=== PATIENT | female | born 1960 | race Caucasian/White ===

== ENCOUNTER → 2017-04-08 12:49 | Outpatient (CLI) | payer MEDICARE, MEDICAID, SELFPAY | PROVIDERS: Family Provider Family Medicine Geriatric Medicine; PCP Family Medicine Geriatric Medicine; Visit Provider Family Medicine Geriatric Medicine | DX: R50.9 Fever, unspecified (principal) | CPT/HCPCS: 87633 ==

== ENCOUNTER → 2017-05-05 13:38 | Outpatient (CLI) | payer MEDICARE, MEDICAID, SELFPAY ==
[2017-05-05 14:57] LABS: Absolute Lymphocyte Count 2.56 X10^3/ul (0.83-4.51); Absolute Neutrophil Count 7.3 X10^3/uL (2.0-7.7); Basophil# 0.05 X10^3/uL; Basophil% 0.4 % (0-1); Eosinophil# 0.42 X10^3/uL; Eosinophils% 3.8 % (0-5); Hematocrit 33.8 % (37-47); Hemoglobin 9.9 g/dl (12.0-15.0); Lymphocyte # 2.56 X10^3/ul (4.0); Mean Corp Hgb Conc 29.3 g/gl (32-36); Mean Corpuscular Hgb 23.1 pg (27.0-32.0); Mean Platelet Vol. 10.3 fl (6.2-12.0); Monocyte% 7.2 % (0-10); Neutrophil # 7.31 X10^3/uL (2.7-7.7); Neutrophil % 65.5 % (47-70); POSITIVE COUNT NO; POSITIVE DIFFERENTIAL NO; POSITIVE MORPHOLOGY NO; Platelet Count 463 K/mm3 (150-450); RBC Distribution Width CV 19.7 % (11.6-14.6); RBC Distribution Width SD 57.1 fl (35.1-43.9); Red Blood Count 4.28 M/mm3 (4.2-5.4); White Blood Count 11.2 K/mm3 (4.4-11.0)
[2017-05-05 15:18] LABS: Vitamin D,25 Hydroxy 23.8 ng/mL (29.95-100.01)
[2017-05-05 15:26] LABS: ALB/GLOB Ratio 0.6 RATIO (0.9-2.4); AST(SGOT) 22 U/L (15-37); Alanine Aminotransfer ALT/SGPT 22 U/L (13-56); Albumin, Serum 3.2 g/dL (3.2-5.0); Alkaline Phosphatase 143 U/L (45-117); Anion Gap 8 (5-15); BUN 13 mg/dL (7-18); BUN/Creat Ratio 23.8 RATIO (10-20); Calcium,Total 8.6 mg/dL (8.5-10.1); Chloride 105 mmol/L (98-107); Creatinine, Serum 0.55 mg/dL (0.55-1.02); EST Glomerular Filtration Rate 123 mL/min (>60); Est Glom Filt Rate - Afr Amer 148 mL/min (>60); Globulin 5.2 g/dL (2.2-4.2); Glucose 78 mg/dL (74-106); Protein, Total 8.4 g/dL (6.4-8.2); Sodium Level 139 mmol/L (136-145); Thyroid Stim Hormone (TSH) 2.62 uIU/mL (0.358-3.74)
== END ==
PROVIDERS: Family Provider Family Medicine Geriatric Medicine; PCP Family Medicine Geriatric Medicine; Visit Provider Family Medicine Geriatric Medicine
DX: R53.83 Other fatigue (principal); E55.9 Vitamin D deficiency, unspecified
CPT/HCPCS: 36415; 80053; 82306; 84443; 85025

== ENCOUNTER → 2017-05-13 17:36 | Outpatient (CLI) | payer MEDICARE, MEDICAID, SELFPAY ==
[2017-05-13 17:52] LABS: Color, Urine Yellow (Yellow); Glucose, Dipstick Normal (Normal); Ketone-Dipstick Negative (Negative); Leukocyte Esterase-Dipstick Negative /ul (Negative); Nitrite-Dipstick Negative (Negative); Occult Blood-Urine Negative /ul (Negative); Protein-Dipstick Negative (Negative); Specific Gravity, Urine 1.015 (1.002-1.030); Urine Bilirubin Dipstick Negative (Negative); Urine Clarity Clear (Clear); Urine Urobilinogen Normal (Normal)
== END ==
PROVIDERS: Family Provider Family Medicine Geriatric Medicine; PCP Family Medicine Geriatric Medicine; Visit Provider Family Medicine Geriatric Medicine
DX: N39.0 Urinary tract infection, site not specified (principal)
CPT/HCPCS: 81002

== ENCOUNTER 2017-05-19 16:18 | Inpatient (IN) | payer MEDICARE, MEDICAID, SELFPAY ==
[2017-05-19] VITALS (12 sets, daily range): BP systolic 122–170; BP diastolic 86–100; PULSE 106–128; RESP 20–30; TEMP 36.6–36.9; O2SAT 93–97; BMI 28.9
--- NOTE | 2017-05-19 17:08 | EKG12_ITS ---
Test Reason : Blood Pressure : / mmHG Vent. Rate : 108 BPM Atrial Rate : 108 BPM P-R Int : 114 ms QRS Dur : 072 ms QT Int : 340 ms P-R-T Axes : -10 049 021 degrees QTc Int : 455 ms Sinus tachycardia Otherwise normal ECG Confirmed by ALISHA LEVY, VANGIE ([id number]), editor & co founder CHRISTOPHER BOONE ([id number] on 05/21/2017 3:59:09 PM Referred By: Rocky Barlow Confirmed By:VANGIE BRITO MD
--- NOTE | 2017-05-19 17:09 | ED.VISSUMM ---
- ER Visit Summary Date of Service: 05/19/17 Chief Complaint: Shortness of breath, cough History of Present Illness: The patient is a 56 F presenting from a [place] [facility] for shortness of breath, cough. Staff noted wheezing and cough yesterday. She has not had a fever. She has had rhinorrhea. No known sick contacts. She has a history of cerebral palsy and is nonambulatory at baseline. History is limited at baseline. No vomiting. No other complaints. Physical Examination: Vitals are stable. Patient is afebrile. Alert no acute distress. HEENT exam is unremarkable. Pharynx is normal. Neck is supple. Lungs are wheezing diffusely Heart is regular and tachycardic Abdomen is soft nontender nondistended. Extremities are unremarkable. Skin is warm and dry. Remainder of exam is unremarkable. Emergency Department Course and Treatment: Patient is given albuterol, Atrovent. CBC shows a white count of 13.7, hemoglobin 10.1, platelets 463. Chemistries normal. Troponin is less than 0.02. EKG is sinus tachycardia rate of 108. Chest x-ray shows no acute process. On repeat evaluation and her caregiver states that she has been complaining about chest pain. CTA chest was obtained which shows no evidence of PE. Influenza was negative. She remains persistently tachycardic in the 120s-130s. Discussed with the hospitalist for observation. Disposition: Observation Impression: Chest pain, tachycardia This note was generated with [employer] dictation software. It may contain incorrect words, spelling, and punctuation that were not noted in review of the chart prior to signing ED Disposition - Plan for ED Patient: Disposition: [facility] Chief Complaint: Shortness of Breath
--- NOTE | 2017-05-19 17:30 | RAD_ITS ---
STUDY: X-RAY CHEST REASON FOR EXAM: Female, 56 years old. Shortness of breath, cough, and wheezing TECHNIQUE: Single AP portable view of the chest. COMPARISON: Previous study of 02/11/2017 FINDINGS: A medical and health services manager partially obscures the right lung base. There is a limited inspiration. There is no demonstrated pleural abnormality. Normal size heart. There is gaseous distention of the esophagus. Normal visualized pulmonary arteries. Normal visualized aortic arch and descending thoracic aorta. Normal visualized thoracic spine. Normal visualized ribs, clavicles, and shoulders. There is no demonstrated abnormality of the visualized soft tissue structures of the upper abdomen. RAD/Chest 1 View (Portable) IMPRESSION: Limited inspiration. Gaseous distention of the esophagus. No acute cardiopulmonary disease process is seen. Electronically Signed: Franko Cuellar MD at 17:55 EDT , Service support ,
[2017-05-19] MEDS: Albuterol 2.5 MG/3 ML VIAL.NEB. INHALATION ×3 (17:40)
[2017-05-19] MEDS: Ipratropium/Albuterol Sulfate 3 ML AMPUL.NEB INHALATION ×2 (17:40→22:32)
[2017-05-19 17:51] LABS: Absolute Lymphocyte Count 2.61 X10^3/ul (0.83-4.51); Absolute Neutrophil Count 10.1 X10^3/uL (2.0-7.7); Basophil# 0.05 X10^3/uL; Basophil% 0.4 % (0-1); Eosinophil# 0.21 X10^3/uL; Eosinophils% 1.5 % (0-5); Hemoglobin 10.1 g/dl (12.0-15.0); Lymphocyte # 2.61 X10^3/ul (4.0); Mean Corp Hgb Conc 29.7 g/gl (32-36); Mean Corpuscular Hgb 23.1 pg (27.0-32.0); Mean Corpuscular Volume 77.8 fL (81-99); Monocyte# 0.78 X10^3/uL; Monocyte% 5.7 % (0-10); Neutrophil # 10.06 X10^3/uL (2.7-7.7); Neutrophil % 73.3 % (47-70); Platelet Count 463 K/mm3 (150-450); RBC Distribution Width CV 18.6 % (11.6-14.6); RBC Distribution Width SD 53.2 fl (35.1-43.9); Red Blood Count 4.37 M/mm3 (4.2-5.4); White Blood Count 13.7 K/mm3 (4.4-11.0)
[2017-05-19 17:52] LABS: POSITIVE COUNT NO; POSITIVE DIFFERENTIAL NO; POSITIVE MORPHOLOGY NO
[2017-05-19 18:10] LABS: Anion Gap 7 (5-15); BUN 9 mg/dL (7-18); BUN/Creat Ratio 14.7 RATIO (10-20); Calcium,Total 8.7 mg/dL (8.5-10.1); Chloride 104 mmol/L (98-107); Creatinine, Serum 0.61 mg/dL (0.55-1.02); EST Glomerular Filtration Rate 108 mL/min (>60); Est Glom Filt Rate - Afr Amer 130 mL/min (>60); Estimated Creatinine Clearance 89.54 ml/min; Glucose 90 mg/dL (74-106); Potassium 3.9 mmol/L (3.5-5.1); Sodium Level 140 mmol/L (136-145)
--- NOTE | 2017-05-19 19:04 | CT_ITS ---
STUDY: CTA CHEST REASON FOR EXAM: Female, 56 years old. Shortness of breath cough wheezing elevated blood pressure RADIATION DOSAGE (If Supplied By Facility): CTDIvol = ( 12.29 ) mGy, DLP = ( 453.35 ) mGycm TECHNIQUE: The examination was performed with the intravenous administration of 75ML ml of Isovue 370 contrast material. Post-processing of the angiographic images was performed, with multiplanar reformation and 3D reconstruction. Individualized dose optimization techniques were used for this CT. COMPARISON: None. FINDINGS: A pacemaker is seen in the right chest subcutaneous fat. Normal enhancement of the main pulmonary artery and right and left pulmonary arteries. Normal enhancement of the bilateral peripheral pulmonary arteries. There is no demonstrated pulmonary embolism. Normal thoracic aorta and visualized great vessels. There is no demonstrated aortic dissection. There is mild cardiomegaly. Coronary arterial calcifications are present. There is no pericardial effusion. Normal mediastinum. Normal hilar regions. There is a large hiatal hernia located to the right of midline. There is dilatation of the esophagus. Normal visualized trachea and bronchi. The lungs are well expanded. Normal pulmonary parenchyma. Normal pleura. Normal chest wall structures. Normal osseous structures. There is a large amount of stool in the colon. CT/CTA Chest W/WO Contrast IMPRESSION: Normal CTA chest examination, without a demonstrated pulmonary embolism or arterial dissection. Right-sided pacemaker noted. Coronary arterial calcifications are present. Large hiatal hernia located to the right of midline. Dilatation of the esophagus. Electronically Signed: Franko Cuellar MD at 20:09 EDT , Service support ,
--- NOTE | 2017-05-19 20:48 | HP.PCM_ITS ---
Problem List (1) Cerebral palsy Status: Chronic (2) Shortness of breath Status: Acute (3) Tachycardia Status: Acute History of Present Illness Date of Admission: 05/19/17 Chief Complaint: shortness of breath The patient is a 56 year old F [] Past Medical History Past Medical History (Chronic Problems): Chronic Problems Cerebral palsy (Chronic) Allergies amoxicillin trihydrate [From Augmentin] Adverse Reaction (Verified 09/13/15 21: 52) Unknown potassium clavulanate [From Augmentin] Adverse Reaction (Verified 09/13/15 21:52 ) Unknown Home Medications: Ambulatory Orders Medication Instructions Recorded Lactulose 30 ml PO BID 09/10/14 Levothyroxine [Synthroid] 50 mcg PO DAILY 09/10/14 Loratadine [Claritin] 10 mg PO DAILY 09/10/14 Melatonin/Pyridoxine [Melatonin 3 4.5 tab PO QHS 09/10/14 mg Tablet] Omeprazole [Prilosec] 20 mg PO DAILY 09/10/14 Senna [Senokot] 1 tablet PO BID 04/20/15 Citalopram Hydrobromide [Celexa] 20 mg PO DAILY 05/19/17 Citalopram [Celexa] 10 mg PO DAILY 05/19/17 Surgical History: no surgical history Smoking Status: Never smoker - *Family History Maternal History Items: No pertinent history Review of Systems Constitutional: Denies: Chills, Fever, Weight Change HEENT: Denies: Head Aches, Sinus Congestion, Sinus Drainage Cardiovascular: Denies: Chest Pain, Palpitations Respiratory: Denies: Cough, Shortness of breath at rest, Sputum production Gastrointestinal: Denies: Abdominal Pain, Nausea, Vomiting Genitourinary: Denies: Dysuria Musculoskeletal: Denies: Joint Pain, Joint Tenderness Skin: Denies: Rash, Wounds Neurological: Denies: Numbness, Tingling, Focal weakness Psychiatric: Denies: Anxiety, Depression, Homicidal Ideations, Suicidal Ideations Hematologic/ Lymphatic: Denies: Easy Bruising, Easy Bleeding Unable to obtain accurate/complete ROS d/t: patient is unable to communicate due to CP VTE Information - Inpt Only VTE Present on Admission: No VTE Mechan Device Prophylaxis: None VTE Pharm Prophylaxis ordered?: Yes Patient Problems: Active and Suspected Problems Shortness of breath (Acute) Tachycardia (Acute) - Physical Exam General: Alert, Cooperative HEENT: Atraumatic, Normocephalic Neck: Supple Lungs: Normal air movement, No wheeze, No rales, Diminished, Tachypneic, Wheezes Cardiovascular: Regular rate, Normal S1, Normal S2, No murmurs, Tachycardic Abdomen: Bowel Sounds Present, Soft, Non Tender Extremities: No edema, Capillary Refill Less than 3 Seconds Skin: No rashes, No breakdown Musculoskeletal: No Tenderness to Palpation of Joints or Extremities Neurological: - - patient has CP Psych/Mental Status: Anxious Vital Signs Temp Pulse Resp BP Pulse Ox 97.9 F 120 H 28 H 170/92 H 93 05/19/17 16:19 05/19/17 20:27 05/19/17 20:27 05/19/17 18:57 05/19/17 20:27 Oxygen Delivery Method Room Air Weight: 120 lb Body Mass Index (BMI) 30.0 Microbiology Past 72 Hours 05/19/17 17:25 Influenza Types A,B Direct FA (DENY) - Final Mucosa - Nasopharyngeal Laboratory Tests Past 24 Hrs 05/19/17 05/19/17 17:20 17:20 WBC 13.7 H RBC 4.37 Hgb 10.1 L Hct 34.0 L MCV 77.8 L MCH 23.1 L MCHC 29.7 L RDW 18.6 H RDW Differential 53.2 H Plt Count 463 H MPV 10.0 Immature Gran % (Auto) 0.100 Neut % (Auto) 73.3 H Lymph % (Auto) 19.0 [place] % (Auto) 5.7 Eos % (Auto) 1.5 Baso % (Auto) 0.4 Absolute Neuts (auto) 10.1 H Absolute Lymphs (auto) 2.61 Total Counted Not Reportable Sodium 140 Potassium 3.9 Chloride 104 Carbon Dioxide 29.0 Anion Gap 7 BUN 9 Creatinine 0.61 Estim Creat Clear Calc 89.54 Est GFR (MDRD) Af Amer 130 Est GFR (MDRD) Non-Af 108 BUN/Creatinine Ratio 14.7 Glucose 90 Calcium 8.7 Troponin I < 0.02 Assessment/Plan Active and Suspected Problems Shortness of breath (Acute) Tachycardia (Acute) Chronic conditions -Cerebral Palsy - History of Pacemaker Plan - admit to progressive care unit - cycle cardiac markers - treat upper respiratory bronchitis with levaquin - aspirin po q day - interrogate Pacemaker battery - if remains tachycardic then consult cardiology in am - LMWH for DVT prophylaxis - oxygen per protocol - Duoneb inh q 4 hrs prn
[2017-05-19] MEDS: Lactulose 20 GM/30 ML UDC PO (23:01)
[2017-05-19] MEDS: 0.9% NaCl Peripheral Flush Adult/Peds IV (23:01)
[2017-05-19] MEDS: Mirtazapine 15 MG Tablet 7.5 MG PO (23:01)
[2017-05-19] MEDS: Senna Tablet 1 TABLET PO (23:01)
[2017-05-19] MEDS: MELATONIN 3 MG TABLET 4.5 MG PO (23:02)
[2017-05-20] VITALS (13 sets, daily range): BP systolic 99–141; BP diastolic 60–77; PULSE 77–110; RESP 16–20; TEMP 36.4–36.7; O2SAT 94–97
[2017-05-20 04:29] LABS: Absolute Lymphocyte Count 2.11 X10^3/ul (0.83-4.51); Absolute Neutrophil Count 5.9 X10^3/uL (2.0-7.7); Basophil# 0.04 X10^3/uL; Basophil% 0.4 % (0-1); Eosinophil# 0.24 X10^3/uL; Eosinophils% 2.6 % (0-5); Hematocrit 29.1 % (37-47); Hemoglobin 8.8 g/dl (12.0-15.0); Lymphocyte # 2.11 X10^3/ul (4.0); Lymphocyte % 23.3 % (19-41); Mean Corp Hgb Conc 30.2 g/gl (32-36); Mean Corpuscular Hgb 23.6 pg (27.0-32.0); Mean Platelet Vol. 10.3 fl (6.2-12.0); Monocyte# 0.77 X10^3/uL; Monocyte% 8.5 % (0-10); Neutrophil # 5.89 X10^3/uL (2.7-7.7); Platelet Count 399 K/mm3 (150-450); RBC Distribution Width CV 18.7 % (11.6-14.6); RBC Distribution Width SD 50.9 fl (35.1-43.9); Red Blood Count 3.73 M/mm3 (4.2-5.4); White Blood Count 9.1 K/mm3 (4.4-11.0)
[2017-05-20 04:39] LABS: POSITIVE COUNT NO; POSITIVE DIFFERENTIAL NO; POSITIVE MORPHOLOGY NO
[2017-05-20 04:56] LABS: ALB/GLOB Ratio 0.6 RATIO (0.9-2.4); AST(SGOT) 12 U/L (15-37); Alanine Aminotransfer ALT/SGPT 14 U/L (13-56); Albumin, Serum 2.9 g/dL (3.2-5.0); Alkaline Phosphatase 121 U/L (45-117); Anion Gap 10 (5-15); BUN 8 mg/dL (7-18); BUN/Creat Ratio 14.2 RATIO (10-20); Calcium,Total 8.4 mg/dL (8.5-10.1); Chloride 107 mmol/L (98-107); Cholesterol 204 mg/dL (200); Creatinine, Serum 0.56 mg/dL (0.55-1.02); EST Glomerular Filtration Rate 118 mL/min (>60); Est Glom Filt Rate - Afr Amer 143 mL/min (>60); Estimated Creatinine Clearance 93.72 ml/min; Globulin 4.5 g/dL (2.2-4.2); Glucose 92 mg/dL (74-106); High Density Lipoprotein 65 mg/dL; Magnesium 2.3 mg/dL (1.6-2.6); Potassium 3.9 mmol/L (3.5-5.1); Protein, Total 7.4 g/dL (6.4-8.2); Sodium Level 142 mmol/L (136-145); Thyroid Stim Hormone (TSH) 2.22 uIU/mL (0.358-3.74); Triglycerides 39 mg/dL; Very Low Density Lipoprotein 8 mg/dL (5-40)
[2017-05-20] MEDS: Levothyroxine 50 MCG Tablet PO (05:05)
[2017-05-20] MEDS: Ipratropium/Albuterol Sulfate 3 ML AMPUL.NEB INHALATION ×4 (06:44→19:36)
--- NOTE | 2017-05-20 08:40 | CASEMGMT ---
SW reviewed chart and noted patient is from a [facility]. SW will make contact with the [facility] regarding return when ready. Carleen BOWENS MSW
--- NOTE | 2017-05-20 10:12 | CASEMGMT ---
MARIANNE called [facility] and spoke with Raven. She said it is fine for patient to return when she is ready. She said they will transport, [facility] just need to call [phone]. She also said they will need a discharge summary when they pick her up. Plan: d/c back to [facility] when ready. Carleen BOWENS MSW
[2017-05-20] MEDS: Pantoprazole Sodium 20 MG Tablet PO (10:17)
[2017-05-20] MEDS: Senna Tablet 1 TABLET PO (10:17)
[2017-05-20] MEDS: 0.9% NaCl Peripheral Flush Adult/Peds IV (10:17)
[2017-05-20] MEDS: Loratadine 10 MG Tablet PO (10:17)
[2017-05-20] MEDS: FLUoxetine 10 MG Capsule PO (10:17)
[2017-05-20] MEDS: Lactulose 20 GM/30 ML UDC PO (10:17)
[2017-05-20] MEDS: Enoxaparin 40 MG/0.4 ML Syringe SC (10:17)
[2017-05-20] MEDS: Aspirin E.C. 81 MG Tablet PO (10:17)
--- NOTE | 2017-05-20 13:44 | PCM.PROGNOTE ---
Patient Problems: Active and Suspected Problems Shortness of breath (Acute) Tachycardia (Acute) Subjective: Patient is a 56-year-old female who [facility]. Her past medical history is significant for cerebral palsy, hypothyroidism, GERD, depression and allergic rhinitis. He was brought to the emergency room on 05/19/2017 complaining of cough and shortness of breath. She later complained of chest pain as well. No signs of presentation to the emergency room were temperature 97.9, pulse rate 106, blood pressure 159/100, respiratory rate 24 and she was 97% saturated on room air. Lab revealed an elevated white blood cell count at 13.7 with a hemoglobin of 10.1. MCV was low at 77.8 and the RDW is increased at 18.6. Platelets were elevated at 463,000. BMP was unremarkable and troponin was less than 0.02. Chest x-ray showed no infiltrates but did show gaseous distention of the esophagus. A CTA of the chest was done which showed no pulmonary emboli but does show a dilated esophagus with a large hiatal hernia. A large amount of stool in the colon with gaseous distention of the colon. Influenza swab was negative. She was admitted to a monitored bed on PCU with a dx of SOB and CP. Her family and her director of casework tell me that she coughs when she eats and drinks. She has had lip smacking for as long as they can remember. she had an appt at the [facility] main campus yesterday with a Dr. Fuller.....peds division? She has been scheduled to meet with a Movie Machine Operator but, not until July. She has never had an EGD. Her speech is very difficult to understand but she can nod appropriately and understands well. Able to follow commands. Her mother is the POA and she lives in a NH. She has been losing weight recently. No vomiting. They tell me that she is allergic to PCN but, no one knows the reaction. - Physical Exam General: Alert, Cooperative, - - lip smacking HEENT: PERRLA Oral: Moist Mucosa Neck: Negative Carotid Bruits, No Nodes, Trachea Midline Lungs: Clear to auscultation - anterior and lateral Cardiovascular: Regular Rhythm, Normal S1, Normal S2, No Gallop, Tachycardic Abdomen: Soft, Non-Distended, Hypoactive Bowel Sounds, - - no guarding with palpation Extremities: No clubbing, No cyanosis, No edema Skin: No rashes Neurological: - - lip smacking, abnormal head and arm movements, sppech is unintelligible at times, some drooling Vital Signs Temp Pulse Resp BP Pulse Ox 97.6 F L 99 16 119/71 97 05/20/17 09:53 05/20/17 10:56 05/20/17 10:38 05/20/17 09:53 05/20/17 09:53 Oxygen Delivery Method Room Air Weight: 115 lb 4.828 oz Intake and Output for Last 24 Hours 05/18/17 05/19/17 05/20/17 23:59 23:59 23:59 Intake Total 129 / 129 Balance 129 / 129 Laboratory Tests Past 24 Hrs 05/19/17 05/20/17 05/20/17 22:47 03:44 03:44 WBC 9.1 RBC 3.73 L Hgb 8.8 L Hct 29.1 L MCV 78.0 L MCH 23.6 L MCHC 30.2 L RDW 18.7 H RDW Differential 50.9 H Plt Count 399 MPV 10.3 Immature Gran % (Auto) 0.200 Neut % (Auto) 65.0 Lymph % (Auto) 23.3 [place] % (Auto) 8.5 Eos % (Auto) 2.6 Baso % (Auto) 0.4 Absolute Neuts (auto) 5.9 Absolute Lymphs (auto) 2.11 Total Counted Not Reportable Sodium 142 Potassium 3.9 Chloride 107 Carbon Dioxide 25.0 Anion Gap 10 BUN 8 Creatinine 0.56 Estim Creat Clear Calc 93.72 Est GFR (MDRD) Af Amer 143 Est GFR (MDRD) Non-Af 118 BUN/Creatinine Ratio 14.2 Glucose 92 Calcium 8.4 L Magnesium 2.3 Total Bilirubin 0.40 AST 12 L ALT 14 Alkaline Phosphatase 121 H Troponin I < 0.02 Total Protein 7.4 Albumin 2.9 L Globulin 4.5 H Albumin/Globulin Ratio 0.6 L Triglycerides 39 Cholesterol 204 H LDL Cholesterol 131 H VLDL Cholesterol 8 HDL Cholesterol 65 TSH 2.22 05/20/17 05/20/17 05/20/17 03:44 06:10 12:05 WBC RBC Hgb Hct MCV MCH MCHC RDW RDW Differential Plt Count MPV Immature Gran % (Auto) Neut % (Auto) Lymph % (Auto) [place] % (Auto) Eos % (Auto) Baso % (Auto) Absolute Neuts (auto) Absolute Lymphs (auto) Total Counted Sodium Potassium Chloride Carbon Dioxide Anion Gap BUN Creatinine Estim Creat Clear Calc Est GFR (MDRD) Af Amer Est GFR (MDRD) Non-Af BUN/Creatinine Ratio Glucose Calcium Magnesium Total Bilirubin AST ALT Alkaline Phosphatase Troponin I < 0.02 < 0.02 < 0.02 Total Protein Albumin Globulin Albumin/Globulin Ratio Triglycerides Cholesterol LDL Cholesterol VLDL Cholesterol HDL Cholesterol TSH Assessment/Plan Active and Suspected Problems Shortness of breath (Acute) Tachycardia (Acute) Impressions 1. SOB and CP - in a pt with CP and severe esophageal dilatation with debris in the distal esophagus - suspect aspiration. Etiology of esophageal dilatation unknown at this time......differential would include achalasia, esophageal obstruction - food, tumor? Dr. Ferris has been consulted for an EGD. Will add clindamycin to the Levaquin to cover for aspiration. ST evaluation.....if she has no dysphagia and she can start on a diet consider a barium esophagram. 2. CP - lives [facility] a jail 3. Very poor oral care.....has decayed and broken off teeth 4. microcytic anemia - iron studies reveal a ferritin of only 7. Source of chronic blood loss not clear at this time. Since she is NPO will give Iron Sucrose IV. Check a hemoccult stool. May need a colonoscopy also. Start a PPI IV BID. 5. Constipation 6. Hypothyroidism 7. Large hiatal hernia with gastroesophageal reflux disease 8. Depression 9. Allergic rhinitis NPO consult Dr. Barrington Martinez now since the Dulcolax suppository did not work Recheck Lab and a CXR in the AM Add Clindamycin for suspected Aspiration ST eval for swallowing Will need to see a dentist in the future to have the rotted broken teeth removed....also a source of chronic aspiration and infection Code Visit Inpatient E&M: 49525 Subs Hosp L3
--- NOTE | 2017-05-20 13:53 | PN_ITS ---
Patient Problems: Active and Suspected Problems Shortness of breath (Acute) Tachycardia (Acute) Subjective: Patient is a 56-year-old female who is a resident of a [place] [facility]. Her past medical history is significant for cerebral palsy, hypothyroidism, GERD, depression and allergic rhinitis. He was brought to the emergency room on 2017 complaining of cough and shortness of breath. She later complained of chest pain as well. No signs of presentation to the emergency room were temperature 97.9, pulse rate 106, blood pressure 159/100, respiratory rate 24 and she was 97% saturated on room air. Lab revealed an elevated white blood cell count at 13.7 with a hemoglobin of 10.1. MCV was low at 77.8 and the RDW is increased at 18.6. Platelets were elevated at 463,000. BMP was unremarkable and troponin was less than 0.02. Chest x-ray showed no infiltrates but did show gaseous distention of the esophagus. A CTA of the chest was done which showed no pulmonary emboli but does show a dilated esophagus with a large hiatal hernia. A large amount of stool in the colon with gaseous distention of the colon. Influenza swab was negative. She was admitted to a monitored bed on PCU with a dx of SOB and CP. Her family and her block and case maker tell me that she coughs when she eats and drinks. She has had lip smacking for as long as they can remember. she had an appt at the [facility] main campus yesterday with a Dr. Fuller.....peds division? She has been scheduled to meet with a Music Therapy Teacher but, not until July. She has never had an EGD. Her speech is very difficult to understand but she can nod appropriately and understands well. Able to follow commands. Her mother is the POA and she lives in a NH. She has been losing weight recently. No vomiting. They tell me that she is allergic to PCN but, no one knows the reaction. - Physical Exam General: Alert, Cooperative, - - lip smacking HEENT: PERRLA Oral: Moist Mucosa Neck: Negative Carotid Bruits, No Nodes, Trachea Midline Lungs: Clear to auscultation - anterior and lateral Cardiovascular: Regular Rhythm, Normal S1, Normal S2, No Gallop, Tachycardic Abdomen: Soft, Non-Distended, Hypoactive Bowel Sounds, - - no guarding with palpation Extremities: No clubbing, No cyanosis, No edema Skin: No rashes Neurological: - - lip smacking, abnormal head and arm movements, sppech is unintelligible at times, some drooling Vital Signs Temp Pulse Resp BP Pulse Ox 97.6 F L 99 16 119/71 97 05/20/17 09:53 05/20/17 10:56 05/20/17 10:38 05/20/17 09:53 05/20/17 09:53 Oxygen Delivery Method Room Air Weight: 115 lb 4.828 oz Intake and Output for Last 24 Hours 05/18/17 05/19/17 05/20/17 23:59 23:59 23:59 Intake Total 129 / 129 Balance 129 / 129 Laboratory Tests Past 24 Hrs 05/19/17 05/20/17 05/20/17 22:47 03:44 03:44 WBC 9.1 RBC 3.73 L Hgb 8.8 L Hct 29.1 L MCV 78.0 L MCH 23.6 L MCHC 30.2 L RDW 18.7 H RDW Differential 50.9 H Plt Count 399 MPV 10.3 Immature Gran % (Auto) 0.200 Neut % (Auto) 65.0 Lymph % (Auto) 23.3 [place] % (Auto) 8.5 Eos % (Auto) 2.6 Baso % (Auto) 0.4 Absolute Neuts (auto) 5.9 Absolute Lymphs (auto) 2.11 Total Counted Not Reportable Sodium 142 Potassium 3.9 Chloride 107 Carbon Dioxide 25.0 Anion Gap 10 BUN 8 Creatinine 0.56 Estim Creat Clear Calc 93.72 Est GFR (MDRD) Af Amer 143 Est GFR (MDRD) Non-Af 118 BUN/Creatinine Ratio 14.2 Glucose 92 Calcium 8.4 L Magnesium 2.3 Total Bilirubin 0.40 AST 12 L ALT 14 Alkaline Phosphatase 121 H Troponin I < 0.02 Total Protein 7.4 Albumin 2.9 L Globulin 4.5 H Albumin/Globulin Ratio 0.6 L Triglycerides 39 Cholesterol 204 H LDL Cholesterol 131 H VLDL Cholesterol 8 HDL Cholesterol 65 TSH 2.22 05/20/17 05/20/17 05/20/17 03:44 06:10 12:05 WBC RBC Hgb Hct MCV MCH MCHC RDW RDW Differential Plt Count MPV Immature Gran % (Auto) Neut % (Auto) Lymph % (Auto) [place] % (Auto) Eos % (Auto) Baso % (Auto) Absolute Neuts (auto) Absolute Lymphs (auto) Total Counted Sodium Potassium Chloride Carbon Dioxide Anion Gap BUN Creatinine Estim Creat Clear Calc Est GFR (MDRD) Af Amer Est GFR (MDRD) Non-Af BUN/Creatinine Ratio Glucose Calcium Magnesium Total Bilirubin AST ALT Alkaline Phosphatase Troponin I < 0.02 < 0.02 < 0.02 Total Protein Albumin Globulin Albumin/Globulin Ratio Triglycerides Cholesterol LDL Cholesterol VLDL Cholesterol HDL Cholesterol TSH Assessment/Plan Active and Suspected Problems Shortness of breath (Acute) Tachycardia (Acute) Impressions 1. SOB and CP - in a pt with CP and severe esophageal dilatation with debris in the distal esophagus - suspect aspiration. Etiology of esophageal dilatation unknown at this time......differential would include achalasia, esophageal obstruction - food, tumor? Dr. Ferris has been consulted for an EGD. Will add clindamycin to the Levaquin to cover for aspiration. ST evaluation.....if she has no dysphagia and she can start on a diet consider a barium esophagram. 2. CP - lives [place] [facility] [place] 3. Very poor oral care.....has decayed and broken off teeth 4. microcytic anemia - iron studies reveal a ferritin of only 7. Source of chronic blood loss not clear at this time. Since she is NPO will give Iron Sucrose IV. Check a hemoccult stool. May need a colonoscopy also. Start a PPI IV BID. 5. Constipation 6. Hypothyroidism 7. Large hiatal hernia with gastroesophageal reflux disease 8. Depression 9. Allergic rhinitis NPO consult Dr. Barrington Martinez now since the Dulcolax suppository did not work Recheck Lab and a CXR in the AM Add Clindamycin for suspected Aspiration ST eval for swallowing Will need to see a dentist in the future to have the rotted broken teeth removed....also a source of chronic aspiration and infection Code Visit Inpatient E&M: 64442 Subs Hosp L3
[2017-05-20 14:28] LABS: Ferritin 7 ng/mL (8-252); Iron 55 ug/dL (50-170); Iron Binding Capacity,Total 483 ug/dL (250-450); PERCENT IRON SATURATION 11.4 % (15.0-55.0)
[2017-05-20] MEDS: Bisacodyl 10 MG Suppository RECTAL (14:29)
[2017-05-20 14:42] LABS: Immature Platelet Fraction 1.9 % (1.0-7.9); RET-HE 22.8 pg (30-35); Reticulocyte Count 0.95 % (0.5-1.5)
[2017-05-20 18:12] LABS: M R Staph aureus DNA By PCR Negative (Negative); Probe Check PASS; Specimen Processing Control PASS
[2017-05-20] MEDS: Fleet Enema 1 ML RECTAL (23:05)
[2017-05-21] VITALS (18 sets, daily range): BP systolic 109–132; BP diastolic 44–80; PULSE 77–104; RESP 16–22; TEMP 36.3–37.1; O2SAT 94–96
--- NOTE | 2017-05-21 05:55 | RAD_ITS ---
STUDY: X-RAY CHEST REASON FOR EXAM: Female, 56 years old. Cough, shortness of breath, history of cerebral palsy. TECHNIQUE: Single AP portable view of the chest. COMPARISON: 05/19/2017 chest x-ray and CT chest FINDINGS: Stable electronic type device over right base and hemithorax. There are superimposed monitor leads. Resolution of esophageal distention. No change of shallow inspiratory level. There is no focal parenchymal abnormality. There is no demonstrated pleural abnormality. Normal size heart. Normal mediastinum and shanell. Normal visualized pulmonary arteries. Normal visualized aortic arch and descending thoracic aorta. Normal visualized thoracic spine. Normal visualized ribs, clavicles, and shoulders. There is no demonstrated abnormality of the visualized soft tissue structures of the upper abdomen. RAD/Chest 1 View (Portable) IMPRESSION: No pulmonary edema, congestive heart failure or confluent pneumonia. Resolution of previous esophageal distention. Electronically Signed: Yessica Hernandez MD at 6:42 EDT , Service support ,
[2017-05-21 05:57] LABS: Absolute Neutrophil Count 4.3 X10^3/uL (2.0-7.7); Basophil# 0.06 X10^3/uL; Basophil% 0.7 % (0-1); Eosinophil# 0.33 X10^3/uL; Eosinophils% 4.1 % (0-5); Hematocrit 31.9 % (37-47); Hemoglobin 9.7 g/dl (12.0-15.0); Lymphocyte % 29.7 % (19-41); Mean Corp Hgb Conc 30.4 g/gl (32-36); Mean Corpuscular Hgb 23.9 pg (27.0-32.0); Mean Corpuscular Volume 78.6 fL (81-99); Mean Platelet Vol. 10.3 fl (6.2-12.0); Monocyte% 12.4 % (0-10); Neutrophil # 4.27 X10^3/uL (2.7-7.7); Platelet Count 409 K/mm3 (150-450); RBC Distribution Width CV 19.1 % (11.6-14.6); RBC Distribution Width SD 52.4 fl (35.1-43.9); Red Blood Count 4.06 M/mm3 (4.2-5.4); White Blood Count 8.1 K/mm3 (4.4-11.0)
[2017-05-21 06:03] LABS: Anion Gap 8 (5-15); BUN 11 mg/dL (7-18); BUN/Creat Ratio 17.8 RATIO (10-20); Chloride 107 mmol/L (98-107); Creatinine, Serum 0.62 mg/dL (0.55-1.02); EST Glomerular Filtration Rate 106 mL/min (>60); Est Glom Filt Rate - Afr Amer 128 mL/min (>60); Estimated Creatinine Clearance 84.65 ml/min; Glucose 92 mg/dL (74-106); Magnesium 2.4 mg/dL (1.6-2.6); Phosphorus 3.8 mg/dL (2.5-4.9); Potassium 4.3 mmol/L (3.5-5.1); Sodium Level 142 mmol/L (136-145)
[2017-05-21 06:11] LABS: POSITIVE COUNT NO; POSITIVE DIFFERENTIAL NO; POSITIVE MORPHOLOGY NO
[2017-05-21] MEDS: Ipratropium/Albuterol Sulfate 3 ML AMPUL.NEB INHALATION ×3 (06:57→19:55)
--- NOTE | 2017-05-21 09:17 | PCM.CONS.GEN ---
Problem List (1) Cerebral palsy Status: Chronic Reason for Consult Date of Consultation: 05/20/17 History of Present Illness: The patient is a 56 year old F with a history of cerebral palsy, some communicative difficulties, but understands and can answer. Patient seen with caregivers present and spoke with the son via the phone. The patient has a long standing history of chest pain and likely reflux symptoms. More recently, [facility], but the family is uncertain if this is correct. She was seen by Dr. Fuller at [facility] in the bariatric/foregut surgery department on May 19, 2017. SHe has a diagnosis of hiatal hernia and esophageal dysphagia. There is an obvious concern for aspiration. It was felt that she would be at high risk for hiatal hernia surgery and given the degree of esophageal dilation, concern for aspiration and esophageal motility disorder was considered. It was recommended not to have surgical intervention and to refer to GI swallowing center for further work up. She then presented with chest pain. CTA Chest demonstrated no PE but a large hiatal hernia and a dilated esophagus. She underwent a swallowing evaluation today without significant aspiration Past Medical History Past Medical History (Chronic Problems): Chronic Problems Cerebral palsy (Chronic) Allergies amoxicillin trihydrate [From Augmentin] Adverse Reaction (Verified 09/13/15 21:52) Unknown potassium clavulanate [From Augmentin] Adverse Reaction (Verified 09/13/15 21:52) Unknown Home Medications: Ambulatory Orders Medication Instructions Recorded Lactulose 30 ml PO BID 09/10/14 Levothyroxine [Synthroid] 50 mcg PO DAILY 09/10/14 Loratadine [Claritin] 10 mg PO DAILY 09/10/14 Melatonin/Pyridoxine [Melatonin 3 4.5 mg PO QHS 09/10/14 mg Tablet] Omeprazole [Prilosec] 20 mg PO DAILY 09/10/14 Senna [Senokot] 1 tablet PO BID 04/20/15 Fluoxetine [Prozac] 10 mg PO DAILY 05/19/17 Mirtazapine 7.5 mg PO QHS 05/19/17 Surgical History: no surgical history Smoking Status: Never smoker - *Family History Maternal History Items: No pertinent history Patient Problems: Active and Suspected Problems Shortness of breath (Acute) Tachycardia (Acute) - Physical Exam General: Alert, Oriented x3, Cooperative, - - but difficult to communicate due to CP - answers yes and no questions Lungs: Clear to auscultation, Normal air movement Cardiovascular: Regular rate, Regular Rhythm Abdomen: Bowel Sounds Present, Soft, Non Tender Vital Signs Temp Pulse Resp BP Pulse Ox 97.3 F L 77 18 109/80 94 05/21/17 05:21 05/21/17 07:11 05/21/17 09:11 05/21/17 05:21 05/21/17 07:30 Oxygen Delivery Method Room Air Intake and Output for Last 24 Hours 05/19/17 05/20/17 05/21/17 23:59 23:59 23:59 Intake Total 366 / 366 Balance 366 / 366 Laboratory Tests Past 24 Hrs 05/20/17 05/21/17 05/21/17 14:47 05:05 05:05 WBC 8.1 RBC 4.06 L Hgb 9.7 L Hct 31.9 L MCV 78.6 L MCH 23.9 L MCHC 30.4 L RDW 19.1 H RDW Differential 52.4 H Plt Count 409 MPV 10.3 Immature Gran % (Auto) 0.100 Neut % (Auto) 53.0 Lymph % (Auto) 29.7 [place] % (Auto) 12.4 H Eos % (Auto) 4.1 Baso % (Auto) 0.7 Absolute Neuts (auto) 4.3 Absolute Lymphs (auto) 2.40 Total Counted Not Reportable Sodium 142 Potassium 4.3 Chloride 107 Carbon Dioxide 27.0 Anion Gap 8 BUN 11 Creatinine 0.62 Estim Creat Clear Calc 84.65 Est GFR (MDRD) Af Amer 128 Est GFR (MDRD) Non-Af 106 BUN/Creatinine Ratio 17.8 Glucose 92 Calcium 9.0 Phosphorus 3.8 Magnesium 2.4 MRSA (PCR) Negative Assessment/Plan Active and Suspected Problems Shortness of breath (Acute) Tachycardia (Acute) dysphagia, weight loss, abnormal GI tract imaging, no aspiration I plan to perform upper endoscopy. THe family understands the risks, benefits possible complications and alternatives. I will not plan for PEG tube at this time. patient may need manometry.
--- NOTE | 2017-05-21 09:22 | CON.PCM_ITS ---
Problem List (1) Cerebral palsy Status: Chronic Reason for Consult Date of Consultation: 05/20/17 History of Present Illness: The patient is a 56 year old F with a history of cerebral palsy, some communicative difficulties, but understands and can answer. Patient seen with caregivers present and spoke with the son via the phone. The patient has a long standing history of chest pain and likely reflux symptoms. More recently, she has seemed to have [facility] loss [facility] the [facility], but the family is uncertain if this is correct. She was seen by Dr. Fuller at [facility] in the bariatric/foregut surgery department on May 19, 2017. SHe has a diagnosis of hiatal hernia and esophageal dysphagia. There is an obvious concern for aspiration. It was felt that she would be at high risk for hiatal hernia surgery and given the degree of esophageal dilation, concern for aspiration and esophageal motility disorder was considered. It was recommended not to have surgical intervention and to refer to GI swallowing center for further work up. She then presented with chest pain. CTA Chest demonstrated no PE but a large hiatal hernia and a dilated esophagus. She underwent a swallowing evaluation today without significant aspiration Past Medical History Past Medical History (Chronic Problems): Chronic Problems Cerebral palsy (Chronic) Allergies amoxicillin trihydrate [From Augmentin] Adverse Reaction (Verified 09/13/15 21: 52) Unknown potassium clavulanate [From Augmentin] Adverse Reaction (Verified 09/13/15 21:52 ) Unknown Home Medications: Ambulatory Orders Medication Instructions Recorded Lactulose 30 ml PO BID 09/10/14 Levothyroxine [Synthroid] 50 mcg PO DAILY 09/10/14 Loratadine [Claritin] 10 mg PO DAILY 09/10/14 Melatonin/Pyridoxine [Melatonin 3 4.5 mg PO QHS 09/10/14 mg Tablet] Omeprazole [Prilosec] 20 mg PO DAILY 09/10/14 Senna [Senokot] 1 tablet PO BID 04/20/15 Fluoxetine [Prozac] 10 mg PO DAILY 05/19/17 Mirtazapine 7.5 mg PO QHS 05/19/17 Surgical History: no surgical history Smoking Status: Never smoker - *Family History Maternal History Items: No pertinent history Patient Problems: Active and Suspected Problems Shortness of breath (Acute) Tachycardia (Acute) - Physical Exam General: Alert, Oriented x3, Cooperative, - - but difficult to communicate due to CP - answers yes and no questions Lungs: Clear to auscultation, Normal air movement Cardiovascular: Regular rate, Regular Rhythm Abdomen: Bowel Sounds Present, Soft, Non Tender Vital Signs Temp Pulse Resp BP Pulse Ox 97.3 F L 77 18 109/80 94 05/21/17 05:21 05/21/17 07:11 05/21/17 09:11 05/21/17 05:21 05/21/17 07:30 Oxygen Delivery Method Room Air Intake and Output for Last 24 Hours 05/19/17 05/20/17 05/21/17 23:59 23:59 23:59 Intake Total 366 / 366 Balance 366 / 366 Laboratory Tests Past 24 Hrs 05/20/17 05/21/17 05/21/17 14:47 05:05 05:05 WBC 8.1 RBC 4.06 L Hgb 9.7 L Hct 31.9 L MCV 78.6 L MCH 23.9 L MCHC 30.4 L RDW 19.1 H RDW Differential 52.4 H Plt Count 409 MPV 10.3 Immature Gran % (Auto) 0.100 Neut % (Auto) 53.0 Lymph % (Auto) 29.7 [place] % (Auto) 12.4 H Eos % (Auto) 4.1 Baso % (Auto) 0.7 Absolute Neuts (auto) 4.3 Absolute Lymphs (auto) 2.40 Total Counted Not Reportable Sodium 142 Potassium 4.3 Chloride 107 Carbon Dioxide 27.0 Anion Gap 8 BUN 11 Creatinine 0.62 Estim Creat Clear Calc 84.65 Est GFR (MDRD) Af Amer 128 Est GFR (MDRD) Non-Af 106 BUN/Creatinine Ratio 17.8 Glucose 92 Calcium 9.0 Phosphorus 3.8 Magnesium 2.4 MRSA (PCR) Negative Assessment/Plan Active and Suspected Problems Shortness of breath (Acute) Tachycardia (Acute) dysphagia, weight loss, abnormal GI tract imaging, no aspiration I plan to perform upper endoscopy. THe family understands the risks, benefits possible complications and alternatives. I will not plan for PEG tube at this time. patient may need manometry.
[2017-05-21] MEDS: 0.9% NaCl Peripheral Flush Adult/Peds IV ×2 (10:16→18:09)
[2017-05-21] MEDS: Enoxaparin 40 MG/0.4 ML Syringe SC (11:01)
--- NOTE | 2017-05-21 14:00 | SP.MBSS_ITS ---
PRIMARY / SECONDARY DIAGNOSIS: dysphagia (R13.12, R13.14) REFERRING PHYSICIAN: Dr. Soumya Murphy MD CURRENT DIET: NPO pending results, regular thin prior to admission. DENTITION: natural; suboptimal repair MENTAL STATUS: impaired RESPIRATORY STATUS: O2 via room air PREVIOUS MODIFIED BARIUM SWALLOW STUDY: none REASON FOR REFERRAL: Patient is a 56 year old female referred for a modified barium swallow (MBS) study to objectively assess the Patients oropharyngeal swallow function under fluoroscopy secondary to suspected moderate to severe oropharyngeal dysphagia and suspected esophageal dysphagia attributed to the diagnosis of cerebral palsy , with Patient considered a higher risk for silent aspiration. Patient admitted to [facility] on 05/19/2017 due to persistent coughing and shortness of breath with suspected aspiration. Physician documentation reveals concerns with aspiration well prior to admission, progressive weight loss, considerations for alternative means of nutrition. Spoke with Patients family member, reports workup previously underway in regards to esophageal motility concerns via internet webmaster at [facility], to include MBS completion, though [facility] apparently neglected to follow up with planned assessments (MBS scheduled at [facility] in October of 2016, no call / no show documented in EMR) and [facility], with little knowledge of planned and / or completed recommended interventions reported by family. Patient reported to cough during intake of all textures, requires total feed with specialty cup / silverware, and consistently takes upwards of 1 hour to finish meals. Patient accompanied by her family / caregiver to optimize PO intake trials due to complexity of needs. 05/19/2017 CXR revealed limited inspiration; gaseous distention of the esophagus ; no acute cardiopulmonary disease process is seen. 05/19/2017 CTA revealed normal CTA chest examination, without a demonstrated pulmonary embolism or arterial dissection; right-sided pacemaker noted; coronary arterial calcifications are present; large hiatal hernia located to the right of midline with dilatation of the esophagus. 05/21/2017 CXR revealed no pulmonary edema, congestive heart failure or confluent pneumonia; resolution of previous esophageal distention MEDICAL HISTORY: Cerebral palsy, hypothyroidism, gastroesophageal reflux disease, depression, and allergic rhinitis STUDY FINDINGS: Patient participated in a Modified Barium Swallow (MBS) study on 05/21/2017. Dr. Justcie was the radiologist present for this evaluation. This study was recorded in the lateral view and images were sent to PACs for storage. The following consistencies were presented to this patient for analysis of oropharyngeal swallow function: thin liquids, pudding, and a crumbled mechanical soft textured, Chani Doone cookie. Results of the MBS are as follows: PENETRATION / ASPIRATION SCALE (BRANDT): 1 = does not enter airway 2 = enters airway/above vocal folds/ejected 3 = enters airway/above vocal folds/not ejected 4 = enters airway/contacts vocal folds/ejected 5 = enters airway/contacts vocal folds/not ejected 6 = enters airway/below vocal folds/ejected 7 = enters airway/below vocal folds/not ejected despite effort 8 = enters airway/below vocal folds/no effort PENETRATION / ASPIRATION SCALE (SCORE): Thin liquids via cup (sequential swallows): 1 Thin liquids via cup (sequential swallows): 2 Thin liquids via cup (sequential swallows): 2 Thin liquids via cup (single sip): 1 Thin liquids via cup (single sip): 1 Thin liquids via cup (single sip): 1 Pudding via spoon: 1 Mechanical soft textured cookie: 1 Thin liquids via cup (single sip): 1 * Frequent movement complicating all images captured IMPRESSION: DIAGNOSIS: moderate oropharyngeal dysphagia (R13.12) ORAL PHASE CHARACTERIZED BY: LABIAL SEAL: escape beyond mid chin TONGUE CONTROL DURING BOLUS MANIPULATION: intermittent posterior escape of greater than half of bolus BOLUS PREPARATION / MASTICATION: minimal chewing/mashing with majority of bolus unchewed BOLUS TRANSPORT / LINGUAL MOTION: repetitive/disorganized tongue motion with strong tongue thrust ORAL RESIDUE: trace residue lining oral structures PHARYNGEAL PHASE CHARACTERIZED BY: INITIATION OF PHARYNGEAL SWALLOW: bolus head in pyriforms at first hyoid excursion SOFT PALATE ELEVATION: no bolus between soft palate and pharyngeal wall LARYNGEAL ELEVATION: complete superior movement of thyroid cartilage with complete approximation of arytenoids cartilage to epiglottic petiole ANTERIOR HYOID EXCURSION: partial anterior movement EPIGLOTTIC MOVEMENT: complete epiglottic inversion LARYNGEAL VESTIBULE CLOSURE AT HEIGHT OF SWALLOW: complete laryngeal vestibule closure with no air/contrast in laryngeal vestibule PHARYNGEAL STRIPPING WAVE: pharyngeal stripping wave present / complete PHARYNGOESOPHAGEAL SEGMENT OPENING: partial distension and partial duration; partial obstruction of flow TONGUE BASE RETRACTION: trace column of contrast between tongue base and posterior pharyngeal wall PHARYNGEAL RESIDUE: trace residue within or on pharyngeal structures ESOPHAGEAL PHASE CHARACTERIZED BY: ESOPHAGEAL BOLUS CLEARANCE IN THE UPRIGHT POSITION: no apparent dysmotility EFFECTS OF TREATMENT STRATEGIES ATTEMPTED: Reduced bolus size = effective Reduced rate of intake = effective DIET TEXTURE RECOMMENDATIONS: Will recommend a pureed textured, thin liquid diet. COMPENSATORY STRATEGIES RECOMMENDED: TOTAL FEED, very small sips by specialty cup provided by caregivers, small bites by spoon provided by caregivers, alternate between bites and sips, seated upright at 90 degrees during PO intake, remain upright for at min 60 min post intake, crush medication in applesauce, oral care provided following all intake INTERPRETATION OF RESULTS: Patient presents with mild oropharyngeal dysphagia (R13.12) moderate oropharyngeal dysphagia (R13.12) attributed to the diagnosis of cerebral palsy. Oral preparatory phase marked by complete inability to independently feed, with frequent involuntary movements and inability to maintain positioning complicating intake. Oral phase primarily marked by suboptimal lingual control / lingual discoordination with noted strong lingual protrusions (tongue thrust) significantly complicating oral phase manipulation and transport, resulting in intermittent premature posterior bolus loss and intermittent anterior bolus loss in addition to aerophagia; and mastication inefficiency with overall significant discoordination and ineffective mastication. Pharyngeal phase primarily marked by impaired pharyngeal swallow onset timing resulting in suboptimal bolus location upon swallow onset contributing to prandial penetration of thin liquids during sequential trials; consistent laryngeal vestibule pressure generated to expel penetrated material with somewhat protective laryngeal posturing with the larynx approximately 75% elevated prior to consumption. Tolerance of thin liquids improved with bolus volume adjustments. Frequent audible gulping and somewhat gasping sounds and intermittent coughing appreciated throughout trials, with no accompanying penetration or aspiration events, complicating assessment at bedside. Cough response likely insufficient to expel penetrated material / laryngotracheal aspiration. Prominent non-obstructive cricopharyngeal bar located at the C-6 level. No aspiration appreciated throughout trials, unable to definitively rule out silent aspiration. Patient at higher risk of pulmonary complications associated with aspiration due to the Patients non-ambulatory status and suboptimal dentition. RECOMMENDATIONS: Patient requires intensive skilled speech-language intervention targeting continued diet texture management; training and implementation of recommended compensatory strategies; Patient and caregiver education regarding dysphagia associated with cerebral palsy, strategies to promote optimal safety during PO intake ADDITIONAL COMMENTS/RECOMMENDATIONS: Results and recommendations were discussed with the Patient immediately following MBS completion, with the Patient verbalizing understanding and agreement with all recommendations and education provided. IMAGE COUNT: [id number]
--- NOTE | 2017-05-21 14:10 | RAD_ITS ---
STUDY: SWALLOWING STUDY REASON FOR EXAM: Female, 56 years old. Dysphagia. TECHNIQUE: The examination was performed with Speech Pathology in attendance. Under fluoroscopic observation, the patient ingested thin barium, thick barium, barium pudding, and barium coated cracker. FLUOROSCOPY TIME: 1:35 minutes/seconds. 2276 spot images were obtained. RADIOLOGIST INVOLVEMENT: Radiologist was present and providing direct supervision. COMPARISON: None. FINDINGS: The following was observed during swallowing of the various mixtures of barium: Thin Barium: Minimal penetration with ingestion of thin liquids with ejection. Barium Pudding: There was no evidence of aspiration or laryngeal penetration. Barium Coated Cracker: There was no evidence of aspiration or laryngeal penetration. RAD/Swallowing Function w/Video IMPRESSION: Minimal penetration with ejection upon ingestion of thin liquids. The swallow study findings were discussed with the patient by the speech pathologist at the conclusion of the examination. Please see speech pathology report for more information and recommendations. Electronically Signed: Colten Justice MD at 14:56 EDT Tel [phone], Service support ,
[2017-05-22] VITALS (11 sets, daily range): BP systolic 101–140; BP diastolic 60–125; PULSE 80–124; RESP 16–21; TEMP 36.1–36.8; O2SAT 93–97
--- NOTE | 2017-05-22 | IMM_PTH ---
PATIENT: SUNNI GUIDRY LOC: [facility] U#:[id number] AGE/SX: 56/F ROOM: [facility] RE05/20/[address]: Dr. Allyn Murphy DO : 1960 BED: 1 DIS: 05/22/2017 SPEC #: [id number] RECD: 05/23/17 14:48 STATUS: SOUT REQ #: [id number] DANIEL: 05/22/17 00:[address]: Jalen Ferris DEPT: IMMUNOHISTOCHEMISTRY RECD BY: Roxana Patel ENTERED: 05/23/17 14:48 SP TYPE: IMMUNO OTHR DR: DO Dr. Miguel A Gambino MD Dr. Tai Chi Kwok, MD Tissues: A - Stomach, NOS Procedures: H Pylori (initial) Comments: @ Ordering doctor for H.PYLORI edited from to DR.RGUTTM aSntoro by SPENSER at 05/23/17 1459 @ Submitting doctor edited from to DR.RGUTTM Santoro by SPENSER at 05/23/17 1459 PHYSICIAN & INSTITUTION [place] [id number] SPECIMEN INFORMATION: Tissue Source: A ? Antral biopsy Clinical Info: Dysphagia, weight loss Specimen Number: [id number] CPT code: 83878 METHODOLOGY: Deparaffinized sections of prefer/formalin-fixed tissue or PAP/DQ stained slides are incubated with monoclonal/polyclonal antibodies/oligonucleotide probes. Localization is made via biotin free immunoperoxidase method. Appropriate controls are performed and reacted as expected. Results on target cell population are indicated in the following table: RESULTS: ANTIBODY / CLONE RESULT Block A H Pylori (polyclonal) negative These tests were developed and their performance characteristics determined by [facility]. They may not have been cleared or approved by the U.S. Food and Drug Administration. The FDA has determined that such clearance or approval is not necessary. INTERPRETATION: A. Antral biopsy: Negative for Helicobacter pylori organisms. AM:andres 05/26/17
--- NOTE | 2017-05-22 07:15 | EGD_PTH ---
PATIENT: SUNNI GUIDRY LOC: [facility] U#:[id number] AGE/SX: 56/F ROOM: [facility] RE05/20/[address]: Dr. Allyn Murphy DO : 1960 BED: 1 DIS: 05/22/2017 SPEC #: [id number] RECD: 05/22/17 09:35 STATUS: LOIDA KENYATTA #: [id number] DANIEL: 05/22/17 07:[address]: Jalen Ferris DEPT: SURGICAL PATHOLOGY RECD BY: Alina Welsh ENTERED: 05/22/17 11:04 SP TYPE: EGD BIOPSY OTHR DR: DO Dr. Miguel A Gambino MD Dr. Tai Chi Kwok, MD Tissues: A - Gastric mucous membrane B - Esophageal mucous membrane Procedures: Special Stain Group II Surgery Specimen Level IV Alcian Blue/PAS (control) Comments: @ Ordering doctor for SUIV edited from to @ by SPENSER at 05/23/17 0749 @ Submitting doctor edited from to @ by FARHANOD at 05/23/17 0749 HEADER OPERATION: EGD with biopsy PRE-OP DIAGNOSIS: Dysphagia, weight loss TISSUE SUBMITTED: A. Antral biopsy, B. Esophageal biopsy MICROSCOPIC DIAGNOSIS A. Gastric antrum, biopsy: Mild to moderate chronic gastritis. B. 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 No evidence of dysplasia. AM:andres 05/23/17 COMMENT A. The results of immunohistochemistry for Helicobacter pylori will be reported separately ([id number]). B. Squamous epithelium is not represented in the biopsy. Clinical correlation is suggested. Alcian blue/PAS stain with matched control supports the above diagnosis. MICROSCOPIC DESCRIPTION Slides are reviewed. GROSS DESCRIPTION A - Received in fixative is one container labeled with the patient's name and designated antral biopsy. The specimen consists of one irregular fragment of light south soft tissue that measures 0.4 x 0.3 x 0.1 cm. The specimen is totally submitted in one cassette. B - Received in fixative is one container labeled with the patient's name and designated esophageal biopsy. The specimen consists of one irregular fragment of light south soft tissue that measures 0.3 x 0.2 x 0.1 cm. The specimen is totally submitted in one cassette. / SJ:rg 05/22/17 TC:3 CPT: 58273 x2, 19981
--- NOTE | 2017-05-22 08:18 | PCM.OPRPT ---
Problem List (1) Cerebral palsy Status: Chronic Report of Operation Date of Procedure: 05/22/17 Pre-Operative Diagnosis: cerebral palsy, chest pain, reflux, imaging demonstrating large hiatal hernia and esophageal dilatation Post-Operative Diagnosis: cerebral palsy, chest pain, reflux, imaging demonstrating large hiatal hernia and esophageal dilatation, - type I hiatal hernia with approximately two thirds of the stomach above the diaphragmatic hiatus, shortened esophagus with GE junction, estimated to be at approximately 25-30 cm, likely aspirating saliva intermittently but no signs of bilious aspiration Surgery/Procedure Performed:: EGD with biopsy Type of Anesthesia:: MAC Anesthesiologist: Maximiliano Mccoy - ASA3 Specimen's removed: gastric, distal esophagus Description of Procedure: The patient was brought to the endoscopy suite. Sign in was performed verifying patient, site, planned procedure, critical nursing information, the patient was monitored with cardiac, pulse oximetric, and blood pressure monitoring devices. Monitored anesthetic care was provided for sedation. Following IV sedation and after the oropharynx was sprayed with Cetacaine spray, a video gastroscope was inserted in the oropharynx and advanced down the esophagus without difficulty. The scope was advanced through the stomach, through the pylorus through the duodenum to the proximal jejunum. the scope was advanced through a dilated esophagus to the stomach, through the pylorus to the fourth portion of duodenum. The entire duodenum appeared unremarkable. As the scope was withdrawn, the antral region appeared unremarkable to possibly minimal gastritis. A biopsy was taken for H. pylori and pathology. attempts to dilate the stomach and passed below the costal margin to assess if the feeding tube could be placed in the future, did not demonstrate a nice access point, both to the patient's rapid breathing and spasticity secondary to her cerebral palsy and likely confirmed the fact that on CT scan, two thirds of her stomach are above the diaphragmatic hiatus and the distal stomach seems to be underneath the costal margin. The scope was retroflexed, the anticipated large type I hiatal hernia was noted. There were no signs of marginal ulceration or gastritis at the diaphragmatic hiatus. The GE junction was widely dilated. The esophagus seemed obviously shortened. The retroflexed scope was actually able to be brought up into the esophagus through the GE junction, illustrating the degree of esophageal dilatation. Clearly there was no narrowing at the GE junction consistent with achalasia. As the scope was straightened and withdrawn, the Z line appeared to be at approximately 25-30 cm again, this was challenging to truly assess due to the patient's spasticity and breathing causing significant motion. further, the degree of dilatation of the distal esophagus made a challenging to truly assess what the GE junction site was. A biopsy was performed just beyond the Z line and sent to pathology. There seemed to be esophageal peristalsis as the esophagus was examined, but again the esophagus was widely dilated. The patient tolerated the procedure well and was brought to recovery in stable condition. I would recommend starting the patient on a proton pump inhibitor and recommend referral to the GI motility section at [facility] given the challenges of trying to further elicit the origin of her esophageal pathology and to assess underlying motility issues.
[2017-05-22] MEDS: Ipratropium/Albuterol Sulfate 3 ML AMPUL.NEB INHALATION (10:35)
[2017-05-22] MEDS: 0.9% NaCl Peripheral Flush Adult/Peds IV (10:39)
[2017-05-22] MEDS: Enoxaparin 40 MG/0.4 ML Syringe SC (10:40)
--- NOTE | 2017-05-22 14:51 | CASEMGMT ---
Social Work Clinical update faxed to [facility] at [facility]. Pt will be accepted back when medically ready. YAKOV Jarrett
--- NOTE | 2017-05-22 16:34 | PCM.DC ---
- Discharge Diagnoses Current Active Problems: Current Active and Chronic Problems Cerebral palsy (Chronic) Shortness of breath (Acute) Tachycardia (Acute) You will use the following diet at home:: Other - Small meals Total feed Small sips from specialty cup Small bites via a 1/2 tsp Must be upright at 90? during p.o. intake and remain upright at 90? for 60 minutes after eating All medications should be crushed and mixed in a pur?e All foods should be pureed. she can have thin liquids. Your food should be the consistency of: Puree Your liquids should be the consistency of: Regular/Thin Discharge Activity: Return to Normal Activity Call your doctor if you observe: Fever of 101 or Higher, Shortness of breath Additional Instructions: Dr. Ferris is trying to make arrangements for her to see a propeller engineer the [facility] about the dilated esophagus. Please follow up with Dr. Ferris in his office in 1-2 weeks. Allergies/Adverse Reactions: Allergies amoxicillin trihydrate [From Augmentin] Adverse Reaction (Verified 09/13/15 21:52) Unknown potassium clavulanate [From Augmentin] Adverse Reaction (Verified 09/13/15 21:52) Unknown Medications to take at Discharge Lactulose 30 ml PO BID 09/10/14 Levothyroxine [Synthroid] 50 mcg PO DAILY 09/10/14 Loratadine [Claritin] 10 mg PO DAILY 09/10/14 Melatonin/Pyridoxine [Melatonin 3 mg Tablet] 4.5 mg PO QHS 09/10/14 Senna [Senokot] 1 tablet PO BID 04/20/15 Fluoxetine [Prozac] 10 mg PO DAILY 05/19/17 Mirtazapine 7.5 mg PO QHS 05/19/17 Omeprazole [Prilosec] 20 mg PO DAILY #60 cap 05/22/17 The following prescriptions were given: Omeprazole [Prilosec] 20 mg PO DAILY #60 cap Primary Care Physician: Rocky Barlow Chi, MD [Primary Care Provider] - Please follow up with your Primary Care Physician in: 5-7 days Please Follow Up With: Jalen Ferris MD When: 2 weeks Proposed Discharge Date: 05/22/17
--- NOTE | 2017-05-22 16:44 | DCINST_ITS ---
- Discharge Diagnoses Current Active Problems: Current Active and Chronic Problems Cerebral palsy (Chronic) Shortness of breath (Acute) Tachycardia (Acute) You will use the following diet at home:: Other - Small meals Total feed Small sips from specialty cup Small bites via a 1/2 tsp Must be upright at 90? during p.o. intake and remain upright at 90? for 60 minutes after eating All medications should be crushed and mixed in a pur?e All foods should be pureed. she can have thin liquids. Your food should be the consistency of: Puree Your liquids should be the consistency of: Regular/Thin Discharge Activity: Return to Normal Activity Call your doctor if you observe: Fever of 101 or Higher, Shortness of breath Additional Instructions: Dr. Ferris is trying to make arrangements for her to see a tear down matcher the [facility] about the dilated esophagus. Please follow up with Dr. Ferris in his office in 1-2 weeks. Allergies/Adverse Reactions: Allergies amoxicillin trihydrate [From Augmentin] Adverse Reaction (Verified 09/13/15 21: 52) Unknown potassium clavulanate [From Augmentin] Adverse Reaction (Verified 09/13/15 21:52 ) Unknown Medications to take at Discharge Lactulose 30 ml PO BID 09/10/14 Levothyroxine [Synthroid] 50 mcg PO DAILY 09/10/14 Loratadine [Claritin] 10 mg PO DAILY 09/10/14 Melatonin/Pyridoxine [Melatonin 3 mg Tablet] 4.5 mg PO QHS 09/10/14 Senna [Senokot] 1 tablet PO BID 04/20/15 Fluoxetine [Prozac] 10 mg PO DAILY 05/19/17 Mirtazapine 7.5 mg PO QHS 05/19/17 Omeprazole [Prilosec] 20 mg PO DAILY #60 cap 05/22/17 The following prescriptions were given: Omeprazole [Prilosec] 20 mg PO DAILY #60 cap Primary Care Physician: Rocky Barlow Chi, MD [Primary Care Provider] - Please follow up with your Primary Care Physician in: 5-7 days Please Follow Up With: Jalen Ferris MD When: 2 weeks Proposed Discharge Date: 05/22/17
--- NOTE | 2017-05-22 16:44 | DS.PCM_ITS ---
Discharge Date and Diagnosis - Problem List Patient Problems: Active and Suspected Problems Aspiration pneumonitis (Acute) Esophageal dilatation (Acute) Date of Admission: 05/19/17 Date of Discharge: 05/22/17 - Primary Discharge Diagnosis Active and Suspected Problems Aspiration pneumonitis (Acute) Esophageal dilatation (Acute) Shortness of breath (Acute) Tachycardia (Acute) - Secondary Discharge Diagnosis Chronic Problems Depression (Chronic) Hypothyroidism (Chronic) Iron deficiency anemia (Chronic) Poor oral hygiene (Chronic) Hiatal hernia (Chronic) Chronic pulmonary aspiration (Chronic) Cerebral palsy (Chronic) Hospital Course and Treatment Imaging Results: Clinical Impression(s) from Imaging Studies Chest X-Ray 05/19/17 17:30 IMPRESSION: Limited inspiration. Gaseous distention of the esophagus. No acute cardiopulmonary disease process is seen. Electronically Signed: Franko Cuellar MD at 17:55 EDT , Service support , Chest CTA 05/19/17 19:04 IMPRESSION: Normal CTA chest examination, without a demonstrated pulmonary embolism or arterial dissection. Right-sided pacemaker noted. Coronary arterial calcifications are present. Large hiatal hernia located to the right of midline. Dilatation of the esophagus. Electronically Signed: Franko Cuellar MD at 20:09 EDT , Service support , Chest X-Ray 05/21/17 05:55 IMPRESSION: No pulmonary edema, congestive heart failure or confluent pneumonia. Resolution of previous esophageal distention. Electronically Signed: Yessica Hernandez MD at 6:42 EDT , Service support , Videofluoroscopic Swallow 05/21/17 14:10 IMPRESSION: Minimal penetration with ejection upon ingestion of thin liquids. The swallow study findings were discussed with the patient by the speech pathologist at the conclusion of the examination. Please see speech pathology report for more information and recommendations. Electronically Signed: Colten Justice MD at 14:56 EDT Tel [phone], Service support , Dr. Jalen Ferris-[facility] general surgery Operations: None Procedures: EGD Summary of Care Provided: Patient is a 56-year-old female who is a resident of a residential. Her past medical history is significant for cerebral palsy, hypothyroidism, GERD, depression and allergic rhinitis. She was brought to the emergency room on 05/19 complaining of cough and shortness of breath. She later complained of chest pain as well. Vital signs at presentation to the emergency room were temperature 97.9, pulse rate 106, blood pressure 159/100, respiratory rate 24 and she was 97% saturated on room air. Lab revealed an elevated white blood cell count at 13.7 with a hemoglobin of 10.1. MCV was low at 77.8 and the RDW is increased at 18.6. Platelets were elevated at 463,000. BMP was unremarkable and troponin was less than 0.02. Chest x-ray showed no infiltrates but did show severe gaseous distention of the esophagus. A CTA of the chest was done which showed no pulmonary emboli but did show a dilated esophagus with a large hiatal hernia. There was a large amount of stool in the colon with gaseous distention of the colon. Influenza swab was negative. She was admitted to a monitored bed on PCU with a dx of SOB and CP. On PE she had coarse rhonchi. She was started on Levaquin and clindamycin for suspected aspiration. A modified barium swallow was ordered. There was minimal penetration with ejection upon ingestion of thin liquids. The speech therapist recommended pur?ed foods with thin liquids. Dr. Ferris was consulted for EGD and this was done on 05/22/2017. EGD showed a type I hiatal hernia with approximately two thirds of the stomach above the diaphragmatic hiatus. There was a shortened esophagus with GE junction estimated to be at approximately 25- 30 cm. No evidence of gastritis, esophagitis or peptic ulcer disease. No findings of Arias's esophagus. Biopsies were taken. She was afebrile throughout her hospital stay. CBC ?3 revealed a normal white blood cell count and normal differential. On 05/22/2017 her lungs were clear to auscultation. She was afebrile and the vital signs were stable. She was discharged back to the residential and instructed to consume a pur?ed diet with thin liquids. She is to sit at 90? while eating and for 1 hour after finishing eating. No more than 1/2 teaspoon at a time. She will use a specialized cup for drinking. Dr. Ferris was investigating referral to [facility] for follow- up with gastroenterology regarding the dilated esophagus. She will follow-up in the office with Dr. Ferris in 1-2 weeks. She will follow-up with Dr. Barlow within the next 2 weeks. This note was generated with [employer] dictation software. It may contain incorrect words, spelling, and punctuation that were not noted in checking the note before signing. Discharge Activity: Return to Normal Activity Call your doctor if you observe: Fever of 101 or Higher, Shortness of breath Home Medications: Medications to take at Discharge Lactulose 30 ml PO BID 09/10/14 Levothyroxine [Synthroid] 50 mcg PO DAILY 09/10/14 Loratadine [Claritin] 10 mg PO DAILY 09/10/14 Melatonin/Pyridoxine [Melatonin 3 mg Tablet] 4.5 mg PO QHS 09/10/14 Senna [Senokot] 1 tablet PO BID 04/20/15 Fluoxetine [Prozac] 10 mg PO DAILY 05/19/17 Mirtazapine 7.5 mg PO QHS 05/19/17 Ferrous Sulfate Syrup 300 mg GT BID #300 mls 05/22/17 Omeprazole [Prilosec] 20 mg PO DAILY #60 cap 05/22/17 Following Prescrptions Were Given to Patient: Omeprazole [Prilosec] 20 mg PO DAILY #60 cap Ferrous Sulfate Syrup 300 mg GT BID #300 mls Primary Care Physician: Rocky Barlow Chi, MD [Primary Care Provider] - Please follow up with your Primary Care Physician in: 5-7 days Please Follow Up With: Jalen Ferris MD When: 2 weeks Disposition: Asstd Living/Non-Skill NH Minutes spent on discharge:: 30 Meaningful Use Info Meaningful Use Diagnoses (Choose all that apply): None applicable Code Visit Inpatient E&M: 49656 Disch Hosp
== END 2017-05-22 17:35 | disposition home or self-care (01) | DRG 179 ==
LOC: ED 18:02 → PCU 21:08
PROVIDERS: Surgery; Admitting Provider Family Medicine; Emergency Provider Emergency Medicine; Family Provider Family Medicine Geriatric Medicine; PCP Family Medicine Geriatric Medicine; Visit Provider Internal Medicine
PROC: 0DJ08ZZ Inspection of Upper Intestinal Tract, Via Natural or Artificial Opening Endoscopic (ICD-10-PCS; CPT 43235; principal; 2017-05-22 06:50)
DX: J69.0 Pneumonitis due to inhalation of food and vomit (principal); G80.9 Cerebral palsy, unspecified; K21.9 Gastro-esophageal reflux disease without esophagitis; K44.9 Diaphragmatic hernia without obstruction or gangrene; D50.9 Iron deficiency anemia, unspecified; E03.9 Hypothyroidism, unspecified; K02.9 Dental caries, unspecified; K22.8 Other specified diseases of esophagus; F32.9 Major depressive disorder, single episode, unspecified; Z79.899 Other long term (current) drug therapy
CPT/HCPCS: 36415; 71045; 71275; 74230; 80048; 80053; 80061; 82274; 82728; 83540; 83550; 83735; 84100; 84443; 84484; 85025; 85045; 87633; 87641; 87804; 88305; 88313; 88342; 92526; 92611; 93005; 94640; 94760; 97802; 99285; J1756; Q9967; A4216

== ENCOUNTER 2017-09-08 09:44 | Day surgery (SDC) | payer MEDICARE, MEDICAID, SELFPAY ==
[2017-09-08 10:13] VITALS: BP 129/87; PULSE 71; RESP 18; TEMP 36.7; O2SAT 98
--- NOTE | 2017-09-08 11:10 | RAD_ITS ---
STUDY: X-RAY - PELVIS AND RIGHT HIP REASON FOR EXAM: Female, 57 years old. Right hip injection. TECHNIQUE: Radiological exam, hip, unilateral, with pelvis when performed; 1 view COMPARISON: None. FINDINGS: Intraoperative imaging for right hip injection. Contrast is seen within the hip joint. RAD/Fluoro Guided Needle Placement IMPRESSION: Intraoperative imaging provided for right hip injection. Contrast is seen within the hip joint. Electronically Signed: Colten Justice MD at 12:26 EDT Tel [phone], Service support ,
[2017-09-08] MEDS: MethylPREDNISolone Acetate 80 MG/ML Vial (11:22)
[2017-09-08] MEDS: Bupivacaine 0.25% 30 ML Vial (11:23)
[2017-09-08 11:29] VITALS: BP 107/86; BP 129/87; PULSE 57; RESP 18; TEMP 36.2; O2SAT 94
[2017-09-08 11:35] VITALS: BP 127/82; BP 129/87; PULSE 67; RESP 18; O2SAT 97
[2017-09-08 11:40] VITALS: BP 129/87; BP 136/90; PULSE 67; RESP 18; O2SAT 95
[2017-09-08 11:45] VITALS: BP 129/87; BP 144/84; PULSE 69; RESP 18; TEMP 36.1; O2SAT 99
[2017-09-08 12:05] VITALS: BP 129/87; BP 144/84
--- NOTE | 2017-09-08 12:39 | OP.PCM_ITS ---
Problem List (1) Unilateral primary osteoarthritis, right hip Status: Chronic Report of Operation Date of Procedure: 09/08/17 Pre-Operative Diagnosis: Osteoarthritis of the right hip Post-Operative Diagnosis: Osteoarthritis of the right hip Surgery/Procedure Performed:: Right hip intra-articular steroid injection under fluoroscopic guidance Description of Surgical Findings:: PROCEDURE: Right hip intra-articular steroid injection under fluoroscopic guidance PREOPERATIVE DIAGNOSIS: Osteoarthritis of the right hip POSTOPERATIVE DIAGNOSIS: Osteoarthritis of the right hip ANESTHESIA: MAC COMPLICATIONS: None BLOOD LOSS: Minimal PROCEDURE IN DETAIL: History and physical today was reviewed. Risks and benefits of the procedure were explained. The patient understood, agreed to our procedure, and informed consent was obtained. IV inserted per routine protocol. The patient was taken to the operating room, placed in a supine position the right hip was prepped and draped in a sterile fashion using iodine ?3 under fluoroscopy guidance AP view of the right hip joint was visualized the skin and subcutaneous tissue and size approximately 3 cc of 1% lidocaine using a 25-gauge regular needle approximately 3 cm cephalad to the right greater trochanter under direct visualization fluoroscopy on AP view using a lateral approach using a 22-gauge 5 inch spinal needle the needle was advanced via the skin the tip of the needle's maneuver and directed towards the superiormost aspect of the hip joint once tip of the needle is at the vicinity of the joint after negative aspiration for blood a total of 1 cc of contrast were injected to confirm correct placement of the needle as well as halo spread around the hip joint after repeated confirmation on AP as well as oblique view and repeated negative aspiration a total of 10 cc of preservative- free 0.25% Marcaine with 80 mg of the portal was injected easily the needle was then removed intact patient experienced no sinus symptoms intrathecal or intravascular injection patient experienced no paresthesia. The procedure was completed without any apparent difficult, any complication. The patient appeared to tolerate well. ASSESSMENT AND PLAN: This is a 57-year-old female with osteoarthritis of the right hip status post right hip intra-articular steroid injection under fluoroscopic guidance. The patient will continue her current medications. The patient will follow in approximately 2 weeks for possible repeat of the procedure if indicated.
== END 2017-09-08 12:14 | disposition home or self-care (01) ==
LOC: SDC 09:45 → AC 09:47
PROVIDERS: Family Provider Family Medicine Geriatric Medicine; PCP Family Medicine Geriatric Medicine; Visit Provider Anesthesiology Pain Medicine
PROC: 3E0U3GC Introduction of Other Therapeutic Substance into Joints, Percutaneous Approach (ICD-10-PCS; CPT 20610; principal; 2017-09-08 11:05)
DX: M16.11 Unilateral primary osteoarthritis, right hip (principal); G80.9 Cerebral palsy, unspecified; G80.8 Other cerebral palsy; M25.551 Pain in right hip; M79.651 Pain in right thigh; E78.5 Hyperlipidemia, unspecified; E03.9 Hypothyroidism, unspecified; M79.7 Fibromyalgia; E55.9 Vitamin D deficiency, unspecified; K21.9 Gastro-esophageal reflux disease without esophagitis; F32.9 Major depressive disorder, single episode, unspecified; Z79.899 Other long term (current) drug therapy; Z78.0 Asymptomatic menopausal state
CPT/HCPCS: 01200; 20610; 76000; 77002; J7120

== ENCOUNTER → 2017-11-06 12:17 | Outpatient (CLI) | payer MEDICARE, MEDICAID, SELFPAY ==
[2017-11-06 13:43] LABS: Absolute Lymphocyte Count 2.67 X10^3/ul (0.83-4.51); Absolute Neutrophil Count 3.3 X10^3/uL (2.0-7.7); Basophil# 0.07 X10^3/uL; Eosinophil# 0.27 X10^3/uL; Eosinophils% 3.9 % (0-5); Hematocrit 39.1 % (37-47); Hemoglobin 12.5 g/dl (12.0-15.0); Lymphocyte # 2.67 X10^3/ul (4.0); Lymphocyte % 38.9 % (19-41); Mean Corpuscular Hgb 29.3 pg (27.0-32.0); Mean Corpuscular Volume 91.6 fL (81-99); Mean Platelet Vol. 10.8 fl (6.2-12.0); Monocyte# 0.53 X10^3/uL; Monocyte% 7.7 % (0-10); Neutrophil # 3.32 X10^3/uL (2.7-7.7); Neutrophil % 48.5 % (47-70); Platelet Count 258 K/mm3 (150-450); RBC Distribution Width CV 15.8 % (11.6-14.6); Red Blood Count 4.27 M/mm3 (4.2-5.4); White Blood Count 6.9 K/mm3 (4.4-11.0)
[2017-11-06 13:44] LABS: POSITIVE COUNT NO; POSITIVE DIFFERENTIAL NO; POSITIVE MORPHOLOGY NO
[2017-11-06 14:13] LABS: ALB/GLOB Ratio 0.8 RATIO (0.9-2.4); AST(SGOT) 16 U/L (15-37); Alanine Aminotransfer ALT/SGPT 18 U/L (13-56); Albumin, Serum 3.5 g/dL (3.2-5.0); Alkaline Phosphatase 101 U/L (45-117); Anion Gap 7 (5-15); BUN 13 mg/dL (7-18); BUN/Creat Ratio 24.1 RATIO (10-20); Calcium,Total 8.8 mg/dL (8.5-10.1); Chloride 106 mmol/L (98-107); Creatinine, Serum 0.54 mg/dL (0.55-1.02); EST Glomerular Filtration Rate 124 mL/min (>60); Est Glom Filt Rate - Afr Amer 150 mL/min (>60); Globulin 4.4 g/dL (2.2-4.2); Glucose 96 mg/dL (74-106); Potassium 4.7 mmol/L (3.5-5.1); Protein, Total 7.9 g/dL (6.4-8.2); Sodium Level 143 mmol/L (136-145); Thyroid Stim Hormone (TSH) 1.14 uIU/mL (0.358-3.74)
[2017-11-10 13:15] LABS: Hep C Antibodies 0.3 s/co ratio (0.0-0.9)
== END ==
PROVIDERS: Family Provider Family Medicine Geriatric Medicine; PCP Family Medicine Geriatric Medicine; Visit Provider Family Medicine Geriatric Medicine
DX: E55.9 Vitamin D deficiency, unspecified (principal); R53.83 Other fatigue; Z13.9 Encounter for screening, unspecified
CPT/HCPCS: 36415; 74018; 80053; 82306; 84443; 85025; 86803

== ENCOUNTER → 2017-12-17 11:28 | Outpatient (CLI) | payer MEDICARE, MEDICAID, SELFPAY ==
--- NOTE | 2017-12-17 11:31 | RAD_ITS ---
STUDY: X-RAY - PELVIS AND RIGHT HIP REASON FOR EXAM: Female, 57 years old. Right hip pain TECHNIQUE: Radiological exam, hip, unilateral, with pelvis when performed; 2 or 3 views. COMPARISON: None. FINDINGS: A dynamic compression screw and a sideplate have been used to transfix a healed fracture involving the proximal right femur. The sacroiliac and hip joints are normal. There is a valgus deformity of the left hip. No acute fractures are seen RAD/HIP, UNI W/ Pelvis 2-3 Views IMPRESSION: A dynamic compression screw and sideplate have been used to transfix a healed fracture involving the proximal right femur. No acute fractures Electronically Signed: Walker Angeles MD at 3:38 EDT Tel , Service support ,
--- NOTE | 2017-12-17 11:31 | RAD_ITS ---
STUDY: X-RAY - LUMBAR SPINE REASON FOR EXAM: Female, 57 years old. Back pain TECHNIQUE: 5 view(s) of the lumbar spine were obtained. COMPARISON: None FINDINGS: There degenerative changes at L1-L2. No acute fractures or dislocations are seen. The pedicles are intact and the paravertebral soft tissues are normal. RAD/L/S Spine Min 4 Views IMPRESSION: No fracture. Disc disease at L1-L2 Electronically Signed: Walker Angeles MD at 5:00 EDT Tel , Service support ,
== END ==
PROVIDERS: Family Provider Family Medicine Geriatric Medicine; PCP Family Medicine Geriatric Medicine; Referring Provider Nurse Practitioner Family; Visit Provider Nurse Practitioner Family
DX: M54.9 Dorsalgia, unspecified (principal); M25.551 Pain in right hip
CPT/HCPCS: 72110; 73502

== ENCOUNTER → 2018-01-16 12:14 | Outpatient (CLI) | payer MEDICARE, MEDICAID, SELFPAY ==
--- NOTE | 2018-01-16 12:25 | RAD_ITS ---
STUDY: X-RAY CHEST REASON FOR EXAM: Female, 57 years old. Persistent cough. Bronchitis. TECHNIQUE: AP and lateral views of the chest. COMPARISON: Comparison is made with prior study dated May 21, 2017. FINDINGS: Limited inspiratory effort. Minimal increased linear markings at the lung bases suggestive of underlying atelectasis. There is no demonstrated pleural abnormality. Normal size heart. Normal mediastinum and shanell. Normal visualized pulmonary arteries. Normal visualized aortic arch and descending thoracic aorta. There are diffuse degenerative changes of the visualized thoracic spine. Normal visualized ribs, clavicles, and shoulders. Large internal hernia. RAD/Chest PA and Lateral IMPRESSION: Mild increased markings at the lung bases suggestive of bibasilar linear atelectasis and/or scarring. Electronically Signed: Colten Justice MD at 13:00 EST Tel [phone], Service support ,
== END ==
PROVIDERS: Family Provider Family Medicine Geriatric Medicine; PCP Family Medicine Geriatric Medicine; Referring Provider Family Medicine Geriatric Medicine; Visit Provider Family Medicine Geriatric Medicine
DX: R05 Cough (principal); R50.9 Fever, unspecified
CPT/HCPCS: 71046; 87633

== ENCOUNTER → 2018-04-13 11:56 | Outpatient (CLI) | payer MEDICARE, MEDICAID, SELFPAY ==
--- NOTE | 2018-04-13 11:33 | RAD_ITS ---
STUDY: X-RAY CHEST REASON FOR EXAM: Female, 57 years old. Wheezing and shortness of breath TECHNIQUE: PA and lateral views of the chest. COMPARISON: 01/16/2018 FINDINGS: Lungs are expanded with diffuse interstitial edema, no organized infiltrate. Follow-up recommended to assure resolution There is no demonstrated pleural abnormality. Normal size heart. Normal mediastinum and shanell. Normal visualized pulmonary arteries. Normal visualized aortic arch and descending thoracic aorta. There are diffuse degenerative changes of the visualized thoracic spine. There is degenerative osteoarthritis of the bilateral shoulders. There is no demonstrated abnormality of the visualized soft tissue structures of the upper abdomen. RAD/Chest PA and Lateral IMPRESSION: Diffuse interstitial edema, follow-up recommended to assure resolution Electronically Signed: Gonzalez Perez MD at 11:56 EST , Service support ,
[2018-04-13] MEDS: 0.9% Normal Saline 1,000 ML 999 ML IV ×2 (12:20→13:30)
[2018-04-13 12:23] VITALS: BP 111/83; PULSE 90; RESP 18; TEMP 36.3; O2SAT 95; BMI 26.9
== END ==
PROVIDERS: Family Provider Family Medicine Geriatric Medicine; PCP Family Medicine Geriatric Medicine; Referring Provider Family Medicine Geriatric Medicine; Visit Provider Family Medicine Geriatric Medicine
DX: E86.0 Dehydration (principal); R06.2 Wheezing; R68.83 Chills (without fever)
CPT/HCPCS: 96360; 96361; 71046; 87633; J7030; A4216

== ENCOUNTER → 2018-04-15 13:38 | Outpatient (CLI) | payer MEDICARE, MEDICAID, SELFPAY ==
[2018-04-13 12:23] VITALS: BMI 26.9
[2018-04-15 17:15] LABS: BNP,B-Type NATRIURETIC PEPTIDE 56.8 pg/mL (0-100)
== END ==
PROVIDERS: Family Provider Family Medicine Geriatric Medicine; PCP Family Medicine Geriatric Medicine; Referring Provider Family Medicine Geriatric Medicine; Visit Provider Family Medicine Geriatric Medicine
DX: R06.02 Shortness of breath (principal)
CPT/HCPCS: 36415; 83880

== ENCOUNTER → 2018-04-20 10:00 | Outpatient (CLI) | payer MEDICARE, MEDICAID, SELFPAY ==
[2018-04-13 12:23] VITALS: BMI 26.9
--- NOTE | 2018-04-20 10:04 | RAD_ITS ---
STUDY: X-RAY CHEST REASON FOR EXAM: Female, 57 years old. Shortness of breath. Abnormal chest x-ray follow-up. TECHNIQUE: AP and lateral sitting upright views of the chest. COMPARISON: AP and lateral upright chest x-ray April 13, 2018 FINDINGS: Electronic device is again seen in the soft tissues of the right anterior chest wall. The lungs are poorly expanded and the patient is seen in an antilordotic position on the frontal view, which limits evaluation. There is hypoventilation in the lung bases, but no acute consolidation There is no demonstrated pleural abnormality. Grossly normal size heart. Normal mediastinum and shanell. Normal visualized pulmonary arteries. Normal visualized aortic arch and descending thoracic aorta. Normal thoracic spine. There is an increased kyphosis of the upper lumbar spine. Normal visualized ribs, clavicles, and shoulders. Rounded retrocardiac structure with some gas lucencies suggesting a small moderate size hiatal hernia is suggested. RAD/Chest PA and Lateral IMPRESSION: 1. X-ray examination of the chest limited by poor inspiratory effort with basilar crowding. No consolidating infiltrate or CHF. 2. Small to moderate size hiatal hernia suggested. Electronically Signed: Gonzalez Walton MD at 16:56 EST , Service support ,
== END ==
PROVIDERS: Family Provider Family Medicine Geriatric Medicine; PCP Family Medicine Geriatric Medicine; Referring Provider Family Medicine Geriatric Medicine; Visit Provider Family Medicine Geriatric Medicine
DX: R06.02 Shortness of breath (principal)
CPT/HCPCS: 71046

== ENCOUNTER → 2018-05-01 11:50 | Outpatient (CLI) | payer MEDICARE, MEDICAID, SELFPAY ==
[2018-04-13 12:23] VITALS: BMI 26.9
--- NOTE | 2018-05-01 13:15 | RAD_ITS ---
STUDY: X-RAY CHEST REASON FOR EXAM: Female, 57 years old. Fever. TECHNIQUE: AP and lateral views of the chest. COMPARISON: Comparison is made with prior study dated April 20, 2018. FINDINGS: Limited inspiratory effort. Mild linear atelectasis at the lung bases. There is no demonstrated pleural abnormality. Normal size heart. Normal mediastinum and shanell. Normal visualized pulmonary arteries. Normal visualized aortic arch and descending thoracic aorta. Normal visualized thoracic spine. Normal visualized ribs, clavicles, and shoulders. Large hiatal hernia. RAD/Chest PA and Lateral IMPRESSION: Mild linear atelectasis at the lung bases. Large hiatal hernia. Electronically Signed: Colten Justice MD at 14:07 EST , Service support ,
[2018-05-01 13:21] LABS: Anion Gap 11 (5-15); BUN 11 mg/dL (7-18); BUN/Creat Ratio 16.4 RATIO (10-20); Chloride 104 mmol/L (98-107); Creatinine, Serum 0.67 mg/dL (0.55-1.02); EST Glomerular Filtration Rate 97 mL/min (>60); Est Glom Filt Rate - Afr Amer 117 mL/min (>60); Glucose 98 mg/dL (74-106); Potassium 4.5 mmol/L (3.5-5.1); Sodium Level 143 mmol/L (136-145)
[2018-05-01 14:50] LABS: Red Blood Cells-Urine 0 SEEN /hpf (0-5)
[2018-05-01 15:30] LABS: Color, Urine Amber (Yellow); Glucose, Dipstick Normal (Normal); Ketone-Dipstick 50 mg/dl (Negative); Leukocyte Esterase-Dipstick 500 /ul (Negative); Nitrite-Dipstick Negative (Negative); Occult Blood-Urine 250 /ul (Negative); Protein-Dipstick 30 mg/dl (Negative); Urine Bilirubin Dipstick 3 mg/dL (Negative); Urine Clarity Sl. Cloudy (Clear); Urine Urobilinogen 4 mg/dl (Normal)
[2018-05-01 15:49] LABS: Mucous, Urine 2+ /hpf (<or=2+)
[2018-05-01 15:50] LABS: Bacteria 1+ /hpf (None Seen); Squamous Epithelial Cells - UA 0-5 SEEN /hpf (5-10); White Blood Cells 0-5 SEEN /hpf (0-5)
== END ==
PROVIDERS: Family Provider Family Medicine Geriatric Medicine; PCP Family Medicine Geriatric Medicine; Referring Provider Family Medicine Geriatric Medicine; Visit Provider Family Medicine Geriatric Medicine
DX: N39.0 Urinary tract infection, site not specified (principal); R10.9 Unspecified abdominal pain; R50.9 Fever, unspecified
CPT/HCPCS: 36415; 71046; 80048; 81001; 87077; 87086; 87088; 87186; 87633

== ENCOUNTER → 2018-05-18 11:04 | Outpatient (CLI) | payer MEDICARE, MEDICAID, SELFPAY ==
[2018-04-13 12:23] VITALS: BMI 26.9
[2018-05-18 12:53] LABS: Absolute Lymphocyte Count 1.83 X10^3/ul (0.83-4.51); Absolute Neutrophil Count 9.5 X10^3/uL (2.0-7.7); Basophil# 0.01 X10^3/uL; Basophil% 0.1 % (0-1); Eosinophil# 0.08 X10^3/uL; Eosinophils% 0.7 % (0-5); Hematocrit 33.6 % (37-47); Hemoglobin 10.2 g/dl (12.0-15.0); Lymphocyte # 1.83 X10^3/ul (4.0); Mean Corp Hgb Conc 30.4 g/gl (32-36); Mean Corpuscular Hgb 26.7 pg (27.0-32.0); Mean Platelet Vol. 10.3 fl (6.2-12.0); Monocyte# 0.81 X10^3/uL; Monocyte% 6.6 % (0-10); Neutrophil # 9.48 X10^3/uL (2.7-7.7); Neutrophil % 77.4 % (47-70); Platelet Count 323 K/mm3 (150-450); RBC Distribution Width CV 17.1 % (11.6-14.6); RBC Distribution Width SD 54.6 fl (35.1-43.9); Red Blood Count 3.82 M/mm3 (4.2-5.4); White Blood Count 12.2 K/mm3 (4.4-11.0)
[2018-05-18 12:54] LABS: POSITIVE COUNT NO; POSITIVE DIFFERENTIAL NO; POSITIVE MORPHOLOGY NO
== END ==
PROVIDERS: Family Provider Family Medicine Geriatric Medicine; PCP Family Medicine Geriatric Medicine; Visit Provider Family Medicine Geriatric Medicine
DX: D64.9 Anemia, unspecified (principal)
CPT/HCPCS: 36415; 85025

== ENCOUNTER 2018-05-25 08:43 | Day surgery (SDC) | payer MEDICARE, MEDICAID, SELFPAY ==
[2018-04-13 12:23] VITALS: BMI 26.9
[2018-05-25 09:34] VITALS: BP 132/67; PULSE 72; RESP 16; TEMP 36.6; O2SAT 97; BMI 25.4
--- NOTE | 2018-05-25 10:08 | RAD_ITS ---
STUDY: X-RAY - RIGHT HIP REASON FOR EXAM: Female, 57 years old. Right hip injection TECHNIQUE: 2 views of the hip. COMPARISON: None. FINDINGS: Single image was submitted, as radiology support for c-arm imaging in the operating room. This is not a diagnostic examination. Images for documentation purposes only. Fluoroscopy time if reported: 4.7 seconds RAD/Fluoro Guided Needle Placement IMPRESSION: Intraoperative fluoroscopic image guidance. Electronically Signed: Yessica Hernandez MD at 2:45 EDT , Service support ,
[2018-05-25] MEDS: MethylPREDNISolone Acetate 80 MG/ML Vial (10:10)
[2018-05-25] MEDS: Bupivacaine 0.25% 30 ML Vial (10:10)
[2018-05-25 10:17] VITALS: BP 132/67; BP 95/61; PULSE 75; RESP 16; TEMP 36.7; O2SAT 94
[2018-05-25 10:20] VITALS: BP 119/64; BP 132/67; PULSE 70; RESP 16; O2SAT 97
[2018-05-25 10:25] VITALS: BP 132/67; BP 92/71; PULSE 75; RESP 16; O2SAT 97
[2018-05-25 10:30] VITALS: BP 132/67; BP 99/74; PULSE 75; RESP 16; TEMP 36.8; O2SAT 99
--- NOTE | 2018-05-25 10:45 | OP.PCM_ITS ---
Problem List (1) Unilateral primary osteoarthritis, right hip Status: Chronic Report of Operation Date of Procedure: 05/25/18 Pre-Operative Diagnosis: Osteoarthritis of the right hip Post-Operative Diagnosis: Osteoarthritis of the right hip Surgery/Procedure Performed:: Right hip intra-articular steroid injection under fluoroscopic guidance Description of Surgical Findings:: PROCEDURE: Right hip intra-articular steroid injection under fluoroscopic guidance PREOPERATIVE DIAGNOSIS: Osteoarthritis of the right hip POSTOPERATIVE DIAGNOSIS: Osteoarthritis of the right hip ANESTHESIA: MAC COMPLICATIONS: None BLOOD LOSS: Minimal PROCEDURE IN DETAIL: History and physical today was reviewed. Risks and benefits of the procedure were explained. The patient understood, agreed to our procedure, and informed consent was obtained. IV inserted per routine protocol. The patient was taken to the operating room, placed in a supine position the right hip was prepped and draped in a sterile fashion using iodine ?3 under fluoroscopy guidance AP view of the right hip joint was visualized the skin and subcutaneous tissue and size approximately 3 cc of 1% lidocaine using a 25-gauge regular needle approximately 3 cm cephalad to the right greater trochanter under direct visualization fluoroscopy on AP view using a lateral approach using a 22-gauge 5 inch spinal needle the needle was advanced via the skin the tip of the needle's maneuver and directed towards the superiormost aspect of the hip joint once tip of the needle is at the vicinity of the joint after negative aspiration for blood a total of 1 cc of contrast were injected to confirm correct placement of the needle as well as halo spread around the hip joint after repeated confirmation on AP as well as oblique view and repeated negative aspiration a total of 10 cc of preservative- free 0.25% Marcaine with 80 mg of the portal was injected easily the needle was then removed intact patient experienced no sinus symptoms intrathecal or intravascular injection patient experienced no paresthesia. The procedure was completed without any apparent difficult, any complication. The patient appeared to tolerate well. ASSESSMENT AND PLAN: This is a 57-year-old female with osteoarthritis of the right hip status post right hip intra-articular steroid injection under fluoroscopic guidance. The patient will continue her current medications. The patient will follow in approximately 2 weeks for reevaluation.
[2018-05-25 10:53] VITALS: BP 132/67
== END 2018-05-25 11:05 | disposition home or self-care (01) ==
LOC: SDC 08:45 → AC 09:09
PROVIDERS: Family Provider Family Medicine Geriatric Medicine; PCP Family Medicine Geriatric Medicine; Referring Provider Anesthesiology Pain Medicine; Visit Provider Anesthesiology Pain Medicine
PROC: 3E0U3GC Introduction of Other Therapeutic Substance into Joints, Percutaneous Approach (ICD-10-PCS; CPT 20610; principal; 2018-05-25 09:35)
DX: M16.11 Unilateral primary osteoarthritis, right hip (principal); G80.9 Cerebral palsy, unspecified; E78.5 Hyperlipidemia, unspecified; E03.9 Hypothyroidism, unspecified; E55.9 Vitamin D deficiency, unspecified; K21.9 Gastro-esophageal reflux disease without esophagitis; F32.9 Major depressive disorder, single episode, unspecified; Z78.0 Asymptomatic menopausal state; Z95.810 Presence of automatic (implantable) cardiac defibrillator
CPT/HCPCS: 20610; 76000; 77002; J7120

== ENCOUNTER 2018-05-28 10:29 | Day surgery (SDC) | payer MEDICARE, MEDICAID, SELFPAY ==
--- NOTE | 2018-05-28 09:09 | PCM.HP.BLA ---
History and Physical Date of Admission: 05/28/18 HISTORY AND PHYSICAL ? Tonya Fletcher 1960 ? REFERRING PHYSICIAN: ??Rocky Barlow Chi, MD ? CHIEF COMPLAINT: ??discuss egd ? HPI: The patient is a 57 year old female referred for endoscopy. ?Tonya's caregivers?notes no current colon complaints ? The patient ?has the following upper GI history. ?I evaluated her as an inpatient at [facility] on May 2017 and performed upper endoscopy on May 21, 2017. ?The patient was found to have a large hiatal hernia with approximately half her stomach above the diaphragm of shortened esophagus and distal esophagitis. ?The patient was placed on proton pump inhibitors and referred for consideration of hiatal hernia repair. ?The patient was evaluated this year for hiatal hernia repair and given the inability to test for manometry given her developmental issues, communication issues and issues related to infantile cerebral palsy was felt not to be a good candidate for antireflux surgery. ? The patient presents now with caregivers noting that she vomited coffee-ground emesis in the last few days. ? ? The patient is being seen by me today at the request of Dr.?Rocky Barlow MD?for my opinion and advice regarding coffee-ground emesis. ? ? PAST?MEDICAL?HISTORY PAST MEDICAL HISTORY Diagnosis Date ? Allergic rhinitis due to other allergen ? ? Depressive disorder, not elsewhere classified ? ? Sees Dr. Anna Tomlin from [facility] ? Esophageal reflux ? ? suspected cause of emesis episodes ? Other chronic allergic conjunctivitis ? ? daily symptoms; responds to Patanol ? Other specified infantile cerebral palsy ? ? 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 ? Subclinical hyperthyroidism 11/11/2006 ? ?labs this date c/w hyperthyroidism; labs ordered to verify since TSH suppressed ? Unspecified constipation 05/14/2005 ? ? PAST?SURGICAL?HISTORY PAST SURGICAL HISTORY Procedure Laterality Date ? EGD W/O OR W/BRUSH/WASH ? 05/22/2017 ? EGD w/biopsy [facility] ? PAST SURGICAL HISTORY OF ? 08/08/1989 ? gavi in right thigh ? PAST SURGICAL HISTORY OF ? ? ? cerebral implant ? PAST SURGICAL HISTORY OF ? ? ? Pacemaker ? ? CURRENT?MEDICATIONS ? Current Outpatient Medications: azithromycin (ZITHROMAX) 200 mg/5 mL suspension Give 11 mL day one then 5.5 mL once a day on days 2-5 guaiFENesin (CHILD MUCINEX CHEST CONGESTION) 100 mg/5 mL syrup Take 10 mL by mouth three times daily as needed. albuterol HFA (PROAIR HFA) 90 mcg/actuation inhaler Inhale 2 Puffs as instructed every 6 hours as needed. albuterol HFA (PROVENTIL HFA, VENTOLIN HFA) 90 mcg/actuation inhaler Inhale 2 Puffs as instructed every 4 hours as needed for Wheezing/Shortness of Breath. meloxicam (MOBIC) 7.5 mg tablet Take 7.5 mg by mouth once daily. senna (SENNA) 8.6 mg tab Take 8.6 mg by mouth twice daily. guaiFENesin (CHILD MUCINEX CHEST CONGESTION) 100 mg/5 mL syrup Take 20 mL by mouth three times daily as needed. Mirtazapine (REMERON) 7.5 mg tablet Take 7.5 mg by mouth daily at bedtime. ergocalciferol, vitamin D2, (VITAMIN D) 50,000 unit capsule Take 50,000 Units by mouth once each week. FLUOXETINE HCL (PROZAC ORAL) Take 7.5 mL by mouth once daily. pseudoephedrine-guaiFENesin (,MUCINEX-D,) 60-600 mg per tablet Take 1-2 tablets by mouth every 12 hours. ibuprofen (MOTRIN) 800 mg tablet Take 1 tablet by mouth every 6 hours as needed for Pain. Take with food. melatonin 3 mg tab take 1.5 tablets( 4.5mg) daily at bedtime lactulose (GENERLAC) 20 gram/30 mL solution Take 30 mL by mouth twice daily. omeprazole (PRILOSEC) 20 mg capsule Take 1 capsule by mouth once daily. take in AM 1/2 hour before eating Loratadine (ALLERGY RELIEF, LORATADINE,) 10 mg dissolvable tablet Take 1 tablet by mouth once daily. levothyroxine (SYNTHROID) 75 mcg tablet Take 1 tablet by mouth once daily. (Patient taking differently: Take 50 mcg by mouth once daily. ) Azelastine HCl (OPTIVAR) 0.05 % ophthalmic solution Use 1 Drop in both eyes twice daily as needed. phenol (CHLORASEPTIC THROAT SPRAY) 1.4 % SprA Use 1 [place] as instructed as needed. DESITIN 40 % OINTMENT Apply to buttocks twice daily COMPOUNDED PRESCRIPTION Light talker Prentke Romich Pathfinder Device with Table Mount, Wheelchair ?Mount and carrying case ???Diagnosis: Cerebral Palsy 343.8 Note: patient has no functional speech abilities WHEELCHAIR CUSHION MISC Use daily for prevention of decubitus MILK OF MAGNESIA 400 MG/5 ML ORAL SUSP as needed ? No current facility-administered medications for this visit.? ? ALLERGIES:?Augmentin [Amoxicillin-Pot Clavulanate]; Other [Other]; Potassium ? PERSONAL HISTORY:? 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 FAMILY HISTORY:? FAMILY?HISTORY FAMILY HISTORY Problem Relation Age of Onset ? other (UNKNOWN [Other]) Unknown ? ? REVIEW OF SYMPTOMS: ??The review of systems data was entered by the nurse and reviewed by me ? Nursing Notes: Jory Stiles LPN ?05/22/2018 ?3:53 PM ?Signed REVIEW OF SYSTEMS: ?General:???The patient denies fatigue, denies weight loss, denies weight gain, denies feeling hot, and denies feelings of cold. ?Eyes: ?The patient denies glaucoma, denies eye injury/surgery, does not wear glasses or contacts. ?Ear/Nose/Throat: ?The patient NOTES allergies, denies hayfever, denies ear infections, and denies bloody noses. ?Cardiovascular: ?The patient denies chest pain, denies heart disease, denies high blood pressure,denies cardiac stent, denies prior heart attack, denies irregular heart beat, denies high cholesterol, ?denies poor circulation, denies heart failure, other cardiac issues, denies claudication, denies cold feet, denies peripheral arterial stent. ?Respiratory: ?The patient denies tuberculosis, denies pneumonia, denies frequent cough, denies pulmonary embolism, denies shortness of breath, and denies coughing up blood. ?Gastrointestinal: ?The patient denies difficulty swallowing, denies acid reflux, denies ulcers, denies vomiting, denies jaundice/hepatitis, denies gallbladder problems, denies black or tarry stools, denies hemorrhoids, denies bleeding from rectum, denies diverticulitis, NOTES constipation, denies diarrhea, NOTES loss of stool control, and denies hernias. ?Kidney/Bladder: ?The patient denies kidney stones, denies urine infections, and denies bloody urine. ?Skin: ?The patient denies a history of skin cancer, denies bleeding/changing moles, and denies a history of skin rash. ?Neurologic: ?The patient denies a history of epilepsy/convulsions, denies headaches, denies head/spinal injuries, and denies stroke/TIA. ?Psychiatric: ?The patient denies psychiatric medications, denies depression, and denies voices, denies substance abuse. ?Endocrine: ?The patient NOTES thyroid disorders, denies diabetes, and denies hormonal problems. ?Hematologic: ?The patient denies a history of bruising, denies bleeding, and denies anemia, denies blood clots. ?Infections: ?The patient denies a history of measles and mumps, denies rheumatic fever, and denies sexually transmitted diseases. ?Musculoskeletal: ?The patient denies back pain/injury, denies back problems, denies sciatica, denies knee/foot trouble, denies arthritis, or denies gout. ? ? When was patient's last Mammogram screening? 2014 ? ?Last Colonoscopy: ?None ? Jory Linsey ARIASN ? PHYSICAL EXAMINATION: ? General: ?The patient is 57 year old female, well nourished, well hydrated in no acute distress. ?The patient notes challenging from a communication standpoint but when you talk to her she does respond offering affirmative and negative responses to questions. ? VITALS:?Blood pressure 118/66, pulse 70, weight 61.1 kg (134 lb 9.6 oz).?Body mass index is 26.29 kg/m?.? ? HEENT: ?Normal cephalic, ataumatic, pupils are equally round, sclera are anicteric, mucous membranes are moist, oropharynx is clear. ?Neck has no masses, asymmetry or lymphadenopathy. ?Thyroid is unremarkable. ? Respiratory: ?Clear to auscultation and percussion. ?Normal respiratory excursion and pattern. ? Cardiac: ?Examination is regular rate and rhythm. ? Abdominal exam: ?Soft, nontender, ?with no palpable masses. ?No hepatosplenomegaly. ?No palpable hernias. ? Rectal exam:?exam deferred ? Extremities: Patient in chronic wheelchair due to medical comorbidities ? Other: ? LABORATORY VALUES: As Noted ? RADIOLOGIC STUDIES: ?As Noted ? Assessment ? IMPRESSION: Coffee-ground emesis ? PLAN: ?I plan to perform upper?endoscopy. ??We discussed the risks and benefits of the planned endoscopy. ?I have informed the patient that complications can occur including failure to complete the endoscopy and perforation. ?The patient had the opportunity to ask questions concerning the planned endoscopy. ?My staff has also explained the procedure to the patient in understandable terms and has given the patient printed material concerning the procedure. ?The patient freely consents to surgery. ? ? ? I plan for monitored anesthetic care. ? Diagnoses:?(K92.0) Coffee ground emesis ?(primary encounter diagnosis) ? A letter was sent to Dr.?Rocky Barlow MD?indicating the above finding for this patient. ?? Return to Clinic: The patient is instructed to follow-up with me?1 week post operatively. ? Jalen Ferris MD
[2018-05-28 10:58] VITALS: BP 131/72; PULSE 87; RESP 16; TEMP 36.8; O2SAT 99; BMI 25.4
--- NOTE | 2018-05-28 11:30 | IMM_PTH ---
PATIENT: SUNNI GUIDRY LOC: EN U#:[id number] AGE/SX: 57/F ROOM: RE05/28/[address]: Dr. Jalen Ferris MD : 1960 BED: DIS: 05/28/2018 SPEC #: [id number] RECD: 05/28/18 11:56 STATUS: LOIDA REQ #: [id number] DANIEL: 05/28/18 11:[address]: Jalen Ferris DEPT: IMMUNOHISTOCHEMISTRY RECD BY: Roxana Patel ENTERED: 05/28/18 15:50 SP TYPE: IMMUNO OTHR DR: Dr. Rocky Barlow MD Tissues: A - Stomach, NOS Procedures: H Pylori (initial) PHYSICIAN & INSTITUTION [place] [id number] SPECIMEN INFORMATION: Tissue Source: A - Antrum biopsy Clinical Info: Coffee-ground emesis Specimen Number: [id number] CPT code: 99395 METHODOLOGY: Deparaffinized sections of prefer/formalin-fixed tissue or PAP/DQ stained slides are incubated with monoclonal/polyclonal antibodies/oligonucleotide probes. Localization is made via biotin free immunoperoxidase method. Appropriate controls are performed and reacted as expected. Results on target cell population are indicated in the following table: RESULTS: ANTIBODY / CLONE RESULT Block A H Pylori (polyclonal) negative These tests were developed and their performance characteristics determined by [facility]. They may not have been cleared or approved by the U.S. Food and Drug Administration. The FDA has determined that such clearance or approval is not necessary. INTERPRETATION: A. Antrum biopsy: Negative for Helicobacter pylori organisms. AM:andres 06/01/18
--- NOTE | 2018-05-28 11:30 | EGD_PTH ---
PATIENT: SUNNI GUIDRY LOC: EN U#:[id number] AGE/SX: 57/F ROOM: RE05/28/[address]: Dr. Jalen Ferris MD : 1960 BED: DIS: 05/28/2018 SPEC #: [id number] RECD: 05/28/18 11:56 STATUS: LOIDA RETorres #: [id number] DANIEL: 05/28/18 11:[address]: Jalen Ferris DEPT: SURGICAL PATHOLOGY RECD BY: Onel Gamino ENTERED: 05/28/18 13:21 SP TYPE: EGD BIOPSY OTHR DR: Dr. Rocky Barlow MD Tissues: A - Gastric mucous membrane B - Esophageal mucous membrane Procedures: Special Stain Group II Surgery Specimen Level IV Alcian Blue/PAS (control) HEADER OPERATION: [place] PRE-OP DIAGNOSIS: Coffee-ground emesis TISSUE SUBMITTED: A - Antrum for H. pylori and path biopsy, B - Distal esophagus biopsy ?CMV MICROSCOPIC DIAGNOSIS A. Gastric antrum, biopsy: Mild chronic gastritis. See comment. B. Distal esophagus, biopsy: Gastric mucosa with focal intestinal metaplasia. No evidence of dysplasia. Mild chronic and focal acute inflammation. See comment. AM:andres 05/29/18 COMMENT A. The results of immunohistochemistry for Helicobacter pylori will be reported separately ([id number]). B. Squamous mucosa is not represented in the biopsy. There is no evidence of CMV infection. Clinical correlation is suggested. Alcian blue/PAS stain with matched control supports the above diagnosis. MICROSCOPIC DESCRIPTION Slides are reviewed. GROSS DESCRIPTION A - Received in fixative is one container labeled with the patient's name and designated antrum biopsy. The specimen consists of one irregular fragment of light south soft tissue that measures 0.5 x 0.3 x 0.1 cm. The specimen is totally submitted in one cassette. B - Received in fixative is one container labeled with the patient's name and designated distal esophagus biopsy. The specimen consists of one irregular fragment of light south soft tissue that measures 0.5 x 0.3 x 0.1 cm. The specimen is totally submitted in one cassette. / ROSA MARIA:andres 05/28/18 TC:5 CPT: 90365 x2, 43934
[2018-05-28 11:47] VITALS: BP 112/94; BP 131/72; PULSE 105; RESP 16; TEMP 36.5; O2SAT 94
--- NOTE | 2018-05-28 11:50 | OP.ENDO_ITS ---
05/28/2018 Rocky Barlow MD [address] [place] [address] Re : Upper GI endoscopy procedure for Tonya Fletcher Dear Dr. Barlow This procedure was performed on May. My impressions and recommendations are as follows: Impressions : - Normal examined jejunum. - Normal examined duodenum. - Gastritis. Biopsied. - Large hiatal hernia. - Non-bleeding esophageal ulcers. Biopsied. Recommendations : - Return to my office in 1 week. - Continue present medications. My findings are described in the full procedure note, which is enclosed. If I can be of further assistance, please feel free to contact me at Doctor phone number(s): , Work: . Sincerely, Jalen Ferris MD 05/28/2018 11:50:00 AM This report has been signed electronically.
[2018-05-28 11:52] VITALS: BP 107/63; BP 131/72; PULSE 90; RESP 16; O2SAT 95
[2018-05-28 11:57] VITALS: BP 131/72; BP 99/84; PULSE 88; RESP 16; O2SAT 94
[2018-05-28 12:02] VITALS: BP 131/72; BP 90/76; PULSE 84; RESP 16; TEMP 36.6; O2SAT 97
[2018-05-28 12:35] VITALS: BP 131/72
== END 2018-05-28 12:45 | disposition home or self-care (01) ==
LOC: EN 10:29 → AC 10:30
PROVIDERS: Family Provider Family Medicine Geriatric Medicine; PCP Family Medicine Geriatric Medicine; Referring Provider Surgery; Visit Provider Surgery
PROC: 0DJ08ZZ Inspection of Upper Intestinal Tract, Via Natural or Artificial Opening Endoscopic (ICD-10-PCS; CPT 43235; principal; 2018-05-28 11:25)
DX: K22.10 Ulcer of esophagus without bleeding (principal); K29.70 Gastritis, unspecified, without bleeding; K44.9 Diaphragmatic hernia without obstruction or gangrene; G80.9 Cerebral palsy, unspecified; J30.89 Other allergic rhinitis; K59.00 Constipation, unspecified; K21.9 Gastro-esophageal reflux disease without esophagitis; I69.928 Other speech and language deficits following unspecified cerebrovascular disease; E05.90 Thyrotoxicosis, unspecified without thyrotoxic crisis or storm; F32.9 Major depressive disorder, single episode, unspecified; Z79.899 Other long term (current) drug therapy
CPT/HCPCS: 43239; 88305; 88313; 88342; J7120

== ENCOUNTER 2018-06-24 11:52 | Day surgery (SDC) | payer MEDICARE, MEDICAID, SELFPAY ==
--- NOTE | 2018-06-23 14:58 | PCM.HP.BLA ---
History and Physical Date of Admission: 06/23/18 HISTORY AND PHYSICAL ? Tonya Fletcher 1960 ? REFERRING PHYSICIAN: ??Rocky Barlow Chi, MD ? CHIEF COMPLAINT: ??discuss egd ? HPI: The patient is a 57 year old female referred for endoscopy. ?Tonya's caregivers notes no current colon complaints ? The patient ?has the following upper GI history. ?I evaluated her as an inpatient at [facility] on May 2017 and performed upper endoscopy on May 21, 2017. ?The patient was found to have a large hiatal hernia with approximately half her stomach above the diaphragm of shortened esophagus and distal esophagitis. ?The patient was placed on proton pump inhibitors and referred for consideration of hiatal hernia repair. ?The patient was evaluated this year for hiatal hernia repair and given the inability to test for manometry given her developmental issues, communication issues and issues related to infantile cerebral palsy was felt not to be a good candidate for antireflux surgery. ? The patient presents now with caregivers noting that she vomited coffee-ground emesis in the last few days. ? I performed upper endoscopy on May 28, 2018. ?The patient was found to have gastritis and distal esophagitis with ulcerations present. ? Pathology returned as mild chronic gastritis. ?Distal esophagus returned as gastric mucosa with focal intestinal metaplasia. ?There was no evidence of dysplasia. ?There was felt to be no evidence of CMV infection. ? I was comfortable that I was over the level of the GE junction at biopsy. ? PAST?MEDICAL?HISTORY PAST MEDICAL HISTORY Diagnosis Date ? Allergic rhinitis due to other allergen ? ? Depressive disorder, not elsewhere classified ? ? Sees Dr. Anna Tomlin from [facility] ? Esophageal reflux ? ? suspected cause of emesis episodes ? Other chronic allergic conjunctivitis ? ? daily symptoms; responds to Patanol ? Other specified infantile cerebral palsy ? ? 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 ? Subclinical hyperthyroidism 11/11/2006 ? ?labs this date c/w hyperthyroidism; labs ordered to verify since TSH suppressed ? Unspecified constipation 05/14/2005 ? ? PAST?SURGICAL?HISTORY PAST SURGICAL HISTORY Procedure Laterality Date ? EGD W/O OR W/BRUSH/WASH ? 05/22/2017 ? EGD w/biopsy [facility] ? EGD W/O OR W/BRUSH/WASH ? 05/28/2018 ? EGD ? PAST SURGICAL HISTORY OF ? 08/08/1989 ? gavi in right thigh ? PAST SURGICAL HISTORY OF ? ? ? cerebral implant ? PAST SURGICAL HISTORY OF ? ? ? Pacemaker ? ? CURRENT?MEDICATIONS ? Current Outpatient Medications: omeprazole (PRILOSEC) 20 mg capsule Take 2 capsules by mouth once daily. take in AM 1/2 hour before eating ondansetron orally disintegrating (ZOFRAN ODT) 4 mg disintegrating tablet Take 1 tablet by mouth every 8 hours as needed. azithromycin (ZITHROMAX) 200 mg/5 mL suspension Give 11 mL day one then 5.5 mL once a day on days 2-5 guaiFENesin (CHILD MUCINEX CHEST CONGESTION) 100 mg/5 mL syrup Take 10 mL by mouth three times daily as needed. albuterol HFA (PROAIR HFA) 90 mcg/actuation inhaler Inhale 2 Puffs as instructed every 6 hours as needed. albuterol HFA (PROVENTIL HFA, VENTOLIN HFA) 90 mcg/actuation inhaler Inhale 2 Puffs as instructed every 4 hours as needed for Wheezing/Shortness of Breath. meloxicam (MOBIC) 7.5 mg tablet Take 7.5 mg by mouth once daily. senna (SENNA) 8.6 mg tab Take 8.6 mg by mouth twice daily. guaiFENesin (CHILD MUCINEX CHEST CONGESTION) 100 mg/5 mL syrup Take 20 mL by mouth three times daily as needed. Mirtazapine (REMERON) 7.5 mg tablet Take 7.5 mg by mouth daily at bedtime. ergocalciferol, vitamin D2, (VITAMIN D) 50,000 unit capsule Take 50,000 Units by mouth once each week. FLUOXETINE HCL (PROZAC ORAL) Take 7.5 mL by mouth once daily. pseudoephedrine-guaiFENesin (,MUCINEX-D,) 60-600 mg per tablet Take 1-2 tablets by mouth every 12 hours. ibuprofen (MOTRIN) 800 mg tablet Take 1 tablet by mouth every 6 hours as needed for Pain. Take with food. melatonin 3 mg tab take 1.5 tablets( 4.5mg) daily at bedtime lactulose (GENERLAC) 20 gram/30 mL solution Take 30 mL by mouth twice daily. Loratadine (ALLERGY RELIEF, LORATADINE,) 10 mg dissolvable tablet Take 1 tablet by mouth once daily. levothyroxine (SYNTHROID) 75 mcg tablet Take 1 tablet by mouth once daily. (Patient taking differently: Take 50 mcg by mouth once daily. ) Azelastine HCl (OPTIVAR) 0.05 % ophthalmic solution Use 1 Drop in both eyes twice daily as needed. phenol (CHLORASEPTIC THROAT SPRAY) 1.4 % SprA Use 1 [place] as instructed as needed. DESITIN 40 % OINTMENT Apply to buttocks twice daily COMPOUNDED PRESCRIPTION Light talker Maryann[employer]ure Fortress Pathfinder Device with Table Mount, Wheelchair ?Mount and carrying case ???Diagnosis: Cerebral Palsy 343.8 Note: patient has no functional speech abilities WHEELCHAIR CUSHION MISC Use daily for prevention of decubitus MILK OF MAGNESIA 400 MG/5 ML ORAL SUSP as needed sucralfate (CARAFATE) 100 mg/mL suspension Take 10 mL by mouth four times daily. ? No current facility-administered medications for this visit.? ? ALLERGIES:?Augmentin [Amoxicillin-Pot Clavulanate]; Other [Other]; Potassium ? PERSONAL HISTORY:? 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 FAMILY HISTORY:? FAMILY?HISTORY FAMILY HISTORY Problem Relation Age of Onset ? other (UNKNOWN [Other]) Unknown ? ? REVIEW OF SYMPTOMS: ??The review of systems data was entered by the nurse and reviewed by me ? There are no exam notes on file for this visit. ? PHYSICAL EXAMINATION: ? General: ?The patient is 57 year old female, well nourished, well hydrated in no acute distress. ?The patient notes challenging from a communication standpoint but when you talk to her she does respond offering affirmative and negative responses to questions. ? VITALS:?Blood pressure 118/72, pulse 91, temperature (!) 35.8 ?C (96.5 ?F), temperature source Temporal, resp. rate 18, SpO2 96 %.?There is no height or weight on file to calculate BMI.? ? HEENT: ?Normal cephalic, ataumatic, pupils are equally round, sclera are anicteric, mucous membranes are moist, oropharynx is clear. ?Neck has no masses, asymmetry or lymphadenopathy. ?Thyroid is unremarkable. ? Respiratory: ?Clear to auscultation and percussion. ?Normal respiratory excursion and pattern. ? Cardiac: ?Examination is regular rate and rhythm. ? Abdominal exam: ?Soft, nontender, ?with no palpable masses. ?No hepatosplenomegaly. ?No palpable hernias. ? Rectal exam: exam deferred ? Extremities: Patient in chronic wheelchair due to medical comorbidities ? Other: ? LABORATORY VALUES: As Noted ? RADIOLOGIC STUDIES: ?As Noted ? Assessment ? IMPRESSION: Coffee-ground emesis, gastritis, distal esophagitis with ulcerations ? PLAN: ? We will add Carafate 4 times a day to her current regime. ?Given the ulcerations in the esophagus and her MRDD issues, I plan to repeat her perform upper endoscopy in approximately one month to assure she is healing. ??We discussed the risks and benefits of the planned endoscopy. ?I have informed the patient that complications can occur including failure to complete the endoscopy and perforation. ?The patient had the opportunity to ask questions concerning the planned endoscopy. ?My staff has also explained the procedure to the patient in understandable terms and has given the patient printed material concerning the procedure. ?The patient freely consents to surgery. ? ? ? I plan for monitored anesthetic care. ? Diagnoses:?(K92.0) Coffee ground emesis ?(primary encounter diagnosis) (K44.9) Hiatal hernia (K20.9) Acute esophagitis ? A letter was sent to Dr. Rocky Barlow MD indicating the above finding for this patient. ?? Return to Clinic: The patient is instructed to follow-up with me 1 week post operatively. ? Jalen Ferris MD
[2018-06-24] VITALS (7 sets, daily range): BP systolic 83–111; BP diastolic 47–77; PULSE 69–81; RESP 18; TEMP 36.7–37.1; O2SAT 96–100; BMI 26.4
--- NOTE | 2018-06-24 | GASB_PTH ---
PATIENT: SUNNI GUIDRY LOC: EN U#:[id number] AGE/SX: 57/F ROOM: RE06/24/[address]: Dr. Jalen Ferris MD : 1960 BED: DIS: 06/24/2018 SPEC #: [id number] RECD: 06/24/18 14:28 STATUS: LOIDA REQ #: [id number] DANIEL: 06/24/18 00:[address]: Jalen Ferris DEPT: SURGICAL PATHOLOGY RECD BY: Anirudh Wen ENTERED: 06/24/18 14:28 SP TYPE: Gastric Bx OTHR DR: Dr. 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 Focal chronic inflammation. Negative for dysplasia. ROSA MARIA:andres 06/25/18 COMMENT Alcian blue/PAS stain with matched control is used in the evaluation of the specimen. Please make reference to previous specimen ([id number]) gastric antrum, biopsy with diagnosis of mild to moderate chronic gastritis and esophagus, biopsy with diagnosis of focal goblet cell metaplasia, consistent with Arias's esophagus and no evidence of dysplasia and ([id number]) gastric antrum, biopsy with diagnosis of mild chronic gastritis and distal esophagus, biopsy with diagnosis of gastric mucosa with focal intestinal metaplasia and mild chronic and focal acute inflammation. MICROSCOPIC DESCRIPTION Slides are reviewed. GROSS DESCRIPTION Received in fixative is one container labeled with the patient's name and designated GE junction biopsy. The specimen consists of one irregular fragment of light south soft tissue that measures 0.4 x 0.2 x 0.1 cm. The specimen is totally submitted in one cassette. / ROSA MARIA:andres 06/24/18 TC:3 CPT: 00719, 80113
--- NOTE | 2018-06-24 13:34 | OP.ENDO_ITS ---
06/24/2018 Rocky Barlow MD [address] [place] [address] Re : Upper GI endoscopy procedure for Tonya Fletcher Dear Dr. Barlow This procedure was performed on Sunday, June 24, 2018. My impressions and recommendations are as follows: Impressions : - Normal examined jejunum. - Normal. - Normal antrum. - Medium-sized hiatal hernia. - Non-bleeding esophageal ulcers. Biopsied. Recommendations : - Return to my office in 1 week. - Continue present medications. My findings are described in the full procedure note, which is enclosed. If I can be of further assistance, please feel free to contact me at Doctor phone number(s): , Work: . Sincerely, Jalen Ferris MD 06/24/2018 1:34:14 PM This report has been signed electronically.
== END 2018-06-24 14:26 | disposition home or self-care (01) ==
LOC: EN 11:53 → AC 11:54
PROVIDERS: Family Provider Family Medicine Geriatric Medicine; PCP Family Medicine Geriatric Medicine; Referring Provider Family Medicine Geriatric Medicine; Visit Provider Surgery
PROC: 0DJ08ZZ Inspection of Upper Intestinal Tract, Via Natural or Artificial Opening Endoscopic (ICD-10-PCS; CPT 43235; principal; 2018-06-24 12:55)
DX: K44.9 Diaphragmatic hernia without obstruction or gangrene (principal); K29.50 Unspecified chronic gastritis without bleeding; G80.8 Other cerebral palsy; F32.9 Major depressive disorder, single episode, unspecified; Z79.899 Other long term (current) drug therapy; I69.328 Other speech and language deficits following cerebral infarction; E05.90 Thyrotoxicosis, unspecified without thyrotoxic crisis or storm; Z95.0 Presence of cardiac pacemaker; F79 Unspecified intellectual disabilities; K22.10 Ulcer of esophagus without bleeding
CPT/HCPCS: 43239; 88305; 88313; J7120; J2405

== ENCOUNTER → 2018-07-14 15:08 | Outpatient (CLI) | payer MEDICARE, MEDICAID, SELFPAY ==
[2018-06-24 12:00] VITALS: BMI 26.4
[2018-07-14 17:33] LABS: Absolute Lymphocyte Count 2.57 X10^3/ul (0.83-4.51); Absolute Neutrophil Count 3.6 X10^3/uL (2.0-7.7); Basophil# 0.04 X10^3/uL; Basophil% 0.6 % (0-1); Eosinophils% 1.4 % (0-5); Hematocrit 28.6 % (37-47); Hemoglobin 8.2 g/dl (12.0-15.0); Lymphocyte # 2.57 X10^3/ul (4.0); Lymphocyte % 37.1 % (19-41); Mean Corp Hgb Conc 28.7 g/gl (32-36); Mean Corpuscular Hgb 21.5 pg (27.0-32.0); Mean Corpuscular Volume 75.1 fL (81-99); Mean Platelet Vol. 11.1 fl (6.2-12.0); Monocyte# 0.66 X10^3/uL; Monocyte% 9.5 % (0-10); Neutrophil # 3.55 X10^3/uL (2.7-7.7); Neutrophil % 51.3 % (47-70); Platelet Count 481 K/mm3 (150-450); RBC Distribution Width CV 18.9 % (11.6-14.6); RBC Distribution Width SD 49.8 fl (35.1-43.9); Red Blood Count 3.81 M/mm3 (4.2-5.4); White Blood Count 6.9 K/mm3 (4.4-11.0)
[2018-07-14 17:34] LABS: POSITIVE COUNT NO; POSITIVE DIFFERENTIAL NO; POSITIVE MORPHOLOGY NO
[2018-07-14 17:38] LABS: D-Dimer Quantitative (DVT/PE) 3.25 FEU/ug/m (0.27-0.49)
[2018-07-14 18:10] LABS: Anion Gap 7 (5-15); BUN 6 mg/dL (7-18); BUN/Creat Ratio 12.3 RATIO (10-20); Calcium,Total 8.5 mg/dL (8.5-10.1); Chloride 107 mmol/L (98-107); Creatinine, Serum 0.49 mg/dL (0.55-1.02); EST Glomerular Filtration Rate 140 mL/min (>60); Est Glom Filt Rate - Afr Amer 169 mL/min (>60); Glucose 88 mg/dL (74-106); Potassium 3.3 mmol/L (3.5-5.1); Sodium Level 143 mmol/L (136-145)
[2018-07-14 18:20] LABS: BNP,B-Type NATRIURETIC PEPTIDE 24.4 pg/mL (0-100)
== END ==
PROVIDERS: Family Provider Family Medicine Geriatric Medicine; PCP Family Medicine Geriatric Medicine; Visit Provider Family Medicine Geriatric Medicine
DX: R06.02 Shortness of breath (principal); R60.9 Edema, unspecified
CPT/HCPCS: 36415; 80048; 83880; 85025; 85379

== ENCOUNTER → 2018-07-15 10:39 | Outpatient (CLI) | payer MEDICARE, MEDICAID, SELFPAY ==
[2018-06-24 12:00] VITALS: BMI 26.4
--- NOTE | 2018-07-15 10:44 | VDLE_ITS ---
Reason For Study: EDEMA RIGHT Very technically limited study due to pt wheelchair bound with contracted/ atrophied legs. RT and Left CFV are not well visualized. Rt and left SFJ are compressible and fill with color. Rt/Left SFV are compressible and fill with color with normal doppler signal. Rt/Left Popv and T/P Trunk are difficult to visualize. Rt PTV and Goran V are visualized distally and are compressible. Left PTV and PeroV are visualized distally and are compressible. Procedure Exam performed in department. Limited views were obtained. The study was technically difficult. A preliminary report was called and/or faxed to Dr Barlow. Interpretation Summary 1. righ leg with no DVT seen but technical difficult study. Ordering Physician: Rocky Barlow Referring Physician: Rocky Barlow Chi Performed By: Pearl Hopkins, ESTELA, RVT
--- NOTE | 2018-07-15 11:31 | CT_ITS ---
STUDY: CTA CHEST REASON FOR EXAM: Female, 58 years old. Lower leg swelling, rule out pulmonary embolism RADIATION DOSAGE (If Supplied By Facility): CTDIvol = ( 7.81 ) mGy, DLP = ( 437.13 ) mGycm TECHNIQUE: The examination was performed with the intravenous administration of 100 IV Isovue 370. Post-processing of the angiographic images was performed, with multiplanar reformation and 3D reconstruction. Individualized dose optimization techniques were used for this CT. COMPARISON: CTA chest dated May 19, 2017 FINDINGS: There is complete occlusion of the second order branch vessels extending to the right lower lobe compatible with acute pulmonary embolism. There is airspace disease in the right lower lobe with a small Burch's hump sign suggesting early pulmonary infarction. However, in the first and second order branch vessels extending in the left lower lobe, there is a more linear appearance of intraluminal filling defects suggesting more chronic appearing pulmonary emboli. No evidence of acute occlusion on the left. Remaining pulmonary arteries are within normal limits Normal thoracic aorta and visualized great vessels. There is no demonstrated aortic dissection. Borderline cardiomegaly. No evidence of right heart strain. Right chest wall pacer device Normal mediastinum. Normal hilar regions. Normal visualized trachea and bronchi. Remainder the lungs are clear. Normal chest wall structures. There are degenerative changes of thoracic spine. Again noted is either esophageal diverticulum versus large hiatal hernia in the distal esophagus. Remainder of the upper abdomen is within normal limits CT/CTA Chest W/WO Contrast IMPRESSION: 1. Acute pulmonary embolism causing occlusion of the second order branch vessel extending to the right lower lobe with associated right lower lobe airspace disease and Burch's hump sign suggesting pulmonary infarction 2. More chronic appearing pulmonary embolism within the left first and second order branch vessels into the left lower lobe; no evidence of occlusion 3. No evidence of right heart strain. N.B. : Rocky Barlow MD, confirmed on 07/15/2018 12:35:52 (ET) that the referring physician received the results and does not require a verbal communication. Electronically Signed: Sreekanth Cooney DO at 12:36 EDT Tel , Service support ,
== END ==
PROVIDERS: Family Provider Family Medicine Geriatric Medicine; PCP Family Medicine Geriatric Medicine; Referring Provider Family Medicine Geriatric Medicine; Visit Provider Family Medicine Geriatric Medicine
DX: R60.0 Localized edema (principal); R06.02 Shortness of breath
CPT/HCPCS: 71275; 93970; Q9967

== ENCOUNTER → 2018-07-17 10:26 | Outpatient (CLI) | payer MEDICARE, MEDICAID, SELFPAY ==
[2018-06-24 12:00] VITALS: BMI 26.4
[2018-07-17 12:52] LABS: Hematocrit 27.6 % (37-47); Hemoglobin 7.9 g/dl (12.0-15.0)
== END ==
PROVIDERS: Family Provider Family Medicine Geriatric Medicine; PCP Family Medicine Geriatric Medicine; Visit Provider Family Medicine Geriatric Medicine
DX: D64.9 Anemia, unspecified (principal)
CPT/HCPCS: 36415; 85014; 85018

== ENCOUNTER → 2018-07-20 11:10 | Outpatient (CLI) | payer MEDICARE, MEDICAID, SELFPAY ==
[2018-06-24 12:00] VITALS: BMI 26.4
[2018-07-20 12:37] LABS: Hematocrit 29.6 % (37-47); Hemoglobin 8.5 g/dl (12.0-15.0)
== END ==
PROVIDERS: Family Provider Family Medicine Geriatric Medicine; PCP Family Medicine Geriatric Medicine; Visit Provider Family Medicine Geriatric Medicine
DX: D64.9 Anemia, unspecified (principal)
CPT/HCPCS: 36415; 85014; 85018

== ENCOUNTER → 2018-07-24 11:13 | Outpatient (CLI) | payer MEDICARE, MEDICAID, SELFPAY ==
[2018-06-24 12:00] VITALS: BMI 26.4
--- NOTE | 2018-07-24 11:26 | RAD_ITS ---
STUDY: X-RAY - RIGHT FOOT CLINICAL: Female, 58 years old. Pain along the bottom of the right foot TECHNIQUE: 3 view(s) of the foot. COMPARISON: None. FINDINGS: There is diffuse osteopenia. Significant pes planus deformity. Normal visualized subtalar, talonavicular, calcaneocuboid, tarsal and tarsometatarsal articulations. Normal metatarsi. Normal metatarsophalangeal joint of the great toe. Normal tibial and fibular sesamoid bones. Normal interphalangeal joint of the great toe. Normal phalanges of the great toe. Normal second through fifth metatarsophalangeal joints. Normal interphalangeal joints and phalanges of the lesser toes. The soft tissue structures are unremarkable. RAD/Foot min 3 Views IMPRESSION: 1. No fracture or malalignment. Significant osteopenia limits exam. 2. Pes planus Electronically Signed: Roosevelt Cordero MD at 11:29 EDT , Service support ,
[2018-07-24 13:24] LABS: Hematocrit 28.5 % (37-47)
[2018-07-24 13:30] LABS: Anion Gap 9 (5-15); BUN 6 mg/dL (7-18); BUN/Creat Ratio 10.4 RATIO (10-20); Calcium,Total 8.9 mg/dL (8.5-10.1); Chloride 104 mmol/L (98-107); Creatinine, Serum 0.58 mg/dL (0.55-1.02); EST Glomerular Filtration Rate 115 mL/min (>60); Est Glom Filt Rate - Afr Amer 139 mL/min (>60); Glucose 83 mg/dL (74-106); Sodium Level 141 mmol/L (136-145)
== END ==
PROVIDERS: Family Provider Family Medicine Geriatric Medicine; PCP Family Medicine Geriatric Medicine; Referring Provider Family Medicine Geriatric Medicine; Visit Provider Family Medicine Geriatric Medicine
DX: M79.671 Pain in right foot (principal); D64.9 Anemia, unspecified
CPT/HCPCS: 36415; 73630; 80048; 85014; 85018

== ENCOUNTER → 2018-07-28 13:09 | Outpatient (CLI) | payer MEDICARE, MEDICAID, SELFPAY ==
[2018-06-24 12:00] VITALS: BMI 26.4
[2018-07-28 14:07] LABS: Hematocrit 29.2 % (37-47); Hemoglobin 8.3 g/dl (12.0-15.0)
== END ==
PROVIDERS: Family Provider Family Medicine Geriatric Medicine; PCP Family Medicine Geriatric Medicine; Visit Provider Family Medicine Geriatric Medicine
DX: D64.9 Anemia, unspecified (principal)
CPT/HCPCS: 36415; 85014; 85018

== ENCOUNTER → 2018-08-04 10:33 | Outpatient (CLI) | payer MEDICARE, MEDICAID, SELFPAY ==
[2018-06-24 12:00] VITALS: BMI 26.4
[2018-08-04 12:54] LABS: Hematocrit 26.9 % (37-47); Hemoglobin 7.7 g/dl (12.0-15.0)
== END ==
PROVIDERS: Family Provider Family Medicine Geriatric Medicine; PCP Family Medicine Geriatric Medicine; Visit Provider Family Medicine Geriatric Medicine
DX: D64.9 Anemia, unspecified (principal)
CPT/HCPCS: 36415; 85014; 85018

== ENCOUNTER → 2018-08-07 10:13 | Outpatient (CLI) | payer MEDICARE, MEDICAID, SELFPAY ==
[2018-06-24 12:00] VITALS: BMI 26.4
== END ==
PROVIDERS: Family Provider Family Medicine Geriatric Medicine; PCP Family Medicine Geriatric Medicine; Visit Provider Family Medicine Geriatric Medicine
DX: D64.9 Anemia, unspecified (principal)
CPT/HCPCS: 36415; 85014; 85018; 86850; 86900; 86920

== ENCOUNTER 2018-08-08 08:59 | Outpatient (CLI) | payer MEDICARE, MEDICAID, SELFPAY ==
[2018-06-24 12:00] VITALS: BMI 26.4
[2018-08-07 13:16] LABS: Hematocrit 25.9 % (37-47); Hemoglobin 7.3 g/dl (12.0-15.0)
[2018-08-08] VITALS (11 sets, daily range): BP systolic 104–151; BP diastolic 61–99; PULSE 94–111; RESP 16–20; TEMP 36.2–37.4; O2SAT 95–100
[2018-08-08] MEDS: 0.9% NaCl Peripheral Flush Adult/Peds IV (15:30)
[2018-08-08] MEDS: Furosemide 40 MG/4 ML Vial IV (15:30)
== END 2018-08-08 19:50 | disposition home or self-care (01) ==
LOC: MS3OUT 09:03 → MS3 09:04
PROVIDERS: Family Provider Family Medicine Geriatric Medicine; PCP Family Medicine Geriatric Medicine; Referring Provider Family Medicine Geriatric Medicine; Visit Provider Family Medicine Geriatric Medicine
DX: D64.9 Anemia, unspecified (principal)
CPT/HCPCS: 36415; 36430; 85014; 85018; 86850; 86900; 86920; P9016; A4216; J1940

== ENCOUNTER → 2018-08-10 10:00 | Outpatient (CLI) | payer MEDICARE, MEDICAID, SELFPAY ==
[2018-06-24 12:00] VITALS: BMI 26.4
[2018-08-10 12:36] LABS: Hematocrit 34.6 % (37-47); Hemoglobin 10.4 g/dl (12.0-15.0)
== END ==
PROVIDERS: Family Provider Family Medicine Geriatric Medicine; PCP Family Medicine Geriatric Medicine; Visit Provider Family Medicine Geriatric Medicine
DX: D64.9 Anemia, unspecified (principal)
CPT/HCPCS: 36415; 85014; 85018

== ENCOUNTER → 2018-08-19 15:11 | Outpatient (CLI) | payer MEDICARE, MEDICAID, SELFPAY ==
[2018-06-24 12:00] VITALS: BMI 26.4
[2018-08-19 17:06] LABS: Absolute Lymphocyte Count 3.13 X10^3/ul (0.83-4.51); Absolute Neutrophil Count 3.8 X10^3/uL (2.0-7.7); Basophil# 0.06 X10^3/uL; Basophil% 0.7 % (0-1); Eosinophil# 0.48 X10^3/uL; Hematocrit 37.1 % (37-47); Lymphocyte # 3.13 X10^3/ul (4.0); Lymphocyte % 38.8 % (19-41); Mean Corp Hgb Conc 29.6 g/gl (32-36); Mean Corpuscular Hgb 22.4 pg (27.0-32.0); Mean Corpuscular Volume 75.4 fL (81-99); Mean Platelet Vol. 11.3 fl (6.2-12.0); Monocyte# 0.59 X10^3/uL; Monocyte% 7.3 % (0-10); Neutrophil # 3.78 X10^3/uL (2.7-7.7); Platelet Count 443 K/mm3 (150-450); RBC Distribution Width CV 21.5 % (11.6-14.6); RBC Distribution Width SD 56.8 fl (35.1-43.9); Red Blood Count 4.92 M/mm3 (4.2-5.4); White Blood Count 8.1 K/mm3 (4.4-11.0)
[2018-08-19 17:07] LABS: Differential Indicated SCAN CRITERIA MET; POSITIVE COUNT NO; POSITIVE DIFFERENTIAL NO; POSITIVE MORPHOLOGY YES
[2018-08-19 17:33] LABS: Anisocytosis 2+; Differential Comment SCANNED; Ovalocyte 1+
== END ==
PROVIDERS: Family Provider Family Medicine Geriatric Medicine; PCP Family Medicine Geriatric Medicine; Visit Provider Family Medicine Geriatric Medicine
DX: D64.9 Anemia, unspecified (principal)
CPT/HCPCS: 36415; 85025

== ENCOUNTER → 2018-09-01 17:01 | Outpatient (CLI) | payer MEDICARE, MEDICAID, SELFPAY ==
[2018-06-24 12:00] VITALS: BMI 26.4
[2018-09-01 17:25] LABS: Absolute Lymphocyte Count 2.75 X10^3/ul (0.83-4.51); Basophil# 0.08 X10^3/uL; Basophil% 0.9 % (0-1); Eosinophil# 0.34 X10^3/uL; Eosinophils% 3.7 % (0-5); Hematocrit 35.6 % (37-47); Hemoglobin 10.8 g/dl (12.0-15.0); Lymphocyte # 2.75 X10^3/ul (4.0); Lymphocyte % 30.3 % (19-41); Mean Corp Hgb Conc 30.3 g/gl (32-36); Mean Corpuscular Volume 75.9 fL (81-99); Mean Platelet Vol. 10.2 fl (6.2-12.0); Monocyte# 0.89 X10^3/uL; Monocyte% 9.8 % (0-10); Neutrophil % 55.2 % (47-70); Platelet Count 472 K/mm3 (150-450); RBC Distribution Width CV 22.2 % (11.6-14.6); RBC Distribution Width SD 61.5 fl (35.1-43.9); Red Blood Count 4.69 M/mm3 (4.2-5.4); White Blood Count 9.1 K/mm3 (4.4-11.0)
[2018-09-01 17:32] LABS: Differential Indicated SCAN CRITERIA MET; POSITIVE COUNT NO; POSITIVE DIFFERENTIAL NO; POSITIVE MORPHOLOGY YES
[2018-09-01 18:03] LABS: Platelet Estimate SLT INC (ADEQ)
[2018-09-01 18:04] LABS: Anisocytosis 3+; Differential Comment SCANNED; Microcytosis 1+; Ovalocyte RARE
[2018-09-01 18:05] LABS: Target Cells RARE
[2018-09-01 18:06] LABS: Hypochromasia 1+
[2018-09-01 18:07] LABS: Poikilocytosis RARE
== END ==
PROVIDERS: Family Provider Family Medicine Geriatric Medicine; PCP Family Medicine Geriatric Medicine; Visit Provider Family Medicine Geriatric Medicine
DX: D64.9 Anemia, unspecified (principal)
CPT/HCPCS: 36415; 85025

== ENCOUNTER → 2018-09-14 11:19 | Outpatient (CLI) | payer MEDICARE, MEDICAID, SELFPAY ==
[2018-06-24 12:00] VITALS: BMI 26.4
[2018-09-14 12:26] LABS: Absolute Lymphocyte Count 2.71 X10^3/ul (0.83-4.51); Basophil# 0.08 X10^3/uL; Basophil% 0.9 % (0-1); Eosinophil# 0.56 X10^3/uL; Eosinophils% 6.2 % (0-5); Hematocrit 30.9 % (37-47); Hemoglobin 9.4 g/dl (12.0-15.0); Lymphocyte # 2.71 X10^3/ul (4.0); Lymphocyte % 29.9 % (19-41); Mean Corp Hgb Conc 30.4 g/gl (32-36); Mean Corpuscular Hgb 23.6 pg (27.0-32.0); Mean Corpuscular Volume 77.4 fL (81-99); Mean Platelet Vol. 10.7 fl (6.2-12.0); Monocyte# 0.67 X10^3/uL; Monocyte% 7.4 % (0-10); Neutrophil # 5.03 X10^3/uL (2.7-7.7); Neutrophil % 55.5 % (47-70); Platelet Count 400 K/mm3 (150-450); RBC Distribution Width CV 24.1 % (11.6-14.6); RBC Distribution Width SD 66.7 fl (35.1-43.9); Red Blood Count 3.99 M/mm3 (4.2-5.4); White Blood Count 9.1 K/mm3 (4.4-11.0)
[2018-09-14 12:34] LABS: Differential Indicated SCAN CRITERIA MET; POSITIVE COUNT NO; POSITIVE DIFFERENTIAL NO; POSITIVE MORPHOLOGY YES
[2018-09-14 13:13] LABS: Anisocytosis 1+; Hypochromasia 1+
== END ==
PROVIDERS: Family Provider Family Medicine Geriatric Medicine; PCP Family Medicine Geriatric Medicine; Visit Provider Family Medicine Geriatric Medicine
DX: D64.9 Anemia, unspecified (principal)
CPT/HCPCS: 36415; 85025

== ENCOUNTER → 2018-09-21 12:22 | Outpatient (CLI) | payer MEDICARE, MEDICAID, SELFPAY ==
[2018-06-24 12:00] VITALS: BMI 26.4
[2018-09-21 13:02] LABS: Anion Gap 4 (5-15); BUN 6 mg/dL (7-18); Calcium,Total 8.6 mg/dL (8.5-10.1); Chloride 104 mmol/L (98-107); EST Glomerular Filtration Rate 110 mL/min (>60); Est Glom Filt Rate - Afr Amer 133 mL/min (>60); Glucose 94 mg/dL (74-106); Potassium 3.6 mmol/L (3.5-5.1); Sodium Level 140 mmol/L (136-145)
[2018-09-21 13:28] LABS: Absolute Lymphocyte Count 3.37 X10^3/ul (0.83-4.51); Absolute Neutrophil Count 3.7 X10^3/uL (2.0-7.7); Basophil# 0.08 X10^3/uL; Basophil% 0.9 % (0-1); Eosinophil# 0.49 X10^3/uL; Eosinophils% 5.8 % (0-5); Hematocrit 31.4 % (37-47); Hemoglobin 9.3 g/dl (12.0-15.0); Lymphocyte # 3.37 X10^3/ul (4.0); Lymphocyte % 39.7 % (19-41); Mean Corp Hgb Conc 29.6 g/gl (32-36); Mean Corpuscular Hgb 23.1 pg (27.0-32.0); Mean Corpuscular Volume 77.9 fL (81-99); Mean Platelet Vol. 10.4 fl (6.2-12.0); Monocyte# 0.79 X10^3/uL; Monocyte% 9.3 % (0-10); Neutrophil # 3.73 X10^3/uL (2.7-7.7); Neutrophil % 44.1 % (47-70); POSITIVE COUNT NO; POSITIVE DIFFERENTIAL NO; POSITIVE MORPHOLOGY YES; Platelet Count 560 K/mm3 (150-450); RBC Distribution Width CV 24.4 % (11.6-14.6); RBC Distribution Width SD 67.1 fl (35.1-43.9); Red Blood Count 4.03 M/mm3 (4.2-5.4); White Blood Count 8.5 K/mm3 (4.4-11.0)
[2018-09-21 13:29] LABS: Differential Indicated SCAN CRITERIA MET
== END ==
PROVIDERS: Family Provider Family Medicine Geriatric Medicine; PCP Family Medicine Geriatric Medicine; Visit Provider Family Medicine Geriatric Medicine
DX: D64.9 Anemia, unspecified (principal); R10.9 Unspecified abdominal pain
CPT/HCPCS: 36415; 80048; 85025

== ENCOUNTER → 2018-09-21 12:32 | Outpatient (CLI) | payer MEDICARE, MEDICAID, SELFPAY ==
[2018-06-24 12:00] VITALS: BMI 26.4
--- NOTE | 2018-09-21 12:37 | CT_ITS ---
STUDY: CTA CHEST REASON FOR EXAM: Female, 58 years old. Shortness of breath. Prior pulmonary embolism. RADIATION DOSAGE (If Supplied By Facility): CTDIvol = ( 10.62 ) mGy, DLP = ( 295.18 ) mGycm TECHNIQUE: The examination was performed with the intravenous administration of 100CC IV Isovue 370. Post-processing of the angiographic images was performed, with multiplanar reformation and 3D reconstruction. Individualized dose optimization techniques were used for this CT. COMPARISON: Comparison is made with prior study dated July 15, 2018. FINDINGS: A right-sided pacemaker is seen. Normal enhancement of the main pulmonary artery and right and left pulmonary arteries. Normal enhancement of the bilateral peripheral pulmonary arteries. There is no demonstrated pulmonary embolism. Normal thoracic aorta and visualized great vessels. There is no demonstrated aortic dissection. Normal heart and pericardium. Normal mediastinum. Normal hilar regions. Normal visualized trachea and bronchi. The lungs are well expanded. Stable 1.2 cm x 1.1 cm nodule in the peripheral lateral aspect of the right lower lobe as seen on axial image #45. Stable increased markings at the lung bases suggestive of scarring and/or atelectasis. 7.1 mm nodules also seen in the posterior right lower lobe on axial image #90. Normal pleura. Normal chest wall structures. Normal osseous structures. There is a moderate-sized hiatal hernia. CT/CTA Chest W/WO Contrast IMPRESSION: No evidence of pulmonary emphysema at this time. Stable right lower lobe nodules. Moderate-sized hiatal hernia. Electronically Signed: Colten Justice, at 14:52 EDT , Service support ,
== END ==
PROVIDERS: Family Provider Family Medicine Geriatric Medicine; PCP Family Medicine Geriatric Medicine; Referring Provider Family Medicine Geriatric Medicine; Visit Provider Family Medicine Geriatric Medicine
DX: I26.99 Other pulmonary embolism without acute cor pulmonale (principal); R06.02 Shortness of breath; D64.9 Anemia, unspecified; R10.9 Unspecified abdominal pain
CPT/HCPCS: 36415; 71275; 80048; 85025; Q9967

== ENCOUNTER → 2018-11-11 09:42 | Outpatient (CLI) | payer MEDICARE, MEDICAID, SELFPAY ==
[2018-06-24 12:00] VITALS: BMI 26.4
[2018-11-11 12:37] LABS: Absolute Lymphocyte Count 2.86 X10^3/uL (0.83-4.51); Absolute Neutrophil Count 3.8 X10^3/uL (2.0-7.7); Basophil# 0.09 X10^3/uL; Basophil% 1.1 % (0-1); Eosinophil# 0.41 X10^3/uL; Eosinophils% 5.2 % (0-5); Hematocrit 28.2 % (37-47); Hemoglobin 8.1 g/dL (12.0-15.0); Lymphocyte # 2.86 X10^3/ul (4.0); Lymphocyte % 36.5 % (19-41); Mean Corp Hgb Conc 28.7 g/dL (32-36); Mean Corpuscular Hgb 22.1 pg (27.0-32.0); Mean Platelet Vol. 10.4 fl (6.2-12.0); Monocyte# 0.66 X10^3/uL; Monocyte% 8.4 % (0-10); NRBC Flagged by Analyzer 0 % (0-5); Neutrophil # 3.81 X10^3/uL (2.7-7.7); Neutrophil % 48.7 % (47-70); Platelet Count 400 K/mm3 (150-450); RBC Distribution Width CV 18.8 % (11.6-14.6); RBC Distribution Width SD 52.2 fl (35.1-43.9); Red Blood Count 3.66 M/mm3 (4.2-5.4); White Blood Count 7.8 K/mm3 (4.4-11.0)
[2018-11-11 13:07] LABS: ALB/GLOB Ratio 0.7 RATIO (0.9-2.4); AST(SGOT) 15 U/L (15-37); Alanine Aminotransfer ALT/SGPT 15 U/L (13-56); Albumin, Serum 3.2 g/dL (3.2-5.0); Alkaline Phosphatase 113 U/L (45-117); Anion Gap 8 (5-15); BUN 8 mg/dL (7-18); BUN/Creat Ratio 15.3 RATIO (10-20); Calcium,Total 8.5 mg/dL (8.5-10.1); Chloride 107 mmol/L (98-107); Creatinine, Serum 0.52 mg/dL (0.55-1.02); EST Glomerular Filtration Rate 128 mL/min (>60); Est Glom Filt Rate - Afr Amer 155 mL/min (>60); Globulin 4.3 g/dL (2.2-4.2); Glucose 81 mg/dL (74-106); Potassium 4.1 mmol/L (3.5-5.1); Protein, Total 7.5 g/dL (6.4-8.2); Sodium Level 142 mmol/L (136-145); Thyroid Stim Hormone (TSH) 2.51 uIU/mL (0.358-3.74)
== END ==
PROVIDERS: Family Provider Family Medicine Geriatric Medicine; PCP Family Medicine Geriatric Medicine; Visit Provider Family Medicine Geriatric Medicine
DX: E55.9 Vitamin D deficiency, unspecified (principal); R53.83 Other fatigue
CPT/HCPCS: 36415; 80053; 82306; 84443; 85025

== ENCOUNTER 2019-01-11 07:29 | Day surgery (SDC) | payer MEDICARE, MEDICAID, SELFPAY ==
[2018-12-09 10:37] VITALS: BMI 26.4
[2019-01-11 08:00] VITALS: BP 130/58; PULSE 86; RESP 16; TEMP 36.7; O2SAT 95
[2019-01-11] MEDS: Lactated Ringers 1,000 ML 100 ML IV (08:45)
--- NOTE | 2019-01-11 08:50 | RAD_ITS ---
STUDY: INTRAOPERATIVE HIP INJECTION RIGHT REASON FOR EXAM: Female, 58 years old. Right hip pain. FLUOROSCOPY TIME (if supplied): ( 7.2 seconds ) minutes/seconds TECHNIQUE: Intraoperative fluoroscopic services provided for right hip injection. COMPARISON: None. FINDINGS: Contrast is seen within the right hip. RAD/Fluoro Guided Needle Placement IMPRESSION: Intraoperative imaging provided for right hip injection. Electronically Signed: Colten Justice, at 9:49 EST , Service support ,
[2019-01-11] MEDS: MethylPREDNISolone Acetate 80 MG/ML Vial (09:16)
[2019-01-11] MEDS: Bupivacaine 0.25% 30 ML Vial (09:16)
[2019-01-11 09:25] VITALS: BP 130/58; BP 97/68; PULSE 79; RESP 18; TEMP 36.9; O2SAT 91
[2019-01-11 09:30] VITALS: BP 103/69; BP 130/58; PULSE 82; RESP 18; O2SAT 96
[2019-01-11 09:36] VITALS: BP 124/107; BP 130/58; PULSE 80; RESP 18; O2SAT 98
[2019-01-11 09:40] VITALS: BP 130/58; BP 89/75; RESP 18; TEMP 36.4; O2SAT 98
--- NOTE | 2019-01-11 10:13 | PCM.OPRPT ---
Report of Operation Date of Procedure: 01/11/19 Description of Surgical Findings:: PREOPERATIVE DIAGNOSIS: Osteoarthritis of the right hip POSTOPERATIVE DIAGNOSIS: Osteoarthritis of the right hip PROCEDURE PERFORMED: Right hip intraarticular steroid injection under fluoroscopy guidance. ANESTHESIA: MAC. BLOOD LOSS: Minimal. COMPLICATIONS: None. DESCRIPTION OF PROCEDURE: History and physical of today was reviewed. Risks and benefits of the procedure were explained. The patient understood and agreed to proceed. Informed consent was obtained. IV inserted per routine protocol. The patient was taken to the operating room and placed in the supine position. The right hip area was prepped and draped in a sterile fashion using iodine x3. Under fluoroscopy guidance on AP view, the right hip joint was visualized. The skin and subcutaneous tissue was anesthetized with approximately 3 mL of 1% lidocaine using a 25-gauge regular needle approximately 3 cm cephalad to the right greater trochanter. Under direct visualization with fluoroscopy on an AP view, using a 22-gauge 5-inch spinal needle, the needle was advanced via the skin using the lateral approach. The tip of the needle was maneuvered and directed towards the superiormost aspect of the hip joint. Once the tip of the needle was at the vicinity of the joint, after negative aspiration for blood and positive aspiration of synovial fluid, a total of 1 mL of contrast was injected to confirm correct placement of the needle as well as halo spread around the hip joint. After repeated negative aspiration for blood and confirmation on AP as well as oblique view, a total of 10 mL of preservative-free 0.25% Marcaine with 80 mg of Depo-Medrol was injected easily. The needle was then removed intact. The patient experienced no sign or symptoms of intrathecal or intravascular injection. The patient experienced no paresthesia. The procedure was completed without any apparent difficulty or any complications. The patient appeared to tolerate it well. ASSESSMENT AND PLAN: This is a 58-year-old female with osteoarthritis of the right hip status post right hip intra-articular steroid injection under fluoroscopic guidance patient will continue her current medications patient phone approximately 2 weeks for reevaluation.
[2019-01-11 10:20] VITALS: BP 130/58
== END 2019-01-11 10:20 | disposition home or self-care (01) ==
LOC: SDC 07:31 → AC 07:33
PROVIDERS: Family Provider Family Medicine Geriatric Medicine; PCP Family Medicine Geriatric Medicine; Referring Provider Anesthesiology Pain Medicine; Visit Provider Anesthesiology Pain Medicine
PROC: 3E0U3GC Introduction of Other Therapeutic Substance into Joints, Percutaneous Approach (ICD-10-PCS; CPT 20610; principal; 2019-01-11 08:45)
DX: M16.11 Unilateral primary osteoarthritis, right hip (principal); M17.9 Osteoarthritis of knee, unspecified; J40 Bronchitis, not specified as acute or chronic; G80.8 Other cerebral palsy; E78.5 Hyperlipidemia, unspecified; E03.9 Hypothyroidism, unspecified; E55.9 Vitamin D deficiency, unspecified; M79.18 Myalgia, other site; K21.9 Gastro-esophageal reflux disease without esophagitis; F79 Unspecified intellectual disabilities; F32.9 Major depressive disorder, single episode, unspecified; Z78.0 Asymptomatic menopausal state; Z79.01 Long term (current) use of anticoagulants; Z79.899 Other long term (current) drug therapy
CPT/HCPCS: 20610; 76000; 77002; 87633; J7120

== ENCOUNTER → 2019-01-11 11:49 | Outpatient (CLI) | payer MEDICARE, MEDICAID, SELFPAY ==
[2018-12-09 10:37] VITALS: BMI 26.4
== END ==
PROVIDERS: Family Provider Family Medicine Geriatric Medicine; PCP Family Medicine Geriatric Medicine; Referring Provider Family Medicine Geriatric Medicine; Visit Provider Family Medicine Geriatric Medicine
DX: J40 Bronchitis, not specified as acute or chronic (principal)
CPT/HCPCS: 87633

== ENCOUNTER → 2019-01-28 14:09 | Outpatient (CLI) | payer MEDICARE, MEDICAID, SELFPAY ==
[2018-12-09 10:37] VITALS: BMI 26.4
--- NOTE | 2019-01-28 14:25 | RAD_ITS ---
STUDY: X-RAY CHEST REASON FOR EXAM: Female, 58 years old. TECHNIQUE: PA and lateral views of the chest. COMPARISON: 05/01/18. FINDINGS: The lungs are underexpanded with vascular crowding and bilateral basilar atelectasis. There is no demonstrated pleural abnormality. There is actually device projecting over the right lung base. Normal size heart. Normal mediastinum and shanell. Normal visualized pulmonary arteries. There is atherosclerotic calcification of the aortic arch with tortuosity. There is demineralization of the osseous structures. There is degenerative osteoarthritis of the bilateral shoulders and spine. There is no demonstrated abnormality of the visualized soft tissue structures of the upper abdomen. RAD/Chest PA and Lateral IMPRESSION: Mild atelectasis as described above, otherwise no acute process identified. Electronically Signed: Bruna Barragan MD at 2:07 EST , Service support ,
== END ==
PROVIDERS: Family Provider Family Medicine Geriatric Medicine; PCP Family Medicine Geriatric Medicine; Referring Provider Family Medicine Geriatric Medicine; Visit Provider Family Medicine Geriatric Medicine
DX: R05 Cough (principal); R68.83 Chills (without fever)
CPT/HCPCS: 71046; 87633

== ENCOUNTER → 2019-05-12 12:05 | Outpatient (CLI) | payer MEDICARE, MEDICAID, SELFPAY ==
[2018-12-09 10:37] VITALS: BMI 26.4
[2019-05-12 12:44] LABS: Absolute Lymphocyte Count 2.66 X10^3/uL (0.83-4.51); Absolute Neutrophil Count 3.1 X10^3/uL (2.0-7.7); Basophil# 0.08 X10^3/uL; Basophil% 1.2 % (0-1); Eosinophil# 0.35 X10^3/uL; Eosinophils% 5.2 % (0-5); Hematocrit 45.8 % (37-47); Hemoglobin 14.8 g/dL (12.0-15.0); Lymphocyte # 2.66 X10^3/ul (4.0); Lymphocyte % 39.8 % (19-41); Mean Corp Hgb Conc 32.3 g/dL (32-36); Mean Corpuscular Hgb 31.8 pg (27.0-32.0); Mean Corpuscular Volume 98.3 fL (81-99); Mean Platelet Vol. 11.9 fl (6.2-12.0); Monocyte# 0.52 X10^3/uL; Monocyte% 7.8 % (0-10); NRBC Flagged by Analyzer 0 % (0-5); Neutrophil # 3.07 X10^3/uL (2.7-7.7); Neutrophil % 45.9 % (47-70); Platelet Count 266 K/mm3 (150-450); RBC Distribution Width SD 50.9 fl (35.1-43.9); Red Blood Count 4.66 M/mm3 (4.2-5.4); White Blood Count 6.7 K/mm3 (4.4-11.0)
[2019-05-12 13:17] LABS: AST(SGOT) 14 U/L (15-37); Alanine Aminotransfer ALT/SGPT 21 U/L (13-56); Albumin, Serum 3.7 g/dL (3.2-5.0); Alkaline Phosphatase 108 U/L (45-117); Anion Gap 6 (5-15); BUN 7 mg/dL (7-18); BUN/Creat Ratio 12.3 RATIO (10-20); Calcium,Total 9.3 mg/dL (8.5-10.1); Chloride 106 mmol/L (98-107); Creatinine, Serum 0.57 mg/dL (0.55-1.02); EST Glomerular Filtration Rate 116 mL/min (>60); Est Glom Filt Rate - Afr Amer 141 mL/min (>60); Globulin 3.8 g/dL (2.2-4.2); Glucose 72 mg/dL (74-106); Potassium 4.7 mmol/L (3.5-5.1); Protein, Total 7.5 g/dL (6.4-8.2); Sodium Level 143 mmol/L (136-145); Thyroid Stim Hormone (TSH) 2.81 uIU/mL (0.358-3.74)
[2019-05-12 13:20] LABS: Vitamin D,25 Hydroxy 25.9 ng/mL
== END ==
PROVIDERS: PCP Family Medicine Geriatric Medicine; Visit Provider Family Medicine Geriatric Medicine
DX: E55.9 Vitamin D deficiency, unspecified (principal); R53.83 Other fatigue
CPT/HCPCS: 36415; 80053; 82306; 84443; 85025

== ENCOUNTER → 2019-05-18 | Outpatient (CLI) | payer MEDICARE, MEDICAID, SELFPAY ==
[2018-12-09 10:37] VITALS: BMI 26.4
== END | disposition home or self-care (01) ==
LOC: LABSPEC 16:20
PROVIDERS: PCP Family Medicine Geriatric Medicine; Visit Provider Family Medicine Geriatric Medicine
DX: N39.0 Urinary tract infection, site not specified (principal)
CPT/HCPCS: 87086; 87088; 87186

== ENCOUNTER → 2019-09-14 | Outpatient (CLI) | payer MEDICARE, MEDICAID, SELFPAY ==
[2019-08-25 13:29] VITALS: BMI 27.3
--- NOTE | 2019-09-14 09:48 | LES_PTH ---
PATIENT: SUNNI GUIDRY LOC: [facility]ICIO U#:[id number] AGE/SX: 59/F ROOM: RE09/14/[address]: Dr. Rocky Barlow MD : 1960 BED: DIS: 09/14/2019 SPEC #: [id number] RECD: 09/14/19 12:24 STATUS: LOIDA KENYATTA #: [id number] DANIEL: 09/14/19 09:[address]: Rocky Barlow Chi DEPT: SURGICAL PATHOLOGY RECD BY: Onel Gamino Tissues: Skin of face, NOS Procedures: Surgery Specimen Level IV HEADER OPERATION: Right cheek biopsy PRE-OP DIAGNOSIS: Right cheek lesion TISSUE SUBMITTED: Right cheek MICROSCOPIC DIAGNOSIS Right cheek lesion, biopsy: Seborrheic keratosis. ROSA MARIA:andres 09/16/19 MICROSCOPIC DESCRIPTION Slides are reviewed. GROSS DESCRIPTION Received in fixative is one container labeled with the patient's name and designated right cheek. The specimen consists of a piece of south-white skin measuring 1 x 1 cm and up to 0.3 cm in thickness. The skin surface is verrucous. The specimen is inked, serially sectioned and submitted entirely in one cassette. / SJ:andres 09/15/19 TC:1 CPT: 59472
== END | disposition home or self-care (01) ==
LOC: POLAB3 11:49 → LABSPEC 11:50
PROVIDERS: PCP Family Medicine Geriatric Medicine; Visit Provider Family Medicine Geriatric Medicine
DX: L81.9 Disorder of pigmentation, unspecified (principal)
CPT/HCPCS: 88305

== ENCOUNTER → 2019-09-28 12:39 | Outpatient (CLI) | payer MEDICARE, MEDICAID, SELFPAY ==
[2019-08-25 13:29] VITALS: BMI 27.3
== END ==
PROVIDERS: PCP Family Medicine Geriatric Medicine; Referring Provider Family Medicine Geriatric Medicine; Visit Provider Family Medicine Geriatric Medicine
DX: E86.0 Dehydration (principal); D64.9 Anemia, unspecified

== ENCOUNTER → 2019-09-29 11:30 | Outpatient (CLI) | payer MEDICARE, MEDICAID, SELFPAY ==
[2019-08-25 13:29] VITALS: BMI 27.3
--- NOTE | 2019-09-29 11:41 | RAD_ITS ---
STUDY: X-RAY - ABDOMEN/PELVIS REASON FOR EXAM: Female, 59 years old. Fecal impaction TECHNIQUE: AP supine and decubitus views of the abdomen and pelvis. COMPARISON: 11/06/2017 FINDINGS: Normal visualized lung bases. There is an abundance of fecal material throughout the colon. There is no demonstrated free abdominal air. The visualized liver, spleen and kidneys are grossly normal in size and morphology. Normal soft tissue structures. There are diffuse degenerative changes of the visualized lumbar spine. RAD/[employer]d Inc Decub and/or Erect IMPRESSION: No acute findings, retained stool noted throughout the colon Electronically Signed: Gonzalez Perez MD at 12:07 EDT , Service support ,
[2019-09-29 13:30] LABS: Absolute Lymphocyte Count 2.22 X10^3/uL (0.83-4.51); Absolute Neutrophil Count 4.3 X10^3/uL (2.0-7.7); Basophil# 0.06 X10^3/uL; Basophil% 0.8 % (0-1); Eosinophil# 0.21 X10^3/uL; Eosinophils% 2.8 % (0-5); Hematocrit 45.2 % (37-47); Hemoglobin 14.8 g/dL (12.0-15.0); Lymphocyte # 2.22 X10^3/ul (4.0); Mean Corp Hgb Conc 32.7 g/dL (32-36); Mean Corpuscular Hgb 31.6 pg (27.0-32.0); Mean Corpuscular Volume 96.4 fL (81-99); Mean Platelet Vol. 11.5 fl (6.2-12.0); Monocyte# 0.55 X10^3/uL; Monocyte% 7.4 % (0-10); NRBC Flagged by Analyzer 0 % (0-5); Neutrophil # 4.32 X10^3/uL (2.7-7.7); Neutrophil % 58.6 % (47-70); Platelet Count 297 K/mm3 (150-450); RBC Distribution Width CV 13.7 % (11.6-14.6); RBC Distribution Width SD 48.7 fl (35.1-43.9); Red Blood Count 4.69 M/mm3 (4.2-5.4); White Blood Count 7.4 K/mm3 (4.4-11.0)
[2019-09-29 14:03] LABS: Anion Gap 5 (5-15); BUN 3 mg/dL (7-18); Chloride 104 mmol/L (98-107); EST Glomerular Filtration Rate 135 mL/min (>60); Est Glom Filt Rate - Afr Amer 163 mL/min (>60); Glucose 88 mg/dL (74-106); Sodium Level 140 mmol/L (136-145)
== END ==
PROVIDERS: PCP Family Medicine Geriatric Medicine; Referring Provider Family Medicine Geriatric Medicine; Visit Provider Family Medicine Geriatric Medicine
DX: E86.0 Dehydration (principal); D64.9 Anemia, unspecified; K56.41 Fecal impaction
CPT/HCPCS: 36415; 74019; 80048; 85025

== ENCOUNTER 2019-10-11 08:31 | Day surgery (SDC) | payer MEDICARE, MEDICAID, SELFPAY ==
[2019-08-25 13:29] VITALS: BMI 27.3
[2019-10-11 09:09] VITALS: BP 96/44; PULSE 68; RESP 16; TEMP 36.7; O2SAT 95; BMI 27.3
[2019-10-11] MEDS: Lactated Ringers 1,000 ML 100 ML IV (09:29)
--- NOTE | 2019-10-11 09:58 | RAD_ITS ---
STUDY: HIP INJECTION RIGHT REASON FOR EXAM: Female, 59 years old. RIGHT HIP STEROID INJECTION FLUOROSCOPY TIME (if supplied): ( 9.9 seconds ) minutes/seconds. Single image was obtained. TECHNIQUE: Intraoperative imaging provided for right hip injection. Contrast is seen within the hip joints. COMPARISON: None. FINDINGS: Intraoperative imaging provided for right hip injection. RAD/Fluoro Guided Needle Placement IMPRESSION: Intraoperative imaging provided for right hip injection. Electronically Signed: Colten Justice, at 11:03 EDT , Service support ,
[2019-10-11] MEDS: Bupivacaine 0.25% 30 ML Vial (10:05)
[2019-10-11] MEDS: MethylPREDNISolone Acetate 80 MG/ML Vial (10:05)
[2019-10-11 10:15] VITALS: BP 95/64; BP 96/44; PULSE 67; RESP 16; TEMP 36.2; O2SAT 94
[2019-10-11 10:20] VITALS: BP 96/44; BP 96/57; PULSE 64; RESP 16; O2SAT 99
[2019-10-11 10:25] VITALS: BP 96/44; BP 98/77; PULSE 73; RESP 16; O2SAT 100
[2019-10-11 10:30] VITALS: BP 117/64; BP 96/44; PULSE 72; RESP 16; TEMP 36.1; O2SAT 98
[2019-10-11 11:00] VITALS: BP 96/44
--- NOTE | 2019-10-12 10:29 | PCM.OPRPT ---
Report of Operation Date of Procedure: 10/11/19 Description of Surgical Findings:: PREOPERATIVE DIAGNOSIS: OSTEOARTHRITIS OF THE RIGHT HIP POSTOPERATIVE DIAGNOSIS: OSTEOARTHRITIS OF THE RIGHT HIP PROCEDURE PERFORMED: RIGHT hip intraarticular steroid injection under fluoroscopy guidance. ANESTHESIA: MAC. BLOOD LOSS: Minimal. COMPLICATIONS: None. DESCRIPTION OF PROCEDURE: History and physical of today was reviewed. Risks and benefits of the procedure were explained. The patient understood and agreed to proceed. Informed consent was obtained. IV inserted per routine protocol. The patient was taken to the operating room and placed in the supine position. The right hip area was prepped and draped in a sterile fashion using iodine x3. Under fluoroscopy guidance on AP view, the right hip joint was visualized. The skin and subcutaneous tissue was anesthetized with approximately 3 mL of 1% lidocaine using a 25-gauge regular needle approximately 3 cm cephalad to the right greater trochanter. Under direct visualization with fluoroscopy on an AP view, using a 22-gauge 5-inch spinal needle, the needle was advanced via the skin using the lateral approach. The tip of the needle was maneuvered and directed towards the superiormost aspect of the hip joint. Once the tip of the needle was at the vicinity of the joint, after negative aspiration for blood and positive aspiration of synovial fluid, a total of 1 mL of contrast was injected to confirm correct placement of the needle as well as halo spread around the hip joint. After repeated negative aspiration for blood and confirmation on AP as well as oblique view, a total of 10 mL of preservative-free 0.25% Marcaine with 80 mg of Depo-Medrol was injected easily. The needle was then removed intact. The patient experienced no sign or symptoms of intrathecal or intravascular injection. The patient experienced no paresthesia. The procedure was completed without any apparent difficulty or any complications. The patient appeared to tolerate it well. ASSESSMENT AND PLAN: This is a 59 Y/O female with osteoarthritis of the right hip status post right hip intraarticular steroid injection under fluoroscopy guidance. The pt will continue with her current medications, she will follow up in 2 weeks for reevaluation.
== END 2019-10-11 11:00 | disposition home or self-care (01) ==
LOC: SDC 08:31 → AC 08:32
PROVIDERS: PCP Family Medicine Geriatric Medicine; Referring Provider Anesthesiology Pain Medicine; Visit Provider Anesthesiology Pain Medicine
PROC: 3E0U3GC Introduction of Other Therapeutic Substance into Joints, Percutaneous Approach (ICD-10-PCS; CPT 20610; principal; 2019-10-11 09:55)
DX: M16.11 Unilateral primary osteoarthritis, right hip (principal); M51.37 Other intervertebral disc degeneration, lumbosacral region; M47.817 Spondylosis without myelopathy or radiculopathy, lumbosacral region; M17.9 Osteoarthritis of knee, unspecified; G80.8 Other cerebral palsy; M79.7 Fibromyalgia; E78.5 Hyperlipidemia, unspecified; E03.9 Hypothyroidism, unspecified; E55.9 Vitamin D deficiency, unspecified; F32.9 Major depressive disorder, single episode, unspecified; K21.9 Gastro-esophageal reflux disease without esophagitis; Z79.899 Other long term (current) drug therapy; Z78.0 Asymptomatic menopausal state; Z79.01 Long term (current) use of anticoagulants
CPT/HCPCS: 20610; 76000; 77002; J7120

== ENCOUNTER → 2019-10-21 14:49 | Outpatient (CLI) | payer MEDICARE, MEDICAID, SELFPAY ==
[2019-10-11 09:09] VITALS: BMI 27.3
--- NOTE | 2019-10-21 14:52 | RAD_ITS ---
STUDY: X-RAY - ABDOMEN/PELVIS REASON FOR EXAM: Female, 59 years old. DIARRHEA -- PT UNABLE TO GIVE HISTORY TECHNIQUE: AP supine and upright views of the abdomen and pelvis. COMPARISON: None. FINDINGS: Normal visualized lung bases. Marked distention of transverse colon and the splenic flexure. Moderate fecal retention and likely fecal impaction in the rectosigmoid. There is no demonstrated free abdominal air. The visualized liver, spleen and kidneys are grossly normal in size and morphology. Normal soft tissue structures. Normal visualized osseous structures. RAD/Abd Inc Decub and/or Erect IMPRESSION: Probable colonic ileus related to fecal retention and likely fecal impaction in the rectosigmoid. Electronically Signed: Roberto Wagoner MD at 22:47 EDT , Service support ,
== END ==
PROVIDERS: PCP Family Medicine Geriatric Medicine; Referring Provider Family Medicine Geriatric Medicine; Visit Provider Family Medicine Geriatric Medicine
DX: R19.7 Diarrhea, unspecified (principal)
CPT/HCPCS: 74019

== ENCOUNTER → 2019-11-13 | Outpatient (CLI) | payer MEDICARE, MEDICAID, SELFPAY ==
[2019-11-13 10:47] LABS: Mucous, Urine 0 SEEN /hpf (<or=2+)
[2019-11-13 11:28] LABS: Color, Urine Yellow (Yellow); Glucose, Dipstick Normal (Normal); Ketone-Dipstick 5 mg/dl (Negative); Leukocyte Esterase-Dipstick 500 /ul (Negative); Nitrite-Dipstick Negative (Negative); Occult Blood-Urine 150 /ul (Negative); Protein-Dipstick 100 mg/dl (Negative); Specific Gravity, Urine 1.015 (1.002-1.030); Urine Bilirubin Dipstick Negative (Negative); Urine Clarity Cloudy (Clear); Urine Urobilinogen Normal (Normal)
[2019-11-13 11:40] LABS: Bacteria 2+ /hpf (None Seen); Red Blood Cells-Urine 5-10 SEEN /hpf (0-5); Squamous Epithelial Cells - UA 0-5 SEEN /hpf (5-10); White Blood Cells 50-100 SEEN /hpf (0-5)
== END | disposition home or self-care (01) ==
LOC: LABSPEC 10:34
PROVIDERS: PCP Family Medicine Geriatric Medicine; Referring Provider Family Medicine Geriatric Medicine; Visit Provider Family Medicine Geriatric Medicine
DX: N39.0 Urinary tract infection, site not specified (principal)
CPT/HCPCS: 81001; 87077; 87086; 87088; 87186

== ENCOUNTER → 2019-11-16 11:26 | Outpatient (CLI) | payer MEDICARE, MEDICAID, SELFPAY ==
--- NOTE | 2019-11-16 11:40 | RAD_ITS ---
STUDY: X-RAY - ABDOMEN/PELVIS REASON FOR EXAM: Female, 59 years old. Constipation. TECHNIQUE: AP supine and upright views of the abdomen and pelvis. COMPARISON: None. FINDINGS: Normal visualized lung bases. There is a large retrocardiac hiatal hernia. There is air in nondilated small bowel loops in the left upper quadrant. Air is also seen in transverse colon. There is a paucity of air in the lower colon. There is no demonstrated free abdominal air. The visualized liver, spleen and kidneys are grossly normal in size and morphology. Normal soft tissue structures. There are diffuse degenerative changes of the visualized lumbar spine. There is evidence of internal fixation of a remote right hip fracture. RAD/Abd Inc Decub and/or Erect IMPRESSION: 1. Nonspecific bowel gas pattern without obvious obstruction. 2. Hiatal hernia. Electronically Signed: Ascencion Mora DO at 17:19 EDT Tel [phone], Service support ,
[2019-11-16 12:40] LABS: Absolute Lymphocyte Count 2.55 X10^3/uL (0.83-4.51); Absolute Neutrophil Count 5.3 X10^3/uL (2.0-7.7); Basophil# 0.06 X10^3/uL; Basophil% 0.7 % (0-1); Eosinophil# 0.25 X10^3/uL; Eosinophils% 2.8 % (0-5); Hematocrit 48.8 % (37-47); Hemoglobin 15.8 g/dL (12.0-15.0); Lymphocyte # 2.55 X10^3/ul (4.0); Lymphocyte % 28.8 % (19-41); Mean Corp Hgb Conc 32.4 g/dL (32-36); Mean Corpuscular Hgb 31.3 pg (27.0-32.0); Mean Corpuscular Volume 96.6 fL (81-99); Mean Platelet Vol. 12.2 fl (6.2-12.0); Monocyte# 0.66 X10^3/uL; Monocyte% 7.5 % (0-10); NRBC Flagged by Analyzer 0.3 % (0-5); Neutrophil # 5.31 X10^3/uL (2.7-7.7); Platelet Count 301 K/mm3 (150-450); RBC Distribution Width SD 49.3 fl (35.1-43.9); Red Blood Count 5.05 M/mm3 (4.2-5.4); White Blood Count 8.9 K/mm3 (4.4-11.0)
[2019-11-16 13:29] LABS: Vitamin D,25 Hydroxy 39.2 ng/mL
[2019-11-16 13:33] LABS: ALB/GLOB Ratio 0.9 RATIO (0.9-2.4); AST(SGOT) 19 U/L (15-37); Alanine Aminotransfer ALT/SGPT 18 U/L (13-56); Albumin, Serum 3.7 g/dL (3.2-5.0); Alkaline Phosphatase 109 U/L (45-117); Anion Gap 10 (5-15); BUN 6 mg/dL (7-18); BUN/Creat Ratio 9.1 RATIO (10-20); Calcium,Total 9.4 mg/dL (8.5-10.1); Chloride 106 mmol/L (98-107); Creatinine, Serum 0.66 mg/dL (0.55-1.02); EST Glomerular Filtration Rate 98 mL/min (>60); Est Glom Filt Rate - Afr Amer 119 mL/min (>60); Glucose 76 mg/dL (74-106); Potassium 3.9 mmol/L (3.5-5.1); Protein, Total 7.7 g/dL (6.4-8.2); Sodium Level 142 mmol/L (136-145); Thyroid Stim Hormone (TSH) 2.22 uIU/mL (0.358-3.74)
== END ==
LOC: POLAB3 11:28 → RAD 11:34
PROVIDERS: PCP Family Medicine Geriatric Medicine; Referring Provider Family Medicine Geriatric Medicine; Visit Provider Family Medicine Geriatric Medicine
DX: E55.9 Vitamin D deficiency, unspecified (principal); R53.83 Other fatigue; R10.9 Unspecified abdominal pain
CPT/HCPCS: 36415; 74019; 80053; 82306; 84443; 85025

== ENCOUNTER → 2019-12-08 13:03 | Outpatient (CLI) | payer MEDICARE, MEDICAID, SELFPAY ==
--- NOTE | 2019-12-08 13:25 | RAD_ITS ---
STUDY: X-RAY - ABDOMEN/PELVIS REASON FOR EXAM: Female, 59 years old. Diarrhea TECHNIQUE: Single AP view of the abdomen / pelvis. COMPARISON: Comparison is made with prior examination of 11/16/2019. FINDINGS: There is an unremarkable bowel gas pattern. The visualized liver, spleen and kidneys are grossly normal in size and morphology. There are calcified phleboliths in the pelvis. The patient is status post side plate and compression screw fixation of an old right intertrochanteric fracture with further healing. There is cephalic migration of the femoral head with a new pseudoacetabulum. This is unchanged. RAD/Abdomen Single View IMPRESSION: Nonspecific bowel gas pattern. Electronically Signed: Colten Justice, at 14:09 EDT , Service support ,
== END ==
PROVIDERS: PCP Family Medicine Geriatric Medicine; Referring Provider Family Medicine Geriatric Medicine; Visit Provider Family Medicine Geriatric Medicine
DX: R19.7 Diarrhea, unspecified (principal)
CPT/HCPCS: 74018

== ENCOUNTER → 2019-12-16 14:44 | Outpatient (CLI) | payer MEDICARE, MEDICAID, SELFPAY ==
--- NOTE | 2019-12-16 14:50 | RAD_ITS ---
STUDY: X-RAY - ABDOMEN/PELVIS REASON FOR EXAM: Female, 59 years old. diarrhea TECHNIQUE: Single AP view of the abdomen / pelvis. COMPARISON: None. FINDINGS: Normal visualized lung bases. There is an unremarkable bowel gas pattern. There is no demonstrated free abdominal air. The visualized liver, spleen and kidneys are grossly normal in size and morphology. Normal soft tissue structures. Normal visualized osseous structures. RAD/Abd Inc Decub and/or Erect IMPRESSION: Normal x-ray examination of the abdomen and pelvis. Electronically Signed: Nickie Ramirez, at 15:17 EDT Tel , Service support ,
== END ==
PROVIDERS: PCP Family Medicine Geriatric Medicine; Referring Provider Family Medicine Geriatric Medicine; Visit Provider Family Medicine Geriatric Medicine
DX: R19.7 Diarrhea, unspecified (principal)
CPT/HCPCS: 74019

== ENCOUNTER 2020-01-11 12:39 | Outpatient (RCR) | payer MEDICARE, MEDICAID, SELFPAY ==
[2019-12-30 14:29] VITALS: BMI 24.7
--- NOTE | 2020-01-14 09:03 | HP.OTEVAL_ITS ---
Patient's Visit Information SUNNI GUIDRY is a 59 year old F, referred to Occupational Therapy by Dr. Nadia Celis, , with a diagnosis of right wrist contracture, CP. Date of Evaluation: 01/11/20 Occupational Therapist: Alpa Herbert, SB/Tita, CHT - Subjective This 59 year old female was seen for OT eval with dx of right hand contracture, CP. Pt arrives in power w/c with care staff- pt non-verbal- care staff states right wrist is painful at times and would like to know what she can to do help. pt does not currently have a wrist brace. 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 pt still shreads paper in home. - ADLs Comments: pt dependent for all ADLs - Pain right wrist 3 Pain Intensity Range: 1, 4 - Quick DASH-Disab of Arm,Shoulder& Hand Quick DASH Score: 61.6650 - Goals Goal:: staff will demo understanding of donning/doffing orthosis 100% by end of 1st session. staff will demo understanding of watching for skin breakdown and return for therapist to adj orthosis. - Rehabilitation General Assessment: pt demo with resting right wrist in flexion and ulnar deviation. pt demo limited active ability to ext wrist- but therapist can manipulate right wrist in neutral but with 30* UD. PT would benefit from a dorsal wrist brace as cmc is adducted and limited with ability to open her hand. Today therapist олег. cuatom dorsal orthosis for day use. therapist ed. to attempt to valdo. wearing about 2 hours to start per day and increase as pt valdo. or skin tolerates. Therapist advised staff in two differnt braces that are padded to increase comfort. one for night use to decrease AM pain and possible padded dorsal wrist brace if pts skin does not tolerate custom orthosis. staff demo understanding. pt smiled and shook head throughout session. Rehabilitation Potential: Questionable - Anticipated Interventions A/AAROM/PROM, Orthoses, Caregiver Training, Home Program - Visit Plan Frequency: 1x/Week Duration: 3 Weeks TEXT: Thank you for the opportunity to evaluate your patient. For Medicare and Medicare HMO plans, please review the plan of care and approve it. It will need to be FAXED BACK to us at [phone] for Medicare purposes. Please let me know if there are questions or concerns regarding this plan of care. Physician Signature: Date:
== END 2020-01-11 19:00 | disposition home or self-care (01) ==
LOC: OT 12:39
PROVIDERS: PCP Family Medicine Geriatric Medicine; Referring Provider Orthopaedic Surgery; Visit Provider Orthopaedic Surgery
DX: M24.541 Contracture, right hand (principal)
CPT/HCPCS: 97166; 97760

== ENCOUNTER → 2020-05-16 10:42 | Outpatient (CLI) | payer MEDICARE, MEDICAID, SELFPAY ==
[2019-12-30 14:29] VITALS: BMI 24.7
[2020-05-16 12:26] LABS: Absolute Lymphocyte Count 2.73 X10^3/uL (0.83-4.51); Basophil# 0.08 X10^3/uL; Basophil% 1.2 % (0-1); Eosinophil# 0.36 X10^3/uL; Eosinophils% 5.4 % (0-5); Hematocrit 44.4 % (37-47); Hemoglobin 14.1 g/dL (12.0-15.0); Lymphocyte # 2.73 X10^3/ul (4.0); Lymphocyte % 40.9 % (19-41); Mean Corp Hgb Conc 31.8 g/dL (32-36); Mean Corpuscular Hgb 31.1 pg (27.0-32.0); Mean Corpuscular Volume 97.8 fL (81-99); Mean Platelet Vol. 11.7 fl (6.2-12.0); Monocyte# 0.47 X10^3/uL; NRBC Flagged by Analyzer 0 % (0-5); Neutrophil # 3.01 X10^3/uL (2.7-7.7); Neutrophil % 45.2 % (47-70); Platelet Count 283 K/mm3 (150-450); RBC Distribution Width CV 13.4 % (11.6-14.6); RBC Distribution Width SD 49.1 fl (35.1-43.9); Red Blood Count 4.54 M/mm3 (4.2-5.4); White Blood Count 6.7 K/mm3 (4.4-11.0)
[2020-05-16 13:00] LABS: AST(SGOT) 16 U/L (15-37); Alanine Aminotransfer ALT/SGPT 20 U/L (13-56); Albumin, Serum 3.7 g/dL (3.2-5.0); Alkaline Phosphatase 116 U/L (45-117); Anion Gap 9 (5-15); BUN 8 mg/dL (7-18); BUN/Creat Ratio 13.1 RATIO (10-20); Calcium,Total 9.2 mg/dL (8.5-10.1); Chloride 105 mmol/L (98-107); Creatinine, Serum 0.61 mg/dL (0.55-1.02); EST Glomerular Filtration Rate 106 mL/min (>60); Est Glom Filt Rate - Afr Amer 128 mL/min (>60); Globulin 3.7 g/dL (2.2-4.2); Glucose 65 mg/dL (74-106); Potassium 4.6 mmol/L (3.5-5.1); Protein, Total 7.4 g/dL (6.4-8.2); Sodium Level 143 mmol/L (136-145); Thyroid Stim Hormone (TSH) 1.59 uIU/mL (0.358-3.74)
[2020-05-16 13:05] LABS: Vitamin D,25 Hydroxy 29.3 ng/mL
== END ==
PROVIDERS: PCP Family Medicine Geriatric Medicine; Visit Provider Family Medicine Geriatric Medicine
DX: E55.9 Vitamin D deficiency, unspecified (principal); R53.83 Other fatigue
CPT/HCPCS: 36415; 80053; 82306; 84443; 85025

== ENCOUNTER → 2020-09-15 12:07 | Outpatient (CLI) | payer MEDICARE, MEDICAID, SELFPAY ==
[2019-12-30 14:29] VITALS: BMI 24.7
== END ==
PROVIDERS: PCP Family Medicine Geriatric Medicine; Referring Provider Family Medicine Geriatric Medicine; Visit Provider Family Medicine Geriatric Medicine
DX: R68.83 Chills (without fever) (principal)
CPT/HCPCS: 87635; C9803; U0005; U0003

== ENCOUNTER → 2020-10-04 09:40 | Outpatient (CLI) | payer MEDICARE, MEDICAID, SELFPAY ==
[2019-12-30 14:29] VITALS: BMI 24.7
[2020-10-04 11:37] LABS: Hematocrit 44.6 % (37-47); Hemoglobin 14.4 g/dL (12.0-15.0); Mean Corp Hgb Conc 32.3 g/dL (32-36); Mean Corpuscular Hgb 31.5 pg (27.0-32.0); Mean Corpuscular Volume 97.6 fL (81-99); Mean Platelet Vol. 12.8 fl (6.2-12.0); Platelet Count 185 K/mm3 (150-450); RBC Distribution Width CV 14.1 % (11.6-14.6); Red Blood Count 4.57 M/mm3 (4.2-5.4); White Blood Count 7.2 K/mm3 (4.4-11.0)
[2020-10-04 12:05] LABS: ALB/GLOB Ratio 0.9 RATIO (0.9-2.4); AST(SGOT) 11 U/L (15-37); Alanine Aminotransfer ALT/SGPT 22 U/L (13-56); Albumin, Serum 3.6 g/dL (3.2-5.0); Alkaline Phosphatase 100 U/L (45-117); Anion Gap 5 (5-15); BUN 6 mg/dL (7-18); BUN/Creat Ratio 12.8 RATIO (10-20); Calcium,Total 8.9 mg/dL (8.5-10.1); Chloride 105 mmol/L (98-107); Creatinine, Serum 0.47 mg/dL (0.55-1.02); EST Glomerular Filtration Rate 144 mL/min (>60); Est Glom Filt Rate - Afr Amer 175 mL/min (>60); Glucose 69 mg/dL (74-106); Protein, Total 7.6 g/dL (6.4-8.2); Sodium Level 141 mmol/L (136-145); Thyroid Stim Hormone (TSH) 1.78 uIU/mL (0.358-3.74)
== END ==
PROVIDERS: PCP Family Medicine Geriatric Medicine; Referring Provider Psychiatry & Neurology Child & Adolescent Psychiatry; Visit Provider Psychiatry & Neurology Child & Adolescent Psychiatry
DX: Z79.899 Other long term (current) drug therapy (principal)
CPT/HCPCS: 36415; 80053; 84443; 85027

== ENCOUNTER 2021-02-03 14:47 | Emergency (ER) | payer MEDICARE, MEDICAID, SELFPAY ==
[2021-02-03 14:48] VITALS: BP 136/120; PULSE 84; RESP 18; TEMP 36.7; O2SAT 98
[2021-02-03 15:25] VITALS: O2SAT 96
--- NOTE | 2021-02-03 15:30 | RAD_ITS ---
INDICATION: cough EXAMINATION/TECHNIQUE: X-RAY - XR Chest 1 View COMPARISON: 03/30/2018 FINDINGS: LIFE-SUPPORT AND LINES: 1. There is a device projecting over the RIGHT chest wall with 2 leads extending superiorly in the RIGHT neck without change. 2. No congestive failure. HEART AND VESSELS: The cardiac silhouette, pulmonary vasculature have normal appearance. No evidence of congestive failure. LUNGS AND PLEURAL SPACES: Lungs are clear. No focal infiltrate, consolidation or effusions. No evidence of pneumothorax. No pulmonary mass is noted. MEDIASTINUM AND HILAR REGIONS: No masses adenopathy noted. No areas of calcification. Visualized upper airway is normal in position. BONY ELEMENTS: No acute bony changes noted. RAD/Chest 1 View (Portable) IMPRESSION: 1. No evidence of acute cardiopulmonary process Electronically Signed: Jalen Rebollar MD at 15:51 EST Tel , Service support ,
--- NOTE | 2021-02-03 16:16 | EDS_ITS ---
HPI History of Present Illness Chief Complaint: Cough Informant: patient Narrative Narrative: 60-year-old female from shelter where she currently resides due to cerebral palsy is wheelchair-bound reports couple day history of cough. Care staff notes that she seems that she is wheezing. No reported fevers. There are no COVID-19 cases at the facility. They do note a history of chronic pulmonary aspiration. Nursing notes no hypoxemia. She is anticoagulated on apixaban. [facility] Medical History Allergic rhinitis Barretts esophagus Fecal impaction GERD (gastroesophageal reflux disease) Hyperlipidemia Hyperlipidemia Insomnia metal gavi rt leg neurostimulater Pacemaker Pulmonary embolism Vitamin D deficiency Home Medications levothyroxine 50 mcg PO DAILY 09/10/14 [History Last Taken Unknown] loratadine 10 mg PO DAILY 09/10/14 [History Last Taken Unknown] melatonin-pyridoxine (vit B6) 3 mg PO QHS 09/10/14 [History Last Taken Unknown] sennosides 1 tab PO BID 04/20/15 [History Last Taken Unknown] fluoxetine 40 mg PO DAILY 05/19/17 [History Last Taken Unknown] mirtazapine 7.5 mg PO QHS 05/19/17 [History Last Taken Unknown] azelastine 0.05 drp EACH EYE BID PRN 08/08/18 [History Last Taken Unknown] lactulose 10 gm BC BID 08/08/18 [History Last Taken Unknown] polyethylene glycol 3350 17 g BC DAILY 08/08/18 [History Last Taken Unknown] sucralfate 1 gm PO 4X/DAY 08/08/18 [History Last Taken Unknown] ergocalciferol (vitamin D2) 50,000 unit PO QMONTH 11/13/18 [History Last Taken Unknown] apixaban 5 mg PO BID 11/23/18 [History Last Taken Unknown] ipratropium-albuterol 3 ml IH PRN PRN 11/23/18 [History Last Taken Unknown] omeprazole 40 mg PO DAILY 01/08/19 [History Last Taken Unknown] ferrous fumarate-vitamin C 1 ea PO DAILY #90 tablet.er 02/23/19 [Rx Last Taken Unknown] zinc oxide 13 % topical cream 1 applic TOPICAL BID-QID PRN 12/30/19 [History Last Taken Unknown] ascorbic acid (vitamin C) 500 mg PO DAILY@0800 90 Days #90 tab 01/31/20 [Rx Last Taken Unknown] ferrous gluconate 324 mg PO DAILY 90 Days #90 tab 01/31/20 [Rx Last Taken Unknown] albuterol sulfate [Ventolin HFA] 2 puff INHALATION Q4H PRN PRN #1 inhaler 02/03/21 [Rx Last Taken Unknown] doxycycline monohydrate 100 mg PO BID #20 capsule 02/03/21 [Rx Last Taken Unknown] prednisone 60 mg PO DAILY #15 tablet 02/03/21 [Rx Last Taken Unknown] Allergy/AdvReac Type Severity Reaction Status Date / Time amoxicillin trihydrate AdvReac Unknown Verified 02/03/21 14:48 [From Augmentin] potassium clavulanate AdvReac Unknown Verified 02/03/21 14:48 [From Augmentin] Surgical History Hx of cataract removal with insertion of prosthetic lens Social History (Updated 02/03/21 @ 16:[address] Samir Lee DO) Smoking Status: Never smoker substance use type: does not use ROS ROS ED Constitutional Constitutional ED: Denies chills or weight loss Eyes Eyes: Denies change in vision or diplopia ENT ENT ED: Denies ear pain, rhinorrhea or sore throat Cardiovascular Cardiovascular: Denies chest pain, orthopnea, palpitations or racing heartbeat Respiratory/Chest Respiratory/Chest: Reports cough and dyspnea; Denies orthopnea Gastrointestinal Gastrointestinal: Denies abdominal pain, diarrhea, nausea or vomiting Genitourinary Genitourinary ED: Denies dysuria, hematuria or urinary frequency Musculoskeletal Musculoskeletal: Denies arthralgias or myalgias Integumentary Denies abscess or rash Neurologic Neurologic: Denies headache(s) or weakness Psychiatric Psychiatric: Denies anxiety, depression, suicidal ideation or suicidal thoughts Endocrine Endocrinology: Denies polydipsia, polyphagia or polyuria Allergic/Immunologic Allergic/Immunologic ED: Denies mouth swelling, tongue swelling or urticaria EXAM Physical Exam Narrative Exam Narrative: Chronic contractures of upper extremities wheelchair-bound Const Vital Signs: 02/03/21 14:48 02/03/21 15:25 Temperature 98.1 F Temperature Source Temporal Pulse Rate 84 Respiratory Rate 18 Respiratory Effort Normal Respiratory Depth Normal Respiratory Pattern Normal Blood Pressure 136/120 H Blood Pressure Mean 125 Pulse Ox 98 Oxygen Delivery Method Room Air Room Air Positive well nourished and well developed General Appearance ED: well developed HEENT Reports normocephalic, head/scalp atraumatic, TM's clear and moist mucous membranes Tympanic Membrane ED: Yes TM's clear Eyes PERRL and EOMs intact bilaterally Neck no lymphadenopathy, supple and no JVD Resp Resp Narrative: There is a rhonchorous cough with slight expiratory wheeze Cardio regular rate, regular rhythm and no murmurs GI normal to inspection, nondistended, normoactive bowel sounds and non-tender Auscultation: normoactive bowel sounds Palpation: soft Back/Spine no CVA tenderness and normal ROM Extremity normal to inspection General Extremety ED: Negative for edema General Extremity: Negative for edema Neuro CN's II-XII intact bilaterally Sensorium / Orientation: alert Psych mental status grossly normal Mood & Affect: Negative for depressed or tearful Skin no rashes or lesions noted and no wounds MDM MDM MDM Narrative Medical decision making narrative: My termination of the chest x-ray is no acute process. Covid influenza test were negative. Patient will be discharged home with prescriptions for albuterol MDI, doxycycline and prednisone. Follow with primary care in 1 week if not improving return if worsening or concerns Radiography Diagnostic Testing: Clinical Impression(s) from Imaging Studies Chest X-Ray 02/03/21 15:30 IMPRESSION: 1. No evidence of acute cardiopulmonary process Electronically Signed: Jalen Rebollar MD at 15:51 EST Tel , Service support , Discharge Plan Triage Chief Complaint: Cough ED Provider: Samir Lee Dx/Rx/DC Orders Clinical Impression: Acute bronchitis with bronchospasm Instructions: ED Bronchitis with Wheezing (Adult) Prescriptions: New prednisone 20 MG tablet 60 mg PO DAILY Qty: 15 RF: 0 doxycycline monohydrate 100 MG capsule 100 mg PO BID Qty: 20 RF: 0 albuterol sulfate [Ventolin HFA] 1 INHALER inhaler 2 puff inhalation Q4H PRN PRN (Reason: Wheezing) Qty: 1 RF: 0 No Action Desitin Rapid Relief 13 % cream 1 applic TOPICAL BID-QID PRNRF: 0 levothyroxine 75 MCG tablet 50 mcg PO DAILY RF: 0 melatonin-pyridoxine (vit B6) 1 EACH tablet 3 mg PO QHS RF: 0 loratadine 10 MG tablet 10 mg PO DAILY RF: 0 sennosides 1 TABLET tablet 1 tab PO BID RF: 0 fluoxetine 10 MG capsule 40 mg PO DAILY RF: 0 mirtazapine 7.5 MG tablet 7.5 mg PO QHS RF: 0 azelastine 6 ML drops 0.05 drp EACH EYE BID PRN (Reason: Dry Eyes) RF: 0 sucralfate 1 GM/10 ML suspension 1 gm PO 4X/DAY RF: 0 polyethylene glycol 3350 238 GM powder 17 g BC DAILY RF: 0 lactulose 10 GM/15 ML solution 10 gm BC BID RF: 0 ergocalciferol (vitamin D2) 50,000 UNIT capsule 50,000 unit PO QMONTH RF: 0 ipratropium-albuterol 3 ML solution for nebulization 3 ml IH PRN PRN (Reason: SOB/WHEEZING) RF: 0 apixaban 5 MG tablet 5 mg PO BID RF: 0 ferrous fumarate-vitamin C 1 EACH tablet extended release 1 ea PO DAILY Qty: 90 RF: 3 ascorbic acid (vitamin C) 500 MG tablet 500 mg PO DAILY@0800 90 Days Qty: 90 RF: 1 ferrous gluconate 324 MG tablet 324 mg PO DAILY 90 Days Qty: 90 RF: 1 omeprazole 20 MG capsule 40 mg PO DAILY RF: 0 Primary Care Provider: Rocky Barlow Chi Referrals: Rocky Barlow Chi, MD [Primary Care Provider] - 1 Week if not improving Disposition Disposition: Home, Self Care
== END 2021-02-03 16:51 | disposition home or self-care (01) ==
PROVIDERS: Emergency Provider Emergency Medicine; PCP Family Medicine Geriatric Medicine
DX: J20.9 Acute bronchitis, unspecified (principal); Z20.822 Contact with and (suspected) exposure to COVID-19; G80.9 Cerebral palsy, unspecified; E78.5 Hyperlipidemia, unspecified; G47.00 Insomnia, unspecified; K21.9 Gastro-esophageal reflux disease without esophagitis; E55.9 Vitamin D deficiency, unspecified; Z99.3 Dependence on wheelchair; Z79.01 Long term (current) use of anticoagulants; Z79.890 Hormone replacement therapy; Z79.899 Other long term (current) drug therapy; Z95.0 Presence of cardiac pacemaker; Z86.711 Personal history of pulmonary embolism
CPT/HCPCS: 71045; 87426; 87804; 99282

== ENCOUNTER 2021-02-05 21:59 | Emergency (ER) | payer MEDICARE, MEDICAID, SELFPAY ==
[2021-02-05 22:00] VITALS: BP 117/57; PULSE 94; RESP 22; TEMP 36.3; O2SAT 93
[2021-02-05 22:33] VITALS: O2SAT 96
--- NOTE | 2021-02-05 22:45 | EDS_ITS ---
HPI History of Present Illness Chief Complaint: Cough Narrative Narrative: Patient is a 60-year-old female with MRDD. She was seen in the ER recently secondary to congestion and cough and diagnosed with bronchitis. She is currently on prednisone and doxycycline and has had minimal symptom improvement. residential states her still been persistent wheezing and secondary to this brings her in for evaluation. The patient cannot offer any further history based on her MRDD status [facility] Medical History Allergic rhinitis Barretts esophagus Fecal impaction GERD (gastroesophageal reflux disease) Hyperlipidemia Hyperlipidemia Insomnia metal gavi rt leg neurostimulater Pacemaker Pulmonary embolism Vitamin D deficiency Home Medications levothyroxine 50 mcg PO DAILY 09/10/14 [History Last Taken Unknown] loratadine 10 mg PO DAILY 09/10/14 [History Last Taken Unknown] melatonin-pyridoxine (vit B6) 3 mg PO QHS 09/10/14 [History Last Taken Unknown] sennosides 1 tab PO BID 04/20/15 [History Last Taken Unknown] fluoxetine 40 mg PO DAILY 05/19/17 [History Last Taken Unknown] mirtazapine 7.5 mg PO QHS 05/19/17 [History Last Taken Unknown] azelastine 0.05 drp EACH EYE BID PRN 08/08/18 [History Last Taken Unknown] lactulose 10 gm BC BID 08/08/18 [History Last Taken Unknown] polyethylene glycol 3350 17 g BC DAILY 08/08/18 [History Last Taken Unknown] sucralfate 1 gm PO 4X/DAY 08/08/18 [History Last Taken Unknown] ergocalciferol (vitamin D2) 50,000 unit PO QMONTH 11/13/18 [History Last Taken Unknown] apixaban 5 mg PO BID 11/23/18 [History Last Taken Unknown] ipratropium-albuterol 3 ml IH PRN PRN 11/23/18 [History Last Taken Unknown] omeprazole 40 mg PO DAILY 01/08/19 [History Last Taken Unknown] ferrous fumarate-vitamin C 1 ea PO DAILY #90 tablet.er 02/23/19 [Rx Last Taken Unknown] zinc oxide 13 % topical cream 1 applic TOPICAL BID-QID PRN 12/30/19 [History Last Taken Unknown] ascorbic acid (vitamin C) 500 mg PO DAILY@0800 90 Days #90 tab 01/31/20 [Rx Last Taken Unknown] ferrous gluconate 324 mg PO DAILY 90 Days #90 tab 01/31/20 [Rx Last Taken Unknown] albuterol sulfate [Ventolin HFA] 2 puff INHALATION Q4H PRN PRN #1 inhaler 02/03/21 [Rx Last Taken Unknown] doxycycline monohydrate 100 mg PO BID #20 capsule 02/03/21 [Rx Last Taken Unknown] prednisone 60 mg PO DAILY #15 tablet 02/03/21 [Rx Last Taken Unknown] albuterol sulfate 2.5 mg INHALATION Q6H PRN #90 ml 02/06/21 [Rx Last Taken Unknown] benzonatate 200 mg PO TID PRN #60 cap 02/06/21 [Rx Last Taken Unknown] ipratropium-albuterol 3 ml INHALATION Q6H PRN #90 ml 02/06/21 [Rx Last Taken Unknown] Allergy/AdvReac Type Severity Reaction Status Date / Time amoxicillin trihydrate AdvReac Unknown Verified 02/03/21 14:48 [From Augmentin] potassium clavulanate AdvReac Unknown Verified 02/03/21 14:48 [From Augmentin] Surgical History Hx of cataract removal with insertion of prosthetic lens Social History (Updated 02/03/21 @ 16:[address] Samir Lee DO) Smoking Status: Never smoker substance use type: does not use ROS ROS ED ROS Narrative Please note review of systems obtained from the jail staff secondary to patient's MRDD status Constitutional Constitutional ED: Denies fever(s) ENT ENT ED: Reports rhinorrhea; Denies sore throat Cardiovascular Cardiovascular: Denies chest pain Respiratory/Chest Respiratory/Chest: Reports cough and dyspnea Gastrointestinal Gastrointestinal: Denies abdominal pain, nausea or vomiting Integumentary Denies rash Neurologic Neurologic: Denies headache(s) Hematologic/Lymphatic Hematologic/Lymphatic: Reports easy bleeding and easy bruising EXAM Physical Exam Const Vital Signs: 02/05/21 22:00 02/05/21 22:33 02/05/21 22:51 Temperature 97.3 F L Temperature Source Temporal Pulse Rate 94 82 Respiratory Rate 22 H 20 H Respiratory Effort Non-Labored Short of Breath Respiratory Depth Normal Respiratory Pattern Normal Normal Blood Pressure 117/57 L Blood Pressure Mean 77 Pulse Ox 93 94 Oxygen Delivery Method Room Air Room Air Positive well nourished and well developed General Appearance ED: well developed HEENT Reports moist mucous membranes HEENT Narrative: Nasal mucosa is hyperemic and boggy and there is cobblestoning the posterior pharynx consistent with sinus drainage. No airway edema or compromise noted Eyes PERRL and EOMs intact bilaterally Neck supple Neck Narrative: Positive anterior cervical lymphadenopathy Resp normal respiratory effort Resp Narrative: Breath sounds are diminished throughout with diffuse inspiratory and expiratory wheezes but no nasal flaring retractions tachypnea or accessory muscle use Cardio regular rate and regular rhythm Extremity normal to inspection Extremity Narrative: No asymmetric edema no pitting edema negative Homans' sign bilaterally Neuro CN's II-XII intact bilaterally Neuro Narrative: Patient is at her baseline mental status without focal neurologic deficit Sensorium / Orientation: alert Psych mental status grossly normal Skin no rashes or lesions noted MDM MDM MDM Narrative Medical decision making narrative: Patient presented to the ER in no acute respiratory distress satting in the low to mid 90s on room air. She had a recent Covid and influenza swab which were negative. I elected to repeat a chest x-ray which revealed no obvious infiltrate pneumothorax or pleural effusion. After IM steroids and breathing treatments her breath sounds were improved and she remained in no acute distress. Therefore this time patient most likely has a viral bronchitis and can continue the medications prescribed from her previous visit and I will add Tessalon Perles and nebulizer treatments. However as she is in no signs of respiratory distress is safe to return home Radiography Diagnostic Testing: Clinical Impression(s) from Imaging Studies Chest X-Ray 02/05/21 23:15 IMPRESSION: No acute findings in the chest. at 2346 Reported and signed by: Nick Man MD Electronically Signed: Nick Man MD at 23:45 EST Tel , Service support , Discharge Plan Triage Chief Complaint: Cough ED Provider: Haresh Curtis Dx/Rx/DC Orders Clinical Impression: Acute bronchitis Instructions: Acute Bronchitis Prescriptions: New ipratropium-albuterol 0.5 mg-3 mg(2.5 mg base)/3 mL solution for nebulization 3 ml inhalation Q6H PRN (Reason: shortness of breath or wheezing) Qty: 90 RF: 0 albuterol sulfate 2.5 mg /3 mL (0.083 %) solution for nebulization 2.5 mg inhalation Q6H PRN (Reason: shortness of breath or wheezing) Qty: 90 RF: 0 benzonatate 100 mg capsule 200 mg PO TID PRN (Reason: cough) Qty: 60 RF: 0 No Action Desitin Rapid Relief 13 % cream 1 applic TOPICAL BID-QID PRNRF: 0 levothyroxine 75 MCG tablet 50 mcg PO DAILY RF: 0 melatonin-pyridoxine (vit B6) 1 EACH tablet 3 mg PO QHS RF: 0 loratadine 10 MG tablet 10 mg PO DAILY RF: 0 sennosides 1 TABLET tablet 1 tab PO BID RF: 0 fluoxetine 10 MG capsule 40 mg PO DAILY RF: 0 mirtazapine 7.5 MG tablet 7.5 mg PO QHS RF: 0 azelastine 6 ML drops 0.05 drp EACH EYE BID PRN (Reason: Dry Eyes) RF: 0 sucralfate 1 GM/10 ML suspension 1 gm PO 4X/DAY RF: 0 polyethylene glycol 3350 238 GM powder 17 g BC DAILY RF: 0 lactulose 10 GM/15 ML solution 10 gm BC BID RF: 0 ergocalciferol (vitamin D2) 50,000 UNIT capsule 50,000 unit PO QMONTH RF: 0 ipratropium-albuterol 3 ML solution for nebulization 3 ml IH PRN PRN (Reason: SOB/WHEEZING) RF: 0 apixaban 5 MG tablet 5 mg PO BID RF: 0 ferrous fumarate-vitamin C 1 EACH tablet extended release 1 ea PO DAILY Qty: 90 RF: 3 ascorbic acid (vitamin C) 500 MG tablet 500 mg PO DAILY@0800 90 Days Qty: 90 RF: 1 ferrous gluconate 324 MG tablet 324 mg PO DAILY 90 Days Qty: 90 RF: 1 omeprazole 20 MG capsule 40 mg PO DAILY RF: 0 prednisone 20 MG tablet 60 mg PO DAILY Qty: 15 RF: 0 doxycycline monohydrate 100 MG capsule 100 mg PO BID Qty: 20 RF: 0 albuterol sulfate [Ventolin HFA] 1 INHALER inhaler 2 puff inhalation Q4H PRN PRN (Reason: Wheezing) Qty: 1 RF: 0 Primary Care Provider: Rocky Barlow Chi Referrals: Rocky Barlow Chi, MD [Primary Care Provider] - Disposition Disposition: Home, Self Care
[2021-02-05 22:51] VITALS: PULSE 82; RESP 20; O2SAT 94
[2021-02-05] MEDS: Albuterol 2.5 MG/3 ML VIAL.NEB. INHALATION (22:51)
[2021-02-05] MEDS: Ipratropium/Albuterol Sulfate 3 ML AMPUL.NEB INHALATION (22:51)
--- NOTE | 2021-02-05 23:15 | RAD_ITS ---
EXAM: XR CHEST, 1 VIEW : 1960 CLINICAL INDICATION: cough TECHNIQUE: Frontal view of the chest. This report was created using [employer] report generation technology. COMPARISON: 02/03/21 FINDINGS: LUNGS AND PLEURAL SPACES: Unremarkable. No consolidation or edema. No pneumothorax. No effusion. HEART: Mild enlargement of the cardiac silhouette. MEDIASTINUM: Central airways and mediastinal contour are unremarkable. BONES/JOINTS: Unremarkable. SOFT TISSUES: Unremarkable. RAD/Chest 1 View (Portable) IMPRESSION: No acute findings in the chest. at 2346 Reported and signed by: Nick Man MD Electronically Signed: Nick Man MD at 23:45 EST Tel , Service support ,
[2021-02-05] MEDS: MethylPREDNISolone 125 MG/2 ML Vial IM (23:31)
[2021-02-06 00:40] VITALS: BP 133/57; PULSE 62; RESP 17; O2SAT 97
== END 2021-02-06 00:41 | disposition home or self-care (01) ==
PROVIDERS: Emergency Provider Emergency Medicine; PCP Family Medicine Geriatric Medicine
DX: J20.9 Acute bronchitis, unspecified (principal); Z95.0 Presence of cardiac pacemaker
CPT/HCPCS: 71045; 94640; 96372; 99251; 99282; G0463

== ENCOUNTER 2021-04-25 15:11 | Outpatient (CLI) | payer MEDICARE, MEDICAID, SELFPAY ==
--- NOTE | 2021-04-25 15:40 | RAD_ITS ---
EXAM: XR LEFT RIBS AND AP CHEST, 3 OR MORE VIEWS CLINICAL INDICATION: RIB PAIN TECHNIQUE: Frontal and oblique views of the left ribs and frontal view of the chest. This report was created using [employer] report generation technology. COMPARISON: 02.05.21 FINDINGS: LUNGS AND PLEURAL SPACES: Unremarkable. No consolidation or edema. No pneumothorax. No effusion. HEART: Unremarkable. Cardiac silhouette not enlarged. MEDIASTINUM: There is a hiatal hernia. BONES/JOINTS: Unremarkable. No evidence of displaced rib fractures. TUBES, LINES AND DEVICES: Electronic device over the right chest wall. RAD/Ribs Uni Min 3V w/PA Chest IMPRESSION: No acute findings in the chest or left ribs. Electronically Signed: Nick Choudhury MD at 16:58 EST Reading Location ID and State: [facility] / [place] , Service support ,
== END 2021-04-25 23:59 | disposition home or self-care (01) ==
LOC: RAD 15:12
PROVIDERS: PCP Family Medicine Geriatric Medicine; Referring Provider Family Medicine Geriatric Medicine; Visit Provider Family Medicine Geriatric Medicine
DX: R07.81 Pleurodynia (principal)
CPT/HCPCS: 71101

== ENCOUNTER 2021-05-30 16:15 | Outpatient (CLI) | payer MEDICARE, MEDICAID, SELFPAY ==
--- NOTE | 2021-05-30 16:25 | RAD_ITS ---
EXAM: XR RIGHT FOOT COMPLETE, 3 OR MORE VIEWS CLINICAL INDICATION: FOOT PAIN TECHNIQUE: Frontal, lateral and oblique views of the right foot. This report was created using [employer] report generation technology. COMPARISON: None. FINDINGS: BONES/JOINTS: Acute fracture involving the lateral aspect of the base of the first metatarsal. Diffuse osteopenia. No acute or healing fracture or malalignment. No unusual lytic or sclerotic lesions of bone. Preservation of the joint space. SOFT TISSUES: No focal soft tissue abnormalities. Soft tissue swelling centered about the forefoot. No soft tissue swelling or gas. No radiopaque foreign body. RAD/Foot min 3 Views IMPRESSION: Acute fracture involving the lateral aspect of the base of the first metatarsal. No acute or healing fracture or malalignment. Electronically Signed: aHresh Boone MD at 4:20 EDT ,
== END 2021-05-30 23:59 | disposition home or self-care (01) ==
LOC: RAD 16:20
PROVIDERS: PCP Family Medicine Geriatric Medicine; Referring Provider Family Medicine Geriatric Medicine; Visit Provider Family Medicine Geriatric Medicine
DX: M79.671 Pain in right foot (principal)
CPT/HCPCS: 73630

== ENCOUNTER 2021-06-06 10:15 | Outpatient (CLI) | payer MEDICARE, MEDICAID, SELFPAY ==
[2021-06-06 11:05] LABS: Absolute Lymphocyte Count 0.76 X10^3/uL (0.83-4.51); Absolute Neutrophil Count 5.3 X10^3/uL (2.0-7.7); Basophil# 0.01 X10^3/uL; Basophil% 0.2 % (0-1); Hematocrit 42.2 % (37-47); Lymphocyte # 0.76 X10^3/ul (0.83-4.51); Lymphocyte % 12.2 % (19-41); Mean Corp Hgb Conc 33.2 g/dL (32-36); Mean Corpuscular Volume 93.6 fL (81-99); Mean Platelet Vol. 11.5 fl (6.2-12.0); Monocyte# 0.15 X10^3/uL; Monocyte% 2.4 % (0-10); NRBC Flagged by Analyzer 0 % (0-5); Neutrophil # 5.31 X10^3/uL (2.7-7.7); Platelet Count 326 K/mm3 (150-450); RBC Distribution Width CV 14.3 % (11.6-14.6); Red Blood Count 4.51 M/mm3 (4.2-5.4); White Blood Count 6.2 K/mm3 (4.4-11.0)
[2021-06-06 11:38] LABS: Vitamin D,25 Hydroxy 47.8 ng/mL
[2021-06-06 11:48] LABS: ALB/GLOB Ratio 0.9 RATIO (0.9-2.4); AST(SGOT) 19 U/L (15-37); Alanine Aminotransfer ALT/SGPT 21 U/L (13-56); Albumin, Serum 3.7 g/dL (3.2-5.0); Alkaline Phosphatase 123 U/L (45-117); Anion Gap 5 (5-15); BUN 9 mg/dL (7-18); BUN/Creat Ratio 18.4 RATIO (10-20); Calcium,Total 9.1 mg/dL (8.5-10.1); Chloride 106 mmol/L (98-107); Creatinine, Serum 0.49 mg/dL (0.55-1.02); EST Glomerular Filtration Rate 137 mL/min (>60); Est Glom Filt Rate - Afr Amer 166 mL/min (>60); Globulin 3.9 g/dL (2.2-4.2); Glucose 107 mg/dL (74-106); Potassium 4.2 mmol/L (3.5-5.1); Protein, Total 7.6 g/dL (6.4-8.2); Sodium Level 140 mmol/L (136-145); Thyroid Stim Hormone (TSH) 0.68 uIU/mL (0.358-3.74)
== END 2021-06-06 23:59 | disposition home or self-care (01) ==
LOC: LAB 10:16
PROVIDERS: PCP Family Medicine Geriatric Medicine; Visit Provider Family Medicine Geriatric Medicine
DX: E55.9 Vitamin D deficiency, unspecified (principal); R53.83 Other fatigue
CPT/HCPCS: 36415; 80053; 82306; 84443; 85025

== ENCOUNTER → 2021-07-09 | Outpatient (CLI) | payer MEDICARE, MEDICAID, SELFPAY ==
--- NOTE | 2021-07-09 09:23 | RAD_ITS ---
STUDY: X-RAY - RIGHT FOOT CLINICAL: Female, 61 years old. OTHER FRACTURE OF RIGHT FOOT TECHNIQUE: view(s) of the foot. COMPARISON: None. FINDINGS: Normal talus, calcaneus, and tarsal bones. Normal visualized subtalar, talonavicular, calcaneocuboid, tarsal and tarsometatarsal articulations. Normal metatarsi. Normal metatarsophalangeal joint of the great toe. Normal tibial and fibular sesamoid bones. There is a healing fracture of the first metatarsal. There is periosteal reaction along the entire shaft and there is callus forming proximally. There is soft tissue swelling at the dorsum of the metatarsals. Normal second through fifth metatarsophalangeal joints. Normal interphalangeal joints and phalanges of the lesser toes. The soft tissue structures are unremarkable. RAD/Foot min 3 Views IMPRESSION: Healing fracture of the first metatarsal. Electronically Signed: Everett Morales MD at 1:39 EDT ,
== END | disposition home or self-care (01) ==
PROVIDERS: PCP Family Medicine Geriatric Medicine; Referring Provider Podiatrist; Visit Provider Podiatrist
DX: S92.811A Other fracture of right foot, initial encounter for closed fracture (principal)
CPT/HCPCS: 73630

== ENCOUNTER → 2021-07-26 | Outpatient (CLI) | payer MEDICARE, MEDICAID, SELFPAY ==
[2021-07-26 16:25] LABS: Absolute Lymphocyte Count 2.58 X10^3/uL (0.83-4.51); Absolute Neutrophil Count 4.6 X10^3/uL (2.0-7.7); Basophil# 0.06 X10^3/uL; Basophil% 0.7 % (0-1); Eosinophil# 0.18 X10^3/uL; Eosinophils% 2.2 % (0-5); Hematocrit 47.3 % (37-47); Hemoglobin 16.1 g/dL (12.0-15.0); Lymphocyte # 2.58 X10^3/ul (0.83-4.51); Lymphocyte % 32.1 % (19-41); Mean Platelet Vol. 12.3 fl (6.2-12.0); Monocyte# 0.62 X10^3/uL; Monocyte% 7.7 % (0-10); NRBC Flagged by Analyzer 0 % (0-5); Neutrophil # 4.57 X10^3/uL (2.7-7.7); Neutrophil % 57.1 % (47-70); Platelet Count 235 K/mm3 (150-450); RBC Distribution Width SD 48.4 fl (35.1-43.9); Red Blood Count 5.03 M/mm3 (4.2-5.4)
== END | disposition home or self-care (01) ==
LOC: POLAB3 14:47
PROVIDERS: PCP Family Medicine Geriatric Medicine; Visit Provider Family Medicine Geriatric Medicine
DX: G93.40 Encephalopathy, unspecified (principal)
CPT/HCPCS: 36415; 80053; 85025

== ENCOUNTER → 2021-07-27 | Outpatient (CLI) | payer MEDICARE, MEDICAID, SELFPAY | END | disposition home or self-care (01) | LOC: LABSPEC 11:40 | PROVIDERS: PCP Family Medicine Geriatric Medicine; Visit Provider Family Medicine Geriatric Medicine | DX: N39.0 Urinary tract infection, site not specified (principal) | CPT/HCPCS: 87086; 87088 ==

== ENCOUNTER → 2021-11-28 | Outpatient (CLI) | payer MEDICARE, MEDICAID, SELFPAY ==
[2021-11-28 16:54] LABS: Absolute Lymphocyte Count 2.65 X10^3/uL (0.83-4.51); Absolute Neutrophil Count 6.8 X10^3/uL (2.0-7.7); Basophil# 0.06 X10^3/uL; Basophil% 0.6 % (0-1); Eosinophil# 0.36 X10^3/uL; Eosinophils% 3.5 % (0-5); Hematocrit 42.7 % (37-47); Lymphocyte # 2.65 X10^3/ul (0.83-4.51); Lymphocyte % 25.4 % (19-41); Mean Corp Hgb Conc 32.8 g/dL (32-36); Mean Corpuscular Hgb 31.8 pg (27.0-32.0); Mean Platelet Vol. 11.6 fl (6.2-12.0); Monocyte# 0.54 X10^3/uL; Monocyte% 5.2 % (0-10); NRBC Flagged by Analyzer 0 % (0-5); Neutrophil # 6.77 X10^3/uL (2.7-7.7); Neutrophil % 64.9 % (47-70); Platelet Count 304 K/mm3 (150-450); RBC Distribution Width CV 13.8 % (11.6-14.6); RBC Distribution Width SD 49.1 fl (35.1-43.9); White Blood Count 10.4 K/mm3 (4.4-11.0)
[2021-11-28 17:21] LABS: Vitamin D,25 Hydroxy 31.6 ng/mL
[2021-11-28 17:25] LABS: ALB/GLOB Ratio 0.9 RATIO (0.9-2.4); AST(SGOT) 21 U/L (15-37); Alanine Aminotransfer ALT/SGPT 24 U/L (13-56); Albumin, Serum 3.7 g/dL (3.2-5.0); Alkaline Phosphatase 109 U/L (45-117); Anion Gap 9 (5-15); BUN 13 mg/dL (7-18); BUN/Creat Ratio 24.8 RATIO (10-20); Chloride 103 mmol/L (98-107); Creatinine, Serum 0.52 mg/dL (0.55-1.02); EST Glomerular Filtration Rate 126 mL/min (>60); Est Glom Filt Rate - Afr Amer 153 mL/min (>60); Globulin 4.1 g/dL (2.2-4.2); Glucose 98 mg/dL (74-106); Potassium 3.8 mmol/L (3.5-5.1); Protein, Total 7.8 g/dL (6.4-8.2); Sodium Level 138 mmol/L (136-145); Thyroid Stim Hormone (TSH) 1.16 uIU/mL (0.358-3.74)
== END | disposition home or self-care (01) ==
LOC: POLAB3 13:13
PROVIDERS: PCP Family Medicine Geriatric Medicine; Visit Provider Family Medicine Geriatric Medicine
DX: R53.83 Other fatigue (principal); E55.9 Vitamin D deficiency, unspecified
CPT/HCPCS: 36415; 80053; 82306; 84443; 85025

== ENCOUNTER → 2021-11-30 | Outpatient (CLI) | payer MEDICARE, MEDICAID, SELFPAY | END | disposition home or self-care (01) | LOC: PSN 14:03 | PROVIDERS: PCP Family Medicine Geriatric Medicine; Referring Provider Family Medicine Geriatric Medicine; Visit Provider Family Medicine Geriatric Medicine | DX: R68.83 Chills (without fever) (principal) | CPT/HCPCS: 87635; 87804; 87807; C9803; U0003; U0005 ==

== ENCOUNTER → 2021-12-31 | Outpatient (CLI) | payer MEDICARE, MEDICAID, SELFPAY ==
--- NOTE | 2021-12-31 15:55 | RAD_ITS ---
STUDY: X-RAY CHEST REASON FOR EXAM: Female, 61 years old. COUGH TECHNIQUE: XR Chest 2 Views COMPARISON: 2 FINDINGS: There is atherosclerotic calcification of the aortic arch with tortuosity. There are diffuse degenerative changes of the visualized thoracic spine. There is degenerative osteoarthritis of the bilateral shoulders. There is no demonstrated pleural abnormality. Normal size heart. Normal mediastinum and shanell. Normal visualized pulmonary arteries. There is no demonstrated abnormality of the visualized soft tissue structures of the upper abdomen. RAD/Chest PA and Lateral IMPRESSION: There are no acute findings. Electronically Signed: Nick Choudhury MD at 16:11 EDT ,
== END | disposition home or self-care (01) ==
PROVIDERS: PCP Family Medicine Geriatric Medicine; Referring Provider Family Medicine Geriatric Medicine; Visit Provider Family Medicine Geriatric Medicine
DX: R05.9 Cough, unspecified (principal); R68.83 Chills (without fever)
CPT/HCPCS: 71046; 87635; 87804; 87807; U0003; U0005

== ENCOUNTER 2022-01-02 15:56 | Observation (INO) | payer MEDICARE, MEDICAID, SELFPAY ==
[2022-01-02] VITALS (10 sets, daily range): BP systolic 106–182; BP diastolic 59–120; PULSE 92–108; RESP 24–32; TEMP 36.3–37; O2SAT 88–98; BMI 27.1; BMI 23.2
--- NOTE | 2022-01-02 16:56 | EKG12_ITS ---
Test Reason : SOB Blood Pressure : / mmHG Vent. Rate : 104 BPM Atrial Rate : 104 BPM P-R Int : 128 ms QRS Dur : 070 ms QT Int : 332 ms P-R-T Axes : 047 013 -16 degrees QTc Int : 436 ms Sinus tachycardia Nonspecific T wave abnormality Abnormal ECG Confirmed by LIBERTAD LEVY, ROBINSON ([id number]), editorial clerk GERRI ARMIJO ([id number]) on 01/04/2022 2:15:14 P M Referred By: JAMA/CALISTA Confirmed By:HUONG MAURER MD
[2022-01-02 17:42] LABS: Anion Gap 4 (5-15); BUN 13 mg/dL (7-18); BUN/Creat Ratio 24.1 RATIO (10-20); Calcium,Total 9.5 mg/dL (8.5-10.1); Chloride 107 mmol/L (98-107); Creatinine, Serum 0.54 mg/dL (0.55-1.02); EST Glomerular Filtration Rate 123 mL/min (>60); Est Glom Filt Rate - Afr Amer 148 mL/min (>60); Estimated Creatinine Clearance 103.13 ml/min; Glucose 115 mg/dL (74-106); Potassium 3.7 mmol/L (3.5-5.1); Sodium Level 141 mmol/L (136-145)
[2022-01-02 17:52] LABS: Absolute Lymphocyte Count 1.91 X10^3/uL (0.83-4.51); Absolute Neutrophil Count 9.9 X10^3/uL (2.0-7.7); Basophil# 0.05 X10^3/uL; Basophil% 0.4 % (0-1); Eosinophil# 0.01 X10^3/uL; Eosinophils% 0.1 % (0-5); Hematocrit 40.2 % (37-47); Hemoglobin 13.4 g/dL (12.0-15.0); Lymphocyte # 1.91 X10^3/ul (0.83-4.51); Lymphocyte % 14.3 % (19-41); Mean Corp Hgb Conc 33.3 g/dL (32-36); Mean Corpuscular Hgb 31.7 pg (27.0-32.0); Mean Platelet Vol. 11.1 fl (6.2-12.0); Monocyte% 10.5 % (0-10); NRBC Flagged by Analyzer 0 % (0-5); Neutrophil % 73.9 % (47-70); Platelet Count 289 K/mm3 (150-450); RBC Distribution Width CV 14.8 % (11.6-14.6); RBC Distribution Width SD 52.1 fl (35.1-43.9); Red Blood Count 4.23 M/mm3 (4.2-5.4); White Blood Count 13.4 K/mm3 (4.4-11.0)
[2022-01-02] MEDS: Ipratropium/Albuterol Sulfate 3 ML AMPUL.NEB INHALATION (18:12)
--- NOTE | 2022-01-02 18:20 | RAD_ITS ---
STUDY: X-RAY CHEST REASON FOR EXAM: Female, 61 years old. CHEST PAIN cough, hypoixa TECHNIQUE: XR Chest 1 View COMPARISON: Two days ago. FINDINGS: There is no demonstrated pleural abnormality. Normal size heart. Normal mediastinum and shanell. Normal visualized pulmonary arteries. Normal visualized aortic arch and descending thoracic aorta. Normal visualized thoracic spine. Normal visualized ribs, clavicles, and shoulders. There is no demonstrated abnormality of the visualized soft tissue structures of the upper abdomen. RAD/Chest 1 View (Portable) IMPRESSION: There are no acute findings. Electronically Signed: Nick Choudhury MD at 18:34 EDT ,
[2022-01-02] MEDS: MethylPREDNISolone 125 MG/2 ML Vial IV (18:25)
--- NOTE | 2022-01-02 18:25 | EDS_ITS ---
HPI HPI - URI History of Present Illness Chief Complaint: Shortness of Breath Informant: patient Narrative Narrative: Patient is a 61-year-old female with history of cerebral palsy, GERD, pacemaker placement and aspiration pneumonitis presenting from [facility] for concerns of difficulty breathing. Patient started having symptoms on Friday, 3 days ago, and was swabbed for RSV 2 days ago. It came back positive today. Patient continues have cough, upper respiratory symptoms and difficulty breathing. She was given 2 duo nebs by EMS in route and placed on supplemental oxygen. Per EMS report patient improvement of wheezing with these treatments. Patient is complain of a headache. Patient is minimally verbal at baseline. No other complaints reported at this time. Paperwork shows that patient is on Eliquis for history of pulmonary emboli. ROS ROS ED Review of Systems ROS Unobtainable: other Details: Review of systems Limited secondary to patient's minimally verbal baseline Constitutional Constitutional ED: Reports chills and fever(s) Respiratory/Chest Respiratory/Chest: Reports cough and dyspnea Gastrointestinal Gastrointestinal: Denies vomiting Neurologic Neurologic: Reports headache(s) Hematologic/Lymphatic Hematologic/Lymphatic: Reports easy bleeding and easy bruising PFSH PFS Medical History Allergic rhinitis Barretts esophagus Fecal impaction GERD (gastroesophageal reflux disease) Hyperlipidemia Hyperlipidemia Insomnia metal gavi rt leg neurostimulater Pacemaker Pulmonary embolism Vitamin D deficiency Home Medications loratadine 10 mg tablet 10 mg PO DAILY@0800 ALLERGIES 09/10/14 [History Last Taken 01/02/22] mirtazapine 7.5 mg tablet 7.5 mg PO QHS@1999 DEPRESSION 05/19/17 [History Last Taken 01/01/22] azelastine 0.05 % eye drops 0.05 drp EACH EYE BID@0800,1999 DRY EYES 08/08/18 [History Last Taken 01/02/22] apixaban 5 mg tablet 5 mg PO BID BLOOD THINNER 11/23/18 [History Last Taken 01/02/22] doxycycline monohydrate 100 mg capsule 100 mg PO BID #20 CAPSULES 02/03/21 [Rx Last Taken Unknown] ipratropium 0.5 mg-albuterol 3 mg (2.5 mg base)/3 mL nebulization soln 3 ml inhalation Q6H PRN shortness of breath or wheezing #90 mL 02/06/21 [Rx Last Taken Unknown] ascorbic acid (vitamin C) 500 mg tablet 500 mg PO DAILY@0800 SUPPLEMENT 01/02/22 [History Last Taken 01/02/22] carboxymethylcellulose sodium 0.5 % eye drops (Refresh Tears) 1 drp EACH EYE TID 01/02/22 [History Last Taken 01/02/22] cholecalciferol (vitamin D3) 25 mcg (1,000 unit) chewable tablet (Vitamin D3) 25 mcg PO DAILY@0800 SUPPLEMENT 01/02/22 [History Last Taken 01/02/22] codeine 10 mg-guaifenesin 100 mg/5 mL oral liquid See Rx Instructions .Route .COMPLEX 01/02/22 [History Last Taken Unknown] docusate sodium 100 mg capsule 100 mg PO Q2D@1600 STOOL 01/02/22 [History Last Taken 01/01/22] ferrous gluconate 324 mg (38 mg iron) tablet 324 mg PO DAILY@0800 SUPPLEMENT 01/02/22 [History Last Taken 01/02/22] fluoxetine 40 mg capsule 40 mg PO DAILY@0800 DEPRESSION 01/02/22 [History Last Taken 01/02/22] levothyroxine 50 mcg tablet 50 mcg PO DAILY@0600 THYROID 01/02/22 [History Last Taken 01/02/22] melatonin 3 mg tablet 4.5 mg PO QHS SLEEP 01/02/22 [History Last Taken 01/01/22] omeprazole 40 mg capsule,delayed release 40 mg PO DAILY@0700 GERD 01/02/22 [History Last Taken 01/02/22] prednisone 10 mg tablet See Rx Instructions .Route .COMPLEX 01/02/22 [History Last Taken Unknown] Allergy/AdvReac Type Severity Reaction Status Date / Time amoxicillin trihydrate AdvReac Unknown Verified 01/02/22 15:57 [From Augmentin] potassium clavulanate AdvReac Unknown Verified 01/02/22 15:57 [From Augmentin] Surgical History Hx of cataract removal with insertion of prosthetic lens Social History Smoking Status: Never smoker substance use type: does not use EXAM Physical Exam Const Vital Signs: 01/02/22 15:58 01/02/22 16:58 01/02/22 16:58 Temperature 97.4 F L 98.6 F 98.6 F Temperature Source Temporal Temporal Oral Pulse Rate 105 H 104 H 104 H Respiratory Rate 28 H 28 H 28 H Respiratory Effort Respiratory Depth Respiratory Pattern Blood Pressure 182/120 H 106/59 L 106/59 L Blood Pressure Mean 140 74 74 Pulse Ox 91 88 96 Oxygen Delivery Method Room Air Room Air Nasal Cannula Oxygen Flow Rate (L/min) 2 01/02/22 16:58 01/02/22 16:58 01/02/22 16:58 Temperature Temperature Source Pulse Rate Respiratory Rate 28 H Respiratory Effort Short of Breath Respiratory Depth Normal Respiratory Pattern Tachypnea Blood Pressure Blood Pressure Mean Pulse Ox 96 96 Oxygen Delivery Method Nasal Cannula Nasal Cannula Nasal Cannula Oxygen Flow Rate (L/min) 2 2 2 01/02/22 18:14 01/02/22 18:14 01/02/22 18:27 Temperature 98.5 F Temperature Source Temporal Pulse Rate 108 H 106 H Respiratory Rate 26 H 32 H Respiratory Effort Respiratory Depth Respiratory Pattern Tachypnea Blood Pressure 113/99 H Blood Pressure Mean 103 Pulse Ox 95 94 Oxygen Delivery Method Nasal Cannula Nasal Cannula Oxygen Flow Rate (L/min) 2 2 01/02/22 19:00 01/02/22 20:00 01/02/22 20:29 Temperature 98.6 F 98.5 F 98.3 F Temperature Source Oral Temporal Temporal Pulse Rate 104 H 92 101 H Respiratory Rate 30 H 24 H 26 H Respiratory Effort Respiratory Depth Respiratory Pattern Blood Pressure 128/79 H 140/119 H 122/97 H Blood Pressure Mean 95 126 105 Pulse Ox 96 95 98 Oxygen Delivery Method Nasal Cannula Nasal Cannula Nasal Cannula Oxygen Flow Rate (L/min) 2 2 2 Positive well nourished and well developed General Appearance ED: well developed and NAD HEENT Reports moist mucous membranes HEENT Narrative: Normal TMs bilaterally normocephalic and atraumatic Throat: posterior oropharynx normal Eyes PERRL and EOMs intact bilaterally Neck supple and no JVD Resp Resp Narrative: Tachypnea. Wet cough. Coarse breath sounds. No significant wheezing appreciated. Cardio Rate: tachycardic Rhythm: regular rhythm GI non-tender and non-distended Back/Spine no CVA tenderness Extremity normal to inspection Extremity Narrative: Contractures of the extremities likely from CP Neuro Neuro Narrative: Slurred/incomprehensible speech. Apparently that is the patient's baseline. No focal neurologic deficits appreciated. Sensorium / Orientation: alert and oriented to person Psych mental status grossly normal Skin Rashes: no rashes MDM MDM MDM Narrative Medical decision making narrative: Patient is evaluated for increased work of breathing. Patient and hypoxic initially hypertensive, tachypneic and tachycardic. She is requiring supplemental oxygen. She does not normally wear oxygen is in a care home. She is in a mild leukocytosis of 13.4 but has known RSV infection. Chest x-ray does not show any acute infiltrate I suspect her symptoms are viral in nature. Patient received 2 DuoNeb's in route and is given a third DuoNeb in the ER. She does have some improvement of her work of breathing with this. She is also given IV Solu-Medrol. Lactate is normal. Given patient's increased oxygen demands, tachypnea and work of breathing I do think she would benefit from admission for further respiratory treatments. Patient's mother is agreeable this plan of care. Patient remains hemodynamically stable in the emergency room. Lab Data Attestation: I reviewed the patient's lab results. Labs: Laboratory Results - last 24 hr 01/02/22 01/02/22 01/02/22 17:15 17:15 18:18 WBC 13.4 H RBC 4.23 Hgb 13.4 Hct 40.2 MCV 95.0 MCH 31.7 MCHC 33.3 RDW Std Deviation 52.1 H RDW Coeff of Handy 14.8 H Plt Count 289 MPV 11.1 Immature Gran % (Auto) 0.800 Neut % (Auto) 73.9 H Lymph % (Auto) 14.3 L Gilmer % (Auto) 10.5 H Eos % (Auto) 0.1 Baso % (Auto) 0.4 Absolute Neuts (auto) 9.9 H Absolute Lymphs (auto) 1.91 Nucleated RBC % 0 Sodium 141 Potassium 3.7 Chloride 107 Carbon Dioxide 30.0 Anion Gap 4 L BUN 13 Creatinine 0.54 L Estim Creat Clear Calc 103.13 Est GFR (MDRD) Af Amer 148 Est GFR (MDRD) Non-Af 123 BUN/Creatinine Ratio 24.1 H Glucose 115 H Lactic Acid 1.8 Calcium 9.5 Radiography Diagnostic Testing: Clinical Impression(s) from Imaging Studies Chest X-Ray 01/02/22 18:20 IMPRESSION: There are no acute findings. Electronically Signed: Nick Choudhury MD at 18:34 EDT , Rhythm Strip Rhythm Strip: Sinus Tach Rate: 104 EKG Initial EKG: Attestation: I personally reviewed and interpreted this EKG as follows: Interpretation: Sinus Tachycardia Comments: Sinus tachycardia rate of 104 Normal axis Normal intervals Nonspecific T wave abnormalities Inversions in inferior leads which are unchanged however there are new T wave versions in V1 through V3, no reciprocal changes appreciated Prior: Changed Discharge Plan Triage Chief Complaint: Shortness of Breath ED Provider: Shazia Fortune Dx/Rx/DC Orders Clinical Impression: RSV bronchitis, Tachycardia, Acute respiratory failure with hypoxia Primary Care Provider: Rocky Barlow Chi Disposition Disposition: Acute Care Hospital
[2022-01-02 18:51] LABS: Lactic Acid 1.8 mmol/L (0.4-1.9)
[2022-01-02] MEDS: Acetaminophen 325 MG Tablet 650 MG PO (19:00)
--- NOTE | 2022-01-02 20:48 | HP.PCM.HOS_ITS ---
HPI - General General Date of Admission: 01/02/22 Date of Service: 01/02/22 Chief Complaint: Shortness of breath HPI Narrative SUNNI GUIDRY, is a 61 F who presents with shortness of breath from her care home. Patient has some underlying lung issue where she does take bronchodilators but the patient's mother denies patient having asthma presents with shortness of breath that began today. Patient resides in a care home and no known sick contacts there. Patient presented here to the emergency room underwent a work-up. Patient was hypoxic at 88% on room air placed on 2 L nasal cannula and her oxygenation improved to 95%. Patient received bronchodilators as well as methylprednisolone 125 mg. Respiratory panel came back positive for RSV [facility] Medical History Allergic rhinitis Barretts esophagus Fecal impaction GERD (gastroesophageal reflux disease) Hyperlipidemia Hyperlipidemia Insomnia metal gavi rt leg neurostimulater Pacemaker Pulmonary embolism Vitamin D deficiency Home Medications loratadine 10 mg tablet 10 mg PO DAILY@0800 ALLERGIES 09/10/14 [History Last Ta rosy 01/02/22] mirtazapine 7.5 mg tablet 7.5 mg PO QHS@1999 DEPRESSION 05/19/17 [History Last Taken 01/01/22] azelastine 0.05 % eye drops 0.05 drp EACH EYE BID@0800,1999 DRY EYES 08/08/18 [History Last Taken 01/02/22] apixaban 5 mg tablet 5 mg PO BID BLOOD THINNER 11/23/18 [History Last Taken 01/02/22] doxycycline monohydrate 100 mg capsule 100 mg PO BID #20 CAPSULES 02/03/21 [Rx Last Taken Unknown] ipratropium 0.5 mg-albuterol 3 mg (2.5 mg base)/3 mL nebulization soln 3 ml inhalation Q6H PRN shortness of breath or wheezing #90 mL 02/06/21 [Rx Last Taken Unknown] ascorbic acid (vitamin C) 500 mg tablet 500 mg PO DAILY@0800 SUPPLEMENT 01/02/22 [History Last Taken 01/02/22] carboxymethylcellulose sodium 0.5 % eye drops (Refresh Tears) 1 drp EACH EYE TID 01/02/22 [History Last Taken 01/02/22] cholecalciferol (vitamin D3) 25 mcg (1,000 unit) chewable tablet (Vitamin D3) 25 mcg PO DAILY@0800 SUPPLEMENT 01/02/22 [History Last Taken 01/02/22] codeine 10 mg-guaifenesin 100 mg/5 mL oral liquid See Rx Instructions .Route .COMPLEX 01/02/22 [History Last Taken Unknown] docusate sodium 100 mg capsule 100 mg PO Q2D@1600 STOOL 01/02/22 [History Last Taken 01/01/22] ferrous gluconate 324 mg (38 mg iron) tablet 324 mg PO DAILY@0800 SUPPLEMENT 01/02/22 [History Last Taken 01/02/22] fluoxetine 40 mg capsule 40 mg PO DAILY@0800 DEPRESSION 01/02/22 [History Last Taken 01/02/22] levothyroxine 50 mcg tablet 50 mcg PO DAILY@0600 THYROID 01/02/22 [History Last Taken 01/02/22] melatonin 3 mg tablet 4.5 mg PO QHS SLEEP 01/02/22 [History Last Taken 01/01/22] omeprazole 40 mg capsule,delayed release 40 mg PO DAILY@0700 GERD 01/02/22 [History Last Taken 01/02/22] prednisone 10 mg tablet See Rx Instructions .Route .COMPLEX 01/02/22 [History Last Taken Unknown] Allergy/AdvReac Type Severity Reaction Status Date / Time amoxicillin trihydrate AdvReac Unknown Verified 01/02/22 15:57 [From Augmentin] potassium clavulanate AdvReac Unknown Verified 01/02/22 15:57 [From Augmentin] Family History unable to obtain unable to obtain Surgical History Hx of cataract removal with insertion of prosthetic lens Social History Smoking Status: Never smoker substance use type: does not use ROS ROS Narrative Unable to obtain from the patient as patient is minimally verbal at baseline Review of Systems ROS Unobtainable: due to mental condition Vital Signs Vital Signs Vital Signs: 01/02/22 15:58 01/02/22 16:58 01/02/22 16:58 Temperature 36.3 C L 37.0 C 37.0 C Temperature Source Temporal Temporal Oral Pulse Rate 105 H 104 H 104 H Respiratory Rate 28 H 28 H 28 H Respiratory Effort Respiratory Depth Respiratory Pattern Blood Pressure 182/120 H 106/59 L 106/59 L Blood Pressure Mean 140 74 74 Pulse Ox 91 88 96 Oxygen Delivery Method Room Air Room Air Nasal Cannula Oxygen Flow Rate (L/min) 2 01/02/22 16:58 01/02/22 16:58 01/02/22 16:58 Temperature Temperature Source Pulse Rate Respiratory Rate 28 H Respiratory Effort Short of Breath Respiratory Depth Normal Respiratory Pattern Tachypnea Blood Pressure Blood Pressure Mean Pulse Ox 96 96 Oxygen Delivery Method Nasal Cannula Nasal Cannula Nasal Cannula Oxygen Flow Rate (L/min) 2 2 2 01/02/22 18:14 01/02/22 18:14 01/02/22 18:27 Temperature 36.9 C Temperature Source Temporal Pulse Rate 108 H 106 H Respiratory Rate 26 H 32 H Respiratory Effort Respiratory Depth Respiratory Pattern Tachypnea Blood Pressure 113/99 H Blood Pressure Mean 103 Pulse Ox 95 94 Oxygen Delivery Method Nasal Cannula Nasal Cannula Oxygen Flow Rate (L/min) 2 2 01/02/22 19:00 01/02/22 20:00 Temperature 37.0 C 36.9 C Temperature Source Oral Temporal Pulse Rate 104 H 92 Respiratory Rate 30 H 24 H Respiratory Effort Respiratory Depth Respiratory Pattern Blood Pressure 128/79 H 140/119 H Blood Pressure Mean 95 126 Pulse Ox 96 95 Oxygen Delivery Method Nasal Cannula Nasal Cannula Oxygen Flow Rate (L/min) 2 2 Weight Weight: 58.967 kg Body Mass Index (BMI) 27.1 Physical Exam Const alert Constitutional Narrative: In bed, awake. No respiratory distress. No conversational dyspnea. Mumbles some words at the mother seems understand but are very simple answers. Speech is very difficult to discern. HEENT normocephalic and head/scalp atraumatic Resp Resp Narrative: Coarse breath sounds bilaterally Cardio regular rate, regular rhythm, S1 normal heart sound and S2 normal heart sound GI normal to inspection, nondistended, normoactive bowel sounds, soft to palpation, non-tender and non-distended Extremity normal to inspection Neuro moves all extremities Sensorium / Orientation: awake and alert Results Lab / Micro Data Attestation: I reviewed the patient's lab results. Result Diagrams: 01/02/22 17:15 01/02/22 17:15 Labs: Laboratory Results - last 24 hr 01/02/22 17:15: WBC 13.4 H, RBC 4.23, Hgb 13.4, Hct 40.2, MCV 95.0, MCH 31.7, MCHC 33.3, RDW Std Deviation 52.1 H, RDW Coeff of Handy 14.8 H, Plt Count 289, MPV 11.1, Immature Gran % (Auto) 0.800, Neut % (Auto) 73.9 H, Lymph % (Auto) 14.3 L, Nuckolls % (Auto) 10.5 H, Eos % (Auto) 0.1, Baso % (Auto) 0.4, Absolute Neuts (auto) 9.9 H, Absolute Lymphs (auto) 1.91, Nucleated RBC % 0 01/02/22 17:15: Sodium 141, Potassium 3.7, Chloride 107, Carbon Dioxide 30.0, Anion Gap 4 L, BUN 13, Creatinine 0.54 L, Estim Creat Clear Calc 103.13, Est GFR (MDRD) Af Amer 148, Est GFR (MDRD) Non-Af 123, BUN/Creatinine Ratio 24.1 H, Glucose 115 H, Calcium 9.5 01/02/22 18:18: Lactic Acid 1.8 Rhythm Strip Rhythm Strip: Sinus Tach Rate: 104 EKG Initial EKG: Attestation: I personally reviewed and interpreted this EKG as follows: Prior EKG tracings: available for review EKG Rhythm Intrepretation: Sinus Tachycardia (Low voltage) Radiology Impression Chest X-Ray 01/02/22 18:20 IMPRESSION: There are no acute findings. Electronically Signed: Nick Choudhury MD at 18:34 EDT Reading Location ID and State: [facility] / NH , Service support , Assessment & Plan Assessment/Plan (1) Acute respiratory failure with hypoxia: PLAN: Secondary to RSV Wean oxygen as able. Check home oxygen evaluation before discharge. (2) RSV bronchitis: PLAN: Supportive management with bronchodilators as well as prednisone. Patient did receive methylprednisolone Patient may have some underlying lung disease which may benefit from seeing a financial specialist as outpatient. Patient does have bronchodilators to be used as needed at her care home. 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 I feel that is reasonable as long as it is okay with nursing. * Iron deficiency anemia: Continue with ferrous sulfate * History of VTE: Continue with apixaban * Hypothyroidism: Continue with levothyroxine * Hiatal hernia/GERD: Continue PPI VTE prophylaxis: Low risk as patient is already anticoagulated. CODE STATUS: Discussed with patient mother. Patient is to be DNR Comfort Care arrest no intubation. Charges/Coding Visit Charges OBSV E&M: 49842 Initial observation care L2
[2022-01-02] MEDS: MELATONIN 3 MG TABLET 4.5 MG PO (22:33)
[2022-01-02] MEDS: Glycerin/Hypromellose/PEG400 15 ml Bottle 1 DRP EACH EYE (22:33)
[2022-01-02] MEDS: APIXABAN 5 MG TABLET PO (22:33)
[2022-01-03] VITALS (14 sets, daily range): BP systolic 101–136; BP diastolic 57–92; PULSE 86–96; RESP 18–22; TEMP 36.2–36.8; O2SAT 93–98
[2022-01-03] MEDS: Ipratropium/Albuterol Sulfate 3 ML AMPUL.NEB INHALATION ×3 (00:44→13:41)
--- NOTE | 2022-01-03 01:45 | NURSING ---
had to place patient back on 2L nasal cannula after repositioning to right side. Had previously been able to wean to room air while patient on back.
[2022-01-03] MEDS: Glycerin/Hypromellose/PEG400 15 ml Bottle 1 DRP EACH EYE ×2 (05:31→14:11)
[2022-01-03] MEDS: Pantoprazole Sodium 40 MG Tablet PO (05:31)
[2022-01-03] MEDS: Menthol/Lanolin/Calamine/Znox 113 GM Tube 1 APPLIC TOPICAL (05:31)
[2022-01-03] MEDS: Levothyroxine 50 MCG Tablet PO (05:31)
[2022-01-03 09:03] LABS: Absolute Lymphocyte Count 1.37 X10^3/uL (0.83-4.51); Absolute Neutrophil Count 7.9 X10^3/uL (2.0-7.7); Basophil# 0.02 X10^3/uL; Basophil% 0.2 % (0-1); Hematocrit 43.1 % (37-47); Hemoglobin 14.5 g/dL (12.0-15.0); Lymphocyte # 1.37 X10^3/ul (0.83-4.51); Lymphocyte % 13.8 % (19-41); Mean Corp Hgb Conc 33.6 g/dL (32-36); Mean Corpuscular Hgb 32.3 pg (27.0-32.0); Mean Platelet Vol. 10.9 fl (6.2-12.0); Monocyte# 0.55 X10^3/uL; Monocyte% 5.5 % (0-10); NRBC Flagged by Analyzer 0 % (0-5); Neutrophil # 7.92 X10^3/uL (2.7-7.7); Neutrophil % 79.9 % (47-70); Platelet Count 277 K/mm3 (150-450); RBC Distribution Width CV 14.5 % (11.6-14.6); RBC Distribution Width SD 51.5 fl (35.1-43.9); Red Blood Count 4.49 M/mm3 (4.2-5.4); White Blood Count 9.9 K/mm3 (4.4-11.0)
[2022-01-03] MEDS: Fluoxetine HCl 40 MG CAPSULE PO (09:05)
[2022-01-03] MEDS: Ascorbic Acid 500 MG Tablet PO (09:06)
[2022-01-03] MEDS: predniSONE 20 MG Tablet 40 MG PO (09:06)
[2022-01-03] MEDS: Loratadine 10 MG Tablet PO (09:06)
[2022-01-03] MEDS: Cholecalciferol (VIT D3) 25 MCG TABLET (1,000 UNITS) PO (09:06)
[2022-01-03] MEDS: APIXABAN 5 MG TABLET PO (09:06)
[2022-01-03] MEDS: Ferrous Gluconate 324 MG Tablet PO (09:06)
[2022-01-03 09:20] LABS: Anion Gap 7 (5-15); BUN 15 mg/dL (7-18); BUN/Creat Ratio 27.4 RATIO (10-20); Calcium,Total 9.6 mg/dL (8.5-10.1); Chloride 108 mmol/L (98-107); Creatinine, Serum 0.55 mg/dL (0.55-1.02); EST Glomerular Filtration Rate 120 mL/min (>60); Est Glom Filt Rate - Afr Amer 146 mL/min (>60); Estimated Creatinine Clearance 78.13 ml/min; Glucose 124 mg/dL (74-106); Potassium 3.8 mmol/L (3.5-5.1); Sodium Level 143 mmol/L (136-145)
--- NOTE | 2022-01-03 10:29 | CASEMGMT ---
Social Work Pt's mother Jess Polanco is pt's Guardian. Guardianship papers are in pt EMR. YAKOV Jarrett
--- NOTE | 2022-01-03 10:37 | CASEMGMT ---
Addendum entered by Ofe Braxton 01/03/22 16:05: Dulce Maria at [place] updated on discharge time and orders faxed. YAKOV Jarrett Addendum entered by Ofe Braxton 01/03/22 16:01: Social Work Per physician, pt is ready for discharge today. Phone call to [facility] [place] and they are able to accept back but are unable to provide transportation today. Transportation arranged with [facility] for 5:45 excelsior picker via cot. Phone call to pt mother/guardian Jess and updated on discharge plan and time. Jess agreeable. Nursing updated. YAKOV Jarrett Addendum entered by Ofe Braxton 01/03/22 11:37: Social Work Return call from [facility]. Dulce Maria states pt can return to the [facility] with home oxygen if warranted. Dulce Maria will need to check with supervisor print line if they are available to transport pt back to [facility]. MARIANNE will update on discharge plan and fax d/c orders when ready. Physician Updated. YAKOV Jarrett Original Note: Social Work Pt is currently living at [facility]. VM left with Dulce Maria ([phone]) [employer] at pt's [facility] to inquire about return and possible need for home O2. SW will await return call. YAKOV Jarrett
--- NOTE | 2022-01-03 11:11 | NURSING ---
Spo2 censor came off pts finger spo2 alarm alerted. Replaced censor and po now 93%. Patient has contractures in fingers. Knocks censor loose with spastic movements.
--- NOTE | 2022-01-03 13:50 | DS.PCM_ITS ---
Providers Date of Admission: 01/02/22 Date of Discharge: 01/03/22 Primary Care Physician: Dr. Rocky Barlow MD Reason For Visit: RESPIRATORY FAILURE Diagnosis Discharge Diagnosis (1) Acute respiratory failure with hypoxia: Status: Acute Code(s): J96.01 - Acute respiratory failure with hypoxia (2) RSV bronchitis: Status: Acute Code(s): J20.5 - Acute bronchitis due to respiratory syncytial virus Medications at Discharge Home Medications loratadine 10 mg tablet 10 mg PO DAILY@0800 ALLERGIES 09/10/14 mirtazapine 7.5 mg tablet 7.5 mg PO QHS@1999 DEPRESSION 05/19/17 azelastine 0.05 % eye drops 0.05 drp EACH EYE BID@08,1999 DRY EYES 08/08/18 apixaban 5 mg tablet 5 mg PO BID BLOOD THINNER 11/23/18 doxycycline monohydrate 100 mg capsule 100 mg PO BID #20 CAPSULES 02/03/21 ipratropium 0.5 mg-albuterol 3 mg (2.5 mg base)/3 mL nebulization soln 3 ml inhalation Q6H PRN shortness of breath or wheezing #90 mL 02/06/21 ascorbic acid (vitamin C) 500 mg tablet 500 mg PO DAILY@0800 SUPPLEMENT 01/02/22 carboxymethylcellulose sodium 0.5 % eye drops (Refresh Tears) 1 drp EACH EYE TID 01/02/22 cholecalciferol (vitamin D3) 25 mcg (1,000 unit) chewable tablet (Vitamin D3) 25 mcg PO DAILY@0800 SUPPLEMENT 01/02/22 codeine 10 mg-guaifenesin 100 mg/5 mL oral liquid See Rx Instructions .Route .COMPLEX 01/02/22 docusate sodium 100 mg capsule 100 mg PO Q2D@1600 STOOL 01/02/22 ferrous gluconate 324 mg (38 mg iron) tablet 324 mg PO DAILY@0800 SUPPLEMENT 01/02/22 fluoxetine 40 mg capsule 40 mg PO DAILY@0800 DEPRESSION 01/02/22 levothyroxine 50 mcg tablet 50 mcg PO DAILY@0600 THYROID 01/02/22 melatonin 3 mg tablet 4.5 mg PO QHS SLEEP 01/02/22 omeprazole 40 mg capsule,delayed release 40 mg PO DAILY@0700 GERD 01/02/22 prednisone 10 mg tablet See Rx Instructions .Route .COMPLEX 01/02/22 Hospital Course Operations None Procedures None Summary of Care Provided Minutes Spent on Discharge: 22 Hospital Course: Ms. Fletcher is a 61-year-old white female who presented from her custodial with shortness of breath. Patient does have some underlying lung disease where she takes daily bronchodilators but her mother denies her having any known asthma. She began having shortness of breath on the day of presentation. Patient resides in a custodial at baseline and has no known sick contacts and presented to the emergency department underwent work-up. The patient was hypoxic at 88% on room air and was at that point placed on 2 L nasal cannula. This improved her oxygen to 895%. She received bronchodilators and methylprednisolone 125 mg x 1 dose the emergency department and a respiratory panel resulted positive for RSV. She was noted to be mildly tachycardic on presentation as well. She had been on doxycycline and a steroid taper at home prior to presentation. Her labs were overall unremarkable. Her lactic acid was normal. EKG showed sinus tachycardia with low voltage. Her chest x-ray was unremarkable. Upon admission she was given supportive care with ongoing bronchodilators and steroids. She improved rather quickly with reduction in oxygen requirement to room air on 01/03/2022. We monitor for an extended period of time on room air and did significant amount of care in bed as she previously was having desaturations with mobility in bed. This had since resolved and we were able to discharge her back to her custodial on 01/03/2022 with no supplemental oxygen. She is to continue her prednisone as well as her bronchodilators. Oxygen saturations at the time of discharge were 93 to 96% on room air at rest and with bed mobility. Discharge diagnoses: Hypoxia-resolved Acute RSV viral infection Tachycardia-resolved Arias's esophagus History of fecal impaction GERD Hyperlipidemia History of pulmonary embolism MRDD Iron deficiency anemia Hypothyroidism History of vitamin D deficiency Physical Exam Const alert and well nourished Constitutional Narrative: Older white female sitting up in bed with mother at bedside helping her drink, patient with MRDD at baseline but does follow commands, nontoxic-appearing, very pleasant, nursing at bedside General Appearance: cooperative and comfortable Orientation / Consciousness: awake Exam Limitations: other limitations HEENT normocephalic and head/scalp atraumatic HEENT Narrative: His membranes are moist, dentition is poor, no thrush, Mallampati 1 Resp normal respiratory effort, no retractions and no use of accessory muscles Resp Narrative: Scattered end expiratory wheezes, no tachypnea Auscultation: wheezes; Negative for crackles or rhonchi Cardio regular rate, regular rhythm, S1 normal heart sound, S2 normal heart sound, no murmurs, no rub, no gallops and no clicks GI normal to inspection, nondistended, normoactive bowel sounds, soft to palpation and non-tender Extremity no clubbing, cyanosis or edema Extremity Narrative: 2+ pedal pulses Neuro moves all extremities Neuro Narrative: Chronic contractures noted upper and lower extremities, patient is fairly nonverbal at baseline Psych Psych Narrative: Seems pleasant and comfortable Weight / BMI Weight Weight: 54 kg Body Mass Index (BMI) 23.2 ABG / Lab / Microbiology Data Result Diagrams: 01/03/22 08:36 01/03/22 08:36 Laboratory: Laboratory Results - last 24 hr 01/02/22 17:15: WBC 13.4 H, RBC 4.23, Hgb 13.4, Hct 40.2, MCV 95.0, MCH 31.7, MCHC 33.3, RDW Std Deviation 52.1 H, RDW Coeff of Handy 14.8 H, Plt Count 289, MPV 11.1, Immature Gran % (Auto) 0.800, Neut % (Auto) 73.9 H, Lymph % (Auto) 14.3 L, Bond % (Auto) 10.5 H, Eos % (Auto) 0.1, Baso % (Auto) 0.4, Absolute Neuts (auto) 9.9 H, Absolute Lymphs (auto) 1.91, Nucleated RBC % 0 01/02/22 17:15: Sodium 141, Potassium 3.7, Chloride 107, Carbon Dioxide 30.0, Anion Gap 4 L, BUN 13, Creatinine 0.54 L, Estim Creat Clear Calc 103.13, Est GFR (MDRD) Af Amer 148, Est GFR (MDRD) Non-Af 123, BUN/Creatinine Ratio 24.1 H, Glucose 115 H, Calcium 9.5 01/02/22 18:18: Lactic Acid 1.8 01/03/22 08:36: WBC 9.9, RBC 4.49, Hgb 14.5, Hct 43.1, MCV 96.0, MCH 32.3 H, MCHC 33.6, RDW Std Deviation 51.5 H, RDW Coeff of Handy 14.5, Plt Count 277, MPV 10.9, Immature Gran % (Auto) 0.600, Neut % (Auto) 79.9 H, Lymph % (Auto) 13.8 L, Bond % (Auto) 5.5, Eos % (Auto) 0.0, Baso % (Auto) 0.2, Absolute Neuts (auto) 7.9 H, Absolute Lymphs (auto) 1.37, Nucleated RBC % 0 01/03/22 08:36: Sodium 143, Potassium 3.8, Chloride 108 H, Carbon Dioxide 28.0, Anion Gap 7, BUN 15, Creatinine 0.55, Estim Creat Clear Calc 78.13, Est GFR ( RD) Af Amer 146, Est GFR (MDRD) Non-Af 120, BUN/Creatinine Ratio 27.4 H, Glucose 124 H, Calcium 9.6 Radiography Diagnostic Testing: Radiology Impression Chest X-Ray 01/02/22 18:20 IMPRESSION: There are no acute findings. Electronically Signed: Nick Choudhury MD at 18:34 EDT Reading Location ID and State: [address] [place] [address] , Service support , D/C Instructions Discharge Diet: No restrictions Discharge Activity: Return to Normal Activity Meaningful Use Info Meaningful Use Diagnoses (Choose all that apply): None applicable Discharge Plan Admission Admit Date/Time: 01/02/22 20:38 Primary Reason for Your Visit: Hypoxia secondary to RSV infection Attending Provider: Jeni Ann Primary Care Provider: Rocky Barlow Chi Consulting Providers: Maximiliano Ortiz Discharge Orders/Prescriptions Prescriptions: Continued loratadine 10 MG tablet 10 mg PO DAILY@0800 mirtazapine 7.5 MG tablet 7.5 mg PO QHS@1999 azelastine 6 ML drops 0.05 drp EACH EYE BID@799,1999 Label Comments: PLACE (1) DROP INTO EACH EYE TWICE DAILY NEEDEDFOR DRY EYE apixaban 5 MG tablet 5 mg PO BID doxycycline monohydrate 100 MG capsule 100 mg PO BID Qty: 20 0RF ipratropium-albuterol 0.5 mg-3 mg(2.5 mg base)/3 mL solution for nebulization 3 ml inhalation Q6H PRN (Reason: shortness of breath or wheezing) Qty: 90 0RF fluoxetine 40 mg capsule 40 mg PO DAILY@0800 melatonin 3 mg Tablet 4.5 mg PO QHS omeprazole 40 mg Capsule,Delayed Release(Dr/Ec) 40 mg PO DAILY@0700 levothyroxine 50 mcg tablet 50 mcg PO DAILY@0600 docusate sodium 100 mg Capsule 100 mg PO Q2D@1600 cholecalciferol (vitamin D3) [Vitamin D3] 25 mcg (1,000 unit) Tablet,Chewable 25 mcg PO DAILY@0800 ascorbic acid (vitamin C) 500 MG tablet 500 mg PO DAILY@0800 ferrous gluconate 324 MG tablet 324 mg PO DAILY@0800 prednisone 10 mg tablet See Rx Instructions .ROUTE .COMPLEX Rx Instructions: TAKE 3 TABLETS BY MOUTH ONCE DAILY FOR 2 DAYS THEN TAKE 2 TABLETS BY MOUTH ONCE DAILY FOR 2 DAYS THEN TAKE 1 TABLET BY MOUTH ONCE DAILY FOR 2 DAYS carboxymethylcellulose sodium [Refresh Tears] 0.5 % Drops 1 drp EACH EYE TID codeine-guaifenesin 10-100 mg/5 mL liquid See Rx Instructions .ROUTE .COMPLEX Rx Instructions: TAKE 5 MLS BY MOUTH 6 TIMES A DAY NEEDED FOR COUGH Referrals / Follow Up: Rocky Barlow Chi, MD [Primary Care Provider] - Within 1 Week Disposition Disposition (needs filled in before D/C Order can be placed): Home, Self Care Charges/Coding Visit Charges OBSV E&M: 63255 Observation care discharge
--- NOTE | 2022-01-03 14:21 | CASEMGMT ---
Pt does not qualify for home oxygen.
[2022-01-03] MEDS: Docusate Sodium 100 MG Capsule PO (16:16)
[2022-01-03] MEDS: Albuterol 2.5 MG/3 ML VIAL.NEB. INHALATION (16:37)
--- NOTE | 2022-01-03 19:35 | CM.ED ---
MARIANNE received call from Dulce Maria at [place]. She said that patient came home and has no nebulizer. Dulce Maria said that patient needs nebulizer or she will be back in the ED. Patient's PCP is [facility] and he has no s iron worker and if the prescription was refilled it would go to [place] [facility] that closed at 6pm. Dulce Maria's phone number is [phone]. MARIANNE spoke to JANA Winters on [facility]. She indicated that they are trying to get in touch with MD Ann or MD Tania huynh and send the script to pharmacy [facility]. MARIANNE called Dulce Maria and advised that [facility] RN is working on script for patient and the plan is for when they get MD to sign off on script they will send it to [facility]. Justine CALLE
== END 2022-01-03 17:55 | disposition home or self-care (01) ==
LOC: ED 20:31 → MS3 20:52
PROVIDERS: Emergency Provider Emergency Medicine; PCP Family Medicine Geriatric Medicine; Visit Provider Internal Medicine
DX: J20.5 Acute bronchitis due to respiratory syncytial virus (principal); J96.01 Acute respiratory failure with hypoxia; E78.5 Hyperlipidemia, unspecified; D50.9 Iron deficiency anemia, unspecified; K21.9 Gastro-esophageal reflux disease without esophagitis; Z79.52 Long term (current) use of systemic steroids; Z79.01 Long term (current) use of anticoagulants; I10 Essential (primary) hypertension; E55.9 Vitamin D deficiency, unspecified; Z86.711 Personal history of pulmonary embolism; Z79.899 Other long term (current) drug therapy; Z95.0 Presence of cardiac pacemaker; F79 Unspecified intellectual disabilities; E03.9 Hypothyroidism, unspecified; Z79.890 Hormone replacement therapy; K44.9 Diaphragmatic hernia without obstruction or gangrene
CPT/HCPCS: 36415; 71045; 80048; 83605; 85025; 93005; 94640; 94760; 96374; 99218; 99251; 99285; A4216; G0378; G0463

== ENCOUNTER 2022-03-21 17:39 | Emergency (ER) | payer MEDICARE, MEDICAID, SELFPAY ==
[2022-03-21 17:42] VITALS: BP 125/114; PULSE 97; RESP 18; TEMP 36.8; O2SAT 98; BMI 24.5
[2022-03-21 17:46] VITALS: BP 125/114; PULSE 97; RESP 18; TEMP 36.8; O2SAT 98
--- NOTE | 2022-03-21 18:45 | RAD_ITS ---
STUDY: X-RAY CHEST REASON FOR EXAM: Female, 61 years old. Cough. Shortness of breath beginning last night with a red throat and wheezing. TECHNIQUE: Single AP portable view of the chest. COMPARISON: January 02, 2022. FINDINGS: The lungs are clear and expanded. There is no demonstrated pleural abnormality. Normal size heart. Normal mediastinum and shanell. Normal visualized pulmonary arteries. There is atherosclerotic calcification of the aortic arch with tortuosity. No visualized osseous changes. There is no demonstrated abnormality of the visualized soft tissue structures of the upper abdomen. RAD/Chest 1 View (Portable) IMPRESSION: No acute cardiopulmonary disease or major interval change. Electronically Signed: Ascencion Mora DO at 19:27 EST ,
[2022-03-21 18:53] LABS: Absolute Lymphocyte Count 2.24 X10^3/uL (0.83-4.51); Absolute Neutrophil Count 8.8 X10^3/uL (2.0-7.7); Basophil# 0.06 X10^3/uL; Basophil% 0.5 % (0-1); Eosinophil# 0.31 X10^3/uL; Eosinophils% 2.5 % (0-5); Hematocrit 43.7 % (37-47); Hemoglobin 14.1 g/dL (12.0-15.0); Lymphocyte # 2.24 X10^3/ul (0.83-4.51); Lymphocyte % 17.9 % (19-41); Mean Corp Hgb Conc 32.3 g/dL (32-36); Mean Corpuscular Hgb 31.2 pg (27.0-32.0); Mean Corpuscular Volume 96.7 fL (81-99); Mean Platelet Vol. 10.6 fl (6.2-12.0); Monocyte# 1.04 X10^3/uL; Monocyte% 8.3 % (0-10); NRBC Flagged by Analyzer 0 % (0-5); Neutrophil # 8.82 X10^3/uL (2.7-7.7); Neutrophil % 70.5 % (47-70); Platelet Count 278 K/mm3 (150-450); RBC Distribution Width CV 13.7 % (11.6-14.6); RBC Distribution Width SD 49.3 fl (35.1-43.9); Red Blood Count 4.52 M/mm3 (4.2-5.4); White Blood Count 12.5 K/mm3 (4.4-11.0)
--- NOTE | 2022-03-21 18:53 | EX.ED.DYSGE1 ---
HPI History of Present Illness Chief Complaint: Shortness of Breath Narrative Narrative: Patient has cerebral palsy, she is nonverbal and I cannot get information from her. I am talking to her caregiver at her halfway. Apparently today she was visited by the nurse, she saw some pharyngeal erythema and thought the patient was wheezing and then she received a a nebulized treatment. She is in the halfway and they want to make sure there is no infectious etiologies that are serious. Patient is asymptomatic when I talked to the actual caregiver who knows her. [facility] Medical History Allergic rhinitis Barretts esophagus Fecal impaction Gastroenteritis GERD (gastroesophageal reflux disease) Hyperlipidemia Hyperlipidemia Insomnia metal gavi rt leg neurostimulater Pacemaker Pulmonary embolism URI (upper respiratory infection) Vitamin D deficiency Home Medications loratadine 10 mg tablet 10 mg PO DAILY@0800 ALLERGIES 09/10/14 [History Last Taken 01/02/22] mirtazapine 7.5 mg tablet 7.5 mg PO QHS@1999 DEPRESSION 05/19/17 [History Last Taken 01/01/22] azelastine 0.05 % eye drops 0.05 drp EACH EYE BID@0800,1999 DRY EYES 08/08/18 [History Last Taken 01/02/22] apixaban 5 mg tablet 5 mg PO BID BLOOD THINNER 11/23/18 [History Last Taken 01/02/22] doxycycline monohydrate 100 mg capsule 100 mg PO BID #20 CAPSULES 02/03/21 [Rx Last Taken Unknown] ascorbic acid (vitamin C) 500 mg tablet 500 mg PO DAILY@0800 SUPPLEMENT 01/02/22 [History Last Taken 01/02/22] carboxymethylcellulose sodium 0.5 % eye drops (Refresh Tears) 1 drp EACH EYE TID 01/02/22 [History Last Taken 01/02/22] cholecalciferol (vitamin D3) 25 mcg (1,000 unit) chewable tablet (Vitamin D3) 25 mcg PO DAILY@0800 SUPPLEMENT 01/02/22 [History Last Taken 01/02/22] codeine 10 mg-guaifenesin 100 mg/5 mL oral liquid See Rx Instructions .Route .COMPLEX 01/02/22 [History Last Taken Unknown] docusate sodium 100 mg capsule 100 mg PO Q2D@1600 STOOL 01/02/22 [History Last Taken 01/01/22] ferrous gluconate 324 mg (38 mg iron) tablet 324 mg PO DAILY@0800 SUPPLEMENT 01/02/22 [History Last Taken 01/02/22] fluoxetine 40 mg capsule 40 mg PO DAILY@0800 DEPRESSION 01/02/22 [History Last Taken 01/02/22] levothyroxine 50 mcg tablet 50 mcg PO DAILY@0600 THYROID 01/02/22 [History Last Taken 01/02/22] melatonin 3 mg tablet 4.5 mg PO QHS SLEEP 01/02/22 [History Last Taken 01/01/22] omeprazole 40 mg capsule,delayed release 40 mg PO DAILY@0700 GERD 01/02/22 [History Last Taken 01/02/22] prednisone 10 mg tablet See Rx Instructions .Route .COMPLEX 01/02/22 [History Last Taken Unknown] ipratropium 0.5 mg-albuterol 3 mg (2.5 mg base)/3 mL nebulization soln 3 ml inhalation Q6H PRN shortness of breath or wheezing #90 mL 01/03/22 [Rx Last Taken Unknown] Allergy/AdvReac Type Severity Reaction Status Date / Time amoxicillin trihydrate AdvReac Unknown Verified 01/02/22 15:57 [From Augmentin] potassium clavulanate AdvReac Unknown Verified 01/02/22 15:57 [From Augmentin] Surgical History Hx of cataract removal with insertion of prosthetic lens Social History Smoking Status: Never smoker substance use type: does not use ROS ROS ED Review of Systems ROS Unobtainable: due to mental condition and due to mental status EXAM Physical Exam Narrative Exam Narrative: Physical exam General: She does not appear in any distress. She has CP features. She is nonverbal. Head: Normocephalic, Atraumatic Eyes: Conjunctiva not pale ENT: Moist mucous membranes, poor dentition. Posterior oropharynx has some postnasal drip but has no pharyngeal erythema or exudates. Neck: Supple, Nontender, No lymphadenopathy Cardiovascular: Regular rate, Regular rhythm Respiratory: No distress, CTA bilaterally Abdomen: Soft, Nontender, Nondistended Back: Nontender, Normal Inspection. Negative for: CVA tenderness Extremities: Nontender, No edema Skin: Normal color, No rash Neurological: Alert, no focal deficit, some chronic contractures. Const Vital Signs: 03/21/22 17:42 03/21/22 17:46 03/21/22 18:59 Temperature 98.3 F 98.3 F Temperature Source Oral Temporal Pulse Rate 97 97 97 Respiratory Rate 18 18 18 Blood Pressure 125/114 H 125/114 H 130/70 H Blood Pressure Mean 117 117 90 Pulse Ox 98 98 98 Oxygen Delivery Method Room Air Room Air Room Air MDM MDM MDM Narrative Medical decision making narrative: Patient was seen by me in the emergency department. She appears well. She has a normal work-up and I believe she can be safely discharged home. A. Problems addressed ( does not have to be diagnoses) Patient has cough congestion, I did have to do more work-up on her since she is nonverbal and I cannot get a history of present illness. Initially her blood pressure was elevated but however the pulse pressure was quite narrow therefore a manual blood pressure was normal. B. Amount and/or complexity of the data (2 out of 3) 1. Any 3 I reviewed her paperwork with her prior medical problems and medications as well as care plan from the halfway Blood work including CBC and CMP as well as COVID and influenza were unremarkable I discussed the patient with her caregiver who was in the room 2. Independent interpretation of test Patient was placed on a monitor with heart rate in the 90s without any ectopy C. Risk of complications and/or morbidity Differential diagnosis: I was worried about a pneumonia especially that she has have a history of aspiration however the chest x-ray does not show it. She has no further wheezing or any other symptoms. With her symptoms I was also worried about COVID or influenza however these tests were negative. I did think about antibiotics however the patient does not have an obvious pneumonia and she likely has a viral upper respiratory infection. If anything changes I talked to the caregiver for her to return. Patient has the following social determinants of health and it impacts their health care: She lives in a halfway, she has reasonable care however she can be exposed to multiple infections from the other residents. Lab Data Labs: Laboratory Results - last 24 hr 03/21/22 03/21/22 18:46 18:46 WBC 12.5 H RBC 4.52 Hgb 14.1 Hct 43.7 MCV 96.7 MCH 31.2 MCHC 32.3 RDW Std Deviation 49.3 H RDW Coeff of Handy 13.7 Plt Count 278 MPV 10.6 Immature Gran % (Auto) 0.300 Neut % (Auto) 70.5 H Lymph % (Auto) 17.9 L Webb % (Auto) 8.3 Eos % (Auto) 2.5 Baso % (Auto) 0.5 Absolute Neuts (auto) 8.8 H Absolute Lymphs (auto) 2.24 Nucleated RBC % 0 Sodium 142 Potassium 3.7 Chloride 107 Carbon Dioxide 31.0 Anion Gap 4 L BUN 8 Creatinine 0.55 Estim Creat Clear Calc 82.08 Est GFR (MDRD) Af Amer 143 Est GFR (MDRD) Non-Af 119 BUN/Creatinine Ratio 14.4 Glucose 118 H Calcium 9.4 Total Bilirubin 0.30 AST 10 L ALT 15 Alkaline Phosphatase 109 Total Protein 7.9 Albumin 3.7 Globulin 4.2 Albumin/Globulin Ratio 0.9 Radiography Diagnostic Testing: Clinical Impression(s) from Imaging Studies Chest X-Ray 03/21/22 18:45 IMPRESSION: No acute cardiopulmonary disease or major interval change. Electronically Signed: Ascencion Mora DO at 19:27 EST Reading Location ID and State: [address] [place] [address] Tel [phone], Service support , Chest x-ray read by me and radiologist is unremarkable Discharge Plan Triage Chief Complaint: Shortness of Breath ED Provider: Miguel A Palomino Dx/Rx/DC Orders Clinical Impression: Cerebral palsy, Diffuse wheezing, Acute upper respiratory infection Instructions: ED URI, Viral W/ Wheezing (Adult) Prescriptions: No Action loratadine 10 MG tablet 10 mg PO DAILY@0800 mirtazapine 7.5 MG tablet 7.5 mg PO QHS@1999 azelastine 6 ML drops 0.05 drp EACH EYE BID@08,1999 Label Comments: PLACE (1) DROP INTO EACH EYE TWICE DAILY NEEDEDFOR DRY EYE apixaban 5 MG tablet 5 mg PO BID doxycycline monohydrate 100 MG capsule 100 mg PO BID Qty: 20 0RF fluoxetine 40 mg capsule 40 mg PO DAILY@0800 melatonin 3 mg Tablet 4.5 mg PO QHS omeprazole 40 mg Capsule,Delayed Release(Dr/Ec) 40 mg PO DAILY@0700 levothyroxine 50 mcg tablet 50 mcg PO DAILY@0600 docusate sodium 100 mg Capsule 100 mg PO Q2D@1600 cholecalciferol (vitamin D3) [Vitamin D3] 25 mcg (1,000 unit) Tablet,Chewable 25 mcg PO DAILY@0800 ascorbic acid (vitamin C) 500 MG tablet 500 mg PO DAILY@0800 ferrous gluconate 324 MG tablet 324 mg PO DAILY@0800 prednisone 10 mg tablet See Rx Instructions .ROUTE .COMPLEX Rx Instructions: TAKE 3 TABLETS BY MOUTH ONCE DAILY FOR 2 DAYS THEN TAKE 2 TABLETS BY MOUTH ONCE DAILY FOR 2 DAYS THEN TAKE 1 TABLET BY MOUTH ONCE DAILY FOR 2 DAYS carboxymethylcellulose sodium [Refresh Tears] 0.5 % Drops 1 drp EACH EYE TID codeine-guaifenesin 10-100 mg/5 mL liquid See Rx Instructions .ROUTE .COMPLEX Rx Instructions: TAKE 5 MLS BY MOUTH 6 TIMES A DAY NEEDED FOR COUGH ipratropium-albuterol 0.5 mg-3 mg(2.5 mg base)/3 mL solution for nebulization 3 ml inhalation Q6H PRN (Reason: shortness of breath or wheezing) Qty: 90 0RF Primary Care Provider: Rocky Barlow Chi Referrals: Rocky Barlow Chi, MD [Primary Care Provider] - 3-5 Days Disposition Disposition: Home, Self Care
[2022-03-21 18:59] VITALS: BP 130/70; PULSE 97; RESP 18; O2SAT 98
[2022-03-21 19:13] LABS: ALB/GLOB Ratio 0.9 RATIO (0.9-2.4); AST(SGOT) 10 U/L (15-37); Alanine Aminotransfer ALT/SGPT 15 U/L (13-56); Albumin, Serum 3.7 g/dL (3.2-5.0); Alkaline Phosphatase 109 U/L (45-117); Anion Gap 4 (5-15); BUN 8 mg/dL (7-18); BUN/Creat Ratio 14.4 RATIO (10-20); Calcium,Total 9.4 mg/dL (8.5-10.1); Chloride 107 mmol/L (98-107); Creatinine, Serum 0.55 mg/dL (0.55-1.02); EST Glomerular Filtration Rate 119 mL/min (>60); Est Glom Filt Rate - Afr Amer 143 mL/min (>60); Estimated Creatinine Clearance 82.08 ml/min; Globulin 4.2 g/dL (2.2-4.2); Glucose 118 mg/dL (74-106); Potassium 3.7 mmol/L (3.5-5.1); Protein, Total 7.9 g/dL (6.4-8.2); Sodium Level 142 mmol/L (136-145)
== END 2022-03-21 20:53 | disposition home or self-care (01) ==
PROVIDERS: Emergency Provider Emergency Medicine; PCP Family Medicine Geriatric Medicine; Visit Provider Emergency Medicine
DX: J06.9 Acute upper respiratory infection, unspecified (principal); G80.9 Cerebral palsy, unspecified; E78.5 Hyperlipidemia, unspecified; R06.2 Wheezing; R06.02 Shortness of breath
CPT/HCPCS: 71045; 80053; 85025; 87428; 99283; A4216

== ENCOUNTER → 2022-03-29 | Outpatient (CLI) | payer MEDICARE, MEDICAID, SELFPAY | END | disposition home or self-care (01) | PROVIDERS: PCP Family Medicine Geriatric Medicine; Visit Provider Family Medicine Geriatric Medicine | DX: R68.83 Chills (without fever) (principal); Z20.822 Contact with and (suspected) exposure to COVID-19 | CPT/HCPCS: 87635; 87804; 87807; U0003; U0005 ==

== ENCOUNTER → 2022-05-30 | Outpatient (CLI) | payer MEDICARE, MEDICAID, SELFPAY ==
[2022-05-30 16:58] LABS: Absolute Neutrophil Count 3.6 X10^3/uL (2.0-7.7); Basophil# 0.06 X10^3/uL; Basophil% 0.8 % (0-1); Eosinophil# 0.48 X10^3/uL; Eosinophils% 6.3 % (0-5); Hematocrit 43.4 % (37-47); Hemoglobin 14.1 g/dL (12.0-15.0); Lymphocyte % 39.3 % (19-41); Mean Corp Hgb Conc 32.5 g/dL (32-36); Mean Corpuscular Hgb 31.2 pg (27.0-32.0); Monocyte# 0.47 X10^3/uL; Monocyte% 6.2 % (0-10); NRBC Flagged by Analyzer 0 % (0-5); Neutrophil # 3.61 X10^3/uL (2.7-7.7); Neutrophil % 47.3 % (47-70); Platelet Count 311 K/mm3 (150-450); RBC Distribution Width CV 13.8 % (11.6-14.6); RBC Distribution Width SD 49.1 fl (35.1-43.9); Red Blood Count 4.52 M/mm3 (4.2-5.4); White Blood Count 7.6 K/mm3 (4.4-11.0)
[2022-05-30 18:48] LABS: Vitamin D,25 Hydroxy 48.5 ng/mL
[2022-05-30 19:08] LABS: AST(SGOT) 20 U/L (15-37); Alanine Aminotransfer ALT/SGPT 20 U/L (13-56); Albumin, Serum 3.7 g/dL (3.2-5.0); Alkaline Phosphatase 100 U/L (45-117); Anion Gap 9 (5-15); BUN 7 mg/dL (7-18); BUN/Creat Ratio 12.8 RATIO (10-20); Calcium,Total 9.2 mg/dL (8.5-10.1); Chloride 105 mmol/L (98-107); Cholesterol 219 mg/dL (200); Creatinine, Serum 0.55 mg/dL (0.55-1.02); EST Glomerular Filtration Rate 120 mL/min (>60); Est Glom Filt Rate - Afr Amer 145 mL/min (>60); Globulin 3.8 g/dL (2.2-4.2); Glucose 87 mg/dL (74-106); High Density Lipoprotein 73 mg/dL; Potassium 3.8 mmol/L (3.5-5.1); Protein, Total 7.5 g/dL (6.4-8.2); Sodium Level 140 mmol/L (136-145); Thyroid Stim Hormone (TSH) 1.39 uIU/mL (0.358-3.74); Triglycerides 66 mg/dL; Very Low Density Lipoprotein 13 mg/dL (5-40)
== END | disposition home or self-care (01) ==
LOC: POLAB3 15:42
PROVIDERS: PCP Family Medicine Geriatric Medicine; Visit Provider Family Medicine Geriatric Medicine
DX: R53.83 Other fatigue (principal); E78.5 Hyperlipidemia, unspecified; E55.9 Vitamin D deficiency, unspecified
CPT/HCPCS: 36415; 80053; 80061; 82306; 84443; 85025

== ENCOUNTER 2022-07-26 17:49 | Emergency (ER) | payer MEDICARE, MEDICAID, SELFPAY ==
[2022-07-26 17:49] VITALS: BP 140/99; PULSE 74; RESP 16; TEMP 36.8; O2SAT 96
--- NOTE | 2022-07-26 18:16 | CT_ITS ---
INDICATION: Wheelchair fell over yesterday hitting the patient''s left ribs. History of cerebral palsy. EXAMINATION: CT CHEST WITHOUT CONTRAST - CT Chest W/O Contrast Injection TECHNIQUE: Helically acquired images were obtained of the chest. A radiation dose optimization technique was used for this scan. IV Contrast dosage and agent: None. COMPARISON: CTA of the chest, September 21, 2018 FINDINGS: LUNGS, PLEURA AND LARGE AIRWAYS: No masses, consolidation, or edema. No pleural effusion or thickening. No pneumothorax. THYROID: No thyroid lesions. HEART AND PERICARDIUM: Heart size is normal. No pericardial effusion. CORONARY ARTERIES: Coronary artery calcification VESSELS: Thoracic aorta is not dilated. MEDIASTINUM AND CANDIS: No mediastinal or hilar adenopathy. Mildly dilated esophagus retrocardiac hiatal hernia. UPPER ABDOMEN: The upper abdomen is otherwise unremarkable. BONES: No suspicious lytic or blastic abnormality. There is a generator in the soft tissues left chest with electrodes extending up more towards the neck. CT/Chest without Contrast IMPRESSION: 1. Hiatal hernia. 2. No acute cardiopulmonary disease or major interval change. Electronically Signed: Ascencion Mora DO at 19:20 EDT ,
--- NOTE | 2022-07-26 18:24 | EX.ED.GENINJ ---
HPI History of Present Illness Chief Complaint: Fall Detail of Chief Complaint: Left rib injury Informant: parent Narrative Narrative: Patient brought in by her mother today after a fall yesterday. She apparently lives in a fci. When the staff members was taking her to her apartment when her wheelchair ran off the edge of the sidewalk and fell onto the side. A tray that was across the wheelchair hit her in the left ribs. She was still complaining of pain in the left ribs today so her mother brought her in for evaluation. It is noted the patient is on Eliquis and it appears that it was last filled [address] [facility] Medical History Allergic rhinitis Barretts esophagus Cerebral palsy Depression Fecal impaction Gastroenteritis GERD (gastroesophageal reflux disease) Hyperlipidemia Hypothyroidism Insomnia metal gavi rt leg neurostimulater Pacemaker Pulmonary embolism URI (upper respiratory infection) Vitamin D deficiency Home Medications loratadine 10 mg tablet 10 mg PO DAILY@0800 ALLERGIES 09/10/14 [History Last Taken 01/02/22] mirtazapine 7.5 mg tablet 7.5 mg PO QHS@1999 DEPRESSION 05/19/17 [History Last Taken 01/01/22] azelastine 0.05 % eye drops 0.05 drp EACH EYE BID@08,1999 DRY EYES 08/08/18 [History Last Taken 01/02/22] apixaban 5 mg tablet 5 mg PO BID BLOOD THINNER 11/23/18 [History Last Taken 01/02/22] doxycycline monohydrate 100 mg capsule 100 mg PO BID #20 CAPSULES 02/03/21 [Rx Last Taken Unknown] ascorbic acid (vitamin C) 500 mg tablet 500 mg PO DAILY@0800 SUPPLEMENT 01/02/22 [History Last Taken 01/02/22] carboxymethylcellulose sodium 0.5 % eye drops (Refresh Tears) 1 drp EACH EYE TID 01/02/22 [History Last Taken 01/02/22] cholecalciferol (vitamin D3) 25 mcg (1,000 unit) chewable tablet (Vitamin D3) 25 mcg PO DAILY@0800 SUPPLEMENT 01/02/22 [History Last Taken 01/02/22] codeine 10 mg-guaifenesin 100 mg/5 mL oral liquid See Rx Instructions .Route .COMPLEX 01/02/22 [History Last Taken Unknown] docusate sodium 100 mg capsule 100 mg PO Q2D@1600 STOOL 01/02/22 [History Last Taken 01/01/22] ferrous gluconate 324 mg (38 mg iron) tablet 324 mg PO DAILY@0800 SUPPLEMENT 01/02/22 [History Last Taken 01/02/22] fluoxetine 40 mg capsule 40 mg PO DAILY@0800 DEPRESSION 01/02/22 [History Last Taken 01/02/22] levothyroxine 50 mcg tablet 50 mcg PO DAILY@0600 THYROID 01/02/22 [History Last Taken 01/02/22] melatonin 3 mg tablet 4.5 mg PO QHS SLEEP 01/02/22 [History Last Taken 01/01/22] omeprazole 40 mg capsule,delayed release 40 mg PO DAILY@0700 GERD 01/02/22 [History Last Taken 01/02/22] prednisone 10 mg tablet See Rx Instructions .Route .COMPLEX 01/02/22 [History Last Taken Unknown] ipratropium 0.5 mg-albuterol 3 mg (2.5 mg base)/3 mL nebulization soln 3 ml inhalation Q6H PRN shortness of breath or wheezing #90 mL 01/03/22 [Rx Last Taken Unknown] Allergy/AdvReac Type Severity Reaction Status Date / Time amoxicillin trihydrate AdvReac Unknown Verified 07/26/22 17:51 [From Augmentin] potassium clavulanate AdvReac Unknown Verified 07/26/22 17:51 [From Augmentin] Surgical History Hx of cataract removal with insertion of prosthetic lens Social History Smoking Status: Never smoker substance use type: does not use ROS ROS ED Review of Systems ROS Unobtainable: other Details: Unobtainable secondary to history of cerebral palsy. EXAM Physical Exam Const Vital Signs: 07/26/22 17:49 07/26/22 18:47 Temperature 98.2 F Temperature Source Temporal Pulse Rate 74 Respiratory Rate 16 Respiratory Effort Normal Non-Labored Respiratory Depth Normal Respiratory Pattern Normal Blood Pressure 140/99 H Blood Pressure Mean 112 Pulse Ox 96 Oxygen Delivery Method Room Air Positive well nourished HEENT atraumatic Neck full ROM Chest Wall Chest Narrative: Tenderness outpatient along the left lateral ribs. Focal area of swelling. No erythema or ecchymosis. Resp normal respiratory effort and clear to auscultation bilaterally Cardio regular rhythm Rate: regular rate GI Palpation: soft Neuro moves all extremities MDM MDM MDM Narrative Medical decision making narrative: Patient is currently on Eliquis and prescription was just filled last week. In light of this CT scan imaging is obtained for better evaluation of chest wall as well as potential hematoma. Radiography Diagnostic Testing: Clinical Impression(s) from Imaging Studies Chest CT 07/26/22 18:16 IMPRESSION: 1. Hiatal hernia. 2. No acute cardiopulmonary disease or major interval change. Electronically Signed: Ascencion Mora DO at 19:20 EDT Reading Location ID and State: [address] [place] [address] Tel [phone], Service support , Treatment and Re-Evaluation Narrative: CT chest reveals no evidence of acute injury. Hiatal hernia is noted. Test results discussed with family and they are reassured. Discharge Plan Triage Chief Complaint: Fall ED Provider: Casi Ivory Dx/Rx/DC Orders Clinical Impression: Chest wall contusion, Fall Instructions: ED Chest Wall Contusion Prescriptions: No Action loratadine 10 MG tablet 10 mg PO DAILY@0800 mirtazapine 7.5 MG tablet 7.5 mg PO QHS@2000 azelastine 6 ML drops 0.05 drp EACH EYE BID@0800,1999 Label Comments: PLACE (1) DROP INTO EACH EYE TWICE DAILY NEEDEDFOR DRY EYE apixaban 5 MG tablet 5 mg PO BID doxycycline monohydrate 100 MG capsule 100 mg PO BID Qty: 20 0RF fluoxetine 40 mg capsule 40 mg PO DAILY@0800 melatonin 3 mg Tablet 4.5 mg PO QHS omeprazole 40 mg Capsule,Delayed Release(Dr/Ec) 40 mg PO DAILY@0700 levothyroxine 50 mcg tablet 50 mcg PO DAILY@0600 docusate sodium 100 mg Capsule 100 mg PO Q2D@1600 cholecalciferol (vitamin D3) [Vitamin D3] 25 mcg (1,000 unit) Tablet,Chewable 25 mcg PO DAILY@0800 ascorbic acid (vitamin C) 500 MG tablet 500 mg PO DAILY@0800 ferrous gluconate 324 MG tablet 324 mg PO DAILY@0800 prednisone 10 mg tablet See Rx Instructions .ROUTE .COMPLEX Rx Instructions: TAKE 3 TABLETS BY MOUTH ONCE DAILY FOR 2 DAYS THEN TAKE 2 TABLETS BY MOUTH ONCE DAILY FOR 2 DAYS THEN TAKE 1 TABLET BY MOUTH ONCE DAILY FOR 2 DAYS carboxymethylcellulose sodium [Refresh Tears] 0.5 % Drops 1 drp EACH EYE TID codeine-guaifenesin 10-100 mg/5 mL liquid See Rx Instructions .ROUTE .COMPLEX Rx Instructions: TAKE 5 MLS BY MOUTH 6 TIMES A DAY NEEDED FOR COUGH ipratropium-albuterol 0.5 mg-3 mg(2.5 mg base)/3 mL solution for nebulization 3 ml inhalation Q6H PRN (Reason: shortness of breath or wheezing) Qty: 90 0RF Primary Care Provider: Rocky Barlow Chi Referrals: Rocky Barlow Chi, MD [Primary Care Provider] - 1-2 Weeks Disposition Disposition: Home, Self Care
[2022-07-26 20:04] VITALS: BP 144/99; PULSE 74; RESP 16; O2SAT 96
== END 2022-07-26 20:05 | disposition home or self-care (01) ==
PROVIDERS: Emergency Provider Emergency Medicine; PCP Family Medicine Geriatric Medicine; Visit Provider Emergency Medicine
DX: S20.20XA Contusion of thorax, unspecified, initial encounter (principal); E78.5 Hyperlipidemia, unspecified; Z79.01 Long term (current) use of anticoagulants; Z99.3 Dependence on wheelchair; W05.0XXA Fall from non-moving wheelchair, initial encounter
CPT/HCPCS: 71250; 99282

== ENCOUNTER 2022-08-15 16:20 | Emergency (ER) | payer MEDICARE, MEDICAID, SELFPAY ==
[2022-08-15 16:21] VITALS: BP 163/140; PULSE 80; RESP 22; TEMP 36.2; O2SAT 97
--- NOTE | 2022-08-15 16:31 | EKG12_ITS ---
Test Reason : SOB Blood Pressure : / mmHG Vent. Rate : 094 BPM Atrial Rate : 094 BPM P-R Int : 126 ms QRS Dur : 068 ms QT Int : 370 ms P-R-T Axes : -13 035 -09 degrees QTc Int : 462 ms Normal sinus rhythm Nonspecific ST and T wave abnormality Abnormal ECG Confirmed by ALISHA LEVY, VANGIE ([id number]), assistant editor GERRI ARMIJO ([id number]) on 08/19/2022 1:31:03 PM Referred By: Confirmed By:VANGIE BRITO MD
--- NOTE | 2022-08-15 16:33 | EDS_ITS ---
HPI History of Present Illness Chief Complaint: Shortness of Breath Detail of Chief Complaint: Shortness of breath Informant: patient and parent Narrative Narrative: Patient presents to the emergency department with complaint of shortness of breath x3 to 4 days. Patient's been coughing and wheezing and presents for evaluation. They have a family friend who was recently diagnosed with pneumonia and bronchitis. Patient is nonverbal and has history of cerebral palsy. Patient nonambulatory. She has had no fever. No vomiting or diarrhea. [facility] Medical History Allergic rhinitis Barretts esophagus Cerebral palsy Depression Fecal impaction Gastroenteritis GERD (gastroesophageal reflux disease) Hyperlipidemia Hypothyroidism Insomnia metal gavi rt leg neurostimulater Pacemaker Pulmonary embolism URI (upper respiratory infection) Vitamin D deficiency Home Medications loratadine 10 mg tablet 10 mg PO DAILY@0800 ALLERGIES 09/10/14 [History Last Taken 01/02/22] mirtazapine 7.5 mg tablet 7.5 mg PO QHS@1999 DEPRESSION 05/19/17 [History Last Taken 01/01/22] azelastine 0.05 % eye drops 0.05 drp EACH EYE BID@0800,1999 DRY EYES 08/08/18 [History Last Taken 01/02/22] apixaban 5 mg tablet 5 mg PO BID BLOOD THINNER 11/23/18 [History Last Taken 01/02/22] doxycycline monohydrate 100 mg capsule 100 mg PO BID #20 CAPSULES 02/03/21 [Rx Last Taken Unknown] ascorbic acid (vitamin C) 500 mg tablet 500 mg PO DAILY@0800 SUPPLEMENT 01/02/22 [History Last Taken 01/02/22] carboxymethylcellulose sodium 0.5 % eye drops (Refresh Tears) 1 drp EACH EYE TID 01/02/22 [History Last Taken 01/02/22] cholecalciferol (vitamin D3) 25 mcg (1,000 unit) chewable tablet (Vitamin D3) 25 mcg PO DAILY@0800 SUPPLEMENT 01/02/22 [History Last Taken 01/02/22] codeine 10 mg-guaifenesin 100 mg/5 mL oral liquid See Rx Instructions .Route .COMPLEX 01/02/22 [History Last Taken Unknown] docusate sodium 100 mg capsule 100 mg PO Q2D@1600 STOOL 01/02/22 [History Last Taken 01/01/22] ferrous gluconate 324 mg (38 mg iron) tablet 324 mg PO DAILY@0800 SUPPLEMENT 01/02/22 [History Last Taken 01/02/22] fluoxetine 40 mg capsule 40 mg PO DAILY@0800 DEPRESSION 01/02/22 [History Last Taken 01/02/22] levothyroxine 50 mcg tablet 50 mcg PO DAILY@0600 THYROID 01/02/22 [History Last Taken 01/02/22] melatonin 3 mg tablet 4.5 mg PO QHS SLEEP 01/02/22 [History Last Taken 01/01/22] omeprazole 40 mg capsule,delayed release 40 mg PO DAILY@0700 GERD 01/02/22 [History Last Taken 01/02/22] prednisone 10 mg tablet See Rx Instructions .Route .COMPLEX 01/02/22 [History Last Taken Unknown] ipratropium 0.5 mg-albuterol 3 mg (2.5 mg base)/3 mL nebulization soln 3 ml inhalation Q6H PRN shortness of breath or wheezing #90 mL 01/03/22 [Rx Last Taken Unknown] prednisone 20 mg tablet 20 mg PO BID #10 tabs 08/15/22 [Rx Last Taken Unknown] Allergy/AdvReac Type Severity Reaction Status Date / Time amoxicillin trihydrate AdvReac Unknown Verified 08/15/22 16:21 [From Augmentin] potassium clavulanate AdvReac Unknown Verified 08/15/22 16:21 [From Augmentin] Surgical History Hx of cataract removal with insertion of prosthetic lens Social History Smoking Status: Never smoker substance use type: does not use ROS ROS ED Review of Systems ROS Unobtainable: other Constitutional Constitutional ED: Reports lethargy; Denies chills, fever(s), sweats or weight loss Eyes Eyes: Denies blurry vision, change in vision or diplopia ENT ENT ED: Denies rhinorrhea or sore throat Cardiovascular Cardiovascular: Denies chest pain, orthopnea or racing heartbeat Respiratory/Chest Respiratory/Chest: Reports cough, dyspnea and dyspnea on exertion; Denies orth opnea or sputum Gastrointestinal Gastrointestinal: Denies abdominal pain, diarrhea, nausea or vomiting Genitourinary Genitourinary ED: Denies dysuria, hematuria or urinary frequency Musculoskeletal Musculoskeletal: Denies arthralgias, back pain, myalgias or neck pain Integumentary Denies abscess, Abrasions or rash Neurologic Neurologic: Denies headache(s) or weakness Psychiatric Psychiatric: Denies anxiety, depression or suicidal thoughts Endocrine Endocrinology: Denies polydipsia, polyphagia or polyuria Hematologic/Lymphatic Hematologic/Lymphatic: Denies easy bleeding, easy bruising or lymphadenopathy Allergic/Immunologic Allergic/Immunologic ED: Denies mouth swelling, tongue swelling or urticaria EXAM Physical Exam Const Vital Signs: 08/15/22 16:21 08/15/22 16:53 08/15/22 17:22 Temperature 97.2 F L Temperature Source Temporal Pulse Rate 80 96 Respiratory Rate 22 H 20 H Respiratory Effort Normal Non-Labored Respiratory Depth Normal Respiratory Pattern Normal Blood Pressure 163/140 H Blood Pressure Mean 147 Pulse Ox 97 Oxygen Delivery Method Room Air Room Air 08/15/22 18:20 Temperature Temperature Source Pulse Rate 102 H Respiratory Rate 20 H Respiratory Effort Respiratory Depth Respiratory Pattern Blood Pressure 121/74 H Blood Pressure Mean 89 Pulse Ox 95 Oxygen Delivery Method Room Air Positive well nourished and well developed General Appearance ED: well developed and NAD HEENT Reports TM's clear and moist mucous membranes normocephalic and atraumatic; Negative for trauma or tenderness Tympanic Membrane ED: Yes TM's clear Eyes PERRL and EOMs intact bilaterally General Eye ED: Negative for pale conjunctiva or scleral icterus Neck no lymphadenopathy, supple and no JVD General: Negative for tenderness Chest Wall inspection of chest normal and palpation of chest normal Chest: Negative for tenderness Resp normal respiratory effort and clear to auscultation bilaterally Resp Narrative: Mild tachypnea. Patient with wheezes throughout. No accessory muscle use or retractions. Effort and Inspection: Negative for respiratory distress or pain with movement Auscultation: wheezes; Negative for rhonchi or diminished lung sounds Cardio regular rate, regular rhythm, S1 normal heart sound, S2 normal heart sound and no murmurs Peripheral Pulses: pulses 2+ throughout GI normal to inspection, nondistended, normoactive bowel sounds, soft to palpation, non-tender, non-distended and no masses Back/Spine no CVA tenderness and no thoracic nor lumbar tenderness Extremity normal to inspection General Extremety ED: Negative for edema General Extremity: Negative for edema Neuro oriented x3, CN's II-XII intact bilaterally, no sensory deficits noted and gait normal Sensorium / Orientation: awake, alert, oriented to person, oriented to place and oriented to time Motor Exam: strength 5/5 throughout and strength abnormal Psych mental status grossly normal Skin no rashes or lesions noted and no wounds MDM MDM MDM Narrative Medical decision making narrative: Presents to the emergency department with complaint of shortness of breath and wheezing that is been going on for about 3 to 4 days. In the differential would be asthmatic bronchitis or pneumonia. IV line established on arrival. Patient had a EKG obtained on arrival showed a sinus rhythm with a rate of [address] changes. CBC with differential showed a white count of 9.6 with hemoglobin of 14 and hematocrit of 44 and platelet count 284. Chemistries unremarkable. Lactate was elevated at 4.6 and etiology of this is unclear as I do not feel patient is septic. Chest x-ray obtained showed no evidence of pneumonia or acute infiltrate. Urinalysis was normal. No signs of infection. Patient had a COVID and flu test that were negative. Patient did receive a DuoNeb aerosol and given Solu-Medrol 125 mg IV. On repeat exam I do not appreciate any wheezing and she is in no respiratory distress. I feel patient can be discharged to home. I suspect likely an asthmatic bronchitis. Patient will be given a prescription for prednisone. They have albuterol nebulizer at home. I advised to use nebulizer every 4 hours as needed for wheezing. Advised to follow-up with primary care physician within next 3 to 5 days. Advised to return if increasing shortness of breath or condition should worsen anyway. Lab Data Attestation: I reviewed the patient's lab results. Labs: Laboratory Results - last 24 hr 08/15/22 08/15/22 08/15/22 17:00 17:00 17:00 WBC 9.6 RBC 4.49 Hgb 14.3 Hct 43.8 MCV 97.6 MCH 31.8 MCHC 32.6 RDW Std Deviation 49.0 H RDW Coeff of Handy 13.5 Plt Count 284 MPV 11.1 Immature Gran % (Auto) 0.200 Neut % (Auto) 59.8 Lymph % (Auto) 27.6 Overton % (Auto) 8.7 Eos % (Auto) 3.2 Baso % (Auto) 0.5 Absolute Neuts (auto) 5.7 Absolute Lymphs (auto) 2.64 Nucleated RBC % 0 Sodium 142 Potassium 3.2 L Chloride 109 H Carbon Dioxide 28.0 Anion Gap 5 BUN 8 Creatinine 0.59 Estim Creat Clear Calc 71.92 Est GFR (MDRD) Af Amer 132 Est GFR (MDRD) Non-Af 109 BUN/Creatinine Ratio 13.5 Glucose 118 H Lactic Acid 4.6 H* Calcium 9.0 Urine Color Urine Clarity Urine pH Ur Specific [place] Urine Protein Urine Glucose (UA) Urine Ketones Urine Occult Blood Urine Nitrite Urine Bilirubin Urine Urobilinogen Ur Leukocyte Esterase Urine RBC Urine WBC Ur Squamous Epith Cells Urine Bacteria Urine Mucus 08/15/22 18:20 WBC RBC Hgb Hct MCV MCH MCHC RDW Std Deviation RDW Coeff of Handy Plt Count MPV Immature Gran % (Auto) Neut % (Auto) Lymph % (Auto) Overton % (Auto) Eos % (Auto) Baso % (Auto) Absolute Neuts (auto) Absolute Lymphs (auto) Nucleated RBC % Sodium Potassium Chloride Carbon Dioxide Anion Gap BUN Creatinine Estim Creat Clear Calc Est GFR (MDRD) Af Amer Est GFR (MDRD) Non-Af BUN/Creatinine Ratio Glucose Lactic Acid Calcium Urine Color Yellow Urine Clarity Clear Urine pH 5.0 Ur Specific Alpine 1.015 Urine Protein Negative Urine Glucose (UA) Normal Urine Ketones 5 H Urine Occult Blood Negative Urine Nitrite Negative Urine Bilirubin Negative Urine Urobilinogen Normal Ur Leukocyte Esterase Negative Urine RBC 0 SEEN Urine WBC 0 SEEN Ur Squamous Epith Cells 0 SEEN Urine Bacteria 0 SEEN Urine Mucus 0 SEEN Radiography Diagnostic Testing: Clinical Impression(s) from Imaging Studies Chest X-Ray 08/15/22 17:35 IMPRESSION: No radiographic evidence of acute cardiopulmonary disease. Electronically Signed: Salomón Glez DO at 17:59 EDT Reading Location ID and State: [facility] / [place] Tel [phone], Service support , 1 view chest x-ray obtained interpreted by myself as no evidence of infiltrate or pneumothorax or acute disease process. Radiology in agreement. EKG Initial EKG: Attestation: I personally reviewed and interpreted this EKG as follows: Comments: Sinus rhythm with a ventricular rate of [address] changes Discharge Plan Triage Chief Complaint: Shortness of Breath ED Provider: Raul Viveros Dx/Rx/DC Orders Clinical Impression: Asthmatic bronchitis Instructions: ED Bronchitis with Wheezing (Adult) Prescriptions: New prednisone 20 mg tablet 20 mg PO BID Qty: 10 0RF No Action loratadine 10 MG tablet 10 mg PO DAILY@0800 mirtazapine 7.5 MG tablet 7.5 mg PO QHS@2000 azelastine 6 ML drops 0.05 drp EACH EYE BID@0800,2000 Label Comments: PLACE (1) DROP INTO EACH EYE TWICE DAILY NEEDEDFOR DRY EYE apixaban 5 MG tablet 5 mg PO BID doxycycline monohydrate 100 MG capsule 100 mg PO BID Qty: 20 0RF fluoxetine 40 mg capsule 40 mg PO DAILY@0800 melatonin 3 mg Tablet 4.5 mg PO QHS omeprazole 40 mg Capsule,Delayed Release(Dr/Ec) 40 mg PO DAILY@0700 levothyroxine 50 mcg tablet 50 mcg PO DAILY@0600 docusate sodium 100 mg Capsule 100 mg PO Q2D@1600 cholecalciferol (vitamin D3) [Vitamin D3] 25 mcg (1,000 unit) Tablet,Chewable 25 mcg PO DAILY@0800 ascorbic acid (vitamin C) 500 MG tablet 500 mg PO DAILY@0800 ferrous gluconate 324 MG tablet 324 mg PO DAILY@0800 prednisone 10 mg tablet See Rx Instructions .ROUTE .COMPLEX Rx Instructions: TAKE 3 TABLETS BY MOUTH ONCE DAILY FOR 2 DAYS THEN TAKE 2 TABLETS BY MOUTH ONCE DAILY FOR 2 DAYS THEN TAKE 1 TABLET BY MOUTH ONCE DAILY FOR 2 DAYS carboxymethylcellulose sodium [Refresh Tears] 0.5 % Drops 1 drp EACH EYE TID codeine-guaifenesin 10-100 mg/5 mL liquid See Rx Instructions .ROUTE .COMPLEX Rx Instructions: TAKE 5 MLS BY MOUTH 6 TIMES A DAY NEEDED FOR COUGH ipratropium-albuterol 0.5 mg-3 mg(2.5 mg base)/3 mL solution for nebulization 3 ml inhalation Q6H PRN (Reason: shortness of breath or wheezing) Qty: 90 0RF Primary Care Provider: Rocky Barlow Chi Referrals: Rocky Barlow Chi, MD [Primary Care Provider] - 3-5 Days Disposition Disposition: Home, Self Care
[2022-08-15 16:38] VITALS: BMI 24.7
[2022-08-15] MEDS: Ipratropium/Albuterol Sulfate 3 ML AMPUL.NEB INHALATION (16:39)
[2022-08-15 16:53] VITALS: PULSE 96; RESP 20
[2022-08-15] MEDS: 0.9% Normal Saline 1,000 ML 150 ML IV (17:18)
[2022-08-15 17:19] LABS: Absolute Lymphocyte Count 2.64 X10^3/uL (0.83-4.51); Absolute Neutrophil Count 5.7 X10^3/uL (2.0-7.7); Basophil# 0.05 X10^3/uL; Basophil% 0.5 % (0-1); Eosinophil# 0.31 X10^3/uL; Eosinophils% 3.2 % (0-5); Hematocrit 43.8 % (37-47); Hemoglobin 14.3 g/dL (12.0-15.0); Lymphocyte # 2.64 X10^3/ul (0.83-4.51); Lymphocyte % 27.6 % (19-41); Mean Corp Hgb Conc 32.6 g/dL (32-36); Mean Corpuscular Hgb 31.8 pg (27.0-32.0); Mean Corpuscular Volume 97.6 fL (81-99); Mean Platelet Vol. 11.1 fl (6.2-12.0); Monocyte# 0.83 X10^3/uL; Monocyte% 8.7 % (0-10); NRBC Flagged by Analyzer 0 % (0-5); Neutrophil # 5.73 X10^3/uL (2.7-7.7); Neutrophil % 59.8 % (47-70); Platelet Count 284 K/mm3 (150-450); RBC Distribution Width CV 13.5 % (11.6-14.6); Red Blood Count 4.49 M/mm3 (4.2-5.4); White Blood Count 9.6 K/mm3 (4.4-11.0)
[2022-08-15] MEDS: MethylPREDNISolone 125 MG/2 ML Vial IV (17:29)
--- NOTE | 2022-08-15 17:35 | RAD_ITS ---
INDICATION: dyspnea EXAMINATION/TECHNIQUE: X-RAY - XR Chest 1 View COMPARISON: March 21, 2022 FINDINGS: LINES/DEVICES: None. LUNGS: No consolidation, edema or effusion. No pneumothorax. MEDIASTINUM AND CARDIOVASCULAR STRUCTURES: Cardiac silhouette not enlarged. Central airways and mediastinal contour are unremarkable. BONES AND SOFT TISSUES: Unremarkable. RAD/Chest 1 View (Portable) IMPRESSION: No radiographic evidence of acute cardiopulmonary disease. Electronically Signed: Salomón Glez DO at 17:59 EDT ,
[2022-08-15 17:38] LABS: Lactic Acid 4.6 mmol/L (0.4-1.9)
[2022-08-15 17:44] LABS: Anion Gap 5 (5-15); BUN 8 mg/dL (7-18); BUN/Creat Ratio 13.5 RATIO (10-20); Chloride 109 mmol/L (98-107); Creatinine, Serum 0.59 mg/dL (0.55-1.02); EST Glomerular Filtration Rate 109 mL/min (>60); Est Glom Filt Rate - Afr Amer 132 mL/min (>60); Estimated Creatinine Clearance 71.92 ml/min; Glucose 118 mg/dL (74-106); Potassium 3.2 mmol/L (3.5-5.1); Sodium Level 142 mmol/L (136-145)
[2022-08-15 18:20] VITALS: BP 121/74; PULSE 102; RESP 20; O2SAT 95
[2022-08-15 18:32] LABS: Bacteria 0 SEEN /hpf (None Seen); Mucous, Urine 0 SEEN /hpf (<or=2+); Red Blood Cells-Urine 0 SEEN /hpf (0-5); Squamous Epithelial Cells - UA 0 SEEN /hpf (5-10); White Blood Cells 0 SEEN /hpf (0-5)
[2022-08-15 18:39] LABS: Color, Urine Yellow (Yellow); Glucose, Dipstick Normal (Normal); Ketone-Dipstick 5 mg/dl (Negative); Leukocyte Esterase-Dipstick Negative /ul (Negative); Nitrite-Dipstick Negative (Negative); Occult Blood-Urine Negative /ul (Negative); Protein-Dipstick Negative (Negative); Specific Gravity, Urine 1.015 (1.002-1.030); Urine Bilirubin Dipstick Negative (Negative); Urine Clarity Clear (Clear); Urine Urobilinogen Normal (Normal)
[2022-08-15 21:15] LABS: Reflex Lactate? Y
== END 2022-08-15 20:00 | disposition home or self-care (01) ==
PROVIDERS: Emergency Provider Emergency Medicine; PCP Family Medicine Geriatric Medicine; Visit Provider Emergency Medicine
DX: J45.909 Unspecified asthma, uncomplicated (principal); E78.5 Hyperlipidemia, unspecified
CPT/HCPCS: 71045; 80048; 81001; 83605; 85025; 87040; 87428; 93005; 94640; 96361; 96374; 99285; J7030; P9612; A4216

== ENCOUNTER → 2022-12-03 | Outpatient (CLI) | payer MEDICARE, MEDICAID, SELFPAY ==
[2022-12-03 12:13] LABS: Absolute Lymphocyte Count 2.53 X10^3/uL (0.83-4.51); Absolute Neutrophil Count 2.8 X10^3/uL (2.0-7.7); Basophil# 0.09 X10^3/uL; Basophil% 1.4 % (0-1); Eosinophil# 0.38 X10^3/uL; Hematocrit 44.5 % (37-47); Hemoglobin 14.1 g/dL (12.0-15.0); Lymphocyte # 2.53 X10^3/ul (0.83-4.51); Lymphocyte % 40.1 % (19-41); Mean Corp Hgb Conc 31.7 g/dL (32-36); Mean Corpuscular Hgb 30.7 pg (27.0-32.0); Mean Corpuscular Volume 96.9 fL (81-99); Mean Platelet Vol. 11.8 fl (6.2-12.0); Monocyte% 7.9 % (0-10); NRBC Flagged by Analyzer 0 % (0-5); Neutrophil % 44.4 % (47-70); Platelet Count 238 K/mm3 (150-450); RBC Distribution Width CV 13.2 % (11.6-14.6); RBC Distribution Width SD 47.1 fl (35.1-43.9); Red Blood Count 4.59 M/mm3 (4.2-5.4); White Blood Count 6.3 K/mm3 (4.4-11.0)
[2022-12-03 12:57] LABS: ALB/GLOB Ratio 0.9 RATIO (0.9-2.4); AST(SGOT) 11 U/L (15-37); Alanine Aminotransfer ALT/SGPT 18 U/L (13-56); Albumin, Serum 3.4 g/dL (3.2-5.0); Alkaline Phosphatase 115 U/L (45-117); Anion Gap 5 (5-15); BUN 6 mg/dL (7-18); BUN/Creat Ratio 10.5 RATIO (10-20); Calcium,Total 8.7 mg/dL (8.5-10.1); Chloride 108 mmol/L (98-107); Cholesterol 209 mg/dL (200); Creatinine, Serum 0.57 mg/dL (0.55-1.02); EST Glomerular Filtration Rate 114 mL/min (>60); Est Glom Filt Rate - Afr Amer 138 mL/min (>60); Globulin 3.9 g/dL (2.2-4.2); Glucose 99 mg/dL (74-106); High Density Lipoprotein 56 mg/dL; Potassium 3.7 mmol/L (3.5-5.1); Protein, Total 7.3 g/dL (6.4-8.2); Sodium Level 142 mmol/L (136-145); Thyroid Stim Hormone (TSH) 1.37 uIU/mL (0.358-3.74); Triglycerides 146 mg/dL; Very Low Density Lipoprotein 29 mg/dL (5-40)
== END | disposition home or self-care (01) ==
LOC: POLAB3 10:21
PROVIDERS: PCP Family Medicine Geriatric Medicine; Visit Provider Family Medicine Geriatric Medicine
DX: R53.83 Other fatigue (principal); E78.5 Hyperlipidemia, unspecified
CPT/HCPCS: 36415; 80053; 80061; 84443; 85025

== ENCOUNTER → 2022-12-11 | Outpatient (CLI) | payer MEDICARE, MEDICAID, SELFPAY ==
--- NOTE | 2022-12-11 16:10 | RAD_ITS ---
INDICATION: WHEEZING EXAMINATION/TECHNIQUE: X-RAY - XR Chest 2 Views COMPARISON: 08/15/2022 FINDINGS: LINES/DEVICES: Electronic device projects over the right upper quadrant. LUNGS: Low lung volumes with hazy bibasilar airspace opacities, no consolidation or pleural effusion. MEDIASTINUM AND CARDIOVASCULAR STRUCTURES: Cardiac silhouette stable within normal limits. BONES AND SOFT TISSUES: No acute changes. RAD/Chest PA and Lateral IMPRESSION: Low lung volumes with bibasilar subsegmental atelectasis versus infiltrates. Recommend short-term follow-up to resolution. Electronically Signed: Noel Sanchez MD at 16:46 EDT ,
[2022-12-11 17:06] LABS: Absolute Lymphocyte Count 2.85 X10^3/uL (0.83-4.51); Absolute Neutrophil Count 5.6 X10^3/uL (2.0-7.7); Basophil# 0.06 X10^3/uL; Basophil% 0.6 % (0-1); Eosinophil# 0.38 X10^3/uL; Hematocrit 42.1 % (37-47); Hemoglobin 13.8 g/dL (12.0-15.0); Lymphocyte # 2.85 X10^3/ul (0.83-4.51); Lymphocyte % 29.9 % (19-41); Mean Corp Hgb Conc 32.8 g/dL (32-36); Mean Corpuscular Hgb 31.4 pg (27.0-32.0); Mean Corpuscular Volume 95.7 fL (81-99); Mean Platelet Vol. 11.7 fl (6.2-12.0); Monocyte# 0.67 X10^3/uL; NRBC Flagged by Analyzer 0 % (0-5); Neutrophil # 5.56 X10^3/uL (2.7-7.7); Neutrophil % 58.3 % (47-70); Platelet Count 213 K/mm3 (150-450); RBC Distribution Width CV 13.5 % (11.6-14.6); RBC Distribution Width SD 47.8 fl (35.1-43.9); White Blood Count 9.5 K/mm3 (4.4-11.0)
[2022-12-11 18:07] LABS: Anion Gap 5 (5-15); BUN 6 mg/dL (7-18); BUN/Creat Ratio 12.7 RATIO (10-20); Calcium,Total 9.2 mg/dL (8.5-10.1); Chloride 107 mmol/L (98-107); Creatinine, Serum 0.47 mg/dL (0.55-1.02); EST Glomerular Filtration Rate 143 mL/min (>60); Est Glom Filt Rate - Afr Amer 173 mL/min (>60); Glucose 106 mg/dL (74-106); Sodium Level 141 mmol/L (136-145)
== END | disposition home or self-care (01) ==
PROVIDERS: PCP Family Medicine Geriatric Medicine; Referring Provider Family Medicine Geriatric Medicine; Visit Provider Family Medicine Geriatric Medicine
DX: R53.83 Other fatigue (principal); R06.2 Wheezing
CPT/HCPCS: 36415; 71046; 80048; 85025

== ENCOUNTER → 2022-12-12 | Outpatient (CLI) | payer MEDICARE, MEDICAID, SELFPAY | END | disposition home or self-care (01) | LOC: PSN 10:12 | PROVIDERS: PCP Family Medicine Geriatric Medicine; Referring Provider Family Medicine Geriatric Medicine; Visit Provider Family Medicine Geriatric Medicine | DX: R68.83 Chills (without fever) (principal) | CPT/HCPCS: 87635; 87804; 87807 ==

== ENCOUNTER → 2023-01-01 | Outpatient (CLI) | payer MEDICARE, MEDICAID, SELFPAY ==
--- NOTE | 2023-01-01 13:54 | ST.MBS ---
Modified Barium Swallow Patient Information Study Date: 01/01/23 Study Time: 13:00 Direct Billable Minutes: 111 Total Minutes procedure & reportin Diagnosis: Dysphagia R13.10, Cerebral Palsy G80.9 Referring Physician: Rocky Barlow Chi Reason for Referral: Objectively assess swallow function, assess risk for aspiration, and determine recommendations for least restrictive diet textures and compensatory strategies to improve safety of swallow. Medical History: The patient is a 62-year-old female with PMH below. She has been referred for MBSS due to coughing with liquids and solids. She is on a Minced and Moist textures / Thin liquid diet at home per [employer]YCLING PROGRAM MANAGER from [place]. She lives by herself but is checked on and assisted at home multiple times a day by an agency, [employer]. Agency undertaker assistant present for study, as was the patient's mother and legal guardian, Jess. Patient had MBSS 10 years ago, as well as MBSS in 2018. MBSS 05/21/2017 was available in the patient's chart. It revealed moderate oropharyngeal dysphagia and recommended puree textures / thin liquids with TOTAL FEED and aspiration precautions. Per agency undertaker assistant, the patient has PNA ~2 weeks ago and the concern was that the PNA was related to aspiration. PMH: Allergic rhinitis, Barretts esophagus, Cerebral palsy, Depression, Fecal impaction, Gastroenteritis, GERD, Hyperlipidemia, Hypothyroidism, Insomnia, Pacemaker, PE, URI, Vitamin D deficiency, hiatal hernia. Current Diet Ordered: Minced and Moist textures / Thin liquids Dentition: Natural Teeth Respiratory Status: Oxygenating on Room Air Penetration-Aspiration Scale Penetration-Aspiration Scale: OBJECTIVE ASSESSMENT OF SWALLOW FUNCTION (QUANTITATIVE ? PER TRIAL): PENETRATION / ASPIRATION SCALE (BRANDT): 1 = does not enter airway 2 = enters airway/above vocal folds/ejected 3 = enters airway/above vocal folds/not ejected 4 = enters airway/contacts vocal folds/ejected 5 = enters airway/contacts vocal folds/not ejected 6 = enters airway/below vocal folds/ejected 7 = enters airway/below vocal folds/not ejected despite effort 8 = enters airway/below vocal folds/no effort VIDEOFLOROSCOPIC SCALE SCORE (BRANDT): Grade I = aspiration of material that has penetrated into the laryngeal vestibule, intact cough reflex Grade II = aspiration < 10 % of the bolus, intact cough reflex Grade III = aspiration of < 10 % of the bolus, reduced cough reflex or aspiration of > 10 % of the bolus, intact cough reflex Grade IV = aspiration of > 10 % of the bolus, reduced cough reflex Penetration-Aspiration Scale Score Thin Liquid via teaspoon: Result: 1= does not enter airway Thin Liquid via teaspoon Trial 2: Result: 1= does not enter airway Thin Liquid via small single sip: cup: Result: 1= does not enter airway Thin Liquid via sequential sips: cup: Result: 1= does not enter airway [place] Thick Liquid via teaspoon: Result: 1= does not enter airway (Patient refused NTL by cup) Pudding via teaspoon: Result: 1= does not enter airway Comment: Esophageal screen - complete clearance Thin Liquid via sequential sips: cup Trial 2: Result: 1= does not enter airway 1/4 Cookie soaked in thin barium, then crushed and coated in pudding: Result: 1= does not enter airway Oral Phase Labial Seal: Escape beyond mid-chin Tongue Control During Bolus Hold: Posterior escape of less than half of bolus Bolus Preparation/Mastication: Disorganized chewing/mashing with solid pieces of bolus unchewed Bolus Transport/Lingual Motion: Repetitive/disorganized tongue motion Oral Residue: Trace residue lining oral structures Pharyngeal Phase Initiation of Pharyngeal Swallow: Bolus head in pyriforms Soft Palate Elevation: No bolus between soft palate and pharyngeal wall Laryngeal Elevation: Comp. Superior move thyroid cart w/comp. apprx arytenoid cart-epig pet Anterior Hyoid Excursion: Partial anterior movement (little to no anterior movement) Epiglottic Movement: Complete inversion Laryngeal Vestibule Closure at Height of Swallow: Complete; no air/contrast in laryngeal vestibule Pharyngeal Stripping Wave: Present - complete Pharyngoesophageal Segment Opening: Complete distension and complete duration; no obstruction of flow Tongue Base Retraction: Trace column of contrast between tongue base & post. pharyngeal wall Pharyngeal Residue: Trace residue within or on pharyngeal structures Esophageal Phase Esophageal Clearance: Complete clearance Diagnosis/Impression Diagnosis: Moderate oropharyngeal phase dysphagia (R13.12) Impression: The oral phase is marked by... -Moderate-severe mastication deficit with disorganized mashing of soaked/crushed cookie. -Moderate-severe deficits in bolus control mostly observed with anterior loss of sips due to extraneous movement of head throughout the evaluation. Patient also had posterior loss of certain trials to the pyriforms prior to swallow onset. -Disorganized tongue motion for A-P transport. The pharyngeal phase is marked by... -Mildly delayed swallow onset. -Cannot fully rule out aspiration due to patient's body habitus. -No laryngeal penetration or aspiration was observed during the study; however, RECYCLING PROGRAM MANAGER is concerned the patient is at high risk for aspiration and choking due to poor bolus control, impaired mastication, and impaired swallow coordination. Additionally, the patient was reported to cough at home when eating and drinking with recent PNA suspected to be aspiration related. Recommendations Diet: Puree Textures and Thin Liquids Compensatory Strategies: Small Bites, Small Sips, Slow Rate (SIPS ONE AT A TIME), Sitting upright and Remain sitting upright for 30 minutes after PO intake Supervision: Total Feed Recommend Repeat Modified Barium Swallow: TBD Need for Skilled Speech Therapy Services: Yes Comment: If able to participate, will recommend an RECYCLING PROGRAM MANAGER implements oral motor exercises to promote improved bolus control - lingual resistance, lingual coordination exercises, labial strength/coordination exercises. Will additionally recommend education for patient, family, and staff regarding recommended diet textures and precautions to decrease risk for aspiration and choking. Education Completed: 1. Described result of evaluation. and 4. Family/caregivers understand evaluation & agree w/ goals & tx plan. Status Active ST Patient: Active Contact Information [facility] Speech Therapy:: Britney Downing M.A. [facility]-RECYCLING PROGRAM MANAGER Speech-Language Pathologist [facility] [address] [place] [address] [email or web address] [phone]
== END | disposition home or self-care (01) ==
LOC: RAD 12:47
PROVIDERS: PCP Family Medicine Geriatric Medicine; Referring Provider Family Medicine Geriatric Medicine; Visit Provider Family Medicine Geriatric Medicine
DX: R13.10 Dysphagia, unspecified (principal); G80.9 Cerebral palsy, unspecified
CPT/HCPCS: 74230; 92611

== ENCOUNTER → 2023-02-05 | Outpatient (CLI) | payer MEDICARE, MEDICAID, SELFPAY | END | disposition home or self-care (01) | LOC: PSN 12:12 | PROVIDERS: PCP Family Medicine Geriatric Medicine; Referring Provider Family Medicine Geriatric Medicine; Visit Provider Family Medicine Geriatric Medicine | DX: R68.83 Chills (without fever) (principal) | CPT/HCPCS: 87635; 87804; 87807; C9803 ==

== ENCOUNTER 2023-06-13 05:51 | Emergency (ER) | payer MEDICARE, MEDICAID, SELFPAY ==
[2023-06-13 05:51] VITALS: BP 125/9; PULSE 95; RESP 19; TEMP 36.6; O2SAT 98; BMI 28.8
[2023-06-13 05:57] VITALS: BP 111/56; PULSE 92; RESP 18; TEMP 36.7; O2SAT 96
--- NOTE | 2023-06-13 06:08 | RAD_ITS ---
INDICATION: abd pain EXAMINATION/TECHNIQUE: X-RAY - the XR Abdomen Series W/ Chest 1 View COMPARISON: No relevant prior comparison study available FINDINGS: --Chest: LINES/DEVICES: None. LUNGS: No consolidation, edema or effusion. No pneumothorax. MEDIASTINUM AND CARDIOVASCULAR STRUCTURES: Cardiac silhouette not enlarged. Central airways and mediastinal contour are unremarkable. BONES AND SOFT TISSUES: No acute findings. --Abdomen: BOWEL GAS PATTERN: Non-obstructive. No bowel or stomach distention. FREE AIR: None visualized. ORGANOMEGALY: Not seen. CALCIFICATIONS: No abnormal calcifications observed. BONES AND SOFT TISSUES: Moderate degenerative arthrosis in the SI joints and hip joints and pubic symphysis. Osseous demineralization suggesting osteopenia. RAD/Acute Abdomen Inc Chest IMPRESSION: Negative chest and abdominal series. Electronically Signed: Nickie Ramirez MD at 8:17 EDT ,
[2023-06-13 06:19] LABS: Absolute Lymphocyte Count 1.11 X10^3/uL (0.83-4.51); Absolute Neutrophil Count 7.2 X10^3/uL (2.0-7.7); Basophil# 0.03 X10^3/uL; Basophil% 0.3 % (0-1); Eosinophil# 0.22 X10^3/uL; Eosinophils% 2.5 % (0-5); Hematocrit 43.6 % (37-47); Hemoglobin 14.3 g/dL (12.0-15.0); Lymphocyte # 1.11 X10^3/ul (0.83-4.51); Lymphocyte % 12.4 % (19-41); Mean Corp Hgb Conc 32.8 g/dL (32-36); Mean Corpuscular Volume 94.4 fL (81-99); Mean Platelet Vol. 10.5 fl (6.2-12.0); Monocyte# 0.41 X10^3/uL; Monocyte% 4.6 % (0-10); NRBC Flagged by Analyzer 0 % (0-5); Neutrophil # 7.16 X10^3/uL (2.7-7.7); Platelet Count 321 K/mm3 (150-450); RBC Distribution Width CV 13.5 % (11.6-14.6); RBC Distribution Width SD 47.4 fl (35.1-43.9); Red Blood Count 4.62 M/mm3 (4.2-5.4)
[2023-06-13] MEDS: 0.9% Normal Saline (1000mL) 1,000 ML 999 ML IV (06:22)
[2023-06-13] MEDS: Ondansetron 4 MG/2 ML Vial IV (06:22)
--- NOTE | 2023-06-13 06:29 | EDS_ITS ---
HPI History of Present Illness Chief Complaint: General Illness Informant: patient and legal guardian Narrative Narrative: Patient is a 62-year-old female with past medical history of cerebral palsy as well as previous pulmonary embolism currently on Xarelto hypothyroidism and hyperlipidemia. Forensic Audit Expert reports that she awoke around 2:30/2:45 in the morning to sounds of retching and the patient had 3 bouts of vomiting. Forensic Audit Expert states that the vomit was whenever was in her stomach and then turned to bile and was not dark or bloody. Reportedly the patient has a remote history of bowel obstruction and the investigations consultant denies any recent diarrhea and therefore was concerned for this and called EMS to bring her in for evaluation. The patient cannot offer any further history based on her cerebral palsy Please note investigations consultant states that she and her other investigations consultant were both sick with similar symptoms just last week. [facility] Medical History Allergic rhinitis Barretts esophagus Cerebral palsy Depression Fecal impaction Gastroenteritis GERD (gastroesophageal reflux disease) Hyperlipidemia Hypothyroidism Insomnia metal gavi rt leg neurostimulater Pacemaker Pulmonary embolism URI (upper respiratory infection) Vitamin D deficiency Home Medications loratadine 10 mg tablet 10 mg PO DAILY@0800 ALLERGIES 09/10/14 [History Last Taken 01/02/22] mirtazapine 7.5 mg tablet 7.5 mg PO QHS@1999 DEPRESSION 05/19/17 [History Last Taken 01/01/22] azelastine 0.05 % eye drops 0.05 drp EACH EYE BID@08,1999 DRY EYES 08/08/18 [History Last Taken 01/02/22] apixaban 5 mg tablet 5 mg PO BID BLOOD THINNER 11/23/18 [History Last Taken 01/02/22] doxycycline monohydrate 100 mg capsule 100 mg PO BID #20 CAPSULES 02/03/21 [Rx Last Taken Unknown] ascorbic acid (vitamin C) 500 mg tablet 500 mg PO DAILY@0800 SUPPLEMENT 01/02/22 [History Last Taken 01/02/22] carboxymethylcellulose sodium 0.5 % eye drops (Refresh Tears) 1 drp EACH EYE TID 01/02/22 [History Last Taken 01/02/22] cholecalciferol (vitamin D3) 25 mcg (1,000 unit) chewable tablet (Vitamin D3) 25 mcg PO DAILY@0800 SUPPLEMENT 01/02/22 [History Last Taken 01/02/22] codeine 10 mg-guaifenesin 100 mg/5 mL oral liquid See Rx Instructions .Route .COMPLEX 01/02/22 [History Last Taken Unknown] docusate sodium 100 mg capsule 100 mg PO Q2D@1600 STOOL 01/02/22 [History Last Taken 01/01/22] ferrous gluconate 324 mg (38 mg iron) tablet 324 mg PO DAILY@0800 SUPPLEMENT 01/02/22 [History Last Taken 01/02/22] fluoxetine 40 mg capsule 40 mg PO DAILY@0800 DEPRESSION 01/02/22 [History Last Taken 01/02/22] levothyroxine 50 mcg tablet 50 mcg PO DAILY@0600 THYROID 01/02/22 [History Last Taken 01/02/22] melatonin 3 mg tablet 4.5 mg PO QHS SLEEP 01/02/22 [History Last Taken 01/01/22] omeprazole 40 mg capsule,delayed release 40 mg PO DAILY@0700 GERD 01/02/22 [History Last Taken 01/02/22] prednisone 10 mg tablet See Rx Instructions .Route .COMPLEX 01/02/22 [History Last Taken Unknown] ipratropium 0.5 mg-albuterol 3 mg (2.5 mg base)/3 mL nebulization soln 3 ml inhalation Q6H PRN shortness of breath or wheezing #90 mL 01/03/22 [Rx Last Taken Unknown] prednisone 20 mg tablet 20 mg PO BID #10 tabs 08/15/22 [Rx Last Taken Unknown] ondansetron 4 mg disintegrating tablet 4 mg PO TID PRN nausea and vomiting #21 tabs 06/13/23 [Rx Last Taken Unknown] Allergy/AdvReac Type Severity Reaction Status Date / Time amoxicillin trihydrate AdvReac Unknown Verified 06/13/23 05:54 [From Augmentin] potassium clavulanate AdvReac Unknown Verified 06/13/23 05:54 [From Augmentin] Surgical History Hx of cataract removal with insertion of prosthetic lens Social History Smoking Status: Never smoker substance use type: does not use ROS ROS ED ROS Narrative Please note review of systems was obtained from investigations consultant Constitutional Constitutional ED: Denies fever(s) ENT ENT ED: Denies rhinorrhea Respiratory/Chest Respiratory/Chest: Denies cough Gastrointestinal Gastrointestinal: Reports nausea and vomiting; Denies abdominal pain or diarrhea Integumentary Denies rash Hematologic/Lymphatic Hematologic/Lymphatic: Reports easy bleeding and easy bruising EXAM Physical Exam Const Vital Signs: 06/13/23 05:51 06/13/23 05:57 06/13/23 07:51 Temperature 97.8 F 98.0 F Temperature Source Temporal Temporal Pulse Rate 95 92 78 Respiratory Rate 19 H 18 16 Blood Pressure 125/9 H 111/56 L 120/81 H Blood Pressure Mean 47 74 94 Pulse Ox 98 96 94 Oxygen Delivery Method Room Air Room Air Room Air 06/13/23 08:00 Temperature 97.8 F Temperature Source Temporal Pulse Rate 88 Respiratory Rate 18 Blood Pressure 120/81 H Blood Pressure Mean 94 Pulse Ox 94 Oxygen Delivery Method Room Air Positive well nourished and well developed General Appearance ED: well developed; Negative for pallor HEENT HEENT Narrative: Mucous membranes are slightly dry and tacky No secondary changes to suggest infection in the posterior pharynx No airway edema or compromise Eyes PERRL and EOMs intact bilaterally General Eye ED: Negative for scleral icterus Neck supple Neck Narrative: No nuchal rigidity or meningeal signs Chest Wall palpation of chest normal Resp normal respiratory effort and clear to auscultation bilaterally Resp Narrative: Breath sounds are diminished throughout but overall clear to auscultation without signs of respiratory distress Cardio regular rate and regular rhythm GI non-tender, non-distended and no masses GI Narrative: Abdomen is soft nontender and nondistended with hyperactive bowel sounds. No increased tympany noted No pulsatile mass Auscultation: hyperactive bowel sounds Palpation: soft Extremity Extremity Narrative: Patient has chronic contractures secondary to history of cerebral palsy but no signs of trauma or infection Neuro Neuro Narrative: Patient is at her baseline mental status with history of cerebral palsy without new or acute finding Psych mental status grossly normal Skin no rashes or lesions noted General Skin Exam: Negative for jaundice or pallor MDM MDM MDM Narrative Medical decision making narrative: Patient arrived to the ER with stable vitals and a soft nonsurgical abdomen. Caretakers reported 3 bouts of vomiting and then stated they also had similar symptoms roughly 5 days ago. Differential diagnosis is for viral infection such as [place] virus versus rotavirus versus electrolyte abnormality versus acute kidney injury versus small bowel obstruction. Basic labs were obtained which revealed no clinically significant findings. The patient's exam does not suggest SBO but as she does have a history of this and also vomited multiple times there is concern for aspiration so acute abdominal series with 1 view chest was obtained. This revealed no obvious signs of obstruction or aspiration which correlates with her vital signs and physical exam. Patient was hydrated 1 L of normal saline and given Zofran and had no further bouts of vomiting. On reevaluation her abdomen remains soft and nonsurgical. Therefore at this time I feel symptoms are most likely viral in nature and as she is hemodynamically stable without obvious signs of obstruction or aspiration there is no need for further workup and she is otherwise safe for discharge History & Record Review Discussion w/independent historian: Other (Forensic Audit Expert) Lab Data Attestation: I reviewed the patient's lab results. Labs: Laboratory Results - last 24 hr 06/13/23 06:12 WBC 9.0 RBC 4.62 Hgb 14.3 Hct 43.6 MCV 94.4 MCH 31.0 MCHC 32.8 RDW Std Deviation 47.4 H RDW Coeff of Handy 13.5 Plt Count 321 MPV 10.5 Immature Gran % (Auto) 0.200 Neut % (Auto) 80.0 H Lymph % (Auto) 12.4 L [place] % (Auto) 4.6 Eos % (Auto) 2.5 Baso % (Auto) 0.3 Absolute Neuts (auto) 7.2 Absolute Lymphs (auto) 1.11 Nucleated RBC % 0 Sodium 142 Potassium 3.9 Chloride 105 Carbon Dioxide 32.0 Anion Gap 5 BUN 12 Creatinine 0.59 Estim Creat Clear Calc 85.58 Est GFR (MDRD) Af Amer 134 Est GFR (MDRD) Non-Af 111 BUN/Creatinine Ratio 20.5 H Glucose 109 H Calcium 9.3 Total Bilirubin 0.60 Direct Bilirubin 0.13 AST 11 L ALT 14 Alkaline Phosphatase 104 Total Protein 8.0 Albumin 3.9 Globulin 4.1 Lipase 27 Radiography Diagnostic Testing: Clinical Impression(s) from Imaging Studies Acute Abdomen Series 06/13/23 06:08 IMPRESSION: Negative chest and abdominal series. Electronically Signed: Nickie Ramirez MD at 8:17 EDT , Acute abdominal series with 1 view chest as interpreted by the emergency medicine physician reveals a nonspecific nonobstructive bowel gas pattern and chest x-ray component reveals no obvious infiltrate Discharge Plan Triage Chief Complaint: General Illness ED Provider: Haresh Curtis Dx/Rx/DC Orders Clinical Impression: Nausea and vomiting, Current use of fdc anticoagulation, Cerebral palsy Instructions: ED Gastroenteritis, Viral (Adult), ED Vomiting (Adult) Prescriptions: New ondansetron 4 mg tablet,disintegrating 4 mg PO TID PRN (Reason: nausea and vomiting) Qty: 21 0RF No Action loratadine 10 MG tablet 10 mg PO DAILY@0800 mirtazapine 7.5 MG tablet 7.5 mg PO QHS@2000 azelastine 6 ML drops 0.05 drp EACH EYE BID@0800,2000 Patient Comments: PLACE (1) DROP INTO EACH EYE TWICE DAILY NEEDEDFOR DRY EYE apixaban 5 MG tablet 5 mg PO BID doxycycline monohydrate 100 MG capsule 100 mg PO BID Qty: 20 0RF fluoxetine 40 mg capsule 40 mg PO DAILY@0800 melatonin 3 mg Tablet 4.5 mg PO QHS omeprazole 40 mg Capsule,Delayed Release(Dr/Ec) 40 mg PO DAILY@0700 levothyroxine 50 mcg tablet 50 mcg PO DAILY@0600 docusate sodium 100 mg Capsule 100 mg PO Q2D@1600 cholecalciferol (vitamin D3) [Vitamin D3] 25 mcg (1,000 unit) Tablet,Chewable 25 mcg PO DAILY@0800 ascorbic acid (vitamin C) 500 MG tablet 500 mg PO DAILY@0800 ferrous gluconate 324 MG tablet 324 mg PO DAILY@0800 prednisone 10 mg tablet See Rx Instructions .ROUTE .COMPLEX Rx Instructions: TAKE 3 TABLETS BY MOUTH ONCE DAILY FOR 2 DAYS THEN TAKE 2 TABLETS BY MOUTH ONCE DAILY FOR 2 DAYS THEN TAKE 1 TABLET BY MOUTH ONCE DAILY FOR 2 DAYS carboxymethylcellulose sodium [Refresh Tears] 0.5 % Drops 1 drp EACH EYE TID codeine-guaifenesin 10-100 mg/5 mL liquid See Rx Instructions .ROUTE .COMPLEX Rx Instructions: TAKE 5 MLS BY MOUTH 6 TIMES A DAY NEEDED FOR COUGH ipratropium-albuterol 0.5 mg-3 mg(2.5 mg base)/3 mL solution for nebulization 3 ml inhalation Q6H PRN (Reason: shortness of breath or wheezing) Qty: 90 0RF prednisone 20 mg tablet 20 mg PO BID Qty: 10 0RF Primary Care Provider: Rocky Barlow Chi Referrals: Rocky Barlow Chi, MD [Primary Care Provider] - Activity Restrictions/Additional Instructions: Your workup today does not show any signs of aspiration or small bowel obstruction. Symptoms are most likely related to a viral stomach infection based on your negative workup and exposure. Use the Zofran as directed to help control any further bouts of nausea and vomiting and return to the ER should you have any further concerns
[2023-06-13 06:36] LABS: AST(SGOT) 11 U/L (15-37); Alanine Aminotransfer ALT/SGPT 14 U/L (13-56); Albumin, Serum 3.9 g/dL (3.2-5.0); Alkaline Phosphatase 104 U/L (45-117); Anion Gap 5 (5-15); BUN 12 mg/dL (7-18); BUN/Creat Ratio 20.5 RATIO (10-20); Bilirubin, Direct 0.13 mg/dL (0.00-0.30); Calcium,Total 9.3 mg/dL (8.5-10.1); Chloride 105 mmol/L (98-107); Creatinine, Serum 0.59 mg/dL (0.55-1.02); EST Glomerular Filtration Rate 111 mL/min (>60); Est Glom Filt Rate - Afr Amer 134 mL/min (>60); Estimated Creatinine Clearance 85.58 ml/min; Globulin 4.1 g/dL (2.2-4.2); Glucose 109 mg/dL (74-106); Lipase 27 U/L (13-75); Potassium 3.9 mmol/L (3.5-5.1); Sodium Level 142 mmol/L (136-145)
[2023-06-13 07:51] VITALS: BP 120/81; PULSE 78; RESP 16; O2SAT 94
[2023-06-13 08:00] VITALS: BP 120/81; PULSE 88; RESP 18; TEMP 36.6; O2SAT 94
[2023-06-13] MEDS: Morphine 4 MG/ML Syringe IV (08:10)
[2023-06-13 08:36] VITALS: BP 129/82; PULSE 97; RESP 16; TEMP 36.6; O2SAT 98
== END 2023-06-13 08:54 | disposition home or self-care (01) ==
PROVIDERS: Emergency Provider Emergency Medicine; PCP Family Medicine Geriatric Medicine; Visit Provider Emergency Medicine
DX: R11.2 Nausea with vomiting, unspecified (principal); G80.9 Cerebral palsy, unspecified; E78.5 Hyperlipidemia, unspecified; E03.9 Hypothyroidism, unspecified; Z79.01 Long term (current) use of anticoagulants; Z79.890 Hormone replacement therapy; Z79.899 Other long term (current) drug therapy; Z86.711 Personal history of pulmonary embolism
CPT/HCPCS: 74022; 80048; 80076; 83690; 85025; 96361; 96374; 96375; 99282; J7030; A4216; J2405

== ENCOUNTER → 2023-06-19 | Outpatient (CLI) | payer MEDICARE, MEDICAID, SELFPAY ==
[2023-06-19 15:36] LABS: Absolute Lymphocyte Count 2.86 X10^3/uL (0.83-4.51); Absolute Neutrophil Count 3.3 X10^3/uL (2.0-7.7); Basophil# 0.07 X10^3/uL; Eosinophil# 0.27 X10^3/uL; Eosinophils% 3.9 % (0-5); Lymphocyte # 2.86 X10^3/ul (0.83-4.51); Lymphocyte % 41.1 % (19-41); Mean Corp Hgb Conc 31.7 g/dL (32-36); Mean Corpuscular Volume 97.6 fL (81-99); Mean Platelet Vol. 11.2 fl (6.2-12.0); Monocyte# 0.49 X10^3/uL; NRBC Flagged by Analyzer 0 % (0-5); Neutrophil # 3.25 X10^3/uL (2.7-7.7); Neutrophil % 46.7 % (47-70); POSITIVE COUNT YES; RBC Distribution Width CV 13.7 % (11.6-14.6); RBC Distribution Width SD 48.8 fl (35.1-43.9)
[2023-06-19 16:03] LABS: Differential Indicated SCAN CRITERIA MET
[2023-06-19 16:22] LABS: Anisocytosis RARE; Macrocytosis RARE; Platelet Estimate ADEQUATE (ADEQ); Red Cell Morphology N CHROM NORMAL (NORM C&C)
[2023-06-19 17:39] LABS: Vitamin D,25 Hydroxy 50.8 ng/mL
[2023-06-19 17:47] LABS: ALB/GLOB Ratio 0.9 RATIO (0.9-2.4); AST(SGOT) 17 U/L (15-37); Alanine Aminotransfer ALT/SGPT 15 U/L (13-56); Albumin, Serum 3.7 g/dL (3.2-5.0); Alkaline Phosphatase 82 U/L (45-117); Anion Gap 4 (5-15); BUN 8 mg/dL (7-18); BUN/Creat Ratio 13.7 RATIO (10-20); Calcium,Total 9.1 mg/dL (8.5-10.1); Chloride 107 mmol/L (98-107); Cholesterol 178 mg/dL (200); Creatinine, Serum 0.58 mg/dL (0.55-1.02); EST Glomerular Filtration Rate 111 mL/min (>60); Est Glom Filt Rate - Afr Amer 134 mL/min (>60); Globulin 3.9 g/dL (2.2-4.2); Glucose 92 mg/dL (74-106); High Density Lipoprotein 47 mg/dL; Potassium 4.2 mmol/L (3.5-5.1); Protein, Total 7.6 g/dL (6.4-8.2); Sodium Level 139 mmol/L (136-145); Thyroid Stim Hormone (TSH) 2.27 uIU/mL (0.358-3.74); Triglycerides 110 mg/dL; Very Low Density Lipoprotein 22 mg/dL (5-40)
== END | disposition home or self-care (01) ==
LOC: POLAB3 15:14
PROVIDERS: PCP Family Medicine Geriatric Medicine; Visit Provider Family Medicine Geriatric Medicine
DX: R53.83 Other fatigue (principal); E03.9 Hypothyroidism, unspecified; E78.5 Hyperlipidemia, unspecified; E55.9 Vitamin D deficiency, unspecified
CPT/HCPCS: 36415; 80053; 80061; 82306; 84443; 85025

== ENCOUNTER 2023-07-21 08:17 | Emergency (ER) | payer MEDICARE, MEDICAID, SELFPAY ==
[2023-07-21 08:18] VITALS: BP 127/94; PULSE 118; RESP 20; TEMP 36.6; O2SAT 93
[2023-07-21 08:21] VITALS: BP 127/94; PULSE 118; RESP 20; TEMP 36.6; O2SAT 93
--- NOTE | 2023-07-21 08:31 | RAD_ITS ---
INDICATION: cough EXAMINATION/TECHNIQUE: X-RAY - XR Chest 2 Views COMPARISON: Prior study dated: 06/13/2023 FINDINGS: LINES/DEVICES: Monitoring devices overlying the right lower chest. LUNGS: No consolidation, edema or effusion. No pneumothorax. MEDIASTINUM AND CARDIOVASCULAR STRUCTURES: Borderline cardiac silhouette. BONES AND SOFT TISSUES: Increased kyphosis of the thoracic spine. No demonstrated acute osseous changes. RAD/Chest PA and Lateral IMPRESSION: No radiographic evidence of acute cardiopulmonary disease. Electronically Signed: Kvng Cotton MD at 8:59 EDT ,
--- NOTE | 2023-07-21 08:38 | EDS_ITS ---
HPI HPI - URI History of Present Illness Chief Complaint: Cough Informant: patient and other (Caregiver) Onset/Context/Timing Onset: Today Current Severity: Mild Maximum Severity: Mild Associated Symptoms Associated Symptoms: Positive for Nonproductive cough Narrative Narrative: 63-year-old female history of cerebral palsy which she is wheelchair-bound. Last night she was drinking a beverage and had nausea and vomiting. The caregiver brought her in and is concerned she may have aspirated because she now has a cough. Cough is nonproductive. She has had no fever. Patient is very limited in her ability to communicate. Prior similar symptoms: Yes Recent Illness/Hospitalization: No ROS ROS ED ROS Narrative Nonproductive cough. Very limited due to the patient's overall medical condition. Review of Systems ROS Unobtainable: Denies due to encephalopathy Constitutional Constitutional ED: Denies chills or fever(s) Eyes Eyes: Denies blurry vision ENT ENT ED: Denies ear pain Cardiovascular Cardiovascular: Denies chest pain Respiratory/Chest Respiratory/Chest: Denies cough or dyspnea Gastrointestinal Gastrointestinal: Reports nausea, vomiting and other Details: Nausea and vomiti ng x 1 last night. ; Denies abdominal pain Genitourinary Genitourinary ED: Denies dysuria or hematuria Musculoskeletal Musculoskeletal: Denies arthralgias Integumentary Denies abscess Neurologic Neurologic: Reports headache(s) Allergic/Immunologic Allergic/Immunologic ED: Denies mouth swelling or tongue swelling PFSH PFSH Medical History Allergic rhinitis Barretts esophagus Cerebral palsy Depression Fecal impaction Gastroenteritis GERD (gastroesophageal reflux disease) Hyperlipidemia Hypothyroidism Insomnia metal gavi rt leg neurostimulater Pacemaker Pulmonary embolism URI (upper respiratory infection) Vitamin D deficiency Home Medications loratadine 10 mg tablet 10 mg PO DAILY@0800 ALLERGIES 09/10/14 [History Last Taken 01/02/22] mirtazapine 7.5 mg tablet 7.5 mg PO QHS@1999 DEPRESSION 05/19/17 [History Last Taken 01/01/22] azelastine 0.05 % eye drops 0.05 drp EACH EYE BID@0800,1999 DRY EYES 08/08/18 [History Last Taken 01/02/22] apixaban 5 mg tablet 5 mg PO BID BLOOD THINNER 11/23/18 [History Last Taken 01/02/22] doxycycline monohydrate 100 mg capsule 100 mg PO BID #20 CAPSULES 02/03/21 [Rx Last Taken Unknown] ascorbic acid (vitamin C) 500 mg tablet 500 mg PO DAILY@0800 SUPPLEMENT 01/02/22 [History Last Taken 01/02/22] carboxymethylcellulose sodium 0.5 % eye drops (Refresh Tears) 1 drp EACH EYE TID 01/02/22 [History Last Taken 01/02/22] cholecalciferol (vitamin D3) 25 mcg (1,000 unit) chewable tablet (Vitamin D3) 25 mcg PO DAILY@0800 SUPPLEMENT 01/02/22 [History Last Taken 01/02/22] codeine 10 mg-guaifenesin 100 mg/5 mL oral liquid See Rx Instructions .Route .COMPLEX 01/02/22 [History Last Taken Unknown] docusate sodium 100 mg capsule 100 mg PO Q2D@1600 STOOL 01/02/22 [History Last Taken 01/01/22] ferrous gluconate 324 mg (38 mg iron) tablet 324 mg PO DAILY@0800 SUPPLEMENT 01/02/22 [History Last Taken 01/02/22] fluoxetine 40 mg capsule 40 mg PO DAILY@0800 DEPRESSION 01/02/22 [History Last Taken 01/02/22] levothyroxine 50 mcg tablet 50 mcg PO DAILY@0600 THYROID 01/02/22 [History Last Taken 01/02/22] melatonin 3 mg tablet 4.5 mg PO QHS SLEEP 01/02/22 [History Last Taken 01/01/22] omeprazole 40 mg capsule,delayed release 40 mg PO DAILY@0700 GERD 01/02/22 [History Last Taken 01/02/22] prednisone 10 mg tablet See Rx Instructions .Route .COMPLEX 01/02/22 [History Last Taken Unknown] ipratropium 0.5 mg-albuterol 3 mg (2.5 mg base)/3 mL nebulization soln 3 ml inhalation Q6H PRN shortness of breath or wheezing #90 mL 01/03/22 [Rx Last Taken Unknown] prednisone 20 mg tablet 20 mg PO BID #10 tabs 08/15/22 [Rx Last Taken Unknown] ondansetron 4 mg disintegrating tablet 4 mg PO TID PRN nausea and vomiting #21 tabs 06/13/23 [Rx Last Taken Unknown] Allergy/AdvReac Type Severity Reaction Status Date / Time amoxicillin trihydrate AdvReac Unknown Verified 06/13/23 05:54 [From Augmentin] potassium clavulanate AdvReac Unknown Verified 06/13/23 05:54 [From Augmentin] Surgical History Hx of cataract removal with insertion of prosthetic lens Social History Smoking Status: Never smoker substance use type: does not use EXAM Physical Exam Narrative Exam Narrative: 63-year-old female vital signs are stable. She is afebrile. She does not look septic or toxic. She is sitting upright in her motorized wheelchair. Caregiver is with her. Pulse ox 93% on room air no signs hypoxia. H EENT exam moist mucous membranes. Neck nontender. Lungs she is a dry cough. However there is no rales rhonchi's or wheezing. Breath sounds are equal and symmetrical. Heart tachycardic 110 no murmur. Chest wall and ribs nontender. Abdomen soft nontender. She has limited strength and range of motion with both upper extremities due to her cerebral palsy. There is no edema. Neurologically her eyes are open and she is awake. She can answer yes or no to limited questions or shake her head. This is her baseline according to her caregiver. Const Vital Signs: 07/21/23 08:18 07/21/23 08:44 07/21/23 08:21 Temperature 97.8 F 97.8 F Temperature Source Temporal Temporal Pulse Rate 118 H 118 H Respiratory Rate 20 H 20 H Respiratory Effort Normal Non-Labored Respiratory Depth Normal Respiratory Pattern Normal Blood Pressure 127/94 H 127/94 H Blood Pressure Mean 105 105 Pulse Ox 93 93 Oxygen Delivery Method Room Air Room Air Room Air Positive well nourished and well developed; Negative for cachectic or contractures General Appearance ED: well developed and NAD; Negative for cachectic, contr actures, cyanotic, diaphoretic or pallor Nutritional Appearance: Negative for cachectic HEENT Reports moist mucous membranes; Denies dry mucous membranes normocephalic and atraumatic; Negative for scalp tenderness Face and Sinus: Negative for sinus tenderness Mouth ED: No dry mucous membranes Mouth: No dry mucous membranes Teeth and Gingiva: Negative for caries Throat: posterior oropharynx normal Eyes PERRL and EOMs intact bilaterally General Eye ED: Negative for pale conjunctiva or scleral icterus Neck no lymphadenopathy, supple, no meningeal signs and no JVD General: Negative for anterior neck swelling, lymphadenopathy or other Resp normal respiratory effort and clear to auscultation bilaterally Resp Narrative: Dry cough. Effort and Inspection: Negative for retractions Auscultation: Negative for rales, rhonchi, wheezes or diminished lung sounds Cardio S1 normal heart sound, S2 normal heart sound and no murmurs Rate: tachycardic Rhythm: regular rhythm; Negative for abnormal rhythm GI non-tender, non-distended and no masses Inspection: Negative for abdominal distention Palpation: soft; Negative for tender or guarding Back/Spine no CVA tenderness and normal ROM Extremity Negative for normal to inspection or full ROM Extremity Narrative: Limited range of motion. Generalized weakness. History of cerebral palsy. Neuro No oriented x3 Neuro Narrative: Patient does not really speak. She can answer limited yes and no. Sensorium / Orientation: alert and oriented to person Motor Exam: general weakness Psych mental status grossly normal Appearance: Negative for other Attitude: No agitated Mood & Affect: Negative for depressed, anxious or tearful Skin General Skin Exam: Negative for jaundice or pallor Rashes: no rashes MDM MDM MDM Narrative Medical decision making narrative: 63-year-old female with severe CP question is that she aspirated last night after she threw up. X-ray being obtained. I have already spoken to the caregiver and let her know that you may not see any significant changes with an aspiration for up to 72 hours. Repeat exam at 9:30 AM unchanged. I discussed x-ray results with her caregiver. She will be discharged home. Follow-up with primary care physician if not improving or return if worse. At this time she does not require antibiotics. History & Record Review Discussion w/independent historian: Patient and Other (Caregiver with the patient.) Additional record(s) reviewed:: Prior inpatient record, Prior outpatient record, Prior ED visit and Prior labs Radiography Diagnostic Testing: Clinical Impression(s) from Imaging Studies Chest X-Ray 07/21/23 08:31 IMPRESSION: No radiographic evidence of acute cardiopulmonary disease. Electronically Signed: Kvng Cotton MD at 8:59 EDT , Discharge Plan Triage Chief Complaint: Cough ED Provider: Dominguez Bolton Dx/Rx/DC Orders Clinical Impression: History of cerebral palsy, Cough Prescriptions: No Action loratadine 10 MG tablet 10 mg PO DAILY@0800 mirtazapine 7.5 MG tablet 7.5 mg PO QHS@2000 azelastine 6 ML drops 0.05 drp EACH EYE BID@0800,2000 Patient Comments: PLACE (1) DROP INTO EACH EYE TWICE DAILY NEEDEDFOR DRY EYE apixaban 5 MG tablet 5 mg PO BID doxycycline monohydrate 100 MG capsule 100 mg PO BID Qty: 20 0RF fluoxetine 40 mg capsule 40 mg PO DAILY@0800 melatonin 3 mg Tablet 4.5 mg PO QHS omeprazole 40 mg Capsule,Delayed Release(Dr/Ec) 40 mg PO DAILY@0700 levothyroxine 50 mcg tablet 50 mcg PO DAILY@0600 docusate sodium 100 mg Capsule 100 mg PO Q2D@1600 cholecalciferol (vitamin D3) [Vitamin D3] 25 mcg (1,000 unit) Tablet,Chewable 25 mcg PO DAILY@0800 ascorbic acid (vitamin C) 500 MG tablet 500 mg PO DAILY@0800 ferrous gluconate 324 MG tablet 324 mg PO DAILY@0800 prednisone 10 mg tablet See Rx Instructions .ROUTE .COMPLEX Rx Instructions: TAKE 3 TABLETS BY MOUTH ONCE DAILY FOR 2 DAYS THEN TAKE 2 TABLETS BY MOUTH ONCE DAILY FOR 2 DAYS THEN TAKE 1 TABLET BY MOUTH ONCE DAILY FOR 2 DAYS carboxymethylcellulose sodium [Refresh Tears] 0.5 % Drops 1 drp EACH EYE TID codeine-guaifenesin 10-100 mg/5 mL liquid See Rx Instructions .ROUTE .COMPLEX Rx Instructions: TAKE 5 MLS BY MOUTH 6 TIMES A DAY NEEDED FOR COUGH ipratropium-albuterol 0.5 mg-3 mg(2.5 mg base)/3 mL solution for nebulization 3 ml inhalation Q6H PRN (Reason: shortness of breath or wheezing) Qty: 90 0RF prednisone 20 mg tablet 20 mg PO BID Qty: 10 0RF ondansetron 4 mg tablet,disintegrating 4 mg PO TID PRN (Reason: nausea and vomiting) Qty: 21 0RF Primary Care Provider: Rocky Barlow Chi Referrals: Rocky Barlow Chi, MD [Primary Care Provider] - 1 Week if not improving Activity Restrictions/Additional Instructions: Chest x-ray currently shows no signs of pneumonia. She may or may not have aspirated often signs do not show up for several days on the x-ray. At this time she does not need antibiotics. Follow-up with her doctor if she is not getting better. Return to the emergency department if she develops a fever or is worse. Disposition Disposition: Home, Self Care
[2023-07-21 08:44] VITALS: O2SAT 96
[2023-07-21 09:34] VITALS: BP 132/79; PULSE 86; RESP 17; TEMP 36.7; O2SAT 95
== END 2023-07-21 09:34 | disposition home or self-care (01) ==
PROVIDERS: Emergency Provider Emergency Medicine; PCP Family Medicine Geriatric Medicine; Visit Provider Emergency Medicine
DX: R05.9 Cough, unspecified (principal); G80.9 Cerebral palsy, unspecified; R11.2 Nausea with vomiting, unspecified; Z99.3 Dependence on wheelchair; R51.9 Headache, unspecified; K21.9 Gastro-esophageal reflux disease without esophagitis; E78.5 Hyperlipidemia, unspecified
CPT/HCPCS: 71046; 99282

== ENCOUNTER → 2023-07-23 | Outpatient (CLI) | payer MEDICARE, MEDICAID, SELFPAY ==
--- NOTE | 2023-07-23 15:30 | RAD_ITS ---
HISTORY: WHEEZING. TECHNIQUE: XR Chest 2 Views. COMPARISON: 07/21/2023. FINDINGS: CARDIOMEDIASTINAL BORDERS: Cardiac silhouette within normal limits in size. Decreased gaseous distention of the esophagus with hiatal hernia again noted. LUNGS: Chronic low lung volumes with scarring in the lung bases. PLEURA: No pleural effusion or pneumothorax seen. OSSEOUS STRUCTURES: Mild degenerative change. RAD/Chest PA and Lateral IMPRESSION: No acute cardiopulmonary process identified. Electronically Signed: Soumya Pham MD at 15:59 EDT ,
== END | disposition home or self-care (01) ==
LOC: RAD 15:08
PROVIDERS: PCP Family Medicine Geriatric Medicine; Referring Provider Family Medicine Geriatric Medicine; Visit Provider Family Medicine Geriatric Medicine
DX: R06.2 Wheezing (principal)
CPT/HCPCS: 71046

== ENCOUNTER 2023-09-23 13:10 | Emergency (ER) | payer MEDICARE, MEDICAID, SELFPAY ==
[2023-09-23 13:10] VITALS: BP 163/119; PULSE 97; RESP 22; TEMP 36.1; O2SAT 92
--- NOTE | 2023-09-23 14:06 | ED.VIS.LOWEX ---
HPI History of Present Illness Chief Complaint: Lower Extremity Injury Narrative Narrative: History and physical limited secondary to cerebral palsy. Patient presents with injury to her left foot that she sustained reportedly yesterday evening. She presents with 2 workers from the skilled nursing where she resides. They state that they were just told about an hour ago that the patient injured her left foot yesterday when she was using her wheelchair and ran into a kitchen chair. She complains of left foot pain on palpation. Is worse with movement as well. No other reported injury. [facility] Medical History Hypothyroidism Cerebral palsy History of airway aspiration Health care maintenance Anxiety and depression History of pulmonary embolism Gastroenteritis URI (upper respiratory infection) neurostimulater Pacemaker metal gavi rt leg Hyperlipidemia Insomnia Fecal impaction Barretts esophagus Pulmonary embolism Vitamin D deficiency Allergic rhinitis GERD (gastroesophageal reflux disease) Depression Home Medications ?Medication ?Instructions ?Recorded ?Last Taken ?Type loratadine 10 mg tablet 10 mg PO DAILY@0800 ALLERGIES 09/10/14 01/02/22 History mirtazapine 7.5 mg tablet 7.5 mg PO QHS@1999 DEPRESSION 05/19/17 01/01/22 History azelastine 0.05 % eye drops 0.05 drp EACH EYE BID@0808/08/18 01/02/22 History DRY EYES apixaban 5 mg tablet 5 mg PO BID BLOOD THINNER 11/23/18 01/02/22 History ascorbic acid (vitamin C) 500 mg 500 mg PO DAILY@0800 SUPPLEMENT 01/02/22 01/02/22 History tablet carboxymethylcellulose sodium 0.5 1 drp EACH EYE TID 01/02/22 01/02/22 History % eye drops (Refresh Tears) cholecalciferol (vitamin D3) 25 25 mcg PO DAILY@0800 SUPPLEMENT 01/02/22 01/02/22 History mcg (1,000 unit) chewable tablet (Vitamin D3) ferrous gluconate 324 mg (38 mg 324 mg PO DAILY@0800 SUPPLEMENT 01/02/22 01/02/22 History iron) tablet levothyroxine 50 mcg tablet 50 mcg PO DAILY@0600 THYROID 01/02/22 01/02/22 History omeprazole 40 mg capsule,delayed 40 mg PO DAILY@0700 GERD 01/02/22 01/02/22 History release ondansetron 4 mg disintegrating 4 mg PO TID PRN nausea and 06/13/23 Unknown Rx tablet vomiting #21 tabs GENERAL PROTECTION LOTION topical 07/31/23 Unknown History acetaminophen 160 mg/5 mL oral 500 mg PO Q6H PRN 07/31/23 Unknown History elixir bisacodyl 10 mg/30 mL enema (Fleet 5 mg NC DAILY PRN 07/31/23 Unknown History Bisacodyl) bismuth subsalicylate 525 mg/15 mL 1,050 mg PO .4X DAILY PRN 07/31/23 Unknown History oral suspension (Pepto-Bismol Max St) carbamide peroxide 6.5 % ear drops 10 drp otic (ear) DAILY 07/31/23 Unknown History carboxymethylcellulose sodium 0.5 1 drp ophthalmic (eye) 4-6XD PRN 07/31/23 Unknown History % eye drops (Refresh Tears) citalopram 10 mg tablet 10 mg PO DAILY 07/31/23 Unknown History citalopram 20 mg tablet 20 mg PO DAILY 07/31/23 Unknown History docusate sodium 100 mg capsule 100 mg PO Q2D@1600 STOOL 07/31/23 Unknown History guaifenesin 100 mg/5 mL oral liquid 200 mg PO Q4H PRN 07/31/23 Unknown History ipratropium 0.5 mg-albuterol 3 mg 3 ml inhalation Q4H PRN shortness 07/31/23 Unknown History (2.5 mg base)/3 mL nebulization of breath or wheezing soln melatonin 3 mg tablet 4.5 mg PO QHS PRN SLEEP 07/31/23 Unknown History neomycin-bacitracn Zn-polymyx 3.5 1 applic topical .4X DAILY PRN 07/31/23 Unknown History mg-400 unit-5,000 unit/gram top oint (Triple Antibiotic) terbinafine HCl 1 % topical cream 1 applic topical BID 07/31/23 Unknown History Allergy/AdvReac Type Severity Reaction Status Date / Time amoxicillin trihydrate (From AdvReac Unknown Verified 09/23/23 13:10 Augmentin) potassium clavulanate (From AdvReac Unknown Verified 09/23/23 13:10 Augmentin) Family History Father Pulmonary embolism Alcoholism Mother CVA (cerebral vascular accident) Surgical History Hx of cataract removal with insertion of prosthetic lens Social History Smoking Status: Never smoker alcohol intake: current alcohol intake frequency: 0-2 drinks per day substance use type: does not use and other details: THC LAST USED ON 07/20/23 seatbelt use: always ROS ROS ED ROS Narrative Limited secondary to cerebral palsy. Obtained through skilled nursing workers. Focused review of systems shows that the patient is having left foot pain. Tender to palpation. Worker states that she is keeping her left ankle/foot dorsiflexed. EXAM Physical Exam Narrative Exam Narrative: Afebrile. Vital signs noted. Sitting in wheelchair comfortably. Regular rate and rhythm. Lungs clear to auscultation bilaterally. Abdomen soft nontender. Diffuse tenderness to palpation left foot. Palpable dorsalis pedis pulse. No obvious deformity. Const Vital Signs: 09/23/23 13:10 Temperature 96.9 F L Temperature Source Temporal Pulse Rate 97 Respiratory Rate 22 H Blood Pressure 163/119 H Blood Pressure Mean 133 Pulse Ox 92 Oxygen Delivery Method Room Air MDM MDM MDM Narrative Medical decision making narrative: The differential diagnosis is ankle sprain versus foot contusion versus fracture foot. Patient was administered oral liquid Tylenol. She had already been given ice packs. X-rays obtained of the left foot and 3 views to rule out fracture. They were interpreted by myself independently. On my independent interpretation, I see no evidence of an acute fracture. I reviewed the radiology report which confirms my independent interpretation. Patient was placed in an Rai wrap and they will continue [id number] medications such as Tylenol, ice, and elevation of her left foot. She was referred to podiatry as needed. Mother is at the bedside, and requested a postoperative shoe which I think is reasonable because although she is nonweightbearing, she does have to bear weight to transfer from her bed to her wheelchair. She will also be placed in a postoperative shoe. I do not feel she requires observation or admission. Return instructions to the emergency department were reviewed. Disposition is discharged home in stable condition. History & Record Review Discussion w/independent historian: Family and Other (assisted caregiver) Radiography X-Ray: Read by ED Physician Diagnostic Testing: Clinical Impression(s) from Imaging Studies Foot X-Ray 09/23/23 14:18 IMPRESSION: Diffuse soft tissue swelling. Osteopenia of the visualized bony structures. Electronically Signed: Colten Justice MD at 14:31 EDT Reading Location ID and State: [facility] / [place] , Service support , Discharge Plan Triage Chief Complaint: Lower Extremity Injury ED Provider: Gregory Coleman Dx/Rx/DC Orders Clinical Impression: Contusion of foot, left, Sprain of foot, left, Cerebral palsy Instructions: ED Foot Contusion, ED Foot Sprain Prescriptions: No Action citalopram 20 mg tablet 20 mg PO DAILY Rx Instructions: TAKE WITH 10 MG TAB TO = 30 MG DAILY citalopram 10 mg tablet 10 mg PO DAILY Rx Instructions: TAKE WITH 20 MG TAB TO =30 MG DAILY ipratropium-albuterol 0.5 mg-3 mg(2.5 mg base)/3 mL solution for nebulization 3 ml inhalation Q4H PRN (Reason: shortness of breath or wheezing) Pepto-Bismol Max St 525 mg/15 mL suspension 1,050 mg PO .4X DAILY PRN Rx Instructions: FOR UPSET STOMACH; do not exceed 8 doses in a 24 hour period Triple Antibiotic 3.5mg-400 unit- 5,000 unit/gram ointment 1 applic topical .4X DAILY PRN Rx Instructions: FOR MINOR CUTS, SCRAPES, LOPEZ acetaminophen 160 mg/5 mL elixir 500 mg PO Q6H PRN Rx Instructions: PAIN OR FEVER>100.1 GENERAL PROTECTION LOTION topical Rx Instructions: APPLY BEFORE SUN EXPOSURE AND REAPPLY NECESSARY Fleet Bisacodyl 10 mg/30 mL enema 5 mg NC DAILY PRN Rx Instructions: ON DAY FIVE WITHOUT A BOWEL MOVEMENT terbinafine HCl 1 % cream 1 applic topical BID Rx Instructions: APPLY UNDER BREAST OR IN SKIN FOLDS FOR REDNESS guaifenesin 100 mg/5 mL liquid 200 mg PO Q4H PRN Rx Instructions: COUGH OR THICK PHLEGM/SECRETIONS carboxymethylcellulose sodium [Refresh Tears] 0.5 % drops 1 drp ophthalmic (eye) 4-6XD PRN Rx Instructions: COMPLAINT OF DRY EYES carbamide peroxide 6.5 % drops 10 drp otic (ear) DAILY Rx Instructions: PLACE DROPS IN EACH EAR FOR 20 MINUTES BY KEEPING THE HEAD TILTED. TAKE TWICE DAILY FOR 4 DAYS EVERY MONTH. loratadine 10 MG tablet 10 mg PO DAILY@0800 mirtazapine 7.5 MG tablet 7.5 mg PO QHS@2000 azelastine 6 ML drops 0.05 drp EACH EYE BID@0800,2000 Patient Comments: PLACE (1) DROP INTO EACH EYE TWICE DAILY NEEDEDFOR DRY EYE apixaban 5 MG tablet 5 mg PO BID omeprazole 40 mg Capsule,Delayed Release(Dr/Ec) 40 mg PO DAILY@0700 levothyroxine 50 mcg tablet 50 mcg PO DAILY@0600 cholecalciferol (vitamin D3) [Vitamin D3] 25 mcg (1,000 unit) Tablet,Chewable 25 mcg PO DAILY@0800 ascorbic acid (vitamin C) 500 MG tablet 500 mg PO DAILY@0800 ferrous gluconate 324 MG tablet 324 mg PO DAILY@0800 carboxymethylcellulose sodium [Refresh Tears] 0.5 % Drops 1 drp EACH EYE TID docusate sodium 100 mg capsule 100 mg PO Q2D@1600 Rx Instructions: MAY HOLD AFTER ONE LOOSE STOOL melatonin 3 mg tablet 4.5 mg PO QHS PRN (Reason: SLEEP) Rx Instructions: IF PATIENT IS NOT SLEEPING BY 9 PM ondansetron 4 mg tablet,disintegrating 4 mg PO TID PRN (Reason: nausea and vomiting) Qty: 21 0RF Primary Care Provider: Michelle Marroquin Referrals: Michelle Marroquin MD [Primary Care Provider] - 1 Week if not improving Bartolo Bañuelos DPM [Med Staff - Active Staff] - As Needed Activity Restrictions/Additional Instructions: Wear postop shoe to help with transfer to wheelchair and weightbearing. Continue [id number] Tylenol as needed for pain, ice and elevation as needed. Print Language: Kuwaiti Disposition Disposition: Home, Self Care
--- NOTE | 2023-09-23 14:18 | RAD_ITS ---
STUDY: X-RAY - LEFT FOOT CLINICAL: Female, 63 years old. Injury of the great toe. TECHNIQUE: 3 view(s) of the foot. COMPARISON: None. FINDINGS: There is demineralization of the rear and midfoot bones. Normal visualized subtalar, talonavicular, calcaneocuboid, tarsal and tarsometatarsal articulations. There is demineralization of the metatarsi. Normal metatarsophalangeal joint of the great toe. Normal tibial and fibular sesamoid bones. Normal interphalangeal joint of the great toe. Normal phalanges of the great toe. Normal second through fifth metatarsophalangeal joints. Normal interphalangeal joints and phalanges of the lesser toes. Diffuse soft tissue swelling. RAD/Foot min 3 Views IMPRESSION: Diffuse soft tissue swelling. Osteopenia of the visualized bony structures. Electronically Signed: Colten Justice MD at 14:31 EDT ,
[2023-09-23] MEDS: Acetaminophen 650 MG/20 ML UDC PO (14:20)
[2023-09-23 15:16] VITALS: BP 140/89; PULSE 81; RESP 20; TEMP 36.1; O2SAT 92
== END 2023-09-23 15:19 | disposition home or self-care (01) ==
PROVIDERS: Emergency Provider Emergency Medicine; PCP Internal Medicine; Visit Provider Emergency Medicine
DX: S93.602A Unspecified sprain of left foot, initial encounter (principal); G80.9 Cerebral palsy, unspecified; W22.8XXA Striking against or struck by other objects, initial encounter; E78.5 Hyperlipidemia, unspecified; E03.9 Hypothyroidism, unspecified; K21.9 Gastro-esophageal reflux disease without esophagitis; Z79.01 Long term (current) use of anticoagulants; Z79.890 Hormone replacement therapy; Z79.899 Other long term (current) drug therapy
CPT/HCPCS: 73630; 99283

== ENCOUNTER 2023-12-21 13:33 | Emergency (ER) | payer MEDICARE, MEDICAID, SELFPAY ==
[2023-12-21 13:38] VITALS: BP 153/93; PULSE 81; RESP 18; TEMP 36.8; O2SAT 96; BMI 26.9
--- NOTE | 2023-12-21 14:14 | ED.VIS.LOWEX ---
HPI History of Present Illness HPI Narrative: Patient presents with right hip injury that occurred yesterday. Patient is nonambulatory. Patient was being helped to a bedside commode by home health staff. Patient slid down to the floor. Patient was helped up and checked by EMS yesterday. Patient did not require transportation yesterday. Home health staff today noted that the patient was still complaining of pain with movement of her right hip. Home health caregiver called EMS for further evaluation. Patient was then transferred to the emergency department. Chief Complaint: Lower Extremity Injury Informant: other (Home health caregiver) Limited: other (Patient is nonverbal) Occured/Mechanism Mechanism/Context: Yes fall Onset/Context/Timing Onset: Yesterday Context: Sudden Onset Timing: Continuous Worsened by: Movement Relieved by: Nothing Associated Symptoms Associated Symptoms: Negative for Parasthesia, Weakness or Loss of Funtion PFSH [facility] Medical History Hypothyroidism Cerebral palsy History of airway aspiration Health care maintenance Anxiety and depression History of pulmonary embolism Gastroenteritis URI (upper respiratory infection) neurostimulater Pacemaker metal gavi rt leg Hyperlipidemia Insomnia Fecal impaction Barretts esophagus Pulmonary embolism Vitamin D deficiency Allergic rhinitis GERD (gastroesophageal reflux disease) Depression Home Medications ?Medication ?Instructions ?Recorded ?Last Taken ?Type loratadine 10 mg tablet 10 mg PO DAILY@0800 ALLERGIES 09/10/14 01/02/22 History mirtazapine 7.5 mg tablet 7.5 mg PO QHS@1999 DEPRESSION 05/19/17 01/01/22 History azelastine 0.05 % eye drops 0.05 drp EACH EYE BID@0800,199908/08/18 01/02/22 History DRY EYES apixaban 5 mg tablet 5 mg PO BID BLOOD THINNER 11/23/18 01/02/22 History ascorbic acid (vitamin C) 500 mg 500 mg PO DAILY@0800 SUPPLEMENT 01/02/22 01/02/22 History tablet carboxymethylcellulose sodium 0.5 1 drp EACH EYE TID 01/02/22 01/02/22 History % eye drops (Refresh Tears) cholecalciferol (vitamin D3) 25 25 mcg PO DAILY@0800 SUPPLEMENT 01/02/22 01/02/22 History mcg (1,000 unit) chewable tablet (Vitamin D3) ferrous gluconate 324 mg (38 mg 324 mg PO DAILY@0800 SUPPLEMENT 01/02/22 01/02/22 History iron) tablet levothyroxine 50 mcg tablet 50 mcg PO DAILY@0600 THYROID 01/02/22 01/02/22 History omeprazole 40 mg capsule,delayed 40 mg PO DAILY@0700 GERD 01/02/22 01/02/22 History release ondansetron 4 mg disintegrating 4 mg PO TID PRN nausea and 06/13/23 Unknown Rx tablet vomiting #21 tabs GENERAL PROTECTION LOTION topical 07/31/23 Unknown History acetaminophen 160 mg/5 mL oral 500 mg PO Q6H PRN 07/31/23 Unknown History elixir bisacodyl 10 mg/30 mL enema (Fleet 5 mg ME DAILY PRN 07/31/23 Unknown History Bisacodyl) bismuth subsalicylate 525 mg/15 mL 1,050 mg PO .4X DAILY PRN 07/31/23 Unknown History oral suspension (Pepto-Bismol Max St) carbamide peroxide 6.5 % ear drops 10 drp otic (ear) DAILY 07/31/23 Unknown History carboxymethylcellulose sodium 0.5 1 drp ophthalmic (eye) 4-6XD PRN 07/31/23 Unknown History % eye drops (Refresh Tears) citalopram 10 mg tablet 10 mg PO DAILY 07/31/23 Unknown History citalopram 20 mg tablet 20 mg PO DAILY 07/31/23 Unknown History docusate sodium 100 mg capsule 100 mg PO Q2D@1600 STOOL 07/31/23 Unknown History guaifenesin 100 mg/5 mL oral liquid 200 mg PO Q4H PRN 07/31/23 Unknown History ipratropium 0.5 mg-albuterol 3 mg 3 ml inhalation Q4H PRN shortness 07/31/23 Unknown History (2.5 mg base)/3 mL nebulization of breath or wheezing soln terbinafine HCl 1 % topical cream 1 applic topical BID PRN 10/08/23 Unknown History hydrocodone-acetaminophen 5-325mg 1 tab PO Q6H PRN PRN pain, severe 12/21/23 Unknown Rx 5mg-325mg 3 days #10 TABLETS Allergy/AdvReac Type Severity Reaction Status Date / Time amoxicillin trihydrate (From AdvReac Unknown Verified 12/21/23 13:41 Augmentin) potassium clavulanate (From AdvReac Unknown Verified 12/21/23 13:41 Augmentin) Family History Father Pulmonary embolism Alcoholism Mother CVA (cerebral vascular accident) Surgical History Hx of cataract removal with insertion of prosthetic lens Social History Smoking Status: Never smoker alcohol intake: current alcohol intake frequency: 0-2 drinks per day substance use type: does not use and other details: THC LAST USED ON 07/20/23 seatbelt use: always ROS ROS ED Review of Systems ROS Unobtainable: due to mental condition EXAM Physical Exam Const Vital Signs: 12/21/23 13:38 Temperature 98.3 F Temperature Source Oral Pulse Rate 81 Respiratory Rate 18 Blood Pressure 153/93 H Blood Pressure Mean 113 Pulse Ox 96 Oxygen Delivery Method Room Air Positive well nourished and well developed General Appearance ED: well developed HEENT Reports moist mucous membranes Neck full ROM and supple Resp normal respiratory effort and clear to auscultation bilaterally Cardio regular rate and regular rhythm GI non-distended Palpation: soft Extremity Extremity Narrative: There is tenderness and guarding with examination of the right hip. There is no obvious deformity noted. There is a well-healed incision over the lateral aspect of the proximal femur. There is no erythema or warmth noted. Range of motion was limited in all motions of the right hip secondary to pain. There are no apparent sensory deficits noted. Neuro moves all extremities and no sensory deficits noted Sensorium / Orientation: alert Psych Speech: other Patient is nonverbal MDM MDM MDM Narrative Medical decision making narrative: Differential diagnosis includes hip fracture, contusion, and pelvic fracture. X-rays of the right hip and pelvis will be obtained to assess for fracture. Radiography Diagnostic Testing: Clinical Impression(s) from Imaging Studies Hip/Pelvis X-Ray 12/21/23 14:40 IMPRESSION: Degenerative findings in the right hip. Electronically Signed: Nick Choudhury MD at 15:26 EDT , X-rays of the right hip and pelvis were obtained. There are 3 views. On my independent interpretation, there is no acute fracture or dislocation noted. There are degenerative changes noted. Radiologist also interpreted the x-rays and agrees. Treatment and Re-Evaluation Narrative: Patient was given a dose of Ulysses here. Patient was given a prescription for a short course of Ulysses. Patient was instructed to use ice to the area. Patient was instructed to follow-up with her primary care physician in 5 to 7 days. Caregiver understood and was agreeable with the plan. All questions were answered. Discharge Plan Triage Chief Complaint: Lower Extremity Injury ED Provider: Maximiliano Fatima Dx/Rx/DC Orders Clinical Impression: Contusion of right hip, initial encounter, Cerebral palsy, Fall Instructions: ED Hip Contusion Prescriptions: New hydrocodone-acetaminophen 5-325 mg tablet 1 tab PO Q6H PRN PRN (Reason: pain, severe) 3 Days Qty: 10 0RF No Action citalopram 20 mg tablet 20 mg PO DAILY Rx Instructions: TAKE WITH 10 MG TAB TO = 30 MG DAILY citalopram 10 mg tablet 10 mg PO DAILY Rx Instructions: TAKE WITH 20 MG TAB TO =30 MG DAILY ipratropium-albuterol 0.5 mg-3 mg(2.5 mg base)/3 mL solution for nebulization 3 ml inhalation Q4H PRN (Reason: shortness of breath or wheezing) Pepto-Bismol Max St 525 mg/15 mL suspension 1,050 mg PO .4X DAILY PRN Rx Instructions: FOR UPSET STOMACH; do not exceed 8 doses in a 24 hour period acetaminophen 160 mg/5 mL elixir 500 mg PO Q6H PRN Rx Instructions: PAIN OR FEVER>100.1 GENERAL PROTECTION LOTION topical Rx Instructions: APPLY BEFORE SUN EXPOSURE AND REAPPLY NECESSARY Fleet Bisacodyl 10 mg/30 mL enema 5 mg ME DAILY PRN Rx Instructions: ON DAY FIVE WITHOUT A BOWEL MOVEMENT guaifenesin 100 mg/5 mL liquid 200 mg PO Q4H PRN Rx Instructions: COUGH OR THICK PHLEGM/SECRETIONS carboxymethylcellulose sodium [Refresh Tears] 0.5 % drops 1 drp ophthalmic (eye) 4-6XD PRN Rx Instructions: COMPLAINT OF DRY EYES carbamide peroxide 6.5 % drops 10 drp otic (ear) DAILY Rx Instructions: PLACE DROPS IN EACH EAR FOR 20 MINUTES BY KEEPING THE HEAD TILTED. TAKE TWICE DAILY FOR 4 DAYS EVERY MONTH. terbinafine HCl 1 % cream 1 applic topical BID PRN Rx Instructions: APPLY UNDER BREAST OR IN SKIN FOLDS FOR REDNESS loratadine 10 MG tablet 10 mg PO DAILY@0800 mirtazapine 7.5 MG tablet 7.5 mg PO QHS@2000 azelastine 6 ML drops 0.05 drp EACH EYE BID@0800,1999 Patient Comments: PLACE (1) DROP INTO EACH EYE TWICE DAILY NEEDEDFOR DRY EYE apixaban 5 MG tablet 5 mg PO BID omeprazole 40 mg Capsule,Delayed Release(Dr/Ec) 40 mg PO DAILY@0700 levothyroxine 50 mcg tablet 50 mcg PO DAILY@0600 cholecalciferol (vitamin D3) [Vitamin D3] 25 mcg (1,000 unit) Tablet,Chewable 25 mcg PO DAILY@0800 ascorbic acid (vitamin C) 500 MG tablet 500 mg PO DAILY@0800 ferrous gluconate 324 MG tablet 324 mg PO DAILY@0800 carboxymethylcellulose sodium [Refresh Tears] 0.5 % Drops 1 drp EACH EYE TID docusate sodium 100 mg capsule 100 mg PO Q2D@1600 Rx Instructions: MAY HOLD AFTER ONE LOOSE STOOL ondansetron 4 mg tablet,disintegrating 4 mg PO TID PRN (Reason: nausea and vomiting) Qty: 21 0RF Primary Care Provider: Michelle Marroquin Referrals: Michelle Marroquin MD [Primary Care Provider] - 3-5 Days Print Language: Kinyarwanda Disposition Disposition: Home, Self Care
--- NOTE | 2023-12-21 14:40 | RAD_ITS ---
EXAM: XR RIGHT HIP WITH PELVIS WHEN PERFORMED, 2 OR 3 VIEWS CLINICAL INDICATION: History: Injury/Pain . TECHNIQUE: Two or three views of the right hip with pelvis when performed. COMPARISON: 12.25.17 BONES/JOINTS: Metal hardware in the right femur. Degenerative findings in the right hip. No displaced fracture. No destructive or sclerotic lesions. Note that overlapping bowel shadows may however obscure fine detail. Sacroiliac joint is unremarkable. No widening of the pubic symphysis. SOFT TISSUES: Unremarkable. No soft tissue swelling or gas. RAD/HIP, UNI W/ Pelvis 2-3 Views IMPRESSION: Degenerative findings in the right hip. Electronically Signed: Nick Choudhury MD at 15:26 EDT ,
[2023-12-21] MEDS: HYDROcodone Bitartrate/Apap 5/325 Tablet PO (14:51)
[2023-12-21 15:56] VITALS: BP 142/78; PULSE 78; RESP 16; TEMP 36.6; O2SAT 97
== END 2023-12-21 15:59 | disposition home or self-care (01) ==
PROVIDERS: Emergency Provider Emergency Medicine; PCP Internal Medicine; Visit Provider Emergency Medicine
DX: S70.01XA Contusion of right hip, initial encounter (principal); G80.9 Cerebral palsy, unspecified; W18.11XA Fall from or off toilet without subsequent striking against object, initial encounter; E78.5 Hyperlipidemia, unspecified; E03.9 Hypothyroidism, unspecified; Z95.0 Presence of cardiac pacemaker; Z79.01 Long term (current) use of anticoagulants; Z79.890 Hormone replacement therapy; Z79.899 Other long term (current) drug therapy
CPT/HCPCS: 73502; 99282

== ENCOUNTER 2024-04-09 20:31 | Emergency (ER) | payer MEDICARE, MEDICAID, SELFPAY ==
[2024-04-09 20:32] VITALS: PULSE 89; RESP 16; TEMP 36.4; O2SAT 95
--- NOTE | 2024-04-09 20:54 | EX.ED.VIS.UR ---
HPI HPI - URI History of Present Illness Chief Complaint: Sore Throat Narrative Narrative: History is limited secondary to cerebral palsy, wheelchair-bound. 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 No recent fevers, no nausea or vomiting. They state that she has had decreased p.o. intake because her throat hurts her. It hurts more when she swallows. ROS ROS ED ROS Narrative Review of systems obtained from caregiver. No fever. Positive sore throat, worse with swallowing. Decreased p.o. intake. No drooling. Review of Systems ROS Unobtainable: due to mental condition [facility] Medical History Hypothyroidism Cerebral palsy History of airway aspiration Health care maintenance Anxiety and depression History of pulmonary embolism Gastroenteritis URI (upper respiratory infection) neurostimulater Pacemaker metal gavi rt leg Hyperlipidemia Insomnia Fecal impaction Barretts esophagus Pulmonary embolism Vitamin D deficiency Allergic rhinitis GERD (gastroesophageal reflux disease) Depression Home Medications ?Medication ?Instructions ?Recorded ?Last Taken ?Type loratadine 10 mg tablet 10 mg PO DAILY@0800 ALLERGIES 09/10/14 01/02/22 History mirtazapine 7.5 mg tablet 7.5 mg PO QHS@1999 DEPRESSION 05/19/17 01/01/22 History azelastine 0.05 % eye drops 0.05 drp EACH EYE BID@080008/08/18 01/02/22 History DRY EYES apixaban 5 mg tablet 5 mg PO BID BLOOD THINNER 11/23/18 01/02/22 History ascorbic acid (vitamin C) 500 mg 500 mg PO DAILY@0800 SUPPLEMENT 01/02/22 01/02/22 History tablet carboxymethylcellulose sodium 0.5 1 drp EACH EYE TID 01/02/22 01/02/22 History % eye drops (Refresh Tears) cholecalciferol (vitamin D3) 25 25 mcg PO DAILY@0800 SUPPLEMENT 01/02/22 01/02/22 History mcg (1,000 unit) chewable tablet (Vitamin D3) ferrous gluconate 324 mg (38 mg 324 mg PO DAILY@0800 SUPPLEMENT 01/02/22 01/02/22 History iron) tablet levothyroxine 50 mcg tablet 50 mcg PO DAILY@0600 THYROID 01/02/22 01/02/22 History omeprazole 40 mg capsule,delayed 40 mg PO DAILY@0700 GERD 01/02/22 01/02/22 History release ondansetron 4 mg disintegrating 4 mg PO TID PRN nausea and 06/13/23 Unknown Rx tablet vomiting #21 tabs GENERAL PROTECTION LOTION topical 07/31/23 Unknown History acetaminophen 160 mg/5 mL oral 500 mg PO Q6H PRN 07/31/23 Unknown History elixir bisacodyl 10 mg/30 mL enema (Fleet 5 mg [place] DAILY PRN 07/31/23 Unknown History Bisacodyl) bismuth subsalicylate 525 mg/15 mL 1,050 mg PO .4X DAILY PRN 07/31/23 Unknown History oral suspension (Pepto-Bismol Max St) carbamide peroxide 6.5 % ear drops 10 drp otic (ear) DAILY 07/31/23 Unknown History carboxymethylcellulose sodium 0.5 1 drp ophthalmic (eye) 4-6XD PRN 07/31/23 Unknown History % eye drops (Refresh Tears) citalopram 10 mg tablet 10 mg PO DAILY 07/31/23 Unknown History citalopram 20 mg tablet 20 mg PO DAILY 07/31/23 Unknown History docusate sodium 100 mg capsule 100 mg PO Q2D@1600 STOOL 07/31/23 Unknown History guaifenesin 100 mg/5 mL oral liquid 200 mg PO Q4H PRN 07/31/23 Unknown History ipratropium 0.5 mg-albuterol 3 mg 3 ml inhalation Q4H PRN shortness 07/31/23 Unknown History (2.5 mg base)/3 mL nebulization of breath or wheezing soln terbinafine HCl 1 % topical cream 1 applic topical BID PRN 10/08/23 Unknown History hydrocodone-acetaminophen 5-325mg 1 tab PO Q6H PRN PRN pain, severe 12/21/23 Unknown Rx 5mg-325mg 3 days #10 TABLETS Allergy/AdvReac Type Severity Reaction Status Date / Time amoxicillin trihydrate (From AdvReac Unknown Verified 12/21/23 13:41 Augmentin) potassium clavulanate (From AdvReac Unknown Verified 12/21/23 13:41 Augmentin) Family History Father Pulmonary embolism Alcoholism Mother CVA (cerebral vascular accident) Surgical History Hx of cataract removal with insertion of prosthetic lens Social History Smoking Status: Never smoker alcohol intake: current alcohol intake frequency: 0-2 drinks per day substance use type: does not use and other details: THC LAST USED ON 07/20/23 seatbelt use: always EXAM Physical Exam Narrative Exam Narrative: Afebrile. Vital signs noted. Nontoxic-appearing. Neurological examination consistent with cerebral palsy. Patient able to open her mouth. No noted drooling or trismus. There is mild pharyngeal erythema. Airway patent. Neck soft and supple without meningismus. Cardiovascular examination regular rate and rhythm. Lungs clear to auscultation bilaterally. Seated in wheelchair. Const Vital Signs: 04/09/24 20:32 Temperature 97.6 F L Temperature Source Temporal Pulse Rate 89 Respiratory Rate 16 Pulse Ox 95 Oxygen Delivery Method Room Air MDM MDM MDM Narrative Medical decision making narrative: Differential diagnosis includes but not limited to strep pharyngitis versus viral pharyngitis versus COVID, influenza, or RSV. She will be swabbed for strep pharyngitis as well as upper respiratory viral swab for COVID, influenza and RSV. She is afebrile here. I do not feel she requires any imaging of her neck as I have very low suspicion for abscess as there is no drooling or trismus and clinically no peritonsillar abscess. Patient was administered liquid Tylenol for analgesia. I reviewed her respiratory swabs and her strep swabs and they are all negative so she does not have COVID, influenza, RSV, or strep throat. I do not feel antibiotics are indicated. She is currently lying supine in a wheelchair and handling her secretions well. I feel she can be discharged to follow-up. Return instructions reviewed. Disposition is discharged in stable condition. History & Record Review Discussion w/independent historian: Other (Caregiver) Discharge Plan Triage Chief Complaint: Sore Throat ED Provider: Gregory Coleman Dx/Rx/DC Orders Clinical Impression: Pharyngitis, Cerebral palsy Instructions: ED Pharyngitis, Viral Prescriptions: No Action citalopram 20 mg tablet 20 mg PO DAILY Rx Instructions: TAKE WITH 10 MG TAB TO = 30 MG DAILY citalopram 10 mg tablet 10 mg PO DAILY Rx Instructions: TAKE WITH 20 MG TAB TO =30 MG DAILY ipratropium-albuterol 0.5 mg-3 mg(2.5 mg base)/3 mL solution for nebulization 3 ml inhalation Q4H PRN (Reason: shortness of breath or wheezing) Pepto-Bismol Max St 525 mg/15 mL suspension 1,050 mg PO .4X DAILY PRN Rx Instructions: FOR UPSET STOMACH; do not exceed 8 doses in a 24 hour period acetaminophen 160 mg/5 mL elixir 500 mg PO Q6H PRN Rx Instructions: PAIN OR FEVER>100.1 GENERAL PROTECTION LOTION topical Rx Instructions: APPLY BEFORE SUN EXPOSURE AND REAPPLY NECESSARY Fleet Bisacodyl 10 mg/30 mL enema 5 mg CO DAILY PRN Rx Instructions: ON DAY FIVE WITHOUT A BOWEL MOVEMENT guaifenesin 100 mg/5 mL liquid 200 mg PO Q4H PRN Rx Instructions: COUGH OR THICK PHLEGM/SECRETIONS carboxymethylcellulose sodium [Refresh Tears] 0.5 % drops 1 drp ophthalmic (eye) 4-6XD PRN Rx Instructions: COMPLAINT OF DRY EYES carbamide peroxide 6.5 % drops 10 drp otic (ear) DAILY Rx Instructions: PLACE DROPS IN EACH EAR FOR 20 MINUTES BY KEEPING THE HEAD TILTED. TAKE TWICE DAILY FOR 4 DAYS EVERY MONTH. terbinafine HCl 1 % cream 1 applic topical BID PRN Rx Instructions: APPLY UNDER BREAST OR IN SKIN FOLDS FOR REDNESS loratadine 10 MG tablet 10 mg PO DAILY@0800 mirtazapine 7.5 MG tablet 7.5 mg PO QHS@1999 azelastine 6 ML drops 0.05 drp EACH EYE BID@799,1999 Patient Comments: PLACE (1) DROP INTO EACH EYE TWICE DAILY NEEDEDFOR DRY EYE apixaban 5 MG tablet 5 mg PO BID omeprazole 40 mg Capsule,Delayed Release(Dr/Ec) 40 mg PO DAILY@0700 levothyroxine 50 mcg tablet 50 mcg PO DAILY@0600 cholecalciferol (vitamin D3) [Vitamin D3] 25 mcg (1,000 unit) Tablet,Chewable 25 mcg PO DAILY@0800 ascorbic acid (vitamin C) 500 MG tablet 500 mg PO DAILY@0800 ferrous gluconate 324 MG tablet 324 mg PO DAILY@0800 carboxymethylcellulose sodium [Refresh Tears] 0.5 % Drops 1 drp EACH EYE TID docusate sodium 100 mg capsule 100 mg PO Q2D@1600 Rx Instructions: MAY HOLD AFTER ONE LOOSE STOOL ondansetron 4 mg tablet,disintegrating 4 mg PO TID PRN (Reason: nausea and vomiting) Qty: 21 0RF hydrocodone-acetaminophen 5-325 mg tablet 1 tab PO Q6H PRN PRN (Reason: pain, severe) 3 Days Qty: 10 0RF Primary Care Provider: Michelle Marroquin Referrals: Michelle Marroquin MD [Primary Care Provider] - 3-5 Days if not improving Activity Restrictions/Additional Instructions: Continue Tylenol or ibuprofen as needed for pain. Drink plenty of oral fluids. Return with fever, new or worsening symptoms. Print Language: Albanian Disposition Disposition: Home, Self Care
[2024-04-09] MEDS: Acetaminophen 650 MG/20 ML UDC PO (21:27)
== END 2024-04-09 22:00 | disposition home or self-care (01) ==
PROVIDERS: Emergency Provider Emergency Medicine; PCP Internal Medicine; Visit Provider Emergency Medicine
DX: J02.9 Acute pharyngitis, unspecified (principal); G80.9 Cerebral palsy, unspecified; E78.5 Hyperlipidemia, unspecified; E03.9 Hypothyroidism, unspecified; K21.9 Gastro-esophageal reflux disease without esophagitis; F32.A Depression, unspecified; F41.9 Anxiety disorder, unspecified; Z99.3 Dependence on wheelchair; Z79.01 Long term (current) use of anticoagulants; Z79.890 Hormone replacement therapy; Z79.899 Other long term (current) drug therapy; Z11.52 Encounter for screening for COVID-19
CPT/HCPCS: 87631; 87651; 99282

== ENCOUNTER → 2024-04-21 | Outpatient (CLI) | payer MEDICARE, MEDICAID, SELFPAY ==
[2024-04-21 16:52] LABS: Absolute Lymphocyte Count 2.12 X10^3/uL (0.83-4.51); Absolute Neutrophil Count 2.9 X10^3/uL (2.0-7.7); Basophil# 0.06 X10^3/uL; Eosinophil# 0.47 X10^3/uL; Eosinophils% 7.5 % (0-5); Hematocrit 42.2 % (37-47); Hemoglobin 13.6 g/dL (12.0-15.0); Lymphocyte # 2.12 X10^3/ul (0.83-4.51); Lymphocyte % 33.8 % (19-41); Mean Corp Hgb Conc 32.2 g/dL (32-36); Mean Corpuscular Hgb 31.6 pg (27.0-32.0); Mean Corpuscular Volume 98.1 fL (81-99); Mean Platelet Vol. 11.8 fl (6.2-12.0); Monocyte# 0.73 X10^3/uL; Monocyte% 11.6 % (0-10); NRBC Flagged by Analyzer 0 % (0-5); Neutrophil # 2.88 X10^3/uL (2.7-7.7); Neutrophil % 45.8 % (47-70); Platelet Count 280 K/mm3 (150-450); RBC Distribution Width CV 14.7 % (11.6-14.6); RBC Distribution Width SD 53.1 fl (35.1-43.9); White Blood Count 6.3 K/mm3 (4.4-11.0)
[2024-04-21 17:18] LABS: ALB/GLOB Ratio 0.8 RATIO (0.9-2.4); AST(SGOT) 15 U/L (15-37); Alanine Aminotransfer ALT/SGPT 15 U/L (13-56); Albumin, Serum 3.5 g/dL (3.2-5.0); Alkaline Phosphatase 101 U/L (45-117); Anion Gap 6 (5-15); BUN 5 mg/dL (7-18); BUN/Creat Ratio 9.6 RATIO (10-20); Calcium,Total 9.3 mg/dL (8.5-10.1); Chloride 103 mmol/L (98-107); Creatinine, Serum 0.52 mg/dL (0.55-1.02); EST Glomerular Filtration Rate 126 mL/min (>60); Est Glom Filt Rate - Afr Amer 153 mL/min (>60); Globulin 4.2 g/dL (2.2-4.2); Glucose 95 mg/dL (74-106); Potassium 4.4 mmol/L (3.5-5.1); Protein, Total 7.7 g/dL (6.4-8.2); Sodium Level 139 mmol/L (136-145)
[2024-04-21 17:30] LABS: Thyroid Stim Hormone (TSH) 0.986 uIU/mL (0.358-3.740)
== END | disposition home or self-care (01) ==
LOC: BIMLAB 14:34
PROVIDERS: Physician Assistant; PCP Internal Medicine; Referring Provider Internal Medicine; Visit Provider Internal Medicine
DX: J69.0 Pneumonitis due to inhalation of food and vomit (principal); G80.9 Cerebral palsy, unspecified; J06.9 Acute upper respiratory infection, unspecified; D50.9 Iron deficiency anemia, unspecified; E03.9 Hypothyroidism, unspecified
CPT/HCPCS: 36415; 80053; 84443; 85025; 87631

== ENCOUNTER → 2024-06-11 | Outpatient (CLI) | payer MEDICARE, MEDICAID, SELFPAY ==
[2024-06-11 16:35] LABS: Cholesterol 204 mg/dL (<=200); High Density Lipoprotein 66 mg/dL; Low Density Lipoprotein Calc. 123 mg/dL; Triglycerides 75 mg/dL; Very Low Density Lipoprotein 15 mg/dL (5-40); cholesterol:hdl ratio screen 3.11
== END | disposition home or self-care (01) ==
LOC: BIMLAB 13:32
PROVIDERS: PCP Internal Medicine; Referring Provider Internal Medicine; Visit Provider Internal Medicine
DX: E03.9 Hypothyroidism, unspecified (principal); E55.9 Vitamin D deficiency, unspecified; F41.9 Anxiety disorder, unspecified; F32.A Depression, unspecified
CPT/HCPCS: 36415; 80061; 82306

== ENCOUNTER 2024-09-05 07:28 | Observation (INO) | payer MEDICARE, MEDICAID, SELFPAY ==
[2024-09-05] VITALS (8 sets, daily range): BP systolic 101–129; BP diastolic 57–78; PULSE 72–88; RESP 16–22; TEMP 35.6–36.8; O2SAT 95–100; BMI 24.4
--- NOTE | 2024-09-05 07:57 | ED.VIS.GI ---
HPI HPI - GI History of Present Illness Chief Complaint: GI Bleed Informant: patient and other (Accompanied by a caregiver who gives the history. Patient has limited speech abilities.) Abdominal Pain/Flank Pain Onset: Today Current Severity: Mild Maximum Severity: Mild Nausea/Vomiting/Emesis GI Symptom: Positive for Nausea and Vomiting (X 1 today. Coffee-ground material.) Severity: Mild Diarrhea/Melena/Hematochezia GI Symptom: Negative for Diarrhea, Melena or Hematochezia Associated Symptoms Associated Symptoms: Negative for Dysuria or Frequency Narrative Narrative: 64-year-old female history of MRDD lives in an apartment has caregivers. 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 She has a pacemaker. Reportedly 1 week ago they thought she might add some dark emesis. Saw her primary care physician. Did not have the labs done at that time. Today had another episode of emesis that looked black. No known history of GI bleed. No recent melena that is known. She denies any abdominal pain. Prior similar symptoms: No Recent Illness/Hospitalization: No PFSH PFSH Medical History Diarrhea Nausea Intellectual developmental disorder, severe Urinary incontinence History of aspiration pneumonia Sore throat Hypothyroidism Cerebral palsy History of airway aspiration Health care maintenance Anxiety and depression History of pulmonary embolism Gastroenteritis URI (upper respiratory infection) neurostimulater Pacemaker metal gavi rt leg Hyperlipidemia Insomnia Fecal impaction Barretts esophagus Pulmonary embolism Vitamin D deficiency Allergic rhinitis GERD (gastroesophageal reflux disease) Depression Home Medications ?Medication ?Instructions ?Recorded ?Last Taken ?Type loratadine 10 mg tablet 10 mg PO DAILY@0800 ALLERGIES 09/10/14 01/02/22 History mirtazapine 7.5 mg tablet 7.5 mg PO QHS@1999 DEPRESSION 05/19/17 01/01/22 History azelastine 0.05 % eye drops 0.05 drp EACH EYE BID@0800,199908/08/18 01/02/22 History DRY EYES apixaban 5 mg tablet 5 mg PO BID BLOOD THINNER 11/23/18 01/02/22 History ascorbic acid (vitamin C) 500 mg 500 mg PO DAILY@0800 SUPPLEMENT 01/02/22 01/02/22 History tablet carboxymethylcellulose sodium 0.5 1 drp EACH EYE TID 01/02/22 01/02/22 History % eye drops (Refresh Tears) cholecalciferol (vitamin D3) 25 25 mcg PO DAILY@0800 SUPPLEMENT 01/02/22 01/02/22 History mcg (1,000 unit) chewable tablet (Vitamin D3) ferrous gluconate 324 mg (38 mg 324 mg PO DAILY@0800 SUPPLEMENT 01/02/22 01/02/22 History iron) tablet levothyroxine 50 mcg tablet 50 mcg PO DAILY@0600 THYROID 01/02/22 01/02/22 History omeprazole 40 mg capsule,delayed 40 mg PO DAILY@0700 GERD 01/02/22 01/02/22 History release ondansetron 4 mg disintegrating 4 mg PO TID PRN nausea and 06/13/23 Unknown Rx tablet vomiting #21 tabs GENERAL PROTECTION LOTION 1 dose topical 4X/DAY PRN skin 07/31/23 Unknown History protection acetaminophen 160 mg/5 mL oral 500 mg PO Q6H PRN fever or pain 07/31/23 Unknown History elixir bisacodyl 10 mg/30 mL enema (Fleet 5 mg [place] DAILY PRN constipation 07/31/23 Unknown History Bisacodyl) bismuth subsalicylate 525 mg/15 mL 1,050 mg PO .4X DAILY PRN diarrhea 07/31/23 Unknown History oral suspension (Pepto-Bismol Max St) carboxymethylcellulose sodium 0.5 1 drp ophthalmic (eye) 4-6XD PRN 07/31/23 Unknown History % eye drops (Refresh Tears) dry eye(s) citalopram 10 mg tablet 10 mg PO DAILY 07/31/23 Unknown History citalopram 20 mg tablet 20 mg PO DAILY 07/31/23 Unknown History ipratropium 0.5 mg-albuterol 3 mg 3 ml inhalation Q4H PRN shortness 07/31/23 Unknown History (2.5 mg base)/3 mL nebulization of breath or wheezing soln terbinafine HCl 1 % topical cream 1 applic topical BID PRN redness 10/08/23 Unknown History irrit docusate sodium 100 mg capsule 100 mg PO Q OTHER DAY #15 caps 07/03/24 Unknown Rx Allergy/AdvReac Type Severity Reaction Status Date / Time amoxicillin trihydrate (From AdvReac Unknown Verified 08/10/24 14:57 Augmentin) potassium clavulanate (From AdvReac Unknown Verified 08/10/24 14:57 Augmentin) Family History Father Pulmonary embolism Alcoholism Mother CVA (cerebral vascular accident) Surgical History Hx of cataract removal with insertion of prosthetic lens Social History Smoking Status: Never smoker alcohol intake: current alcohol intake frequency: 0-2 drinks per day substance use type: does not use and other details: THC LAST USED ON 07/20/23 seatbelt use: always ROS ROS ED ROS Narrative Nausea and vomiting x 1 today. No recent illness. No fever. Review of Systems ROS Unobtainable: other Details: Limited due to the patient's limited speech capability. Constitutional Constitutional ED: Denies chills or fever(s) ENT ENT ED: Denies ear pain Cardiovascular Cardiovascular: Denies chest pain Respiratory/Chest Respiratory/Chest: Denies cough or dyspnea Gastrointestinal Gastrointestinal: Reports nausea and vomiting; Denies abdominal pain, constipation, diarrhea or melena Genitourinary Genitourinary ED: Denies dysuria or hematuria Musculoskeletal Musculoskeletal: Denies arthralgias Integumentary Denies abscess Neurologic Neurologic: Denies headache(s) Psychiatric Psychiatric: Denies anxiety Endocrine Endocrinology: Denies polydipsia Hematologic/Lymphatic Hematologic/Lymphatic: Denies easy bleeding Allergic/Immunologic Allergic/Immunologic ED: Denies mouth swelling EXAM Physical Exam Narrative Exam Narrative: 64-year-old female sitting upright in bed. Nurses in the room. Caregiver in the room. Vital signs are stable awaiting a blood pressure. H EENT exam pupils round reactive light. Moist mucous membranes. Poor dentition. Neck nontender no JVD. Lungs clear to auscultation bilaterally. Heart regular rhythm rate about 84 no murmur. Chest wall ribs nontender. Abdomen soft nontender. Nondistended. Normal bowel sounds. No peritoneal signs. Moving all 4 extremities. Nontender deformity. Back nontender. Neurologically. Patient is awake. Her eyes are open. She is alert. She can answer limited questions. Follow limited commands. Const Vital Signs: 09/05/24 07:29 09/05/24 09:28 09/05/24 11:00 Temperature 96.0 F L Temperature Source Temporal Pulse Rate 84 81 72 Respiratory Rate 16 22 H 17 Blood Pressure 119/71 101/57 L Blood Pressure Mean 87 71 Pulse Ox 98 97 95 Oxygen Delivery Method Room Air Room Air 09/05/24 13:00 Temperature Temperature Source Pulse Rate 78 Respiratory Rate 20 H Blood Pressure 114/64 Blood Pressure Mean 78 Pulse Ox 99 Oxygen Delivery Method Room Air Positive well nourished and well developed; Negative for cachectic, contractures or unkempt General Appearance ED: well developed and NAD; Negative for unkempt, cachectic, contractures or pallor Nutritional Appearance: Negative for cachectic HEENT Reports moist mucous membranes normocephalic and atraumatic Eyes PERRL and EOMs intact bilaterally Neck no lymphadenopathy, supple and no JVD Resp normal respiratory effort and clear to auscultation bilaterally Cardio regular rate, regular rhythm, S1 normal heart sound, S2 normal heart sound and no murmurs Rate: Negative for bradycardia or tachycardic Rhythm: Negative for abnormal rhythm GI non-tender, non-distended and no masses Inspection: Negative for abdominal distention Auscultation: normoactive bowel sounds Palpation: soft; Negative for tender, guarding or rebound tenderness present Back/Spine no CVA tenderness General Back: Negative for CVA tenderness Cervical Spine: Negative for cervical spine tenderness Thoracic Spine / Upper Back: Negative for thoracic spinal tenderness Lumbar Spine / Lower Back: Negative for lumbar spinal tenderness Extremity full ROM Neuro moves all extremities Sensorium / Orientation: alert and oriented to person Motor Exam: strength 5/5 throughout Psych mental status grossly normal and thought process normal Appearance: Negative for unkempt Skin no wounds General Skin Exam: Negative for jaundice or pallor Lesions: no lesions Rashes: no rashes MDM MDM MDM Narrative Medical decision making narrative: 64-year-old female black emesis that may be an upper GI bleed could also be from her being on iron and/or Pepto-Bismol. She is on the blood thinner Eliquis. Screening labs to be obtained. She does not need any imaging. She will be typed and screened. She will be treated with Protonix in case this is an upper GI bleed. I did do a rectal exam on the patient around 8:50 AM. Both her caregiver and my nurse was present in the room. There was really no loose stool so there was not any melena and there was nothing to put on a Hemoccult stick. Repeat exam patient is doing well at 1 PM. However her repeat H&H did drop her initial hemoglobin was 13.9 now is 12.6 hematocrit 1 from 41-36. Hospitalist I feel she needs to be admitted. She will be [facility] to [facility]. She has already been started on Protonix from earlier in this evaluation. Admission for possible upper GI bleed. History & Record Review Discussion w/independent historian: Patient and Other (Caregiver that is with her.) Additional record(s) reviewed:: Prior inpatient record, Prior outpatient record, Prior ED visit and Prior labs Lab Data Attestation: I reviewed the patient's lab results. Lab results narrative: CBC shows a white count of 12.1. H&H of 13.9 and 41.2 which is her baseline. Platelets 263. Labs: Laboratory Results - last 24 hr 09/05/24 09/05/24 09/05/24 08:16 09:15 12:25 WBC 12.1 H RBC 4.34 Hgb 13.9 12.6 Hct 41.2 36.8 L MCV 94.9 MCH 32.0 MCHC 33.7 RDW Std Deviation 47.7 H RDW Coeff of Handy 13.5 Plt Count 263 MPV 11.2 Immature Gran % (Auto) 0.200 Neut % (Auto) 62.1 Lymph % (Auto) 28.4 [place] % (Auto) 6.0 Eos % (Auto) 2.5 Baso % (Auto) 0.8 Absolute Neuts (auto) 7.5 Absolute Lymphs (auto) 3.45 Nucleated RBC % 0 Sodium 140 Potassium 4.2 Chloride 104 Carbon Dioxide 24.1 Anion Gap 12 BUN 10 Creatinine 0.47 L Est GFR (MDRD) Non-Af 107 BUN/Creatinine Ratio 22.1 H Glucose 105 H Calcium 9.0 Total Bilirubin 0.39 AST 15 ALT 5 Alkaline Phosphatase 86 Total Protein 6.9 Albumin 3.8 Globulin 3.1 Albumin/Globulin Ratio 1.2 Blood Type Cancelled A POSITIVE Antibody Screen Cancelled NEGATIVE Discharge Plan Triage Chief Complaint: GI Bleed ED Provider: Dominguez Bolton Dx/Rx/DC Orders Clinical Impression: Acute upper gastrointestinal bleeding, Chronic anticoagulation, History of Arias esophagus Prescriptions: No Action citalopram 20 mg tablet 20 mg PO DAILY Rx Instructions: TAKE WITH 10 MG TAB TO = 30 MG DAILY citalopram 10 mg tablet 10 mg PO DAILY Rx Instructions: TAKE WITH 20 MG TAB TO =30 MG DAILY ipratropium-albuterol 0.5 mg-3 mg(2.5 mg base)/3 mL solution for nebulization 3 ml inhalation Q4H PRN (Reason: shortness of breath or wheezing) Pepto-Bismol Max St 525 mg/15 mL suspension 1,050 mg PO .4X DAILY PRN Rx Instructions: FOR UPSET STOMACH; do not exceed 8 doses in a 24 hour period acetaminophen 160 mg/5 mL elixir 500 mg PO Q6H PRN Rx Instructions: PAIN OR FEVER>100.1 GENERAL PROTECTION LOTION topical Rx Instructions: APPLY BEFORE SUN EXPOSURE AND REAPPLY NECESSARY Fleet Bisacodyl 10 mg/30 mL enema 5 mg [place] DAILY PRN Rx Instructions: ON DAY FIVE WITHOUT A BOWEL MOVEMENT carboxymethylcellulose sodium [Refresh Tears] 0.5 % drops 1 drp ophthalmic (eye) 4-6XD PRN Rx Instructions: COMPLAINT OF DRY EYES terbinafine HCl 1 % cream 1 applic topical BID PRN Rx Instructions: APPLY UNDER BREAST OR IN SKIN FOLDS FOR REDNESS clindamycin HCl 300 mg capsule 300 mg PO TID Qty: 21 0RF loratadine 10 MG tablet 10 mg PO DAILY@0800 mirtazapine 7.5 MG tablet 7.5 mg PO QHS@2000 azelastine 6 ML drops 0.05 drp EACH EYE BID@0800,2000 Patient Comments: PLACE (1) DROP INTO EACH EYE TWICE DAILY NEEDEDFOR DRY EYE apixaban 5 MG tablet 5 mg PO BID omeprazole 40 mg Capsule,Delayed Release(Dr/Ec) 40 mg PO DAILY@0700 levothyroxine 50 mcg tablet 50 mcg PO DAILY@0600 cholecalciferol (vitamin D3) [Vitamin D3] 25 mcg (1,000 unit) Tablet,Chewable 25 mcg PO DAILY@0800 ascorbic acid (vitamin C) 500 MG tablet 500 mg PO DAILY@0800 ferrous gluconate 324 MG tablet 324 mg PO DAILY@0800 carboxymethylcellulose sodium [Refresh Tears] 0.5 % Drops 1 drp EACH EYE TID ondansetron 4 mg tablet,disintegrating 4 mg PO TID PRN (Reason: nausea and vomiting) Qty: 21 0RF hydrocodone-acetaminophen 5-325 mg tablet 1 tab PO Q6H PRN PRN (Reason: pain, severe) 3 Days Qty: 10 0RF guaifenesin 100 mg/5 mL liquid 200 mg PO Q4H PRN (Reason: congestion) Qty: 1000 0RF Rx Instructions: COUGH OR THICK PHLEGM/SECRETIONS docusate sodium 100 mg capsule 100 mg PO Q OTHER DAY Qty: 15 5RF Primary Care Provider: Michelle Marroquin Referrals: Michelle Marroquin MD [Primary Care Provider] - Print Language: Scottish Disposition Disposition: Acute Care Hospital [facility]
--- OUTSIDE RECORDS SUMMARY | 2024-09-05 08:05 | XMS RPT_ITS | CCD ---
Author Organization [facility] Care Team Providers Care Clinical Systems Educator Name Role Phone Yang Abrams Unavailable Unavailable Cain, Rocky-Chi Unavailable Unavailable Yang Abrams Unavailable Unavailable Cain, Rocky-Chi Unavailable Unavailable AMINIAN, ALI Unavailable Unavailable AMINIAN, ALI Unavailable Unavailable AMINIAN, ALI Unavailable Unavailable Cain, Rocky Chi Primary Care Provider Bartolo Philippe Unavailable Dr. Rocky Barlow Chi Primary Care Provider 1([facility])[phone] Dr. Shazia Fortune Emergency Provider 1([facility])[phone] Maximiliano Ortiz Admit Provider Dr. Maximiliano Ortiz Attending Provider 1([facility])[phone] Maximiliano Ortiz Other Provider Dr. Jeni Ann Attending Provider 1([facility])[phone] Jeni Ann Other Provider Dr. Rocky Barlow Chi Primary Care Provider 1([facility])[phone] Dr. Shazia Fortune Emergency Provider 1([facility])[phone] Maximiliano Ortiz Admit Provider Dr. Maximiliano Ortiz Attending Provider 1([facility])[phone] Maximiliano Ortiz Other Provider Dr. Jeni Ann Attending Provider Dr. Jeni Ann Other Provider Dr. Rocky Barlow Chi Referring Provider 1([facility])[phone] XUAN Pope Attending Provider 1([facility])[phone] Lopez LEVY, Dr. Martinez Primary Care Provider Gregory Coleman MD Attending Provider Gregory Coleman MD Emergency Provider [phone] Lopez LEVY, Dr. Martinez Attending Provider [phone] Dr. Michelle Marroquin MD Referring Provider [phone] Christ Saldivar Attending Provider [phone] Christ Saldivar Attending Unavailable Oleghe, Efewongbe Referring Unavailable Oleghe, Efewongbe Primary Care Unavailable Oleghe, Efewongbe Primary Care Unavailable Oleghe, Efewongbe Attending Unavailable Oleghe, Efewongbe Referring Unavailable Oleghe, Efewongbe Attending Unavailable Oleghe, Efewongbe Referring Unavailable Oleghe, Efewongbe Primary Care Unavailable Oleghe, Efewongbe Primary Care Unavailable Gregory Coleman Attending Unavailable Oleghe, Efewongbe Primary Care Unavailable Maximiliano Fatima Attending Unavailable Oleghe, Efewongbe Primary Care Unavailable Gregory Coleman Attending Unavailable Oleghe, Efewongbe Attending Unavailable Oleghe, Efewongbe Referring Unavailable Oleghe, Efewongbe Primary Care Unavailable Christ Saldivar Attending Unavailable Oleghe, Efewongbe Referring Unavailable Oleghe, Efewongbe Primary Care Unavailable John Keyes Attending Unavailable Oleghe, Efewongbe Primary Care Unavailable Oleghe, Efewongbe Referring Unavailable Panfilo Reese Attending Unavailable Oleghe, Efewongbe Primary Care Unavailable John Keyes Attending Unavailable Oleghe, Efewongbe Primary Care Unavailable Oleghe, Efewongbe Referring Unavailable Oleghe, Efewongbe Primary Care Unavailable Oleghe, Efewongbe Attending Unavailable Oleghe, Efewongbe Referring Unavailable Oleghe , Dr. Martinez Primary Care Provider [facility] Primary Care Provider Bartolo Philippe MD Unavailable CAIN, [facility] Primary Care Unavailable HAJA COLEY Attending Unavailable Allergies Allergy Classification Reported Allergen(s) Allergy Type Date of Onset Reaction(s) Facility (7 sources) AMOXICILLIN-POT CLAVULANATE; Translations: [AMOXICILLIN-POT CLAVULANATE] Propensity to adverse reactions to drug (disorder) 1 Diarrhea [facility] Repository (2 sources) OTHER; Translations: [OTHER] Propensity to adverse reactions (disorder) 5 [facility] Repository (20 sources) Amoxicillin; Translations: [amoxicillin trihydrate] Drug Allergy 1 Unknown [facility] (20 sources) potassium clavulanate; Translations: [potassium clavulanate] Propensity to adverse reactions 1 Unknown [facility] (6 sources) Potassium; Translations: [POTASSIUM] Drug Allergy 9 Intolerance [facility] Work Phone: (5 sources) OTHER [Other] Propensity to adverse reactions 5 [facility] Work Phone: Medications Current Medications Medication Drug Class(es) Dates Sig (Normalized) Sig (Original) acetaminophen 325 mg / HYDROcodone bitartrate 5 mg oral tablet (3 sources) Opioid Agonist Start: 12-21-2023 take 1 tablet by mouth every six hours as needed for pain Hydrocodone-Acetami nophen 5-325 mg tablet Active 1 {tbl} PO EVERY 6 HOURS NEEDED as needed for pain, severe 10 December 21, 2023 Acetaminophen 160 mg/5 mL elixir (3 sources) Start: 07-31-2023 take 500 mg by mouth every six hours as needed Acetaminophen 160 mg/5 mL elixir Active 500 mg PO EVERY 6 HOURS as needed July 31, 2023 12:00am PAIN OR FEVER>100.1 albuterol 0.83 mg/ml inhalation solution (14 sources) beta2-Adrenergic Agonist Start: 02-06-2021 take 2.5 mg by inhalation every six hours Albuterol Sulfate Active 2.5 MG INHALATION EVERY 6 HOURS February 06, 2021 1:04am Start: 02-03-2021 take 1 puff(s) by in halation every four hours as needed Albuterol Sulfate (Ventolin Hfa) 1 INHALER inhaler Active 2 PUFF INHALATION EVERY 4 HOURS NEEDED February 03, 2021 5:14pm dispense with spacer Start: 02-03-2021 take 1 puff(s) by in halation every four hours as needed Albuterol Sulfate (Ventolin Hfa) 1 INHALER inhaler Active 2 PUFF INHALATION EVERY 4 HOURS NEEDED February 03, 2021 1:00am dispense with spacer albuterol 0.833 mg/ml / ipratropium bromide 0.167 mg/ml inhalation solution (20 sources) Anticholinergic, beta2-Adrenergic Agonist Start: 07-31-2023 take 1 mL by inhalation every four hours as needed for wheezing Ipratropium-Albuterol 0.5 mg-3 mg(2.5 mg base)/3 mL solution for nebulization Active 3 mL INHALATION Q4H as needed for shortness of breath or wheezing July 31, 2023 3:23pm Start: 02-06-2021 End: 07-31-2023 take 1 mL by inhalation every six hours as needed for wheezing Ipratropium-Albuterol 0.5 mg-3 mg(2.5 mg base)/3 mL solution for nebulization Discontinued 3 mL INHALATION EVERY 6 HOURS as needed for shortness of breath or wheezing January 03, 2022 7:29pm July 31, 2023 3:33pm Start: 02-06-2021 End: 01-03-2022 take 1 mL by inhalation every six hours Ipratropium-Albuterol Active 3 ML INHALATION EVERY 6 HOURS January 03, 2022 7:29pm Start: 11-23-2018 Ipratropium-Al buterol Active 3 ML IH NEEDED November 23, 2018 12:00am Comment on above: Inhale 3 mL as instr ucted every 6 hours as needed. apixaban 5 mg oral tablet (20 sources) Factor Xa Inhibitor Start: 11-23-2018 take 1 tablet by mouth twice daily Apixaban 5 MG tablet Active 5 mg PO TWICE A DAY November 23, 2018 12:00am Comment on above: Take by mouth twice daily. ascorbic acid 500 mg oral tablet (20 sources) Vitamin C Start: 08-06-2024 ascorbic acid, vitamin C, (VITAMIN C) 500 mg tablet 08/06/2024 Active Start: 06-24-2019 End: 01-02-2022 take 1 tablet by mouth once daily Ascorbic Acid (Vitamin C) 500 MG tablet Discontinued 500 mg PO DAILY@0800 90 90 January 31, 2020 11:28am January 02, 2022 6:03pm Take with iron azelastine hydrochloride 0.5 mg/ml ophthalmic solution (20 sources) Histamine-1 Receptor Antagonist Start: 08-10-2024 Azelastine HCl (OPTIVAR) 0.05 % ophthalmic solution 08/10/2024 Active Start: 08-08-2018 Azelastine 6 M L drops Active 0.05 NMA EACH EYE BID@08August 08, 2018 12:00am Start: 08-08-2018 Azelastine Act chris 0.05 DRP EACH EYE BID@08August 08, 2018 12:00am End: 08-26-2024 azelastine HCl (AZELASTINE O PHTHALMIC) Use in eyes. 08/26/2024 Discontinued benzonatate 100 mg oral capsule (7 sources) Non-narcotic Antitussive Start: 02-06-2021 take 200 mg by mouth three times daily Benzonatate Active 200 MG PO THREE TIMES A DAY 60 February 06, 2021 1:00am bisacodyl 0.333 mg/ml enema (3 sources) Stimulant Laxative Start: 07-31-2023 Bisacodyl (Fleet Bisacodyl) 10 mg/30 mL enema Active 5 mg RC DAILY as needed July 31, 2023 12:00am ON DAY FIVE WITHOUT A BOWEL MOVEMENT bismuth subsalicylate 35 mg/ml oral suspension (3 sources) Bismuth Start: 07-31-2023 Bismuth Subsalicylate (Pepto-Bismol Max St) 525 mg/15 mL suspension Active 1050 mg PO .4X DAILY as needed July 31, 2023 12:00am FOR UPSET STOMACH; do not exceed 8 doses in a 24 hour period carboxymethylcellulose sodium 5 mg/ml ophthalmic solution (17 sources) Start: 07-31-2023 Carboxymethylcellulose Sodium (Refresh Tears) 0.5 % drops Active 1 NMA OPHTHALMIC 4 to 6 times per day as needed July 31, 2023 12:00am COMPLAINT OF DRY EYES Start: 01-02-2022 Carboxymethylc ellulose Sodium (Refresh Tears) 0.5 % Drops Active 1 NMA EACH EYE THREE TIMES A DAY January 02, 2022 12:00am carboxymethylcel lulose sodium (REFRESH OPHTHALMIC) Use in eyes. Active cholecalciferol 0.025 mg ora l tablet (14 sources) Vitamin D Start: 08-06-2024 VITAMIN D 25 m cg (1,000 unit) tab tablet 08/06/2024 Active Start: 01-02-2022 take 1 tablet by courtney th once daily Cholecalciferol (Vitamin D3) (Vitamin D3) 25 mcg (1,000 unit) Tablet,Chewable Active 25 ug PO DAILY@0800 January 02, 2022 12:00am citalopram 10 mg oral tablet (8 sources) Serotonin Reuptake Inhibitor Start: 08-06-2024 citalopram (CELEXA) 20 mg tablet 08/06/2024 Active Start: 08-06-2024 citalopram hyd robromide (CELEXA) 10 mg tablet 08/06/2024 Active Start: 07-31-2023 Citalopram 20 mg tablet Active 20 mg PO DAILY July 31, 2023 12:00am TAKE WITH 10 MG TAB TO = 30 MG DAILY Start: 07-31-2023 take 2 tablets by mo coh once daily, then take 3 tablets by mouth once daily Citalopram 10 mg tablet Active 10 mg PO DAILY July 31, 2023 12:00am TAKE WITH 20 MG TAB TO =30 MG DAILY clindamycin 300 mg oral capsule (3 sources) Lincosamide Antibacterial Start: 05-18-2024 take 1 capsule by mouth three times daily Clindamycin Hcl 300 mg capsule Active 300 mg PO THREE TIMES A DAY May 18, 2024 12:00am COMPOUNDED PRESCRIPTION (5 sources) Start: 05-12-2006 COMPOUNDED PRESCRIPTION Indications: Other specified infantile cerebral palsy Light talker Prentke Romich Pathfinder Device with Table Mount, Wheelchair Mount and carrying case Diagnosis: Cerebral Palsy 343.8 Note: patient has no functional speech abilities 1 0 05/12/2006 Active Comment on above: Light talker Prentke Romich Pathfinder Device with Table Mount, Wheelchair Mount and carrying case Diagnosis: Cerebral Palsy 343.8 Note: patient has no functional speech abilities docusate sodium 100 mg oral capsule (19 sources) Start: 08-06-2024 docusate sodium (COLACE) 100 mg capsule 08/06/2024 Active Start: 07-03-2024 take 1 capsule by mo uth every other day Docusate Sodium 100 mg capsule Active 100 mg PO every other day July 03, 2024 12:37am Start: 01-02-2022 End: 07-03-2024 take 1 capsule by mouth every other day Docusate Sodium 100 mg capsule Discontinued 100 mg PO Q2D@1600 July 31, 2023 3:19pm July 03, 2024 12:38am MAY HOLD AFTER ONE LOOSE STOOL ergocalciferol 1.25 mg oral capsule (12 sources) Provitamin D2 Compound Start: 11-13-2018 take 80187 [IU] by mouth every month Ergocalciferol (Vitamin D2) Active 12924 UNIT PO EVERY MONTH November 13, 2018 12:00am Comment on above: Take 50,000 Units by mouth once every month. Ferrous Fumarate-Vitamin C (7 sources) Start: 02-23-2019 Ferrous Fumarate-Vitamin C Active 1 EACH PO DAILY February 23, 2019 12:32pm Start: 02-23-2019 Ferrous Fumara te-Vitamin C Active 1 EACH PO DAILY February 23, 2019 1:00am ferrous gluconate 324 mg ora l tablet (20 sources) Start: 08-06-2024 Ferrous Glucon ate (FERGON) 324 mg (38 mg iron) tablet 08/06/2024 Active Start: 06-24-2019 End: 01-02-2022 take 1 tablet by mouth once daily Ferrous Gluconate 324 MG tablet Discontinued 324 mg PO DAILY January 31, 2020 11:28am January 02, 2022 6:03pm GENERAL PROTECTION LOTION (3 sources) Start: 07-31-2023 GENERAL PROTEC TION LOTION Active TOPICAL July 31, 2023 12:00am APPLY BEFORE SUN EXPOSURE AND REAPPLY NECESSARY guaiFENesin 20 mg/ml oral solution (6 sources) Start: 07-31-2023 End: 04-21-2024 take 200 mg by mouth every four hours as needed for congestion Guaifenesin 100 mg/5 mL liquid Active 200 mg PO Q4H as needed for congestion 999April 21, 2024 7:53pm COUGH OR THICK PHLEGM/SECRETIONS lactulose 667 mg/ml oral solution (12 sources) Osmotic Laxative Start: 08-08-2018 Lactulose Active 10 GM BC TWICE A DAY August 08, 2018 12:00am Start: 03-19-2013 End: 08-26-2024 take 30 mL by mouth twice daily lactulose (GENERLAC) 20 gram/30 mL solution Take 30 mL by mouth twice daily. 946 mL 2 03/19/2013 08/26/2024 Discontinued Start: 03-19-2013 take 30 mL by mouth twice daily lactulose (GENERLAC) 20 gram/30 mL solution Take 30 mL by mouth twice daily. 946 mL 2 03/19/2013 Active Comment on above: Take 30 mL by mouth twice daily. levothyroxine sodium 0.05 mg oral tablet (20 sources) l-Thyroxine Start: take 1 tablet by mouth once daily Levothyroxine 50 mcg tablet Active 50 ug PO DAILY@0600 January 02, 2022 12:00am Start: 09-10-2014 take 50 ug by mouth once daily Levothyroxine Active 50 MCG PO DAILY September 10, 2014 12:00am Start: 03-19-2013 End: 08-26-2024 take 1 tablet by mouth once daily levothyroxine (SYNTHROID) 75 mcg tablet Take 1 tablet by mouth once daily. 30 tablet 2 03/19/2013 08/26/2024 Discontinued Comment on above: Take 1 tablet by courtney once daily. Take 50 mcg by mouth once daily. loratadine 10 mg oral tablet (20 sources) Start: 09-10-2014 take 1 tablet by mouth once daily Loratadine 10 MG tablet Active 10 mg PO DAILY@0800 September 10, 2014 12:00am Start: 03-19-2013 take 1 tablet by courtney th once daily Loratadine (ALLERGY RELIEF, LORATADINE,) 10 mg dissolvable tablet Take 1 tablet by mouth once daily. 30 tablet 2 03/19/2013 Active Comment on above: Take 1 tablet by courtney once daily. Melatonin / pyridoxine (7 sources) Start: 09-10-2014 take 3 mg by mouth at bedtime Melatonin-Pyridoxi ne (Vit B6) Active 3 MG PO AT BEDTIME September 10, 2014 2:19pm Start: 09-10-2014 take 3 mg by mouth a t bedtime Melatonin-Pyridoxine (Vit B6) Active 3 MG PO AT BEDTIME September 10, 2014 12:00am mirtazapine 7.5 mg oral tablet (20 sources) Start: 05-19-2017 take 1 tablet by mouth once daily at bedtime Mirtazapine 7.5 MG tablet Active 7.5 mg PO QHS@2000 May 19, 2017 12:00am Comment on above: Take 7.5 mg by mouth daily at bedtime. omeprazole 40 mg delayed release oral capsule (20 sources) Proton Pump Inhibitor Start: 01-02-2022 take 1 capsule by mouth once daily Omeprazole 40 mg Capsule,Delayed Release(Dr/Ec) Active 40 mg PO DAILY@0700 January 02, 2022 12:00am Start: 01-08-2019 take 40 mg by mouth once daily Omeprazole Active 40 MG PO DAILY January 08, 2019 9:25am Start: 06-04-2018 End: 08-26-2024 take 2 capsules by mouth once daily in the morning omeprazole (PRILOSEC) 20 mg capsule Take 2 capsules by mouth once daily. take in AM 1/2 hour before eating 60 capsule 2 06/04/2018 08/26/2024 Discontinued Start: 09-10-2014 End: 01-08-2019 take 1 capsule by mouth once daily Omeprazole 20 MG capsule Discontinued 20 mg PO DAILY 60 May 22, 2017 4:33pm January 08, 2019 9:26am Comment on above: Take 2 capsules by m out once daily. take in AM 1/2 hour before eating ondansetron 4 mg disintegrating oral tablet (6 sources) Serotonin-3 Receptor Antagonist Start: 06-13-19 24 take 1 tablet by mouth three times daily as needed for nausea and vomiting Ondansetron 4 mg tablet,disintegratin g Active 4 mg PO THREE TIMES A DAY as needed for nausea and vomiting June 13, 2023 6:59am polyethylene glycol 3350 78109 mg powder for oral solution (12 sources) Osmotic Laxative Start: 08-09-19 19 Polyethylene Glycol 3350 Active 17 GM BC DAILY August 08, 2018 12:00am Comment on above: Take 17 g by mouth o nce daily. sennosides, jail 8.6 mg oral tablet (12 sources) Start: 04-20-19 End: 08-27-19 25 take 1 tablet by mouth twice daily Sennosides Active 1 TABLET PO TWICE A DAY April 20, 2015 1:00am Comment on above: Take 17.2 mg by mout h twice daily. sucralfate 100 mg/ml oral suspension (7 sources) Aluminum Complex Start: 08-09-19 take 1 g by mouth four times daily Sucralfate Active 1 GM PO 4 TIMES DAILY August 08, 2018 12:00am terbinafine hydrochloride 10 mg/ml topical cream (6 sources) Allylamine Antifungal Start: 07-31-19 End: 10-08-19 Terbinafine Hcl 1 % cream Active 1 NMA TOPICAL TWICE A DAY as needed October 08, 2023 1:36pm APPLY UNDER BREAST OR IN SKIN FOLDS FOR REDNESS WHEELCHAIR CUSHION MISC (5 sources) Start: 05-13-19 WHEELCHAIR CUSHION MISC Indications: Other specified infantile cerebral palsy Use daily for prevention of decubitus 1 0 05/12/2006 Active Comment on above: Use daily for preven tion of decubitus zinc oxide 130 mg/ml topical cream (12 sources) Start: 12-30-19 Zinc Oxide (Desitin Rapid Relief) 13 % cream Active 1 APPLIC TOPICAL 2 to 4 times per day December 30, 2019 12:00am Start: 05-12-2006 DESITIN 40 % O INTMENT Indications: Pressure ulcer, buttock(707.05) Apply to buttocks twice daily 1 container 11 05/12/2006 Active Comment on above: Apply to buttocks tw ice daily Completed/Discontinued Medications Medication Drug Class(es) Dates Sig (Normalized) Sig (Original) bacitracin 0.4 unt/mg / neomycin 0.0035 mg/mg / polymyxin b 5 unt/mg topical ointment (3 sources) Aminoglycoside Antibacterial, Polymyxin-class Antibacterial Start: 07-31-2023 End: 10-08-2023 Neomycin-Bacitracn zn-Polymyxnb (Triple Antibiotic) 3.5mg-400 unit- 5,000 unit/gram ointment Discontinued 1 NMA TOPICAL .4X DAILY as needed July 31, 2023 12:00am October 08, 2023 1:35pm FOR MINOR CUTS, SCRAPES, LOPEZ carbamide peroxide 65 mg/ml otic solution (3 sources) Start: 07-31-2023 End: 04-21-2024 Carbamide Peroxide 6.5 % drops Discontinued 10 NMA OTIC DAILY July 31, 2023 12:00am April 21, 2024 2:54pm PLACE DROPS IN EACH EAR FOR 20 MINUTES BY KEEPING THE HEAD TILTED. TAKE TWICE DAILY FOR 4 DAYS EVERY MONTH. codeine phosphate 2 mg/ml / guaiFENesin 20 mg/ml oral solution (13 sources) Opioid Agonist Start: 01-02-2022 End: 07-31-2023 Codeine-Guaifenesi n 10-100 mg/5 mL liquid Discontinued 0 .ROUTE .COMPLEX January 02, 2022 12:00am July 31, 2023 3:24pm TAKE 5 MLS BY MOUTH 6 TIMES A DAY NEEDED FOR COUGH doxycycline monohydrate 100 mg oral capsule (20 sources) Tetracycline-class Drug Start: 02-03-2021 End: 07-31-2023 take 1 capsule by mouth twice daily Doxycycline Monohydrate 100 MG capsule Discontinued 100 mg PO TWICE A DAY February 03, 2021 1:00am July 31, 2023 3:24pm ferrous sulfate 60 mg/ml oral solution (20 sources) Start: 05-22-2017 End: 05-27-2018 Ferrous Sulfate 300 MG/5 ML liquid Discontinued 300 mg GT TWICE A DAY 300 May 22, 2017 12:00am May 27, 2018 9:39am 1 tsp twice daily with food FERROUS SULFATE ORAL Take by mouth. Active FERROUS SULFATE ORAL Take by mouth. 0 Active Comment on above: Take by mouth. fluconazole 150 mg oral tablet (1 source) Azole Antifungal Start: 2 End: 2 take 1 tablet by mouth once fluconazole (DIFLUCAN) 150 mg tablet Take 1 tablet by mouth one time only for 1 dose. 1 tablet 0 10/26/2021 10/26/2021 Comment on above: Take 1 tablet by [facility] one time only for 1 dose. FLUoxetine 40 mg oral capsule (20 sources) Serotonin Reuptake Inhibitor Start: 2 End: 4 take 1 capsule by mouth once daily Fluoxetine 40 mg capsule Discontinued 40 mg PO DAILY@0800 January 02, 2022 12:00am July 31, 2023 3:24pm Start: 05-19-2017 take 10 mL by mouth once daily Fluoxetine Active 40 MG PO DAILY May 19, 2017 12:00am LIQUID 20MG/5ML 10ML TOTAL take 10 mL by mouth once daily F LUOXETINE HCL (PROZAC ORAL) Take 10 mL by mouth once daily. Active take 10 mL by mouth once daily F LUOXETINE HCL (PROZAC ORAL) Take 10 mL by mouth once daily. 0 Active Comment on above: Take 10 mL by mouth once daily. magnesium hydroxide 80 mg/ml oral suspension (5 sources) Start: 05-05-2006 End: 08-26-2024 MILK OF MAGNESIA 400 MG/5 ML ORAL SUSP as needed 0 05/05/2006 08/26/2024 Discontinued Comment on above: as needed melatonin 3 mg oral tablet (20 sources) Start: 01-02-2022 End: 10-08-2023 take 4.5 mg by mouth at bedtime as needed for sleep Melatonin 3 mg tablet Discontinued 4.5 mg PO AT BEDTIME as needed for SLEEP July 31, 2023 3:22pm October 08, 2023 1:35pm IF PATIENT IS NOT SLEEPING BY 9 PM Start: 01-02-2022 take 4.5 mg by mouth at bedtim e Melatonin Active 4.5 MG PO AT BEDTIME January 02, 2022 12:00am Start: 04-23-2013 End: 08-26-2024 melatonin 3 mg tab take 1.5 tablets( 4.5mg) daily at bedtime 42 tablet 5 04/23/2013 08/26/2024 Discontinued Comment on above: take 1.5 tablets( 4. 5mg) daily at bedtime ofloxacin 3 mg/ml ophthalmic solution (15 sources) Quinolone Antimicrobial Start: 03-23-19 End: 08-27-19 ofloxacin (OCUFLOX) 0.3 % ophthalmic solution One drop 4 times a day for one week in surgical eye(s). 1 Bottle 1 11/23/2019 08/26/2024 Discontinued Comment on above: One drop 4 times a d ay for one week in surgical eye(s). oseltamivir 75 mg oral capsule (3 sources) Neuraminidase Inhibitor Start: 04-21-19 End: 04-26-19 25 take 1 capsule by mouth twice daily Oseltamivir (Tamiflu) 75 mg capsule Discontinued 75 mg PO TWICE A DAY 10 5 April 21, 2024 1:00am April 25, 2024 1:00am April 26, 2024 1:15am prednisoLONE acetate 10 mg/ml ophthalmic suspension (15 sources) Corticosteroid Start: 03-23-19 End: 08-27-19 prednisoLONE acetate (PRED FORTE, ECONOPRED PLUS) 1 % ophthalmic suspension One drop 4X a day for 1 week, then 3X a day for 1 week, then 2X a day for 1 week, then once daily for 1 week. 10 mL 11/23/2019 08/26/2024 Discontinued Comment on above: One drop 4X a day fo r 1 week, then 3X a day for 1 week, then 2X a day for 1 week, then once daily for 1 week. predniSONE 20 mg oral tablet (20 sources) Start: 08-16-19 End: 07-31-19 take 1 tablet by mouth twice daily Prednisone 20 mg tablet Discontinued 20 mg PO TWICE A DAY August 15, 2022 12:00am July 31, 2023 3:23pm Start: 01-02-2022 End: 07-31-2023 take 3 tablets by mouth once daily, then take 2 tablets by mouth once daily, then take 1 tablet by mouth once daily Prednisone 10 mg tablet Discontinued 0 .ROUTE .COMPLEX January 02, 2022 12:00am July 31, 2023 3:23pm TAKE 3 TABLETS BY MOUTH ONCE DAILY FOR 2 DAYS THEN TAKE 2 TABLETS BY MOUTH ONCE DAILY FOR 2 DAYS THEN TAKE 1 TABLET BY MOUTH ONCE DAILY FOR 2 DAYS Start: 02-03-2021 take 60 mg by mouth once daily Prednisone Active 60 MG PO DAILY February 03, 2021 1:00am Problems Active Problems Problem Classification Problem Date Documented Date Episodic/Chronic Acute bronchitis (20 sources) Acute bronchitis with bronchospasm; Translations: [Acute bronchitis, unspecified] Episodic Anxiety disorders (7 sources) Mixed anxiety and depressive disorder; Translations: [Anxiety disorder, unspecified] Onset: 06-11-2024 07-31-2023 Chronic Asthma (9 sources) Asthmatic bronchitis; Translations: [Unspecified asthma, uncomplicated] 08-23-2022 Chronic Cardiac dysrhythmias (20 sources) Tachycardia; Translations: [Tachycardia, unspecified] Episodic Cataract (10 sources) Age-related cataract of left eye; Translations: [Unspecified age-related cataract] Onset: 03-17-2019 03-17-2019 Chronic Deficiency and other anemia (20 sources) Microcytic anemia; Translations: [Iron deficiency anemia, unspecified] 01-11-2019 Episodic Deficiency and other anemia (20 sources) Iron deficiency anemia; Translations: [Iron deficiency anemia, unspecified] 06-23-2018 Episodic Developmental disorders (6 sources) Severe intellectual disability; Translations: [Severe intellectual disabilities] 06-11-2024 Chronic E Codes: Fall (12 sources) Fall; Translations: [Unspecified fall, initial encounter] 08-03-2022 Episodic Esophageal disorders (10 sources) Gastroesophageal reflux disease; Translations: [Gastro-esophageal reflux disease without esophagitis] Onset: 03-17-2019 06-23-2008 Chronic Esophageal disorders (20 sources) Dilatation of esophagus; Translations: [Dilatation of esophagus] 06-23-2018 Episodic Genitourinary symptoms and ill-defined conditions (6 sources) Urinary incontinence; Translations: [Unspecified urinary incontinence] 06-11-2024 Chronic Genitourinary symptoms and ill-defined conditions (1 source) Scalding pain on urination ; Translations: [Dysuria] Episodic Inflammation; infection of eye (except that caused by tuberculosis or sexually transmitteddisease) (5 sources) Chronic allergic conjunctivitis; Translations: [Other chronic allergic conjunctivitis] 05-14-2005 Chronic Mood disorders (20 sources) Depressive disorder; Translations: [Depression] 03-17-2019 Chronic Mood disorders (1 source) Mood disorders; Translations: [Depression, unspecified] Onset: 06-11-2024 Nausea and vomiting (8 sources) Nausea and vomiting; Translations: [Nausea with vomiting, unspecified] Onset: 08-26-2024 06-13-2023 Episodic Noninfectious gastroenteritis (12 sources) Gastroenteritis; Translations: [Noninfective gastroenteritis and colitis, unspecified] 01-21-2022 Episodic Nutritional deficiencies (6 sources) Undernutrition; Translations: [Mild protein-calorie malnutrition] Onset: 08-19-2006 08-19-2006 Chronic Nutritional deficiencies (20 sources) Iron deficiency; Translations: [Iron deficiency] 10-12-2019 Episodic Osteoarthritis (20 sources) Osteoarthritis of right hip joint; Translations: [Unilateral primary osteoarthritis, right hip] 06-23-2018 Chronic Other aftercare (6 sources) Long-term current use of anticoagulant; Translations: [longterm (current) use of anticoagulants] 06-13-2023 Episodic Other connective tissue disease (3 sources) Foot pain; Translations: [Pain in left foot] 10-08-2023 Episodic Other ear and sense organ disorders (3 sources) Excessive cerumen in ear canal ; Translations: [Impacted cerumen, bilateral] 12-12-2023 Episodic Other female genital disorders (1 source) Pruritus of vagina; Translations: [Other specified noninflammatory disorders of vagina] Episodic Other female genital disorders (1 source) Burning sensation of vagina; Translations: [Unspecified condition associated with female genital organs and menstrual cycle] Episodic Other female genital disorders (1 source) Vaginal odor; Translations: [Other specified noninflammatory disorders of vagina] Episodic Other female genital disorders (1 source) Vaginal discharge; Translations: [Other specified noninflammatory disorders of vagina] Episodic Other injuries and conditions due to external causes (20 sources) Pulmonary aspiration ; Translations: [Unspecified foreign body in respiratory tract, part unspecified causing other injury, initial encounter] 06-23-2018 Episodic Other lower respiratory disease (20 sources) Dyspnea; Translations: [Shortness of breath] 06-23-2018 Episodic Other lower respiratory disease (12 sources) Wheezing; Translations: [Wheezing] Episodic Other lower respiratory disease (1 source) Chronic cough; Translations: [Chronic cough] Episodic Other lower respiratory disease (4 sources) Cough; Translations: [Cough] 07-21-2023 Episodic Other lower respiratory disease (6 sources) History of aspiration pneumonia; Translations: [Personal history of pneumonia (recurrent)] 04-21-2024 Episodic Other nervous system disorders (4 sources) H/O: brain disorder; Translations: [Personal history of other diseases of the nervous system and sense organs] 07-21-2023 Episodic Other upper respiratory disease (5 sources) Allergic rhinitis; Translations: [Other allergic rhinitis] 05-14-2005 Chronic Paralysis (20 sources) Cerebral palsy; Translations: [Cerebral palsy, unspecified] Onset: 12-12-2023 11-19-2019 Chronic Residual codes; unclassified (20 sources) Poor oral hygiene; Translations: [Other specified personal risk factors, not elsewhere classified] 06-23-2018 Episodic Residual codes; unclassified (6 sources) Insomnia; Translations: [Insomnia, unspecified] 07-31-2023 Episodic Residual codes; unclassified (3 sources) H/O: Disorder; Translations: [Personal history of other specified conditions] 07-31-2023 Episodic Respiratory failure; insufficiency; arrest (adult) (16 sources) Acute respiratory failure; Translations: [Acute respiratory failure with hypoxia] Episodic Sprains and strains (3 sources) Sprain of left foot; Translations: [Unspecified sprain of left foot, initial encounter] 10-01-2023 Episodic Thyroid disorders (20 sources) Hypothyroidism; Translations: [Hypothyroidism, unspecified] Onset: 11-11-2006 08-13-2007 Chronic Unclassified (1 source) Unknown / UNK(Unknown) Onset: 10-29-2016 Unclassified (1 source) Cough, unspecified; Translations: [Cough, unspecified] Onset: 04-21-2024 Past or Other Problems Problem Classification Problem Date Documented Da te Episodic/Chronic Abdominal hernia (20 sources) Hiatal hernia; Translations: [Diaphragmatic hernia without obstruction or gangrene] Onset: 05-19-2017 05-19-2017 Episodic Aspiration pneumonitis; food/vomitus (20 sources) Aspiration pneumonitis; Translations: [Pneumonitis due to inhalation of food and vomit] Onset: 05-05-2024 06-23-2018 Episodic Deficiency and other anemia (1 source) Iron deficiency anemia, unspecified; Translations: [Iron deficiency anemia, unspecified] Onset: 12-12-2023 Episodic Disorders of teeth and jaw (1 source) Dental caries Onset: 10-29-2016 Episodic Immunizations and screening for infectious disease (6 sources) Raised Helicobacter pylori antibody; Translations: [Other specified abnormal immunological findings in serum] Onset: 05-01-2009 05-01-2009 Episodic Other connective tissue disease (5 sources) Pain in limb; Translations: [Pain in unspecified limb] Onset: 09-26-2009 09-26-2009 Episodic Other connective tissue disease (1 source) Pain in left foot; Translations: [Pain in left foot] Onset: 10-08-2023 Episodic Other gastrointestinal disorders (1 source) Dysphagia, unspecified; Translations: [Dysphagia, unspecified] Onset: 05-19-2017 Episodic Other gastrointestinal disorders (5 sources) Constipation; Translations: [Constipation, unspecified] Onset: 05-14-2005 05-14-2005 Episodic Other gastrointestinal disorders (5 sources) Esophageal dysphagia; Translations: [Other dysphagia] Onset: 05-19-2017 05-19-2017 Episodic Other injuries and conditions due to external causes (1 source) Unspecified injury of unspecified lower leg, initial encounter; Translations: [Unspecified injury of unspecified lower leg, initial encounter] Onset: 12-12-2023 Episodic Other lower respiratory disease (1 source) Personal history of pneumonia (recurrent); Translations: [Personal history of pneumonia (recurrent)] Onset: 04-21-2024 Episodic Other non-traumatic joint disorders (1 source) Pain in right hip; Translations: [Pain in right hip] Onset: 01-14-2024 Episodic Other upper respiratory infections (20 sources) Acute upper respiratory infection; Translations: [Acute upper respiratory infection, unspecified] Onset: 04-21-2024 03-29-2022 Episodic Pulmonary heart disease (11 sources) H/O: pulmonary embolus; Translations: [Personal history of pulmonary embolism] Onset: 03-17-2019 03-17-2019 Episodic Superficial injury; contusion (20 sources) Contusion of foot; Translations: [Contusion of unspecified foot, initial encounter] Onset: 09-26-2009 09-26-2009 Episodic Unclassified (15 sources) metal gavi rt leg 09-27-2021 Unclassified (15 sources) neurostimulater 09-27-2021 Results Test Name Value Interpretation Reference Range Facility [facility] 08-26-2024 [facility] Office Visit (UCTR ) TONYA FLETCHER ([id number]) 1960 F Date Time Provider Department 08/26/24 6:15 PM HAJA COLEY [facility] During your visit today, we recorded the following information about you: Temperature Pulse Respiration Blood pressure 96.8 degrees 82/minute 21/minute 130/78 Haja Coley MD 08/26/2024 6:45 PM Signed [facility] Subjective Tonyaquincy Fletcher is a 64 year old female. Patient presents with: Nausea AND Vomiting: Fever started today Patient presents with caregiver for vomiting today. She also had a headache. She currently denies any symptoms including nausea. Earlier today she pointed to her chest indicating shortness of breath which improved with nebulizer treatment. She had a couple weeks of diarrhea which resolved 1-1/2 weeks ago. It has not returned today. She had nasal congestion and rhinorrhea earlier in the week. Denies cough, sore throat, current nausea, diarrhea, urinary frequency, urgency, or hematuria. Review of Systems Objective BP 130/78 Pulse 82 Temp 36 ?C (96.8 ?F) Resp 21 LMP (LMP Unknown) SpO2 94% Physical Exam Constitutional: General: She is not in acute distress. Comments: Mostly nonverbal, answers yes or no questions appropriately. Sitting in motorized wheelchair. HENT: Right Ear: There is impacted cerumen. Left Ear: There is impacted cerumen. Nose: No congestion or rhinorrhea. Mouth/Throat: Mouth: Mucous membranes are moist. Eyes: Extraocular Movements: Extraocular movements intact. Pupils: Pupils are equal, round, and reactive to light. Cardiovascular: Rate and Rhythm: Normal rate and regular rhythm. Heart sounds: No murmur heard. Pulmonary: Effort: No respiratory distress. Breath sounds: No wheezing, rhonchi or rales. Abdominal: Palpations: There is no mass. Tenderness: There is no abdominal tenderness. Musculoskeletal: Cervical back: Neck supple. Neurological: Mental Status: She is alert. Comments: Strapped in mechanical wheelchair. Spastic movement of upper extremities {ASSESSMENT/PLAN: 1. Nausea and vomiting, unspecified vomiting type - ICD9: 787.01, ICD10: R11.2 Currently asymptomatic. Exam is benign. Continue to monitor symptoms. Haja Coley MD Differential Diagnoses - Early gastroenteritis or viral illness - Reflux - Acute abdomen is less likely for the following reason(s): Benign exam and vitals Procedures Allergies As of Date: 08/26/2024 Noted Allergy Reaction AUGMENTIN (AMOXICILLIN-POT CLAVUL*10/16/2010 6 - Diarrhea Comments: Been on several times, but seems that diarrhea side effect was getting worse each time took OTHER [Other] 11/13/2004 Comments: X-RAY/RADIATION MICROWAVE/REMOTES PT HAS PACEMAKER-TYPE BOX IN CHEST TO HELP CONTROL SPASMS. POTASSIUM 04/13/2018 5 - Intolerance Date Reviewed: 08/26/2024 Reviewed by: Treasure Abdi MA - Fully Assessed Reason for Visit: Nausea AND Vomiting [237] Cmt: Fever started today Primary Visit Diagnosis:Nausea and vomiting, unspecified vomiting type [R11.2] Prescriptions as of 08/26/2024 - carboxymethylcellulose sodium (REFRESH OPHTHALMIC) Use in eyes. - citalopram hydrobromide (CELEXA) 10 mg tablet - citalopram (CELEXA) 20 mg tablet - VITAMIN D 25 mcg (1,000 unit) tab tablet - ascorbic acid, vitamin C, (VITAMIN C) 500 mg tablet - docusate sodium (COLACE) 100 mg capsule - Ferrous Gluconate (FERGON) 324 mg (38 mg iron) tablet - Azelastine HCl (OPTIVAR) 0.05 % ophthalmic solution - levothyroxine (SYNTHROID) 50 mcg tablet Take 50 mcg by mouth once daily. - polyethylene glycol 3350 (MIRALAX, GLYCOLAX) 17 gram/dose powder Take 17 g by mouth once daily. - ipratropium-albuterol (DUONEB) 0.5 mg-3 mg(2.5 mg base)/3 mL nebu Inhale 3 mL as instructed every 6 hours as needed. - FERROUS SULFATE ORAL Take by mouth. - apixaban (ELIQUIS) 5 mg tab(s) Take by mouth twice daily. - Mirtazapine (REMERON) 7.5 mg tablet Take 7.5 mg by mouth daily at bedtime. - ergocalciferol 50,000 unit capsule (VITAMIN D2, DRISDOL) Take 50,000 Units by mouth once every month. - FLUOXETINE HCL (PROZAC ORAL) Take 10 mL by mouth once daily. - Loratadine (ALLERGY RELIEF, LORATADINE,) 10 mg dissolvable tablet Take 1 tablet by mouth once daily. - DESITIN 40 % OINTMENT Apply to buttocks twice daily - COMPOUNDED PRESCRIPTION Light talker Prentke Romich Pathfinder Device with Table Mount, Wheelchair Mount and carrying case Diagnosis: Cerebral Palsy 343.8 Note: patient has no functional speech abilities - WHEELCHAIR CUSHION MISC Use daily for prevention of decubitus Meds Comments as of 02/09/2019: 02/09/19 The medications are managed by this patient by: CAREGIVER Belkis Keller Percentil Problem List As Of Date 08/26/2024 Noted Resolved Cerebral palsy (HCC) [G80.9] Depression [F32.A] CONSTIPATION NOS [K59.00] 0 (more content not included)... Normal [facility] Urgent Care Visit Reporton 0 08-10-2024 Urgent Care Visit Report [facility] [address], [address] [place] [address] OFFICE VISIT Date of Service: 08/10/24 MR#: [id number] Acct: [id number] Name: TONYA FLETCHER Rep #: [id number] 1 : 1960 Provider: XUAN Casey Age/Sex: 64/F Location: [facility] Status: Signed Intake Vital Signs 04/21/24 13:58 08/10/24 14:47 08/10/24 14:49 Height 5 ft 5 ft BP 120/80 Position Sitting Pulse 74 Pulse Oximetry (%) 93 Oxygen Delivery Method room air Intake Visit Reasons: NUSEA/DIARRHEA Accompanied by: Caregiver Allergies amoxicillin trihydrate (From Augmentin) Adverse Reaction (Verified 08/10/24 14:57) Unknown potassium clavulanate (From Augmentin) Adverse Reaction (Verified 08/10/24 14:57) Unknown Medications ???Medication ???Instructions ???Recorded ???Confirmed ???Type loratadine 10 mg tablet 10 mg PO DAILY@0800 ALLERGIES 07/0 4/15 08/10/24 History mirtazapine 7.5 mg tablet 7.5 mg PO QHS@1999 DEPRESSION 05/0808/10/24 History azelastine 0.05 % eye drops 0.05 drp EACH EYE BID@0800,199908/10/24 History DRY EYES apixaban 5 mg tablet 5 mg PO BID BLOOD THINNER 11/23/18 08/10/24 History ascorbic acid (vitamin C) 500 mg 500 mg PO DAILY@0800 SUPPLEMENT 08/10/24 History tablet carboxymethylcellulose sodium 0.5 1 drp EACH EYE TID 01/02/2208/10 History % eye drops (Refresh Tears) cholecalciferol (vitamin D3) 25 25 mcg PO DAILY@0800 SUPPLEMENT 08/10/24 History mcg (1,000 unit) chewable tablet (Vitamin D3) ferrous gluconate 324 mg (38 mg 324 mg PO DAILY@0800 SUPPLEMENT 08/10/24 History iron) tablet levothyroxine 50 mcg tablet 50 mcg PO DAILY@0600 THYROID 01/0208/10/24 History omeprazole 40 mg capsule,delayed 40 mg PO DAILY@0700 GERD 01/02/22 08/10/24 History release ondansetron 4 mg disintegrating 4 mg PO TID PRN nausea and 4 08/10/24 Rx tablet vomiting #21 tabs GENERAL PROTECTION LOTION topical 07/31/23 08/10/24 History acetaminophen 160 mg/5 mL oral 500 mg PO Q6H PRN 07/31/23 5 History elixir bisacodyl 10 mg/30 mL enema (Fleet 5 mg [place] DAILY PRN 07/31/2308/10 History Bisacodyl) bismuth subsalicylate 525 mg/15 mL 1,050 mg PO .4X DAILY PRN 08/10/24 History oral suspension (Pepto-Bismol Max St) carboxymethylcellulose sodium 0.5 1 drp ophthalmic (eye) 4-6XD PRN 07/31/23 08/10/24 History % eye drops (Refresh Tears) citalopram 10 mg tablet 10 mg PO DAILY 07/31/23 08/10/24 H istory citalopram 20 mg tablet 20 mg PO DAILY 07/31/23 08/10/24 H istory ipratropium 0.5 mg-albuterol 3 mg 3 ml inhalation Q4H PRN shortness 07/31/23 08/10/24 History (2.5 mg base)/3 mL nebulization of breath or wheezing soln terbinafine HCl 1 % topical cream 1 applic topical BID PRN 10/08/23 08/10/24 History hydrocodone-acetaminoph en 5-325mg 1 tab PO Q6H PRN PRN pain, severe 12/21/23 08/10/24 Rx 5mg-325mg 3 days #10 TABLETS guaifenesin 100 mg/5 mL oral liquid 200 mg (10 mL) PO Q4H PRN 04/2108/10/24 Rx congestion #1,000 mL clindamycin HCl 300 mg capsule 300 mg PO TID #21 caps 05/18/24 Rx docusate sodium 100 mg capsule 100 mg PO Q OTHER DAY #15 caps 08/10/24 Rx Nurse's Note: Patient has nausea and diarrhea for 2 days now. Patient caregiver thinks its from her giving her Juice cause the Patient is always constipated. Caregiver said she has given her apple juice and Prune juice. patient has a accident yesterday at day care and then she said she had one today but the caregiver thinks it was just a normal BM today. [facility] Medical History (Updated 08/10/24 @ 15:41 by Christ GOVEA, PA) Diarrhea Nausea Intellectual developmental disorder, severe Urinary incontinence History of aspiration pneumonia Sore throat Hypothyroidism Cerebral palsy History of airway aspiration Health care maintenance Anxiety and depression History of pulmonary embolism Gastroenteritis URI (upper respiratory infection) neurostimulater Pacemaker metal gavi rt leg Hyperlipidemia Insomnia Fecal impaction Barretts esophagus Pulmonary embolism Vitamin D deficiency Allergic rhinitis GERD (gastroesophageal reflux disease) Depression Surgical History Hx of cataract removal with insertion of prosthetic lens Family History Father Pulmonary embolism Alcoholism Mother CVA (cerebral vascular accident) Social History Smoking Status: Never smoker alcohol intake: current alcohol intake frequency: 0-2 drinks per day substance use type: does not use and other details: THC LAST (more content not included)... Normal [facility] Calculated very low density lipoprotein (VLDL) cholesterol measurementOrdered By: Michelle Marroquin on 06-11-2024 Calculated very low density lipoprotein (VLDL) cholesterol measurement 15 mg/dL - [facility] VLDL Cholesterol 15 mg/dL -40 [facility] Internal Medicine Office Vis brittnee 06-11-2024 Internal Medicine Office Visit [facility] [address] [place] [address] [place], [place] [address] OFFICE VISIT Date of Service: 06/11/24 MR#: [id number] Acct: [id number] Name: TONYA FLETCHER Rep #: [id number] : 1960 Provider: Dr. Michelle brambila MD Age/Sex: 63/F Location: [facility] Status: Signed Intake Vital Signs 10/08/23 15:03 04/21/24 13:58 06/11/24 13:09 Height 5 ft 5 ft BP 108/56 L Blood Pressure Location Lt brachial Position Sitting Respiration 18 Pulse 82 Pulse Source Monitor Temp 98.2 F Temp Source Temporal Pulse Oximetry (%) 96 Oxygen Delivery Method room air Intake Visit Reasons: 6 M FU Chief Complaint: 6 M FU Is patient in pain?: No Allergies amoxicillin trihydrate (From Augmentin) Adverse Reaction (Verified 06/11/24 13:11) Unknown potassium clavulanate (From Augmentin) Adverse Reaction (Verified 06/11/24 13:11) Unknown Medications ???Medication ???Instructions ???Recorded ???Confirmed ???Type loratadine 10 mg tablet 10 mg PO DAILY@0800 ALLERGIES 07/0 06/2206/11/24 History mirtazapine 7.5 mg tablet 7.5 mg PO QHS@1999 DEPRESSION 05/0806/11/24 History azelastine 0.05 % eye drops 0.05 drp EACH EYE BID@0800,199906/11/24 History DRY EYES apixaban 5 mg tablet 5 mg PO BID BLOOD THINNER 11/23/18 06/11/24 History ascorbic acid (vitamin C) 500 mg 500 mg PO DAILY@0800 SUPPLEMENT 06/11/24 History tablet carboxymethylcellulose sodium 0.5 1 drp EACH EYE TID 01/02/2206/11 History % eye drops (Refresh Tears) cholecalciferol (vitamin D3) 25 25 mcg PO DAILY@0800 SUPPLEMENT 06/11/24 History mcg (1,000 unit) chewable tablet (Vitamin D3) ferrous gluconate 324 mg (38 mg 324 mg PO DAILY@0800 SUPPLEMENT 06/11/24 History iron) tablet levothyroxine 50 mcg tablet 50 mcg PO DAILY@0600 THYROID 01/0206/11/24 History omeprazole 40 mg capsule,delayed 40 mg PO DAILY@0700 GERD 01/02/22 06/11/24 History release ondansetron 4 mg disintegrating 4 mg PO TID PRN nausea and 4 06/11/24 Rx tablet vomiting #21 tabs GENERAL PROTECTION LOTION topical 07/31/23 06/11/24 History acetaminophen 160 mg/5 mL oral 500 mg PO Q6H PRN 07/31/23 5 History elixir bisacodyl 10 mg/30 mL enema (Fleet 5 mg [place] DAILY PRN 07/31/2306/11 History Bisacodyl) bismuth subsalicylate 525 mg/15 mL 1,050 mg PO .4X DAILY PRN 06/11/24 History oral suspension (Pepto-Bismol Max St) carboxymethylcellulose sodium 0.5 1 drp ophthalmic (eye) 4-6XD PRN 07/31/23 06/11/24 History % eye drops (Refresh Tears) citalopram 10 mg tablet 10 mg PO DAILY 07/31/23 06/11/24 H istory citalopram 20 mg tablet 20 mg PO DAILY 07/31/23 06/11/24 H istory docusate sodium 100 mg capsule 100 mg PO Q2D@1600 STOOL 07/31/23 06/11/24 History ipratropium 0.5 mg-albuterol 3 mg 3 ml inhalation Q4H PRN shortness 07/31/23 06/11/24 History (2.5 mg base)/3 mL nebulization of breath or wheezing soln terbinafine HCl 1 % topical cream 1 applic topical BID PRN 10/08/23 06/11/24 History hydrocodone-acetaminoph en 5-325mg 1 tab PO Q6H PRN PRN pain, severe 12/21/23 06/11/24 Rx 5mg-325mg 3 days #10 TABLETS guaifenesin 100 mg/5 mL oral liquid 200 mg (10 mL) PO Q4H PRN 04/2106/11/24 Rx congestion #1,000 mL clindamycin HCl 300 mg capsule 300 mg PO TID #21 caps 05/18/24 Rx Nurse's Note: pt's YARROW GATHERER accompanied her to appt today. she reports no changes to medications, medical/surgical history or allergies. [facility] Medical History (Updated 06/11/24 @ 17:[address] Michelle Marroquin MD) Intellectual developmental disorder, severe Urinary incontinence History of aspiration pneumonia Sore throat Hypothyroidism Cerebral palsy History of airway aspiration Health care maintenance Anxiety and depression History of pulmonary embolism Gastroenteritis URI (upper respiratory infection) neurostimulater Pacemaker metal gavi rt leg Hyperlipidemia Insomnia Fecal impaction Barretts esophagus Pulmonary embolism Vitamin D deficiency Allergic rhinitis GERD (gastroesophageal reflux disease) Depression Surgical History Hx of cataract removal with insertion of prosthetic lens Family History Father Pulmonary embolism Alcoholism Mother CVA (cerebral vascular accident) Social History Smoking Status: Never smoker alcohol intake: current alcohol intake frequency: 0-2 drinks per day substance use type: does not use and other details: THC LAST USED ON 07/20/23 seatbelt use: always HPI HPI Chief Complaint: 6 M FU Details: TONYA FLETCHER, is a 63 F who (more content not included)... Normal [facility] LDL calc ser/plasOrdered By: Michelle Marroquin on 06-11-2024 Cholesterol in LDL [Mass/Vol] 123 mg/dL [facility] Comment on above: Ifwabscnir=208-764 m g/dL & Higher Ygkb=791 mg/dL or greater LDL Cholesterol, Calculated 123 mg/dL [facility] Comment on above: Migfckitxs=222-090 m g/dL & Higher Zfan=200 mg/dL or greater Lipid Profileon 06-11-2024 CHOL:HDL 3.11 Normal [facility] Comment on above: Performed By: #### L 506.1001, L500.4100 #### [facility] [address] [place], [place], [id number] Cholesterol [Mass/Vol] 204 mg/dL High <=200 [facility] Comment on above: Result Comment: Chol esterol level, Desirable <200 mg/dL Borderline high cholesterol 200-239 mg/dL High cholesterol >=240 mg/dL Recommendations of the NCEP Adult Treatment Panel for the following risk-cutoff thresholds for the [place] population. Performed By: #### L 506.1001, L500.4100 #### [facility] [address] [place], [address] Cholesterol in HDL [Mass/Vol] 66 mg/dL Normal [facility] Comment on above: Result Comment: Ludmila onal Cholesterol Education Program (NCEP) guidelines: <40 mg/dL: Low HDL-cholesterol (major risk factor for CHD) >= 60 mg/dL: High HDL-cholesterol (negative risk factor for CHD) HDL-cholesterol is affected by a number of factors, e.g. smoking, exercise, hormones, sex and age. Performed By: #### L 506.1001, L500.4100 #### [facility] [address] [place], [address] Cholesterol in LDL [Mass/Vol] 123 mg/dL Normal [facility] Comment on above: Result Comment: Bord zcadxa=934-179 mg/dL Higher Kjiq=843 mg/dL or greater Performed By: #### L 506.1001, L500.4100 #### [facility] [address] [place], [address] Cholesterol in VLDL [Mass/Vol] 15 mg/dL Normal 5-40 [facility] Comment on above: Performed By: #### L 506.1001, L500.4100 #### [facility] [address] [place], [address] Triglyceride [Mass/Vol] 75 mg/dL Normal [facility] Comment on above: Result Comment: The drugs N-Acetylcysteine and Metamizole may falsely depress this assay. Normal range: <150 mg/dL Borderline High: 150-199 mg/dL High: 200-499 mg/dL Very High: >500 mg/dL Performed By: #### L 506.1001, L500.4100 #### [facility] [address] [place], [address] Screening total cholesterol/ high density lipoprotein (HDL) cholesterol ratioOrdered By: Michelle Marroquin on 06-11-2024 Cholesterol.total/Tanvi sterol in HDL [Mass ratio] 3.11 {ratio} [facility] Serum or plasma cholesterol in HDL measurement (mass/volume)Ordered By: Michelle Marroquin on 06-11-2024 Cholesterol in HDL [Mass/Vol] 66 mg/dL >40 [facility] Comment on above: National Cholesterol Education Program (NCEP) guidelines:<40 mg/dL: Low HDL-cholesterol (major risk factor for CHD)>= 60 mg/dL: High HDL-cholesterol (negative risk factor for CHD)HDL-cholesterol is affected by a number of factors, e.g. smoking, exercise, hormones, sex and age. Serum or plasma cholesterol measurement (mass/volume)Ordered By: Michelle Marroquin on 06-11-2024 Cholesterol [Mass/Vol] 204 mg/dL High <201 [facility] Comment on above: Cholesterol level, D esirable <200 mg/dLBorderline high cholesterol 200-239 mg/dLHigh cholesterol >=240 mg/dLRecommendations of the NCEP Adult Treatment Panel for the following risk-cutoff thresholds for the [place] population. Triglycerides measurementOrd ered By: Michelle Marroquin on 06-11-2024 Triglyceride [Mass/Vol] 75 mg/dL <199 [facility] Comment on above: The drugs N-Acetylcy steine and Metamizole may falsely depress this assay. Normal range: <150 mg/dLBorderline High: 150-199 mg/dLHigh: 200-499 mg/dLVery High: >500 mg/dL Vitamin D, 25-hydroxyOrdered By: Michelle Marroquin on 06-11-2024 Vitamin D 25-Hydroxy 35.0 ng/mL 30-100 [facility] Comment on above: Vitamin D StatusDefi ciency: <20 ng/mL (50nmol/L)Insufficiency: 20-30 ng/mL (50-75 nmol/L)Sufficiency: 30-100 ng/mL (75-250 nmol/L)Toxicity: >100 ng/mL (>250 nmol/L) Vitamin D,25 Hydroxyon 06-11 Vitamin D 25-OH 35.0 ng/mL Normal 30-100 [facility] Comment on above: Result Comment: Ct min D Status Deficiency: <20 ng/mL (50nmol/L) Insufficiency: 20-30 ng/mL (50-75 nmol/L) Sufficiency: 30-100 ng/mL (75-250 nmol/L) Toxicity: >100 ng/mL (>250 nmol/L) Performed By: #### L 506.1001, L500.4100 #### [facility] [address] [place], [address] Urgent Care Visit Reporton 0 05-18-2024 Urgent Care Visit Report [facility] [address], [address] [place], [place] [address] OFFICE VISIT Date of Service: 05/18/24 MR#: [id number] Acct: [id number] Name: TONYA FLETCHER Rep #: [id number] : 1960 Provider: XUAN Casey Age/Sex: 63/F Location: [facility] Status: Signed Intake Vital Signs 04/21/24 13:58 05/18/24 17:06 Height 5 ft BP 110/64 110/70 Blood Pressure Location Lt brachial Lt brachial Position Sitting Sitting Respiration 18 14 Pulse 92 76 Pulse Source Monitor Auscultation Temp 98.4 F 98.2 F Temp Source Temporal Oral Pulse Oximetry (%) 95 Oxygen Delivery Method room air Intake Visit Reasons: TOOTH PAIN/CONCERN FOR INFECTION Chief Complaint: COUGH/SORE THROAT/FLU COVID NEGATIVE Allergies amoxicillin trihydrate (From Augmentin) Adverse Reaction (Verified 04/21/24 13:52) Unknown potassium clavulanate (From Augmentin) Adverse Reaction (Verified 04/21/24 13:52) Unknown [facility] Medical History (Updated 04/21/24 @ 14:[address] Michelle Marroquin MD) History of aspiration pneumonia Sore throat Hypothyroidism Cerebral palsy History of airway aspiration Health care maintenance Anxiety and depression History of pulmonary embolism Gastroenteritis URI (upper respiratory infection) neurostimulater Pacemaker metal gavi rt leg Hyperlipidemia Insomnia Fecal impaction Barretts esophagus Pulmonary embolism Vitamin D deficiency Allergic rhinitis GERD (gastroesophageal reflux disease) Depression Surgical History Hx of cataract removal with insertion of prosthetic lens Family History Father Pulmonary embolism Alcoholism Mother CVA (cerebral vascular accident) Social History Smoking Status: Never smoker alcohol intake: current alcohol intake frequency: 0-2 drinks per day substance use type: does not use and other details: THC LAST USED ON 07/20/23 seatbelt use: always HPI HPI Chief Complaint: COUGH/SORE THROAT/FLU COVID NEGATIVE Details: TONYA FLETCHER, is a 63 F who presents to the office today for complaints of several day history of left lower tooth pain. Caregiver notes Tonya is in significant pain and has been searching for dental offices to take her, saying the nearest appointment should get his approximately 1 month from now. Caregiver states she notes no complaints of fever, chills, sweats - though does express localized tenderness to palpation. No [id number] medications taken to assist. No other associated symptoms and no other alleviating/aggravating factors. ROS Const Constitutional: No other (As above) Exam Const General: cooperative, healthy appearing and no acute distress Orientation: alert and awake HENMT Head: normal to inspection Ears: hearing grossly normal bilaterally and external ears normal Nose: external nose normal Face and sinus: normal facial exam, sinuses nontender and face symmetric Mouth: oral mucosae normal, lip normal, tongue normal, oropharynx normal and moist mucous membranes Teeth and gingiva: abnormal tooth or associated gingiva (L lower molar dental carry w/ circumferential gingival erythema/swelling) Neck Neck: normal visual inspection, no lymphadenopathy, no meningeal signs and supple Chest Chest palpation inspection: normal inspection of the chest Resp Effort Inspection: normal respiratory effort and able to speak in complete sentences Cardio Rate: regular rate Pulses: radial pulses present Skin General: no rashes or lesions noted Neuro General: patient alert, patient awake Psych Appearance: grossly normal Diagnoses Infected dental caries K02.9; K04.7 Assessment and Plan Assessment and Plan (1) Infected dental caries: Status: Acute Plan: Clindamycin as prescribed today. Supportive measures as instructed today. Follow-up with dentist as previously scheduled, ED sooner should symptoms worsen or any other concerns develop. Caregiver states acknowledging understanding all the above. Coding Level of Care Code Off vis,est,level 3 Assessment and Plan Assessment and Plan Medications: New clindamycin HCl 300 mg PO TID 21 caps 0RF 05/18/24 1711 Date Christ Valentino Signature: Date (if applicable) CC: Normal [facility] Absolute lymphocyte countOrd ered By: Michelle Marroquin on 04-21-2024 Lymphocytes Auto (Unsp spec) [#/Vol] 2.12 10*3/uL 0.83-4.51 [facility] Absolute neutrophil countOrd ered By: [facility] Neriarmaan on 04-21-2024 Neutrophils (Bld) [#/Vol] 2.9 10*3/uL 2.0-7.7 [facility] Albumin to globulin ratioOrd ered By: [facility] Daronarmaan on 04-21-2024 Albumin/Globulin [Mass ratio] 0.8 {ratio} Low 0.9-2.4 [facility] Automated lymphocyte count a s percentage of total leukocytesOrdered By: [facility] Neriarmaan on 04-21-2024 Lymphocytes/100 WBC Auto (Unsp spec) 33.8 % 19-41 [facility] Basophil percentageOrdered B y: Michelle Marroquin on 04-21-2024 Basophils/100 WBC (Bld) 1.0 % 0-1 [facility] Bilirubin, totalOrdered By: jorge Marroquin on 04-21-2024 Bilirubin [Mass/Vol] 0.30 mg/dL 0.20-1.00 [facility] Comment on above: For patients on eltr ombopag therapy, use of Dimension [place] TBIL is not recommended. Blood urea nitrogen (BUN)/cr eatinine ratioOrdered By: Michelle Marroquin on 04-21-2024 Urea nitrogen/Creatinine [Mass ratio] 9.6 mg/mg Low 10-20 [facility] CBC W/Diff, Automatedon 04-10 Absolute Lymph 2.12 X10 3/uL Normal 0.83-4.51 [facility] Comment on above: Performed By: #### L 500.4050, L100.0100 #### [facility] [address] [place], [address] Absolute Neut 2.9 X10 3/uL Normal 2.0-7.7 [facility] Comment on above: Performed By: #### L 500.4050, L100.0100 #### [facility] [address] [place], [address] Basophils/100 WBC (Bld) 1.0 % Normal 0-1 [facility] Comment on above: Performed By: #### L 500.4050, L100.0100 #### [facility] [address] [place], [address] Eosinophils/100 WBC (Bld) 7.5 % High 0-5 [facility] Comment on above: Performed By: #### L 500.4050, L100.0100 #### [facility] [address] [place], [address] Erythrocyte distribution width (RBC) [Ratio] 14.7 % High 11.6-14.6 [facility] Comment on above: Performed By: #### L 500.4050, L100.0100 #### [facility] [address] [place], [address] Hematocrit (Bld) [Volume fraction] 42.2 % Normal 37-47 [facility] Comment on above: Performed By: #### L 500.4050, L100.0100 #### [facility] [address] [place], [address] Hemoglobin (Bld) [Mass/Vol] 13.6 g/dL Normal 12.0-15.0 [facility] Comment on above: Performed By: #### L 500.4050, L100.0100 #### [facility] [address] [place], [address] IG% 0.300 Normal 0.0-0.9 [facility] Comment on above: Result Comment: IG% - Immature Granulocytes (promyelocytes, myelocytes and metamyelocytes) > 1% indicates that a LEFT SHIFT is Present. Performed By: #### L 500.4050, L100.0100 #### [facility] [address] [place], [address] Lymphocytes/100 WBC (Bld) 33.8 % Normal 19-41 [facility] Comment on above: Performed By: #### L 500.4050, L100.0100 #### [facility] [address] [place], [address] MCH (RBC) [Entitic mass] 31.6 pg Normal 27.0-32.0 [facility] Comment on above: Performed By: #### L 500.4050, L100.0100 #### [facility] [address] [place], [address] MCHC (RBC) [Mass/Vol] 32.2 g/dL Normal 32-36 [facility] Comment on above: Performed By: #### L 500.4050, L100.0100 #### [facility] [address] [place], [address] MCV (RBC) [Entitic vol] 98.1 fL Normal 81-99 [facility] Comment on above: Performed By: #### L 500.4050, L100.0100 #### [facility] [address] [place], [address] Monocytes/100 WBC (Bld) 11.6 % High 0-10 [facility] Comment on above: Performed By: #### L 500.4050, L100.0100 #### [facility] [address] [place], [address] Neutrophils/100 WBC (Bld) 45.8 % Low 47-70 [facility] Comment on above: Performed By: #### L 500.4050, L100.0100 #### [facility] [address] [place], [address] Nucleated RBC (Bld) [#/Vol] 0 10*3/uL Normal 0-5 [facility] Comment on above: Performed By: #### L 500.4050, L100.0100 #### [facility] [address] [place], [address] Platelet mean volume (Bld) [Entitic vol] 11.8 fL Normal 6.2-12.0 [facility] Comment on above: Performed By: #### L 500.4050, L100.0100 #### [facility] [address] [place], [address] Platelets (Bld) [#/Vol] 280 10*3/uL Normal 150-450 [facility] Comment on above: Performed By: #### L 500.4050, L100.0100 #### [facility] [address] [place], [address] RBC (Bld) [#/Vol] 4.30 10*6/uL Normal 4.2-5.4 [facility] Comment on above: Performed By: #### L 500.4050, L100.0100 #### [facility] [address] [place], [address] RDW SD 53.1 fl High 35.1-43.9 [facility] Comment on above: Performed By: #### L 500.4050, L100.0100 #### [facility] [address] [place], [address] WBC (Bld) [#/Vol] 6.3 10*3/uL Normal 4.4-11.0 [facility] Comment on above: Performed By: #### L 500.4050, L100.0100 #### [facility] [address] [place], [address] Absolute Neut Normal 2.0-7.7 [facility] Comment on above: Result Comment: DUPL ICATE' Performed By: #### L 100.0100, L501.9520 #### [facility] [address] [place], [address] HCT Normal 37-47 [facility] Comment on above: Result Comment: DUPL ICATE' Performed By: #### L 100.0100, L501.9520 #### [facility] [address] [place], [address] HGB Normal 12.0-15.0 [facility] Comment on above: Result Comment: DUPL ICATE' Performed By: #### L 100.0100, L501.9520 #### [facility] [address] [place], [address] MCH Normal 27.0-32.0 [facility] Comment on above: Result Comment: DUPL ICATE' Performed By: #### L 100.0100, L501.9520 #### [facility] [address] [place], [address] MCHC Normal 32-36 [facility] Comment on above: Result Comment: DUPL ICATE' Performed By: #### L 100.0100, L501.9520 #### [facility] [address] [place], [address] MCV Normal 81-99 [facility] Comment on above: Result Comment: DUPL ICATE' Performed By: #### L 100.0100, L501.20 #### [facility] [address] [place], [address] NEUT% Normal 47-70 [facility] Comment on above: Result Comment: DUPL ICATE' Performed By: #### L 100.0100, L501.20 #### [facility] [address] [place], [address] PLT Normal 150-450 [facility] Comment on above: Result Comment: DUPL ICATE' Performed By: #### L 100.0100, L501.20 #### [facility] [address] [place], [address] RBC Normal 4.2-5.4 [facility] Comment on above: Result Comment: DUPL ICATE' Performed By: #### L 100.0100, L501.20 #### [facility] [address] [place], [address] RDW CV Normal 11.6-14.6 [facility] Comment on above: Result Comment: DUPL ICATE' Performed By: #### L 100.0100, L501.20 #### [facility] [address] [place], [address] RDW SD Normal 35.1-43.9 [facility] Comment on above: Result Comment: DUPL ICATE' Performed By: #### L 100.0100, L501.20 #### [facility] [address] [place], [address] WBC Normal 4.4-11.0 [facility] Comment on above: Result Comment: DUPL ICATE' Performed By: #### L 100.0100, L501.20 #### [facility] [address] [place], [address] Carbon dioxide measurementOr dered By: Michelle Marroquin on 04-21-2024 CO2 [Moles/Vol] 30.0 mmol/L 21.0-32.0 [facility] Chloride measurementOrdered By: Michelle Marroquin on 04-21-2024 Chloride [Moles/Vol] 103 mmol/L 98-107 [facility] Comprehensive Metabolic Prof ilon 04-21-2024 Albumin [Mass/Vol] 3.5 g/dL Normal 3.2-5.0 [facility] Comment on above: Performed By: #### L 500.4050, L100.0100 #### [facility] [address] [place], [address] Albumin/Globulin [Mass ratio] 0.8 {ratio} Low 0.9-2.4 [facility] Comment on above: Performed By: #### L 500.4050, L100.0100 #### [facility] [address] [place], [address] ALK P 101 U/L Normal 45-117 [facility] Comment on above: Performed By: #### L 500.4050, L100.0100 #### [facility] [address] [place], [address] ALT [Catalytic activity/Vol] 15 U/L Normal 13-56 [facility] Comment on above: Performed By: #### L 500.4050, L100.0100 #### [facility] [address] [place], [address] AST [Catalytic activity/Vol] 15 U/L Normal 15-37 [facility] Comment on above: Performed By: #### L 500.4050, L100.0100 #### [facility] [address] [place], [address] Bilirubin [Mass/Vol] 0.30 mg/dL Normal 0.20-1.00 [facility] Comment on above: Result Comment: For patients on eltrombopag therapy, use of Dimension [place] TBIL is not recommended. Performed By: #### L 500.4050, L100.0100 #### [facility] [address] [place], [address] BUN/CRE 9.6 RATIO Low 10-20 [facility] Comment on above: Performed By: #### L 500.4050, L100.0100 #### [facility] [address] [place], [address] CA,Total 9.3 mg/dL Normal 8.5-10.1 [facility] Comment on above: Performed By: #### L 500.4050, L100.0100 #### [facility] [address] [place], [address] Chloride [Moles/Vol] 103 mmol/L Normal 98-107 [facility] Comment on above: Performed By: #### L 500.4050, L100.0100 #### [facility] [address] [place], [address] CO2 [Moles/Vol] 30.0 mmol/L Normal 21.0-32.0 [facility] Comment on above: Performed By: #### L 500.4050, L100.0100 #### [facility] [address] [place], [address] Creatinine [Mass/Vol] 0.52 mg/dL Low 0.55-1.02 [facility] Comment on above: Result Comment: The validity of the calculated GFR GFRAA in patients over 70 years has not been determined. Clinical correlation is essential. Performed By: #### L 500.4050, L100.0100 #### [facility] [address] [place], [address] EST GFR - AA 153 mL/min Normal >60 [facility] Comment on above: Result Comment: Afri can [place] GFR Calc Performed By: #### L 500.4050, L100.0100 #### [facility] [address] [place], [address] GAP 6 Normal 5-15 [facility] Comment on above: Performed By: #### L 500.4050, L100.0100 #### [facility] [address] [place], [address] GFR/1.73 sq M.predicted among non-blacks MDRD (S/P/Bld) [Vol rate/Area] 126 mL/min/{1.73_m2} Normal >60 [facility] Comment on above: Result Comment: Non- GFR Calc Performed By: #### L 500.4050, L100.0100 #### [facility] [address] [place], [address] Globulin (S) [Mass/Vol] 4.2 g/dL Normal 2.2-4.2 [facility] Comment on above: Performed By: #### L 500.4050, L100.0100 #### [facility] [address] [place], [address] Glucose [Mass/Vol] 95 mg/dL Normal 74-106 [facility] Comment on above: Performed By: #### L 500.4050, L100.0100 #### [facility] [address] [place], [address] Potassium [Moles/Vol] 4.4 mmol/L Normal 3.5-5.1 [facility] Comment on above: Performed By: #### L 500.4050, L100.0100 #### [facility] [address] [place], [address] Sodium [Moles/Vol] 139 mmol/L Normal 136-145 [facility] Comment on above: Performed By: #### L 500.4050, L100.0100 #### [facility] [address] [place], [address] T PROT 7.7 g/dL Normal 6.4-8.2 [facility] Comment on above: Performed By: #### L 500.4050, L100.0100 #### [facility] [address] [place], [address] Urea nitrogen [Mass/Vol] 5 mg/dL Low 7-18 [facility] Comment on above: Performed By: #### L 500.4050, L100.0100 #### [facility] [address] [place], [address] Eosinophil percentageOrdered By: Michelle Marroquin on 04-21-2024 Eosinophils/100 WBC (Bld) 7.5 % High 0-5 [facility] Erythrocyte distribution wid th (RBC) [Ratio]Ordered By: [facility] Marroquin on 04-21-2024 Erythrocyte distribution width (RBC) [Entitic vol] 53.1 fL High 35.1-43.9 [facility] Erythrocyte distribution wid th ratioOrdered By: [facility] Marroquin on 04-21-2024 Erythrocyte distribution width (RBC) [Ratio] 14.7 % High 11.6-14.6 [facility] Erythrocyte distribution wid th standard deviationOrdered By: [facility] Marroquin on 04-21-2024 Erythrocyte distribution width (RBC) [Ratio] 53.1 fl High 35.1-43.9 [facility] Estimated glomerular filtrat ion rate (GFR) AmericanOrdered By: Michelle Marroquin on 04-21-2024 Estimated GFR (MDRD) Amer 153 mL/min >60 [facility] Comment on above: GFR Calc Glomerular filtration rate ( GFR) estimationOrdered By: Michelle Marroquin on 04-21-2024 Estimated GFR (MDRD) Non-Af Amer 126 mL/min >60 [facility] Comment on above: Non- GFR Calc GFR/1.73 sq M.predicted among non-blacks MDRD (S/P/Bld) [Vol rate/Area] 126 mL/min/{1.73_m2} >60 [facility] Comment on above: Non- GFR Calc Glucose measurementOrdered B y: Michelle Marroquin on 04-21-2024 Glucose [Mass/Vol] 95 mg/dL 74-106 [facility] Hematocrit Auto (Bld) [Volum e fraction]Ordered By: Michelle Marroquin on 04-21-2024 Hematocrit (Bld) [Volume fraction] 42.2 % 37-47 [facility] Hemoglobin measurementOrdere d By: Michelle Marroquin on 04-21-2024 Hemoglobin (Bld) [Mass/Vol] 13.6 g/dL 12.0-15.0 [facility] Immature granulocytes/100 WB C Auto (Bld)Ordered By: Michelle Marroquin on 04-21-2024 Immature granulocytes/100 WBC (Bld) 0.300 % 0.0-0.9 [facility] Comment on above: IG% - Immature Granu locytes (promyelocytes, myelocytes and metamyelocytes) > 1% indicates that a LEFT SHIFT is Present. Influenza virus A and B and SARS-CoV-2 (COVID-19) and Respiratory syncytial virus RNAOrdered By: Michelle Marroquin on 04-21-2024 SARS-CoV-2 (COVID-19) RNA WILLIAM+probe Ql (Unsp spec) Influenzae A Abnormal [facility] Internal Medicine Office Vis iton 04-21-2024 Internal Medicine Office Visit [facility] [address] [place], [place] [address] OFFICE VISIT Date of Service: 04/21/24 MR#: [id number] Acct: [id number] Name: TONYA FLETCHER Rep #: [id number] : 1960 Provider: Dr. Michelle brambila MD Age/Sex: 63/F Location[place] [facility] Status: Signed Intake Vital Signs 04/09/24 20:32 04/21/24 13:58 Height 5 ft 5 ft BP 110/64 Blood Pressure Location Lt brachial Position Sitting Respiration 18 Pulse 92 Pulse Source Monitor Temp 98.4 F Temp Source Temporal Pulse Oximetry (%) 95 Oxygen Delivery Method room air Intake Visit Reasons: COUGH / SORE THROAT/ FLU COVID NEGATIVE Chief Complaint: COUGH/SORE THROAT/FLU COVID NEGATIVE Is patient in pain?: Yes (SORE THROAT) Pain scale (1-10): 10 Allergies amoxicillin trihydrate (From Augmentin) Adverse Reaction (Verified 04/21/24 13:52) Unknown potassium clavulanate (From Augmentin) Adverse Reaction (Verified 04/21/24 13:52) Unknown Medications ???Medication ???Instructions ???Recorded ???Confirmed ???Type loratadine 10 mg tablet 10 mg PO DAILY@0800 ALLERGIES /06/2204/21/24 History mirtazapine 7.5 mg tablet 7.5 mg PO QHS@1999 DEPRESSION 05/0804/21/24 History azelastine 0.05 % eye drops 0.05 drp EACH EYE BID@08,199904/21/24 History DRY EYES apixaban 5 mg tablet 5 mg PO BID BLOOD THINNER 11/23/18 04/21/24 History ascorbic acid (vitamin C) 500 mg 500 mg PO DAILY@0800 SUPPLEMENT 04/21/24 History tablet carboxymethylcellulose sodium 0.5 1 drp EACH EYE TID 01/02/2204/21 History % eye drops (Refresh Tears) cholecalciferol (vitamin D3) 25 25 mcg PO DAILY@0800 SUPPLEMENT 04/21/24 History mcg (1,000 unit) chewable tablet (Vitamin D3) ferrous gluconate 324 mg (38 mg 324 mg PO DAILY@0800 SUPPLEMENT 04/21/24 History iron) tablet levothyroxine 50 mcg tablet 50 mcg PO DAILY@0600 THYROID 01/0204/21/24 History omeprazole 40 mg capsule,delayed 40 mg PO DAILY@0700 GERD 01/02/22 04/21/24 History release ondansetron 4 mg disintegrating 4 mg PO TID PRN nausea and 4 04/21/24 Rx tablet vomiting #21 tabs GENERAL PROTECTION LOTION topical 07/31/23 04/21/24 History acetaminophen 160 mg/5 mL oral 500 mg PO Q6H PRN 07/31/23 5 History elixir bisacodyl 10 mg/30 mL enema (Fleet 5 mg [place] DAILY PRN 07/31/2304/21 History Bisacodyl) bismuth subsalicylate 525 mg/15 mL 1,050 mg PO .4X DAILY PRN 04/21/24 History oral suspension (Pepto-Bismol Max St) carboxymethylcellulose sodium 0.5 1 drp ophthalmic (eye) 4-6XD PRN 07/31/23 04/21/24 History % eye drops (Refresh Tears) citalopram 10 mg tablet 10 mg PO DAILY 07/31/23 04/21/24 H istory citalopram 20 mg tablet 20 mg PO DAILY 07/31/23 04/21/24 H istory docusate sodium 100 mg capsule 100 mg PO Q2D@1600 STOOL 07/31/23 04/21/24 History ipratropium 0.5 mg-albuterol 3 mg 3 ml inhalation Q4H PRN shortness 07/31/23 04/21/24 History (2.5 mg base)/3 mL nebulization of breath or wheezing soln terbinafine HCl 1 % topical cream 1 applic topical BID PRN 10/08/23 04/21/24 History hydrocodone-acetaminoph en 5-325mg 1 tab PO Q6H PRN PRN pain, severe 12/21/23 04/21/24 Rx 5mg-325mg 3 days #10 TABLETS guaifenesin 100 mg/5 mL oral liquid 200 mg (10 mL) PO Q4H PRN 04/21 Rx congestion #1,000 mL oseltamivir 75 mg capsule (Tamiflu) 75 mg PO BID 5 days #10 caps Rx Have you fallen in the past year?: Yes (FELL IN DECEMBER; NO INJURY) [facility] Medical History (Updated 04/21/24 @ 14:[address] Michelle Marroquin MD) History of aspiration pneumonia Sore throat Hypothyroidism Cerebral palsy History of airway aspiration Health care maintenance Anxiety and depression History of pulmonary embolism Gastroenteritis URI (upper respiratory infection) neurostimulater Pacemaker metal gavi rt leg Hyperlipidemia Insomnia Fecal impaction Barretts esophagus Pulmonary embolism Vitamin D deficiency Allergic rhinitis GERD (gastroesophageal reflux disease) Depression Surgical History Hx of cataract removal with insertion of prosthetic lens Family History Father Pulmonary embolism Alcoholism Mother CVA (cerebral vascular accident) Social History Smoking Status: Never smoker alcohol intake: current alcohol intake frequency: 0-2 drinks per day substance use type: does not use and other details: THC LAST USED ON 07/20/23 seatbelt use: always HPI HPI Chief Complaint: COUGH/SORE THROAT/FLU COVID NEGATIVE Details: TONYA FLETCHER, is a 63 F who presents to the office today for an acute visit. H (more content not included)... Normal [facility] Laboratory - Chemistry and C hemistry - challengeOrdered By: Michelle Marroquin on 04-21-2024 AST [Catalytic activity/Vol] 15 U/L 15-37 [facility] Lymphocytes Auto (Unsp spec) [#/Vol]Ordered By: Michelle Marroquin on 04-21-2024 Lymphocytes (Bld) [#/Vol] 2.12 10*3/uL 0.83-4.51 [facility] Lymphocytes/100 WBC Auto (Un sp spec)Ordered By: Michelle Marroquin on 04-21-2024 Lymphocytes/100 WBC (Bld) 33.8 % 19-41 [facility] M100.678on 04-21-2024 SARS-CoV-2 (COVID-19) Ab IA Ql Normal Reference Range = Negative FLUABV+SARS-CoV-2+RSV Pnl Resp WILLIAM+probe GeneXpert Instrument, PCR method SARS-CoV-2 (COVID 19) Negative INFLUENZA A A Positive A INFLUENZA B Negative RSV PCR Negative INFLUENZAE A Normal [facility] Comment on above: Performed By: #### M 100.678 ####[facility] [id number] [place], [address] MCV (mean corpuscular volume ) determinationOrdered By: Michelle Marroquin on 04-21-2024 MCV (RBC) [Entitic vol] 98.1 fL 81-99 [facility] Mean corpuscular hemoglobin (MCH) determinationOrdered By: Michelle Marroquin on 04-21-2024 MCH (RBC) [Entitic mass] 31.6 pg 27.0-32.0 [facility] Mean corpuscular hemoglobin concentration (MCHC) determinationOrdered By: Michelle Marroquin on 04-21-2024 MCHC (RBC) [Mass/Vol] 32.2 g/dL 32-36 [facility] Mean platelet volume determi nationOrdered By: Michelle Marroquin on 04-21-2024 Platelet mean volume (Bld) [Entitic vol] 11.8 fL 6.2-12.0 [facility] Monocyte percentageOrdered B y: Michelle Marroquin on 04-21-2024 Monocytes/100 WBC (Bld) 11.6 % High 0-10 [facility] Neutrophil percentageOrdered By: Michelle Marroquin on 04-21-2024 Neutrophils/100 WBC (Bld) 45.8 % Low 47-70 [facility] Nucleated red blood cell per centageOrdered By: Michelle Marroquin on 04-21-2024 Nucleated RBC/100 WBC (Bld) [Ratio] 0 % 0-5 [facility] Platelet countOrdered By: Leigha Marroquin on 04-21-2024 Platelets (Bld) [#/Vol] 280 10*3/uL 150-450 [facility] Potassium measurementOrdered By: Michelle Marroquin on 04-21-2024 Potassium [Moles/Vol] 4.4 mmol/L 3.5-5.1 [facility] RBC Auto (Bld) [#/Vol]Ordere d By: Michelle Marroquin on 04-21-2024 RBC (Bld) [#/Vol] 4.30 10*6/uL 4.2-5.4 [facility] Rapid group A Streptococcus antigen assay at point of careOrdered By: Michelle Marroquin on 04-21-2024 S. pyogenes Ag IA.rapid Ql (Throat) Negative [facility] S. pyogenes Ag IA.rapid Ql ( Throat)Ordered By: Michelle Marroquin on 04-21-2024 S. pyogenes Ag IA Ql (Unsp spec) Negative [facility] Serum anion gap measurementO rdered By: Michelle Marroquin on 04-21-2024 Anion gap [Moles/Vol] 6 mmol/L 5-15 [facility] Serum globulin measurementOr dered By: Michelle Marroquin on 04-21-2024 Globulin (S) [Mass/Vol] 4.2 g/dL 2.2-4.2 [facility] Serum or plasma alanine barrios otransferase (ALT) measurementOrdered By: Michelle Marroquin on 04-21-2024 ALT [Catalytic activity/Vol] 15 U/L 13-56 [facility] Serum or plasma albumin kamilah urement (mass/volume)Ordered By: Michelle Marroquin on 04-21-2024 Albumin [Mass/Vol] 3.5 g/dL 3.2-5.0 [facility] Serum or plasma alkaline sandrita sphatase measurementOrdered By: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 DAILY@0800 ALLERGIES 09/10/14 01/02/22 History mirtazapine 7.5 mg tablet 7.5 mg PO QHS@1999 DEPRESSION 05/19/17 01/01/22 History azelastine 0.05 % eye drops 0.05 drp EACH EYE BID@0800,199908/08/18 01/02/22 History DRY EYES apixaban 5 mg tablet 5 mg PO BID BLOOD THINNER 11/23/18 01/02/22 History ascorbic acid (vitamin C) 500 mg 500 mg PO DAILY@0800 SUPPLEMENT 01/02/22 01/02/22 History tablet carboxymethylcellulose sodium 0.5 1 drp EACH EYE TID 01/02/22 01/02/22 History % eye drops (Refresh Tears) cholecalciferol (vitamin D3) 25 25 mcg PO DAILY@0800 SUPPLEMENT 01/02/22 01/02/22 History mcg (1,000 unit) chewable tablet (Vitamin D3) ferrous gluconate 324 mg (38 mg 324 mg PO DAILY@0800 SUPPLEMENT 01/02/22 01/02/22 History iron) tablet levothyroxine 50 mcg tablet 50 mcg PO DAILY@0600 THYROID 01/02/22 01/02/22 History omeprazole 40 mg capsule,delayed 40 mg PO DAILY@0700 GERD 01/02/22 01/02/22 History release ondansetron 4 mg disintegrating 4 mg PO TID PRN nausea and 06/13/23 Unknown Rx tablet vomiting #21 tabs GENERAL PROTECTION LOTION topical 07/31/23 Unknown History acetaminophen 160 mg/5 mL oral 500 mg PO Q6H PRN 07/31/23 Unknown History elixir bisacodyl 10 mg/30 mL enema (Fleet 5 mg [place] DAILY PRN 07/31/23 Unknown History Bisacodyl) bismuth subsalicylate 525 mg/15 mL 1,050 mg PO .4X DAILY PRN 07/31/23 Unknown History oral suspension (Pepto-Bismol Max St) carbamide peroxide 6.5 % ear drops 10 drp otic (ear) DAILY 07/31/23 Unknown History carboxymethylcellulose sodium 0.5 1 drp ophthalmic (eye) 4-6XD PRN 07/31/23 Unknown History % eye drops (Refresh Tears) citalopram 10 mg tablet 10 mg PO DAILY 07/31/23 Unknown History citalopram 20 mg tablet 20 mg PO DAILY 07/31/23 Unknown History docusate sodium 100 mg capsule 100 mg PO Q2D@1600 STOOL 07/31/23 Unknown History guaifenesin 100 mg/5 mL oral liquid 200 mg PO Q4H PRN 07/31/23 Unknown History ipratropium 0.5 mg-albuterol 3 mg 3 ml inhalation Q4H PRN shortness 07/31/23 Unknown History (2.5 mg base)/3 mL nebulization of breath or wheezing soln melatonin 3 mg tablet 4.5 mg PO QHS PRN SLEEP 07/31/23 Unknown History neomycin-bacitracn Zn-polymyx 3.5 1 applic topical .4X DAILY PRN 07/31/23 Unknown History mg-400 unit-5,000 unit/gram top oint (Triple Antibiotic) terbinafine HCl 1 % topical cream 1 applic topical BID 07/31/23 Unknown History Allergy/AdvReac Type Severity Reaction Status Date / Time amoxicillin trihydrate (From AdvReac Unknown Verified 09/23/23 13:10 Augmentin) potassium clavulanate (From AdvReac Unknown Verified 09/23/23 13:10 Augmentin) Family History Father Pulmonary embolism Alcoholism Mother CVA (cerebral vascular accident) Surgical History Hx of cataract removal with insertion of prosthetic lens Social History Smoking Status: Never smoker alcohol intake: current alcohol intake frequency: 0-2 drinks per day substance use type: does not use and other details: THC LAST USED ON 07/20/23 seatbelt use: always ROS ROS ED ROS Narrative Limited secondary to cerebral palsy. Obtained through jail worke (more content not included)... Normal [facility] Foot min 3 Viewson 4 Foot min 3 Views [facility] Imaging Services [address] [place] [address] Foot min 3 Views MR#: [id number] Acct: [id number] Name: TONYA FLETCHER Rep #: [id number] : 1960 F 63 From: Colten caldwell MD PCP: Dr. Michelle Marroquin MD Status: REG ER Study: Foot min 3 Views Date of Exam: 09/23/23 Exam# [id number] Ordering Dr: [place] [id number] STUDY: X-RAY - LEFT FOOT CLINICAL: Female, 63 years old. Injury of the great toe. TECHNIQUE: 3 view(s) of the foot. COMPARISON: None. FINDINGS: There is demineralization of the rear and midfoot bones. Normal visualized subtalar, talonavicular, calcaneocuboid, tarsal and tarsometatarsal articulations. There is demineralization of the metatarsi. Normal metatarsophalangeal joint of the great toe. Normal tibial and fibular sesamoid bones. Normal interphalangeal joint of the great toe. Normal phalanges of the great toe. Normal second through fifth metatarsophalangeal joints. Normal interphalangeal joints and phalanges of the lesser toes. Diffuse soft tissue swelling. RAD/Foot min 3 Views IMPRESSION: Diffuse soft tissue swelling. Osteopenia of the visualized bony structures. Electronically Signed: Colten Justice MD at 14:31 EDT , CC: Dr. Gregory Coleman MD; Dr. 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: Signed Normal [facility] Absolute lymphocyte countOrd ered By: Rocky Barlow on 06-19-2023 Lymphocytes Auto (Unsp spec) [#/Vol] 2.86 10*3/uL 0.83-4.51 [facility] Automated lymphocyte count a s percentage of total leukocytesOrdered By: Rocky Barlow on 06-19-2023 Lymphocytes/100 WBC Auto (Unsp spec) 41.1 % 19-41 [facility] Basophil percentageOrdered B y: Rocky Barlow on 06-19-2023 Basophils/100 WBC (Bld) 1.0 % 0-1 [facility] Bilirubin [Mass/Vol] 0.30 mg/dL 0.20-1.00 [facility] Comment on above: For patients on eltr ombopag therapy, use of Dimension [place] TBIL is not recommended. Chloride [Moles/Vol] 107 mmol/L 98-107 [facility] Cholesterol [Mass/Vol] 178 mg/dL <200 [facility] Comment on above: <200 mg/dL Desirable 200-240 mg/dL Borderline >240 mg/dL High Risk Eosinophils/100 WBC (Bld) 3.9 % 0-5 [facility] Glucose [Mass/Vol] 92 mg/dL 74-106 [facility] Hemoglobin (Bld) [Mass/Vol] 13.0 g/dL 12.0-15.0 [facility] Monocytes/100 WBC (Bld) 7.0 % 0-10 [facility] Neutrophils (Bld) [#/Vol] 3.3 10*3/uL 2.0-7.7 [facility] Neutrophils/100 WBC (Bld) 46.7 % 47-70 [facility] Potassium [Moles/Vol] 4.2 mmol/L 3.5-5.1 [facility] Comment on above: Slight Hemolysis, Re sult may be falsely increased. Protein [Mass/Vol] 7.6 g/dL 6.4-8.2 [facility] Sodium [Moles/Vol] 139 mmol/L 136-145 [facility] Triglyceride [Mass/Vol] 110 mg/dL <199 [facility] Comment on above: The drugs N-Acetylcy steine and Metamizole may falsely depress this assay.Serum Triglycerides Reference Interval Normal <150 mg/dL Borderline high 150 - 199 mg/dL High 200 - 499 mg/dL Very High > or = 500 mg/dL WBC (Bld) [#/Vol] 7.0 10*3/uL 4.4-11.0 [facility] Blood platelet adequacy dete ction by light microscopyOrdered By: Rocky Barlow on 06-19-2023 Platelets LM Ql (Bld) ADEQUATE ADEQ [facility] Determination of erythrocyte mean corpuscular volume (MCV)Ordered By: Rocky Barlow on 06-19-2023 MCV (RBC) [Entitic vol] 97.6 fL 81-99 [facility] Erythrocyte distribution wid th ratioOrdered By: [facility] on 06-19-2023 Erythrocyte distribution width (RBC) [Ratio] 13.7 % 11.6-14.6 [facility] Erythrocyte distribution wid th standard deviationOrdered By: [facility] on 06-19-2023 Erythrocyte distribution width (RBC) [Entitic vol] 48.8 fL 35.1-43.9 [facility] Hematocrit Auto (Bld) [Volum e fraction]Ordered By: [facility] on 06-19-2023 Hematocrit (Bld) [Volume fraction] 41.0 % 37-47 [facility] Immature granulocytes/100 WB C Auto (Bld)Ordered By: [facility] 06-19-2023 Immature granulocytes/100 WBC (Bld) 0.300 % 0.0-0.9 [facility] Comment on above: IG% - Immature Granu locytes (promyelocytes, myelocytes and metamyelocytes) > 1% indicates that a LEFT SHIFT is Present. Laboratory - Chemistry and C hemistry - challengeOrdered By: [facility] 06-19-2023 Albumin/Globulin [Mass ratio] 0.9 {ratio} 0.9-2.4 [facility] ALP [Catalytic activity/Vol] 82 U/L 45-117 [facility] ALT [Catalytic activity/Vol] 15 U/L 13-56 [facility] Cholesterol in HDL [Mass/Vol] 47 mg/dL >40 [facility] Comment on above: The drugs N-Acetylcy steine and Metamizole may falsely depress this assay. Reference Range HDL <40 mg/dL Low HDL Cholesterol HDL >or= 60 mg/dL High HDL Cholesterol Cholesterol in LDL [Mass/Vol] 109 mg/dL 0-130 [facility] CO2 [Moles/Vol] 28.0 mmol/L 21.0-32.0 [facility] Globulin (S) [Mass/Vol] 3.9 g/dL 2.2-4.2 [facility] Urea nitrogen/Creatinine [Mass ratio] 13.7 mg/mg 10-20 [facility] Laboratory - Hematology and Cell countsOrdered By: [facility] 06-19-2023 Anisocytosis Ql (Bld) RARE [facility] MCH (RBC) [Entitic mass] 31.0 pg 27.0-32.0 [facility] MCHC (RBC) [Mass/Vol] 31.7 g/dL 32-36 [facility] Nucleated RBC/100 WBC (Bld) [Ratio] 0 % 0-5 [facility] Platelet mean volume (Bld) [Entitic vol] 11.2 fL 6.2-12.0 [facility] Macrocytes detectionOrdered By: Rocky Barlow on 06-19-2023 Macrocytes Ql (Bld) RARE [facility] No Panel InformationOrdered By: Rocky Barlow on 06-19-2023 Estimated GFR (MDRD) Amer 134 mL/min >60 [facility] Comment on above: GFR Calc Estimated GFR (MDRD) Non-Af Amer 111 mL/min >60 [facility] Comment on above: Non- GFR Calc Platelet Count TNP [facility] Comment on above: Test not performedPl ease note: For this sample, a platelet estimate is provided rather than a platelet count due to platelet clumping. Other parameters associated with this sample are not affected by platelet clumping. If a more accurate platelet count is required, a redraw of the patient will be necessary.Previous reported result: 84 [id number] by: SINGH on 06/19/23:1621 Vitamin D 25-Hydroxy 50.8 ng/mL [facility] Comment on above: Vitamin D 25(OH) Sta tus Range Deficiency <20 ng/mL (50nmol/L) Insufficiency 20 - 30 ng/mL (50 - 75 nmol/L) Sufficiency 30 - 100 ng/mL (75 - 250 nmol/L) Toxicity >100 ng/mL (>250 nmol/L) VLDL Cholesterol 22 mg/dL 5-40 [facility] RBC Auto (Bld) [#/Vol]Ordere d By: Rocky Barlow on 06-19-2023 RBC (Bld) [#/Vol] 4.20 10*6/uL 4.2-5.4 [facility] RBC morphologyOrdered By: Jong Barlow on 06-19-2023 RBC morphology finding Nom (Bld) N CHROM NORMAL NORM C&C [facility] Serum or plasma calcium kamilah urement (mass/volume)Ordered By: Rocky Barlow on 06-19-2023 Calcium [Mass/Vol] 9.1 mg/dL 8.5-10.1 [facility] Serum or plasma creatinine m easurement (mass/volume)Ordered By: Rocky Barlow on 06-19-2023 Creatinine [Mass/Vol] 0.58 mg/dL 0.55-1.02 [facility] Comment on above: The validity of the calculated GFR & GFRAA in patients over 70 years has not been determined. Clinical correlation is essential. Serum or plasma thyroid stim ulating hormone (TSH) measurement (units/volume)Ordered By: Rocky Barlow on 06-19-2023 TSH Qn 2.27 uIU/mL 0.358-3.74 [facility] Serum or plasma urea nitroge n measurement (mass/volume)Ordered By: Rocky Barlow on 06-19-2023 Urea nitrogen [Mass/Vol] 8 mg/dL 7-18 [facility] Thin prep Papanicolaou smear with manual screeningOrdered By: Rocky Barlow on 06-19-2023 Thin prep Papanicolaou smear with manual screening 3.7 g/dL 3.2-5.0 [facility] Thin prep Papanicolaou smear with manual screening 17 U/L 15-37 [facility] Comment on above: Slight Hemolysis, Re sult may be falsely increased. Thin prep Papanicolaou smear with manual screening 4 5-15 [facility] Absolute lymphocyte countOrd ered By: Haresh Curtis on 06-13-2023 Lymphocytes Auto (Unsp spec) [#/Vol] 1.11 10*3/uL 0.83-4.51 [facility] Automated lymphocyte count a s percentage of total leukocytesOrdered By: Haresh Curtis on 06-13-2023 Lymphocytes/100 WBC Auto (Unsp spec) 12.4 % 19-41 [facility] Basophil percentageOrdered B y: Haresh Curtis on 06-13-2023 Basophils/100 WBC (Bld) 0.3 % 0-1 [facility] Bilirubin [Mass/Vol] 0.60 mg/dL 0.20-1.00 [facility] Comment on above: For patients on eltr ombopag therapy, use of Dimension [place] TBIL is not recommended. Chloride [Moles/Vol] 105 mmol/L 98-107 [facility] Eosinophils/100 WBC (Bld) 2.5 % 0-5 [facility] Glucose [Mass/Vol] 109 mg/dL 74-106 [facility] Comment on above: Fasting Glucose resu lt from 100 to 125 mg/dL suggests IMPAIRED HOMEOSTASIS per A.D.A. criteria. Hemoglobin (Bld) [Mass/Vol] 14.3 g/dL 12.0-15.0 [facility] Monocytes/100 WBC (Bld) 4.6 % 0-10 [facility] Neutrophils (Bld) [#/Vol] 7.2 10*3/uL 2.0-7.7 [facility] Neutrophils/100 WBC (Bld) 80.0 % 47-70 [facility] Potassium [Moles/Vol] 3.9 mmol/L 3.5-5.1 [facility] Protein [Mass/Vol] 8.0 g/dL 6.4-8.2 [facility] Sodium [Moles/Vol] 142 mmol/L 136-145 [facility] WBC (Bld) [#/Vol] 9.0 10*3/uL 4.4-11.0 [facility] Determination of erythrocyte mean corpuscular volume (MCV)Ordered By: Haresh Curtis on 06-13-2023 MCV (RBC) [Entitic vol] 94.4 fL 81-99 [facility] Direct bilirubinOrdered By: Haresh Curtis on 06-13-2023 Bilirubin.direct [Mass/Vol] 0.13 mg/dL 0.00-0.30 [facility] Erythrocyte distribution wid th ratioOrdered By: Haresh Curtis on 06-13-2023 Erythrocyte distribution width (RBC) [Ratio] 13.5 % 11.6-14.6 [facility] Erythrocyte distribution wid th standard deviationOrdered By: Haresh Curtis on 06-13-2023 Erythrocyte distribution width (RBC) [Entitic vol] 47.4 fL 35.1-43.9 [facility] Hematocrit Auto (Bld) [Volum e fraction]Ordered By: Haresh Curtis on 06-13-2023 Hematocrit (Bld) [Volume fraction] 43.6 % 37-47 [facility] Immature granulocytes/100 WB C Auto (Bld)Ordered By: Haresh Curtis on 06-13-2023 Immature granulocytes/100 WBC (Bld) 0.200 % 0.0-0.9 [facility] Comment on above: IG% - Immature Granu locytes (promyelocytes, myelocytes and metamyelocytes) > 1% indicates that a LEFT SHIFT is Present. Laboratory - Chemistry and C hemistry - challengeOrdered By: Haresh Curtis on 06-13-2023 ALP [Catalytic activity/Vol] 104 U/L 45-117 [facility] ALT [Catalytic activity/Vol] 14 U/L 13-56 [facility] CO2 [Moles/Vol] 32.0 mmol/L 21.0-32.0 [facility] Globulin (S) [Mass/Vol] 4.1 g/dL 2.2-4.2 [facility] Lipase [Catalytic activity/Vol] 27 U/L 13-75 [facility] Comment on above: Please note:LIPASE r evised reference range effective 22. New Lipase methodology. Expected to produce lower values than the previous assay method. NEW Reference Range: 13 - 75 U/L Urea nitrogen/Creatinine [Mass ratio] 20.5 mg/mg 10-20 [facility] Laboratory - Hematology and Cell countsOrdered By: Haresh Curtis on 06-13-2023 MCH (RBC) [Entitic mass] 31.0 pg 27.0-32.0 [facility] MCHC (RBC) [Mass/Vol] 32.8 g/dL 32-36 [facility] Nucleated RBC/100 WBC (Bld) [Ratio] 0 % 0-5 [facility] Platelet mean volume (Bld) [Entitic vol] 10.5 fL 6.2-12.0 [facility] Platelets (Bld) [#/Vol] 321 10*3/uL 150-450 [facility] No Panel InformationOrdered By: Haresh Curtis on 06-13-2023 Estimated Creatinine Clearance Calc 85.58 ml/min [facility] Estimated GFR (MDRD) Amer 134 mL/min >60 [facility] Comment on above: GFR Calc Estimated GFR (MDRD) Non-Af Amer 111 mL/min >60 [facility] Comment on above: Non- GFR Calc RBC Auto (Bld) [#/Vol]Ordere d By: Haresh Curtis on 06-13-2023 RBC (Bld) [#/Vol] 4.62 10*6/uL 4.2-5.4 [facility] Serum or plasma calcium kamilah urement (mass/volume)Ordered By: Haresh Curtis on 06-13-2023 Calcium [Mass/Vol] 9.3 mg/dL 8.5-10.1 [facility] Serum or plasma creatinine m easurement (mass/volume)Ordered By: Haersh Curtis on 06-13-2023 Creatinine [Mass/Vol] 0.59 mg/dL 0.55-1.02 [facility] Comment on above: The validity of the calculated GFR & GFRAA in patients over 70 years has not been determined. Clinical correlation is essential. Serum or plasma urea nitroge n measurement (mass/volume)Ordered By: Haresh Curtis on 06-13-2023 Urea nitrogen [Mass/Vol] 12 mg/dL 7-18 [facility] Thin prep Papanicolaou smear with manual screeningOrdered By: Haresh Curtis on 06-13-2023 Thin prep Papanicolaou smear with manual screening 3.9 g/dL 3.2-5.0 [facility] Thin prep Papanicolaou smear with manual screening 11 U/L 15-37 [facility] Thin prep Papanicolaou smear with manual screening 5 5-15 [facility] Laboratory - Microbiology an d Antimicrobial susceptibilityOrdered By: Rocky Barlow on 02-05-2023 SARS-CoV-2 (COVID-19) RNA WILLIAM+probe Ql (Unsp spec) [facility] No Panel InformationOrdered By: Rocky Barlow on 02-05-2023 Influenza Types A,B Direct FA (DENY) [facility] RSV Ag EIAOrdered By: Rocky sloan on 02-05-2023 RSV Ag Immune stain Ql (Tiss) [facility] [facility]biology an d Antimicrobial susceptibilityOrdered By: Rocky Barlow on 12-12-2022 SARS-CoV-2 (COVID-19) RNA WILLIAM+probe Ql (Unsp spec) [facility] SARS-CoV-2 (COVID-19) RNA WILLIAM+probe Ql (Unsp spec) [facility] No Panel InformationOrdered By: Rocky Barlow on 12-12-2022 Influenza Types A,B Direct FA (DENY) [facility] Influenza Types A,B Direct FA (DENY) [facility] RSV Ag EIAOrdered By: Rocky sloan on 12-12-2022 RSV Ag Immune stain Ql (Tiss) [facility] RSV Ag Immune stain Ql (Tiss) [facility] Absolute lymphocyte countOrd ered By: Rocky Barlow on 12-11-2022 Lymphocytes Auto (Unsp spec) [#/Vol] 2.85 10*3/uL 0.83-4.51 [facility] Basophil percentageOrdered B y: Rocky Barlow on 12-11-2022 Basophils/100 WBC (Bld) 0.6 % 0-1 [facility] Chloride [Moles/Vol] 107 mmol/L 98-107 [facility] Eosinophils/100 WBC (Bld) 4.0 % 0-5 [facility] Glucose [Mass/Vol] 106 mg/dL 74-106 [facility] Comment on above: Fasting Glucose resu lt from 100 to 125 mg/dL suggests IMPAIRED HOMEOSTASIS per A.D.A. criteria. Neutrophils (Bld) [#/Vol] 5.6 10*3/uL 2.0-7.7 [facility] Neutrophils/100 WBC (Bld) 58.3 % 47-70 [facility] Potassium [Moles/Vol] 4.0 mmol/L 3.5-5.1 [facility] Sodium [Moles/Vol] 141 mmol/L 136-145 [facility] WBC (Bld) [#/Vol] 9.5 10*3/uL 4.4-11.0 [facility] Blood erythrocytes count (nu mber/volume)Ordered By: Rocky Barlow on 12-11-2022 RBC (Bld) [#/Vol] 4.40 10*6/uL 4.2-5.4 [facility] Blood hemoglobin measurement (mass/volume)Ordered By: Rocky Barlow on 12-11-2022 Hemoglobin (Bld) [Mass/Vol] 13.8 g/dL 12.0-15.0 [facility] Blood lymphocytes/100 leukoc ytesOrdered By: Rocky Barlow on 12-11-2022 Lymphocytes/100 WBC (Bld) 29.9 % 19-41 [facility] Blood monocytes/100 leukocyt esOrdered By: Rocky Barlow on 12-11-2022 Monocytes/100 WBC (Bld) 7.0 % 0-10 [facility] Blood platelet mean volumeOr dered By: Rocky Barlow on 12-11-2022 Platelet mean volume (Bld) [Entitic vol] 11.7 fL 6.2-12.0 [facility] Determination of erythrocyte mean corpuscular volume (MCV)Ordered By: Rocky Barlow on 12-11-2022 MCV (RBC) [Entitic vol] 95.7 fL 81-99 [facility] Hematocrit Auto (Bld) [Volum e fraction]Ordered By: Rocky Barlow on 12-11-2022 Hematocrit (Bld) [Volume fraction] 42.1 % 37-47 [facility] Laboratory - Chemistry and C hemistry - challengeOrdered By: Rocky Barlow 12-11-2022 CO2 [Moles/Vol] 29.0 mmol/L 21.0-32.0 [facility] Urea nitrogen/Creatinine [Mass ratio] 12.7 mg/mg 10-20 [facility] Laboratory - Hematology and Cell countsOrdered By: Rocky Barlow 12-11-2022 Erythrocyte distribution width (RBC) [Entitic vol] 47.8 fL 35.1-43.9 [facility] Erythrocyte distribution width (RBC) [Ratio] 13.5 % 11.6-14.6 [facility] Immature granulocytes/100 WBC (Bld) 0.200 % 0.0-0.9 [facility] Comment on above: IG% - Immature Granu locytes (promyelocytes, myelocytes and metamyelocytes) > 1% indicates that a LEFT SHIFT is Present. MCH (RBC) [Entitic mass] 31.4 pg 27.0-32.0 [facility] Nucleated RBC/100 WBC (Bld) [Ratio] 0 % 0-5 [facility] MCHC Auto (RBC) [Mass/Vol]Or dered By: Rocky Barlow on 12-11-2022 MCHC (RBC) [Mass/Vol] 32.8 g/dL 32-36 [facility] No Panel InformationOrdered By: Rocky Barlow on 12-11-2022 Estimated GFR (MDRD) Amer 173 mL/min >60 [facility] Comment on above: GFR Calc Estimated GFR (MDRD) Non-Af Amer 143 mL/min >60 [facility] Comment on above: Non- GFR Calc Platelets bldOrdered By: Rocky Barlow on 12-11-2022 Platelets (Bld) [#/Vol] 213 10*3/uL 150-450 [facility] Serum or plasma calcium kamilah urement (mass/volume)Ordered By: Rocky Barlow on 12-11-2022 Calcium [Mass/Vol] 9.2 mg/dL 8.5-10.1 [facility] Serum or plasma creatinine m easurement (mass/volume)Ordered By: Rocky Barlow on 12-11-2022 Creatinine [Mass/Vol] 0.47 mg/dL 0.55-1.02 [facility] Comment on above: The validity of the calculated GFR & GFRAA in patients over 70 years has not been determined. Clinical correlation is essential. Serum or plasma urea nitroge n measurement (mass/volume)Ordered By: Rocky Barlow on 12-11-2022 Urea nitrogen [Mass/Vol] 6 mg/dL 7-18 [facility] Thin prep Papanicolaou smear with manual screeningOrdered By: Rocky Barlow on 12-11-2022 Thin prep Papanicolaou smear with manual screening 5 5-15 [facility] Absolute lymphocyte countOrd ered By: Rocky Barlow on 12-03-2022 Lymphocytes Auto (Unsp spec) [#/Vol] 2.53 10*3/uL 0.83-4.51 [facility] Basophil percentageOrdered B y: Rocky Barlow on 12-03-2022 Basophils/100 WBC (Bld) 1.4 % 0-1 [facility] Bilirubin [Mass/Vol] 0.30 mg/dL 0.20-1.00 [facility] Comment on above: For patients on eltr ombopag therapy, use of Dimension [place] TBIL is not recommended. Chloride [Moles/Vol] 108 mmol/L 98-107 [facility] Cholesterol [Mass/Vol] 209 mg/dL <200 [facility] Comment on above: <200 mg/dL Desirable 200-240 mg/dL Borderline >240 mg/dL High Risk Eosinophils/100 WBC (Bld) 6.0 % 0-5 [facility] Glucose [Mass/Vol] 99 mg/dL 74-106 [facility] Neutrophils (Bld) [#/Vol] 2.8 10*3/uL 2.0-7.7 [facility] Neutrophils/100 WBC (Bld) 44.4 % 47-70 [facility] Potassium [Moles/Vol] 3.7 mmol/L 3.5-5.1 [facility] Protein [Mass/Vol] 7.3 g/dL 6.4-8.2 [facility] Sodium [Moles/Vol] 142 mmol/L 136-145 [facility] Triglyceride [Mass/Vol] 146 mg/dL <199 [facility] Comment on above: The drugs N-Acetylcy steine and Metamizole may falsely depress this assay.Serum Triglycerides Reference Interval Normal <150 mg/dL Borderline high 150 - 199 mg/dL High 200 - 499 mg/dL Very High > or = 500 mg/dL WBC (Bld) [#/Vol] 6.3 10*3/uL 4.4-11.0 [facility] Blood erythrocytes count (nu mber/volume)Ordered By: Rocky Barlow on 12-03-2022 RBC (Bld) [#/Vol] 4.59 10*6/uL 4.2-5.4 [facility] Blood hemoglobin measurement (mass/volume)Ordered By: Rocky Barlow on 12-03-2022 Hemoglobin (Bld) [Mass/Vol] 14.1 g/dL 12.0-15.0 [facility] Blood lymphocytes/100 leukoc ytesOrdered By: Rocky Barlow on 12-03-2022 Lymphocytes/100 WBC (Bld) 40.1 % 19-41 [facility] Blood monocytes/100 leukocyt esOrdered By: Rocky Barlow on 12-03-2022 Monocytes/100 WBC (Bld) 7.9 % 0-10 [facility] Blood platelet mean volumeOr dered By: Rocky Barlow on 12-03-2022 Platelet mean volume (Bld) [Entitic vol] 11.8 fL 6.2-12.0 [facility] Determination of erythrocyte mean corpuscular volume (MCV)Ordered By: Rocky Barlow on 12-03-2022 MCV (RBC) [Entitic vol] 96.9 fL 81-99 [facility] Hematocrit Auto (Bld) [Volum e fraction][facility] Hematocrit (Bld) [Volume fraction] 44.5 % 37-47 [facility] Laboratory - Chemistry and C hemistry - challengeOrdered By: [facility] on 12-[facility]22 ALP [Catalytic activity/Vol] 115 U/L 45-117 [facility] ALT [Catalytic activity/Vol] 18 U/L 13-56 [facility] CO2 [Moles/Vol] 29.0 mmol/L 21.0-32.0 [facility] Globulin (S) [Mass/Vol] 3.9 g/dL 2.2-4.2 [facility] Urea nitrogen/Creatinine [Mass ratio] 10.5 mg/mg 10-20 [facility] Laboratory - Hematology and Cell countsOrdered By: [facility] on 12-03-2022 Erythrocyte distribution width (RBC) [Entitic vol] 47.1 fL 35.1-43.9 [facility] Erythrocyte distribution width (RBC) [Ratio] 13.2 % 11.6-14.6 [facility] Immature granulocytes/100 WBC (Bld) 0.200 % 0.0-0.9 [facility] Comment on above: IG% - Immature Granu locytes (promyelocytes, myelocytes and metamyelocytes) > 1% indicates that a LEFT SHIFT is Present. MCH (RBC) [Entitic mass] 30.7 pg 27.0-32.0 [facility] Nucleated RBC/100 WBC (Bld) [Ratio] 0 % 0-5 [facility] MCHC Auto (RBC) [Mass/Vol]Or dered By: Rocky Barlow on 12-03-2022 MCHC (RBC) [Mass/Vol] 31.7 g/dL 32-36 [facility] No Panel InformationOrdered By: Rocky Cain on 12-03-2022 Estimated GFR (MDRD) Amer 138 mL/min >60 [facility] Comment on above: GFR Calc Estimated GFR (MDRD) Non-Af Amer 114 mL/min >60 [facility] Comment on above: Non- GFR Calc Thyroid Stimulating Hormone (TSH) 1.37 uIU/mL 0.358-3.74 [facility] Platelets bldOrdered By: Rocky Barlow on 12-03-2022 Platelets (Bld) [#/Vol] 238 10*3/uL 150-450 [facility] Serum or plasma albumin kamilah urement (mass/volume)Ordered By: Rocky Barlow on 12-03-2022 Albumin [Mass/Vol] 3.4 g/dL 3.2-5.0 [facility] Serum or plasma albumin/glob ulin mass ratioOrdered By: Rocky Barlow 12-03-2022 Albumin/Globulin [Mass ratio] 0.9 {ratio} 0.9-2.4 [facility] Serum or plasma calcium kamilah urement (mass/volume)Ordered By: Rocky Barlow 12-03-2022 Calcium [Mass/Vol] 8.7 mg/dL 8.5-10.1 [facility] Serum or plasma cholesterol in HDL measurement (mass/volume)Ordered By: Rocky Barlow 12-03-2022 Cholesterol in HDL [Mass/Vol] 56 mg/dL >40 [facility] Comment on above: The drugs N-Acetylcy steine and Metamizole may falsely depress this assay. Reference Range HDL <40 mg/dL Low HDL Cholesterol HDL >or= 60 mg/dL High HDL Cholesterol Serum or plasma cholesterol in VLDL measurement (mass/volume)Ordered By: Rocky Barlow 12-03-2022 Cholesterol in VLDL [Mass/Vol] 29 mg/dL 5-40 [facility] Serum or plasma creatinine m easurement (mass/volume)Ordered By: Rocky Barlow 12-03-2022 Creatinine [Mass/Vol] 0.57 mg/dL 0.55-1.02 [facility] Comment on above: The validity of the calculated GFR & GFRAA in patients over 70 years has not been determined. Clinical correlation is essential. Serum or plasma low density lipoprotein (LDL) cholesterol measurement (mass/volume)Ordered By: Rocky Barlow 12-03-2022 Cholesterol in LDL [Mass/Vol] 124 mg/dL 0-130 [facility] Serum or plasma urea nitroge n measurement (mass/volume)Ordered By: Rocky Barlow on 12-03-2022 Urea nitrogen [Mass/Vol] 6 mg/dL 7-18 [facility] Thin prep Papanicolaou smear with manual screeningOrdered By: Rocky Barlow on 12-03-2022 Thin prep Papanicolaou smear with manual screening 11 U/L 15-37 [facility] Thin prep Papanicolaou smear with manual screening 5 5-15 [facility] Absolute lymphocyte countOrd ered By: aRul Viveros on 08-15-2022 Lymphocytes Auto (Unsp spec) [#/Vol] 2.64 10*3/uL 0.83-4.51 [facility] Basophil percentageOrdered B y: Raul Viveros on 08-15-2022 Basophil percentage 0 SEEN /hpf 0-5 [facility] Basophils/100 WBC (Bld) 0.5 % 0-1 [facility] Chloride [Moles/Vol] 109 mmol/L 98-107 [facility] Eosinophils/100 WBC (Bld) 3.2 % 0-5 [facility] Glucose [Mass/Vol] 118 mg/dL 74-106 [facility] Comment on above: Fasting Glucose resu lt from 100 to 125 mg/dL suggests IMPAIRED HOMEOSTASIS per A.D.A. criteria. Lactate [Moles/Vol] 4.6 mmol/L 0.4-2.0 [facility] Comment on above: Critical Result(s) C alled at: 17:45:37 08/15/2022 by: Halie Holder to Francisca. Results read back by same. Neutrophils (Bld) [#/Vol] 5.7 10*3/uL 2.0-7.7 [facility] Neutrophils/100 WBC (Bld) 59.8 % 47-70 [facility] Potassium [Moles/Vol] 3.2 mmol/L 3.5-5.1 [facility] Sodium [Moles/Vol] 142 mmol/L 136-145 [facility] WBC (Bld) [#/Vol] 9.6 10*3/uL 4.4-11.0 [facility] Bilirubin Test strip Ql (U)O rdered By: Raul Viveros on 08-15-2022 Bilirubin Ql (U) Negative Negative [facility] Blood erythrocytes count (nu mber/volume)Ordered By: Raul Viveros on 08-15-2022 RBC (Bld) [#/Vol] 4.49 10*6/uL 4.2-5.4 [facility] Blood hemoglobin measurement (mass/volume)Ordered By: Raul Viveros on 08-15-2022 Hemoglobin (Bld) [Mass/Vol] 14.3 g/dL 12.0-15.0 [facility] Blood lymphocytes/100 leukoc ytesOrdered By: [place] [facility] on 08-15-2022 Lymphocytes/100 WBC (Bld) 27.6 % 19-41 [facility] Blood monocytes/100 leukocyt esOrdered By: [facility] on 08-15-2022 Monocytes/100 WBC (Bld) 8.7 % 0-10 [facility] Blood platelet mean volumeOr dered By: Raul Viveros on 08-15-2022 Platelet mean volume (Bld) [Entitic vol] 11.1 fL 6.2-12.0 [facility] Determination of erythrocyte mean corpuscular volume (MCV)Ordered By: Raul Viveros on 08-15-2022 MCV (RBC) [Entitic vol] 97.6 fL 81-99 [facility] Hematocrit Auto (Bld) [Volum e fraction]Ordered By: Raul Viveros on 08-15-2022 Hematocrit (Bld) [Volume fraction] 43.8 % 37-47 [facility] Influenza virus A and B and SARS-CoV-2 (COVID-19) Ag panel - Upper respiratory specimOrdered By: Raul Viveros on 08-15-2022 SARS-CoV-2 (COVID-19) RNA WILLIAM+probe Ql (Resp) [facility] Ketones Test strip Ql (U)Ord ered By: Raul Viveros on 08-15-2022 Ketones Ql (U) 5 mg/dl Negative [facility] Laboratory - Chemistry and C hemistry - challengeOrdered By: Raul Viveros on 08-15-2022 CO2 [Moles/Vol] 28.0 mmol/L 21.0-32.0 [facility] Urea nitrogen/Creatinine [Mass ratio] 13.5 mg/mg 10-20 [facility] Laboratory - Hematology and Cell countsOrdered By: Raul Viveros on 08-15-2022 Erythrocyte distribution width (RBC) [Entitic vol] 49.0 fL 35.1-43.9 [facility] Erythrocyte distribution width (RBC) [Ratio] 13.5 % 11.6-14.6 [facility] Immature granulocytes/100 WBC (Bld) 0.200 % 0.0-0.9 [facility] Comment on above: IG% - Immature Granu locytes (promyelocytes, myelocytes and metamyelocytes) > 1% indicates that a LEFT SHIFT is Present. MCH (RBC) [Entitic mass] 31.8 pg 27.0-32.0 [facility] Nucleated RBC/100 WBC (Bld) [Ratio] 0 % 0-5 [facility] Laboratory - Microbiology an d Antimicrobial susceptibilityOrdered By: Raul Viveros on 08-15-2022 Bacteria identified Cx Nom (Bld) No growth in 5 days. [facility] MCHC Auto (RBC) [Mass/Vol]Or dered By: Raul Viveros on 08-15-2022 MCHC (RBC) [Mass/Vol] 32.6 g/dL 32-36 [facility] Mucus LM Ql (Urine sed)Order ed By: Raul Viveros on 08-15-2022 Mucus Ql (Urine sed) 0 SEEN /hpf [facility] Nitrite Test strip Ql (U)Ord ered By: Raul Viveros on 08-15-2022 Nitrite Ql (U) Negative Negative [facility] No Panel InformationOrdered By: Raul Viveros on 08-15-2022 Estimated Creatinine Clearance Calc 71.92 ml/min [facility] Estimated GFR (MDRD) Amer 132 mL/min >60 [facility] Comment on above: GFR Calc Estimated GFR (MDRD) Non-Af Amer 109 mL/min >60 [facility] Comment on above: Non- GFR Calc Platelets bldOrdered By: Danette Viveros on 08-15-2022 Platelets (Bld) [#/Vol] 284 10*3/uL 150-450 [facility] Protein Test strip Ql (U)Ord ered By: Raul Viveros on 08-15-2022 Protein Ql (U) Negative Negative [facility] Serum or plasma calcium kamilah urement (mass/volume)Ordered By: Raul Viveros on 08-15-2022 Calcium [Mass/Vol] 9.0 mg/dL 8.5-10.1 [facility] Serum or plasma creatinine m easurement (mass/volume)Ordered By: Raul Viveros on 08-15-2022 Creatinine [Mass/Vol] 0.59 mg/dL 0.55-1.02 [facility] Comment on above: The validity of the calculated GFR & GFRAA in patients over 70 years has not been determined. Clinical correlation is essential. Serum or plasma urea nitroge n measurement (mass/volume)Ordered By: Raul Viveros on 08-15-2022 Urea nitrogen [Mass/Vol] 8 mg/dL 7-18 [facility] Squamous epithelial cells de tection in urine sediment by light microscopyOrdered By: Raul Viveros on 08-15-2022 Epithelial cells.squamous LM Ql (Urine sed) 0 SEEN /hpf 5-10 [facility] Thin prep Papanicolaou smear with manual screeningOrdered By: Raul Viveros on 08-15-2022 Thin prep Papanicolaou smear with manual screening 5 5-15 [facility] Urine blood detectionOrdered By: Raul Viveros on 08-15-2022 RBC Ql (U) Negative Negative [facility] RBC Ql (U) 0 SEEN /hpf 0-5 [facility] Urine clarityOrdered By: Danette Viveros on 08-15-2022 Clarity (U) Clear Clear [facility] Urine color determinationOrd ered By: Raul Viveros on 08-15-2022 Color (U) Yellow Yellow [facility] Urine glucose detectionOrder ed By: Raul Viveros on 08-15-2022 Glucose Ql (U) Normal mg/dl Normal [facility] Urine leukocyte esterase det ection by dipstickOrdered By: Raul Viveros on 08-15-2022 Leukocyte esterase Test strip Ql (U) Negative Negative [facility] Urine pHOrdered By: Raul Samuel gur on 08-15-2022 pH (U) 5.0 [pH] 5.0 - 8.0 [facility] Urine sediment bacteria coun t by microscopy (number/high power field)Ordered By: Raul Viveros on 08-15-2022 Bacteria LM.HPF (Urine sed) [#/Area] 0 /[HPF] None Seen [facility] Urine specific gravity measu rementOrdered By: Raul Viveros on 08-15-2022 Specific gravity (U) [Rel density] 1.015 1.002-1.030 [facility] Urobilinogen Auto test strip Ql (U)Ordered By: Raul Viveros on 08-15-2022 Urobilinogen Ql (U) Normal mg/dl Normal [facility] Absolute lymphocyte countOrd ered By: Dr. Barlow on 05-30-2022 Lymphocytes Auto (Unsp spec) [#/Vol] 3.00 10*3/uL 0.83-4.51 [facility] Basophil percentageOrdered B y: Dr. Barlow on 05-30-2022 Basophils/100 WBC (Bld) 0.8 % 0-1 [facility] Bilirubin [Mass/Vol] 0.40 mg/dL 0.20-1.00 [facility] Comment on above: For patients on eltr ombopag therapy, use of Dimension [place] TBIL is not recommended. Chloride [Moles/Vol] 105 mmol/L 98-107 [facility] Cholesterol [Mass/Vol] 219 mg/dL <200 [facility] Comment on above: <200 mg/dL Desirable 200-240 mg/dL Borderline >240 mg/dL High Risk Eosinophils/100 WBC (Bld) 6.3 % 0-5 [facility] Glucose [Mass/Vol] 87 mg/dL 74-106 [facility] Neutrophils (Bld) [#/Vol] 3.6 10*3/uL 2.0-7.7 [facility] Neutrophils/100 WBC (Bld) 47.3 % 47-70 [facility] Potassium [Moles/Vol] 3.8 mmol/L 3.5-5.1 [facility] Comment on above: Moderate Hemolysis, Result may be falsely increased. Protein [Mass/Vol] 7.5 g/dL 6.4-8.2 [facility] Sodium [Moles/Vol] 140 mmol/L 136-145 [facility] Triglyceride [Mass/Vol] 66 mg/dL <199 [facility] Comment on above: The drugs N-Acetylcy steine and Metamizole may falsely depress this assay.Serum Triglycerides Reference Interval Normal <150 mg/dL Borderline high 150 - 199 mg/dL High 200 - 499 mg/dL Very High > or = 500 mg/dL WBC (Bld) [#/Vol] 7.6 10*3/uL 4.4-11.0 [facility] Blood erythrocytes count (nu mber/volume)Ordered By: Dr. Barlow on 05-30-2022 RBC (Bld) [#/Vol] 4.52 10*6/uL 4.2-5.4 [facility] Blood hemoglobin measurement (mass/volume)Ordered By: Dr. Barlow on 05-30-2022 Hemoglobin (Bld) [Mass/Vol] 14.1 g/dL 12.0-15.0 [facility] Blood lymphocytes/100 leukoc ytesOrdered By: Dr. Barlow on 05-30-2022 Lymphocytes/100 WBC (Bld) 39.3 % 19-41 [facility] Blood monocytes/100 leukocyt esOrdered By: Dr. Barlow on 05-30-2022 Monocytes/100 WBC (Bld) 6.2 % 0-10 [facility] Blood platelet mean volumeOr dered By: Dr. Barlow on 05-30-2022 Platelet mean volume (Bld) [Entitic vol] 11.0 fL 6.2-12.0 [facility] Determination of erythrocyte mean corpuscular volume (MCV)Ordered By: Dr. Barlow on 05-30-2022 MCV (RBC) [Entitic vol] 96.0 fL 81-99 [facility] Hematocrit Auto (Bld) [Volum e fraction]Ordered By: Dr. Barlow on 05-30-2022 Hematocrit (Bld) [Volume fraction] 43.4 % 37-47 [facility] Laboratory - Chemistry and C hemistry - challengeOrdered By: Dr. Barlow on 05-30-2022 ALP [Catalytic activity/Vol] 100 U/L 45-117 [facility] ALT [Catalytic activity/Vol] 20 U/L 13-56 [facility] CO2 [Moles/Vol] 26.0 mmol/L 21.0-32.0 [facility] Globulin (S) [Mass/Vol] 3.8 g/dL 2.2-4.2 [facility] Urea nitrogen/Creatinine [Mass ratio] 12.8 mg/mg 10-20 [facility] Laboratory - Hematology and Cell countsOrdered By: Dr. Barlow on 05-30-2022 Erythrocyte distribution width (RBC) [Entitic vol] 49.1 fL 35.1-43.9 [facility] Erythrocyte distribution width (RBC) [Ratio] 13.8 % 11.6-14.6 [facility] Immature granulocytes/100 WBC (Bld) 0.100 % 0.0-0.9 [facility] Comment on above: IG% - Immature Granu locytes (promyelocytes, myelocytes and metamyelocytes) > 1% indicates that a LEFT SHIFT is Present. MCH (RBC) [Entitic mass] 31.2 pg 27.0-32.0 [facility] Nucleated RBC/100 WBC (Bld) [Ratio] 0 % 0-5 [facility] MCHC Auto (RBC) [Mass/Vol]Or dered By: Dr. Barlow on 05-30-2022 MCHC (RBC) [Mass/Vol] 32.5 g/dL 32-36 [facility] No Panel InformationOrdered By: Dr. Barlow on 05-30-2022 Estimated GFR (MDRD) Amer 145 mL/min >60 [facility] Comment on above: GFR Calc Estimated GFR (MDRD) Non-Af Amer 120 mL/min >60 [facility] Comment on above: Non- GFR Calc Thyroid Stimulating Hormone (TSH) 1.39 uIU/mL 0.358-3.74 [facility] Vitamin D 25-Hydroxy 48.5 ng/mL [facility] Comment on above: Vitamin D 25(OH) Sta tus Range Deficiency <20 ng/mL (50nmol/L) Insufficiency 20 - 30 ng/mL (50 - 75 nmol/L) Sufficiency 30 - 100 ng/mL (75 - 250 nmol/L) Toxicity >100 ng/mL (>250 nmol/L) Platelets bldOrdered By: Dr. Barlow on 05-30-2022 Platelets (Bld) [#/Vol] 311 10*3/uL 150-450 [facility] Serum or plasma albumin kamilah urement (mass/volume)Ordered By: Dr. Barlow on 05-30-2022 Albumin [Mass/Vol] 3.7 g/dL 3.2-5.0 [facility] Serum or plasma albumin/glob ulin mass ratioOrdered By: Dr. Barlow on 05-30-2022 Albumin/Globulin [Mass ratio] 1.0 {ratio} 0.9-2.4 [facility] Serum or plasma calcium kamilah urement (mass/volume)Ordered By: Dr. Barlow on 05-30-2022 Calcium [Mass/Vol] 9.2 mg/dL 8.5-10.1 [facility] Serum or plasma cholesterol in HDL measurement (mass/volume)Ordered By: Dr. Barlow on 05-30-2022 Cholesterol in HDL [Mass/Vol] 73 mg/dL >40 [facility] Comment on above: The drugs N-Acetylcy steine and Metamizole may falsely depress this assay. Reference Range HDL <40 mg/dL Low HDL Cholesterol HDL >or= 60 mg/dL High HDL Cholesterol Serum or plasma cholesterol in VLDL measurement (mass/volume)Ordered By: Dr. Barlow on 05-30-2022 Cholesterol in VLDL [Mass/Vol] 13 mg/dL 5-40 [facility] Serum or plasma creatinine m easurement (mass/volume)Ordered By: Dr. Barlow on 05-30-2022 Creatinine [Mass/Vol] 0.55 mg/dL 0.55-1.02 [facility] Comment on above: The validity of the calculated GFR & GFRAA in patients over 70 years has not been determined. Clinical correlation is essential. Serum or plasma low density lipoprotein (LDL) cholesterol measurement (mass/volume)Ordered By: Dr. Barlow on 05-30-2022 Cholesterol in LDL [Mass/Vol] 133 mg/dL 0-130 [facility] Serum or plasma urea nitroge n measurement (mass/volume)Ordered By: Dr. Barlow on 05-30-2022 Urea nitrogen [Mass/Vol] 7 mg/dL 7-18 [facility] Thin prep Papanicolaou smear with manual screeningOrdered By: Dr. Barlow on 05-30-2022 Thin prep Papanicolaou smear with manual screening 20 U/L 15-37 [facility] Comment on above: Moderate Hemolysis, Result may be falsely increased. Thin prep Papanicolaou smear with manual screening 9 5-15 [facility] Laboratory - Microbiology an d Antimicrobial susceptibilityOrdered By: Dr. Barlow on 03-29-2022 SARS-CoV-2 (COVID-19) RNA WILLIAM+probe Ql (Unsp spec) Not detected Not Detect [facility] Comment on above: Normal Reference Ran ge: Not DetectedMethod:(RT-PCR) real-time reverse transcriptase PCRLuminex MERCY Instrument*The Food and Drug Administration (FDA) has issued an Emergency Use Authorization (EAU) for the [employer] SARS-CoV-2 Assay for the rapid detection of the virus that causes COVID-19. This test has been validated, but the FDAs independent review of this validation is pending.*Negative results do not preclude infection and should not be used as the sole basis for treatment or patient management. Optimum specimen types and timing for peak viral levels during infections caused by SARS-CoV-2 have not been determined. Collection of multiple specimens from the same patient may be necessary to detect the virus. The possibility of a false negative result should be considered if the patient has clinical presentation or has had recent exposure. No Panel InformationOrdered By: Dr. Barlow on 03-29-2022 Influenza Types A,B Direct FA (DENY) [facility] RSV Ag EIAOrdered By: Dr. Deisi sloan on 03-29-2022 RSV Ag Immune stain Ql (Tiss) [facility] Absolute lymphocyte countOrd ered By: Dr. Palomino on 03-21-2022 Lymphocytes Auto (Unsp spec) [#/Vol] 2.24 10*3/uL 0.83-4.51 [facility] Basophil percentageOrdered B y: Dr. Palomino on 03-21-2022 Basophils/100 WBC (Bld) 0.5 % 0-1 [facility] Bilirubin [Mass/Vol] 0.30 mg/dL 0.20-1.00 [facility] Comment on above: For patients on eltr ombopag therapy, use of Dimension [place] TBIL is not recommended. Chloride [Moles/Vol] 107 mmol/L 98-107 [facility] Eosinophils/100 WBC (Bld) 2.5 % 0-5 [facility] Glucose [Mass/Vol] 118 mg/dL 74-106 [facility] Comment on above: Fasting Glucose resu lt from 100 to 125 mg/dL suggests IMPAIRED HOMEOSTASIS per A.D.A. criteria. Neutrophils (Bld) [#/Vol] 8.8 10*3/uL 2.0-7.7 [facility] Neutrophils/100 WBC (Bld) 70.5 % 47-70 [facility] Potassium [Moles/Vol] 3.7 mmol/L 3.5-5.1 [facility] Protein [Mass/Vol] 7.9 g/dL 6.4-8.2 [facility] Sodium [Moles/Vol] 142 mmol/L 136-145 [facility] WBC (Bld) [#/Vol] 12.5 10*3/uL 4.4-11.0 [facility] Blood erythrocytes count (nu mber/volume)Ordered By: Dr. Palomino on 03-21-2022 RBC (Bld) [#/Vol] 4.52 10*6/uL 4.2-5.4 [facility] Blood hemoglobin measurement (mass/volume)Ordered By: Dr. Palomino on 03-21-2022 Hemoglobin (Bld) [Mass/Vol] 14.1 g/dL 12.0-15.0 [facility] Blood lymphocytes/100 leukoc ytesOrdered By: Dr. Palomino on 03-21-2022 Lymphocytes/100 WBC (Bld) 17.9 % 19-41 [facility] Blood monocytes/100 leukocyt esOrdered By: Dr. Palomino on 03-21-2022 Monocytes/100 WBC (Bld) 8.3 % 0-10 [facility] Blood platelet mean volumeOr dered By: Dr. Palomino on 03-21-2022 Platelet mean volume (Bld) [Entitic vol] 10.6 fL 6.2-12.0 [facility] Determination of erythrocyte mean corpuscular volume (MCV)Ordered By: Dr. Palomino on 03-21-2022 MCV (RBC) [Entitic vol] 96.7 fL 81-99 [facility] Hematocrit Auto (Bld) [Volum e fraction]Ordered By: Dr. Palomino on 03-21-2022 Hematocrit (Bld) [Volume fraction] 43.7 % 37-47 [facility] Influenza virus A and B and SARS-CoV-2 (COVID-19) Ag panel - Upper respiratory specimOrdered By: Dr. Palomino on 03-21-2022 SARS-CoV-2 (COVID-19) RNA WILLIAM+probe Ql (Resp) [facility] Laboratory - Chemistry and C hemistry - challengeOrdered By: Dr. Palomino on 03-21-2022 ALP [Catalytic activity/Vol] 109 U/L 45-117 [facility] ALT [Catalytic activity/Vol] 15 U/L 13-56 [facility] CO2 [Moles/Vol] 31.0 mmol/L 21.0-32.0 [facility] Globulin (S) [Mass/Vol] 4.2 g/dL 2.2-4.2 [facility] Urea nitrogen/Creatinine [Mass ratio] 14.4 mg/mg 10-20 [facility] Laboratory - Hematology and Cell countsOrdered By: Dr. Palomino on 03-21-2022 Erythrocyte distribution width (RBC) [Entitic vol] 49.3 fL 35.1-43.9 [facility] Erythrocyte distribution width (RBC) [Ratio] 13.7 % 11.6-14.6 [facility] Immature granulocytes/100 WBC (Bld) 0.300 % 0.0-0.9 [facility] Comment on above: IG% - Immature Granu locytes (promyelocytes, myelocytes and metamyelocytes) > 1% indicates that a LEFT SHIFT is Present. MCH (RBC) [Entitic mass] 31.2 pg 27.0-32.0 [facility] Nucleated RBC/100 WBC (Bld) [Ratio] 0 % 0-5 [facility] MCHC Auto (RBC) [Mass/Vol]Or dered By: Dr. Palomino on 03-21-2022 MCHC (RBC) [Mass/Vol] 32.3 g/dL 32-36 [facility] No Panel InformationOrdered By: Dr. Palomino on 03-21-2022 Estimated Creatinine Clearance Calc 82.08 ml/min [facility] Estimated GFR (MDRD) Amer 143 mL/min >60 [facility] Comment on above: GFR Calc Estimated GFR (MDRD) Non-Af Amer 119 mL/min >60 [facility] Comment on above: Non- GFR Calc Platelets bldOrdered By: Dr. Palomino on 03-21-2022 Platelets (Bld) [#/Vol] 278 10*3/uL 150-450 [facility] Serum or plasma albumin kamilah urement (mass/volume)Ordered By: Dr. Palomino on 03-21-2022 Albumin [Mass/Vol] 3.7 g/dL 3.2-5.0 [facility] Serum or plasma albumin/glob ulin mass ratioOrdered By: Dr. Palomino on 03-21-2022 Albumin/Globulin [Mass ratio] 0.9 {ratio} 0.9-2.4 [facility] Serum or plasma calcium kamilah urement (mass/volume)Ordered By: Dr. Palomino on 03-21-2022 Calcium [Mass/Vol] 9.4 mg/dL 8.5-10.1 [facility] Serum or plasma creatinine m easurement (mass/volume)Ordered By: Dr. Palomino on 03-21-2022 Creatinine [Mass/Vol] 0.55 mg/dL 0.55-1.02 [facility] Comment on above: The validity of the calculated GFR & GFRAA in patients over 70 years has not been determined. Clinical correlation is essential. Serum or plasma urea nitroge n measurement (mass/volume)Ordered By: Dr. Palomino on 03-21-2022 Urea nitrogen [Mass/Vol] 8 mg/dL 7-18 [facility] Thin prep Papanicolaou smear with manual screeningOrdered By: Dr. Palomino on 03-21-2022 Thin prep Papanicolaou smear with manual screening 10 U/L 15-37 [facility] Thin prep Papanicolaou smear with manual screening 4 5-15 [facility] Laboratory - Microbiology an d Antimicrobial susceptibilityon 01-21-2022 SARS-CoV-2 (COVID-19) RNA WILLIAM+probe Ql (Unsp spec) Not detected [facility] No Panel Informationon 01-21 Influenza Types A,B Rapid (Clinic) Not detected [facility] Absolute lymphocyte countOrd ered By: Dr. Ann on 01-03-2022 Lymphocytes Auto (Unsp spec) [#/Vol] 1.37 10*3/uL 0.83-4.51 [facility] Basophil percentageOrdered B y: Dr. Ann on 01-03-2022 Basophils/100 WBC (Bld) 0.2 % 0-1 [facility] Chloride [Moles/Vol] 108 mmol/L 98-107 [facility] Eosinophils/100 WBC (Bld) 0.0 % 0-5 [facility] Glucose [Mass/Vol] 124 mg/dL 74-106 [facility] Comment on above: Fasting Glucose resu lt from 100 to 125 mg/dL suggests IMPAIRED HOMEOSTASIS per A.D.A. criteria. Neutrophils (Bld) [#/Vol] 7.9 10*3/uL 2.0-7.7 [facility] Neutrophils/100 WBC (Bld) 79.9 % 47-70 [facility] Potassium [Moles/Vol] 3.8 mmol/L 3.5-5.1 [facility] Sodium [Moles/Vol] 143 mmol/L 136-145 [facility] WBC (Bld) [#/Vol] 9.9 10*3/uL 4.4-11.0 [facility] Blood erythrocytes count (nu mber/volume)Ordered By: Dr. Ann on 01-03-2022 RBC (Bld) [#/Vol] 4.49 10*6/uL 4.2-5.4 [facility] Blood hemoglobin measurement (mass/volume)Ordered By: Dr. Ann on 01-03-2022 Hemoglobin (Bld) [Mass/Vol] 14.5 g/dL 12.0-15.0 [facility] Blood lymphocytes/100 leukoc ytesOrdered By: Dr. Ann on 01-03-2022 Lymphocytes/100 WBC (Bld) 13.8 % 19-41 [facility] Blood monocytes/100 leukocyt esOrdered By: Dr. Ann on 01-03-2022 Monocytes/100 WBC (Bld) 5.5 % 0-10 [facility] Blood platelet mean volumeOr dered By: Dr. Ann on 01-03-2022 Platelet mean volume (Bld) [Entitic vol] 10.9 fL 6.2-12.0 [facility] Determination of erythrocyte mean corpuscular volume (MCV)Ordered By: Dr. Ann on 01-03-2022 MCV (RBC) [Entitic vol] 96.0 fL 81-99 [facility] Hematocrit Auto (Bld) [Volum e fraction]Ordered By: Dr. Ann on 01-03-2022 Hematocrit (Bld) [Volume fraction] 43.1 % 37-47 [facility] Laboratory - Chemistry and C hemistry - challengeOrdered By: Dr. Ann on 01-03-2022 CO2 [Moles/Vol] 28.0 mmol/L 21.0-32.0 [facility] Urea nitrogen/Creatinine [Mass ratio] 27.4 mg/mg 10-20 [facility] Laboratory - Hematology and Cell countsOrdered By: Dr. Ann on 01-03-2022 Erythrocyte distribution width (RBC) [Entitic vol] 51.5 fL 35.1-43.9 [facility] Erythrocyte distribution width (RBC) [Ratio] 14.5 % 11.6-14.6 [facility] Immature granulocytes/100 WBC (Bld) 0.600 % 0.0-0.9 [facility] Comment on above: IG% - Immature Granu locytes (promyelocytes, myelocytes and metamyelocytes) > 1% indicates that a LEFT SHIFT is Present. MCH (RBC) [Entitic mass] 32.3 pg 27.0-32.0 [facility] Nucleated RBC/100 WBC (Bld) [Ratio] 0 % 0-5 [facility] MCHC Auto (RBC) [Mass/Vol]Or dered By: Dr. Ann on 01-03-2022 MCHC (RBC) [Mass/Vol] 33.6 g/dL 32-36 [facility] No Panel InformationOrdered By: Dr. Ann on 01-03-2022 Estimated Creatinine Clearance Calc 78.13 ml/min [facility] Estimated GFR (MDRD) Amer 146 mL/min >60 [facility] Comment on above: GFR Calc Estimated GFR (MDRD) Non-Af Amer 120 mL/min >60 [facility] Comment on above: Non- GFR Calc Platelets bldOrdered By: Dr. Ann on 01-03-2022 Platelets (Bld) [#/Vol] 277 10*3/uL 150-450 [facility] Serum or plasma calcium kamilah urement (mass/volume)Ordered By: Dr. Ann on 01-03-2022 Calcium [Mass/Vol] 9.6 mg/dL 8.5-10.1 [facility] Serum or plasma creatinine m easurement (mass/volume)Ordered By: Dr. Ann on 01-03-2022 Creatinine [Mass/Vol] 0.55 mg/dL 0.55-1.02 [facility] Comment on above: The validity of the calculated GFR & GFRAA in patients over 70 years has not been determined. Clinical correlation is essential. Serum or plasma urea nitroge n measurement (mass/volume)Ordered By: Dr. Ann on 01-03-2022 Urea nitrogen [Mass/Vol] 15 mg/dL 7-18 [facility] Thin prep Papanicolaou smear with manual screeningOrdered By: Dr. Ann on 01-03-2022 Thin prep Papanicolaou smear with manual screening 7 5-15 [facility] Basophil percentageOrdered B y: Dr. Fortune on 01-02-2022 Lactate [Moles/Vol] 1.8 mmol/L 0.4-2.0 [facility] Laboratory - Microbiology an d Antimicrobial susceptibilityOrdered By: Dr. Barlow on 12-31-2021 SARS-CoV-2 (COVID-19) RNA WILLIAM+probe Ql (Unsp spec) Not detected Not Detect [facility] Comment on above: Normal Reference Ran ge: Not DetectedMethod:(RT-PCR) real-time reverse transcriptase PCRLuminex MERCY Instrument*The Food and Drug Administration (FDA) has issued an Emergency Use Authorization (EAU) for the [employer] SARS-CoV-2 Assay for the rapid detection of the virus that causes COVID-19. This test has been validated, but the FDAs independent review of this validation is pending.*Negative results do not preclude infection and should not be used as the sole basis for treatment or patient management. Optimum specimen types and timing for peak viral levels during infections caused by SARS-CoV-2 have not been determined. Collection of multiple specimens from the same patient may be necessary to detect the virus. The possibility of a false negative result should be considered if the patient has clinical presentation or has had recent exposure. No Panel InformationOrdered By: Dr. Barlow on 12-31-2021 Influenza Types A,B Direct FA (DENY) [facility] RSV Ag Immune stain Ql (Tiss )Ordered By: Dr. Barlow on 12-31-2021 Rapid RSV (DFA) RSV Antigen [facility] Laboratory - Microbiology an d Antimicrobial susceptibilityon 11-30-2021 SARS-CoV-2 (COVID-19) RNA WILLIAM+probe Ql (Unsp spec) Not detected Not Detect [facility] Work Phone: Comment on above: Normal Reference Ran ge: Not DetectedMethod:(RT-PCR) real-time reverse transcriptase PCRLuminex MERCY Instrument*The Food and Drug Administration (FDA) has issued an Emergency Use Authorization (EAU) for the [employer] SARS-CoV-2 Assay for the rapid detection of the virus that causes COVID-19. This test has been validated, but the FDAs independent review of this validation is pending.*Negative results do not preclude infection and should not be used as the sole basis for treatment or patient management. Optimum specimen types and timing for peak viral levels during infections caused by SARS-CoV-2 have not been determined. Collection of multiple specimens from the same patient may be necessary to detect the virus. The possibility of a false negative result should be considered if the patient has clinical presentation or has had recent exposure. Absolute lymphocyte counton 11-28-2021 Lymphocytes Auto (Unsp spec) [#/Vol] 2.65 10*3/uL 0.83-4.51 [facility] Work Phone: Basophil percentageon 2021 Basophils/100 WBC (Bld) 0.6 % 0-1 [facility] Work Phone: Bilirubin [Mass/Vol] 0.20 mg/dL 0.20-1.00 [facility] Work Phone: Comment on above: For patients on eltr ombopag therapy, use of Dimension [place] TBIL is not recommended. Chloride [Moles/Vol] 103 mmol/L 98-107 [facility] Work Phone: Eosinophils/100 WBC (Bld) 3.5 % 0-5 [facility] Work Phone: Glucose [Mass/Vol] 98 mg/dL 74-106 [facility] Work Phone: Neutrophils (Bld) [#/Vol] 6.8 10*3/uL 2.0-7.7 [facility] Work Phone: Neutrophils/100 WBC (Bld) 64.9 % 47-70 [facility] Work Phone: Potassium [Moles/Vol] 3.8 mmol/L 3.5-5.1 [facility] Work Phone: Comment on above: Slight Hemolysis, Re sult may be falsely increased. Protein [Mass/Vol] 7.8 g/dL 6.4-8.2 [facility] Work Phone: Sodium [Moles/Vol] 138 mmol/L 136-145 [facility] Work Phone: WBC (Bld) [#/Vol] 10.4 10*3/uL 4.4-11.0 [facility] Work Phone: Blood erythrocytes count (nu mber/volume)on 11-28-2021 RBC (Bld) [#/Vol] 4.40 10*6/uL 4.2-5.4 [facility] Work Phone: Blood hemoglobin measurement (mass/volume)on 11-28-2021 Hemoglobin (Bld) [Mass/Vol] 14.0 g/dL 12.0-15.0 [facility] Work Phone: Blood lymphocytes/100 leukoc yteson 11-28-2021 Lymphocytes/100 WBC (Bld) 25.4 % 19-41 [facility] Work Phone: Blood monocytes/100 leukocyt eson 11-28-2021 Monocytes/100 WBC (Bld) 5.2 % 0-10 [facility] Work Phone: Blood platelet mean volumeon 11-28-2021 Platelet mean volume (Bld) [Entitic vol] 11.6 fL 6.2-12.0 [facility] Work Phone: Determination of erythrocyte mean corpuscular volume (MCV)on 11-28-2021 MCV (RBC) [Entitic vol] 97.0 fL 81-99 [facility] Work Phone: Hematocrit Auto (Bld) [Volum e fraction]on 11-28-2021 Hematocrit (Bld) [Volume fraction] 42.7 % 37-47 [facility] Work Phone: Laboratory - Chemistry and C hemistry - challengeon 11-28-2021 ALP [Catalytic activity/Vol] 109 U/L 45-117 [facility] Work Phone: ALT [Catalytic activity/Vol] 24 U/L 13-56 [facility] Work Phone: [phone] CO2 [Moles/Vol] 26.0 mmol/L 21.0-32.0 [facility] Work Phone: [phone] Globulin (S) [Mass/Vol] 4.1 g/dL 2.2-4.2 [facility] Work Phone: [phone] Urea nitrogen/Creatinine [Mass ratio] 24.8 mg/mg 10-20 [facility] Work Phone: [phone] Laboratory - Hematology and Cell countson 11-28-2021 Erythrocyte distribution width (RBC) [Entitic vol] 49.1 fL 35.1-43.9 [facility] Work Phone: [phone] Erythrocyte distribution width (RBC) [Ratio] 13.8 % 11.6-14.6 [facility] Work Phone: [phone] Immature granulocytes/100 WBC (Bld) 0.400 % 0.0-0.9 [facility] Work Phone: [phone] Comment on above: IG% - Immature Granu locytes (promyelocytes, myelocytes and metamyelocytes) > 1% indicates that a LEFT SHIFT is Present. MCH (RBC) [Entitic mass] 31.8 pg 27.0-32.0 [facility] Work Phone: [phone] Nucleated RBC/100 WBC (Bld) [Ratio] 0 % 0-5 [facility] Work Phone: MCHC Auto (RBC) [Mass/Vol]on 11-28-2021 MCHC (RBC) [Mass/Vol] 32.8 g/dL 32-36 [facility] Work Phone: No Panel Informationon 11-28 Estimated GFR (MDRD) Amer 153 mL/min >60 [facility] Work Phone: Comment on above: GFR Calc Estimated GFR (MDRD) Non-Af Amer 126 mL/min >60 [facility] Work Phone: Comment on above: Non- GFR Calc Thyroid Stimulating Hormone (TSH) 1.16 uIU/mL 0.358-3.74 [facility] Work Phone: Vitamin D 25-Hydroxy 31.6 ng/mL [facility] Work Phone: Comment on above: Vitamin D 25(OH) Sta tus Range Deficiency <20 ng/mL (50nmol/L) Insufficiency 20 - 30 ng/mL (50 - 75 nmol/L) Sufficiency 30 - 100 ng/mL (75 - 250 nmol/L) Toxicity >100 ng/mL (>250 nmol/L) Platelets bldon 11-28-2021 Platelets (Bld) [#/Vol] 304 10*3/uL 150-450 [facility] Work Phone: Serum or plasma albumin kamilah urement (mass/volume)on 11-28-2021 Albumin [Mass/Vol] 3.7 g/dL 3.2-5.0 [facility] Work Phone: Serum or plasma albumin/glob ulin mass ratioon 11-28-2021 Albumin/Globulin [Mass ratio] 0.9 {ratio} 0.9-2.4 [facility] Work Phone: Serum or plasma calcium kamilah urement (mass/volume)on 11-28-2021 Calcium [Mass/Vol] 9.0 mg/dL 8.5-10.1 [facility] Work Phone: Serum or plasma creatinine m easurement (mass/volume)on 11-28-2021 Creatinine [Mass/Vol] 0.52 mg/dL 0.55-1.02 [facility] Work Phone: Comment on above: The validity of the calculated GFR & GFRAA in patients over 70 years has not been determined. Clinical correlation is essential. Serum or plasma urea nitroge n measurement (mass/volume)on 11-28-2021 Urea nitrogen [Mass/Vol] 13 mg/dL 7-18 [facility] Work Phone: Thin prep Papanicolaou smear with manual screeningon 11-28-2021 Thin prep Papanicolaou smear with manual screening 21 U/L 15-37 [facility] Work Phone: Comment on above: Slight Hemolysis, Re sult may be falsely increased. Thin prep Papanicolaou smear with manual screening 9 5-15 [facility] Work Phone: BACTERIAL VAGINOSIS AMPLIFIC ATIONon 10-27-2021 Lactobacillus crispatus+gasseri+jense heather + Gardnerella vaginalis + Atopobium vaginae rRNA WILLIAM+probe Ql (Vag fld) Negative Negative for bacterial vaginosis [facility] ONESIMO / TRICHOMONAS AMPLIF ICATIONon 10-27-2021 C. glabrata RNA WILLIAM+probe Ql (Vag fld) Negative Negative for Onesimo glabrata [facility] Onesimo albicans, C. dubliniensis, C. parapsilosis, and C. tropicalis RNA WILLIAM+probe Ql (Vag fld) Negative Negative for Onesimo species [facility] T. vaginalis DNA WILLIAM+probe Ql (Unsp spec) Negative Negative for Trichomonas vaginalis by amplification [facility] UA DIP, URINE (POC)on 2021 BILIRUBIN UA (POCT) Negative Negative [facility] CLARITY UA (POCT) Clear [facility] COLOR UA (POCT) Dark yellow [facility] GLUCOSE UA (POCT) Negative Negative mg/dL [facility] HEMOGLOBIN/BLOOD UA (POCT) Negative Negative [facility] KETONE UA (POCT) Negative Negative [facility]/dL [facility] LEUKOCYTES UA (POCT) Negative Negative [facility] NITRITE UA (POCT) Negative Negative [facility] PH UA (POCT) 6.0 4.5 - 8.0 [facility] Protein Ql (U) Negative Negative mg/dL [facility] SPECIFIC GRAVITY UA (POCT) >=1.030 1.005 - 1.030 [facility] UROBILINOGEN UA (POCT) 0.2 E.U./dL Normal E.U./ dL [facility] Culture, urineon 07-27-2021 Bacteria identified Cx Nom (U) Mixed Gram Pos & Gram Neg Org [facility] Work Phone: Absolute lymphocyte counton 07-26-2021 Lymphocytes Auto (Unsp spec) [#/Vol] 2.58 10*3/uL 0.83-4.51 [facility] Work Phone: Basophil percentageon 2021 Basophils/100 WBC (Bld) 0.7 % 0-1 [facility] Work Phone: Eosinophils/100 WBC (Bld) 2.2 % 0-5 [facility] Work Phone: Neutrophils (Bld) [#/Vol] 4.6 10*3/uL 2.0-7.7 [facility] Work Phone: Neutrophils/100 WBC (Bld) 57.1 % 47-70 [facility] Work Phone: WBC (Bld) [#/Vol] 8.0 10*3/uL 4.4-11.0 [facility] Work Phone: Blood erythrocytes count (nu mber/volume)on 07-26-2021 RBC (Bld) [#/Vol] 5.03 10*6/uL 4.2-5.4 [facility] Work Phone: Blood hemoglobin measurement (mass/volume)on 07-26-2021 Hemoglobin (Bld) [Mass/Vol] 16.1 g/dL 12.0-15.0 [facility] Work Phone: Blood lymphocytes/100 leukoc yteson 07-26-2021 Lymphocytes/100 WBC (Bld) 32.1 % 19-41 [facility] Work Phone: Blood monocytes/100 leukocyt eson 07-26-2021 Monocytes/100 WBC (Bld) 7.7 % 0-10 [facility] Work Phone: Blood platelet mean volumeon 07-26-2021 Platelet mean volume (Bld) [Entitic vol] 12.3 fL 6.2-12.0 [facility] Work Phone: [phone] Determination of erythrocyte mean corpuscular volume (MCV)on 07-26-2021 MCV (RBC) [Entitic vol] 94.0 fL 81-99 [facility] Work Phone: Hematocrit Auto (Bld) [Volum e fraction]on 07-26-2021 Hematocrit (Bld) [Volume fraction] 47.3 % 37-47 [facility] Work Phone: [phone] Laboratory - Hematology and Cell countson 07-26-2021 Erythrocyte distribution width (RBC) [Entitic vol] 48.4 fL 35.1-43.9 [facility] Work Phone: [phone] Erythrocyte distribution width (RBC) [Ratio] 14.0 % 11.6-14.6 [facility] Work Phone: Immature granulocytes/100 WBC (Bld) 0.200 % 0.0-0.9 [facility] Work Phone: [phone] Comment on above: IG% - Immature Granu locytes (promyelocytes, myelocytes and metamyelocytes) > 1% indicates that a LEFT SHIFT is Present. MCH (RBC) [Entitic mass] 32.0 pg 27.0-32.0 [facility] Work Phone: Nucleated RBC/100 WBC (Bld) [Ratio] 0 % 0-5 [facility] Work Phone: MCHC Auto (RBC) [Mass/Vol]on 07-26-2021 MCHC (RBC) [Mass/Vol] 34.0 g/dL 32-36 [facility] Work Phone: Platelets bldon 07-26-2021 Platelets (Bld) [#/Vol] 235 10*3/uL 150-450 [facility] Work Phone: Absolute lymphocyte counton 06-06-2021 Lymphocytes Auto (Unsp spec) [#/Vol] 0.76 10*3/uL 0.83-4.51 [facility] Work Phone: Basophil percentageon 2021 Basophils/100 WBC (Bld) 0.2 % 0-1 [facility] Work Phone: Bilirubin [Mass/Vol] 0.40 mg/dL 0.20-1.00 [facility] Work Phone: Comment on above: For patients on eltr ombopag therapy, use of Dimension [place] TBIL is not recommended. Chloride [Moles/Vol] 106 mmol/L 98-107 [facility] Work Phone: Eosinophils/100 WBC (Bld) 0.0 % 0-5 [facility] Work Phone: [phone] Glucose [Mass/Vol] 107 mg/dL 74-106 [facility] Work Phone: Comment on above: Fasting Glucose resu lt from 100 to 125 mg/dL suggests IMPAIRED HOMEOSTASIS per A.D.A. criteria. Neutrophils (Bld) [#/Vol] 5.3 10*3/uL 2.0-7.7 [facility] Work Phone: Neutrophils/100 WBC (Bld) 85.0 % 47-70 [facility] Work Phone: Potassium [Moles/Vol] 4.2 mmol/L 3.5-5.1 [facility] Work Phone: Protein [Mass/Vol] 7.6 g/dL 6.4-8.2 [facility] Work Phone: Sodium [Moles/Vol] 140 mmol/L 136-145 [facility] Work Phone: WBC (Bld) [#/Vol] 6.2 10*3/uL 4.4-11.0 [facility] Work Phone: Blood erythrocytes count (nu mber/volume)on 06-06-2021 RBC (Bld) [#/Vol] 4.51 10*6/uL 4.2-5.4 [facility] Work Phone: Blood hemoglobin measurement (mass/volume)on 06-06-2021 Hemoglobin (Bld) [Mass/Vol] 14.0 g/dL 12.0-15.0 [facility] Work Phone: Blood lymphocytes/100 leukoc yteson 06-06-2021 Lymphocytes/100 WBC (Bld) 12.2 % 19-41 [facility] Work Phone: Blood monocytes/100 leukocyt eson 06-06-2021 Monocytes/100 WBC (Bld) 2.4 % 0-10 [facility] Work Phone: Blood platelet mean volumeon 06-06-2021 Platelet mean volume (Bld) [Entitic vol] 11.5 fL 6.2-12.0 [facility] Work Phone: [phone] Determination of erythrocyte mean corpuscular volume (MCV)on 06-06-2021 MCV (RBC) [Entitic vol] 93.6 fL 81-99 [facility] Work Phone: Hematocrit Auto (Bld) [Volum e fraction]on 06-06-2021 Hematocrit (Bld) [Volume fraction] 42.2 % 37-47 [facility] Work Phone: [phone] Laboratory - Chemistry and C hemistry - challengeon 06-06-2021 ALP [Catalytic activity/Vol] 123 U/L 45-117 [facility] Work Phone: ALT [Catalytic activity/Vol] 21 U/L 13-56 [facility] Work Phone: CO2 [Moles/Vol] 29.0 mmol/L 21.0-32.0 [facility] Work Phone: Globulin (S) [Mass/Vol] 3.9 g/dL 2.2-4.2 [facility] Work Phone: Urea nitrogen/Creatinine [Mass ratio] 18.4 mg/mg 10-20 [facility] Work Phone: Laboratory - Hematology and Cell countson 06-06-2021 Erythrocyte distribution width (RBC) [Entitic vol] 49.0 fL 35.1-43.9 [facility] Work Phone: Erythrocyte distribution width (RBC) [Ratio] 14.3 % 11.6-14.6 [facility] Work Phone: Immature granulocytes/100 WBC (Bld) 0.200 % 0.0-0.9 [facility] Work Phone: Comment on above: IG% - Immature Granu locytes (promyelocytes, myelocytes and metamyelocytes) > 1% indicates that a LEFT SHIFT is Present. MCH (RBC) [Entitic mass] 31.0 pg 27.0-32.0 [facility] Work Phone: Nucleated RBC/100 WBC (Bld) [Ratio] 0 % 0-5 [facility] Work Phone: MCHC Auto (RBC) [Mass/Vol]on 06-06-2021 MCHC (RBC) [Mass/Vol] 33.2 g/dL 32-36 [facility] Work Phone: No Panel Informationon 06-06 Estimated GFR (MDRD) Amer 166 mL/min >60 [facility] Work Phone: Comment on above: GFR Calc Estimated GFR (MDRD) Non-Af Amer 137 mL/min >60 [facility] Work Phone: Comment on above: Non- GFR Calc Thyroid Stimulating Hormone (TSH) 0.68 uIU/mL 0.358-3.74 [facility] Work Phone: Vitamin D 25-Hydroxy 47.8 ng/mL [facility] Work Phone: Comment on above: Vitamin D 25(OH) Sta tus Range Deficiency <20 ng/mL (50nmol/L) Insufficiency 20 - 30 ng/mL (50 - 75 nmol/L) Sufficiency 30 - 100 ng/mL (75 - 250 nmol/L) Toxicity >100 ng/mL (>250 nmol/L) Platelets bldon 06-06-2021 Platelets (Bld) [#/Vol] 326 10*3/uL 150-450 [facility] Work Phone: Serum or plasma albumin kamilah urement (mass/volume)on 06-06-2021 Albumin [Mass/Vol] 3.7 g/dL 3.2-5.0 [facility] Work Phone: Serum or plasma albumin/glob ulin mass ratioon 06-06-2021 Albumin/Globulin [Mass ratio] 0.9 {ratio} 0.9-2.4 [facility] Work Phone: Serum or plasma calcium kamilah urement (mass/volume)on 06-06-2021 Calcium [Mass/Vol] 9.1 mg/dL 8.5-10.1 [facility] Work Phone: Serum or plasma creatinine m easurement (mass/volume)on 06-06-2021 Creatinine [Mass/Vol] 0.49 mg/dL 0.55-1.02 [facility] Work Phone: Comment on above: The validity of the calculated GFR & GFRAA in patients over 70 years has not been determined. Clinical correlation is essential. Serum or plasma urea nitroge n measurement (mass/volume)on 06-06-2021 Urea nitrogen [Mass/Vol] 9 mg/dL 7-18 [facility] Work Phone: Thin prep Papanicolaou smear with manual screeningon 06-06-2021 Thin prep Papanicolaou smear with manual screening 19 U/L 15-37 [facility] Work Phone: Thin prep Papanicolaou smear with manual screening 5 5-15 [facility] Work Phone: CNTHERAPYon 01-12-2018 CNTHERAPY OT/PT/Speech Visit (SPEMDR) IRMA QUINTEROSTONYA ([id number]) 1960 Tanya Romero Time Provider Yrdeujosyk03/5/18 10:30 AM SPEECH [facility] SPEMDREncounter Number: [id number] Time Provider Department Ykdabr5501/12/2018 10:30 AM [id number] [facility] H*SPEMDR [facility]: Speech Instrumental Swallow Eval [3660] Speech Discharge [3488]Primary Visit Diagnosis:Oral phase dysphagia [R13.11]Allergies As of Date: 01/12/2018 Noted Allergy ReactionAUGMENTIN (AMOXICILLIN-POT CLAVUL*10/16/2010 6 - Diarrhea Comments: Been on several times, but seems that diarrhea side effect was getting worse each time tookOTHER [Other] 11/13/2004 Comments: X-RAY/RADIATION MICROWAVE/REMOTES PT HAS PACEMAKER-TYPE BOX IN CHEST TO HELP CONTROL SPASMS.Date Reviewed: 12/20/2017Reviewed by: Libby Mariano Ma - Fully AssessedPrescriptions as of 01/12/2018 Sig: AZITHROMYCIN 200 MG/5 ML ORAL* Give 11 mL day one then 5.5 m* GUAIFENESIN 100 MG/5 ML ORAL * Take 10 mL by mouth three flaquito* ALBUTEROL SULFATE HFA 90 MCG/* Inhale 2 Puffs as instructed * ALBUTEROL SULFATE HFA 90 MCG/* Inhale 2 Puffs as instructed * MELOXICAM 7.5 MG TABLET Take 7.5 mg by mouth once clyde* SENNOSIDES 8.6 MG TABLET Take 8.6 mg by mouth twice da* GUAIFENESIN 100 MG/5 ML ORAL * Take 20 mL by mouth three flaquito* MIRTAZAPINE 7.5 MG TABLET Take 7.5 mg by mouth daily at* ERGOCALCIFEROL (VITAMIN D2) 5* Take 50,000 Units by mouth on* PROZAC ORAL Take 10 mL by mouth once jayesh* PSEUDOEPHEDRINE-GUAIFEN ESIN E* Take 1-2 tablets by mouth marlyn* Patient not taking: Reported on 12/20/2017 IBUPROFEN 800 MG TABLET Take 1 tablet by mouth every * MELATONIN 3 MG TABLET take 1.5 tablets( 4.5mg) jayesh* LACTULOSE 20 GRAM/30 ML ORAL * Take 30 mL by mouth twice clyde* OMEPRAZOLE 20 MG CAPSULE,CALIXTO* Take 1 capsule by mouth once * LORATADINE 10 MG DISINTEGRATI* Take 1 tablet by mouth once d* LEVOTHYROXINE 75 MCG TABLET Take 1 tablet by mouth once d* Patient taking differently: Take 50 mcg by mouth once clyde* AZELASTINE 0.05 % EYE DROPS Use 1 Drop in both eyes twice* PHENOL 1.4 % MUCOSAL AEROSOL * Use 1 [place] as instructed as * Patient not taking: Reported on 12/20/2017 * DESITIN 40 % TOPICAL OINTMENT Apply to buttocks twice daily * COMPOUNDED PRESCRIPTION Light talker Bruce Xiong* * WHEELCHAIR CUSHION MISC Use daily for prevention of d* * MILK OF MAGNESIA 400 MG/5 ML * as neededProgress Notes:Elizabeth Iniguez CCC-CLINICAL LEADER 01/12/2018 4:34 PM SignedEpisode Visit Count: Visit count could not be calculated. Make sure you areusing a visit which is associated with an episode.Start of Care Date: 01/12/18Onset Date: 12/08/17Patient Identified by Name and Date of : [facility] REHABILITATION AND SPORTS THERAPYMODIFIED BARIUM SWALLOWPLAN OF CARE:Impression / Recommendation: Based on MBS assessment performed on 01/12/2018,patient presents with oral phase dysphagia and possible esophageal ascharacterized by findings below.- repetitive, disorganized tongue movements with anterior protrusion notedduring evaluation- decreased bolus control/manipulation- oral residue collection on oral structures; cleared following swallowcompletions- minimal chewing/mastication with majority of bolus unchewed; anteriorexpulsion from oral cavity noted- premature spillage of bolus to level of valleculae- no aspiration/penetration noted during this evaluation---esophageal retention with retrograde flow below pharyngo-esophageal segmentnotedRECOMMENDAT ION:Diet Recommendations: Dysphagia Level 2 (Dysphagia Mechanically Altered);ThinliquidsSwa llowing Precautions Recommendations:-1:1 Supervision-Alert (patient should be fully alert for P.O. Intake);-Alternate bites and sips;-Check oral cavity for remaining food;-Extended time between presentations;-Feed / Eat at a slow rate;-Limit Distractions;-Maintain an upright position 20-30 minutes following all oral intake;-Medications crushed;-Pulmonary monitoring;-Self-monito ring;-Sit upright 90 degrees for all PO;-Small Bite/Sip;-Supervision/A ssistance for meals.CLINICAL LEADER Recommendations:-Diet-S wallowing Precautions- continue Speech Therapy recommendations within jail Goals for Modified Barium Swallow: created for 01/12/2018 only.The patient and caregiver will be able to demonstrate adequate return ofknowledge of today's fluoroscopic assessment and recommendations to maximizeoverall safety with oral intake. (baseline = no knowledge). GOAL METG Code Functional Limitations: SwallowingSwallow Current Status (G8996): CK - At least 40 percent but less than 60percent impaired, limited or restrictedSwallow Goal Status (G8997): CJ - At least 20 percent but less than 40 percentimpaired, limited or restrictedSwallow Discharge Status (G8998): CK - At least 40 percent but less than 60percent impaired, limited or restrictedAssessment per FRANKY Functional Communication Measure and treatmentrecommendation s:Swallowing Level: LEVEL 4: Swallowing is safe, but usually requires moderatecues to use compensatory strategies, and/or the individual has moderate dietrestrictions and/or still requires tube feeding and/or oral supplements.SUBJECTIVE: Tonya Fletcher is a 57 year old female seen today for a ModifiedBarium Swallow (MBS) Study.- assess risk for aspiration; texture tolerance levels . Patient resides ingroup home with Caregivers assisting with all ADL tasks. Caregiver reports noprevious PNA or recent change in medical status. Caregiver note Pt coughssometimes, but that is nothing newPatient Goals: eat/drink without restrictionsPrior Functional Level: Required Assistance (aregivers assist/ [facility] )Assistance Required With: Swallowing Precautions;Other: See Comment (- all ADLtasks)Assistance Available: 24 Hour (- lives in jail )OBJECTIVE: MEASURES WITH LEVEL OF FUNCTION:Instrumental Swallow Assessment Type: Modified Barium Swallow StudyModified Barium Swallow Views: Lateral positionMBS Consistencies Tested: Thin Barium Liquids;Pudding Thick BariumLiquids;[place] Thick Barium Liquids;Soft Solid With Barium Paste;Puree WithBarium Paste;Solid With Barium PasteOral Phase:Lip Closure: Profuse escape through open lips (- anterior protrusion of tonguebeyond lips )Profuse Escape Through Open Lips With: Thin Liquids;[place] ThickenedLiquids;Puree; Soft Solid;SolidTongue Control During Bolus Hold: Escape to lateral buccal cavity and/or floorof mouthBolus Preparation/Mastication : Minimal mastication noted with majority of bolusleft unchewedMajority Of Bolus Left Unchewed With: SolidBolus Transport/Lingual Motion: Repetitive/disorganized tongue motion (tonguepumping)Oral Residue: Residue collection on oral structureInitiation Of Pharyngeal Swallow: Bolus head at posterior laryngeal surface ofepiglottisPharyngeal Phase: Within Functional Limits ExceptEsophageal Clearance In An Upright Position: Esophageal retention withretrograde flow below the pharyngoesophageal segmentPenetration/Aspi ration Scale: 1-Material does not enter airwayEducation:Educati onLearning Preferences: Demonstration;Explanati on;Printed Materials;PerformanceBa rriers: Cognitive Limitations;Communicati on DeficitLearning/Educati onal Needs: Compensatory Strategies;DietModifica tion(s);Precautions;Rosita abilitation Techniques and Procedures;Safety(Careg iver education )Education Provided: Yes, see treatment interventions for education providedEducation Provided To: Caregiver;PatientEducat ion Mode/Type: Demonstration;Explanati on/Discussion;Literatur e/PrintedMaterials;Perf ormance;Teach Back;VideoResponse to Education/Teach Back: States/Identifies;Retur n DemonstrationTREATMENT: Performed Modified Barium Swallowing Study (50542).Evaluation: Modified Barium Swallow Evaluation (09315)Swallow / Dysphagia (74266): Skilled Intervention: -Provided video review;writtenAND verbal education related to a typical swallowing mechanism in a compareand contrast manner compared to this patient's current skill set- Educated and advised patient / caregiver on texture and liquid consistencyrecommendati ons- Instructed patient / caregiver on recommended compensatory strategies tomaximize safety with oral intake while maintaining nutrition, hydration andmedication stability. -Demonstrated, instructed, modeled and provided written educational handout(s)for Dysphagia Level 2 - Mechanically Altered/ thin liquids materials; safeswallow recommendations .Education regarding findings from today's Modified Barium Swallowing study(fluoroscopic study) and suggested plans for treatment were provided to thePatient/Caregiver through verbal / written instruction, images and/ordemonstration. Patient/Caregiver was able to demonstrate understanding ofeducation provided this date.Billing:Modified Barium Swallow (50948) and Dysphagia Treatment (66537)Total time: 30 minutesElizabeth Iniguez CCC-CLINICAL LEADER [facility]ania Hendricks [facility] PROGRESSon 01-12-2018 Protein mass conc HNO ID: [id number]: Elizabeth (Reservations Specialist) RosaliotService: (none)Author Type: Speech Language PathologistType: Progress NotesFiled: 01/12/2018 4:34 PMNote Text:Episode Visit Count: Visit count could not be calculated. Make sure youare using a visit which is associated with an episode.Start of Care Date: 01/12/18Onset Date: 12/08/17Patient Identified by Name and Date of : [facility] REHABILITATION AND SPORTS THERAPYMODIFIED BARIUM SWALLOWPLAN OF CARE:Impression / Recommendation: Based on MBS assessment performed on01/12/2018, patient presents with oral phase dysphagia and possibleesophageal as characterized by findings below.- repetitive, disorganized tongue movements with anterior protrusion notedduring evaluation- decreased bolus control/manipulation- oral residue collection on oral structures; cleared following swallowcompletions- minimal chewing/mastication with majority of bolus unchewed; anteriorexpulsion from oral cavity noted- premature spillage of bolus to level of valleculae- no aspiration/penetration noted during this evaluation---esophageal retention with retrograde flow below pharyngo-esophagealsegm ent notedRECOMMENDATION: t Recommendations: Dysphagia Level 2 (Dysphagia MechanicallyAltered);Th in liquidsSwallowing Precautions Recommendations:-1:1 Supervision-Alert (patient should be fully alert for P.O. Intake);-Alternate bites and sips;-Check oral cavity for remaining food;-Extended time between presentations;-Feed / Eat at a slow rate;-Limit Distractions;-Maintain an upright position 20-30 minutes following all oral intake;-Medications crushed;-Pulmonary monitoring;-Self-monito ring;-Sit upright 90 degrees for all PO;-Small Bite/Sip;-Supervision/A ssistance for meals.CLINICAL LEADER Recommendations:-Diet-S wallowing Precautions- continue Speech Therapy recommendations within jail Goals for Modified Barium Swallow: created for 01/12/2018 only.The patient and caregiver will be able to demonstrate adequate return ofknowledge of today's fluoroscopic assessment and recommendations tomaximize overall safety with oral intake. (baseline = no knowledge). GOALMETG Code Functional Limitations: SwallowingSwallow Current Status (G8996): CK - At least 40 percent but less than 60percent impaired, limited or restrictedSwallow Goal Status (G8997): CJ - At least 20 percent but less than 40percent impaired, limited or restrictedSwallow Discharge Status (G8998): CK - At least 40 percent but less than60 percent impaired, limited or restrictedAssessment per FRANKY Functional Communication Measure and treatmentrecommendation s:Swallowing Level: LEVEL 4: Swallowing is safe, but usually requiresmoderate cues to use compensatory strategies, and/or the individual hasmoderate diet restrictions and/or still requires tube feeding and/or oralsupplements.SUBJECT CHRIS: Tonya Fletcher is a 57 year old female seen today for aModified Barium Swallow (MBS) Study.- assess risk for aspiration; texture tolerance levels . [facility]in jail with Caregivers assisting with all ADL tasks. Caregiverreports no previous PNA or recent change in medical status. Caregivernote Pt coughs sometimes, but that is nothing newPatient Goals: eat/drink without restrictionsPrior Functional Level: Required Assistance (aregivers assist/ lives ingroup home )Assistance Required With: Swallowing Precautions;Other: See Comment (- allADL tasks)Assistance Available: 24 Hour (- lives in jail )OBJECTIVE: MEASURES WITH LEVEL OF FUNCTION:Instrumental Swallow Assessment Type: Modified Barium Swallow StudyModified Barium Swallow Views: Lateral positionMBS Consistencies Tested: Thin Barium Liquids;Pudding Thick BariumLiquids;[place] Thick Barium Liquids;Soft Solid With Barium Paste;PureeWith Barium Paste;Solid With Barium PasteOral Phase:Lip Closure: Profuse escape through open lips (- anterior protrusion oftongue beyond lips )Profuse Escape Through Open Lips With: Thin Liquids;[place] ThickenedLiquids;Puree; Soft Solid;SolidTongue Control During Bolus Hold: Escape to lateral buccal cavity and/orfloor of mouthBolus Preparation/Mastication : Minimal mastication noted with majority ofbolus left unchewedMajority Of Bolus Left Unchewed With: SolidBolus Transport/Lingual Motion: Repetitive/disorganized tongue motion(tongue pumping)Oral Residue: Residue collection on oral structureInitiation Of Pharyngeal Swallow: Bolus head at posterior laryngealsurface of epiglottisPharyngeal Phase: Within Functional Limits ExceptEsophageal Clearance In An Upright Position: Esophageal retention withretrograde flow below the pharyngoesophageal segmentPenetration/Aspi ration Scale: 1-Material does not enter airwayEducation:Educati onLearning Preferences: Demonstration;Explanati on;PrintedMaterials;Per formanceBarriers: Cognitive Limitations;Communicati on DeficitLearning/Educati onal Needs: Compensatory Strategies;DietModifica tion(s);Precautions;Rosita abilitation Techniques andProcedures;Safety (Caregiver education )Education Provided: Yes, see treatment interventions for educationprovidedEducat ion Provided To: Caregiver;PatientEducat ion Mode/Type:Demonstration ;Explanation/Discussion ;Literature/PrintedMate rials;Performance;Teach Back;VideoResponse to Education/Teach Back: States/Identifies;Retur n DemonstrationTREATMENT: Performed Modified Barium Swallowing Study (26889).Evaluation: Modified Barium Swallow Evaluation (71561)Swallow / Dysphagia (69772): Skilled Intervention: -Provided videoreview; writtenAND verbal education related to a typical swallowingmechanism in a compare and contrast manner compared to this patient'scurrent skill set- Educated and advised patient / caregiver on texture and liquidconsistency recommendations- Instructed patient / caregiver on recommended compensatory strategies tomaximize safety with oral intake while maintaining nutrition, hydrationand medication stability. -Demonstrated, instructed, modeled and provided written educationalhandout(s) for Dysphagia Level 2 - Mechanically Altered/ thin liquidsmaterials; safe swallow recommendations .Education regarding findings from today's Modified Barium Swallowing study(fluoroscopic study) and suggested plans for treatment were provided tothe Patient/Caregiver through verbal / written instruction, images and/ordemonstration. Patient/Caregiver was able to demonstrate understanding ofeducation provided this date.Billing:Modified Barium Swallow (34631) and Dysphagia Treatment (68917)Total time: 30 minutesElizabeth Iniguez CCC-CLINICAL LEADER [facility] XR MOD BARIUM SWALLOW W CHAPIS Durand 01-12-2018 Protein mass conc * * *Final Report* * *DATE OF EXAM: Jan 12 2018 11:23AM MDX 5377 - XR MOD BARIUM SWALLOW W SPEECH / REASON: R13.10-Esophageal dysphagia * * * * Physician Interpretation * * * * MODIFIED ESOPHAGRAM WITH VIDEO BY SPEECH PATHOLOGYFluoroscopy was provided for an oropharyngeal phase swallowing examination performed by Speech Pathology. The exam is recorded for review. Please refer to the Speech Pathologist's report, available in EPIC.Fluoroscopic Radiation Summary:Plane A, Air Kerma: 18.0 mGyDose Area Product (DAP): 3450.0 mGy*gpN2Lmpils time: 3:23 min:secRESULT: See speech pathology notes.IMPRESSION: See speech pathology notes.Clock And Watch Assembler: ALEXIS Transcribe Date/Time: Jan 12 2018 11:31ADictated by : LISY ALONSO MDThis examination was interpreted and the report reviewed and electronically signed by: LISY ALONSO MD on Jan 12 2018 1:06PM [id number] [facility] BMPon 11-07-2016 Anion gap 8 mmol/L Normal 5-16 [facility] Comment on above: Order Comment: Campu s: M Performed By: #### L 500.73610, L500.22362 ####[facility] [id number] [place], [place] [address]Si# [phone] BUN/Creatinine Ratio 14 mg/mg Low 15-24 [facility] Comment on above: Order Comment: Campu s: M Performed By: #### L 500.30634, L500.56692 ####[facility] [address] [place], [place] [address]Fr# [phone] Calcium 8.9 mg/dL Normal 8.5-10.1 [facility] Comment on above: Order Comment: Campu s: M Performed By: #### L 500.09790, L500.44584 ####[facility] [id number] [place], [place] [address]Js# [phone] Chloride 103 mmol/L Normal 98-107 [facility] Comment on above: Order Comment: Campu s: M Performed By: #### L 500.48680, L500.98014 ####[facility] [id number] [place], [place] [address]Gk# [phone] CO2 30 mmol/L Normal 21-32 [facility] Comment on above: Order Comment: Campu s: M Performed By: #### L 500.51059, L5.30429 ####[facility] [id number] [place], [place] [address]Jd# [phone] Creatinine 0.487 mg/dL Low 0.510-0.950 [facility] Comment on above: Order Comment: Campu s: M Result Comment: Ariana ents receiving either N-Acetylcysteine (NAC) orMetamizole prior to venipuncture, may have falsely depressedresults. Performed By: #### L 500.50479, L500.25142 ####[facility] [id number] [place], [place] [address]Tq# [phone] Glucose mass conc 84 mg/dL [facility] 70-100 [facility] Comment on above: Order Comment: Campu s: M Result Comment: 70-1 00-Normal Fasting; 161-700-Mfzztbfy Fasting; greaterthan 126 on more than one result-Diabetes. ADA guidelines Performed By: #### L 500.08016, L500.69660 ####[facility] [id number] [place], [place] [address]Yc# [phone] Potassium molar conc 4.4 mmol/L Normal 3.5-5.1 [facility] Comment on above: Order Comment: Campu s: M Performed By: #### L 500.02444, L500.03611 ####[facility] [id number] [place], [place] [address]Oi# [phone] Sodium 140 mmol/L Normal 136-145 [facility] Comment on above: Order Comment: Campu s: M Performed By: #### L 500.11311, L500.33897 ####[facility] [id number] [place], [place] [address]Mk# [phone] Urea nitrogen 7 mg/dL Normal 7-26 [facility] Comment on above: Order Comment: Campu s: M Performed By: #### L 500.97050, L500.06993 ####[facility] [id number] [place], [place] [address]Bp# [phone] GFR ESTon 11-07-2016 IF AMER Greater than 60 Normal [facility] Comment on above: Order Comment: Campu s: M Performed By: #### L 500.25854, L500.15370 ####[facility] [id number] [place], [place] [address]Ne# [phone] IF non-AFR AMER Greater than 60 Normal [facility] Comment on above: Order Comment: Campu s: M Performed By: #### L 500.71879, L500.74093 ####[facility] [id number] [place], [place] [address]If# [phone] ORon 11-07-2016 OPERATIVE REPORT This is a preliminar y report only, as the practitioner review and authentication has not occurred. Normal [facility] OR DATE OF SERVICE: 11/07/2016PREOPERATIVE DIAGNOSES:1. Periodontitis.2. Failing amalgam restorations.POSTOPERAT CHRIS DIAGNOSES:1. Periodontitis.2. Failing amalgam restorations.OPERATION: 1. Thorough cleansing of oral cavity with chlorhexidine rinse.2. Full mouth dental and periodontal charting.3. Four-bite wing dental radiographs.4. Prophy.5. Amalgam restorations on 2, 3, 14, and 29.SURGEON: Yang Abrams DMD.TECHNICAL SERVICES ASSISTANT: [facility] staff.ANESTHESIA: General anesthesia via nasotracheal intubation.PREOPERATIVE MEDICATIONS: None.ESTIMATED BLOOD LOSS: Minimal.FLUIDS: 500 mL of lactated Ringer's.COMPLICATIONS: None.POSTOPERATIVE CONDITION: The patient was returned extubated to the postanesthesiacare unit in stable condition.DESCRIPTION OF PROCEDURE: The patient was taken to the operating room in supineposition, prepped and draped in the usual manner. EKG lines were placed.Endotracheal intubation was successful. Patient identity and surgical procedure wasverified and witnessed. The patient's oral cavity was brushed with chlorhexidinemouth rinse. Four-bite wing dental radiographs were taken. Perio probing revealedgeneralized periodontitis with 2 to 5 mm pocket. Scaling and root planing withcoronal prophy was performed. Amalgam restorations were replaced on 2OB, 3O, 14OB,and 29DO. All anterior mandibular teeth were smoothed to prevent lip biting. Oralcavity was irrigated and inspected and no major bleeding was visible. Throat packwas removed and the patient's oral cavity and face was cleaned with gauze and saline.The patient tolerated the procedure well. The patient was extubated and returned tothe postanesthesia care unit in satisfactory condition. [facility] PATIENT NAME: TONYA FLETCHER L132Josselin Jazzy Guzmán [facility] REC #: [id number] [address] DATE:DISCHARGE DATE:OPERATIVE REPORT ATTENDING PHY: Yang Abrams DMDNOTE: The patient has excellent oral hygiene with no abnormalities noted. There isno active infection. Caregivers are doing an excellent job of hygiene care.Unfortunately, the patient is not a candidate for removable prosthetics. I havediscussed at length with the guardian that [place]. I am willing to send the patient [facility] for implant placement, but itwould be an out of pocket expense. I feel that the patient is not suffering fromloss of chewing ability and is functioning and adapting very well from loss ofanterior teeth. There is also no need for use of Orajel constantly as there is noinfection in the mouth. I feel this to be a learned behavior by the patient and itis not a necessity. Yang Abrams DMDJS/[id number]: 11/07/2016 09:18DT: 11/07/2016 09:39SSI File#: [id number] #: [id number] [facility] PATIENT NAME: TONYA FLETCHER L132Josselin [facility] Dr[address] Guzmán MEDICAL REC #: [id number], [place] [address] DATE:DISCHARGE DATE:OPERATIVE REPORT ATTENDING PHY: Yang Abrams DMD Normal [facility] No Panel Information Influenza Types A,B Direct FA (DENY) [facility] Work Phone: RSV Ag Immune stain Ql (Tiss ) Rapid RSV (DFA) RSV Antigen [facility] Work Phone: Vital Signs Date Time Vital Sign Value Performing Clinician Faci lity 08-26-2024 18:25-0400 Body temperature 96.8 [degF] Haja Coley MD Work Phone: [facility] 08-26-2024 18:25-0400 Diastolic blood pressure 78 mm[Hg] Haja Coley MD Work Phone: [facility] 08-26-2024 18:25-0400 Heart rate 82 /min Haja Coley MD Work Phone: [facility] 08-26-2024 18:25-0400 Respiratory rate 21 /min Haja Coley MD Work Phone: [facility] 08-26-2024 18:25-0400 SaO2% (BldA) [Mass fraction] 94 % Haja Coley MD Work Phone: [facility] 08-26-2024 18:25-0400 Systolic blood pressure 130 mm[Hg] Haja Coley MD Work Phone: [facility] 08-10-2024 14:49-0400 Diastolic blood pressure 80 mm[Hg] Dr. Michelle Marroquin MD Work Phone: [facility] 08-10-2024 14:49-0400 Heart rate 74 /min Dr. Michelle Marroquin MD Work Phone: [facility] 08-10-2024 14:49-0400 SaO2% (BldA) [Mass fraction] 93 % Dr. Michelle Marroquin MD Work Phone: [facility] 08-10-2024 14:49-0400 Systolic blood pressure 120 mm[Hg] Dr. Michelle Marroquin MD Work Phone: [facility] 08-10-2024 14:47-0400 Body height 152.[address] Micehlle Marroquin MD Work Phone: [facility] 06-11-2024 13:09-0400 Body temperature 98.2 [degF] Dr. Michelle Marroquin MD Work Phone: [facility] 06-11-2024 13:09-0400 Diastolic blood pressure 56 mm[Hg] Dr. Michelle Marroquin MD Work Phone: [facility] 06-11-2024 13:09-0400 Heart rate 82 /min Dr. Michelle Marroquin MD Work Phone: [facility] 06-11-2024 13:09-0400 Respiratory rate 18 /min Dr. Michelle Marroquin MD Work Phone: [facility] 06-11-2024 13:09-0400 SaO2% (BldA) [Mass fraction] 96 % Dr. Michelle Marroquin MD Work Phone: [facility] 06-11-2024 13:09-0400 Systolic blood pressure 108 mm[Hg] Dr. Michelle Marroquin MD Work Phone: [facility] 05-18-2024 17:06-0400 Body temperature 98.2 [degF] Dr. Michelle Marroquin MD Work Phone: [facility] 05-18-2024 17:06-0400 Diastolic blood pressure 70 mm[Hg] Dr. Michelle Marroquin MD Work Phone: [facility] 05-18-2024 17:06-0400 Heart rate 76 /min Dr. Michelle Marroquin MD Work Phone: [facility] 05-18-2024 17:06-0400 Respiratory rate 14 /min Dr. Michelle Marroquin MD Work Phone: [facility] 05-18-2024 17:06-0400 Systolic blood pressure 110 mm[Hg] Dr. Michelle Marroquin MD Work Phone: [facility] 04-21-2024 13:58-0500 Body height 152.[address] Michelle Marroquin MD Work Phone: [facility] 04-21-2024 13:58-0500 Body temperature 98.4 [degF] Dr. Michelle Marroquin MD Work Phone: [facility] 04-21-2024 13:58-0500 Diastolic blood pressure 64 mm[Hg] Dr. Michelle Marroquin MD Work Phone: [facility] 04-21-2024 13:58-0500 Heart rate 92 /min Dr. Michelle Marroquin MD Work Phone: [facility] 04-21-2024 13:58-0500 Respiratory rate 18 /min Dr. Michelle Marroquin MD Work Phone: [facility] 04-21-2024 13:58-0500 SaO2% (BldA) [Mass fraction] 95 % Dr. Michelle Marroquin MD Work Phone: [facility] 04-21-2024 13:58-0500 Systolic blood pressure 110 mm[Hg] Dr. Michelle Marroquin MD Work Phone: [facility] 04-09-2024 20:32-0500 Body temperature 97.6 [degF] Dr. Michelle Marroquin MD Work Phone: [facility] 04-09-2024 20:32-0500 Heart rate 89 /min Dr. Michelle Marroquin MD Work Phone: [facility] 04-09-2024 20:32-0500 Respiratory rate 16 /min Dr. Michelle Marroquin MD Work Phone: [facility] 04-09-2024 20:32-0500 SaO2% (BldA) [Mass fraction] 95 % Dr. Michelle Marroquin MD Work Phone: [facility] 07-21-2023 09:34-0400 Body temperature 98.1 [degF] [facility] 07-21-2023 09:34-0400 Diastolic blood pressure 79 mm[Hg] [facility] 07-21-2023 09:34-0400 Heart rate 86 /min [facility] 07-21-2023 09:34-0400 Respiratory rate 17 /min [facility] 07-21-2023 09:34-0400 SaO2% (BldA) [Mass fraction] 95 % [facility] 07-21-2023 09:34-0400 Systolic blood pressure 132 mm[Hg] [facility] 07-21-2023 08:18-0400 Body height 152.4 cm [facility] 06-13-2023 08:36-0400 Body temperature 97.9 [degF] [facility] 06-13-2023 08:36-0400 Diastolic blood pressure 82 mm[Hg] [facility] 06-13-2023 08:36-0400 Heart rate 97 /min [facility] 06-13-2023 08:36-0400 Respiratory rate 16 /min [facility] 06-13-2023 08:36-0400 SaO2% (BldA) [Mass fraction] 98 % [facility] 06-13-2023 08:36-0400 Systolic blood pressure 129 mm[Hg] [facility] 06-13-2023 05:51-0400 Body height 152.4 cm [facility] 06-13-2023 05:51-0400 Body mass index (BMI) [Ratio] 28.8 kg/m2 [facility] 06-13-2023 05:51-0400 Body weight 67.1 kg [facility] 08-15-2022 18:20-0400 Diastolic blood pressure 74 mm[Hg] [facility] 08-15-2022 18:20-0400 Heart rate 102 /min [facility] 08-15-2022 18:20-0400 Respiratory rate 20 /min [facility] 08-15-2022 18:20-0400 SaO2% (BldA) [Mass fraction] 95 % [facility] 08-15-2022 18:20-0400 Systolic blood pressure 121 mm[Hg] [facility] 08-15-2022 16:38-0400 Body mass index (BMI) [Ratio] 24.7 kg/m2 [facility] 08-15-2022 16:38-0400 Body weight 57.3 kg [facility] 08-15-2022 16:21-0400 Body height 152.4 cm [facility] 08-15-2022 16:21-0400 Body temperature 97.2 [degF] [facility] 03-21-2022 18:59-0500 Diastolic blood pressure 70 mm[Hg] Dr. Rocky Barlow Work Phone: [facility] 03-21-2022 18:59-0500 Heart rate 97 /min Dr. Rocky Barlow Work Phone: [facility] 03-21-2022 18:59-0500 Respiratory rate 18 /min Dr. Rocky Barlow Work Phone: [facility] 03-21-2022 18:59-0500 SaO2% (BldA) [Mass fraction] 98 % Dr. Rocky Barlow Work Phone: [facility] 03-21-2022 18:59-0500 Systolic blood pressure 130 mm[Hg] Dr. Rocky Barlow Work Phone: [facility] 03-21-2022 17:46-0500 Body temperature 98.3 [degF] Dr. Rocky Bralow Work Phone: [phone] [place] [address] 03-21-2022 17:42-0500 Body height 154.[address] Rocky Barlow Work Phone: [facility] 03-21-2022 17:42-0500 Body mass index (BMI) [Ratio] 24.5 kg/m2 Dr. Rocky Barlow Work Phone: [facility] 03-21-2022 17:42-0500 Body weight [address] Rocky Barlow Work Phone: [phone] [place] [address] 01-21-2022 14:13-0500 Body temperature 98.8 [degF] Dr. Rocky Barlow Work Phone: [facility] 01-21-2022 14:13-0500 Diastolic blood pressure 76 mm[Hg] Dr. Rocky Barlow Work Phone: [facility] 01-21-2022 14:13-0500 Heart rate 86 /min Dr. Rocky Barlow Work Phone: [facility] 01-21-2022 14:13-0500 Respiratory rate 14 /min Dr. Rocky Barlow Work Phone: [facility] 01-21-2022 14:13-0500 SaO2% (BldA) [Mass fraction] 98 % Dr. Rocky Barlow Work Phone: [facility] 01-21-2022 14:13-0500 Systolic blood pressure 128 mm[Hg] Dr. Rocyk Barlow Work Phone: [facility] 01-03-2022 17:18-0400 Body temperature 98.2 [degF] Dr. Rocky Barlow Work Phone: [facility] 01-03-2022 17:18-0400 Diastolic blood pressure 92 mm[Hg] Dr. Rocky Barlow Work Phone: [facility] 01-03-2022 17:18-0400 Heart rate 94 /min Dr. Rocky Barlow Work Phone: [facility] 01-03-2022 17:18-0400 Respiratory rate 20 /min Dr. Rocky Barlow Work Phone: [facility] 01-03-2022 17:18-0400 SaO2% (BldA) [Mass fraction] 95 % Dr. Rocky Barlow Work Phone: [facility] 01-03-2022 17:18-0400 Systolic blood pressure 118 mm[Hg] Dr. Rocky Barlow Work Phone: [facility] 01-03-2022 14:19-0400 Inhaled oxygen flow rate 2 L/min Dr. Rocky Barlow Work Phone: [facility] 01-02-2022 21:40-0400 Body height 152.[address] Rocky Barlow Work Phone: [facility] Work Phone: 01-02-2022 21:40-0400 Body mass index (BMI) [Ratio] 23.2 kg/m2 Dr. Rocky Barlow Work Phone: [facility] 01-02-2022 21:40-0400 Body weight [address] Rocky Barlow Work Phone: [facility] 10-26-2021 07:33-0400 Body temperature 97.2 [degF] Lennox Chamberlain APRN.LINING STRAP CLOSER Work Phone: [facility] 10-26-2021 07:33-0400 Diastolic blood pressure 80 mm[Hg] Lennox Bulmaro SURGERY ATTENDANT.LINING STRAP CLOSER Work Phone: [facility] 10-26-2021 07:33-0400 Heart rate 72 /min Lennox Chamberlain SURGERY ATTENDANT.LINING STRAP CLOSER Work Phone: [facility] 10-26-2021 07:33-0400 Respiratory rate 16 /min Lennox Chamberlain SURGERY ATTENDANT.LINING STRAP CLOSER Work Phone: [facility] 10-26-2021 07:33-0400 SaO2% (BldA) [Mass fraction] 98 % Lennox Chamberlain SURGERY ATTENDANT.LINING STRAP CLOSER Work Phone: [facility] 10-26-2021 07:33-0400 Systolic blood pressure 126 mm[Hg] Lennox Chamberlain SURGERY ATTENDANT.LINING STRAP CLOSER Work Phone: [facility] Encounters Encounter Date Encounter Type Care Provider Facility Start: 08-26-2024 End: 08-26-2024 Office outpatient visit 15 minutes Haja Coley MD Work Phone: [facility] Comment on above: Nausea and vomiting, unspecified vomiting type (Primary Dx) Start: 08-26-2024 End: 08-26-2024 ambulatory ROCKY CHI CAIN Facility:[facility] Start: 08-10-2024 End: 08-10-2024 Patient encounter procedure Christ GOVEA [facility] Work Phone: Start: 08-10-2024 End: 08-10-2024 ambulatory Christ GOVEA [facility] Start: 06-11-2024 End: 06-11-[address] Michelle Marroquin MD -[facility] Work Phone: Start: 06-11-2024 End: 06-11-[address] Michelle Marroquin MD [facility] Start: 06-11-2024 End: 06-11-[address] Michelle Marroquin MD Work Phone: [facility] Work Phone: Start: 06-11-2024 End: 06-11-2024 ambulatory Michelle Marroquin Facility:[facility] Start: 05-18-2024 End: 05-18-2024 Patient encounter procedure Christ GOVE[facility] Work Phone: Start: 05-18-2024 End: 05-18-2024 ambulatory Christ GOVEA Facility:[facility] Start: 04-21-2024 End: 04-21-[address] Michelle Marroquin MD -[facility] Work Phone: Start: 04-21-2024 End: 04-21-2024 ambulatory [facility] Facility:[facility] Start: 04-21-2024 End: 04-21-2024 ambulatory [facility] Facility:[facility] Start: 04-09-2024 End: 04-09-2024 Emergency department patient visit Dr. Gregory Coleman MD -Emergency Department Work Phone: Start: 12-21-2023 End: 12-21-2023 Emergency department patient visit [facility] Facility:[facility] Start: 12-12-2023 End: 12-12-2023 ambulatory John GOVEA Facility:[facility] Start: 10-08-2023 End: 10-08-2023 ambulatory Panfilo Mary Ann Facility:[facility] Start: 10-08-2023 End: 10-08-2023 ambulatory John GOVEA Facility:[facility] Start: 09-23-2023 End: 09-23-2023 Emergency department patient visit [facility] Facility:[facility] Start: 07-31-[address] Armaan Marroquin MD Work Phone: [facility] Start: 07-21-2023 End: 07-21-2023 Emergency department patient visit [facility]-Emergency Department Work Phone: Start: 06-19-2023 End: 06-19-2023 ambulatory [facility] Work Phone: Start: 06-19-2023 End: 06-19-2023 Patient encounter procedure [facility]-Laboratory, Phy Office 3rd Flr Start: 06-13-2023 End: 06-13-2023 Emergency department patient visit [facility]-Emergency Department Work Phone: Start: 02-05-2023 End: 02-05-2023 ambulatory [facility] Work Phone: Start: 02-05-2023 End: 02-05-2023 Patient encounter procedure [facility]-Pulmonary Services/Neurology Work Phone: Start: 01-01-2023 End: 01-01-2023 ambulatory [facility] Work Phone: Start: 01-01-2023 End: 01-01-2023 Patient encounter procedure [facility]-Radiology, [facility] Work Phone: Start: 12-12-2022 End: 12-12-2022 [facility] Start: 12-11-2022 End: 12-11-2022 Patient encounter procedure [facility]-Laboratory, Phy Office 3rd Flr Start: 12-03-2022 End: 12-03-2022 ambulatory [facility] Work Phone: Start: 12-03-2022 End: 12-03-2022 [facility] Start: 08-15-2022 End: 08-15-2022 Emergency department patient visit [facility]-Emergency Department Work Phone: Start: 05-30-2022 End: 05-30-2022 ambulatory [facility] Work Phone: Start: 05-30-2022 End: 05-30-2022 [facility] Start: 03-29-2022 End: 03-29-[address] Rocky Barlow Work Phone: [facility] Work Phone: Start: 03-29-2022 End: 03-29-[address] Rocky Barlow Work Phone: [facility]-Pulmonary Services/Neurology Start: 03-21-2022 End: 03-21-2022 Emergency department patient visit Dr. Rocky Barlow Work Phone: [facility]-Emergency Department Start: 01-21-2022 End: 01-21-[address] Rocky Barlow Work Phone: [facility] Start: 01-03-2022 Non-patient / Non-visit Dr. Jong Barlow Work Phone: [facility] Start: 01-02-2022 Non-patient / Non-visit Dr. Jong Barlow Work Phone: [facility] Start: 01-02-2022 End: 01-03-2022 Evaluation and management of inpatient Dr. Rocky Barlow Work Phone: [facility]-Medical Surgical 3 Start: 01-02-2022 End: 01-03-[address] Rocky Barlow Work Phone: [facility] Work Phone: Start: 12-31-2021 End: 12-31-[address] Rocky Barlow Work Phone: [facility] Work Phone: Start: 12-31-2021 End: 12-31-[address] Rocky Barlow Work Phone: [facility]-Radiology, [facility] Start: 11-30-2021 End: 11-30-2021 ambulatory [facility] Work Phone: Start: 11-30-2021 End: 11-30-2021 Patient encounter procedure [facility]-Pulmonary Services/Neurology Start: 11-28-2021 End: 11-28-2021 ambulatory [facility] Work Phone: Start: 11-28-2021 End: 11-28-2021 Patient encounter procedure [facility]-Laboratory, Phy Office 3rd Flr Start: 10-27-2021 Telephone encounter Melba Campoverde APRN.LINING STRAP CLOSER Work Phone: [facility] Comment on above: Results, Lab; Result s Results Start: 10-26-2021 End: 10-26-2021 Patient encounter procedure Kathya Eric APRN.CNM Work Phone: OB/Gynecology Comment on above: Vaginal itching (Simona ahsan Dx); Vaginal burning; Vaginal odor; Vaginal discharge Start: 10-26-2021 End: 10-26-2021 Patient encounter procedure Lennox Chamberlain MARTHA.LINING STRAP CLOSER Work Phone: [facility] Comment on above: Burning with urinati on (Primary Dx); Wheeze; Chronic cough Start: 07-27-2021 End: 07-27-2021 Patient encounter procedure [facility]-Laboratory, Specimen Start: 07-26-2021 End: 07-26-2021 Patient encounter procedure [facility]-Laboratory, Phy Office 3rd Flr Start: 07-09-2021 End: 07-09-2021 Patient encounter procedure [facility]-Radiology, [facility] Start: 06-06-2021 End: 06-06-2021 Patient encounter procedure [facility]-Laboratory Start: 05-30-2021 End: 05-30-2021 Patient encounter procedure [facility], [facility] Start: 04-25-2021 End: 04-25-2021 Patient encounter procedure [facility], [facility] Start: 01-12-2018 End: 01-12-2018 Patient encounter procedure [facility] Start: 12-09-2017 Patient encounter procedure [facility] Start: 11-07-2016 Evaluation and management of inpatient Yang Abrams Facility:[facility] Start: 10-29-2016 Ambulatory Yang Abrams Facility: [facility] Procedures Date Procedure Procedure Detail Performing Clinician Start: 06-11-2024 Vitamin D, 25-hydrox y measurement Dr. Michelle Marroquin MD Work Phone: Comment on above: Vitamin D StatusDefi ciency: <20 ng/mL (50nmol/L)Insufficiency: 20-30 ng/mL (50-75 nmol/L)Sufficiency: 30-100 ng/mL (75-250 nmol/L)Toxicity: >100 ng/mL (>250 nmol/L) Start: 04-21-2024 Measurement of renal function Dr. Michelle Marroquin MD Work Phone: Comment on above: GFR Calc Start: 04-21-2024 SARS-CoV-2, Influenz a & RSV (PCR) Dr. Mcihelle Marroquin MD Work Phone: Start: 04-09-2024 SARS-CoV-2, Influenz a & RSV (PCR) Dr. Michelle Marroquin MD Work Phone: Start: 04-09-2024 Streptococcus pyogen es rRNA assay Dr. Michelle Marroquin MD Work Phone: Start: 07-21-2023 Plain chest X-ray Start: 06-13-2023 Diagnostic radiograp hy of abdomen Start: 02-05-2023 Coronavirus COVID-19 PCR Start: 02-05-2023 Influenza Types A,B Direct FA (DENY) Start: 02-05-2023 Respiratory syncytia l virus antigen assay Start: 01-01-2023 [employer] Start: 12-12-2022 Coronavirus COVID-19 PCR Start: 12-12-2022 Influenza Types A,B Direct FA (DENY) Start: 12-12-2022 Respiratory syncytia l virus antigen assay Start: 12-11-2022 Plain chest X-ray Start: 08-15-2022 Plain chest X-ray Start: 08-15-2022 Bacteria identified in Blood by Culture Start: 08-15-2022 SARS-CoV-2 & FLU Ant igen (Rapid) Start: 03-21-2022 Plain chest X-ray Dr. Charlene Barlow Work Phone: Start: 01-02-2022 Plain chest X-ray Dr. Charlene Barlow Work Phone: Start: 12-31-2021 Plain chest X-ray Dr. Charlene Barlow Work Phone: Start: 10-26-2021 BACTERIAL VAGINOSIS AMPLIFICATION Kathya Eric SURGERY ATTENDANT.CNM Work Phone: Start: 10-26-2021 Iadna trichomonas vaginalis amplified probe tech Kathya Eric MARTHA.CNM Work Phone: Start: 10-26-2021 Urnls dip stick/tabl et rgnt auto w/o microscopy Lennox Chamberlain APRN.LINING STRAP CLOSER Work Phone: Start: 07-27-2021 Urine culture Start: 07-09-2021 X-ray of both feet Start: 05-30-2021 X-ray of both feet Start: 04-25-2021 X-ray of chest posteroanterior view Start: 03-17-2019 H/O: surgery S/P deep brain stimulator placement Lennox Chamberlain APRN.LINING STRAP CLOSER Work Phone: Start: 10-28-2012 Lipid 1996 panel - S radha or Plasma Haja Coley MD Work Phone: Start: 09-03-2012 Mammography Lennox bhatt APRN.LINING STRAP CLOSER Work Phone: Influenza Types A,B Direct FA (DENY) Influenza Types A,B Direct FA (DENY) Dr. Rocky Barlow Work Phone: Influenza Types A,B Direct FA (DENY) Dr. Rocky Barlow Work Phone: Respiratory syncytia l virus antigen assay Respiratory syncytia l virus antigen assay Dr. Rocky Barlow Work Phone: Respiratory syncytia l virus antigen assay Dr. Rocky Barlow Work Phone: SARS-CoV-2 & FLU Ant igen (Rapid) Dr. Rocky Barlow Work Phone: Plan of Treatment Date Care Activity Detail Author Start: 04-08-2025 Screening for malign ant neoplasm of colon [facility] Start: 04-09-2024 [facility] Start: 03-10-2024 Medicare Advantage A nnual Wellness Visit Medicare Advantage Annual Wellness Visit [facility] Start: 11-09-2023 Covid-19 Vaccine ( season) Covid-19 Vaccine () [facility] Start: 07-21-2023 [facility] Start: 06-13-2023 [facility] Start: 01-03-2022 Patient discharge [facility] Start: 01-02-2022 Following clinical pathway protocol [facility] Start: 01-02-2022 Assessment of risk o f venous thromboembolism [facility] Start: 01-02-2022 Inhalation therapy procedure [facility] Start: 01-02-2022 Insertion of cathete r into peripheral vein [facility] Start: 01-02-2022 Oxygen therapy [facility] Start: 01-02-2022 Providing care accor ding to standard [facility] Start: 01-02-2022 Provision of activit y privileges [facility] Start: 01-02-2022 Referral to occupati onal therapist [facility] Start: 01-02-2022 Referral to service [facility] Start: 01-02-2022 Respiratory secretio n precautions [facility] Start: 01-02-2022 [facility] Start: 01-02-2022 Admission procedure [facility] Start: 11-08-2021 Influenza vaccination INFLUENZA (#1) [facility] Start: 03-12-2021 COVID-19 VACCINE (2 - Moderna series) COVID-19 VACCINE (2 - Moderna series) [facility] Start: 09-13-2019 PAP TESTING PAP TESTING [facility] Start: 10-28-2017 Lipid panel Lipid Screening [facility] Start: 10-28-2017 LIPID SCREEN LIPID SCREEN [facility] Start: 09-12-2017 Screening for malign ant neoplasm of cervix Cervical Cancer Screening [facility] Start: 09-03-2013 Mammography MAMMOGRAM [facility] Start: 09-03-2013 Screening for malign ant neoplasm of breast Mammogram Screening [facility] Start: 01-23-2013 DIABETES SCREEN DIABETES SCREEN [facility] Start: 01-23-2013 Diabetes Screening Diabetes Screenin g [facility] Start: 07-05-2011 Pneumococcal Vaccine : 50+ (1 of 1 - PCV) Pneumococcal Vaccine: 50+ (1 of 1 - PCV) [facility] Start: 07-05-2011 SHINGRIX VACCINE (1 of 2) GRAY GRIX VACCINE (1 of 2) [facility] Start: 2006 COLOGUARD (FIT-DNA) COLOGUARD (FIT-D NA) [facility] Start: 2006 Colonoscopy COLONOSCOPY [facility] Start: 2006 COLORECTAL CANCER SCREENING COLORECTAL CANCER SCREENING [facility] Start: [address] COLONOGRAPHY [facility] Start: 2006 FECAL OCCULT BLOOD FECAL OCCULT BLOO D [facility] Start: 2006 Screening for malign ant neoplasm of colon [facility] Start: 2006 SIGMOIDOSCOPY SIGMOIDOSCOPY [facility] Start: 12-10-1995 Urine microalbumin profile [facility] Start: 07-05-1991 HPV TESTING HPV TESTING [facility] Start: 07-05-1979 ANNUAL PCP TEAM COMPRESSOR STATION ENGINEER TRESSA DISEASE VISIT ANNUAL PCP TEAM CHRONIC DISEASE VISIT [facility] Start: 07-05-1979 Anxiety Screening Anxiety Screening [facility] Start: 07-05-1979 HEPATITIS C SCREENING HEPATITIS C [facility] Start: 07-05-1979 Hepatitis C screening Hepatitis C [facility] Start: 07-05-1979 HIV SCREENING HIV SCREENING [facility] Start: 07-05-1979 HIV screening HIV Screening [facility] Bacteria identified in Urine by Culture URINE CULTURE Microbiology Routine Burning with urination Ordered: 10/26/2021 [facility] Work Phone: Comment on above: Ordered: 10/26/2021 Influenza virus A an d B RNA and SARS-CoV-2 (COVID-19) N gene panel - Respiratory specimen by WILLIAM with probe detection COVID WITH FLUA+B, ROUTINE Microbiology Routine Wheeze Chronic cough Ordered: 10/26/2021 [facility] Work Phone: Comment on above: Ordered: 10/26/2021 Patient Education [facility] Work Phone: Patient referral [facility] Work Phone: XR Chest PA and Lateral [facility] Immunizations Immunization Date Immunization Notes Care Provider Areli strange 12-12-2023 influenza, injectabl e, madin suraj canine kidney, preservative free Dr. Michelle Marroquin MD Work Phone: [facility] 11-27-2021 Influenza, high dose seasonal Dr. Michelle Marroquin MD Work Phone: [facility] 11-27-2021 influenza, high dose seasonal, preservative-free Dr. Rocyk Barlow Work Phone: [facility] 03-10-2021 Covid (Moderna) Dr. Rocky Barlow Work Phone: [facility] 02-12-2021 Covid (Moderna) Dr. Rocky Barlow Work Phone: [facility] 12-27-2016 Influenza virus vaccine [facility] 10-16-2010 tuberculin skin test ; purified protein derivative solution, intradermal Haja Coley MD Work Phone: [facility] 01-16-2010 influenza virus vaccine, unspecified formulation Lennox Bulmaro SURGERY ATTENDANT.LINING STRAP CLOSER Work Phone: [facility] Work Phone: 03-29-2009 novel [id number], all formulations Lennox Bulmaro SURGERY ATTENDANT.LINING STRAP CLOSER Work Phone: [facility] Work Phone: 12-29-2008 influenza virus vaccine, unspecified formulation Lennox Bulmaro SURGERY ATTENDANT.LINING STRAP CLOSER Work Phone: [facility] Work Phone: 01-14-2008 influenza virus vaccine, unspecified formulation Lennox Bulmaro SURGERY ATTENDANT.LINING STRAP CLOSER Work Phone: [facility] Work Phone: 01-13-2007 influenza virus vaccine, unspecified formulation Lennox Bulmaro SURGERY ATTENDANT.LINING STRAP CLOSER Work Phone: [facility] Work Phone: 01-08-2003 influenza virus vaccine, whole virus Lennox Chamberlain APRN.LINING STRAP CLOSER Work Phone: [facility] Work Phone: 12-09-1995 tetanus and diphther ia toxoids, adsorbed, preservative free, for adult use (2 Lf of tetanus toxoid and 2 Lf of diphtheria toxoid) Lennox Chamberlain APRN.LINING STRAP CLOSER Work Phone: [facility] Work Phone: Payers Date Payer Category Payer Medicare (Managed Care) CABRERA ARANA [facility] HMO [id number] 2023 Self-pay [id number] 2023 Unknown [id number] 2017 Medicaid [id number] 2017 Medicaid [id number] 1981 Medicare [id number] 1981 Medicare [id number] 1981 Medicare MEDICARE MEDICAR E A AND B [id number] 1981-Present [phone] [place] [place] [address] Medicare [id number] Unknown [id number] Unknown [id number] 462 Unknown [id number] 462 Unknown [id number] 462 Unknown [id number] 462 Unknown [id number] 462 Unknown [id number] 462 Unknown [id number] 462 Unknown [id number] 462 Unknown [id number] 462 Unknown [id number] 462 Unknown [id number] 462 Social History Date Type Detail Facility Start: 02-05-2021 End: 07-21-2023 Tobacco smoking status [facility] Unknown if ever smoked [facility] Start: 01-08-2019 Non-smoker [facility] Start: 1960 Sex Assigned At Female [facility] Start: 08-30-2010 End: 08-10-2024 Tobacco smoking status IDIS Never smoked tobacco [facility] Work Phone: Start: 08-30-2010 Tobacco use and exposure Smokeless tobacco non-user [facility] Work Phone: Start: 05-22-2020 Alcohol intake Current non-dr dobby looms pegger of alcohol (finding) [facility] Start: 1960 Sex Assigned At Not on file [facility] Start: 10-16-2021 End: 10-26-2021 Exposure to SARS-CoV-2 (event) Not sure [facility] Work Phone: Start: 06-15-2024 Sex Female (finding) [facility] Start: 05-22-2020 End: 04-05-2022 History of Social function [facility] Start: 05-22-2020 End: 04-05-2022 Tobacco use panel [facility] Work Phone: National Score (1-100), lower number is lower risk 68 [facility] Medical Equipment Procedure Code Equipment Code Equipment Origin al Text Equipment Identifier Dates Lens Iol 0d +24 Manuel Uv Abs - [id number] Start: 03-22-2019 Lens Acrysof Ultrasert +24.5 Diopter Acrylic Iol 1 Piece Foldable Uv Blue - [id number] Start: 11-22-2019 Comment on above: Description: -1.05 Goals Date Patient Goal Desired Activity /State Functional Status Date Assessment Result Facility 01-03-2022 Functional status Bedrest [facility] Work Phone: 09-30-2014 Are you deaf, or do you have serious difficulty hearing No 09/30/2014 9:29 AM Lakshmi Moreno RN No [facility] Work Phone: 09-30-2014 Are you blind, or do you have serious difficulty seeing, even when wearing glasses No 09/30/2014 9:29 AM Lakshmi Moreno RN No [facility] 09-30-2014 Do you have serious difficulty walking or climbing stairs Yes 09/30/2014 9:29 AM Lakshmi Moreno RN Yes [facility] 09-30-2014 Do you have difficul ty dressing or bathing Yes 09/30/2014 9:29 AM Lakshmi Moreno RN Yes [facility] 09-30-2014 Because of a physica l, mental, or emotional condition, do you have difficulty doing errands alone such as visiting a physician's office or shopping Yes 09/30/2014 9:29 AM Lakshmi Moreno RN Yes [facility] Mental Status Date Assessment Result Facility 06-13-2023 Cognitive function Level Of Cons ciousness Awake [facility] Work Phone: 01-03-2022 Cognitive function Appropriate [facility] Work Phone: 09-12-2014 Because of a physica l, mental, or emotional condition, do you have serious difficulty concentrating, remembering, or making decisions No 09/12/2014 8:23 AM EDT April Raza MA No [facility] Clinical Notes 10-26-2021 to 08-26-2024 Haja Coley MD - 08/26/2024 6:40 PM EDT Note Date & Type Note Facility 08-26-2024 Note HNO ID: [id number] Author: HAJA COLEY MD Service: ? Author Type: Physician Type: Progress Notes Filed: 08/26/2024 18:45 Note Text: MAHOGANY ESPINO Subjective Tonya Fletcher is a 64 year old female. Patient presents with: Nausea AND Vomiting: Fever started today Patient presents with caregiver for vomiting today. She also had a headache. She currently denies any symptoms including nausea. Earlier today she pointed to her chest indicating shortness of breath which improved with nebulizer treatment. She had a couple weeks of diarrhea which resolved 1-1/2 weeks ago. It has not returned today. She had nasal congestion and rhinorrhea earlier in the week. Denies cough, sore throat, current nausea, diarrhea, urinary frequency, urgency, or hematuria. Review of Systems Objective BP 130/78 Pulse 82 Temp 36 ?C (96.8 ?F) Resp 21 LMP (LMP Unknown) SpO2 94% Physical Exam Constitutional: General: She is not in acute distress. Comments: Mostly nonverbal, answers yes or no questions appropriately. Sitting in motorized wheelchair. HENT: Right Ear: There is impacted cerumen. Left Ear: There is impacted cerumen. Nose: No congestion or rhinorrhea. Mouth/Throat: Mouth: Mucous membranes are moist. Eyes: Extraocular Movements: Extraocular movements intact. Pupils: Pupils are equal, round, and reactive to light. Cardiovascular: Rate and Rhythm: Normal rate and regular rhythm. Heart sounds: No murmur heard. Pulmonary: Effort: No respiratory distress. Breath sounds: No wheezing, rhonchi or rales. Abdominal: Palpations: There is no mass. Tenderness: There is no abdominal tenderness. Musculoskeletal: Cervical back: Neck supple. Neurological: Mental Status: She is alert. Comments: Strapped in mechanical wheelchair. Spastic movement of upper extremities {ASSESSMENT/PLAN: 1. Nausea and vomiting, unspecified vomiting type - ICD9: 787.01, ICD10: R11.2 Currently asymptomatic. Exam is benign. Continue to monitor symptoms. Haja Coley MD Differential Diagnoses - Early gastroenteritis or viral illness - Reflux - Acute abdomen is less likely for the following reason(s): Benign exam and vitals Procedures [facility] 08-26-2024 History of Present illness Narrative [facility] Subjective Tonya Fletcher is a 64 year old female. Patient presents with: Nausea & Vomiting: Fever started today Patient presents with caregiver for vomiting today. She also had a headache. She currently denies any symptoms including nausea. Earlier today she pointed to her chest indicating shortness of breath which improved with nebulizer treatment. She had a couple weeks of diarrhea which resolved 1-1/2 weeks ago. It has not returned today. She had nasal congestion and rhinorrhea earlier in the week. Denies cough, sore throat, current nausea, diarrhea, urinary frequency, urgency, or hematuria. Review of Systems Objective BP 130/78 Pulse 82 Temp 36 C (96.8 F) Resp 21 LMP (LMP Unknown) SpO2 94% Physical Exam Constitutional: General: She is not in acute distress. Comments: Mostly nonverbal, answers yes or no questions appropriately. Sitting in motorized wheelchair. HENT: Right Ear: There is impacted cerumen. Left Ear: There is impacted cerumen. Nose: No congestion or rhinorrhea. Mouth/Throat: Mouth: Mucous membranes are moist. Eyes: Extraocular Movements: Extraocular movements intact. Pupils: Pupils are equal, round, and reactive to light. Cardiovascular: Rate and Rhythm: Normal rate and regular rhythm. Heart sounds: No murmur heard. Pulmonary: Effort: No respiratory distress. Breath sounds: No wheezing, rhonchi or rales. Abdominal: Palpations: There is no mass. Tenderness: There is no abdominal tenderness. Musculoskeletal: Cervical back: Neck supple. Neurological: Mental Status: She is alert. Comments: Strapped in mechanical wheelchair. Spastic movement of upper extremities {ASSESSMENT/PLAN: 1. Nausea and vomiting, unspecified vomiting type - ICD9: 787.01, ICD10: R11.2 Currently asymptomatic. Exam is benign. Continue to monitor symptoms. Haja Coley MD Differential Diagnoses - Early gastroenteritis or viral illness - Reflux - Acute abdomen is less likely for the following reason(s): Benign exam and vitals Procedures documented in this encounter [facility] 04-21-2024 Evaluation note Diagnosis Onset Date Resolution History of aspiration pneumonia acute April 21 1:47pm Sore throat acute April 1:47pm URI (upper respiratory infection) acute April 21 1:47pm Health care maintenance acute A pril 2024 12:50pm Anxiety and depression chronic Ap ril 2024 12:50pm Cerebral palsy chronic June 11, 2024 12:50pm History of pulmonary embolism chronic June 11, 2024 12:50pm Hypothyroidism chronic June 11, 2024 12:50pm Insomnia chronic June 11 12:50pm Intellectual developmental disorder, severe chronic June 11, 2024 12:50pm Urinary incontinence chronic Apri l 2024 12:50pm [facility] Work Phone: 1(923) 312-990704-05-2024 Discharge summary Author Haresh Curtis [facility] June 13, 2023 8:23am Note Date/Time June 13, 2023 6:33 am [facility] Medical Records Department [address] [place] [address] Emergency Department Summary 06/13/23 MR#: [id number] Acct: [id number] Name: TONYA FLETCHER Rep #:[id number] 18 : 1960 62 From: Haresh Curtis DO PCP: Dr. Rocky Barlow MD Status:REG E R Location: ED HPI History of Present Illness Chief Complaint: General Illness Informant: patient and legal guardian Narrative Narrative: Patient is a 62-year-old female with past medical history of cerebral palsy as well as previous pulmonary embolism currently on Xarelto hypothyroidism and hyperlipidemia. Plant Wrapper reports that she awoke around 2:30/2:45 in the morning to sounds of retching and the patient had 3 bouts of vomiting. Plant Wrapper states that the vomit was whenever was in her stomach and then turned to bile and was not dark or bloody. Reportedly the patient has a remote historyof bowel obstruction and the piano builder denies any recent diarrhea and therefore was concerned for this and called EMS to bring her in for evaluation. The patient cannot offer any further history based on her cerebral palsy Please note piano builder states that she and her other piano builder were both sick with similar symptoms just last week. PFSH [facility] Medical History Allergic rhinitis Barretts esophagus Cerebral palsy Depression Fecal impaction Gastroenteritis GERD (gastroesophageal reflux disease) Hyperlipidemia Hypothyroidism Insomnia metal gavi rt leg neurostimulater Pacemaker Pulmonary embolism URI (upper respiratory infection) Vitamin D deficiency Home Medications loratadine 10 mg tablet 10 mg PO DAILY@0800 ALLERGIES 09/10/14 [History Last Taken 01/02/22] mirtazapine 7.5 mg tablet 7.5 mg PO QHS@1999 DEPRESSION 05/19/17 [History Last Taken 01/01/22] azelastine 0.05 % eye drops 0.05 drp EACH EYE BID@0800,1999 DRY EYES 08/08/18 [History Last Taken 01/02/22] apixaban 5 mg tablet 5 mg PO BID BLOOD THINNER 11/23/18 [History Last Taken 01/02/22] doxycycline monohydrate 100 mg capsule 100 mg PO BID #20 CAPSULES 02/03/21 [Rx Last Taken Unknown] ascorbic acid (vitamin C) 500 mg tablet 500 mg PO DAILY@0800 SUPPLEMENT 01/02/22[History Last Taken 01/02/22] carboxymethylcellulose sodium 0.5 % eye drops (Refresh Tears) 1 drp EACH EYE TID1 [History Last Taken 01/02/22] cholecalciferol (vitamin D3) 25 mcg (1,000 unit) chewable tablet (Vitamin D3) 25mcg PO DAILY@0800 SUPPLEMENT 01/02/22 [History Last Taken 01/02/22] codeine 10 mg-guaifenesin 100 mg/5 mL oral liquid See Rx Instructions .Route .COMPLEX 01/02/22 [History Last Taken Unknown] docusate sodium 100 mg capsule 100 mg PO Q2D@1600 STOOL 01/02/22 [History Last Taken 01/01/22] ferrous gluconate 324 mg (38 mg iron) tablet 324 mg PO DAILY@0800 SUPPLEMENT 01/02/22 [History Last Taken 01/02/22] fluoxetine 40 mg capsule 40 mg PO DAILY@0800 DEPRESSION 01/02/22 [History Last Taken 01/02/22] levothyroxine 50 mcg tablet 50 mcg PO DAILY@0600 THYROID 01/02/22 [History Last Taken 01/02/22] melatonin 3 mg tablet 4.5 mg PO QHS SLEEP 01/02/22 [History Last Taken 01/01/22] omeprazole 40 mg capsule,delayed release 40 mg PO DAILY@0700 GERD 01/02/22 [History Last Taken 01/02/22] prednisone 10 mg tablet See Rx Instructions .Route .COMPLEX 01/02/22 [History Last Taken Unknown] ipratropium 0.5 mg-albuterol 3 mg (2.5 mg base)/3 mL nebulization soln 3 ml inhalation Q6H PRN shortness of breath or wheezing #90 mL 01/03/22 [Rx Last Taken Unknown] prednisone 20 mg tablet 20 mg PO BID #10 tabs 08/15/22 [Rx Last Taken Unknown] ondansetron 4 mg disintegrating tablet 4 mg PO TID PRN nausea and vomiting #21 tabs 06/13/23 [Rx Last Taken Unknown] Allergy/AdvReac Type Severity Reaction Status Date / Time amoxicillin trihydrate AdvReac Unknown Verified 06/13/23 05:54 [From Augmentin] potassium clavulanate AdvReac Unknown Verified 06/13/23 05:54 [From Augmentin] Surgical History Hx of cataract removal with insertion of prosthetic lens Social History Smoking Status: Never smoker substance use type: does not use ROS ROS ED ROS Narrative Please note review of systems was obtained from piano builder Constitutional Constitutional ED: Denies fever(s) ENT ENT ED: Denies rhinorrhea Respiratory/Chest Respiratory/Chest: Denies cough Gastrointestinal Gastrointestinal: Reports nausea and vomiting; Denies abdominal pain or diarrhea Integumentary Denies rash Hematologic/Lymphatic Hematologic/Lymphatic: Reports easy bleeding and easy bruising EXAM Physical Exam Const Vital Signs: 06/13/23 05:51 06/13/23 05:57 06/13/23 07:51 Temperature 97.8 F 98.0 F Temperature Source Temporal Temporal Pulse Rate 95 92 78 Respiratory Rate 19 H 18 16 Blood Pressure 125/9 H 111/56 L 120/81 H Blood Pressure Mean 47 74 94 Pulse Ox 98 96 94 Oxygen Delivery Method Room Air Room Air Room Air 06/13/23 08:00 Temperature 97.8 F Temperature Source Temporal Pulse Rate 88 Respiratory Rate 18 Blood Pressure 120/81 H Blood Pressure Mean 94 Pulse Ox 94 Oxygen Delivery Method Room Air Positive well nourished and well developed General Appearance ED: well developed; Negative for pallor HEENT HEENT Narrative: Mucous membranes are slightly dry and tacky No secondary changes to suggest infection in the posterior pharynx No airway edema or compromise Eyes PERRL and EOMs intact bilaterally General Eye ED: Negative for scleral icterus Neck supple Neck Narrative: No nuchal rigidity or meningeal signs Chest Wall palpation of chest normal Resp normal respiratory effort and clear to auscultation bilaterally Resp Narrative: Breath sounds are diminished throughout but overall clear to auscultation without signs of respiratory distress Cardio regular rate and regular rhythm GI non-tender, non-distended and no masses GI Narrative: Abdomen is soft nontender and nondistended with hyperactive bowel sounds. No increased tympany noted No pulsatile mass Auscultation: hyperactive bowel sounds Palpation: soft Extremity Extremity Narrative: Patient has chronic contractures secondary to history of cerebral palsy but no signs of trauma or infection Neuro Neuro Narrative: Patient is at her baseline mental status with history of cerebral palsy without new or acute finding Psych mental status grossly normal Skin no rashes or lesions noted General Skin Exam: Negative for jaundice or pallor MDM MDM MDM Narrative Medical decision making narrative: Patient arrived to the ER with stable vitals and a soft nonsurgical abdomen. Caretakers reported 3 bouts of vomiting and then stated they also had similar symptoms roughly 5 days ago. Differential diagnosis is for viral infection suchas [place] virus versus rotavirus versus electrolyte abnormality versus acute kidney injury versus small bowel obstruction. Basic labs were obtained which revealed no clinically significant findings. The patient's exam does not suggest SBO but as she does have a history of this and also vomited multiple times there is concern for aspiration so acute abdominal series with 1 view chest was obtained. This revealed no obvious signs of obstruction or aspirationwhich correlates with her vital signs and physical exam. Patient was hydrated 1L of normal saline and given Zofran and had no further bouts of vomiting. On reevaluation her abdomen remains soft and nonsurgical. 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 Labs: Laboratory Results - last 24 hr 06/13/23 06:12 WBC 9.0 RBC 4.62 Hgb 14.3 Hct 43.6 MCV 94.4 MCH 31.0 MCHC 32.8 RDW Std Deviation 47.4 H RDW Coeff of Handy 13.5 Plt Count 321 MPV 10.5 Immature Gran % (Auto) 0.200 Neut % (Auto) 80.0 H Lymph % (Auto) 12.4 L [place] % (Auto) 4.6 Eos % (Auto) 2.5 Baso % (Auto) 0.3 Absolute Neuts (auto) 7.2 Absolute Lymphs (auto) 1.11 Nucleated RBC % 0 Sodium 142 Potassium 3.9 Chloride 105 Carbon Dioxide 32.0 Anion Gap 5 BUN 12 Creatinine 0.59 Estim Creat Clear Calc 85.58 Est GFR (MDRD) Af Amer 134 Est GFR (MDRD) Non-Af 111 BUN/Creatinine Ratio 20.5 H Glucose 109 H Calcium 9.3 Total Bilirubin 0.60 Direct Bilirubin 0.13 AST 11 L ALT 14 Alkaline Phosphatase 104 Total Protein 8.0 Albumin 3.9 Globulin 4.1 Lipase 27 Radiography Diagnostic Testing: Clinical Impression(s) from Imaging Studies Acute Abdomen Series 06/13/23 06:08 IMPRESSION: Negative chest and abdominal series. 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, Cerebral palsy Instructions: ED Gastroenteritis, Viral (Adult), ED Vomiting (Adult) Prescriptions: New ondansetron 4 mg tablet,disintegrating 4 mg PO TID PRN (Reason: nausea and vomiting) Qty: 21 0RF No Action loratadine 10 MG tablet 10 mg PO DAILY@0800 mirtazapine 7.5 MG tablet 7.5 mg PO QHS@2000 azelastine 6 ML drops 0.05 drp EACH EYE BID@0800,2000 Patient Comments: PLACE (1) DROP INTO EACH EYE TWICE DAILY NEEDEDFOR DRY EYE apixaban 5 MG tablet 5 mg PO BID doxycycline monohydrate 100 MG capsule 100 mg PO BID Qty: 20 0RF fluoxetine 40 mg capsule 40 mg PO DAILY@0800 melatonin 3 mg Tablet 4.5 mg PO QHS omeprazole 40 mg Capsule,Delayed Release(Dr/Ec) 40 mg PO DAILY@0700 levothyroxine 50 mcg tablet 50 mcg PO DAILY@0600 docusate sodium 100 mg Capsule 100 mg PO Q2D@1600 cholecalciferol (vitamin D3) [Vitamin D3] 25 mcg (1,000 unit) Tablet,Chewable 25 mcg PO DAILY@0800 ascorbic acid (vitamin C) 500 MG tablet 500 mg PO DAILY@0800 ferrous gluconate 324 MG tablet 324 mg PO DAILY@0800 prednisone 10 mg tablet See Rx Instructions .ROUTE .COMPLEX Rx Instructions: TAKE 3 TABLETS BY MOUTH ONCE DAILY FOR 2 DAYS THEN TAKE 2 TABLETS BY MOUTH ONCE DAILY FOR 2 DAYS THEN TAKE 1 TABLET BY MOUTH ONCE DAILY FOR 2 DAYS carboxymethylcellulose sodium [Refresh Tears] 0.5 % Drops 1 drp EACH EYE TID codeine-guaifenesin 10-100 mg/5 mL liquid See Rx Instructions .ROUTE .COMPLEX Rx Instructions: TAKE 5 MLS BY MOUTH 6 TIMES A DAY NEEDED FOR COUGH ipratropium-albuterol 0.5 mg-3 mg(2.5 mg base)/3 mL solution for nebulization 3 ml inhalation Q6H PRN (Reason: shortness of breath or wheezing) Qty: 90 0RF prednisone 20 mg tablet 20 mg PO BID Qty: 10 0RF Primary Care Provider: Rocky Barlow Chi Referrals: Rocky Barlow Chi, MD [Primary Care Provider] - Activity Restrictions/Additional Instructions: Your workup today does not show any signs of aspiration or small bowel obstruction. Symptoms are most likely related to a viral stomach infection based on your negative workup and exposure. Use the Zofran as directed to help control any further bouts of nausea and vomiting and return to the ER should youhave any further concerns What to do if you have Problems For any increased pain, shortness of breath, bleeding, nausea or vomiting, chestpain, or any unexpected problems, contact your Primary Care Provider. Call [facility] ([phone]) or report to the closest Emergency Room. Call 911 if necessary. 06/13/23822 <Electronically signed by Haresh Curtis DO> Cosigner Signature (if applicable): CC: Dr. Rocky Barlow MD ~ Signed [facility] Work Phone: [phone] 248-245110-25-[address] [facility] 10-29-2021 Miscellaneous Notes* Telephone Encounter - Mary Alice Sumner RN - 10/29/2021 10:43 AM EDT Erica Askew with [facility] notified. Patient did already take diflucan and symptoms have improved. Mary Alice Sumner RN * Telephone Encounter - Mary Alice Sumner RN - 10/29/2021 9:49 AM EDT Left voicemail on [facility] to call office. Mary Alice Sumner RN * Telephone Encounter - Kathya Eric APRN.CNM - 10/27/2021 12:04 PM EDT Please notify patient that results are negative. She did receive 1 dose of Diflucan. If any furtherissues or concerns to please let us know and can decide on another treatment plan for symptoms.Kathya Eric APRN.CNM documented in this encounterW[facility]-20-2022 Miscellaneous Notes* Telephone Encounter - Libby Mariano - 10/27/2021 2:30 PM EDT Patient given results and verbalized understanding of instructions given. Libby Mariano * Telephone Encounter - Libby Mariano - 10/27/2021 2:05 PM EDT ----- Message from Melba Suarez APRN.CNP sent at 10/27/2021 1:54 PM EDT ----- Urine culture did not show clear evidence of infection, however it appears sample may have been contaminated with skin bacteria during collection. If not improving, recommend follow up with PCP. Melba Suarez CNP documented in this encounterW[facility]08-19-2022 Instructions* Patient Instructions* Kathya Eric APRN.CN - 10/26/2021 3:03 PM EDT Prescription sent for Diflucan 150mg by mouth for one dose. Culture sent for vaginal yeast and bacterial vaginosis. If something else comes back, will call for further treatment. . VAGINAL YEAST INFECTION What causes a yeast infection? A yeast infection is caused by several different fungi that normally grow in the body. (Yeast is a kind of fungus). A change in the chemical balance in the vagina allows the fungus to grow too rapidly and cause symptoms. Yeast infections most often occur in a woman's vagina. Yeast infections can occur in other parts ofthe body and in men. Though uncomfortable, yeast infections are not serious and can be cured. What are the symptoms of a yeast infection? Common symptoms: Intense vaginal itching Thick, odorless discharge (might resemble cottage cheese) Less common symptoms: Sore vagina Lower abdominal pain Vaginal rash Burning during urination Painful sex Why do yeast infections occur? All of the reasons why yeast infections occur are not yet understood. What is known is that conditions that usually control fungus can change, allowing the fungus to grow rapidly. Some factors that might cause yeast infections include: control pills Poor nutrition Antibiotic treatment Lack of sleep Diabetes Stress HIV\AIDS Can yeast infections recur? Yes. Yeast infections often recur. Some women find that they get yeast infections frequently. Do I need to see a doctor if I think I have a yeast infection? Vaginal discharges have several different causes. If you are fairly certain that you have a yeast infection, you can treat yourself. See your health care provider promptly if the symptoms do not improve. Creams and suppositories can be purchased from a drugstore and used to treat the infection. It's important to follow all of the directions on the product label. Sometimes yeast infections are treated with medicines taken by the mouth. These must be ordered by your health care provider. How can I help prevent yeast infections? Wear loose clothing made from natural fibers (cotton, linen, silk). Avoid wearing pantyhose, tights, or leggings. Avoid wearing tight pants. Don't douche. (Douching can kill bacteria that control fungus.) Limit use of feminine deodorant. Limit use of deodorant tampons or pads. Change out of wet clothing, especially bathing suits, as soon as you can. Avoid frequent hot tub baths. Wash underwear in hot water. Eat a well-balanced diet. Eat yogurt. Use acidophilus tablets. If you have diabetes, keep your blood sugar level as close to normal as possible. What if I have frequent yeast infections? See your health care provider and: Get a blood sugar test for diabetes Get tested for HIV/AIDS Copyright 7193-4180 The [facility]. All rights reserved. This information is provided by the [facility] and is not intended to replace the medical advice of your doctor or health care provider. Please consult your health care provider for advice about a specific medical condition. For additional written health information, please contact the [facility] at the [facility] or toll-free extension [phone]. This document was last reviewed on: 2004 index#[id number] documented in this encounterWvumed[facility]08-19-2022 History of Present illness Narrative* Kathya Eric APRN.CNM - 10/26/2021 2:56 PM EDT Andres Fletcher is a 61 year old female who presents for problem visit for vaginal itching and burning. HPI: Presents today with complaint of vaginal itching and burning. Was seen in urgent care and tested for urinary tract infection but no vaginal samples completed. Patient really uncomfortable. Patient denies any sexual activity or concerns for STDs. Patient here today with caregiver and questions answered per caregiver. 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 Anna Tomlin from 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 EGD W/O OR W/BRUSH/WASH 05/28/2018 PAST SURGICAL HISTORY OF 08/08/1989 gavi in right thigh PAST SURGICAL HISTORY OF cerebral implant PAST SURGICAL HISTORY OF around 2000 Deep Brain Stimulator, non-functioning per mother FAMILY HISTORY Problem Relation Age of Onset other (UNKNOWN) Other Social History Tobacco Use Smoking status: Never Smokeless tobacco: Never Substance Use Topics Alcohol use: No Drug use: No Current Outpatient Medications Medication Sig FERROUS SULFATE ORAL Take by mouth. apixaban (ELIQUIS) 5 mg tab(s) Take by mouth twice daily. ergocalciferol 50,000 unit capsule (VITAMIN D2, DRISDOL) Take 50,000 Units by mouth once every month. DESITIN 40 % OINTMENT Apply to buttocks twice daily prednisoLONE acetate (PRED FORTE, ECONOPRED PLUS) 1 % ophthalmic suspension One drop 4X a day for 1week, then 3X a day for 1 week, then 2X a day for 1 week, then once daily for 1 week. ofloxacin (OCUFLOX) 0.3 % ophthalmic solution One drop 4 times a day for one week in surgical eye(s). levothyroxine (SYNTHROID) 50 mcg tablet Take 50 mcg by mouth once daily. prednisoLONE acetate (PRED FORTE, ECONOPRED PLUS) 1 % ophthalmic suspension One drop 4X a day for 1week, then 3X a day for 1 week, then 2X a day for 1 week, then once daily for 1 week. ofloxacin (OCUFLOX) 0.3 % ophthalmic solution One drop 4 times a day for one week in surgical eye(s). prednisoLONE acetate (PRED FORTE, ECONOPRED PLUS) 1 % ophthalmic suspension One drop 4X a day for 1week, then 3X a day for 1 week, then 2X a day for 1 week, then once daily for 1 week. ofloxacin (OCUFLOX) 0.3 % ophthalmic solution One drop 4 times a day for one week in surgical eye(s). polyethylene glycol 3350 (MIRALAX, GLYCOLAX) 17 gram/dose powder Take 17 g by mouth once daily. ipratropium-albuterol (DUONEB) 0.5 mg-3 mg(2.5 mg base)/3 mL nebu Inhale 3 mL as instructed every 6hours as needed. omeprazole (PRILOSEC) 20 mg capsule Take 2 capsules by mouth once daily. take in AM 1/2 hour beforeeating senna (SENOKOT) 8.6 mg tab Take 17.2 mg by mouth twice daily. Mirtazapine (REMERON) 7.5 mg tablet Take 7.5 mg by mouth daily at bedtime. FLUOXETINE HCL (PROZAC ORAL) Take 10 mL by mouth once daily. melatonin 3 mg tab take 1.5 tablets( 4.5mg) daily at bedtime lactulose (GENERLAC) 20 gram/30 mL solution Take 30 mL by mouth twice daily. Loratadine (ALLERGY RELIEF, LORATADINE,) 10 mg dissolvable tablet Take 1 tablet by mouth once daily. levothyroxine (SYNTHROID) 75 mcg tablet Take 1 tablet by mouth once daily. COMPOUNDED PRESCRIPTION Light talker [employer] Pathfinder Device with Table Mount, Wheelchair Mount and carrying case Diagnosis: Cerebral Palsy 343.8 Note: patient has no functional speech abilities WHEELCHAIR CUSHION MISC Use daily for prevention of decubitus MILK OF MAGNESIA 400 MG/5 ML ORAL SUSP as needed No current facility-administered medications for this visit. Allergies As of Date: 10/26/2021 Allergen Noted Reaction AUGMENTIN [AMOXICILLIN-POT CLAVUL*10/16/2010 Diarrhea OTHER [OTHER] 11/13/2004 POTASSIUM 04/13/2018 Intolerance Fully Assessed 10/26/2021 REVIEW OF SYSTEMS Abdomen: No bloating, early satiety, indigestion, or increased flatulence. No abdominal pain, nausea, vomiting, diarrhea, or constipation. Bladder: No dysuria, gross hematuria, Breast: No breast lumps, nipple d/c, overlying skin changes, redness or skin retraction. Expanded ROS: N/A Allergies and current medication updated:Yes EXAM: GENERAL: pleasant, female in no apparent distress HEENT: Normocephalic NECK: Supple DERMATOLOGY: Normal, without lesions, non-icteric, and non-hirsute PELVIC: unable to insert speculum due to limited access in wheelchair. Able to insert swab into vaginal opening for testing. No redness or irritation. ASSESSMENT AND PLAN: 1. Vaginal itching - ICD9: 698.1, ICD10: N89.8 (primary diagnosis) - ONESIMO / TRICHOMONAS AMPLIFICATION - BACTERIAL VAGINOSIS AMPLIFICATION 2. Vaginal burning - ICD9: 625.8, ICD10: N94.9 - ONESIMO / TRICHOMONAS AMPLIFICATION - BACTERIAL VAGINOSIS AMPLIFICATION 3. Vaginal odor - ICD9: 625.8, ICD10: N89.8 - ONESIMO / TRICHOMONAS AMPLIFICATION - BACTERIAL VAGINOSIS AMPLIFICATION 4. Vaginal discharge - ICD9: 623.5, ICD10: N89.8 - ONESIMO / TRICHOMONAS AMPLIFICATION - BACTERIAL VAGINOSIS AMPLIFICATION Requesting treatment due to current symptoms. Diflucan 150mg PO once. Will notify if any further recommendations. Kathya Eric APRN.CNM documented in this encounterW[facility]08-19-2022 History of Present illness Narrative* Lennox Chamberlain APRN.CNP - 10/26/2021 8:17 AM EDT Subjective HPI HPI Tonya Fletcher is a 61 year old female who presents today for CC of burning with urination. This started 1 week ago. Has tried nothing for relief. Symptoms are worsened by nothing. manager staffing reports no visible abnormality in area. Patient physically disabled/strapped to motorized chair. Initial hpi to nurse was congestion, cough, wheezing. Per caregiver patient has chronic cough/nothing new. Wheezed X1 last night when laid down for night. No nasal congestion. Denies fever, cp/sob, vomiting/diarrhea. Patient nearly nonvirbal, shaking head yes/no .Patient presents with: Urinary Problem: burning with urination, cough, congestion and wheezing x 1 day PAST MEDICAL HISTORY Diagnosis Date Allergic rhinitis due to other allergen Depressive disorder, not elsewhere classified Sees Dr. Anna Tomlin from 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 EGD W/O OR W/BRUSH/WASH 05/28/2018 PAST SURGICAL HISTORY OF 08/08/1989 gavi in right thigh PAST SURGICAL HISTORY OF cerebral implant PAST SURGICAL HISTORY OF around 2000 Deep Brain Stimulator, non-functioning per mother ALLERGIES Augmentin [Amoxicillin-Pot Clavulanate], Other [Other], and Potassium MEDICATIONS prednisoLONE acetate (PRED FORTE, ECONOPRED PLUS) 1 % ophthalmic suspension One drop 4X a day for 1week, then 3X a day for 1 week, then 2X a day for 1 week, then once daily for 1 week. ofloxacin (OCUFLOX) 0.3 % ophthalmic solution One drop 4 times a day for one week in surgical eye(s). levothyroxine (SYNTHROID) 50 mcg tablet Take 50 mcg by mouth once daily. prednisoLONE acetate (PRED FORTE, ECONOPRED PLUS) 1 % ophthalmic suspension One drop 4X a day for 1week, then 3X a day for 1 week, then 2X a day for 1 week, then once daily for 1 week. ofloxacin (OCUFLOX) 0.3 % ophthalmic solution One drop 4 times a day for one week in surgical eye(s). prednisoLONE acetate (PRED FORTE, ECONOPRED PLUS) 1 % ophthalmic suspension One drop 4X a day for 1week, then 3X a day for 1 week, then 2X a day for 1 week, then once daily for 1 week. ofloxacin (OCUFLOX) 0.3 % ophthalmic solution One drop 4 times a day for one week in surgical eye(s). polyethylene glycol 3350 (MIRALAX, GLYCOLAX) 17 gram/dose powder Take 17 g by mouth once daily. ipratropium-albuterol (DUONEB) 0.5 mg-3 mg(2.5 mg base)/3 mL nebu Inhale 3 mL as instructed every 6hours as needed. FERROUS SULFATE ORAL Take by mouth. apixaban (ELIQUIS) 5 mg tab(s) Take by mouth twice daily. omeprazole (PRILOSEC) 20 mg capsule Take 2 capsules by mouth once daily. take in AM 1/2 hour beforeeating senna (SENOKOT) 8.6 mg tab Take 17.2 mg by mouth twice daily. Mirtazapine (REMERON) 7.5 mg tablet Take 7.5 mg by mouth daily at bedtime. ergocalciferol 50,000 unit capsule (VITAMIN D2, DRISDOL) Take 50,000 Units by mouth once every month. FLUOXETINE HCL (PROZAC ORAL) Take 10 mL by mouth once daily. melatonin 3 mg tab take 1.5 tablets( 4.5mg) daily at bedtime lactulose (GENERLAC) 20 gram/30 mL solution Take 30 mL by mouth twice daily. Loratadine (ALLERGY RELIEF, LORATADINE,) 10 mg dissolvable tablet Take 1 tablet by mouth once daily. levothyroxine (SYNTHROID) 75 mcg tablet Take 1 tablet by mouth once daily. DESITIN 40 % OINTMENT Apply to buttocks twice daily COMPOUNDED PRESCRIPTION Light talker [facility] Pathfinder Device with Table Mount, Wheelchair Mount and carrying case Diagnosis: Cerebral Palsy 343.8 Note: patient has no functional speech abilities WHEELCHAIR CUSHION MISC Use daily for prevention of decubitus MILK OF MAGNESIA 400 MG/5 ML ORAL SUSP as needed FAMILY HISTORY Problem Relation Age of Onset other (UNKNOWN) Other Social History Tobacco Use Smoking status: Never Smokeless tobacco: Never Substance Use Topics Alcohol use: No Drug use: No ROS Objective Blood pressure 126/80, pulse 72, temperature 36.2 C (97.2 F), resp. rate 16, SpO2 98 %. Physical Exam Constitutional: General: She is not in acute distress. Appearance: She is not toxic-appearing or diaphoretic. HENT: Head: Normocephalic and atraumatic. Cardiovascular: Rate and Rhythm: Normal rate and regular rhythm. Heart sounds: Normal heart sounds, S1 normal and S2 normal. Pulmonary: Effort: Pulmonary effort is normal. Breath sounds: Normal breath sounds. Abdominal: Comments: Exam hindered by strap from motorized wheel chair. Lymphadenopathy: Cervical: No cervical adenopathy. Right cervical: No superficial cervical adenopathy. Left cervical: No superficial cervical adenopathy. Neurological: Mental Status: She is alert and oriented to person, place, and time. Gait: Gait is intact. ASSESSMENT/PLAN: 1. Burning with urination - ICD9: 788.1, ICD10: R30.0 (primary diagnosis) Acute -urinalysis negative - Send urine for culture - will try to get earlier electrolysis operator appointment Worsening symptoms go to ER. - UA DIP, URINE (POC) - URINE CULTURE 2. Wheeze - ICD9: 786.07, ICD10: R06.2 Occurred 1 time while lying down Use inhaler as needed Will send covid test 3. Chronic cough - ICD9: 786.2, ICD10: R05.3 Will send covid test Use inhaler as needed -If you experience chest pain/shortness of breath go to ER Agrees to plan Lennox Chamberlain APRN.CNP documented in this encounterW[facility]08-19-2022 Instructions* Patient Instructions* Lennox Chamberlain APRN.CNP - 10/26/2021 8:09 AM EDT ASSESSMENT/PLAN: 1. Burning with urination - ICD9: 788.1, ICD10: R30.0 (primary diagnosis) Acute -urinalysis negative - Send urine for culture - will try to get earlier electrolysis operator appointment Worsening symptoms go to ER. - UA DIP, URINE (POC) - URINE CULTURE 2. Wheeze - ICD9: 786.07, ICD10: R06.2 Occurred 1 time while lying down Use inhaler as needed Will send covid test 3. Chronic cough - ICD9: 786.2, ICD10: R05.3 Will send covid test Use inhaler as needed -If you experience chest pain/shortness of breath go to ER documented in this encounterGerman Hospital noteNo assessment information availableWUniversity [facility]als [facility] Work Phone: Evaluation note* Diagnosis Burning with urination- Primary Dysuria Wheeze Wheezing Chronic cough Cough documented [facility] encounter [facility]* Diagnosis Vaginal itching- Primary Pruritus of genital organs Vaginal burning Other specified symptom associated with female genital organs Vaginal odor Unspecified symptom associated with female genital organs Vaginal discharge Leukorrhea, not specified as infective documented in this encounter [facility]* Diagnosis Onset Date Resolution Status Acute respiratory failure with hypoxia acute RSV bronchitis acute Tachycardia [facility] Work Phone: Evaluation note* Diagnosis Onset Date Resolution Status RSV bronchitis acute Acute respiratory failure with hypoxia resolved Tachycardia resolved Gastroenteritis acute URI (upper respiratory infection) acute [facility] Work Phone: Evaluation note* Diagnosis Pre-operative examination- Primary Preoperative examination, unspecified Senile cataract of left eye, unspecified age-related cataract type Infantile cerebral palsy (HCC) Infantile cerebral palsy, unspecified History of pulmonary embolism Personal history of pulmonary embolism Gastroesophageal reflux disease, esophagitis presence not specified Esophageal dysphagia Dysphagia, pharyngoesophageal phase Arias's esophagus with dysplasia Arias's esophagus Hypothyroidism, unspecified type Depression, unspecified depression type S/P deep brain stimulator placement Other postprocedural status Nausea and vomiting, unspecified vomiting type- Primary [facility] Additional Instructions Your workup today does not show any signs of aspiration or small bowel obstruction. Symptoms are most likely related to a viral stomach infection based on your negative workup and exposure. Use the Zofran as directed to help control any further bouts of nausea and vomiting and return to the ER should you have any further concernsWUniversity [facility] Work Phone: Hospital Discharge instructions Additional Instructions Chest x-ray currently shows no signs of pneumonia. She may or may not have aspirated often signs do not show up for several days on the x-ray. At this time she does not need antibiotics. Follow-up with her doctor if she is not getting better. Return to the emergency department if she develops a fever or is worse.[facility] Work Phone: Reason for referral (narrative)No reason for referral information availableWUniversity Hospitals [facility] Work Phone: Summary Purpose Family History No Family History Records Found Relationship Condition Age at Onset Recorded Date/T myron Unknown Family History?No pe rtinent history Unknown May 21, 2017 5:36pm Family History?No pe rtinent history Unknown January 08, 2019 9:27am Relationship Condition Age at Onset Recorded Date/T myron Unknown Family History?No pe rtinent history Unknown January 08, 2019 8:27am Family History?No pe rtinent history Unknown January 21, 2022 1:53pm Relationship Condition Age at Onset Recorded Date/T myron Unknown Family History?No pe rtinent history Unknown January 08, 2019 9:27am Family History?No pe rtinent history Unknown January 21, 2022 2:53pm Relationship Condition Age at Onset Recorded Date/T myron father Pulmonary embolism Unknown Alcoholism Unknown mother Cerebrovascular accident (CVA) Unknown Advance Directives No Advanced Directives Records Found Advance Directive Response Recorded Date/ Time Advance Directives No May 25 9:26am Living Will No February 05 11:33pm Power of Roll Forger No February 05, 2021 11:33pm Advance Directive Response Recorded Date/ Time Name of Medical Power of Roll Forger Jess anders January 02, 2022 9:53pm Advance Directives No May 25 9:26am Living Will No January 02 9:53pm Power of Roll Forger Yes January 02, 2022 9:53pm Advance Directive Response Recorded Date/ Time Name of Medical Power of Roll Forger Jess SaldivarRosendo Jonah anders January 02, 2022 8:53pm Advance Directives No January 1:53pm Living Will No March 21 5:49pm Power of Roll Forger No March 21, 2022 5:49pm Advance Directive Response Recorded Date/ Time Advance Directives No January 2:53pm Living Will No March 21 6:49pm Power of Roll Forger No March 21, 2022 6:49pm Advance Directive Response Recorded Date/ Time Advance Directives No January 2:53pm Living Will No August 15, 2022 5 :22pm Power of Roll Forger No August 15, 2022 5:22pm Advance Directive Response Recorded Date/ Time Advance Directives No January 1:53pm Living Will No August 15, 2022 4 :22pm Power of Roll Forger No August 15, 2022 4:22pm Advance Directive Response Recorded Date/ Time Advance Directives No January 2:53pm Living Will No July 21, 2023 8 :44am Power of Roll Forger No July 21, 2023 8:44am Advance Directive Response Recorded Date/ Time Living Will No October 08, 2023 3:03pm Do you have a Healthcare Power of Roll Forger? No October 08, 2023 3:03pm Living Will No April 09 9:36pm Do you have a Healthcare Power of Roll Forger? No April 09, 2024 9:36pm Advance Directives No October 07 3:03pm Advance Directive Response Recorded Date/ Time Living Will No October 08, 2023 3:03pm Do you have a Healthcare Power of Roll Forger? No October 08, 2023 3:03pm Advance Directives No October 07 3:03pm Advance Directive Response Recorded Date/ Time Living Will No October 08, 2023 3:03pm Do you have a Healthcare Power of Roll Forger? No October 08, 2023 3:03pm Advance Directives No August 10 2:47pm Chief Complaint and Reason for Visit Chief Complaint RIB PAIN Chief Complaint CHILLS Chief Complaint CHILLS COUGH RESPIRATORY FAILURE RESPIRATORY FAILURE RESPIRATORY FAILURE Reason for Visit Acute respiratory fa ilure with hypoxia RSV bronchitis Tachycardia Chief Complaint Cough RESPIRATORY FAILURE RESPIRATORY FAILURE RESPIRATORY FAILURE COVID TEST sob SCREENING Reason for Visit RSV bronchitis Acute respiratory failure with hypoxia Tachycardia Gastroenteritis URI (upper respiratory infection) Chief Complaint sob SCREENING Chief Complaint sob Chief Complaint VIRAL SYMPTOMS DYSPHAGIA Chief Complaint VIRAL SYMPTOMS DYSPHAGIA Chills (without fever) Chief Complaint GENERAL ILLNESS Chief Complaint GENERAL ILLNESS COUGH Chief Complaint Admit Date SORE THROAT April 09, 2024 8 :31pm COUGH / SORE THROAT/ FLU & COVID NEGATIV E April 21, 2024 1:47pm TOOTH PAIN/CONCERN FOR INFECTION May 082024 4:58pm 6 M FU June 11, 2024 12:5 0pm Reason for Visit Admit Date History of aspiration pneumonia April 21, 2024 1:47pm Sore throat April 21, 2024 1:47pm URI (upper respiratory infection) Februa 2024 1:47pm Health care maintenance June 11, 2024 12:50pm Anxiety and depression June 11, 2024 1 2:50pm Cerebral palsy June 11, 2024 12:5 0pm History of pulmonary embolism June 11, 2024 12:50pm Hypothyroidism June 11, 2024 12:5 0pm Insomnia June 11, 2024 12:5 0pm Intellectual developmental disorder, sev ere June 11, 2024 12:50pm Urinary incontinence June 11, 2024 12: 50pm Chief Complaint Admit Date COUGH / SORE THROAT/ FLU & COVID NEGATIV E April 21, 2024 1:47pm TOOTH PAIN/CONCERN FOR INFECTION May 082024 4:58pm 6 M FU June 11, 2024 12:5 0pm NUSEA/DIARRHEA August 10, 2024 2:55p m Additional Source Comments INFORMATION SOURCE (unrecogn ized section and content) DATE CREATED AUTHOR 09/03/2017 [facility] myrna [place] DATE CREATED AUTHOR AUTHOR'S ORGANIZ ATION 02/15/2018 [facility] DATE CREATED AUTHOR AUTHOR'S ORGANIZ ATION 08/11/2024 [facility] DATE CREATED AUTHOR AUTHOR'S ORGANIZ ATION 08/29/2024 [facility] Goals (unrecognized section and content) Goals may be documented in a n alternate sectionGoals may be documented in an alternate sectionGoals may be documented in an alternate sectionGoals may be documented in an alternate sectionGoals may be documented in an alternate sectionGoals may be documented in an alternate sectionGoals may be documented in an alternate sectionGoals may be documented in an alternate sectionGoals may be documented in an alternate sectionGoals may be documented in an alternate sectionGoals may be documented in an alternate sectionGoals may be documented in an alternate sectionGoals may be documented in an alternate sectionGoals may be documented in an alternate sectionGoals may be documented in an alternate sectionGoals may be documented in an alternate sectionGoals may be documented in an alternate section Source Comments (unrecognize d section and content) In the event this informatio n is protected by the Federal Confidentiality of Alcohol and Drug Abuse Patient Records regulations: The Federal rules restrict any use of the information to criminally investigate or prosecute any alcohol or drug abuse patient.[facility] Hospital[facility] the event this information is protected by the Federal Confidentiality of Alcohol and Drug Abuse Patient Records regulations: The Federal rules restrict any use of the information to criminally investigate or prosecute any alcohol or drug abuse patient.[facility] HospitalIn the event this information is protected by the Federal Confidentiality of Alcohol and Drug Abuse Patient Records regulations: The Federal rules restrict any use of the information to criminally investigate or prosecute any alcohol or drug abuse patient.[facility] HospitalIn the event this information is protected by the Federal Confidentiality of Alcohol and Drug Abuse Patient Records regulations: The Federal rules restrict any use of the information to criminally investigate or prosecute any alcohol or drug abuse patient.[facility] HospitalIn the event this information is protected by the Federal Confidentiality of Alcohol and Drug Abuse Patient Records regulations: The Federal rules restrict any use of the information to criminally investigate or prosecute any alcohol or drug abuse patient.[facility] Reason for Visit (unrecogniz ed section and content) Reason Comments Urinary Problem burning with urinati on, cough, congestion and wheezing x 1 day Reason Comments Results, Lab Results Reason Comments Results Reason Comments Nausea & Vomiting Fever started today Care Teams (unrecognized sec tion and content) Clinical Systems Educator Relationship Specialty Start Date End Date Cain Rocky Montes [address] [facility] [address] [place] [address] PCP - General Family Practice 09/24/12 Bartolo Philippe [address] [place], [place] [id number] Referring Ophthalmology 12/30/18 Clinical Systems Educator Relationship Specialty Start Date End Date Rocky Barlow Chi [address] [place], [place] [id number] PCP - General Family Practice 09/24/12 Bartolo Philippe [address] [place] [address] Referring Ophthalmology 12/30/18 Clinical Systems Educator Relationship Specialty Start Date End Date Cain Rocky Montes [address] [place] [address] PCP - General Family Practice 09/24/12 Bartolo Philippe [address] [place] [address] Referring Ophthalmology 12/30/18 Team Status: Active Member Role Status Dates Dr. Rocky Barlow MD Family Provider Active Dr. Rocky Barlow MD Primary Care Provider Active Team Status: Active Member Role Status Dates Dr. Rocky Barlow MD Primary Care Provider Active Dr. Shazia Fortune DO Emergency Provider Active Dr. Maximiliano Ortiz DO Admit Provider, At tending Provider, Other Provider Active Team Status: Active Member Role Status Dates Dr. Rocky Barlow MD Primary Care Provider Active Dr. Shazia Fortune DO Emergency Provider Active Dr. Maximiliano Ortiz DO Admit Provider, Other Provider A ctive Dr. Jeni Ann , DO Attending Provider, Other Provide r Active Team Status: Inactive Member Role Status Dates Dr. Rocky Barlow MD Primary Care Provider, Referring Provider Active Madhu GOVEA, PA Attending Provider Active Team Status: Inactive Member Role Status Dates Dr. Rocky Barlow MD Primary Care Provi therese, Attending Provider, Referring Provider Active Team Status: Inactive Member Role Status Dates Dr. Rocky Barlow MD Primary Care Provider Active Dr. Shazia Fortune , Emergency Provider Active Dr. Maximiliano Ortiz DO Admit Provider, Other Provider A ctive Dr. Jeni Ann , DO Attending Provider Active Team Status: Inactive Member Role Status Dates Dr. Rocky Barlow MD Primary Care Provider Active Dr. Miguel A Palomino MD Attending Provider, Emergency Pr ovider Active Team Status: Inactive Member Role Status Dates Dr. Rocky Barlow MD Primary Care Provider, Attending Provider Active Team Status: Inactive Member Role Status Dates Dr. Rocky Barlow MD Primary Care Provider Active Dr. Raul Viveros , Attending Provider, Emergency Pro vider Active Team Status: Inactive Member Role Status Dates Dr. Rocky Barlow MD Primary Care Provider Active Dr. Haresh Curtis DO Emergency Provider Active Team Status: Inactive Member Role Status Dates Dr. Rocky Barlow MD Primary Care Provider Active Dr. Haresh Curtis DO Attending Provider, Emergency Pr ovider Active Team Status: Inactive Member Role Status Dates Dr. Rocky Barlow MD Primary Care Provider Active Dr. Dominguez Bolton MD Emergency Provider Active Team Status: Active Member Role Status Dates Dr. Michelle Marroquin MD Primary Care Provider Active Team Status: Inactive Member Role Status Dates Dr. Michelle Marroquin MD Primary Care Provider Active Start: April 09, 2024 End: April 09, 2024 Gregory Coleman MD Attending Provider Active Star t: April 09, 2024 End: April 09, 2024 Gregory Coleman MD Emergency Provider Active Star t: April 09, 2024 End: April 09, 2024 Team Status: Inactive Member Role Status Dates Dr. Michelle Marroquin MD Primary Care Provider Active Start: April 21, 2024 End: April 21, 2024 Dr. Michelle Marroquin MD Attending Provider Active Start: April 21, 2024 End: April 21, 2024 Dr. Michelle Marroquin MD Referring Provider Active Start: April 21, 2024 End: April 21, 2024 Team Status: Inactive Member Role Status Dates Dr. Michelle Marroquin MD Primary Care Provider Active Start: May 18, 2024 End: May 18, 2024 Dr. Michelle Marroquin MD Referring Provider Active Start: May 18, 2024 End: May 18, 2024 Christ GOVEA, PA Attending Provider Active Start: May 18, 2024 End: May 18, 2024 Team Status: Inactive Member Role Status Dates Dr. Michelle Marroquin MD Primary Care Provider Active Start: June 11, 2024 End: June 11, 2024 Dr. Michelle Marroquin MD Attending Provider Active Start: June 11, 2024 End: June 11, 2024 Dr. Michelle Marroquin MD Referring Provider Active Start: June 11, 2024 End: June 11, 2024 Team Status: Inactive Member Role Status Dates Dr. Michelle Marroquin MD Primary Care Provider Active Start: August 10, 2024 End: August 10, 2024 Dr. Michelle Marroquin MD Referring Provider Active Start: August 10, 2024 End: August 10, 2024 Christ GOVEA, PA Attending Provider Active Start: August 10, 2024 End: August 10, 2024 Clinical Systems Educator Relationship Specialty Start Date End Date Rocky Barlow Chi [address] [facility] [address] [place] [address] PCP - General Family Medicine 09/24/12 Bartolo Philippe MD [address] [place] [address] Referring Ophthalmology 12/30/18 FOR RECORDS PERTAINING TO PATIENTS WHO ARE OR HAVE BEEN ENROLLED IN A CHEMICAL DEPENDENCY/SUBSTANCEABUSE PROGRAM, SOME INFORMATION MAY BE OMITTED. This clinical summary was aggregated from multiple sources. Caution should be exercised in using it in the provision of clinical care. This summary normalizes information from multiple sources, and as a consequence, information in this document may materially change the coding, format and clinical context of patient data. In addition, data may be omitted in some cases. CLINICAL DECISIONS SHOULD BE BASED ON THE PRIMARY CLINICAL RECORDS. [employer] provides no warranty or guarantee of the accuracy or completeness of information in this document.
[2024-09-05 08:29] LABS: Hematocrit 41.2 % (37-47); Hemoglobin 13.9 g/dL (12.0-15.0); Immature Granulocytes Count 0.030 X10^3/uL (0.0-0.0); Mean Corp Hgb Conc 33.7 g/dL (32-36); Mean Corpuscular Volume 94.9 fL (81-99); Mean Platelet Vol. 11.2 fl (6.2-12.0); NRBC Flagged by Analyzer 0 % (0-5); Platelet Count 263 K/mm3 (150-450); RBC Distribution Width CV 13.5 % (11.6-14.6); RBC Distribution Width SD 47.7 fl (35.1-43.9); Red Blood Count 4.34 M/mm3 (4.2-5.4); White Blood Count 12.1 K/mm3 (4.4-11.0)
[2024-09-05] MEDS: Pantoprazole Sodium 40 MG in 0.9% Normal Saline (100mL MB+) 100 ML 300 MG IV ×2 (08:33→21:52)
[2024-09-05 09:21] LABS: AST(SGOT) 15 U/L (<=31); Alanine Aminotransfer ALT/SGPT 5 U/L (<=34); Albumin, Serum 3.8 g/dL (3.4-4.8); Alkaline Phosphatase 86 U/L (35-104); Anion Gap 12 (5-15); BUN 10 mg/dL (4-19); BUN/Creat Ratio 22.1 RATIO (10-20); Calcium,Total 9.0 mg/dL (7.6-11.0); Carbon Dioxide 24.1 mmol/L (21.0-32.0); Chloride 104 mmol/L (98-108); Globulin 3.1 g/dL (2.2-4.2); Glucose 105 mg/dL (70-99); Potassium 4.2 mmol/L (3.3-5.1)
[2024-09-05 12:39] LABS: Hematocrit 36.8 % (37-47); Hemoglobin 12.6 g/dL (12.0-15.0)
--- NOTE | 2024-09-05 13:03 | HP.PCM.HOS_ITS ---
HPI - General General Date of Admission: 09/05/24 Date of Service: 09/05/24 Chief Complaint: Hematemesis HPI Narrative SUNNI GUIDRY, is a 64 F who has a history of MRDD and is nonverbal at baseline and presented to the emergency department at [facility] on 09/05/2024 with caregivers. Evidently, about a week ago they thought she might of had a dark emesis. They saw her primary care physician but she did not have labs done at that time. Today she had another episode that looked black so they brought her to the emergency department. She is anticoagulated baseline for home with Eliquis for history of pulmonary embolus. History is limited as patient cannot participate in giving any review of systems. Vital signs on presentation showed temperature of 96.0, heart rate 84, respiratory 16, blood pressure was 119/71 and pulse ox 90% room air. CBC showed a leukocytosis white count of 12.1 and a hemoglobin of 13.9 with a normal platelet count. Coags were normal. Chemistry panel was unremarkable other than mild hyperglycemia with a glucose of 105 that is nonfasting. Liver functions are normal. The initial plan was to recheck her hemoglobin at noon which we did. If there was a drop we are going to admit her if she was stable regarding discharge sure. Unfortunately her hemoglobin dropped about a gram and a half without being given any IV fluids so there was no concern for hemodilution with IV fluids. Given his drop in her chronic ongoing use of Eliquis for PE we elected to admit her. She was given 1 dose of Protonix in the emergency department. [facility], [facility] Medical History Diarrhea Nausea Intellectual developmental disorder, severe Urinary incontinence History of aspiration pneumonia Sore throat Hypothyroidism Cerebral palsy History of airway aspiration Health care maintenance Anxiety and depression History of pulmonary embolism Gastroenteritis URI (upper respiratory infection) neurostimulater Pacemaker metal gavi rt leg Hyperlipidemia Insomnia Fecal impaction Barretts esophagus Pulmonary embolism Vitamin D deficiency Allergic rhinitis GERD (gastroesophageal reflux disease) Depression Home Medications ?Medication ?Instructions ?Recorded ?Last Taken ?Type loratadine 10 mg tablet 10 mg PO DAILY@0800 ALLERGIE S 09/10/14 01/02/22 History mirtazapine 7.5 mg tablet 7.5 mg PO QHS@1999 DEPRESSIO N 05/19/17 01/01/22 History azelastine 0.05 % eye drops 0.05 drp EACH EYE BID@0800 ,199908/08/18 01/02/22 History DRY EYES apixaban 5 mg tablet 5 mg PO BID BLOOD THINNER 01/02/22 History ascorbic acid (vitamin C) 500 mg 500 mg PO DAILY@0800 SUPPLEMENT 01/02/22 01/02/22 History tablet carboxymethylcellulose sodium 0.5 1 drp EACH EYE TID 1 01/02/22 History % eye drops (Refresh Tears) cholecalciferol (vitamin D3) 25 25 mcg PO DAILY@0800 S UPPLEMENT 01/02/22 01/02/22 History mcg (1,000 unit) chewable tablet (Vitamin D3) ferrous gluconate 324 mg (38 mg 324 mg PO DAILY@0800 S UPPLEMENT 01/02/22 01/02/22 History iron) tablet levothyroxine 50 mcg tablet 50 mcg PO DAILY@0600 THYRO ID 01/02/22 01/02/22 History omeprazole 40 mg capsule,delayed 40 mg PO DAILY@0700 G ERD 01/02/22 01/02/22 History release ondansetron 4 mg disintegrating 4 mg PO TID PRN nausea and 06/13/23 Unknown Rx tablet vomiting #21 tabs GENERAL PROTECTION LOTION 1 dose topical 4X/DAY PRN sk in 07/31/23 Unknown History protection acetaminophen 160 mg/5 mL oral 500 mg PO Q6H PRN fever or pain 07/31/23 Unknown History elixir bisacodyl 10 mg/30 mL enema (Fleet 5 mg DE DAILY PRN c onstipation 07/31/23 Unknown History Bisacodyl) bismuth subsalicylate 525 mg/15 mL 1,050 mg PO .4X KRISTIN LY PRN diarrhea 07/31/23 Unknown History oral suspension (Pepto-Bismol Max St) carboxymethylcellulose sodium 0.5 1 drp ophthalmic (ey e) 4-6XD PRN 07/31/23 Unknown History % eye drops (Refresh Tears) dry eye(s) citalopram 10 mg tablet 10 mg PO DAILY 07/31/23 Unkn own History citalopram 20 mg tablet 20 mg PO DAILY 07/31/23 Unkn own History ipratropium 0.5 mg-albuterol 3 mg 3 ml inhalation Q4H PRN shortness 07/31/23 Unknown History (2.5 mg base)/3 mL nebulization of breath or wheezing soln terbinafine HCl 1 % topical cream 1 applic topical BID PRN redness 10/08/23 Unknown History irrit docusate sodium 100 mg capsule 100 mg PO Q OTHER DAY # 15 caps 07/03/24 Unknown Rx Allergy/AdvReac Type Severity Reaction Status Date / Time amoxicillin trihydrate (From AdvReac Unknown Verified 08/10/24 14:57 Augmentin) potassium clavulanate (From AdvReac Unknown Verified 08/10/24 14:57 Augmentin) Family History Father Pulmonary embolism Alcoholism Mother CVA (cerebral vascular accident) Surgical History Hx of cataract removal with insertion of prosthetic lens Social History Smoking Status: Never smoker alcohol intake: current alcohol intake frequency: 0-2 drinks per day substance use type: does not use and other details: THC LAST USED ON 07/20/23 seatbelt use: always ROS Review of Systems ROS Unobtainable: due to mental condition Vital Signs Vital Signs Vital Signs: 09/05/24 07:29 09/05/24 09:28 09/05/24 11:00 Temperature 96.0 F L Temperature Source Temporal Pulse Rate 84 81 72 Respiratory Rate 16 22 H 17 Blood Pressure 119/71 101/57 L Blood Pressure Mean 87 71 Pulse Ox 98 97 95 Oxygen Delivery Method Room Air Room Air Physical Exam Const alert, no apparent distress, average body habitus and well nourished Constitutional Narrative: Older, white female, lying in bed, does not appear to be in distress or toxic, caregiver at bedside General Appearance: cooperative HEENT normocephalic and head/scalp atraumatic HEENT Narrative: Mallampati is 3, edentulous, no thrush Eyes conjunctivae normal Eyes Narrative: No scleral icterus Resp normal respiratory effort, no retractions, no use of accessory muscles and clear to auscultation bilaterally Auscultation: Negative for rales, rhonchi or wheezes Cardio regular rate, regular rhythm, S1 normal heart sound, S2 normal heart sound, no murmurs, no rub, no gallops and no clicks GI normal to inspection, nondistended, normoactive bowel sounds, soft to palpation and non-tender Extremity no clubbing, cyanosis or edema Extremity Narrative: Extremities upper and lower extremities are contracted Neuro Neuro Narrative: Is able to move all 4 extremities but limited due to contractures, patient is wheelchair-bound at baseline Speech: Negative for speech normal Psych Psych Narrative: Calm Results Lab / Micro Data 09/05/24 14:55 09/05/24 08:16 Labs: Laboratory Results - last 24 hr 09/05/24 08:16: WBC 12.1 H, RBC 4.34, Hgb 13.9, Hct 41.2, MCV 94.9, MCH 32.0, MCHC 33.7, RDW Std Deviation 47.7 H, RDW Coeff of Handy 13.5, Plt Count 263, MPV 11.2, Immature Gran % (Auto) 0.200, Neut % (Auto) 62.1, Lymph % (Auto) 28.4, Lander % (Auto) 6.0, Eos % (Auto) 2.5, Baso % (Auto) 0.8, Absolute Neuts (auto) 7.5, Absolute Lymphs (auto) 3.45, Nucleated RBC % 0, Sodium 140, Potassium 4.2, Chloride 104, Carbon Dioxide 24.1, Anion Gap 12, BUN 10, Creatinine 0.47 L, Est GFR (MDRD) Non-Af 107, BUN/Creatinine Ratio 22.1 H, Glucose 105 H, Calcium 9.0, Total Bilirubin 0.39, AST 15, ALT 5, Alkaline Phosphatase 86, Total Protein 6.9, Albumin 3.8, Globulin 3.1, Albumin/Globulin Ratio 1.2, Blood Type Cancelled, Antibody Screen Cancelled 09/05/24 09:15: Blood Type A POSITIVE, Antibody Screen NEGATIVE 09/05/24 12:25: Hgb 12.6, Hct 36.8 L Assessment & Plan Assessment/Plan (1) Hematemesis: PLAN: Plan Hematemesis - Patient with 2 episodes of melena witnessed of hematemesis - Initial hemoglobin was 13.9 however repeat was down to 12.6 and the patient was not given any fluids that would cause hemodilution - With the drop we felt admission was more prudent since she is on anticoagulation for PE at baseline and she is not reliable historian - Clear liquids for now and n.p.o. after midnight - Protonix IV twice daily - Consult GI--> patient has Arias's esophagus at baseline Leukocytosis - Mild - Suspect reactive - Differential is normal - Will repeat in a.m. 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
--- OUTSIDE RECORDS SUMMARY | 2024-09-05 13:33 | XMS RPT_ITS | CCD ---
Author Organization [facility] Care Team Providers Care Mental Tester Name Role Phone Yang Abrams Unavailable Unavailable Cain, Rocky-Chi Unavailable Unavailable Yang Abrams Unavailable Unavailable Cani, Rocky-Chi Unavailable Unavailable AMINIAN, ALI Unavailable Unavailable AMINIAN, ALI Unavailable Unavailable AMINIAN, ALI Unavailable Unavailable Cain, Rocky Chi Primary Care Provider 1([facility])[phone] Bartolo Philippe Unavailable 1([facility])[phone] Dr. Rocky Barlow Chi Primary Care Provider 1([facility])[phone] Dr. Shazia Fortune Emergency Provider 1([facility])[phone] Maximiliano Ortiz Admit Provider Dr. Maximiliano Ortiz Attending Provider 1([facility])[phone] Maximiliano Ortiz Other Provider Dr. Jeni Ann Attending Provider 1([facility])[phone] Jeni Ann Other Provider Dr. Rocky Barlow Chi Primary Care Provider 1([facility])[phone] Dr. Shazia Fortune Emergency Provider 1([facility])[phone] Maximiliano Otriz Admit Provider Dr. Maximiliano Ortiz Attending Provider 1([facility])[phone] Maximiliano Ortiz Other Provider Dr. Jeni nAn Attending Provider 1([facility])[phone] Jeni Ann Other Provider Dr. Rocky Barlow Chi Referring Provider 1([facility])[phone] XUAN Pope Attending Provider Lopez LEVY, Dr. Martinez Primary Care Provider Gregory Coleman MD Attending Provider Virginia LEVY, Gregory Emergency Provider Lopez LEVY, Dr. Martinez Attending Provider Lopez LEVY, Dr. Martinez Referring Provider Christ Saldivar Attending Provider [phone] Lopez LEVY, Dr. Martinez Primary Care Provider Cain, [facility] Primary Care Provider Denae LEVY, Bartolo Ervin Unavailable CAIN, [facility] Primary Care Unavailable HAJA COLEY Attending Unavailable Oleghe, Efewongbe Attending Unavailable Oleghe, Efewongbe Referring Unavailable Oleghe, Efewongbe Primary Care Unavailable Oleghe, Efewongbe Primary Care Unavailable Gregory Coleman Attending Unavailable Oleghe, Efewongbe Primary Care Unavailable Maximiliano Fatima Attending Unavailable Oleghe, Efewongbe Primary Care Unavailable Gregory Coleman Attending Unavailable Dominguez Bolton Attending Unavailable Oleghe, Efewongbe Primary Care Unavailable Oleghe, Efewongbe Referring Unavailable Christ Saldivar Attending Unavailable Oleghe, Efewongbe Primary Care Unavailable John Keyes Attending Unavailable Oleghe, Efewongbe Primary Care Unavailable Oleghe, Efewongbe Referring Unavailable Panfilo Reese Attending Unavailable Oleghe, Efewongbe Primary Care Unavailable John Keyes Attending Unavailable Oleghe, Efewongbe Primary Care Unavailable Oleghe, Efewongbe Referring Unavailable Oleghe, Efewongbe Primary Care Unavailable Oleghe, Efewongbe Attending Unavailable Oleghe, Efewongbe Referring Unavailable Christ Saldivar Attending Unavailable Oleghe, Efewongbe Referring Unavailable Oleghe, Efewongbe Primary Care Unavailable Oleghe, Efewongbe Attending Unavailable Oleghe, Efewongbe Referring Unavailable Oleghe, Efewongbe Primary Care Unavailable Oleghe, Efewongbe Attending Unavailable Oleghe, Efewongbe Referring Unavailable Michelle Marroquin Primary Care Unavailable Allergies Allergy Classification Reported Allergen(s) Allergy Type Date of Onset Reaction(s) Facility (7 sources) AMOXICILLIN-POT CLAVULANATE; Translations: [AMOXICILLIN-POT CLAVULANATE] Propensity to adverse reactions to drug (disorder) 1 Diarrhea [facility] Repository (2 sources) OTHER; Translations: [OTHER] Propensity to adverse reactions (disorder) 5 [facility] Repository (20 sources) Amoxicillin; Translations: [amoxicillin trihydrate] Drug Allergy 1 Unknown [facility] (20 sources) potassium clavulanate; Translations: [potassium clavulanate] Propensity to adverse reactions 1 Unknown [facility] (6 sources) Potassium; Translations: [POTASSIUM] Drug Allergy 9 Intolerance [facility] Work Phone: (5 sources) OTHER [Other] Propensity to adverse reactions 5 [facility] Work Phone: Medications Current Medications Medication Drug [...] Start: 01-02-2022 take 1 tablet by courtney once daily Cholecalciferol (Vitamin D3) (Vitamin D3) [...] Start: 07-31-2023 take 2 tablets by mo [facility] once [facility], then take 3 tablets by [...] sources) Provitamin D2 Compound Start: 11-13-2018 take 10684 [IU] by mouth every month Ergocalciferol (Vitamin D2) Active 10680 UNIT PO EVERY MONTH November 13, 2018 [...] mg PO Q4H as needed for congestion 1000 April 215 7:53pm COUGH OR THICK PHLEGM/SECRETIONS lactulose 667 [...] 50 mcg tablet Active 50 ug PO DAILY@599January 02, 2022 12:00am Start: 09-10-2014 take 50 ug by mouth once daily Levothyroxine Active 50 MCG PO DAILY September 10, 2014 12:00am Start: 03-19-2013 End: 08-26-2024 take 1 tablet by mouth once daily levothyroxine (SYNTHROID) 75 mcg tablet Take 1 tablet by mouth once daily. 30 tablet 2 03/19/2013 08/26/2024 Discontinued Comment on above: Take 1 tablet by courtney th once daily. Take 50 mcg by mouth [...] on above: Take 1 tablet by courtney th once daily. Melatonin / pyridoxine (7 sources) [...] mg Capsule,Delayed Release(Dr/Ec) Active 40 mg PO DAILY@699January 02, 2022 12:00am Start: 01-08-2019 take 40 [...] June 13, 2023 6:59am polyethylene glycol 3350 44650 mg powder for oral solution (12 sources) Osmotic Laxative Start: 08-09-19 19 Polyethylene Glycol 3350 Active 17 GM BC DAILY August 08, 2018 12:00am Comment on above: Take 17 g by mouth o nce daily. sennosides, senior living 8.6 mg oral tablet (12 sources) Start: 04-20-19 16 End: 08-27-19 25 take 1 tablet by [...] Discontinued 300 mg GT TWICE A DAY May 22, 2017 12:00am May 27, 2018 [...] on above: Take 1 tablet by courtney one time only for 1 dose. 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, [address] Absolute Neut 7.5 X10 3/uL Normal 2.0-7.7 [facility] Comment on above: Performed By: #### L 100.0100, L500.4050, BTS ####[facility] [address] [place], [address] Basophils/100 WBC (Bld) 0.8 % Normal 0-1 [facility] Comment on above: Performed By: #### L 100.0100, L500.4050, BTS ####[facility] [address] [place], [address] Eosinophils/100 WBC (Bld) 2.5 % Normal 0-5 [facility] Comment on above: Performed By: #### L 100.0100, L500.4050, BTS ####[facility] [address] [place], [address] Erythrocyte distribution width (RBC) [Ratio] 13.5 % Normal 11.6-14.6 [facility] Comment on above: Performed By: #### L 100.0100, L500.4050, BTS ####[facility] [address] [place], [address] Hematocrit (Bld) [Volume fraction] 41.2 % Normal 37-47 [facility] Comment on above: Performed By: #### L 100.0100, L500.4050, BTS ####[facility] [address] [place], [address] Hemoglobin (Bld) [Mass/Vol] 13.9 g/dL Normal 12.0-15.0 [facility] Comment on above: Performed By: #### L 100.0100, L500.4050, BTS ####[facility] [address] [place], [address] IG% 0.200 Normal 0.0-0.9 [facility] Comment on above: Result Comment: IG% - Immature Granulocytes (promyelocytes, myelocytes and metamyelocytes) > 1% indicates that a LEFT SHIFT is Present. Performed By: #### L 100.0100, L500.4050, BTS ####[facility] [address] [place], [address] Lymphocytes/100 WBC (Bld) 28.4 % Normal 19-41 [facility] Comment on above: Performed By: #### L 100.0100, L500.4050, BTS ####[facility] [address] [place], [address] MCH (RBC) [Entitic mass] 32.0 pg Normal 27.0-32.0 [facility] Comment on above: Performed By: #### L 100.0100, L500.4050, BTS ####[facility] [address] [place], [address] MCHC (RBC) [Mass/Vol] 33.7 g/dL Normal 32-36 [facility] Comment on above: Performed By: #### L 100.0100, L500.4050, BTS ####[facility] [address] [place], [address] MCV (RBC) [Entitic vol] 94.9 fL Normal 81-99 [facility] Comment on above: Performed By: #### L 100.0100, L500.4050, BTS ####[facility] [address] [place], [address] Monocytes/100 WBC (Bld) 6.0 % Normal 0-10 [facility] Comment on above: Performed By: #### L 100.0100, L500.4050, BTS ####[facility] [address] [place], [address] Neutrophils/100 WBC (Bld) 62.1 % Normal 47-70 [facility] Comment on above: Performed By: #### L 100.0100, L500.4050, BTS ####[facility] [address] [place], [address] Nucleated RBC (Bld) [#/Vol] 0 10*3/uL Normal 0-5 [facility] Comment on above: Performed By: #### L 100.0100, L500.4050, BTS ####[facility] [address] [place], [address] Platelet mean volume (Bld) [Entitic vol] 11.2 fL Normal 6.2-12.0 [facility] Comment on above: Performed By: #### L 100.0100, L500.4050, BTS ####[facility] [address] [place], [address] Platelets (Bld) [#/Vol] 263 10*3/uL Normal 150-450 [facility] Comment on above: Performed By: #### L 100.0100, L500.4050, BTS ####[facility] [address] [place], [address] RBC (Bld) [#/Vol] 4.34 10*6/uL Normal 4.2-5.4 [facility] Comment on above: Performed By: #### L 100.0100, L500.4050, BTS ####[facility] [address] [place], [address] RDW SD 47.7 fl High 35.1-43.9 [facility] Comment on above: Performed By: #### L 100.0100, L500.4050, BTS ####[facility] [address] [place], [address] WBC (Bld) [#/Vol] 12.1 10*3/uL High 4.4-11.0 [facility] Comment on above: Performed By: #### L 100.0100, L500.4050, BTS ####[facility] [address] [place], [address] Comprehensive Metabolic Prof ilon 09-05-2024 Albumin [Mass/Vol] 3.8 g/dL Normal 3.4-4.8 [facility] Comment on above: Performed By: #### L 100.0100, L500.4050, BTS ####[place] [facility] [address] [place], [address] Albumin/Globulin [Mass ratio] 1.2 {ratio} Normal 0.9-2.4 [facility] Comment on above: Performed By: #### L 100.0100, L500.4050, BTS ####[facility] [address] [place], [address] ALK PHOS 86 U/L Normal 35-104 [facility] Comment on above: Performed By: #### L 100.0100, L500.4050, BTS ####[facility] [address] [place], [address] ALT [Catalytic activity/Vol] 5 U/L Normal <=34 [facility] Comment on above: Performed By: #### L 100.0100, L500.4050, BTS ####[facility] [address] [place], [address] AST [Catalytic activity/Vol] 15 U/L Normal <=31 [facility] Comment on above: Result Comment: Hemo lysis present, Results??could be affected. ?? Performed By: #### L 100.0100, L500.4050, BTS ####[facility] [address] [place], [address] Bilirubin [Mass/Vol] 0.39 mg/dL Normal 0.00-1.30 [facility] Comment on above: Performed By: #### L 100.0100, L500.4050, BTS ####[facility] [address] [place], [address] BUN/CRE 22.1 RATIO High 10-20 [facility] Comment on above: Performed By: #### L 100.0100, L500.4050, BTS ####[facility] [address] [place], [address] Calcium [Mass/Vol] 9.0 mg/dL Normal 7.6-11.0 [facility] Comment on above: Performed By: #### L 100.0100, L500.4050, BTS ####[facility] [address] [place], [address] Chloride [Moles/Vol] 104 mmol/L Normal 98-108 [facility] Comment on above: Performed By: #### L 100.0100, L500.4050, BTS ####[facility] [address] [place], [address] CO2 [Moles/Vol] 24.1 mmol/L Normal 21.0-32.0 [facility] Comment on above: Performed By: #### L 100.0100, L500.4050, BTS ####[facility] [address] [place], [address] Creatinine [Mass/Vol] 0.47 mg/dL Low 0.70-1.20 [facility] Comment on above: Performed By: #### L 100.0100, L500.4050, BTS ####[facility] [address] [place], [address] GAP 12 Normal 5-15 [facility] Comment on above: Performed By: #### L 100.0100, L500.4050, BTS ####[facility] [address] [place], [address] GFR/1.73 sq M.predicted among non-blacks MDRD (S/P/Bld) [Vol rate/Area] 107 mL/min/{1.73_m2} Normal >60 [facility] Comment on above: Result Comment: mL/m in/1.73m2 CKD-EPI Creatinine Equation (2020) Performed By: #### L 100.0100, L500.4050, BTS ####[facility] [address] [place], [address] Globulin (S) [Mass/Vol] 3.1 g/dL Normal 2.2-4.2 [facility] Comment on above: Performed By: #### L 100.0100, L500.4050, BTS ####[facility] [address] [place], [address] Glucose [Mass/Vol] 105 mg/dL High 70-99 [facility] Comment on above: Performed By: #### L 100.0100, L500.4050, BTS ####[facility] [address] [place], [address] Potassium [Moles/Vol] 4.2 mmol/L Normal 3.3-5.1 [facility] Comment on above: Result Comment: Hemo lysis present, Results??could be affected. ?? Performed By: #### L 100.0100, L500.4050, BTS ####[facility] [address] [place], [address] Sodium [Moles/Vol] 140 mmol/L Normal 133-145 [facility] Comment on above: Performed By: #### L 100.0100, L500.4050, BTS ####[facility] [address] [place], [address] T PROT 6.9 g/dL Normal 5.9-8.4 [facility] Comment on above: Performed By: #### L 100.0100, L500.4050, BTS ####[facility] [address] [place], [address] Urea nitrogen [Mass/Vol] 10 mg/dL Normal 4-19 [facility] Comment on above: Performed By: #### L 100.0100, L500.4050, BTS ####[facility] [address] [place], [address] HH, Hemoglobin AND Hematocri ton 09-05-2024 Hematocrit (Bld) [Volume fraction] 36.8 % Low 37-47 [facility] Comment on above: Performed By: #### L 100.0600 ####[facility] [address] [place], [address] Hemoglobin (Bld) [Mass/Vol] 12.6 g/dL Normal 12.0-15.0 [facility] Comment on above: Performed By: #### L 100.0600 ####[facility] [address] [place], [address] Type AND Screenon 09-05-2024 Ab SCREEN GEL PENDING Normal [facility] Comment on above: Order Comment: LANDON W. PREVIOUS SPECIMEN REJECTED DUE TOQNS. 09/05/2438 Felipa Sick.HGI Performed By: #### B TS ####[facility] [address] [place], [address] A1 CELL Not performed Normal [facility] Comment on above: Order Comment: HGI Result Comment: This specimen has been REJECTED due to Laboratory criteria: Quanity Not Sufficient. ED has been notified of need of recollection. 09/05/2437 Felipa Sick Performed By: #### L 100.0100, L500.4050, BTS ####[facility] [address] [place], [address] Ab SCREEN GEL Not performed Normal [facility] Comment on above: Order Comment: HGI Result Comment: This specimen has been REJECTED due to Laboratory criteria: Quanity Not Sufficient. ED has been notified of need of recollection. 09/05/2437 Felipa Sick Performed By: #### L 100.0100, L500.4050, BTS ####[facility] [address] [place], [address] ABO and Rh group Nom (Bld) Test Not Performed Normal [facility] Comment on above: Order Comment: HGI Result Comment: This specimen has been REJECTED due to Laboratory criteria: Quanity Not Sufficient. ED has been notified of need of recollection. 09/05/24836 Felipa Sick Performed By: #### L 100.0100, L500.4050, BTS ####[facility] [address] [place], [address] ANTI A Not performed Normal [facility] Comment on above: Order Comment: HGI Result Comment: This specimen has been REJECTED due to Laboratory criteria: Quanity Not Sufficient. ED has been notified of need of recollection. 09/05/24 Felipa Sick Performed By: #### L 100.0100, L500.4050, BTS ####[facility] [address] [place], [address] ANTI B Not performed Normal [facility] Comment on above: Order Comment: HGI Result Comment: This specimen has been REJECTED due to Laboratory criteria: Quanity Not Sufficient. ED has been notified of need of recollection. 09/05/24 Felipa Sick Performed By: #### L 100.0100, L500.4050, BTS ####[facility] [address] [place], [address] ANTI D Not performed Normal [facility] Comment on above: Order Comment: HGI Result Comment: This specimen has been REJECTED due to Laboratory criteria: Quanity Not Sufficient. ED has been notified of need of recollection. 09/05/24 Felipa Sick Performed By: #### L 100.0100, L500.4050, BTS ####[facility] [address] [place], [address] B CELLS Not performed Normal [facility] Comment on above: Order Comment: HGI Result Comment: This specimen has been REJECTED due to Laboratory criteria: Quanity Not Sufficient. ED has been notified of need of recollection. 09/05/2437 Felipa Sick Performed By: #### L 100.0100, L500.4050, BTS ####[facility] [address] [place], [address] [facility] 08-26-2024 CN Office Visit ([facility]WSTR ) TONYA FLETCHER ([id number]) 1960 F Date Time Provider Department 08/26/24 6:15 PM HAJA COLEY [facility] During your visit today, we recorded the following information about you: Temperature Pulse Respiration Blood pressure 96.8 degrees 82/minute 21/minute 130/78 Haja Coley MD 08/26/2024 6:45 PM Signed [facility] Subjective Tonya Fletcher is a [...] twice daily - COMPOUNDED PRESCRIPTION Light talker [employer] Pathfinder Device with Table Mount, Wheelchair Mount and carrying case Diagnosis: Cerebral Palsy 343.8 Note: patient has no functional speech abilities - WHEELCHAIR CUSHION MISC Use daily for prevention of decubitus Meds Comments as of 02/09/2019: 02/09/19 The medications are managed by this patient by: CAREGIVER Marina Lobo Problem List As Of Date 08/26/2024 Noted Resolved Cerebral palsy (HCC) [G80.9] Depression [F32.A] CONSTIPATION NOS [K59.00] 0 (more content not included)... Normal [facility] Visit Reporton 0 08-10-2024 Urgent Care Visit Report [facility] [address], [address] [place] [address] OFFICE VISIT Date of Service: 08/10/24 MR#: [id number] Acct: [id number] Name: TONYA FLETCHER Rep #: [id number] 1 : 1960 Provider: XUAN Casey Age/Sex: 64/F Location[facility] Status: Signed Intake Vital Signs 04/21/24 13:58 [...] tablet 10 mg PO DAILY@0800 ALLERGIES 07/0 06/2208/10/24 History mirtazapine 7.5 mg tablet 7.5 mg [...] 10 mg/30 mL enema (Fleet 5 mg WA DAILY PRN 07/31/2308/10 History Bisacodyl) bismuth subsalicylate [...] it was just a normal BM today. [facility] Medical History (Updated 08/10/24 @ 15:41 by [...] THC LAST (more content not included)... Normal [facility] Calculated very low density lipoprotein (VLDL) cholesterol measurementOrdered By: Michelle Marroquin on 06-11-2024 Calculated very low density lipoprotein (VLDL) cholesterol measurement 15 mg/dL 5-40 [facility] VLDL Cholesterol 15 mg/dL -40 [facility] Internal Medicine Office Vis [facility] 06-11-2024 Internal Medicine Office Visit [facility] [address] [place] [address] [address] [place] [address] OFFICE VISIT Date of Service: 06/11/24 MR#: [id number] Acct: [id number] Name: TONYA FLETCHER Rep #: [id number] : 1960 Provider: Dr. Michelle brambila MD Age/Sex: 63/F Location[facility] Status: Signed Intake Vital Signs 10/08/23 15:03 [...] 10 mg/30 mL enema (Fleet 5 mg WA DAILY PRN 07/31/2306/11 History Bisacodyl) bismuth subsalicylate [...] #21 caps 05/18/24 Rx Nurse's Note: pt's LENS SILVERER accompanied her to appt today. she reports no changes to medications, medical/surgical history or allergies. [facility] Medical History (Updated 06/11/24 @ 17:41 by [...] F who (more content not included)... Normal [facility] LDL calc ser/plasOrdered By: Michelle Marroquin on 06-11-2024 Cholesterol in LDL [Mass/Vol] 123 mg/dL [facility] Comment on above: Igyidrqtiq=326-042 m g/dL & Higher Kntg=951 mg/dL or greater LDL Cholesterol, Calculated 123 mg/dL [facility] Comment on above: Kffwtkxwdn=598-424 m g/dL & Higher Cqzl=924 mg/dL or greater Lipid Profileon 06-11-2024 CHOL:HDL 3.11 Normal [facility] Comment on above: Performed By: #### L 506.1001, L500.4100 #### [facility] [address] [place], [place], [phone] ([phone]) Cholesterol [Mass/Vol] 204 mg/dL High <=200 [facility] Comment on above: Result Comment: Chol esterol level, Desirable <200 mg/dL Borderline high cholesterol 200-239 mg/dL High cholesterol >=240 mg/dL Recommendations of the NCEP Adult Treatment Panel for the following risk-cutoff thresholds for the [place] population. Performed By: #### L 506.1001, L500.4100 #### [facility] [address] [place], [place], [id number] Cholesterol in HDL [Mass/Vol] 66 mg/dL Normal [facility] Comment on above: Result Comment: Ludmila onal Cholesterol Education Program (NCEP) guidelines: <40 mg/dL: Low HDL-cholesterol (major risk factor for CHD) >= 60 mg/dL: High HDL-cholesterol (negative risk factor for CHD) HDL-cholesterol is affected by a number of factors, e.g. smoking, exercise, hormones, sex and age. Performed By: #### L 506.1001, L500.4100 #### [facility] [address] [place], [place], [phone] ([phone]) Cholesterol in LDL [Mass/Vol] 123 mg/dL Normal [facility] Comment on above: Result Comment: Bord rrcntt=069-670 mg/dL Higher Wxlz=008 mg/dL or greater Performed By: #### L 506.1001, L500.4100 #### [facility] [address] [place], [address] Cholesterol in VLDL [Mass/Vol] 15 mg/dL Normal 5-40 [facility] Comment on above: Performed By: #### L 506.1001, L500.4100 #### [facility] [address] [place], [address] Triglyceride [Mass/Vol] 75 mg/dL Normal [facility] Comment on above: Result Comment: The drugs N-Acetylcysteine and Metamizole may falsely depress this assay. Normal range: <150 mg/dL Borderline High: 150-199 mg/dL High: 200-499 mg/dL Very High: >500 mg/dL Performed By: #### L 506.1001, L500.4100 #### [facility] [address] [place], [place], [id number] Screening total cholesterol/ high density lipoprotein (HDL) cholesterol ratioOrdered By: Michelle Marroquin on 06-11-2024 Cholesterol.total/Tanvi sterol in HDL [Mass ratio] 3.11 {ratio} [facility] Serum or plasma cholesterol in HDL measurement (mass/volume)Ordered By: Michelle Marroquin on 06-11-2024 Cholesterol in HDL [Mass/Vol] 66 mg/dL >40 [facility] Comment on above: National Cholesterol Education Program (NCEP) guidelines:<40 mg/dL: Low HDL-cholesterol (major risk factor for CHD)>= 60 mg/dL: High HDL-cholesterol (negative risk factor for CHD)HDL-cholesterol is affected by a number of factors, e.g. smoking, exercise, hormones, sex and age. Serum or plasma cholesterol measurement (mass/volume)Ordered By: Michelle Marroquin on 06-11-2024 Cholesterol [Mass/Vol] 204 mg/dL High <201 [facility] Comment on above: Cholesterol level, D esirable <200 mg/dLBorderline high cholesterol 200-239 mg/dLHigh cholesterol >=240 mg/dLRecommendations of the NCEP Adult Treatment Panel for the following risk-cutoff thresholds for the [place] population. Triglycerides measurementOrd ered By: Michelle Marroquin on 06-11-2024 Triglyceride [Mass/Vol] 75 mg/dL <199 [facility] Comment on above: The drugs N-Acetylcy steine and Metamizole may falsely depress this assay. Normal range: <150 mg/dLBorderline High: 150-199 mg/dLHigh: 200-499 mg/dLVery High: >500 mg/dL Vitamin D, 25-hydroxyOrdered By: Michelle Marroquin on 06-11-2024 Vitamin D 25-Hydroxy 35.0 ng/mL 30-100 [facility] Comment on above: Vitamin D StatusDefi ciency: <20 ng/mL (50nmol/L)Insufficiency: 20-30 ng/mL (50-75 nmol/L)Sufficiency: 30-100 ng/mL (75-250 nmol/L)Toxicity: >100 ng/mL (>250 nmol/L) Vitamin D,25 Hydroxyon 06-11 Vitamin D 25-OH 35.0 ng/mL Normal 30-100 [facility] Comment on above: Result Comment: Ct min D Status Deficiency: <20 ng/mL (50nmol/L) Insufficiency: 20-30 ng/mL (50-75 nmol/L) Sufficiency: 30-100 ng/mL (75-250 nmol/L) Toxicity: >100 ng/mL (>250 nmol/L) Performed By: #### L 506.1001, L500.4100 #### [facility] [address] [place], [place], [id number] Urgent Care Visit Reporton 0 05-18-2024 Urgent Care Visit Report [facility] [address], [address] [place], [place] [id number] OFFICE VISIT Date of Service: 05/18/24 MR#: [id number] Acct: [id number] Name: TONYA FLETCHER Rep #: [id number] : 1960 Provider: XUAN Casey Age/Sex: 63/F Location[place] [facility] Status: Signed Intake Vital Signs 04/21/24 13:58 [...] Augmentin) Adverse Reaction (Verified 04/21/24 13:52) Unknown PFSH Medical History (Updated 04/21/24 @ 14:30 by [...] does express localized tenderness to palpation. No ikna-tag-eoxsywt medications taken to assist. No other associated symptoms and no other alleviating/aggravating factors. ROS Const Constitutional: No other (As above) Exam Const General: cooperative, healthy appearing and no acute distress Orientation: alert and awake [facility] Head: normal to inspection Ears: hearing grossly [...] Valentino Signature: Date (if applicable) CC: Normal [facility] Absolute lymphocyte countOrd ered By: Michelle Marroquin on 04-21-2024 Lymphocytes Auto (Unsp spec) [#/Vol] 2.12 10*3/uL 0.83-4.51 [facility] Absolute neutrophil countOrd ered By: Michelle Marroquin on 04-21-2024 Neutrophils (Bld) [#/Vol] 2.9 10*3/uL 2.0-7.7 [facility] Albumin to globulin ratioOrd ered By: jorge Marrouqin on 04-21-2024 Albumin/Globulin [Mass ratio] 0.8 {ratio} Low 0.9-2.4 [facility]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 injury. [facility] Medical History Hypothyroidism Cerebral palsy History of [...] % eye drops 0.05 drp EACH EYE BID@08,199908/08/18 01/02/22 History DRY EYES apixaban 5 mg [...] 10 mg/30 mL enema (Fleet 5 mg WA DAILY PRN 07/31/23 Unknown History Bisacodyl) bismuth [...] Limited secondary to cerebral palsy. Obtained through prison worke (more content not included)... Normal [facility] Foot min 3 Viewson 4 Foot min 3 Views [facility] Imaging Services [address] [place] [address] Foot min 3 Views MR#: [id number] Acct: [id number] Name: TONYA FLETCHER Rep #: [id number] : 1960 F 63 From: Colten caldwell MD PCP: Dr. Michelle Marroquin MD Status: REG ER Study: Foot min 3 Views Date of Exam: 09/23/23 Exam# [id number] Ordering Dr: [place] [id number] STUDY: X-RAY - LEFT FOOT CLINICAL: Female, [...] Gregory Coleman MD; Dr. Michelle Marroquin MD Telecommunicator: Signed Normal [facility] Absolute lymphocyte countOrd ered By: Rocky Barlow on 06-19-2023 Lymphocytes Auto (Unsp spec) [#/Vol] 2.86 10*3/uL 0.83-4.51 [facility] Automated lymphocyte count a s percentage of total leukocytesOrdered By: Rocky Barlow on 06-19-2023 Lymphocytes/100 WBC Auto (Unsp spec) 41.1 % 19-41 [facility] Basophil percentageOrdered B y: Rocky Barlow on 06-19-2023 Basophils/100 WBC (Bld) 1.0 % 0-1 [facility] Bilirubin [Mass/Vol] 0.30 mg/dL 0.20-1.00 [facility] Comment on above: For patients on eltr ombopag therapy, use of Dimension [place] TBIL is not recommended. Chloride [Moles/Vol] 107 mmol/L 98-107 [facility] Cholesterol [Mass/Vol] 178 mg/dL <200 [facility] Comment on above: <200 mg/dL Desirable 200-240 mg/dL Borderline >240 mg/dL High Risk Eosinophils/100 WBC (Bld) 3.9 % 0-5 [facility] Glucose [Mass/Vol] 92 mg/dL 74-106 [facility] Hemoglobin (Bld) [Mass/Vol] 13.0 g/dL 12.0-15.0 [facility] Monocytes/100 WBC (Bld) 7.0 % 0-10 [facility] Neutrophils (Bld) [#/Vol] 3.3 10*3/uL 2.0-7.7 [facility] Neutrophils/100 WBC (Bld) 46.7 % 47-70 [facility] Potassium [Moles/Vol] 4.2 mmol/L 3.5-5.1 [facility] Comment on above: Slight Hemolysis, Re sult may be falsely increased. Protein [Mass/Vol] 7.6 g/dL 6.4-8.2 [facility] Sodium [Moles/Vol] 139 mmol/L 136-145 [facility] Triglyceride [Mass/Vol] 110 mg/dL <199 [facility] Comment on above: The drugs N-Acetylcy steine and Metamizole may falsely depress this assay.Serum Triglycerides Reference Interval Normal <150 mg/dL Borderline high 150 - 199 mg/dL High 200 - 499 mg/dL Very High > or = 500 mg/dL WBC (Bld) [#/Vol] 7.0 10*3/uL 4.4-11.0 [facility] Blood platelet adequacy dete ction by light microscopyOrdered By: Rocky Barlow on 06-19-2023 Platelets LM Ql (Bld) ADEQUATE ADEQ [facility] Determination of erythrocyte mean corpuscular volume (MCV)Ordered By: Rocky Barlow on 06-19-2023 MCV (RBC) [Entitic vol] 97.6 fL 81-99 [facility] Erythrocyte distribution wid th ratioOrdered By: Rocky Barlow on 06-19-2023 Erythrocyte distribution width (RBC) [Ratio] 13.7 % 11.6-14.6 [facility] Erythrocyte distribution wid th standard deviationOrdered By: Rocky Barlow on 06-19-2023 Erythrocyte distribution width (RBC) [Entitic vol] 48.8 fL 35.1-43.9 [facility] Hematocrit Auto (Bld) [Volum e fraction]Ordered By: Rocky Barlow 06-19-2023 Hematocrit (Bld) [Volume fraction] 41.0 % 37-47 [facility] Immature granulocytes/100 WB C Auto (Bld)Ordered By: Rocky Barlow 06-19-2023 Immature granulocytes/100 WBC (Bld) 0.300 % 0.0-0.9 [facility] Comment on above: IG% - Immature Granu locytes (promyelocytes, myelocytes and metamyelocytes) > 1% indicates that a LEFT SHIFT is Present. Laboratory - Chemistry and C hemistry - challengeOrdered By: Rocky Barlow on 06-19-2023 Albumin/Globulin [Mass ratio] 0.9 {ratio} 0.9-2.4 [facility] ALP [Catalytic activity/Vol] 82 U/L 45-117 [facility] ALT [Catalytic activity/Vol] 15 U/L 13-56 [facility] Cholesterol in HDL [Mass/Vol] 47 mg/dL >40 [facility] Comment on above: The drugs N-Acetylcy steine and Metamizole may falsely depress this assay. Reference Range HDL <40 mg/dL Low HDL Cholesterol HDL >or= 60 mg/dL High HDL Cholesterol Cholesterol in LDL [Mass/Vol] 109 mg/dL 0-130 [facility] CO2 [Moles/Vol] 28.0 mmol/L 21.0-32.0 [facility] Globulin (S) [Mass/Vol] 3.9 g/dL 2.2-4.2 [facility] Urea nitrogen/Creatinine [Mass ratio] 13.7 mg/mg 10-20 [facility] Laboratory - Hematology and Cell countsOrdered By: Rocky Barlow on 06-19-2023 Anisocytosis Ql (Bld) RARE [facility] MCH (RBC) [Entitic mass] 31.0 pg 27.0-32.0 [facility] MCHC (RBC) [Mass/Vol] 31.7 g/dL 32-36 [facility] Nucleated RBC/100 WBC (Bld) [Ratio] 0 % 0-5 [facility] Platelet mean volume (Bld) [Entitic vol] 11.2 fL 6.2-12.0 [facility] Macrocytes detectionOrdered By: Rocky Barlow on 06-19-2023 Macrocytes Ql (Bld) [facility] No Panel InformationOrdered By: Rocky Barlow on 06-19-2023 Estimated GFR (MDRD) Amer 134 mL/min >60 [facility] Comment on above: GFR Calc Estimated GFR (MDRD) Non-Af Amer 111 mL/min >60 [facility] Comment on above: Non- GFR Calc Platelet Count TNP [facility] Comment on above: Test not performedPl ease note: For this sample, a platelet estimate is provided rather than a platelet count due to platelet clumping. Other parameters associated with this sample are not affected by platelet clumping. If a more accurate platelet count is required, a redraw of the patient will be necessary.Previous reported result: 84 [id number] by: SINGH on 06/19/23:1621 Vitamin D 25-Hydroxy 50.8 ng/mL [facility] Comment on above: Vitamin D 25(OH) Sta tus Range Deficiency <20 ng/mL (50nmol/L) Insufficiency 20 - 30 ng/mL (50 - 75 nmol/L) Sufficiency 30 - 100 ng/mL (75 - 250 nmol/L) Toxicity >100 ng/mL (>250 nmol/L) VLDL Cholesterol 22 mg/dL 5-40 [facility] RBC Auto (Bld) [#/Vol]Ordere d By: Rocky Barlow on 06-19-2023 RBC (Bld) [#/Vol] 4.20 10*6/uL 4.2-5.4 [facility] RBC morphologyOrdered By: Jong Barlow on 06-19-2023 RBC morphology finding Nom (Bld) N CHROM NORMAL NORM C&C [facility] Serum or plasma calcium kamilah urement (mass/volume)Ordered By: Rocky Barlow on 06-19-2023 Calcium [Mass/Vol] 9.1 mg/dL 8.5-10.1 [facility] Serum or plasma creatinine m easurement (mass/volume)Ordered By: Rocky Barlow on 06-19-2023 Creatinine [Mass/Vol] 0.58 mg/dL 0.55-1.02 [facility] Comment on above: The validity of the calculated GFR & GFRAA in patients over 70 years has not been determined. Clinical correlation is essential. Serum or plasma thyroid stim ulating hormone (TSH) measurement (units/volume)Ordered By: Rocky Barlow on 06-19-2023 TSH Qn 2.27 uIU/mL 0.358-3.74 [facility] Serum or plasma urea nitroge n measurement (mass/volume)Ordered By: Rocky Barlow 06-19-2023 Urea nitrogen [Mass/Vol] 8 mg/dL 7-18 [facility] Thin prep Papanicolaou smear with manual screeningOrdered By: Rocky Barlow 06-19-2023 Thin prep Papanicolaou smear with manual screening 3.7 g/dL 3.2-5.0 [facility] Thin prep Papanicolaou smear with manual screening 17 U/L 15-37 [facility] Comment on above: Slight Hemolysis, Re sult may be falsely increased. Thin prep Papanicolaou smear with manual screening 4 5-15 [facility] Absolute lymphocyte countOrd ered By: Haresh Curtis on 06-13-2023 Lymphocytes Auto (Unsp spec) [#/Vol] 1.11 10*3/uL 0.83-4.51 [facility] Automated lymphocyte count a s percentage of total leukocytesOrdered By: Haresh Curtis on 06-13-2023 Lymphocytes/100 WBC Auto (Unsp spec) 12.4 % 19-41 [facility] Basophil percentageOrdered B y: Haresh Curtis on 06-13-2023 Basophils/100 WBC (Bld) 0.3 % 0-1 [facility] Bilirubin [Mass/Vol] 0.60 mg/dL 0.20-1.00 [facility] Comment on above: For patients on eltr ombopag therapy, use of Dimension [place] TBIL is not recommended. Chloride [Moles/Vol] 105 mmol/L 98-107 [facility] Eosinophils/100 WBC (Bld) 2.5 % 0-5 [facility] Glucose [Mass/Vol] 109 mg/dL 74-106 [facility] Comment on above: Fasting Glucose resu lt from 100 to 125 mg/dL suggests IMPAIRED HOMEOSTASIS per A.D.A. criteria. Hemoglobin (Bld) [Mass/Vol] 14.3 g/dL 12.0-15.0 [facility] Monocytes/100 WBC (Bld) 4.6 % 0-10 [facility] Neutrophils (Bld) [#/Vol] 7.2 10*3/uL 2.0-7.7 [facility] Neutrophils/100 WBC (Bld) 80.0 % 47-70 [facility] Potassium [Moles/Vol] 3.9 mmol/L 3.5-5.1 [facility] Protein [Mass/Vol] 8.0 g/dL 6.4-8.2 [facility] Sodium [Moles/Vol] 142 mmol/L 136-145 [facility] WBC (Bld) [#/Vol] 9.0 10*3/uL 4.4-11.0 [facility] Determination of erythrocyte mean corpuscular volume (MCV)Ordered By: Haresh Curtis on 06-13-2023 MCV (RBC) [Entitic vol] 94.4 fL 81-99 [facility] Direct bilirubinOrdered By: Haresh Curtis on 06-13-2023 Bilirubin.direct [Mass/Vol] 0.13 mg/dL 0.00-0.30 [facility] Erythrocyte distribution wid th ratioOrdered By: Haresh Curtis on 06-13-2023 Erythrocyte distribution width (RBC) [Ratio] 13.5 % 11.6-14.6 [facility] Erythrocyte distribution wid th standard deviationOrdered By: Haresh Curtis on 06-13-2023 Erythrocyte distribution width (RBC) [Entitic vol] 47.4 fL 35.1-43.9 [facility] Hematocrit Auto (Bld) [Volum e fraction]Ordered By: Haresh Curtis on 06-13-2023 Hematocrit (Bld) [Volume fraction] 43.6 % 37-47 [facility] Immature granulocytes/100 WB C Auto (Bld)Ordered By: Haresh Curtis on 06-13-2023 Immature granulocytes/100 WBC (Bld) 0.200 % 0.0-0.9 [facility] Comment on above: IG% - Immature Granu locytes (promyelocytes, myelocytes and metamyelocytes) > 1% indicates that a LEFT SHIFT is Present. Laboratory - Chemistry and C hemistry - challengeOrdered By: Haresh Curtis on 06-13-2023 ALP [Catalytic activity/Vol] 104 U/L 45-117 [facility] ALT [Catalytic activity/Vol] 14 U/L 13-56 [facility] CO2 [Moles/Vol] 32.0 mmol/L 21.0-32.0 [facility] Globulin (S) [Mass/Vol] 4.1 g/dL 2.2-4.2 [facility] Lipase [Catalytic activity/Vol] 27 U/L 13-75 [facility] Comment on above: Please note:LIPASE r evised reference range effective 22. New Lipase methodology. Expected to produce lower values than the previous assay method. NEW Reference Range: 13 - 75 U/L Urea nitrogen/Creatinine [Mass ratio] 20.5 mg/mg 10-20 [facility] Laboratory - Hematology and Cell countsOrdered By: Haresh Curtis on 06-13-2023 MCH (RBC) [Entitic mass] 31.0 pg 27.0-32.0 [facility] MCHC (RBC) [Mass/Vol] 32.8 g/dL 32-36 [facility] Nucleated RBC/100 WBC (Bld) [Ratio] 0 % 0-5 [facility] Platelet mean volume (Bld) [Entitic vol] 10.5 fL 6.2-12.0 [facility] Platelets (Bld) [#/Vol] 321 10*3/uL 150-450 [facility] No Panel InformationOrdered By: Haresh Curtis on 06-13-2023 Estimated Creatinine Clearance Calc 85.58 ml/min [facility] Estimated GFR (MDRD) Amer 134 mL/min >60 [facility] Comment on above: GFR Calc Estimated GFR (MDRD) Non-Af Amer 111 mL/min >60 [facility] Comment on above: Non- GFR Calc RBC Auto (Bld) [#/Vol]Ordere d By: Haresh Curtis on 06-13-2023 RBC (Bld) [#/Vol] 4.62 10*6/uL 4.2-5.4 [facility] Serum or plasma calcium kamilah urement (mass/volume)Ordered By: Haresh Curtis on 06-13-2023 Calcium [Mass/Vol] 9.3 mg/dL 8.5-10.1 [facility] Serum or plasma creatinine m easurement (mass/volume)Ordered By: Haresh Curtis on 06-13-2023 Creatinine [Mass/Vol] 0.59 mg/dL 0.55-1.02 [facility] Comment on above: The validity of the calculated GFR & GFRAA in patients over 70 years has not been determined. Clinical correlation is essential. Serum or plasma urea nitroge n measurement (mass/volume)Ordered By: Haresh Curtis on 06-13-2023 Urea nitrogen [Mass/Vol] 12 mg/dL 7-18 [facility] Thin prep Papanicolaou smear with manual screeningOrdered By: Haresh Curtis on 06-13-2023 Thin prep Papanicolaou smear with manual screening 3.9 g/dL 3.2-5.0 [facility] Thin prep Papanicolaou smear with manual screening 11 U/L 15-37 [facility] Thin prep Papanicolaou smear with manual screening 5 5-15 [facility] Laboratory - Microbiology an d Antimicrobial susceptibilityOrdered By: Rocky Barlow on 02-05-2023 SARS-CoV-2 (COVID-19) RNA WILLIAM+probe Ql (Unsp spec) [facility] No Panel InformationOrdered By: Rocky Barlow on 02-05-2023 Influenza Types A,B Direct FA (DENY) [facility] RSV Ag EIAOrdered By: Rocky sloan on 02-05-2023 RSV Ag Immune stain Ql (Tiss) [facility] Laboratory - Microbiology an d Antimicrobial susceptibilityOrdered By: Rocky Barlow on 12-12-2022 SARS-CoV-2 (COVID-19) RNA WILLIAM+probe Ql (Unsp spec) [facility] SARS-CoV-2 (COVID-19) RNA WILLIAM+probe Ql (Unsp spec) [facility] No Panel InformationOrdered By: Rocky Barlow on 12-12-2022 Influenza Types A,B Direct FA (DENY) [facility] Influenza Types A,B Direct FA (DENY) [facility] RSV Ag EIAOrdered By: Rocky sloan on 12-12-2022 RSV Ag Immune stain Ql (Tiss) [facility] RSV Ag Immune stain Ql (Tiss) [facility] Absolute lymphocyte countOrd ered By: Rocky Barlow on 12-11-2022 Lymphocytes Auto (Unsp spec) [#/Vol] 2.85 10*3/uL 0.83-4.51 [facility] Basophil percentageOrdered B y: Rocky Barlow on 12-11-2022 Basophils/100 WBC (Bld) 0.6 % 0-1 [facility] Chloride [Moles/Vol] 107 mmol/L 98-107 [facility] Eosinophils/100 WBC (Bld) 4.0 % 0-5 [facility] Glucose [Mass/Vol] 106 mg/dL 74-106 [facility] Comment on above: Fasting Glucose resu lt from 100 to 125 mg/dL suggests IMPAIRED HOMEOSTASIS per A.D.A. criteria. Neutrophils (Bld) [#/Vol] 5.6 10*3/uL 2.0-7.7 [facility] Neutrophils/100 WBC (Bld) 58.3 % 47-70 [facility] Potassium [Moles/Vol] 4.0 mmol/L 3.5-5.1 [facility] Sodium [Moles/Vol] 141 mmol/L 136-145 [facility] WBC (Bld) [#/Vol] 9.5 10*3/uL 4.4-11.0 [facility] Blood erythrocytes count (nu mber/volume)Ordered By: Rocky Barlow on 12-11-2022 RBC (Bld) [#/Vol] 4.40 10*6/uL 4.2-5.4 [facility] Blood hemoglobin measurement (mass/volume)Ordered By: Rocky Barlow on 12-11-2022 Hemoglobin (Bld) [Mass/Vol] 13.8 g/dL 12.0-15.0 [facility] Blood lymphocytes/100 leukoc ytesOrdered By: Rocky Barlow on 12-11-2022 Lymphocytes/100 WBC (Bld) 29.9 % 19-41 [facility] Blood monocytes/100 leukocyt esOrdered By: Rocky Barlow on 12-11-2022 Monocytes/100 WBC (Bld) 7.0 % 0-10 [facility] Blood platelet mean volumeOr dered By: Rocky Barlow on 12-11-2022 Platelet mean volume (Bld) [Entitic vol] 11.7 fL 6.2-12.0 [facility] Determination of erythrocyte mean corpuscular volume (MCV)Ordered By: Rocky Barlow on 12-11-2022 MCV (RBC) [Entitic vol] 95.7 fL 81-99 [facility] Hematocrit Auto (Bld) [Volum e fraction]Ordered By: Rocky Barlow on 12-11-2022 Hematocrit (Bld) [Volume fraction] 42.1 % 37-47 [facility] Laboratory - Chemistry and C hemistry - challengeOrdered By: Rocky Barlow on 12-11-2022 CO2 [Moles/Vol] 29.0 mmol/L 21.0-32.0 [facility] Urea nitrogen/Creatinine [Mass ratio] 12.7 mg/mg 10-20 [facility] Laboratory - Hematology and Cell countsOrdered By: Rocky Balrow on 12-11-2022 Erythrocyte distribution width (RBC) [Entitic vol] 47.8 fL 35.1-43.9 [facility] Erythrocyte distribution width (RBC) [Ratio] 13.5 % 11.6-14.6 [facility] Immature granulocytes/100 WBC (Bld) 0.200 % 0.0-0.9 [facility] Comment on above: IG% - Immature Granu locytes (promyelocytes, myelocytes and metamyelocytes) > 1% indicates that a LEFT SHIFT is Present. MCH (RBC) [Entitic mass] 31.4 pg 27.0-32.0 [facility] Nucleated RBC/100 WBC (Bld) [Ratio] 0 % 0-5 [facility] MCHC Auto (RBC) [Mass/Vol]Or dered By: Rocky Barlow on 12-11-2022 MCHC (RBC) [Mass/Vol] 32.8 g/dL 32-36 [facility] No Panel InformationOrdered By: Rocky Barlow on 12-11-2022 Estimated GFR (MDRD) Amer 173 mL/min >60 [facility] Comment on above: GFR Calc Estimated GFR (MDRD) Non-Af Amer 143 mL/min >60 [facility] Comment on above: Non- GFR Calc Platelets bldOrdered By: Rocky Barlow on 12-11-2022 Platelets (Bld) [#/Vol] 213 10*3/uL 150-450 [facility] Serum or plasma calcium kamilah urement (mass/volume)Ordered By: Rocky Barlow on 12-11-2022 Calcium [Mass/Vol] 9.2 mg/dL 8.5-10.1 [facility] Serum or plasma creatinine m easurement (mass/volume)Ordered By: Rocky Barlow on 12-11-2022 Creatinine [Mass/Vol] 0.47 mg/dL 0.55-1.02 [facility] Comment on above: The validity of the calculated GFR & GFRAA in patients over 70 years has not been determined. Clinical correlation is essential. Serum or plasma urea nitroge n measurement (mass/volume)Ordered By: Rocky Barlow on 12-11-2022 Urea nitrogen [Mass/Vol] 6 mg/dL 7-18 [facility] Thin prep Papanicolaou smear with manual screeningOrdered By: Rocky Barlow on 12-11-2022 Thin prep Papanicolaou smear with manual screening 5 5-15 [facility] Absolute lymphocyte countOrd ered By: Rocky Barlow on 12-03-2022 Lymphocytes Auto (Unsp spec) [#/Vol] 2.53 10*3/uL 0.83-4.51 [facility] Basophil percentageOrdered B y: Rocky Barlow on 12-03-2022 Basophils/100 WBC (Bld) 1.4 % 0-1 [facility] Bilirubin [Mass/Vol] 0.30 mg/dL 0.20-1.00 [facility] Comment on above: For patients on eltr ombopag therapy, use of Dimension [place] TBIL is not recommended. Chloride [Moles/Vol] 108 mmol/L 98-107 [facility] Cholesterol [Mass/Vol] 209 mg/dL <200 [facility] Comment on above: <200 mg/dL Desirable 200-240 mg/dL Borderline >240 mg/dL High Risk Eosinophils/100 WBC (Bld) 6.0 % 0-5 [facility] Glucose [Mass/Vol] 99 mg/dL 74-106 [facility] Neutrophils (Bld) [#/Vol] 2.8 10*3/uL 2.0-7.7 [facility] Neutrophils/100 WBC (Bld) 44.4 % 47-70 [facility] Potassium [Moles/Vol] 3.7 mmol/L 3.5-5.1 [facility] Protein [Mass/Vol] 7.3 g/dL 6.4-8.2 [facility] Sodium [Moles/Vol] 142 mmol/L 136-145 [facility] Triglyceride [Mass/Vol] 146 mg/dL <199 [facility] Comment on above: The drugs N-Acetylcy steine and Metamizole may falsely depress this assay.Serum Triglycerides Reference Interval Normal <150 mg/dL Borderline high 150 - 199 mg/dL High 200 - 499 mg/dL Very High > or = 500 mg/dL WBC (Bld) [#/Vol] 6.3 10*3/uL 4.4-11.0 [facility] Blood erythrocytes count (nu mber/volume)Ordered By: Rocky Barlow on 12-03-2022 RBC (Bld) [#/Vol] 4.59 10*6/uL 4.2-5.4 [facility] Blood hemoglobin measurement (mass/volume)Ordered By: Rocky Barlow on 12-03-2022 Hemoglobin (Bld) [Mass/Vol] 14.1 g/dL 12.0-15.0 [facility] Blood lymphocytes/100 leukoc ytesOrdered By: [facility] Lymphocytes/100 WBC (Bld) 40.1 % 19-41 [facility] Blood monocytes/100 leukocyt esOrdered By: [facility] on 12-03-2022 Monocytes/100 WBC (Bld) 7.9 % 0-10 [facility] Blood platelet mean volumeOr dered By: Rocky Cain on 12-03-2022 Platelet mean volume (Bld) [Entitic vol] 11.8 fL 6.2-12.0 [facility] Determination of erythrocyte mean corpuscular volume (MCV)Ordered By: Rocky Barlow on 12-03-2022 MCV (RBC) [Entitic vol] 96.9 fL 81-99 [facility] Hematocrit Auto (Bld) [Volum e fraction][facility]: [facility] on 12-[facility]22 Hematocrit (Bld) [Volume fraction] 44.5 % 37-47 [facility] Laboratory - Chemistry and C hemistry - challengeOrdered By: Rocky Barlow on 12-03-2022 ALP [Catalytic activity/Vol] 115 U/L 45-117 [facility] ALT [Catalytic activity/Vol] 18 U/L 13-56 [facility] CO2 [Moles/Vol] 29.0 mmol/L 21.0-32.0 [facility] Globulin (S) [Mass/Vol] 3.9 g/dL 2.2-4.2 [facility] Urea nitrogen/Creatinine [Mass ratio] 10.5 mg/mg 10-20 [facility] Laboratory - Hematology and Cell countsOrdered By: Rocky Cain on 12-03-2022 Erythrocyte distribution width (RBC) [Entitic vol] 47.1 fL 35.1-43.9 [facility] Erythrocyte distribution width (RBC) [Ratio] 13.2 % 11.6-14.6 [facility] Immature granulocytes/100 WBC (Bld) 0.200 % 0.0-0.9 [facility] Comment on above: IG% - Immature Granu locytes (promyelocytes, myelocytes and metamyelocytes) > 1% indicates that a LEFT SHIFT is Present. MCH (RBC) [Entitic mass] 30.7 pg 27.0-32.0 [facility] Nucleated RBC/100 WBC (Bld) [Ratio] 0 % 0-5 [facility] MCHC Auto (RBC) [Mass/Vol]Or dered By: Rocky Barlow on 12-03-2022 MCHC (RBC) [Mass/Vol] 31.7 g/dL 32-36 [facility] No Panel InformationOrdered By: Rocky Barlow on 12-03-2022 Estimated GFR (MDRD) Amer 138 mL/min >60 [facility] Comment on above: GFR Calc Estimated GFR (MDRD) Non-Af Amer 114 mL/min >60 [facility] Comment on above: Non- GFR Calc Thyroid Stimulating Hormone (TSH) 1.37 uIU/mL 0.358-3.74 [facility] Platelets bldOrdered By: Rocky Barlow on 12-03-2022 Platelets (Bld) [#/Vol] 238 10*3/uL 150-450 [facility] Serum or plasma albumin kamilah urement (mass/volume)Ordered By: Rocky Barlow on 12-03-2022 Albumin [Mass/Vol] 3.4 g/dL 3.2-5.0 [facility] Serum or plasma albumin/glob ulin mass ratioOrdered By: Rocky Barlow on 12-03-2022 Albumin/Globulin [Mass ratio] 0.9 {ratio} 0.9-2.4 [facility] Serum or plasma calcium kamilah urement (mass/volume)Ordered By: Rocky Barlow on 12-03-2022 Calcium [Mass/Vol] 8.7 mg/dL 8.5-10.1 [facility] Serum or plasma cholesterol in HDL measurement (mass/volume)Ordered By: Rocky Barlow on 12-03-2022 Cholesterol in HDL [Mass/Vol] 56 mg/dL >40 [facility] Comment on above: The drugs N-Acetylcy steine and Metamizole may falsely depress this assay. Reference Range HDL <40 mg/dL Low HDL Cholesterol HDL >or= 60 mg/dL High HDL Cholesterol Serum or plasma cholesterol in VLDL measurement (mass/volume)Ordered By: Rocky Barlow on 12-03-2022 Cholesterol in VLDL [Mass/Vol] 29 mg/dL 5-40 [facility] Serum or plasma creatinine m easurement (mass/volume)Ordered By: Rocky Barlow on 12-03-2022 Creatinine [Mass/Vol] 0.57 mg/dL 0.55-1.02 [facility] Comment on above: The validity of the calculated GFR & GFRAA in patients over 70 years has not been determined. Clinical correlation is essential. Serum or plasma low density lipoprotein (LDL) cholesterol measurement (mass/volume)Ordered By: Rocky Barlow on 12-03-2022 Cholesterol in LDL [Mass/Vol] 124 mg/dL 0-130 [facility] Serum or plasma urea nitroge n measurement (mass/volume)Ordered By: Rocky Barlow on 12-03-2022 Urea nitrogen [Mass/Vol] 6 mg/dL 7-18 [facility] Thin prep Papanicolaou smear with manual screeningOrdered By: Rocky Barlow on 12-03-2022 Thin prep Papanicolaou smear with manual screening 11 U/L 15-37 [facility] Thin prep Papanicolaou smear with manual screening 5 5-15 [facility] Absolute lymphocyte countOrd ered By: Raul Viveros on 08-15-2022 Lymphocytes Auto (Unsp spec) [#/Vol] 2.64 10*3/uL 0.83-4.51 [facility] Basophil percentageOrdered B y: Raul Viveros on 08-15-2022 Basophil percentage 0 SEEN /hpf 0-5 [facility] Basophils/100 WBC (Bld) 0.5 % 0-1 [facility] Chloride [Moles/Vol] 109 mmol/L 98-107 [facility] Eosinophils/100 WBC (Bld) 3.2 % 0-5 [facility] Glucose [Mass/Vol] 118 mg/dL 74-106 [facility] Comment on above: Fasting Glucose resu lt from 100 to 125 mg/dL suggests IMPAIRED HOMEOSTASIS per A.D.A. criteria. Lactate [Moles/Vol] 4.6 mmol/L 0.4-2.0 [facility] Comment on above: Critical Result(s) C alled at: 17:45:37 08/15/2022 by: Halie Espinosa. Results read back by same. Neutrophils (Bld) [#/Vol] 5.7 10*3/uL 2.0-7.7 [facility] Neutrophils/100 WBC (Bld) 59.8 % 47-70 [facility] Potassium [Moles/Vol] 3.2 mmol/L 3.5-5.1 [facility] Sodium [Moles/Vol] 142 mmol/L 136-145 [facility] WBC (Bld) [#/Vol] 9.6 10*3/uL 4.4-11.0 [facility] Bilirubin Test strip Ql (U)O rdered By: Raul Viveros on 08-15-2022 Bilirubin Ql (U) Negative Negative [facility] Blood erythrocytes count (nu mber/volume)Ordered By: Raul Viveros on 08-15-2022 RBC (Bld) [#/Vol] 4.49 10*6/uL 4.2-5.4 [facility] Blood hemoglobin measurement (mass/volume)Ordered By: Raul Viveros on 08-15-2022 Hemoglobin (Bld) [Mass/Vol] 14.3 g/dL 12.0-15.0 [facility] Blood lymphocytes/100 leukoc ytesOrdered By: Raul Viveros on 08-15-2022 Lymphocytes/100 WBC (Bld) 27.6 % 19-41 [facility] Blood monocytes/100 leukocyt esOrdered By: Raul Viveros on 08-15-2022 Monocytes/100 WBC (Bld) 8.7 % 0-10 [facility] Blood platelet mean volumeOr dered By: Raul Viveros on 08-15-2022 Platelet mean volume (Bld) [Entitic vol] 11.1 fL 6.2-12.0 [facility] Determination of erythrocyte mean corpuscular volume (MCV)Ordered By: Raul Viveros on 08-15-2022 MCV (RBC) [Entitic vol] 97.6 fL 81-99 [facility] Hematocrit Auto (Bld) [Volum e fraction]Ordered By: Raul Viveros on 08-15-2022 Hematocrit (Bld) [Volume fraction] 43.8 % 37-47 [facility] Influenza virus A and B and SARS-CoV-2 (COVID-19) Ag panel - Upper respiratory specimOrdered By: Raul Viveros on 08-15-2022 SARS-CoV-2 (COVID-19) RNA WILLIAM+probe Ql (Resp) [facility] Ketones Test strip Ql (U)Ord ered By: Raul Viveros on 08-15-2022 Ketones Ql (U) 5 mg/dl Negative [facility] Laboratory - Chemistry and C hemistry - challengeOrdered By: [facility] on 08-15-2022 CO2 [Moles/Vol] 28.0 mmol/L 21.0-32.0 [facility] Urea nitrogen/Creatinine [Mass ratio] 13.5 mg/mg 10-20 [facility] Laboratory - Hematology and Cell countsOrdered By: Raul Viveros on 08-15-2022 Erythrocyte distribution width (RBC) [Entitic vol] 49.0 fL 35.1-43.9 [facility] Erythrocyte distribution width (RBC) [Ratio] 13.5 % 11.6-14.6 [facility] Immature granulocytes/100 WBC (Bld) 0.200 % 0.0-0.9 [facility] Comment on above: IG% - Immature Granu locytes (promyelocytes, myelocytes and metamyelocytes) > 1% indicates that a LEFT SHIFT is Present. MCH (RBC) [Entitic mass] 31.8 pg 27.0-32.0 [facility] Nucleated RBC/100 WBC (Bld) [Ratio] 0 % 0-5 [facility] Laboratory - Microbiology an d Antimicrobial susceptibilityOrdered By: Raul Viveros on 08-15-2022 Bacteria identified Cx Nom (Bld) No growth in 5 days. [facility] MCHC Auto (RBC) [Mass/Vol]Or dered By: Raul Viveros on 08-15-2022 MCHC (RBC) [Mass/Vol] 32.6 g/dL 32-36 [facility] Mucus LM Ql (Urine sed)Order ed By: Raul Gradyaidan on 08-15-2022 Mucus Ql (Urine sed) 0 SEEN /hpf [facility] Nitrite Test strip Ql (U)Ord ered By: Rem Ungaidan on 08-15-2022 Nitrite Ql (U) Negative Negative [facility] No Panel InformationOrdered By: Remus Gradyaidan on 08-15-2022 Estimated Creatinine Clearance Calc 71.92 ml/min [facility] Estimated GFR (MDRD) Amer 132 mL/min >60 [facility] Comment on above: GFR Calc Estimated GFR (MDRD) Non-Af Amer 109 mL/min >60 [facility] Comment on above: Non- GFR Calc Platelets bldOrdered By: Danette ruano Jackeline on 08-15-2022 Platelets (Bld) [#/Vol] 284 10*3/uL 150-450 [facility] Protein Test strip Ql (U)Ord ered By: Rem Ungaidan on 08-15-2022 Protein Ql (U) Negative Negative [facility] Serum or plasma calcium kamilah urement (mass/volume)Ordered By: Remus Gradyaidan on 08-15-2022 Calcium [Mass/Vol] 9.0 mg/dL 8.5-10.1 [facility] Serum or plasma creatinine m easurement (mass/volume)Ordered By: Raul Gradyaidan on 08-15-2022 Creatinine [Mass/Vol] 0.59 mg/dL 0.55-1.02 [facility] Comment on above: The validity of the calculated GFR & GFRAA in patients over 70 years has not been determined. Clinical correlation is essential. Serum or plasma urea nitroge n measurement (mass/volume)Ordered By: Raul Gradyaidan on 08-15-2022 Urea nitrogen [Mass/Vol] 8 mg/dL 7-18 [facility] Squamous epithelial cells de tection in urine sediment by light microscopyOrdered By: Danette Ysabelaidan on 08-15-2022 Epithelial cells.squamous LM Ql (Urine sed) 0 SEEN /hpf 5-10 [facility] Thin prep Papanicolaou smear with manual screeningOrdered By: Remus Viveros on 08-15-2022 Thin prep Papanicolaou smear with manual screening 5 5-15 [facility] Urine blood detectionOrdered By: Raul Viveros on 08-15-2022 RBC Ql (U) Negative Negative [facility] RBC Ql (U) 0 SEEN /hpf 0-5 [facility] Urine clarityOrdered By: Danette us Jackeline on 08-15-2022 Clarity (U) Clear Clear [facility] Urine color determinationOrd ered By: Raul Viveros on 08-15-2022 Color (U) Yellow Yellow [facility] Urine glucose detectionOrder ed By: Raul Viveros on 08-15-2022 Glucose Ql (U) Normal mg/dl Normal [facility] Urine leukocyte esterase det ection by dipstickOrdered By: Raul Viveros on 08-15-2022 Leukocyte esterase Test strip Ql (U) Negative Negative [facility] Urine pHOrdered By: Raul Samuel gur on 08-15-2022 pH (U) 5.0 [pH] 5.0 - 8.0 [facility] Urine sediment bacteria coun t by microscopy (number/high power field)Ordered By: Raul Viveros on 08-15-2022 Bacteria LM.HPF (Urine sed) [#/Area] 0 /[HPF] None Seen [facility] Urine specific gravity measu rementOrdered By: Raul Viveros on 08-15-2022 Specific gravity (U) [Rel density] 1.015 1.002-1.030 [facility] Urobilinogen Auto test strip Ql (U)Ordered By: Raul Viveros on 08-15-2022 Urobilinogen Ql (U) Normal mg/dl Normal [facility] Absolute lymphocyte countOrd ered By: Dr. Barlow on 05-30-2022 Lymphocytes Auto (Unsp spec) [#/Vol] 3.00 10*3/uL 0.83-4.51 [facility] Basophil percentageOrdered B y: Dr. Barlow on 05-30-2022 Basophils/100 WBC (Bld) 0.8 % 0-1 [facility] Bilirubin [Mass/Vol] 0.40 mg/dL 0.20-1.00 [facility] Comment on above: For patients on eltr ombopag therapy, use of Dimension [place] TBIL is not recommended. Chloride [Moles/Vol] 105 mmol/L 98-107 [facility] Cholesterol [Mass/Vol] 219 mg/dL <200 [facility] Comment on above: <200 mg/dL Desirable 200-240 mg/dL Borderline >240 mg/dL High Risk Eosinophils/100 WBC (Bld) 6.3 % 0-5 [facility] Glucose [Mass/Vol] 87 mg/dL 74-106 [facility] Neutrophils (Bld) [#/Vol] 3.6 10*3/uL 2.0-7.7 [facility] Neutrophils/100 WBC (Bld) 47.3 % 47-70 [facility] Potassium [Moles/Vol] 3.8 mmol/L 3.5-5.1 [facility] Comment on above: Moderate Hemolysis, Result may be falsely increased. Protein [Mass/Vol] 7.5 g/dL 6.4-8.2 [facility] Sodium [Moles/Vol] 140 mmol/L 136-145 [facility] Triglyceride [Mass/Vol] 66 mg/dL <199 [facility] Comment on above: The drugs N-Acetylcy steine and Metamizole may falsely depress this assay.Serum Triglycerides Reference Interval Normal <150 mg/dL Borderline high 150 - 199 mg/dL High 200 - 499 mg/dL Very High > or = 500 mg/dL WBC (Bld) [#/Vol] 7.6 10*3/uL 4.4-11.0 [facility] Blood erythrocytes count (nu mber/volume)Ordered By: Dr. Barlow on 05-30-2022 RBC (Bld) [#/Vol] 4.52 10*6/uL 4.2-5.4 [facility] Blood hemoglobin measurement (mass/volume)Ordered By: Dr. Barlow on 05-30-2022 Hemoglobin (Bld) [Mass/Vol] 14.1 g/dL 12.0-15.0 [facility] Blood lymphocytes/100 leukoc ytesOrdered By: Dr. Barlow on 05-30-2022 Lymphocytes/100 WBC (Bld) 39.3 % 19-41 [facility] Blood monocytes/100 leukocyt esOrdered By: Dr. Barlow on 05-30-2022 Monocytes/100 WBC (Bld) 6.2 % 0-10 [facility] Blood platelet mean volumeOr dered By: Dr. Barlow on 05-30-2022 Platelet mean volume (Bld) [Entitic vol] 11.0 fL 6.2-12.0 [facility] Determination of erythrocyte mean corpuscular volume (MCV)Ordered By: Dr. Barlow on 05-30-2022 MCV (RBC) [Entitic vol] 96.0 fL 81-99 [facility] Hematocrit Auto (Bld) [Volum e fraction]Ordered By: Dr. Barlow on 05-30-2022 Hematocrit (Bld) [Volume fraction] 43.4 % 37-47 [facility] Laboratory - Chemistry and C hemistry - challengeOrdered By: Dr. Barlow on 05-30-2022 ALP [Catalytic activity/Vol] 100 U/L 45-117 [facility] ALT [Catalytic activity/Vol] 20 U/L 13-56 [facility] CO2 [Moles/Vol] 26.0 mmol/L 21.0-32.0 [facility] Globulin (S) [Mass/Vol] 3.8 g/dL 2.2-4.2 [facility] Urea nitrogen/Creatinine [Mass ratio] 12.8 mg/mg 10-20 [facility] Laboratory - Hematology and Cell countsOrdered By: Dr. Barlow on 05-30-2022 Erythrocyte distribution width (RBC) [Entitic vol] 49.1 fL 35.1-43.9 [facility] Erythrocyte distribution width (RBC) [Ratio] 13.8 % 11.6-14.6 [facility] Immature granulocytes/100 WBC (Bld) 0.100 % 0.0-0.9 [facility] Comment on above: IG% - Immature Granu locytes (promyelocytes, myelocytes and metamyelocytes) > 1% indicates that a LEFT SHIFT is Present. MCH (RBC) [Entitic mass] 31.2 pg 27.0-32.0 [facility] Nucleated RBC/100 WBC (Bld) [Ratio] 0 % 0-5 [facility] MCHC Auto (RBC) [Mass/Vol]Or dered By: Dr. Barlow on 05-30-2022 MCHC (RBC) [Mass/Vol] 32.5 g/dL 32-36 [facility] No Panel InformationOrdered By: Dr. Barlow on 05-30-2022 Estimated GFR (MDRD) Amer 145 mL/min >60 [facility] Comment on above: GFR Calc Estimated GFR (MDRD) Non-Af Amer 120 mL/min >60 [facility] Comment on above: Non- GFR Calc Thyroid Stimulating Hormone (TSH) 1.39 uIU/mL 0.358-3.74 [facility] Vitamin D 25-Hydroxy 48.5 ng/mL [facility] Comment on above: Vitamin D 25(OH) Sta tus Range Deficiency <20 ng/mL (50nmol/L) Insufficiency 20 - 30 ng/mL (50 - 75 nmol/L) Sufficiency 30 - 100 ng/mL (75 - 250 nmol/L) Toxicity >100 ng/mL (>250 nmol/L) Platelets bldOrdered By: Dr. Barlow on 05-30-2022 Platelets (Bld) [#/Vol] 311 10*3/uL 150-450 [facility] Serum or plasma albumin kamilah urement (mass/volume)Ordered By: Dr. Barlow on 05-30-2022 Albumin [Mass/Vol] 3.7 g/dL 3.2-5.0 [facility] Serum or plasma albumin/glob ulin mass ratioOrdered By: Dr. Barlow on 05-30-2022 Albumin/Globulin [Mass ratio] 1.0 {ratio} 0.9-2.4 [facility] Serum or plasma calcium kamilah urement (mass/volume)Ordered By: Dr. Barlow on 05-30-2022 Calcium [Mass/Vol] 9.2 mg/dL 8.5-10.1 [facility] Serum or plasma cholesterol in HDL measurement (mass/volume)Ordered By: Dr. Barlow on 05-30-2022 Cholesterol in HDL [Mass/Vol] 73 mg/dL >40 [facility] Comment on above: The drugs N-Acetylcy steine and Metamizole may falsely depress this assay. Reference Range HDL <40 mg/dL Low HDL Cholesterol HDL >or= 60 mg/dL High HDL Cholesterol Serum or plasma cholesterol in VLDL measurement (mass/volume)Ordered By: Dr. Barlow on 05-30-2022 Cholesterol in VLDL [Mass/Vol] 13 mg/dL 5-40 [facility] Serum or plasma creatinine m easurement (mass/volume)Ordered By: Dr. Barlow on 05-30-2022 Creatinine [Mass/Vol] 0.55 mg/dL 0.55-1.02 [facility] Comment on above: The validity of the calculated GFR & GFRAA in patients over 70 years has not been determined. Clinical correlation is essential. Serum or plasma low density lipoprotein (LDL) cholesterol measurement (mass/volume)Ordered By: Dr. Barlow on 05-30-2022 Cholesterol in LDL [Mass/Vol] 133 mg/dL 0-130 [facility] Serum or plasma urea nitroge n measurement (mass/volume)Ordered By: Dr. Barlow on 05-30-2022 Urea nitrogen [Mass/Vol] 7 mg/dL 7-18 [facility] Thin prep Papanicolaou smear with manual screeningOrdered By: Dr. Barlow on 05-30-2022 Thin prep Papanicolaou smear with manual screening 20 U/L 15-37 [facility] Comment on above: Moderate Hemolysis, Result may be falsely increased. Thin prep Papanicolaou smear with manual screening 9 5-15 [facility] Laboratory - Microbiology an d Antimicrobial susceptibilityOrdered By: Dr. Barlow on 03-29-2022 SARS-CoV-2 (COVID-19) RNA WILLIAM+probe Ql (Unsp spec) Not detected Not Detect [facility] Comment on above: Normal Reference Ran ge: [...] 03-29-2022 Influenza Types A,B Direct FA (DENY) [facility] RSV Ag EIAOrdered By: Dr. Deisi sloan on 03-29-2022 RSV Ag Immune stain Ql (Tiss) [facility] Absolute lymphocyte countOrd ered By: Dr. Palomino on 03-21-2022 Lymphocytes Auto (Unsp spec) [#/Vol] 2.24 10*3/uL 0.83-4.51 [facility] [facility] Basophil percentageOrdered B y: Dr. Palomino on 03-21-2022 Basophils/100 WBC (Bld) 0.5 % 0-1 [facility] Bilirubin [Mass/Vol] 0.30 mg/dL 0.20-1.00 [facility] Comment on above: For patients on eltr ombopag therapy, use of Dimension [place] TBIL is not recommended. Chloride [Moles/Vol] 107 mmol/L 98-107 [facility] Eosinophils/100 WBC (Bld) 2.5 % 0-5 [facility] Glucose [Mass/Vol] 118 mg/dL 74-106 [facility] Comment on above: Fasting Glucose resu lt from 100 to 125 mg/dL suggests IMPAIRED HOMEOSTASIS per A.D.A. criteria. Neutrophils (Bld) [#/Vol] 8.8 10*3/uL 2.0-7.7 [facility] Neutrophils/100 WBC (Bld) 70.5 % 47-70 [facility] Potassium [Moles/Vol] 3.7 mmol/L 3.5-5.1 [facility] Protein [Mass/Vol] 7.9 g/dL 6.4-8.2 [facility] Sodium [Moles/Vol] 142 mmol/L 136-145 [facility] WBC (Bld) [#/Vol] 12.5 10*3/uL 4.4-11.0 [facility] Blood erythrocytes count (nu mber/volume)Ordered By: Dr. Palomino on 03-21-2022 RBC (Bld) [#/Vol] 4.52 10*6/uL 4.2-5.4 [facility] Blood hemoglobin measurement (mass/volume)Ordered By: Dr. Palomino on 03-21-2022 Hemoglobin (Bld) [Mass/Vol] 14.1 g/dL 12.0-15.0 [facility] Blood lymphocytes/100 leukoc ytesOrdered By: Dr. Palomino on 03-21-2022 Lymphocytes/100 WBC (Bld) 17.9 % 19-41 [facility] Blood monocytes/100 leukocyt esOrdered By: Dr. Palomino on 03-21-2022 Monocytes/100 WBC (Bld) 8.3 % 0-10 [facility] Blood platelet mean volumeOr dered By: Dr. Palomino on 03-21-2022 Platelet mean volume (Bld) [Entitic vol] 10.6 fL 6.2-12.0 [facility] Determination of erythrocyte mean corpuscular volume (MCV)Ordered By: Dr. Palomino on 03-21-2022 MCV (RBC) [Entitic vol] 96.7 fL 81-99 [facility] Hematocrit Auto (Bld) [Volum e fraction]Ordered By: Dr. Palomino on 03-21-2022 Hematocrit (Bld) [Volume fraction] 43.7 % 37-47 [facility] Influenza virus A and B and SARS-CoV-2 (COVID-19) Ag panel - Upper respiratory specimOrdered By: Dr. Palomino on 03-21-2022 SARS-CoV-2 (COVID-19) RNA WILLIAM+probe Ql (Resp) [facility] Laboratory - Chemistry and C hemistry - challengeOrdered By: Dr. Palomino on 03-21-2022 ALP [Catalytic activity/Vol] 109 U/L 45-117 [facility] ALT [Catalytic activity/Vol] 15 U/L 13-56 [facility] CO2 [Moles/Vol] 31.0 mmol/L 21.0-32.0 [facility] Globulin (S) [Mass/Vol] 4.2 g/dL 2.2-4.2 [facility] Urea nitrogen/Creatinine [Mass ratio] 14.4 mg/mg 10-20 [facility] Laboratory - Hematology and Cell countsOrdered By: Dr. Palomino on 03-21-2022 Erythrocyte distribution width (RBC) [Entitic vol] 49.3 fL 35.1-43.9 [facility] Erythrocyte distribution width (RBC) [Ratio] 13.7 % 11.6-14.6 [facility] Immature granulocytes/100 WBC (Bld) 0.300 % 0.0-0.9 [facility] Comment on above: IG% - Immature Granu locytes (promyelocytes, myelocytes and metamyelocytes) > 1% indicates that a LEFT SHIFT is Present. MCH (RBC) [Entitic mass] 31.2 pg 27.0-32.0 [facility] Nucleated RBC/100 WBC (Bld) [Ratio] 0 % 0-5 [facility] MCHC Auto (RBC) [Mass/Vol]Or dered By: Dr. Palomino on 03-21-2022 MCHC (RBC) [Mass/Vol] 32.3 g/dL 32-36 [facility] No Panel InformationOrdered By: Dr. Palomino on 03-21-2022 Estimated Creatinine Clearance Calc 82.08 ml/min [facility] Estimated GFR (MDRD) Amer 143 mL/min >60 [facility] Comment on above: GFR Calc Estimated GFR (MDRD) Non-Af Amer 119 mL/min >60 [facility] Comment on above: Non- GFR Calc Platelets bldOrdered By: Dr. Palomino on 03-21-2022 Platelets (Bld) [#/Vol] 278 10*3/uL 150-450 [facility] Serum or plasma albumin kamilah urement (mass/volume)Ordered By: Dr. Palomino on 03-21-2022 Albumin [Mass/Vol] 3.7 g/dL 3.2-5.0 [facility] Serum or plasma albumin/glob ulin mass ratioOrdered By: Dr. Palomino on 03-21-2022 Albumin/Globulin [Mass ratio] 0.9 {ratio} 0.9-2.4 [facility] Serum or plasma calcium kamilah urement (mass/volume)Ordered By: Dr. Palomino on 03-21-2022 Calcium [Mass/Vol] 9.4 mg/dL 8.5-10.1 [facility] Serum or plasma creatinine m easurement (mass/volume)Ordered By: Dr. Palomino on 03-21-2022 Creatinine [Mass/Vol] 0.55 mg/dL 0.55-1.02 [facility] Comment on above: The validity of the calculated GFR & GFRAA in patients over 70 years has not been determined. Clinical correlation is essential. Serum or plasma urea nitroge n measurement (mass/volume)Ordered By: Dr. Palomino on 03-21-2022 Urea nitrogen [Mass/Vol] 8 mg/dL 7-18 [facility] Thin prep Papanicolaou smear with manual screeningOrdered By: Dr. Palomino on 03-21-2022 Thin prep Papanicolaou smear with manual screening 10 U/L 15-37 [facility] Thin prep Papanicolaou smear with manual screening 4 5-15 [facility] Laboratory - Microbiology an d Antimicrobial susceptibilityon 01-21-2022 SARS-CoV-2 (COVID-19) RNA WILLIAM+probe Ql (Unsp spec) Not detected [facility] No Panel Informationon 01-21 Influenza Types A,B Rapid (Clinic) Not detected [facility] Absolute lymphocyte countOrd ered By: Dr. Ann on 01-03-2022 Lymphocytes Auto (Unsp spec) [#/Vol] 1.37 10*3/uL 0.83-4.51 [facility] Basophil percentageOrdered B y: Dr. Ann on 01-03-2022 Basophils/100 WBC (Bld) 0.2 % 0-1 [facility] Chloride [Moles/Vol] 108 mmol/L 98-107 [facility] Eosinophils/100 WBC (Bld) 0.0 % 0-5 [facility] Glucose [Mass/Vol] 124 mg/dL 74-106 [facility] Comment on above: Fasting Glucose resu lt from 100 to 125 mg/dL suggests IMPAIRED HOMEOSTASIS per A.D.A. criteria. Neutrophils (Bld) [#/Vol] 7.9 10*3/uL 2.0-7.7 [facility] Neutrophils/100 WBC (Bld) 79.9 % 47-70 [facility] Potassium [Moles/Vol] 3.8 mmol/L 3.5-5.1 [facility] Sodium [Moles/Vol] 143 mmol/L 136-145 [facility] WBC (Bld) [#/Vol] 9.9 10*3/uL 4.4-11.0 [facility] Blood erythrocytes count (nu mber/volume)Ordered By: Dr. Ann on 01-03-2022 RBC (Bld) [#/Vol] 4.49 10*6/uL 4.2-5.4 [facility] Blood hemoglobin measurement (mass/volume)Ordered By: Dr. Ann on 01-03-2022 Hemoglobin (Bld) [Mass/Vol] 14.5 g/dL 12.0-15.0 [facility] Blood lymphocytes/100 leukoc ytesOrdered By: Dr. Ann on 01-03-2022 Lymphocytes/100 WBC (Bld) 13.8 % 19-41 [facility] Blood monocytes/100 leukocyt esOrdered By: Dr. Ann on 01-03-2022 Monocytes/100 WBC (Bld) 5.5 % 0-10 [facility] Blood platelet mean volumeOr dered By: Dr. Ann on 01-03-2022 Platelet mean volume (Bld) [Entitic vol] 10.9 fL 6.2-12.0 [facility] Determination of erythrocyte mean corpuscular volume (MCV)Ordered By: Dr. Ann on 01-03-2022 MCV (RBC) [Entitic vol] 96.0 fL 81-99 [facility] Hematocrit Auto (Bld) [Volum e fraction]Ordered By: Dr. Ann on 01-03-2022 Hematocrit (Bld) [Volume fraction] 43.1 % 37-47 [facility] Laboratory - Chemistry and C hemistry - challengeOrdered By: Dr. Ann on 01-03-2022 CO2 [Moles/Vol] 28.0 mmol/L 21.0-32.0 [facility] Urea nitrogen/Creatinine [Mass ratio] 27.4 mg/mg 10-20 [facility] Laboratory - Hematology and Cell countsOrdered By: Dr. Ann on 01-03-2022 Erythrocyte distribution width (RBC) [Entitic vol] 51.5 fL 35.1-43.9 [facility] Erythrocyte distribution width (RBC) [Ratio] 14.5 % 11.6-14.6 [facility] Immature granulocytes/100 WBC (Bld) 0.600 % 0.0-0.9 [facility] Comment on above: IG% - Immature Granu locytes (promyelocytes, myelocytes and metamyelocytes) > 1% indicates that a LEFT SHIFT is Present. MCH (RBC) [Entitic mass] 32.3 pg 27.0-32.0 [facility] Nucleated RBC/100 WBC (Bld) [Ratio] 0 % 0-5 [facility] MCHC Auto (RBC) [Mass/Vol]Or dered By: Dr. Ann on 01-03-2022 MCHC (RBC) [Mass/Vol] 33.6 g/dL 32-36 [facility] No Panel InformationOrdered By: Dr. Ann on 01-03-2022 Estimated Creatinine Clearance Calc 78.13 ml/min [facility] Estimated GFR (MDRD) Amer 146 mL/min >60 [facility] Comment on above: GFR Calc Estimated GFR (MDRD) Non-Af Amer 120 mL/min >60 [facility] Comment on above: Non- GFR Calc Platelets bldOrdered By: Dr. Ann on 01-03-2022 Platelets (Bld) [#/Vol] 277 10*3/uL 150-450 [facility] Serum or plasma calcium kamilah urement (mass/volume)Ordered By: Dr. Ann on 01-03-2022 Calcium [Mass/Vol] 9.6 mg/dL 8.5-10.1 [facility] Serum or plasma creatinine m easurement (mass/volume)Ordered By: Dr. Ann on 01-03-2022 Creatinine [Mass/Vol] 0.55 mg/dL 0.55-1.02 [facility] Comment on above: The validity of the calculated GFR & GFRAA in patients over 70 years has not been determined. Clinical correlation is essential. Serum or plasma urea nitroge n measurement (mass/volume)Ordered By: Dr. Ann on 01-03-2022 Urea nitrogen [Mass/Vol] 15 mg/dL 7-18 [facility] Thin prep Papanicolaou smear with manual screeningOrdered By: Dr. Ann on 01-03-2022 Thin prep Papanicolaou smear with manual screening 7 5-15 [facility] Basophil percentageOrdered B y: Dr. Fortune on 01-02-2022 Lactate [Moles/Vol] 1.8 mmol/L 0.4-2.0 [facility] Laboratory - Microbiology an d Antimicrobial susceptibilityOrdered By: Dr. Barlow on 12-31-2021 SARS-CoV-2 (COVID-19) RNA WILLIAM+probe Ql (Unsp spec) Not detected Not Detect [facility] Comment on above: Normal Reference Ran ge: [...] 12-31-2021 Influenza Types A,B Direct FA (DENY) [facility] RSV Ag Immune stain Ql (Tiss )Ordered By: Dr. Barlow on 12-31-2021 Rapid RSV (DFA) RSV Antigen [facility] Laboratory - Microbiology an d Antimicrobial susceptibilityon 11-30-2021 SARS-CoV-2 (COVID-19) RNA WILLIAM+probe Ql (Unsp spec) Not detected Not Detect [facility] Work Phone: Comment on above: Normal Reference [...] Auto (Unsp spec) [#/Vol] 2.65 10*3/uL 0.83-4.51 [facility] Work Phone: Basophil percentageon 2021 Basophils/100 WBC (Bld) 0.6 % 0-1 [facility] Work Phone: Bilirubin [Mass/Vol] 0.20 mg/dL 0.20-1.00 [facility] Work Phone: Comment on above: For patients on eltr ombopag therapy, use of Dimension [place] TBIL is not recommended. Chloride [Moles/Vol] 103 mmol/L 98-107 [facility] Work Phone: Eosinophils/100 WBC (Bld) 3.5 % 0-5 [facility] Work Phone: Glucose [Mass/Vol] 98 mg/dL 74-106 [facility] Work Phone: Neutrophils (Bld) [#/Vol] 6.8 10*3/uL 2.0-7.7 [facility] Work Phone: Neutrophils/100 WBC (Bld) 64.9 % 47-70 [facility] Work Phone: Potassium [Moles/Vol] 3.8 mmol/L 3.5-5.1 [facility] Work Phone: Comment on above: Slight Hemolysis, Re sult may be falsely increased. Protein [Mass/Vol] 7.8 g/dL 6.4-8.2 [facility] Work Phone: Sodium [Moles/Vol] 138 mmol/L 136-145 [facility] Work Phone: WBC (Bld) [#/Vol] 10.4 10*3/uL 4.4-11.0 [facility] Work Phone: Blood erythrocytes count (nu mber/volume)on 11-28-2021 RBC (Bld) [#/Vol] 4.40 10*6/uL 4.2-5.4 [facility] Work Phone: Blood hemoglobin measurement (mass/volume)on 11-28-2021 Hemoglobin (Bld) [Mass/Vol] 14.0 g/dL 12.0-15.0 [facility] Work Phone: Blood lymphocytes/100 leukoc yteson 11-28-2021 Lymphocytes/100 WBC (Bld) 25.4 % 19-41 [facility] Work Phone: Blood monocytes/100 leukocyt eson 11-28-2021 Monocytes/100 WBC (Bld) 5.2 % 0-10 [facility] Work Phone: Blood platelet mean volumeon 11-28-2021 Platelet mean volume (Bld) [Entitic vol] 11.6 fL 6.2-12.0 [facility] Work Phone: Determination of erythrocyte mean corpuscular volume (MCV)on 11-28-2021 MCV (RBC) [Entitic vol] 97.0 fL 81-99 [facility] Work Phone: [phone] Hematocrit Auto (Bld) [Volum e fraction]on 11-28-2021 Hematocrit (Bld) [Volume fraction] 42.7 % 37-47 [facility] Work Phone: [phone] Laboratory - Chemistry and C hemistry - challengeon 11-28-2021 ALP [Catalytic activity/Vol] 109 U/L 45-117 [facility] Work Phone: ALT [Catalytic activity/Vol] 24 U/L 13-56 [facility] Work Phone: CO2 [Moles/Vol] 26.0 mmol/L 21.0-32.0 [facility] Work Phone: Globulin (S) [Mass/Vol] 4.1 g/dL 2.2-4.2 [facility] Work Phone: Urea nitrogen/Creatinine [Mass ratio] 24.8 mg/mg 10-20 [facility] Work Phone: Laboratory - Hematology and Cell countson 11-28-2021 Erythrocyte distribution width (RBC) [Entitic vol] 49.1 fL 35.1-43.9 [facility] Work Phone: Erythrocyte distribution width (RBC) [Ratio] 13.8 % 11.6-14.6 [facility] Work Phone: Immature granulocytes/100 WBC (Bld) 0.400 % 0.0-0.9 [facility] Work Phone: Comment on above: IG% - Immature Granu locytes (promyelocytes, myelocytes and metamyelocytes) > 1% indicates that a LEFT SHIFT is Present. MCH (RBC) [Entitic mass] 31.8 pg 27.0-32.0 [facility] Work Phone: Nucleated RBC/100 WBC (Bld) [Ratio] 0 % 0-5 [facility] Work Phone: MCHC Auto (RBC) [Mass/Vol]on 11-28-2021 MCHC (RBC) [Mass/Vol] 32.8 g/dL 32-36 [facility] Work Phone: No Panel Informationon 11-28 Estimated GFR (MDRD) Amer 153 mL/min >60 [facility] Work Phone: Comment on above: GFR Calc Estimated GFR (MDRD) Non-Af Amer 126 mL/min >60 [facility] Work Phone: Comment on above: Non- GFR Calc Thyroid Stimulating Hormone (TSH) 1.16 uIU/mL 0.358-3.74 [facility] Work Phone: Vitamin D 25-Hydroxy 31.6 ng/mL [facility] Work Phone: Comment on above: Vitamin D 25(OH) Sta tus Range Deficiency <20 ng/mL (50nmol/L) Insufficiency 20 - 30 ng/mL (50 - 75 nmol/L) Sufficiency 30 - 100 ng/mL (75 - 250 nmol/L) Toxicity >100 ng/mL (>250 nmol/L) Platelets bldon 11-28-2021 Platelets (Bld) [#/Vol] 304 10*3/uL 150-450 [facility] Work Phone: Serum or plasma albumin kamilah urement (mass/volume)on 11-28-2021 Albumin [Mass/Vol] 3.7 g/dL 3.2-5.0 [facility] Work Phone: Serum or plasma albumin/glob ulin mass ratioon 11-28-2021 Albumin/Globulin [Mass ratio] 0.9 {ratio} 0.9-2.4 [facility] Work Phone: Serum or plasma calcium kamilah urement (mass/volume)on 11-28-2021 Calcium [Mass/Vol] 9.0 mg/dL 8.5-10.1 [facility] Work Phone: Serum or plasma creatinine m easurement (mass/volume)on 11-28-2021 Creatinine [Mass/Vol] 0.52 mg/dL 0.55-1.02 [facility] Work Phone: Comment on above: The validity of the calculated GFR & GFRAA in patients over 70 years has not been determined. Clinical correlation is essential. Serum or plasma urea nitroge n measurement (mass/volume)on 11-28-2021 Urea nitrogen [Mass/Vol] 13 mg/dL 7-18 [facility] Work Phone: Thin prep Papanicolaou smear with manual screeningon 11-28-2021 Thin prep Papanicolaou smear with manual screening 21 U/L 15-37 [facility] Work Phone: Comment on above: Slight Hemolysis, Re sult may be falsely increased. Thin prep Papanicolaou smear with manual screening 9 5-15 [facility] Work Phone: BACTERIAL VAGINOSIS AMPLIFIC ATIONon 10-27-2021 Lactobacillus crispatus+gasseri+jense heather + Gardnerella vaginalis + Atopobium vaginae rRNA WILLIAM+probe Ql (Vag fld) Negative Negative for bacterial vaginosis [facility] ONESIMO / TRICHOMONAS AMPLIF ICATIONon 10-27-2021 C. glabrata RNA WILLIAM+probe Ql (Vag fld) Negative Negative for Onesimo glabrata [facility] Onesimo albicans, C. dubliniensis, C. parapsilosis, and C. tropicalis RNA WILLIAM+probe Ql (Vag fld) Negative Negative for Onesimo species [facility] T. vaginalis DNA WILLIAM+probe Ql (Unsp spec) Negative Negative for Trichomonas vaginalis by amplification [facility] UA DIP, URINE (POC)on 2021 BILIRUBIN UA (POCT) Negative Negative [facility] CLARITY UA (POCT) Clear [facility] COLOR UA (POCT) Dark yellow [facility] GLUCOSE UA (POCT) Negative Negative mg/dL [facility] HEMOGLOBIN/BLOOD UA (POCT) Negative Negative [facility] KETONE UA (POCT) Negative Negative mg/dL [facility] LEUKOCYTES UA (POCT) Negative Negative [facility] NITRITE UA (POCT) Negative Negative [facility] PH UA (POCT) 6.0 4.5 - 8.0 [facility] Protein Ql (U) Negative Negative mg/dL [facility] SPECIFIC GRAVITY UA (POCT) >=1.030 1.005 - 1.030 [facility] UROBILINOGEN UA (POCT) 0.2 E.U./dL Normal E.U./ dL [facility] Culture, urineon 07-27-2021 Bacteria identified Cx Nom (U) Mixed Gram Pos & Gram Neg Org [facility] Work Phone: [phone] Absolute lymphocyte counton 07-26-2021 Lymphocytes Auto (Unsp spec) [#/Vol] 2.58 10*3/uL 0.83-4.51 [facility] Work Phone: Basophil percentageon 2021 Basophils/100 WBC (Bld) 0.7 % 0-1 [facility] Work Phone: Eosinophils/100 WBC (Bld) 2.2 % 0-5 [facility] Work Phone: [phone] Neutrophils (Bld) [#/Vol] 4.6 10*3/uL 2.0-7.7 [facility] Work Phone: Neutrophils/100 WBC (Bld) 57.1 % 47-70 [facility] Work Phone: WBC (Bld) [#/Vol] 8.0 10*3/uL 4.4-11.0 [facility] Work Phone: Blood erythrocytes count (nu mber/volume)on 07-26-2021 RBC (Bld) [#/Vol] 5.03 10*6/uL 4.2-5.4 [facility] Work Phone: Blood hemoglobin measurement (mass/volume)on 07-26-2021 Hemoglobin (Bld) [Mass/Vol] 16.1 g/dL 12.0-15.0 [facility] Work Phone: Blood lymphocytes/100 leukoc yteson 07-26-2021 Lymphocytes/100 WBC (Bld) 32.1 % 19-41 [facility] Work Phone: Blood monocytes/100 leukocyt eson 07-26-2021 Monocytes/100 WBC (Bld) 7.7 % 0-10 [facility] Work Phone: Blood platelet mean volumeon 07-26-2021 Platelet mean volume (Bld) [Entitic vol] 12.3 fL 6.2-12.0 [facility] Work Phone: Determination of erythrocyte mean corpuscular volume (MCV)on 07-26-2021 MCV (RBC) [Entitic vol] 94.0 fL 81-99 [facility] Work Phone: Hematocrit Auto (Bld) [Volum e fraction]on 07-26-2021 Hematocrit (Bld) [Volume fraction] 47.3 % 37-47 [facility] Work Phone: Laboratory - Hematology and Cell countson 07-26-2021 Erythrocyte distribution width (RBC) [Entitic vol] 48.4 fL 35.1-43.9 [facility] Work Phone: Erythrocyte distribution width (RBC) [Ratio] 14.0 % 11.6-14.6 [facility] Work Phone: Immature granulocytes/100 WBC (Bld) 0.200 % 0.0-0.9 [facility] Work Phone: [phone] Comment on above: IG% - Immature Granu locytes (promyelocytes, myelocytes and metamyelocytes) > 1% indicates that a LEFT SHIFT is Present. MCH (RBC) [Entitic mass] 32.0 pg 27.0-32.0 [facility] Work Phone: Nucleated RBC/100 WBC (Bld) [Ratio] 0 % 0-5 [facility] Work Phone: MCHC Auto (RBC) [Mass/Vol]on 07-26-2021 MCHC (RBC) [Mass/Vol] 34.0 g/dL 32-36 [facility] Work Phone: Platelets bldon 07-26-2021 Platelets (Bld) [#/Vol] 235 10*3/uL 150-450 [facility] Work Phone: Absolute lymphocyte counton 06-06-2021 Lymphocytes Auto (Unsp spec) [#/Vol] 0.76 10*3/uL 0.83-4.51 [facility] Work Phone: [phone] Basophil percentageon 2021 Basophils/100 WBC (Bld) 0.2 % 0-1 [facility] Work Phone: Bilirubin [Mass/Vol] 0.40 mg/dL 0.20-1.00 [facility] Work Phone: Comment on above: For patients on eltr ombopag therapy, use of Dimension [place] TBIL is not recommended. Chloride [Moles/Vol] 106 mmol/L 98-107 [facility] Work Phone: Eosinophils/100 WBC (Bld) 0.0 % 0-5 [facility] Work Phone: Glucose [Mass/Vol] 107 mg/dL 74-106 [facility] Work Phone: Comment on above: Fasting Glucose resu lt from 100 to 125 mg/dL suggests IMPAIRED HOMEOSTASIS per A.D.A. criteria. Neutrophils (Bld) [#/Vol] 5.3 10*3/uL 2.0-7.7 [facility] Work Phone: Neutrophils/100 WBC (Bld) 85.0 % 47-70 [facility] Work Phone: Potassium [Moles/Vol] 4.2 mmol/L 3.5-5.1 [facility] Work Phone: Protein [Mass/Vol] 7.6 g/dL 6.4-8.2 [facility] Work Phone: Sodium [Moles/Vol] 140 mmol/L 136-145 [facility] Work Phone: WBC (Bld) [#/Vol] 6.2 10*3/uL 4.4-11.0 [facility] Work Phone: Blood erythrocytes count (nu mber/volume)on 06-06-2021 RBC (Bld) [#/Vol] 4.51 10*6/uL 4.2-5.4 [facility] Work Phone: Blood hemoglobin measurement (mass/volume)on 06-06-2021 Hemoglobin (Bld) [Mass/Vol] 14.0 g/dL 12.0-15.0 [facility] Work Phone: Blood lymphocytes/100 leukoc yteson 06-06-2021 Lymphocytes/100 WBC (Bld) 12.2 % 19-41 [facility] Work Phone: Blood monocytes/100 leukocyt eson 06-06-2021 Monocytes/100 WBC (Bld) 2.4 % 0-10 [facility] Work Phone: Blood platelet mean volumeon 06-06-2021 Platelet mean volume (Bld) [Entitic vol] 11.5 fL 6.2-12.0 [facility] Work Phone: [phone] Determination of erythrocyte mean corpuscular volume (MCV)on 06-06-2021 MCV (RBC) [Entitic vol] 93.6 fL 81-99 [facility] Work Phone: Hematocrit Auto (Bld) [Volum e fraction]on 06-06-2021 Hematocrit (Bld) [Volume fraction] 42.2 % 37-47 [facility] Work Phone: [phone] Laboratory - Chemistry and C hemistry - challengeon 06-06-2021 ALP [Catalytic activity/Vol] 123 U/L 45-117 [facility] Work Phone: ALT [Catalytic activity/Vol] 21 U/L 13-56 [facility] Work Phone: CO2 [Moles/Vol] 29.0 mmol/L 21.0-32.0 [facility] Work Phone: [phone] Globulin (S) [Mass/Vol] 3.9 g/dL 2.2-4.2 [facility] Work Phone: [phone] Urea nitrogen/Creatinine [Mass ratio] 18.4 mg/mg 10-20 [facility] Work Phone: Laboratory - Hematology and Cell countson 06-06-2021 Erythrocyte distribution width (RBC) [Entitic vol] 49.0 fL 35.1-43.9 [facility] Work Phone: Erythrocyte distribution width (RBC) [Ratio] 14.3 % 11.6-14.6 [facility] Work Phone: [phone] Immature granulocytes/100 WBC (Bld) 0.200 % 0.0-0.9 [facility] Work Phone: [phone] Comment on above: IG% - Immature Granu locytes (promyelocytes, myelocytes and metamyelocytes) > 1% indicates that a LEFT SHIFT is Present. MCH (RBC) [Entitic mass] 31.0 pg 27.0-32.0 [facility] Work Phone: Nucleated RBC/100 WBC (Bld) [Ratio] 0 % 0-5 [facility] Work Phone: [phone] MCHC Auto (RBC) [Mass/Vol]on 06-06-2021 MCHC (RBC) [Mass/Vol] 33.2 g/dL 32-36 [facility] Work Phone: No Panel Informationon 06-06 Estimated GFR (MDRD) Amer 166 mL/min >60 [facility] Work Phone: Comment on above: GFR Calc Estimated GFR (MDRD) Non-Af Amer 137 mL/min >60 [facility] Work Phone: Comment on above: Non- GFR Calc Thyroid Stimulating Hormone (TSH) 0.68 uIU/mL 0.358-3.74 [facility] Work Phone: Vitamin D 25-Hydroxy 47.8 ng/mL [facility] Work Phone: Comment on above: Vitamin D 25(OH) Sta tus Range Deficiency <20 ng/mL (50nmol/L) Insufficiency 20 - 30 ng/mL (50 - 75 nmol/L) Sufficiency 30 - 100 ng/mL (75 - 250 nmol/L) Toxicity >100 ng/mL (>250 nmol/L) Platelets bldon 06-06-2021 Platelets (Bld) [#/Vol] 326 10*3/uL 150-450 [facility] Work Phone: Serum or plasma albumin kamilah urement (mass/volume)on 06-06-2021 Albumin [Mass/Vol] 3.7 g/dL 3.2-5.0 [facility] Work Phone: Serum or plasma albumin/glob ulin mass ratioon 06-06-2021 Albumin/Globulin [Mass ratio] 0.9 {ratio} 0.9-2.4 [facility] Work Phone: Serum or plasma calcium kamilah urement (mass/volume)on 06-06-2021 Calcium [Mass/Vol] 9.1 mg/dL 8.5-10.1 [facility] Work Phone: Serum or plasma creatinine m easurement (mass/volume)on 06-06-2021 Creatinine [Mass/Vol] 0.49 mg/dL 0.55-1.02 [facility] Work Phone: Comment on above: The validity of the calculated GFR & GFRAA in patients over 70 years has not been determined. Clinical correlation is essential. Serum or plasma urea nitroge n measurement (mass/volume)on 06-06-2021 Urea nitrogen [Mass/Vol] 9 mg/dL 7-18 [facility] Work Phone: Thin prep Papanicolaou smear with manual screeningon 06-06-2021 Thin prep Papanicolaou smear with manual screening 19 U/L 15-37 [facility] Work Phone: Thin prep Papanicolaou smear with manual screening 5 5-15 [facility] Work Phone: CNTHERAPYon 01-12-2018 CNTHERAPY OT/PT/Speech Visit (SPEMDR) TONYA CUELLO ([id number]) 1960 Tanya Romero Time Provider Pupdxhhtqp74/5/18 10:30 AM SPEECH [facility] SPEMDREncounter Number: [id number] Time Provider Department Spsiqy6401/12/2018 10:30 AM [id number] [facility] H[facility]EMDR [facility]: Speech Instrumental Swallow Eval [3660] [...] 1.4 % MUCOSAL AEROSOL * Use 1 [place] as instructed as * Patient not taking: Reported on 12/20/2017 * DESITIN 40 % TOPICAL OINTMENT Apply to buttocks twice daily * COMPOUNDED PRESCRIPTION Light talker Bruce Cervantes P* * WHEELCHAIR CUSHION MISC Use daily for prevention of d* * MILK OF MAGNESIA 400 MG/5 ML * as neededProgress Notes:Elizabeth Iniguez CCC-BOX STACKER 01/12/2018 4:34 PM SignedEpisode Visit Count: Visit count could not be calculated. Make sure you areusing a visit which is associated with an episode.Start of Care Date: 01/12/18Onset Date: 12/08/17Patient Identified by Name and Date of : [facility] REHABILITATION AND SPORTS THERAPYMODIFIED BARIUM SWALLOWPLAN OF [...] degrees for all PO;-Small Bite/Sip;-Supervision/A ssistance for meals.BOX STACKER Recommendations:-Diet-S wallowing Precautions- continue Speech Therapy recommendations within prison Goals for Modified Barium Swallow: created for [...] Level: Required Assistance (aregivers assist/ lives in groupava )Assistance Required With: Swallowing Precautions;Other: See Comment (- all ADLtasks)Assistance Available: 24 Hour (- lives in prison )OBJECTIVE: MEASURES WITH LEVEL OF FUNCTION:Instrumental Swallow Assessment Type: Modified Barium Swallow StudyModified Barium Swallow Views: Lateral positionMBS Consistencies Tested: Thin Barium Liquids;Pudding Thick BariumLiquids;Fritch Thick Barium Liquids;Soft Solid With Barium Paste;Puree WithBarium Paste;Solid With Barium PasteOral Phase:Lip Closure: Profuse escape through open lips (- anterior protrusion of tonguebeyond lips )Profuse Escape Through Open Lips With: Thin Liquids;Fritch ThickenedLiquids;Puree; Soft Solid;SolidTongue Control During Bolus Hold: [...] n DemonstrationTREATMENT: Performed Modified Barium Swallowing Study (35540).Evaluation: Modified Barium Swallow Evaluation (03038)Swallow / Dysphagia (73293): Skilled Intervention: -Provided video review;writtenAND verbal education [...] understanding ofeducation provided this date.Billing:Modified Barium Swallow (61430) and Dysphagia Treatment (57355)Total time: 30 minutesElizabeth Iniguez CCC-BOX STACKER Idania Hendricks [facility] PROGRESSon 01-12-2018 Protein mass conc HNO ID: [id number]: Elizabeth (Necktie Stitcher) FuerstService: (none)Author Type: Speech Language PathologistType: Progress NotesFiled: 01/12/2018 4:34 PMNote Text:Episode Visit Count: Visit count could not be calculated. Make sure youare using a visit which is associated with an episode.Start of Care Date: 01/12/18Onset Date: 12/08/17[facility] Identified [facility]ER[facility]MODIFIED BARIUM SWALLOWPLAN OF [...] degrees for all PO;-Small Bite/Sip;-Supervision/A ssistance for meals.BOX STACKER Recommendations:-Diet-S wallowing Precautions- continue Speech Therapy recommendations within prison Goals for Modified Barium Swallow: created for [...] aspiration; texture tolerance levels . Patient residesin prison with Caregivers assisting with all ADL tasks. Caregiverreports no previous PNA or recent change in medical status. Caregivernote Pt coughs sometimes, but that is nothing newPatient Goals: eat/drink without restrictionsPrior Functional Level: Required Assistance (aregivers assist/ lives ingroup home )Assistance Required With: Swallowing Precautions;Other: See Comment (- allADL tasks)Assistance Available: 24 Hour (- lives in prison )OBJECTIVE: MEASURES WITH LEVEL OF FUNCTION:Instrumental Swallow Assessment Type: Modified Barium Swallow StudyModified Barium Swallow Views: Lateral positionMBS Consistencies Tested: Thin Barium Liquids;Pudding Thick BariumLiquids;Fritch Thick Barium Liquids;Soft Solid With Barium Paste;PureeWith Barium Paste;Solid With Barium PasteOral Phase:Lip Closure: Profuse escape through open lips (- anterior protrusion oftongue beyond lips )Profuse Escape Through Open Lips With: Thin Liquids;Fritch ThickenedLiquids;Puree; Soft Solid;SolidTongue Control During Bolus Hold: [...] n DemonstrationTREATMENT: Performed Modified Barium Swallowing Study (43848).Evaluation: Modified Barium Swallow Evaluation (14194)Swallow / Dysphagia (15686): Skilled Intervention: -Provided videoreview; writtenAND verbal education [...] understanding ofeducation provided this date.Billing:Modified Barium Swallow (29957) and Dysphagia Treatment (15452)Total time: 30 minutesElizabeth Iniguez CCC-BOX STACKER [facility] XR MOD BARIUM SWALLOW W CHAPIS Kizzy 01-12-2018 Protein mass conc * * *Final [...] Kerma: 18.0 mGyDose Area Product (DAP): 3450.0 mGy*nbH9Efugiv time: 3:23 min:secRESULT: See speech pathology notes.IMPRESSION: See speech pathology notes.Telecommunicator: ALEXIS Transcribe Date/Time: Jan 12 2018 11:31ADictated by : LISY ALONSO MDThis examination was interpreted and the report reviewed and electronically signed by: LISY ALONSO MD on Jan 12 2018 1:06PM [id number] [facility] Anion gap 8 mmol/L Normal 5-16 [facility] Comment on above: Order Comment: Campu s: M Performed By: #### L 500.89545, L500.98505 ####[facility] [id number] [place], [place] [address]Ec# [phone] BUN/Creatinine Ratio 14 mg/mg Low 15-24 [facility] Comment on above: Order Comment: Campu s: M Performed By: #### L 500.95038, L500.16907 ####[facility] [id number] [place], [place] [address]Pn# [phone] Calcium 8.9 mg/dL Normal 8.5-10.1 [facility] Comment on above: Order Comment: Campu s: M Performed By: #### L 500.16851, L500.49020 ####[facility] [id number] [place], [place] [address]Rj# [phone] Chloride 103 mmol/L Normal 98-107 [facility] Comment on above: Order Comment: Campu s: M Performed By: #### L 500.16019, L500.42051 ####[facility] [id number] [place], [place] [address]Ex# [phone] CO2 30 mmol/L Normal 21-32 [facility] Comment on above: Order Comment: Campu s: M Performed By: #### L 500.78991, L500.26570 ####[facility] [id number] [place], [place] [address]Zi# [phone] Creatinine 0.487 mg/dL Low 0.510-0.950 [facility] Comment on above: Order Comment: Campu s: M Result Comment: Ariana ents receiving either N-Acetylcysteine (NAC) orMetamizole prior to venipuncture, may have falsely depressedresults. Performed By: #### L 500.91609, L500.95692 ####[facility] [id number] [place], [place] [address]Lu# [phone] Glucose mass conc 84 mg/dL Normal 70-100 [facility] Comment on above: Order Comment: Campu s: M Result Comment: 70-1 00-Normal Fasting; 324-229-Nprsdivv Fasting; greaterthan 126 on more than one result-Diabetes. ADA guidelines Performed By: #### L 500.52286, L500.79684 ####[facility] [id number] [place], [place] [address]Ze# [phone] Potassium molar conc 4.4 mmol/L Normal 3.5-5.1 [facility] Comment on above: Order Comment: Campu s: M Performed By: #### L 500.80040, L500.20091 ####[facility] [id number] [place] [address]Cd# [phone] Sodium 140 mmol/L Normal 136-145 [facility] Comment on above: Order Comment: Campu s: M Performed By: #### L 500.78365, L500.79445 ####[facility] [id number] [place] [address]Cl# [phone] Urea nitrogen 7 mg/dL Normal 7-26 [facility] Comment on above: Order Comment: Campu s: M Performed By: #### L 500.31345, L500.71587 ####[facility] [id number] [place] [address]Qi# [phone] GFR ESTon 11-07-2016 IF AMER Greater than 60 Normal [facility] Comment on above: Order Comment: Campu s: M Performed By: #### L 500.49642, L500.07058 ####[facility] [id number] [place], [place] [address]Yt# [phone] IF non-AFR AMER Greater than 60 Normal [facility] Comment on above: Order Comment: Campu s: M Performed By: #### L 500.21725, L500.31370 ####[facility] [id number] [place], [place] [address]Ut# [phone] ORon 11-07-2016 OPERATIVE REPORT This is a preliminar y report only, as the practitioner review and authentication has not occurred. Normal [facility] DATE OF SERVICE: 11/07/2016PREOPERATIVE DIAGNOSES:1. Periodontitis.2. Failing amalgam restorations.POSTOPERAT CHRIS DIAGNOSES:1. Periodontitis.2. Failing amalgam restorations.OPERATION: 1. Thorough cleansing of oral cavity with chlorhexidine rinse.2. Full mouth dental and periodontal charting.3. Four-bite wing dental radiographs.4. Prophy.5. Amalgam restorations on 2, 3, 14, and 29.SURGEON: Yang Abrams DMD.POTATO CHIP FRYER: [facility] OR staff.ANESTHESIA: General anesthesia via nasotracheal [...] tothe postanesthesia care unit in satisfactory condition. [facility] PATIENT NAME: TONYA FLETCHERbrian Guzmán MEDICAL REC #: [id number], [place] [address] DATE:DISCHARGE DATE:OPERATIVE REPORT ATTENDING PHY: Yang Abrams [...] am willing to send the patient to [facility] for implant placement, but itwould be an [...] the patient and itis not a necessity. JM Feldman/[id number]: 11/07/2016 09:18DT: 11/07/2016 09:39SSI File#: [id number] #: [id number] [facility] PATIENT NAME: TONYA FLETCHER Jazzy Guzmán MEDICAL REC #: [id number], [place] [address] DATE:DISCHARGE DATE:OPERATIVE REPORT ATTENDING PHY: Yang Abrams DMD [facility] No Panel Information Influenza Types A,B Direct FA (DENY) [facility] Work Phone: RSV Ag Immune stain Ql (Tiss ) Rapid RSV (DFA) RSV Antigen [facility] Work Phone: Vital Signs Date Time Vital Sign Value Performing Clinician Faci alecy 08-26-2024 18:25-0400 Body temperature 96.8 [degF] Haja Coley MD Work Phone: [facility] 08-26-2024 18:25-0400 Diastolic blood pressure 78 mm[Hg] Haja Coley MD Work Phone: [facility] 08-26-2024 18:25-0400 Heart rate 82 /min Haja Coley MD Work Phone: [facility] 08-26-2024 18:25-0400 Respiratory rate 21 /min Haja Coley MD Work Phone: [facility] 08-26-2024 18:25-0400 SaO2% (BldA) [Mass fraction] 94 % Haja Coley MD Work Phone: [facility] 08-26-2024 18:25-0400 Systolic blood pressure 130 mm[Hg] Haja Coley MD Work Phone: [facility] 08-10-2024 14:49-0400 Diastolic blood pressure 80 mm[Hg] Dr. Michelle Marroquin MD Work Phone: [facility] 08-10-2024 14:49-0400 Heart rate 74 /min Dr. Michelle Marroquin MD Work Phone: [facility] 08-10-2024 14:49-0400 SaO2% (BldA) [Mass fraction] 93 % Dr. Michelle Marroquin MD Work Phone: [facility] 08-10-2024 14:49-0400 Systolic blood pressure 120 mm[Hg] Dr. Michelle Marroquin MD Work Phone: [facility] 08-10-2024 14:47-0400 Body height 152.[address] Michelle Marroquin MD Work Phone: [facility] 06-11-2024 13:09-0400 Body temperature 98.2 [degF] Dr. Michelle Marroquin MD Work Phone: [facility] 06-11-2024 13:09-0400 Diastolic blood pressure 56 mm[Hg] Dr. Michelle Marroquin MD Work Phone: [facility] 06-11-2024 13:09-0400 Heart rate 82 /min Dr. Michelle Marroquin MD Work Phone: [facility] 06-11-2024 13:09-0400 Respiratory rate 18 /min Dr. Michelle Marroquin MD Work Phone: [facility] 06-11-2024 13:09-0400 SaO2% (BldA) [Mass fraction] 96 % Dr. Michelle Marroquin MD Work Phone: [facility] 06-11-2024 13:09-0400 Systolic blood pressure 108 mm[Hg] Dr. Michelle Marroquin MD Work Phone: [facility] 05-18-2024 17:06-0400 Body temperature 98.2 [degF] Dr. Michelle Marroquin MD Work Phone: [facility] 05-18-2024 17:06-0400 Diastolic blood pressure 70 mm[Hg] Dr. Michelle Marroquin MD Work Phone: [facility] 05-18-2024 17:06-0400 Heart rate 76 /min Dr. Michelle Marroquin MD Work Phone: [facility] 05-18-2024 17:06-0400 Respiratory rate 14 /min Dr. Michelle Marroquin MD Work Phone: [facility] 05-18-2024 17:06-0400 Systolic blood pressure 110 mm[Hg] Dr. Michelle Marroquin MD Work Phone: [facility] 04-21-2024 13:58-0500 Body height 152.[address] Michelle Marroquin MD Work Phone: [facility] 04-21-2024 13:58-0500 Body temperature 98.4 [degF] Dr. Michelle Marroquin MD Work Phone: [facility] 04-21-2024 13:58-0500 Diastolic blood pressure 64 mm[Hg] Dr. Michelle Marroquin MD Work Phone: [facility] 04-21-2024 13:58-0500 Heart rate 92 /min Dr. Michelle Marroquin MD Work Phone: [facility] 04-21-2024 13:58-0500 Respiratory rate 18 /min Dr. Michelle Marroquin MD Work Phone: [facility] 04-21-2024 13:58-0500 SaO2% (BldA) [Mass fraction] 95 % Dr. Michelle Marroquin MD Work Phone: [facility] 04-21-2024 13:58-0500 Systolic blood pressure 110 mm[Hg] Dr. Michelle Marroquin MD Work Phone: [facility] 04-09-2024 20:32-0500 Body temperature 97.6 [degF] Dr. Michelle Marroquin MD Work Phone: [facility] 04-09-2024 20:32-0500 Heart rate 89 /min Dr. Michelle Marroquin MD Work Phone: [facility] 04-09-2024 20:32-0500 Respiratory rate 16 /min Dr. Michelle Marroquin MD Work Phone: [facility] 04-09-2024 20:32-0500 SaO2% (BldA) [Mass fraction] 95 % Dr. Michelle Marroquin MD Work Phone: [facility] 07-21-2023 09:34-0400 Body temperature 98.1 [degF] [facility] 07-21-2023 09:34-0400 Diastolic blood pressure 79 mm[Hg] [facility] 07-21-2023 09:34-0400 Heart rate 86 /min [facility] 07-21-2023 09:34-0400 Respiratory rate 17 /min [facility] 07-21-2023 09:34-0400 SaO2% (BldA) [Mass fraction] 95 % [facility] 07-21-2023 09:34-0400 Systolic blood pressure 132 mm[Hg] [facility] 07-21-2023 08:18-0400 Body height 152.4 cm [facility] 06-13-2023 08:36-0400 Body temperature 97.9 [degF] [facility] 06-13-2023 08:36-0400 Diastolic blood pressure 82 mm[Hg] [facility] 06-13-2023 08:36-0400 Heart rate 97 /min [facility] 06-13-2023 08:36-0400 Respiratory rate 16 /min [facility] 06-13-2023 08:36-0400 SaO2% (BldA) [Mass fraction] 98 % [facility] 06-13-2023 08:36-0400 Systolic blood pressure 129 mm[Hg] [facility] 06-13-2023 05:51-0400 Body height 152.4 cm [facility] 06-13-2023 05:51-0400 Body mass index (BMI) [Ratio] 28.8 kg/m2 [facility] 06-13-2023 05:51-0400 Body weight 67.1 kg [facility] 08-15-2022 18:20-0400 Diastolic blood pressure 74 mm[Hg] [facility] 08-15-2022 18:20-0400 Heart rate 102 /min [facility] 08-15-2022 18:20-0400 Respiratory rate 20 /min [facility] 08-15-2022 18:20-0400 SaO2% (BldA) [Mass fraction] 95 % [facility] 08-15-2022 18:20-0400 Systolic blood pressure 121 mm[Hg] [facility] 08-15-2022 16:38-0400 Body mass index (BMI) [Ratio] 24.7 kg/m2 [facility] 08-15-2022 16:38-0400 Body weight 57.3 kg [facility] 08-15-2022 16:21-0400 Body height 152.4 cm [facility] 08-15-2022 16:21-0400 Body temperature 97.2 [degF] [facility] 03-21-2022 18:59-0500 Diastolic blood pressure 70 mm[Hg] Dr. Rocky Barlow Work Phone: [facility] 03-21-2022 18:59-0500 Heart rate 97 /min Dr. Rocky Barlow Work Phone: [facility] 03-21-2022 18:59-0500 Respiratory rate 18 /min Dr. Rocky Barlow Work Phone: [facility] 03-21-2022 18:59-0500 SaO2% (BldA) [Mass fraction] 98 % Dr. Rocky Barlow Work Phone: [facility] 03-21-2022 18:59-0500 Systolic blood pressure 130 mm[Hg] Dr. Rocky Barlow Work Phone: [facility] 03-21-2022 17:46-0500 Body temperature 98.3 [degF] Dr. Rocky Barlow Work Phone: [facility] 03-21-2022 17:42-0500 Body height 154.[address] Rocky Barlow Work Phone: [facility] 03-21-2022 17:42-0500 Body mass index (BMI) [Ratio] 24.5 kg/m2 Dr. Rocky Barlow Work Phone: [facility] 03-21-2022 17:42-0500 Body weight [address] Rocky Barlow Work Phone: [facility] 01-21-2022 14:13-0500 Body temperature 98.8 [degF] Dr. Rocky Barlow Work Phone: [facility] 01-21-2022 14:13-0500 Diastolic blood pressure 76 mm[Hg] Dr. Rocky Barlow Work Phone: 1(081)929-832746 [place] [address] 01-21-2022 14:13-0500 Heart rate 86 /min Dr. Rocky Barlow Work Phone: 4(739)279-837946 [place] [address] 01-21-2022 14:13-0500 Respiratory rate 14 /min Dr. Rocky Barlow Work Phone: 1(960)310-457746 [place] [address] 01-21-2022 14:13-0500 SaO2% (BldA) [Mass fraction] 98 % Dr. Rocky Barlow Work Phone: 5(852)416-209646 [place] [address] 01-21-2022 14:13-0500 Systolic blood pressure 128 mm[Hg] Dr. Rocky Barlow Work Phone: 7(335)637-693046 [place] [address] 01-03-2022 17:18-0400 Body temperature 98.2 [degF] Dr. Rocky Barlow Work Phone: 5(812)547-257246 [place] [address] 01-03-2022 17:18-0400 Diastolic blood pressure 92 mm[Hg] Dr. Rocky Barlow Work Phone: 5(761)334-334646 [place] [address] 01-03-2022 17:18-0400 Heart rate 94 /min Dr. Rocky Barlow Work Phone: [facility] 01-03-2022 17:18-0400 Respiratory rate 20 /min Dr. Rocky Barlow Work Phone: 0(447)766-585646 [place] [address] 01-03-2022 17:18-0400 SaO2% (BldA) [Mass fraction] 95 % Dr. Rocky Barlow Work Phone: [facility] 01-03-2022 17:18-0400 Systolic blood pressure 118 mm[Hg] Dr. Rocky Barlow Work Phone: 2(167)276-871046 [place] [address] 01-03-2022 14:19-0400 Inhaled oxygen flow rate 2 L/min Dr. Rocky Barlow Work Phone: [facility] 01-02-2022 21:40-0400 Body height 152.[address] Rocky Barlow Work Phone: [facility] Work Phone: 01-02-2022 21:40-0400 Body mass index (BMI) [Ratio] 23.2 kg/m2 Dr. Rocky Barlow Work Phone: [facility] 01-02-2022 21:40-0400 Body weight [address] Rocky Barlow Work Phone: [facility] 10-26-2021 07:33-0400 Body temperature 97.2 [degF] Lennox Chamberlain FOOD BEVERAGE MANAGER.[employer] OPERATIONS SPECIALIST Work Phone: [facility] 10-26-2021 07:33-0400 Diastolic blood pressure 80 mm[Hg] Lennox Chamberlain FOOD BEVERAGE MANAGER.[employer] OPERATIONS SPECIALIST Work Phone: [facility] 10-26-2021 07:33-0400 Heart rate 72 /min Lennox Bulmaro FOOD BEVERAGE MANAGER.[employer] OPERATIONS SPECIALIST Work Phone: [facility] 10-26-2021 07:33-0400 Respiratory rate 16 /min Lennox Chamberlain FOOD BEVERAGE MANAGER.[employer] OPERATIONS SPECIALIST Work Phone: [facility] 10-26-2021 07:33-0400 SaO2% (BldA) [Mass fraction] 98 % Lennox Chamberlain FOOD BEVERAGE MANAGER.[employer] OPERATIONS SPECIALIST Work Phone: [facility] 10-26-2021 07:33-0400 Systolic blood pressure 126 mm[Hg] Lennox Chamberlain FOOD BEVERAGE MANAGER.[employer] OPERATIONS SPECIALIST Work Phone: [facility] Encounters Encounter Date Encounter Type Care Provider Facility Start: 09-05-2024 Emergency department patient visit [facility] Facility:[facility] Start: 08-26-2024 End: 08-26-2024 Office outpatient visit 15 minutes Haja Coley MD Work Phone: [facility] Comment on above: Nausea and vomiting, unspecified vomiting type (Primary Dx) Start: 08-26-2024 End: 08-[facility] Start: 08-10-2024 End: 08-10-2024 Patient encounter procedure Christ GOVEA [facility] Work Phone: Start: 08-10-2024 End: 08-10-[address] Michelle Marroquin MD Work Phone: [facility] Work Phone: Start: 06-11-2024 End: 06-11-[address] Michelle Marroquin MD -[facility] Work Phone: Start: 06-11-2024 End: 06-11-[address] Michelle Marroquin MD [facility] Start: 06-11-2024 End: 06-11-[address] Michelle Marroquin MD Work Phone: [facility] Work Phone: Start: 06-11-2024 End: 06-11-2024 ambulatory [facility] Facility:[facility] Start: 05-18-2024 End: 05-18-2024 Patient encounter procedure Christ Aguirre [facility] Work Phone: Start: 05-18-2024 End: 05-18-2024 ambulatory Christ GOVEA [place] Start: 04-21-2024 End: 04-21-[address] Michelle Marroquin MD -[facility] Work Phone: Start: 04-21-2024 End: 04-21-[facility] Start: 04-21-2024 End: 04-21-2024 ambulatory [facility] Facility:[facility] Start: 04-09-2024 End: 04-09-2024 Emergency department patient visit Dr. Gregory Coleman MD -Emergency Department Work Phone: Start: 12-21-2023 End: 12-21-2023 [facility] Start: 12-12-2023 End: 12-12-2023 ambulatory John GOVEA Facility:[facility] Start: 10-08-2023 End: 10-08-2023 ambulatory Panfilo Lizamaori Facility:[facility] Start: 10-08-2023 End: 10-08-2023 ambulatory John GOVEA Facility:[facility] Start: 09-23-2023 End: 09-23-2023 Emergency department patient visit [facility] Facility:[facility] Start: 07-31-[address] Michelle Marroquin MD Work Phone: [facility] Start: 07-21-2023 End: 07-21-2023 Emergency department patient visit [facility]-Emergency Department Work Phone: Start: 06-19-2023 End: 06-19-2023 ambulatory [facility] Work Phone: Start: 06-19-2023 End: 06-19-2023 Patient encounter procedure [facility]-Laboratory, Phy Office 3rd Flr Start: 06-13-2023 End: 06-13-2023 Emergency department patient visit [facility]-Emergency Department Work Phone: Start: 02-05-2023 End: 02-05-2023 ambulatory [facility] Work Phone: Start: 02-05-2023 End: 02-05-2023 Patient encounter procedure [facility]-Pulmonary Services/Neurology Work Phone: Start: 01-01-2023 End: 01-01-2023 ambulatory [facility] Work Phone: Start: 01-01-2023 End: 01-01-2023 Patient encounter procedure [facility]-Radiology, [facility] Work Phone: Start: 12-12-2022 End: 12-12-2022 Patient encounter procedure [facility]-Pulmonary Services/Neurology Work Phone: Start: 12-11-2022 End: 12-11-2022 [facility] Start: 12-03-2022 End: 12-03-2022 ambulatory [facility] Work Phone: Start: 12-03-2022 End: 12-03-2022 Patient encounter procedure [facility]-Laboratory, Phy Office 3rd Flr Start: 08-15-2022 End: 08-15-2022 [facility] Start: 05-30-2022 End: 05-30-2022 ambulatory [facility] Work Phone: Start: 05-30-2022 End: 05-30-2022 [facility] Start: 03-29-2022 End: 03-29-[address] Rocky Barlow Work Phone: [facility] Work Phone: Start: 03-29-2022 End: 03-29-[address] Rocky Barlow Work Phone: [facility]-Pulmonary Services/Neurology Start: 03-21-2022 End: 03-21-2022 Emergency department patient visit Dr. Rocky Barlow Work Phone: [facility]-Emergency Department Start: 01-21-2022 End: 01-21-[address] Rocky Barlow Work Phone: [facility] Start: 01-03-2022 Non-patient / Non-visit Dr. Jong Barlow Work Phone: [facility] Start: 01-02-2022 Non-patient / Non-visit Dr. Jong Barlow Work Phone: [facility] Start: 01-02-2022 End: 01-03-2022 Evaluation and management of inpatient Dr. Rocky Barlow Work Phone: [facility]-Medical Surgical 3 Start: 01-02-2022 End: 01-03-[address] Rocky Barlow Work Phone: [facility] Work Phone: Start: 12-31-2021 End: 12-31-[address] Rocky Barlow Work Phone: [facility] Work Phone: Start: 12-31-2021 End: 12-31-[address] Rocky Barlow Work Phone: [facility]-Radiology, [facility] Start: 11-30-2021 End: 11-30-2021 ambulatory [facility] Work Phone: Start: 11-30-2021 End: 11-30-2021 Patient encounter procedure [facility]-Pulmonary Services/Neurology Start: 11-28-2021 End: 11-28-2021 ambulatory [facility] Work Phone: Start: 11-28-2021 End: 11-28-2021 Patient encounter procedure [facility]-Laboratory, Phy Office 3rd Flr Start: 10-27-2021 Telephone encounter Melba Campoverde APRN.AEGIS OPERATIONS SPECIALIST Work Phone: [facility] Comment on above: Results, Lab; Result s Results Start: 10-26-2021 End: 10-26-2021 Patient encounter procedure Kathya Eric APRN.CNM Work Phone: OB/Gynecology Comment on above: Vaginal itching (Simona ahsan Dx); Vaginal burning; Vaginal odor; Vaginal discharge Start: 10-26-2021 End: 10-26-2021 Patient encounter procedure Lennox Chamberlain APRN.AEGIS OPERATIONS SPECIALIST Work Phone: [facility] Comment on above: Burning with urinati on (Primary Dx); Wheeze; Chronic cough Start: 07-27-2021 End: 07-27-2021 Patient encounter procedure [facility]-Laboratory, Specimen Start: 07-26-2021 End: 07-26-2021 Patient encounter procedure [facility]-Laboratory, Phy Office 3rd Flr Start: 07-09-2021 End: 07-09-2021 Patient encounter procedure [facility]-Radiology, [facility] Start: 06-06-2021 End: 06-06-2021 Patient encounter procedure [facility]-Laboratory Start: 05-30-2021 End: 05-30-2021 Patient encounter procedure [facility]-Radiology, [facility] Start: 04-25-2021 End: 04-25-2021 Patient encounter procedure [facility], [facility] Start: 01-12-2018 End: 01-12-2018 Patient encounter procedure [facility] Start: 12-09-2017 Patient encounter procedure [facility] Start: 11-07-2016 Evaluation and management of inpatient Yang Abrams Facility:[facility] Start: 10-29-2016 Ambulatory Yang Abrams Facility: [facility] Procedures Date Procedure Procedure Detail Performing [...] Michelle Marroquin MD Work Phone: Start: 04-09-2024 SARS-CoV-2, [...] Start: 10-26-2021 BACTERIAL VAGINOSIS AMPLIFICATION Kathya Eric APRN.CNM Work Phone: Start: 10-26-2021 Iadna trichomonas vaginalis amplified probe tech Kathya Erci APRN.CNHuma Work Phone: Start: 10-26-2021 Urnls dip stick/tabl et rgnt auto w/o microscopy Lennox Chamberlain APRN.AEGIS OPERATIONS SPECIALIST Work Phone: Start: 07-27-2021 Urine culture Start: 07-09-2021 X-ray of both feet Start: 05-30-2021 X-ray of both feet Start: 04-25-2021 X-ray of chest posteroanterior view Start: 03-17-2019 H/O: surgery S/P deep brain stimulator placement Lennox Chamberlain APRN.AEGIS OPERATIONS SPECIALIST Work Phone: Start: 10-28-2012 Lipid 1996 panel - S radha or Plasma Haja Coley MD Work Phone: Start: 09-03-2012 Mammography Lennox K ing FOOD BEVERAGE MANAGER.AEGIS OPERATIONS SPECIALIST Work Phone: Influenza Types A,B Direct FA [...] Screening for malign ant neoplasm of colon [facility] Start: 04-09-2024 [facility] Start: 03-10-2024 Medicare Advantage A nnual Wellness Visit Medicare Advantage Annual Wellness Visit [facility] Start: 11-09-2023 Covid-19 Vaccine ( season) Covid-19 Vaccine ( season) [facility] Start: 07-21-2023 [facility] Start: 06-13-2023 [facility] Start: 01-03-2022 Patient discharge [facility] Start: 01-02-2022 Following clinical pathway protocol [facility] Start: 01-02-2022 Assessment of risk o f venous thromboembolism [facility] Start: 01-02-2022 Inhalation therapy procedure [facility] Start: 01-02-2022 Insertion of cathete r into peripheral vein [facility] Start: 01-02-2022 Oxygen therapy [facility] Start: 01-02-2022 Providing care accor ding to standard [facility] Start: 01-02-2022 Provision of activit y privileges [facility] Start: 01-02-2022 Referral to occupati onal therapist [facility] Start: 01-02-2022 Referral to service [facility] Start: 01-02-2022 Respiratory secretio n precautions [facility] Start: 01-02-2022 [facility] Start: 01-02-2022 Admission procedure [facility] Start: 11-08-2021 Influenza vaccination INFLUENZA (#1) [facility] Start: 03-12-2021 COVID-19 VACCINE (2 - Moderna series) COVID-19 VACCINE (2 - Moderna series) [facility] Start: 09-13-2019 PAP TESTING PAP TESTING [facility] Start: 10-28-2017 Lipid panel Lipid Screening [facility] Start: 10-28-2017 LIPID SCREEN LIPID SCREEN [facility] Start: 09-12-2017 Screening for malign ant neoplasm of cervix Cervical Cancer Screening [facility] Start: 09-03-2013 Mammography MAMMOGRAM [facility] Start: 09-03-2013 Screening for malign ant neoplasm of breast Mammogram Screening [facility] Start: 01-23-2013 DIABETES SCREEN DIABETES SCREEN [facility] Start: 01-23-2013 Diabetes Screening Diabetes Screenin g [facility] Start: 07-05-2011 Pneumococcal Vaccine : 50+ (1 of 1 - PCV) Pneumococcal Vaccine: 50+ (1 of 1 - PCV) [facility] Start: 07-05-2011 SHINGRIX VACCINE (1 of 2) GRAY GRIX VACCINE (1 of 2) [facility] Start: 2006 COLOGUARD (FIT-DNA) COLOGUARD (FIT-D NA) [facility] Start: 2006 Colonoscopy COLONOSCOPY [facility] Start: 2006 COLORECTAL CANCER SCREENING COLORECTAL CANCER SCREENING [facility] Start: [address] COLONOGRAPHY [facility] Start: 2006 FECAL OCCULT BLOOD FECAL OCCULT BLOO D [facility] Start: 2006 Screening for malign ant neoplasm of colon [facility] Start: 2006 SIGMOIDOSCOPY SIGMOIDOSCOPY [facility] Start: 12-10-1995 Urine microalbumin profile [facility] Start: 07-05-1991 HPV TESTING HPV TESTING [facility] Start: 07-05-1979 ANNUAL PCP TEAM AIR SAMPLING AND MONITORING TRESSA DISEASE VISIT ANNUAL PCP TEAM CHRONIC DISEASE VISIT [facility] Start: 07-05-1979 Anxiety Screening Anxiety Screening [facility] Start: 07-05-1979 HEPATITIS C SCREENING HEPATITIS C [facility] Start: 07-05-1979 Hepatitis C screening Hepatitis C [facility] Start: 07-05-1979 HIV SCREENING HIV SCREENING [facility] Start: 07-05-1979 HIV screening HIV Screening [facility] Bacteria identified in Urine by Culture URINE CULTURE Microbiology Routine Burning with urination Ordered: 10/26/2021 [facility] Work Phone: Comment on above: Ordered: 10/26/2021 Influenza virus A an d B RNA and SARS-CoV-2 (COVID-19) N gene panel - Respiratory specimen by WILLIAM with probe detection COVID WITH FLUA+B, ROUTINE Microbiology Routine Wheeze Chronic cough Ordered: 10/26/2021 [facility] Work Phone: Comment on above: Ordered: 10/26/2021 Patient Education [facility] Work Phone: Patient referral [facility] Work Phone: XR Chest PA and Lateral [facility] Immunizations Immunization Date Immunization Notes Care Provider [facility] 12-12-2023 influenza, injectabl e, madin suraj canine kidney, preservative free Dr. Michelle Marroquin MD Work Phone: [facility] 11-27-2021 Influenza, high dose seasonal Dr. Michelle Marroquin MD Work Phone: [facility] 11-27-2021 influenza, high dose seasonal, preservative-free Dr. Rocky Barlow Work Phone: [facility] 03-10-2021 Covid (Moderna) Dr. Rocky Barlow Work Phone: [facility] 02-12-2021 Covid (Moderna) Dr. Rocky Barlow Work Phone: [facility] 12-27-2016 Influenza virus vaccine [facility] 10-16-2010 tuberculin skin test ; purified protein derivative solution, intradermal Haja Coley MD Work Phone: [facility] 01-16-2010 influenza virus vaccine, unspecified formulation Lennox Chamberlain APRN.CNP Work Phone: [facility] Work Phone: 03-29-2009 novel [id number]-[id number], all formulations Lennox Chamberlain FOOD BEVERAGE MANAGER.AEGIS OPERATIONS SPECIALIST Work Phone: [facility] Work Phone: 12-29-2008 influenza virus vaccine, unspecified formulation Lennox Chamberlain FOOD BEVERAGE MANAGER.AEGIS OPERATIONS SPECIALIST Work Phone: [facility] Work Phone: 01-14-2008 influenza virus vaccine, unspecified formulation Lennox Chamberlain FOOD BEVERAGE MANAGER.AEGIS OPERATIONS SPECIALIST Work Phone: [facility] Work Phone: 01-13-2007 influenza virus vaccine, unspecified formulation Lennox Chamberlain FOOD BEVERAGE MANAGER.AEGIS OPERATIONS SPECIALIST Work Phone: [facility] Work Phone: 01-08-2003 influenza virus vaccine, whole virus Lennox Chamberlain FOOD BEVERAGE MANAGER.AEGIS OPERATIONS SPECIALIST Work Phone: [facility] Work Phone: 12-09-1995 tetanus and diphther ia toxoids, adsorbed, preservative free, for adult use (2 Lf of tetanus toxoid and 2 Lf of diphtheria toxoid) Lennox Chamberlain MARTHA.AEGIS OPERATIONS SPECIALIST Work Phone: [facility] Work Phone: Payers Date Payer Category Payer Medicare (Managed Care) CABRERA Finn [facility] [id number] 2023 Self-pay [id number] 2023 Unknown [id number] 2017 Medicaid [id number] 2017 Medicaid [id number] 1981 Medicare [id number] 1981 Medicare [id number] 1981 Medicare MEDICARE MEDICAR E A AND B [id number] 1981-Present [phone] [place] [address] Medicare [id number] Unknown [id number] 462 Unknown [id number] 462 Unknown [id number]. 462 Unknown [id number]. 462 Unknown [id number]. 462 Unknown [id number]. 462 Unknown [id number]. 462 Unknown [id number]. 462 Unknown [id number]. 462 Unknown [id number]. 462 Unknown [id number]. 462 Unknown [id number]. 462 Unknown [id number]. 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 alcohol (finding) [facility] Start: 1960 Sex Assigned At Not on file [facility] Start: 10-16-2021 End: 10-26-2021 Exposure to SARS-CoV-2 (event) Not sure [facility] Work Phone: Start: 06-15-2024 Sex Female (finding) [facility] Start: 05-22-2020 End: 04-05-2022 History of Social function [facility] Start: 05-22-2020 End: 04-05-2022 Tobacco use panel [facility] Work Phone: National Score (1-100), lower number is lower risk 68 [facility] Medical Equipment Procedure Code Equipment Code Equipment Origin al Text Equipment Identifier Dates Lens Iol 0d +24 Manuel Uv Abs - [id number] Start: 03-22-2019 Lens Acrysof Ultrasert +24.5 Diopter Acrylic Iol 1 Piece Foldable Uv Blue - [id number] Start: 11-22-2019 Comment on above: Description: -1.05 Goals Date Patient Goal Desired Activity /State Functional Status Date Assessment Result Facility 01-03-2022 Functional status Bedrest [facility] Work Phone: 09-30-2014 Are you deaf, or do you have serious difficulty hearing No 09/30/2014 9:29 AM EDT Lakshmi Nguyen RN No [facility] Work Phone: 09-30-2014 Are you blind, or do you have serious difficulty seeing, even when wearing glasses No 09/30/2014 9:29 AM EDT Lakshmi Nguyen RN No [facility] 09-30-2014 Do you have serious difficulty walking or climbing stairs Yes 09/30/2014 9:29 AM EDT Lakshmi Nguyen RN Yes [facility] 09-30-2014 Do you have difficul ty dressing or bathing Yes 09/30/2014 9:29 AM EDT Lakshmi Nguyen RN Yes [facility] 09-30-2014 Because of a physica l, mental, or emotional condition, do you have difficulty doing errands alone such as visiting a physician's office or shopping Yes 09/30/2014 9:29 AM DOMINICKT Lakshmi Nguyen RN Yes [facility] Mental Status Date Assessment Result Facility 06-13-2023 Cognitive function Level Of Cons ciousness Awake [facility] Work Phone: 01-03-2022 Cognitive function Appropriate [facility] Work Phone: 09-12-2014 Because of a physica l, mental, or emotional condition, do you have serious difficulty concentrating, remembering, or making decisions No 09/12/2014 8:23 AM EDT April Raza MA No [facility] Clinical Notes 10-26-2021 to 08-26-2024 Haja Coley MD - 08/26/2024 6:40 PM EDT Note Date & Type Note Facility 08-26-2024 Note HNO ID: [id number] Author: HAJA COLEY MD Service: ? Author Type: Physician Type: Progress Notes Filed: 08/26/2024 18:45 Note Text: [facility] Subjective Tonyatahmina Fletcher is a 64 year old female. [...] following reason(s): Benign exam and vitals Procedures [facility] 08-26-2024 History of Present illness Narrative MAHOGANY [...] and vitals Procedures documented in this encounter [facility] 04-21-2024 Evaluation note Diagnosis Onset Date Resolution History of aspiration pneumonia acute April 21 1:47pm Sore throat acute April 1:47pm URI (upper respiratory infection) acute April 21, 025 1:47pm Health care maintenance acute A pril 2024 12:50pm Anxiety and depression chronic Ap ril 2024 12:50pm Cerebral palsy chronic June 11, 2024 12:50pm History of pulmonary embolism chronic June 11, 2024 12:50pm Hypothyroidism chronic June 11, 2024 12:50pm Insomnia chronic June 11 12:50pm Intellectual developmental disorder, severe chronic June 11, 2024 12:50pm Urinary incontinence chronic Apri l 2024 12:50pm [facility] Work Phone: 1(939) 603-961504-05-2024 Discharge summary Author Haresh Curtis [facility] June 13, 2023 8:23am Note Date/Time June 13, 2023 6:33 am [facility] Medical Records Department [address] [place] [address] Emergency Department Summary 06/13/23 MR#: [id number] Acct: [id number] Name: TONYA FLETCHER Rep #:[id number] : 1960 62 From: Haresh Curtis DO PCP: Dr. Rocky Barlow MD Status:REG E R Location: ED HPI History of Present Illness Chief Complaint: General Illness Informant: patient and legal guardian Narrative Narrative: Patient is a 62-year-old female with past medical history of cerebral palsy as well as previous pulmonary embolism currently on Xarelto hypothyroidism and hyperlipidemia. Shaker Out reports that she awoke around 2:30/2:45 in the morning to sounds of retching and the patient had 3 bouts of vomiting. Shaker Out states that the vomit was whenever was in her stomach and then turned to bile and was not dark or bloody. Reportedly the patient has a remote historyof bowel obstruction and the seals engraver denies any recent diarrhea and therefore was concerned for this and called EMS to bring her in for evaluation. The patient cannot offer any further history based on her cerebral palsy Please note seals engraver states that she and her other seals engraver were both sick with similar symptoms just last week. [facility] Medical History Allergic rhinitis Barretts esophagus Cerebral [...] note review of systems was obtained from seals engraver Constitutional Constitutional ED: Denies fever(s) ENT ENT [...] Differential diagnosis is for viral infection suchas [place] virus versus rotavirus versus electrolyte abnormality versus [...] & Record Review Discussion w/independent historian: Other (Shaker Out) Lab Data Attestation: I reviewed the patient's lab results. Labs: Laboratory Results - last 24 hr 06/13/23 06:12 WBC 9.0 RBC 4.62 Hgb 14.3 Hct 43.6 MCV 94.4 MCH 31.0 MCHC 32.8 RDW Std Deviation 47.4 H RDW Coeff of Handy 13.5 Plt Count 321 MPV 10.5 Immature Gran % (Auto) 0.200 Neut % (Auto) 80.0 H Lymph % (Auto) 12.4 L Sequoyah % (Auto) 4.6 Eos % (Auto) 2.5 [...] Impression: Nausea and vomiting, Current use of nursing home anticoagulation, Cerebral palsy Instructions: ED Gastroenteritis, Viral (Adult), ED Vomiting (Adult) Prescriptions: New ondansetron 4 mg tablet,disintegrating 4 mg PO TID PRN (Reason: nausea and vomiting) Qty: 21 0RF No Action loratadine 10 MG tablet 10 mg PO DAILY@0800 mirtazapine 7.5 MG tablet 7.5 mg PO QHS@1999 azelastine 6 ML drops 0.05 drp EACH EYE BID@0800,1999 Patient Comments: PLACE (1) DROP INTO EACH [...] your Primary Care Provider. Call [facility] ([phone]) or report to the closest Emergency Room. Call 911 if necessary. 06/13/23822 <Electronically signed by Haresh Curtis DO> Cosigner Signature (if applicable): CC: Dr. Rocky Barlow MD ~ Signed [facility] Work Phone: 1(222) 479-136810-25-2023 Procedure [facility] 10-29-2021 Miscellaneous Notes* Telephone Encounter - Mary Alice Sumner RN - 10/29/2021 10:43 AM EDT Erica Askew with [facility] notified. Patient did already take diflucan and symptoms have improved. Mary Alice Sumner RN * Telephone Encounter - Mary Alice Sumner RN - 10/29/2021 9:49 AM EDT Left voicemail on [facility] to call office. Mary Alice Sumner RN * Telephone Encounter - Kathya Eric APRN.CNM - 10/27/2021 12:04 PM EDT Please notify patient that results are negative. She did receive 1 dose of Diflucan. If any furtherissues or concerns to please let us know and can decide on another treatment plan for symptoms.Kathya Eric APRN.CNM documented in this encounterUniversity Hospitals Health System08-20-2022 Miscellaneous Notes* Telephone Encounter - Libby Mariano - 10/27/2021 2:30 PM EDT Patient given results and verbalized understanding of instructions given. Libby Mariano * Telephone Encounter - Libby Mariano - 10/27/2021 2:05 PM EDT ----- Message from Melba Suarez APRN.AEGIS OPERATIONS SPECIALIST sent at 10/27/2021 1:54 PM EDT ----- Urine culture did not show clear evidence of infection, however it appears sample may have been contaminated with skin bacteria during collection. If not improving, recommend follow up with PCP. Melba Suarez CNP documented in this encounterUniversity Hospitals Health System08-19-2022 Instructions* Patient Instructions* Kathya Eric APRN.JOSHM - 10/26/2021 3:03 PM EDT Prescription sent [...] for diabetes Get tested for HIV/AIDS Copyright 1256-3092 [facility]. All rights reserved. This information is provided by the [facility] and is not intended to replace the medical advice of your doctor or health care provider. Please consult your health care provider for advice about a specific medical condition. For additional written health information, please contact the [facility] at the [facility] or toll-free extension [phone]. 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 Anna Tomlin from [facility] Esophageal reflux suspected cause of emesis [...] EGD W/O OR W/BRUSH/WASH 05/22/2017 EGD w/biopsy [facility] EGD W/O OR W/BRUSH/WASH 05/28/2018 PAST SURGICAL [...] once daily. COMPOUNDED PRESCRIPTION Light talker [employer] Pathfinder Device with Table Mount, Wheelchair Mount [...] recommendations. Kathya Eric APRN.CNM documented in this encounterUniversity Hospitals Health System08-19-2022 History of Present illness Narrative* Lennox Chamberlain APRN.[employer] OPERATIONS SPECIALIST - 10/26/2021 8:17 AM EDT Subjective HPI HPI Tonya Fletcher is a 61 year old female who presents today for CC of burning with urination. This started 1 week ago. Has tried nothing for relief. Symptoms are worsened by nothing. staff scientist reports no visible abnormality in area. Patient [...] elsewhere classified Sees Dr. Anna Tomlin from [facility] Esophageal reflux suspected cause of emesis [...] EGD W/O OR W/BRUSH/WASH 05/22/2017 EGD w/biopsy [facility] EGD W/O OR W/BRUSH/WASH 05/28/2018 PAST SURGICAL [...] buttocks twice daily COMPOUNDED PRESCRIPTION Light talker [employer] Pathfinder Device with Table Mount, Wheelchair Mount [...] culture - will try to get earlier figure model appointment Worsening symptoms go to ER. - [...] plan Lennox Chamberlain APRN.CNP documented in this encounterUniversity Hospitals Health System08-19-2022 Instructions* Patient Instructions* Lennox Chamberlain APRN.CNP - 10/26/2021 8:09 AM EDT ASSESSMENT/PLAN: 1. Burning with urination - ICD9: 788.1, ICD10: R30.0 (primary diagnosis) Acute -urinalysis negative - Send urine for culture - will try to get earlier figure model appointment Worsening symptoms go to ER. - [...] breath go to ER documented in this encounterUniversity Hospitals Health SystemEvaluation noteNo assessment information availableWBrown Memorial Hospital Work Phone: Evaluation note* Diagnosis Burning with urination- Primary Dysuria Wheeze Wheezing Chronic cough Cough documented in this encounter [facility] SystemEvalubeebe [facility] note* Diagnosis Vaginal itching- Primary Pruritus of genital organs Vaginal burning Other specified symptom associated with female genital organs Vaginal odor Unspecified symptom associated with female genital organs Vaginal discharge Leukorrhea, not specified as infective documented in this encounter [facility] SystemEvalubee[facility] note* Diagnosis Onset Date Resolution Status Acute respiratory failure with hypoxia acute RSV bronchitis acute Tachycardia acute [facility] Work Phone: Evaluation note* Diagnosis Onset Date Resolution Status RSV bronchitis acute Acute respiratory failure with hypoxia resolved Tachycardia resolved Gastroenteritis acute URI (upper respiratory infection) acute [facility] Work Phone: Evaluation note* Diagnosis Pre-operative examination- [...] vomiting type- Primary [facility] Additional Instructions Your workup today does not show any signs of aspiration or small bowel obstruction. Symptoms are most likely related to a viral stomach infection based on your negative workup and exposure. Use the Zofran as directed to help control any further bouts of nausea and vomiting and return to the ER should you have any further concernsWBrown Memorial Hospital Work Phone: Hospital Discharge instructions Additional Instructions [...] if she develops a fever or is worse.[facility] Work Phone: Reason for referral (narrative)No reason for referral information availableWBrown Memorial Hospital Work Phone: Summary Purpose Family History No [...] Will No February 05 11:33pm Power of Zipper Trimmer Hand No February 05, 2021 11:33pm Advance Directive Response Recorded Date/ Time Name of Medical Power of Zipper Trimmer Hand Jess anders January 02, 2022 9:53pm Advance Directives No May 25 9:26am Living Will No January 02 9:53pm Power of Zipper Trimmer Hand Yes January 02, 2022 9:53pm Advance Directive Response Recorded Date/ Time Name of Medical Power of Zipper Trimmer Hand Jess anders January 02, 2022 8:53pm Advance Directives No January 1:53pm Living Will No March 21 5:49pm Power of Zipper Trimmer Hand No March 21, 2022 5:49pm Advance Directive Response Recorded Date/ Time Advance Directives No January 2:53pm Living Will No March 21 6:49pm Power of Zipper Trimmer Hand No March 21, 2022 6:49pm Advance Directive Response Recorded Date/ Time Advance Directives No January 2:53pm Living Will No August 15, 2022 5 :22pm Power of Zipper Trimmer Hand No August 15, 2022 5:22pm Advance Directive Response Recorded Date/ Time Advance Directives No January 1:53pm Living Will No August 15, 2022 4 :22pm Power of Zipper Trimmer Hand No August 15, 2022 4:22pm Advance Directive Response Recorded Date/ Time Advance Directives No January 2:53pm Living Will No July 21, 2023 8 :44am Power of Zipper Trimmer Hand No July 21, 2023 8:44am Advance Directive Response Recorded Date/ Time Living Will No October 08, 2023 3:03pm Do you have a Healthcare Power of Zipper Trimmer Hand? No October 08, 2023 3:03pm Living Will No April 09 9:36pm Do you have a Healthcare Power of Zipper Trimmer Hand? No April 09, 2024 9:36pm Advance Directives No October 07 3:03pm Advance Directive Response Recorded Date/ Time Living Will No October 08, 2023 3:03pm Do you have a Healthcare Power of Zipper Trimmer Hand? No October 08, 2023 3:03pm Advance Directives No October 07 3:03pm Advance Directive Response Recorded Date/ Time Living Will No October 08, 2023 3:03pm Do you have a Healthcare Power of Zipper Trimmer Hand? No October 08, 2023 3:03pm Advance Directives [...] 21, 2024 1:47pm URI (upper respiratory infection) 2024 1:47pm Health care maintenance June 11, [...] section and content) DATE CREATED AUTHOR 09/03/2017 [facility] DATE CREATED AUTHOR AUTHOR'S ORGANIZ ATION 02/15/2018 [facility] DATE CREATED AUTHOR AUTHOR'S ORGANIZ ATION 08/29/2024 [facility] DATE CREATED AUTHOR AUTHOR'S ORGANIZ ATION 09/05/2024 [facility] Goals (unrecognized section and content) Goals [...] or prosecute any alcohol or drug abuse patient.[facility] Hospitals Health SystemIn the event this information is protected by the Federal Confidentiality of Alcohol and Drug Abuse Patient Records regulations: The Federal rules restrict any use of the information to criminally investigate or prosecute any alcohol or drug abuse patient.[facility] Hospitals Health SystemIn the event this information is protected by the Federal Confidentiality of Alcohol and Drug Abuse Patient Records regulations: The Federal rules restrict any use of the information to criminally investigate or prosecute any alcohol or drug abuse patient.[facility] Hospit[facility] Health SystemIn the event this information is protected by the Federal Confidentiality of Alcohol and Drug Abuse Patient Records regulations: The Federal rules restrict any use of the information to criminally investigate or prosecute any alcohol or drug abuse patient.[facility] Hospit[facility] Health SystemIn the event this information is protected by the Federal Confidentiality of Alcohol and Drug Abuse Patient Records regulations: The Federal rules restrict any use of the information to criminally investigate or prosecute any alcohol or drug abuse patient.[facility] Reason for Visit (unrecogniz ed section and content) Reason Comments Urinary Problem burning with urinati on, cough, congestion and wheezing x 1 day Reason Comments Results, Lab Results Reason Comments Results Reason Comments Nausea & Vomiting Fever started today Care Teams (unrecognized sec tion and content) Mental Tester Relationship Specialty Start Date End Date Rocky Barlow Chi [address] [place], [place] [id number] PCP - General Family Practice 09/24/12 Bartolo Philippe [facility] [place], [place] [id number] Referring Ophthalmology 12/30/18 Mental Tester Relationship Specialty Start Date End Date Rocky Barlow Chi [address] [place], [place] [address] PCP - General Family Practice 09/24/12 Bartolo Philippe [address] [place] [address] Referring Ophthalmology 12/30/18 Mental Tester Relationship Specialty Start Date End Date Rocky Barlow Chi [address] [place] [address] PCP - General Family Practice 09/24/12 Bartolo Philippe [facility] [place] [address] Referring Ophthalmology 12/30/18 Team Status: Active Member [...] Other Provider A ctive Dr. Jeni Ann DO Attending Provider, Other Provide r Active [...] Other Provider A ctive Dr. Jeni Ann DO Attending Provider Active Team Status: Inactive [...] Primary Care Provider Active Dr. Raul Viveros DO Attending Provider, Emergency Pro vider Active Team [...] 18, 2024 End: May 18, 2024 Christ GOVEA PA Attending Provider Active Start: May 18, [...] 10, 2024 End: August 10, 2024 Christ GOVEA PA Attending Provider Active Start: August 10, 2024 End: August 10, 2024 Mental Tester Relationship Specialty Start Date End Date Rocky Barlow Chi [address] [id number] PCP - General Family Medicine 09/24/12 Bartolo Philippe MD [address] [place], [place] [id number] (work) Referring Ophthalmology 12/30/18 FOR RECORDS PERTAINING TO [...] BE BASED ON THE PRIMARY CLINICAL RECORDS. APR [facility]. provides no warranty or guarantee of the accuracy or completeness of information in this document.
--- OUTSIDE RECORDS SUMMARY | 2024-09-05 13:47 | XMS RPT_ITS | CCD ---
Author Organization [facility] Care Team Providers Care Director [employer] Name Role Phone Yang Abrams Unavailable Unavailable Cain, Rocky-Chi Unavailable Unavailable Yang Abrams Unavailable Unavailable Cain, Rocky-Chi Unavailable Unavailable AMINIAN, ALI Unavailable Unavailable AMINIAN, ALI Unavailable Unavailable AMINIAN, ALI Unavailable Unavailable Cain, Rocky Chi Primary Care Provider 1([facility])[phone] Bartolo Philippe Unavailable 1([facility])[phone] Dr. Rocky Barlow Chi Primary Care Provider 1([facility])[phone] Dr. Shazia Fortune Emergency Provider 1([facility])[phone] Maximiliano Ortiz Admit Provider Dr. Maximiliano Ortiz Attending Provider 1([facility])[phone] Maximiliano Ortiz Other Provider Dr. Jeni Ann Attending Provider 1([facility])[phone] Jeni Ann Other Provider Dr. Rocky Barlow Chi Primary Care Provider 1([facility])[phone] Dr. Shazia Fortune Emergency Provider 1([facility])[phone] Maximiliano Ortiz Admit Provider Dr. Maximiliano Ortiz Attending Provider 1([facility])[phone] Maximiliano Ortiz Other Provider Dr. Jeni Ann Attending Provider 1([facility])[phone] Jeni Ann Other Provider Dr. Rocky Barlow Chi Referring Provider 1([facility])[phone] XUAN Pope Attending Provider Lopez LEVY, Dr. Martinez Primary Care Provider Gregory Coleman MD Attending Provider Virginia LEVY, Gregory Emergency Provider Lopez LEVY, Dr. Martinez Attending Provider Lopez LEVY, Dr. Martinez Referring Provider Christ Saldivar Attending Provider Lopez LEVY, Dr. Martinez Primary Care Provider Cain, [facility] Primary Care Provider Denae LEVY, Bartolo Ervin Unavailable CAIN, [facility] Primary Care Unavailable HAJA COLEY Attending [...] adverse reactions to drug (disorder) 1 Diarrhea [facility] Repository (2 sources) OTHER; Translations: [OTHER] Propensity to adverse reactions (disorder) 5 [facility] Repository (20 sources) Amoxicillin; Translations: [amoxicillin trihydrate] Drug Allergy 1 Unknown [facility] (20 sources) potassium clavulanate; Translations: [potassium clavulanate] Propensity to adverse reactions 1 Unknown [facility] (6 sources) Potassium; Translations: [POTASSIUM] Drug Allergy 9 Intolerance [facility] Work Phone: (5 sources) OTHER [Other] Propensity to adverse reactions 5 [facility] Work Phone: Medications Current Medications Medication [...] Start: 07-31-2023 take 2 tablets by mo [facility] once daily, then take 3 tablets by [...] sources) Provitamin D2 Compound Start: 11-13-2018 take 57598 [IU] by mouth every month Ergocalciferol (Vitamin D2) Active 87821 UNIT PO EVERY MONTH November 13, 2018 [...] June 13, 2023 6:59am polyethylene glycol 3350 46055 mg powder for oral solution (12 sources) Osmotic Laxative Start: 08-09-19 19 Polyethylene Glycol 3350 Active 17 GM BC DAILY August 08, 2018 12:00am Comment on above: Take 17 g by mouth o nce daily. sennosides, long-term 8.6 mg oral tablet (12 sources) Start: [...] sources) Long-term current use of anticoagulant; Translations: [clay carman (current) use of anticoagulants] 06-13-2023 Episodic Other [...] Absolute Lymph 3.45 X10 3/uL Normal 0.83-4.51 [facility] Comment on above: Performed By: #### L 100.0100, L500.4050, BTS ####[facility] [address] [place], [address] Absolute Neut 7.5 X10 3/uL Normal 2.0-7.7 [facility] Comment on above: Performed By: #### L 100.0100, L500.4050, BTS ####[facility] [address] [place], [address] Basophils/100 WBC (Bld) 0.8 % Normal 0-1 [facility] Comment on above: Performed By: #### L 100.0100, L500.4050, BTS ####[facility] [address] [place], [address] Eosinophils/100 WBC (Bld) 2.5 % Normal 0-5 [facility] Comment on above: Performed By: #### L 100.0100, L500.4050, BTS ####[facility] [address] [place], [address] Erythrocyte distribution width (RBC) [Ratio] 13.5 % Normal 11.6-14.6 [facility] Comment on above: Performed By: #### L 100.0100, L500.4050, BTS ####[facility] [address] [place], [address] Hematocrit (Bld) [Volume fraction] 41.2 % Normal 37-47 [facility] Comment on above: Performed By: #### L 100.0100, L500.4050, BTS ####[facility] [address] [place], [address] Hemoglobin (Bld) [Mass/Vol] 13.9 g/dL Normal 12.0-15.0 [facility] Comment on above: Performed By: #### L 100.0100, L500.4050, BTS ####[facility] [address] [place], [address] IG% 0.200 Normal 0.0-0.9 [facility] Comment on above: Result Comment: IG% - Immature Granulocytes (promyelocytes, myelocytes and metamyelocytes) > 1% indicates that a LEFT SHIFT is Present. Performed By: #### L 100.0100, L500.4050, BTS ####[facility] [address] [place] [place], [address] Lymphocytes/100 WBC (Bld) 28.4 % Normal 19-41 [facility] Comment on above: Performed By: #### L 100.0100, L500.4050, BTS ####[facility] [address] [place], [address] MCH (RBC) [Entitic mass] 32.0 pg Normal 27.0-32.0 [facility] Comment on above: Performed By: #### L 100.0100, L500.4050, BTS ####[facility] [address] [place], [address] MCHC (RBC) [Mass/Vol] 33.7 g/dL Normal 32-36 [facility] Comment on above: Performed By: #### L 100.0100, L500.4050, BTS ####[facility] [address] [place], [address] MCV (RBC) [Entitic vol] 94.9 fL Normal 81-99 [facility] Comment on above: Performed By: #### L 100.0100, L500.4050, BTS ####[facility] [address] [place], [address] Monocytes/100 WBC (Bld) 6.0 % Normal 0-10 [facility] Comment on above: Performed By: #### L 100.0100, L500.4050, BTS ####[facility] [address] [place], [address] Neutrophils/100 WBC (Bld) 62.1 % Normal 47-70 [facility] Comment on above: Performed By: #### L 100.0100, L500.4050, BTS ####[facility] [address] [place], [address] Nucleated RBC (Bld) [#/Vol] 0 10*3/uL Normal 0-5 [facility] Comment on above: Performed By: #### L 100.0100, L500.4050, BTS ####[facility] [address] [place], [address] Platelet mean volume (Bld) [Entitic vol] 11.2 fL Normal 6.2-12.0 [facility] Comment on above: Performed By: #### L 100.0100, L500.4050, BTS ####[facility] [address] [place], [address] Platelets (Bld) [#/Vol] 263 10*3/uL Normal 150-450 [facility] Comment on above: Performed By: #### L 100.0100, L500.4050, BTS ####[facility] [address] [place], [address] RBC (Bld) [#/Vol] 4.34 10*6/uL Normal 4.2-5.4 [facility] Comment on above: Performed By: #### L 100.0100, L500.4050, BTS ####[facility] [address] [place], [address] RDW SD 47.7 fl High 35.1-43.9 [facility] Comment on above: Performed By: #### L 100.0100, L500.4050, BTS ####[facility] [address] [place], [address] WBC (Bld) [#/Vol] 12.1 10*3/uL High 4.4-11.0 [facility] Comment on above: Performed By: #### L 100.0100, L500.4050, BTS ####[facility] [address] [place], [address] Comprehensive Metabolic Prof ilon 09-05-2024 Albumin [Mass/Vol] 3.8 g/dL Normal 3.4-4.8 [facility] Comment on above: Performed By: #### L 100.0100, L500.4050, BTS ####[place] [facility] [address] [place], [address] Albumin/Globulin [Mass ratio] 1.2 {ratio} Normal 0.9-2.4 [facility] Comment on above: Performed By: #### L 100.0100, L500.4050, BTS ####[facility] [address] [place], [address] ALK PHOS 86 U/L Normal 35-104 [facility] Comment on above: Performed By: #### L 100.0100, L500.4050, BTS ####[facility] [address] [place], [address] ALT [Catalytic activity/Vol] 5 U/L Normal <=34 [facility] Comment on above: Performed By: #### L 100.0100, L500.4050, BTS ####[facility] [address] [place], [address] AST [Catalytic activity/Vol] 15 U/L Normal <=31 [facility] Comment on above: Result Comment: Hemo lysis present, Results??could be affected. ?? Performed By: #### L 100.0100, L500.4050, BTS ####[facility] [address] [place], [address] Bilirubin [Mass/Vol] 0.39 mg/dL Normal 0.00-1.30 [facility] Comment on above: Performed By: #### L 100.0100, L500.4050, BTS ####[facility] [address] [place], [address] BUN/CRE 22.1 RATIO High 10-20 [facility] Comment on above: Performed By: #### L 100.0100, L500.4050, BTS ####[facility] [address] [place], [address] Calcium [Mass/Vol] 9.0 mg/dL Normal 7.6-11.0 [facility] Comment on above: Performed By: #### L 100.0100, L500.4050, BTS ####[facility] [address] [place], [address] Chloride [Moles/Vol] 104 mmol/L Normal 98-108 [facility] Comment on above: Performed By: #### L 100.0100, L500.4050, BTS ####[facility] [address] [place], [address] CO2 [Moles/Vol] 24.1 mmol/L Normal 21.0-32.0 [facility] Comment on above: Performed By: #### L 100.0100, L500.4050, BTS ####[facility] [address] [place], [address] Creatinine [Mass/Vol] 0.47 mg/dL Low 0.70-1.20 [facility] Comment on above: Performed By: #### L 100.0100, L500.4050, BTS ####[facility] [address] [place], [address] GAP 12 Normal 5-15 [facility] Comment on above: Performed By: #### L 100.0100, L500.4050, BTS ####[facility] [address] [place], [address] GFR/1.73 sq M.predicted among non-blacks MDRD (S/P/Bld) [Vol rate/Area] 107 mL/min/{1.73_m2} Normal >60 [facility] Comment on above: Result Comment: mL/m in/1.73m2 CKD-EPI Creatinine Equation (2020) Performed By: #### L 100.0100, L500.4050, BTS ####[facility] [address] [place], [address] Globulin (S) [Mass/Vol] 3.1 g/dL Normal 2.2-4.2 [facility] Comment on above: Performed By: #### L 100.0100, L500.4050, BTS ####[facility] [address] [place], [address] Glucose [Mass/Vol] 105 mg/dL High 70-99 [facility] Comment on above: Performed By: #### L 100.0100, L500.4050, BTS ####[facility] [address] [place], [address] Potassium [Moles/Vol] 4.2 mmol/L Normal 3.3-5.1 [facility] Comment on above: Result Comment: Hemo lysis present, Results??could be affected. ?? Performed By: #### L 100.0100, L500.4050, BTS ####[facility] [address] [place], [address] Sodium [Moles/Vol] 140 mmol/L Normal 133-145 [facility] Comment on above: Performed By: #### L 100.0100, L500.4050, BTS ####[facility] [address] [place], [address] T PROT 6.9 g/dL Normal 5.9-8.4 [facility] Comment on above: Performed By: #### L 100.0100, L500.4050, BTS ####[facility] [address] [place], [address] Urea nitrogen [Mass/Vol] 10 mg/dL Normal 4-19 [facility] Comment on above: Performed By: #### L 100.0100, L500.4050, BTS ####[facility] [address] [place], [address] HH, Hemoglobin AND Hematocri ton 09-05-2024 Hematocrit (Bld) [Volume fraction] 36.8 % Low 37-47 [facility] Comment on above: Performed By: #### L 100.0600 ####[facility] [address] [place], [address] Hemoglobin (Bld) [Mass/Vol] 12.6 g/dL Normal 12.0-15.0 [facility] Comment on above: Performed By: #### L 100.0600 ####[facility] [address] [place], [address] Type AND Screenon 09-05-2024 Ab SCREEN GEL PENDING Normal [facility] Comment on above: Order Comment: LANDON W. PREVIOUS SPECIMEN REJECTED DUE TOQNS. 09/05/2438 Felipa Sick.HGI Performed By: #### B TS ####[facility] [address] [place], [address] A1 CELL Not performed Normal [facility] Comment on above: Order Comment: HGI Result Comment: This specimen has been REJECTED due to Laboratory criteria: Quanity Not Sufficient. ED has been notified of need of recollection. 09/05/2437 Felipa Sick Performed By: #### L 100.0100, L500.4050, BTS ####[facility] [address] [place], [address] Ab SCREEN GEL Not performed Normal [facility] Comment on above: Order Comment: HGI Result Comment: This specimen has been REJECTED due to Laboratory criteria: Quanity Not Sufficient. ED has been notified of need of recollection. 09/05/2437 Felipa Sick Performed By: #### L 100.0100, L500.4050, BTS ####[facility] [address] [place], [address] ABO and Rh group Nom (Bld) Test Not Performed Normal [facility] Comment on above: Order Comment: HGI Result Comment: This specimen has been REJECTED due to Laboratory criteria: Quanity Not Sufficient. ED has been notified of need of recollection. 09/05/24836 Felipa Sick Performed By: #### L 100.0100, L500.4050, BTS ####[facility] [address] [place], [address] ANTI A Not performed Normal [facility] Comment on above: Order Comment: HGI Result Comment: This specimen has been REJECTED due to Laboratory criteria: Quanity Not Sufficient. ED has been notified of need of recollection. 09/05/24 Felipa Sick Performed By: #### L 100.0100, L500.4050, BTS ####[facility] [address] [place], [address] ANTI B Not performed Normal [facility] Comment on above: Order Comment: HGI Result Comment: This specimen has been REJECTED due to Laboratory criteria: Quanity Not Sufficient. ED has been notified of need of recollection. 09/05/24 Felipa Sick Performed By: #### L 100.0100, L500.4050, BTS ####[facility] [address] [place], [address] ANTI D Not performed Normal [facility] Comment on above: Order Comment: HGI Result Comment: This specimen has been REJECTED due to Laboratory criteria: Quanity Not Sufficient. ED has been notified of need of recollection. 09/05/24 Felipa Sick Performed By: #### L 100.0100, L500.4050, BTS ####[facility] [address] [place], [address] B CELLS Not performed Normal [facility] Comment on above: Order Comment: HGI Result Comment: This specimen has been REJECTED due to Laboratory criteria: Quanity Not Sufficient. ED has been notified of need of recollection. 09/05/2437 Felipa Sick Performed By: #### L 100.0100, L500.4050, BTS ####[facility] [address] [place], [address] [facility] 08-26-2024 CN Office Visit (UCWSTR ) TONYA FLETCHER ([id number]) 1960 F Date Time Provider Department 08/26/24 6:15 PM HAJA COLEY [facility] During your visit today, we recorded the following information about you: Temperature Pulse Respiration Blood pressure 96.8 degrees 82/minute 21/minute 130/78 Haja Coley MD 08/26/2024 6:45 PM Signed [facility] Subjective Tonya Fletcher is a [...] twice daily - COMPOUNDED PRESCRIPTION Light talker inEarthtSiteMinder Pathfinder Device with Table Mount, Wheelchair Mount [...] [K59.00] 0 (more content not included)... Normal [facility] Urgent Care Visit Reporton 0 08-10-2024 Urgent Care Visit Report [facility] [address], [address] [place] [address] OFFICE VISIT Date of Service: 08/10/24 MR#: [id number] Acct: [id number] Name: TONYA FLETCHER Rep #: [id number] 1 : 1960 Provider: XUAN Casey Age/Sex: 64/F Location: [facility] Status: Signed Intake Vital Signs 04/21/24 13:58 [...] 10 mg/30 mL enema (Fleet 5 mg UT DAILY PRN 07/31/2308/10 History Bisacodyl) bismuth subsalicylate [...] it was just a normal BM today. [facility] Medical History (Updated 08/10/24 @ 15:41 by [...] THC LAST (more content not included)... Normal [facility] Calculated very low density lipoprotein (VLDL) cholesterol measurementOrdered By: Michelle Marroquin on 06-11-2024 Calculated very low density lipoprotein (VLDL) cholesterol measurement 15 mg/dL 5-40 [facility] VLDL Cholesterol 15 mg/dL -40 [facility] Internal Medicine Office Vis itomike 06-11-2024 Internal Medicine Office Visit [facility] [address] [place] [address] [place] [address] OFFICE VISIT Date of Service: 06/11/24 MR#: [id number] Acct: [id number] Name: TONYA FLETCHER Rep #: [id number] 9 : 1960 Provider: Dr. Michelle brambila MD Age/Sex: 63/F Location: [facility] Status: Signed Intake Vital Signs 10/08/23 15:03 [...] 10 mg/30 mL enema (Fleet 5 mg UT DAILY PRN 07/31/2306/11 History Bisacodyl) bismuth subsalicylate [...] #21 caps 05/18/24 Rx Nurse's Note: pt's COOK PRESSURE accompanied her to appt today. she reports no changes to medications, medical/surgical history or allergies. [facility] Medical History (Updated 06/11/24 @ 17:41 by [...] F who (more content not included)... Normal [facility] LDL calc ser/plasOrdered By: Michelle Marroquin on 06-11-2024 Cholesterol in LDL [Mass/Vol] 123 mg/dL [facility] Comment on above: Foaeykqwdz=456-140 m g/dL & Higher Ehdh=045 mg/dL or greater LDL Cholesterol, Calculated 123 mg/dL [facility] Comment on above: Uogxmxmacb=163-479 m g/dL & Higher Jjhv=306 mg/dL or greater Lipid Profileon 06-11-2024 CHOL:HDL 3.11 Normal [facility] Comment on above: Performed By: #### L 506.1001, L500.4100 #### [facility] Laboratory [address] [place], [place], [phone] ([phone]) Cholesterol [Mass/Vol] 204 mg/dL High <=200 [facility] Comment on above: Result Comment: Chol esterol level, Desirable <200 mg/dL Borderline high cholesterol 200-239 mg/dL High cholesterol >=240 mg/dL Recommendations of the NCEP Adult Treatment Panel for the following risk-cutoff thresholds for the [place] population. Performed By: #### L 506.1001, L500.4100 #### [facility] Laboratory [address] [place], [place], [address] Cholesterol in HDL [Mass/Vol] 66 mg/dL Normal [facility] Comment on above: Result Comment: Ludmila onal Cholesterol Education Program (NCEP) guidelines: <40 mg/dL: Low HDL-cholesterol (major risk factor for CHD) >= 60 mg/dL: High HDL-cholesterol (negative risk factor for CHD) HDL-cholesterol is affected by a number of factors, e.g. smoking, exercise, hormones, sex and age. Performed By: #### L 506.1001, L500.4100 #### [facility] Laboratory [address] [place], [place], [phone] ([phone]) Cholesterol in LDL [Mass/Vol] 123 mg/dL Normal [facility] Comment on above: Result Comment: Bord nunzsa=509-904 mg/dL Higher Unjz=786 mg/dL or greater Performed By: #### L 506.1001, L500.4100 #### [facility] Laboratory [address] [place], [address] Cholesterol in VLDL [Mass/Vol] 15 mg/dL Normal 5-40 [facility] Comment on above: Performed By: #### L 506.1001, L500.4100 #### [facility] Laboratory [address] [place], [address] Triglyceride [Mass/Vol] 75 mg/dL Normal [facility] Comment on above: Result Comment: The drugs N-Acetylcysteine and Metamizole may falsely depress this assay. Normal range: <150 mg/dL Borderline High: 150-199 mg/dL High: 200-499 mg/dL Very High: >500 mg/dL Performed By: #### L 506.1001, L500.4100 #### [facility] Laboratory [address] [place], [place], [phone] Screening total cholesterol/ high density lipoprotein (HDL) cholesterol ratioOrdered By: Michelle Marroquin on 06-11-2024 Cholesterol.total/Tanvi sterol in HDL [Mass ratio] 3.11 {ratio} [facility] Serum or plasma cholesterol in HDL measurement (mass/volume)Ordered By: Michelle Marroquin on 06-11-2024 Cholesterol in HDL [Mass/Vol] 66 mg/dL >40 [facility] Comment on above: National Cholesterol Education Program (NCEP) guidelines:<40 mg/dL: Low HDL-cholesterol (major risk factor for CHD)>= 60 mg/dL: High HDL-cholesterol (negative risk factor for CHD)HDL-cholesterol is affected by a number of factors, e.g. smoking, exercise, hormones, sex and age. Serum or plasma cholesterol measurement (mass/volume)Ordered By: Michelle Marroquin on 06-11-2024 Cholesterol [Mass/Vol] 204 mg/dL High <201 [facility] Comment on above: Cholesterol level, D esirable <200 mg/dLBorderline high cholesterol 200-239 mg/dLHigh cholesterol >=240 mg/dLRecommendations of the NCEP Adult Treatment Panel for the following risk-cutoff thresholds for the [place] population. Triglycerides measurementOrd ered By: Michelle Marroquin on 06-11-2024 Triglyceride [Mass/Vol] 75 mg/dL <199 [facility] Comment on above: The drugs N-Acetylcy steine and Metamizole may falsely depress this assay. Normal range: <150 mg/dLBorderline High: 150-199 mg/dLHigh: 200-499 mg/dLVery High: >500 mg/dL Vitamin D, 25-hydroxyOrdered By: Michelle Marroquin on 06-11-2024 Vitamin D 25-Hydroxy 35.0 ng/mL 30-100 [facility] Comment on above: Vitamin D StatusDefi ciency: <20 ng/mL (50nmol/L)Insufficiency: 20-30 ng/mL (50-75 nmol/L)Sufficiency: 30-100 ng/mL (75-250 nmol/L)Toxicity: >100 ng/mL (>250 nmol/L) Vitamin D,25 Hydroxyon 06-11 Vitamin D 25-OH 35.0 ng/mL Normal 30-100 [facility] Comment on above: Result Comment: Ct min D Status Deficiency: <20 ng/mL (50nmol/L) Insufficiency: 20-30 ng/mL (50-75 nmol/L) Sufficiency: 30-100 ng/mL (75-250 nmol/L) Toxicity: >100 ng/mL (>250 nmol/L) Performed By: #### L 506.1001, L500.4100 #### [facility] Laboratory [address] [place], [place], [id number] Urgent Care Visit Reporton 0 05-18-2024 Urgent Care Visit Report [facility] [address], [address] [place], [place] [id number] OFFICE VISIT Date of Service: 05/18/24 MR#: [id number] Acct: [id number] Name: TONYA FLETCHER Rep #: [id number] : 1960 Provider: XUAN Casey Age/Sex: 63/F Location: [facility] Status: Signed Intake Vital Signs 04/21/24 13:58 [...] does express localized tenderness to palpation. No igab-mrd-noglmxk medications taken to assist. No other associated symptoms and no other alleviating/aggravating factors. ROS Const Constitutional: No other (As above) Exam Const General: cooperative, healthy appearing and no acute distress Orientation: alert and awake [facility] Head: normal to inspection Ears: hearing [...] Valentino Signature: Date (if applicable) CC: Normal [facility] Absolute lymphocyte countOrd ered By: Michelle Marroquin on 04-21-2024 Lymphocytes Auto (Unsp spec) [#/Vol] 2.12 10*3/uL 0.83-4.51 [facility] Absolute neutrophil countOrd ered By: Michelle Marroquin on 04-21-2024 Neutrophils (Bld) [#/Vol] 2.9 10*3/uL 2.0-7.7 [facility] Albumin to globulin ratioOrd ered By: jorge Marroquin on 04-21-2024 Albumin/Globulin [Mass ratio] 0.8 {ratio} Low 0.9-2.4 [facility] Automated lymphocyte count a s percentage of total leukocytesOrdered By: Leighajorge Neririchielizbeth on 04-21-2024 Lymphocytes/100 WBC Auto (Unsp spec) 33.8 % 19-41 [facility] Basophil percentageOrdered B y: Eveliosinai Neriselvin on 04-21-2024 Basophils/100 WBC (Bld) 1.0 % 0-1 [facility] Bilirubin, totalOrdered By: jorge Daronselvin on 04-21-2024 Bilirubin [Mass/Vol] 0.30 mg/dL 0.20-1.00 [facility] Comment on above: For patients on eltr ombopag therapy, use of Dimension [place] TBIL is not recommended. Blood urea nitrogen (BUN)/cr eatinine ratioOrdered By: Leigharuddygrahamsinai Neririchielizbeth on 04-21-2024 Urea nitrogen/Creatinine [Mass ratio] 9.6 mg/mg Low 10-20 [facility] CBC W/Diff, Automatedon 04-10 Absolute Lymph 2.12 X10 3/uL Normal 0.83-4.51 [facility] Comment on above: Performed By: #### L 100.0100, L500.4050 ####[facility] [address] [place], [address] Absolute Neut 2.9 X10 3/uL Normal 2.0-7.7 [facility] Comment on above: Performed By: #### L 100.0100, L500.4050 ####[facility] [address] [place], [address] Basophils/100 WBC (Bld) 1.0 % Normal 0-1 [facility] Comment on above: Performed By: #### L 100.0100, L500.4050 ####[facility] [address] [place], [address] Eosinophils/100 WBC (Bld) 7.5 % High 0-5 [facility] Comment on above: Performed By: #### L 100.0100, L500.4050 ####[facility] [address] [place], [address] Erythrocyte distribution width (RBC) [Ratio] 14.7 % High 11.6-14.6 [facility] Comment on above: Performed By: #### L 100.0100, L500.4050 ####[facility] [address] [place], [address] Hematocrit (Bld) [Volume fraction] 42.2 % Normal 37-47 [facility] Comment on above: Performed By: #### L 100.0100, L500.4050 ####[facility] [address] [place], [address] Hemoglobin (Bld) [Mass/Vol] 13.6 g/dL Normal 12.0-15.0 [facility] Comment on above: Performed By: #### L 100.0100, L500.4050 ####[facility] [address] [place], [address] IG% 0.300 Normal 0.0-0.9 [facility] Comment on above: Result Comment: IG% - Immature Granulocytes (promyelocytes, myelocytes and metamyelocytes) > 1% indicates that a LEFT SHIFT is Present. Performed By: #### L 100.0100, L500.4050 ####[facility] [address] [place], [address] Lymphocytes/100 WBC (Bld) 33.8 % Normal 19-41 [facility] Comment on above: Performed By: #### L 100.0100, L500.4050 ####[facility] [address] [place], [address] MCH (RBC) [Entitic mass] 31.6 pg Normal 27.0-32.0 [facility] Comment on above: Performed By: #### L 100.0100, L500.4050 ####[facility] [address] [place], [address] MCHC (RBC) [Mass/Vol] 32.2 g/dL Normal 32-36 [facility] Comment on above: Performed By: #### L 100.0100, L500.4050 ####[facility] [address] [place], [address] MCV (RBC) [Entitic vol] 98.1 fL Normal 81-99 [facility] Comment on above: Performed By: #### L 100.0100, L500.4050 ####[facility] [address] [place], [address] Monocytes/100 WBC (Bld) 11.6 % High 0-10 [facility] Comment on above: Performed By: #### L 100.0100, L500.4050 ####[facility] [address] [place], [address] Neutrophils/100 WBC (Bld) 45.8 % Low 47-70 [facility] Comment on above: Performed By: #### L 100.0100, L500.4050 ####[facility] [address] [place], [address] Nucleated RBC (Bld) [#/Vol] 0 10*3/uL Normal 0-5 [facility] Comment on above: Performed By: #### L 100.0100, L500.4050 ####[facility] [address] [place], [address] Platelet mean volume (Bld) [Entitic vol] 11.8 fL Normal 6.2-12.0 [facility] Comment on above: Performed By: #### L 100.0100, L500.4050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 nitrogen/Creatinine [Mass ratio] 13.7 mg/mg 10-20 [facility] Laboratory - Hematology and Cell countsOrdered By: Rocky Barlow on 06-19-2023 Anisocytosis Ql (Bld) RARE [facility] MCH (RBC) [Entitic mass] 31.0 pg 27.0-32.0 [facility] MCHC (RBC) [Mass/Vol] 31.7 g/dL 32-36 [facility] Nucleated RBC/100 WBC (Bld) [Ratio] 0 % 0-5 [facility] Platelet mean volume (Bld) [Entitic vol] 11.2 fL 6.2-12.0 [facility] Macrocytes detectionOrdered By: Rocky Barlow on 06-19-2023 Macrocytes Ql (Bld) [facility] No Panel InformationOrdered By: Rocky Barlow on 06-19-2023 Estimated GFR (MDRD) Amer 134 mL/min >60 [facility] Comment on above: GFR Calc Estimated GFR (MDRD) Non-Af Amer 111 mL/min >60 [facility] Comment on above: Non- GFR Calc Platelet Count TNP [facility] Comment on above: Test not performedPl ease note: For this sample, a platelet estimate is provided rather than a platelet count due to platelet clumping. Other parameters associated with this sample are not affected by platelet clumping. If a more accurate platelet count is required, a redraw of the patient will be necessary.Previous reported result: 84 [id number] by: SINGH on 06/19/23:1621 Vitamin D 25-Hydroxy 50.8 ng/mL [facility] Comment on above: Vitamin D 25(OH) Sta tus Range Deficiency <20 ng/mL (50nmol/L) Insufficiency 20 - 30 ng/mL (50 - 75 nmol/L) Sufficiency 30 - 100 ng/mL (75 - 250 nmol/L) Toxicity >100 ng/mL (>250 nmol/L) VLDL Cholesterol 22 mg/dL 5-40 [facility] RBC Auto (Bld) [#/Vol]Ordere d By: Rocky Barlow on 06-19-2023 RBC (Bld) [#/Vol] 4.20 10*6/uL 4.2-5.4 [facility] RBC morphologyOrdered By: Jong Barlow on 06-19-2023 RBC morphology finding Nom (Bld) N CHROM NORMAL NORM C&C [facility] Serum or plasma calcium kamilah urement (mass/volume)Ordered By: Rocky Barlow on 06-19-2023 Calcium [Mass/Vol] 9.1 mg/dL 8.5-10.1 [facility] Serum or plasma creatinine m easurement (mass/volume)Ordered By: Rocky Barlow on 06-19-2023 Creatinine [Mass/Vol] 0.58 mg/dL 0.55-1.02 [facility] Comment on above: The validity of the calculated GFR & GFRAA in patients over 70 years has not been determined. Clinical correlation is essential. Serum or plasma thyroid stim ulating hormone (TSH) measurement (units/volume)Ordered By: Rocky Barlow on 06-19-2023 TSH Qn 2.27 uIU/mL 0.358-3.74 [facility] Serum or plasma urea nitroge n measurement (mass/volume)Ordered By: Rocky Barlow 06-19-2023 Urea nitrogen [Mass/Vol] 8 mg/dL 7-18 [facility] Thin prep Papanicolaou smear with manual screeningOrdered By: Rocky Barlow 06-19-2023 Thin prep Papanicolaou smear with manual screening 3.7 g/dL 3.2-5.0 [facility] Thin prep Papanicolaou smear with manual screening 17 U/L 15-37 [facility] Comment on above: Slight Hemolysis, Re sult may be falsely increased. Thin prep Papanicolaou smear with manual screening 4 5-15 [facility] Absolute lymphocyte countOrd ered By: Haresh Curtis on 06-13-2023 Lymphocytes Auto (Unsp spec) [#/Vol] 1.11 10*3/uL 0.83-4.51 [facility] Automated lymphocyte count a s percentage of total leukocytesOrdered By: Haresh Curtis on 06-13-2023 Lymphocytes/100 WBC Auto (Unsp spec) 12.4 % 19-41 [facility] Basophil percentageOrdered B y: Haresh Curtis on 06-13-2023 Basophils/100 WBC (Bld) 0.3 % 0-1 [facility] Bilirubin [Mass/Vol] 0.60 mg/dL 0.20-1.00 [facility] Comment on above: For patients on eltr ombopag therapy, use of Dimension [place] TBIL is not recommended. Chloride [Moles/Vol] 105 mmol/L 98-107 [facility] Eosinophils/100 WBC (Bld) 2.5 % 0-5 [facility] Glucose [Mass/Vol] 109 mg/dL 74-106 [facility] Comment on above: Fasting Glucose resu lt from 100 to 125 mg/dL suggests IMPAIRED HOMEOSTASIS per A.D.A. criteria. Hemoglobin (Bld) [Mass/Vol] 14.3 g/dL 12.0-15.0 [facility] Monocytes/100 WBC (Bld) 4.6 % 0-10 [facility] Neutrophils (Bld) [#/Vol] 7.2 10*3/uL 2.0-7.7 [facility] Neutrophils/100 WBC (Bld) 80.0 % 47-70 [facility] Potassium [Moles/Vol] 3.9 mmol/L 3.5-5.1 [facility] Protein [Mass/Vol] 8.0 g/dL 6.4-8.2 [facility] Sodium [Moles/Vol] 142 mmol/L 136-145 [facility] WBC (Bld) [#/Vol] 9.0 10*3/uL 4.4-11.0 [facility] Determination of erythrocyte mean corpuscular volume (MCV)Ordered By: Haresh Curtis on 06-13-2023 MCV (RBC) [Entitic vol] 94.4 fL 81-99 [facility] Direct bilirubinOrdered By: Haresh Curtis on 06-13-2023 Bilirubin.direct [Mass/Vol] 0.13 mg/dL 0.00-0.30 [facility] Erythrocyte distribution wid th ratioOrdered By: Haresh Curtis on 06-13-2023 Erythrocyte distribution width (RBC) [Ratio] 13.5 % 11.6-14.6 [facility] Erythrocyte distribution wid th standard deviationOrdered By: Haresh Curtis on 06-13-2023 Erythrocyte distribution width (RBC) [Entitic vol] 47.4 fL 35.1-43.9 [facility] Hematocrit Auto (Bld) [Volum e fraction]Ordered By: Haresh Curtis on 06-13-2023 Hematocrit (Bld) [Volume fraction] 43.6 % 37-47 [facility] Immature granulocytes/100 WB C Auto (Bld)Ordered By: Haresh Curtis on 06-13-2023 Immature granulocytes/100 WBC (Bld) 0.200 % 0.0-0.9 [facility] Comment on above: IG% - Immature Granu locytes (promyelocytes, myelocytes and metamyelocytes) > 1% indicates that a LEFT SHIFT is Present. Laboratory - Chemistry and C hemistry - challengeOrdered By: Haresh Curtis on 06-13-2023 ALP [Catalytic activity/Vol] 104 U/L 45-117 [facility] ALT [Catalytic activity/Vol] 14 U/L 13-56 [facility] CO2 [Moles/Vol] 32.0 mmol/L 21.0-32.0 [facility] Globulin (S) [Mass/Vol] 4.1 g/dL 2.2-4.2 [facility] Lipase [Catalytic activity/Vol] 27 U/L 13-75 [facility] Comment on above: Please note:LIPASE r evised reference range effective 22. New Lipase methodology. Expected to produce lower values than the previous assay method. NEW Reference Range: 13 - 75 U/L Urea nitrogen/Creatinine [Mass ratio] 20.5 mg/mg 10-20 [facility] Laboratory - Hematology and Cell countsOrdered By: Haresh Curtis on 06-13-2023 MCH (RBC) [Entitic mass] 31.0 pg 27.0-32.0 [facility] MCHC (RBC) [Mass/Vol] 32.8 g/dL 32-36 [facility] Nucleated RBC/100 WBC (Bld) [Ratio] 0 % 0-5 [facility] Platelet mean volume (Bld) [Entitic vol] 10.5 fL 6.2-12.0 [facility] Platelets (Bld) [#/Vol] 321 10*3/uL 150-450 [facility] No Panel InformationOrdered By: Haresh Curtis on 06-13-2023 Estimated Creatinine Clearance Calc 85.58 ml/min [facility] Estimated GFR (MDRD) Amer 134 mL/min >60 [facility] Comment on above: GFR Calc Estimated GFR (MDRD) Non-Af Amer 111 mL/min >60 [facility] Comment on above: Non- GFR Calc RBC Auto (Bld) [#/Vol]Ordere d By: Haresh Curtis on 06-13-2023 RBC (Bld) [#/Vol] 4.62 10*6/uL 4.2-5.4 [facility] Serum or plasma calcium kamilah urement (mass/volume)Ordered By: Haresh Curtis on 06-13-2023 Calcium [Mass/Vol] 9.3 mg/dL 8.5-10.1 [facility] Serum or plasma creatinine m easurement (mass/volume)Ordered By: Haresh Curtis on 06-13-2023 Creatinine [Mass/Vol] 0.59 mg/dL 0.55-1.02 [facility] Comment on above: The validity of the calculated GFR & GFRAA in patients over 70 years has not been determined. Clinical correlation is essential. Serum or plasma urea nitroge n measurement (mass/volume)Ordered By: Haresh Curtis on 06-13-2023 Urea nitrogen [Mass/Vol] 12 mg/dL 7-18 [facility] Thin prep Papanicolaou smear with manual screeningOrdered By: Haresh Curtis on 06-13-2023 Thin prep Papanicolaou smear with manual screening 3.9 g/dL 3.2-5.0 [facility] Thin prep Papanicolaou smear with manual screening 11 U/L 15-37 [facility] Thin prep Papanicolaou smear with manual screening 5 5-15 [facility] Laboratory - Microbiology an d Antimicrobial susceptibilityOrdered By: Rocky Barlow on 02-05-2023 SARS-CoV-2 (COVID-19) RNA WILLIAM+probe Ql (Unsp spec) [facility] No Panel InformationOrdered By: Rocky Barlow on 02-05-2023 Influenza Types A,B Direct FA (DENY) [facility] RSV Ag EIAOrdered By: Rocky sloan on 02-05-2023 RSV Ag Immune stain Ql (Tiss) [facility] Laboratory - Microbiology an d Antimicrobial susceptibilityOrdered By: Rocky Barlow on 12-12-2022 SARS-CoV-2 (COVID-19) RNA WILLIAM+probe Ql (Unsp spec) [facility] SARS-CoV-2 (COVID-19) RNA WILLIAM+probe Ql (Unsp spec) [facility] No Panel InformationOrdered By: Rocky Barlow on 12-12-2022 Influenza Types A,B Direct FA (DENY) [facility] Influenza Types A,B Direct FA (DENY) [facility] RSV Ag EIAOrdered By: Rocky sloan on 12-12-2022 RSV Ag Immune stain Ql (Tiss) [facility] RSV Ag Immune stain Ql (Tiss) [facility] Absolute lymphocyte countOrd ered By: Rocky Barlow on 12-11-2022 Lymphocytes Auto (Unsp spec) [#/Vol] 2.85 10*3/uL 0.83-4.51 [facility] Basophil percentageOrdered B y: Rocky Barlow on 12-11-2022 Basophils/100 WBC (Bld) 0.6 % 0-1 [facility] Chloride [Moles/Vol] 107 mmol/L 98-107 [facility] Eosinophils/100 WBC (Bld) 4.0 % 0-5 [facility] Glucose [Mass/Vol] 106 mg/dL 74-106 [facility] Comment on above: Fasting Glucose resu lt from 100 to 125 mg/dL suggests IMPAIRED HOMEOSTASIS per A.D.A. criteria. Neutrophils (Bld) [#/Vol] 5.6 10*3/uL 2.0-7.7 [facility] Neutrophils/100 WBC (Bld) 58.3 % 47-70 [facility] Potassium [Moles/Vol] 4.0 mmol/L 3.5-5.1 [facility] Sodium [Moles/Vol] 141 mmol/L 136-145 [facility] WBC (Bld) [#/Vol] 9.5 10*3/uL 4.4-11.0 [facility] Blood erythrocytes count (nu mber/volume)Ordered By: Rocky Barlow on 12-11-2022 RBC (Bld) [#/Vol] 4.40 10*6/uL 4.2-5.4 [facility] Blood hemoglobin measurement (mass/volume)Ordered By: Rocky Barlow on 12-11-2022 Hemoglobin (Bld) [Mass/Vol] 13.8 g/dL 12.0-15.0 [facility] Blood lymphocytes/100 leukoc ytesOrdered By: Rocky Barlow on 12-11-2022 Lymphocytes/100 WBC (Bld) 29.9 % 19-41 [facility] [facility] Blood monocytes/100 leukocyt esOrdered By: Rocky Barlow on 12-11-2022 Monocytes/100 WBC (Bld) 7.0 % 0-10 [facility] Blood platelet mean volumeOr dered By: Rocky Barlow on 12-11-2022 Platelet mean volume (Bld) [Entitic vol] 11.7 fL 6.2-12.0 [facility] Determination of erythrocyte mean corpuscular volume (MCV)Ordered By: Rocky Barlow on 12-11-2022 MCV (RBC) [Entitic vol] 95.7 fL 81-99 [facility] Hematocrit Auto (Bld) [Volum e fraction]Ordered By: Rocky Barlow on 12-11-2022 Hematocrit (Bld) [Volume fraction] 42.1 % 37-47 [facility] Laboratory - Chemistry and C hemistry - challengeOrdered By: Rocky Barlow on 12-11-2022 CO2 [Moles/Vol] 29.0 mmol/L 21.0-32.0 [facility] Urea nitrogen/Creatinine [Mass ratio] 12.7 mg/mg 10-20 [facility] Laboratory - Hematology and Cell countsOrdered By: Rocky Barlow on 12-11-2022 Erythrocyte distribution width (RBC) [Entitic vol] 47.8 fL 35.1-43.9 [facility] Erythrocyte distribution width (RBC) [Ratio] 13.5 % 11.6-14.6 [facility] Immature granulocytes/100 WBC (Bld) 0.200 % 0.0-0.9 [facility] Comment on above: IG% - Immature Granu locytes (promyelocytes, myelocytes and metamyelocytes) > 1% indicates that a LEFT SHIFT is Present. MCH (RBC) [Entitic mass] 31.4 pg 27.0-32.0 [facility] Nucleated RBC/100 WBC (Bld) [Ratio] 0 % 0-5 [facility] MCHC Auto (RBC) [Mass/Vol]Or dered By: Rocky Barlow on 12-11-2022 MCHC (RBC) [Mass/Vol] 32.8 g/dL 32-36 [facility] No Panel InformationOrdered By: Rocky Barlow on 12-11-2022 Estimated GFR (MDRD) Amer 173 mL/min >60 [facility] Comment on above: GFR Calc Estimated GFR (MDRD) Non-Af Amer 143 mL/min >60 [facility] Comment on above: Non- GFR Calc Platelets bldOrdered By: Rocky Barlow on 12-11-2022 Platelets (Bld) [#/Vol] 213 10*3/uL 150-450 [facility] Serum or plasma calcium kamilah urement (mass/volume)Ordered By: Rocky Barlow on 12-11-2022 Calcium [Mass/Vol] 9.2 mg/dL 8.5-10.1 [facility] Serum or plasma creatinine m easurement (mass/volume)Ordered By: Rocky Barlow on 12-11-2022 Creatinine [Mass/Vol] 0.47 mg/dL 0.55-1.02 [facility] Comment on above: The validity of the calculated GFR & GFRAA in patients over 70 years has not been determined. Clinical correlation is essential. Serum or plasma urea nitroge n measurement (mass/volume)Ordered By: Rocky Barlow on 12-11-2022 Urea nitrogen [Mass/Vol] 6 mg/dL 7-18 [facility] Thin prep Papanicolaou smear with manual screeningOrdered By: Rocky Barlow on 12-11-2022 Thin prep Papanicolaou smear with manual screening 5 5-15 [facility] Absolute lymphocyte countOrd ered By: Rocky Barlow on 12-03-2022 Lymphocytes Auto (Unsp spec) [#/Vol] 2.53 10*3/uL 0.83-4.51 [facility] Basophil percentageOrdered B y: Rocky Barlow on 12-03-2022 Basophils/100 WBC (Bld) 1.4 % 0-1 [facility] Bilirubin [Mass/Vol] 0.30 mg/dL 0.20-1.00 [facility] Comment on above: For patients on eltr ombopag therapy, use of Dimension [place] TBIL is not recommended. Chloride [Moles/Vol] 108 mmol/L 98-107 [facility] Cholesterol [Mass/Vol] 209 mg/dL <200 [facility] Comment on above: <200 mg/dL Desirable 200-240 mg/dL Borderline >240 mg/dL High Risk Eosinophils/100 WBC (Bld) 6.0 % 0-5 [facility] Glucose [Mass/Vol] 99 mg/dL 74-106 [facility] Neutrophils (Bld) [#/Vol] 2.8 10*3/uL 2.0-7.7 [facility] Neutrophils/100 WBC (Bld) 44.4 % 47-70 [facility] Potassium [Moles/Vol] 3.7 mmol/L 3.5-5.1 [facility] Protein [Mass/Vol] 7.3 g/dL 6.4-8.2 [facility] Sodium [Moles/Vol] 142 mmol/L 136-145 [facility] Triglyceride [Mass/Vol] 146 mg/dL <199 [facility] Comment on above: The drugs N-Acetylcy steine and Metamizole may falsely depress this assay.Serum Triglycerides Reference Interval Normal <150 mg/dL Borderline high 150 - 199 mg/dL High 200 - 499 mg/dL Very High > or = 500 mg/dL WBC (Bld) [#/Vol] 6.3 10*3/uL 4.4-11.0 [facility] Blood erythrocytes count (nu mber/volume)Ordered By: Rocky Barlow on 12-03-2022 RBC (Bld) [#/Vol] 4.59 10*6/uL 4.2-5.4 [facility] Blood hemoglobin measurement (mass/volume)Ordered By: Rocky Barlow on 12-03-2022 Hemoglobin (Bld) [Mass/Vol] 14.1 g/dL 12.0-15.0 [facility] Blood lymphocytes/100 leukoc ytesOrdered By: [facility] on 12-03-2022 Lymphocytes/100 WBC (Bld) 40.1 % 19-41 [facility] Blood monocytes/100 leukocyt esOrdered By: [facility] on 12-03-2022 Monocytes/100 WBC (Bld) 7.9 % 0-10 [facility] Blood platelet mean volumeOr dered By: Rocky Cain on 12-03-2022 Platelet mean volume (Bld) [Entitic vol] 11.8 fL 6.2-12.0 [facility] Determination of erythrocyte mean corpuscular volume (MCV)Ordered By: Rocky Barlow on 12-03-2022 MCV (RBC) [Entitic vol] 96.9 fL 81-99 [facility] Hematocrit Auto (Bld) [Volum e fraction]Or[facility]: [facility] on 12-03-2022 Hematocrit (Bld) [Volume fraction] 44.5 % 37-47 [facility] Laboratory - Chemistry and C hemistry - challengeOrdered By: Rocky Barlow on 12-03-2022 ALP [Catalytic activity/Vol] 115 U/L 45-117 [facility] ALT [Catalytic activity/Vol] 18 U/L 13-56 [facility] CO2 [Moles/Vol] 29.0 mmol/L 21.0-32.0 [facility] Globulin (S) [Mass/Vol] 3.9 g/dL 2.2-4.2 [facility] Urea nitrogen/Creatinine [Mass ratio] 10.5 mg/mg 10-20 [facility] Laboratory - Hematology and Cell countsOrdered By: Rocky Cain on 12-03-2022 Erythrocyte distribution width (RBC) [Entitic vol] 47.1 fL 35.1-43.9 [facility] Erythrocyte distribution width (RBC) [Ratio] 13.2 % 11.6-14.6 [facility] Immature granulocytes/100 WBC (Bld) 0.200 % 0.0-0.9 [facility] Comment on above: IG% - Immature Granu locytes (promyelocytes, myelocytes and metamyelocytes) > 1% indicates that a LEFT SHIFT is Present. MCH (RBC) [Entitic mass] 30.7 pg 27.0-32.0 [facility] Nucleated RBC/100 WBC (Bld) [Ratio] 0 % 0-5 [facility] MCHC Auto (RBC) [Mass/Vol]Or dered By: Rocky Barlow on 12-03-2022 MCHC (RBC) [Mass/Vol] 31.7 g/dL 32-36 [facility] No Panel InformationOrdered By: Rocky Barlow on 12-03-2022 Estimated GFR (MDRD) Amer 138 mL/min >60 [facility] Comment on above: GFR Calc Estimated GFR (MDRD) Non-Af Amer 114 mL/min >60 [facility] Comment on above: Non- GFR Calc Thyroid Stimulating Hormone (TSH) 1.37 uIU/mL 0.358-3.74 [facility] Platelets bldOrdered By: Rocky Barlow on 12-03-2022 Platelets (Bld) [#/Vol] 238 10*3/uL 150-450 [facility] Serum or plasma albumin kamilah urement (mass/volume)Ordered By: Rocky Barlow on 12-03-2022 Albumin [Mass/Vol] 3.4 g/dL 3.2-5.0 [facility] Serum or plasma albumin/glob ulin mass ratioOrdered By: Rocky Barlow on 12-03-2022 Albumin/Globulin [Mass ratio] 0.9 {ratio} 0.9-2.4 [facility] Serum or plasma calcium kamilah urement (mass/volume)Ordered By: Rocky Barlow on 12-03-2022 Calcium [Mass/Vol] 8.7 mg/dL 8.5-10.1 [facility] Serum or plasma cholesterol in HDL measurement (mass/volume)Ordered By: Rocky Barlow on 12-03-2022 Cholesterol in HDL [Mass/Vol] 56 mg/dL >40 [facility] Comment on above: The drugs N-Acetylcy steine and Metamizole may falsely depress this assay. Reference Range HDL <40 mg/dL Low HDL Cholesterol HDL >or= 60 mg/dL High HDL Cholesterol Serum or plasma cholesterol in VLDL measurement (mass/volume)Ordered By: Rocky Barlow on 12-03-2022 Cholesterol in VLDL [Mass/Vol] 29 mg/dL 5-40 [facility] Serum or plasma creatinine m easurement (mass/volume)Ordered By: Rocky Barlow on 12-03-2022 Creatinine [Mass/Vol] 0.57 mg/dL 0.55-1.02 [facility] Comment on above: The validity of the calculated GFR & GFRAA in patients over 70 years has not been determined. Clinical correlation is essential. Serum or plasma low density lipoprotein (LDL) cholesterol measurement (mass/volume)Ordered By: Rocky Barlow on 12-03-2022 Cholesterol in LDL [Mass/Vol] 124 mg/dL 0-130 [facility] Serum or plasma urea nitroge n measurement (mass/volume)Ordered By: Rocky Barlow on 12-03-2022 Urea nitrogen [Mass/Vol] 6 mg/dL 7-18 [facility] Thin prep Papanicolaou smear with manual screeningOrdered By: Rocky Barlow on 12-03-2022 Thin prep Papanicolaou smear with manual screening 11 U/L 15-37 [facility] Thin prep Papanicolaou smear with manual screening 5 5-15 [facility] Absolute lymphocyte countOrd ered By: Raul Viveros on 08-15-2022 Lymphocytes Auto (Unsp spec) [#/Vol] 2.64 10*3/uL 0.83-4.51 [facility] Basophil percentageOrdered B y: Raul Viveros on 08-15-2022 Basophil percentage 0 SEEN /hpf 0-5 [facility] Basophils/100 WBC (Bld) 0.5 % 0-1 [facility] Chloride [Moles/Vol] 109 mmol/L 98-107 [facility] Eosinophils/100 WBC (Bld) 3.2 % 0-5 [facility] Glucose [Mass/Vol] 118 mg/dL 74-106 [facility] Comment on above: Fasting Glucose resu lt from 100 to 125 mg/dL suggests IMPAIRED HOMEOSTASIS per A.D.A. criteria. Lactate [Moles/Vol] 4.6 mmol/L 0.4-2.0 [facility] Comment on above: Critical Result(s) C alled at: 17:45:37 08/15/2022 by: Halie Espinosa. Results read back by same. Neutrophils (Bld) [#/Vol] 5.7 10*3/uL 2.0-7.7 [facility] Neutrophils/100 WBC (Bld) 59.8 % 47-70 [facility] Potassium [Moles/Vol] 3.2 mmol/L 3.5-5.1 [facility] Sodium [Moles/Vol] 142 mmol/L 136-145 [facility] WBC (Bld) [#/Vol] 9.6 10*3/uL 4.4-11.0 [facility] Bilirubin Test strip Ql (U)O rdered By: Raul Viveros on 08-15-2022 Bilirubin Ql (U) Negative Negative [facility] Blood erythrocytes count (nu mber/volume)Ordered By: Raul Viveros on 08-15-2022 RBC (Bld) [#/Vol] 4.49 10*6/uL 4.2-5.4 [facility] Blood hemoglobin measurement (mass/volume)Ordered By: Raul Viveros on 08-15-2022 Hemoglobin (Bld) [Mass/Vol] 14.3 g/dL 12.0-15.0 [facility] Blood lymphocytes/100 leukoc ytesOrdered By: aRul Viveros on 08-15-2022 Lymphocytes/100 WBC (Bld) 27.6 % 19-41 [facility] Blood monocytes/100 leukocyt esOrdered By: Raul Viveros on 08-15-2022 Monocytes/100 WBC (Bld) 8.7 % 0-10 [facility] Blood platelet mean volumeOr dered By: Raul Viveros on 08-15-2022 Platelet mean volume (Bld) [Entitic vol] 11.1 fL 6.2-12.0 [facility] Determination of erythrocyte mean corpuscular volume (MCV)Ordered By: Raul Viveros on 08-15-2022 MCV (RBC) [Entitic vol] 97.6 fL 81-99 [facility] Hematocrit Auto (Bld) [Volum e fraction]Ordered By: Raul Viveros on 08-15-2022 Hematocrit (Bld) [Volume fraction] 43.8 % 37-47 [facility] Influenza virus A and B and SARS-CoV-2 (COVID-19) Ag panel - Upper respiratory specimOrdered By: Raul Viveros on 08-15-2022 SARS-CoV-2 (COVID-19) RNA WILLIAM+probe Ql (Resp) [facility] Ketones Test strip Ql (U)Ord ered By: Raul Viveros on 08-15-2022 Ketones Ql (U) 5 mg/dl Negative [facility] Laboratory - Chemistry and C hemistry - challengeOrdered By: [facility] on 08-15-2022 CO2 [Moles/Vol] 28.0 mmol/L 21.0-32.0 [facility] Urea nitrogen/Creatinine [Mass ratio] 13.5 mg/mg 10-20 [facility] Laboratory - Hematology and Cell countsOrdered By: Raul Viveros on 08-15-2022 Erythrocyte distribution width (RBC) [Entitic vol] 49.0 fL 35.1-43.9 [facility] Erythrocyte distribution width (RBC) [Ratio] 13.5 % 11.6-14.6 [facility] Immature granulocytes/100 WBC (Bld) 0.200 % 0.0-0.9 [facility] Comment on above: IG% - Immature Granu locytes (promyelocytes, myelocytes and metamyelocytes) > 1% indicates that a LEFT SHIFT is Present. MCH (RBC) [Entitic mass] 31.8 pg 27.0-32.0 [facility] Nucleated RBC/100 WBC (Bld) [Ratio] 0 % 0-5 [facility] Laboratory - Microbiology an d Antimicrobial susceptibilityOrdered By: Raul Viveros on 08-15-2022 Bacteria identified Cx Nom (Bld) No growth in 5 days. [facility] MCHC Auto (RBC) [Mass/Vol]Or dered By: Raul Viveros on 08-15-2022 MCHC (RBC) [Mass/Vol] 32.6 g/dL 32-36 [facility] Mucus LM Ql (Urine sed)Order ed By: Raul Gradyaidan on 08-15-2022 Mucus Ql (Urine sed) 0 SEEN /hpf [facility] Nitrite Test strip Ql (U)Ord ered By: Rem Ungaidan on 08-15-2022 Nitrite Ql (U) Negative Negative [facility] No Panel InformationOrdered By: Remus Gradyaidan on 08-15-2022 Estimated Creatinine Clearance Calc 71.92 ml/min [facility] Estimated GFR (MDRD) Amer 132 mL/min >60 [facility] Comment on above: GFR Calc Estimated GFR (MDRD) Non-Af Amer 109 mL/min >60 [facility] Comment on above: Non- GFR Calc Platelets bldOrdered By: Danette ruano Jackeline on 08-15-2022 Platelets (Bld) [#/Vol] 284 10*3/uL 150-450 [facility] Protein Test strip Ql (U)Ord ered By: Rem Ungaidan on 08-15-2022 Protein Ql (U) Negative Negative [facility] Serum or plasma calcium kamilah urement (mass/volume)Ordered By: Remus Gradyaidan on 08-15-2022 Calcium [Mass/Vol] 9.0 mg/dL 8.5-10.1 [facility] Serum or plasma creatinine m easurement (mass/volume)Ordered By: Raul Gradyaidan on 08-15-2022 Creatinine [Mass/Vol] 0.59 mg/dL 0.55-1.02 [facility] Comment on above: The validity of the calculated GFR & GFRAA in patients over 70 years has not been determined. Clinical correlation is essential. Serum or plasma urea nitroge n measurement (mass/volume)Ordered By: Raul Gradyaidan on 08-15-2022 Urea nitrogen [Mass/Vol] 8 mg/dL 7-18 [facility] Squamous epithelial cells de tection in urine sediment by light microscopyOrdered By: Danette Ysabelaidan on 08-15-2022 Epithelial cells.squamous LM Ql (Urine sed) 0 SEEN /hpf 5-10 [facility] Thin prep Papanicolaou smear with manual screeningOrdered By: Remus Viveros on 08-15-2022 Thin prep Papanicolaou smear with manual screening 5 5-15 [facility] Urine blood detectionOrdered By: Raul Viveros on 08-15-2022 RBC Ql (U) Negative Negative [facility] RBC Ql (U) 0 SEEN /hpf 0-5 [facility] Urine clarityOrdered By: Danette us Jackeline on 08-15-2022 Clarity (U) Clear Clear [facility] Urine color determinationOrd ered By: Raul Viveros on 08-15-2022 Color (U) Yellow Yellow [facility] Urine glucose detectionOrder ed By: Raul Viveros on 08-15-2022 Glucose Ql (U) Normal mg/dl Normal [facility] Urine leukocyte esterase det ection by dipstickOrdered By: Raul Viveros on 08-15-2022 Leukocyte esterase Test strip Ql (U) Negative Negative [facility] Urine pHOrdered By: Raul Samuel gur on 08-15-2022 pH (U) 5.0 [pH] 5.0 - 8.0 [facility] Urine sediment bacteria coun t by microscopy (number/high power field)Ordered By: Raul Viveros on 08-15-2022 Bacteria LM.HPF (Urine sed) [#/Area] 0 /[HPF] None Seen [facility] Urine specific gravity measu rementOrdered By: Raul Viveros on 08-15-2022 Specific gravity (U) [Rel density] 1.015 1.002-1.030 [facility] Urobilinogen Auto test strip Ql (U)Ordered By: Raul Viveros on 08-15-2022 Urobilinogen Ql (U) Normal mg/dl Normal [facility] Absolute lymphocyte countOrd ered By: Dr. Barlow on 05-30-2022 Lymphocytes Auto (Unsp spec) [#/Vol] 3.00 10*3/uL 0.83-4.51 [facility] Basophil percentageOrdered B y: Dr. Barlow on 05-30-2022 Basophils/100 WBC (Bld) 0.8 % 0-1 [facility] Bilirubin [Mass/Vol] 0.40 mg/dL 0.20-1.00 [facility] Comment on above: For patients on eltr ombopag therapy, use of Dimension [place] TBIL is not recommended. Chloride [Moles/Vol] 105 mmol/L 98-107 [facility] Cholesterol [Mass/Vol] 219 mg/dL <200 [facility] Comment on above: <200 mg/dL Desirable 200-240 mg/dL Borderline >240 mg/dL High Risk Eosinophils/100 WBC (Bld) 6.3 % 0-5 [facility] Glucose [Mass/Vol] 87 mg/dL 74-106 [facility] Neutrophils (Bld) [#/Vol] 3.6 10*3/uL 2.0-7.7 [facility] Neutrophils/100 WBC (Bld) 47.3 % 47-70 [facility] Potassium [Moles/Vol] 3.8 mmol/L 3.5-5.1 [facility] Comment on above: Moderate Hemolysis, Result may be falsely increased. Protein [Mass/Vol] 7.5 g/dL 6.4-8.2 [facility] Sodium [Moles/Vol] 140 mmol/L 136-145 [facility] Triglyceride [Mass/Vol] 66 mg/dL <199 [facility] Comment on above: The drugs N-Acetylcy steine and Metamizole may falsely depress this assay.Serum Triglycerides Reference Interval Normal <150 mg/dL Borderline high 150 - 199 mg/dL High 200 - 499 mg/dL Very High > or = 500 mg/dL WBC (Bld) [#/Vol] 7.6 10*3/uL 4.4-11.0 [facility] Blood erythrocytes count (nu mber/volume)Ordered By: Dr. Barlow on 05-30-2022 RBC (Bld) [#/Vol] 4.52 10*6/uL 4.2-5.4 [facility] Blood hemoglobin measurement (mass/volume)Ordered By: Dr. Barlow on 05-30-2022 Hemoglobin (Bld) [Mass/Vol] 14.1 g/dL 12.0-15.0 [facility] Blood lymphocytes/100 leukoc ytesOrdered By: Dr. Barlow on 05-30-2022 Lymphocytes/100 WBC (Bld) 39.3 % 19-41 [facility] Blood monocytes/100 leukocyt esOrdered By: Dr. Barlow on 05-30-2022 Monocytes/100 WBC (Bld) 6.2 % 0-10 [facility] Blood platelet mean volumeOr dered By: Dr. Barlow on 05-30-2022 Platelet mean volume (Bld) [Entitic vol] 11.0 fL 6.2-12.0 [facility] Determination of erythrocyte mean corpuscular volume (MCV)Ordered By: Dr. Barlow on 05-30-2022 MCV (RBC) [Entitic vol] 96.0 fL 81-99 [facility] Hematocrit Auto (Bld) [Volum e fraction]Ordered By: Dr. Barlow on 05-30-2022 Hematocrit (Bld) [Volume fraction] 43.4 % 37-47 [facility] Laboratory - Chemistry and C hemistry - challengeOrdered By: Dr. Barlow on 05-30-2022 ALP [Catalytic activity/Vol] 100 U/L 45-117 [facility] ALT [Catalytic activity/Vol] 20 U/L 13-56 [facility] CO2 [Moles/Vol] 26.0 mmol/L 21.0-32.0 [facility] Globulin (S) [Mass/Vol] 3.8 g/dL 2.2-4.2 [facility] Urea nitrogen/Creatinine [Mass ratio] 12.8 mg/mg 10-20 [facility] Laboratory - Hematology and Cell countsOrdered By: Dr. Barlow on 05-30-2022 Erythrocyte distribution width (RBC) [Entitic vol] 49.1 fL 35.1-43.9 [facility] Erythrocyte distribution width (RBC) [Ratio] 13.8 % 11.6-14.6 [facility] Immature granulocytes/100 WBC (Bld) 0.100 % 0.0-0.9 [facility] Comment on above: IG% - Immature Granu locytes (promyelocytes, myelocytes and metamyelocytes) > 1% indicates that a LEFT SHIFT is Present. MCH (RBC) [Entitic mass] 31.2 pg 27.0-32.0 [facility] Nucleated RBC/100 WBC (Bld) [Ratio] 0 % 0-5 [facility] MCHC Auto (RBC) [Mass/Vol]Or dered By: Dr. Barlow on 05-30-2022 MCHC (RBC) [Mass/Vol] 32.5 g/dL 32-36 [facility] No Panel InformationOrdered By: Dr. Barlow on 05-30-2022 Estimated GFR (MDRD) Amer 145 mL/min >60 [facility] Comment on above: GFR Calc Estimated GFR (MDRD) Non-Af Amer 120 mL/min >60 [facility] Comment on above: Non- GFR Calc Thyroid Stimulating Hormone (TSH) 1.39 uIU/mL 0.358-3.74 [facility] Vitamin D 25-Hydroxy 48.5 ng/mL [facility] Comment on above: Vitamin D 25(OH) Sta tus Range Deficiency <20 ng/mL (50nmol/L) Insufficiency 20 - 30 ng/mL (50 - 75 nmol/L) Sufficiency 30 - 100 ng/mL (75 - 250 nmol/L) Toxicity >100 ng/mL (>250 nmol/L) Platelets bldOrdered By: Dr. Barlow on 05-30-2022 Platelets (Bld) [#/Vol] 311 10*3/uL 150-450 [facility] Serum or plasma albumin kamilah urement (mass/volume)Ordered By: Dr. Barlow on 05-30-2022 Albumin [Mass/Vol] 3.7 g/dL 3.2-5.0 [facility] Serum or plasma albumin/glob ulin mass ratioOrdered By: Dr. Barlow on 05-30-2022 Albumin/Globulin [Mass ratio] 1.0 {ratio} 0.9-2.4 [facility] Serum or plasma calcium kamilah urement (mass/volume)Ordered By: Dr. Barlow on 05-30-2022 Calcium [Mass/Vol] 9.2 mg/dL 8.5-10.1 [facility] Serum or plasma cholesterol in HDL measurement (mass/volume)Ordered By: Dr. Barlow on 05-30-2022 Cholesterol in HDL [Mass/Vol] 73 mg/dL >40 [facility] Comment on above: The drugs N-Acetylcy steine and Metamizole may falsely depress this assay. Reference Range HDL <40 mg/dL Low HDL Cholesterol HDL >or= 60 mg/dL High HDL Cholesterol Serum or plasma cholesterol in VLDL measurement (mass/volume)Ordered By: Dr. Barlow on 05-30-2022 Cholesterol in VLDL [Mass/Vol] 13 mg/dL 5-40 [facility] Serum or plasma creatinine m easurement (mass/volume)Ordered By: Dr. Barlow on 05-30-2022 Creatinine [Mass/Vol] 0.55 mg/dL 0.55-1.02 [facility] Comment on above: The validity of the calculated GFR & GFRAA in patients over 70 years has not been determined. Clinical correlation is essential. Serum or plasma low density lipoprotein (LDL) cholesterol measurement (mass/volume)Ordered By: Dr. Barlow on 05-30-2022 Cholesterol in LDL [Mass/Vol] 133 mg/dL 0-130 [facility] Serum or plasma urea nitroge n measurement (mass/volume)Ordered By: Dr. Barlow on 05-30-2022 Urea nitrogen [Mass/Vol] 7 mg/dL 7-18 [facility] Thin prep Papanicolaou smear with manual screeningOrdered By: Dr. Barlow on 05-30-2022 Thin prep Papanicolaou smear with manual screening 20 U/L 15-37 [facility] Comment on above: Moderate Hemolysis, Result may be falsely increased. Thin prep Papanicolaou smear with manual screening 9 5-15 [facility] Laboratory - Microbiology an d Antimicrobial susceptibilityOrdered By: Dr. Barlow on 03-29-2022 SARS-CoV-2 (COVID-19) RNA WILLIAM+probe Ql (Unsp spec) Not detected Not Detect [facility] Comment on above: Normal Reference Ran ge: [...] 03-29-2022 Influenza Types A,B Direct FA (DENY) [facility] RSV Ag EIAOrdered By: Dr. Deisi sloan on 03-29-2022 RSV Ag Immune stain Ql (Tiss) [facility] Absolute lymphocyte countOrd ered By: Dr. Palomino on 03-21-2022 Lymphocytes Auto (Unsp spec) [#/Vol] 2.24 10*3/uL 0.83-4.51 [facility] Basophil percentageOrdered B y: Dr. Palomino on 03-21-2022 Basophils/100 WBC (Bld) 0.5 % 0-1 [facility] Bilirubin [Mass/Vol] 0.30 mg/dL 0.20-1.00 [facility] Comment on above: For patients on eltr ombopag therapy, use of Dimension [place] TBIL is not recommended. Chloride [Moles/Vol] 107 mmol/L 98-107 [facility] Eosinophils/100 WBC (Bld) 2.5 % 0-5 [facility] Glucose [Mass/Vol] 118 mg/dL 74-106 [facility] Comment on above: Fasting Glucose resu lt from 100 to 125 mg/dL suggests IMPAIRED HOMEOSTASIS per A.D.A. criteria. Neutrophils (Bld) [#/Vol] 8.8 10*3/uL 2.0-7.7 [facility] Neutrophils/100 WBC (Bld) 70.5 % 47-70 [facility] Potassium [Moles/Vol] 3.7 mmol/L 3.5-5.1 [facility] Protein [Mass/Vol] 7.9 g/dL 6.4-8.2 [facility] Sodium [Moles/Vol] 142 mmol/L 136-145 [facility] WBC (Bld) [#/Vol] 12.5 10*3/uL 4.4-11.0 [facility] Blood erythrocytes count (nu mber/volume)Ordered By: Dr. Palomino on 03-21-2022 RBC (Bld) [#/Vol] 4.52 10*6/uL 4.2-5.4 [facility] Blood hemoglobin measurement (mass/volume)Ordered By: Dr. Palomino on 03-21-2022 Hemoglobin (Bld) [Mass/Vol] 14.1 g/dL 12.0-15.0 [facility] Blood lymphocytes/100 leukoc ytesOrdered By: Dr. Palomino on 03-21-2022 Lymphocytes/100 WBC (Bld) 17.9 % 19-41 [facility] Blood monocytes/100 leukocyt esOrdered By: Dr. Palomino on 03-21-2022 Monocytes/100 WBC (Bld) 8.3 % 0-10 [facility] Blood platelet mean volumeOr dered By: Dr. Palomino on 03-21-2022 Platelet mean volume (Bld) [Entitic vol] 10.6 fL 6.2-12.0 [facility] Determination of erythrocyte mean corpuscular volume (MCV)Ordered By: Dr. Palomino on 03-21-2022 MCV (RBC) [Entitic vol] 96.7 fL 81-99 [facility] Hematocrit Auto (Bld) [Volum e fraction]Ordered By: Dr. Palomino on 03-21-2022 Hematocrit (Bld) [Volume fraction] 43.7 % 37-47 [facility] Influenza virus A and B and SARS-CoV-2 (COVID-19) Ag panel - Upper respiratory specimOrdered By: Dr. Palomino on 03-21-2022 SARS-CoV-2 (COVID-19) RNA WILLIAM+probe Ql (Resp) [facility] Laboratory - Chemistry and C hemistry - challengeOrdered By: Dr. Palomino on 03-21-2022 ALP [Catalytic activity/Vol] 109 U/L 45-117 [facility] ALT [Catalytic activity/Vol] 15 U/L 13-56 [facility] CO2 [Moles/Vol] 31.0 mmol/L 21.0-32.0 [facility] Globulin (S) [Mass/Vol] 4.2 g/dL 2.2-4.2 [facility] Urea nitrogen/Creatinine [Mass ratio] 14.4 mg/mg 10-20 [facility] Laboratory - Hematology and Cell countsOrdered By: Dr. Palomino on 03-21-2022 Erythrocyte distribution width (RBC) [Entitic vol] 49.3 fL 35.1-43.9 [facility] Erythrocyte distribution width (RBC) [Ratio] 13.7 % 11.6-14.6 [facility] Immature granulocytes/100 WBC (Bld) 0.300 % 0.0-0.9 [facility] Comment on above: IG% - Immature Granu locytes (promyelocytes, myelocytes and metamyelocytes) > 1% indicates that a LEFT SHIFT is Present. MCH (RBC) [Entitic mass] 31.2 pg 27.0-32.0 [facility] Nucleated RBC/100 WBC (Bld) [Ratio] 0 % 0-5 [facility] MCHC Auto (RBC) [Mass/Vol]Or dered By: Dr. Palomino on 03-21-2022 MCHC (RBC) [Mass/Vol] 32.3 g/dL 32-36 [facility] No Panel InformationOrdered By: Dr. Palomino on 03-21-2022 Estimated Creatinine Clearance Calc 82.08 ml/min [facility] Estimated GFR (MDRD) Amer 143 mL/min >60 [facility] Comment on above: GFR Calc Estimated GFR (MDRD) Non-Af Amer 119 mL/min >60 [facility] Comment on above: Non- GFR Calc Platelets bldOrdered By: Dr. Palomino on 03-21-2022 Platelets (Bld) [#/Vol] 278 10*3/uL 150-450 [facility] Serum or plasma albumin kamilah urement (mass/volume)Ordered By: Dr. Palomino on 03-21-2022 Albumin [Mass/Vol] 3.7 g/dL 3.2-5.0 [facility] Serum or plasma albumin/glob ulin mass ratioOrdered By: Dr. Palomino on 03-21-2022 Albumin/Globulin [Mass ratio] 0.9 {ratio} 0.9-2.4 [facility] Serum or plasma calcium kamilah urement (mass/volume)Ordered By: Dr. Palomino on 03-21-2022 Calcium [Mass/Vol] 9.4 mg/dL 8.5-10.1 [facility] Serum or plasma creatinine m easurement (mass/volume)Ordered By: Dr. Palomino on 03-21-2022 Creatinine [Mass/Vol] 0.55 mg/dL 0.55-1.02 [facility] Comment on above: The validity of the calculated GFR & GFRAA in patients over 70 years has not been determined. Clinical correlation is essential. Serum or plasma urea nitroge n measurement (mass/volume)Ordered By: Dr. Palomino on 03-21-2022 Urea nitrogen [Mass/Vol] 8 mg/dL 7-18 [facility] Thin prep Papanicolaou smear with manual screeningOrdered By: Dr. Palomino on 03-21-2022 Thin prep Papanicolaou smear with manual screening 10 U/L 15-37 [facility] Thin prep Papanicolaou smear with manual screening 4 5-15 [facility] Laboratory - Microbiology an d Antimicrobial susceptibilityon 01-21-2022 SARS-CoV-2 (COVID-19) RNA WILLIAM+probe Ql (Unsp spec) Not detected [facility] No Panel Informationon 01-21 Influenza Types A,B Rapid (Clinic) Not detected [facility] Absolute lymphocyte countOrd ered By: Dr. Ann on 01-03-2022 Lymphocytes Auto (Unsp spec) [#/Vol] 1.37 10*3/uL 0.83-4.51 [facility] Basophil percentageOrdered B y: Dr. Ann on 01-03-2022 Basophils/100 WBC (Bld) 0.2 % 0-1 [facility] Chloride [Moles/Vol] 108 mmol/L 98-107 [facility] Eosinophils/100 WBC (Bld) 0.0 % 0-5 [facility] Glucose [Mass/Vol] 124 mg/dL 74-106 [facility] Comment on above: Fasting Glucose resu lt from 100 to 125 mg/dL suggests IMPAIRED HOMEOSTASIS per A.D.A. criteria. Neutrophils (Bld) [#/Vol] 7.9 10*3/uL 2.0-7.7 [facility] Neutrophils/100 WBC (Bld) 79.9 % 47-70 [facility] Potassium [Moles/Vol] 3.8 mmol/L 3.5-5.1 [facility] Sodium [Moles/Vol] 143 mmol/L 136-145 [facility] WBC (Bld) [#/Vol] 9.9 10*3/uL 4.4-11.0 [facility] Blood erythrocytes count (nu mber/volume)Ordered By: Dr. Ann on 01-03-2022 RBC (Bld) [#/Vol] 4.49 10*6/uL 4.2-5.4 [facility] Blood hemoglobin measurement (mass/volume)Ordered By: Dr. Ann on 01-03-2022 Hemoglobin (Bld) [Mass/Vol] 14.5 g/dL 12.0-15.0 [facility] Blood lymphocytes/100 leukoc ytesOrdered By: Dr. Ann on 01-03-2022 Lymphocytes/100 WBC (Bld) 13.8 % 19-41 [facility] Blood monocytes/100 leukocyt esOrdered By: Dr. Ann on 01-03-2022 Monocytes/100 WBC (Bld) 5.5 % 0-10 [facility] Blood platelet mean volumeOr dered By: Dr. Ann on 01-03-2022 Platelet mean volume (Bld) [Entitic vol] 10.9 fL 6.2-12.0 [facility] Determination of erythrocyte mean corpuscular volume (MCV)Ordered By: Dr. Ann on 01-03-2022 MCV (RBC) [Entitic vol] 96.0 fL 81-99 [facility] Hematocrit Auto (Bld) [Volum e fraction]Ordered By: Dr. Ann on 01-03-2022 Hematocrit (Bld) [Volume fraction] 43.1 % 37-47 [facility] Laboratory - Chemistry and C hemistry - challengeOrdered By: Dr. Ann on 01-03-2022 CO2 [Moles/Vol] 28.0 mmol/L 21.0-32.0 [facility] Urea nitrogen/Creatinine [Mass ratio] 27.4 mg/mg 10-20 [facility] Laboratory - Hematology and Cell countsOrdered By: Dr. Ann on 01-03-2022 Erythrocyte distribution width (RBC) [Entitic vol] 51.5 fL 35.1-43.9 [facility] Erythrocyte distribution width (RBC) [Ratio] 14.5 % 11.6-14.6 [facility] Immature granulocytes/100 WBC (Bld) 0.600 % 0.0-0.9 [facility] Comment on above: IG% - Immature Granu locytes (promyelocytes, myelocytes and metamyelocytes) > 1% indicates that a LEFT SHIFT is Present. MCH (RBC) [Entitic mass] 32.3 pg 27.0-32.0 [facility] Nucleated RBC/100 WBC (Bld) [Ratio] 0 % 0-5 [facility] MCHC Auto (RBC) [Mass/Vol]Or dered By: Dr. Ann on 01-03-2022 MCHC (RBC) [Mass/Vol] 33.6 g/dL 32-36 [facility] No Panel InformationOrdered By: Dr. Ann on 01-03-2022 Estimated Creatinine Clearance Calc 78.13 ml/min [facility] Estimated GFR (MDRD) Amer 146 mL/min >60 [facility] Comment on above: GFR Calc Estimated GFR (MDRD) Non-Af Amer 120 mL/min >60 [facility] Comment on above: Non- GFR Calc Platelets bldOrdered By: Dr. Ann on 01-03-2022 Platelets (Bld) [#/Vol] 277 10*3/uL 150-450 [facility] Serum or plasma calcium kamilah urement (mass/volume)Ordered By: Dr. Ann on 01-03-2022 Calcium [Mass/Vol] 9.6 mg/dL 8.5-10.1 [facility] Serum or plasma creatinine m easurement (mass/volume)Ordered By: Dr. Ann on 01-03-2022 Creatinine [Mass/Vol] 0.55 mg/dL 0.55-1.02 [facility] Comment on above: The validity of the calculated GFR & GFRAA in patients over 70 years has not been determined. Clinical correlation is essential. Serum or plasma urea nitroge n measurement (mass/volume)Ordered By: Dr. Ann on 01-03-2022 Urea nitrogen [Mass/Vol] 15 mg/dL 7-18 [facility] Thin prep Papanicolaou smear with manual screeningOrdered By: Dr. Ann on 01-03-2022 Thin prep Papanicolaou smear with manual screening 7 5-15 [facility] Basophil percentageOrdered B y: Dr. Fortune on 01-02-2022 Lactate [Moles/Vol] 1.8 mmol/L 0.4-2.0 [facility] Laboratory - Microbiology an d Antimicrobial susceptibilityOrdered By: Dr. Barlow on 12-31-2021 SARS-CoV-2 (COVID-19) RNA WILLIAM+probe Ql (Unsp spec) Not detected Not Detect [facility] Comment on above: Normal Reference Ran ge: [...] 12-31-2021 Influenza Types A,B Direct FA (DENY) [facility] RSV Ag Immune stain Ql (Tiss )Ordered By: Dr. Barlow on 12-31-2021 Rapid RSV (DFA) RSV Antigen [facility] Laboratory - Microbiology an d Antimicrobial susceptibilityon 11-30-2021 SARS-CoV-2 (COVID-19) RNA WILLIAM+probe Ql (Unsp spec) Not detected Not Detect [facility] Work Phone: Comment on above: Normal Reference [...] Auto (Unsp spec) [#/Vol] 2.65 10*3/uL 0.83-4.51 [facility] Work Phone: Basophil percentageon 2021 Basophils/100 WBC (Bld) 0.6 % 0-1 [facility] Work Phone: Bilirubin [Mass/Vol] 0.20 mg/dL 0.20-1.00 [facility] Work Phone: Comment on above: For patients on eltr ombopag therapy, use of Dimension [place] TBIL is not recommended. Chloride [Moles/Vol] 103 mmol/L 98-107 [facility] Work Phone: Eosinophils/100 WBC (Bld) 3.5 % 0-5 [facility] Work Phone: Glucose [Mass/Vol] 98 mg/dL 74-106 [facility] Work Phone: Neutrophils (Bld) [#/Vol] 6.8 10*3/uL 2.0-7.7 [facility] Work Phone: Neutrophils/100 WBC (Bld) 64.9 % 47-70 [facility] Work Phone: Potassium [Moles/Vol] 3.8 mmol/L 3.5-5.1 [facility] Work Phone: Comment on above: Slight Hemolysis, Re sult may be falsely increased. Protein [Mass/Vol] 7.8 g/dL 6.4-8.2 [facility] Work Phone: Sodium [Moles/Vol] 138 mmol/L 136-145 [facility] Work Phone: WBC (Bld) [#/Vol] 10.4 10*3/uL 4.4-11.0 [facility] Work Phone: Blood erythrocytes count (nu mber/volume)on 11-28-2021 RBC (Bld) [#/Vol] 4.40 10*6/uL 4.2-5.4 [facility] Work Phone: Blood hemoglobin measurement (mass/volume)on 11-28-2021 Hemoglobin (Bld) [Mass/Vol] 14.0 g/dL 12.0-15.0 [facility] Work Phone: Blood lymphocytes/100 leukoc yteson 11-28-2021 Lymphocytes/100 WBC (Bld) 25.4 % 19-41 [facility] Work Phone: Blood monocytes/100 leukocyt eson 11-28-2021 Monocytes/100 WBC (Bld) 5.2 % 0-10 [facility] Work Phone: Blood platelet mean volumeon 11-28-2021 Platelet mean volume (Bld) [Entitic vol] 11.6 fL 6.2-12.0 [facility] Work Phone: Determination of erythrocyte mean corpuscular volume (MCV)on 11-28-2021 MCV (RBC) [Entitic vol] 97.0 fL 81-99 [facility] Work Phone: Hematocrit Auto (Bld) [Volum e fraction]on 11-28-2021 Hematocrit (Bld) [Volume fraction] 42.7 % 37-47 [facility] Work Phone: [phone] Laboratory - Chemistry and C hemistry - challengeon 11-28-2021 ALP [Catalytic activity/Vol] 109 U/L 45-117 [facility] Work Phone: ALT [Catalytic activity/Vol] 24 U/L 13-56 [facility] Work Phone: CO2 [Moles/Vol] 26.0 mmol/L 21.0-32.0 [facility] Work Phone: Globulin (S) [Mass/Vol] 4.1 g/dL 2.2-4.2 [facility] Work Phone: Urea nitrogen/Creatinine [Mass ratio] 24.8 mg/mg 10-20 [facility] Work Phone: Laboratory - Hematology and Cell countson 11-28-2021 Erythrocyte distribution width (RBC) [Entitic vol] 49.1 fL 35.1-43.9 [facility] Work Phone: Erythrocyte distribution width (RBC) [Ratio] 13.8 % 11.6-14.6 [facility] Work Phone: Immature granulocytes/100 WBC (Bld) 0.400 % 0.0-0.9 [facility] Work Phone: Comment on above: IG% - Immature Granu locytes (promyelocytes, myelocytes and metamyelocytes) > 1% indicates that a LEFT SHIFT is Present. MCH (RBC) [Entitic mass] 31.8 pg 27.0-32.0 [facility] Work Phone: Nucleated RBC/100 WBC (Bld) [Ratio] 0 % 0-5 [facility] Work Phone: MCHC Auto (RBC) [Mass/Vol]on 11-28-2021 MCHC (RBC) [Mass/Vol] 32.8 g/dL 32-36 [facility] Work Phone: No Panel Informationon 11-28 Estimated GFR (MDRD) Amer 153 mL/min >60 [facility] Work Phone: Comment on above: GFR Calc Estimated GFR (MDRD) Non-Af Amer 126 mL/min >60 [facility] Work Phone: Comment on above: Non- GFR Calc Thyroid Stimulating Hormone (TSH) 1.16 uIU/mL 0.358-3.74 [facility] Work Phone: Vitamin D 25-Hydroxy 31.6 ng/mL [facility] Work Phone: Comment on above: Vitamin D 25(OH) Sta tus Range Deficiency <20 ng/mL (50nmol/L) Insufficiency 20 - 30 ng/mL (50 - 75 nmol/L) Sufficiency 30 - 100 ng/mL (75 - 250 nmol/L) Toxicity >100 ng/mL (>250 nmol/L) Platelets bldon 11-28-2021 Platelets (Bld) [#/Vol] 304 10*3/uL 150-450 [facility] Work Phone: Serum or plasma albumin kamilah urement (mass/volume)on 11-28-2021 Albumin [Mass/Vol] 3.7 g/dL 3.2-5.0 [facility] Work Phone: Serum or plasma albumin/glob ulin mass ratioon 11-28-2021 Albumin/Globulin [Mass ratio] 0.9 {ratio} 0.9-2.4 [facility] Work Phone: Serum or plasma calcium kamilah urement (mass/volume)on 11-28-2021 Calcium [Mass/Vol] 9.0 mg/dL 8.5-10.1 [facility] Work Phone: Serum or plasma creatinine m easurement (mass/volume)on 11-28-2021 Creatinine [Mass/Vol] 0.52 mg/dL 0.55-1.02 [facility] Work Phone: Comment on above: The validity of the calculated GFR & GFRAA in patients over 70 years has not been determined. Clinical correlation is essential. Serum or plasma urea nitroge n measurement (mass/volume)on 11-28-2021 Urea nitrogen [Mass/Vol] 13 mg/dL 7-18 [facility] Work Phone: Thin prep Papanicolaou smear with manual screeningon 11-28-2021 Thin prep Papanicolaou smear with manual screening 21 U/L 15-37 [facility] Work Phone: Comment on above: Slight Hemolysis, Re sult may be falsely increased. Thin prep Papanicolaou smear with manual screening 9 5-15 [facility] Work Phone: BACTERIAL VAGINOSIS AMPLIFIC ATIONon 10-27-2021 Lactobacillus crispatus+gasseri+jense heather + Gardnerella vaginalis + Atopobium vaginae rRNA WILLIAM+probe Ql (Vag fld) Negative Negative for bacterial vaginosis [facility] ONESIMO / TRICHOMONAS AMPLIF ICATIONon 10-27-2021 C. glabrata RNA WILLIAM+probe Ql (Vag fld) Negative Negative for Onesimo glabrata [facility] Onesimo albicans, C. dubliniensis, C. parapsilosis, and C. tropicalis RNA WILLIAM+probe Ql (Vag fld) Negative Negative for Onesimo species [facility] T. vaginalis DNA WILLIAM+probe Ql (Unsp spec) Negative Negative for Trichomonas vaginalis by amplification [facility] UA DIP, URINE (POC)on 2021 BILIRUBIN UA (POCT) Negative Negative [facility] CLARITY UA (POCT) Clear [facility] COLOR UA (POCT) Dark yellow [facility] GLUCOSE UA (POCT) Negative Negative mg/dL [facility] HEMOGLOBIN/BLOOD UA (POCT) Negative Negative [facility] KETONE UA (POCT) Negative Negative mg/dL [facility] LEUKOCYTES UA (POCT) Negative Negative [facility] NITRITE UA (POCT) Negative Negative [facility] PH UA (POCT) 6.0 4.5 - 8.0 [facility] Protein Ql (U) Negative Negative mg/dL [facility] SPECIFIC GRAVITY UA (POCT) >=1.030 1.005 - 1.030 [facility] UROBILINOGEN UA (POCT) 0.2 E.U./dL Normal E.U./ dL [facility] Culture, urineon 07-27-2021 Bacteria identified Cx Nom (U) Mixed Gram Pos & Gram Neg Org [facility] Work Phone: [phone] Absolute lymphocyte counton 07-26-2021 Lymphocytes Auto (Unsp spec) [#/Vol] 2.58 10*3/uL 0.83-4.51 [facility] Work Phone: Basophil percentageon 2021 Basophils/100 WBC (Bld) 0.7 % 0-1 [facility] Work Phone: Eosinophils/100 WBC (Bld) 2.2 % 0-5 [facility] Work Phone: [phone] Neutrophils (Bld) [#/Vol] 4.6 10*3/uL 2.0-7.7 [facility] Work Phone: Neutrophils/100 WBC (Bld) 57.1 % 47-70 [facility] Work Phone: WBC (Bld) [#/Vol] 8.0 10*3/uL 4.4-11.0 [facility] Work Phone: Blood erythrocytes count (nu mber/volume)on 07-26-2021 RBC (Bld) [#/Vol] 5.03 10*6/uL 4.2-5.4 [facility] Work Phone: Blood hemoglobin measurement (mass/volume)on 07-26-2021 Hemoglobin (Bld) [Mass/Vol] 16.1 g/dL 12.0-15.0 [facility] Work Phone: Blood lymphocytes/100 leukoc yteson 07-26-2021 Lymphocytes/100 WBC (Bld) 32.1 % 19-41 [facility] Work Phone: Blood monocytes/100 leukocyt eson 07-26-2021 Monocytes/100 WBC (Bld) 7.7 % 0-10 [facility] Work Phone: Blood platelet mean volumeon 07-26-2021 Platelet mean volume (Bld) [Entitic vol] 12.3 fL 6.2-12.0 [facility] Work Phone: Determination of erythrocyte mean corpuscular volume (MCV)on 07-26-2021 MCV (RBC) [Entitic vol] 94.0 fL 81-99 [facility] Work Phone: Hematocrit Auto (Bld) [Volum e fraction]on 07-26-2021 Hematocrit (Bld) [Volume fraction] 47.3 % 37-47 [facility] Work Phone: Laboratory - Hematology and Cell countson 07-26-2021 Erythrocyte distribution width (RBC) [Entitic vol] 48.4 fL 35.1-43.9 [facility] Work Phone: Erythrocyte distribution width (RBC) [Ratio] 14.0 % 11.6-14.6 [facility] Work Phone: Immature granulocytes/100 WBC (Bld) 0.200 % 0.0-0.9 [facility] Work Phone: [phone] Comment on above: IG% - Immature Granu locytes (promyelocytes, myelocytes and metamyelocytes) > 1% indicates that a LEFT SHIFT is Present. MCH (RBC) [Entitic mass] 32.0 pg 27.0-32.0 [facility] Work Phone: Nucleated RBC/100 WBC (Bld) [Ratio] 0 % 0-5 [facility] Work Phone: MCHC Auto (RBC) [Mass/Vol]on 07-26-2021 MCHC (RBC) [Mass/Vol] 34.0 g/dL 32-36 [facility] Work Phone: Platelets bldon 07-26-2021 Platelets (Bld) [#/Vol] 235 10*3/uL 150-450 [facility] Work Phone: Absolute lymphocyte counton 06-06-2021 Lymphocytes Auto (Unsp spec) [#/Vol] 0.76 10*3/uL 0.83-4.51 [facility] Work Phone: [phone] Basophil percentageon 2021 Basophils/100 WBC (Bld) 0.2 % 0-1 [facility] Work Phone: Bilirubin [Mass/Vol] 0.40 mg/dL 0.20-1.00 [facility] Work Phone: Comment on above: For patients on eltr ombopag therapy, use of Dimension [place] TBIL is not recommended. Chloride [Moles/Vol] 106 mmol/L 98-107 [facility] Work Phone: Eosinophils/100 WBC (Bld) 0.0 % 0-5 [facility] Work Phone: Glucose [Mass/Vol] 107 mg/dL 74-106 [facility] Work Phone: Comment on above: Fasting Glucose resu lt from 100 to 125 mg/dL suggests IMPAIRED HOMEOSTASIS per A.D.A. criteria. Neutrophils (Bld) [#/Vol] 5.3 10*3/uL 2.0-7.7 [facility] Work Phone: Neutrophils/100 WBC (Bld) 85.0 % 47-70 [facility] Work Phone: Potassium [Moles/Vol] 4.2 mmol/L 3.5-5.1 [facility] Work Phone: Protein [Mass/Vol] 7.6 g/dL 6.4-8.2 [facility] Work Phone: Sodium [Moles/Vol] 140 mmol/L 136-145 [facility] Work Phone: WBC (Bld) [#/Vol] 6.2 10*3/uL 4.4-11.0 [facility] Work Phone: Blood erythrocytes count (nu mber/volume)on 06-06-2021 RBC (Bld) [#/Vol] 4.51 10*6/uL 4.2-5.4 [facility] Work Phone: Blood hemoglobin measurement (mass/volume)on 06-06-2021 Hemoglobin (Bld) [Mass/Vol] 14.0 g/dL 12.0-15.0 [facility] Work Phone: Blood lymphocytes/100 leukoc yteson 06-06-2021 Lymphocytes/100 WBC (Bld) 12.2 % 19-41 [facility] Work Phone: Blood monocytes/100 leukocyt eson 06-06-2021 Monocytes/100 WBC (Bld) 2.4 % 0-10 [facility] Work Phone: Blood platelet mean volumeon 06-06-2021 Platelet mean volume (Bld) [Entitic vol] 11.5 fL 6.2-12.0 [facility] Work Phone: [phone] Determination of erythrocyte mean corpuscular volume (MCV)on 06-06-2021 MCV (RBC) [Entitic vol] 93.6 fL 81-99 [facility] Work Phone: Hematocrit Auto (Bld) [Volum e fraction]on 06-06-2021 Hematocrit (Bld) [Volume fraction] 42.2 % 37-47 [facility] Work Phone: [phone] Laboratory - Chemistry and C hemistry - challengeon 06-06-2021 ALP [Catalytic activity/Vol] 123 U/L 45-117 [facility] Work Phone: ALT [Catalytic activity/Vol] 21 U/L 13-56 [facility] Work Phone: CO2 [Moles/Vol] 29.0 mmol/L 21.0-32.0 [facility] Work Phone: [phone] Globulin (S) [Mass/Vol] 3.9 g/dL 2.2-4.2 [facility] Work Phone: [phone] Urea nitrogen/Creatinine [Mass ratio] 18.4 mg/mg 10-20 [facility] Work Phone: Laboratory - Hematology and Cell countson 06-06-2021 Erythrocyte distribution width (RBC) [Entitic vol] 49.0 fL 35.1-43.9 [facility] Work Phone: Erythrocyte distribution width (RBC) [Ratio] 14.3 % 11.6-14.6 [facility] Work Phone: [phone] Immature granulocytes/100 WBC (Bld) 0.200 % 0.0-0.9 [facility] Work Phone: [phone] Comment on above: IG% - Immature Granu locytes (promyelocytes, myelocytes and metamyelocytes) > 1% indicates that a LEFT SHIFT is Present. MCH (RBC) [Entitic mass] 31.0 pg 27.0-32.0 [facility] Work Phone: Nucleated RBC/100 WBC (Bld) [Ratio] 0 % 0-5 [facility] Work Phone: [phone] MCHC Auto (RBC) [Mass/Vol]on 06-06-2021 MCHC (RBC) [Mass/Vol] 33.2 g/dL 32-36 [facility] Work Phone: No Panel Informationon 06-06 Estimated GFR (MDRD) Amer 166 mL/min >60 [facility] Work Phone: Comment on above: GFR Calc Estimated GFR (MDRD) Non-Af Amer 137 mL/min >60 [facility] Work Phone: Comment on above: Non- GFR Calc Thyroid Stimulating Hormone (TSH) 0.68 uIU/mL 0.358-3.74 [facility] Work Phone: Vitamin D 25-Hydroxy 47.8 ng/mL [facility] Work Phone: Comment on above: Vitamin D 25(OH) Sta tus Range Deficiency <20 ng/mL (50nmol/L) Insufficiency 20 - 30 ng/mL (50 - 75 nmol/L) Sufficiency 30 - 100 ng/mL (75 - 250 nmol/L) Toxicity >100 ng/mL (>250 nmol/L) Platelets bldon 06-06-2021 Platelets (Bld) [#/Vol] 326 10*3/uL 150-450 [facility] Work Phone: Serum or plasma albumin kamilah urement (mass/volume)on 06-06-2021 Albumin [Mass/Vol] 3.7 g/dL 3.2-5.0 [facility] Work Phone: Serum or plasma albumin/glob ulin mass ratioon 06-06-2021 Albumin/Globulin [Mass ratio] 0.9 {ratio} 0.9-2.4 [facility] Work Phone: Serum or plasma calcium kamilah urement (mass/volume)on 06-06-2021 Calcium [Mass/Vol] 9.1 mg/dL 8.5-10.1 [facility] Work Phone: Serum or plasma creatinine m easurement (mass/volume)on 06-06-2021 Creatinine [Mass/Vol] 0.49 mg/dL 0.55-1.02 [facility] Work Phone: Comment on above: The validity of the calculated GFR & GFRAA in patients over 70 years has not been determined. Clinical correlation is essential. Serum or plasma urea nitroge n measurement (mass/volume)on 06-06-2021 Urea nitrogen [Mass/Vol] 9 mg/dL 7-18 [facility] Work Phone: Thin prep Papanicolaou smear with manual screeningon 06-06-2021 Thin prep Papanicolaou smear with manual screening 19 U/L 15-37 [facility] Work Phone: Thin prep Papanicolaou smear with manual screening 5 5-15 [facility] Work Phone: CNTHERAPYon 01-12-2018 CNTHERAPY OT/PT/Speech Visit (SPEMDR) TONYA CUELLO ([id number]) 1960 Tanya Romero Time Provider Cwanqhswcx66/5/18 10:30 AM SPEECH [facility] SPEMDREncounter Number: [id number] Time Provider Department [id number]/12/2018 10:30 AM [id number] [facility] H*SPEMDR [facility]: Speech Instrumental Swallow Eval [3660] [...] 1.4 % MUCOSAL AEROSOL * Use 1 Jackson as instructed as * Patient not taking: Reported on 12/20/2017 * DESITIN 40 % TOPICAL OINTMENT Apply to buttocks twice daily * COMPOUNDED PRESCRIPTION Light talker Bruce Cervantes P* * WHEELCHAIR CUSHION MISC Use daily for prevention of d* * MILK OF MAGNESIA 400 MG/5 ML * as neededProgress Notes:Elizabeth Iniguez CCC-OCCASIONAL CAREGIVER 01/12/2018 4:34 PM SignedEpisode Visit Count: Visit count could not be calculated. Make sure you areusing a visit which is associated with an episode.Start of Care Date: 01/12/18Onset Date: 12/08/17Patient Identified by Name and Date of : [facility] REHABILITATION AND SPORTS THERAPYMODIFIED BARIUM SWALLOWPLAN [...] degrees for all PO;-Small Bite/Sip;-Supervision/A ssistance for meals.OCCASIONAL CAREGIVER Recommendations:-Diet-S wallowing Precautions- continue Speech Therapy recommendations within detention Goals for Modified Barium Swallow: created for [...] Level: Required Assistance (aregivers assist/ [place] )Assistance Required With: Swallowing Precautions;Other: See Comment (- all ADLtasks)Assistance Available: 24 Hour (- lives in detention )OBJECTIVE: MEASURES WITH LEVEL OF FUNCTION:Instrumental Swallow Assessment Type: Modified Barium Swallow StudyModified Barium Swallow Views: Lateral positionMBS Consistencies Tested: Thin Barium Liquids;Pudding Thick BariumLiquids;Willis Thick Barium Liquids;Soft Solid With Barium Paste;Puree WithBarium Paste;Solid With Barium PasteOral Phase:Lip Closure: Profuse escape through open lips (- anterior protrusion of tonguebeyond lips )Profuse Escape Through Open Lips With: Thin Liquids;Willis ThickenedLiquids;Puree; Soft Solid;SolidTongue Control During Bolus Hold: [...] n DemonstrationTREATMENT: Performed Modified Barium Swallowing Study (77964).Evaluation: Modified Barium Swallow Evaluation (30692)Swallow / Dysphagia (31164): Skilled Intervention: -Provided video review;writtenAND verbal education [...] understanding ofeducation provided this date.Billing:Modified Barium Swallow (56345) and Dysphagia Treatment (47846)Total time: 30 minutesElizabeth Iniguez CCC-OCCASIONAL CAREGIVER Idania Hendricks [facility] PROGRESSon 01-12-2018 Protein mass conc HNO ID: [id number]: Elizabeth (Cigar Wrapper Tender Automatic) FuerstService: (none)Author Type: Speech Language PathologistType: Progress [...] degrees for all PO;-Small Bite/Sip;-Supervision/A ssistance for meals.OCCASIONAL CAREGIVER Recommendations:-Diet-S wallowing Precautions- continue Speech Therapy recommendations within detention Goals for Modified Barium Swallow: created for [...] aspiration; texture tolerance levels . Patient residesin detention with Caregivers assisting with all ADL tasks. Caregiverreports no previous PNA or recent change in medical status. Caregivernote Pt coughs sometimes, but that is nothing newPatient Goals: eat/drink without restrictionsPrior Functional Level: Required Assistance (aregivers assist/ lives ingroup home )Assistance Required With: Swallowing Precautions;Other: See Comment (- allADL tasks)Assistance Available: 24 Hour (- lives in detention )OBJECTIVE: MEASURES WITH LEVEL OF FUNCTION:Instrumental Swallow Assessment Type: Modified Barium Swallow StudyModified Barium Swallow Views: Lateral positionMBS Consistencies Tested: Thin Barium Liquids;Pudding Thick BariumLiquids;Willis Thick Barium Liquids;Soft Solid With Barium Paste;PureeWith Barium Paste;Solid With Barium PasteOral Phase:Lip Closure: Profuse escape through open lips (- anterior protrusion oftongue beyond lips )Profuse Escape Through Open Lips With: Thin Liquids;Willis ThickenedLiquids;Puree; Soft Solid;SolidTongue Control During Bolus Hold: [...] n DemonstrationTREATMENT: Performed Modified Barium Swallowing Study (06087).Evaluation: Modified Barium Swallow Evaluation (39303)Swallow / Dysphagia (48873): Skilled Intervention: -Provided videoreview; writtenAND verbal education [...] understanding ofeducation provided this date.Billing:Modified Barium Swallow (88100) and Dysphagia Treatment (80432)Total time: 30 minutesElizabeth Iniguez CCC-OCCASIONAL CAREGIVER [facility] XR MOD BARIUM SWALLOW W CHAPIS Kizzy [...] Kerma: 18.0 mGyDose Area Product (DAP): 3450.0 mGy*uaS7Tkvrmu time: 3:23 min:secRESULT: See speech pathology notes.IMPRESSION: See speech pathology notes.Rn Clinical Research: ALEXIS Transcribe Date/Time: Jan 12 2018 11:31ADictated by : LISY ALONSO MDThis examination was interpreted and the report reviewed and electronically signed by: LISY ALONSO MD on Jan 12 2018 1:06PM [id number] [facility] Anion gap 8 mmol/L Normal 5-16 [facility] Comment on above: Order Comment: Campu s: M Performed By: #### L 500.32887, L500.94079 ####[facility] [id number] [place], [place] [address]Jg# [phone] BUN/Creatinine Ratio 14 mg/mg Low 15-24 [facility] Comment on above: Order Comment: Campu s: M Performed By: #### L 500.22511, L500.34275 ####[facility] [id number] [place], [place] [address]Sw# [phone] Calcium 8.9 mg/dL Normal 8.5-10.1 [facility] Comment on above: Order Comment: Campu s: M Performed By: #### L 500.89961, L500.62324 ####[facility] [id number] [place], [place] [address]Pc# [phone] Chloride 103 mmol/L Normal 98-107 [facility] Comment on above: Order Comment: Campu s: M Performed By: #### L 500.59644, L500.92322 ####[facility] [id number] [place], [place] [address]Bn# [phone] CO2 30 mmol/L Normal 21-32 [facility] Comment on above: Order Comment: Campu s: M Performed By: #### L 500.24499, L500.10462 ####[facility] [id number] [place], [place] [address]Jz# [phone] Creatinine 0.487 mg/dL Low 0.510-0.950 [facility] Comment on above: Order Comment: Campu s: M Result Comment: Ariana ents receiving either N-Acetylcysteine (NAC) orMetamizole prior to venipuncture, may have falsely depressedresults. Performed By: #### L 500.34995, L500.74546 ####[facility] [id number] [place], [place] [address]Cm# [phone] Glucose mass conc 84 mg/dL Normal 70-100 [facility] Comment on above: Order Comment: Campu s: M Result Comment: 70-1 00-Normal Fasting; [id number] Fasting; greaterthan 126 on more than one result-Diabetes. ADA guidelines Performed By: #### L 500.06278, L500.25990 ####[facility] [id number] [place], [place] [address]Iz# [phone] Potassium molar conc 4.4 mmol/L Normal 3.5-5.1 [facility] Comment on above: Order Comment: Campu s: M Performed By: #### L 500.59573, L500.08408 ####[facility] [id number] [place] [address]Ya# [phone] Sodium 140 mmol/L Normal 136-145 [facility] Comment on above: Order Comment: Campu s: M Performed By: #### L 500.95428, L500.46774 ####[facility] [id number] [place] [address]Rd# [phone] Urea nitrogen 7 mg/dL Normal 7-26 [facility] Comment on above: Order Comment: Campu s: M Performed By: #### L 500.77147, L500.89598 ####[facility] [id number] [place] [address]Rl# [phone] GFR ESTon 11-07-2016 IF AMER Greater than 60 Normal [facility] Comment on above: Order Comment: Campu s: M Performed By: #### L 500.95500, L500.74795 ####[facility] [id number] [place], [place] [address]Vg# [phone] IF non-AFR AMER Greater than 60 Normal [facility] Comment on above: Order Comment: Campu s: M Performed By: #### L 500.44182, L500.81859 ####[facility] [id number] [place], [place] [address]Md# [phone] ORon 11-07-2016 OPERATIVE REPORT This is a preliminar y report only, as the practitioner review and authentication has not occurred. Normal [facility] OR DATE OF SERVICE: 11/07/2016PREOPERATIVE DIAGNOSES:1. Periodontitis.2. Failing amalgam restorations.POSTOPERAT CHRIS DIAGNOSES:1. Periodontitis.2. Failing amalgam restorations.OPERATION: 1. Thorough cleansing of oral cavity with chlorhexidine rinse.2. Full mouth dental and periodontal charting.3. Four-bite wing dental radiographs.4. Prophy.5. Amalgam restorations on 2, 3, 14, and 29.SURGEON: Yang Abrams DMD.COOLER CONVEYOR LOADER: [facility] OR staff.ANESTHESIA: General anesthesia via nasotracheal intubation.PREOPERATIVE [...] tothe postanesthesia care unit in satisfactory condition. [facility] PATIENT NAME: TONYA FLETCHERbrian Guzmán MEDICAL REC #: [id number], [place] [address] DATE:DISCHARGE DATE:OPERATIVE REPORT ATTENDING PHY: Yang Abrams [...] am [place] [facility], but itwould be an [...] patient and itis not a necessity. JM Feldman/[id number]: 11/07/2016 09:18DT: 11/07/2016 09:39SSI File#: [id number] #: [id number] [facility] PATIENT NAME: TONYA FLETCHER Jazzy Guzmán MEDICAL REC #: [id number] [address] DATE:DISCHARGE DATE:OPERATIVE REPORT ATTENDING PHY: Yang Abrams DMD [facility] No Panel Information Influenza Types A,B Direct FA (DENY) [facility] Work Phone: RSV Ag Immune stain Ql (Tiss ) Rapid RSV (DFA) RSV Antigen [facility] Work Phone: Vital Signs Date Time Vital Sign Value Performing Clinician Faci alecy 08-26-2024 18:25-0400 Body temperature 96.8 [degF] Haja Coley MD Work Phone: [facility] 08-26-2024 18:25-0400 Diastolic blood pressure 78 mm[Hg] Haja Coley MD Work Phone: [facility] 08-26-2024 18:25-0400 Heart rate 82 /min Haja Coley MD Work Phone: [facility] 08-26-2024 18:25-0400 Respiratory rate 21 /min Haja Coley MD Work Phone: [facility] 08-26-2024 18:25-0400 SaO2% (BldA) [Mass fraction] 94 % Haja Coley MD Work Phone: [facility] 08-26-2024 18:25-0400 Systolic blood pressure 130 mm[Hg] Haja Coley MD Work Phone: [facility] 08-10-2024 14:49-0400 Diastolic blood pressure 80 mm[Hg] Dr. Michelle Marroquin MD Work Phone: [facility] 08-10-2024 14:49-0400 Heart rate 74 /min Dr. Michelle Marroquin MD Work Phone: [facility] 08-10-2024 14:49-0400 SaO2% (BldA) [Mass fraction] 93 % Dr. Michelle Marroquin MD Work Phone: [facility] 08-10-2024 14:49-0400 Systolic blood pressure 120 mm[Hg] Dr. Michelle Marroquin MD Work Phone: [facility] 08-10-2024 14:47-0400 Body height 152.[address] Michelle Marroquin MD Work Phone: [facility] 06-11-2024 13:09-0400 Body temperature 98.2 [degF] Dr. Michelle Marroquin MD Work Phone: [facility] 06-11-2024 13:09-0400 Diastolic blood pressure 56 mm[Hg] Dr. Michelle Marroquin MD Work Phone: [facility] 06-11-2024 13:09-0400 Heart rate 82 /min Dr. Michelle Marroquin MD Work Phone: [facility] 06-11-2024 13:09-0400 Respiratory rate 18 /min Dr. Michelle Marroquin MD Work Phone: [facility] 06-11-2024 13:09-0400 SaO2% (BldA) [Mass fraction] 96 % Dr. Michelle Marroquin MD Work Phone: [facility] 06-11-2024 13:09-0400 Systolic blood pressure 108 mm[Hg] Dr. Michelle Marroquin MD Work Phone: [facility] 05-18-2024 17:06-0400 Body temperature 98.2 [degF] Dr. iMchelle Marroquin MD Work Phone: [facility] 05-18-2024 17:06-0400 Diastolic blood pressure 70 mm[Hg] Dr. Michelle Marroquin MD Work Phone: [facility] 05-18-2024 17:06-0400 Heart rate 76 /min Dr. Michelle Marroquin MD Work Phone: [facility] 05-18-2024 17:06-0400 Respiratory rate 14 /min Dr. Michelle Marroquin MD Work Phone: [facility] 05-18-2024 17:06-0400 Systolic blood pressure 110 mm[Hg] Dr. Michelle Marroquin MD Work Phone: [facility] 04-21-2024 13:58-0500 Body height 152.[address] Michelle Marroquin MD Work Phone: [facility] 04-21-2024 13:58-0500 Body temperature 98.4 [degF] Dr. Michelle Marroquin MD Work Phone: [facility] 04-21-2024 13:58-0500 Diastolic blood pressure 64 mm[Hg] Dr. Michelle Marroquin MD Work Phone: [facility] 04-21-2024 13:58-0500 Heart rate 92 /min Dr. Michelle Marroquin MD Work Phone: [facility] 04-21-2024 13:58-0500 Respiratory rate 18 /min Dr. Michelle Marroquin MD Work Phone: [facility] 04-21-2024 13:58-0500 SaO2% (BldA) [Mass fraction] 95 % Dr. Michelle Marroquin MD Work Phone: [facility] 04-21-2024 13:58-0500 Systolic blood pressure 110 mm[Hg] Dr. Michelle Marroquin MD Work Phone: [facility] 04-09-2024 20:32-0500 Body temperature 97.6 [degF] Dr. Michelle Marroquin MD Work Phone: [facility] 04-09-2024 20:32-0500 Heart rate 89 /min Dr. Michelle Marroquin MD Work Phone: [facility] 04-09-2024 20:32-0500 Respiratory rate 16 /min Dr. Michelle Marroquin MD Work Phone: [facility] 04-09-2024 20:32-0500 SaO2% (BldA) [Mass fraction] 95 % Dr. Michelle Marroquin MD Work Phone: [facility] 07-21-2023 09:34-0400 Body temperature 98.1 [degF] [facility] 07-21-2023 09:34-0400 Diastolic blood pressure 79 mm[Hg] [facility] 07-21-2023 09:34-0400 Heart rate 86 /min [facility] 07-21-2023 09:34-0400 Respiratory rate 17 /min [facility] 07-21-2023 09:34-0400 SaO2% (BldA) [Mass fraction] 95 % [facility] 07-21-2023 09:34-0400 Systolic blood pressure 132 mm[Hg] [facility] 07-21-2023 08:18-0400 Body height 152.4 cm [facility] 06-13-2023 08:36-0400 Body temperature 97.9 [degF] [facility] 06-13-2023 08:36-0400 Diastolic blood pressure 82 mm[Hg] [facility] 06-13-2023 08:36-0400 Heart rate 97 /min [facility] 06-13-2023 08:36-0400 Respiratory rate 16 /min [facility] 06-13-2023 08:36-0400 SaO2% (BldA) [Mass fraction] 98 % [facility] 06-13-2023 08:36-0400 Systolic blood pressure 129 mm[Hg] [facility] 06-13-2023 05:51-0400 Body height 152.4 cm [facility] 06-13-2023 05:51-0400 Body mass index (BMI) [Ratio] 28.8 kg/m2 [facility] 06-13-2023 05:51-0400 Body weight 67.1 kg [facility] 08-15-2022 18:20-0400 Diastolic blood pressure 74 mm[Hg] [facility] 08-15-2022 18:20-0400 Heart rate 102 /min [facility] 08-15-2022 18:20-0400 Respiratory rate 20 /min [facility] 08-15-2022 18:20-0400 SaO2% (BldA) [Mass fraction] 95 % [facility] 08-15-2022 18:20-0400 Systolic blood pressure 121 mm[Hg] [facility] 08-15-2022 16:38-0400 Body mass index (BMI) [Ratio] 24.7 kg/m2 [facility] 08-15-2022 16:38-0400 Body weight 57.3 kg [facility] 08-15-2022 16:21-0400 Body height 152.4 cm [facility] 08-15-2022 16:21-0400 Body temperature 97.2 [degF] [facility] 03-21-2022 18:59-0500 Diastolic blood pressure 70 mm[Hg] Dr. Rocky Barlow Work Phone: [facility] 03-21-2022 18:59-0500 Heart rate 97 /min Dr. Rocky Barlow Work Phone: [facility] 03-21-2022 18:59-0500 Respiratory rate 18 /min Dr. Rocky Barlow Work Phone: [facility] 03-21-2022 18:59-0500 SaO2% (BldA) [Mass fraction] 98 % Dr. Rocky Barlow Work Phone: [facility] 03-21-2022 18:59-0500 Systolic blood pressure 130 mm[Hg] Dr. Rocky Barlow Work Phone: [facility] 03-21-2022 17:46-0500 Body temperature 98.3 [degF] Dr. Rocky Barlow Work Phone: [facility] 03-21-2022 17:42-0500 Body height 154.[address] Rocky Barlow Work Phone: [facility] 03-21-2022 17:42-0500 Body mass index (BMI) [Ratio] 24.5 kg/m2 Dr. Rocky Barlow Work Phone: [facility] 03-21-2022 17:42-0500 Body weight [address] Rocky Barlow Work Phone: [facility] 01-21-2022 14:13-0500 Body temperature 98.8 [degF] Dr. Rocky Barlow Work Phone: [facility] 01-21-2022 14:13-0500 Diastolic blood pressure 76 mm[Hg] Dr. Rocky Barlow Work Phone: 9(908)171-946962 [place] [address] 01-21-2022 14:13-0500 Heart rate 86 /min Dr. Rocky Barlow Work Phone: 6(650)232-934762 [place] [address] 01-21-2022 14:13-0500 Respiratory rate 14 /min Dr. Rocky Barlow Work Phone: 6(629)087-540062 [place] [address] 01-21-2022 14:13-0500 SaO2% (BldA) [Mass fraction] 98 % Dr. Rocky Barlow Work Phone: 7(519)935-866062 [place] [address] 01-21-2022 14:13-0500 Systolic blood pressure 128 mm[Hg] Dr. Rocky Barlow Work Phone: 4(882)435-304862 [place] [address] 01-03-2022 17:18-0400 Body temperature 98.2 [degF] Dr. Rocky Barlow Work Phone: 7(496)[phone] [place] [address] 01-03-2022 17:18-0400 Diastolic blood pressure 92 mm[Hg] Dr. Rocky Barlow Work Phone: 3(181)[phone] [place] [address] 01-03-2022 17:18-0400 Heart rate 94 /min Dr. Rocky Barlow Work Phone: [facility] 01-03-2022 17:18-0400 Respiratory rate 20 /min Dr. Rocky Barlow Work Phone: 0(920)[phone] [place] [address] 01-03-2022 17:18-0400 SaO2% (BldA) [Mass fraction] 95 % Dr. Rocky Barlow Work Phone: [facility] 01-03-2022 17:18-0400 Systolic blood pressure 118 mm[Hg] Dr. Rocky Barlow Work Phone: 0(416)[phone] [place] [address] 01-03-2022 14:19-0400 Inhaled oxygen flow rate 2 L/min Dr. Rocky Barlow Work Phone: [facility] 01-02-2022 21:40-0400 Body height 152.[address] Rocky Barlow Work Phone: [facility] Work Phone: 01-02-2022 21:40-0400 Body mass index (BMI) [Ratio] 23.2 kg/m2 Dr. Rocky Barlow Work Phone: [facility] 01-02-2022 21:40-0400 Body weight [address] Rocky Barlow Work Phone: [facility] 10-26-2021 07:33-0400 Body temperature 97.2 [degF] Lennox Chamberlain SEARCHLIGHT OPERATOR.SALES WAREHOUSE DRIVER Work Phone: [facility] 10-26-2021 07:33-0400 Diastolic blood pressure 80 mm[Hg] Lennox Chamberlain SEARCHLIGHT OPERATOR.SALES WAREHOUSE DRIVER Work Phone: [facility] 10-26-2021 07:33-0400 Heart rate 72 /min Lennox Bulmaro SEARCHLIGHT OPERATOR.SALES WAREHOUSE DRIVER Work Phone: [facility] 10-26-2021 07:33-0400 Respiratory rate 16 /min Lennox Chamberlain SEARCHLIGHT OPERATOR.SALES WAREHOUSE DRIVER Work Phone: [facility] 10-26-2021 07:33-0400 SaO2% (BldA) [Mass fraction] 98 % Lennox Chamberlain SEARCHLIGHT OPERATOR.SALES WAREHOUSE DRIVER Work Phone: [facility] 10-26-2021 07:33-0400 Systolic blood pressure 126 mm[Hg] Lennox Chamberlain SEARCHLIGHT OPERATOR.SALES WAREHOUSE DRIVER Work Phone: [facility] Encounters Encounter Date Encounter Type Care Provider Facility Start: 09-05-2024 Emergency department patient visit [facility] Facility:[facility] Start: 08-26-2024 End: 08-26-2024 Office outpatient visit 15 minutes Haja Coley MD Work Phone: [facility] Comment on above: Nausea and vomiting, unspecified vomiting type (Primary Dx) Start: 08-26-2024 End: 08-26-2024 [facility] Start: 08-10-2024 End: 08-10-2024 Patient encounter procedure Christ GOVEA [facility] Work Phone: Start: 08-10-2024 End: 08-10-[address] Michelle Marroquin MD Work Phone: [facility] Work Phone: Start: 06-11-2024 End: 06-11-[address] Michelle Marroquin MD -[facility] Work Phone: Start: 06-11-2024 End: 06-11-[address] Michelle Marroquin MD [facility] Start: 06-11-2024 End: 06-11-[address] Michelle Marroquin MD Work Phone: [facility] Work Phone: Start: 06-11-2024 End: 06-11-2024 ambulatory [facility] Facility:[facility] Start: 05-18-2024 End: 05-18-2024 Patient encounter procedure Christ Aguirre [facility] Work Phone: Start: 05-18-2024 End: 05-18-2024 ambulatory Christ GOVEA Facility:[facility] Start: 04-21-2024 End: 04-21-[address] Michelle Marroquin MD -[facility] Work Phone: Start: 04-21-2024 End: 04-21-20[facility] Start: 04-21-2024 End: 04-21-2024 ambulatory [facility] Facility:[facility] Start: 04-09-2024 End: 04-09-2024 Emergency department patient visit Dr. Gregory Coleman MD -Emergency Department Work Phone: Start: 12-21-2023 End: 12-21-2023 [facility] Start: 12-12-2023 End: 12-12-2023 ambulatory John GOVEA Facility:[facility] Start: 10-08-2023 End: 10-08-2023 ambulatory Panfilo Lizamaori Facility:[facility] Start: 10-08-2023 End: 10-08-2023 ambulatory John GOVEA Facility:[facility] Start: 09-23-2023 End: 09-23-2023 Emergency department patient visit [facility] Facility:[facility] Start: 07-31-[address] Michelle Marroquin MD Work Phone: [facility] Start: 07-21-2023 End: 07-21-2023 Emergency department patient visit [facility]-Emergency Department Work Phone: Start: 06-19-2023 End: 06-19-2023 ambulatory [facility] Work Phone: Start: 06-19-2023 End: 06-19-2023 Patient encounter procedure [facility]-Laboratory, Phy Office 3rd Flr Start: 06-13-2023 End: 06-13-2023 Emergency department patient visit [facility]-Emergency Department Work Phone: Start: 02-05-2023 End: 02-05-2023 ambulatory [facility] Work Phone: Start: 02-05-2023 End: 02-05-2023 Patient encounter procedure [facility]-Pulmonary Services/Neurology Work Phone: Start: 01-01-2023 End: 01-01-2023 ambulatory [facility] Work Phone: Start: 01-01-2023 End: 01-01-2023 Patient encounter procedure [facility]-Radiology, [facility] Work Phone: Start: 12-12-2022 End: 12-12-2022 Patient encounter procedure [facility]-Pulmonary Services/Neurology Work Phone: Start: 12-11-2022 End: 12-11-2022 [facility] Start: 12-03-2022 End: 12-03-2022 ambulatory [facility] Work Phone: Start: 12-03-2022 End: 12-03-2022 Patient encounter procedure [facility]-Laboratory, Phy Office 3rd Flr Start: 08-15-2022 End: 08-15-2022 [facility] Start: 05-30-2022 End: 05-30-2022 ambulatory [facility] Work Phone: Start: 05-30-2022 End: 05-30-2022 [facility] Start: 03-29-2022 End: 03-29-[address] Rocky Barlow Work Phone: [facility] Work Phone: Start: 03-29-2022 End: 03-29-[address] Rocyk Barlow Work Phone: [facility]-Pulmonary Services/Neurology Start: 03-21-2022 End: 03-21-2022 Emergency department patient visit Dr. Rocky Barlow Work Phone: [facility]-Emergency Department Start: 01-21-2022 End: 01-21-[address] Rocky Barlow Work Phone: [facility] Start: 01-03-2022 Non-patient / Non-visit Dr. Jong Barlow Work Phone: [facility] Start: 01-02-2022 Non-patient / Non-visit Dr. Jong Barlow Work Phone: [facility] Start: 01-02-2022 End: 01-03-2022 Evaluation and management of inpatient Dr. Rocky Barlow Work Phone: [facility]-Medical Surgical 3 Start: 01-02-2022 End: 01-03-[address] Rocky Barlow Work Phone: [facility] Work Phone: Start: 12-31-2021 End: 12-31-[address] Rocky Barlow Work Phone: [facility] Work Phone: Start: 12-31-2021 End: 12-31-[address] Rocky Barlow Work Phone: [facility]-Radiology, [facility] Start: 11-30-2021 End: 11-30-2021 ambulatory [facility] Work Phone: Start: 11-30-2021 End: 11-30-2021 Patient encounter procedure [facility]-Pulmonary Services/Neurology Start: 11-28-2021 End: 11-28-2021 ambulatory [facility] Work Phone: Start: 11-28-2021 End: 11-28-2021 Patient encounter procedure [facility]-Laboratory, Phy Office 3rd Flr Start: 10-27-2021 Telephone encounter Melba Campoverde APRN.SALES WAREHOUSE DRIVER Work Phone: [facility] Comment on above: Results, Lab; Result s Results Start: 10-26-2021 End: 10-26-2021 Patient encounter procedure Kathya Eric APRN.CNM Work Phone: OB/Gynecology Comment on above: Vaginal itching (Simona ahsan Dx); Vaginal burning; Vaginal odor; Vaginal discharge Start: 10-26-2021 End: 10-26-2021 Patient encounter procedure Lennox Chamberlain APRN.SALES WAREHOUSE DRIVER Work Phone: [facility] Comment on above: Burning with urinati on (Primary Dx); Wheeze; Chronic cough Start: 07-27-2021 End: 07-27-2021 Patient encounter procedure [facility]-Laboratory, Specimen Start: 07-26-2021 End: 07-26-2021 Patient encounter procedure [facility]-Laboratory, Phy Office 3rd Flr Start: 07-09-2021 End: 07-09-2021 Patient encounter procedure [facility]-Radiology, [facility] Start: 06-06-2021 End: 06-06-2021 Patient encounter procedure [facility]-Laboratory Start: 05-30-2021 End: 05-30-2021 Patient encounter procedure [facility]-Radiology, [facility] Start: 04-25-2021 End: 04-25-2021 Patient encounter procedure [facility] Start: 01-12-2018 End: 01-12-2018 Patient encounter procedure [facility] Start: 12-09-2017 Patient encounter procedure [facility] Start: 11-07-2016 Evaluation and management of inpatient Yang Abrams Facility:[facility] Start: 10-29-2016 Ambulatory Yang Abrams Facility: [facility] Procedures Date Procedure Procedure Detail Performing Clinician [...] trichomonas vaginalis amplified probe tech Kathya Eric APRN.CNHuma Work Phone: Start: 10-26-2021 Urnls dip stick/tabl et rgnt auto w/o microscopy Lennox Chamberlain APRN.SALES WAREHOUSE DRIVER Work Phone: Start: 07-27-2021 Urine culture Start: 07-09-2021 X-ray of both feet Start: 05-30-2021 X-ray of both feet Start: 04-25-2021 X-ray of chest posteroanterior view Start: 03-17-2019 H/O: surgery S/P deep brain stimulator placement Lennox Chamberlain APRN.SALES WAREHOUSE DRIVER Work Phone: Start: 10-28-2012 Lipid 1996 panel - S radha or Plasma Haja Coley MD Work Phone: Start: 09-03-2012 Mammography Lennox K ing SEARCHLIGHT OPERATOR.SALES WAREHOUSE DRIVER Work Phone: Influenza Types A,B Direct FA [...] for malign ant neoplasm of colon [facility] Start: 04-09-2024 [facility] Start: 03-10-2024 Medicare Advantage A nnual Wellness Visit Medicare Advantage Annual Wellness Visit [facility] Start: 11-09-2023 Covid-19 Vaccine ( season) Covid-19 Vaccine ( season) [facility] Start: 07-21-2023 [facility] Start: 06-13-2023 [facility] Start: 01-03-2022 Patient discharge [facility] Start: 01-02-2022 Following clinical pathway protocol [facility] Start: 01-02-2022 Assessment of risk o f venous thromboembolism [facility] Start: 01-02-2022 Inhalation therapy procedure [facility] Start: 01-02-2022 Insertion of cathete r into peripheral vein [facility] Start: 01-02-2022 Oxygen therapy [facility] Start: 01-02-2022 Providing care accor ding to standard [facility] Start: 01-02-2022 Provision of activit y privileges [facility] Start: 01-02-2022 Referral to occupati onal therapist [facility] Start: 01-02-2022 Referral to service [facility] Start: 01-02-2022 Respiratory secretio n precautions [facility] Start: 01-02-2022 [facility] Start: 01-02-2022 Admission procedure [facility] Start: 11-08-2021 Influenza vaccination INFLUENZA (#1) [facility] Start: 03-12-2021 COVID-19 VACCINE (2 - Moderna series) COVID-19 VACCINE (2 - Moderna series) [facility] Start: 09-13-2019 PAP TESTING PAP TESTING [facility] Start: 10-28-2017 Lipid panel Lipid Screening [facility] Start: 10-28-2017 LIPID SCREEN LIPID SCREEN [facility] Start: 09-12-2017 Screening for malign ant neoplasm of cervix Cervical Cancer Screening [facility] Start: 09-03-2013 Mammography MAMMOGRAM [facility] Start: 09-03-2013 Screening for malign ant neoplasm of breast Mammogram Screening [facility] Start: 01-23-2013 DIABETES SCREEN DIABETES SCREEN [facility] Start: 01-23-2013 Diabetes Screening Diabetes Screenin g [facility] Start: 07-05-2011 Pneumococcal Vaccine : 50+ (1 of 1 - PCV) Pneumococcal Vaccine: 50+ (1 of 1 - PCV) [facility] Start: 07-05-2011 SHINGRIX VACCINE (1 of 2) GRAY GRIX VACCINE (1 of 2) [facility] Start: 2006 COLOGUARD (FIT-DNA) COLOGUARD (FIT-D NA) [facility] Start: 2006 Colonoscopy COLONOSCOPY [facility] Start: 2006 COLORECTAL CANCER SCREENING COLORECTAL CANCER SCREENING [facility] Start: [address] COLONOGRAPHY [facility] Start: 2006 FECAL OCCULT BLOOD FECAL OCCULT BLOO D [facility] Start: 2006 Screening for malign ant neoplasm of colon [facility] Start: [address] [facility] Start: 12-10-1995 Urine microalbumin profile [facility] Start: 07-05-1991 HPV TESTING HPV TESTING [facility] Start: 07-05-1979 ANNUAL PCP TEAM [facility] CHIEF TRESSA DISEASE VISIT ANNUAL PCP TEAM CHRONIC DISEASE VISIT [facility] Start: 07-05-1979 Anxiety Screening Anxiety Screening [facility] Start: 07-05-1979 HEPATITIS C SCREENING HEPATITIS C [facility] Start: 07-05-1979 Hepatitis C screening Hepatitis C [facility] Start: 07-05-1979 HIV SCREENING HIV SCREENING [facility] Start: 07-05-1979 HIV screening HIV Screening [facility] Bacteria identified in Urine by Culture URINE CULTURE Microbiology Routine Burning with urination Ordered: 10/26/2021 [facility] Work Phone: Comment on above: Ordered: 10/26/2021 Influenza virus A an d B RNA and SARS-CoV-2 (COVID-19) N gene panel - Respiratory specimen by WILLIAM with probe detection COVID WITH FLUA+B, ROUTINE Microbiology Routine Wheeze Chronic cough Ordered: 10/26/2021 [facility] Work Phone: Comment on above: Ordered: 10/26/2021 Patient Education [facility] Work Phone: Patient referral [facility] Work Phone: XR Chest PA and Lateral [facility] Immunizations Immunization Date Immunization Notes Care Provider [facility] 12-12-2023 influenza, injectabl e, madin suraj canine kidney, preservative free Dr. Michelle Marroquin MD Work Phone: [facility] 11-27-2021 Influenza, high dose seasonal Dr. Michelle Marroquin MD Work Phone: [facility] 11-27-2021 influenza, high dose seasonal, preservative-free Dr. Rocky Barlow Work Phone: [facility] 03-10-2021 Covid (Moderna) Dr. Rocky Barlow Work Phone: [facility] 02-12-2021 Covid (Moderna) Dr. Rocky Barlow Work Phone: [facility] 12-27-2016 Influenza virus vaccine [facility] 10-16-2010 tuberculin skin test ; purified protein derivative solution, intradermal Haja Coley MD Work Phone: [facility] 01-16-2010 influenza virus vaccine, unspecified formulation Lennox Chamberlain APRN.CNP Work Phone: [facility] Work Phone: 03-29-2009 novel [id number], all formulations Lennox Chamberlain SEARCHLIGHT OPERATOR.SALES WAREHOUSE DRIVER Work Phone: [facility] Work Phone: 12-29-2008 influenza virus vaccine, unspecified formulation Lennox Chamberlain SEARCHLIGHT OPERATOR.SALES WAREHOUSE DRIVER Work Phone: [facility] Work Phone: 01-14-2008 influenza virus vaccine, unspecified formulation Lennox Chamberlain SEARCHLIGHT OPERATOR.SALES WAREHOUSE DRIVER Work Phone: [facility] Work Phone: 01-13-2007 influenza virus vaccine, unspecified formulation Lennox Chamberlain SEARCHLIGHT OPERATOR.SALES WAREHOUSE DRIVER Work Phone: [facility] Work Phone: 01-08-2003 influenza virus vaccine, whole virus Lennox Chamberlain SEARCHLIGHT OPERATOR.SALES WAREHOUSE DRIVER Work Phone: [facility] Work Phone: 12-09-1995 tetanus and diphther ia toxoids, adsorbed, preservative free, for adult use (2 Lf of tetanus toxoid and 2 Lf of diphtheria toxoid) Lennox Chamberlain MARTHA.SALES WAREHOUSE DRIVER Work Phone: [facility] Work Phone: Payers Date Payer Category Payer Medicare (Managed Care) [facility]RERA Finn [facility] [id number] 2023 Self-pay [id number] 2023 Unknown [id number] 2017 Medicaid [id number] 2017 Medicaid [id number] 1981 Medicare [id number] 1981 Medicare [id number] 1981 Medicare MEDICARE MEDICAR E A AND B [id number] 1981-Present [phone] [place] [address] Medicare [id number] Unknown [id number] Unknown [id number] 462 Unknown [id number] 462 Unknown [id number] 462 Unknown [id number] 462 Unknown [id number] 462 Unknown [id number] 462 Unknown [id number] 462 Unknown [id number] 462 Unknown [id number] 462 Unknown [id number] 462 Unknown [id number] 462 Unknown [id number] 462 Social History Date Type Detail Facility Start: 02-05-2021 End: 07-21-2023 Tobacco smoking status SDIS Unknown if ever smoked [facility] Start: 01-08-2019 Non-smoker [facility] Start: 1960 Sex Assigned At Female [facility] Start: 08-30-2010 End: 08-10-2024 Tobacco smoking status SDIS Never smoked tobacco [facility] Work Phone: Start: 08-30-2010 Tobacco use and exposure Smokeless tobacco non-user [facility] Work Phone: Start: 05-22-2020 Alcohol intake Current non-dr medical photographer of alcohol (finding) [facility] Start: 1960 Sex Assigned At Not on file [facility] Start: 10-16-2021 End: 10-26-2021 Exposure to SARS-CoV-2 (event) Not sure [facility] Work Phone: Start: 06-15-2024 Sex Female (finding) [facility] Start: 05-22-2020 End: 04-05-2022 History of Social function [facility] Start: 05-22-2020 End: 04-05-2022 Tobacco use panel [facility] Work Phone: National Score (1-100), lower number is lower risk 68 [facility] Medical Equipment Procedure Code Equipment Code Equipment Origin al Text Equipment Identifier Dates Lens Iol 0d +24 Manuel Uv Abs - [id number] Start: 03-22-2019 Lens Acrysof Ultrasert +24.5 Diopter Acrylic Iol 1 Piece Foldable Uv Blue - [id number] Start: 11-22-2019 Comment on above: Description: -1.05 Goals Date Patient Goal Desired Activity /State Functional Status Date Assessment Result Facility 01-03-2022 Functional status Bedrest [facility] Work Phone: 09-30-2014 Are you deaf, or do you have serious difficulty hearing No 09/30/2014 9:29 AM EDT Lakshmi Nguyen RN No [facility] Work Phone: 09-30-2014 Are you blind, or do you have serious difficulty seeing, even when wearing glasses No 09/30/2014 9:29 AM EDT Lakshmi Nguyen RN No [facility] 09-30-2014 Do you have serious difficulty walking or climbing stairs Yes 09/30/2014 9:29 AM EDT Lakshmi Nguyen RN Yes [facility] 09-30-2014 Do you have difficul ty dressing or bathing Yes 09/30/2014 9:29 AM EDT Lakshmi Nguyen RN Yes [facility] 09-30-2014 Because of a physica l, mental, or emotional condition, do you have difficulty doing errands alone such as visiting a physician's office or shopping Yes 09/30/2014 9:29 AM DOMINICKT Lakshmi Nguyen RN Yes [facility] Mental Status Date Assessment Result Facility 06-13-2023 Cognitive function Level Of Cons ciousness Awake [facility] Work Phone: 01-03-2022 Cognitive function Appropriate [facility] Work Phone: 09-12-2014 Because of a physica l, mental, or emotional condition, do you have serious difficulty concentrating, remembering, or making decisions No 09/12/2014 8:23 AM EDT April Raza MA No [facility] Clinical Notes 10-26-2021 to 08-26-2024 Haja Coley MD - 08/26/2024 6:40 PM EDT Note Date & Type Note Facility 08-26-2024 Note HNO ID: [id number] Author: HAJA COLEY MD Service: ? Author Type: Physician Type: Progress Notes Filed: 08/26/2024 18:45 Note Text: [facility] Subjective Tonyatahmina Fletcher is a 64 year [...] following reason(s): Benign exam and vitals Procedures [facility] 08-26-2024 History of Present illness Narrative MAHOGANY [...] vitals Procedures documented in this encounter [facility] 04-21-2024 Evaluation note Diagnosis Onset Date [...] Urinary incontinence chronic Apri l 2024 12:50pm [facility] Work Phone: 1(109) 200-403404-05-2024 Discharge summary Author Haresh Curtis [facility] June 13, 2023 8:23am Note Date/Time June 13, 2023 6:33 am [facility] Medical Records Department [address] [place] [address] Emergency Department Summary 06/13/23 MR#: [id number] Acct: [id number] Name: TONYA FLETCHER Rep #:[id number] 18 : 1960 62 From: Haresh Curtis DO PCP: Dr. Rocky Barlow MD Status:REG E R Location: ED HPI History of Present Illness Chief Complaint: General Illness Informant: patient and legal guardian Narrative Narrative: Patient is a 62-year-old female with past medical history of cerebral palsy as well as previous pulmonary embolism currently on Xarelto hypothyroidism and hyperlipidemia. Record Systems Analyst reports that she awoke around 2:30/2:45 in the morning to sounds of retching and the patient had 3 bouts of vomiting. Record Systems Analyst states that the vomit was whenever was in her stomach and then turned to bile and was not dark or bloody. Reportedly the patient has a remote historyof bowel obstruction and the commercial diver denies any recent diarrhea and therefore was concerned for this and called EMS to bring her in for evaluation. The patient cannot offer any further history based on her cerebral palsy Please note commercial diver states that she and her other commercial diver were both sick with similar symptoms just last week. [facility] Medical History Allergic rhinitis Barretts esophagus Cerebral [...] note review of systems was obtained from commercial diver Constitutional Constitutional ED: Denies fever(s) ENT ENT [...] Differential diagnosis is for viral infection suchas [place] virus versus rotavirus versus electrolyte abnormality versus [...] & Record Review Discussion w/independent historian: Other (Record Systems Analyst) Lab Data Attestation: I reviewed the patient's lab results. Labs: Laboratory Results - last 24 hr 06/13/23 06:12 WBC 9.0 RBC 4.62 Hgb 14.3 Hct 43.6 MCV 94.4 MCH 31.0 MCHC 32.8 RDW Std Deviation 47.4 H RDW Coeff of Handy 13.5 Plt Count 321 MPV 10.5 Immature Gran % (Auto) 0.200 Neut % (Auto) 80.0 H Lymph % (Auto) 12.[address] [place] % (Auto) 4.6 Eos % (Auto) 2.5 [...] your Primary Care Provider. Call [facility] ([phone]) or report to the closest Emergency Room. Call 911 if necessary. 06/13/23822 <Electronically signed by Haresh Curtis DO> Cosigner Signature (if applicable): CC: Dr. Rocky Barlow MD ~ Signed [facility] Work Phone: 1(288) 771-518310-25-[address] [facility] 10-29-2021 Miscellaneous Notes* Telephone Encounter - Mary Alice Sumner RN - 10/29/2021 10:43 AM EDT Erica Askew with [facility] notified. Patient did already take diflucan and symptoms have improved. Mary Alice Sumner RN * Telephone Encounter - Mary Alice Sumner RN - 10/29/2021 9:49 AM EDT Left voicemail on [facility] to call office. Mary Alice Sumner RN * Telephone Encounter - Kathya Eric APRN.CNM - 10/27/2021 12:04 PM EDT Please notify patient that results are negative. She did receive 1 dose of Diflucan. If any furtherissues or concerns to please let us know and can decide on another treatment plan for symptoms.Kathya Eric APRN.CNM documented in this encounterWvumed[facility]08-20-2022 Miscellaneous Notes* Telephone Encounter - Libby Mariano - 10/27/2021 2:30 PM EDT Patient given results and verbalized understanding of instructions given. Libby Mariano * Telephone Encounter - Libby Mariano - 10/27/2021 2:05 PM EDT ----- Message from Melba Suarez APRN.SALES WAREHOUSE DRIVER sent at 10/27/2021 1:54 PM EDT ----- Urine culture did not show clear evidence of infection, however it appears sample may have been contaminated with skin bacteria during collection. If not improving, recommend follow up with PCP. Melba Suarez CNP documented in this encounterWvumedicine [facility]08-19-2022 Instructions* Patient Instructions* Kathya Eric APRN.JOSHM - [...] for diabetes Get tested for HIV/AIDS Copyright 7353-1808 [facility]. All rights reserved. This information is provided by the [facility] and is not intended to replace the medical advice of your doctor or health care provider. Please consult your health care provider for advice about a specific medical condition. For additional written health information, please contact the [facility] at the [facility] or toll-free extension [phone]. This document was last reviewed on: 2004 index#[id number] documented in this encounterWvumedicine Harrison [facility] Hospital08-19-2022 History of Present illness Narrative* Kathya [...] L0 SAB0 IAB0 Ectopic0 Multiple0 Live Births0 Agricultural Crop Farm Manager History LMP: LMP Unknown, Postmenopausal Age at Menarche: Age at First : Age at Menopause: Agricultural Crop Farm Manager History Comments: Sexual Activity: Never; No partner data on record Contraception: No contraception data on record PAST MEDICAL HISTORY Diagnosis Date Allergic rhinitis due to other allergen Depressive disorder, not elsewhere classified Sees Dr. Anna Tomlin from [facility] Esophageal reflux suspected cause of emesis episodes [...] EGD W/O OR W/BRUSH/WASH 05/22/2017 EGD w/biopsy [facility] EGD W/O OR W/BRUSH/WASH 05/28/2018 PAST SURGICAL [...] once daily. COMPOUNDED PRESCRIPTION Light talker [employer] Pathfinder Device with Table Mount, Wheelchair Mount [...] Kathya Eric APRN.CNM documented in this encounterWvumedicine Harrison [facility] Hospital08-19-2022 History of Present illness Narrative* Lennox Chamberlain APRN.SALES WAREHOUSE DRIVER - 10/26/2021 8:17 AM EDT Subjective HPI HPI Tonya Fletcher is a 61 year old female who presents today for CC of burning with urination. This started 1 week ago. Has tried nothing for relief. Symptoms are worsened by nothing. staff antisubmarine officer reports no visible abnormality in area. Patient [...] elsewhere classified Sees Dr. Anna Tomlin from [facility] Esophageal reflux suspected cause of emesis episodes [...] EGD W/O OR W/BRUSH/WASH 05/22/2017 EGD w/biopsy [facility] EGD W/O OR W/BRUSH/WASH 05/28/2018 PAST SURGICAL [...] buttocks twice daily COMPOUNDED PRESCRIPTION Light talker [employer] Pathfinder Device with Table Mount, Wheelchair Mount [...] culture - will try to get earlier clinical research assistant appointment Worsening symptoms go to ER. - [...] Lennox Chamberlain APRN.CNP documented in this encounterWvumedicine Harrison [facility] Hospital08-19-2022 Instructions* Patient Instructions* Lennox Chamberlain APRN.CNP - 10/26/2021 8:09 AM EDT ASSESSMENT/PLAN: 1. Burning with urination - ICD9: 788.1, ICD10: R30.0 (primary diagnosis) Acute -urinalysis negative - Send urine for culture - will try to get earlier clinical research assistant appointment Worsening symptoms go to ER. - [...] breath go to ER documented in this encounterWvumedicine Harrison Community HospitalEvaluation noteNo assessment information availableWPaulding County Hospital Work Phone: Evaluation note* Diagnosis Burning with urination- Primary Dysuria Wheeze Wheezing Chronic cough Cough documented in this encounter [facility] Hospital[facility] [place] [facility]* Diagnosis Vaginal itching- Primary Pruritus of genital organs Vaginal burning Other specified symptom associated with female genital organs Vaginal odor Unspecified symptom associated with female genital organs Vaginal discharge Leukorrhea, not specified as infective documented in this encounter [facility] HospitalEvalutidalhealth [place] note* Diagnosis Onset Date Resolution Status Acute respiratory failure with hypoxia acute RSV bronchitis acute Tachycardia acute [facility] Work Phone: Evaluation note* Diagnosis Onset Date Resolution Status RSV bronchitis acute Acute respiratory failure with hypoxia resolved Tachycardia resolved Gastroenteritis acute URI (upper respiratory infection) acute [facility] Work Phone: Evaluation note* Diagnosis Pre-operative examination- [...] vomiting type- Primary [facility] Additional Instructions Your workup today does not show any signs of aspiration or small bowel obstruction. Symptoms are most likely related to a viral stomach infection based on your negative workup and exposure. Use the Zofran as directed to help control any further bouts of nausea and vomiting and return to the ER should you have any further concernsWPaulding County Hospital Work Phone: Hospital Discharge instructions Additional [...] if she develops a fever or is worse.[facility] Work Phone: Reason for referral (narrative)No reason for referral information availableWPaulding County Hospital Work Phone: Summary Purpose Family History [...] Will No February 05 11:33pm Power of Retail Maintenance Technician No February 05, 2021 11:33pm Advance Directive Response Recorded Date/ Time Name of Medical Power of Retail Maintenance Technician Jess anders January 02, 2022 9:53pm Advance Directives No May 25 9:26am Living Will No January 02 9:53pm Power of Retail Maintenance Technician Yes January 02, 2022 9:53pm Advance Directive Response Recorded Date/ Time Name of Medical Power of Retail Maintenance Technician Jess anders January 02, 2022 8:53pm Advance Directives No January 1:53pm Living Will No March 21 5:49pm Power of Retail Maintenance Technician No March 21, 2022 5:49pm Advance Directive Response Recorded Date/ Time Advance Directives No January 2:53pm Living Will No March 21 6:49pm Power of Retail Maintenance Technician No March 21, 2022 6:49pm Advance Directive Response Recorded Date/ Time Advance Directives No January 2:53pm Living Will No August 15, 2022 5 :22pm Power of Retail Maintenance Technician No August 15, 2022 5:22pm Advance Directive Response Recorded Date/ Time Advance Directives No January 1:53pm Living Will No August 15, 2022 4 :22pm Power of Retail Maintenance Technician No August 15, 2022 4:22pm Advance Directive Response Recorded Date/ Time Advance Directives No January 2:53pm Living Will No July 21, 2023 8 :44am Power of Retail Maintenance Technician No July 21, 2023 8:44am Advance Directive Response Recorded Date/ Time Living Will No October 08, 2023 3:03pm Do you have a Healthcare Power of Retail Maintenance Technician? No October 08, 2023 3:03pm Living Will No April 09 9:36pm Do you have a Healthcare Power of Retail Maintenance Technician? No April 09, 2024 9:36pm Advance Directives No October 07 3:03pm Advance Directive Response Recorded Date/ Time Living Will No October 08, 2023 3:03pm Do you have a Healthcare Power of Retail Maintenance Technician? No October 08, 2023 3:03pm Advance Directives No October 07 3:03pm Advance Directive Response Recorded Date/ Time Living Will No October 08, 2023 3:03pm Do you have a Healthcare Power of Retail Maintenance Technician? No October 08, 2023 3:03pm Advance Directives [...] section and content) DATE CREATED AUTHOR 09/03/2017 [facility] DATE CREATED AUTHOR AUTHOR'S ORGANIZ ATION 02/15/2018 [facility] DATE CREATED AUTHOR AUTHOR'S ORGANIZ ATION 08/29/2024 [facility] DATE CREATED AUTHOR AUTHOR'S ORGANIZ ATION 09/05/2024 [facility] Goals (unrecognized section and content) Goals [...] prosecute any alcohol or drug abuse patient.[facility] HospitalIn the event this information is protected by the Federal Confidentiality of Alcohol and Drug Abuse Patient Records regulations: The Federal rules restrict any use of the information to criminally investigate or prosecute any alcohol or drug abuse patient.[facility] HospitalIn the event this information is protected by the Federal Confidentiality of Alcohol and Drug Abuse Patient Records regulations: The Federal rules restrict any use of the information to criminally investigate or prosecute any alcohol or drug abuse patient.[facility] HospitalIn the event this information is protected by the Federal Confidentiality of Alcohol and Drug Abuse Patient Records regulations: The Federal rules restrict any use of the information to criminally investigate or prosecute any alcohol or drug abuse patient.[facility] HospitalIn the event this information is protected by the Federal Confidentiality of Alcohol and Drug Abuse Patient Records regulations: The Federal rules restrict any use of the information to criminally investigate or prosecute any alcohol or drug abuse patient.[facility] Reason for Visit (unrecogniz ed section and content) Reason Comments Urinary Problem burning with urinati on, cough, congestion and wheezing x 1 day Reason Comments Results, Lab Results Reason Comments Results Reason Comments Nausea & Vomiting Fever started today Care Teams (unrecognized sec tion and content) Director Hr Communications Relationship Specialty Start Date End Date Rocky Barlow Chi [address] [place], [place] [id number] PCP - General Family Practice 09/24/12 Bartolo Philippe [facility] [place], [place] [address] Referring Ophthalmology 12/30/18 Director Hr Communications Relationship Specialty Start Date End Date Rocky Barlow Chi [address] [place], [place] [phone] PCP - General Family Practice 09/24/12 Bartolo Philippe [address] [place] [address] Referring Ophthalmology 12/30/18 Director Hr Communications Relationship Specialty Start Date End Date Rocky Barlow Chi [address] [place] [address] PCP - General Family Practice 09/24/12 Bartolo Philippe [facility] [place] [address] Referring Ophthalmology 12/30/18 Team Status: Active Member [...] August 10, 2024 End: August 10, 2024 Director Hr Communications Relationship Specialty Start Date End Date Rocky Barlow Chi [address] [phone] PCP - General Family Medicine 09/24/12 Bartolo Philippe MD [address] [place], [place] [phone] (work) Referring Ophthalmology 12/30/18 FOR RECORDS PERTAINING [...] BE BASED ON THE PRIMARY CLINICAL RECORDS. [email or web address] [facility]. provides no warranty or guarantee of the accuracy or completeness of information in this document.
--- OUTSIDE RECORDS SUMMARY | 2024-09-05 13:47 | XMS RPT_ITS | CCD ---
Author Organization [facility] Care Team Providers Care Spray Applicator Name Role Phone Yang Abrams Unavailable Unavailable Cain, Rocky-Chi Unavailable Unavailable Yang Abrams Unavailable Unavailable Cain, Rocky-Chi Unavailable Unavailable AMINIAN, ALI Unavailable Unavailable AMINIAN, ALI Unavailable Unavailable AMINIAN, ALI Unavailable Unavailable Cain, Rocky Chi Primary Care Provider 1([facility])[phone] Bartolo Philippe Unavailable 1([facility])[phone] Dr. Rocky Barlow Chi Primary Care Provider 1([facility])[phone] Dr. Shazia Fortune Emergency Provider 1([facility])[phone] Maximiliano Ortiz Admit Provider Dr. Maximiliano Ortiz Attending Provider 1([facility])[phone] Maximiliano Ortiz Other Provider Dr. Jeni Ann Attending Provider 1([facility])[phone] Jeni Ann Other Provider Dr. Rocky Barlow Chi Primary Care Provider 1([facility])[phone] Dr. Shazia Fortune Emergency Provider 1([facility])[phone] Maximiliano Ortiz Admit Provider Dr. Maximiliano Ortiz Attending Provider 1([facility])[phone] Maximiliano Ortiz Other Provider Dr. Jeni Ann Attending Provider 1([facility])[phone] Jeni Ann Other Provider Dr. Rocky Barlow Chi Referring Provider 1([facility])[phone] XUAN Pope Attending Provider Lopez LEVY, Dr. Martinez Primary Care Provider Gregory Coleman MD Attending Provider Virginia LEVY, Gregory Emergency Provider Lopez LEVY, Dr. Martinez Attending Provider Lopez LEVY, Dr. Martinez Referring Provider Christ Saldivar Attending Provider Lopez LEVY, Dr. Martinez Primary Care Provider Cain, [facility] Primary Care Provider Denae LEVY, Bartolo Ervin Unavailable [phone] CAIN, [facility] Primary Care Unavailable HAJA COLEY Attending [...] to drug (disorder) 1 Diarrhea [facility] Repository (2 sources) OTHER; Translations: [OTHER] Propensity to adverse reactions (disorder) 5 [facility] Repository (20 sources) Amoxicillin; Translations: [amoxicillin trihydrate] Drug Allergy 1 Unknown [facility] (20 sources) potassium clavulanate; Translations: [potassium clavulanate] Propensity to adverse reactions 1 Unknown [facility] (6 sources) Potassium; Translations: [POTASSIUM] Drug Allergy 9 Intolerance [facility] Work Phone: (5 sources) OTHER [Other] Propensity to adverse reactions 5 [facility] Work Phone: Medications Current Medications [...] Start: 07-31-2023 take 2 tablets by mo [facility] once daily, then take 3 tablets by [...] sources) Provitamin D2 Compound Start: 11-13-2018 take 63595 [IU] by mouth every month Ergocalciferol (Vitamin D2) Active 32058 UNIT PO EVERY MONTH November 13, 2018 [...] June 13, 2023 6:59am polyethylene glycol 3350 74484 mg powder for oral solution (12 sources) [...] sources) Long-term current use of anticoagulant; 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, [address] Absolute Neut 7.5 X10 3/uL Normal 2.0-7.7 [facility] Comment on above: Performed By: #### L 100.0100, L500.4050, BTS ####[facility] [address] [place], [address] Basophils/100 WBC (Bld) 0.8 % Normal 0-[address] [facility] Comment on above: Performed By: #### L 100.0100, L500.4050, BTS ####[facility] [address] [place], [address] Eosinophils/100 WBC (Bld) 2.5 % Normal 0-5 [facility] Comment on above: Performed By: #### L 100.0100, L500.4050, BTS ####[facility] [address] [place], [address] Erythrocyte distribution width (RBC) [Ratio] 13.5 % Normal 11.6-14.6 [facility] Comment on above: Performed By: #### L 100.0100, L500.4050, BTS ####[facility] [address] [place], [address] Hematocrit (Bld) [Volume fraction] 41.2 % Normal 37-47 [facility] Comment on above: Performed By: #### L 100.0100, L500.4050, BTS ####[facility] [address] [place], [address] Hemoglobin (Bld) [Mass/Vol] 13.9 g/dL Normal 12.0-15.0 [facility] Comment on above: Performed By: #### L 100.0100, L500.4050, BTS ####[facility] [address] [place], [address] IG% 0.200 Normal 0.0-0.9 [facility] Comment on above: Result Comment: IG% - Immature Granulocytes (promyelocytes, myelocytes and metamyelocytes) > 1% indicates that a LEFT SHIFT is Present. Performed By: #### L 100.0100, L500.4050, BTS ####[facility] [address] [place], [address] Lymphocytes/100 WBC (Bld) 28.4 % Normal 19-41 [facility] Comment on above: Performed By: #### L 100.0100, L500.4050, BTS ####[facility] [address] [place], [address] MCH (RBC) [Entitic mass] 32.0 pg Normal 27.0-32.0 [facility] Comment on above: Performed By: #### L 100.0100, L500.4050, BTS ####[facility] [address] [place], [address] MCHC (RBC) [Mass/Vol] 33.7 g/dL Normal 32-36 [facility] Comment on above: Performed By: #### L 100.0100, L500.4050, BTS ####[facility] [address] [place], [address] MCV (RBC) [Entitic vol] 94.9 fL Normal 81-99 [facility] Comment on above: Performed By: #### L 100.0100, L500.4050, BTS ####[facility] [address] [place], [address] Monocytes/100 WBC (Bld) 6.0 % Normal 0-10 [facility] Comment on above: Performed By: #### L 100.0100, L500.4050, BTS ####[facility] [address] [place], [address] Neutrophils/100 WBC (Bld) 62.1 % Normal 47-70 [facility] Comment on above: Performed By: #### L 100.0100, L500.4050, BTS ####[facility] [address] [place], [address] Nucleated RBC (Bld) [#/Vol] 0 10*3/uL Normal 0-5 [facility] Comment on above: Performed By: #### L 100.0100, L500.4050, BTS ####[facility] [address] [place], [address] Platelet mean volume (Bld) [Entitic vol] 11.2 fL Normal 6.2-12.0 [facility] Comment on above: Performed By: #### L 100.0100, L500.4050, BTS ####[facility] [address] [place], [address] Platelets (Bld) [#/Vol] 263 10*3/uL Normal 150-450 [facility] Comment on above: Performed By: #### L 100.0100, L500.4050, BTS ####[facility] [address] [place], [address] RBC (Bld) [#/Vol] 4.34 10*6/uL Normal 4.2-5.4 [facility] Comment on above: Performed By: #### L 100.0100, L500.4050, BTS ####[facility] [address] [place], [address] RDW SD 47.7 fl High 35.1-43.9 [facility] Comment on above: Performed By: #### L 100.0100, L500.4050, BTS ####[facility] [address] [place], [address] WBC (Bld) [#/Vol] 12.1 10*3/uL High 4.4-11.0 [facility] Comment on above: Performed By: #### L 100.0100, L500.4050, BTS ####[facility] [address] [place], [address] Comprehensive Metabolic Prof ilon 09-05-2024 Albumin [Mass/Vol] 3.8 g/dL Normal 3.4-4.8 [facility] Comment on above: Performed By: #### L 100.0100, L500.4050, BTS ####[place] [facility] [address] [place], [address] Albumin/Globulin [Mass ratio] 1.2 {ratio} Normal 0.9-2.4 [facility] Comment on above: Performed By: #### L 100.0100, L500.4050, BTS ####[facility] [address] [place], [address] ALK PHOS 86 U/L Normal 35-104 [facility] Comment on above: Performed By: #### L 100.0100, L500.4050, BTS ####[facility] [address] [place], [address] ALT [Catalytic activity/Vol] 5 U/L Normal <=34 [facility] Comment on above: Performed By: #### L 100.0100, L500.4050, BTS ####[facility] [address] [place], [address] AST [Catalytic activity/Vol] 15 U/L Normal <=31 [facility] Comment on above: Result Comment: Hemo lysis present, Results??could be affected. ?? Performed By: #### L 100.0100, L500.4050, BTS ####[facility] [address] [place], [address] Bilirubin [Mass/Vol] 0.39 mg/dL Normal 0.00-1.30 [facility] Comment on above: Performed By: #### L 100.0100, L500.4050, BTS ####[facility] [address] [place], [address] BUN/CRE 22.1 RATIO High 10-20 [facility] Comment on above: Performed By: #### L 100.0100, L500.4050, BTS ####[facility] [address] [place], [address] Calcium [Mass/Vol] 9.0 mg/dL Normal 7.6-11.0 [facility] Comment on above: Performed By: #### L 100.0100, L500.4050, BTS ####[facility] [address] [place], [address] Chloride [Moles/Vol] 104 mmol/L Normal 98-108 [facility] Comment on above: Performed By: #### L 100.0100, L500.4050, BTS ####[facility] [address] [place], [address] CO2 [Moles/Vol] 24.1 mmol/L Normal 21.0-32.0 [facility] Comment on above: Performed By: #### L 100.0100, L500.4050, BTS ####[facility] [address] [place], [address] Creatinine [Mass/Vol] 0.47 mg/dL Low 0.70-1.20 [facility] Comment on above: Performed By: #### L 100.0100, L500.4050, BTS ####[facility] [address] [place], [address] GAP 12 Normal 5-15 [facility] Comment on above: Performed By: #### L 100.0100, L500.4050, BTS ####[facility] [address] [place], [address] GFR/1.73 sq M.predicted among non-blacks MDRD (S/P/Bld) [Vol rate/Area] 107 mL/min/{1.73_m2} Normal >60 [facility] Comment on above: Result Comment: mL/m in/1.73m2 CKD-EPI Creatinine Equation (2020) Performed By: #### L 100.0100, L500.4050, BTS ####[facility] [address] [place], [address] Globulin (S) [Mass/Vol] 3.1 g/dL Normal 2.2-4.[address] [facility] Comment on above: Performed By: #### L 100.0100, L500.4050, BTS ####[facility] [address] [place], [address] Glucose [Mass/Vol] 105 mg/dL High 70-99 [facility] Comment on above: Performed By: #### L 100.0100, L500.4050, BTS ####[facility] [address] [place], [address] Potassium [Moles/Vol] 4.2 mmol/L Normal 3.3-5.1 [facility] Comment on above: Result Comment: Hemo lysis present, Results??could be affected. ?? Performed By: #### L 100.0100, L500.4050, BTS ####[facility] [address] [place], [address] Sodium [Moles/Vol] 140 mmol/L Normal 133-145 [facility] Comment on above: Performed By: #### L 100.0100, L500.4050, BTS ####[facility] [address] [place], [address] T PROT 6.9 g/dL Normal 5.9-8.4 [facility] Comment on above: Performed By: #### L 100.0100, L500.4050, BTS ####[facility] [address] [place], [address] Urea nitrogen [Mass/Vol] 10 mg/dL Normal 4-19 [facility] Comment on above: Performed By: #### L 100.0100, L500.4050, BTS ####[facility] [address] [place], [address] HH, Hemoglobin AND Hematocri ton 09-05-2024 Hematocrit (Bld) [Volume fraction] 36.8 % Low 37-47 [facility] Comment on above: Performed By: #### L 100.0600 ####[facility] [address] [place], [address] Hemoglobin (Bld) [Mass/Vol] 12.6 g/dL Normal 12.0-15.0 [facility] Comment on above: Performed By: #### L 100.0600 ####[facility] [address] [place], [address] Type AND Screenon 09-05-2024 Ab SCREEN GEL PENDING Normal [facility] Comment on above: Order Comment: LANDON W. PREVIOUS SPECIMEN REJECTED DUE TOQNS. 09/05/2438 Felipa Sick.HGI Performed By: #### B TS ####[facility] [address] [place], [address] A1 CELL Not performed Normal [facility] Comment on above: Order Comment: HGI Result Comment: This specimen has been REJECTED due to Laboratory criteria: Quanity Not Sufficient. ED has been notified of need of recollection. 09/05/2437 Felipa Sick Performed By: #### L 100.0100, L500.4050, BTS ####[facility] [address] [place], [address] Ab SCREEN GEL Not performed Normal [facility] Comment on above: Order Comment: HGI Result Comment: This specimen has been REJECTED due to Laboratory criteria: Quanity Not Sufficient. ED has been notified of need of recollection. 09/05/2437 Felipa Sick Performed By: #### L 100.0100, L500.4050, BTS ####[facility] [address] [place], [address] ABO and Rh group Nom (Bld) Test Not Performed Normal [facility] Comment on above: Order Comment: HGI Result Comment: This specimen has been REJECTED due to Laboratory criteria: Quanity Not Sufficient. ED has been notified of need of recollection. 09/05/24836 Felipa Sick Performed By: #### L 100.0100, L500.4050, BTS ####[facility] [address] [place], [address] ANTI A Not performed Normal [facility] Comment on above: Order Comment: HGI Result Comment: This specimen has been REJECTED due to Laboratory criteria: Quanity Not Sufficient. ED has been notified of need of recollection. 09/05/24 Felipa Sick Performed By: #### L 100.0100, L500.4050, BTS ####[facility] [address] [place], [address] ANTI B Not performed Normal [facility] Comment on above: Order Comment: HGI Result Comment: This specimen has been REJECTED due to Laboratory criteria: Quanity Not Sufficient. ED has been notified of need of recollection. 09/05/24 Felipa Sick Performed By: #### L 100.0100, L500.4050, BTS ####[facility] [address] [place], [address] ANTI D Not performed Normal [facility] Comment on above: Order Comment: HGI Result Comment: This specimen has been REJECTED due to Laboratory criteria: Quanity Not Sufficient. ED has been notified of need of recollection. 09/05/24 Felipa Sick Performed By: #### L 100.0100, L500.4050, BTS ####[facility] [address] [place], [address] B CELLS Not performed Normal [facility] Comment on above: Order Comment: HGI Result Comment: This specimen has been REJECTED due to Laboratory criteria: Quanity Not Sufficient. ED has been notified of need of recollection. 09/05/2437 Felipa Sick Performed By: #### L 100.0100, L500.4050, BTS ####[facility] [address] [place], [address] [facility] 08-26-2024 CN Office Visit (UCWSTR ) TONYA FLETCHER ([id number]) 1960 F Date Time Provider Department 08/26/24 6:15 PM HAJA COLEY [facility] During your visit today, we recorded the following information about you: Temperature Pulse Respiration Blood pressure 96.8 degrees 82/minute 21/minute 130/78 Haja Coley MD 08/26/2024 6:45 PM Signed [facility] Subjective Tonya Fletcher is a [...] twice daily - COMPOUNDED PRESCRIPTION Light talker [employer] Pathfinder Device with Table Mount, Wheelchair Mount and carrying case Diagnosis: Cerebral Palsy 343.8 Note: patient has no functional speech abilities - WHEELCHAIR CUSHION MISC Use daily for prevention of decubitus Meds Comments as of 02/09/2019: 02/09/19 The medications are managed by this patient by: CAREGIVER Marina oLbo Problem List As Of Date 08/26/2024 Noted Resolved Cerebral palsy (HCC) [G80.9] Depression [F32.A] CONSTIPATION NOS [K59.00] 0 (more content not included)... Normal [facility] Urgent Care Visit Reporton 0 08-10-2024 Urgent Care Visit Report [facility] [address], [address] [place] [address] OFFICE VISIT Date of Service: 08/10/24 MR#: [id number] Acct: [id number] Name: TONYA FLETCHER Rep #: [id number] : 1960 Provider: XUAN Casey Age/Sex: 64/F Location: [facility] Status: Signed Intake Vital Signs 04/21/24 13:58 [...] 10 mg/30 mL enema (Fleet 5 mg MI DAILY PRN 07/31/2308/10 History Bisacodyl) bismuth subsalicylate [...] it was just a normal BM today. [facility] Medical History (Updated 08/10/24 [...] THC LAST (more content not included)... Normal [facility] Calculated very low density lipoprotein (VLDL) cholesterol measurementOrdered By: Michelle Marroquin on 06-11-2024 Calculated very low density lipoprotein (VLDL) cholesterol measurement 15 mg/dL 5-40 [facility] VLDL Cholesterol 15 mg/dL -40 [facility] Internal Medicine Office Vis [facility] 06-11-2024 Internal Medicine Office Visit [facility] [address] [place] [address] [address] [place] [address] OFFICE VISIT Date of Service: 06/11/24 MR#: [id number] Acct: [id number] Name: TONYA FLETCHER Rep #: [id number] : 1960 Provider: Dr. Michelle brambila MD Age/Sex: 63/F Location: [facility] Status: Signed Intake Vital Signs 10/08/23 15:03 [...] 10 mg/30 mL enema (Fleet 5 mg MI DAILY PRN 07/31/2306/11 History Bisacodyl) bismuth subsalicylate [...] #21 caps 05/18/24 Rx Nurse's Note: pt's MANHOLE BUILDER accompanied her to appt today. she reports no changes to medications, medical/surgical history or allergies. [facility] Medical History (Updated 06/11/24 [...] F who (more content not included)... Normal [facility] LDL calc ser/plasOrdered By: Michelle Marroquin on 06-11-2024 Cholesterol in LDL [Mass/Vol] 123 mg/dL [facility] Comment on above: Cnzajputks=050-451 m g/dL & Higher Baap=546 mg/dL or greater LDL Cholesterol, Calculated 123 mg/dL [facility] Comment on above: Rqwvgqvvek=537-103 m g/dL & Higher Hpdh=192 mg/dL or greater Lipid Profileon 06-11-2024 CHOL:HDL 3.11 Normal [facility] Comment on above: Performed By: #### L 506.1001, L500.4100 #### [facility] [address] [place], [place], [phone] (989) Cholesterol [Mass/Vol] 204 mg/dL High <=200 [facility] Comment on above: Result Comment: Chol esterol level, Desirable <200 mg/dL Borderline high cholesterol 200-239 mg/dL High cholesterol >=240 mg/dL Recommendations of the NCEP Adult Treatment Panel for the following risk-cutoff thresholds for the [place] population. Performed By: #### L 506.1001, L500.4100 #### [facility] [address] [place], [place], [id number] Cholesterol in HDL [Mass/Vol] 66 mg/dL Normal [facility] Comment on above: Result Comment: Ludmila onal Cholesterol Education Program (NCEP) guidelines: <40 mg/dL: Low HDL-cholesterol (major risk factor for CHD) >= 60 mg/dL: High HDL-cholesterol (negative risk factor for CHD) HDL-cholesterol is affected by a number of factors, e.g. smoking, exercise, hormones, sex and age. Performed By: #### L 506.1001, L500.4100 #### [facility] [address] [place], [place], [phone] (873) Cholesterol in LDL [Mass/Vol] 123 mg/dL Normal [facility] Comment on above: Result Comment: Bord ocfjcn=845-690 mg/dL Higher Lono=218 mg/dL or greater Performed By: #### L 506.1001, L500.4100 #### [facility] [address] [place], [address] Cholesterol in VLDL [Mass/Vol] 15 mg/dL Normal 5-40 [facility] Comment on above: Performed By: #### L 506.1001, L500.4100 #### [facility] [address] [place], [address] Triglyceride [Mass/Vol] 75 mg/dL Normal [facility] Comment on above: Result Comment: The drugs N-Acetylcysteine and Metamizole may falsely depress this assay. Normal range: <150 mg/dL Borderline High: 150-199 mg/dL High: 200-499 mg/dL Very High: >500 mg/dL Performed By: #### L 506.1001, L500.4100 #### [facility] [address] [place], [place], [address] Screening total cholesterol/ high density lipoprotein (HDL) cholesterol ratioOrdered By: Michelle Marroquin on 06-11-2024 Cholesterol.total/Tanvi sterol in HDL [Mass ratio] 3.11 {ratio} [facility] Serum or plasma cholesterol in HDL measurement (mass/volume)Ordered By: Michelle Marroquin on 06-11-2024 Cholesterol in HDL [Mass/Vol] 66 mg/dL >40 [facility] Comment on above: National Cholesterol Education Program (NCEP) guidelines:<40 mg/dL: Low HDL-cholesterol (major risk factor for CHD)>= 60 mg/dL: High HDL-cholesterol (negative risk factor for CHD)HDL-cholesterol is affected by a number of factors, e.g. smoking, exercise, hormones, sex and age. Serum or plasma cholesterol measurement (mass/volume)Ordered By: Michelle Marroquin on 06-11-2024 Cholesterol [Mass/Vol] 204 mg/dL High <201 [facility] Comment on above: Cholesterol level, D esirable <200 mg/dLBorderline high cholesterol 200-239 mg/dLHigh cholesterol >=240 mg/dLRecommendations of the NCEP Adult Treatment Panel for the following risk-cutoff thresholds for the [place] population. Triglycerides measurementOrd ered By: Michelle Marroquin on 06-11-2024 Triglyceride [Mass/Vol] 75 mg/dL <[address] [facility] Comment on above: The drugs N-Acetylcy steine and Metamizole may falsely depress this assay. Normal range: <150 mg/dLBorderline High: 150-199 mg/dLHigh: 200-499 mg/dLVery High: >500 mg/dL Vitamin D, 25-hydroxyOrdered By: Michelle Marroquin on 06-11-2024 Vitamin D 25-Hydroxy 35.0 ng/mL 30-100 [facility] Comment on above: Vitamin D StatusDefi ciency: <20 ng/mL (50nmol/L)Insufficiency: 20-30 ng/mL (50-75 nmol/L)Sufficiency: 30-100 ng/mL (75-250 nmol/L)Toxicity: >100 ng/mL (>250 nmol/L) Vitamin D,25 Hydroxyon 06-11 Vitamin D 25-OH 35.0 ng/mL Normal 30-100 [facility] Comment on above: Result Comment: Ct min D Status Deficiency: <20 ng/mL (50nmol/L) Insufficiency: 20-30 ng/mL (50-75 nmol/L) Sufficiency: 30-100 ng/mL (75-250 nmol/L) Toxicity: >100 ng/mL (>250 nmol/L) Performed By: #### L 506.1001, L500.4100 #### [facility] Laboratory [address] [place], [place], [id number] Urgent Care Visit Reporton 0 05-18-2024 Urgent Care Visit Report [facility] [address], [address] [place], [place] [id number] OFFICE VISIT Date of Service: 05/18/24 MR#: [id number] Acct: [id number] Name: TONYA FLETCHER Rep #: [id number] : 1960 Provider: XUAN Casey Age/Sex: 63/F Location: [facility] Status: Signed Intake Vital Signs 04/21/24 13:58 [...] does express localized tenderness to palpation. No yqwu-dci-fofdbnk medications taken to assist. No other associated symptoms and no other alleviating/aggravating factors. ROS Const Constitutional: No other (As above) Exam Const General: cooperative, healthy appearing and no acute distress Orientation: alert and awake [facility] Head: normal to inspection Ears: hearing [...] Valentino Signature: Date (if applicable) CC: Normal [facility] Absolute lymphocyte countOrd ered By: Michelle Marroquin on 04-21-2024 Lymphocytes Auto (Unsp spec) [#/Vol] 2.12 10*3/uL 0.83-4.51 [facility] Absolute neutrophil countOrd ered By: Michelle Marroquin on 04-21-2024 Neutrophils (Bld) [#/Vol] 2.9 10*3/uL 2.0-7.7 [facility] Albumin to globulin ratioOrd ered By: jorge Marroquin on 04-21-2024 Albumin/Globulin [Mass ratio] 0.8 {ratio} Low 0.9-2.4 [facility] Automated lymphocyte count a s percentage of total leukocytesOrdered By: Leighajorge Neririchielizbeth on 04-21-2024 Lymphocytes/100 WBC Auto (Unsp spec) 33.8 % 19-41 [facility] Basophil percentageOrdered B y: Eveliosinai Neriselvin on 04-21-2024 Basophils/100 WBC (Bld) 1.0 % 0-[address] [facility] Bilirubin, totalOrdered By: jorge Daronslevin on 04-21-2024 Bilirubin [Mass/Vol] 0.30 mg/dL 0.20-1.00 [facility] Comment on above: For patients on eltr ombopag therapy, use of Dimension Magnolia TBIL is not recommended. Blood urea nitrogen (BUN)/cr eatinine ratioOrdered By: Leigharuddygrahamsinai Neririchielizbeth on 04-21-2024 Urea nitrogen/Creatinine [Mass ratio] 9.6 mg/mg Low 10-20 [facility] CBC W/Diff, Automatedon 04-10 Absolute Lymph 2.12 X10 3/uL Normal 0.83-4.51 [facility] Comment on above: Performed By: #### L 100.0100, L500.4050 ####[facility] [address] [place], [address] Absolute Neut 2.9 X10 3/uL Normal 2.0-7.7 [facility] Comment on above: Performed By: #### L 100.0100, L500.4050 ####[facility] [address] [place], [address] Basophils/100 WBC (Bld) 1.0 % Normal 0-[address] [facility] Comment on above: Performed By: #### L 100.0100, L500.4050 ####[facility] [address] [place], [address] Eosinophils/100 WBC (Bld) 7.5 % High 0-5 [facility] Comment on above: Performed By: #### L 100.0100, L500.4050 ####[facility] [address] [place], [address] Erythrocyte distribution width (RBC) [Ratio] 14.7 % High 11.6-14.6 [facility] Comment on above: Performed By: #### L 100.0100, L500.4050 ####[facility] [address] [place], [address] Hematocrit (Bld) [Volume fraction] 42.2 % Normal 37-47 [facility] Comment on above: Performed By: #### L 100.0100, L500.4050 ####[facility] [address] [place], [address] Hemoglobin (Bld) [Mass/Vol] 13.6 g/dL Normal 12.0-15.0 [facility] Comment on above: Performed By: #### L 100.0100, L500.4050 ####[facility] [address] [place], [address] IG% 0.300 Normal 0.0-0.9 [facility] Comment on above: Result Comment: IG% - Immature Granulocytes (promyelocytes, myelocytes and metamyelocytes) > 1% indicates that a LEFT SHIFT is Present. Performed By: #### L 100.0100, L500.4050 ####[facility] [address] [place], [address] Lymphocytes/100 WBC (Bld) 33.8 % Normal 19-41 [facility] Comment on above: Performed By: #### L 100.0100, L500.4050 ####[facility] [address] [place], [address] MCH (RBC) [Entitic mass] 31.6 pg Normal 27.0-32.0 [facility] Comment on above: Performed By: #### L 100.0100, L500.4050 ####[facility] [address] [place], [address] MCHC (RBC) [Mass/Vol] 32.2 g/dL Normal 32-36 [facility] Comment on above: Performed By: #### L 100.0100, L500.4050 ####[facility] [address] [place], [address] MCV (RBC) [Entitic vol] 98.1 fL Normal 81-99 [facility] Comment on above: Performed By: #### L 100.0100, L500.4050 ####[facility] [address] [place], [address] Monocytes/100 WBC (Bld) 11.6 % High 0-[address] [facility] Comment on above: Performed By: #### L 100.0100, L500.4050 ####[facility] [address] [place], [address] Neutrophils/100 WBC (Bld) 45.8 % Low 47-70 [facility] Comment on above: Performed By: #### L 100.0100, L500.4050 ####[facility] [address] [place], [address] Nucleated RBC (Bld) [#/Vol] 0 10*3/uL Normal 0-5 [facility] Comment on above: Performed By: #### L 100.0100, L500.4050 ####[facility] [address] [place], [address] Platelet mean volume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 InformationOrdered By: Rocky Barlow on 06-19-2023 Estimated GFR (MDRD) Amer 134 mL/min >60 [facility] Comment on above: GFR Calc Estimated GFR (MDRD) Non-Af Amer 111 mL/min >60 [facility] Comment on above: Non- GFR Calc Platelet Count TNP [facility] Comment on above: Test not performedPl ease note: For this sample, a platelet estimate is provided rather than a platelet count due to platelet clumping. Other parameters associated with this sample are not affected by platelet clumping. If a more accurate platelet count is required, a redraw of the patient will be necessary.Previous reported result: 84 [id number] by: SINGH on 06/19/23:1621 Vitamin D 25-Hydroxy 50.8 ng/mL [facility] Comment on above: Vitamin D 25(OH) Sta tus Range Deficiency <20 ng/mL (50nmol/L) Insufficiency 20 - 30 ng/mL (50 - 75 nmol/L) Sufficiency 30 - 100 ng/mL (75 - 250 nmol/L) Toxicity >100 ng/mL (>250 nmol/L) VLDL Cholesterol 22 mg/dL 5-40 [facility] RBC Auto (Bld) [#/Vol]Ordere d By: Rocky Barlow on 06-19-2023 RBC (Bld) [#/Vol] 4.20 10*6/uL 4.2-5.4 [facility] RBC morphologyOrdered By: Jong Barlow on 06-19-2023 RBC morphology finding Nom (Bld) N CHROM NORMAL NORM C&C [facility] Serum or plasma calcium kamilah urement (mass/volume)Ordered By: Rocky Barlow on 06-19-2023 Calcium [Mass/Vol] 9.1 mg/dL 8.5-10.1 [facility] Serum or plasma creatinine m easurement (mass/volume)Ordered By: Rocky Barlow on 06-19-2023 Creatinine [Mass/Vol] 0.58 mg/dL 0.55-1.02 [facility] Comment on above: The validity of the calculated GFR & GFRAA in patients over 70 years has not been determined. Clinical correlation is essential. Serum or plasma thyroid stim ulating hormone (TSH) measurement (units/volume)Ordered By: Rocky Barlow on 06-19-2023 TSH Qn 2.27 uIU/mL 0.358-3.74 [facility] Serum or plasma urea nitroge n measurement (mass/volume)Ordered By: Rocky Barlow 06-19-2023 Urea nitrogen [Mass/Vol] 8 mg/dL 7-18 [facility] Thin prep Papanicolaou smear with manual screeningOrdered By: Rocky Barlow 06-19-2023 Thin prep Papanicolaou smear with manual screening 3.7 g/dL 3.2-5.0 [facility] Thin prep Papanicolaou smear with manual screening 17 U/L 15-37 [facility] Comment on above: Slight Hemolysis, Re sult may be falsely increased. Thin prep Papanicolaou smear with manual screening 4 5-15 [facility] Absolute lymphocyte countOrd ered By: Haresh Curtis on 06-13-2023 Lymphocytes Auto (Unsp spec) [#/Vol] 1.11 10*3/uL 0.83-4.51 [facility] Automated lymphocyte count a s percentage of total leukocytesOrdered By: Haresh Curtis on 06-13-2023 Lymphocytes/100 WBC Auto (Unsp spec) 12.4 % 19-41 [facility] Basophil percentageOrdered B y: Haresh Curtis on 06-13-2023 Basophils/100 WBC (Bld) 0.3 % 0-[address] [facility] Bilirubin [Mass/Vol] 0.60 mg/dL 0.20-1.00 [facility] Comment on above: For patients on eltr ombopag therapy, use of Dimension Magnolia TBIL is not recommended. Chloride [Moles/Vol] 105 mmol/L 98-107 [facility] Eosinophils/100 WBC (Bld) 2.5 % 0-5 [facility] Glucose [Mass/Vol] 109 mg/dL 74-106 [facility] Comment on above: Fasting Glucose resu lt from 100 to 125 mg/dL suggests IMPAIRED HOMEOSTASIS per A.D.A. criteria. Hemoglobin (Bld) [Mass/Vol] 14.3 g/dL 12.0-15.0 [facility] Monocytes/100 WBC (Bld) 4.6 % 0-10 [facility] Neutrophils (Bld) [#/Vol] 7.2 10*3/uL 2.0-7.7 [facility] Neutrophils/100 WBC (Bld) 80.0 % 47-70 [facility] Potassium [Moles/Vol] 3.9 mmol/L 3.5-5.1 [facility] Protein [Mass/Vol] 8.0 g/dL 6.4-8.2 [facility] Sodium [Moles/Vol] 142 mmol/L 136-145 [facility] WBC (Bld) [#/Vol] 9.0 10*3/uL 4.4-11.0 [facility] Determination of erythrocyte mean corpuscular volume (MCV)Ordered By: Haresh Curtis on 06-13-2023 MCV (RBC) [Entitic vol] 94.4 fL 81-[address] [facility] Direct bilirubinOrdered By: Haresh Curtis on 06-13-2023 Bilirubin.direct [Mass/Vol] 0.13 mg/dL 0.00-0.30 [facility] Erythrocyte distribution wid th ratioOrdered By: Haresh Curtis on 06-13-2023 Erythrocyte distribution width (RBC) [Ratio] 13.5 % 11.6-14.6 [facility] Erythrocyte distribution wid th standard deviationOrdered By: Haresh Curtis on 06-13-2023 Erythrocyte distribution width (RBC) [Entitic vol] 47.4 fL 35.1-43.9 [facility] Hematocrit Auto (Bld) [Volum e fraction]Ordered By: Haresh Curtis on 06-13-2023 Hematocrit (Bld) [Volume fraction] 43.6 % 37-47 [facility] Immature granulocytes/100 WB C Auto (Bld)Ordered By: Haresh Curtis on 06-13-2023 Immature granulocytes/100 WBC (Bld) 0.200 % 0.0-0.9 [facility] Comment on above: IG% - Immature Granu locytes (promyelocytes, myelocytes and metamyelocytes) > 1% indicates that a LEFT SHIFT is Present. Laboratory - Chemistry and C hemistry - challengeOrdered By: Haresh Curtis on 06-13-2023 ALP [Catalytic activity/Vol] 104 U/L 45-117 [facility] ALT [Catalytic activity/Vol] 14 U/L 13-56 [facility] CO2 [Moles/Vol] 32.0 mmol/L 21.0-32.0 [facility] Globulin (S) [Mass/Vol] 4.1 g/dL 2.2-4.[address] [facility] Lipase [Catalytic activity/Vol] 27 U/L 13-75 [facility] Comment on above: Please note:LIPASE r evised reference range effective 22. New Lipase methodology. Expected to produce lower values than the previous assay method. NEW Reference Range: 13 - 75 U/L Urea nitrogen/Creatinine [Mass ratio] 20.5 mg/mg 10-20 [facility] Laboratory - Hematology and Cell countsOrdered By: Haresh Curtis on 06-13-2023 MCH (RBC) [Entitic mass] 31.0 pg 27.0-32.0 [facility] MCHC (RBC) [Mass/Vol] 32.8 g/dL 32-36 [facility] Nucleated RBC/100 WBC (Bld) [Ratio] 0 % 0-5 [facility] Platelet mean volume (Bld) [Entitic vol] 10.5 fL 6.2-12.0 [facility] Platelets (Bld) [#/Vol] 321 10*3/uL 150-450 [facility] No Panel InformationOrdered By: Haresh Curtis on 06-13-2023 Estimated Creatinine Clearance Calc 85.58 ml/min [facility] Estimated GFR (MDRD) Amer 134 mL/min >60 [facility] [facility] Comment on above: GFR Calc Estimated GFR (MDRD) Non-Af Amer 111 mL/min >60 [facility] Comment on above: Non- GFR Calc RBC Auto (Bld) [#/Vol]Ordere d By: Haresh Curtis on 06-13-2023 RBC (Bld) [#/Vol] 4.62 10*6/uL 4.2-5.4 [facility] Serum or plasma calcium kamilah urement (mass/volume)Ordered By: Haresh Curtis on 06-13-2023 Calcium [Mass/Vol] 9.3 mg/dL 8.5-10.1 [facility] Serum or plasma creatinine m easurement (mass/volume)Ordered By: Haresh Curtis on 06-13-2023 Creatinine [Mass/Vol] 0.59 mg/dL 0.55-1.02 [facility] Comment on above: The validity of the calculated GFR & GFRAA in patients over 70 years has not been determined. Clinical correlation is essential. Serum or plasma urea nitroge n measurement (mass/volume)Ordered By: Haresh Curtis on 06-13-2023 Urea nitrogen [Mass/Vol] 12 mg/dL 7-18 [facility] Thin prep Papanicolaou smear with manual screeningOrdered By: Haresh Curtis on 06-13-2023 Thin prep Papanicolaou smear with manual screening 3.9 g/dL 3.2-5.0 [facility] Thin prep Papanicolaou smear with manual screening 11 U/L 15-37 [facility] Thin prep Papanicolaou smear with manual screening 5 5-15 [facility] Laboratory - Microbiology an d Antimicrobial susceptibilityOrdered By: Rocky Barlow on 02-05-2023 SARS-CoV-2 (COVID-19) RNA WILLIAM+probe Ql (Unsp spec) [facility] No Panel InformationOrdered By: Rocky Barlow on 02-05-2023 Influenza Types A,B Direct FA (DENY) [facility] RSV Ag EIAOrdered By: Rocky sloan on 02-05-2023 RSV Ag Immune stain Ql (Tiss) [facility] Laboratory - Microbiology an d Antimicrobial susceptibilityOrdered By: Rocky Barlow on 12-12-2022 SARS-CoV-2 (COVID-19) RNA WILLIAM+probe Ql (Unsp spec) [facility] SARS-CoV-2 (COVID-19) RNA WILLIAM+probe Ql (Unsp spec) [facility] No Panel InformationOrdered By: Rocky Barlow on 12-12-2022 Influenza Types A,B Direct FA (DENY) [facility] Influenza Types A,B Direct FA (DENY) [facility] RSV Ag EIAOrdered By: Rocky sloan on 12-12-2022 RSV Ag Immune stain Ql (Tiss) [facility] RSV Ag Immune stain Ql (Tiss) [facility] Absolute lymphocyte countOrd ered By: Rocky Barlow on 12-11-2022 Lymphocytes Auto (Unsp spec) [#/Vol] 2.85 10*3/uL 0.83-4.51 [facility] Basophil percentageOrdered B y: Rocky Barlow on 12-11-2022 Basophils/100 WBC (Bld) 0.6 % 0-1 [facility] Chloride [Moles/Vol] 107 mmol/L 98-107 [facility] Eosinophils/100 WBC (Bld) 4.0 % 0-5 [facility] Glucose [Mass/Vol] 106 mg/dL 74-106 [facility] Comment on above: Fasting Glucose resu lt from 100 to 125 mg/dL suggests IMPAIRED HOMEOSTASIS per A.D.A. criteria. Neutrophils (Bld) [#/Vol] 5.6 10*3/uL 2.0-7.7 [facility] Neutrophils/100 WBC (Bld) 58.3 % 47-70 [facility] Potassium [Moles/Vol] 4.0 mmol/L 3.5-5.1 [facility] Sodium [Moles/Vol] 141 mmol/L 136-145 [facility] WBC (Bld) [#/Vol] 9.5 10*3/uL 4.4-11.0 [facility] Blood erythrocytes count (nu mber/volume)Ordered By: Rocky Barlow on 12-11-2022 RBC (Bld) [#/Vol] 4.40 10*6/uL 4.2-5.4 [facility] Blood hemoglobin measurement (mass/volume)Ordered By: Rocky Barlow on 12-11-2022 Hemoglobin (Bld) [Mass/Vol] 13.8 g/dL 12.0-15.0 [facility] Blood lymphocytes/100 leukoc ytesOrdered By: Rocky Barlow on 12-11-2022 Lymphocytes/100 WBC (Bld) 29.9 % 19-41 [facility] Blood monocytes/100 leukocyt esOrdered By: Rocky Barlow on 12-11-2022 Monocytes/100 WBC (Bld) 7.0 % 0-[address] [facility] Blood platelet mean volumeOr dered By: Rocky Barlow on 12-11-2022 Platelet mean volume (Bld) [Entitic vol] 11.7 fL 6.2-12.0 [facility] Determination of erythrocyte mean corpuscular volume (MCV)Ordered By: Rocky Barlow on 12-11-2022 MCV (RBC) [Entitic vol] 95.7 fL 81-[address] [facility] Hematocrit Auto (Bld) [Volum e fraction]Ordered By: Rocky Barlow on 12-11-2022 Hematocrit (Bld) [Volume fraction] 42.1 % 37-47 [facility] Laboratory - Chemistry and C hemistry - challengeOrdered By: Rocky Barlow on 12-11-2022 CO2 [Moles/Vol] 29.0 mmol/L 21.0-32.0 [facility] Urea nitrogen/Creatinine [Mass ratio] 12.7 mg/mg 10-20 [facility] Laboratory - Hematology and Cell countsOrdered By: Rocky Barlow on 12-11-2022 Erythrocyte distribution width (RBC) [Entitic vol] 47.8 fL 35.1-43.9 [facility] Erythrocyte distribution width (RBC) [Ratio] 13.5 % 11.6-14.6 [facility] Immature granulocytes/100 WBC (Bld) 0.200 % 0.0-0.9 [facility] Comment on above: IG% - Immature Granu locytes (promyelocytes, myelocytes and metamyelocytes) > 1% indicates that a LEFT SHIFT is Present. MCH (RBC) [Entitic mass] 31.4 pg 27.0-32.0 [facility] Nucleated RBC/100 WBC (Bld) [Ratio] 0 % 0-5 [facility] MCHC Auto (RBC) [Mass/Vol]Or dered By: Rocky Barlow on 12-11-2022 MCHC (RBC) [Mass/Vol] 32.8 g/dL 32-36 [facility] No Panel InformationOrdered By: Rocky Barlow on 12-11-2022 Estimated GFR (MDRD) Amer 173 mL/min >60 [facility] Comment on above: GFR Calc Estimated GFR (MDRD) Non-Af Amer 143 mL/min >60 [facility] Comment on above: Non- GFR Calc Platelets bldOrdered By: Rocky Barlow on 12-11-2022 Platelets (Bld) [#/Vol] 213 10*3/uL 150-450 [facility] Serum or plasma calcium kamilah urement (mass/volume)Ordered By: Rocky Barlow on 12-11-2022 Calcium [Mass/Vol] 9.2 mg/dL 8.5-10.1 [facility] Serum or plasma creatinine m easurement (mass/volume)Ordered By: Rocky Barlow on 12-11-2022 Creatinine [Mass/Vol] 0.47 mg/dL 0.55-1.02 [facility] Comment on above: The validity of the calculated GFR & GFRAA in patients over 70 years has not been determined. Clinical correlation is essential. Serum or plasma urea nitroge n measurement (mass/volume)Ordered By: Rocky Barlow on 12-11-2022 Urea nitrogen [Mass/Vol] 6 mg/dL 7-18 [facility] Thin prep Papanicolaou smear with manual screeningOrdered By: Rocky Barlow on 12-11-2022 Thin prep Papanicolaou smear with manual screening 5 5-15 [facility] Absolute lymphocyte countOrd ered By: Rocky Barlow on 12-03-2022 Lymphocytes Auto (Unsp spec) [#/Vol] 2.53 10*3/uL 0.83-4.51 [facility] Basophil percentageOrdered B y: Rocky Barlow on 12-03-2022 Basophils/100 WBC (Bld) 1.4 % 0-[address] [facility] Bilirubin [Mass/Vol] 0.30 mg/dL 0.20-1.00 [facility] Comment on above: For patients on eltr ombopag therapy, use of Dimension [place] TBIL is not recommended. Chloride [Moles/Vol] 108 mmol/L 98-107 [facility] Cholesterol [Mass/Vol] 209 mg/dL <200 [facility] Comment on above: <200 mg/dL Desirable 200-240 mg/dL Borderline >240 mg/dL High Risk Eosinophils/100 WBC (Bld) 6.0 % 0-5 [facility] Glucose [Mass/Vol] 99 mg/dL 74-106 [facility] Neutrophils (Bld) [#/Vol] 2.8 10*3/uL 2.0-7.7 [facility] Neutrophils/100 WBC (Bld) 44.4 % 47-70 [facility] Potassium [Moles/Vol] 3.7 mmol/L 3.5-5.1 [facility] Protein [Mass/Vol] 7.3 g/dL 6.4-8.2 [facility] Sodium [Moles/Vol] 142 mmol/L 136-145 [facility] Triglyceride [Mass/Vol] 146 mg/dL <[address] [facility] Comment on above: The drugs N-Acetylcy steine and Metamizole may falsely depress this assay.Serum Triglycerides Reference Interval Normal <150 mg/dL Borderline high 150 - 199 mg/dL High 200 - 499 mg/dL Very High > or = 500 mg/dL WBC (Bld) [#/Vol] 6.3 10*3/uL 4.4-11.0 [facility] Blood erythrocytes count (nu mber/volume)Ordered By: Rocky Barlow on 12-03-2022 RBC (Bld) [#/Vol] 4.59 10*6/uL 4.2-5.4 [facility] Blood hemoglobin measurement (mass/volume)Ordered By: Rocky Barlow on 12-03-2022 Hemoglobin (Bld) [Mass/Vol] 14.1 g/dL 12.0-15.0 [facility] Blood lymphocytes/100 leukoc ytesOrdered By: [facility] Lymphocytes/100 WBC (Bld) 40.1 % 19-41 [facility] Blood monocytes/100 leukocyt esOrdered By: [facility] on 12-03-2022 Monocytes/100 WBC (Bld) 7.9 % 0-[address] [facility] Blood platelet mean volumeOr dered By: Rocky Cain on 12-03-2022 Platelet mean volume (Bld) [Entitic vol] 11.8 fL 6.2-12.0 [facility] Determination of erythrocyte mean corpuscular volume (MCV)Ordered By: Rocky Barlow on 12-03-2022 MCV (RBC) [Entitic vol] 96.9 fL 81-[address] [facility] Hematocrit Auto (Bld) [Volum e fraction][facility]: [facility]22 Hematocrit (Bld) [Volume fraction] 44.5 % 37-47 [facility] Laboratory - Chemistry and C hemistry - challengeOrdered By: Rocky Barlow on 12-03-2022 ALP [Catalytic activity/Vol] 115 U/L 45-117 [facility] ALT [Catalytic activity/Vol] 18 U/L 13-56 [facility] CO2 [Moles/Vol] 29.0 mmol/L 21.0-32.0 [facility] Globulin (S) [Mass/Vol] 3.9 g/dL 2.2-4.2 [facility] Urea nitrogen/Creatinine [Mass ratio] 10.5 mg/mg 10-20 [facility] Laboratory - Hematology and Cell countsOrdered By: Rocky Cain on 12-03-2022 Erythrocyte distribution width (RBC) [Entitic vol] 47.1 fL 35.1-43.9 [facility] Erythrocyte distribution width (RBC) [Ratio] 13.2 % 11.6-14.6 [facility] Immature granulocytes/100 WBC (Bld) 0.200 % 0.0-0.9 [facility] Comment on above: IG% - Immature Granu locytes (promyelocytes, myelocytes and metamyelocytes) > 1% indicates that a LEFT SHIFT is Present. MCH (RBC) [Entitic mass] 30.7 pg 27.0-32.0 [facility] Nucleated RBC/100 WBC (Bld) [Ratio] 0 % 0-5 [facility] MCHC Auto (RBC) [Mass/Vol]Or dered By: Rocky Barlow on 12-03-2022 MCHC (RBC) [Mass/Vol] 31.7 g/dL 32-36 [facility] No Panel InformationOrdered By: Rocky Barlow on 12-03-2022 Estimated GFR (MDRD) Amer 138 mL/min >60 [facility] Comment on above: GFR Calc Estimated GFR (MDRD) Non-Af Amer 114 mL/min >60 [facility] Comment on above: Non- GFR Calc Thyroid Stimulating Hormone (TSH) 1.37 uIU/mL 0.358-3.74 [facility] Platelets bldOrdered By: Rocky Barlow on 12-03-2022 Platelets (Bld) [#/Vol] 238 10*3/uL 150-450 [facility] Serum or plasma albumin kamilah urement (mass/volume)Ordered By: Rocky Barlow on 12-03-2022 Albumin [Mass/Vol] 3.4 g/dL 3.2-5.0 [facility] Serum or plasma albumin/glob ulin mass ratioOrdered By: Rocky Barlow on 12-03-2022 Albumin/Globulin [Mass ratio] 0.9 {ratio} 0.9-2.4 [facility] Serum or plasma calcium kamilah urement (mass/volume)Ordered By: Rocky Barlow on 12-03-2022 Calcium [Mass/Vol] 8.7 mg/dL 8.5-10.1 [facility] Serum or plasma cholesterol in HDL measurement (mass/volume)Ordered By: Rocky Barlow on 12-03-2022 Cholesterol in HDL [Mass/Vol] 56 mg/dL >40 [facility] Comment on above: The drugs N-Acetylcy steine and Metamizole may falsely depress this assay. Reference Range HDL <40 mg/dL Low HDL Cholesterol HDL >or= 60 mg/dL High HDL Cholesterol Serum or plasma cholesterol in VLDL measurement (mass/volume)Ordered By: Rocky Barlow on 12-03-2022 Cholesterol in VLDL [Mass/Vol] 29 mg/dL 5-40 [facility] Serum or plasma creatinine m easurement (mass/volume)Ordered By: Rocky Barlow on 12-03-2022 Creatinine [Mass/Vol] 0.57 mg/dL 0.55-1.02 [facility] Comment on above: The validity of the calculated GFR & GFRAA in patients over 70 years has not been determined. Clinical correlation is essential. Serum or plasma low density lipoprotein (LDL) cholesterol measurement (mass/volume)Ordered By: Rocky Barlow on 12-03-2022 Cholesterol in LDL [Mass/Vol] 124 mg/dL 0-130 [facility] Serum or plasma urea nitroge n measurement (mass/volume)Ordered By: Rocky Barlow on 12-03-2022 Urea nitrogen [Mass/Vol] 6 mg/dL 7-18 [facility] Thin prep Papanicolaou smear with manual screeningOrdered By: Rocky Barlow on 12-03-2022 Thin prep Papanicolaou smear with manual screening 11 U/L 15-37 [facility] Thin prep Papanicolaou smear with manual screening 5 5-15 [facility] Absolute lymphocyte countOrd ered By: Raul Viveros on 08-15-2022 Lymphocytes Auto (Unsp spec) [#/Vol] 2.64 10*3/uL 0.83-4.51 [facility] Basophil percentageOrdered B y: Raul Viveros on 08-15-2022 Basophil percentage 0 SEEN /hpf 0-5 [facility] Basophils/100 WBC (Bld) 0.5 % 0-1 [facility] Chloride [Moles/Vol] 109 mmol/L 98-107 [facility] Eosinophils/100 WBC (Bld) 3.2 % 0-5 [facility] Glucose [Mass/Vol] 118 mg/dL 74-106 [facility] Comment on above: Fasting Glucose resu lt from 100 to 125 mg/dL suggests IMPAIRED HOMEOSTASIS per A.D.A. criteria. Lactate [Moles/Vol] 4.6 mmol/L 0.4-2.0 [facility] Comment on above: Critical Result(s) C alled at: 17:45:37 08/15/2022 by: Halie Espinosa. Results read back by same. Neutrophils (Bld) [#/Vol] 5.7 10*3/uL 2.0-7.7 [facility] Neutrophils/100 WBC (Bld) 59.8 % 47-70 [facility] Potassium [Moles/Vol] 3.2 mmol/L 3.5-5.1 [facility] Sodium [Moles/Vol] 142 mmol/L 136-145 [facility] WBC (Bld) [#/Vol] 9.6 10*3/uL 4.4-11.0 [facility] Bilirubin Test strip Ql (U)O rdered By: Raul Viveros on 08-15-2022 Bilirubin Ql (U) Negative Negative [facility] Blood erythrocytes count (nu mber/volume)Ordered By: Raul Viveros on 08-15-2022 RBC (Bld) [#/Vol] 4.49 10*6/uL 4.2-5.4 [facility] Blood hemoglobin measurement (mass/volume)Ordered By: Raul Viveros on 08-15-2022 Hemoglobin (Bld) [Mass/Vol] 14.3 g/dL 12.0-15.0 [facility] Blood lymphocytes/100 leukoc ytesOrdered By: Raul Viveros on 08-15-2022 Lymphocytes/100 WBC (Bld) 27.6 % 19-41 [facility] Blood monocytes/100 leukocyt esOrdered By: Raul Viveros on 08-15-2022 Monocytes/100 WBC (Bld) 8.7 % 0-[address] [facility] Blood platelet mean volumeOr dered By: Raul Viveros on 08-15-2022 Platelet mean volume (Bld) [Entitic vol] 11.1 fL 6.2-12.0 [facility] Determination of erythrocyte mean corpuscular volume (MCV)Ordered By: Raul Viveros on 08-15-2022 MCV (RBC) [Entitic vol] 97.6 fL 81-[address] [facility] Hematocrit Auto (Bld) [Volum e fraction]Ordered By: Raul Viveros on 08-15-2022 Hematocrit (Bld) [Volume fraction] 43.8 % 37-47 [facility] Influenza virus A and B and SARS-CoV-2 (COVID-19) Ag panel - Upper respiratory specimOrdered By: Raul Viveros on 08-15-2022 SARS-CoV-2 (COVID-19) RNA WILLIAM+probe Ql (Resp) [facility] Ketones Test strip Ql (U)Ord ered By: Raul Viveros on 08-15-2022 Ketones Ql (U) 5 mg/dl Negative [facility] Laboratory - Chemistry and C hemistry - challengeOrdered By: [facility] on 08-15-2022 CO2 [Moles/Vol] 28.0 mmol/L 21.0-32.0 [facility] Urea nitrogen/Creatinine [Mass ratio] 13.5 mg/mg 10-20 [facility] Laboratory - Hematology and Cell countsOrdered By: Raul Viveros on 08-15-2022 Erythrocyte distribution width (RBC) [Entitic vol] 49.0 fL 35.1-43.9 [facility] Erythrocyte distribution width (RBC) [Ratio] 13.5 % 11.6-14.6 [facility] Immature granulocytes/100 WBC (Bld) 0.200 % 0.0-0.9 [facility] Comment on above: IG% - Immature Granu locytes (promyelocytes, myelocytes and metamyelocytes) > 1% indicates that a LEFT SHIFT is Present. MCH (RBC) [Entitic mass] 31.8 pg 27.0-32.0 [facility] Nucleated RBC/100 WBC (Bld) [Ratio] 0 % 0-5 [facility] Laboratory - Microbiology an d Antimicrobial susceptibilityOrdered By: Raul Viveros on 08-15-2022 Bacteria identified Cx Nom (Bld) No growth in 5 days. [facility] MCHC Auto (RBC) [Mass/Vol]Or dered By: Raul Viveros on 08-15-2022 MCHC (RBC) [Mass/Vol] 32.6 g/dL 32-36 [facility] Mucus LM Ql (Urine sed)Order ed By: Raul Gradyaidan on 08-15-2022 Mucus Ql (Urine sed) 0 SEEN /hpf [facility] Nitrite Test strip Ql (U)Ord ered By: Rem Ungaidan on 08-15-2022 Nitrite Ql (U) Negative Negative [facility] No Panel InformationOrdered By: Remus Gradyaidan on 08-15-2022 Estimated Creatinine Clearance Calc 71.92 ml/min [facility] Estimated GFR (MDRD) Amer 132 mL/min >60 [facility] Comment on above: GFR Calc Estimated GFR (MDRD) Non-Af Amer 109 mL/min >60 [facility] Comment on above: Non- GFR Calc Platelets bldOrdered By: Danette ruano Jackeline on 08-15-2022 Platelets (Bld) [#/Vol] 284 10*3/uL 150-450 [facility] Protein Test strip Ql (U)Ord ered By: Rem Ungaidan on 08-15-2022 Protein Ql (U) Negative Negative [facility] Serum or plasma calcium kamilah urement (mass/volume)Ordered By: Remus Gradyaidan on 08-15-2022 Calcium [Mass/Vol] 9.0 mg/dL 8.5-10.1 [facility] Serum or plasma creatinine m easurement (mass/volume)Ordered By: Raul Gradyaidan on 08-15-2022 Creatinine [Mass/Vol] 0.59 mg/dL 0.55-1.02 [facility] Comment on above: The validity of the calculated GFR & GFRAA in patients over 70 years has not been determined. Clinical correlation is essential. Serum or plasma urea nitroge n measurement (mass/volume)Ordered By: Raul Gradyaidan on 08-15-2022 Urea nitrogen [Mass/Vol] 8 mg/dL 7-18 [facility] Squamous epithelial cells de tection in urine sediment by light microscopyOrdered By: Danette Ysabelaidan on 08-15-2022 Epithelial cells.squamous LM Ql (Urine sed) 0 SEEN /hpf 5-10 [facility] Thin prep Papanicolaou smear with manual screeningOrdered By: Remus Viveros on 08-15-2022 Thin prep Papanicolaou smear with manual screening 5 5-15 [facility] Urine blood detectionOrdered By: Raul Viveros on 08-15-2022 RBC Ql (U) Negative Negative [facility] RBC Ql (U) 0 SEEN /hpf 0-5 [facility] Urine clarityOrdered By: Danette us Jackeline on 08-15-2022 Clarity (U) Clear Clear [facility] Urine color determinationOrd ered By: Raul Viveros on 08-15-2022 Color (U) Yellow Yellow [facility] Urine glucose detectionOrder ed By: Raul Viveros on 08-15-2022 Glucose Ql (U) Normal mg/dl Normal [facility] Urine leukocyte esterase det ection by dipstickOrdered By: Raul Viveros on 08-15-2022 Leukocyte esterase Test strip Ql (U) Negative Negative [facility] Urine pHOrdered By: Raul Samuel gur on 08-15-2022 pH (U) 5.0 [pH] 5.0 - 8.0 [facility] Urine sediment bacteria coun t by microscopy (number/high power field)Ordered By: Raul Viveros on 08-15-2022 Bacteria LM.HPF (Urine sed) [#/Area] 0 /[HPF] None Seen [facility] Urine specific gravity measu rementOrdered By: Raul Viveros on 08-15-2022 Specific gravity (U) [Rel density] 1.015 1.002-1.030 [facility] Urobilinogen Auto test strip Ql (U)Ordered By: Raul Viveros on 08-15-2022 Urobilinogen Ql (U) Normal mg/dl Normal [facility] Absolute lymphocyte countOrd ered By: Dr. Barlow on 05-30-2022 Lymphocytes Auto (Unsp spec) [#/Vol] 3.00 10*3/uL 0.83-4.51 [facility] Basophil percentageOrdered B y: Dr. Barlow on 05-30-2022 Basophils/100 WBC (Bld) 0.8 % 0-[address] [facility] Bilirubin [Mass/Vol] 0.40 mg/dL 0.20-1.00 [facility] Comment on above: For patients on eltr ombopag therapy, use of Dimension [place] TBIL is not recommended. Chloride [Moles/Vol] 105 mmol/L 98-107 [facility] Cholesterol [Mass/Vol] 219 mg/dL <200 [facility] Comment on above: <200 mg/dL Desirable 200-240 mg/dL Borderline >240 mg/dL High Risk Eosinophils/100 WBC (Bld) 6.3 % 0-5 [facility] Glucose [Mass/Vol] 87 mg/dL 74-106 [facility] Neutrophils (Bld) [#/Vol] 3.6 10*3/uL 2.0-7.7 [facility] Neutrophils/100 WBC (Bld) 47.3 % 47-70 [facility] Potassium [Moles/Vol] 3.8 mmol/L 3.5-5.1 [facility] Comment on above: Moderate Hemolysis, Result may be falsely increased. Protein [Mass/Vol] 7.5 g/dL 6.4-8.2 [facility] Sodium [Moles/Vol] 140 mmol/L 136-145 [facility] Triglyceride [Mass/Vol] 66 mg/dL <199 [facility] Comment on above: The drugs N-Acetylcy steine and Metamizole may falsely depress this assay.Serum Triglycerides Reference Interval Normal <150 mg/dL Borderline high 150 - 199 mg/dL High 200 - 499 mg/dL Very High > or = 500 mg/dL WBC (Bld) [#/Vol] 7.6 10*3/uL 4.4-11.0 [facility] Blood erythrocytes count (nu mber/volume)Ordered By: Dr. Barlow on 05-30-2022 RBC (Bld) [#/Vol] 4.52 10*6/uL 4.2-5.4 [facility] Blood hemoglobin measurement (mass/volume)Ordered By: Dr. Barlow on 05-30-2022 Hemoglobin (Bld) [Mass/Vol] 14.1 g/dL 12.0-15.0 [facility] Blood lymphocytes/100 leukoc ytesOrdered By: Dr. Barlow on 05-30-2022 Lymphocytes/100 WBC (Bld) 39.3 % 19-41 [facility] Blood monocytes/100 leukocyt esOrdered By: Dr. Barlow on 05-30-2022 Monocytes/100 WBC (Bld) 6.2 % 0-[address] [facility] Blood platelet mean volumeOr dered By: Dr. Barlow on 05-30-2022 Platelet mean volume (Bld) [Entitic vol] 11.0 fL 6.2-12.0 [facility] Determination of erythrocyte mean corpuscular volume (MCV)Ordered By: Dr. Barlow on 05-30-2022 MCV (RBC) [Entitic vol] 96.0 fL 81-[address] [facility] Hematocrit Auto (Bld) [Volum e fraction]Ordered By: Dr. Barlow on 05-30-2022 Hematocrit (Bld) [Volume fraction] 43.4 % 37-47 [facility] Laboratory - Chemistry and C hemistry - challengeOrdered By: Dr. Barlow on 05-30-2022 ALP [Catalytic activity/Vol] 100 U/L 45-117 [facility] ALT [Catalytic activity/Vol] 20 U/L 13-56 [facility] CO2 [Moles/Vol] 26.0 mmol/L 21.0-32.0 [facility] Globulin (S) [Mass/Vol] 3.8 g/dL 2.2-4.2 [facility] Urea nitrogen/Creatinine [Mass ratio] 12.8 mg/mg 10-20 [facility] Laboratory - Hematology and Cell countsOrdered By: Dr. Barlow on 05-30-2022 Erythrocyte distribution width (RBC) [Entitic vol] 49.1 fL 35.1-43.9 [facility] Erythrocyte distribution width (RBC) [Ratio] 13.8 % 11.6-14.6 [facility] Immature granulocytes/100 WBC (Bld) 0.100 % 0.0-0.9 [facility] Comment on above: IG% - Immature Granu locytes (promyelocytes, myelocytes and metamyelocytes) > 1% indicates that a LEFT SHIFT is Present. MCH (RBC) [Entitic mass] 31.2 pg 27.0-32.0 [facility] Nucleated RBC/100 WBC (Bld) [Ratio] 0 % 0-5 [facility] MCHC Auto (RBC) [Mass/Vol]Or dered By: Dr. Barlow on 05-30-2022 MCHC (RBC) [Mass/Vol] 32.5 g/dL 32-36 [facility] No Panel InformationOrdered By: Dr. Barlow on 05-30-2022 Estimated GFR (MDRD) Amer 145 mL/min >60 [facility] Comment on above: GFR Calc Estimated GFR (MDRD) Non-Af Amer 120 mL/min >60 [facility] Comment on above: Non- GFR Calc Thyroid Stimulating Hormone (TSH) 1.39 uIU/mL 0.358-3.74 [facility] Vitamin D 25-Hydroxy 48.5 ng/mL [facility] Comment on above: Vitamin D 25(OH) Sta tus Range Deficiency <20 ng/mL (50nmol/L) Insufficiency 20 - 30 ng/mL (50 - 75 nmol/L) Sufficiency 30 - 100 ng/mL (75 - 250 nmol/L) Toxicity >100 ng/mL (>250 nmol/L) Platelets bldOrdered By: Dr. Barlow on 05-30-2022 Platelets (Bld) [#/Vol] 311 10*3/uL 150-450 [facility] Serum or plasma albumin kamilah urement (mass/volume)Ordered By: Dr. Barlow on 05-30-2022 Albumin [Mass/Vol] 3.7 g/dL 3.2-5.0 [facility] Serum or plasma albumin/glob ulin mass ratioOrdered By: Dr. Barlow on 05-30-2022 Albumin/Globulin [Mass ratio] 1.0 {ratio} 0.9-2.4 [facility] Serum or plasma calcium kamilah urement (mass/volume)Ordered By: Dr. Barlow on 05-30-2022 Calcium [Mass/Vol] 9.2 mg/dL 8.5-10.1 [facility] Serum or plasma cholesterol in HDL measurement (mass/volume)Ordered By: Dr. Barlow on 05-30-2022 Cholesterol in HDL [Mass/Vol] 73 mg/dL >40 [facility] Comment on above: The drugs N-Acetylcy steine and Metamizole may falsely depress this assay. Reference Range HDL <40 mg/dL Low HDL Cholesterol HDL >or= 60 mg/dL High HDL Cholesterol Serum or plasma cholesterol in VLDL measurement (mass/volume)Ordered By: Dr. Barlow on 05-30-2022 Cholesterol in VLDL [Mass/Vol] 13 mg/dL 5-40 [facility] Serum or plasma creatinine m easurement (mass/volume)Ordered By: Dr. Barlow on 05-30-2022 Creatinine [Mass/Vol] 0.55 mg/dL 0.55-1.02 [facility] Comment on above: The validity of the calculated GFR & GFRAA in patients over 70 years has not been determined. Clinical correlation is essential. Serum or plasma low density lipoprotein (LDL) cholesterol measurement (mass/volume)Ordered By: Dr. Barlow on 05-30-2022 Cholesterol in LDL [Mass/Vol] 133 mg/dL 0-130 [facility] Serum or plasma urea nitroge n measurement (mass/volume)Ordered By: Dr. Barlow on 05-30-2022 Urea nitrogen [Mass/Vol] 7 mg/dL 7-18 [facility] Thin prep Papanicolaou smear with manual screeningOrdered By: Dr. Barlow on 05-30-2022 Thin prep Papanicolaou smear with manual screening 20 U/L 15-37 [facility] Comment on above: Moderate Hemolysis, Result may be falsely increased. Thin prep Papanicolaou smear with manual screening 9 5-15 [facility] Laboratory - Microbiology an d Antimicrobial susceptibilityOrdered By: Dr. Barlow on 03-29-2022 SARS-CoV-2 (COVID-19) RNA WILLIAM+probe Ql (Unsp spec) Not detected Not Detect [facility] Comment on above: Normal Reference Ran ge: [...] 03-29-2022 Influenza Types A,B Direct FA (DENY) [facility] RSV Ag EIAOrdered By: Dr. Deisi sloan on 03-29-2022 RSV Ag Immune stain Ql (Tiss) [facility] Absolute lymphocyte countOrd ered By: Dr. Palomino on 03-21-2022 Lymphocytes Auto (Unsp spec) [#/Vol] 2.24 10*3/uL 0.83-4.51 [facility] Basophil percentageOrdered B y: Dr. Palomino on 03-21-2022 Basophils/100 WBC (Bld) 0.5 % 0-[address] [facility] Bilirubin [Mass/Vol] 0.30 mg/dL 0.20-1.00 [facility] Comment on above: For patients on eltr ombopag therapy, use of Dimension [place] TBIL is not recommended. Chloride [Moles/Vol] 107 mmol/L 98-107 [facility] Eosinophils/100 WBC (Bld) 2.5 % 0-5 [facility] Glucose [Mass/Vol] 118 mg/dL 74-106 [facility] Comment on above: Fasting Glucose resu lt from 100 to 125 mg/dL suggests IMPAIRED HOMEOSTASIS per A.D.A. criteria. Neutrophils (Bld) [#/Vol] 8.8 10*3/uL 2.0-7.7 [facility] Neutrophils/100 WBC (Bld) 70.5 % 47-70 [facility] Potassium [Moles/Vol] 3.7 mmol/L 3.5-5.1 [facility] Protein [Mass/Vol] 7.9 g/dL 6.4-8.2 [facility] Sodium [Moles/Vol] 142 mmol/L 136-145 [facility] WBC (Bld) [#/Vol] 12.5 10*3/uL 4.4-11.0 [facility] Blood erythrocytes count (nu mber/volume)Ordered By: Dr. Palomino on 03-21-2022 RBC (Bld) [#/Vol] 4.52 10*6/uL 4.2-5.4 [facility] Blood hemoglobin measurement (mass/volume)Ordered By: Dr. Palomino on 03-21-2022 Hemoglobin (Bld) [Mass/Vol] 14.1 g/dL 12.0-15.0 [facility] Blood lymphocytes/100 leukoc ytesOrdered By: Dr. Palomino on 03-21-2022 Lymphocytes/100 WBC (Bld) 17.9 % 19-41 [facility] Blood monocytes/100 leukocyt esOrdered By: Dr. Palomino on 03-21-2022 Monocytes/100 WBC (Bld) 8.3 % 0-[address] [facility] Blood platelet mean volumeOr dered By: Dr. Palomino on 03-21-2022 Platelet mean volume (Bld) [Entitic vol] 10.6 fL 6.2-12.0 [facility] Determination of erythrocyte mean corpuscular volume (MCV)Ordered By: Dr. Palomino on 03-21-2022 MCV (RBC) [Entitic vol] 96.7 fL 81-[address] [facility] Hematocrit Auto (Bld) [Volum e fraction]Ordered By: Dr. Palomino on 03-21-2022 Hematocrit (Bld) [Volume fraction] 43.7 % 37-47 [facility] Influenza virus A and B and SARS-CoV-2 (COVID-19) Ag panel - Upper respiratory specimOrdered By: Dr. Palomino on 03-21-2022 SARS-CoV-2 (COVID-19) RNA WILLIAM+probe Ql (Resp) [facility] Laboratory - Chemistry and C hemistry - challengeOrdered By: Dr. Palomino on 03-21-2022 ALP [Catalytic activity/Vol] 109 U/L 45-117 [facility] ALT [Catalytic activity/Vol] 15 U/L 13-56 [facility] CO2 [Moles/Vol] 31.0 mmol/L 21.0-32.0 [facility] Globulin (S) [Mass/Vol] 4.2 g/dL 2.2-4.[address] [facility] Urea nitrogen/Creatinine [Mass ratio] 14.4 mg/mg 10-20 [facility] Laboratory - Hematology and Cell countsOrdered By: Dr. Palomino on 03-21-2022 Erythrocyte distribution width (RBC) [Entitic vol] 49.3 fL 35.1-43.9 [facility] Erythrocyte distribution width (RBC) [Ratio] 13.7 % 11.6-14.6 [facility] Immature granulocytes/100 WBC (Bld) 0.300 % 0.0-0.9 [facility] Comment on above: IG% - Immature Granu locytes (promyelocytes, myelocytes and metamyelocytes) > 1% indicates that a LEFT SHIFT is Present. MCH (RBC) [Entitic mass] 31.2 pg 27.0-32.0 [facility] Nucleated RBC/100 WBC (Bld) [Ratio] 0 % 0-5 [facility] MCHC Auto (RBC) [Mass/Vol]Or dered By: Dr. Palomino on 03-21-2022 MCHC (RBC) [Mass/Vol] 32.3 g/dL 32-36 [facility] No Panel InformationOrdered By: Dr. Palomino on 03-21-2022 Estimated Creatinine Clearance Calc 82.08 ml/min [facility] Estimated GFR (MDRD) Amer 143 mL/min >60 [facility] Comment on above: GFR Calc Estimated GFR (MDRD) Non-Af Amer 119 mL/min >60 [facility] Comment on above: Non- GFR Calc Platelets bldOrdered By: Dr. Palomino on 03-21-2022 Platelets (Bld) [#/Vol] 278 10*3/uL 150-450 [facility] Serum or plasma albumin kamilah urement (mass/volume)Ordered By: Dr. Palomino on 03-21-2022 Albumin [Mass/Vol] 3.7 g/dL 3.2-5.0 [facility] Serum or plasma albumin/glob ulin mass ratioOrdered By: Dr. Palomino on 03-21-2022 Albumin/Globulin [Mass ratio] 0.9 {ratio} 0.9-2.4 [facility] Serum or plasma calcium kamilah urement (mass/volume)Ordered By: Dr. Palomino on 03-21-2022 Calcium [Mass/Vol] 9.4 mg/dL 8.5-10.1 [facility] Serum or plasma creatinine m easurement (mass/volume)Ordered By: Dr. Palomino on 03-21-2022 Creatinine [Mass/Vol] 0.55 mg/dL 0.55-1.02 [facility] Comment on above: The validity of the calculated GFR & GFRAA in patients over 70 years has not been determined. Clinical correlation is essential. Serum or plasma urea nitroge n measurement (mass/volume)Ordered By: Dr. Palomino on 03-21-2022 Urea nitrogen [Mass/Vol] 8 mg/dL 7-18 [facility] Thin prep Papanicolaou smear with manual screeningOrdered By: Dr. Palomino on 03-21-2022 Thin prep Papanicolaou smear with manual screening 10 U/L 15-37 [facility] Thin prep Papanicolaou smear with manual screening 4 5-15 [facility] Laboratory - Microbiology an d Antimicrobial susceptibilityon 01-21-2022 SARS-CoV-2 (COVID-19) RNA WILLIAM+probe Ql (Unsp spec) Not detected [facility] No Panel Informationon 01-21 Influenza Types A,B Rapid (Clinic) Not detected [facility] Absolute lymphocyte countOrd ered By: Dr. Ann on 01-03-2022 Lymphocytes Auto (Unsp spec) [#/Vol] 1.37 10*3/uL 0.83-4.51 [facility] Basophil percentageOrdered B y: Dr. Ann on 01-03-2022 Basophils/100 WBC (Bld) 0.2 % 0-1 [facility] Chloride [Moles/Vol] 108 mmol/L 98-107 [facility] Eosinophils/100 WBC (Bld) 0.0 % 0-5 [facility] Glucose [Mass/Vol] 124 mg/dL 74-106 [facility] Comment on above: Fasting Glucose resu lt from 100 to 125 mg/dL suggests IMPAIRED HOMEOSTASIS per A.D.A. criteria. Neutrophils (Bld) [#/Vol] 7.9 10*3/uL 2.0-7.7 [facility] Neutrophils/100 WBC (Bld) 79.9 % 47-70 [facility] Potassium [Moles/Vol] 3.8 mmol/L 3.5-5.1 [facility] Sodium [Moles/Vol] 143 mmol/L 136-145 [facility] WBC (Bld) [#/Vol] 9.9 10*3/uL 4.4-11.0 [facility] Blood erythrocytes count (nu mber/volume)Ordered By: Dr. Ann on 01-03-2022 RBC (Bld) [#/Vol] 4.49 10*6/uL 4.2-5.4 [facility] Blood hemoglobin measurement (mass/volume)Ordered By: Dr. Ann on 01-03-2022 Hemoglobin (Bld) [Mass/Vol] 14.5 g/dL 12.0-15.0 [facility] Blood lymphocytes/100 leukoc ytesOrdered By: Dr. Ann on 01-03-2022 Lymphocytes/100 WBC (Bld) 13.8 % 19-41 [facility] Blood monocytes/100 leukocyt esOrdered By: Dr. Ann on 01-03-2022 Monocytes/100 WBC (Bld) 5.5 % 0-[address] [facility] Blood platelet mean volumeOr dered By: Dr. Ann on 01-03-2022 Platelet mean volume (Bld) [Entitic vol] 10.9 fL 6.2-12.0 [facility] Determination of erythrocyte mean corpuscular volume (MCV)Ordered By: Dr. Ann on 01-03-2022 MCV (RBC) [Entitic vol] 96.0 fL 81-[address] [facility] Hematocrit Auto (Bld) [Volum e fraction]Ordered By: Dr. Ann on 01-03-2022 Hematocrit (Bld) [Volume fraction] 43.1 % 37-47 [facility] Laboratory - Chemistry and C hemistry - challengeOrdered By: Dr. Ann on 01-03-2022 CO2 [Moles/Vol] 28.0 mmol/L 21.0-32.0 [facility] Urea nitrogen/Creatinine [Mass ratio] 27.4 mg/mg 10-20 [facility] Laboratory - Hematology and Cell countsOrdered By: Dr. Ann on 01-03-2022 Erythrocyte distribution width (RBC) [Entitic vol] 51.5 fL 35.1-43.9 [facility] Erythrocyte distribution width (RBC) [Ratio] 14.5 % 11.6-14.6 [facility] Immature granulocytes/100 WBC (Bld) 0.600 % 0.0-0.9 [facility] Comment on above: IG% - Immature Granu locytes (promyelocytes, myelocytes and metamyelocytes) > 1% indicates that a LEFT SHIFT is Present. MCH (RBC) [Entitic mass] 32.3 pg 27.0-32.0 [facility] Nucleated RBC/100 WBC (Bld) [Ratio] 0 % 0-5 [facility] MCHC Auto (RBC) [Mass/Vol]Or dered By: Dr. Ann on 01-03-2022 MCHC (RBC) [Mass/Vol] 33.6 g/dL 32-36 [facility] No Panel InformationOrdered By: Dr. Ann on 01-03-2022 Estimated Creatinine Clearance Calc 78.13 ml/min [facility] Estimated GFR (MDRD) Amer 146 mL/min >60 [facility] Comment on above: GFR Calc Estimated GFR (MDRD) Non-Af Amer 120 mL/min >60 [facility] Comment on above: Non- GFR Calc Platelets bldOrdered By: Dr. Ann on 01-03-2022 Platelets (Bld) [#/Vol] 277 10*3/uL 150-450 [facility] Serum or plasma calcium kamilah urement (mass/volume)Ordered By: Dr. Ann on 01-03-2022 Calcium [Mass/Vol] 9.6 mg/dL 8.5-10.1 [facility] Serum or plasma creatinine m easurement (mass/volume)Ordered By: Dr. Ann on 01-03-2022 Creatinine [Mass/Vol] 0.55 mg/dL 0.55-1.02 [facility] Comment on above: The validity of the calculated GFR & GFRAA in patients over 70 years has not been determined. Clinical correlation is essential. Serum or plasma urea nitroge n measurement (mass/volume)Ordered By: Dr. Ann on 01-03-2022 Urea nitrogen [Mass/Vol] 15 mg/dL 7-18 [facility] Thin prep Papanicolaou smear with manual screeningOrdered By: Dr. Ann on 01-03-2022 Thin prep Papanicolaou smear with manual screening 7 5-15 [facility] Basophil percentageOrdered B y: Dr. Fortune on 01-02-2022 Lactate [Moles/Vol] 1.8 mmol/L 0.4-2.0 [facility] Laboratory - Microbiology an d Antimicrobial susceptibilityOrdered By: Dr. Barlow on 12-31-2021 SARS-CoV-2 (COVID-19) RNA WILLIAM+probe Ql (Unsp spec) Not detected Not Detect [facility] Comment on above: Normal Reference Ran ge: [...] 12-31-2021 Influenza Types A,B Direct FA (DENY) [facility] RSV Ag Immune stain Ql (Tiss )Ordered By: Dr. Barlow on 12-31-2021 Rapid RSV (DFA) RSV Antigen [facility] Laboratory - Microbiology an d Antimicrobial susceptibilityon 11-30-2021 SARS-CoV-2 (COVID-19) RNA WILLIAM+probe Ql (Unsp spec) Not detected Not Detect [facility] Work Phone: Comment on above: Normal Reference [...] Auto (Unsp spec) [#/Vol] 2.65 10*3/uL 0.83-4.51 [facility] Work Phone: Basophil percentageon 2021 Basophils/100 WBC (Bld) 0.6 % 0-[address] [facility] Work Phone: Bilirubin [Mass/Vol] 0.20 mg/dL 0.20-1.00 [facility] Work Phone: Comment on above: For patients on eltr ombopag therapy, use of Dimension [place] TBIL is not recommended. Chloride [Moles/Vol] 103 mmol/L 98-107 [facility] Work Phone: Eosinophils/100 WBC (Bld) 3.5 % 0-5 [facility] Work Phone: Glucose [Mass/Vol] 98 mg/dL 74-106 [facility] Work Phone: Neutrophils (Bld) [#/Vol] 6.8 10*3/uL 2.0-7.7 [facility] Work Phone: Neutrophils/100 WBC (Bld) 64.9 % 47-70 [facility] Work Phone: Potassium [Moles/Vol] 3.8 mmol/L 3.5-5.1 [facility] Work Phone: Comment on above: Slight Hemolysis, Re sult may be falsely increased. Protein [Mass/Vol] 7.8 g/dL 6.4-8.2 [facility] Work Phone: Sodium [Moles/Vol] 138 mmol/L 136-145 [facility] Work Phone: WBC (Bld) [#/Vol] 10.4 10*3/uL 4.4-11.0 [facility] Work Phone: Blood erythrocytes count (nu mber/volume)on 11-28-2021 RBC (Bld) [#/Vol] 4.40 10*6/uL 4.2-5.4 [facility] Work Phone: Blood hemoglobin measurement (mass/volume)on 11-28-2021 Hemoglobin (Bld) [Mass/Vol] 14.0 g/dL 12.0-15.0 [facility] Work Phone: Blood lymphocytes/100 leukoc yteson 11-28-2021 Lymphocytes/100 WBC (Bld) 25.4 % 19-41 [facility] Work Phone: Blood monocytes/100 leukocyt eson 11-28-2021 Monocytes/100 WBC (Bld) 5.2 % 0-[address] [facility] Work Phone: Blood platelet mean volumeon 11-28-2021 Platelet mean volume (Bld) [Entitic vol] 11.6 fL 6.2-12.0 [facility] Work Phone: Determination of erythrocyte mean corpuscular volume (MCV)on 11-28-2021 MCV (RBC) [Entitic vol] 97.0 fL 81-[address] [facility] Work Phone: Hematocrit Auto (Bld) [Volum e fraction]on 11-28-2021 Hematocrit (Bld) [Volume fraction] 42.7 % 37-47 [facility] Work Phone: [phone] Laboratory - Chemistry and C hemistry - challengeon 11-28-2021 ALP [Catalytic activity/Vol] 109 U/L 45-117 [facility] Work Phone: ALT [Catalytic activity/Vol] 24 U/L 13-56 [facility] Work Phone: CO2 [Moles/Vol] 26.0 mmol/L 21.0-32.0 [facility] Work Phone: Globulin (S) [Mass/Vol] 4.1 g/dL 2.2-4.[address] [facility] Work Phone: Urea nitrogen/Creatinine [Mass ratio] 24.8 mg/mg 10-20 [facility] Work Phone: Laboratory - Hematology and Cell countson 11-28-2021 Erythrocyte distribution width (RBC) [Entitic vol] 49.1 fL 35.1-43.9 [facility] Work Phone: Erythrocyte distribution width (RBC) [Ratio] 13.8 % 11.6-14.6 [facility] Work Phone: Immature granulocytes/100 WBC (Bld) 0.400 % 0.0-0.9 [facility] Work Phone: Comment on above: IG% - Immature Granu locytes (promyelocytes, myelocytes and metamyelocytes) > 1% indicates that a LEFT SHIFT is Present. MCH (RBC) [Entitic mass] 31.8 pg 27.0-32.0 [facility] Work Phone: Nucleated RBC/100 WBC (Bld) [Ratio] 0 % 0-5 [facility] Work Phone: MCHC Auto (RBC) [Mass/Vol]on 11-28-2021 MCHC (RBC) [Mass/Vol] 32.8 g/dL 32-36 [facility] Work Phone: No Panel Informationon 11-28 Estimated GFR (MDRD) Amer 153 mL/min >60 [facility] Work Phone: Comment on above: GFR Calc Estimated GFR (MDRD) Non-Af Amer 126 mL/min >60 [facility] Work Phone: Comment on above: Non- GFR Calc Thyroid Stimulating Hormone (TSH) 1.16 uIU/mL 0.358-3.74 [facility] Work Phone: Vitamin D 25-Hydroxy 31.6 ng/mL [facility] Work Phone: Comment on above: Vitamin D 25(OH) Sta tus Range Deficiency <20 ng/mL (50nmol/L) Insufficiency 20 - 30 ng/mL (50 - 75 nmol/L) Sufficiency 30 - 100 ng/mL (75 - 250 nmol/L) Toxicity >100 ng/mL (>250 nmol/L) Platelets bldon 11-28-2021 Platelets (Bld) [#/Vol] 304 10*3/uL 150-450 [facility] Work Phone: Serum or plasma albumin kamilah urement (mass/volume)on 11-28-2021 Albumin [Mass/Vol] 3.7 g/dL 3.2-5.0 [facility] Work Phone: Serum or plasma albumin/glob ulin mass ratioon 11-28-2021 Albumin/Globulin [Mass ratio] 0.9 {ratio} 0.9-2.4 [facility] Work Phone: Serum or plasma calcium kamilah urement (mass/volume)on 11-28-2021 Calcium [Mass/Vol] 9.0 mg/dL 8.5-10.1 [facility] Work Phone: Serum or plasma creatinine m easurement (mass/volume)on 11-28-2021 Creatinine [Mass/Vol] 0.52 mg/dL 0.55-1.02 [facility] Work Phone: Comment on above: The validity of the calculated GFR & GFRAA in patients over 70 years has not been determined. Clinical correlation is essential. Serum or plasma urea nitroge n measurement (mass/volume)on 11-28-2021 Urea nitrogen [Mass/Vol] 13 mg/dL 7-18 [facility] Work Phone: Thin prep Papanicolaou smear with manual screeningon 11-28-2021 Thin prep Papanicolaou smear with manual screening 21 U/L 15-37 [facility] Work Phone: Comment on above: Slight Hemolysis, Re sult may be falsely increased. Thin prep Papanicolaou smear with manual screening 9 5-15 [facility] Work Phone: BACTERIAL VAGINOSIS AMPLIFIC ATIONon 10-27-2021 Lactobacillus crispatus+gasseri+jense heather + Gardnerella vaginalis + Atopobium vaginae rRNA WILLIAM+probe Ql (Vag fld) Negative Negative for bacterial vaginosis [facility] ONESIMO / TRICHOMONAS AMPLIF ICATIONon 10-27-2021 C. glabrata RNA WILLIAM+probe Ql (Vag fld) Negative Negative for Onesimo glabrata [facility] Onesimo albicans, C. dubliniensis, C. parapsilosis, and C. tropicalis RNA WILLIAM+probe Ql (Vag fld) Negative Negative for Onesimo species [facility] T. vaginalis DNA WILLIAM+probe Ql (Unsp spec) Negative Negative for Trichomonas vaginalis by amplification [facility] UA DIP, URINE (POC)on 2021 BILIRUBIN UA (POCT) Negative Negative [facility] CLARITY UA (POCT) Clear [facility] COLOR UA (POCT) Dark yellow [facility] GLUCOSE UA (POCT) Negative Negative mg/dL [facility] HEMOGLOBIN/BLOOD UA (POCT) Negative Negative [facility] KETONE UA (POCT) Negative Negative mg/dL [facility] LEUKOCYTES UA (POCT) Negative Negative [facility] NITRITE UA (POCT) Negative Negative [facility] PH UA (POCT) 6.0 4.5 - 8.0 [facility] Protein Ql (U) Negative Negative mg/dL [facility] SPECIFIC GRAVITY UA (POCT) >=1.030 1.005 - 1.030 [facility] UROBILINOGEN UA (POCT) 0.2 E.U./dL Normal E.U./ dL [facility] Culture, urineon 07-27-2021 Bacteria identified Cx Nom (U) Mixed Gram Pos & Gram Neg Org [facility] Work Phone: [phone] Absolute lymphocyte counton 07-26-2021 Lymphocytes Auto (Unsp spec) [#/Vol] 2.58 10*3/uL 0.83-4.51 [facility] Work Phone: Basophil percentageon 2021 Basophils/100 WBC (Bld) 0.7 % 0-[address] [facility] Work Phone: Eosinophils/100 WBC (Bld) 2.2 % 0-5 [facility] Work Phone: [phone] Neutrophils (Bld) [#/Vol] 4.6 10*3/uL 2.0-7.7 [facility] Work Phone: Neutrophils/100 WBC (Bld) 57.1 % 47-70 [facility] Work Phone: WBC (Bld) [#/Vol] 8.0 10*3/uL 4.4-11.0 [facility] Work Phone: Blood erythrocytes count (nu mber/volume)on 07-26-2021 RBC (Bld) [#/Vol] 5.03 10*6/uL 4.2-5.4 [facility] Work Phone: Blood hemoglobin measurement (mass/volume)on 07-26-2021 Hemoglobin (Bld) [Mass/Vol] 16.1 g/dL 12.0-15.0 [facility] Work Phone: Blood lymphocytes/100 leukoc yteson 07-26-2021 Lymphocytes/100 WBC (Bld) 32.1 % 19-41 [facility] Work Phone: Blood monocytes/100 leukocyt eson 07-26-2021 Monocytes/100 WBC (Bld) 7.7 % 0-[address] [facility] Work Phone: Blood platelet mean volumeon 07-26-2021 Platelet mean volume (Bld) [Entitic vol] 12.3 fL 6.2-12.0 [facility] Work Phone: Determination of erythrocyte mean corpuscular volume (MCV)on 07-26-2021 MCV (RBC) [Entitic vol] 94.0 fL 81-[address] [facility] Work Phone: Hematocrit Auto (Bld) [Volum e fraction]on 07-26-2021 Hematocrit (Bld) [Volume fraction] 47.3 % 37-47 [facility] Work Phone: Laboratory - Hematology and Cell countson 07-26-2021 Erythrocyte distribution width (RBC) [Entitic vol] 48.4 fL 35.1-43.9 [facility] Work Phone: Erythrocyte distribution width (RBC) [Ratio] 14.0 % 11.6-14.6 [facility] Work Phone: Immature granulocytes/100 WBC (Bld) 0.200 % 0.0-0.9 [facility] Work Phone: [phone] Comment on above: IG% - Immature Granu locytes (promyelocytes, myelocytes and metamyelocytes) > 1% indicates that a LEFT SHIFT is Present. MCH (RBC) [Entitic mass] 32.0 pg 27.0-32.0 [facility] Work Phone: Nucleated RBC/100 WBC (Bld) [Ratio] 0 % 0-5 [facility] Work Phone: MCHC Auto (RBC) [Mass/Vol]on 07-26-2021 MCHC (RBC) [Mass/Vol] 34.0 g/dL 32-36 [facility] Work Phone: Platelets bldon 07-26-2021 Platelets (Bld) [#/Vol] 235 10*3/uL 150-450 [facility] Work Phone: Absolute lymphocyte counton 06-06-2021 Lymphocytes Auto (Unsp spec) [#/Vol] 0.76 10*3/uL 0.83-4.51 [facility] Work Phone: [phone] Basophil percentageon 2021 Basophils/100 WBC (Bld) 0.2 % 0-[address] [facility] Work Phone: Bilirubin [Mass/Vol] 0.40 mg/dL 0.20-1.00 [facility] Work Phone: Comment on above: For patients on eltr ombopag therapy, use of Dimension [place] TBIL is not recommended. Chloride [Moles/Vol] 106 mmol/L 98-107 [facility] Work Phone: Eosinophils/100 WBC (Bld) 0.0 % 0-5 [facility] Work Phone: Glucose [Mass/Vol] 107 mg/dL 74-106 [facility] Work Phone: Comment on above: Fasting Glucose resu lt from 100 to 125 mg/dL suggests IMPAIRED HOMEOSTASIS per A.D.A. criteria. Neutrophils (Bld) [#/Vol] 5.3 10*3/uL 2.0-7.7 [facility] Work Phone: Neutrophils/100 WBC (Bld) 85.0 % 47-70 [facility] Work Phone: Potassium [Moles/Vol] 4.2 mmol/L 3.5-5.1 [facility] Work Phone: Protein [Mass/Vol] 7.6 g/dL 6.4-8.2 [facility] Work Phone: Sodium [Moles/Vol] 140 mmol/L 136-145 [facility] Work Phone: WBC (Bld) [#/Vol] 6.2 10*3/uL 4.4-11.0 [facility] Work Phone: Blood erythrocytes count (nu mber/volume)on 06-06-2021 RBC (Bld) [#/Vol] 4.51 10*6/uL 4.2-5.4 [facility] Work Phone: Blood hemoglobin measurement (mass/volume)on 06-06-2021 Hemoglobin (Bld) [Mass/Vol] 14.0 g/dL 12.0-15.0 [facility] Work Phone: Blood lymphocytes/100 leukoc yteson 06-06-2021 Lymphocytes/100 WBC (Bld) 12.2 % 19-41 [facility] Work Phone: Blood monocytes/100 leukocyt eson 06-06-2021 Monocytes/100 WBC (Bld) 2.4 % 0-[address] [facility] Work Phone: Blood platelet mean volumeon 06-06-2021 Platelet mean volume (Bld) [Entitic vol] 11.5 fL 6.2-12.0 [facility] Work Phone: [phone] Determination of erythrocyte mean corpuscular volume (MCV)on 06-06-2021 MCV (RBC) [Entitic vol] 93.6 fL 81-[address] [facility] Work Phone: Hematocrit Auto (Bld) [Volum e fraction]on 06-06-2021 Hematocrit (Bld) [Volume fraction] 42.2 % 37-47 [facility] Work Phone: [phone] Laboratory - Chemistry and C hemistry - challengeon 06-06-2021 ALP [Catalytic activity/Vol] 123 U/L 45-117 [facility] Work Phone: ALT [Catalytic activity/Vol] 21 U/L 13-56 [facility] Work Phone: CO2 [Moles/Vol] 29.0 mmol/L 21.0-32.0 [facility] Work Phone: [phone] Globulin (S) [Mass/Vol] 3.9 g/dL 2.2-4.[address] [facility] Work Phone: [phone] Urea nitrogen/Creatinine [Mass ratio] 18.4 mg/mg 10-20 [facility] Work Phone: Laboratory - Hematology and Cell countson 06-06-2021 Erythrocyte distribution width (RBC) [Entitic vol] 49.0 fL 35.1-43.9 [facility] Work Phone: Erythrocyte distribution width (RBC) [Ratio] 14.3 % 11.6-14.6 [facility] Work Phone: [phone] Immature granulocytes/100 WBC (Bld) 0.200 % 0.0-0.9 [facility] Work Phone: [phone] Comment on above: IG% - Immature Granu locytes (promyelocytes, myelocytes and metamyelocytes) > 1% indicates that a LEFT SHIFT is Present. MCH (RBC) [Entitic mass] 31.0 pg 27.0-32.0 [facility] Work Phone: Nucleated RBC/100 WBC (Bld) [Ratio] 0 % 0-5 [facility] Work Phone: [phone] MCHC Auto (RBC) [Mass/Vol]on 06-06-2021 MCHC (RBC) [Mass/Vol] 33.2 g/dL 32-36 [facility] Work Phone: No Panel Informationon 06-06 Estimated GFR (MDRD) Amer 166 mL/min >60 [facility] Work Phone: Comment on above: GFR Calc Estimated GFR (MDRD) Non-Af Amer 137 mL/min >60 [facility] Work Phone: Comment on above: Non- GFR Calc Thyroid Stimulating Hormone (TSH) 0.68 uIU/mL 0.358-3.74 [facility] Work Phone: Vitamin D 25-Hydroxy 47.8 ng/mL [facility] Work Phone: Comment on above: Vitamin D 25(OH) Sta tus Range Deficiency <20 ng/mL (50nmol/L) Insufficiency 20 - 30 ng/mL (50 - 75 nmol/L) Sufficiency 30 - 100 ng/mL (75 - 250 nmol/L) Toxicity >100 ng/mL (>250 nmol/L) Platelets bldon 06-06-2021 Platelets (Bld) [#/Vol] 326 10*3/uL 150-450 [facility] Work Phone: Serum or plasma albumin kamilah urement (mass/volume)on 06-06-2021 Albumin [Mass/Vol] 3.7 g/dL 3.2-5.0 [facility] Work Phone: Serum or plasma albumin/glob ulin mass ratioon 06-06-2021 Albumin/Globulin [Mass ratio] 0.9 {ratio} 0.9-2.4 [facility] Work Phone: Serum or plasma calcium kamilah urement (mass/volume)on 06-06-2021 Calcium [Mass/Vol] 9.1 mg/dL 8.5-10.1 [facility] Work Phone: Serum or plasma creatinine m easurement (mass/volume)on 06-06-2021 Creatinine [Mass/Vol] 0.49 mg/dL 0.55-1.02 [facility] Work Phone: Comment on above: The validity of the calculated GFR & GFRAA in patients over 70 years has not been determined. Clinical correlation is essential. Serum or plasma urea nitroge n measurement (mass/volume)on 06-06-2021 Urea nitrogen [Mass/Vol] 9 mg/dL 7-18 [facility] Work Phone: Thin prep Papanicolaou smear with manual screeningon 06-06-2021 Thin prep Papanicolaou smear with manual screening 19 U/L 15-37 [facility] Work Phone: Thin prep Papanicolaou smear with manual screening 5 5-15 [facility] Work Phone: CNTHERAPYon 01-12-2018 CNTHERAPY OT/PT/Speech Visit (SPEMDR) TONYA CUELLO ([id number]) 1960 Tanya Romero Time Provider Kqluaaeusn60/5/18 10:30 AM SPEECH [facility] SPEMDREncounter Number: [id number] Time Provider Department Sbwxau5001/12/2018 10:30 AM [id number] H*SPEMDR [facility]: Speech Instrumental Swallow Eval [3660] [...] 1.4 % MUCOSAL AEROSOL * Use 1 [place] as instructed as * Patient not taking: Reported on 12/20/2017 * DESITIN 40 % TOPICAL OINTMENT Apply to buttocks twice daily * COMPOUNDED PRESCRIPTION Light talker Bruce Cervantes P* * WHEELCHAIR CUSHION MISC Use daily for prevention of d* * MILK OF MAGNESIA 400 MG/5 ML * as neededProgress Notes:Elizabeth Iniguez CCC-CHOKER SETTER 01/12/2018 4:34 PM SignedEpisode Visit Count: Visit count could not be calculated. Make sure you areusing a visit which is associated with an episode.Start of Care Date: 01/12/18Onset Date: 12/08/17Patient Identified by Name and Date of : [facility] REHABILITATION AND SPORTS THERAPYMODIFIED BARIUM SWALLOWPLAN OF [...] degrees for all PO;-Small Bite/Sip;-Supervision/A ssistance for meals.CHOKER SETTER Recommendations:-Diet-S wallowing Precautions- continue Speech Therapy recommendations [...] Level: Required Assistance (aregivers assist/ [place] )Assistance Required With: Swallowing Precautions;Other: See Comment (- all ADLtasks)Assistance Available: 24 Hour (- lives in jail )OBJECTIVE: MEASURES WITH LEVEL OF FUNCTION:Instrumental Swallow Assessment Type: Modified Barium Swallow StudyModified Barium Swallow Views: Lateral positionMBS Consistencies Tested: Thin Barium Liquids;Pudding Thick BariumLiquids;[place] Thick Barium Liquids;Soft Solid With Barium Paste;Puree WithBarium Paste;Solid With Barium PasteOral Phase:Lip Closure: Profuse escape through open lips (- anterior protrusion of tonguebeyond lips )Profuse Escape Through Open Lips With: Thin Liquids;[place] ThickenedLiquids;Puree; Soft Solid;SolidTongue Control During Bolus Hold: [...] n DemonstrationTREATMENT: Performed Modified Barium Swallowing Study (48557).Evaluation: Modified Barium Swallow Evaluation (31391)Swallow / Dysphagia (81524): Skilled Intervention: -Provided video review;writtenAND verbal education [...] understanding ofeducation provided this date.Billing:Modified Barium Swallow (46710) and Dysphagia Treatment (22282)Total time: 30 minutesElizabeth Iniguez CCC-CHOKER SETTER Idania Hendricks [facility] PROGRESSon 01-12-2018 Protein mass conc HNO ID: [id number]: Elizabeth (Driver Manager) FuerstService: (none)Author Type: Speech Language PathologistType: Progress [...] degrees for all PO;-Small Bite/Sip;-Supervision/A ssistance for meals.CHOKER SETTER Recommendations:-Diet-S wallowing Precautions- continue Speech Therapy recommendations [...] positionMBS Consistencies Tested: Thin Barium Liquids;Pudding Thick BariumLiquids;[place] Thick Barium Liquids;Soft Solid With Barium Paste;PureeWith Barium Paste;Solid With Barium PasteOral Phase:Lip Closure: Profuse escape through open lips (- anterior protrusion oftongue beyond lips )Profuse Escape Through Open Lips With: Thin Liquids;[place] ThickenedLiquids;Puree; Soft Solid;SolidTongue Control During Bolus Hold: [...] n DemonstrationTREATMENT: Performed Modified Barium Swallowing Study (73087).Evaluation: Modified Barium Swallow Evaluation (73235)Swallow / Dysphagia (90759): Skilled Intervention: -Provided videoreview; writtenAND verbal education [...] understanding ofeducation provided this date.Billing:Modified Barium Swallow (00877) and Dysphagia Treatment (98431)Total time: 30 minutesElizabeth Iniguez CCC-CHOKER SETTER [facility] XR MOD BARIUM SWALLOW W CHAPIS [...] Kerma: 18.0 mGyDose Area Product (DAP): 3450.0 mGy*dfR9Wgbxwz time: 3:23 min:secRESULT: See speech pathology notes.IMPRESSION: See speech pathology notes.Carpet Cleaning Technician: ALEXIS Transcribe Date/Time: Jan 12 2018 11:31ADictated by : LISY ALONSO MDThis examination was interpreted and the report reviewed and electronically signed by: LISY ALONSO MD on Jan 12 2018 1:06PM [id number] [facility] Anion gap 8 mmol/L Normal 5-16 [facility] Comment on above: Order Comment: Campu s: M Performed By: #### L 500.90455, L500.72099 ####[facility] [id number] [place], [place] [address]Jy# [phone] BUN/Creatinine Ratio 14 mg/mg Low 15-24 [facility] Comment on above: Order Comment: Campu s: M Performed By: #### L 500.85927, L500.55938 ####[facility] [id number] [place], [place] [address]Kz# [phone] Calcium 8.9 mg/dL Normal 8.5-10.1 [facility] Comment on above: Order Comment: Campu s: M Performed By: #### L 500.97559, L500.23777 ####[facility] [id number] [place], [place] [address]Na# [phone] Chloride 103 mmol/L Normal 98-107 [facility] Comment on above: Order Comment: Campu s: M Performed By: #### L 500.89366, L500.06936 ####[facility] [id number] [place], [place] [address]Dh# [phone] CO2 30 mmol/L Normal 21-32 [facility] Comment on above: Order Comment: Campu s: M Performed By: #### L 500.67222, L500.15765 ####[facility] [id number] [place], [place] [address]Bv# [phone] Creatinine 0.487 mg/dL Low 0.510-0.950 [facility] Comment on above: Order Comment: Campu s: M Result Comment: Ariana ents receiving either N-Acetylcysteine (NAC) orMetamizole prior to venipuncture, may have falsely depressedresults. Performed By: #### L 500.56799, L500.64479 ####[facility] [id number] [place], [place] [address]Bc# [phone] Glucose mass conc 84 mg/dL Normal 70-100 [facility] [place] Comment on above: Order Comment: Campu s: M Result Comment: 70-1 00-Normal Fasting; 206-760-Jygemjzi Fasting; greaterthan 126 on more than one result-Diabetes. ADA guidelines Performed By: #### L 500.98793, L500.51239 ####[facility] [id number] [place], [place] [address]Ew# [phone] Potassium molar conc 4.4 mmol/L Normal 3.5-5.1 [facility] [place] Comment on above: Order Comment: Campu s: M Performed By: #### L 500.20944, L500.70381 ####[facility] [id number] [place] [address]Om# [phone] Sodium 140 mmol/L Normal 136-145 [facility] [place] Comment on above: Order Comment: Campu s: M Performed By: #### L 500.05570, L500.06214 ####[facility] [id number] [place] [address]Dz# [phone] Urea nitrogen 7 mg/dL Normal 7-26 [facility] [place] Comment on above: Order Comment: Campu s: M Performed By: #### L 500.65017, L500.30461 ####[facility] [id number] [place] [address]Cd# [phone] GFR ESTon 11-07-2016 IF AMER Greater than 60 Normal [facility] [place] Comment on above: Order Comment: Campu s: M Performed By: #### L 500.21502, L500.13323 ####[facility] [id number] [place], [place] [address]Yb# [phone] IF non-AFR AMER Greater than 60 Normal [facility] [place] Comment on above: Order Comment: Campu s: M Performed By: #### L 500.12298, L500.31969 ####[facility] [id number] [place], [place] [address]Oe# [phone] ORon 11-07-2016 OPERATIVE REPORT This is a preliminar y report only, as the practitioner review and authentication has not occurred. Normal [facility] [place] OR DATE OF SERVICE: 11/07/2016PREOPERATIVE DIAGNOSES:1. Periodontitis.2. Failing amalgam restorations.POSTOPERAT CHRIS DIAGNOSES:1. Periodontitis.2. Failing amalgam restorations.OPERATION: 1. Thorough cleansing of oral cavity with chlorhexidine rinse.2. Full mouth dental and periodontal charting.3. Four-bite wing dental radiographs.4. Prophy.5. Amalgam restorations on 2, 3, 14, and 29.SURGEON: Yang Abrams DMD.SALES REPRESENTATIVE HEALTH INSURANCE: [facility] OR staff.ANESTHESIA: General anesthesia via [...] postanesthesia care unit in satisfactory condition. [facility] PATIENT NAME: TONYA FLETCHERbrian Guzmán MEDICAL REC #: [id number], [place] [address] DATE:DISCHARGE DATE:OPERATIVE REPORT ATTENDING PHY: Yang Abrams [...] am willing to send the patient to [facility] for implant placement, but [...] patient and itis not a necessity. JM Feldman/[id number]: 11/07/2016 09:18DT: 11/07/2016 09:39SSI File#: [id number] #: [id number] [facility] PATIENT NAME: TONYA FLETCHER aJzzy Guzmán MEDICAL REC #: [id number], [place] [address] DATE:DISCHARGE DATE:OPERATIVE REPORT ATTENDING PHY: Yang Abrams DMD [facility] [place] No Panel Information Influenza Types A,B Direct FA (DENY) [facility] Work Phone: RSV Ag Immune stain Ql (Tiss ) Rapid RSV (DFA) RSV Antigen [facility] Work Phone: Vital Signs Date Time Vital Sign Value Performing Clinician Faci alecy 08-26-2024 18:25-0400 Body temperature 96.8 [degF] Haja Coley MD Work Phone: [facility] 08-26-2024 18:25-0400 Diastolic blood pressure 78 mm[Hg] Haja Coley MD Work Phone: [facility] 08-26-2024 18:25-0400 Heart rate 82 /min Haja Coley MD Work Phone: [facility] 08-26-2024 18:25-0400 Respiratory rate 21 /min Haja Coley MD Work Phone: [facility] 08-26-2024 18:25-0400 SaO2% (BldA) [Mass fraction] 94 % Haja Coley MD Work Phone: [facility] 08-26-2024 18:25-0400 Systolic blood pressure 130 mm[Hg] Haja Coley MD Work Phone: [facility] 08-10-2024 14:49-0400 Diastolic blood pressure 80 mm[Hg] Dr. Michelle Marroquin MD Work Phone: [facility] 08-10-2024 14:49-0400 Heart rate 74 /min Dr. Michelle Marroquin MD Work Phone: [facility] 08-10-2024 14:49-0400 SaO2% (BldA) [Mass fraction] 93 % Dr. Michelle Marroquin MD Work Phone: [facility] 08-10-2024 14:49-0400 Systolic blood pressure 120 mm[Hg] Dr. Michelle Marroquin MD Work Phone: [facility] 08-10-2024 14:47-0400 Body height 152.[address] Michelle Marroquin MD Work Phone: [facility] 06-11-2024 13:09-0400 Body temperature 98.2 [degF] Dr. Michelle Marroquin MD Work Phone: [facility] 06-11-2024 13:09-0400 Diastolic blood pressure 56 mm[Hg] Dr. Michelle Marroquin MD Work Phone: [facility] 06-11-2024 13:09-0400 Heart rate 82 /min Dr. Michelle Marroquin MD Work Phone: [facility] 06-11-2024 13:09-0400 Respiratory rate 18 /min Dr. Michelle Marroquin MD Work Phone: [facility] 06-11-2024 13:09-0400 SaO2% (BldA) [Mass fraction] 96 % Dr. Michelle Marroquin MD Work Phone: [facility] 06-11-2024 13:09-0400 Systolic blood pressure 108 mm[Hg] Dr. Michelle Marroquin MD Work Phone: [facility] 05-18-2024 17:06-0400 Body temperature 98.2 [degF] Dr. Michelle Marroquin MD Work Phone: [facility] 05-18-2024 17:06-0400 Diastolic blood pressure 70 mm[Hg] Dr. Michelle Marroquin MD Work Phone: [facility] 05-18-2024 17:06-0400 Heart rate 76 /min Dr. Michelle Marroquin MD Work Phone: [facility] 05-18-2024 17:06-0400 Respiratory rate 14 /min Dr. Michelle Marrouqin MD Work Phone: [facility] 05-18-2024 17:06-0400 Systolic blood pressure 110 mm[Hg] Dr. Michelle Marroquin MD Work Phone: [facility] 04-21-2024 13:58-0500 Body height 152.[address] Michelle Marroquin MD Work Phone: [facility] 04-21-2024 13:58-0500 Body temperature 98.4 [degF] Dr. Michelle Marroquin MD Work Phone: [facility] 04-21-2024 13:58-0500 Diastolic blood pressure 64 mm[Hg] Dr. Michelle Marroquin MD Work Phone: [facility] [facility] 04-21-2024 13:58-0500 Heart rate 92 /min Dr. Michelle Marroquin MD Work Phone: [facility] 04-21-2024 13:58-0500 Respiratory rate 18 /min Dr. Michelle Marroquin MD Work Phone: [facility] 04-21-2024 13:58-0500 SaO2% (BldA) [Mass fraction] 95 % Dr. Michelle Marroquin MD Work Phone: [facility] 04-21-2024 13:58-0500 Systolic blood pressure 110 mm[Hg] Dr. Michelle Marroquin MD Work Phone: [facility] 04-09-2024 20:32-0500 Body temperature 97.6 [degF] Dr. Michelle Marroquin MD Work Phone: [facility] 04-09-2024 20:32-0500 Heart rate 89 /min Dr. Michelle Marroquin MD Work Phone: [facility] 04-09-2024 20:32-0500 Respiratory rate 16 /min Dr. Michelle Marroquin MD Work Phone: [facility] 04-09-2024 20:32-0500 SaO2% (BldA) [Mass fraction] 95 % Dr. Michelle Marroquin MD Work Phone: [facility] 07-21-2023 09:34-0400 Body temperature 98.1 [degF] [facility] 07-21-2023 09:34-0400 Diastolic blood pressure 79 mm[Hg] [facility] 07-21-2023 09:34-0400 Heart rate 86 /min [facility] 07-21-2023 09:34-0400 Respiratory rate 17 /min [facility] 07-21-2023 09:34-0400 SaO2% (BldA) [Mass fraction] 95 % [facility] 07-21-2023 09:34-0400 Systolic blood pressure 132 mm[Hg] [facility] 07-21-2023 08:18-0400 Body height 152.4 cm [facility] 06-13-2023 08:36-0400 Body temperature 97.9 [degF] [facility] 06-13-2023 08:36-0400 Diastolic blood pressure 82 mm[Hg] [facility] 06-13-2023 08:36-0400 Heart rate 97 /min [facility] 06-13-2023 08:36-0400 Respiratory rate 16 /min [facility] 06-13-2023 08:36-0400 SaO2% (BldA) [Mass fraction] 98 % [facility] 06-13-2023 08:36-0400 Systolic blood pressure 129 mm[Hg] [facility] 06-13-2023 05:51-0400 Body height 152.4 cm [facility] 06-13-2023 05:51-0400 Body mass index (BMI) [Ratio] 28.8 kg/m2 [facility] 06-13-2023 05:51-0400 Body weight 67.1 kg [facility] 08-15-2022 18:20-0400 Diastolic blood pressure 74 mm[Hg] [facility] 08-15-2022 18:20-0400 Heart rate 102 /min [facility] 08-15-2022 18:20-0400 Respiratory rate 20 /min [facility] 08-15-2022 18:20-0400 SaO2% (BldA) [Mass fraction] 95 % [facility] 08-15-2022 18:20-0400 Systolic blood pressure 121 mm[Hg] [facility] 08-15-2022 16:38-0400 Body mass index (BMI) [Ratio] 24.7 kg/m2 [facility] 08-15-2022 16:38-0400 Body weight 57.3 kg [facility] 08-15-2022 16:21-0400 Body height 152.4 cm [facility] 08-15-2022 16:21-0400 Body temperature 97.2 [degF] [facility] 03-21-2022 18:59-0500 Diastolic blood pressure 70 mm[Hg] Dr. Rocky Barlow Work Phone: [facility] 03-21-2022 18:59-0500 Heart rate 97 /min Dr. Rocky Barlow Work Phone: [facility] 03-21-2022 18:59-0500 Respiratory rate 18 /min Dr. Rocky Barlow Work Phone: [facility] 03-21-2022 18:59-0500 SaO2% (BldA) [Mass fraction] 98 % Dr. Rocky Barlow Work Phone: [facility] 03-21-2022 18:59-0500 Systolic blood pressure 130 mm[Hg] Dr. Rocky Barlow Work Phone: [facility] 03-21-2022 17:46-0500 Body temperature 98.3 [degF] Dr. Rocky Barlow Work Phone: [facility] 03-21-2022 17:42-0500 Body height 154.[address] Rocky Barlow Work Phone: [facility] 03-21-2022 17:42-0500 Body mass index (BMI) [Ratio] 24.5 kg/m2 Dr. Rocky Barlow Work Phone: [facility] 03-21-2022 17:42-0500 Body weight [address] Rocky Barlow Work Phone: [facility] 01-21-2022 14:13-0500 Body temperature 98.8 [degF] Dr. Rocky Barlow Work Phone: [facility] 01-21-2022 14:13-0500 Diastolic blood pressure 76 mm[Hg] Dr. Rocky Barlow Work Phone: 0(632)373-192497 [place] [address] 01-21-2022 14:13-0500 Heart rate 86 /min Dr. Rocky Barlow Work Phone: 1(144)444-840897 [place] [address] 01-21-2022 14:13-0500 Respiratory rate 14 /min Dr. Rocky Barlow Work Phone: 2(965)080-759197 [place] [address] 01-21-2022 14:13-0500 SaO2% (BldA) [Mass fraction] 98 % Dr. Rocky Barlow Work Phone: 4(005)326-681397 [place] [address] 01-21-2022 14:13-0500 Systolic blood pressure 128 mm[Hg] Dr. Rocky Barlow Work Phone: 3(186)519-977597 [place] [address] 01-03-2022 17:18-0400 Body temperature 98.2 [degF] Dr. Rocky Barlow Work Phone: 5(699)100-612897 [place] [address] 01-03-2022 17:18-0400 Diastolic blood pressure 92 mm[Hg] Dr. Rocky Barlow Work Phone: 0(415)616-142897 [place] [address] 01-03-2022 17:18-0400 Heart rate 94 /min Dr. Rocky Barlow Work Phone: [facility] 01-03-2022 17:18-0400 Respiratory rate 20 /min Dr. Rocky Barlow Work Phone: 1(047)232-151497 [place] [address] 01-03-2022 17:18-0400 SaO2% (BldA) [Mass fraction] 95 % Dr. Rocky Barlow Work Phone: [facility] 01-03-2022 17:18-0400 Systolic blood pressure 118 mm[Hg] Dr. Rocky Barlow Work Phone: 6(700)383-354197 [place] [address] 01-03-2022 14:19-0400 Inhaled oxygen flow rate 2 L/min Dr. Rocky Barlow Work Phone: [facility] 01-02-2022 21:40-0400 Body height 152.[address] Rocky Barlow Work Phone: [facility] Work Phone: 01-02-2022 21:40-0400 Body mass index (BMI) [Ratio] 23.2 kg/m2 Dr. Rocky Barlow Work Phone: [facility] 01-02-2022 21:40-0400 Body weight [address] Rocky Barlow Work Phone: [facility] 10-26-2021 07:33-0400 Body temperature 97.2 [degF] Lennox Chamberlain N[employer] AND [employer] ASSEMBLER.DIRECTOR MANUFACTURING ENGINEERING Work Phone: [facility] 10-26-2021 07:33-0400 Diastolic blood pressure 80 mm[Hg] Lennox Chamberlain [employer] AND [employer] ASSEMBLER.DIRECTOR MANUFACTURING ENGINEERING Work Phone: [facility] 10-26-2021 07:33-0400 Heart rate 72 /min Lennox Bulmaro NUT AND [employer]T ASSEMBLER.DIRECTOR MANUFACTURING ENGINEERING Work Phone: [facility] 10-26-2021 07:33-0400 Respiratory rate 16 /min Lennox Chamberlain NUT AND B[employer]T ASSEMBLER.DIRECTOR MANUFACTURING ENGINEERING Work Phone: [facility] 10-26-2021 07:33-0400 SaO2% (BldA) [Mass fraction] 98 % Lennox Chamberlain N[employer] AND [employer]T ASSEMBLER.DIRECTOR MANUFACTURING ENGINEERING Work Phone: [facility] 10-26-2021 07:33-0400 Systolic blood pressure 126 mm[Hg] Lennox Chamberlain N[employer] AND [employer] ASSEMBLER.DIRECTOR MANUFACTURING ENGINEERING Work Phone: [facility] Encounters Encounter Date Encounter Type Care Provider Facility Start: 09-05-2024 Emergency department patient visit [facility] Facility:[facility] Start: 08-26-2024 End: 08-26-2024 Office outpatient visit 15 minutes Haja Coley MD Work Phone: [facility] Comment on above: Nausea and vomiting, unspecified vomiting type (Primary Dx) Start: 08-26-2024 End: 08-26-20[facility] Start: 08-10-2024 End: 08-10-2024 Patient encounter procedure [facility] G[facility] Work Phone: Start: 08-10-2024 End: 08-10-[address] Michelle Marroquin MD Work Phone: [facility] Work Phone: Start: 06-11-2024 End: 06-11-[address] Michelle Marroquin MD [facility] Work Phone: Start: 06-11-2024 End: 06-11-[address] Michelle Marroquin MD [facility] Start: 06-11-2024 End: 06-11-[address] Michelle Marroquin MD Work Phone: [facility] Work Phone: Start: 06-11-2024 End: 06-11-2024 ambulatory [facility] Facility:[facility] Start: 05-18-2024 End: 05-18-2024 Patient encounter procedure Christ Aguirre [facility] Work Phone: Start: 05-18-2024 End: 05-18-2024 ambulatory Christ GOVEA [facility] Start: 04-21-2024 End: 04-21-[address] Michelle Marroquin MD -[facility] Work Phone: Start: 04-21-2024 End: 04-21-20[facility] Start: 04-21-2024 End: 04-21-2024 ambulatory [facility] Facility:[facility] Start: 04-09-2024 End: 04-09-2024 Emergency department patient visit Dr. Gregory Coleman MD -Emergency Department Work Phone: Start: 12-21-2023 End: 12-21-2023 [facility] Start: 12-12-2023 End: 12-12-2023 ambulatory John GOVEA Facility:[facility] Start: 10-08-2023 End: 10-08-2023 ambulatory Panfilo Lizamaori Facility:[facility] Start: 10-08-2023 End: 10-08-2023 ambulatory John GOVEA Facility:[facility] Start: 09-23-2023 End: 09-23-2023 Emergency department patient visit [facility] Facility:[facility] Start: 07-31-[address] Michelle Marroquin MD Work Phone: [facility] Start: 07-21-2023 End: 07-21-2023 Emergency department patient visit [facility]-Emergency Department Work Phone: Start: 06-19-2023 End: 06-19-2023 ambulatory [facility] Work Phone: Start: 06-19-2023 End: 06-19-2023 Patient encounter procedure [facility]-Laboratory, Phy Office 3rd Flr Start: 06-13-2023 End: 06-13-2023 Emergency department patient visit [facility]-Emergency Department Work Phone: Start: 02-05-2023 End: 02-05-2023 ambulatory [facility] Work Phone: Start: 02-05-2023 End: 02-05-2023 Patient encounter procedure [facility]-Pulmonary Services/Neurology Work Phone: Start: 01-01-2023 End: 01-01-2023 ambulatory [facility] Work Phone: Start: 01-01-2023 End: 01-01-2023 Patient encounter procedure [facility]-Radiology, [facility] Work Phone: Start: 12-12-2022 End: 12-12-2022 Patient encounter procedure [facility]-Pulmonary Services/Neurology Work Phone: Start: 12-11-2022 End: 12-11-2022 [facility] Start: 12-03-2022 End: 12-03-2022 ambulatory [facility] Work Phone: Start: 12-03-2022 End: 12-03-2022 Patient encounter procedure [facility]-Laboratory, Phy Office 3rd Flr Start: 08-15-2022 End: 08-15-2022 [facility] Start: 05-30-2022 End: 05-30-2022 ambulatory [facility] Work Phone: Start: 05-30-2022 End: 05-30-2022 [facility] Start: 03-29-2022 End: 03-29-[address] Rocky Barlow Work Phone: [facility] Work Phone: Start: 03-29-2022 End: 03-29-[address] Rocky Barlow Work Phone: [facility]-Pulmonary Services/Neurology Start: 03-21-2022 End: 03-21-2022 Emergency department patient visit Dr. Rocky Barlow Work Phone: [facility]-Emergency Department Start: 01-21-2022 End: 01-21-[address] Rocky Barlow Work Phone: [facility] Start: 01-03-2022 Non-patient / Non-visit Dr. Jong Barlow Work Phone: [facility] Start: 01-02-2022 Non-patient / Non-visit Dr. Jong Barlow Work Phone: [facility] Start: 01-02-2022 End: 01-03-2022 Evaluation and management of inpatient Dr. Rocky Barlow Work Phone: [facility]-Medical Surgical 3 Start: 01-02-2022 End: 01-03-[address] Rocky Barlow Work Phone: [facility] Work Phone: Start: 12-31-2021 End: 12-31-[address] Rocky Barlow Work Phone: [facility] Work Phone: Start: 12-31-2021 End: 12-31-[address] Rocky Barlow Work Phone: [facility]-Radiology, [facility] Start: 11-30-2021 End: 11-30-2021 ambulatory [facility] Work Phone: Start: 11-30-2021 End: 11-30-2021 Patient encounter procedure [facility]-Pulmonary Services/Neurology Start: 11-28-2021 End: 11-28-2021 ambulatory [facility] Work Phone: Start: 11-28-2021 End: 11-28-2021 Patient encounter procedure [facility]-Laboratory, Phy Office 3rd Flr Start: 10-27-2021 Telephone encounter Melba Campoverde APRN.DIRECTOR MANUFACTURING ENGINEERING Work Phone: [facility] Comment on above: Results, Lab; Result s Results Start: 10-26-2021 End: 10-26-2021 Patient encounter procedure Kathya Eric APRN.CNM Work Phone: OB/Gynecology Comment on above: Vaginal itching (Simona ahsan Dx); Vaginal burning; Vaginal odor; Vaginal discharge Start: 10-26-2021 End: 10-26-2021 Patient encounter procedure Lennox Chamberlain APRN.DIRECTOR MANUFACTURING ENGINEERING Work Phone: [facility] Comment on above: Burning with urinati on (Primary Dx); Wheeze; Chronic cough Start: 07-27-2021 End: 07-27-2021 Patient encounter procedure [facility]-Laboratory, Specimen Start: 07-26-2021 End: 07-26-2021 Patient encounter procedure [facility]-Laboratory, Phy Office 3rd Flr Start: 07-09-2021 End: 07-09-2021 Patient encounter procedure [facility]-Radiology, [facility] Start: 06-06-2021 End: 06-06-2021 Patient encounter procedure [facility]-Laboratory Start: 05-30-2021 End: 05-30-2021 Patient encounter procedure [facility]-Radiology, [facility] Start: 04-25-2021 End: 04-25-2021 Patient encounter procedure [facility], [facility] Start: 01-12-2018 End: 01-12-2018 Patient encounter procedure [facility] Start: 12-09-2017 Patient encounter procedure [facility] Start: 11-07-2016 Evaluation and management of inpatient Yang Abrams Facility:[facility] Start: 10-29-2016 Ambulatory Yang Abrams Facility: [facility] Procedures Date Procedure Procedure Detail [...] et rgnt auto w/o microscopy Lennox Chamberlain APRN.DIRECTOR MANUFACTURING ENGINEERING Work Phone: Start: 07-27-2021 Urine culture Start: 07-09-2021 X-ray of both feet Start: 05-30-2021 X-ray of both feet Start: 04-25-2021 X-ray of chest posteroanterior view Start: 03-17-2019 H/O: surgery S/P deep brain stimulator placement Lennox Chamberlain APRN.DIRECTOR MANUFACTURING ENGINEERING Work Phone: Start: 10-28-2012 Lipid 1996 panel - S radha or Plasma Haja Coley MD Work Phone: Start: 09-03-2012 Mammography Lennox K ing NUT AND BOLT ASSEMBLER.DIRECTOR MANUFACTURING ENGINEERING Work Phone: Influenza Types A,B Direct FA [...] Screening for malign ant neoplasm of colon [facility] Start: 04-09-2024 [facility] Start: 03-10-2024 Medicare Advantage A nnual Wellness Visit Medicare Advantage Annual Wellness Visit [facility] Start: 11-09-2023 Covid-19 Vaccine ( season) Covid-19 Vaccine ( season) [facility] Start: 07-21-2023 [facility] Start: 06-13-2023 [facility] Start: 01-03-2022 Patient discharge [facility] Start: 01-02-2022 Following clinical pathway protocol [facility] Start: 01-02-2022 Assessment of risk o f venous thromboembolism [facility] Start: 01-02-2022 Inhalation therapy procedure [facility] Start: 01-02-2022 Insertion of cathete r into peripheral vein [facility] Start: 01-02-2022 Oxygen therapy [facility] Start: 01-02-2022 Providing care accor ding to standard [facility] Start: 01-02-2022 Provision of activit y privileges [facility] Start: 01-02-2022 Referral to occupati onal therapist [facility] Start: 01-02-2022 Referral to service [facility] Start: 01-02-2022 Respiratory secretio n precautions [facility] Start: 01-02-2022 [facility] Start: 01-02-2022 Admission procedure [facility] Start: 11-08-2021 Influenza vaccination INFLUENZA (#1) [facility] Start: 03-12-2021 COVID-19 VACCINE (2 - Moderna series) COVID-19 VACCINE (2 - Moderna series) [facility] Start: 09-13-2019 PAP TESTING PAP TESTING [facility] Start: 10-28-2017 Lipid panel Lipid Screening [facility] Start: 10-28-2017 LIPID SCREEN LIPID SCREEN [facility] Start: 09-12-2017 Screening for malign ant neoplasm of cervix Cervical Cancer Screening [facility] Start: 09-03-2013 Mammography MAMMOGRAM [facility] Start: 09-03-2013 Screening for malign ant neoplasm of breast Mammogram Screening [facility] Start: 01-23-2013 DIABETES SCREEN DIABETES SCREEN [facility] Start: 01-23-2013 Diabetes Screening Diabetes Screenin g [facility] Start: 07-05-2011 Pneumococcal Vaccine : 50+ (1 of 1 - PCV) Pneumococcal Vaccine: 50+ (1 of 1 - PCV) [facility] Start: 07-05-2011 SHINGRIX VACCINE (1 of 2) GRAY GRIX VACCINE (1 of 2) [facility] Start: 2006 COLOGUARD (FIT-DNA) COLOGUARD (FIT-D NA) [facility] Start: 2006 Colonoscopy COLONOSCOPY [facility] Start: 2006 COLORECTAL CANCER SCREENING COLORECTAL CANCER SCREENING [facility] Start: [address] COLONOGRAPHY [facility] Start: 2006 FECAL OCCULT BLOOD FECAL OCCULT BLOO D [facility] Start: 2006 Screening for malign ant neoplasm of colon [facility] Start: 2006 SIGMOIDOSCOPY SIGMOIDOSCOPY [facility] Start: 12-10-1995 Urine microalbumin profile [facility] Start: 07-05-1991 HPV TESTING HPV TESTING [facility] Start: 07-05-1979 ANNUAL PCP TEAM EMPLOYEE COMMUNICATION[employer] MANAGER [employer] DISEASE VISIT ANNUAL PCP TEAM CHRONIC DISEASE VISIT [facility] Start: 07-05-1979 Anxiety Screening Anxiety Screening [facility] Start: 07-05-1979 HEPATITIS C SCREENING HEPATITIS C [facility] Start: 07-05-1979 Hepatitis C screening Hepatitis C [facility] Start: 07-05-1979 HIV SCREENING HIV SCREENING [facility] Start: 07-05-1979 HIV screening HIV Screening [facility] Bacteria identified in Urine by Culture URINE CULTURE Microbiology Routine Burning with urination Ordered: 10/26/2021 [facility] Work Phone: Comment on above: Ordered: 10/26/2021 Influenza virus A an d B RNA and SARS-CoV-2 (COVID-19) N gene panel - Respiratory specimen by WILLIAM with probe detection COVID WITH FLUA+B, ROUTINE Microbiology Routine Wheeze Chronic cough Ordered: 10/26/2021 [facility] Work Phone: Comment on above: Ordered: 10/26/2021 Patient Education [facility] Work Phone: Patient referral [facility] Work Phone: XR Chest PA and Lateral [facility] Immunizations Immunization Date Immunization Notes Care Provider [facility] 12-12-2023 influenza, injectabl e, madin suraj canine kidney, preservative free Dr. Michelle Marroquin MD Work Phone: [facility] 11-27-2021 Influenza, high dose seasonal Dr. Michelle Marroquin MD Work Phone: [facility] 11-27-2021 influenza, high dose seasonal, preservative-free Dr. Rocky Barlow Work Phone: [facility] 03-10-2021 Covid (Moderna) Dr. Rocky Barlow Work Phone: [facility] 02-12-2021 Covid (Moderna) Dr. Rocky Barlow Work Phone: [facility] 12-27-2016 Influenza virus vaccine [facility] 10-16-2010 tuberculin skin test ; purified protein derivative solution, intradermal Haja Coley MD Work Phone: [facility] 01-16-2010 influenza virus vaccine, unspecified formulation Lennox Chamberlain APRN.CNP Work Phone: [facility] Work Phone: 03-29-2009 novel [id number], all formulations Lennox Chamberlain NUT AND B[employer]T ASSEMBLER.DIRECTOR MANUFACTURING ENGINEERING Work Phone: [facility] Work Phone: 12-29-2008 influenza virus vaccine, unspecified formulation Lennox Chamberlain NUT AND BOLT ASSEMBLER.DIRECTOR MANUFACTURING ENGINEERING Work Phone: [facility] Work Phone: 01-14-2008 influenza virus vaccine, unspecified formulation Lennox Chamberlain NUT AND BOLT ASSEMBLER.DIRECTOR MANUFACTURING ENGINEERING Work Phone: [facility] Work Phone: 01-13-2007 influenza virus vaccine, unspecified formulation Lennox Chamberlain NUT AND BOLT ASSEMBLER.DIRECTOR MANUFACTURING ENGINEERING Work Phone: [facility] Work Phone: 01-08-2003 influenza virus vaccine, whole virus Lennox Chamberlain NUT AND BOLT ASSEMBLER.DIRECTOR MANUFACTURING ENGINEERING Work Phone: [facility] Work Phone: 12-09-1995 tetanus and diphther ia toxoids, adsorbed, preservative free, for adult use (2 Lf of tetanus toxoid and 2 Lf of diphtheria toxoid) Lennox Chamberlain MARTHA.DIRECTOR MANUFACTURING ENGINEERING Work Phone: [facility] Work Phone: Payers Date Payer Category Payer Medicare (Managed Care) CABRERA Finn [place] [facility] [id number] 2023 Self-pay [id number] 2023 Unknown [id number] 2017 Medicaid [id number] 2017 Medicaid [id number] 1981 Medicare [id number] 1981 Medicare [id number] 1981 Medicare MEDICARE MEDICAR E A AND B [id number] 1981-Present [phone] [place] [address] Medicare [id number] Unknown [id number] 2.16.840.1.481999.3.579.2. 462 Unknown [id number] 2.16.840.1.393889.3.579.2. 462 Unknown [id number] 2.16.840.1.858892.3.579.2. 462 Unknown [id number] 2.16.840.1.758075.3.579.2. 462 Unknown [id number] 2.16.840.1.945402.3.579.2. 462 Unknown [id number] 2.16.840.1.450452.3.579.2. 462 Unknown [id number] 2.16.840.1.525494.3.579.2. 462 Unknown [id number] 2.16.840.1.491338.3.579.2. 462 Unknown [id number] 2.16.840.1.218974.3.579.2. 462 Unknown [id number] 2.16.840.1.687723.3.579.2. 462 Unknown [id number] 2.16.840.1.413795.3.579.2. 462 Unknown [id number] 2.16.840.1.623502.3.579.2. 462 Unknown [id number] 2.16.840.1.921113.3.579.2. 462 Social History Date Type Detail Facility Start: 02-05-2021 End: 07-21-2023 Tobacco smoking status TXIS Unknown if ever smoked [facility] Start: 01-08-2019 Non-smoker [facility] Start: 1960 Sex Assigned At Female [facility] Start: 08-30-2010 End: 08-10-2024 Tobacco smoking status TXIS Never smoked tobacco [facility] Work Phone: Start: 08-30-2010 Tobacco use and exposure Smokeless tobacco non-user [facility] Work Phone: Start: 05-22-2020 Alcohol intake Current non-dr test lab technician of alcohol (finding) [facility] Start: 1960 Sex Assigned At Not on file [facility] Start: 10-16-2021 End: 10-26-2021 Exposure to SARS-CoV-2 (event) Not sure [facility] Work Phone: Start: 06-15-2024 Sex Female (finding) [facility] Start: 05-22-2020 End: 04-05-2022 History of Social function [facility] Start: 05-22-2020 End: 04-05-2022 Tobacco use panel [facility] Work Phone: National Score (1-100), lower number is lower risk 68 [facility] Medical Equipment Procedure Code Equipment Code Equipment Origin al Text Equipment Identifier Dates Lens Iol 0d +24 Manuel Uv Abs - [id number] Start: 03-22-2019 Lens Acrysof Ultrasert +24.5 Diopter Acrylic Iol 1 Piece Foldable Uv Blue - [id number] Start: 11-22-2019 Comment on above: Description: -1.05 Goals Date Patient Goal Desired Activity /State Functional Status Date Assessment Result Facility 01-03-2022 Functional status Bedrest [facility] Work Phone: 09-30-2014 Are you deaf, or do you have serious difficulty hearing No 09/30/2014 9:29 AM EDT Lakshmi Nguyen RN No [facility] Work Phone: 09-30-2014 Are you blind, or do you have serious difficulty seeing, even when wearing glasses No 09/30/2014 9:29 AM EDT Lakshmi Nguyen RN No [facility] 09-30-2014 Do you have serious difficulty walking or climbing stairs Yes 09/30/2014 9:29 AM EDT Lakshmi Nguyen RN Yes [facility] 09-30-2014 Do you have difficul ty dressing or bathing Yes 09/30/2014 9:29 AM EDT Lakshmi Nguyen RN Yes [facility] 09-30-2014 Because of a physica l, mental, or emotional condition, do you have difficulty doing errands alone such as visiting a physician's office or shopping Yes 09/30/2014 9:29 AM DOMINICKT Lakshmi Nguyen RN Yes [facility] Mental Status Date Assessment Result Facility 06-13-2023 Cognitive function Level Of Cons ciousness Awake [facility] Work Phone: 01-03-[address] [facility] Work Phone: 09-12-2014 Because of a physica l, mental, or emotional condition, do you have serious difficulty concentrating, remembering, or making decisions No 09/12/2014 8:23 AM EDT April Raza MA No [facility] Clinical Notes 10-26-2021 to 08-26-2024 Haja Coley MD - 08/26/2024 6:40 PM EDT Note Date & Type Note Facility 08-26-2024 Note HNO ID: [id number] Author: HAJA COLEY MD Service: ? Author Type: Physician Type: Progress Notes Filed: 08/26/2024 18:45 Note Text: [facility] Subjective Tonyatahmina Fletcher is a 64 year [...] following reason(s): Benign exam and vitals Procedures [facility] 08-26-2024 History of Present illness Narrative [...] and vitals Procedures documented in this encounter [facility] 04-21-2024 Evaluation note Diagnosis Onset [...] Urinary incontinence chronic Apri l 2024 12:50pm [facility] Work Phone: 1(743) 944-620204-05-2024 Discharge summary Author Haresh Curtis [facility] June 13, 2023 8:23am Note Date/Time June 13, 2023 6:33 am [facility] Medical Records Department [address] [place] [address] Emergency Department Summary 06/13/23 MR#: [id number] Acct: [id number] Name: TONYA FLETCHER Rep #:[id number] : 1960 62 From: Haresh Curtis DO PCP: Dr. Rocky Barlow MD Status:REG E R Location: ED HPI History of Present Illness Chief Complaint: General Illness Informant: patient and legal guardian Narrative Narrative: Patient is a 62-year-old female with past medical history of cerebral palsy as well as previous pulmonary embolism currently on Xarelto hypothyroidism and hyperlipidemia. 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 Recyclable Materials Distributor states that the vomit was whenever was in her stomach and then turned to bile and was not dark or bloody. Reportedly the patient has a remote historyof bowel obstruction and the manager night denies any recent diarrhea and therefore was concerned for this and called EMS to bring her in for evaluation. The patient cannot offer any further history based on her cerebral palsy Please note manager night states that she and her other manager night were both sick with similar symptoms just last week. [facility] Medical History Allergic rhinitis Barretts esophagus [...] note review of systems was obtained from manager night Constitutional Constitutional ED: Denies fever(s) ENT ENT [...] Differential diagnosis is for viral infection suchas [place] virus versus rotavirus versus electrolyte abnormality versus [...] & Record Review Discussion w/independent historian: Other (Recyclable Materials Distributor) Lab Data Attestation: I reviewed the patient's lab results. Labs: Laboratory Results - last 24 hr 06/13/23 06:12 WBC 9.0 RBC 4.62 Hgb 14.3 Hct 43.6 MCV 94.4 MCH 31.0 MCHC 32.8 RDW Std Deviation 47.4 H RDW Coeff of Handy 13.5 Plt Count 321 MPV 10.5 Immature Gran % (Auto) 0.200 Neut % (Auto) 80.0 H Lymph % (Auto) 12.4 L Beckham % (Auto) 4.6 Eos % (Auto) 2.5 [...] Impression: Nausea and vomiting, Current use of fci anticoagulation, Cerebral palsy Instructions: ED Gastroenteritis, Viral [...] your Primary Care Provider. Call [facility] ([phone]) or report to the closest Emergency Room. Call 911 if necessary. 06/13/23822 <Electronically signed by Haresh Curtis DO> Cosigner Signature (if applicable): CC: Dr. Rocky Barlow MD ~ Signed [facility] Work Phone: [phone] 530-402810-25-2023 Procedure [facility] 10-29-2021 Miscellaneous Notes* Telephone Encounter - Mary Alice Sumner RN - 10/29/2021 10:43 AM EDT Erica Askew with [facility] notified. Patient did already take diflucan and symptoms have improved. Mary Alice Sumner RN * Telephone Encounter - Mary Alice Sumner RN - 10/29/2021 9:49 AM EDT Left voicemail on [facility] to call office. Mary Alice Sumner RN * Telephone Encounter - Kathya Eric APRN.CNM - 10/27/2021 12:04 PM EDT Please notify patient that results are negative. She did receive 1 dose of Diflucan. If any furtherissues or concerns to please let us know and can decide on another treatment plan for symptoms.Kathya Eric APRN.CNM documented in [facility] Miscellaneous Notes* Telephone Encounter - Libby Mariano - 10/27/2021 2:30 PM EDT Patient given results and verbalized understanding of instructions given. Libby Mariano * Telephone Encounter - Libby Mariano - 10/27/2021 2:05 PM EDT ----- Message from Melba Suarez APRN.DIRECTOR MANUFACTURING ENGINEERING sent at 10/27/2021 1:54 PM EDT ----- Urine culture did not show clear evidence of infection, however it appears sample may have been contaminated with skin bacteria during collection. If not improving, recommend follow up with PCP. Melba Suarez CNP documented in this encounterGalion [facility] Hospital08-19-2022 Instructions* Patient Instructions* Kathya Eric [...] for diabetes Get tested for HIV/AIDS Copyright 6359-3881 [facility]. All rights reserved. This information is provided by the [facility] and is not intended to replace the medical advice of your doctor or health care provider. Please consult your health care provider for advice about a specific medical condition. For additional written health information, please contact the [facility] at the [facility] or toll-free extension [phone]. This document was last reviewed on: 2004 index#[id number] documented in this encounterGalion [facility] Hospital08-19-2022 History of Present illness Narrative* [...] L0 SAB0 IAB0 Ectopic0 Multiple0 Live Births0 Search Engine Optimization Analyst History LMP: LMP Unknown, Postmenopausal Age at Menarche: Age at First : Age at Menopause: Search Engine Optimization Analyst History Comments: Sexual Activity: Never; No partner data on record Contraception: No contraception data on record PAST MEDICAL HISTORY Diagnosis Date Allergic rhinitis due to other allergen Depressive disorder, not elsewhere classified Sees Dr. Anna Tomlin from [facility] Esophageal reflux suspected cause of emesis episodes [...] EGD W/O OR W/BRUSH/WASH 05/22/2017 EGD w/biopsy [facility] EGD W/O OR W/BRUSH/WASH 05/28/2018 PAST [...] once daily. COMPOUNDED PRESCRIPTION Light talker Prentke TreatFeed Pathfinder Device with Table Mount, Wheelchair Mount [...] recommendations. Kathya Eric APRN.CNM documented in this encounterGalion [facility] Hospital08-19-2022 History of Present illness Narrative* Lennox Chamberlain APRN.DIRECTOR MANUFACTURING ENGINEERING - 10/26/2021 8:17 AM EDT Subjective HPI HPI Tonya Fletcher is a 61 year old female who presents today for CC of burning with urination. This started 1 week ago. Has tried nothing for relief. Symptoms are worsened by nothing. medical staff services manager reports no visible abnormality in area. Patient [...] elsewhere classified Sees Dr. Anna Tomlin from [facility] Esophageal reflux suspected cause of emesis episodes [...] EGD W/O OR W/BRUSH/WASH 05/22/2017 EGD w/biopsy [facility] EGD W/O OR W/BRUSH/WASH 05/28/2018 PAST [...] buttocks twice daily COMPOUNDED PRESCRIPTION Light talker [employer] Pathfinder Device with Table Mount, Wheelchair Mount [...] culture - will try to get earlier business analysis professional appointment Worsening symptoms go to ER. - [...] plan Lennox Chamberlain APRN.CNP documented in this encounterGalion [facility] Hospital08-19-2022 Instructions* Patient Instructions* Lennox Chamberlain APRN.CNP - 10/26/2021 8:09 AM EDT ASSESSMENT/PLAN: 1. Burning with urination - ICD9: 788.1, ICD10: R30.0 (primary diagnosis) Acute -urinalysis negative - Send urine for culture - will try to get earlier business analysis professional appointment Worsening symptoms go to ER. - [...] breath go to ER documented in this encounterGalion Community HospitalEvaluation noteNo assessment information availableWMount St. [facility] Work Phone: Evaluation note* Diagnosis Burning with urination- Primary Dysuria Wheeze Wheezing Chronic cough Cough documented in this encounter [facility]* Diagnosis Vaginal itching- Primary Pruritus of genital organs Vaginal burning Other specified symptom associated with female genital organs Vaginal odor Unspecified symptom associated with female genital organs Vaginal discharge Leukorrhea, not specified as infective documented in this encounter [facility]* Diagnosis Onset Date Resolution Status Acute respiratory failure with hypoxia acute RSV bronchitis acute Tachycardia acute [facility] Work Phone: Evaluation note* Diagnosis Onset Date Resolution Status RSV bronchitis acute Acute respiratory failure with hypoxia resolved Tachycardia resolved Gastroenteritis acute URI (upper respiratory infection) acute [facility] Work Phone: Evaluation note* Diagnosis Pre-operative examination- [...] vomiting type- [facility] Additional Instructions Your workup today does not show any signs of aspiration or small bowel obstruction. Symptoms are most likely related to a viral stomach infection based on your negative workup and exposure. Use the Zofran as directed to help control any further bouts of nausea and vomiting and return to the ER should you have any further concernsWMount St. [facility] Work Phone: Hospital Discharge instructions Additional [...] if she develops a fever or is worse.[facility] Work Phone: Reason for referral (narrative)No reason for referral information availableWMount St. Mary Hospital Work Phone: Summary Purpose Family History [...] Will No February 05 11:33pm Power of Golf Ball Marker No February 05, 2021 11:33pm Advance Directive Response Recorded Date/ Time Name of Medical Power of Golf Ball Marker Jess anders January 02, 2022 9:53pm Advance Directives No May 25 9:26am Living Will No January 02 9:53pm Power of Golf Ball Marker Yes January 02, 2022 9:53pm Advance Directive Response Recorded Date/ Time Name of Medical Power of Golf Ball Marker Jess anders January 02, 2022 8:53pm Advance Directives No January 1:53pm Living Will No March 21 5:49pm Power of Golf Ball Marker No March 21, 2022 5:49pm Advance Directive Response Recorded Date/ Time Advance Directives No January 2:53pm Living Will No March 21 6:49pm Power of Golf Ball Marker No March 21, 2022 6:49pm Advance Directive Response Recorded Date/ Time Advance Directives No January 2:53pm Living Will No August 15, 2022 5 :22pm Power of Golf Ball Marker No August 15, 2022 5:22pm Advance Directive Response Recorded Date/ Time Advance Directives No January 1:53pm Living Will No August 15, 2022 4 :22pm Power of Golf Ball Marker No August 15, 2022 4:22pm Advance Directive Response Recorded Date/ Time Advance Directives No January 2:53pm Living Will No July 21, 2023 8 :44am Power of Golf Ball Marker No July 21, 2023 8:44am Advance Directive Response Recorded Date/ Time Living Will No October 08, 2023 3:03pm Do you have a Healthcare Power of Golf Ball Marker? No October 08, 2023 3:03pm Living Will No April 09 9:36pm Do you have a Healthcare Power of Golf Ball Marker? No April 09, 2024 9:36pm Advance Directives No October 07 3:03pm Advance Directive Response Recorded Date/ Time Living Will No October 08, 2023 3:03pm Do you have a Healthcare Power of Golf Ball Marker? No October 08, 2023 3:03pm Advance Directives No October 07 3:03pm Advance Directive Response Recorded Date/ Time Living Will No October 08, 2023 3:03pm Do you have a Healthcare Power of Golf Ball Marker? No October 08, 2023 3:03pm Advance Directives [...] section and content) DATE CREATED AUTHOR 09/03/2017 [facility] DATE CREATED AUTHOR AUTHOR'S ORGANIZ ATION 02/15/2018 [facility] DATE CREATED AUTHOR AUTHOR'S ORGANIZ ATION 08/29/2024 [facility] DATE CREATED AUTHOR AUTHOR'S ORGANIZ ATION 09/05/2024 [facility] Goals (unrecognized section and content) Goals may [...] or prosecute any alcohol or drug abuse patient.[facility] HospitalIn the event this information is protected by the Federal Confidentiality of Alcohol and Drug Abuse Patient Records regulations: The Federal rules restrict any use of the information to criminally investigate or prosecute any alcohol or drug abuse patient.[facility] HospitalIn the event this information is protected by the Federal Confidentiality of Alcohol and Drug Abuse Patient Records regulations: The Federal rules restrict any use of the information to criminally investigate or prosecute any alcohol or drug abuse patient.[facility] HospitalIn the event this information is protected by the Federal Confidentiality of Alcohol and Drug Abuse Patient Records regulations: The Federal rules restrict any use of the information to criminally investigate or prosecute any alcohol or drug abuse patient.[facility] HospitalIn the event this information is protected by the Federal Confidentiality of Alcohol and Drug Abuse Patient Records regulations: The Federal rules restrict any use of the information to criminally investigate or prosecute any alcohol or drug abuse patient.[facility] Reason for Visit (unrecogniz ed section and content) Reason Comments Urinary Problem burning with urinati on, cough, congestion and wheezing x 1 day Reason Comments Results, Lab Results Reason Comments Results Reason Comments Nausea & Vomiting Fever started today Care Teams (unrecognized sec tion and content) Spray Applicator Relationship Specialty Start Date End Date Rocky Barlow Chi [address] [place], [place] [address] PCP - General Family Practice 09/24/12 Bartolo Philippe [facility] [place], [place] [id number] Referring Ophthalmology 12/30/18 Spray Applicator Relationship Specialty Start Date End Date Rocky Barlow Chi [address] [place], [place] [id number] PCP - General Family Practice 09/24/12 Bartolo Philippe [address] [place] [address] Referring Ophthalmology 12/30/18 Spray Applicator Relationship Specialty Start Date End Date Rocky Barlow Chi [address] [place] [address] PCP - General Family Practice 09/24/12 Bartolo Philippe [facility] [place] [address] Referring Ophthalmology 12/30/18 Team Status: Active Member [...] August 10, 2024 End: August 10, 2024 Spray Applicator Relationship Specialty Start Date End Date Rocky Barlow Chi [address] [id number] PCP - General Family Medicine 09/24/12 Bartolo Philippe MD [address] [place], [place] [phone] (work) Referring Ophthalmology 12/30/18 FOR RECORDS PERTAINING [...] BE BASED ON THE PRIMARY CLINICAL RECORDS. [email or web address] [facility]. provides no warranty or guarantee of the accuracy or completeness of information in this document.
[2024-09-05 14:57] LABS: Partial Thromboplast Time 27.9 Seconds (24.1-36.2); Prothrombin Time (Protime)PT. 13.6 SECONDS (11.7-14.9)
[2024-09-05 15:33] LABS: Hematocrit 38.9 % (37-47); Hemoglobin 13.1 g/dL (12.0-15.0)
[2024-09-05 20:09] LABS: Hematocrit 39.8 % (37-47); Hemoglobin 13.4 g/dL (12.0-15.0)
[2024-09-05] MEDS: 0.9% Normal Saline (250mL Bag) 250 ML 15 ML IV (21:49)
[2024-09-05] MEDS: 0.9% Saline Lock 10 ML Syringe IV (21:53)
[2024-09-06] VITALS (11 sets, daily range): BP systolic 81–127; BP diastolic 50–99; PULSE 72–100; RESP 14–18; TEMP 36.1–36.8; O2SAT 92–100; BMI 26.4
[2024-09-06 02:45] LABS: Hematocrit 36.6 % (37-47); Hemoglobin 12.2 g/dL (12.0-15.0)
--- NOTE | 2024-09-06 05:55 | EKG12_ITS ---
Test Reason : am ekg Blood Pressure : */* mmHG Vent. Rate : 78 BPM Atrial Rate : 78 BPM P-R Int : 130 ms QRS Dur : 58 ms QT Int : 388 ms P-R-T Axes : 1 26 28 degrees QTcB Int : 442 ms Normal sinus rhythm Normal ECG Confirmed by ALISHA LEVY, VANGIE ([id number]), index editor GERRI ARMIJO ([id number]) on 09/07/2024 1:37:55 PM Referred By: Seth Confirmed By: VANGIE BRITO MD
[2024-09-06 06:01] LABS: Hematocrit 36.6 % (37-47); Hemoglobin 12.1 g/dL (12.0-15.0); Immature Granulocytes Count 0.020 X10^3/uL (0.0-0.0); Mean Corp Hgb Conc 33.1 g/dL (32-36); Mean Corpuscular Volume 96.8 fL (81-99); Mean Platelet Vol. 11.0 fl (6.2-12.0); NRBC Flagged by Analyzer 0 % (0-5); Platelet Count 270 K/mm3 (150-450); RBC Distribution Width CV 13.8 % (11.6-14.6); RBC Distribution Width SD 49.1 fl (35.1-43.9); Red Blood Count 3.78 M/mm3 (4.2-5.4); White Blood Count 7.0 K/mm3 (4.4-11.0)
[2024-09-06 06:25] LABS: Magnesium 1.9 mg/dL (1.5-2.2)
[2024-09-06 06:32] LABS: AST(SGOT) 13 U/L (<=31); Alanine Aminotransfer ALT/SGPT < 5 U/L (<=34); Albumin, Serum 3.5 g/dL (3.4-4.8); Alkaline Phosphatase 80 U/L (35-104); Anion Gap 10 (5-15); BUN 7 mg/dL (4-19); BUN/Creat Ratio 14.4 RATIO (10-20); Calcium,Total 8.9 mg/dL (7.6-11.0); Carbon Dioxide 24.4 mmol/L (21.0-32.0); Chloride 108 mmol/L (98-108); Estimated Creatinine Clearance 92.72 ml/min (50-250); Globulin 2.6 g/dL (2.2-4.2); Glucose 99 mg/dL (70-99); Potassium 3.7 mmol/L (3.3-5.1)
--- NOTE | 2024-09-06 07:22 | PN.HOSP_ITS ---
Reason for Visit Reason for Visit: Hematemesis Subjective Subjective No issues overnight. Patient has been relatively stable. No further hematemesis. Hemoglobin did drop some but seems to be stabilizing. Plan is for EGD today. Objective Data Objective Data Vital Signs: Vital Signs Temp Pulse Resp BP Pulse Ox O2 Del Method 97.7 F L 81 18 113/56 L 93 Room Air 09/06/24 03:14 09/06/24 03:14 09/06/24 03:14 09/06/24 03:14 09/06/24 03:14 09/06/24 03:14 Oxygen Delivery Method Room Air Weight: 56.699 kg Body Mass Index (BMI) 24.4 Intake & Output: Intake and Output for Last 24 Hours 09/04/24 09/05/24 09/06/24 23:59 23:59 23:59 Intake Total 450 / 450 200 / 200 Output Total 900 / 900 Balance 450 / 450 -700 / -700 Lab / Micro Data 09/06/24 11:25 09/06/24 05:31 Labs: Laboratory Results - last 24 hr 09/05/24 08:16: WBC 12.1 H, RBC 4.34, Hgb 13.9, Hct 41.2, MCV 94.9, MCH 32.0, MCHC 33.7, RDW Std Deviation 47.7 H, RDW Coeff of Handy 13.5, Plt Count 263, MPV 11.2, Immature Gran % (Auto) 0.200, Neut % (Auto) 62.1, Lymph % (Auto) 28.4, [place] % (Auto) 6.0, Eos % (Auto) 2.5, Baso % (Auto) 0.8, Absolute Neuts (auto) 7.5, Absolute Lymphs (auto) 3.45, Nucleated RBC % 0, PT 13.6, INR 1.0, APTT 27.9, Sodium 140, Potassium 4.2, Chloride 104, Carbon Dioxide 24.1, Anion Gap 12, BUN 10, Creatinine 0.47 L, Est GFR (MDRD) Non-Af 107, BUN/Creatinine Ratio 22.1 H, Glucose 105 H, Calcium 9.0, Total Bilirubin 0.39, AST 15, ALT 5, Alkaline Phosphatase 86, Total Protein 6.9, Albumin 3.8, Globulin 3.1, Albumin/Globulin Ratio 1.2, Blood Type Cancelled, Antibody Screen Cancelled 09/05/24 09:15: Blood Type A POSITIVE, Antibody Screen NEGATIVE 09/05/24 12:25: Hgb 12.6, Hct 36.8 L 09/05/24 14:55: Hgb 13.1, Hct 38.9 09/05/24 20:00: Hgb 13.4, Hct 39.8 09/06/24 02:32: Hgb 12.2, Hct 36.6 L 09/06/24 05:31: WBC 7.0, RBC 3.78 L, Hgb 12.1, Hct 36.6 L, MCV 96.8, MCH 32.0, MCHC 33.1, RDW Std Deviation 49.1 H, RDW Coeff of Handy 13.8, Plt Count 270, MPV 11.0, Immature Gran % (Auto) 0.300, Neut % (Auto) 49.8, Lymph % (Auto) 40.6, [place] % (Auto) 5.8, Eos % (Auto) 2.8, Baso % (Auto) 0.7, Absolute Neuts (auto) 3.5, Absolute Lymphs (auto) 2.85, Nucleated RBC % 0, Sodium 142, Potassium 3.7, Chloride 108, Carbon Dioxide 24.4, Anion Gap 10, BUN 7, Creatinine 0.49 L, Estim Creat Clear Calc 92.72, Est GFR (MDRD) Non-Af 106, BUN/Creatinine Ratio 14.4, Glucose 99, Calcium 8.9, Phosphorus 3.4, Magnesium 1.9, Total Bilirubin 0.53, AST 13, ALT < 5, Alkaline Phosphatase 80, Total Protein 6.1, Albumin 3.5, Globulin 2.6, Albumin/Globulin Ratio 1.4, TSH 2.270 Physical Exam Const alert, no apparent distress, average body habitus and well nourished Constitutional Narrative: Older, white female, lying in bed, does not appear to be in distress or toxic, mother at bedside, patient is nonverbal at baseline however she does follow commands consistently General Appearance: cooperative HEENT normocephalic and head/scalp atraumatic HEENT Narrative: Dentition is poor, Mallampati is 3, no thrush Resp normal respiratory effort, no retractions, no use of accessory muscles and clear to auscultation bilaterally Auscultation: Negative for rales, rhonchi or wheezes Cardio regular rate, regular rhythm, S1 normal heart sound, S2 normal heart sound, no murmurs, no rub, no gallops and no clicks GI normal to inspection, nondistended, normoactive bowel sounds, soft to palpation and non-tender Extremity no clubbing, cyanosis or edema Extremity Narrative: Extremities upper and lower extremities are contracted with no significant edema, pedal pulses are 2+, radial pulses are 2+ Neuro Neuro Narrative: Is able to move all 4 extremities but limited due to contractures, patient is wheelchair-bound at baseline, nonverbal baseline Speech: Negative for speech normal Psych Psych Narrative: Calm Assessment & Plan Assessment/Plan (1) Hematemesis: PLAN: Plan Hematemesis - Patient with 2 episodes of melena witnessed of hematemesis - No further episodes but hemoglobin 12.1 down from 13.9 - Continue n.p.o. - Continue Protonix IV twice daily - EGD input is pending however I do suspect EGD later today Leukocytosis - Resolved History of PE - Remote - Hold apixaban for now while concern of GI bleed - Will restart apixaban as soon as possible History of Arias's esophagus/GERD - Hold home omeprazole - IV PPI twice daily Hypothyroidism -continue home levothyroxine Seasonal allergies - Continue home loratadine - restart eyedrops at discharge as they are nonformulary here - Continue hydrating drops Cerebral palsy - Currently resides in a snf Depression - Continue home citalopram - Continue home mirtazapine 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
[2024-09-06] MEDS: Pantoprazole Sodium 40 MG in 0.9% Normal Saline (100mL MB+) 100 ML 330 MG IV ×2 (11:02→21:06)
[2024-09-06] MEDS: 0.9% Saline Lock 10 ML Syringe IV (11:02)
[2024-09-06 11:32] LABS: Hematocrit 37.4 % (37-47); Hemoglobin 12.2 g/dL (12.0-15.0)
--- NOTE | 2024-09-06 12:19 | PCM.PN.BLA ---
Progress Note 64-year-old female history of MRDD lives in an apartment has caregivers. She has a history of Arias's esophagus. She also has a history of iron deficiency anemia, on iron and vitamin C. She also has a history of atrial fibrillation and cardiomyopathy on Eliquis. She is also status post permanent pacemaker. As per the POA she started having coffee-ground emesis about a week ago. She came into the ED yesterday because she had another episode of coffee-ground emesis. I was asked to see her for treatment of upper GI bleed. Physical Exam Const alert, no apparent distress, average body habitus and well nourished Constitutional Narrative: Older, white female, lying in bed, does not appear to be in distress or toxic, caregiver at bedside General Appearance: cooperative Eyes conjunctivae normal Eyes Narrative: No scleral icterus Resp normal respiratory effort, no retractions, no use of accessory muscles and clear to auscultation bilaterally Auscultation: Negative for rales, rhonchi or wheezes Cardio regular rate, regular rhythm, S1 normal heart sound, S2 normal heart sound, no murmurs, no rub, no gallops and no clicks GI normal to inspection, nondistended, normoactive bowel sounds, soft to palpation and non-tender Visit Charges Inpatient E&M: 60167 Subs Hosp L2
[2024-09-06] MEDS: Lactated Ringers 1,000 ML 15 ML IV (12:25)
--- NOTE | 2024-09-06 12:53 | PRE.ANES_ITS ---
ASA Classification* ASA Classification ASA Classification: 3 Assessment & Plan Anesthesia* Anesthesia Assessment Anesthesia Assessment: Discussed sedation and/or anesthesia options, risks, benefits, and alternatives with patient/parents/legal guardian/POA. Questions invited. The patient/parents/legal guardian/POA seems to understand and agrees to proceed with anesthesia plan. Reviewed the physical assessment, medical history, allergy history and patient home medications list prior to surgery/procedure/anesthetic and documented any changes. Performed airway and anesthesia risk assessments. Anesthesia Type Anesthesia Type: MAC History Source History Obtained from:: Patient and Chart Anesthesia Focused Assessment* Temperature: 97.8 F Pulse Rate: 84 Blood Pressure: 104/78 Respiratory Rate: 18 Pulse Ox: 94 Oxygen Delivery Method: Room Air Airway Assessment Mouth opens: >3 cm Mallampati Score: IV Teeth Condition: Intact and Missing (Patient missing several teeth.) Neck Range of motion (ROM): Limited ROM (Somewhat decreased extension) Labs Anesthesia Preop lab: CBC WBC 7.0 K/mm3 (4.4-11.0) 09/06/24 05:09/06/24 RBC 3.78 M/mm3 (4.2-5.4) L 09/06/24 05:31 09/06/24 Hgb 12.2 g/dL (12.0-15.0) 09/06/24 11:25 09/06/24 Hct 37.4 % (37-47) 09/06/24 11:25 09/06/24 Plt Count 270 K/mm3 (150-450) 09/06/24 05:09/06/24 CHEMISTRY Potassium 3.7 mmol/L (3.3-5.1) 09/06/24 05:31 09/06/24 Sodium 142 mmol/L (133-145) 09/06/24 05:09/06/24 Magnesium 1.9 mg/dL (1.5-2.2) 09/06/24 05:09/06/24 Phosphorus 3.4 mg/dL (2.7-4.5) 09/06/24 05:09/06/24 BUN 7 mg/dL (4-19) 09/06/24 05:09/06/24 Creatinine 0.49 mg/dL (0.70-1.20) L 09/06/24 05:31 Glucose 99 mg/dL (70-99) 09/06/24 05:31 09/06/24 TSH 2.270 uIU/mL (0.300-4.200) 09/06/24 05:31 06 COAG PT 13.6 SECONDS (11.7-14.9) 09/05/24 08:16 Pre-Assessment Diagnosis/Proposed Procedure Planned Operative Procedure(s): EGD, with possible cautery and/or injection therapy. 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 When Was Last Pacemaker Check QUESTION #4 FULL TEXT: You/Your Family Experience fever (hyperthermia) with Anesthesia Last Oral Intake Last Oral intake: Last Oral Intake NPO since 00:00 09/06/24 11:42 Meds taken in AM with sips of No 09/06/24 11:42 water? Meds patient instructed to take am of surgery PONV PONV - tank house operator: PONV - tank house operator Female HX of Motion Sickness HX of N/V After Surgery Non-Smoker Duration of Surgery greater than 60 minutes Number of Risk Factors PONV Score Height & Weight Height & Weight: Anesthesia: Height & Weight Height 5 ft 09/06/24 12:01 Weight: 61.28 kg 09/06/24 12:01 Body Mass Index (BMI) 26.4 09/06/24 11:42 Respiratory Assessment Respiratory Assessment - tank house operator: Respiratory Tract Infection Hx - tank house operator Hx Respiratory Tract Infection No 09/05/24 20:03 STOP Sleep Apnea STOP Sleep Apnea - tank house operator: STOP Sleep Apnea - tank house operator Hx Hypertension Yes 09/06/24 10:19 Hx Sleep Apnea Yes 09/05/24 15:39 CPAP No 09/05/24 15:39 BIPAP No 09/05/24 15:39 Do you snore loudly (louder than talking or can be heard Do you often feel tired/ fatigued/ sleepy during daytime? Has anyone observed you stop breathing during sleep? STOP Results Positive 09/05/24 15:39 QUESTION #5 FULL TEXT : Do you snore loudly (louder than talking or can be heard through closed doors)? Tobacco Use History Tobacco Use History - tank house operator: Tobacco Use History - tank house operator Tobacco Use Smoking Status Never smoker 09/05/24 15:39 Hx Tobacco Use No 09/05/24 15:39 Years Smoking Packs Smoked per Day Smoking Cessation Date was within the last 15 years Hx Smoking Cessation Date Hx Smoking Cessation Counseling Hematologic Medial History Hematologic Hx - tank house operator: Hematologic Medical Hx - invertebrate paleontologist Hx of Blood Transfusion No 09/05/24 15:39 Hx of Transfusion in last 3 No 09/05/24 15:39 Months Date of Last Transfusion (if within last 3 months) Ever experience any problems No 09/05/24 15:39 with transfusion(s)? Specify any problems Hx of Preganancy in last 3 N/A 09/05/24 15:39 Months Nurse Filling Out Transfusion TWOLF 09/05/24 15:39 & Questions: Date: 09/05/24 09/05/24 15:39 Time: 15:40 09/05/24 15:39 Patient unable to answer at this time (ie. confused, unrespo /Reproduction History /Reproductive History - tank house operator: /Reproductive Hx- tank house operator Hx Now Gestational Age (in weeks): EDC: Hx Hx Para Hx Section SAB Active Medications Active Medications: Current Medications Generic Name Dose Route Start Last Admin Trade Name Freq PRN Reason Stop Dose Admin Acetaminophen 500 mg 09/05/24 15:19 Acetaminophen 650 Mg/20 Ml Udc PO Q6H PRN fever or pain 1-10 Albuterol/Ipratropium 3 ml 09/05/24 14:12 Ipratropium/Albuterol Sulfate 3 Ml Ampul.Neb INHALATION Q4H PRN shortness of breath or wheezing Artificial Tears 1 drp 09/05/24 14:25 Carboxymethylcellulose Sodium 15 Ml Ophth Drops EACH EYE 5X/DAY PRN dry eye(s) Artificial Tears 1 drp 09/05/24 22:00 09/06/24 08:31 Carboxymethylcellulose Sodium 15 Ml Ophth Drops EACH EYE Not Given TID [facility] Ascorbic Acid 500 mg 09/06/24 08:00 Ascorbic Acid 500 Mg Tablet PO DAILY@0800 [facility] Cholecalciferol 25 mcg 09/06/24 08:00 Cholecalciferol (Vit D3) 25 Mcg Tablet (1,000 Units) PO DAILY@0800 [facility] Citalopram Hydrobromide 10 mg 09/06/24 10:00 Citalopram 10 Mg Tablet PO DAILY [facility] Citalopram Hydrobromide 20 mg 09/06/24 10:00 Citalopram 20 Mg Tablet PO DAILY [facility] Docusate Sodium 100 mg 09/06/24 10:00 Docusate Sodium 100 Mg Capsule PO QODAY [facility] Ferrous Gluconate 324 mg 09/06/24 08:00 Ferrous Gluconate 324 Mg Tablet PO DAILY@0800 [facility] Pantoprazole Sodium 40 mg/ 100 mls @ 300 mls/hr 09/05/24 22:00 09/06/24 11:25 Sodium Chloride IV Infused Q12 STEVO Infusion Sodium Chloride 250 mls @ 15 mls/hr 09/05/24 14:27 09/06/24 11:40 IV 0 mls/hr .[id number] PRN Infusion Saline Flush Sodium Chloride 250 mls @ 15 mls/hr 09/05/24 14:27 IV .[id number] PRN Additional IVPB Infusion Lactated Ringer's 1,000 mls @ 15 mls/hr 09/06/24 12:15 09/06/24 12:25 IV 15 mls/hr .Q48H STEVO Administration Levothyroxine Sodium 50 mcg 09/06/24 06:00 09/06/24 06:22 Levothyroxine 50 Mcg Tablet PO Not Given DAILY@0600 [facility] Loratadine 10 mg 09/06/24 08:00 Loratadine 10 Mg Tablet PO DAILY@0800 [facility] Melatonin 3 mg 09/05/24 14:12 Melatonin 3 Mg Tablet PO QHS PRN PRN INSOMNIA Mirtazapine 7.5 mg 09/05/24 20:00 09/05/24 20:06 Mirtazapine 15 Mg Tablet PO 7.5 mg QHS@1999 STEVO Administration Ondansetron HCl 4 mg 09/05/24 14:12 Ondansetron 4 Mg/2 Ml Vial IV Q8H PRN PRN NAUSEA/VOMITING Sodium Chloride 10 - 40 ml 09/05/24 14:27 09/06/24 11:02 0.9% Saline Lock 10 Ml Syringe IV 10 ml UD PRN Administration SALINE FLUSH PFSH Medical History Diarrhea Nausea Intellectual developmental disorder, severe Urinary incontinence History of aspiration pneumonia Sore throat Hypothyroidism Cerebral palsy History of airway aspiration Health care maintenance Anxiety and depression History of pulmonary embolism Gastroenteritis URI (upper respiratory infection) neurostimulater Pacemaker metal gavi rt leg Hyperlipidemia Insomnia Fecal impaction Barretts esophagus Pulmonary embolism Vitamin D deficiency Allergic rhinitis GERD (gastroesophageal reflux disease) Depression Home Medications ?Medication ?Instructions ?Recorded ?Last Taken ?Type loratadine 10 mg tablet 10 mg PO DAILY@0800 ALLERGIE S 09/10/14 01/02/22 History mirtazapine 7.5 mg tablet 7.5 mg PO QHS@1999 DEPRESSIO N 05/19/17 01/01/22 History azelastine 0.05 % eye drops 0.05 drp EACH EYE BID@0808/08/18 01/02/22 History DRY EYES apixaban 5 mg tablet 5 mg PO BID BLOOD THINNER 01/02/22 History ascorbic acid (vitamin C) 500 mg 500 mg PO DAILY@0800 SUPPLEMENT 01/02/22 01/02/22 History tablet carboxymethylcellulose sodium 0.5 1 drp EACH EYE TID 1 01/02/22 History % eye drops (Refresh Tears) cholecalciferol (vitamin D3) 25 25 mcg PO DAILY@0800 S UPPLEMENT 01/02/22 01/02/22 History mcg (1,000 unit) chewable tablet (Vitamin D3) ferrous gluconate 324 mg (38 mg 324 mg PO DAILY@0800 S UPPLEMENT 01/02/22 01/02/22 History iron) tablet levothyroxine 50 mcg tablet 50 mcg PO DAILY@0600 THYRO ID 01/02/22 01/02/22 History omeprazole 40 mg capsule,delayed 40 mg PO DAILY@0700 G ERD 01/02/22 01/02/22 History release ondansetron 4 mg disintegrating 4 mg PO TID PRN nausea and 06/13/23 Unknown Rx tablet vomiting #21 tabs GENERAL PROTECTION LOTION 1 dose topical 4X/DAY PRN sk in 07/31/23 Unknown History protection acetaminophen 160 mg/5 mL oral 500 mg PO Q6H PRN fever or pain 07/31/23 Unknown History elixir bisacodyl 10 mg/30 mL enema (Fleet 5 mg WI DAILY PRN c onstipation 07/31/23 Unknown History Bisacodyl) bismuth subsalicylate 525 mg/15 mL 1,050 mg PO .4X KRISTIN LY PRN diarrhea 07/31/23 Unknown History oral suspension (Pepto-Bismol Max St) carboxymethylcellulose sodium 0.5 1 drp ophthalmic (ey e) 4-6XD PRN 07/31/23 Unknown History % eye drops (Refresh Tears) dry eye(s) citalopram 10 mg tablet 10 mg PO DAILY 07/31/23 Unkn own History citalopram 20 mg tablet 20 mg PO DAILY 07/31/23 Unkn own History ipratropium 0.5 mg-albuterol 3 mg 3 ml inhalation Q4H PRN shortness 07/31/23 Unknown History (2.5 mg base)/3 mL nebulization of breath or wheezing soln terbinafine HCl 1 % topical cream 1 applic topical BID PRN redness 10/08/23 Unknown History irrit docusate sodium 100 mg capsule 100 mg PO Q OTHER DAY # 15 caps 07/03/24 Unknown Rx Allergy/AdvReac Type Severity Reaction Status Date / Time amoxicillin trihydrate (From AdvReac Unknown Verified 08/10/24 14:57 Augmentin) potassium clavulanate (From AdvReac Unknown Verified 08/10/24 14:57 Augmentin) Family History Father Pulmonary embolism Alcoholism Mother CVA (cerebral vascular accident) Surgical History Hx of cataract removal with insertion of prosthetic lens Social History Smoking Status: Never smoker alcohol intake: current alcohol intake frequency: 0-2 drinks per day substance use type: does not use and other details: THC LAST USED ON 07/20/23 seatbelt use: always Review of Systems (Anesthesia) ROS Narrative System reviewed and no additional complaints, except as documented.
--- NOTE | 2024-09-06 13:15 | EGD_PTH ---
PATIENT: SUNNI GUIDRY LOC: MS3 U#:[id number] AGE/SX: 64/F ROOM: [facility] [place] [facility] [place]09/05/[address]: Dr. Jeni Ann DO : 1960 BED: 1 DIS: 09/07/2024 SPEC #: [id number] RECD: 09/07/24 10:25 STATUS: LOIDA YOU #: [id number] DANIEL: 09/06/24 13:[address]: Ra Bamhsaan DEPT: SURGICAL PATHOLOGY RECD BY: Arturo Sykes ENTERED: 09/07/24 12:50 SP TYPE: EGD BIOPSY BERNY DR: MD Dr. Jeni Rivers DO Tissues: A - Esophagus, NOS Procedures: Surgery Specimen Level IV HEADER OPERATION: EGD with biopsy PRE-OP DIAGNOSIS: Hematemesis TISSUE SUBMITTED: A- Distal esophagus biopsy MICROSCOPIC DIAGNOSIS A. Distal esophagus, biopsy: - Arias mucosa negative for dysplasia. MICROSCOPIC DESCRIPTION Slides are reviewed. GROSS DESCRIPTION A. Received in fixative is one container labeled with the patient's name and designated Distal esophagus biopsy. The specimen consists of three irregular fragments of light south soft tissue that in aggregate measure 0.1 to 0.5 cm. The specimen is totally submitted in one cassette. GERARDO/ 09/07/2024 CPT:31130
--- NOTE | 2024-09-06 13:43 | OP.EGD_ITS ---
Patient Name: Tonya Fletcher Procedure Date: 09/06/2024 1:13 PM Date of : 1960 Age: 64 Procedure: Upper GI endoscopy Indications: Coffee-ground emesis Providers: Stalin Kuhn DO Medicines: Monitored Anesthesia Care Patient Profile: This is a 64 year old female. Refer to note in patient chart for documentation of history and physical. Patient has symptoms of acute nausea and acute vomiting. Complications: No immediate complications. Procedure: Pre-Anesthesia Assessment: - Prior to the procedure, a History and Physical was performed, and patient medications and allergies were reviewed. The patient is competent. The risks and benefits of the procedure and the sedation options and risks were discussed with the patient. All questions were answered and informed consent was obtained. Patient identification and proposed procedure were verified by the physician in the pre-procedure area. Mental Status Examination: alert and oriented. Airway Examination: normal oropharyngeal airway and neck mobility. Respiratory Examination: clear to auscultation. CV Examination: normal. Prophylactic Antibiotics: The patient does not require prophylactic antibiotics. Prior Anticoagulants: The patient has taken no anticoagulant or antiplatelet agents except for NSAID medication. ASA Grade Assessment: II - A patient with mild systemic disease. After reviewing the risks and benefits, the patient was deemed in satisfactory condition to undergo the procedure. The anesthesia plan was to use monitored anesthesia care (MAC). Immediately prior to administration of medications, the patient was re-assessed for adequacy to receive sedatives. The heart rate, respiratory rate, oxygen saturations, blood pressure, adequacy of pulmonary ventilation, and response to care were monitored throughout the procedure. The physical status of the patient was re-assessed after the procedure. After obtaining informed consent, the endoscope was passed under direct vision. Throughout the procedure, the patient's blood pressure, pulse, and oxygen saturations were monitored continuously. The Endoscope was introduced through the mouth, and advanced to the third part of the duodenum. Small bowel enteroscopy was deemed necessary. The upper GI endoscopy was accomplished without difficulty. The patient tolerated the procedure well. Scope In: 1:29:34 PM Scope Out: 1:33:46 PM Total Procedure Duration Time 0 hours 4 minutes 12 seconds Findings: LA Grade D (one or more mucosal breaks involving at least 75% of esophageal circumference) esophagitis with no bleeding was found 34 to 40 cm from the incisors. There were esophageal mucosal changes secondary to established long-segment Arias's disease present in the middle third of the esophagus and in the lower third of the esophagus. The maximum longitudinal extent of these mucosal changes was 15 cm in length. Mucosa was biopsied with a cold forceps for histology in a targeted manner at intervals of 1 cm in the lower third of the esophagus. One specimen bottle was sent to pathology. Verification of patient identification for the specimen was done. Estimated blood loss was minimal. No gross lesions were noted in the entire examined stomach. A large hiatal hernia was present. No gross lesions were noted in the third portion of the duodenum. Impression: - LA Grade D erosive esophagitis with no bleeding. 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 Biopsied. - No gross lesions in the entire stomach. - Large hiatal hernia. - No gross lesions in the third portion of the duodenum. Recommendation: - Return patient to [facility] for ongoing care. - Full liquid diet. - Continue present medications. Procedure Code(s): --- Professional --- 70469, Small intestinal endoscopy, enteroscopy beyond second portion of duodenum, not including ileum; with biopsy, single or multiple CPT copyright 2021 [employer]. All rights reserved. The codes documented in this report are preliminary and upon rail car loader review may be revised to meet current compliance requirements. Stalin Kuhn DO 09/06/2024 1:43:16 PM This report has been signed electronically. Number of Addenda: 0 Note Initiated On: 09/06/2024 1:13 PM
--- NOTE | 2024-09-06 13:43 | OP.CCLET_ITS ---
09/06/2024 Michelle Marroquin MD [address] [place] [address] [place] [address] Re : Upper GI endoscopy procedure for Tonya Fletcher Dear Dr. Marroquin This procedure was performed on Friday, September 06, 2024. My impressions and recommendations are as follows: Impressions : - LA Grade D erosive esophagitis with no bleeding. 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 Biopsied. - No gross lesions in the entire stomach. - Large hiatal hernia. - No gross lesions in the third portion of the duodenum. Recommendations : - Return patient to [facility] for ongoing care. - Full liquid diet. - Continue present medications. My findings are described in the full procedure note, which is enclosed. If I can be of further assistance, please feel free to contact me at . Sincerely, Stalin Kuhn, 09/06/2024 1:43:16 PM This report has been signed electronically.
--- NOTE | 2024-09-06 13:44 | PCM.POST.ANE ---
Anesthesia: Postop Eval I Current Vital Signs Temperature: 97 F Pulse Rate: 90 Blood Pressure: 101/50 Respiratory Rate: 16 Pulse Ox: 94 Assessment Airway patent: Yes Spontaneous unlabored respirations: Yes nausea: No Vomiting: No Anesthesia Complication: No Fluid Hydration Crystalloid volume administer (ml): 400 Total IV fluid infused: 400 Progress Note Anesthesia document: Postop Eval 1 completed: Yes
[2024-09-06] MEDS: Cholecalciferol (VIT D3) 25 MCG TABLET (1,000 UNITS) PO (14:41)
--- NOTE | 2024-09-06 14:41 | CASEMGMT ---
Social Work- MARIANNE spoke with Maria E, pt legal guardian, to coordinate discharge planning. Maria E reports that the plan is to return to the senior care. Jesica is the warranty manager of the senior care and the point of contact for d/c planning. Jesica [phone]. MARIANNE called Jesica; Jesica reports she is on her way to the hospital and will be available to coordinate at that time. YAKOV Scruggs
[2024-09-06] MEDS: CARBOXYMETHYLCELLULOSE SODIUM 15 ML OPHTH DROPS 1 DRP EACH EYE ×2 (14:42→21:06)
--- NOTE | 2024-09-06 16:45 | POSTOPAN2_ITS ---
Anesthesia Postop Eval I Sum Postop Eval Completion status Anesthesia document: Postop Eval 1 completed: Yes Anesthesia Postop Eval I Summary Anesthesia Postop Eval I Summary: Anesthesia Postop Eval I: Assessment Summary Airway patent Yes 09/06/24 13:44 [email or web address] Spontaneous unlabored Yes 09/06/24 13:44 CANAL [email or web address] [email or web address] respirations Mental status nausea No 09/06/24 13:44 CANAL [email or web address] Vomiting No 09/06/24 13:44 CANAL [email or web address] [email or web address] Anesthesia Postop Eval I: Fluid Summary Crystalloid volume administer 400 09/06/24 13:44 CANAL [email or web address] (ml) Colloids volume administered ( ml) Blood Product volume administered (ml) Total IV fluid infused 400 09/06/24 13:44 CANAL [email or web address] Anesthesia Postop Eval I: Summary Notes Anesthesia Complication No 09/06/24 13:44 CANAL [email or web address] Anesthesia Complication Comment: Post-operative progress note Anesthesia: Postop Eval II Evaluation Mental status: Awake Pain Level: 1 nausea: No Vomiting: No
--- NOTE | 2024-09-06 16:45 | PCM.POSTANE2 ---
Anesthesia Postop Eval I Sum Postop Eval Completion status Anesthesia document: Postop Eval 1 completed: Yes Anesthesia Postop Eval I Summary Anesthesia Postop Eval I Summary: Anesthesia Postop Eval I: Assessment Summary Airway patent Yes 09/06/24 13:44 [email or web address] Spontaneous unlabored Yes 09/06/24 13:44 PRODUCTION [email or web address] respirations Mental status nausea No 09/06/24 13:44 PRODUCTION [email or web address] Vomiting No 09/06/24 13:44 PRODUCTION [email or web address] Anesthesia Postop Eval I: Fluid Summary Crystalloid volume administer 400 09/06/24 13:44 PRODUCTION [email or web address] (ml) Colloids volume administered ( ml) Blood Product volume administered (ml) Total IV fluid infused 400 09/06/24 13:44 PRODUCTION [email or web address] Anesthesia Postop Eval I: Summary Notes Anesthesia Complication No 09/06/24 13:44 PRODUCTION [email or web address] Anesthesia Complication Comment: Post-operative progress note Anesthesia: Postop Eval II Evaluation Mental status: Awake Pain Level: 1 nausea: No Vomiting: No
[2024-09-07 05:26] VITALS: BP 114/81; PULSE 65; RESP 18; TEMP 36.2; O2SAT 96; BMI 27.0
[2024-09-07] MEDS: CARBOXYMETHYLCELLULOSE SODIUM 15 ML OPHTH DROPS 1 DRP EACH EYE (06:47)
[2024-09-07 06:49] LABS: Hematocrit 35.5 % (37-47); Hemoglobin 11.7 g/dL (12.0-15.0); Mean Corp Hgb Conc 33.0 g/dL (32-36); Mean Corpuscular Volume 96.5 fL (81-99); Mean Platelet Vol. 10.9 fl (6.2-12.0); Platelet Count 249 K/mm3 (150-450); RBC Distribution Width CV 13.9 % (11.6-14.6); RBC Distribution Width SD 49.5 fl (35.1-43.9); Red Blood Count 3.68 M/mm3 (4.2-5.4); White Blood Count 6.6 K/mm3 (4.4-11.0)
[2024-09-07 07:00] VITALS: BMI 27.6
[2024-09-07 07:17] LABS: Anion Gap 9 (5-15); BUN 7 mg/dL (4-19); BUN/Creat Ratio 14.1 RATIO (10-20); Calcium,Total 8.3 mg/dL (7.6-11.0); Carbon Dioxide 24.0 mmol/L (21.0-32.0); Chloride 107 mmol/L (98-108); Estimated Creatinine Clearance 101.08 ml/min (50-250); Glucose 107 mg/dL (70-99); Potassium 3.9 mmol/L (3.3-5.1)
[2024-09-07 07:45] VITALS: BP 119/65; PULSE 68; RESP 18; TEMP 36.6; O2SAT 98
[2024-09-07] MEDS: Cholecalciferol (VIT D3) 25 MCG TABLET (1,000 UNITS) PO (08:37)
--- NOTE | 2024-09-07 12:30 | NURSING ---
talked with Dr. Ann then talked with Flavio in lab aware tech is suppose to be redrawing labs- Flavio updated that we are looking for repeat Hgb for discharge purposes. Talked with Suma RN- updated that would like notified when lab Hgb results.
[2024-09-07 12:53] LABS: Hemoglobin 12.9 g/dL (12.0-15.0)
--- NOTE | 2024-09-07 13:00 | DS.PCM_ITS ---
Providers Date of Admission: 09/05/24 Date of Discharge: 09/07/24 Primary Care Physician: Dr. Michelle Marroquin MD Consultations 09/05/24 14:12 Consult: Gastroenterology Routine Consulting Provider: [facility] Reason for Consult: GI bleed EMERGENT Consult: No MD Notified: Yes Date Notified: 09/05/24 Time Notified: 13:40 Method of Notification: Text Reason For Visit: HEMETEMSIS Diagnosis Discharge Diagnosis (1) Hematemesis: Status: Acute Code(s): K92.0 - Hematemesis Medications at Discharge Home Medications loratadine 10 mg tablet 10 mg PO DAILY@0800 ALLERGIES 09/10/14 mirtazapine 7.5 mg tablet 7.5 mg PO QHS@1999 DEPRESSION 05/19/17 azelastine 0.05 % eye drops 0.05 drp EACH EYE BID@0800,1999 DRY EYES 08/08/18 apixaban 5 mg tablet 5 mg PO BID BLOOD THINNER 11/23/18 Held on 09/07/24. Instructions: Resume on 09/10/24. ascorbic acid (vitamin C) 500 mg tablet 500 mg PO DAILY@0800 SUPPLEMENT 01/02/22 carboxymethylcellulose sodium 0.5 % eye drops (Refresh Tears) 1 drp EACH EYE TID 01/02/22 cholecalciferol (vitamin D3) 25 mcg (1,000 unit) chewable tablet (Vitamin D3) 25 mcg PO DAILY@0800 SUPPLEMENT 01/02/22 ferrous gluconate 324 mg (38 mg iron) tablet 324 mg PO DAILY@0800 SUPPLEMENT 01/02/22 levothyroxine 50 mcg tablet 50 mcg PO DAILY@0600 THYROID 01/02/22 ondansetron 4 mg disintegrating tablet 4 mg PO TID PRN nausea and vomiting #21 tabs 06/13/23 GENERAL PROTECTION LOTION 1 dose topical 4X/DAY PRN skin protection 07/31/23 acetaminophen 160 mg/5 mL oral elixir 500 mg PO Q6H PRN fever or pain 07/31/23 bisacodyl 10 mg/30 mL enema (Fleet Bisacodyl) 5 mg ID DAILY PRN constipation 07/31/23 bismuth subsalicylate 525 mg/15 mL oral suspension (Pepto-Bismol Max St) 1,050 mg PO .4X DAILY PRN diarrhea 07/31/23 carboxymethylcellulose sodium 0.5 % eye drops (Refresh Tears) 1 drp ophthalmic (eye) 4-6XD PRN dry eye(s) 07/31/23 citalopram 10 mg tablet 10 mg PO DAILY 07/31/23 citalopram 20 mg tablet 20 mg PO DAILY 07/31/23 ipratropium 0.5 mg-albuterol 3 mg (2.5 mg base)/3 mL nebulization soln 3 ml inhalation Q4H PRN shortness of breath or wheezing 07/31/23 terbinafine HCl 1 % topical cream 1 applic topical BID PRN redness irrit 10/08/23 docusate sodium 100 mg capsule 100 mg PO Q OTHER DAY #15 caps 07/03/24 pantoprazole 40 mg tablet,delayed release 40 mg PO BID #60 tabs 09/07/24 Hospital Course Procedures EGD Summary of Care Provided Minutes Spent on Discharge: 38 Hospital Course: SUNNI GUIDRY, is a 64 F who has a history of MRDD and is nonverbal at baseline and presented to the emergency department at [facility] on 09/05/2024 with caregivers. Evidently, about a week ago they thought she might of had a dark emesis. They saw her primary care physician but she did not have labs done at that time. Today she had another episode that looked black so they brought her to the emergency department. She is anticoagulated baseline for home with Eliquis for history of pulmonary embolus. History is limited as patient cannot participate in giving any review of systems. Vital signs on presentation showed temperature of 96.0, heart rate 84, respiratory 16, blood pressure was 119/71 and pulse ox 90% room air. CBC showed a leukocytosis white count of 12.1 and a hemoglobin of 13.9 with a normal platelet count. Coags were normal. Chemistry panel was unremarkable other than mild hyperglycemia with a glucose of 105 that is nonfasting. Liver functions are normal. The initial plan was to recheck her hemoglobin at noon which we did. If there was a drop we are going to admit her if she was stable regarding discharge sure. Unfortunately her hemoglobin dropped about a gram and a half without being given any IV fluids so there was no concern for hemodilution with IV fluids. Given his drop in her chronic ongoing use of Eliquis for PE we elected to admit her. She was given 1 dose of Protonix in the emergency department and then admitted to the medical floor with twice daily Protonix 40 mg. We followed her hemoglobin which remained relatively stable throughout her hospital course after the initial drop and gastroenterology was consulted. She was taken for EGD on 09/06/2024. EGD showed grade D erosive esophagitis with no bleeding, esophageal mucosal changes consistent with long segment Arias's which was biopsied and a large hiatal hernia. Full liquid diet was reinitiated. We transition to a soft diet and I have instructed her family to start with soft diet for the next 24 to 48 hours and then progressively normalize her diet per her previous prior to admission. Hemoglobin at the time of discharge was stable at 12.9. Biopsies are pending at the time of discharge. Patient is to follow-up with Dr. Kuhn and this appointment was scheduled and given to her on her discharge paperwork prior to discharge. We will discontinue her omeprazole and start Protonix 40 mg p.o. twice daily. She was written for a month supply with [address] Kuhn will decide ongoing PPI therapy after he follows up with her. She also follow-up with her primary care physician in the next 1 to 2 weeks for hospital follow-up. We were going to hold her Eliquis until Friday at which time she can restart which is 09/10/2024. Discharge diagnoses: Hematemesis Severe esophagitis Long segment Arias's Nausea and vomiting Leukocytosis History of PE GERD Hypothyroidism Seasonal allergies CP Depression Chronic debility Physical Exam Const alert, no apparent distress, average body habitus and well nourished Constitutional Narrative: Older, white female, sitting up in bed, appears comfortable, nontoxic, caregiver at bedside General Appearance: cooperative, comfortable, well kempt and well developed Exam Limitations: language barrier and physical limitations HEENT normocephalic, head/scalp atraumatic and moist oral mucous membranes HEENT Narrative: Dentition is poor, Mallampati is 2, no thrush Eyes conjunctivae normal Eyes Narrative: No scleral icterus Neck supple Neck Narrative: Trachea midline, no thyroid enlargement Resp normal respiratory effort, no retractions, no use of accessory muscles and clear to auscultation bilaterally Auscultation: Negative for rales, rhonchi or wheezes Cardio regular rate, regular rhythm, S1 normal heart sound, S2 normal heart sound, no murmurs, no rub, no gallops and no clicks GI normal to inspection, nondistended, normoactive bowel sounds, soft to palpation and non-tender Extremity no clubbing, cyanosis or edema Extremity Narrative: Extremities upper and lower extremities are contracted with no significant edema, pedal pulses are 2+, radial pulses are 2+ Skin skin turgor normal, no jaundice, no petechiae and no mottling Neuro Neuro Narrative: Is able to move all 4 extremities but limited due to contractures, patient is wheelchair-bound at baseline, nonverbal baseline, follows commands and does interact Speech: Negative for speech normal Psych Psych Narrative: Calm Weight / BMI Weight Weight: 63.684 kg Body Mass Index (BMI) 27.6 ABG / Lab / Microbiology Data 09/07/24 12:40 09/07/24 06:33 Laboratory: Laboratory Results - last 24 hr 09/07/24 06:33: WBC 6.6, RBC 3.68 L, Hgb 11.7 L, Hct 35.5 L, MCV 96.5, MCH 31.8, MCHC 33.0, RDW Std Deviation 49.5 H, RDW Coeff of Handy 13.9, Plt Count 249, MPV 10.9, Sodium 140, Potassium 3.9, Chloride 107, Carbon Dioxide 24.0, Anion Gap 9, BUN 7, Creatinine 0.47 L, Estim Creat Clear Calc 101.08, Est GFR (MDRD) Non-Af 107, BUN/Creatinine Ratio 14.1, Glucose 107 H, Calcium 8.3 09/07/24 10:30: Hgb Cancelled 09/07/24 12:40: Hgb 12.9 D/C Instructions Discharge Diet: Light diet - advance as tolerated (Recommend starting with soft foods for the next 24 to 48 hours and then progressing as slowly to her regular diet) Discharge Activity: Return to Normal Activity DC O2, CPAP, BIPAP Needs Home O2 Discharge instructions: No DC home with Oxygen: No Meaningful Use Info Meaningful Use Meaningful Use Diagnoses (Choose all that apply): None applicable Ischemic Stroke Statin Dosing Therapy Reference: STATIN DOSE THERAPY REFERENCE: * Patients > 75 years receive moderate or high dose statin therapy. * Patients 75 years or YOUNGER should receive HIGH intensity statin dose unless contraindicated. You will be required to document reason for non-treatment if statin daily dose does not meet guidelines. HIGH DOSE STATIN THERAPY DAILY Atorvastatin > than or = to 40 mg Rosuvastatin > than or = to 20 mg Amlodipine + Atorvastatin > than or = to 2.5/40 mg Ezetimibe + Simvastatin 10/80 mg Simvastatin 80mg Discharge Plan Admission Admit Date/Time: 09/05/24 13:38 Primary Reason for Your Visit: Hematemesis Attending Provider: Jeni Ann Primary Care Provider: Michelle Marroquin Discharge Orders/Prescriptions Prescriptions: New pantoprazole 40 mg Tablet,Delayed Release (Dr/Ec) 40 mg PO BID Qty: 60 2RF Continued citalopram 20 mg tablet 20 mg PO DAILY Rx Instructions: TAKE WITH 10 MG TAB TO = 30 MG DAILY citalopram 10 mg tablet 10 mg PO DAILY Rx Instructions: TAKE WITH 20 MG TAB TO =30 MG DAILY ipratropium-albuterol 0.5 mg-3 mg(2.5 mg base)/3 mL solution for nebulization 3 ml inhalation Q4H PRN (Reason: shortness of breath or wheezing) Pepto-Bismol Max St 525 mg/15 mL suspension 1,050 mg PO .4X DAILY PRN (Reason: diarrhea) Rx Instructions: FOR UPSET STOMACH; do not exceed 8 doses in a 24 hour period acetaminophen 160 mg/5 mL elixir 500 mg PO Q6H PRN (Reason: fever or pain) Rx Instructions: PAIN OR FEVER>100.1 GENERAL PROTECTION LOTION 1 dose topical 4X/DAY PRN (Reason: skin protection) Rx Instructions: APPLY BEFORE SUN EXPOSURE AND REAPPLY NECESSARY Fleet Bisacodyl 10 mg/30 mL enema 5 mg ID DAILY PRN (Reason: constipation) Rx Instructions: ON DAY FIVE WITHOUT A BOWEL MOVEMENT carboxymethylcellulose sodium [Refresh Tears] 0.5 % drops 1 drp ophthalmic (eye) 4-6XD PRN (Reason: dry eye(s)) Rx Instructions: COMPLAINT OF DRY EYES terbinafine HCl 1 % cream 1 applic topical BID PRN (Reason: redness irrit) Rx Instructions: APPLY UNDER BREAST OR IN SKIN FOLDS FOR REDNESS loratadine 10 MG tablet 10 mg PO DAILY@0800 mirtazapine 7.5 MG tablet 7.5 mg PO QHS@2000 azelastine 6 ML drops 0.05 drp EACH EYE BID@0800,1999 Patient Comments: PLACE (1) DROP INTO EACH EYE TWICE DAILY NEEDEDFOR DRY EYE levothyroxine 50 mcg tablet 50 mcg PO DAILY@0600 cholecalciferol (vitamin D3) [Vitamin D3] 25 mcg (1,000 unit) Tablet,Chewable 25 mcg PO DAILY@0800 ascorbic acid (vitamin C) 500 MG tablet 500 mg PO DAILY@0800 ferrous gluconate 324 MG tablet 324 mg PO DAILY@0800 carboxymethylcellulose sodium [Refresh Tears] 0.5 % Drops 1 drp EACH EYE TID ondansetron 4 mg tablet,disintegrating 4 mg PO TID PRN (Reason: nausea and vomiting) Qty: 21 0RF docusate sodium 100 mg capsule 100 mg PO Q OTHER DAY Qty: 15 5RF Held apixaban 5 MG tablet 5 mg PO BID Hold Instructions: Resume on 09/10/24. Discontinued omeprazole 40 mg Capsule,Delayed Release(Dr/Ec) 40 mg PO DAILY@0700 Referrals / Follow Up: Michelle Marroquin MD [Primary Care Provider] - Stalin Kuhn DO [Med Staff - Active Staff] - 09/21/24 1:30 pm (with Claudette Corbett nurse practioner) Disposition Disposition (needs filled in before D/C Order can be placed): Home, Self Care Charges/Coding Visit Charges Inpatient E&M: 42621 Disch Hosp >30min
[2024-09-07 13:24] VITALS: BP 113/70; PULSE 92; RESP 17; TEMP 36.5; O2SAT 97
--- NOTE | 2024-09-07 13:46 | CASEMGMT ---
Social Work- MARIANNE met with pt and pt caregiver to discuss plans to discharge. Jesica reports that she will transport pt back to longterm. Jesica reports that the longterm would like discharge orders faxed to [phone]; MARIANNE faxed documents. Jesica reports no other needs at this time. Plan: return to longterm YAKOV Scruggs
--- NOTE | 2024-09-07 14:34 | PHA.DC_ITS ---
Pharmacy [facility] Counseling Pharmacy Service has performed discharge medication reconciliation and counseling for this patient. 1. PANTOPRAZOLE 40MG PO BID 2. STOP OMEPRAZOLE 3. RESUME ELIQUIS 09/10 The patient's discharge medication list was reviewed for discrepancies and discrepancies were resolved. The patient's family was counseled on the following discharge medications and changes in medications for homegoing were reviewed. The Reason for Use, instructions for use, and potential side effects were reviewed for all new medications. The patient's family questions regarding all of their medications were answered. The patient's family was able to verbally demonstrate an understanding of their discharge medications. Medications at Discharge Home Medications loratadine 10 mg tablet 10 mg PO DAILY@0800 ALLERGIES 09/10/14 mirtazapine 7.5 mg tablet 7.5 mg PO QHS@1999 DEPRESSION 05/19/17 azelastine 0.05 % eye drops 0.05 drp EACH EYE BID@0800,1999 DRY EYES 08/08/18 apixaban 5 mg tablet 5 mg PO BID BLOOD THINNER 11/23/18 Held on 09/07/24. Instructions: Resume on 09/10/24. ascorbic acid (vitamin C) 500 mg tablet 500 mg PO DAILY@0800 SUPPLEMENT 01/02/22 carboxymethylcellulose sodium 0.5 % eye drops (Refresh Tears) 1 drp EACH EYE TID 01/02/22 cholecalciferol (vitamin D3) 25 mcg (1,000 unit) chewable tablet (Vitamin D3) 25 mcg PO DAILY@0800 SUPPLEMENT 01/02/22 ferrous gluconate 324 mg (38 mg iron) tablet 324 mg PO DAILY@0800 SUPPLEMENT 01/02/22 levothyroxine 50 mcg tablet 50 mcg PO DAILY@0600 THYROID 01/02/22 ondansetron 4 mg disintegrating tablet 4 mg PO TID PRN nausea and vomiting #21 tabs 06/13/23 GENERAL PROTECTION LOTION 1 dose topical 4X/DAY PRN skin protection 07/31/23 acetaminophen 160 mg/5 mL oral elixir 500 mg PO Q6H PRN fever or pain 07/31/23 bisacodyl 10 mg/30 mL enema (Fleet Bisacodyl) 5 mg CO DAILY PRN constipation 07/31/23 bismuth subsalicylate 525 mg/15 mL oral suspension (Pepto-Bismol Max St) 1,050 mg PO .4X DAILY PRN diarrhea 07/31/23 carboxymethylcellulose sodium 0.5 % eye drops (Refresh Tears) 1 drp ophthalmic (eye) 4-6XD PRN dry eye(s) 07/31/23 citalopram 10 mg tablet 10 mg PO DAILY 07/31/23 citalopram 20 mg tablet 20 mg PO DAILY 07/31/23 ipratropium 0.5 mg-albuterol 3 mg (2.5 mg base)/3 mL nebulization soln 3 ml inhalation Q4H PRN shortness of breath or wheezing 07/31/23 terbinafine HCl 1 % topical cream 1 applic topical BID PRN redness irrit 10/08/23 docusate sodium 100 mg capsule 100 mg PO Q OTHER DAY #15 caps 07/03/24 pantoprazole 40 mg tablet,delayed release 40 mg PO BID #60 tabs 09/07/24
== END 2024-09-07 15:21 | disposition other institution (70) ==
LOC: ED 13:16 → MS3 13:33
PROVIDERS: Internal Medicine Gastroenterology; Admitting Provider Internal Medicine; Emergency Provider Emergency Medicine; PCP Internal Medicine; Visit Provider Internal Medicine
PROC: 0DJ08ZZ Inspection of Upper Intestinal Tract, Via Natural or Artificial Opening Endoscopic (ICD-10-PCS; CPT 43235; principal; 2024-09-06 13:10)
DX: K22.11 Ulcer of esophagus with bleeding (principal); G80.9 Cerebral palsy, unspecified; I48.91 Unspecified atrial fibrillation; F72 Severe intellectual disabilities; D68.32 Hemorrhagic disorder due to extrinsic circulating anticoagulants; Z66 Do not resuscitate; D50.9 Iron deficiency anemia, unspecified; E03.9 Hypothyroidism, unspecified; F32.A Depression, unspecified; D72.829 Elevated white blood cell count, unspecified; E78.5 Hyperlipidemia, unspecified; K44.9 Diaphragmatic hernia without obstruction or gangrene; J30.2 Other seasonal allergic rhinitis; R73.9 Hyperglycemia, unspecified; Z79.01 Long term (current) use of anticoagulants; Z79.890 Hormone replacement therapy; Z79.899 Other long term (current) drug therapy; Z99.3 Dependence on wheelchair; Z86.711 Personal history of pulmonary embolism; Z95.0 Presence of cardiac pacemaker; K22.70 Barrett's esophagus without dysplasia
CPT/HCPCS: 44361; 36415; 80048; 80053; 83735; 84100; 84443; 85014; 85018; 85025; 85027; 85610; 85730; 86850; 86900; 86901; 88305; 93005; 96365; 96366; 97802; 99221; 99252; 99284; A4216; G0378; G0463

== ENCOUNTER → 2024-09-21 | Outpatient (CLI) | payer MEDICARE, MEDICAID, SELFPAY ==
[2024-09-21 14:52] LABS: Hematocrit 38.7 % (37-47); Hemoglobin 13.1 g/dL (12.0-15.0); Immature Granulocytes Count 0.020 X10^3/uL (0.0-0.0); Mean Corp Hgb Conc 33.9 g/dL (32-36); Mean Corpuscular Volume 94.4 fL (81-99); Mean Platelet Vol. 11.1 fl (6.2-12.0); NRBC Flagged by Analyzer 0 % (0-5); Platelet Count 306 K/mm3 (150-450); RBC Distribution Width CV 13.3 % (11.6-14.6); RBC Distribution Width SD 46.3 fl (35.1-43.9); Red Blood Count 4.10 M/mm3 (4.2-5.4); White Blood Count 7.4 K/mm3 (4.4-11.0)
--- OUTSIDE RECORDS SUMMARY | 2024-09-21 21:53 | XMS RPT_ITS | CCD ---
Author Organization [facility] Care Team Providers Care Commodity Lead Name Role Phone Yang Arbams Unavailable Unavailable Cain, Rocky-Chi Unavailable Unavailable Yang Abrams Unavailable Unavailable Cain, Rocky-Chi Unavailable Unavailable AMINIAN, ALI Unavailable Unavailable AMINIAN, ALI Unavailable Unavailable AMINIAN, ALI Unavailable Unavailable Cain, Rocky Chi Primary Care Provider 1([facility])[phone] Rocky Barlow Chi Primary Care Provider 1([facility])[phone] Dr. Shazia Fortune Emergency Provider 1([facility])[phone] Dr. Maximiliano Ortiz Admit Provider Dr. Maximiliano Ortiz Attending Provider 1([facility])[phone] Maximiliano Ortiz Other Provider Dr. Jeni Ann Attending Provider 1([facility])[phone] Jeni Ann Other Provider Dr. Rocky Barlow Chi Primary Care Provider 1([facility])[phone] Dr. Shazia Fortune Emergency Provider 1([facility])[phone] Dr. Maximiliano Ortiz Admit Provider Dr. Maximiliano Ortiz Attending Provider 1([facility])[phone] Maximiliano Ortiz Other Provider Dr. Jeni Ann Attending Provider 1([facility])[phone] Jeni Ann Other Provider Dr. Rocky Barlow Chi Referring Provider 1([facility])[phone] XUAN Pope Attending Provider 1([facility])[phone] Lopez LEVY, Dr. Martinez Primary Care Provider Gregory Coleman MD Attending Provider Gregory Coleman MD Emergency Provider Lopez LEVY, Dr. Martinez Attending Provider [phone] Lopez LEVY, Dr. Martinez Referring Provider [phone] Christ Saldivar Attending Provider [phone] Lopez LEVY, Dr. Martinez Primary Care Provider Cain, Rocky Chi Primary Care Provider [phone] Denae LEVY, Bartolo Ervin Unavailable CAIN, ROCKY CHI Primary Care Unavailable HAJA COLEY Attending Unavailable Lopez LEVY, Dr. Martinez Primary Care Provider Dr. Michelle Marroquin MD Referring Provider [phone] Lopez LEVY, Dr. Martinez Attending Provider [phone] Dr. Dominguez Bolton MD Emergency Provider [phone] Jeni Ann DO Admit Provider Dr. Jeni Ann DO Attending Provider Dr. Jeni Ann DO Other Provider Dr. Stalin Kuhn DO Attending Provider Oleghe, Efewongbe Attending Unavailable Oleghe, Efewongbe Primary Care Unavailable Oleghe, Efewongbe Referring Unavailable Oleghe, Efewongbe Primary Care Unavailable Jeni Ann Admitting Unavailable Jeni Ann Attending Unavailable Jeni Ann Consulting Unavailable Oleghe, Efewongbe Referring Unavailable Christ Saldivar Attending Unavailable Oleghe, Efewongbe Primary Care Unavailable Brigitte Warner Attending Unavailable Oleghe, Efewongbe Referring Unavailable Oleghe, Efewongbe Primary Care Unavailable Oleghe, Efewongbe Primary Care Unavailable Jeni Ann Referring Unavailable Panfilo Reese Attending Unavailable Stalin Kuhn Attending Unavailable Gregory Coleman Attending Unavailable Oleghe, Efewongbe Primary Care Unavailable Oleghe, Efewongbe Referring Unavailable Oleghe, Efewongbe Primary Care Unavailable Oleghe, Efewongbe Attending Unavailable Oleghe, Efewongbe Referring Unavailable Oleghe, Efewongbe Primary Care Unavailable Oleghe, Efewongbe Attending Unavailable Maximiliano Fatima Attending Unavailable Oleghe, Efewongbe Primary Care Unavailable Gregory Coleman Attending Unavailable Oleghe, Efewongbe Primary Care Unavailable Oleghe, Efewongbe Primary Care Unavailable Jeni Ann Attending Unavailable Jeni Ann Admitting Unavailable Oleghe, Efewongbe Referring Unavailable Oleghe, Efewongbe Attending Unavailable Oleghe, Efewongbe Primary Care Unavailable Christ Saldivar Attending Unavailable Oleghe, Efewongbe Primary Care Unavailable Oleghe, Efewongbe Referring Unavailable Oleghe, Efewongbe Primary Care Unavailable John Keyes Attending Unavailable Oleghe, Efewongbe Referring Unavailable Oleghe, Efewongbe Primary Care Unavailable Panfilo Reese Attending Unavailable Oleghe, Efewongbe Primary Care Unavailable John Keyes Attending Unavailable Oleghe, Efewongbe Referring Unavailable Oleghe , Dr. Martinez Primary Care Provider Dr. Michelle Marroquin MD Referring Provider Christ Saldivar Attending Provider Dr. Panfilo Reese MD Attending Provider [phone] Dr. Jeni Ann DO Referring Provider [phone] Brigitte Keating Attending Provider [phone] Allergies Allergy Classification Reported Allergen(s) Allergy Type Date of Onset Reaction(s) Facility (7 sources) AMOXICILLIN-POT CLAVULANATE; Translations: [AMOXICILLIN-POT CLAVULANATE] Propensity to adverse reactions to drug (disorder) 1 Diarrhea [facility] Repository (2 sources) OTHER; Translations: [OTHER] Propensity to adverse reactions (disorder) 5 [facility] Repository (20 sources) Amoxicillin; Translations: [amoxicillin trihydrate] Drug Allergy 1 Unknown [facility] (20 sources) potassium clavulanate; Translations: [potassium clavulanate] Propensity to adverse reactions Unknown [facility] (6 sources) Potassium; Translations: [POTASSIUM] Drug Allergy 9 Intolerance [place] Work Phone: (5 sources) OTHER [Other] Propensity to adverse reactions 5 [place] Work Phone: Medications Current Medications Medication Drug Class(es) Dates Sig (Normalized) Sig (Original) Acetaminophen 160 mg/5 mL elixir (6 sources) Start: 07-31-2023 take 500 mg by mouth every six hours as needed for pain Acetaminophen 160 mg/5 mL elixir Active 500 mg PO EVERY 6 HOURS as needed for fever or pain July 31, 2023 12:00am PAIN OR FEVER>100.1 Start: 07-31-2023 take 500 mg by mouth [...] needed for shortness of breath or wheezing 90 0 January 03, 2022 7:29pm July 31, 2023 3:33pm Start: 02-06-2021 End: 01-03-2022 take 1 mL by inhalation every six hours Ipratropium-Albuterol Active 3 ML INHALATION EVERY 6 HOURS 90 January 03, 2022 7:29pm Start: 11-23-2018 Ipratropium-Al buterol Active 3 ML IH NEEDED November 23, 2018 12:00am Comment on above: Inhale 3 mL as instr ucted every 6 hours as needed. apixaban 5 mg oral tablet (20 sources) Factor Xa Inhibitor Start: take 1 tablet by mouth twice daily Apixaban 5 MG tablet Active 5 mg PO TWICE A DAY November 23, 2018 12:00am BLOOD THINNER On Hold: Resume on 09/10/24. Comment on above: Take by mouth twice daily. azelastine hydrochloride 0.5 mg/ml ophthalmic solution (20 sources) Histamine-1 Receptor Antagonist Start: Azelastine HCl (OPTIVAR) 0.05 % ophthalmic solution 08/10/2024 Active Start: 08-08-2018 Azelastine 6 M L drops Active 0.05 NMA EACH EYE BID@08August 08, 2018 12:00am DRY EYES Start: 08-08-2018 Azelastine Act chris 0.05 DRP EACH EYE BID@August 08, 2018 12:00am End: 08-26-2024 azelastine HCl (AZELASTINE O PHTHALMIC) Use in eyes. 08/26/2024 Discontinued benzonatate 100 mg oral capsule (7 sources) Non-narcotic Antitussive Start: 02-06-2021 take 200 mg by mouth three times daily Benzonatate Active 200 MG PO THREE TIMES A DAY 60 February 06, 2021 1:00am bisacodyl 0.333 mg/ml enema (6 sources) Stimulant Laxative Start: 07-31-2023 Bisacodyl (Fleet Bisacodyl) 10 mg/30 mL enema Active 5 mg RC DAILY as needed for constipation July 31, 2023 12:00am ON DAY FIVE WITHOUT A BOWEL MOVEMENT bismuth subsalicylate 35 mg/ml oral suspension (6 sources) Bismuth Start: 07-31-2023 Bismuth Subsalicylate (Pepto-Bismol Max St) 525 mg/15 mL suspension Active 1050 mg PO .4X DAILY as needed for diarrhea July 31, 2023 12:00am FOR UPSET STOMACH; do not exceed 8 doses in a 24 hour period carboxymethylcellulose sodium 5 mg/ml ophthalmic solution (20 sources) Start: 07-31-2023 Carboxymethylcellulose Sodium (Refresh Tears) 0.5 % drops Active 1 NMA OPHTHALMIC 4 to 6 times per day as needed for dry eye(s) July 31, 2023 12:00am COMPLAINT OF DRY EYES Start: 01-02-2022 Carboxymethylc ellulose Sodium (Refresh Tears) 0.5 % Drops Active 1 NMA EACH EYE THREE TIMES A DAY January 02, 2022 12:00am carboxymethylcel lulose sodium (REFRESH OPHTHALMIC) Use in eyes. Active cholecalciferol 0.025 mg ora l tablet (17 sources) Vitamin D Start: 08-06-2024 VITAMIN D 25 m cg (1,000 unit) tab tablet 08/06/2024 Active Start: 01-02-2022 take 1 tablet by once daily Cholecalciferol (Vitamin D3) (Vitamin D3) 25 mcg (1,000 unit) Tablet,Chewable Active 25 ug PO DAILY@0800 January 02, 2022 12:00am SUPPLEMENT citalopram 10 mg oral tablet (14 sources) Serotonin Reuptake Inhibitor Start: 08-06-2024 citalopram (CELEXA) 20 mg tablet 08/06/2024 Active Start: 08-06-2024 citalopram hyd robromide (CELEXA) 10 mg tablet 08/06/2024 Active Start: 07-31-2023 Citalopram 20 mg tablet Active 20 mg PO DAILY July 31, 2023 12:00am TAKE WITH 10 MG TAB TO = 30 MG DAILY Start: 07-31-2023 take 2 tablets by mo uth once daily, then take 3 tablets by mouth once daily Citalopram 10 mg tablet Active 10 mg PO DAILY July 31, 2023 12:00am TAKE WITH 20 MG TAB TO =30 MG DAILY COMPOUNDED PRESCRIPTION (5 sources) Start: 05-12-2006 COMPOUNDED [...] abilities docusate sodium 100 mg oral capsule (20 sources) Start: 08-06-2024 docusate sodiu m (COLACE) 100 mg capsule 08/06/2024 Active Start: 07-03-2024 take 1 capsule by mo uth every other day Docusate Sodium 100 mg capsule Active 100 mg PO every other day 15 5 July 03, 2024 12:37am Start: 01-02-2022 End: 07-03-2024 take 1 capsule by mouth every other day Docusate Sodium 100 mg capsule Discontinued 100 mg PO Q2D@1600 July 31, 2023 3:19pm July 03, 2024 12:38am STOOL MAY HOLD AFTER ONE LOOSE STOOL ergocalciferol 1.25 mg oral capsule (12 sources) Provitamin D2 Compound Start: 11-13-2018 take 11836 [IU] by mouth every month Ergocalciferol (Vitamin D2) Active 27558 UNIT PO EVERY MONTH November 13, 2018 12:00am Comment on above: Take 50,000 Units by mouth once every month. Ferrous Fumarate-Vitamin C (7 sources) Start: 02-23-2019 Ferrous Fumarate-Vitamin C Active 1 EACH PO DAILY February 23, 2019 12:32pm Start: 02-23-2019 Ferrous Fumara te-Vitamin C Active 1 EACH PO DAILY February 23, 2019 1:00am GENERAL PROTECTION LOTION (6 sources) Start: 07-31-2023 GENERAL PROTEC TION LOTION Active 1 NMA TOPICAL 4 TIMES DAILY as needed for skin protection July 31, 2023 12:00am APPLY BEFORE SUN EXPOSURE AND REAPPLY NECESSARY Start: 07-31-2023 GENERAL PROTEC TION LOTION Active TOPICAL July 31, 2023 12:00am APPLY BEFORE SUN EXPOSURE AND REAPPLY NECESSARY lactulose 667 mg/ml oral solution (12 sources) Osmotic Laxative Start: 08-08-2018 Lactulose Act chris 10 GM BC TWICE A DAY August [...] 50 ug PO DAILY@599January 02, 2022 12:00am THYROID Start: 09-10-2014 take 50 ug by mouth [...] mg PO DAILY@0800 September 10, 2014 12:00am ALLERGIES Start: 03-19-2013 take 1 tablet by courtney [...] mg PO QHS@2000 May 19, 2017 12:00am DEPRESSION Comment on above: Take 7.5 mg by mouth daily at bedtime. ondansetron 4 mg disintegrating oral tablet (9 sources) Serotonin-3 Receptor Antagonist Start: 06-13-2023 take 1 tablet by mouth three times daily as needed for nausea and vomiting Ondansetron 4 mg tablet,disintegrat ing Active 4 mg PO THREE TIMES A DAY as needed for nausea and vomiting 21 0 June 13, 2023 6:59am pantoprazole 40 mg delayed release oral tablet (2 sources) Proton Pump Inhibitor Start: 09-07-2024 take 1 tablet by mouth twice daily Pantoprazole 40 mg Tablet,Delayed Release (Dr/Ec) Active 40 mg PO TWICE A DAY 60 2 September 07, 2024 12:00am polyethylene glycol 3350 60672 mg powder for oral solution (12 sources) Osmotic Laxative Start: 08-08-2018 Polyethylene Glycol 3350 Active 17 GM BC DAILY August 08, 2018 12:00am Comment on above: Take 17 g by mouth o nce daily. sennosides, custodial 8.6 mg oral tablet (12 sources) Start: 04-20-2015 End: 08-26-2024 take 1 tablet by mouth twice daily Sennosides Active 1 TABLET PO TWICE A DAY April 20, 2015 1:00am Comment on above: Take 17.2 mg by mout h twice daily. sucralfate 100 mg/ml oral suspension (7 sources) Aluminum Complex Start: 08-08-2018 take 1 g by mouth four times daily Sucralfate Active 1 GM PO 4 TIMES DAILY August 08, 2018 12:00am terbinafine hydrochloride 10 mg/ml topical cream (12 sources) Allylamine Antifungal Start: 07-31-2023 End: 10-08-2023 Terbinafine Hcl 1 % cream Active 1 NMA TOPICAL TWICE A DAY as needed for redness irrit October 08, 2023 1:36pm APPLY UNDER BREAST OR IN SKIN FOLDS FOR REDNESS WHEELCHAIR CUSHION MISC (5 sources) Start: 05-12-2006 WHEELCHAIR CUSHION MISC Indications: Other specified infantile cerebral palsy Use daily for prevention of decubitus 1 0 05/12/2006 Active Comment on above: Use daily for preven tion of decubitus zinc oxide 130 mg/ml topical cream (12 sources) Start: 12-30-2019 Zinc Oxide (Desitin Rapid Relief) 13 % [...] / HYDROcodone bitartrate 5 mg oral tablet (6 sources) Opioid Agonist Start: 12-21-2023 End: 09-05-2024 Hydrocodone-Aceta minophen 5-325 mg tablet Discontinued 1 {tbl} PO EVERY 6 HOURS NEEDED as needed for pain, severe 10 3 0 December 21, 2023 September 05, 2024 1:10pm Contusion of right hip, initial encounter Contusion of right hip, initial encounter ascorbic acid 500 mg oral tablet (20 sources) Vitamin C Start: 06-24-2019 End: 01-02-2022 take 1 tablet by mouth once daily Ascorbic Acid (Vitamin C) 500 MG tablet Discontinued 500 mg PO DAILY@0800 90 90 1 January 31, 2020 11:28am January 02, 2022 6:03pm Iron deficiency Iron deficiency Take with iron bacitracin 0.4 unt/mg / neomycin 0.0035 mg/mg / polymyxin b 5 unt/mg topical ointment (6 sources) Aminoglycoside Antibacterial, Polymyxin-class Antibacterial Start: 07-31-2023 End: 10-08-2023 Neomycin-Bacitrac nzn-Polymyxnb (Triple Antibiotic) 3.5mg-400 unit- 5,000 unit/gram ointment Discontinued 1 NMA TOPICAL .4X DAILY as needed July 31, 2023 12:00am October 08, 2023 1:35pm FOR MINOR CUTS, SCRAPES, LOPEZ carbamide peroxide 65 mg/ml otic solution (6 sources) Start: 07-31-2023 End: 04-21-2024 Carbamide Peroxide 6.5 % drops Discontinued 10 NMA OTIC DAILY July 31, 2023 12:00am April 21, 2024 2:54pm PLACE DROPS IN EACH EAR FOR 20 MINUTES BY KEEPING THE HEAD TILTED. TAKE TWICE DAILY FOR 4 DAYS EVERY MONTH. clindamycin 300 mg oral capsule (6 sources) Lincosamide Antibacterial Start: 05-18-2024 End: 09-05-2024 take 1 capsule by mouth three times daily Clindamycin Hcl 300 mg capsule Discontinued 300 mg PO THREE TIMES A DAY May 18, 2024 12:00am September 05, 2024 1:10pm codeine phosphate 2 mg/ml / guaiFENesin 20 mg/ml oral solution (16 sources) Opioid Agonist Start: 01-02-2022 End: 07-31-2023 Codeine-Guaifenes in 10-100 mg/5 mL liquid Discontinued 0 .ROUTE .COMPLEX January 02, 2022 12:00am July 31, 2023 3:24pm TAKE 5 MLS BY MOUTH 6 TIMES A DAY NEEDED FOR COUGH doxycycline monohydrate 100 mg oral capsule (20 sources) Tetracycline-class Drug Start: 02-03-2021 End: 07-31-2023 take 1 capsule by mouth twice daily Doxycycline Monohydrate 100 MG capsule Discontinued 100 mg PO TWICE A DAY 20 0 February 03, 2021 1:00am July 31, 2023 3:24pm ferrous gluconate 324 mg oral tablet (20 sources) Start: 06-24-2019 End: 01-02-2022 take 1 tablet by mouth once daily Ferrous Gluconate 324 MG tablet Discontinued 324 mg PO DAILY 90 90 1 January 31, 2020 11:28am January 02, 2022 6:03pm Iron deficiency Iron deficiency ferrous sulfate 60 mg/ml oral solution (20 sources) Start: 05-22-2017 End: 05-27-2018 Ferrous Sulfate 300 MG/5 ML liquid Discontinued 300 mg GT TWICE A DAY 300 0 May 22, 2017 12:00am May 27, 2018 [...] above: Take 1 tablet by courtney th one time only for 1 dose. FLUoxetine 40 mg oral capsule (20 sources) Serotonin Reuptake Inhibitor Start: 2 End: 4 take 1 capsule by mouth once daily Fluoxetine 40 mg capsule Discontinued 40 mg PO DAILY@0800 January 02, 2022 12:00am July 31, 2023 3:24pm DEPRESSION Start: 05-19-2017 take 10 mL by mouth [...] Take 10 mL by mouth once daily. guaiFENesin 20 mg/ml oral solution (12 sources) Start: 4 End: 5 take 200 mg by mouth every four hours as needed for congestion Guaifenesin 100 mg/5 mL liquid Discontinued 200 mg PO Q4H as needed for congestion 1000 0 April 21, 2024 7:53pm September 05, 2024 1:10pm COUGH OR THICK PHLEGM/SECRETIONS magnesium hydroxide 80 mg/ml oral suspension (5 sources) Start: 7 End: 5 MILK OF MAGNESIA 400 MG/5 ML ORAL SUSP as needed 0 05/05/2006 08/26/2024 Discontinued Comment on above: as needed melatonin 3 mg oral tablet (20 sources) Start: 2 End: 4 take 4.5 mg by mouth at bedtime [...] ophthalmic solution (15 sources) Quinolone Antimicrobial Start: 0 End: 5 ofloxacin (OCUFLOX) 0.3 % ophthalmic solution One drop 4 times a day for one week in surgical eye(s). 1 Bottle 1 11/23/2019 08/26/2024 Discontinued Comment on above: One drop 4 times a d ay for one week in surgical eye(s). omeprazole 40 mg delayed release oral capsule (20 sources) Proton Pump Inhibitor Start: 2 End: 5 take 1 capsule by mouth once daily Omeprazole 40 mg Capsule,Delayed Release(Dr/Ec) Discontinued 40 mg PO DAILY@0700 January 02, 2022 12:00am September 07, 2024 1:03pm GERD Start: 01-08-2019 take 40 mg by mouth [...] capsule Discontinued 20 mg PO DAILY 60 0 May 22, 2017 4:33pm January 08, 2019 9:26am Comment on above: Take 2 capsules by m out once daily. take in AM 1/2 hour before eating oseltamivir 75 mg oral capsule (6 sources) Neuraminidase Inhibitor Start: 04-21-19 End: 04-26-19 take 1 capsule by mouth twice daily Oseltamivir (Tamiflu) 75 mg capsule Discontinued 75 mg PO TWICE A DAY 10 5 0 April 21, 2024 1:00am April 25, 2024 [...] Discontinued 20 mg PO TWICE A DAY 10 0 August 15, 2022 12:00am July 31, 2023 [...] Active Problems Problem Classification Problem Date Documented Da te Episodic/Chronic Abdominal hernia (20 sources) Hiatal hernia; Translations: [Diaphragmatic hernia without obstruction or gangrene] Onset: 8 05-19-2017 Episodic Acute bronchitis (20 sources) Acute bronchitis with bronchospasm; Translations: [Acute bronchitis, unspecified] Episodic Anxiety disorders (13 sources) Mixed anxiety and depressive disorder; Translations: [Anxiety disorder, unspecified] Onset: 5 07-31-2023 Chronic Aspiration pneumonitis; food/vomitus (20 sources) Aspiration pneumonitis; Translations: [Pneumonitis due to inhalation of food and vomit] Onset: 5 06-23-2018 Episodic Asthma (12 sources) Asthmatic bronchitis; Translations: [Unspecified asthma, uncomplicated] 08-23-2022 Chronic Cardiac dysrhythmias (20 sources) Tachycardia; Translations: [Tachycardia, unspecified] Episodic Cataract (10 sources) Age-related cataract of left eye; Translations: [Unspecified age-related cataract] Onset: 0 03-17-2019 Chronic Deficiency and other anemia (20 sources) Microcytic anemia; Translations: [Iron deficiency anemia, unspecified] 01-11-2019 Episodic Deficiency and other anemia (20 sources) Iron deficiency anemia; Translations: [Iron deficiency anemia, unspecified] 06-23-2018 Episodic Developmental disorders (12 sources) Severe intellectual disability; Translations: [Severe intellectual disabilities] 06-11-2024 Chronic E Codes: Fall (18 sources) Fall; Translations: [Unspecified fall, initial encounter] 08-03-2022 Episodic Esophageal disorders (10 sources) Gastroesophageal reflux disease; Translations: [Gastro-esophageal reflux disease without esophagitis] Onset: 0 06-23-2008 Chronic Esophageal disorders (20 sources) Dilatation of esophagus; Translations: [Dilatation of esophagus] 06-23-2018 Episodic Gastrointestinal hemorrhage (9 sources) Acute upper gastrointestinal hemorrhage; Translations: [Gastrointestinal hemorrhage, unspecified] Onset: 5 09-05-2024 Episodic Genitourinary symptoms and ill-defined conditions (12 sources) Urinary incontinence; Translations: [Unspecified urinary incontinence] 06-11-2024 Chronic Genitourinary symptoms and ill-defined conditions (1 source) Scalding pain on urination ; Translations: [Dysuria] Episodic Inflammation; infection of eye (except that caused by tuberculosis or sexually transmitteddisease) (5 sources) Chronic allergic conjunctivitis; Translations: [Other chronic allergic conjunctivitis] 03-07-2006 Chronic Mood disorders (20 sources) Depressive disorder; Translations: [Depression] 03-17-2019 Chronic Mood disorders (1 source) Mood disorders; Translations: [Depression, unspecified] Onset: 5 Nausea and vomiting (17 sources) Nausea and vomiting; Translations: [Nausea with vomiting, unspecified] Onset: 5 06-13-2023 Episodic Noninfectious gastroenteritis (18 sources) Gastroenteritis; Translations: [Noninfective gastroenteritis and colitis, unspecified] 01-21-2022 Episodic Nutritional deficiencies (6 sources) Undernutrition; Translations: [Mild protein-calorie malnutrition] Onset: 7 08-19-2006 Chronic Nutritional deficiencies (20 sources) Iron deficiency; Translations: [Iron deficiency] 10-12-2019 Episodic Osteoarthritis (20 sources) Osteoarthritis of right hip joint; Translations: [Unilateral primary osteoarthritis, right hip] 06-23-2018 Chronic Other aftercare (12 sources) Long-term current use of anticoagulant; Translations: [assisted (current) use of anticoagulants] 06-13-2023 Episodic Other connective tissue disease (6 sources) Foot pain; Translations: [Pain in left foot] 10-08-2023 Episodic Other ear and sense organ disorders (6 sources) Excessive cerumen in ear canal ; [...] specified noninflammatory disorders of vagina] Episodic Other gastrointestinal disorders (6 sources) Diarrhea; Translations: [Diarrhea, unspecified] 08-10-2024 Episodic Other gastrointestinal disorders (3 sources) History of Arias's esophagus; Translations: [Personal history of other diseases of the digestive system] 09-05-2024 Episodic Other injuries and conditions due to external causes (20 sources) Pulmonary aspiration ; Translations: [Unspecified foreign body in respiratory tract, part unspecified causing other injury, initial encounter] 06-23-2018 Episodic Other lower respiratory disease (20 sources) Dyspnea; Translations: [Shortness of breath] 06-23-2018 Episodic Other lower respiratory disease (15 sources) Wheezing; Translations: [Wheezing] Episodic Other lower respiratory disease (1 source) Chronic cough; Translations: [Chronic cough] Episodic Other lower respiratory disease (7 sources) Cough; Translations: [Cough] 07-21-2023 Episodic Other lower respiratory disease (9 sources) History of aspiration pneumonia; Translations: [Personal history of pneumonia (recurrent)] 04-21-2024 Episodic Other nervous system disorders (7 sources) H/O: brain disorder; Translations: [Personal history of other diseases of the nervous system and sense organs] 07-21-2023 Episodic Other upper respiratory disease (5 sources) Allergic rhinitis; Translations: [Other allergic rhinitis] 05-14-2005 Chronic Other upper respiratory infections (20 sources) Acute upper respiratory infection; Translations: [Acute upper respiratory infection, unspecified] Onset: 5 03-29-2022 Episodic Paralysis (20 sources) Cerebral palsy; Translations: [Cerebral palsy, unspecified] Onset: 4 11-19-2019 Chronic Pulmonary heart disease (17 sources) H/O: pulmonary embolus; Translations: [Personal history of pulmonary embolism] Onset: 0 03-17-2019 Episodic Residual codes; unclassified (20 sources) Poor oral hygiene; Translations: [Other specified personal risk factors, not elsewhere classified] 06-23-2018 Episodic Residual codes; unclassified (12 sources) Insomnia; Translations: [Insomnia, unspecified] 07-31-2023 Episodic Residual codes; unclassified (6 sources) H/O: Disorder; Translations: [Personal history of other specified conditions] 07-31-2023 Episodic Respiratory failure; insufficiency; arrest (adult) (19 sources) Acute respiratory failure; Translations: [Acute respiratory failure with hypoxia] Episodic Sprains and strains (6 sources) Sprain of left foot; Translations: [Unspecified sprain of left foot, initial encounter] 10-01-2023 Episodic Superficial injury; contusion (20 sources) Contusion of foot; Translations: [Contusion of unspecified foot, initial encounter] Onset: 0 09-26-2009 Episodic Thyroid disorders (20 sources) Hypothyroidism; Translations: [Hypothyroidism, unspecified] Onset: 7 08-13-2007 Chronic Unclassified (1 source) Unknown / UNK(Unknown) Onset: 7 Unclassified (2 sources) with Claudette Corbett nurse practioner Unclassified (1 source) Cough, unspecified; Translations: [Cough, unspecified] Onset: Past or Other Problems Problem Classification Problem Date Documented Da te Episodic/Chronic Deficiency and other anemia (1 source) Iron [...] [Pain in right hip] Onset: 01-14-2024 Episodic Unclassified (18 sources) metal gavi rt leg 09-27-2021 Unclassified (18 sources) neurostimulater 09-27-2021 Results Test Name Value Interpretation Reference Range Facility Anion gap in Serum or Plasma Ordered By: Jeni Ann on 09-07-2024 Anion gap [Moles/Vol] 9 mmol/L 07-22 [facility] BUN/creatinine ratioOrdered By: Jeni Ann on 09-07-2024 Urea nitrogen/Creatinine [Mass ratio] 14.1 mg/mg 12-27 [facility] Basic Metabolic Profile (BMP )on 09-07-2024 BUN/CRE 14.1 RATIO Normal 12-27 [facility] Comment on above: Performed By: #### L 501.9520, L100.0100, L501.2300, L500.4050, L501.5200 #### [facility] [address] [place], [address] Calcium [Mass/Vol] 8.3 mg/dL Normal 7.6-11.0 [facility] Comment on above: Performed By: #### L 501.9520, L100.0100, L501.2300, L500.4050, L501.5200 #### [facility] [address] [place], [address] Chloride [Moles/Vol] 107 mmol/L Normal 98-108 [facility] Comment on above: Performed By: #### L 501.9520, L100.0100, L501.2300, L500.4050, L501.5200 #### [facility] [address] [place], [address] CO2 [Moles/Vol] 24.0 mmol/L Normal 21.0-32.0 [facility] Comment on above: Performed By: #### L 501.9520, L100.0100, L501.2300, L500.4050, L501.5200 #### [facility] [address] [place], [address] Creatinine [Mass/Vol] 0.47 mg/dL Low 0.70-1.20 [facility] Comment on above: Performed By: #### L 501.9520, L100.0100, L501.2300, L500.4050, L501.5200 #### [facility] [address] [place], [address] ECRCL 101.08 ml/min Normal 50-250 [facility] Comment on above: Performed By: #### L 501.9520, L100.0100, L501.2300, L500.4050, L501.5200 #### [facility] [address] [place], [address] GAP 9 Normal 5-15 [facility] Comment on above: Performed By: #### L 501.9520, L100.0100, L501.2300, L500.4050, L501.5200 #### [facility] [address] [place], [address] GFR/1.73 sq M.predicted among non-blacks MDRD (S/P/Bld) [Vol rate/Area] 107 mL/min/{1.73_m2} Normal >60 [facility] Comment on above: Result Comment: mL/m in/1.73m2 CKD-EPI Creatinine Equation (2020) Performed By: #### L 501.9520, L100.0100, L501.2300, L500.4050, L501.5200 #### [facility] [address] [place], [address] Glucose [Mass/Vol] 107 mg/dL High 70-99 [facility] Comment on above: Performed By: #### L 501.9520, L100.0100, L501.2300, L500.4050, L501.5200 #### [facility] [address] [place], [address] Potassium [Moles/Vol] 3.9 mmol/L Normal 3.3-5.1 [facility] Comment on above: Performed By: #### L 501.9520, L100.0100, L501.2300, L500.4050, L501.5200 #### [facility] [address] [place], [address] Sodium [Moles/Vol] 140 mmol/L Normal 133-145 [facility] Comment on above: Performed By: #### L 501.9520, L100.0100, L501.2300, L500.4050, L501.5200 #### [facility] [address] [place], [address] Urea nitrogen [Mass/Vol] 7 mg/dL Normal 4-19 [facility] Comment on above: Performed By: #### L 501.9520, L100.0100, L501.2300, L500.4050, L501.5200 #### [facility] [address] [place], [address] CBC-Complete Blood Cnt No Di ffon 09-07-2024 Erythrocyte distribution width (RBC) [Ratio] 13.9 % Normal 11.6-14.6 [facility] Comment on above: Performed By: #### L 501.9520, L100.0100, L501.2300, L500.4050, L501.5200 #### [facility] [address] [place], [address] Hematocrit (Bld) [Volume fraction] 35.5 % Low 37-47 [facility] Comment on above: Performed By: #### L 501.9520, L100.0100, L501.2300, L500.4050, L501.5200 #### [facility] [address] [place], [address] Hemoglobin (Bld) [Mass/Vol] 11.7 g/dL Low 12.0-15.0 [facility] Comment on above: Performed By: #### L 501.9520, L100.0100, L501.2300, L500.4050, L501.5200 #### [facility] [address] [place], [address] MCH (RBC) [Entitic mass] 31.8 pg Normal 27.0-32.0 [facility] Comment on above: Performed By: #### L 501.9520, L100.0100, L501.2300, L500.4050, L501.5200 #### [facility] [address] [place], [address] MCHC (RBC) [Mass/Vol] 33.0 g/dL Normal 32-36 [facility] Comment on above: Performed By: #### L 501.9520, L100.0100, L501.2300, L500.4050, L501.5200 #### [facility] [address] [place], [address] MCV (RBC) [Entitic vol] 96.5 fL Normal 81-99 [facility] Comment on above: Performed By: #### L 501.9520, L100.0100, L501.2300, L500.4050, L501.5200 #### [facility] [address] [place], [address] Platelet mean volume (Bld) [Entitic vol] 10.9 fL Normal 6.2-12.0 [facility] Comment on above: Performed By: #### L 501.9520, L100.0100, L501.2300, L500.4050, L501.5200 #### [facility] [address] [place], [address] Platelets (Bld) [#/Vol] 249 10*3/uL Normal 150-450 [facility] Comment on above: Performed By: #### L 501.9520, L100.0100, L501.2300, L500.4050, L501.5200 #### [facility] [address] [place], [address] RBC (Bld) [#/Vol] 3.68 10*6/uL Low 4.2-5.4 [facility] Comment on above: Performed By: #### L 501.9520, L100.0100, L501.2300, L500.4050, L501.5200 #### [facility] [address] [place], [address] RDW SD 49.5 fl High 35.1-43.9 [facility] Comment on above: Performed By: #### L 501.9520, L100.0100, L501.2300, L500.4050, L501.5200 #### [facility] [address] [place], [address] WBC (Bld) [#/Vol] 6.6 10*3/uL Normal 4.4-11.0 [facility] Comment on above: Performed By: #### L 501.9520, L100.0100, L501.2300, L500.4050, L501.5200 #### [facility] [address] [place], [address] Carbon dioxide, total [Moles /volume] in Central venous bloodOrdered By: Jeni Ann on 09-07-2024 CO2 [Moles/Vol] 24.0 mmol/L 21.0-32.0 [facility] Chloride assayOrdered By: Dayday Ann on 09-07-2024 Chloride [Moles/Vol] 107 mmol/L 98-108 [facility] Electrocardiogram reportOrde red By: Panfilo Reese on 09-07-2024 EKG study [facility] Cardiovascular Services [address] [place] [address] 12 Lead EKG 09/06/24 0544 MR#: [id number] Acct: [id number] Name: BREATONYAVIKI MAYA Rep #:[id number] : 1960 64 From: Panfilo Reese MD Attending Dr: DO Orlando Torres tatus: ADM IN Ordering Dr: Grey Roberts MD Date: 09/06/24 Location: [facility] Sex: F C Admitted: 09/05/24 Test Reason : am ekg Blood Pressure : */* mmHG Vent. Rate : 78 BPM Atrial Rate : 78 BPM P-R Int : 130 ms QRS Dur : 58 ms QT Int : 388 ms P-R-T Axes : 1 26 28 degrees QTcB Int : 442 ms Normal sinus rhythm Normal ECG Confirmed by ALISHA LEVY, PANFILO ([id number]), film editor GERRI ARMIJO ([id number]) on 09/07/2024 1:37:55 PM Referred By: Seth Confirmed By: PANFILO REESE MD 09/07/24 1338 Date _ Panfilo Reese MD CC: Dr. Grey Roberts MD; Dr. Michelle Marroquin MD; Dr. Jeni Ann, ~ Signed [facility] Other Phone: Erythrocyte distribution wid th ratioOrdered By: Jeni Ann on 09-07-2024 Erythrocyte distribution width (RBC) [Ratio] 13.9 % 11.6-14.6 [facility] Erythrocyte distribution wid th standard deviationOrdered By: Jeni Ann on 09-07-2024 Erythrocyte distribution width (RBC) [Ratio] 49.5 fl High 35.1-43.9 [facility] Glomerular filtration rate ( GFR) estimation/1.73 sq m using serum, plasma, or whole bOrdered By: Jeni Ann on 09-07-2024 GFR/1.73 sq M.predicted among non-blacks MDRD (S/P/Bld) [Vol rate/Area] 107 mL/min/{1.73_m2} >60 [facility] Comment on above: mL/min/1.73m2 CKD-EP I Creatinine Equation (2020) Hematocrit Auto (Bld) [Volum e fraction]Ordered By: Jeni Ann on 09-07-2024 Hematocrit (Bld) [Volume fraction] 35.5 % Low 37-47 [facility] Hemoglobinon 09-07-2024 Hemoglobin (Bld) [Mass/Vol] 12.9 g/dL Normal 12.0-15.0 [facility] Comment on above: Order Comment: PREVI OUS SPECIMEN HEMOLYZED Performed By: #### L 100.1300 #### [facility] [place], [address] Hemoglobin measurementOrdere d By: Jeni Ann on 09-07-2024 Hemoglobin (Bld) [Mass/Vol] 12.9 g/dL 12.0-15.0 [facility] MCV (mean corpuscular volume ) determinationOrdered By: Jeni Ann on 09-07-2024 MCV (RBC) [Entitic vol] 96.5 fL 81-99 [facility] Mean corpuscular hemoglobin (MCH) determinationOrdered By: Jeni Ann on 09-07-2024 MCH (RBC) [Entitic mass] 31.8 pg 27.0-32.0 [facility] Mean corpuscular hemoglobin concentration (MCHC) determinationOrdered By: Jeni Ann on 09-07-2024 MCHC (RBC) [Mass/Vol] 33.0 g/dL 32-36 [facility] Mean platelet volume determi nationOrdered By: Jeni Ann on 09-07-2024 Platelet mean volume (Bld) [Entitic vol] 10.9 fL 6.2-12.0 [facility] Platelet countOrdered By: Dayday Ann on 09-07-2024 Platelets (Bld) [#/Vol] 249 10*3/uL 150-450 [facility] Potassium measurement (mass/ volume)Ordered By: Jeni Ann on 09-07-2024 Potassium (Unsp spec) [Mass/Vol] 3.9 mmol/L 3.3-5.1 [facility] RBC Auto (Bld) [#/Vol]Ordere d By: Jeni Ann on 09-07-2024 RBC (Bld) [#/Vol] 3.68 10*6/uL Low 4.2-5.4 [facility] Serum creatinine measurement (mass/volume)Ordered By: Jeni Ann on 09-07-2024 Creatinine [Mass/Vol] 0.47 mg/dL Low 0.70-1.20 [facility] Serum glucose measurement (m ass/volume)Ordered By: Jeni Ann on 09-07-2024 Glucose [Mass/Vol] 107 mg/dL High 70-99 [facility] Serum or plasma calcium kamilah urement (mass/volume)Ordered By: Jeni Ann on 09-07-2024 Calcium [Mass/Vol] 8.3 mg/dL 7.6-11.0 [facility] Serum or plasma urea nitroge n measurement (mass/volume)Ordered By: Jeni Ann on 09-07-2024 Urea nitrogen [Mass/Vol] 7 mg/dL 4-19 [facility] Sodium levelOrdered By: Shaunna Ann on 09-07-2024 Sodium [Moles/Vol] 140 mmol/L 133-145 [facility] White blood cell (WBC) count Ordered By: Jeni Ann on 09-07-2024 WBC (Bld) [#/Vol] 6.6 10*3/uL 4.4-11.0 [facility] 12 Lead EKGon 09-06-2024 12 Lead EKG [facility] Cardiovascular Services [address] [place] [address] 12 Lead EKG 09/06/24 0544 MR#: [id number] Acct: [id number] Name: TONYA FLETCHER Rep #: [id number] : 1960 64 From: Panfilo Reese MD Attending Dr: Dr. Jeni Ann, DO Status: ADM I N Ordering Dr: Grey Roberts MD Date: 09/06/24 Location[place] [facility] [place] Sex: F C Admitted: 09/05/24 Test Reason : am ekg Blood Pressure : */* mmHG Vent. Rate : 78 BPM Atrial Rate : 78 BPM P-R Int : 130 ms QRS Dur : 58 ms QT Int : 388 ms P-R-T Axes : 1 26 28 degrees QTcB Int : 442 ms Normal sinus rhythm Normal ECG Confirmed by PANFILO REESE MD ([id number]), film editor GERRI ARMIJO ([id number]) on 09/07/2024 1:37:55 PM Referred By: Seth Confirmed By: PANFILO REEES MD 09/07/24 1338 Date Panfilo Reese MD CC: Dr. Grey Roberts MD; Dr. Michelle Marroquin MD; Dr. Jeni Ann, DO Signed Normal [facility] Absolute lymphocyte countOrd ered By: Jeni Ann on 09-06-2024 Lymphocytes Auto (Unsp spec) [#/Vol] 2.85 10*3/uL 0.83-4.51 [facility] Absolute neutrophil countOrd ered By: Jeni Ann on 09-06-2024 Neutrophils (Bld) [#/Vol] 3.5 10*3/uL 2.0-7.7 [facility] Automated lymphocyte count a s percentage of total leukocytesOrdered By: Jeni Ann on 09-06-2024 Lymphocytes/100 WBC Auto (Unsp spec) 40.6 % 19-41 [facility] Basophil percentageOrdered B y: Jeni Ann on 09-06-2024 Basophils/100 WBC (Bld) 0.7 % 0-1 [facility] Bilirubin, totalOrdered By: Jeni Ann on 09-06-2024 Bilirubin [Mass/Vol] 0.53 mg/dL 0.00-1.30 [facility] CBC W/Diff, Automatedon 08-10 Absolute Lymph 2.85 X10 3/uL Normal 0.83-4.51 [facility] Comment on above: Performed By: #### L 501.9520, L100.0100, L501.2300, L500.4050, L501.5200 #### [facility] [address] [place], [address] Absolute Neut 3.5 X10 3/uL Normal 2.0-7.7 [facility] Comment on above: Performed By: #### L 501.9520, L100.0100, L501.2300, L500.4050, L501.5200 #### [facility] [address] [place], [address] Basophils/100 WBC (Bld) 0.7 % Normal 0-1 [facility] Comment on above: Performed By: #### L 501.9520, L100.0100, L501.2300, L500.4050, L501.5200 #### [facility] [address] [place], [address] Eosinophils/100 WBC (Bld) 2.8 % Normal 0-5 [facility] Comment on above: Performed By: #### L 501.9520, L100.0100, L501.2300, L500.4050, L501.5200 #### [facility] [address] [place], [address] Erythrocyte distribution width (RBC) [Ratio] 13.8 % Normal 11.6-14.6 [facility] Comment on above: Performed By: #### L 501.9520, L100.0100, L501.2300, L500.4050, L501.5200 #### [facility] [address] [place], [address] Hematocrit (Bld) [Volume fraction] 36.6 % Low 37-47 [facility] Comment on above: Performed By: #### L 501.9520, L100.0100, L501.2300, L500.4050, L501.5200 #### [facility] [address] [place], [address] Hemoglobin (Bld) [Mass/Vol] 12.1 g/dL Normal 12.0-15.0 [facility] Comment on above: Performed By: #### L 501.9520, L100.0100, L501.2300, L500.4050, L501.5200 #### [facility] [address] [place], [address] IG% 0.300 Normal 0.0-0.9 [facility] Comment on above: Result Comment: IG% - Immature Granulocytes (promyelocytes, myelocytes and metamyelocytes) > 1% indicates that a LEFT SHIFT is Present. Performed By: #### L 501.9520, L100.0100, L501.2300, L500.4050, L501.5200 #### [facility] [address] [place], [address] Lymphocytes/100 WBC (Bld) 40.6 % Normal 19-41 [facility] Comment on above: Performed By: #### L 501.9520, L100.0100, L501.2300, L500.4050, L501.5200 #### [facility] [address] [place], [address] MCH (RBC) [Entitic mass] 32.0 pg Normal 27.0-32.0 [facility] Comment on above: Performed By: #### L 501.9520, L100.0100, L501.2300, L500.4050, L501.5200 #### [facility] [address] [place], [address] MCHC (RBC) [Mass/Vol] 33.1 g/dL Normal 32-36 [facility] Comment on above: Performed By: #### L 501.9520, L100.0100, L501.2300, L500.4050, L501.5200 #### [facility] [address] [place], [address] MCV (RBC) [Entitic vol] 96.8 fL Normal 81-99 [facility] Comment on above: Performed By: #### L 501.9520, L100.0100, L501.2300, L500.4050, L501.5200 #### [facility] [address] [place], [address] Monocytes/100 WBC (Bld) 5.8 % Normal 0-10 [facility] Comment on above: Performed By: #### L 501.9520, L100.0100, L501.2300, L500.4050, L501.5200 #### [facility] [address] [place], [address] Neutrophils/100 WBC (Bld) 49.8 % Normal 47-70 [facility] Comment on above: Performed By: #### L 501.9520, L100.0100, L501.2300, L500.4050, L501.5200 #### [facility] [address] [place], [address] Nucleated RBC (Bld) [#/Vol] 0 10*3/uL Normal 0-5 [facility] Comment on above: Performed By: #### L 501.9520, L100.0100, L501.2300, L500.4050, L501.5200 #### [facility] [address] [place], [address] Platelet mean volume (Bld) [Entitic vol] 11.0 fL Normal 6.2-12.0 [facility] Comment on above: Performed By: #### L 501.9520, L100.0100, L501.2300, L500.4050, L501.5200 #### [facility] [address] [place], [address] Platelets (Bld) [#/Vol] 270 10*3/uL Normal 150-450 [facility] Comment on above: Performed By: #### L 501.9520, L100.0100, L501.2300, L500.4050, L501.5200 #### [facility] [address] [place], [address] RBC (Bld) [#/Vol] 3.78 10*6/uL Low 4.2-5.4 [facility] Comment on above: Performed By: #### L 501.9520, L100.0100, L501.2300, L500.4050, L501.5200 #### [facility] [address] [place], [address] RDW SD 49.1 fl High 35.1-43.9 [facility] Comment on above: Performed By: #### L 501.9520, L100.0100, L501.2300, L500.4050, L501.5200 #### [facility] [address] [place], [address] WBC (Bld) [#/Vol] 7.0 10*3/uL Normal 4.4-11.0 [facility] Comment on above: Performed By: #### L 501.9520, L100.0100, L501.2300, L500.4050, L501.5200 #### [facility] [address] [place], [address] Comprehensive Metabolic Prof [facility] 09-06-2024 Albumin [Mass/Vol] 3.5 g/dL Normal 3.4-4.8 [facility] Comment on above: Performed By: #### L 501.9520, L100.0100, L501.2300, L500.4050, L501.5200 #### [facility] [address] [place], [address] Albumin/Globulin [Mass ratio] 1.4 {ratio} Normal 0.9-2.4 [facility] Comment on above: Performed By: #### L 501.9520, L100.0100, L501.2300, L500.4050, L501.5200 #### [facility] [address] [place], [address] ALK PHOS 80 U/L Normal 35-104 [facility] Comment on above: Performed By: #### L 501.9520, L100.0100, L501.2300, L500.4050, L501.5200 #### [facility] [address] [place], [address] ALT [Catalytic activity/Vol] U/L Normal <=34 [facility] Comment on above: Performed By: #### L 501.9520, L100.0100, L501.2300, L500.4050, L501.5200 #### [facility] [address] [place], [address] AST [Catalytic activity/Vol] 13 U/L Normal <=31 [facility] Comment on above: Performed By: #### L 501.9520, L100.0100, L501.2300, L500.4050, L501.5200 #### [facility] [address] [place], [address] Bilirubin [Mass/Vol] 0.53 mg/dL Normal 0.00-1.30 [facility] Comment on above: Performed By: #### L 501.9520, L100.0100, L501.2300, L500.4050, L501.5200 #### [facility] [address] [place], [address] BUN/CRE 14.4 RATIO Normal 10-20 [facility] Comment on above: Performed By: #### L 501.9520, L100.0100, L501.2300, L500.4050, L501.5200 #### [facility] [address] [place], [address] Calcium [Mass/Vol] 8.9 mg/dL Normal 7.6-11.0 [facility] Comment on above: Performed By: #### L 501.9520, L100.0100, L501.2300, L500.4050, L501.5200 #### [facility] [address] [place], [address] Chloride [Moles/Vol] 108 mmol/L Normal 98-108 [facility] Comment on above: Performed By: #### L 501.9520, L100.0100, L501.2300, L500.4050, L501.5200 #### [facility] [address] [place], [address] CO2 [Moles/Vol] 24.4 mmol/L Normal 21.0-32.0 [facility] Comment on above: Performed By: #### L 501.9520, L100.0100, L501.2300, L500.4050, L501.5200 #### [facility] [address] [place], [address] Creatinine [Mass/Vol] 0.49 mg/dL Low 0.70-1.20 [facility] Comment on above: Performed By: #### L 501.9520, L100.0100, L501.2300, L500.4050, L501.5200 #### [facility] [address] [place], [address] ECRCL 92.72 ml/min Normal 50-250 [facility] Comment on above: Performed By: #### L 501.9520, L100.0100, L501.2300, L500.4050, L501.5200 #### [facility] [address] [place], [address] GAP 10 Normal 5-15 [facility] Comment on above: Performed By: #### L 501.9520, L100.0100, L501.2300, L500.4050, L501.5200 #### [facility] [address] [place], [address] GFR/1.73 sq M.predicted among non-blacks MDRD (S/P/Bld) [Vol rate/Area] 106 mL/min/{1.73_m2} Normal >60 [facility] Comment on above: Result Comment: mL/m in/1.73m2 CKD-EPI Creatinine Equation (2020) Performed By: #### L 501.9520, L100.0100, L501.2300, L500.4050, L501.5200 #### [facility] [address] [place], [address] Globulin (S) [Mass/Vol] 2.6 g/dL Normal 2.2-4.2 [facility] Comment on above: Performed By: #### L 501.9520, L100.0100, L501.2300, L500.4050, L501.5200 #### [facility] [address] [place], [address] Glucose [Mass/Vol] 99 mg/dL Normal 70-99 [facility] Comment on above: Performed By: #### L 501.9520, L100.0100, L501.2300, L500.4050, L501.5200 #### [facility] [address] [place], [address] Potassium [Moles/Vol] 3.7 mmol/L Normal 3.3-5.1 [facility] Comment on above: Performed By: #### L 501.9520, L100.0100, L501.2300, L500.4050, L501.5200 #### [facility] [address] [place], [address] Sodium [Moles/Vol] 142 mmol/L Normal 133-145 [facility] Comment on above: Performed By: #### L 501.9520, L100.0100, L501.2300, L500.4050, L501.5200 #### [facility] [address] [place], [address] T PROT 6.1 g/dL Normal 5.9-8.4 [facility] Comment on above: Performed By: #### L 501.9520, L100.0100, L501.2300, L500.4050, L501.5200 #### [facility] [address] [place], [address] Urea nitrogen [Mass/Vol] 7 mg/dL Normal 4-19 [facility] Comment on above: Performed By: #### L 501.9520, L100.0100, L501.2300, L500.4050, L501.5200 #### [facility] [address] [place], [address] EGD Reporton 09-06-2024 EGD Report [facility] Medical Records Department [address] [place] [address] EGD Report MR#: [id number] Acct: [id number] Name: TONYA FLETCHER Rep #: [id number] : 1960 64 From: Stalin Kuhn DO PCP: Dr. Michelle Marroquin MD Status:ADM IN Patient Name: Tonay Fletcher Procedure Date: 09/06/2024 1:13 PM Date of : 1960 Age: 64 Procedure: Upper GI endoscopy Indications: Coffee-ground emesis Providers: Stalin Kuhn DO Medicines: Monitored Anesthesia Care Patient Profile: This is a 64 year old female. Refer to note in patient chart for documentation of history and physical. Patient has symptoms of acute nausea and acute vomiting. Complications: No immediate complications. Procedure: Pre-Anesthesia Assessment: - Prior to the procedure, a History and Physical was performed, and patient medications and allergies were reviewed. The patient is competent. The risks and benefits of the procedure and the sedation options and risks were discussed with the patient. All questions were answered and informed consent was obtained. Patient identification and proposed procedure were verified by the physician in the pre-procedure area. Mental Status Examination: alert and oriented. Airway Examination: normal oropharyngeal airway and neck mobility. Respiratory Examination: clear to auscultation. CV Examination: normal. Prophylactic Antibiotics: The patient does not require prophylactic antibiotics. Prior Anticoagulants: The patient has taken no anticoagulant or antiplatelet agents except for NSAID medication. ASA Grade Assessment: II - A patient with mild systemic disease. After reviewing the risks and benefits, the patient was deemed in satisfactory condition to undergo the procedure. The anesthesia plan was to use monitored anesthesia care (MAC). Immediately prior to administration of medications, the patient was re-assessed for adequacy to receive sedatives. The heart rate, respiratory rate, oxygen saturations, blood pressure, adequacy of pulmonary ventilation, and response to care were monitored throughout the procedure. The physical status of the patient was re-assessed after the procedure. After obtaining informed consent, the endoscope was passed under direct vision. Throughout the procedure, the patient's blood pressure, pulse, and oxygen saturations were monitored continuously. The Endoscope was introduced through the mouth, and advanced to the third part of the duodenum. Small bowel enteroscopy was deemed necessary. The upper GI endoscopy was accomplished without difficulty. The patient tolerated the procedure well. Scope In: 1:29:34 PM Scope Out: 1:33:46 PM Total Procedure Duration Time 0 hours 4 minutes 12 seconds Findings: LA Grade D (one or more mucosal breaks involving at least 75% of esophageal circumference) esophagitis with no bleeding was found 34 to 40 cm from the incisors. There were esophageal mucosal changes secondary to established long-segment Arias's disease present in the middle third of the esophagus and in the lower third of the esophagus. The maximum longitudinal extent of these mucosal changes was 15 cm in length. Mucosa was biopsied with a cold forceps for histology in a targeted manner at intervals of 1 cm in the lower third of the esophagus. One specimen bottle was sent to pathology. Verification of patient identification for the specimen was done. Estimated blood loss was minimal. No gross lesions were noted in the entire examined stomach. A large hiatal hernia was present. No gross lesions were noted in the third portion of the duodenum. Impression: - LA Grade D erosive esophagitis with no bleeding. 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 Biopsied. - No gross lesions in the entire stomach. - Large hiatal hernia. - No gross lesions in the third portion of the duodenum. Recommendation: - [facility] care. - Full liquid diet. - Continue present medications. Procedure Code(s): --- Professional --- 33750, Small intestinal endoscopy, enteroscopy beyond second portion of duodenum, not including ileum; with biopsy, single or multiple CPT copyright 2021 [employer]. All rights reserved. The codes documented in this report are preliminary and upon skid worker review may be revised to meet current compliance requirements. Stalin Kuhn DO 09/06/2024 1:43:16 PM This report has been signed electronically. Number of Addenda: 0 Note Initiated On: 09/06/2024 1:13 PM 09/06/24 1343 Date Stalin Kuhn DO Cosigner Signature: Date (if indicated) CC: Dr. Michelle Marroquin MD; Stalin Kuhn DO (more content not included)... Normal [facility] Eosinophil percentageOrdered By: Jeni Ann on 09-06-2024 Eosinophils/100 WBC (Bld) 2.8 % 0-5 [facility] HH, Hemoglobin AND Hematocri ton 09-06-2024 Hematocrit (Bld) [Volume fraction] 37.4 % Normal 37-47 [facility] Comment on above: Order Comment: RE-TI MED TO 6HRS POST MORNING LABS-PER PAULINO BATES Performed By: #### L 501.9520, L100.0100, L501.2300, L500.4050, L501.5200 #### [facility] [address] [place], [address] Hemoglobin (Bld) [Mass/Vol] 12.2 g/dL Normal 12.0-15.0 [facility] Comment on above: Order Comment: RE-TI MED TO 6HRS POST MORNING LABS-PER PAULINO BATES Performed By: #### L 501.9520, L100.0100, L501.2300, L500.4050, L501.5200 #### [facility] [address] [place], [address] Hematocrit (Bld) [Volume fraction] 36.6 % Low 37-47 [facility] Comment on above: Performed By: #### L 100.0600 #### [facility] [address] [facility] [place], [address] Hemoglobin (Bld) [Mass/Vol] 12.2 g/dL Normal 12.0-15.0 [facility] Comment on above: Performed By: #### L 100.0600 #### [facility] [address] [place], [address] Immature granulocytes/100 WB C Auto (Bld)Ordered By: Jeni Ann on 09-06-2024 Immature granulocytes/100 WBC (Bld) 0.300 % 0.0-0.9 [facility] Comment on above: IG% - Immature Granu locytes (promyelocytes, myelocytes and metamyelocytes) > 1% indicates that a LEFT SHIFT is Present. Laboratory - Chemistry and C hemistry - challengeOrdered By: Jeni Ann on 09-06-2024 AST [Catalytic activity/Vol] 13 U/L <32 [facility] MR/POSTOP.ANEon 09-06-2024 MR/POSTOP.ANE [facility] Medical Records Department [address] [place] [address] Anesthesia Postop Eval I 09/06/24 1344 MR#: [id number] Acct: [id number] Name: TONYA FLETCHER Rep #: [id number] : 1960 64 From: Brian Su CRNA PCP: Dr. Michelle Marroquin MD Status:ADM IN Y Race: C Location: [place] [address] Anesthesia: Postop Eval I Current Vital Signs Temperature: 97 F Pulse Rate: 90 Blood Pressure: 101/50 Respiratory Rate: 16 Pulse Ox: 94 Assessment Airway patent: Yes Spontaneous unlabored respirations: Yes nausea: No Vomiting: No Anesthesia Complication: No Fluid Hydration Crystalloid volume administer (ml): 400 Total IV fluid infused: 400 Progress Note Anesthesia document: Postop Eval 1 completed: Yes 09/06/24 1345 Date Brian Richardsonbitt CORE WINDER Cosigner Signature: Date CC: Signed Normal [facility] MR/[id number] 09-06-2024 [facility] Medical Records Department [address] [place] [address] Anesthesia Postop Eval II 09/06/24 1645 MR#: [id number] Acct: [id number] Name: TONYA FLETCHER Rep #: [id number] : 1960 64 From: Arlet Mcdonald CRNA PCP: Dr. Michelle Marroquin MD Status:ADM IN Y Race: C Location: [place] [address] Anesthesia Postop Eval I Sum Postop Eval Completion status Anesthesia document: Postop Eval 1 completed: Yes Anesthesia Postop Eval I Summary Anesthesia Postop Eval I Summary: Anesthesia Postop Eval I: Assessment Summary Airway patent Yes 09/06/24 13:44 [email or web address] Spontaneous unlabored Yes 09/06/24 13:44 CORE [email or web address] respirations Mental status nausea No 09/06/24 13:44 CORE [email or web address] Vomiting No 09/06/24 13:44 CORE [email or web address] Anesthesia Postop Eval I: Fluid Summary Crystalloid volume administer 400 09/06/24 13:44 CORE [email or web address] (ml) Colloids volume administered ( ml) Blood Product volume administered (ml) Total IV fluid infused 400 09/06/24 13:44 [email or web address] [email or web address] Anesthesia Postop Eval I: Summary Notes Anesthesia Complication No 09/06/24 13:44 CORE [email or web address] Anesthesia Complication Comment: Post-operative progress note Anesthesia: Postop Eval II Evaluation Mental status: Awake Pain Level: 1 nausea: No Vomiting: No 09/06/24 1645 Date Arlet Mcdonald CRNA Cosigner Signature: Date CC: Signed Normal [facility] Magnesiumon 09-06-2024 Magnesium [Mass/Vol] 1.9 mg/dL Normal 1.5-2.2 [facility] Comment on above: Performed By: #### L 501.9520, L100.0100, L501.2300, L500.4050, L501.5200 #### [facility] [address] [place], [place], [id number] Magnesium measurement (mass/ volume)Ordered By: Jeni Ann on 09-06-2024 Magnesium (Unsp spec) [Mass/Vol] 1.9 mg/dL 1.5-2.2 [facility] Monocyte percentageOrdered B y: Jeni Ann on 09-06-2024 Monocytes/100 WBC (Bld) 5.8 % 0-10 [facility] Neutrophil percentageOrdered By: Jeni Ann on 09-06-2024 Neutrophils/100 WBC (Bld) 49.8 % 47-70 [facility] Nucleated red blood cell per centageOrdered By: Jeni Ann on 09-06-2024 Nucleated RBC/100 WBC (Bld) [Ratio] 0 % 0-5 [facility] Phosphoruson 09-06-2024 Phosphate [Mass/Vol] 3.4 mg/dL Normal 2.7-4.5 [facility] Comment on above: Performed By: #### L 501.9520, L100.0100, L501.2300, L500.4050, L501.5200 #### [facility] [address] [place], [address] Serum globulin measurementOr dered By: Jeni Ann on 09-06-2024 Globulin (S) [Mass/Vol] 2.6 g/dL 2.2-4.2 [facility] Serum or plasma alanine barrios otransferase (ALT) measurementOrdered By: Jeni Ann on 09-06-2024 ALT [Catalytic activity/Vol] U/L <35 [facility] Serum or plasma albumin kamilah urement (mass/volume)Ordered By: Jeni Ann on 09-06-2024 Albumin [Mass/Vol] 3.5 g/dL 3.4-4.8 [facility] Serum or plasma albumin/glob ulin mass ratioOrdered By: Jeni Ann on 09-06-2024 Albumin/Globulin [Mass ratio] 1.4 {ratio} 0.9-2.4 [facility] Serum or plasma alkaline sandrita sphatase measurementOrdered By: Jeni Ann on 09-06-2024 ALP [Catalytic activity/Vol] 80 U/L 35-104 [facility] Surgery Specimen Level Veronika 09-06-2024 Surgery Specimen Level IV Patient Age/Sex Location Account Attending Physician TONYA FLETCHER 64/F MS3 [id number] Dr. Jeni Ann, Specimen: [id number] Received: 09/07/24 Status: LOIDA Maynard Num: [id number] Spec Type: EGD BIOPSY Subm Dr: Stalin Kuhn, HEADER OPERATION: EGD with biopsy PRE-OP DIAGNOSIS: Hematemesis TISSUE SUBMITTED: A- Distal esophagus biopsy MICROSCOPIC DIAGNOSIS A. Distal esophagus, biopsy: - Arias mucosa negative for dysplasia. MICROSCOPIC DESCRIPTION Slides are reviewed. GROSS DESCRIPTION A. Received in fixative is one container labeled with the patient's name and designated Distal esophagus biopsy. The specimen consists of three irregular fragments of light south soft tissue that in aggregate measure 0.1 to 0.5 cm. The specimen is totally submitted in one cassette. Juan David 09/07/2024 CPT:84268 Patient Age/Sex Location Account Attending Physician TONYA FLETCHER 64/F MS3 [id number] Dr. Jeni Ann, DO Signed (signature on file) Dr. Jennifer Oshea MD 09/17/24 1229 Normal [facility] Comment on above: Performed By: #### L 501.9520, L100.0100, L501.2300, L500.4050, L501.5200 #### [facility] [address] [facility] [place], [place], [id number] TSH DL <= 0.005 mIU/L QnOrde red By: Jeni Ann on 09-06-2024 TSH Qn 2.270 uIU/mL 0.300-4.200 [facility] Thyroid Stim Hormone (TSH)on 09-06-2024 TSH 2.270 uIU/mL Normal 0.300-4.200 [facility] Comment on above: Performed By: #### L 501.9520, L100.0100, L501.2300, L500.4050, L501.5200 #### [facility] [address] [place], [address] Total proteinOrdered By: Cassandra santa Seth on 09-06-2024 Protein [Mass/Vol] 6.1 g/dL 5.9-8.4 [facility] Absolute lymphocyte countOrd ered By: Dominguez Bolotn on 09-05-2024 Lymphocytes Auto (Unsp spec) [#/Vol] 3.45 10*3/uL 0.83-4.51 [facility] Absolute neutrophil countOrd ered By: Dominguez Bolton on 09-05-2024 Neutrophils (Bld) [#/Vol] 7.5 10*3/uL 2.0-7.7 [facility] Activated partial thrombopla stin time (aPTT) in platelet poor plasma by coagulation aOrdered By: Dominguez Bolton on 09-05-2024 aPTT Coag (PPP) [Time] 27.9 s 24.1-36.2 [facility] Anion gap in Serum or Plasma Ordered By: Dominguez Bolton on 09-05-2024 Anion gap [Moles/Vol] 12 mmol/L 5-15 [facility] Automated lymphocyte count a s percentage of total leukocytesOrdered By: Dominguez Bolton on 09-05-2024 Lymphocytes/100 WBC Auto (Unsp spec) 28.4 % 19-41 [facility] BUN/creatinine ratioOrdered By: Dominguez Bolton on 09-05-2024 Urea nitrogen/Creatinine [Mass ratio] 22.1 mg/mg High 10-20 [facility] Basophil percentageOrdered B y: Dominguez Bolton on 09-05-2024 Basophils/100 WBC (Bld) 0.8 % 0-1 [facility] Bilirubin, totalOrdered By: Dominguez Bolton on 09-05-2024 Bilirubin [Mass/Vol] 0.39 mg/dL 0.00-1.30 [facility] CBC W/Diff, Automatedon 08-09 Absolute Lymph 3.45 X10 3/uL Normal 0.83-4.51 [facility] Comment on above: Performed By: #### L 300.3900, L300.4310, L500.4050, BTS, L100.0100 #### [facility] [address] [place], [place], [id number] Absolute Neut 7.5 X10 3/uL Normal 2.0-7.7 [facility] Comment on above: Performed By: #### L 300.3900, L300.4310, L500.4050, BTS, L100.0100 #### [facility] [address] [place], [address] Basophils/100 WBC (Bld) 0.8 % Normal 0-1 [facility] Comment on above: Performed By: #### L 300.3900, L300.4310, L500.4050, BTS, L100.0100 #### [facility] [address] [place], [address] Eosinophils/100 WBC (Bld) 2.5 % Normal 0-5 [facility] Comment on above: Performed By: #### L 300.3900, L300.4310, L500.4050, BTS, L100.0100 #### [facility] [address] [place], [address] Erythrocyte distribution width (RBC) [Ratio] 13.5 % Normal 11.6-14.6 [facility] Comment on above: Performed By: #### L 300.3900, L300.4310, L500.4050, BTS, L100.0100 #### [facility] [address] [place], [address] Hematocrit (Bld) [Volume fraction] 41.2 % Normal 37-47 [facility] Comment on above: Performed By: #### L 300.3900, L300.4310, L500.4050, BTS, L100.0100 #### [facility] [address] [place], [address] Hemoglobin (Bld) [Mass/Vol] 13.9 g/dL Normal 12.0-15.0 [facility] Comment on above: Performed By: #### L 300.3900, L300.4310, L500.4050, BTS, L100.0100 #### [facility] [address] [place], [address] IG% 0.200 Normal 0.0-0.9 [facility] Comment on above: Result Comment: IG% - Immature Granulocytes (promyelocytes, myelocytes and metamyelocytes) > 1% indicates that a LEFT SHIFT is Present. Performed By: #### L 300.3900, L300.4310, L500.4050, BTS, L100.0100 #### [facility] [address] [place], [address] Lymphocytes/100 WBC (Bld) 28.4 % Normal 19-41 [facility] Comment on above: Performed By: #### L 300.3900, L300.4310, L500.4050, BTS, L100.0100 #### [facility] [address] [place], [address] MCH (RBC) [Entitic mass] 32.0 pg Normal 27.0-32.0 [facility] Comment on above: Performed By: #### L 300.3900, L300.4310, L500.4050, BTS, L100.0100 #### [facility] [address] [place], [address] MCHC (RBC) [Mass/Vol] 33.7 g/dL Normal 32-36 [facility] Comment on above: Performed By: #### L 300.3900, L300.4310, L500.4050, BTS, L100.0100 #### [facility] [address] [place], [address] MCV (RBC) [Entitic vol] 94.9 fL Normal 81-99 [facility] Comment on above: Performed By: #### L 300.3900, L300.4310, L500.4050, BTS, L100.0100 #### [facility] [address] [place], [address] Monocytes/100 WBC (Bld) 6.0 % Normal 0-10 [facility] Comment on above: Performed By: #### L 300.3900, L300.4310, L500.4050, BTS, L100.0100 #### [facility] [address] [place], [address] Neutrophils/100 WBC (Bld) 62.1 % Normal 47-70 [facility] Comment on above: Performed By: #### L 300.3900, L300.4310, L500.4050, BTS, L100.0100 #### [facility] [address] [place], [address] Nucleated RBC (Bld) [#/Vol] 0 10*3/uL Normal 0-5 [facility] Comment on above: Performed By: #### L 300.3900, L300.4310, L500.4050, BTS, L100.0100 #### [facility] [address] [place], [address] Platelet mean volume (Bld) [Entitic vol] 11.2 fL Normal 6.2-12.0 [facility] Comment on above: Performed By: #### L 300.3900, L300.4310, L500.4050, BTS, L100.0100 #### [facility] [address] [place], [address] Platelets (Bld) [#/Vol] 263 10*3/uL Normal 150-450 [facility] Comment on above: Performed By: #### L 300.3900, L300.4310, L500.4050, BTS, L100.0100 #### [facility] [address] [place], [address] RBC (Bld) [#/Vol] 4.34 10*6/uL Normal 4.2-5.4 [facility] Comment on above: Performed By: #### L 300.3900, L300.4310, L500.4050, BTS, L100.0100 #### [facility] [address] [place], [address] RDW SD 47.7 fl High 35.1-43.9 [facility] Comment on above: Performed By: #### L 300.3900, L300.4310, L500.4050, BTS, L100.0100 #### [facility] [address] [place], [address] WBC (Bld) [#/Vol] 12.1 10*3/uL High 4.4-11.0 [facility] Comment on above: Performed By: #### L 300.3900, L300.4310, L500.4050, BTS, L100.0100 #### [facility] [address] [place], [address] Carbon dioxide, total [Moles /volume] in Central venous bloodOrdered By: Dominguez Bolton on 09-05-2024 CO2 [Moles/Vol] 24.1 mmol/L 21.0-32.0 [facility] Chloride assayOrdered By: Deyvi Bolton on 09-05-2024 Chloride [Moles/Vol] 104 mmol/L 98-108 [facility] Comprehensive Metabolic Prof ilon 09-05-2024 Albumin [Mass/Vol] 3.8 g/dL Normal 3.4-4.8 [facility] Comment on above: Performed By: #### L 300.3900, L300.4310, L500.4050, BTS, L100.0100 #### [facility] [address] [place], [address] Albumin/Globulin [Mass ratio] 1.2 {ratio} Normal 0.9-2.4 [facility] Comment on above: Performed By: #### L 300.3900, L300.4310, L500.4050, BTS, L100.0100 #### [facility] [address] [place], [address] ALK PHOS 86 U/L Normal 35-104 [facility] Comment on above: Performed By: #### L 300.3900, L300.4310, L500.4050, BTS, L100.0100 #### [facility] [address] [place], [address] ALT [Catalytic activity/Vol] 5 U/L Normal <=34 [facility] Comment on above: Performed By: #### L 300.3900, L300.4310, L500.4050, BTS, L100.0100 #### [facility] [address] [place], [address] AST [Catalytic activity/Vol] 15 U/L Normal <=31 [facility] Comment on above: Result Comment: Hemo lysis present, Results??could be affected. ?? Performed By: #### L 300.3900, L300.4310, L500.4050, BTS, L100.0100 #### [facility] [address] [place], [address] Bilirubin [Mass/Vol] 0.39 mg/dL Normal 0.00-1.30 [facility] Comment on above: Performed By: #### L 300.3900, L300.4310, L500.4050, BTS, L100.0100 #### [facility] [address] [place], [address] BUN/CRE 22.1 RATIO High 10-20 [facility] Comment on above: Performed By: #### L 300.3900, L300.4310, L500.4050, BTS, L100.0100 #### [facility] [address] [place], [address] Calcium [Mass/Vol] 9.0 mg/dL Normal 7.6-11.0 [facility] Comment on above: Performed By: #### L 300.3900, L300.4310, L500.4050, BTS, L100.0100 #### [facility] [address] [place], [address] Chloride [Moles/Vol] 104 mmol/L Normal 98-108 [facility] Comment on above: Performed By: #### L 300.3900, L300.4310, L500.4050, BTS, L100.0100 #### [facility] [address] [place], [address] CO2 [Moles/Vol] 24.1 mmol/L Normal 21.0-32.0 [facility] Comment on above: Performed By: #### L 300.3900, L300.4310, L500.4050, BTS, L100.0100 #### [facility] [address] [place], [address] Creatinine [Mass/Vol] 0.47 mg/dL Low 0.70-1.20 [facility] Comment on above: Performed By: #### L 300.3900, L300.4310, L500.4050, BTS, L100.0100 #### [facility] [address] [place], [address] GAP 12 Normal 5-15 [facility] Comment on above: Performed By: #### L 300.3900, L300.4310, L500.4050, BTS, L100.0100 #### [facility] [address] [place], [address] GFR/1.73 sq M.predicted among non-blacks MDRD (S/P/Bld) [Vol rate/Area] 107 mL/min/{1.73_m2} Normal >60 [facility] Comment on above: Result Comment: mL/m in/1.73m2 CKD-EPI Creatinine Equation (2020) Performed By: #### L 300.3900, L300.4310, L500.4050, BTS, L100.0100 #### [facility] [address] [place], [address] Globulin (S) [Mass/Vol] 3.1 g/dL Normal 2.2-4.2 [facility] Comment on above: Performed By: #### L 300.3900, L300.4310, L500.4050, BTS, L100.0100 #### [facility] [address] [place], [address] Glucose [Mass/Vol] 105 mg/dL High 70-99 [facility] Comment on above: Performed By: #### L 300.3900, L300.4310, L500.4050, BTS, L100.0100 #### [facility] [address] [place], [address] Potassium [Moles/Vol] 4.2 mmol/L Normal 3.3-5.1 [facility] Comment on above: Result Comment: Hemo lysis present, Results??could be affected. ?? Performed By: #### L 300.3900, L300.4310, L500.4050, BTS, L100.0100 #### [facility] [address] [place], [address] Sodium [Moles/Vol] 140 mmol/L Normal 133-145 [facility] Comment on above: Performed By: #### L 300.3900, L300.4310, L500.4050, BTS, L100.0100 #### [facility] [address] [place], [address] T PROT 6.9 g/dL Normal 5.9-8.4 [facility] Comment on above: Performed By: #### L 300.3900, L300.4310, L500.4050, BTS, L100.0100 #### [facility] [address] [place], [address] Urea nitrogen [Mass/Vol] 10 mg/dL Normal 4-19 [facility] Comment on above: Performed By: #### L 300.3900, L300.4310, L500.4050, BTS, L100.0100 #### [facility] [address] [place], [address] Emergency Department Summary on 09-05-2024 Emergency Department Summary [facility] Medical Records Department [address] [place] [address] Emergency Department Summary 09/05/24 MR#: [id number] Acct: [id number] Name: TONYA FLETCHER Rep #: [id number] : 1960 64 From: Dominguez Bolton MD PCP: Dr. Michelle Marroquin MD Status:REG ER Location: ED HPI HPI - GI History of Present Illness Chief Complaint: GI Bleed Informant: patient and other (Accompanied by a caregiver who gives the history. Patient has limited speech abilities.) Abdominal Pain/Flank Pain Onset: Today Current Severity: Mild Maximum Severity: Mild Nausea/Vomiting/Emesis GI Symptom: Positive for Nausea and Vomiting (X 1 today. Coffee-ground material.) Severity: Mild Diarrhea/Melena/Hematoc hezia GI Symptom: Negative for Diarrhea, Melena or Hematochezia Associated Symptoms Associated Symptoms: Negative for Dysuria or Frequency Narrative Narrative: 64-year-old female history of MRDD lives in an apartment has caregivers. 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 She has a pacemaker. Reportedly 1 week ago they thought she might add some dark emesis. Saw her primary care physician. Did not have the labs done at that time. Today had another episode of emesis that looked black. No known history of GI bleed. No recent melena that is known. She denies any abdominal pain. Prior similar symptoms: No Recent Illness/Hospitalization : [facility] Medical History Diarrhea Nausea Intellectual developmental disorder, severe Urinary [...] tablet 10 mg PO DAILY@0800 ALLERGIES 07/0 15 01/02/22 History mirtazapine 7.5 mg tablet 7.5 [...] tablet vomiting #21 tabs GENERAL PROTECTION LOTION 1 dose topical 4X/DAY PRN skin Unknown History protection acetaminophen 160 mg/5 mL oral 500 mg PO Q6H PRN fever or pain Unknown History elixir bisacodyl 10 mg/30 mL enema (Fleet 5 mg ID DAILY PRN constipation 0 07/31/23 Unknown History Bisacodyl) bismuth subsalicylate 525 mg/15 mL 1,050 mg PO .4X DAILY PRN diarrh ea 07/31/23 Unknown History oral suspension (Pepto-Bismol Max St) carboxymethylcellulose sodium 0.5 1 drp ophthalmic (eye) 4-6XD PRN 07/31/23 Unknown History % eye drops (Refresh Tears) dry eye(s) citalopram 10 mg tablet 10 mg PO DAILY 07/31/23 Unknown Hi story citalopram 20 mg tablet 20 mg PO DAILY 07/31/23 Unknown Hi story ipratropium 0.5 mg-albuterol 3 mg 3 ml inhalation Q4H PRN shortness 07/31/23 Unknown History (2.5 mg base)/3 mL nebulization of breath or wheezing soln terbinafine HCl 1 % topical cream 1 applic topical BID PRN redness 10/08/23 Unknown History irrit docusate sodium 100 mg capsule 100 mg PO Q OTHER DAY #15 caps Unknown Rx Allergy/AdvReac Type Severity Reaction Status Date / Time amoxicillin trihydrate (From AdvReac Unknown Verified 08/10/24 14:57 Augmentin) potassium clavulanate (From AdvReac Unknown Verified 08/10/24 14:57 Augmentin) Family History Father Pulmonary embolism Alcoholism Mother CVA (cerebral vascular accident) Surgical History Hx of cataract (more content not included)... Normal [facility] Eosinophil percentageOrdered By: Dominguez Bolton on 09-05-2024 Eosinophils/100 WBC (Bld) 2.5 % 0-5 [facility] Erythrocyte distribution wid th ratioOrdered By: Dominguez Bolton on 09-05-2024 Erythrocyte distribution width (RBC) [Ratio] 13.5 % 11.6-14.6 [facility] Erythrocyte distribution wid th standard deviationOrdered By: Dominguez Bolton on 09-05-2024 Erythrocyte distribution width (RBC) [Ratio] 47.7 fl High 35.1-43.9 [facility] Glomerular filtration rate ( GFR) estimation/1.73 sq m using serum, plasma, or whole bOrdered By: Dominguez Bolton on 09-05-2024 GFR/1.73 sq M.predicted among non-blacks MDRD (S/P/Bld) [Vol rate/Area] 107 mL/min/{1.73_m2} >60 [facility] Comment on above: mL/min/1.73m2 CKD-EP I Creatinine Equation (2020) H AND P Exam - [facility] 09-05-2024 H&P Exam - Hospitalist [facility] Medical Records Department [address] [place] [address] H P Exam - Hospitalist 09/05/24 1303 MR#: [id number] Acct: [id number] Name: TONYA FLETCHER Rep #: [id number] : 1960 64 From: Jeni Ann DO PCP: Dr. Michelle Marroquin MD Status:ADM IN Location[place] [facility] [place] [id number] HPI - General General Date of Admission: 09/05/24 Date of Service: 09/05/24 Chief Complaint: Hematemesis HPI Narrative TONYA FLETCHER, is a 64 F who has a history of MRDD and is nonverbal at baseline and presented to the emergency department at [facility] on 09/05/2024 with caregivers. Evidently, about a week ago they thought she might of had a dark emesis. They saw her primary care physician but she did not have labs done at that time. Today she had another episode that looked black so they brought her to the emergency department. She is anticoagulated baseline for home with Bernadette for history of pulmonary embolus. History is limited as patient cannot participate in giving any review of systems. Vital signs on presentation showed temperature of 96.0, heart rate 84, respiratory 16, blood pressure was 119/71 and pulse ox 90% room air. CBC showed a leukocytosis white count of 12.1 and a hemoglobin of 13.9 with a normal platelet count. Coags were normal. Chemistry panel was unremarkable other than mild hyperglycemia with a glucose of 105 that is nonfasting. Liver functions are normal. The initial plan was to recheck her hemoglobin at noon which we did. If there was a drop we are going to admit her if she was stable regarding discharge sure. Unfortunately her hemoglobin dropped about a gram and a half without being given any IV fluids so there was no concern for hemodilution with IV fluids. Given his drop in her chronic ongoing use of Eliquis for PE we elected to admit her. She was given 1 dose of Protonix in the emergency department. ON LICENSE OF [facility] Medical History Diarrhea Nausea Intellectual developmental disorder, severe Urinary [...] tablet 10 mg PO DAILY@0800 ALLERGIES 07/0 06/2201/02/22 History mirtazapine 7.5 mg tablet 7.5 [...] tablet vomiting #21 tabs GENERAL PROTECTION LOTION 1 dose topical 4X/DAY PRN skin Unknown History protection acetaminophen 160 mg/5 mL oral 500 mg PO Q6H PRN fever or pain Unknown History elixir bisacodyl 10 mg/30 mL enema (Fleet 5 mg ID DAILY PRN constipation 0 07/31/23 Unknown History Bisacodyl) bismuth subsalicylate 525 mg/15 mL 1,050 mg PO .4X DAILY PRN diarrh ea 07/31/23 Unknown History oral suspension (Pepto-Bismol Max St) carboxymethylcellulose sodium 0.5 1 drp ophthalmic (eye) 4-6XD PRN 07/31/23 Unknown History % eye drops (Refresh Tears) dry eye(s) citalopram 10 mg tablet 10 mg PO DAILY 07/31/23 Unknown Hi story citalopram 20 mg tablet 20 mg PO DAILY 07/31/23 Unknown Hi story ipratropium 0.5 mg-albuterol 3 mg 3 ml inhalation Q4H PRN shortness 07/31/23 Unknown History (2.5 mg base)/3 mL nebulization of breath or wheezing soln terbinafine HCl 1 % topical cream 1 applic topical BID PRN redness 10/08/23 Unknown History irrit docusate sodium 100 mg capsule 100 mg PO Q OTHER DAY #15 caps Unknown (more content not included)... Normal [facility] HH, Hemoglobin AND Hematocri ton 09-05-2024 Hematocrit (Bld) [Volume fraction] 39.8 % Normal 37-47 [facility] Comment on above: Performed By: #### L 501.9520, L100.0100, L501.2300, L500.4050, L501.5200 #### [facility] [place], [address] Hemoglobin (Bld) [Mass/Vol] 13.4 g/dL Normal 12.0-15.0 [facility] Comment on above: Performed By: #### L 501.9520, L100.0100, L501.2300, L500.4050, L501.5200 #### [facility] [address] [place], [address] Hematocrit (Bld) [Volume fraction] 38.9 % Normal [address] [place] [address] Comment on above: Performed By: #### L 501.9520, L100.0100, L501.2300, L500.4050, L501.5200 #### [facility] [address] [place], [address] Hemoglobin (Bld) [Mass/Vol] 13.1 g/dL Normal 12.0-15.0 [facility] Comment on above: Performed By: #### L 501.9520, L100.0100, L501.2300, L500.4050, L501.5200 #### [facility] [address] [place], [address] Hematocrit (Bld) [Volume fraction] 36.8 % Low [address] [place] [address] Comment on above: Performed By: #### L 501.9520, L100.0100, L501.2300, L500.4050, L501.5200 #### [facility] [address] [place], [address] Hemoglobin (Bld) [Mass/Vol] 12.6 g/dL Normal 12.0-15.0 [facility] Comment on above: Performed By: #### L 501.9520, L100.0100, L501.2300, L500.4050, L501.5200 #### [facility] [address] [place], [address] Hematocrit Auto (Bld) [Volum e fraction]Ordered By: Dominguez Bolton on 09-05-2024 Hematocrit (Bld) [Volume fraction] 36.8 % Low [address] [place] [address] Hemoglobin measurementOrdere d By: Dominguez Bolton on 09-05-2024 Hemoglobin (Bld) [Mass/Vol] 12.6 g/dL 12.0-15.0 [facility] Immature granulocytes/100 WB C Auto (Bld)Ordered By: Dominguez Bolton on 09-05-2024 Immature granulocytes/100 WBC (Bld) 0.200 % 0.0-0.9 [facility] Comment on above: IG% - Immature Granu locytes (promyelocytes, myelocytes and metamyelocytes) > 1% indicates that a LEFT SHIFT is Present. International normalized rat io (INR) calculationOrdered By: Dominguez Bolton on 09-05-2024 INR Coag (Bld) [Relative time] 1.0 {INR} [facility] - Chemistry and C hemistry - challengeOrdered By: Dominguez Bolton on 09-05-2024 AST [Catalytic activity/Vol] 15 U/L <32 [facility] Comment on above: Hemolysis present, R esults could be affected. MCV (mean corpuscular volume ) determinationOrdered By: Dominguez Bolton on 09-05-2024 MCV (RBC) [Entitic vol] 94.9 fL 81-99 [facility] Mean corpuscular hemoglobin (MCH) determinationOrdered By: Dominguez Bolton on 09-05-2024 MCH (RBC) [Entitic mass] 32.0 pg 27.0-32.0 [facility] Mean corpuscular hemoglobin concentration (MCHC) determinationOrdered By: Dominguez Bolton on 09-05-2024 MCHC (RBC) [Mass/Vol] 33.7 g/dL 32-36 [facility] Mean platelet volume determi nationOrdered By: Dominguez Bolton on 09-05-2024 Platelet mean volume (Bld) [Entitic vol] 11.2 fL 6.2-12.0 [facility] Monocyte percentageOrdered B y: Dominguez Bolton on 09-05-2024 Monocytes/100 WBC (Bld) 6.0 % 0-10 [facility] Neutrophil percentageOrdered By: Dominguez Bolton on 09-05-2024 Neutrophils/100 WBC (Bld) 62.1 % 47-70 [facility] Nucleated red blood cell per centageOrdered By: Dominguez Bolton on 09-05-2024 Nucleated RBC/100 WBC (Bld) [Ratio] 0 % 0-5 [facility] Partial Thromboplast Timeon 09-05-2024 aPTT Coag (Bld) [Time] 27.9 s Normal 24.1-36.2 [facility] Comment on above: Performed By: #### L 501.9520, L100.0100, L501.2300, L500.4050, L501.5200 #### [facility] [address] [place], [address] Platelet countOrdered By: Deyvi Bolton on 09-05-2024 Platelets (Bld) [#/Vol] 263 10*3/uL 150-450 [facility] Potassium measurement (mass/ volume)Ordered By: Dominguez Bolton on 09-05-2024 Potassium (Unsp spec) [Mass/Vol] 4.2 mmol/L 3.3-5.1 [facility] Comment on above: Hemolysis present, R esults could be affected. Prothrombin Time w/INRon INR Coag (PPP) [Relative time] 1.0 {INR} Normal [facility] Comment on above: Performed By: #### L 501.9520, L100.0100, L501.2300, L500.4050, L501.5200 #### [facility] [address] [place], [address] PT Coag (PPP) [Time] 13.6 s Normal 11.7-14.9 [facility] Comment on above: Performed By: #### L 501.9520, L100.0100, L501.2300, L500.4050, L501.5200 #### [facility] [address] [place], [address] Prothrombin timeOrdered By: Dominguez Bolton on 09-05-2024 PT Coag (PPP) [Time] 13.6 s 11.7-14.9 [facility] RBC Auto (Bld) [#/Vol]Ordere d By: Dominguez Bolton on 09-05-2024 RBC (Bld) [#/Vol] 4.34 10*6/uL 4.2-5.4 [facility] Serum creatinine measurement (mass/volume)Ordered By: Dominguez Bolton on 09-05-2024 Creatinine [Mass/Vol] 0.47 mg/dL Low 0.70-1.20 [facility] Serum globulin measurementOr dered By: Dominguez Bolton on 09-05-2024 Globulin (S) [Mass/Vol] 3.1 g/dL 2.2-4.2 [facility] Serum glucose measurement (m ass/volume)Ordered By: Dominguez Bolton on 09-05-2024 Glucose [Mass/Vol] 105 mg/dL High 70-99 [facility] Serum or plasma alanine barrios otransferase (ALT) measurementOrdered By: Dominguez Bolton on 09-05-2024 ALT [Catalytic activity/Vol] 5 U/L <35 [facility] Serum or plasma albumin kamilah urement (mass/volume)Ordered By: Domingeuz Bolton on 09-05-2024 Albumin [Mass/Vol] 3.8 g/dL 3.4-4.8 [facility] Serum or plasma albumin/glob ulin mass ratioOrdered By: Dominguez Bolton on 09-05-2024 Albumin/Globulin [Mass ratio] 1.2 {ratio} 0.9-2.4 [facility] Serum or plasma alkaline sandrita sphatase measurementOrdered By: Dominguez Bolton on 09-05-2024 ALP [Catalytic activity/Vol] 86 U/L 35-104 [facility] Serum or plasma calcium kamilah urement (mass/volume)Ordered By: Dominguez Bolton on 09-05-2024 Calcium [Mass/Vol] 9.0 mg/dL 7.6-11.0 [facility] Serum or plasma urea nitroge n measurement (mass/volume)Ordered By: Dominguez Bolton on 09-05-2024 Urea nitrogen [Mass/Vol] 10 mg/dL 4-19 [facility] Sodium levelOrdered By: Dominguez Bolton on 09-05-2024 Sodium [Moles/Vol] 140 mmol/L 133-145 [facility] Total proteinOrdered By: Tad Bolton on 09-05-2024 Protein [Mass/Vol] 6.9 g/dL 5.9-8.4 [facility] Type AND Screenon 09-05-2024 Ab SCREEN GEL PENDING Normal [facility] Comment on above: Order Comment: LANDON Lamas PREVIOUS SPECIMEN REJECTED DUE TOQNS. 09/05/2438 [facility] [employer] Performed By: #### L 501.9520, L100.0100, L501.2300, L500.4050, L501.5200 #### [facility] [address] [place], [address] A1 CELL Not performed Normal [facility] Comment on above: Order Comment: HGI Result Comment: This specimen has been REJECTED due to Laboratory criteria: Quanity Not Sufficient. ED has been notified of need of recollection. 09/05/[facility] Performed By: #### L 300.3900, L300.4310, L500.4050, BTS, L100.0100 #### [facility] [address] [place], [place], [id number] Ab SCREEN GEL Not performed Normal [facility] Comment on above: Order Comment: HGI Result Comment: This specimen has been REJECTED due to Laboratory criteria: Quanity Not Sufficient. ED has been notified of need of recollection. 09/05/[address] [facility] Performed By: #### L 300.3900, L300.4310, L500.4050, BTS, L100.0100 #### [facility] [address] [place], [address] ABO and Rh group Nom (Bld) Test Not Performed Normal [facility] Comment on above: Order Comment: HGI Result Comment: This specimen has been REJECTED due to Laboratory criteria: Quanity Not Sufficient. ED has been notified of need of recollection. 09/05/24[facility] Performed By: #### L 300.3900, L300.4310, L500.4050, BTS, L100.0100 #### [facility] [address] [place], [address] ANTI A Not performed Normal [facility] Comment on above: Order Comment: HGI Result Comment: This specimen has been REJECTED due to Laboratory criteria: Quanity Not Sufficient. ED has been notified of need of recollection. 09/05/2437 [facility] Performed By: #### L 300.3900, L300.4310, L500.4050, BTS, L100.0100 #### [facility] [address] [place], [address] ANTI B Not performed Normal [facility] Comment on above: Order Comment: HGI Result Comment: This specimen has been REJECTED due to Laboratory criteria: Quanity Not Sufficient. ED has been notified of need of recollection. 09/05/2437 [facility] Performed By: #### L 300.3900, L300.4310, L500.4050, BTS, L100.0100 #### [facility] [address] [place], [address] ANTI D Not performed Normal [facility] Comment on above: Order Comment: HGI Result Comment: This specimen has been REJECTED due to Laboratory criteria: Quanity Not Sufficient. ED has been notified of need of recollection. 09/05/24 [facility] Performed By: #### L 300.3900, L300.4310, L500.4050, BTS, L100.0100 #### [facility] [address] [place], [address] B CELLS Not performed Normal [facility] Comment on above: Order Comment: HGI Result Comment: This specimen has been REJECTED due to Laboratory criteria: Quanity Not Sufficient. ED has been notified of need of recollection. 09/05/2437 [facility] Performed By: #### L 300.3900, L300.4310, L500.4050, BTS, L100.0100 #### [facility] [address] [place], [address] White blood cell (WBC) count Ordered By: Dominguez Bolton on 09-05-2024 WBC (Bld) [#/Vol] 12.1 10*3/uL High 4.4-11.0 [facility] CNOVon 08-26-2024 CNOV Office Visit (UCWSTR ) TONYA FLETCHER ([id number]) 1960 F Date Time Provider Department 08/26/24 6:15 PM HAJA COLEY [facility] During your visit today, we recorded the following information about you: Temperature Pulse Respiration Blood pressure 96.8 degrees 82/minute 21/minute 130/78 Haja Coley MD 08/26/2024 6:45 PM Signed [facility] Subjective Tonya Fletcher is [...] twice daily - COMPOUNDED PRESCRIPTION 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 Normal [facility] Urgent Care Visit Reporton 0 08-10-2024 Urgent Care Visit Report [facility] [address], [address] [place] [address] OFFICE VISIT Date of Service: 08/10/24 MR#: [id number] Acct: [id number] Name: TONYA FLETCHER Rep #: [id number] : 1960 Provider: XUAN Casey Age/Sex: 64/F [place] [facility] [place] Status: Signed Intake Vital Signs 04/21/24 13:58 [...] mg tablet 10 mg PO DAILY@0800 ALLERGIES 0706/2208/10/24 History mirtazapine 7.5 mg tablet 7.5 mg [...] 10 mg/30 mL enema (Fleet 5 mg ID DAILY PRN 07/31/2308/10 History Bisacodyl) bismuth subsalicylate [...] it was just a normal BM today. ON LICENSE OF [facility] Medical History (Updated 08/10/24 @ [...] THC LAST (more content not included)... Normal [facility] Calculated very low density lipoprotein (VLDL) cholesterol measurementOrdered By: Michelle Marroquin on 06-11-2024 Calculated very low density lipoprotein (VLDL) cholesterol measurement 15 mg/dL 5-40 [facility] VLDL Cholesterol 15 mg/dL -40 [facility] Internal Medicine Office Vis iton 06-11-2024 Internal Medicine Office Visit [facility] [place] [address] [place] [address] OFFICE VISIT Date of Service: 06/11/24 MR#: [id number] Acct: [id number] Name: TONYA FLETCHER Rep #: [id number] : 1960 Provider: Dr. Michelle brambila MD Age/Sex: 63/F [place] [facility] [place] Status: Signed Intake Vital Signs 10/08/23 15:03 [...] tablet 10 mg PO DAILY@0800 ALLERGIES 07/0 15 06/11/24 History mirtazapine 7.5 mg tablet 7.5 mg PO QHS@1999 DEPRESSION 05/0806/11/24 History azelastine 0.05 % eye drops 0.05 drp EACH EYE BID@08,199906/11/24 History DRY EYES apixaban 5 mg tablet [...] 10 mg/30 mL enema (Fleet 5 mg ID DAILY PRN 07/31/2306/11 History Bisacodyl) bismuth subsalicylate [...] #21 caps 05/18/24 Rx Nurse's Note: pt's [employer] accompanied her to appt today. she reports no changes to medications, medical/surgical history or allergies. ON LICENSE OF [facility] Medical History (Updated 06/11/24 @ [...] Chief Complaint: 6 M FU Details: TONYA SAFFELL, is a 63 F who (more content not included)... Normal [facility] LDL calc ser/plasOrdered By: Michelle Marroquin on 06-11-2024 Cholesterol in LDL [Mass/Vol] 123 mg/dL [facility] Comment on above: Igbguqxtln=429-858 m g/dL & Higher Bcyt=274 mg/dL or greater LDL Cholesterol, Calculated 123 mg/dL [facility] Comment on above: Bqbuwayotd=252-084 m g/dL & Higher Arcg=382 mg/dL or greater Lipid Profileon 06-11-2024 CHOL:HDL 3.11 Normal [facility] Comment on above: Performed By: #### L 501.9520, L100.0100, L501.2300, L500.4050, L501.5200 #### [facility] [address] [place], [place], [id number] (186) Cholesterol [Mass/Vol] 204 mg/dL High <=200 [facility] Comment on above: Result Comment: Chol esterol level, Desirable <200 mg/dL Borderline high cholesterol 200-239 mg/dL High cholesterol >=240 mg/dL Recommendations of the NCEP Adult Treatment Panel for the following risk-cutoff thresholds for the [place] population. Performed By: #### L 501.9520, L100.0100, L501.2300, L500.4050, L501.5200 #### [facility] [address] [place], [address] Cholesterol in HDL [Mass/Vol] 66 mg/dL Normal [facility] Comment on above: Result Comment: [place]mila onal Cholesterol Education Program (NCEP) guidelines: <40 mg/dL: Low HDL-cholesterol (major risk factor for CHD) >= 60 mg/dL: High HDL-cholesterol (negative risk factor for CHD) HDL-cholesterol is affected by a number of factors, e.g. smoking, exercise, hormones, sex and age. Performed By: #### L 501.9520, L100.0100, L501.2300, L500.4050, L501.5200 #### [facility] [address] [place], [address] Cholesterol in LDL [Mass/Vol] 123 mg/dL Normal [facility] Comment on above: Result Comment: Bord rtpgxa=696-113 mg/dL Higher Wqnn=323 mg/dL or greater Performed By: #### L 501.9520, L100.0100, L501.2300, L500.4050, L501.5200 #### [facility] [address] [place], [address] Cholesterol in VLDL [Mass/Vol] 15 mg/dL Normal 5-40 [facility] Comment on above: Performed By: #### L 501.9520, L100.0100, L501.2300, L500.4050, L501.5200 #### [facility] [address] [place], [address] Triglyceride [Mass/Vol] 75 mg/dL Normal [facility] Comment on above: Result Comment: The drugs N-Acetylcysteine and Metamizole may falsely depress this assay. Normal range: <150 mg/dL Borderline High: 150-199 mg/dL High: 200-499 mg/dL Very High: >500 mg/dL Performed By: #### L 501.9520, L100.0100, L501.2300, L500.4050, L501.5200 #### [facility] [address] [place], [place], [address] Screening total cholesterol/ high density lipoprotein (HDL) cholesterol ratioOrdered By: Michelle Marroquin on 06-11-2024 Cholesterol.total/Tanvi sterol in HDL [Mass ratio] 3.11 {ratio} [facility] Serum or plasma cholesterol in HDL measurement (mass/volume)Ordered By: Michelle Marroquin on 06-11-2024 Cholesterol in HDL [Mass/Vol] 66 mg/dL >40 [facility] Comment on above: National Cholesterol Education Program (NCEP) guidelines:<40 mg/dL: Low HDL-cholesterol (major risk factor for CHD)>= 60 mg/dL: High HDL-cholesterol (negative risk factor for CHD)HDL-cholesterol is affected by a number of factors, e.g. smoking, exercise, hormones, sex and age. Serum or plasma cholesterol measurement (mass/volume)Ordered By: Michelle Marroquin on 06-11-2024 Cholesterol [Mass/Vol] 204 mg/dL High <201 [facility] Comment on above: Cholesterol level, D esirable <200 mg/dLBorderline high cholesterol 200-239 mg/dLHigh cholesterol >=240 mg/dLRecommendations of the NCEP Adult Treatment Panel for the following risk-cutoff thresholds for the [place] population. Triglycerides measurementOrd ered By: Michelle Marroquin on 06-11-2024 Triglyceride [Mass/Vol] 75 mg/dL <199 [facility] Comment on above: The drugs N-Acetylcy steine and Metamizole may falsely depress this assay. Normal range: <150 mg/dLBorderline High: 150-199 mg/dLHigh: 200-499 mg/dLVery High: >500 mg/dL Vitamin D, 25-hydroxyOrdered By: Michelle Marroquin on 06-11-2024 Vitamin D 25-Hydroxy 35.0 ng/mL 30-100 [facility] Comment on above: Vitamin D StatusDefi ciency: <20 ng/mL (50nmol/L)Insufficiency: 20-30 ng/mL (50-75 nmol/L)Sufficiency: 30-100 ng/mL (75-250 nmol/L)Toxicity: >100 ng/mL (>250 nmol/L) Vitamin D,25 Hydroxyon 06-11 Vitamin D 25-OH 35.0 ng/mL Normal 30-100 [facility] Comment on above: Result Comment: Ct min D Status Deficiency: <20 ng/mL (50nmol/L) Insufficiency: 20-30 ng/mL (50-75 nmol/L) Sufficiency: 30-100 ng/mL (75-250 nmol/L) Toxicity: >100 ng/mL (>250 nmol/L) Performed By: #### L 501.9520, L100.0100, L501.2300, L500.4050, L501.5200 #### [facility] [address] [place], [address] Urgent Care Visit Reporton 0 05-18-2024 Urgent Care Visit Report [facility] [address], [address] [place] [address] OFFICE VISIT Date of Service: 05/18/24 MR#: [id number] Acct: [id number] Name: TONYA FLETCHER Rep #: [id number] : 1960 Provider: XUAN Casey Age/Sex: 63/F [place] [facility] [place] Status: Signed Intake Vital Signs 04/21/24 13:58 [...] Augmentin) Adverse Reaction (Verified 04/21/24 13:52) Unknown ON LICENSE OF [facility] Medical History (Updated 04/21/24 @ [...] does express localized tenderness to palpation. No hngo-ymg-yfoiblw medications taken to assist. No other associated symptoms and no other alleviating/aggravating factors. ROS Const Constitutional: No other (As above) Exam Const General: cooperative, healthy appearing and no acute distress Orientation: alert and awake HENPR Head: normal to inspection Ears: hearing grossly [...] 21 caps 0RF 05/18/24 1711 Date Christ GOVEA Cosigner Signature: Date (if applicable) CC: Normal [facility] Absolute lymphocyte countOrd ered By: Michelle Marroquin on 04-21-2024 Lymphocytes Auto (Unsp spec) [#/Vol] 2.12 10*3/uL 0.83-4.51 [facility] Absolute neutrophil countOrd ered By: Michelle Marroquin on 04-21-2024 Neutrophils (Bld) [#/Vol] 2.9 10*3/uL 2.0-7.7 [facility] Albumin to globulin ratioOrd ered By: Albertograndviewsinai Marroquin on 04-21-2024 Albumin/Globulin [Mass ratio] 0.8 {ratio} Low 0.9-2.4 [facility] Automated lymphocyte count a s percentage of total leukocytesOrdered By: Michelle Daronselvin on 04-21-2024 Lymphocytes/100 WBC Auto (Unsp spec) 33.8 % 19-41 [facility] Basophil percentageOrdered B y: Michelle Marroquin on 04-21-2024 Basophils/100 WBC (Bld) 1.0 % 0-1 [facility] Bilirubin, totalOrdered By: Michelle Marroquin on 04-21-2024 Bilirubin [Mass/Vol] 0.30 mg/dL 0.20-1.00 [facility] Comment on above: For patients on eltr ombopag therapy, use of Dimension [place] TBIL is not recommended. Blood urea nitrogen (BUN)/cr eatinine ratioOrdered By: Leigharuddygrahamsinai Neririchielizbeth on 04-21-2024 Urea nitrogen/Creatinine [Mass ratio] 9.6 mg/mg Low 10-20 [facility] CBC W/Diff, Automatedon 04-10 Absolute Lymph 2.12 X10 3/uL Normal 0.83-4.51 [facility] Comment on above: Performed By: #### L 501.9520, L100.0100, L501.2300, L500.4050, L501.5200 #### [facility] [address] [place], [address] Absolute Neut 2.9 X10 3/uL Normal 2.0-7.7 [facility] Comment on above: Performed By: #### L 501.9520, L100.0100, L501.2300, L500.4050, L501.5200 #### [facility] [address] [place], [address] Basophils/100 WBC (Bld) 1.0 % Normal 0-1 [facility] Comment on above: Performed By: #### L 501.9520, L100.0100, L501.2300, L500.4050, L501.5200 #### [facility] [address] [place], [address] Eosinophils/100 WBC (Bld) 7.5 % High 0-5 [facility] Comment on above: Performed By: #### L 501.9520, L100.0100, L501.2300, L500.4050, L501.5200 #### [facility] [address] [place], [address] Erythrocyte distribution width (RBC) [Ratio] 14.7 % High 11.6-14.6 [facility] Comment on above: Performed By: #### L 501.9520, L100.0100, L501.2300, L500.4050, L501.5200 #### [facility] [address] [place], [address] Hematocrit (Bld) [Volume fraction] 42.2 % Normal 37-47 [facility] Comment on above: Performed By: #### L 501.9520, L100.0100, L501.2300, L500.4050, L501.5200 #### [facility] [address] [place], [address] Hemoglobin (Bld) [Mass/Vol] 13.6 g/dL Normal 12.0-15.0 [facility] Comment on above: Performed By: #### L 501.9520, L100.0100, L501.2300, L500.4050, L501.5200 #### [facility] [address] [place], [address] IG% 0.300 Normal 0.0-0.9 [facility] Comment on above: Result Comment: IG% - Immature Granulocytes (promyelocytes, myelocytes and metamyelocytes) > 1% indicates that a LEFT SHIFT is Present. Performed By: #### L 501.9520, L100.0100, L501.2300, L500.4050, L501.5200 #### [facility] [address] [place], [address] Lymphocytes/100 WBC (Bld) 33.8 % Normal 19-41 [facility] Comment on above: Performed By: #### L 501.9520, L100.0100, L501.2300, L500.4050, L501.5200 #### [facility] [address] [place], [address] MCH (RBC) [Entitic mass] 31.6 pg Normal 27.0-32.0 [facility] Comment on above: Performed By: #### L 501.9520, L100.0100, L501.2300, L500.4050, L501.5200 #### [facility] [address] [place], [address] MCHC (RBC) [Mass/Vol] 32.2 g/dL Normal 32-36 [facility] Comment on above: Performed By: #### L 501.9520, L100.0100, L501.2300, L500.4050, L501.5200 #### [facility] [address] [place], [address] MCV (RBC) [Entitic vol] 98.1 fL Normal 81-99 [facility] Comment on above: Performed By: #### L 501.9520, L100.0100, L501.2300, L500.4050, L501.5200 #### [facility] [address] [place], [address] Monocytes/100 WBC (Bld) 11.6 % High 0-10 [facility] Comment on above: Performed By: #### L 501.9520, L100.0100, L501.2300, L500.4050, L501.5200 #### [facility] [address] [place], [address] Neutrophils/100 WBC (Bld) 45.8 % Low 47-70 [facility] Comment on above: Performed By: #### L 501.9520, L100.0100, L501.2300, L500.4050, L501.5200 #### [facility] [address] [place], [address] Nucleated RBC (Bld) [#/Vol] 0 10*3/uL Normal 0-5 [facility] Comment on above: Performed By: #### L 501.9520, L100.0100, L501.2300, L500.4050, L501.5200 #### [facility] [address] [place], [address] Platelet mean volume (Bld) [Entitic vol] 11.8 fL Normal 6.2-12.0 [facility] Comment on above: Performed By: #### L 501.9520, L100.0100, L501.2300, L500.4050, L501.5200 #### [facility] [address] [place], [address] Platelets (Bld) [#/Vol] 280 10*3/uL Normal 150-450 [facility] Comment on above: Performed By: #### L 501.9520, L100.0100, L501.2300, L500.4050, L501.5200 #### [facility] [address] [place], [address] RBC (Bld) [#/Vol] 4.30 10*6/uL Normal 4.2-5.4 [facility] Comment on above: Performed By: #### L 501.9520, L100.0100, L501.2300, L500.4050, L501.5200 #### [facility] [address] [place], [address] RDW SD 53.1 fl High 35.1-43.9 [facility] Comment on above: Performed By: #### L 501.9520, L100.0100, L501.2300, L500.4050, L501.5200 #### [facility] [address] [place], [address] WBC (Bld) [#/Vol] 6.3 10*3/uL Normal 4.4-11.0 [facility] Comment on above: Performed By: #### L 501.9520, L100.0100, L501.2300, L500.4050, L501.5200 #### [facility] [address] [place], [address] Absolute Neut Normal 2.0-7.7 [facility] Comment on above: Result Comment: DUPL ICATE' Performed By: #### L 501.9520, L100.0100, L501.2300, L500.4050, L501.5200 #### [facility] [address] [place], [address] HCT Normal 37-47 [facility] Comment on above: Result Comment: DUPL ICATE' Performed By: #### L 501.9520, L100.0100, L501.2300, L500.4050, L501.5200 #### [facility] [address] [place], [address] HGB Normal 12.0-15.0 [facility] Comment on above: Result Comment: DUPL ICATE' Performed By: #### L 501.9520, L100.0100, L501.2300, L500.4050, L501.5200 #### [facility] [address] [place], [address] MCH Normal 27.0-32.0 [facility] Comment on above: Result Comment: DUPL ICATE' Performed By: #### L 501.9520, L100.0100, L501.2300, L500.4050, L501.5200 #### [facility] [address] [place], [address] MCHC Normal 32-36 [facility] Comment on above: Result Comment: DUPL ICATE' Performed By: #### L 501.9520, L100.0100, L501.2300, L500.4050, L501.5200 #### [facility] [address] [place], [address] MCV Normal 81-99 [facility] Comment on above: Result Comment: DUPL ICATE' Performed By: #### L 501.9520, L100.0100, L501.2300, L500.4050, L501.5200 #### [facility] [address] [place], [address] NEUT% Normal 47-70 [facility] Comment on above: Result Comment: DUPL ICATE' Performed By: #### L 501.9520, L100.0100, L501.2300, L500.4050, L501.5200 #### [facility] [address] [place], [address] PLT Normal 150-450 [facility] Comment on above: Result Comment: DUPL ICATE' Performed By: #### L 501.9520, L100.0100, L501.2300, L500.4050, L501.5200 #### [facility] [address] [place], [address] RBC Normal 4.2-5.4 [facility] Comment on above: Result Comment: DUPL ICATE' Performed By: #### L 501.9520, L100.0100, L501.2300, L500.4050, L501.5200 #### [facility] [address] [place], [address] RDW CV Normal 11.6-14.6 [facility] Comment on above: Result Comment: DUPL ICATE' Performed By: #### L 501.9520, L100.0100, L501.2300, L500.4050, L501.5200 #### [facility] [address] [place], [address] RDW SD Normal 35.1-43.9 [facility] Comment on above: Result Comment: DUPL ICATE' Performed By: #### L 501.9520, L100.0100, L501.2300, L500.4050, L501.5200 #### [facility] [address] [place], [address] WBC Normal 4.4-11.0 [facility] Comment on above: Result Comment: DUPL ICATE' Performed By: #### L 501.9520, L100.0100, L501.2300, L500.4050, L501.5200 #### [facility] [address] [place], [address] Carbon dioxide measurementOr dered By: Michelle Marroquin on 04-21-2024 CO2 [Moles/Vol] 30.0 mmol/L 21.0-32.0 [facility] Chloride measurementOrdered By: Michelle Marroquin on 04-21-2024 Chloride [Moles/Vol] 103 mmol/L 98-107 [facility] Comprehensive Metabolic Prof ilon 04-21-2024 Albumin [Mass/Vol] 3.5 g/dL Normal 3.2-5.0 [facility] Comment on above: Performed By: #### L 501.9520, L100.0100, L501.2300, L500.4050, L501.5200 #### [facility] [address] [place], [address] Albumin/Globulin [Mass ratio] 0.8 {ratio} Low 0.9-2.4 [facility] Comment on above: Performed By: #### L 501.9520, L100.0100, L501.2300, L500.4050, L501.5200 #### [facility] [address] [place], [address] ALK P 101 U/L Normal 45-117 [facility] Comment on above: Performed By: #### L 501.9520, L100.0100, L501.2300, L500.4050, L501.5200 #### [facility] [address] [place], [address] ALT [Catalytic activity/Vol] 15 U/L Normal 13-56 [facility] Comment on above: Performed By: #### L 501.9520, L100.0100, L501.2300, L500.4050, L501.5200 #### [facility] [address] [place], [address] AST [Catalytic activity/Vol] 15 U/L Normal 15-37 [facility] Comment on above: Performed By: #### L 501.9520, L100.0100, L501.2300, L500.4050, L501.5200 #### [facility] [address] [place], [address] Bilirubin [Mass/Vol] 0.30 mg/dL Normal 0.20-1.00 [facility] Comment on above: Result Comment: For patients on eltrombopag therapy, use of Dimension [place] TBIL is not recommended. Performed By: #### L 501.9520, L100.0100, L501.2300, L500.4050, L501.5200 #### [facility] [address] [place], [address] BUN/CRE 9.6 RATIO Low 10-20 [facility] Comment on above: Performed By: #### L 501.9520, L100.0100, L501.2300, L500.4050, L501.5200 #### [facility] [address] [place], [address] CA,Total 9.3 mg/dL Normal 8.5-10.1 [facility] Comment on above: Performed By: #### L 501.9520, L100.0100, L501.2300, L500.4050,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 [facility] Basophil percentageOrdered B y: Haresh Curtis on 06-13-2023 Basophils/100 WBC (Bld) 0.3 % 0-1 [facility] Bilirubin [Mass/Vol] 0.60 mg/dL 0.20-1.00 [facility] Comment on above: For patients on eltr ombopag therapy, use of Dimension [place] TBIL is not recommended. Chloride [Moles/Vol] 105 mmol/L 98-107 [facility] Eosinophils/100 WBC (Bld) 2.5 % 0-5 [facility] Glucose [Mass/Vol] 109 mg/dL 74-106 [facility] Comment on above: Fasting Glucose resu lt from 100 to 125 mg/dL suggests IMPAIRED HOMEOSTASIS per A.D.A. criteria. Hemoglobin (Bld) [Mass/Vol] 14.3 g/dL 12.0-15.0 [facility] Monocytes/100 WBC (Bld) 4.6 % 0-10 [facility] Neutrophils (Bld) [#/Vol] 7.2 10*3/uL 2.0-7.7 [facility] Neutrophils/100 WBC (Bld) 80.0 % 47-70 [facility] Potassium [Moles/Vol] 3.9 mmol/L 3.5-5.1 [facility] Protein [Mass/Vol] 8.0 g/dL 6.4-8.2 [facility] Sodium [Moles/Vol] 142 mmol/L 136-145 [facility] WBC (Bld) [#/Vol] 9.0 10*3/uL 4.4-11.0 [facility] Determination of erythrocyte mean corpuscular volume (MCV)Ordered By: aHresh Curtis on 06-13-2023 MCV (RBC) [Entitic vol] 94.4 fL 81-99 [facility] Direct bilirubinOrdered By: Haresh Curtis on 06-13-2023 Bilirubin.direct [Mass/Vol] 0.13 mg/dL 0.00-0.30 [facility] Erythrocyte distribution wid th ratioOrdered By: Haresh Curtis on 06-13-2023 Erythrocyte distribution width (RBC) [Ratio] 13.5 % 11.6-14.6 [facility] Erythrocyte distribution wid th standard deviationOrdered By: Haresh Curtis on 06-13-2023 Erythrocyte distribution width (RBC) [Entitic vol] 47.4 fL 35.1-43.9 [facility] Hematocrit Auto (Bld) [Volum e fraction]Ordered By: Haresh Curtis on 06-13-2023 Hematocrit (Bld) [Volume fraction] 43.6 % 37-47 [facility] Immature granulocytes/100 WB C Auto (Bld)Ordered By: Haresh Curtis on 06-13-2023 Immature granulocytes/100 WBC (Bld) 0.200 % 0.0-0.9 [facility] Comment on above: IG% - Immature Granu locytes (promyelocytes, myelocytes and metamyelocytes) > 1% indicates that a LEFT SHIFT is Present. Laboratory - Chemistry and C hemistry - challengeOrdered By: Haresh Curtis on 06-13-2023 ALP [Catalytic activity/Vol] 104 U/L 45-117 [facility] ALT [Catalytic activity/Vol] 14 U/L 13-56 [facility] CO2 [Moles/Vol] 32.0 mmol/L 21.0-32.0 [facility] Globulin (S) [Mass/Vol] 4.1 g/dL 2.2-4.2 [facility] Lipase [Catalytic activity/Vol] 27 U/L 13-75 [facility] Comment on above: Please note:LIPASE r evised reference range effective 22. New Lipase methodology. Expected to produce lower values than the previous assay method. NEW Reference Range: 13 - 75 U/L Urea nitrogen/Creatinine [Mass ratio] 20.5 mg/mg 10-20 [facility] Laboratory - Hematology and Cell countsOrdered By: Haresh Curtis on 06-13-2023 MCH (RBC) [Entitic mass] 31.0 pg 27.0-32.0 [facility] MCHC (RBC) [Mass/Vol] 32.8 g/dL 32-36 [facility] Nucleated RBC/100 WBC (Bld) [Ratio] 0 % 0-5 [facility] Platelet mean volume (Bld) [Entitic vol] 10.5 fL 6.2-12.0 [facility] Platelets (Bld) [#/Vol] 321 10*3/uL 150-450 [facility] No Panel InformationOrdered By: Haresh Curtis on 06-13-2023 Estimated Creatinine Clearance Calc 85.58 ml/min [facility] Estimated GFR (MDRD) Amer 134 mL/min >60 [facility] Comment on above: GFR Calc Estimated GFR (MDRD) Non-Af Amer 111 mL/min >60 [facility] Comment on above: Non- GFR Calc RBC Auto (Bld) [#/Vol]Ordere d By: Haresh Curtis on 06-13-2023 RBC (Bld) [#/Vol] 4.62 10*6/uL 4.2-5.4 ost er [facility] Serum or plasma calcium kamilah urement (mass/volume)Ordered By: Haresh Curtis on 06-13-2023 Calcium [Mass/Vol] 9.3 mg/dL 8.5-10.1 oste r [facility] Serum or plasma creatinine m easurement (mass/volume)Ordered By: Haresh Curtis on 06-13-2023 Creatinine [Mass/Vol] 0.59 mg/dL 0.55-1.02 [facility] Comment on above: The validity of the calculated GFR & GFRAA in patients over 70 years has not been determined. Clinical correlation is essential. Serum or plasma urea nitroge n measurement (mass/volume)Ordered By: Haresh Curtis on 06-13-2023 Urea nitrogen [Mass/Vol] 12 mg/dL 7-18 [facility] Thin prep Papanicolaou smear with manual screeningOrdered By: Haresh Curtis on 06-13-2023 Thin prep Papanicolaou smear with manual screening 3.9 g/dL 3.2-5.0 [facility] Thin prep Papanicolaou smear with manual screening 11 U/L 15-37 [facility] Thin prep Papanicolaou smear with manual screening 5 5-15 [facility] Laboratory - Microbiology an d Antimicrobial susceptibilityOrdered By: Rocky Barlow on 02-05-2023 SARS-CoV-2 (COVID-19) RNA WILLIAM+probe Ql (Unsp spec) [facility] No Panel InformationOrdered By: Rocky Barlow on 02-05-2023 Influenza Types A,B Direct FA (DENY) [facility] RSV Ag EIAOrdered By: Rocky sloan on 02-05-2023 RSV Ag Immune stain Ql (Tiss) [facility] - Microbiology an d Antimicrobial susceptibilityOrdered By: Rocky Barlow on 12-12-2022 SARS-CoV-2 (COVID-19) RNA WILLIAM+probe Ql (Unsp spec) [facility] SARS-CoV-2 (COVID-19) RNA WILLIAM+probe Ql (Unsp spec) [facility] No Panel InformationOrdered By: Rocky Barlow on 12-12-2022 Influenza Types A,B Direct FA (DENY) [facility] Influenza Types A,B Direct FA (DENY) [facility] RSV Ag EIAOrdered By: Rocky sloan on 12-12-2022 RSV Ag Immune stain Ql (Tiss) [facility] RSV Ag Immune stain Ql (Tiss) [facility] Absolute lymphocyte countOrd ered By: Rocky Barlow on 12-11-2022 Lymphocytes Auto (Unsp spec) [#/Vol] 2.85 10*3/uL 0.83-4.51 [facility] Basophil percentageOrdered B y: Rocky Barlow on 12-11-2022 Basophils/100 WBC (Bld) 0.6 % 0-1 [facility] Chloride [Moles/Vol] 107 mmol/L 98-107 [facility] Eosinophils/100 WBC (Bld) 4.0 % 0-5 [facility] Glucose [Mass/Vol] 106 mg/dL 74-106 [facility] Comment on above: Fasting Glucose resu lt from 100 to 125 mg/dL suggests IMPAIRED HOMEOSTASIS per A.D.A. criteria. Neutrophils (Bld) [#/Vol] 5.6 10*3/uL 2.0-7.7 [facility] Neutrophils/100 WBC (Bld) 58.3 % 47-70 [facility] Potassium [Moles/Vol] 4.0 mmol/L 3.5-5.1 [facility] Sodium [Moles/Vol] 141 mmol/L 136-145 [facility] WBC (Bld) [#/Vol] 9.5 10*3/uL 4.4-11.0 [facility] Blood erythrocytes count (nu mber/volume)Ordered By: Rocky Barlow on 12-11-2022 RBC (Bld) [#/Vol] 4.40 10*6/uL 4.2-5.4 [facility] Blood hemoglobin measurement (mass/volume)Ordered By: Rocky Barlow on 12-11-2022 Hemoglobin (Bld) [Mass/Vol] 13.8 g/dL 12.0-15.0 [facility] Blood lymphocytes/100 leukoc ytesOrdered By: Rocky Barlow on 12-11-2022 Lymphocytes/100 WBC (Bld) 29.9 % 19-41 [facility] Blood monocytes/100 leukocyt esOrdered By: Rocky Barlow on 12-11-2022 Monocytes/100 WBC (Bld) 7.0 % 0-10 [facility] Blood platelet mean volumeOr dered By: Rocky Barlow on 12-11-2022 Platelet mean volume (Bld) [Entitic vol] 11.7 fL 6.2-12.0 [facility] Determination of erythrocyte mean corpuscular volume (MCV)Ordered By: Rocky Barlow on 12-11-2022 MCV (RBC) [Entitic vol] 95.7 fL 81-99 [facility] Hematocrit Auto (Bld) [Volum e fraction]Ordered By: Rocky Barlow on 12-11-2022 Hematocrit (Bld) [Volume fraction] 42.1 % 37-47 [facility] - Chemistry and C hemistry - challengeOrdered By: Rocky Barlow on 12-11-2022 CO2 [Moles/Vol] 29.0 mmol/L 21.0-32.0 [facility] Urea nitrogen/Creatinine [Mass ratio] 12.7 mg/mg 10-20 [facility] - Hematology and Cell countsOrdered By: Rocky Barlow on 12-11-2022 Erythrocyte distribution width (RBC) [Entitic vol] 47.8 fL 35.1-43.9 [facility] Erythrocyte distribution width (RBC) [Ratio] 13.5 % 11.6-14.6 [facility] Immature granulocytes/100 WBC (Bld) 0.200 % 0.0-0.9 [facility] Comment on above: IG% - Immature Granu locytes (promyelocytes, myelocytes and metamyelocytes) > 1% indicates that a LEFT SHIFT is Present. MCH (RBC) [Entitic mass] 31.4 pg 27.0-32.0 [facility] Nucleated RBC/100 WBC (Bld) [Ratio] 0 % 0-5 [facility] MCHC Auto (RBC) [Mass/Vol]Or dered By: Rocky Barlow on 12-11-2022 MCHC (RBC) [Mass/Vol] 32.8 g/dL 32-36 [facility] No Panel InformationOrdered By: Rocky Barlow on 12-11-2022 Estimated GFR (MDRD) Amer 173 mL/min >60 [facility] Comment on above: GFR Calc Estimated GFR (MDRD) Non-Af Amer 143 mL/min >60 [facility] Comment on above: Non- GFR Calc Platelets bldOrdered By: Rocky Barlow on 12-11-2022 Platelets (Bld) [#/Vol] 213 10*3/uL 150-450 [facility] Serum or plasma calcium kamilah urement (mass/volume)Ordered By: Rocky Barlow on 12-11-2022 Calcium [Mass/Vol] 9.2 mg/dL 8.5-10.1 [facility] Serum or plasma creatinine m easurement (mass/volume)Ordered By: Rocky Barlow on 12-11-2022 Creatinine [Mass/Vol] 0.47 mg/dL 0.55-1.02 [facility] Comment on above: The validity of the calculated GFR & GFRAA in patients over 70 years has not been determined. Clinical correlation is essential. Serum or plasma urea nitroge n measurement (mass/volume)Ordered By: Rocky Barlow on 12-11-2022 Urea nitrogen [Mass/Vol] 6 mg/dL 7-18 [facility] Thin prep Papanicolaou smear with manual screeningOrdered By: [facility]-11-2022 Thin prep Papanicolaou smear with manual screening 5 5-15 [facility] Absolute lymphocyte countOrd ered By: Rocky Barlow on 12-03-2022 Lymphocytes Auto (Unsp spec) [#/Vol] 2.53 10*3/uL 0.83-4.51 [facility] Basophil percentageOrdered B y: Rocky Barlow on 12-03-2022 Basophils/100 WBC (Bld) 1.4 % 0-1 [facility] Bilirubin [Mass/Vol] 0.30 mg/dL 0.20-1.00 [facility] Comment on above: For patients on eltr ombopag therapy, use of Dimension [place] TBIL is not recommended. Chloride [Moles/Vol] 108 mmol/L 98-107 [facility] Cholesterol [Mass/Vol] 209 mg/dL <200 [facility] Comment on above: <200 mg/dL Desirable 200-240 mg/dL Borderline >240 mg/dL High Risk Eosinophils/100 WBC (Bld) 6.0 % 0-5 [facility] Glucose [Mass/Vol] 99 mg/dL 74-106 [facility] Neutrophils (Bld) [#/Vol] 2.8 10*3/uL 2.0-7.7 [facility] Neutrophils/100 WBC (Bld) 44.4 % 47-70 [facility] Potassium [Moles/Vol] 3.7 mmol/L 3.5-5.1 [facility] Protein [Mass/Vol] 7.3 g/dL 6.4-8.2 [facility] Sodium [Moles/Vol] 142 mmol/L 136-145 [facility] Triglyceride [Mass/Vol] 146 mg/dL <199 [facility] Comment on above: The drugs N-Acetylcy steine and Metamizole may falsely depress this assay.Serum Triglycerides Reference Interval Normal <150 mg/dL Borderline high 150 - 199 mg/dL High 200 - 499 mg/dL Very High > or = 500 mg/dL WBC (Bld) [#/Vol] 6.3 10*3/uL 4.4-11.0 [facility] Blood erythrocytes count (nu mber/volume)Ordered By: Rocky Barlow on 12-03-2022 RBC (Bld) [#/Vol] 4.59 10*6/uL 4.2-5.4 [facility] Blood hemoglobin measurement (mass/volume)Ordered By: Rocky Barlow on 12-03-2022 Hemoglobin (Bld) [Mass/Vol] 14.1 g/dL 12.0-15.0 [facility] Blood lymphocytes/100 leukoc ytesOrdered By: Rocky Barlow on 12-03-2022 Lymphocytes/100 WBC (Bld) 40.1 % 19-41 [facility] Blood monocytes/100 leukocyt esOrdered By: Rocky Barlow on 12-03-2022 Monocytes/100 WBC (Bld) 7.9 % 0-10 [facility] Blood platelet mean volumeOr dered By: Rocky Barlow on 12-03-2022 Platelet mean volume (Bld) [Entitic vol] 11.8 fL 6.2-12.0 [facility] Determination of erythrocyte mean corpuscular volume (MCV)Ordered By: Rocky Barlow on 12-03-2022 MCV (RBC) [Entitic vol] 96.9 fL 81-99 [facility] Hematocrit Auto (Bld) [Volum e fraction]Ordered By: Rocky Barlow on 12-03-2022 Hematocrit (Bld) [Volume fraction] 44.5 % 37-47 [facility] Laboratory - Chemistry and C hemistry - challengeOrdered By: Rocky Barlow on 12-03-2022 ALP [Catalytic activity/Vol] 115 U/L 45-117 [facility] ALT [Catalytic activity/Vol] 18 U/L 13-56 [facility] CO2 [Moles/Vol] 29.0 mmol/L 21.0-32.0 [facility] Globulin (S) [Mass/Vol] 3.9 g/dL 2.2-4.2 [facility] Urea nitrogen/Creatinine [Mass ratio] 10.5 mg/mg 10-20 [facility] - Hematology and Cell countsOrdered By: Rocky Barlow on 12-03-2022 Erythrocyte distribution width (RBC) [Entitic vol] 47.1 fL 35.1-43.9 [facility] Erythrocyte distribution width (RBC) [Ratio] 13.2 % 11.6-14.6 [facility] Immature granulocytes/100 WBC (Bld) 0.200 % 0.0-0.9 [facility] Comment on above: IG% - Immature Granu locytes (promyelocytes, myelocytes and metamyelocytes) > 1% indicates that a LEFT SHIFT is Present. MCH (RBC) [Entitic mass] 30.7 pg 27.0-32.0 [facility] Nucleated RBC/100 WBC (Bld) [Ratio] 0 % 0-5 [facility] MCHC Auto (RBC) [Mass/Vol]Or dered By: Rocky Barlow on 12-03-2022 MCHC (RBC) [Mass/Vol] 31.7 g/dL 32-36 [facility] No Panel InformationOrdered By: Rocky Barlow on 12-03-2022 Estimated GFR (MDRD) Amer 138 mL/min >60 [facility] Comment on above: GFR Calc Estimated GFR (MDRD) Non-Af Amer 114 mL/min >60 [facility] Comment on above: Non- GFR Calc Thyroid Stimulating Hormone (TSH) 1.37 uIU/mL 0.358-3.74 [facility] Platelets bldOrdered By: Rocky Barlow on 12-03-2022 Platelets (Bld) [#/Vol] 238 10*3/uL 150-450 [facility] Serum or plasma albumin kamilah urement (mass/volume)Ordered By: Rocky Barlow on 12-03-2022 Albumin [Mass/Vol] 3.4 g/dL 3.2-5.0 [facility] Serum or plasma albumin/glob ulin mass ratioOrdered By: Rocky Barlow on 12-03-2022 Albumin/Globulin [Mass ratio] 0.9 {ratio} 0.9-2.4 [facility] Serum or plasma calcium kamilah urement (mass/volume)Ordered By: Rocky Barlow on 12-03-2022 Calcium [Mass/Vol] 8.7 mg/dL 8.5-10.1 [facility] Serum or plasma cholesterol in HDL measurement (mass/volume)Ordered By: Rocky Barlow on 12-03-2022 Cholesterol in HDL [Mass/Vol] 56 mg/dL >40 [facility] Comment on above: The drugs N-Acetylcy steine and Metamizole may falsely depress this assay. Reference Range HDL <40 mg/dL Low HDL Cholesterol HDL >or= 60 mg/dL High HDL Cholesterol Serum or plasma cholesterol in VLDL measurement (mass/volume)Ordered By: Rocky Barlow on 12-03-2022 Cholesterol in VLDL [Mass/Vol] 29 mg/dL 5-40 [facility] Serum or plasma creatinine m easurement (mass/volume)Ordered By: Rocky Barlow on 12-03-2022 Creatinine [Mass/Vol] 0.57 mg/dL 0.55-1.02 [facility] Comment on above: The validity of the calculated GFR & GFRAA in patients over 70 years has not been determined. Clinical correlation is essential. Serum or plasma low density lipoprotein (LDL) cholesterol measurement (mass/volume)Ordered By: Rocky Barlow on 12-03-2022 Cholesterol in LDL [Mass/Vol] 124 mg/dL 0-130 [facility] Serum or plasma urea nitroge n measurement (mass/volume)Ordered By: Rocky Barlow on 12-03-2022 Urea nitrogen [Mass/Vol] 6 mg/dL 7-18 [facility] Thin prep Papanicolaou smear with manual screeningOrdered By: Rocky Barlow on 12-03-2022 Thin prep Papanicolaou smear with manual screening 11 U/L 15-37 [facility] Thin prep Papanicolaou smear with manual screening 5 5-15 [facility] Absolute lymphocyte countOrd ered By: Raul Viveros on 08-15-2022 Lymphocytes Auto (Unsp spec) [#/Vol] 2.64 10*3/uL 0.83-4.51 [facility] Basophil percentageOrdered B y: Raul Viveros on 08-15-2022 Basophil percentage 0 SEEN /hpf 0-5 [facility] Basophils/100 WBC (Bld) 0.5 % 0-1 [facility] Chloride [Moles/Vol] 109 mmol/L 98-107 [facility] Eosinophils/100 WBC (Bld) 3.2 % 0-5 [facility] Glucose [Mass/Vol] 118 mg/dL 74-106 [facility] Comment on above: Fasting Glucose resu lt from 100 to 125 mg/dL suggests IMPAIRED HOMEOSTASIS per A.D.A. criteria. Lactate [Moles/Vol] 4.6 mmol/L 0.4-2.0 [facility] Comment on above: Critical Result(s) C alled at: 17:45:37 08/15/2022 by: Halie Espinosa. Results read back by same. Neutrophils (Bld) [#/Vol] 5.7 10*3/uL 2.0-7.7 [facility] Neutrophils/100 WBC (Bld) 59.8 % 47-70 [facility] Potassium [Moles/Vol] 3.2 mmol/L 3.5-5.1 [facility] Sodium [Moles/Vol] 142 mmol/L 136-145 [facility] WBC (Bld) [#/Vol] 9.6 10*3/uL 4.4-11.0 [facility] Bilirubin Test strip Ql (U)O rdered By: Raul Viveros on 08-15-2022 Bilirubin Ql (U) Negative Negative [facility] Blood erythrocytes count (nu mber/volume)Ordered By: Raul Viveros on 08-15-2022 RBC (Bld) [#/Vol] 4.49 10*6/uL 4.2-5.4 [facility] Blood hemoglobin measurement (mass/volume)Ordered By: Raul Viveros on 08-15-2022 Hemoglobin (Bld) [Mass/Vol] 14.3 g/dL 12.0-15.0 [facility] Blood lymphocytes/100 leukoc ytesOrdered By: Raul Viveros on 08-15-2022 Lymphocytes/100 WBC (Bld) 27.6 % 19-41 [facility] Blood monocytes/100 leukocyt esOrdered By: Raul Viveros on 08-15-2022 Monocytes/100 WBC (Bld) 8.7 % 0-10 [facility] Blood platelet mean volumeOr dered By: Raul Viveros on 08-15-2022 Platelet mean volume (Bld) [Entitic vol] 11.1 fL 6.2-12.0 [facility] Determination of erythrocyte mean corpuscular volume (MCV)Ordered By: Raul Viveros on 08-15-2022 MCV (RBC) [Entitic vol] 97.6 fL 81-99 [facility] Hematocrit Auto (Bld) [Volum e fraction]Ordered By: Raul Viveros on 08-15-2022 Hematocrit (Bld) [Volume fraction] 43.8 % 37-47 [facility] Influenza virus A and B and SARS-CoV-2 (COVID-19) Ag panel - Upper respiratory specimOrdered By: Raul Viveros on 08-15-2022 SARS-CoV-2 (COVID-19) RNA WILLIAM+probe Ql (Resp) [facility] Ketones Test strip Ql (U)Ord ered By: Raul Viveros on 08-15-2022 Ketones Ql (U) 5 mg/dl Negative [facility] - Chemistry and C hemistry - challengeOrdered By: Raul Viveros on 08-15-2022 CO2 [Moles/Vol] 28.0 mmol/L 21.0-32.0 [facility] Urea nitrogen/Creatinine [Mass ratio] 13.5 mg/mg 10-20 [facility] - Hematology and Cell countsOrdered By: Raul Viveros on 08-15-2022 Erythrocyte distribution width (RBC) [Entitic vol] 49.0 fL 35.1-43.9 [facility] Erythrocyte distribution width (RBC) [Ratio] 13.5 % 11.6-14.6 [facility] Immature granulocytes/100 WBC (Bld) 0.200 % 0.0-0.9 [facility] Comment on above: IG% - Immature Granu locytes (promyelocytes, myelocytes and metamyelocytes) > 1% indicates that a LEFT SHIFT is Present. MCH (RBC) [Entitic mass] 31.8 pg 27.0-32.0 [facility] Nucleated RBC/100 WBC (Bld) [Ratio] 0 % 0-5 [facility] - Microbiology an d Antimicrobial susceptibilityOrdered By: Raul Viveros on 08-15-2022 Bacteria identified Cx Nom (Bld) No growth in 5 days. [facility] MCHC Auto (RBC) [Mass/Vol]Or dered By: Raul Viveros on 08-15-2022 MCHC (RBC) [Mass/Vol] 32.6 g/dL 32-36 [facility] Mucus LM Ql (Urine sed)Order ed By: Raul Viveros on 08-15-2022 Mucus Ql (Urine sed) 0 SEEN /hpf [facility] Nitrite Test strip Ql (U)Ord ered By: Raul Viveros on 08-15-2022 Nitrite Ql (U) Negative Negative [facility] No Panel InformationOrdered By: Raul Viveros on 08-15-2022 Estimated Creatinine Clearance Calc 71.92 ml/min [facility] Estimated GFR (MDRD) Amer 132 mL/min >60 [facility] Comment on above: GFR Calc Estimated GFR (MDRD) Non-Af Amer 109 mL/min >60 [facility] Comment on above: Non- GFR Calc Platelets bldOrdered By: Danette Viveros on 08-15-2022 Platelets (Bld) [#/Vol] 284 10*3/uL 150-450 [facility] Protein Test strip Ql (U)Ord ered By: Raul Viveros on 08-15-2022 Protein Ql (U) Negative Negative [facility] Serum or plasma calcium kamilah urement (mass/volume)Ordered By: Raul Viveros on 08-15-2022 Calcium [Mass/Vol] 9.0 mg/dL 8.5-10.1 [facility] Serum or plasma creatinine m easurement (mass/volume)Ordered By: Raul Viveros on 08-15-2022 Creatinine [Mass/Vol] 0.59 mg/dL 0.55-1.02 [facility] Comment on above: The validity of the calculated GFR & GFRAA in patients over 70 years has not been determined. Clinical correlation is essential. Serum or plasma urea nitroge n measurement (mass/volume)Ordered By: Raul Viveros on 08-15-2022 Urea nitrogen [Mass/Vol] 8 mg/dL 7-18 [facility] Squamous epithelial cells de tection in urine sediment by light microscopyOrdered By: Remus Viveros on 08-15-2022 Epithelial cells.squamous LM Ql (Urine sed) 0 SEEN /hpf 5-10 [facility] Thin prep Papanicolaou smear with manual screeningOrdered By: Remus Viveros on 08-15-2022 Thin prep Papanicolaou smear with manual screening 5 5-15 [facility] Urine blood detectionOrdered By: Remus Viveros on 08-15-2022 RBC Ql (U) Negative Negative [facility] RBC Ql (U) 0 SEEN /hpf 0-5 [facility] Urine clarityOrdered By: Rem us Jackeline on 08-15-2022 Clarity (U) Clear Clear [facility] Urine color determinationOrd ered By: Raul Viveros on 08-15-2022 Color (U) Yellow Yellow [facility] Urine glucose detectionOrder ed By: Raul Viveros on 08-15-2022 Glucose Ql (U) Normal mg/dl Normal [facility] Urine leukocyte esterase det ection by dipstickOrdered By: Raul Viveros on 08-15-2022 Leukocyte esterase Test strip Ql (U) Negative Negative [facility] Urine pHOrdered By: Raul shermanr on 08-15-2022 pH (U) 5.0 [pH] 5.0 - 8.0 [facility] Urine sediment bacteria coun t by microscopy (number/high power field)Ordered By: Raul Viveros on 08-15-2022 Bacteria LM.HPF (Urine sed) [#/Area] 0 /[HPF] None Seen [facility] Urine specific gravity measu rementOrdered By: Raul Viveros on 08-15-2022 Specific gravity (U) [Rel density] 1.015 1.002-1.030 [facility] Urobilinogen Auto test strip Ql (U)Ordered By: Remus Viveros on 08-15-2022 Urobilinogen Ql (U) Normal mg/dl Normal [facility] Absolute lymphocyte countOrd ered By: Dr. Barlow on 05-30-2022 Lymphocytes Auto (Unsp spec) [#/Vol] 3.00 10*3/uL 0.83-4.51 [facility] Basophil percentageOrdered B y: Dr. Barlow on 05-30-2022 Basophils/100 WBC (Bld) 0.8 % 0-1 [facility] Bilirubin [Mass/Vol] 0.40 mg/dL 0.20-1.00 [facility] Comment on above: For patients on eltr ombopag therapy, use of Dimension [place] TBIL is not recommended. Chloride [Moles/Vol] 105 mmol/L 98-107 [facility] Cholesterol [Mass/Vol] 219 mg/dL <200 [facility] Comment on above: <200 mg/dL Desirable 200-240 mg/dL Borderline >240 mg/dL High Risk Eosinophils/100 WBC (Bld) 6.3 % 0-5 [facility] Glucose [Mass/Vol] 87 mg/dL 74-106 [facility] Neutrophils (Bld) [#/Vol] 3.6 10*3/uL 2.0-7.7 [facility] Neutrophils/100 WBC (Bld) 47.3 % 47-70 [facility] Potassium [Moles/Vol] 3.8 mmol/L 3.5-5.1 [facility] Comment on above: Moderate Hemolysis, Result may be falsely increased. Protein [Mass/Vol] 7.5 g/dL 6.4-8.2 [facility] Sodium [Moles/Vol] 140 mmol/L 136-145 [facility] Triglyceride [Mass/Vol] 66 mg/dL <199 [facility] Comment on above: The drugs N-Acetylcy steine and Metamizole may falsely depress this assay.Serum Triglycerides Reference Interval Normal <150 mg/dL Borderline high 150 - 199 mg/dL High 200 - 499 mg/dL Very High > or = 500 mg/dL WBC (Bld) [#/Vol] 7.6 10*3/uL 4.4-11.0 [facility] Blood erythrocytes count (nu mber/volume)Ordered By: Dr. Barlow on 05-30-2022 RBC (Bld) [#/Vol] 4.52 10*6/uL 4.2-5.4 [facility] Blood hemoglobin measurement (mass/volume)Ordered By: Dr. Barlow on 05-30-2022 Hemoglobin (Bld) [Mass/Vol] 14.1 g/dL 12.0-15.0 [facility] Blood lymphocytes/100 leukoc ytesOrdered By: Dr. Barlow on 05-30-2022 Lymphocytes/100 WBC (Bld) 39.3 % 19-41 [facility] Blood monocytes/100 leukocyt esOrdered By: Dr. Barlow on 05-30-2022 Monocytes/100 WBC (Bld) 6.2 % 0-10 [facility] Blood platelet mean volumeOr dered By: Dr. Barlow on 05-30-2022 Platelet mean volume (Bld) [Entitic vol] 11.0 fL 6.2-12.0 [facility] Determination of erythrocyte mean corpuscular volume (MCV)Ordered By: Dr. Barlow on 05-30-2022 MCV (RBC) [Entitic vol] 96.0 fL 81-99 [facility] Hematocrit Auto (Bld) [Volum e fraction]Ordered By: Dr. Barlow on 05-30-2022 Hematocrit (Bld) [Volume fraction] 43.4 % 37-47 [facility] - Chemistry and C hemistry - challengeOrdered By: Dr. Barlow on 05-30-2022 ALP [Catalytic activity/Vol] 100 U/L 45-117 [facility] ALT [Catalytic activity/Vol] 20 U/L 13-56 [facility] CO2 [Moles/Vol] 26.0 mmol/L 21.0-32.0 [facility] Globulin (S) [Mass/Vol] 3.8 g/dL 2.2-4.2 [facility] Urea nitrogen/Creatinine [Mass ratio] 12.8 mg/mg 10-20 [facility] - Hematology and Cell countsOrdered By: Dr. Barlow on 05-30-2022 Erythrocyte distribution width (RBC) [Entitic vol] 49.1 fL 35.1-43.9 [facility] Erythrocyte distribution width (RBC) [Ratio] 13.8 % 11.6-14.6 [facility] Immature granulocytes/100 WBC (Bld) 0.100 % 0.0-0.9 [facility] Comment on above: IG% - Immature Granu locytes (promyelocytes, myelocytes and metamyelocytes) > 1% indicates that a LEFT SHIFT is Present. MCH (RBC) [Entitic mass] 31.2 pg 27.0-32.0 [facility] Nucleated RBC/100 WBC (Bld) [Ratio] 0 % 0-5 [facility] MCHC Auto (RBC) [Mass/Vol]Or dered By: Dr. Barlow on 05-30-2022 MCHC (RBC) [Mass/Vol] 32.5 g/dL 32-36 [facility] No Panel InformationOrdered By: Dr. Barlow on 05-30-2022 Estimated GFR (MDRD) Amer 145 mL/min >60 [facility] Comment on above: GFR Calc Estimated GFR (MDRD) Non-Af Amer 120 mL/min >60 [facility] Comment on above: Non- GFR Calc Thyroid Stimulating Hormone (TSH) 1.39 uIU/mL 0.358-3.74 [facility] Vitamin D 25-Hydroxy 48.5 ng/mL [facility] Comment on above: Vitamin D 25(OH) Sta tus Range Deficiency <20 ng/mL (50nmol/L) Insufficiency 20 - 30 ng/mL (50 - 75 nmol/L) Sufficiency 30 - 100 ng/mL (75 - 250 nmol/L) Toxicity >100 ng/mL (>250 nmol/L) Platelets bldOrdered By: Dr. Barlow on 05-30-2022 Platelets (Bld) [#/Vol] 311 10*3/uL 150-450 [facility] Serum or plasma albumin kamilah urement (mass/volume)Ordered By: Dr. Barlow on 05-30-2022 Albumin [Mass/Vol] 3.7 g/dL 3.2-5.0 [facility] Serum or plasma albumin/glob ulin mass ratioOrdered By: Dr. Barlow on 05-30-2022 Albumin/Globulin [Mass ratio] 1.0 {ratio} 0.9-2.4 [facility] Serum or plasma calcium kamilah urement (mass/volume)Ordered By: Dr. Barlow on 05-30-2022 Calcium [Mass/Vol] 9.2 mg/dL 8.5-10.1 [facility] Serum or plasma cholesterol in HDL measurement (mass/volume)Ordered By: Dr. Barlow on 05-30-2022 Cholesterol in HDL [Mass/Vol] 73 mg/dL >40 [facility] Comment on above: The drugs N-Acetylcy steine and Metamizole may falsely depress this assay. Reference Range HDL <40 mg/dL Low HDL Cholesterol HDL >or= 60 mg/dL High HDL Cholesterol Serum or plasma cholesterol in VLDL measurement (mass/volume)Ordered By: Dr. Barlow on 05-30-2022 Cholesterol in VLDL [Mass/Vol] 13 mg/dL 5-40 [facility] Serum or plasma creatinine m easurement (mass/volume)Ordered By: Dr. Barlow on 05-30-2022 Creatinine [Mass/Vol] 0.55 mg/dL 0.55-1.02 [facility] Comment on above: The validity of the calculated GFR & GFRAA in patients over 70 years has not been determined. Clinical correlation is essential. Serum or plasma low density lipoprotein (LDL) cholesterol measurement (mass/volume)Ordered By: Dr. Barlow on 05-30-2022 Cholesterol in LDL [Mass/Vol] 133 mg/dL 0-130 [facility] Serum or plasma urea nitroge n measurement (mass/volume)Ordered By: Dr. Barlow on 05-30-2022 Urea nitrogen [Mass/Vol] 7 mg/dL 7-18 [facility] Thin prep Papanicolaou smear with manual screeningOrdered By: Dr. Barlow on 05-30-2022 Thin prep Papanicolaou smear with manual screening 20 U/L 15-37 [facility] Comment on above: Moderate Hemolysis, Result may be falsely increased. Thin prep Papanicolaou smear with manual screening 9 5-15 [facility] - Microbiology an d Antimicrobial susceptibilityOrdered By: Dr. Barlow on 03-29-2022 SARS-CoV-2 (COVID-19) RNA WILLIAM+probe Ql (Unsp spec) Not detected Not Detect [facility] Comment on above: Normal Reference Ran ge: Not DetectedMethod:(RT-PCR) real-time reverse transcriptase PCRLuminex MERCY Instrument*The Food and Drug Administration (FDA) has issued an Emergency Use Authorization (EAU) for the MERCY SARS-CoV-2 Assay for the rapid detection of the virus that causes COVID-19. This test has been validated, but the [facility] independent review of this validation is pending.*Negative [...] 03-29-2022 Influenza Types A,B Direct FA (DENY) [facility] RSV Ag EIAOrdered By: Dr. Deisi sloan on 03-29-2022 RSV Ag Immune stain Ql (Tiss) [facility] Absolute lymphocyte countOrd ered By: Dr. Palomino on 03-21-2022 Lymphocytes Auto (Unsp spec) [#/Vol] 2.24 10*3/uL 0.83-4.51 [facility] Basophil percentageOrdered B y: Dr. Palomino on 03-21-2022 Basophils/100 WBC (Bld) 0.5 % 0-1 [facility] Bilirubin [Mass/Vol] 0.30 mg/dL 0.20-1.00 [facility] Comment on above: For patients on eltr ombopag therapy, use of Dimension [place] TBIL is not recommended. Chloride [Moles/Vol] 107 mmol/L 98-107 [facility] Eosinophils/100 WBC (Bld) 2.5 % 0-5 [facility] Glucose [Mass/Vol] 118 mg/dL 74-106 [facility] Comment on above: Fasting Glucose resu lt from 100 to 125 mg/dL suggests IMPAIRED HOMEOSTASIS per A.D.A. criteria. Neutrophils (Bld) [#/Vol] 8.8 10*3/uL 2.0-7.7 [facility] Neutrophils/100 WBC (Bld) 70.5 % 47-70 [facility] Potassium [Moles/Vol] 3.7 mmol/L 3.5-5.1 [facility] Protein [Mass/Vol] 7.9 g/dL 6.4-8.2 [facility] Sodium [Moles/Vol] 142 mmol/L 136-145 [facility] WBC (Bld) [#/Vol] 12.5 10*3/uL 4.4-11.0 [facility] Blood erythrocytes count (nu mber/volume)Ordered By: Dr. Palomino on 03-21-2022 RBC (Bld) [#/Vol] 4.52 10*6/uL 4.2-5.4 [facility] Blood hemoglobin measurement (mass/volume)Ordered By: Dr. Palomino on 03-21-2022 Hemoglobin (Bld) [Mass/Vol] 14.1 g/dL 12.0-15.0 [facility] Blood lymphocytes/100 leukoc ytesOrdered By: Dr. Palomino on 03-21-2022 Lymphocytes/100 WBC (Bld) 17.9 % 19-41 [facility] Blood monocytes/100 leukocyt esOrdered By: Dr. Palomino on 03-21-2022 Monocytes/100 WBC (Bld) 8.3 % 0-10 [facility] Blood platelet mean volumeOr dered By: Dr. Palomino on 03-21-2022 Platelet mean volume (Bld) [Entitic vol] 10.6 fL 6.2-12.0 [facility] Determination of erythrocyte mean corpuscular volume (MCV)Ordered By: Dr. Palomino on 03-21-2022 MCV (RBC) [Entitic vol] 96.7 fL 81-99 [facility] Hematocrit Auto (Bld) [Volum e fraction]Ordered By: Dr. Palomino on 03-21-2022 Hematocrit (Bld) [Volume fraction] 43.7 % 37-47 [facility] Influenza virus A and B and SARS-CoV-2 (COVID-19) Ag panel - Upper respiratory specimOrdered By: Dr. Palomino on 03-21-2022 SARS-CoV-2 (COVID-19) RNA WILLIAM+probe Ql (Resp) [facility] - Chemistry and C hemistry - challengeOrdered By: Dr. Palomino on 03-21-2022 ALP [Catalytic activity/Vol] 109 U/L 45-117 [facility] ALT [Catalytic activity/Vol] 15 U/L 13-56 [facility] CO2 [Moles/Vol] 31.0 mmol/L 21.0-32.0 [facility] Globulin (S) [Mass/Vol] 4.2 g/dL 2.2-4.2 [facility] Urea nitrogen/Creatinine [Mass ratio] 14.4 mg/mg 10-20 [facility] - Hematology and Cell countsOrdered By: Dr. Palomino on 03-21-2022 Erythrocyte distribution width (RBC) [Entitic vol] 49.3 fL 35.1-43.9 [facility] Erythrocyte distribution width (RBC) [Ratio] 13.7 % 11.6-14.6 [facility] Immature granulocytes/100 WBC (Bld) 0.300 % 0.0-0.9 [facility] Comment on above: IG% - Immature Granu locytes (promyelocytes, myelocytes and metamyelocytes) > 1% indicates that a LEFT SHIFT is Present. MCH (RBC) [Entitic mass] 31.2 pg 27.0-32.0 [facility] Nucleated RBC/100 WBC (Bld) [Ratio] 0 % 0-5 [facility] MCHC Auto (RBC) [Mass/Vol]Or dered By: Dr. Palomino on 03-21-2022 MCHC (RBC) [Mass/Vol] 32.3 g/dL 32-36 [facility] No Panel InformationOrdered By: Dr. Palomino on 03-21-2022 Estimated Creatinine Clearance Calc 82.08 ml/min [facility] Estimated GFR (MDRD) Amer 143 mL/min >60 [facility] Comment on above: GFR Calc Estimated GFR (MDRD) Non-Af Amer 119 mL/min >60 [facility] Comment on above: Non- GFR Calc Platelets bldOrdered By: Dr. Palomino on 03-21-2022 Platelets (Bld) [#/Vol] 278 10*3/uL 150-450 [facility] Serum or plasma albumin kamilah urement (mass/volume)Ordered By: Dr. Palomino on 03-21-2022 Albumin [Mass/Vol] 3.7 g/dL 3.2-5.0 [facility] Serum or plasma albumin/glob ulin mass ratioOrdered By: Dr. Palomino on 03-21-2022 Albumin/Globulin [Mass ratio] 0.9 {ratio} 0.9-2.4 [facility] Serum or plasma calcium kamilah urement (mass/volume)Ordered By: Dr. Palomino on 03-21-2022 Calcium [Mass/Vol] 9.4 mg/dL 8.5-10.1 [facility] Serum or plasma creatinine m easurement (mass/volume)Ordered By: Dr. Palomino on 03-21-2022 Creatinine [Mass/Vol] 0.55 mg/dL 0.55-1.02 [facility] Comment on above: The validity of the calculated GFR & GFRAA in patients over 70 years has not been determined. Clinical correlation is essential. Serum or plasma urea nitroge n measurement (mass/volume)Ordered By: Dr. Palomino on 03-21-2022 Urea nitrogen [Mass/Vol] 8 mg/dL 7-18 [facility] Thin prep Papanicolaou smear with manual screeningOrdered By: Dr. Palomino on 03-21-2022 Thin prep Papanicolaou smear with manual screening 10 U/L 15-37 [facility] Thin prep Papanicolaou smear with manual screening 4 5-15 [facility] - Microbiology an d Antimicrobial susceptibilityon 01-21-2022 SARS-CoV-2 (COVID-19) RNA WILLIAM+probe Ql (Unsp spec) Not detected [facility] No Panel Informationon 01-21 Influenza Types A,B Rapid (Clinic) Not detected [facility] Absolute lymphocyte countOrd ered By: Dr. Ann on 01-03-2022 Lymphocytes Auto (Unsp spec) [#/Vol] 1.37 10*3/uL 0.83-4.51 [facility] Basophil percentageOrdered B y: Dr. Ann on 01-03-2022 Basophils/100 WBC (Bld) 0.2 % 0-1 [facility] Chloride [Moles/Vol] 108 mmol/L 98-107 [facility] Eosinophils/100 WBC (Bld) 0.0 % 0-5 [facility] Glucose [Mass/Vol] 124 mg/dL 74-106 [facility] Comment on above: Fasting Glucose resu lt from 100 to 125 mg/dL suggests IMPAIRED HOMEOSTASIS per A.D.A. criteria. Neutrophils (Bld) [#/Vol] 7.9 10*3/uL 2.0-7.7 [facility] Neutrophils/100 WBC (Bld) 79.9 % 47-70 [facility] Potassium [Moles/Vol] 3.8 mmol/L 3.5-5.1 [facility] Sodium [Moles/Vol] 143 mmol/L 136-145 [facility] WBC (Bld) [#/Vol] 9.9 10*3/uL 4.4-11.0 [facility] Blood erythrocytes count (nu mber/volume)Ordered By: Dr. Ann on 01-03-2022 RBC (Bld) [#/Vol] 4.49 10*6/uL 4.2-5.4 [facility] Blood hemoglobin measurement (mass/volume)Ordered By: Dr. Ann on 01-03-2022 Hemoglobin (Bld) [Mass/Vol] 14.5 g/dL 12.0-15.0 [facility] Blood lymphocytes/100 leukoc ytesOrdered By: Dr. Ann on 01-03-2022 Lymphocytes/100 WBC (Bld) 13.8 % 19-41 [facility] Blood monocytes/100 leukocyt esOrdered By: Dr. Ann on 01-03-2022 Monocytes/100 WBC (Bld) 5.5 % 0-10 [facility] Blood platelet mean volumeOr dered By: Dr. Ann on 01-03-2022 Platelet mean volume (Bld) [Entitic vol] 10.9 fL 6.2-12.0 [facility] Determination of erythrocyte mean corpuscular volume (MCV)Ordered By: Dr. Ann on 01-03-2022 MCV (RBC) [Entitic vol] 96.0 fL 81-99 [facility] Hematocrit Auto (Bld) [Volum e fraction]Ordered By: Dr. Ann on 01-03-2022 Hematocrit (Bld) [Volume fraction] 43.1 % 37-47 [facility] - Chemistry and C hemistry - challengeOrdered By: Dr. Ann on 01-03-2022 CO2 [Moles/Vol] 28.0 mmol/L 21.0-32.0 [facility] Urea nitrogen/Creatinine [Mass ratio] 27.4 mg/mg 10-20 [facility] - Hematology and Cell countsOrdered By: Dr. Ann on 01-03-2022 Erythrocyte distribution width (RBC) [Entitic vol] 51.5 fL 35.1-43.9 [facility] Erythrocyte distribution width (RBC) [Ratio] 14.5 % 11.6-14.6 [facility] Immature granulocytes/100 WBC (Bld) 0.600 % 0.0-0.9 [facility] Comment on above: IG% - Immature Granu locytes (promyelocytes, myelocytes and metamyelocytes) > 1% indicates that a LEFT SHIFT is Present. MCH (RBC) [Entitic mass] 32.3 pg 27.0-32.0 [facility] Nucleated RBC/100 WBC (Bld) [Ratio] 0 % 0-5 [facility] MCHC Auto (RBC) [Mass/Vol]Or dered By: Dr. Ann on 01-03-2022 MCHC (RBC) [Mass/Vol] 33.6 g/dL 32-36 [facility] No Panel InformationOrdered By: Dr. Ann on 01-03-2022 Estimated Creatinine Clearance Calc 78.13 ml/min [facility] Estimated GFR (MDRD) Amer 146 mL/min >60 [facility] Comment on above: GFR Calc Estimated GFR (MDRD) Non-Af Amer 120 mL/min >60 [facility] Comment on above: Non- GFR Calc Platelets bldOrdered By: Dr. Ann on 01-03-2022 Platelets (Bld) [#/Vol] 277 10*3/uL 150-450 [facility] Serum or plasma calcium kamilah urement (mass/volume)Ordered By: Dr. Ann on 01-03-2022 Calcium [Mass/Vol] 9.6 mg/dL 8.5-10.1 [facility] Serum or plasma creatinine m easurement (mass/volume)Ordered By: Dr. Ann on 01-03-2022 Creatinine [Mass/Vol] 0.55 mg/dL 0.55-1.02 [facility] Comment on above: The validity of the calculated GFR & GFRAA in patients over 70 years has not been determined. Clinical correlation is essential. Serum or plasma urea nitroge n measurement (mass/volume)Ordered By: Dr. Ann on 01-03-2022 Urea nitrogen [Mass/Vol] 15 mg/dL 7-18 [facility] Thin prep Papanicolaou smear with manual screeningOrdered By: Dr. Ann on 01-03-2022 Thin prep Papanicolaou smear with manual screening 7 5-15 [facility] Basophil percentageOrdered B y: Dr. Fortune on 01-02-2022 Lactate [Moles/Vol] 1.8 mmol/L 0.4-2.0 [facility] - Microbiology an d Antimicrobial susceptibilityOrdered By: Dr. Barlow on 12-31-2021 SARS-CoV-2 (COVID-19) RNA WILLIAM+probe Ql (Unsp spec) Not detected Not Detect [facility] Comment on above: Normal Reference Ran ge: Not DetectedMethod:(RT-PCR) real-time reverse transcriptase PCRLuminex MERCY Instrument*The Food and Drug Administration (FDA) has issued an Emergency Use Authorization (EAU) for the SongFlame SARS-CoV-2 Assay for the rapid detection of the virus that causes COVID-19. This test has been validated, but the [facility] independent review of this validation is pending.*Negative [...] 12-31-2021 Influenza Types A,B Direct FA (DENY) [facility] RSV Ag Immune stain Ql (Tiss )Ordered By: Dr. Barlow on 12-31-2021 Rapid RSV (DFA) RSV Antigen [facility] - Microbiology an d Antimicrobial susceptibilityon 11-30-2021 SARS-CoV-2 (COVID-19) RNA WILLIAM+probe Ql (Unsp spec) Not detected Not Detect [facility] Work Phone: Comment on above: Normal Reference Ran ge: Not DetectedMethod:(RT-PCR) real-time reverse transcriptase PCRLuminex MERCY Instrument*The Food and Drug Administration (FDA) has issued an Emergency Use Authorization (EAU) for the SongFlame SARS-CoV-2 Assay for the rapid detection of the virus that causes COVID-19. This test has been validated, but the [facility] independent review of this validation is pending.*Negative [...] Auto (Unsp spec) [#/Vol] 2.65 10*3/uL 0.83-4.51 [facility] Work Phone: Basophil percentageon 2021 Basophils/100 WBC (Bld) 0.6 % 0-1 [facility] Work Phone: [phone] Bilirubin [Mass/Vol] 0.20 mg/dL 0.20-1.00 [facility] Work Phone: [phone] Comment on above: For patients on eltr ombopag therapy, use of Dimension [place] TBIL is not recommended. Chloride [Moles/Vol] 103 mmol/L 98-107 [facility] Work Phone: Eosinophils/100 WBC (Bld) 3.5 % 0-5 [facility] Work Phone: [phone] Glucose [Mass/Vol] 98 mg/dL 74-106 [facility] Work Phone: Neutrophils (Bld) [#/Vol] 6.8 10*3/uL 2.0-7.7 [facility] Work Phone: Neutrophils/100 WBC (Bld) 64.9 % 47-70 [facility] Work Phone: Potassium [Moles/Vol] 3.8 mmol/L 3.5-5.1 [facility] Work Phone: [phone] Comment on above: Slight Hemolysis, Re sult may be falsely increased. Protein [Mass/Vol] 7.8 g/dL 6.4-8.2 [facility] Work Phone: Sodium [Moles/Vol] 138 mmol/L 136-145 [facility] Work Phone: WBC (Bld) [#/Vol] 10.4 10*3/uL 4.4-11.0 [facility] Work Phone: Blood erythrocytes count (nu mber/volume)on 11-28-2021 RBC (Bld) [#/Vol] 4.40 10*6/uL 4.2-5.4 [facility] Work Phone: [phone] Blood hemoglobin measurement (mass/volume)on 11-28-2021 Hemoglobin (Bld) [Mass/Vol] 14.0 g/dL 12.0-15.0 [facility] Work Phone: Blood lymphocytes/100 leukoc yteson 11-28-2021 Lymphocytes/100 WBC (Bld) 25.4 % 19-41 [facility] Work Phone: Blood monocytes/100 leukocyt eson 11-28-2021 Monocytes/100 WBC (Bld) 5.2 % 0-10 [facility] Work Phone: Blood platelet mean volumeon 11-28-2021 Platelet mean volume (Bld) [Entitic vol] 11.6 fL 6.2-12.0 [facility] Work Phone: [phone] Determination of erythrocyte mean corpuscular volume (MCV)on 11-28-2021 MCV (RBC) [Entitic vol] 97.0 fL 81-99 [facility] Work Phone: Hematocrit Auto (Bld) [Volum e fraction]on 11-28-2021 Hematocrit (Bld) [Volume fraction] 42.7 % 37-47 [facility] Work Phone: [phone] Laboratory - Chemistry and C hemistry - challengeon 11-28-2021 ALP [Catalytic activity/Vol] 109 U/L 45-117 [facility] Work Phone: ALT [Catalytic activity/Vol] 24 U/L 13-56 [facility] Work Phone: CO2 [Moles/Vol] 26.0 mmol/L 21.0-32.0 [facility] Work Phone: Globulin (S) [Mass/Vol] 4.1 g/dL 2.2-4.2 [facility] Work Phone: Urea nitrogen/Creatinine [Mass ratio] 24.8 mg/mg 10-20 [facility] Work Phone: Laboratory - Hematology and Cell countson 11-28-2021 Erythrocyte distribution width (RBC) [Entitic vol] 49.1 fL 35.1-43.9 [facility] Work Phone: Erythrocyte distribution width (RBC) [Ratio] 13.8 % 11.6-14.6 [facility] Work Phone: Immature granulocytes/100 WBC (Bld) 0.400 % 0.0-0.9 [facility] Work Phone: Comment on above: IG% - Immature Granu locytes (promyelocytes, myelocytes and metamyelocytes) > 1% indicates that a LEFT SHIFT is Present. MCH (RBC) [Entitic mass] 31.8 pg 27.0-32.0 [facility] Work Phone: Nucleated RBC/100 WBC (Bld) [Ratio] 0 % 0-5 [facility] Work Phone: MCHC Auto (RBC) [Mass/Vol]on 11-28-2021 MCHC (RBC) [Mass/Vol] 32.8 g/dL 32-36 [facility]: No Panel Informationon 11-28 Estimated GFR (MDRD) Amer 153 mL/min >60 [facility] Work Phone: Comment on above: GFR Calc Estimated GFR (MDRD) Non-Af Amer 126 mL/min >60 [facility] Work Phone: Comment on above: Non- GFR Calc Thyroid Stimulating Hormone (TSH) 1.16 uIU/mL 0.358-3.74 [facility] Work Phone: Vitamin D 25-Hydroxy 31.6 ng/mL [facility] Work Phone: Comment on above: Vitamin D 25(OH) Sta tus Range Deficiency <20 ng/mL (50nmol/L) Insufficiency 20 - 30 ng/mL (50 - 75 nmol/L) Sufficiency 30 - 100 ng/mL (75 - 250 nmol/L) Toxicity >100 ng/mL (>250 nmol/L) Platelets bldon 11-28-2021 Platelets (Bld) [#/Vol] 304 10*3/uL 150-450 [facility] Work Phone: Serum or plasma albumin kamilah urement (mass/volume)on 11-28-2021 Albumin [Mass/Vol] 3.7 g/dL 3.2-5.0 [facility] Work Phone: Serum or plasma albumin/glob ulin mass ratioon 11-28-2021 Albumin/Globulin [Mass ratio] 0.9 {ratio} 0.9-2.4 [facility] Work Phone: Serum or plasma calcium kamilah urement (mass/volume)on 11-28-2021 Calcium [Mass/Vol] 9.0 mg/dL 8.5-10.1 [facility] Work Phone: Serum or plasma creatinine m easurement (mass/volume)on 11-28-2021 Creatinine [Mass/Vol] 0.52 mg/dL 0.55-1.02 [facility] Work Phone: Comment on above: The validity of the calculated GFR & GFRAA in patients over 70 years has not been determined. Clinical correlation is essential. Serum or plasma urea nitroge n measurement (mass/volume)on 11-28-2021 Urea nitrogen [Mass/Vol] 13 mg/dL 7-18 [facility] Work Phone: Thin prep Papanicolaou smear with manual screeningon 11-28-2021 Thin prep Papanicolaou smear with manual screening 21 U/L 15-37 [facility] Work Phone: Comment on above: Slight Hemolysis, Re sult may be falsely increased. Thin prep Papanicolaou smear with manual screening 9 - [facility] Work Phone: BACTERIAL VAGINOSIS AMPLIFIC ATIONon 10-27-2021 Lactobacillus crispatus+gasseri+jense heather + Gardnerella vaginalis + Atopobium vaginae rRNA WILLIAM+probe Ql (Vag fld) Negative Negative for bacterial vaginosis [place] ONESIMO / TRICHOMONAS AMPLIF ICATIONon 10-27-2021 C. glabrata RNA WILLIAM+probe Ql (Vag fld) Negative Negative for Onesimo glabrata [place] Onesimo albicans, C. dubliniensis, C. parapsilosis, and C. tropicalis RNA WILLIAM+probe Ql (Vag fld) Negative Negative for Onesimo species [place] T. vaginalis DNA WILLIAM+probe Ql (Unsp spec) Negative Negative for Trichomonas vaginalis by amplification [place] UA DIP, URINE (POC)on 2021 BILIRUBIN UA (POCT) Negative Negative [facility] CLARITY UA (POCT) Clear [facility] COLOR UA (POCT) Dark yellow [facility] GLUCOSE UA (POCT) Negative Negative mg/dL [facility] HEMOGLOBIN/BLOOD UA (POCT) Negative Negative [place] KETONE UA (POCT) Negative Negative mg/dL [facility] LEUKOCYTES UA (POCT) Negative Negative [facility] NITRITE UA (POCT) Negative Negative [facility] PH UA (POCT) 6.0 4.5 - 8.0 [place] Protein Ql (U) Negative Negative mg/dL [facility] SPECIFIC GRAVITY UA (POCT) >=1.030 1.005 - 1.030 [place] UROBILINOGEN UA (POCT) 0.2 E.U./dL Normal E.U./ dL [place] Culture, urineon 07-27-2021 Bacteria identified Cx Nom (U) Mixed Gram Pos & Gram Neg Org [facility] Work Phone: Absolute lymphocyte counton 07-26-2021 Lymphocytes Auto (Unsp spec) [#/Vol] 2.58 10*3/uL 0.83-4.51 [facility] Work Phone: Basophil percentageon 2021 Basophils/100 WBC (Bld) 0.7 % 0-1 [facility] Work Phone: Eosinophils/100 WBC (Bld) 2.2 % 0-5 [facility] Work Phone: Neutrophils (Bld) [#/Vol] 4.6 10*3/uL 2.0-7.7 [facility] Work Phone: Neutrophils/100 WBC (Bld) 57.1 % 47-70 [facility] Work Phone: WBC (Bld) [#/Vol] 8.0 10*3/uL 4.4-11.0 [facility] Work Phone: Blood erythrocytes count (nu mber/volume)on 07-26-2021 RBC (Bld) [#/Vol] 5.03 10*6/uL 4.2-5.4 [facility]: Blood hemoglobin measurement (mass/volume)on 07-26-2021 Hemoglobin (Bld) [Mass/Vol] 16.1 g/dL 12.0-15.0 [facility] Work Phone: Blood lymphocytes/100 leukoc yteson 07-26-2021 Lymphocytes/100 WBC (Bld) 32.1 % 19-41 [facility] Work Phone: Blood monocytes/100 leukocyt eson 07-26-2021 Monocytes/100 WBC (Bld) 7.7 % 0-10 [facility] Work Phone: Blood platelet mean volumeon 07-26-2021 Platelet mean volume (Bld) [Entitic vol] 12.3 fL 6.2-12.0 [facility] Work Phone: Determination of erythrocyte mean corpuscular volume (MCV)on 07-26-2021 MCV (RBC) [Entitic vol] 94.0 fL 81-99 [facility] Work Phone: Hematocrit Auto (Bld) [Volum e fraction]on 07-26-2021 Hematocrit (Bld) [Volume fraction] 47.3 % 37-47 [facility] Work Phone: [phone] Laboratory - Hematology and Cell countson 07-26-2021 Erythrocyte distribution width (RBC) [Entitic vol] 48.4 fL 35.1-43.9 [facility] Work Phone: Erythrocyte distribution width (RBC) [Ratio] 14.0 % 11.6-14.6 [facility] Work Phone: Immature granulocytes/100 WBC (Bld) 0.200 % 0.0-0.9 [facility] Work Phone: [phone] Comment on above: IG% - Immature Granu locytes (promyelocytes, myelocytes and metamyelocytes) > 1% indicates that a LEFT SHIFT is Present. MCH (RBC) [Entitic mass] 32.0 pg 27.0-32.0 [facility] Work Phone: Nucleated RBC/100 WBC (Bld) [Ratio] 0 % 0-5 [facility] Work Phone: MCHC Auto (RBC) [Mass/Vol]on 07-26-2021 MCHC (RBC) [Mass/Vol] 34.0 g/dL 32-36 [facility] Work Phone: Platelets bldon 07-26-2021 Platelets (Bld) [#/Vol] 235 10*3/uL 150-450 [facility] Work Phone: Absolute lymphocyte counton 06-06-2021 Lymphocytes Auto (Unsp spec) [#/Vol] 0.76 10*3/uL 0.83-4.51 [facility] Work Phone: Basophil percentageon 2021 Basophils/100 WBC (Bld) 0.2 % 0-1 [facility] Work Phone: Bilirubin [Mass/Vol] 0.40 mg/dL 0.20-1.00 [facility] Work Phone: Comment on above: For patients on eltr ombopag therapy, use of Dimension [place] TBIL is not recommended. Chloride [Moles/Vol] 106 mmol/L 98-107 [facility] Work Phone: Eosinophils/100 WBC (Bld) 0.0 % 0-5 [facility] Work Phone: Glucose [Mass/Vol] 107 mg/dL 74-106 [facility] Work Phone: Comment on above: Fasting Glucose resu lt from 100 to 125 mg/dL suggests IMPAIRED HOMEOSTASIS per A.D.A. criteria. Neutrophils (Bld) [#/Vol] 5.3 10*3/uL 2.0-7.7 [facility] Work Phone: Neutrophils/100 WBC (Bld) 85.0 % 47-70 [facility] Work Phone: Potassium [Moles/Vol] 4.2 mmol/L 3.5-5.1 [facility] Work Phone: Protein [Mass/Vol] 7.6 g/dL 6.4-8.2 [facility] Work Phone: Sodium [Moles/Vol] 140 mmol/L 136-145 [facility] Work Phone: WBC (Bld) [#/Vol] 6.2 10*3/uL 4.4-11.0 [facility] Work Phone: Blood erythrocytes count (nu mber/volume)on 06-06-2021 RBC (Bld) [#/Vol] 4.51 10*6/uL 4.2-5.4 [facility] Work Phone: Blood hemoglobin measurement (mass/volume)on 06-06-2021 Hemoglobin (Bld) [Mass/Vol] 14.0 g/dL 12.0-15.0 [facility] Work Phone: Blood lymphocytes/100 leukoc yteson 06-06-2021 Lymphocytes/100 WBC (Bld) 12.2 % 19-41 [facility] Work Phone: Blood monocytes/100 leukocyt eson 06-06-2021 Monocytes/100 WBC (Bld) 2.4 % 0-10 [facility] Work Phone: [phone] Blood platelet mean volumeon 06-06-2021 Platelet mean volume (Bld) [Entitic vol] 11.5 fL 6.2-12.0 [facility] Work Phone: [phone] Determination of erythrocyte mean corpuscular volume (MCV)on 06-06-2021 MCV (RBC) [Entitic vol] 93.6 fL 81-99 [facility] Work Phone: Hematocrit Auto (Bld) [Volum e fraction]on 06-06-2021 Hematocrit (Bld) [Volume fraction] 42.2 % 37-47 [facility] Work Phone: [phone] Laboratory - Chemistry and C hemistry - challengeon 06-06-2021 ALP [Catalytic activity/Vol] 123 U/L 45-117 [facility] Work Phone: ALT [Catalytic activity/Vol] 21 U/L 13-56 [facility] Work Phone: CO2 [Moles/Vol] 29.0 mmol/L 21.0-32.0 [facility] Work Phone: [phone] Globulin (S) [Mass/Vol] 3.9 g/dL 2.2-4.2 [facility] Work Phone: [phone] Urea nitrogen/Creatinine [Mass ratio] 18.4 mg/mg 10-20 [facility] Work Phone: Laboratory - Hematology and Cell countson 06-06-2021 Erythrocyte distribution width (RBC) [Entitic vol] 49.0 fL 35.1-43.9 [facility] Work Phone: [phone] Erythrocyte distribution width (RBC) [Ratio] 14.3 % 11.6-14.6 [facility] Work Phone: [phone] Immature granulocytes/100 WBC (Bld) 0.200 % 0.0-0.9 [facility] Work Phone: [phone] Comment on above: IG% - Immature Granu locytes (promyelocytes, myelocytes and metamyelocytes) > 1% indicates that a LEFT SHIFT is Present. MCH (RBC) [Entitic mass] 31.0 pg 27.0-32.0 [facility] Work Phone: Nucleated RBC/100 WBC (Bld) [Ratio] 0 % 0-5 [facility] Work Phone: MCHC Auto (RBC) [Mass/Vol]on 06-06-2021 MCHC (RBC) [Mass/Vol] 33.2 g/dL 32-36 [facility] Work Phone: No Panel Informationon 06-06 Estimated GFR (MDRD) Amer 166 mL/min >60 [facility] Work Phone: Comment on above: GFR Calc Estimated GFR (MDRD) Non-Af Amer 137 mL/min >60 [facility] Work Phone: Comment on above: Non- GFR Calc Thyroid Stimulating Hormone (TSH) 0.68 uIU/mL 0.358-3.74 [facility] Work Phone: Vitamin D 25-Hydroxy 47.8 ng/mL [facility] Work Phone: Comment on above: Vitamin D 25(OH) Sta tus Range Deficiency <20 ng/mL (50nmol/L) Insufficiency 20 - 30 ng/mL (50 - 75 nmol/L) Sufficiency 30 - 100 ng/mL (75 - 250 nmol/L) Toxicity >100 ng/mL (>250 nmol/L) Platelets bldon 06-06-2021 Platelets (Bld) [#/Vol] 326 10*3/uL 150-450 [facility] Work Phone: Serum or plasma albumin kamilah urement (mass/volume)on 06-06-2021 Albumin [Mass/Vol] 3.7 g/dL 3.2-5.0 [facility] Work Phone: Serum or plasma albumin/glob ulin mass ratioon 06-06-2021 Albumin/Globulin [Mass ratio] 0.9 {ratio} 0.9-2.4 [facility] Work Phone: Serum or plasma calcium kamilah urement (mass/volume)on 06-06-2021 Calcium [Mass/Vol] 9.1 mg/dL 8.5-10.1 [facility] Work Phone: Serum or plasma creatinine m easurement (mass/volume)on 06-06-2021 Creatinine [Mass/Vol] 0.49 mg/dL 0.55-1.02 [facility] Work Phone: Comment on above: The validity of the calculated GFR & GFRAA in patients over 70 years has not been determined. Clinical correlation is essential. Serum or plasma urea nitroge n measurement (mass/volume)on 06-06-2021 Urea nitrogen [Mass/Vol] 9 mg/dL 7-18 [facility] Work Phone: Thin prep Papanicolaou smear with manual screeningon 06-06-2021 Thin prep Papanicolaou smear with manual screening 19 U/L 15-37 [facility] Work Phone: Thin prep Papanicolaou smear with manual screening 5 5-15 [facility] Work Phone: CNTHERAPYon 01-12-2018 CNTHERAPY OT/PT/Speech Visit (SPEMDR) TONYA CUELLO ([id number]) 1960 Tanya Romero Time Provider [id number]/5/18 10:30 AM SPEECH [facility] SPEMDREncounter Number: [id number] Time Provider Department [id number]/12/2018 10:30 AM [id number] [facility]: Speech Instrumental Swallow Eval [3660] Speech Discharge [7358]Primary Visit Diagnosis:Oral phase dysphagia [R13.11]Allergies As of [...] 1.4 % MUCOSAL AEROSOL * Use 1 [place] as instructed as * Patient not taking: Reported on 12/20/2017 * DESITIN 40 % TOPICAL OINTMENT Apply to buttocks twice daily * COMPOUNDED PRESCRIPTION Light talker Coreyran Adairmercy P* * WHEELCHAIR CUSHION MISC Use daily for prevention of d* * MILK OF MAGNESIA 400 MG/5 ML * as neededProgress Notes:Elizabeth Iniguez [facility]-AUTOMOTIVE BRAKE TECHNICIAN 01/12/2018 4:34 PM SignedEpisode Visit Count: Visit count could not be calculated. Make sure you areusing a visit which is associated with an episode.Start of Care Date: 01/12/18Onset Date: 12/08/17Patient Identified by Name and Date of : [facility] REHABILITATION AND SPORTS THERAPYMODIFIED BARIUM [...] degrees for all PO;-Small Bite/Sip;-Supervision/A ssistance for meals.AUTOMOTIVE BRAKE TECHNICIAN Recommendations:-Diet-S wallowing Precautions- continue Speech Therapy recommendations within longterm Goals for Modified Barium Swallow: created for [...] Level: Required Assistance (aregivers assist/ [facility] in [facility] )Assistance Required With: Swallowing Precautions;Other: See Comment (- all ADLtasks)Assistance Available: 24 Hour (- lives in longterm )OBJECTIVE: MEASURES WITH LEVEL OF FUNCTION:Instrumental Swallow Assessment Type: Modified Barium Swallow StudyModified Barium Swallow Views: Lateral positionMBS Consistencies Tested: Thin Barium Liquids;Pudding Thick BariumLiquids;[place] Thick Barium Liquids;Soft Solid With Barium Paste;Puree WithBarium Paste;Solid With Barium PasteOral Phase:Lip Closure: Profuse escape through open lips (- anterior protrusion of tonguebeyond lips )Profuse Escape Through Open Lips With: Thin Liquids;[place] ThickenedLiquids;Puree; Soft Solid;SolidTongue Control During Bolus Hold: [...] n DemonstrationTREATMENT: Performed Modified Barium Swallowing Study (20348).Evaluation: Modified Barium Swallow Evaluation (36174)Swallow / Dysphagia (52568): Skilled Intervention: -Provided video review;writtenAND verbal education [...] understanding ofeducation provided this date.Billing:Modified Barium Swallow (93404) and Dysphagia Treatment (93665)Total time: 30 minutesElizabeth Iniguez CCC-AUTOMOTIVE BRAKE TECHNICIAN Idania Hendricks [facility] PROGRESSon 01-12-2018 Protein mass conc HNO ID: [id number]: Elizabeth (Ceramic Capacitor Processor) FuerstService: (none)Author Type: Speech Language PathologistType: Progress NotesFiled: 01/12/2018 4:34 PMNote Text:Episode Visit Count: Visit count could not be calculated. Make sure youare using a visit which is associated with an episode.Start of Care Date: 01/12/18Onset Date: 12/08/17Patient Identified by Name and Date of : [facility] REHABILITATION AND SPORTS THERAPYMODIFIED BARIUM [...] degrees for all PO;-Small Bite/Sip;-Supervision/A ssistance for meals.AUTOMOTIVE BRAKE TECHNICIAN Recommendations:-Diet-S wallowing Precautions- continue Speech Therapy recommendations within longterm Goals for Modified Barium Swallow: created for [...] aspiration; texture tolerance levels . Patient residesin longterm with Caregivers assisting with all ADL tasks. Caregiverreports no previous PNA or recent change in medical status. Caregivernote Pt coughs sometimes, but that is nothing newPatient Goals: eat/drink without restrictionsPrior Functional Level: Required Assistance (aregivers assist/ lives ingroup home )Assistance Required With: Swallowing Precautions;Other: See Comment (- allADL tasks)Assistance Available: 24 Hour (- lives in longterm )OBJECTIVE: MEASURES WITH LEVEL OF FUNCTION:Instrumental Swallow Assessment Type: Modified Barium Swallow StudyModified Barium Swallow Views: Lateral positionMBS Consistencies Tested: Thin Barium Liquids;Pudding Thick BariumLiquids;[place] Thick Barium Liquids;Soft Solid With Barium Paste;PureeWith Barium Paste;Solid With Barium PasteOral Phase:Lip Closure: Profuse escape through open lips (- anterior protrusion oftongue beyond lips )Profuse Escape Through Open Lips With: Thin Liquids;[place] ThickenedLiquids;Puree; Soft Solid;SolidTongue Control During Bolus Hold: [...] n DemonstrationTREATMENT: Performed Modified Barium Swallowing Study (04482).Evaluation: Modified Barium Swallow Evaluation (25349)Swallow / Dysphagia (21498): Skilled Intervention: -Provided videoreview; writtenAND verbal education [...] understanding ofeducation provided this date.Billing:Modified Barium Swallow (39593) and Dysphagia Treatment (29064)Total time: 30 minutesElizabeth Iniguez CCC-AUTOMOTIVE BRAKE TECHNICIAN [facility] XR MOD BARIUM SWALLOW W CHAPIS Durand [...] Kerma: 18.0 mGyDose Area Product (DAP): 3450.0 mGy*ejO0Wapoap time: 3:23 min:secRESULT: See speech pathology notes.IMPRESSION: See speech pathology notes.Quality Assurance Engineer: ALEXIS Transcribe Date/Time: Jan 12 2018 11:31ADictated by : LISY ALONSO MDThiorlando examination was interpreted and the report reviewed and electronically signed by: LISY ALONSO MD on Jan 12 2018 1:06PM [id number] CN Normal [facility] BMPon 11-07-2016 Anion gap 8 mmol/L Normal 5-16 [facility] Comment on above: Order Comment: Campu s: M Performed By: #### L [id number], [id number] ####[facility] [id number] [place], [place] [address]Pr# [phone] BUN/Creatinine Ratio 14 mg[facility]mg Low 15-24 [facility] Comment on [facility]: Order Comment: Campu s: M Performed By: #### L 500.66822, L500.37515 ####[facility] [id number] [place], [place] [address]Oa# [phone] Calcium 8.9 mg/dL [facility].5[facility]10.1 [facility] Comment [facility] above: Order Comment: Campu s: M Performed By: #### L 500.37049, L500.50532 ####[facility] [id number] [place], [place] [address]Zh# [phone] Chloride 103 mmol/L Normal 98-107 [facility] Comment on above: Order Comment: Campu s: M Performed By: #### L 500.40910, L500.09364 ####[facility] [id number] [place], [place] [address]Zx# [phone] CO2 30 mmol/L Normal 21-32 [facility] Comment on above: Order Comment: Campu s: M Performed By: #### L 500.47514, L500.45754 ####[facility] [id number] [place], [place] [address]Ul# [phone] Creatinine 0.487 mg/dL Low 0.510-0.950 [facility] Comment on above: Order Comment: Campu s: M Result Comment: Ariana ents receiving either N-Acetylcysteine (NAC) orMetamizole prior to venipuncture, may have falsely depressedresults. Performed By: #### L 500.43204, L500.60425 ####[facility] [id number] [place], [place] [address]Gd# [phone] Glucose mass conc 84 mg/dL Normal 70-100 [facility] Comment on above: Order Comment: Campu s: M Result Comment: 70-1 00-Normal Fasting; 564-100-Zgcgjlwy Fasting; greaterthan 126 on more than one result-Diabetes. ADA guidelines Performed By: #### L 500.03520, L500.86425 ####[facility] [id number] [place], [place] [address]Rb# [phone] Potassium molar conc 4.4 mmol/L Normal 3.5-5.1 [facility] [place] Comment on above: Order Comment: Campu s: M Performed By: #### L 500.31575, L500.50517 ####[facility] [id number] [place], [place] [address]Wl# [phone] Sodium 140 mmol/L Normal 136-145 [facility] Comment on above: Order Comment: Campu s: M Performed By: #### L 500.27080, L500.40269 ####[facility] [id number] [place], [place] [address]Po# [phone] Urea nitrogen 7 mg/dL Normal 7-26 [facility] Comment on above: Order Comment: Campu s: M Performed By: #### L 500.17785, L500.93749 ####[facility] [id number] [place], [place] [address]Yt# [phone] GFR ESTon 11-07-2016 IF AMER Greater than 60 Normal [facility] [place] Comment on above: Order Comment: Shashiu s: M Performed By: #### L 500.18946, L500.15569 ####[facility] [id number] [place], [place] [address]Dx# [phone] IF non-AFR AMER Greater than 60 Normal [facility] [place] Comment on above: Order Comment: Shashiu s: M Performed By: #### L 500.55623, L500.96737 ####[facility] [id number] [place], [place] [address]Gp# [phone] ORon 11-07-2016 OPERATIVE REPORT This is a preliminar y report only, as the practitioner review and authentication has not occurred. Normal [facility] OR DATE OF SERVICE: 11/07/2016PREOPERATIVE DIAGNOSES:1. Periodontitis.2. Failing amalgam restorations.POSTOPERAT CHRIS DIAGNOSES:1. Periodontitis.2. Failing amalgam restorations.OPERATION: 1. Thorough cleansing of oral cavity with chlorhexidine rinse.2. Full mouth dental and periodontal charting.3. Four-bite wing dental radiographs.4. Prophy.5. Amalgam restorations on 2, 3, 14, and 29.SURGEON: Yang Abrams DMD.EXTRUDING PRESS OPERATOR: [facility] OR staff.ANESTHESIA: General anesthesia via nasotracheal [...] tothe postanesthesia care unit in satisfactory condition. [facility] PATIENT NAME: TON[facility] FLETCHER L1320 [facility] REC #: [id number] [address] DATE:DISCHARGE DATE:OPERATIVE REPORT ATTENDING PHY: Yang Abrams [...] am willing to send the patient [place] [facility] for [place], but itwould be an [...] patient and itis not a necessity. JM Feldman/[id number]: 11/07/2016 09:18DT: 11/07/2016 09:39SSI File#: [id number] #: [id number] [facility] PATIENT NAME: TONYA FLETCHER L1320 [facility] Dr[address] Guzmán MEDICAL REC #: [id number], [place] [address] DATE:DISCHARGE DATE:OPERATIVE REPORT ATTENDING PHY: Yang Abrams DMD Normal [facility] No Panel Information Influenza Types A,B Direct FA (DENY) [facility] Work Phone: RSV Ag Immune stain Ql (Tiss ) Rapid RSV (DFA) RSV Antigen [facility] Work Phone: Vital Signs Date Time Vital Sign Value Performing Clinician Faci lity 09-07-2024 13:24-0400 Body temperature 97.7 [degF] Dr. Michelle Marroquin MD Work Phone: [facility] 09-07-2024 13:24-0400 Diastolic blood pressure 70 mm[Hg] Dr. Michelle Marroquin MD Work Phone: [facility] 09-07-2024 13:24-0400 Heart rate 92 /min Dr. Michelle Marroquin MD Work Phone: [facility] 09-07-2024 13:24-0400 Respiratory rate 17 /min Dr. Michelle Marroquin MD Work Phone: [facility] 09-07-2024 13:24-0400 SaO2% (BldA) [Mass fraction] 97 % Dr. Michelle Marroquin MD Work Phone: [facility] 09-07-2024 13:24-0400 Systolic blood pressure 113 mm[Hg] Dr. Michelle Marroquin MD Work Phone: [facility] 09-07-2024 07:00-0400 Body mass index (BMI) [Ratio] 27.6 kg/m2 Dr. Michelle Marroquin MD Work Phone: [facility] 09-07-2024 07:00-0400 Body weight 63.[address] Michelle Marroquin MD Work Phone: [facility] 09-06-2024 13:45-0400 Inhaled oxygen flow rate 2 L/min Dr. Michelle Marroquin MD Work Phone: [facility] 09-06-2024 12:01-0400 Body height 152.[address] Michelle Marroquin MD Work Phone: [facility] 09-05-2024 13:40-0400 Body temperature 97.6 [degF] Dr. Michelle Marroquin MD Work Phone: [facility] 09-05-2024 13:40-0400 Diastolic blood pressure 75 mm[Hg] Dr. Michelle Marroquin MD Work Phone: [facility] 09-05-2024 13:40-0400 Heart rate 79 /min Dr. Michelle Marroquin MD Work Phone: [facility] 09-05-2024 13:40-0400 Respiratory rate 20 /min Dr. Michelle Marroquin MD Work Phone: [facility] 09-05-2024 13:40-0400 SaO2% (BldA) [Mass fraction] 97 % Dr. Michelle Marroquin MD Work Phone: [facility] 09-05-2024 13:40-0400 Systolic blood pressure 119 mm[Hg] Dr. Michelle Marroquin MD Work Phone: [facility] 09-05-2024 07:29-0400 Body height 152.[address] Michelle Marroquin MD Work Phone: [facility] 08-26-2024 18:25-0400 Body temperature 96.8 [degF] Haja Coley MD Work Phone: [place] 08-26-2024 18:25-0400 Diastolic blood pressure 78 mm[Hg] Haja Coley MD Work Phone: [facility] 08-26-2024 18:25-0400 Heart rate 82 /min Haja Coley MD Work Phone: [place] 08-26-2024 18:25-0400 Respiratory rate 21 /min Haja Coley MD Work Phone: [place] 08-26-2024 18:25-0400 SaO2% (BldA) [Mass fraction] 94 % Haja Coley MD Work Phone: [place] 08-26-2024 18:25-0400 Systolic blood pressure 130 mm[Hg] Haja Coley MD Work Phone: [place] 08-10-2024 14:49-0400 Diastolic blood pressure 80 mm[Hg] Dr. Michelle Marroquin MD Work Phone: [facility] 08-10-2024 14:49-0400 Heart rate 74 /min Dr. Michelle Marroquin MD Work Phone: [facility] 08-10-2024 14:49-0400 SaO2% (BldA) [Mass fraction] 93 % Dr. Michelle Marroquin MD Work Phone: [facility] 08-10-2024 14:49-0400 Systolic blood pressure 120 mm[Hg] Dr. Michelle Marroquin MD Work Phone: [facility] 08-10-2024 14:47-0400 Body height 152.[address] Michelle Marroquin MD Work Phone: [facility] 06-11-2024 13:09-0400 Body temperature 98.2 [degF] Dr. Michelle Marroquin MD Work Phone: [facility] 06-11-2024 13:09-0400 Diastolic blood pressure 56 mm[Hg] Dr. Michelle Marroquin MD Work Phone: [facility] 06-11-2024 13:09-0400 Heart rate 82 /min Dr. Michelle Marroquin MD Work Phone: [facility] 06-11-2024 13:09-0400 Respiratory rate 18 /min Dr. Michelle Marroquin MD Work Phone: [facility] 06-11-2024 13:09-0400 SaO2% (BldA) [Mass fraction] 96 % Dr. Michelle Marroquin MD Work Phone: [facility] 06-11-2024 13:09-0400 Systolic blood pressure 108 mm[Hg] Dr. Michelle Marroquin MD Work Phone: [facility] 05-18-2024 17:06-0400 Body temperature 98.2 [degF] Dr. Michelle Marroquin MD Work Phone: [facility] 05-18-2024 17:06-0400 Diastolic blood pressure 70 mm[Hg] Dr. Michelle Marroquin MD Work Phone: [facility] 05-18-2024 17:06-0400 Heart rate 76 /min Dr. Michelle Marroquin MD Work Phone: [facility] 05-18-2024 17:06-0400 Respiratory rate 14 /min Dr. Michelle Marroquin MD Work Phone: [facility] 05-18-2024 17:06-0400 Systolic blood pressure 110 mm[Hg] Dr. Michelle Marroquin MD Work Phone: [facility] 04-21-2024 13:58-0500 Body height 152.[address] Michelle Marroquin MD Work Phone: [facility] 04-21-2024 13:58-0500 Body temperature 98.4 [degF] Dr. Michelle Marroquin MD Work Phone: [facility] 04-21-2024 13:58-0500 Diastolic blood pressure 64 mm[Hg] Dr. Michelle Marroquin MD Work Phone: [facility] 04-21-2024 13:58-0500 Heart rate 92 /min Dr. Michelle Marroquin MD Work Phone: [facility] 04-21-2024 13:58-0500 Respiratory rate 18 /min Dr. Michelle Marroquin MD Work Phone: [facility] 04-21-2024 13:58-0500 SaO2% (BldA) [Mass fraction] 95 % Dr. Michelle Marroquin MD Work Phone: [facility] 04-21-2024 13:58-0500 Systolic blood pressure 110 mm[Hg] Dr. Michelle Marroquin MD Work Phone: [facility] 04-09-2024 20:32-0500 Body temperature 97.6 [degF] Dr. Michelle Marroquin MD Work Phone: [facility] 04-09-2024 20:32-0500 Heart rate 89 /min Dr. Michelle Marroquin MD Work Phone: [facility] 04-09-2024 20:32-0500 Respiratory rate 16 /min Dr. Michelle Marroquin MD Work Phone: [facility] 04-09-2024 20:32-0500 SaO2% (BldA) [Mass fraction] 95 % Dr. Michelle Marroquin MD Work Phone: [facility] 07-21-2023 09:34-0400 Body temperature 98.1 [degF] [facility] 07-21-2023 09:34-0400 Diastolic blood pressure 79 mm[Hg] [facility] 07-21-2023 09:34-0400 Heart rate 86 /min [facility] 07-21-2023 09:34-0400 Respiratory rate 17 /min [facility] 07-21-2023 09:34-0400 SaO2% (BldA) [Mass fraction] 95 % [facility] 07-21-2023 09:34-0400 Systolic blood pressure 132 mm[Hg] [facility] 07-21-2023 08:18-0400 Body height 152.4 cm [facility] 06-13-2023 08:36-0400 Body temperature 97.9 [degF] [facility] 06-13-2023 08:36-0400 Diastolic blood pressure 82 mm[Hg] [facility] 06-13-2023 08:36-0400 Heart rate 97 /min [facility] 06-13-2023 08:36-0400 Respiratory rate 16 /min [facility] 06-13-2023 08:36-0400 SaO2% (BldA) [Mass fraction] 98 % [facility] 06-13-2023 08:36-0400 Systolic blood pressure 129 mm[Hg] [facility] 06-13-2023 05:51-0400 Body height 152.4 cm [facility] 06-13-2023 05:51-0400 Body mass index (BMI) [Ratio] 28.8 kg/m2 [facility] 06-13-2023 05:51-0400 Body weight 67.1 kg [facility] 08-15-2022 18:20-0400 Diastolic blood pressure 74 mm[Hg] [facility] 08-15-2022 18:20-0400 Heart rate 102 /min [facility] 08-15-2022 18:20-0400 Respiratory rate 20 /min [facility] 08-15-2022 18:20-0400 SaO2% (BldA) [Mass fraction] 95 % [facility] 08-15-2022 18:20-0400 Systolic blood pressure 121 mm[Hg] [facility] 08-15-2022 16:38-0400 Body mass index (BMI) [Ratio] 24.7 kg/m2 [facility] 08-15-2022 16:38-0400 Body weight 57.3 kg [facility] 08-15-2022 16:21-0400 Body height 152.4 cm [facility] 08-15-2022 16:21-0400 Body temperature 97.2 [degF] [facility] 03-21-2022 18:59-0500 Diastolic blood pressure 70 mm[Hg] Dr. Rocky Barlow Work Phone: [facility] 03-21-2022 18:59-0500 Heart rate 97 /min Dr. Rocky Barlow Work Phone: [facility] 03-21-2022 18:59-0500 Respiratory rate 18 /min Dr. Rocky Barlow Work Phone: [facility] 03-21-2022 18:59-0500 SaO2% (BldA) [Mass fraction] 98 % Dr. Rocky Barlow Work Phone: 4([phone])183-888598 [place] [address] 03-21-2022 18:59-0500 Systolic blood pressure 130 mm[Hg] Dr. Rocky Barlow Work Phone: [facility] 03-21-2022 17:46-0500 Body temperature 98.3 [degF] Dr. Rocky Barlow Work Phone: [facility] 03-21-2022 17:42-0500 Body height 154.[address] Rocky Barlow Work Phone: [facility] 03-21-2022 17:42-0500 Body mass index (BMI) [Ratio] 24.5 kg/m2 Dr. Rocky Barlow Work Phone: [facility] 03-21-2022 17:42-0500 Body weight [address] Rocky Barlow Work Phone: [facility] 01-21-2022 14:13-0500 Body temperature 98.8 [degF] Dr. Rocky Barlow Work Phone: [facility] 01-21-2022 14:13-0500 Diastolic blood pressure 76 mm[Hg] Dr. Rocky Barlow Work Phone: [facility] 01-21-2022 14:13-0500 Heart rate 86 /min Dr. Rocky Barlow Work Phone: [facility] 01-21-2022 14:13-0500 Respiratory rate 14 /min Dr. Rocky Barlow Work Phone: [facility] 01-21-2022 14:13-0500 SaO2% (BldA) [Mass fraction] 98 % Dr. Rocky Barlow Work Phone: [facility] 01-21-2022 14:13-0500 Systolic blood pressure 128 mm[Hg] Dr. Rocky Barlow Work Phone: [facility] 01-03-2022 17:18-0400 Body temperature 98.2 [degF] Dr. Rocky Barlow Work Phone: 5(483)975-797798 [place] [address] 01-03-2022 17:18-0400 Diastolic blood pressure 92 mm[Hg] Dr. Rocky Barlow Work Phone: 7(038)919-790498 [place] [address] 01-03-2022 17:18-0400 Heart rate 94 /min Dr. Rocky Barlow Work Phone: 8(636)[phone] [place] [address] 01-03-2022 17:18-0400 Respiratory rate 20 /min Dr. Rocky Barlow Work Phone: [facility] 01-03-2022 17:18-0400 SaO2% (BldA) [Mass fraction] 95 % Dr. Rocky Barlow Work Phone: 3(432)905-284798 [place] [address] 01-03-2022 17:18-0400 Systolic blood pressure 118 mm[Hg] Dr. Rocky Barlow Work Phone: [facility] 01-03-2022 14:19-0400 Inhaled oxygen flow rate 2 L/min Dr. Rocky Barlow Work Phone: [facility] 01-02-2022 21:40-0400 Body height 152.[address] Rocky Barlow Work Phone: [facility] Work Phone: 01-02-2022 21:40-0400 Body mass index (BMI) [Ratio] 23.2 kg/m2 Dr. Rocky Barlow Work Phone: [facility] 01-02-2022 21:40-0400 Body weight [address] Rocky Barlow Work Phone: [facility] 10-26-2021 07:33-0400 Body temperature 97.2 [degF] Lennox Bulmaro MORTGAGE PROTECTION SPECIALIST.TIME STUDY ENGINEER Work Phone: [facility] 10-26-2021 07:33-0400 Diastolic blood pressure 80 mm[Hg] Lennox Bulmaro MORTGAGE PROTECTION SPECIALIST.TIME STUDY ENGINEER Work Phone: [facility] 10-26-2021 07:33-0400 Heart rate 72 /min Lennox Bulmaro MORTGAGE PROTECTION SPECIALIST.TIME STUDY ENGINEER Work Phone: [facility] 10-26-2021 07:33-0400 Respiratory rate 16 /min Lennox Bulmaro MORTGAGE PROTECTION SPECIALIST.TIME STUDY ENGINEER Work Phone: [facility] 10-26-2021 07:33-0400 SaO2% (BldA) [Mass fraction] 98 % Lennox Bulmaro MORTGAGE PROTECTION SPECIALIST.TIME STUDY ENGINEER Work Phone: [facility] 10-26-2021 07:33-0400 Systolic blood pressure 126 mm[Hg] Lennox Bulmaro MORTGAGE PROTECTION SPECIALIST.TIME STUDY ENGINEER Work Phone: [facility] Encounters Encounter Date Encounter Type Care Provider Facility Start: 09-21-2024 End: 09-21-2024 Patient encounter procedure Brigitte Warner [facility] Work Phone: Start: 09-21-2024 End: 09-21-2024 ambulatory Brigitte Warner [place] [place] Start: 09-07-2024 Non-patient / Non-visit Dr. Jeni Ann DO [facility] Work Phone: Start: 09-06-2024 Non-patient / [facility] Start: 09-06-2024 Non-patient / Non-visit Dr. Jein [facility] Work Phone: Start: 09-06-2024 End: 09-06-2024 ambulatory Michelle Marroquin [place] [place] Start: 09-06-2024 End: 09-06-2024 Non-patient / Non-visit Dr. Panfilo Reese MD -[facility] Work Phone: Start: 09-05-2024 ambulatory Michelle Ward ty:[facility] Start: 09-05-2024 End: 09-07-2024 Evaluation and management of inpatient Dr. Jeni Ann DO -Medical Surgical 3 Work Phone: Start: 08-26-2024 End: 08-26-2024 Office outpatient visit 15 minutes Haja Coley MD Work Phone: [facility] Comment on above: Nausea and vomiting, unspecified vomiting type (Primary Dx) Start: 08-26-2024 End: 08-26-2024 ambulatory ROCKY BARLOW Facility:[facility] Start: 08-10-2024 End: 08-10-2024 Patient encounter procedure Christ Aguirre [facility] Work Phone: Start: 08-10-2024 End: 08-10-[address] Michelle Marroquin MD Work Phone: [facility] Work Phone: Start: 06-11-2024 End: 06-11-[address] Michelle Marroquin MD -[facility] Work Phone: Start: 06-11-2024 End: 06-11-[address] Michelle Marroquin MD [facility] Start: 06-11-2024 End: 06-11-[address] Michelle Marroquin MD Work Phone: [facility] Work Phone: Start: 06-11-2024 End: 06-11-2024 ambulatory Michelle Marroquin Facility:[facility] Start: 05-18-2024 End: 05-18-2024 Patient encounter procedure Christ Aguirre [facility] Work Phone: Start: 05-18-2024 End: 05-18-2024 ambulatory [facility] Randhawae Facility:[facility] Start: 04-21-2024 End: 04-21-[address] Michelle Marroquin MD -[facility] Work Phone: Start: 04-21-2024 End: 04-21-2024 ambulatory [facility]ae Facility:[facility] Start: 04-21-2024 End: 04-21-2024 ambulatory Efewgrandviewbe Olee Facility:[facility] Start: 04-09-2024 End: 04-09-2024 Emergency department patient visit Dr. Gregory Coleman MD -Emergency Department Work Phone: Start: 12-21-2023 End: 12-21-2023 Emergency department patient visit Maximiliano Patricemitzi Facility:[facility] Start: 12-12-2023 End: 12-12-2023 [facility] Start: 10-08-2023 End: 10-08-2023 [facility] Start: 10-08-2023 End: 10-08-2023 ambulatory Efewongbe Olerichiee Facility:[facility] Start: 09-23-2023 End: 09-23-2023 Emergency department patient visit Gregory Coleman Facility:[facility] Start: 07-31-[address] Michelle Marroquin MD Work Phone: [facility] Start: 07-21-2023 End: 07-21-2023 Emergency department patient visit [facility] Work Phone: Start: 06-19-2023 End: 06-19-2023 ambulatory [facility] Work Phone: Start: 06-19-2023 End: 06-19-2023 Patient encounter procedure [facility], Phy Office 3rd Flr Start: 06-13-2023 End: 06-13-2023 Emergency department patient visit [facility] Work Phone: Start: 02-05-2023 End: 02-05-2023 ambulatory [facility] Work Phone: Start: 02-05-2023 End: 02-05-2023 [facility] Start: 01-01-2023 End: 01-01-2023 ambulatory [facility] Work Phone: Start: 01-01-2023 End: 01-01-2023 [facility] Work Phone: Start: 12-12-2022 End: 12-12-2022 [facility] Start: 12-11-2022 End: 12-11-2022 [facility] Start: 12-03-2022 End: 12-03-2022 ambulatory [facility] Work Phone: Start: 12-03-2022 End: 12-03-2022 [facility] Start: 08-15-2022 End: 08-15-2022 Emergency department patient visit [facility] Work Phone: Start: 05-30-2022 End: 05-30-2022 ambulatory [facility] Work Phone: Start: 05-30-2022 End: 05-30-2022 [facility] Start: 03-29-2022 End: 03-29-[address] Rocky Barlow Work Phone: [facility] Work Phone: Start: 03-29-2022 End: 03-29-[address] Rocky Barlow Work Phone: [facility]/Neurology Start: 03-21-2022 End: 03-21-2022 Emergency department patient visit Dr. Rocky Barlow Work Phone: [facility]-Emergency Department Start: 01-21-2022 End: 01-21-[address] Rocky Barlow Work Phone: [facility] Start: 01-03-2022 Non-patient / Non-visit Dr. Rocky Barlow Work Phone: [facility] Start: 01-02-2022 Non-patient / Non-visit Dr. Rocky Barlow Work Phone: [facility] Start: 01-02-2022 End: 01-03-2022 Evaluation and management of inpatient Dr. Rocky Barlow Work Phone: [facility]-Medical Surgical 3 Start: 01-02-2022 End: 01-03-[address] Rocky Barlow Work Phone: [facility] Work Phone: Start: 12-31-2021 End: 12-31-[address] Rocky Barlow Work Phone: [facility] Work Phone: Start: 12-31-2021 End: 12-31-[address] Rocky Barlow Work Phone: [facility], [facility] Start: 11-30-2021 End: 11-30-2021 ambulatory [facility] Work Phone: Start: 11-30-2021 End: 11-30-2021 Patient encounter procedure [facility]Ne[facility]rology Start: 11-28-2021 End: 11-28-2021 ambulatory [facility] Work Phone: Start: 11-28-2021 End: 11-28-2021 Patient encounter procedure [facility], Phy Office 3rd Flr Start: 10-27-2021 Telephone encounter Melba Campoverde APRN.CNP Work Phone: [facility] Comment on above: Results, Lab; Result s Results Start: 10-26-2021 End: 10-26-2021 Patient encounter procedure Kathya Eric MORTGAGE PROTECTION SPECIALIST.CNM Work Phone: OB/Gynecology Comment on above: Vaginal itching (Simona ahsan Dx); Vaginal burning; Vaginal odor; Vaginal discharge Start: 10-26-2021 End: 10-26-2021 Patient encounter procedure Lennox Chamberlain MORTGAGE PROTECTION SPECIALIST.TIME STUDY ENGINEER Work Phone: [facility] Comment on above: Burning with urinati on (Primary Dx); Wheeze; Chronic cough Start: 07-27-2021 End: 07-27-2021 Patient encounter procedure [facility], Specimen Start: 07-26-2021 End: 07-26-2021 Patient encounter procedure [facility], Phy Office 3rd Flr Start: 07-09-2021 End: 07-09-2021 Patient encounter procedure [facility], [facility] Start: 06-06-2021 End: 06-06-2021 Patient encounter procedure [facility] Start: 05-30-2021 End: 05-30-2021 Patient encounter procedure [facility], [facility] Start: 04-25-2021 End: 04-25-2021 [facility] Start: 01-12-2018 End: 01-12-2018 Patient encounter procedure [facility] Start: 12-09-2017 Patient encounter procedure [facility] Start: 11-07-2016 Evaluation and management of inpatient Yang Abrams Facility:[facility] Start: 10-29-2016 Ambulatory Yang Abrams Facility: [facility] Procedures Date Procedure Procedure Detail Performing Clinician Start: 09-07-[address] Kermit Marroquin MD Work Phone: Start: 09-06-[address] Michelle Marroquin MD Work Phone: Start: 09-06-2024 Serum inorganic phosphate measurement Dr. Michelle Marroquin MD Work Phone: Start: 06-11-2024 Vitamin D, 25-hydroxy measurement Dr. Leigha Marroquin MD Work Phone: Comment on above: Vitamin D StatusDeficiency: <20 ng/mL (5 0nmol/L)Insufficiency: 20-30 ng/mL (50-75 nmol/L)Sufficiency: 30-100 ng/mL (75-250 nmol/L)Toxicity: >100 ng/mL (>250 nmol/L) Start: 04-21-2024 Measurement of renal function Dr. Joslyn Marroquin MD Work Phone: Comment on above: GFR Calc Start: 04-21-2024 SARS-CoV-2, Influenza & RSV (PCR) Dr. Leigha Marroquin MD Work Phone: Start: 04-09-2024 SARS-CoV-2, Influenza & RSV (PCR) Dr. Leigha Marroquin MD Work Phone: Start: 04-09-2024 Streptococcus pyogenes rRNA assay Dr. Leigha Marroquin MD Work Phone: Start: 07-21-2023 Plain chest X-ray Start: 06-13-2023 Diagnostic radiography of abdomen Start: 02-05-2023 Coronavirus COVID-19 PCR Start: 02-05-2023 Influenza Types A,B Direct FA (DENY) Start: 02-05-2023 Respiratory syncytial virus antigen assay Start: 01-01-2023 [facility] Start: 12-12-2022 Coronavirus COVID-19 PCR Start: 12-12-2022 Influenza Types A,B Direct FA (DENY) Start: 12-12-2022 Respiratory syncytial virus antigen assay Start: 12-11-2022 Plain chest X-ray Start: 08-15-2022 Plain chest X-ray Start: 08-15-2022 Bacteria identified in Blood by Culture Start: 08-15-2022 SARS-CoV-2 & FLU Antigen (Rapid) Start: 03-21-2022 Plain chest X-ray Dr. Rocky Barlow Work Phone: Start: 01-02-2022 Plain chest X-ray Dr. Rocky Barlow Work Phone: Start: 12-31-2021 Plain chest X-ray Dr. Rocky Barlow Work Phone: Start: 10-26-2021 BACTERIAL VAGINOSIS AMPLIFICATION Mohsen Eric MORTGAGE PROTECTION SPECIALIST.CNM Work Phone: Start: 10-26-2021 Iadna trichomonas vaginalis amplified probe tech Kathya Eric APRN.CNM Work Phone: Start: 10-26-2021 Urnls dip stick/tablet rgnt auto w/o microscopy Lenonx Chamberlain APRN.TIME STUDY ENGINEER Work Phone: Start: 07-27-2021 Urine culture Start: 07-09-2021 X-ray of both feet Start: 05-30-2021 X-ray of both feet Start: 04-25-2021 X-ray of chest posteroanterior view Start: 03-17-2019 H/O: surgery S/P deep brain stimulator placement Lennox Chamberlain APRN.TIME STUDY ENGINEER Work Phone: Start: 10-28-2012 Lipid 1996 panel - Serum or Plasma Haja Coley MD Work Phone: Start: 09-03-2012 Mammography Lennox Chamberlain APRN.TIME STUDY ENGINEER Work Phone: Influenza Types A,B Direct FA (DENY) Influenza Types A,B Direct FA (DENY) Dr. Rocky Barlow Work Phone: Influenza Types A,B Direct FA (DENY) Dr. Rocky Barlow Work Phone: Respiratory syncytia l virus antigen assay Respiratory syncytia l virus antigen assay Dr. Rocky Barlow Work Phone: Respiratory syncytia l virus antigen assay Dr. Rocky Barlow Work Phone: SARS-CoV-2 & FLU Antigen (Rapid) Dr. Rocky Barlow Work Phone: Plan of Treatment Date Care Activity Detail Author Start: 04-08-2025 Screening for malign ant neoplasm of colon [facility] Start: 09-07-2024 Patient discharge [facility] Start: 09-06-2024 Referral to occupati onal therapist [facility] Start: 09-06-2024 Referral to service [facility] Start: 09-05-2024 Application of intermittent pneumatic compression device [facility] Start: 09-05-2024 Following clinical p athway protocol [facility] Start: 09-05-2024 Ambulation without limitation [facility] Start: 09-05-2024 Assessment of risk o f venous thromboembolism [facility] Start: 09-05-2024 Catheterization of vein [facility] Start: 09-05-2024 Documentation procedure [facility] Start: 09-05-2024 Insertion of cathete r into peripheral vein [facility] Start: 09-05-2024 Measuring intake and output [facility] Start: 09-05-2024 Oxygen therapy [facility] Start: 09-05-2024 Providing care accor ding to standard [facility] Start: 09-05-2024 Referral to gastroenterology service [facility] Start: 09-05-2024 Referral to service [facility] Start: 09-05-2024 [facility] Start: 09-05-2024 Verification routine [facility] Start: 09-05-2024 Admission procedure [facility] Start: 09-05-2024 Hospital admission, emergency, from emergency room, medical nature [facility] Start: 09-05-2024 Partial thromboplast in time, activated [facility] Start: 09-05-2024 Prothrombin time [facility] Start: 09-05-2024 Patient referral to dietitian [facility] Start: 04-09-2024 [facility] Start: 03-10-2024 Medicare Advantage A nnual Wellness Visit Medicare Advantage Annual Wellness Visit [facility] Start: 11-09-2023 Covid-19 Vaccine ( season) Covid-19 Vaccine ( season) [facility] Start: 07-21-2023 [facility] Start: 06-13-2023 [facility] Start: 01-03-2022 Patient discharge [facility] Start: 01-02-2022 Following clinical p athway protocol [facility] Start: 01-02-2022 Assessment of risk o f venous thromboembolism [facility] Start: 01-02-2022 Inhalation therapy procedure [facility] Start: 01-02-2022 Insertion of cathete r into peripheral vein [facility] Start: 01-02-2022 Oxygen therapy [facility] Start: 01-02-2022 Providing care accor ding to standard [facility] Start: 01-02-2022 Provision of activit y privileges [facility] Start: 01-02-2022 Referral to occupati onal therapist [facility] Start: 01-02-2022 Referral to service [facility] Start: 01-02-2022 Respiratory secretio n precautions [facility] Start: 01-02-2022 [facility] Start: 01-02-2022 Admission procedure [facility] Start: 11-08-2021 Influenza vaccination INFLUENZA (#1) [facility] Start: 03-12-2021 COVID-19 VACCINE (2 - Moderna series) COVID-19 VACCINE (2 - Moderna series) [facility] Start: 09-13-2019 PAP TESTING PAP TESTING [facility] Start: 10-28-2017 Lipid panel Lipid Screening [facility] Start: 10-28-2017 LIPID SCREEN LIPID SCREEN [facility] Start: 09-12-2017 Screening for malign ant neoplasm of cervix Cervical Cancer Screening [facility] Start: 09-03-2013 Mammography MAMMOGRAM [facility] Start: 09-03-2013 Screening for malign ant neoplasm of breast Mammogram Screening [facility] Start: 01-23-2013 DIABETES SCREEN DIABETES SCREEN [facility] Start: 01-23-2013 Diabetes Screening Diabetes Screenin g [facility] Start: 07-05-2011 Pneumococcal Vaccine : 50+ (1 of 1 - PCV) Pneumococcal Vaccine: 50+ (1 of 1 - PCV) [facility] Start: 07-05-2011 SHINGRIX VACCINE (1 of 2) GRAY GRIX VACCINE (1 of 2) [facility] Start: 2006 COLOGUARD (FIT-DNA) COLOGUARD (FIT-D NA) [facility] Start: 2006 Colonoscopy COLONOSCOPY [facility] Start: 2006 COLORECTAL CANCER SCREENING COLORECTAL CANCER SCREENING [facility] Start: [address] COLONOGRAPHY [facility] Start: 2006 FECAL OCCULT BLOOD FECAL OCCULT BLOO D [facility] Start: 2006 Screening for malign ant neoplasm of colon [facility] Start: 2006 SIGMOIDOSCOPY SIGMOIDOSCOPY [facility] Start: 12-10-1995 Urine microalbumin profile [facility] Start: 07-05-1991 HPV TESTING HPV TESTING [facility] Start: 07-05-1979 ANNUAL PCP TEAM PAINTER AND BODY WORK TRESSA DISEASE VISIT ANNUAL PCP TEAM CHRONIC DISEASE VISIT [facility] Start: 07-05-1979 Anxiety Screening Anxiety Screening [facility] Start: 07-05-1979 HEPATITIS C SCREENING HEPATITIS C [facility] Start: 07-05-1979 Hepatitis C screening Hepatitis C [facility] Start: 07-05-1979 HIV SCREENING HIV SCREENING [facility] Start: 07-05-1979 HIV screening HIV Screening [facility] Bacteria identified in Urine by Culture URINE CULTURE Microbiology Routine Burning with urination Ordered: 10/26/2021 [facility] Work Phone: Comment on above: Ordered: 10/26/2021 CBC W Auto Different ial panel - Blood [facility] Influenza virus A an d B RNA and SARS-CoV-2 (COVID-19) N gene panel - Respiratory specimen by WILLIAM with probe detection COVID WITH FLUA+B, ROUTINE Microbiology Routine Wheeze Chronic cough Ordered: 10/26/2021 [facility] Work Phone: Comment on above: Ordered: 10/26/2021 INR in Blood by Coagulation assay [facility] Patient Education [facility] Work Phone: Patient referral [facility] Work Phone: XR Chest PA and Lateral [facility] Immunizations Immunization Date Immunization Notes Care Provider Fa alexandr 12-12-2023 influenza, injectabl e, madin suraj canine kidney, preservative free Dr. Michelle Marroquin MD Work Phone: [facility] 11-27-2021 Influenza, high dose seasonal Dr. Michelle Marroquin MD Work Phone: [facility] 11-27-2021 influenza, high dose seasonal, preservative-free Dr. Rocky Barlow Work Phone: [facility] 03-10-2021 Covid (Moderna) Dr. Rocky Barlow Work Phone: [facility] 02-12-2021 Covid (Moderna) Dr. Rocky Barlow Work Phone: [facility] 12-27-2016 Influenza virus vaccine [facility] 10-16-2010 tuberculin skin test ; purified protein derivative solution, intradermal Haja Coley MD Work Phone: [facility] 01-16-2010 influenza virus vaccine, unspecified formulation Lennox Chamberlain APRN.TIME STUDY ENGINEER Work Phone: [facility] Work Phone: 03-29-2009 novel [id number], all formulations Lennox Chamberlain MORTGAGE PROTECTION SPECIALIST.TIME STUDY ENGINEER Work Phone: [facility] Work Phone: 12-29-2008 influenza virus vaccine, unspecified formulation Lennox Chamberlain MORTGAGE PROTECTION SPECIALIST.TIME STUDY ENGINEER Work Phone: [facility] Work Phone: 01-14-2008 influenza virus vaccine, unspecified formulation Lennox Chamberlain MORTGAGE PROTECTION SPECIALIST.TIME STUDY ENGINEER Work Phone: [facility] Work Phone: 01-13-2007 influenza virus vaccine, unspecified formulation Lennox Chamberlain MORTGAGE PROTECTION SPECIALIST.TIME STUDY ENGINEER Work Phone: [facility] Work Phone: 01-08-2003 influenza virus vaccine, whole virus Lennox Chamberlain APRN.TIME STUDY ENGINEER Work Phone: [facility] Work Phone: 12-09-1995 tetanus and diphther ia toxoids, adsorbed, preservative free, for adult use (2 Lf of tetanus toxoid and 2 Lf of diphtheria toxoid) Lennox Chamberlain APRN.TIME STUDY ENGINEER Work Phone: [facility] Work Phone: Payers Date Payer Category Payer Medicare (Managed Care) CABRERA MCCRACKEN O [id number] 2023 Self-pay [id number] 2023 Unknown [id number] 2017 Medicaid [id number] 2017 Medicaid [id number] 1981 Medicare [id number] 1981 Medicare [id number] 1981 Medicare MEDICARE MEDICAR E A AND B [id number] 1981-Present [phone] [place] [address] Medicare [id number] Unknown [id number]. 462 Unknown [id number]. 462 Unknown [id number] [id number]. 462 Unknown [id number] 2.16840.1.719109.3.579.2. 462 Unknown [id number] 2.16.840.1.913466.3.579.2. 462 Unknown [id number] 2.16.840.1.284276.3.579.2. 462 Unknown [id number] 2.16.840.1.311199.3.579.2. 462 Unknown [id number] 2.16.840.1.511589.3.579.2. 462 Unknown [id number] 2.16.840.1.815891.3.579.2. 462 Unknown [id number] 2.16.840.1.915364.3.579.2. 462 Unknown [id number] 2.16.840.1.364902.3.579.2. 462 Unknown [id number] 2.16.840.1.564317.3.579.2. 462 Unknown [id number] 2.16.840.1.671786.3.579.2. 462 Unknown [id number] 2.16.840.1.511306.3.579.2. 462 Unknown [id number] 2.16.840.1.177371.3.579.2. 462 Unknown [id number] 2.16.840.1.536679.3.579.2. 462 Unknown [id number] 2.16.840.1.563509.3.579.2. 462 Unknown [id number] [id number]. 462 Unknown [id number] [id number]. 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 of alcohol (finding) [facility] Start: 1960 Sex Assigned At Not on file C [facility] Start: 10-16-2021 End: 10-26-2021 Exposure to SARS-CoV-2 (event) Not sure [facility] Work Phone: Start: 06-15-2024 Sex Female (finding) [facility] Start: 05-22-2020 End: 04-05-2022 History of Social function [facility] Start: 05-22-2020 End: 04-05-2022 Tobacco use panel [facility] Work Phone: National Score (1-100), lower number is lower risk 68 [facility] Medical Equipment Procedure Code Equipment Code Equipment Origin al Text Equipment Identifier Dates Lens Iol 0d +24 Manuel Uv Abs - [id number] Start: 03-22-2019 Lens Acrysof Ultrasert +24.5 Diopter Acrylic Iol 1 Piece Foldable Uv Blue - [id number] Start: 11-22-2019 Comment on above: Description: -1.05 Goals Date Patient Goal Desired Activity /State Functional Status Date Assessment Result Facility 09-07-2024 Functional status Activity Ability Bedres t [facility] Work Phone: 01-03-2022 Functional status Bedrest [facility] Work Phone: 09-30-2014 Are you deaf, or do you have serious difficulty hearing No 09/30/2014 9:29 AM Lakshmi Moreno RN No [facility] Work Phone: 09-30-2014 Are you blind, or do you have serious difficulty seeing, even when wearing glasses No 09/30/2014 9:29 AM Lakshmi Moreno RN No [facility] 09-30-2014 Do you have serious difficulty walking or climbing stairs Yes 09/30/2014 9:29 AM Lakshmi Moreno RN Yes [facility] 09-30-2014 Do you have difficul ty dressing or bathing Yes 09/30/2014 9:29 AM Lakshmi Moreno RN Yes [facility] 09-30-2014 Because of a physica l, mental, or emotional condition, do you have difficulty doing errands alone such as visiting a physician's office or shopping Yes 09/30/2014 9:29 AM Lakshmi Moreno RN Yes [facility] Mental Status Date Assessment Result Facility 09-07-2024 Cognitive function Voice/Name [facility] Work Phone: 09-07-2024 Cognitive function Appropriate;Cooperativ e [facility] Work Phone: 06-13-2023 Cognitive function Level Of Cons ciousness Awake [facility] Work Phone: 01-03-2022 Cognitive function Appropriate [facility] Work Phone: 09-12-2014 Because of a physica l, mental, or emotional condition, do you have serious difficulty concentrating, remembering, or making decisions No 09/12/2014 8:23 AM April Sanchez MA No [facility] Clinical Notes 10-26-2021 to 09-07-2024 Note Date & Type Note Facility 09-07-2024 Discharge summary Note Date/Time September 07, 2024 1:13pm [facility] Medical Records Department [address] [place] [id number] Discharge Summary 09/07/24 1300 MR#: [id number] Acct: [id number] Name: TONYA FLETCHER Rep #:[id number] 26 : 1960 64 From: Jeni Ann DO PCP: Dr. Michelle Marroquin MD Status:A DM IN Location: MS3 [id number] Providers Date of Admission: 09/05/24 Date of Discharge: 09/07/24 Primary Care Physician: Dr. Michelle Marroquin MD Consultations 09/05/24 14:12 Consult: Gastroenterology Routine Consulting Provider: [facility] Reason for Consult: GI bleed EMERGENT Consult: No MD Notified: Yes Date Notified: 09/05/24 Time Notified: 13:40 Method of Notification: Text Reason For Visit: HEMETEMSIS Diagnosis Discharge Diagnosis (1) Hematemesis: Status: Acute Code(s): K92.0 - Hematemesis Medications at Discharge Home Medications loratadine 10 mg tablet 10 mg PO DAILY@0800 ALLERGIES 09/10/14 mirtazapine 7.5 mg tablet 7.5 mg PO QHS@1999 DEPRESSION 05/19/17 azelastine 0.05 % eye drops 0.05 drp EACH EYE BID@0800,1999 DRY EYES 08/08/18 apixaban 5 mg tablet 5 mg PO BID BLOOD THINNER 11/23/18 Held on 09/07/24. Instructions: Resume on 09/10/24. ascorbic acid (vitamin C) 500 mg tablet 500 mg PO DAILY@0800 SUPPLEMENT 01/02/22 carboxymethylcellulose sodium 0.5 % eye drops (Refresh Tears) 1 drp EACH EYE TID1 cholecalciferol (vitamin D3) 25 mcg (1,000 unit) chewable tablet (Vitamin D3) 25mcg PO DAILY@0800 SUPPLEMENT 01/02/22 ferrous gluconate 324 mg (38 mg iron) tablet 324 mg PO DAILY@0800 SUPPLEMENT 01/02/22 levothyroxine 50 mcg tablet 50 mcg PO DAILY@0600 THYROID 01/02/22 ondansetron 4 mg disintegrating tablet 4 mg PO TID PRN nausea and vomiting #21 tabs 06/13/23 GENERAL PROTECTION LOTION 1 dose topical 4X/DAY PRN skin protection 07/31/23 acetaminophen 160 mg/5 mL oral elixir 500 mg PO Q6H PRN fever or pain 07/31/23 bisacodyl 10 mg/30 mL enema (Fleet Bisacodyl) 5 mg ID DAILY PRN constipation 07/31/23 bismuth subsalicylate 525 mg/15 mL oral suspension (Pepto-Bismol Max St) 1,050 mg PO .4X DAILY PRN diarrhea 07/31/23 carboxymethylcellulose sodium 0.5 % eye drops (Refresh Tears) 1 drp ophthalmic (eye) 4-6XD PRN dry eye(s) 07/31/23 citalopram 10 mg tablet 10 mg PO DAILY 07/31/23 citalopram 20 mg tablet 20 mg PO DAILY 07/31/23 ipratropium 0.5 mg-albuterol 3 mg (2.5 mg base)/3 mL nebulization soln 3 ml inhalation Q4H PRN shortness of breath or wheezing 07/31/23 terbinafine HCl 1 % topical cream 1 applic topical BID PRN redness irrit 10/08/23 docusate sodium 100 mg capsule 100 mg PO Q OTHER DAY #15 caps 07/03/24 pantoprazole 40 mg tablet,delayed release 40 mg PO BID #60 tabs 09/07/24 Hospital Course Procedures EGD Summary of Care Provided Minutes Spent on Discharge: 38 Hospital Course: TONYA FLETCHER, is a 64 F who has a history of MRDD and is nonverbal at baselineand presented to the emergency department at [facility] on 09/05/2024 with caregivers. Evidently, about a week ago they thought she might of had a dark emesis. They saw her primary care physician but she did not have labs done at that time. Today she had another episode that looked black so theybrought her to the emergency department. She is anticoagulated baseline for home with Eliquis for history of pulmonary embolus. History is limited as patient cannot participate in giving any review of systems. Vital signs on presentation showed temperature of 96.0, heart rate 84, respiratory 16, blood pressure was 119/71 and pulse ox 90% room air. CBC showed a leukocytosis white count of 12.1 and a hemoglobin of 13.9 with a normal platelet count. Coags werenormal. Chemistry panel was unremarkable other than mild hyperglycemia with a glucose of 105 that is nonfasting. Liver functions are normal. The initial planwas to recheck her hemoglobin at noon which we did. If there was a drop we are going to admit her if she was stable regarding discharge sure. Unfortunately her hemoglobin dropped about a gram and a half without being given any IV fluidsso there was no concern for hemodilution with IV fluids. Given his drop in her chronic ongoing use of Eliquis for PE we elected to admit her. She was given 1 dose of Protonix in the emergency department and then admitted to the medical floor with twice daily Protonix 40 mg. We followed her hemoglobin which remained relatively stable throughout her hospital course after the initial dropand gastroenterology was consulted. She was taken for EGD on 09/06/2024. EGD showed grade D erosive esophagitis with no bleeding, esophageal mucosal changes consistent with long segment Arias's which was biopsied and a large hiatal hernia. Full liquid diet was reinitiated. We transition to a soft diet and I have instructed her family to start with soft diet for the next 24 to 48 hours and then progressively normalize her diet per her previous prior to admission. Hemoglobin at the time of discharge was stable at 12.9. Biopsies are pending atthe time of discharge. Patient is to follow-up with Dr. Kuhn and this appointment was scheduled and given to her on her discharge paperwork prior to discharge. We will discontinue her omeprazole and start Protonix 40 mg p.o. twice daily. She was written for a month supply with [address] Kuhn will decide ongoing PPI therapy after he follows up with her. She also follow-up with her primary care physician in the next 1 to 2 weeks for hospital follow-up. We were going to hold her Eliquis until Friday at which time she canrestart which is 09/10/2024. Discharge diagnoses: Hematemesis Severe esophagitis Long segment Arias's Nausea and vomiting Leukocytosis History of PE GERD Hypothyroidism Seasonal allergies CP Depression Chronic debility Physical Exam Const alert, no apparent distress, average body habitus and well nourished Constitutional Narrative: Older, white female, sitting up in bed, appears comfortable, nontoxic, caregiverat bedside General Appearance: cooperative, comfortable, well kempt and well developed Exam Limitations: language barrier and physical limitations HEENT normocephalic, head/scalp atraumatic and moist oral mucous membranes HEENT Narrative: Dentition is poor, Mallampati is 2, no thrush Eyes conjunctivae normal Eyes Narrative: No scleral icterus Neck supple Neck Narrative: Trachea midline, no thyroid enlargement Resp normal respiratory effort, no retractions, no use of accessory muscles and clearto auscultation bilaterally Auscultation: Negative for rales, rhonchi or wheezes Cardio regular rate, regular rhythm, S1 normal heart sound, S2 normal heart sound, no murmurs, no rub, no gallops and no clicks GI normal to inspection, nondistended, normoactive bowel sounds, soft to palpation and non-tender Extremity no clubbing, cyanosis or edema Extremity Narrative: Extremities upper and lower extremities are contracted with no significant edema, pedal pulses are 2+, radial pulses are 2+ Skin skin turgor normal, no jaundice, no petechiae and no mottling Neuro Neuro Narrative: Is able to move all 4 extremities but limited due to contractures, patient is wheelchair-bound at baseline, nonverbal baseline, follows commands and does interact Speech: Negative for speech normal Psych Psych Narrative: Calm Weight / BMI Weight Weight: 63.684 kg Body Mass Index (BMI) 27.6 ABG / Lab / Microbiology Data 09/07/24 12:40 09/07/24 06:33 Laboratory: Laboratory Results - last 24 hr 09/07/24 06:33: WBC 6.6, RBC 3.68 L, Hgb 11.7 L, Hct 35.5 L, MCV 96.5, MCH 31.8,MCHC 33.0, RDW Std Deviation 49.5 H, RDW Coeff of Handy 13.9, Plt Count 249, MPV 10.9, Sodium 140, Potassium 3.9, Chloride 107, Carbon Dioxide 24.0, Anion Gap 9,BUN 7, Creatinine 0.47 L, Estim Creat Clear Calc 101.08, Est GFR (MDRD) Non-Af 107, BUN/Creatinine Ratio 14.1, Glucose 107 H, Calcium 8.3 09/07/24 10:30: Hgb Cancelled 09/07/24 12:40: Hgb 12.9 D/C Instructions Discharge Diet: Light diet - advance as tolerated (Recommend starting with soft foods for the next 24 to 48 hours and then progressing as slowly to her regular diet) Discharge Activity: Return to Normal Activity DC O2, CPAP, BIPAP Needs Home O2 Discharge instructions: No DC home with Oxygen: No Meaningful Use Info Meaningful Use Meaningful Use Diagnoses (Choose all that apply): None applicable Ischemic Stroke Statin Dosing Therapy Reference: STATIN DOSE THERAPY REFERENCE: * Patients > 75 years receive moderate or high dose statin therapy. * Patients 75 years or YOUNGER should receive HIGH intensity statin dose unless contraindicated. You will be required to document reason for non-treatment if statin daily dose does not meet guidelines. HIGH DOSE STATIN THERAPY DAILY Atorvastatin > than or = to 40 mg Rosuvastatin > than or = to 20 mg Amlodipine + Atorvastatin > than or = to 2.5/40 mg Ezetimibe + Simvastatin 10/80 mg Simvastatin 80mg Discharge Plan Admission Admit Date/Time: 09/05/24 13:38 Primary Reason for Your Visit: Hematemesis Attending Provider: Jeni Ann Primary Care Provider: Michelle Marroquin Discharge Orders/Prescriptions Prescriptions: New pantoprazole 40 mg Tablet,Delayed Release (Dr/Ec) 40 mg PO BID Qty: 60 2RF Continued citalopram 20 mg tablet 20 mg PO DAILY Rx Instructions: TAKE WITH 10 MG TAB TO = 30 MG DAILY citalopram 10 mg tablet 10 mg PO DAILY Rx Instructions: TAKE WITH 20 MG TAB TO =30 MG DAILY ipratropium-albuterol 0.5 mg-3 mg(2.5 mg base)/3 mL solution for nebulization 3 ml inhalation Q4H PRN (Reason: shortness of breath or wheezing) Pepto-Bismol Max St 525 mg/15 mL suspension 1,050 mg PO .4X DAILY PRN (Reason: diarrhea) Rx Instructions: FOR UPSET STOMACH; do not exceed 8 doses in a 24 hour period acetaminophen 160 mg/5 mL elixir 500 mg PO Q6H PRN (Reason: fever or pain) Rx Instructions: PAIN OR FEVER>100.1 GENERAL PROTECTION LOTION 1 dose topical 4X/DAY PRN (Reason: skin protection) Rx Instructions: APPLY BEFORE SUN EXPOSURE AND REAPPLY NECESSARY Fleet Bisacodyl 10 mg/30 mL enema 5 mg ID DAILY PRN (Reason: constipation) Rx Instructions: ON DAY FIVE WITHOUT A BOWEL MOVEMENT carboxymethylcellulose sodium [Refresh Tears] 0.5 % drops 1 drp ophthalmic (eye) 4-6XD PRN (Reason: dry eye(s)) Rx Instructions: COMPLAINT OF DRY EYES terbinafine HCl 1 % cream 1 applic topical BID PRN (Reason: redness irrit) Rx Instructions: APPLY UNDER BREAST OR IN SKIN FOLDS FOR REDNESS loratadine 10 MG tablet 10 mg PO DAILY@0800 mirtazapine 7.5 MG tablet 7.5 mg PO QHS@1999 azelastine 6 ML drops 0.05 drp EACH EYE BID@0800,2000 Patient Comments: PLACE (1) DROP INTO EACH EYE TWICE DAILY NEEDEDFOR DRY EYE levothyroxine 50 mcg tablet 50 mcg PO DAILY@0600 cholecalciferol (vitamin D3) [Vitamin D3] 25 mcg (1,000 unit) Tablet,Chewable 25 mcg PO DAILY@0800 ascorbic acid (vitamin C) 500 MG tablet 500 mg PO DAILY@0800 ferrous gluconate 324 MG tablet 324 mg PO DAILY@0800 carboxymethylcellulose sodium [Refresh Tears] 0.5 % Drops 1 drp EACH EYE TID ondansetron 4 mg tablet,disintegrating 4 mg PO TID PRN (Reason: nausea and vomiting) Qty: 21 0RF docusate sodium 100 mg capsule 100 mg PO Q OTHER DAY Qty: 15 5RF Held apixaban 5 MG tablet 5 mg PO BID Hold Instructions: Resume on 09/10/24. Discontinued omeprazole 40 mg Capsule,Delayed Release(Dr/Ec) 40 mg PO DAILY@0700 Referrals / Follow Up: Michelle Marroquin MD [Primary Care Provider] - Stalin Kuhn DO [Med Staff - Active Staff] - 09/21/24 1:30 pm (with Claudette Corbett nurse practioner) Disposition Disposition (needs filled in before D/C Order can be placed): Home, Self Care Charges/Coding Visit Charges Inpatient E&M: 12554 Disch Hosp >30min 09/07/24 1313 <Electronically signed by Jeni Ann DO> Cosigner Signature (if applicable): CC: Dr. Michelle Marroquin MD; Dr. Jeni Ann DO; Stalin Kuhn DO~ Signed [facility] Work Phone: 1(846) 124-203007-01-2025 Consult note [facility] Medical Records Department [address] [place] [address] Counseling Note - Pharmacy 09/07/24 1434 MR#: [id number] Acct: [id number] Name: TONYA FLETCHER Rep #:[id number] : 1960 64 From: Peace Flores PCP: Dr. Michelle Marroquin MD Status:A DM IN Y [id number] Med Rec Counseling Pharmacy Service has performed discharge medication reconciliation and counseling for this patient. 1. PANTOPRAZOLE 40MG PO BID 2. STOP OMEPRAZOLE 3. RESUME ELIQUIS 09/10 The patient's discharge medication list was reviewed for discrepancies and discrepancies were resolved. The patient's family was counseled on the following discharge medications and changes in medications for homegoing were reviewed. The Reason for Use, instructions for use, and potential side effects were reviewed for all new medications. The patient's family questions regarding all of their medications were answered. The patient's family was able to verbally demonstrate an understanding of their discharge medications. Medications at Discharge Home Medications loratadine 10 mg tablet 10 mg PO DAILY@0800 ALLERGIES 09/10/14 mirtazapine 7.5 mg tablet 7.5 mg PO QHS@1999 DEPRESSION 05/19/17 azelastine 0.05 % eye drops 0.05 drp EACH EYE BID@0800,1999 DRY EYES 08/08/18 apixaban 5 mg tablet 5 mg PO BID BLOOD THINNER 11/23/18 Held on 09/07/24. Instructions: Resume on 09/10/24. ascorbic acid (vitamin C) 500 mg tablet 500 mg PO DAILY@0800 SUPPLEMENT 01/02/22 carboxymethylcellulose sodium 0.5 % eye drops (Refresh Tears) 1 drp EACH EYE TID1 cholecalciferol (vitamin D3) 25 mcg (1,000 unit) chewable tablet (Vitamin D3) 25mcg PO DAILY@0800 SUPPLEMENT 01/02/22 ferrous gluconate 324 mg (38 mg iron) tablet 324 mg PO DAILY@0800 SUPPLEMENT 01/02/22 levothyroxine 50 mcg tablet 50 mcg PO DAILY@0600 THYROID 01/02/22 ondansetron 4 mg disintegrating tablet 4 mg PO TID PRN nausea and vomiting #21 tabs 06/13/23 GENERAL PROTECTION LOTION 1 dose topical 4X/DAY PRN skin protection 07/31/23 acetaminophen 160 mg/5 mL oral elixir 500 mg PO Q6H PRN fever or pain 07/31/23 bisacodyl 10 mg/30 mL enema (Fleet Bisacodyl) 5 mg ID DAILY PRN constipation 07/31/23 bismuth subsalicylate 525 mg/15 mL oral suspension (Pepto-Bismol Max St) 1,050 mg PO .4X DAILY PRN diarrhea 07/31/23 carboxymethylcellulose sodium 0.5 % eye drops (Refresh Tears) 1 drp ophthalmic (eye) 4-6XD PRN dry eye(s) 07/31/23 citalopram 10 mg tablet 10 mg PO DAILY 07/31/23 citalopram 20 mg tablet 20 mg PO DAILY 07/31/23 ipratropium 0.5 mg-albuterol 3 mg (2.5 mg base)/3 mL nebulization soln 3 ml inhalation Q4H PRN shortness of breath or wheezing 07/31/23 terbinafine HCl 1 % topical cream 1 applic topical BID PRN redness irrit 10/08/23 docusate sodium 100 mg capsule 100 mg PO Q OTHER DAY #15 caps 07/03/24 pantoprazole 40 mg tablet,delayed release 40 mg PO BID #60 tabs 09/07/24 09/07/24 1435 Date _ Peace Valentino Signature (if applicable): Date CC: ~ Signed [facility]07-01-2025 Hospital Discharge instructionsAdditional Instructions Date of Discharge: 09/07/24[facility] Work Phone: 1(405) 945-567607-01-2025 Discharge summary [facility] Medical Records Department [address] [place] [address] Discharge Summary 09/07/24 1300 MR#: [id number] Acct: [id number] Name: TONYA FLETCHER Rep #:[id number] : 1960 64 From: Jeni Ann DO PCP: Dr. Michelle Marroquin MD Status:A DM IN Location: [facility] [id number] Providers Date of Admission: 09/05/24 Date of Discharge: 09/07/24 Primary Care Physician: Dr. Michelle Marroquin MD Consultations 09/05/24 14:12 Consult: Gastroenterology Routine Consulting Provider: [facility] Reason for Consult: GI bleed EMERGENT Consult: No MD Notified: Yes Date Notified: 09/05/24 Time Notified: 13:40 Method of Notification: Text Reason For Visit: HEMETEMSIS Diagnosis Discharge Diagnosis (1) Hematemesis: Status: Acute Code(s): K92.0 - Hematemesis Medications at Discharge Home Medications loratadine 10 mg tablet 10 mg PO DAILY@0800 ALLERGIES 09/10/14 mirtazapine 7.5 mg tablet 7.5 mg PO QHS@1999 DEPRESSION 05/19/17 azelastine 0.05 % eye drops 0.05 drp EACH EYE BID@0800,1999 DRY EYES 08/08/18 apixaban 5 mg tablet 5 mg PO BID BLOOD THINNER 11/23/18 Held on 09/07/24. Instructions: Resume on 09/10/24. ascorbic acid (vitamin C) 500 mg tablet 500 mg PO DAILY@0800 SUPPLEMENT 01/02/22 carboxymethylcellulose sodium 0.5 % eye drops (Refresh Tears) 1 drp EACH EYE TID1 cholecalciferol (vitamin D3) 25 mcg (1,000 unit) chewable tablet (Vitamin D3) 25mcg PO DAILY@0800 SUPPLEMENT 01/02/22 ferrous gluconate 324 mg (38 mg iron) tablet 324 mg PO DAILY@0800 SUPPLEMENT 01/02/22 levothyroxine 50 mcg tablet 50 mcg PO DAILY@0600 THYROID 01/02/22 ondansetron 4 mg disintegrating tablet 4 mg PO TID PRN nausea and vomiting #21 tabs 06/13/23 GENERAL PROTECTION LOTION 1 dose topical 4X/DAY PRN skin protection 07/31/23 acetaminophen 160 mg/5 mL oral elixir 500 mg PO Q6H PRN fever or pain 07/31/23 bisacodyl 10 mg/30 mL enema (Fleet Bisacodyl) 5 mg ID DAILY PRN constipation 07/31/23 bismuth subsalicylate 525 mg/15 mL oral suspension (Pepto-Bismol Max St) 1,050 mg PO .4X DAILY PRN diarrhea 07/31/23 carboxymethylcellulose sodium 0.5 % eye drops (Refresh Tears) 1 drp ophthalmic (eye) 4-6XD PRN dry eye(s) 07/31/23 citalopram 10 mg tablet 10 mg PO DAILY 07/31/23 citalopram 20 mg tablet 20 mg PO DAILY 07/31/23 ipratropium 0.5 mg-albuterol 3 mg (2.5 mg base)/3 mL nebulization soln 3 ml inhalation Q4H PRN shortness of breath or wheezing 07/31/23 terbinafine HCl 1 % topical cream 1 applic topical BID PRN redness irrit 10/08/23 docusate sodium 100 mg capsule 100 mg PO Q OTHER DAY #15 caps 07/03/24 pantoprazole 40 mg tablet,delayed release 40 mg PO BID #60 tabs 09/07/24 Hospital Course Procedures EGD Summary of Care Provided Minutes Spent on Discharge: 38 Hospital Course: TONYA FLETCHER, is a 64 F who has a history of MRDD and is nonverbal at baselineand presented to the emergency department at [facility] on 09/05/2024 with caregivers. Evidently, about a week ago they thought she might of had a dark emesis. They saw her primary care physician but she did not have labs done at that time. Today she had another episode that looked black so theybrought her to the emergency department. She is anticoagulated baseline for home with Eliquis for history ofpulmonary embolus. History is limited as patient cannot participate in giving any review of systems. Vital signs on presentation showed temperature of 96.0, heart rate 84, respiratory 16, blood pressure was 119/71 and pulse ox 90% room air. CBC showed a leukocytosis white count of 12.1 and a hemoglobin of 13.9 with a normal platelet count. Coags werenormal. Chemistry panel was unremarkable other than mild hyperglycemia with a glucose of 105 that is nonfasting. Liver functions are normal. The initial planwas to recheck her hemoglobin at noon which we did. If there was a drop we are going to admit her if she was stable regarding discharge sure. Unfortunately her hemoglobin dropped about a gram and a half without being given any IV fluidsso there was no concern for hemodilution with IV fluids. Given his drop in her chronic ongoing use of Eliquis for PE we elected to admit her. She was given 1 dose of Protonix in the emergency department and then admitted to the medical floor with twice daily Protonix 40 mg. We followed her hemoglobin which remained relatively stable throughout her hospital course after the initial dropand gastroenterology was consulted. She was taken for EGD on 09/06/2024. EGD showed grade D erosive esophagitis with no bleeding, esophageal mucosal changes consistentwith long segment Arias's which was biopsied and a large hiatal hernia. Full liquid diet was reinitiated. We transition to a soft diet and I have instructed her family to start with soft diet for the next 24 to 48 hours and then progressively normalize her diet per her previous prior to admission. Hemoglobin at the time of discharge was stable at 12.9. Biopsies are pending atthe time of discharge. Patient is to follow-up with Dr. Kuhn and this appointment was scheduled and given to her on her discharge paperwork prior to discharge. We will discontinue her omeprazole and start Protonix 40 mg p.o. twice daily. She was written for a month supply with [address] Kuhn will decide ongoing PPI therapy after he follows up with her. She also follow-up with her primary care physician in the next 1 to 2 weeks for hospital follow-up. We were going to hold her Eliquis until Friday at which time she canrestart which is 09/10/2024. Discharge diagnoses: Hematemesis Severe esophagitis Long segment Arias's Nausea and vomiting Leukocytosis History of PE GERD Hypothyroidism Seasonal allergies CP Depression Chronic debility Physical Exam Const alert, no apparent distress, average body habitus and well nourished Constitutional Narrative: Older, white female, sitting up in bed, appears comfortable, nontoxic, caregiverat bedside General Appearance: cooperative, comfortable, well kempt and well developed Exam Limitations: language barrier and physical limitations HEENT normocephalic, head/scalp atraumatic and moist oral mucous membranes HEENT Narrative: Dentition is poor, Mallampati is 2, no thrush Eyes conjunctivae normal Eyes Narrative: No scleral icterus Neck supple Neck Narrative: Trachea midline, no thyroid enlargement Resp normal respiratory effort, no retractions, no use of accessory muscles and clearto auscultation bilaterally Auscultation: Negative for rales, rhonchi or wheezes Cardio regular rate, regular rhythm, S1 normal heart sound, S2 normal heart sound, no murmurs, no rub, no gallops and no clicks GI normal to inspection, nondistended, normoactive bowel sounds, soft to palpation and non-tender Extremity no clubbing, cyanosis or edema Extremity Narrative: Extremities upper and lower extremities are contracted with no significant edema, pedal pulses are 2+, radial pulses are 2+ Skin skin turgor normal, no jaundice, no petechiae and no mottling Neuro Neuro Narrative: Is able to move all 4 extremities but limited due to contractures, patient is wheelchair-bound at baseline, nonverbal baseline, follows commands and does interact Speech: Negative for speech normal Psych Psych Narrative: Calm Weight / BMI Weight Weight: 63.684 kg Body Mass Index (BMI) 27.6 ABG / Lab / Microbiology Data 09/07/24 12:40 09/07/24 06:33 Laboratory: Laboratory Results - last 24 hr 09/07/24 06:33: WBC 6.6, RBC 3.68 L, Hgb 11.7 L, Hct 35.5 L, MCV 96.5, MCH 31.8,MCHC 33.0, RDW Std Deviation 49.5 H, RDW Coeff of Handy 13.9, Plt Count 249, MPV 10.9, Sodium 140, Potassium 3.9, Chloride 107, Carbon Dioxide 24.0, Anion Gap 9,BUN 7, Creatinine 0.47 L, Estim Creat Clear Calc 101.08, EstGFR (MDRD) Non-Af 107, BUN/Creatinine Ratio 14.1, Glucose 107 H, Calcium 8.3 09/07/24 10:30: Hgb Cancelled 09/07/24 12:40: Hgb 12.9 D/C Instructions Discharge Diet: Light diet - advance as tolerated (Recommend starting with soft foods for the next 24 to 48 hours and then progressing as slowly to her regular diet) Discharge Activity: Return to Normal Activity DC O2, CPAP, BIPAP Needs Home O2 Discharge instructions: No DC home with Oxygen: No Meaningful Use Info Meaningful Use Meaningful Use Diagnoses (Choose all that apply): None applicable Ischemic Stroke Statin Dosing Therapy Reference: STATIN DOSE THERAPY REFERENCE: * Patients > 75 years receive moderate or high dose statin therapy. * Patients 75 years or YOUNGER should receive HIGH intensity statin dose unless contraindicated. You will be required to document reason for non-treatment if statin daily dose does not meet guidelines. HIGH DOSE STATIN THERAPY DAILY Atorvastatin > than or = to 40 mg Rosuvastatin > than or = to 20 mg Amlodipine + Atorvastatin > than or = to 2.5/40 mg Ezetimibe + Simvastatin 10/80 mg Simvastatin 80mg Discharge Plan Admission Admit Date/Time: 09/05/24 13:38 Primary Reason for Your Visit: Hematemesis Attending Provider: Jeni Ann Primary Care Provider: Michelle Marroquin Discharge Orders/Prescriptions Prescriptions: New pantoprazole 40 mg Tablet,Delayed Release (Dr/Ec) 40 mg PO BID Qty: 60 2RF Continued citalopram 20 mg tablet 20 mg PO DAILY Rx Instructions: TAKE WITH 10 MG TAB TO = 30 MG DAILY citalopram 10 mg tablet 10 mg PO DAILY Rx Instructions: TAKE WITH 20 MG TAB TO =30 MG DAILY ipratropium-albuterol 0.5 mg-3 mg(2.5 mg base)/3 mL solution for nebulization 3 ml inhalation Q4H PRN (Reason: shortness of breath or wheezing) Pepto-Bismol Max St 525 mg/15 mL suspension 1,050 mg PO .4X DAILY PRN (Reason: diarrhea) Rx Instructions: FOR UPSET STOMACH; do not exceed 8 doses in a 24 hour period acetaminophen 160 mg/5 mL elixir 500 mg PO Q6H PRN (Reason: fever or pain) Rx Instructions: PAIN OR FEVER>100.1 GENERAL PROTECTION LOTION 1 dose topical 4X/DAY PRN (Reason: skin protection) Rx Instructions: APPLY BEFORE SUN EXPOSURE AND REAPPLY NECESSARY Fleet Bisacodyl 10 mg/30 mL enema 5 mg ID DAILY PRN (Reason: constipation) Rx Instructions: ON DAY FIVE WITHOUT A BOWEL MOVEMENT carboxymethylcellulose sodium [Refresh Tears] 0.5 % drops 1 drp ophthalmic (eye) 4-6XD PRN (Reason: dry eye(s)) Rx Instructions: COMPLAINT OF DRY EYES terbinafine HCl 1 % cream 1 applic topical BID PRN (Reason: redness irrit) Rx Instructions: APPLY UNDER BREAST OR IN SKIN FOLDS FOR REDNESS loratadine 10 MG tablet 10 mg PO DAILY@0800 mirtazapine 7.5 MG tablet 7.5 mg PO QHS@1999 azelastine 6 ML drops 0.05 drp EACH EYE BID@0800,[address]: [address] (1) DROP INTO EACH EYE TWICE DAILY NEEDEDFOR DRY EYE levothyroxine 50 mcg tablet 50 mcg PO DAILY@0600 cholecalciferol (vitamin D3) [Vitamin D3] 25 mcg (1,000 unit) Tablet,Chewable 25 mcg PO DAILY@0800 ascorbic acid (vitamin C) 500 MG tablet 500 mg PO DAILY@0800 ferrous gluconate 324 MG tablet 324 mg PO DAILY@0800 carboxymethylcellulose sodium [Refresh Tears] 0.5 % Drops 1 drp EACH EYE TID ondansetron 4 mg tablet,disintegrating 4 mg PO TID PRN (Reason: nausea and vomiting) Qty: 21 0RF docusate sodium 100 mg capsule 100 mg PO Q OTHER DAY Qty: 15 5RF Held apixaban 5 MG tablet 5 mg PO BID Hold Instructions: Resume on 09/10/24. Discontinued omeprazole 40 mg Capsule,Delayed Release(Dr/Ec) 40 mg PO DAILY@0700 Referrals / Follow Up: Michelle Marroquin MD [Primary Care Provider] - Stalin Kuhn DO [Med Staff - Active Staff] - 09/21/24 1:30 pm (with Claudette Corbett nurse practioner) Disposition Disposition (needs filled in before D/C Order can be placed): Home, Self Care Charges/Coding Visit Charges Inpatient E&M: 19906 Disch Hosp >30min 09/07/24 1313 Cosigner Signature (if applicable): CC: Dr. Michelle Marroquin MD; Dr. Jeni Ann DO; Stalin Kuhn DO~ Signed [facility]07-01-2025 [facility] Medical Records Department [address] [place] [id number] Discharge Summary 09/07/24 1300 MR#: [id number] Acct: [id number] Name: TONYA FLETCHER Rep #: [id number] : 1960 64 From: Jeni Ann DO PCP: Dr. Michelle Marroquin MD Status:ADM IN [place] [id number] Providers Date of Admission: 09/05/24 Date of Discharge: 09/07/24 Primary Care Physician: Dr. Michelle Marroquin MD Consultations 09/05/24 14:12 Consult: Gastroenterology Routine Consulting Provider: [facility] Reason for Consult: GI bleed EMERGENT Consult: No MD Notified: Yes Date Notified: 09/05/24 Time Notified: 13:40 Method of Notification: Text Reason For Visit: HEMETEMSIS Diagnosis Discharge Diagnosis (1) Hematemesis: Status: Acute Code(s): K92.0 - Hematemesis Medications at Discharge Home Medications loratadine 10 mg tablet 10 mg PO DAILY@0800 ALLERGIES 09/10/14 mirtazapine 7.5 mg tablet 7.5 mg PO QHS@1999 DEPRESSION 05/19/17 azelastine 0.05 % eye drops 0.05 drp EACH EYE BID@0800,1999 DRY EYES 08/08/18 apixaban 5 mg tablet 5 mg PO BID BLOOD THINNER 11/23/18 Held on 09/07/24. Instructions: Resume on 09/10/24. ascorbic acid (vitamin C) 500 mg tablet 500 mg PO DAILY@0800 SUPPLEMENT 01/02/22 carboxymethylcellulose sodium 0.5 % eye drops (Refresh Tears) 1 drp EACH EYE TID 01/02/22 cholecalciferol (vitamin D3) 25 mcg (1,000 unit) chewable tablet (Vitamin D3) 25 mcg PO DAILY@0800 SUPPLEMENT 01/02/22 ferrous gluconate 324 mg (38 mg iron) tablet 324 mg PO DAILY@0800 SUPPLEMENT 01/02/22 levothyroxine 50 mcg tablet 50 mcg PO DAILY@0600 THYROID 01/02/22 ondansetron 4 mg disintegrating tablet 4 mg PO TID PRN nausea and vomiting #21 tabs 06/13/23 GENERAL PROTECTION LOTION 1 dose topical 4X/DAY PRN skin protection 07/31/23 acetaminophen 160 mg/5 mL oral elixir 500 mg PO Q6H PRN fever or pain 07/31/23 bisacodyl 10 mg/30 mL enema (Fleet Bisacodyl) 5 mg ID DAILY PRN constipation 07/31/23 bismuth subsalicylate 525 mg/15 mL oral suspension (Pepto-Bismol Max St) 1,050 mg PO .4X DAILY PRN diarrhea 07/31/23 carboxymethylcellulose sodium 0.5 % eye drops (Refresh Tears) 1 drp ophthalmic (eye) 4-6XD PRN dry eye(s) 07/31/23 citalopram 10 mg tablet 10 mg PO DAILY 07/31/23 citalopram 20 mg tablet 20 mg PO DAILY 07/31/23 ipratropium 0.5 mg-albuterol 3 mg (2.5 mg base)/3 mL nebulization soln 3 ml inhalation Q4H PRN shortness of breath or wheezing 07/31/23 terbinafine HCl 1 % topical cream 1 applic topical BID PRN redness irrit 10/08/23 docusate sodium 100 mg capsule 100 mg PO Q OTHER DAY #15 caps 07/03/24 pantoprazole 40 mg tablet,delayed release 40 mg PO BID #60 tabs 09/07/24 Hospital Course Procedures EGD Summary of Care Provided Minutes Spent on Discharge: 38 Hospital Course: TONYA FLETCHER, is a 64 F who has a history of MRDD and is nonverbal at baseline and presented to the emergency department at [facility] on 09/05/2024 with caregivers. Evidently, about a week ago they thought she might of had a dark emesis. They saw her primary care physician but she did not have labs done at that time. Today she had another episode that looked black so they brought her to the emergency department. She is anticoagulated baseline for home with Eliquis for history of pulmonary embolus. History is limited as patient cannot participate in giving any review of systems. Vital signs on presentation showed temperature of 96.0, heart rate 84, respiratory 16, blood pressure was 119/71 and pulse ox 90% room air. CBC showed a leukocytosis white count of 12.1 and a hemoglobin of 13.9 with a normal platelet count. Coags were normal. Chemistry panel was unremarkable other than mild hyperglycemia with a glucose of 105 that is nonfasting. Liver functions are normal. The initial plan was to recheck her hemoglobin at noon which we did. If there was a drop we are going to admit her if she was stable regarding discharge sure. Unfortunately her hemoglobin dropped about a gram and a half without being given any IV fluids so there was no concern for hemodilution with IV fluids. Given his drop in her chronic ongoing use of Eliquis for PE we elected to admit her. She was given 1 dose of Protonix in the emergency department and then admitted to the medical floor with twice daily Protonix 40 mg. We followed her hemoglobin which remained relatively stable throughout her hospital course after the initial drop and gastroenterology was consulted. She was taken for EGD on 09/06/2024. EGD showed grade D erosive esophagitis with no bleeding, esophageal mucosal changes consistent with long segment Arias's which was biopsied and a large hiatal hernia. Full liquid diet was reinitiated. We transition to a soft diet and I have instructed her family to start with soft diet for the next 24 to 48 hours and then progressively nor (more content not included)...[facility]06-30-2025 Consult note Author Arlet Mcdonald [facility] Note Date/Time September 06, 2024 4:45 pm [facility] Medical Records Department [address] [place] [address] Anesthesia Postop Eval II 09/06/241644 MR#: [id number] Acct: [id number] Name: TONYA FLETCHER Rep #:[id number] : 1960 64 From: Arlet Mcdonald CRNA PCP: Dr. Michelle Marroquin MD Status:A DM IN Y Race: C [place] [facility] [id number] -1 Anesthesia Postop Eval I Sum Postop Eval Completion status Anesthesia document: Postop Eval 1 completed: Yes Anesthesia Postop Eval I Summary Anesthesia Postop Eval I Summary: Anesthesia Postop Eval I: Assessment Summary Airway patent Yes 09/06/24 13:44 [email or web address] Spontaneous unlabored Yes 09/06/24 13:44 [email or web address] [email or web address] respirations Mental status nausea No 09/06/24 13:44 [email or web address] Vomiting No 09/06/24 13:44 [email or web address] Anesthesia Postop Eval I: Fluid Summary Crystalloid volume administer 400 09/06/24 13:44 [email or web address] (ml) Colloids volume administered ( ml) Blood Product volume administered (ml) Total IV fluid infused 400 09/06/24 13:44 [email or web address] Anesthesia Postop Eval I: Summary Notes Anesthesia Complication No 09/06/24 13:44 [email or web address] Anesthesia Complication Comment: Post-operative progress note Anesthesia: Postop Eval II Evaluation Mental status: Awake Pain Level: 1 nausea: No Vomiting: No 09/06/241644 <Electronically signed by Arlet Sirc a CORE WINDER> Date _ Arlet Mcdonald CORE WINDER Cosigner Signature: Date CC: ~ Signed [facility] Work Phone: 1(594) 832-599406-30-2025 Consult note [facility] Medical Records Department [address] [place] [address] Anesthesia Postop Eval II 09/06/24 1645 MR#: [id number] Acct: [id number] Name: TONYA FLETCHER Rep #:[id number] : 1960 64 From: Arlet Mcdonald CRNA PCP: Dr. Michelle Marroquin MD Status:A DM IN Y Race: C Location: [facility] [place] [id number] -1 Anesthesia Postop Eval I Sum Postop Eval Completion status Anesthesia document: Postop Eval 1 completed: Yes Anesthesia Postop Eval I Summary Anesthesia Postop Eval I Summary: Anesthesia Postop Eval I: Assessment Summary Airway patent Yes 09/06/24 13:44 [email or web address] Spontaneous unlabored Yes 09/06/24 13:44 [email or web address] respirations Mental status nausea No 09/06/24 13:44 [email or web address] [email or web address] Vomiting No 09/06/24 13:44 [email or web address] [email or web address] Anesthesia Postop Eval I: Fluid Summary Crystalloid volume administer 400 09/06/24 13:44 CORE [email or web address] (ml) Colloids volume administered ( ml) Blood Product volume administered (ml) Total IV fluid infused 400 09/06/24 13:44 [email or web address] Anesthesia Postop Eval I: Summary Notes Anesthesia Complication No 09/06/24 13:44 [email or web address] Anesthesia Complication Comment: Post-operative progress note Anesthesia: Postop Eval II Evaluation Mental status: Awake Pain Level: 1 nausea: No Vomiting: No 09/06/24 1645 a CORE WINDER> Date _ Arlet Loboigner Signature: Date CC: ~ Signed [facility]06-30-2025 Progress note Author Jeni Ann [facility] Note Date/Time September 06, 2024 1:51 pm [facility] Medical Records Department [address] [place] [address] Progress Note - Hospitalist 09/06/24 0722 MR#: [id number] Acct: [id number] Name: TONYA FLETCHER Rep #:[id number] : 1960 64 From: Jeni Ann DO PCP: Dr. Michelle Marroquin MD Status:A DM IN Location: MS3 ON263-4 Reason for Visit Reason for Visit: Hematemesis Subjective Subjective No issues overnight. Patient has been relatively stable. No further hematemesis. Hemoglobin did drop some but seems to be stabilizing. Plan is forEGD today. Objective Data Objective Data Vital Signs: Vital Signs Temp Pulse Resp BP Pulse Ox O2 Del Method 97.7 F L 81 18 113/56 L 93 Room Air 09/06/24 03:14 09/06/24 03:14 09/06/24 03:14 09/06/24 03:14 09/06/24 03:14 09/06/24 03:14 Oxygen Delivery Method Room Air Weight: 56.699 kg Body Mass Index (BMI) 24.4 Intake & Output: Intake and Output for Last 24 Hours 09/04/24 09/05/24 09/06/24 23:59 23:59 23:59 Intake Total 450 / 450 200 / 200 Output Total 900 / 900 Balance 450 / 450 -700 / -700 Lab / Micro Data 09/06/24 11:25 09/06/24 05:31 Labs: Laboratory Results - last 24 hr 09/05/24 08:16: WBC 12.1 H, RBC 4.34, Hgb 13.9, Hct 41.2, MCV 94.9, MCH 32.0, MCHC 33.7, RDW Std Deviation 47.7 H, RDW Coeff of Handy 13.5, Plt Count 263, MPV 11.2, Immature Gran % (Auto) 0.200, Neut % (Auto) 62.1, Lymph % (Auto) 28.4, Dar[place] % (Auto) 6.0, Eos % (Auto) 2.5, Baso % (Auto) 0.8, Absolute Neuts (auto) 7.5, Absolute Lymphs (auto) 3.45, Nucleated RBC % 0, PT 13.6, INR 1.0, APTT 27.9, Sodium 140, Potassium 4.2, Chloride 104, Carbon Dioxide 24.1, Anion Gap 12, BUN 10, Creatinine 0.47 L, Est GFR (MDRD) Non-Af 107, BUN/Creatinine Ratio 22.1 H, Glucose 105 H, Calcium 9.0, Total Bilirubin 0.39, AST 15, ALT 5, Alkaline Phosphatase 86, Total Protein 6.9, Albumin 3.8, Globulin 3.1, Albumin/Globulin Ratio 1.2, Blood Type Cancelled, Antibody Screen Cancelled 09/05/24 09:15: Blood Type A POSITIVE, Antibody Screen NEGATIVE 09/05/24 12:25: Hgb 12.6, Hct 36.8 L 09/05/24 14:55: Hgb 13.1, Hct 38.9 09/05/24 20:00: Hgb 13.4, Hct 39.8 09/06/24 02:32: Hgb 12.2, Hct 36.6 L 09/06/24 05:31: WBC 7.0, RBC 3.78 L, Hgb 12.1, Hct 36.6 L, MCV 96.8, MCH 32.0, MCHC 33.1, RDW Std Deviation 49.1 H, RDW Coeff of Handy 13.8, Plt Count 270, MPV 11.0, Immature Gran % (Auto) 0.300, Neut % (Auto) 49.8, Lymph % (Auto) 40.6, [place] % (Auto) 5.8, Eos % (Auto) 2.8, Baso % (Auto) 0.7, Absolute Neuts (auto) 3.5, Absolute Lymphs (auto) 2.85, Nucleated RBC % 0, Sodium 142, Potassium 3.7, Chloride 108, Carbon Dioxide 24.4, Anion Gap 10, BUN 7, Creatinine 0.49 L, EstimCreat Clear Calc 92.72, Est GFR (MDRD) Non-Af 106, BUN/Creatinine Ratio 14.4, Glucose 99, Calcium 8.9, Phosphorus 3.4, Magnesium 1.9, Total Bilirubin 0.53, AST 13, ALT < 5, Alkaline Phosphatase 80, Total Protein 6.1, Albumin 3.5, Globulin 2.6, Albumin/Globulin Ratio 1.4, TSH 2.270 Physical Exam Const alert, no apparent distress, average body habitus and well nourished Constitutional Narrative: Older, white female, lying in bed, does not appear to be in distress or toxic, mother at bedside, patient is nonverbal at baseline however she does follow commands consistently General Appearance: cooperative HEENT normocephalic and head/scalp atraumatic HEENT Narrative: Dentition is poor, Mallampati is 3, no thrush Resp normal respiratory effort, no retractions, no use of accessory muscles and clearto auscultation bilaterally Auscultation: Negative for rales, rhonchi or wheezes Cardio regular rate, regular rhythm, S1 normal heart sound, S2 normal heart sound, no murmurs, no rub, no gallops and no clicks GI normal to inspection, nondistended, normoactive bowel sounds, soft to palpation and non-tender Extremity no clubbing, cyanosis or edema Extremity Narrative: Extremities upper and lower extremities are contracted with no significant edema, pedal pulses are 2+, radial pulses are 2+ Neuro Neuro Narrative: Is able to move all 4 extremities but limited due to contractures, patient is wheelchair-bound at baseline, nonverbal baseline Speech: Negative for speech normal Psych Psych Narrative: Calm Assessment & Plan Assessment/Plan (1) Hematemesis: PLAN: Plan Hematemesis - Patient with 2 episodes of melena witnessed of hematemesis - No further episodes but hemoglobin 12.1 down from 13.9 - Continue n.p.o. - Continue Protonix IV twice daily - EGD input is pending however I do suspect EGD later today Leukocytosis - Resolved History of PE - Remote - Hold apixaban for now while concern of GI bleed - Will restart apixaban as soon as possible History of Arias's esophagus/GERD - Hold home omeprazole - IV PPI twice daily Hypothyroidism -continue home levothyroxine Seasonal allergies - Continue home loratadine - restart eyedrops at discharge as they are nonformulary here - Continue hydrating drops Cerebral palsy - Currently resides in a longterm Depression - Continue home citalopram - Continue home mirtazapine 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 - Patient is wheelchair-bound at baseline DVT prophylaxis - SCDs while apixaban is on hold CODE STATUS - CODE STATUS under percent confirmed with her mother today at the bedside and she is DNR CCA with no intubation Charges/Coding Visit Charges Inpatient E&M: 42489 Subs Hosp L2 09/06/24 1351 <Electronically signed by Jeni Ann DO> Cosigner Signature (if applicable): CC: ~ Signed [facility] Work Phone: [phone] 777-737806-30-2025 Consult note Author Brian Su [facility] Note Date/Time September 06, 2024 1:45 pm [facility] Medical Records Department [address] [place] [id number] Anesthesia Postop Eval I 09/06/24 1344 MR#: [id number] Acct: [id number] Name: TONYA FLETCHER Rep #:[id number] : 1960 64 From: Brian VAUGHAN PCP: Dr. Michelle Marroquin MD Status:A DM IN Y Race: C Location: [place] [address] -1 Anesthesia: Postop Eval I Current Vital Signs Temperature: 97 F Pulse Rate: 90 Blood Pressure: 101/50 Respiratory Rate: 16 Pulse Ox: 94 Assessment Airway patent: Yes Spontaneous unlabored respirations: Yes nausea: No Vomiting: No Anesthesia Complication: No Fluid Hydration Crystalloid volume administer (ml): 400 Total IV fluid infused: 400 Progress Note Anesthesia document: Postop Eval 1 completed: Yes 09/06/24 1345 <Electronically signed by Brian Su CRNA> Date _ Brian Su CRNA Cosigner Signature: Date CC: ~ Signed [facility] Work Phone: [phone] Consult note Author Grey Roberts [facility] Note Date/Time September 06, 2024 1:04 pm [facility] Medical Records Department [address] [place] [address] [place] [address] Pre-Anesthesia Evaluation 09/06/24 1253 MR#: [id number] Acct: [id number] Name: TONYA FLETCHER Rep #:[id number] : 1960 64 From: Grey Roberts MD PCP: Dr. Michelle Marroquin MD Status:A DM IN Y Race: C Location: [place] [address] ASA Classification* ASA Classification ASA Classification: 3 Assessment & Plan Anesthesia* Anesthesia Assessment Anesthesia Assessment: Discussed sedation and/or anesthesia options, risks, benefits, and alternatives with patient/parents/legal guardian/POA. Questions invited. The patient/parents/legal guardian/POA seems to understand and agrees to proceedwith anesthesia plan. Reviewed the physical assessment, medical history, allergy history and patient home medications list prior to surgery/procedure/anesthetic and documented any changes. Performed airway and anesthesia risk assessments. Anesthesia Type Anesthesia Type: MAC History Source History Obtained from:: Patient and Chart Anesthesia Focused Assessment* Temperature: 97.8 F Pulse Rate: 84 Blood Pressure: 104/78 Respiratory Rate: 18 Pulse Ox: 94 Oxygen Delivery Method: Room Air Airway Assessment Mouth opens: >3 cm Mallampati Score: IV Teeth Condition: Intact and Missing (Patient missing several teeth.) Neck Range of motion (ROM): Limited ROM (Somewhat decreased extension) Labs Anesthesia Preop lab: CBC WBC 7.0 K/mm3 (4.4-11.0) 09/06/24 05:31 09/06/24 RBC 3.78 M/mm3 (4.2-5.4) L 09/06/24 05:09/06/24 Hgb 12.2 g/dL (12.0-15.0) 09/06/24 11:25 09/06/24 Hct 37.4 % (37-47) 09/06/24 11:25 09/06/24 Plt Count 270 K/mm3 (150-450) 09/06/24 05:09/06/24 CHEMISTRY Potassium 3.7 mmol/L (3.3-5.1) 09/06/24 05:09/06/24 Sodium 142 mmol/L (133-145) 09/06/24 05:09/06/24 Magnesium 1.9 mg/dL (1.5-2.2) 09/06/24 05:09/06/24 Phosphorus 3.4 mg/dL (2.7-4.5) 09/06/24 05:09/06/24 BUN 7 mg/dL (4-19) 09/06/24 05:09/06/24 Creatinine 0.49 mg/dL (0.70-1.20) L 09/06/24 05: Glucose 99 mg/dL (70-99) 09/06/24 05:09/06/24 TSH 2.270 uIU/mL (0.300-4.200) 09/06/24 05:08/10 COAG PT 13.6 SECONDS (11.7-14.9) 09/05/24 08:16 Pre-Assessment Diagnosis/Proposed Procedure Planned Operative Procedure(s): EGD, with possible cautery and/or injection therapy. Anesthesia History Anesthesia History - skein yarn drier: Anesthesia History - skein yarn drier Hx Hospitalization No 08/10/24 14:47 Any Problems With Anesthesia No 09/05/24 20:03 Cholinesterase deficiency No 09/05/24 20:03 You/Your Family Experience No 09/05/24 20:03 fever (hyperthermia) with Relationship Recent Exposure to Contagious No 09/05/24 20:03 Disease Does patient have nerve No: neurotransmitter or 09/05/24 20:03 stimulator pacemaker that is not working Patient instructed to have No 09/05/24 20:03 device shut off --Does patient have Pacemaker No 09/06/24 11:42 or ICD? When Was Last Pacemaker Check QUESTION #4 FULL TEXT: You/Your Family Experience fever (hyperthermia) with Anesthesia Last Oral Intake Last Oral intake: Last Oral Intake NPO since 00:00 09/06/24 11:42 Meds taken in AM with sips of No 09/06/24 11:42 water? Meds patient instructed to take am of surgery PONV PONV - skein yarn drier: PONV - skein yarn drier Female HX of Motion Sickness HX of N/V After Surgery Non-Smoker Duration of Surgery greater than 60 minutes Number of Risk Factors PONV Score Height & Weight Height & Weight: Anesthesia: Height & Weight Height 5 ft 09/06/24 12:01 Weight: 61.28 kg 09/06/24 12:01 Body Mass Index (BMI) 26.4 09/06/24 11:42 Respiratory Assessment Respiratory Assessment - skein yarn drier: Respiratory Tract Infection Hx - skein yarn drier Hx Respiratory Tract Infection No 09/05/24 20:03 STOP Sleep Apnea STOP Sleep Apnea - skein yarn drier: STOP Sleep Apnea - skein yarn drier Hx Hypertension Yes 09/06/24 10:19 Hx Sleep Apnea Yes 09/05/24 15:39 CPAP No 09/05/24 15:39 BIPAP No 09/05/24 15:39 Do you snore loudly (louder than talking or can be heard Do you often feel tired/ fatigued/ sleepy during daytime? Has anyone observed you stop breathing during sleep? STOP Results Positive 09/05/24 15:39 QUESTION #5 FULL TEXT : Do you snore loudly (louder than talking or can be heard through closed doors)? Tobacco Use History Tobacco Use History - skein yarn drier: Tobacco Use History - skein yarn drier Tobacco Use Smoking Status Never smoker 09/05/24 15:39 Hx Tobacco Use No 09/05/24 15:39 Years Smoking Packs Smoked per Day Smoking Cessation Date was within the last 15 years Hx Smoking Cessation Date Hx Smoking Cessation Counseling Hematologic Medial History Hematologic Hx - skein yarn drier: Hematologic Medical Hx - special delivery messenger Hx of Blood Transfusion No 09/05/24 15:39 Hx of Transfusion in last 3 No 09/05/24 15:39 Months Date of Last Transfusion (if within last 3 months) Ever experience any problems No 09/05/24 15:39 with transfusion(s)? Specify any problems Hx of Preganancy in last 3 N/A 09/05/24 15:39 Months Nurse Filling Out Transfusion TWOLF 09/05/24 15:39 & Questions: Date: 09/05/24 09/05/24 15:39 Time: 15:40 09/05/24 15:39 Patient unable to answer at this time (ie. confused, unrespo /Reproduction History /Reproductive History - skein yarn drier: /Reproductive Hx- skein yarn drier Hx Now Gestational Age (in weeks): EDC: Hx Hx Para Hx Section SAB Active Medications Active Medications: Current Medications Generic Name Dose Route Start Last Admin Trade Name Freq PRN Reason Stop Dose Admin Acetaminophen 500 mg 09/05/24 15:19 Acetaminophen 650 Mg/20 Ml Udc PO Q6H PRN fever or pain 1-10 Albuterol/Ipratropium 3 ml 09/05/24 14:12 Ipratropium/Albuterol Sulfate 3 Ml Ampul.Neb INHALATION Q4H PRN shortness of breath or wheezing Artificial Tears 1 drp 09/05/24 14:25 Carboxymethylcellulose Sodium 15 Ml Ophth Drops EACH EYE 5X/DAY PRN dry eye(s) Artificial Tears 1 drp 09/05/24 22:00 09/06/24 08:31 Carboxymethylcellulose Sodium 15 Ml Ophth Drops EACH EYE Not Given TID [facility] Ascorbic Acid 500 mg 09/06/24 08:00 Ascorbic Acid 500 Mg Tablet PO DAILY@0800 [facility] Cholecalciferol 25 mcg 09/06/24 08:00 Cholecalciferol (Vit D3) 25 Mcg Tablet (1,000 Units) PO DAILY@0800 [facility] Citalopram Hydrobromide 10 mg 09/06/24 10:00 Citalopram 10 Mg Tablet PO DAILY [facility] Citalopram Hydrobromide 20 mg 09/06/24 10:00 Citalopram 20 Mg Tablet PO DAILY [facility] Docusate Sodium 100 mg 09/06/24 10:00 Docusate Sodium 100 Mg Capsule PO QODAY [facility] Ferrous Gluconate 324 mg 09/06/24 08:00 Ferrous Gluconate 324 Mg Tablet PO DAILY@0800 [facility] Pantoprazole Sodium 40 mg/ 100 mls @ 300 mls/hr 09/05/24 22:00 09/06/24 11:25 Sodium Chloride IV Infused Q12 [facility] Infusion Sodium Chloride 250 mls @ 15 mls/hr 09/05/24 14:27 09/06/24 11:40 IV 0 mls/hr .[id number] PRN Infusion Saline Flush Sodium Chloride 250 mls @ 15 mls/hr 09/05/24 14:27 IV .[id number] PRN Additional IVPB Infusion Lactated Ringer's 1,000 mls @ 15 mls/hr 09/06/24 12:15 09/06/24 12:25 IV 15 mls/hr .Q48H STEVO Administration Levothyroxine Sodium 50 mcg 09/06/24 06:00 09/06/24 06:22 Levothyroxine 50 Mcg Tablet PO Not Given DAILY@0600 STEVO Loratadine 10 mg 09/06/24 08:00 Loratadine 10 Mg Tablet PO DAILY@0800 STEVO Melatonin 3 mg 09/05/24 14:12 Melatonin 3 Mg Tablet PO QHS PRN PRN INSOMNIA Mirtazapine 7.5 mg 09/05/24 20:00 09/05/24 20:06 Mirtazapine 15 Mg Tablet PO 7.5 mg QHS@1999 STEVO Administration Ondansetron HCl 4 mg 09/05/24 14:12 Ondansetron 4 Mg/2 Ml Vial IV Q8H PRN PRN NAUSEA/VOMITING Sodium Chloride 10 - 40 ml 09/05/24 14:27 09/06/24 11:02 0.9% Saline Lock 10 Ml Syringe IV 10 ml UD PRN Administration SALINE FLUSH PFSH Medical History Diarrhea Nausea Intellectual developmental disorder, severe Urinary incontinence History of aspiration pneumonia Sore throat Hypothyroidism Cerebral palsy History of airway aspiration Health care maintenance Anxiety and depression History of pulmonary embolism Gastroenteritis URI (upper respiratory infection) neurostimulater Pacemaker metal gavi rt leg Hyperlipidemia Insomnia Fecal impaction Barretts esophagus Pulmonary embolism Vitamin D deficiency Allergic rhinitis GERD (gastroesophageal reflux disease) Depression Home Medications ?Medication ?Instructions ?Recorded ?Last Taken ?Type loratadine 10 mg tablet 10 mg PO DAILY@0800 ALLERGIE S 09/10/14 01/02/22 History mirtazapine 7.5 mg tablet 7.5 mg PO QHS@1999 DEPRESSIO N 05/19/17 01/01/22 History azelastine 0.05 % eye drops 0.05 drp EACH EYE BID@0800 ,199908/08/18 01/02/22 History DRY EYES apixaban 5 mg tablet 5 mg PO BID BLOOD THINNER 01/02/22 History ascorbic acid (vitamin C) 500 mg 500 mg PO DAILY@0800 SUPPLEMENT 01/02/22 01/02/22 History tablet carboxymethylcellulose sodium 0.5 1 drp EACH EYE TID 1 01/02/22 History % eye drops (Refresh Tears) cholecalciferol (vitamin D3) 25 25 mcg PO DAILY@0800 S UPPLEMENT 01/02/22 01/02/22 History mcg (1,000 unit) chewable tablet (Vitamin D3) ferrous gluconate 324 mg (38 mg 324 mg PO DAILY@0800 S UPPLEMENT 01/02/22 01/02/22 History iron) tablet levothyroxine 50 mcg tablet 50 mcg PO DAILY@0600 THYRO ID 01/02/22 01/02/22 History omeprazole 40 mg capsule,delayed 40 mg PO DAILY@0700 G ERD 01/02/22 01/02/22 History release ondansetron 4 mg disintegrating 4 mg PO TID PRN nausea and 06/13/23 Unknown Rx tablet vomiting #21 tabs GENERAL PROTECTION LOTION 1 dose topical 4X/DAY PRN sk in 07/31/23 Unknown History protection acetaminophen 160 mg/5 mL oral 500 mg PO Q6H PRN fever or pain 07/31/23 Unknown History elixir bisacodyl 10 mg/30 mL enema (Fleet 5 mg ID DAILY PRN c onstipation 07/31/23 Unkno wn History Bisacodyl) bismuth subsalicylate 525 mg/15 mL 1,050 mg PO .4X CLYDE LY PRN diarrhea 07/31/23 Unknown History oral suspension (Pepto-Bismol Max St) carboxymethylcellulose sodium 0.5 1 drp ophthalmic (ey e) 4-6XD PRN 07/31/23 Unknown History % eye drops (Refresh Tears) dry eye(s) citalopram 10 mg tablet 10 mg PO DAILY 07/31/23 Unkn own History citalopram 20 mg tablet 20 mg PO DAILY 07/31/23 Unkn own History ipratropium 0.5 mg-albuterol 3 mg 3 ml inhalation Q4H PRN shortness 07/31/23 Unknown History (2.5 mg base)/3 mL nebulization of breath or wheezing soln terbinafine HCl 1 % topical cream 1 applic topical BID PRN redness 10/08/23 Unknown History irrit docusate sodium 100 mg capsule 100 mg PO Q OTHER DAY # 15 caps 07/03/24 Unknown Rx Allergy/AdvReac Type Severity Reaction Status Date / Time amoxicillin trihydrate (From AdvReac Unknown Verified 08/10/24 14:57 Augmentin) potassium clavulanate (From AdvReac Unknown Verified 08/10/24 14:57 Augmentin) Family History Father Pulmonary embolism Alcoholism Mother CVA (cerebral vascular accident) Surgical History Hx of cataract removal with insertion of prosthetic lens Social History Smoking Status: Never smoker alcohol intake: current alcohol intake frequency: 0-2 drinks per day substance use type: does not use and other details: THC LAST USED ON 07/20/23 seatbelt use: always Review of Systems (Anesthesia) ROS Narrative System reviewed and no additional complaints, except as documented. 09/06/24 1309 <Electronically signed by Grey allan MD> Date _ Grey Roberts MD Cosigner Signature: Date CC: ~ Signed [facility] Work Phone: [phone] Progress note Author Stalin Friend [facility] Note Date/Time September 06, 2024 12:2 2pm [facility] Medical Records Department [facility] [place] [address] Progress Note 09/06/24 1219 MR#: [id number] Acct: [id number] Name: TONYA FLETCHER Rep #:[id number] : 1960 64 From: Stalin Kuhn DO PCP: Dr. Michelle Marroquin MD Status:A DM IN Location: MS3 XV079-2 Progress Note 64-year-old female history of MRDD lives in an apartment has caregivers. She has a history of Arias's esophagus. She also has a history of iron deficiencyanemia, on iron and vitamin C. She also has a history of atrial fibrillation and cardiomyopathy on Eliquis. She is also status post permanent pacemaker. Asper the POA she started having coffee-ground emesis about a week ago. She came into the ED yesterday because she had another episode of coffee-ground emesis. I was asked to see her for treatment of upper GI bleed. Physical Exam Const alert, no apparent distress, average body habitus and well nourished Constitutional Narrative: Older, white female, lying in bed, does not appear to be in distress or toxic, caregiver at bedside General Appearance: cooperative Eyes conjunctivae normal Eyes Narrative: No scleral icterus Resp normal respiratory effort, no retractions, no use of accessory muscles and clearto auscultation bilaterally Auscultation: Negative for rales, rhonchi or wheezes Cardio regular rate, regular rhythm, S1 normal heart sound, S2 normal heart sound, no murmurs, no rub, no gallops and no clicks GI normal to inspection, nondistended, normoactive bowel sounds, soft to palpation and non-tender Visit Charges Inpatient E&M: 36500 Subs Hosp L2 09/06/24 1222 <Electronically signed by Stalin Kuhn DO> Stalin Kuhn DO Cosigner Signature (if applicable): CC: ~ Signed [facility] Work Phone: [phone] Progress note [facility] Medical Records Department [address] [place] [address] Progress Note - Hospitalist 09/06/24 0722 MR#: [id number] Acct: [id number] Name: TONYA FLETCHER Rep #:[id number] : 1960 64 From: Jeni Ann DO PCP: Dr. Michelle Marroquin MD Status:A DM IN Location: MS3 LW029-9 Reason for Visit Reason for Visit: Hematemesis Subjective Subjective No issues overnight. Patient has been relatively stable. No further hematemesis. Hemoglobin did drop some but seems to be stabilizing. Plan is forEGD today. Objective Data Objective Data Vital Signs: Vital Signs Temp Pulse Resp BP Pulse Ox O2 Del Method 97.7 F L 81 18 113/56 L 93 Room Air 09/06/24 03:14 09/06/24 03:14 09/06/24 03:14 09/06/24 03:14 09/06/24 03:14 09/06/24 03:14 Oxygen Delivery Method Room Air Weight: 56.699 kg Body Mass Index (BMI) 24.4 Intake & Output: Intake and Output for Last 24 Hours 09/04/24 09/05/24 09/06/24 23:59 23:59 23:59 Intake Total 450 / 450 200 / 200 Output Total 900 / 900 Balance 450 / 450 -700 / -700 Lab / Micro Data 09/06/24 11:25 09/06/24 05:31 Labs: Laboratory Results - last 24 hr 09/05/24 08:16: WBC 12.1 H, RBC 4.34, Hgb 13.9, Hct 41.2, MCV 94.9, MCH 32.0, MCHC 33.7, RDW Std Deviation 47.7 H, RDW Coeff of Handy 13.5, Plt Count 263, MPV 11.2, Immature Gran % (Auto) 0.200, Neut %(Auto) 62.1, Lymph % (Auto) 28.4, [place] % (Auto) 6.0, Eos % (Auto) 2.5, Baso % (Auto) 0.8, Absolute Neuts (auto) 7.5, Absolute Lymphs (auto) 3.45, Nucleated RBC % 0, PT 13.6, INR 1.0, APTT 27.9, Sodium 140, Potassium 4.2, Chloride 104, Carbon Dioxide 24.1, Anion Gap 12, BUN 10, Creatinine 0.47 L, Est GFR (MDRD) Non-Af 107, BUN/Creatinine Ratio 22.1 H, Glucose 105 H, Calcium 9.0, Total Bilirubin 0.39, AST 15, ALT 5, Alkaline Phosphatase 86, Total Protein 6.9, Albumin 3.8, Globulin 3.1, Albumin/Globulin Ratio 1.2, Blood Type Cancelled, Antibody Screen Cancelled 09/05/24 09:15: Blood Type A POSITIVE, Antibody Screen NEGATIVE 09/05/24 12:25: Hgb 12.6, Hct 36.8 L 09/05/24 14:55: Hgb 13.1, Hct 38.9 09/05/24 20:00: Hgb 13.4, Hct 39.8 09/06/24 02:32: Hgb 12.2, Hct 36.6 L 09/06/24 05:31: WBC 7.0, RBC 3.78 L, Hgb 12.1, Hct 36.6 L, MCV 96.8, MCH 32.0, MCHC 33.1, RDW Std Deviation 49.1 H, RDW Coeff of Hnady 13.8, Plt Count 270, MPV 11.0, Immature Gran % (Auto) 0.300, Neut % (Auto) 49.8, Lymph % (Auto) 40.6, [place] % (Auto) 5.8, Eos % (Auto) 2.8, Baso % (Auto) 0.7, AbsoluteNeuts (auto) 3.5, Absolute Lymphs (auto) 2.85, Nucleated RBC % 0, Sodium 142, Potassium 3.7, Chloride 108, Carbon Dioxide 24.4, Anion Gap 10, BUN 7, Creatinine 0.49 L, EstimCreat Clear Calc 92.72, Est GFR (MDRD) Non-Af 106, BUN/Creatinine Ratio 14.4, Glucose 99, Calcium 8.9, Phosphorus 3.4, Magnesium 1.9, Total Bilirubin 0.53, AST 13, ALT < 5, Alkaline Phosphatase 80, Total Protein 6.1, Albumin 3.5, Globulin 2.6, Albumin/Globulin Ratio 1.4, TSH 2.270 Physical Exam Const alert, no apparent distress, average body habitus and well nourished Constitutional Narrative: Older, white female, lying in bed, does not appear to be in distress or toxic, mother at bedside, patient is nonverbal at baseline however she does follow commands consistently General Appearance: cooperative HEENT normocephalic and head/scalp atraumatic HEENT Narrative: Dentition is poor, Mallampati is 3, no thrush Resp normal respiratory effort, no retractions, no use of accessory muscles and clearto auscultation bilaterally Auscultation: Negative for rales, rhonchi or wheezes Cardio regular rate, regular rhythm, S1 normal heart sound, S2 normal heart sound, no murmurs, no rub, no gallops and no clicks GI normal to inspection, nondistended, normoactive bowel sounds, soft to palpation and non-tender Extremity no clubbing, cyanosis or edema Extremity Narrative: Extremities upper and lower extremities are contracted with no significant edema, pedal pulses are 2+, radial pulses are 2+ Neuro Neuro Narrative: Is able to move all 4 extremities but limited due to contractures, patient is wheelchair-bound at baseline, nonverbal baseline Speech: Negative for speech normal Psych Psych Narrative: Calm Assessment & Plan Assessment/Plan (1) Hematemesis: PLAN: Plan Hematemesis - Patient with 2 episodes of melena witnessed of hematemesis - No further episodes but hemoglobin 12.1 down from 13.9 - Continue n.p.o. - Continue Protonix IV twice daily - EGD input is pending however I do suspect EGD later today Leukocytosis - Resolved History of PE - Remote - Hold apixaban for now while concern of GI bleed - Will restart apixaban as soon as possible History of Arias's esophagus/GERD - Hold home omeprazole - IV PPI twice daily Hypothyroidism -continue home levothyroxine Seasonal allergies - Continue home loratadine - restart eyedrops at discharge as they are nonformulary here - Continue hydrating drops Cerebral palsy - Currently resides in a longterm Depression - Continue home citalopram - Continue home mirtazapine 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 - Patient is wheelchair-bound at baseline DVT prophylaxis - SCDs while apixaban is on hold CODE STATUS - CODE STATUS under percent confirmed with her mother today at the bedside and she is DNR CCA with no intubation Charges/Coding Visit Charges Inpatient E&M: 09901 Subs Hosp L2 09/06/24 1351 Cosigner Signature (if applicable): CC: ~ Signed [facility]06-30-2025 Consult note [facility] Medical Records Department [address] [place] [address] Anesthesia Postop Eval I 09/06/24 1344 MR#: [id number] Acct: [id number] Name: TONYA FLETCHER Rep #:[id number] : 1960 64 From: Brian VAUGHAN PCP: Dr. Michelle Marroquin MD Status:A DM IN Y Race: C Location: [place] [address] Anesthesia: Postop Eval I Current Vital Signs Temperature: 97 F Pulse Rate: 90 Blood Pressure: 101/50 Respiratory Rate: 16 Pulse Ox: 94 Assessment Airway patent: Yes Spontaneous unlabored respirations: Yes nausea: No Vomiting: No Anesthesia Complication: No Fluid Hydration Crystalloid volume administer (ml): 400 Total IV fluid infused: 400 Progress Note Anesthesia document: Postop Eval 1 completed: Yes 09/06/24 1345 CORE WINDER> Date _ Brian Su CORE WINDER Cosigner Signature: Date CC: ~ Signed [facility]06-30-2025 Procedure note [facility] Medical Records Department [address] [place] [id number] EGD Report MR#: [id number] Acct: [id number] Name: TONYA FLETCHER Rep #:[id number] : 1960 64 From: Stalin Kuhn DO PCP: Dr. Michelle Marroquin MD Status:A DM IN Patient Name: Tonya Fletcher Procedure Date: 09/06/2024 1:13 PM Date of : 1960 Age: 64 Procedure: Upper GI endoscopy Indications: Coffee-ground emesis Providers: Stalin Kuhn DO Medicines: Monitored Anesthesia Care Patient Profile: This is a 64 year old female. Refer to note in patient chart for documentation of history and physical. Patient has symptoms of acute nausea and acute vomiting. Complications: No immediate complications. Procedure: Pre-Anesthesia Assessment: - Prior to the procedure, a History and Physical was performed, and patient medications and allergies were reviewed. The patient is competent. The risks and benefits of the procedure and the sedation options and risks were discussed with the patient. All questions were answered and informed consent was obtained. Patient identification and proposed procedure were verified by the physician in the pre-procedure area. Mental Status Examination: alert and oriented. Airway Examination: normal oropharyngeal airway and neck mobility. Respiratory Examination: clear to auscultation. CV Examination: normal. Prophylactic Antibiotics: The patient does not require prophylactic antibiotics. Prior Anticoagulants: The patient has taken no anticoagulant or antiplatelet agents except for NSAID medication. ASA Grade Assessment: II - A patient with mild systemic disease. After reviewing the risks and benefits, the patient was deemed in satisfactory condition to undergo the procedure. The anesthesia plan was to use monitored anesthesia care (MAC). Immediately prior to administration of medications, the patient was re-assessed for adequacy to receive sedatives. The heart rate, respiratory rate, oxygen saturations, blood pressure, adequacy of pulmonary ventilation, and response to care were monitored throughout the procedure. The physical status of the patient was re-assessed after the procedure. After obtaining informed consent, the endoscope was passed under direct vision. Throughout the procedure, the patient's blood pressure, pulse, and oxygen saturations were monitored continuously. The Endoscope was introduced through the mouth, and advanced to the third part of the duodenum. Small bowel enteroscopy was deemed necessary. The upper GI endoscopy was accomplished without difficulty. The patient tolerated the procedure well. Scope In: 1:29:34 PM Scope Out: 1:33:46 PM Total Procedure Duration Time 0 hours 4 minutes 12 seconds Findings: LA Grade D (one or more mucosal breaks involving at least 75% of esophageal circumference) esophagitis with no bleeding was found 34 to 40 cm from the incisors. There were esophageal mucosal changes secondary to established long-segment Arias's disease present in the middle third of the esophagus and in the lower third of the esophagus. The maximum longitudinal extent of these mucosal changes was 15 cm in length. Mucosa was biopsied with a cold forceps for histology in a targeted manner at intervals of 1 cm in the lower third of the esophagus. One specimen bottle was sent to pathology. Verification of patient identification for the specimen was done. Estimated blood loss was minimal. No gross lesions were noted in the entire examined stomach. A large hiatal hernia was present. No gross lesions were noted in the third portion of the duodenum. Impression: - LA Grade D erosive esophagitis with no bleeding. 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 Biopsied. - No gross lesions in the entire stomach. - Large hiatal hernia. - No gross lesions in the third portion of the duodenum. Recommendation: - [facility] care. - Full liquid diet. - Continue present medications. Procedure Code(s): --- Professional --- 67865, Small intestinal endoscopy, enteroscopy beyond second portion of duodenum, not including ileum; with biopsy, single or multiple CPT copyright 2021 [employer]. All rights reserved. The codes documented in this report are preliminary and upon skid worker review may be revised to meet current compliance requirements. Stalin Kuhn DO 09/06/2024 1:43:16 PM This report has been signed electronically. Number of Addenda: 0 Note Initiated On: 09/06/2024 1:13 PM 09/06/24 1343 Date _ Stalin Kuhn DO Cosigner Signature: Date (if indicated) CC: Dr. Michelle Marroquin MD; Stalin Kuhn DO ~ Date Dictated: 09/06/24 1313 Date Transcribed: Quality Assurance Engineer: RF Signed [facility]06-30-2025 Procedure note [facility] Medical Records Department [address] [place] [address] Operative Report - CC Letter MR#: [id number] Acct: [id number] Name: TONYA FLETCHER Rep #:[id number] : 1960 64 From: Stalin Kuhn DO PCP: Dr. Michelle Marroquin MD Status:A DM IN 09/06/2024 Michelle Marroquin MD [address] [place] [address] [place] [address] Re : Upper GI endoscopy procedure for Tonya Fletcher Dear Dr. Marroquin This procedure was performed on Friday, September 06, 2024. My impressions and recommendations are as follows: Impressions : - LA Grade D erosive esophagitis with no bleeding. 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 Biopsied. - No gross lesions in the entire stomach. - Large hiatal hernia. - No gross lesions in the third portion of the duodenum. Recommendations : - [facility] care. - Full liquid diet. - Continue present medications. My findings are described in the full procedure note, which is enclosed. If I can be of further assistance, please feel free to contact me at . Sincerely, Stalin Kuhn DO 09/06/2024 1:43:16 PM This report has been signed electronically. 09/06/24 1343 Date _ Stalin Kuhn DO Cosigner Signature: Date (if indicated) CC: Dr. Michelle Marroquin MD; Dr. Jeni Ann DO ~ Date Dictated: 09/06/24 1313 Date Transcribed: Quality Assurance Engineer: RF Signed [facility]06-30-2025 Consult note [facility] Medical Records Department [address] [place] [address] Pre-Anesthesia Evaluation 09/06/24 1253 MR#: [id number] Acct: [id number] Name: TONYA FLETCHER Rep #:[id number] : 1960 64 From: Grey Roberts MD PCP: Dr. Michelle Marroquin MD Status:A DM IN Y Race: C Location: MS3 [id number] -[id number] ASA Classification* ASA Classification ASA Classification: 3 Assessment & Plan Anesthesia* Anesthesia Assessment Anesthesia Assessment: Discussed sedation and/or anesthesia options, risks, benefits, and alternatives with patient/parents/legal guardian/POA. Questions invited. The patient/parents/legal guardian/POA seems to understand and agrees to proceedwith anesthesia plan. Reviewed the physical assessment, medical history, allergy history and patient home medications list prior to surgery/procedure/anesthetic and documented any changes. Performed airway and anesthesia risk assessments. Anesthesia Type Anesthesia Type: MAC History Source History Obtained from:: Patient and Chart Anesthesia Focused Assessment* Temperature: 97.8 F Pulse Rate: 84 Blood Pressure: 104/78 Respiratory Rate: 18 Pulse Ox: 94 Oxygen Delivery Method: Room Air Airway Assessment Mouth opens: >3 cm Mallampati Score: IV Teeth Condition: Intact and Missing (Patient missing several teeth.) Neck Range of motion (ROM): Limited ROM (Somewhat decreased extension) Labs Anesthesia Preop lab: CBC WBC 7.0 K/mm3 (4.4-11.0) 09/06/24 05:09/06/24 RBC 3.78 M/mm3 (4.2-5.4) L 09/06/24 05:09/06/24 Hgb 12.2 g/dL (12.0-15.0) 09/06/24 11:25 09/06/24 Hct 37.4 % (37-47) 09/06/24 11:25 09/06/24 Plt Count 270 K/mm3 (150-450) 09/06/24 05:09/06/24 CHEMISTRY Potassium 3.7 mmol/L (3.3-5.1) 09/06/24 05:09/06/24 Sodium 142 mmol/L (133-145) 09/06/24 05:09/06/24 Magnesium 1.9 mg/dL (1.5-2.2) 09/06/24 05:09/06/24 Phosphorus 3.4 mg/dL (2.7-4.5) 09/06/24 05:09/06/24 BUN 7 mg/dL (4-19) 09/06/24 05:09/06/24 Creatinine 0.49 mg/dL (0.70-1.20) L 09/06/24 05: Glucose 99 mg/dL (70-99) 09/06/24 05:31 09/06/24 TSH 2.270 uIU/mL (0.300-4.200) 09/06/24 05:31 08/10 COAG PT 13.6 SECONDS (11.7-14.9) 09/05/24 08:16 Pre-Assessment Diagnosis/Proposed Procedure Planned Operative Procedure(s): EGD, with possible cautery and/or injection therapy. Anesthesia History Anesthesia History - skein yarn drier: Anesthesia History - skein yarn drier Hx Hospitalization No 08/10/24 14:47 Any Problems With Anesthesia No 09/05/24 20:03 Cholinesterase deficiency No 09/05/24 20:03 You/Your Family Experience No 09/05/24 20:03 fever (hyperthermia) with Relationship Recent Exposure to Contagious No 09/05/24 20:03 Disease Does patient have nerve No: neurotransmitter or 09/05/24 20:03 stimulator pacemaker that is not working Patient instructed to have No 09/05/24 20:03 device shut off --Does patient have Pacemaker No 09/06/24 11:42 or ICD? When Was Last Pacemaker Check QUESTION #4 FULL TEXT: You/Your Family Experience fever (hyperthermia) with Anesthesia Last Oral Intake Last Oral intake: Last Oral Intake NPO since 00:00 09/06/24 11:42 Meds taken in AM with sips of No 09/06/24 11:42 water? Meds patient instructed to take am of surgery PONV PONV - skein yarn drier: PONV - skein yarn drier Female HX of Motion Sickness HX of N/V After Surgery Non-Smoker Duration of Surgery greater than 60 minutes Number of Risk Factors PONV Score Height & Weight Height & Weight: Anesthesia: Height & Weight Height 5 ft 09/06/24 12:01 Weight: 61.28 kg 09/06/24 12:01 Body Mass Index (BMI) 26.4 09/06/24 11:42 Respiratory Assessment Respiratory Assessment - skein yarn drier: Respiratory Tract Infection Hx - skein yarn drier Hx Respiratory Tract Infection No 09/05/24 20:03 STOP Sleep Apnea STOP Sleep Apnea - skein yarn drier: STOP Sleep Apnea - skein yarn drier Hx Hypertension Yes 09/06/24 10:19 Hx Sleep Apnea Yes 09/05/24 15:39 CPAP No 09/05/24 15:39 BIPAP No 09/05/24 15:39 Do you snore loudly (louder than talking or can be heard Do you often feel tired/ fatigued/ sleepy during daytime? Has anyone observed you stop breathing during sleep? STOP Results Positive 09/05/24 15:39 QUESTION #5 FULL TEXT : Do you snore loudly (louder than talking or can be heard through closeddoors)? Tobacco Use History Tobacco Use History - skein yarn drier: Tobacco Use History - skein yarn drier Tobacco Use Smoking Status Never smoker 09/05/24 15:39 Hx Tobacco Use No 09/05/24 15:39 Years Smoking Packs Smoked per Day Smoking Cessation Date was within the last 15 years Hx Smoking Cessation Date Hx Smoking Cessation Counseling Hematologic Medial History Hematologic Hx - skein yarn drier: Hematologic Medical Hx - special delivery messenger Hx of Blood Transfusion No 09/05/24 15:39 Hx of Transfusion in last 3 No 09/05/24 15:39 Months Date of Last Transfusion (if within last 3 months) Ever experience any problems No 09/05/24 15:39 with transfusion(s)? Specify any problems Hx of Preganancy in last 3 N/A 09/05/24 15:39 Months Nurse Filling Out Transfusion TWOLF 09/05/24 15:39 & Questions: Date: 09/05/24 09/05/24 15:39 Time: 15:40 09/05/24 15:39 Patient unable to answer at this time (ie. confused, unrespo /Reproduction History /Reproductive History - skein yarn drier: /Reproductive Hx- skein yarn drier Hx Now Gestational Age (in weeks): EDC: Hx Hx Para Hx Section SAB Active Medications Active Medications: Current Medications Generic Name Dose Route Start Last Admin Trade Name Freq PRN Reason Stop Dose Admin Acetaminophen 500 mg 09/05/24 15:19 Acetaminophen 650 Mg/20 Ml Udc PO Q6H PRN fever or pain 1-10 Albuterol/Ipratropium 3 ml 09/05/24 14:12 Ipratropium/Albuterol Sulfate 3 Ml Ampul.Neb INHALATION Q4H PRN shortness of breath or wheezing Artificial Tears 1 drp 09/05/24 14:25 Carboxymethylcellulose Sodium 15 Ml Ophth Drops EACH EYE 5X/DAY PRN dry eye(s) Artificial Tears 1 drp 09/05/24 22:00 09/06/24 08:31 Carboxymethylcellulose Sodium 15 Ml Ophth Drops EACH EYE Not Given TID [facility] Ascorbic Acid 500 mg 09/06/24 08:00 Ascorbic Acid 500 Mg Tablet PO DAILY@0800 [facility] Cholecalciferol 25 mcg 09/06/24 08:00 Cholecalciferol (Vit D3) 25 Mcg Tablet (1,000 Units) PO DAILY@0800 [facility] Citalopram Hydrobromide 10 mg 09/06/24 10:00 Citalopram 10 Mg Tablet PO DAILY [facility] Citalopram Hydrobromide 20 mg 09/06/24 10:00 Citalopram 20 Mg Tablet PO DAILY [facility] Docusate Sodium 100 mg 09/06/24 10:00 Docusate Sodium 100 Mg Capsule PO QODAY [facility] Ferrous Gluconate 324 mg 09/06/24 08:00 Ferrous Gluconate 324 Mg Tablet PO DAILY@0800 [facility] Pantoprazole Sodium 40 mg/ 100 mls @ 300 mls/hr 09/05/24 22:00 09/06/24 11:25 Sodium Chloride IV Infused Q12 STEVO Infusion Sodium Chloride 250 mls @ 15 mls/hr 09/05/24 14:27 09/06/24 11:40 IV 0 mls/hr .[id number] PRN Infusion Saline Flush Sodium Chloride 250 mls @ 15 mls/hr 09/05/24 14:27 IV .[id number] PRN Additional IVPB Infusion Lactated Ringer's 1,000 mls @ 15 mls/hr 09/06/24 12:15 09/06/24 12:25 IV 15 mls/hr .Q48H [facility] Administration Levothyroxine Sodium 50 mcg 09/06/24 06:00 09/06/24 06:22 Levothyroxine 50 Mcg Tablet PO Not Given DAILY@0600 [facility] Loratadine 10 mg 09/06/24 08:00 Loratadine 10 Mg Tablet PO DAILY@0800 [facility] Melatonin 3 mg 09/05/24 14:12 Melatonin 3 Mg Tablet PO QHS PRN PRN INSOMNIA Mirtazapine 7.5 mg 09/05/24 20:00 09/05/24 20:06 Mirtazapine 15 Mg Tablet PO 7.5 mg QHS@2000 STEVO Administration Ondansetron HCl 4 mg 09/05/24 14:12 Ondansetron 4 Mg/2 Ml Vial IV Q8H PRN PRN NAUSEA/VOMITING Sodium Chloride 10 - 40 ml 09/05/24 14:27 09/06/24 11:02 0.9% Saline Lock 10 Ml Syringe IV 10 ml UD PRN Administration SALINE FLUSH PFSH Medical History Diarrhea Nausea Intellectual developmental disorder, severe Urinary incontinence History of aspiration pneumonia Sore throat Hypothyroidism Cerebral palsy History of airway aspiration Health care maintenance Anxiety and depression History of pulmonary embolism Gastroenteritis URI (upper respiratory infection) neurostimulater Pacemaker metal gavi rt leg Hyperlipidemia Insomnia Fecal impaction Barretts esophagus Pulmonary embolism Vitamin D deficiency Allergic rhinitis GERD (gastroesophageal reflux disease) Depression Home Medications ?Medication ?Instructions ?Recorded ?Last Taken ?Type loratadine 10 mg tablet 10 mg PO DAILY@0800 ALLERGIE S 09/10/14 01/02/22 History mirtazapine 7.5 mg tablet 7.5 mg PO QHS@1999 DEPRESSIO N 05/19/17 01/01/22 History azelastine 0.05 % eye drops 0.05 drp EACH EYE BID@08 ,199908/08/18 01/02/22 History DRY EYES apixaban 5 mg tablet 5 mg PO BID BLOOD THINNER 01/02/22 History ascorbic acid (vitamin C) 500 mg 500 mg PO DAILY@0800 SUPPLEMENT 01/02/22 01/02/22 History tablet carboxymethylcellulose sodium 0.5 1 drp EACH EYE TID 1 01/02/22 History % eye drops (Refresh Tears) cholecalciferol (vitamin D3) 25 25 mcg PO DAILY@0800 S UPPLEMENT 01/02/22 01/02/22 History mcg (1,000 unit) chewable tablet (Vitamin D3) ferrous gluconate 324 mg (38 mg 324 mg PO DAILY@0800 S UPPLEMENT 01/02/22 01/02/22 History iron) tablet levothyroxine 50 mcg tablet 50 mcg PO DAILY@0600 THYRO ID 01/02/22 01/02/22 History omeprazole 40 mg capsule,delayed 40 mg PO DAILY@0700 G ERD 01/02/22 01/02/22 History release ondansetron 4 mg disintegrating 4 mg PO TID PRN nausea and 06/13/23 Unknown Rx tablet vomiting #21 tabs GENERAL PROTECTION LOTION 1 dose topical 4X/DAY PRN sk in 07/31/23 Unknown History protection acetaminophen 160 mg/5 mL oral 500 mg PO Q6H PRN fever or pain 07/31/23 Unknown History elixir bisacodyl 10 mg/30 mL enema (Fleet 5 mg ID DAILY PRN c onstipation 07/31/23 Unkno wn History Bisacodyl) bismuth subsalicylate 525 mg/15 mL 1,050 mg PO .4X CLYDE LY PRN diarrhea 07/31/23 Unknown History oral suspension (Pepto-Bismol Max St) carboxymethylcellulose sodium 0.5 1 drp ophthalmic (ey e) 4-6XD PRN 07/31/23 Unknown History % eye drops (Refresh Tears) dry eye(s) citalopram 10 mg tablet 10 mg PO DAILY 07/31/23 Unkn own History citalopram 20 mg tablet 20 mg PO DAILY 07/31/23 Unkn own History ipratropium 0.5 mg-albuterol 3 mg 3 ml inhalation Q4H PRN shortness 07/31/23 Unknown History (2.5 mg base)/3 mL nebulization of breath or wheezing soln terbinafine HCl 1 % topical cream 1 applic topical BID PRN redness 10/08/23 Unknown History irrit docusate sodium 100 mg capsule 100 mg PO Q OTHER DAY # 15 caps 07/03/24 Unknown Rx Allergy/AdvReac Type Severity Reaction Status Date / Time amoxicillin trihydrate (From AdvReac Unknown Verified 08/10/24 14:57 Augmentin) potassium clavulanate (From AdvReac Unknown Verified 08/10/24 14:57 Augmentin) Family History Father Pulmonary embolism Alcoholism Mother CVA (cerebral vascular accident) Surgical History Hx of cataract removal with insertion of prosthetic lens Social History Smoking Status: Never smoker alcohol intake: current alcohol intake frequency: 0-2 drinks per day substance use type: does not use and other details: THC LAST USED ON 07/20/23 seatbelt use: always Review of Systems (Anesthesia) ROS Narrative System reviewed and no additional complaints, except as documented. 09/06/24 1304 jerrell LEVY> Date _ Grey Roberts MD Cosigner Signature: Date CC: ~ Signed [facility]06-30-2025 Progress note [facility] Medical Records Department [address] [place] [address] Progress Note 09/06/24 1219 MR#: [id number] Acct: [id number] Name: TONYA FLETCHER Rep #:[id number] : 1960 64 From: [facility] PCP: Dr. Michelle Marroquin MD Status:A DM IN Location: MS3 [id number] Progress Note 64-year-old female history of MRDD lives in an apartment has caregivers. She has a history of Arias's esophagus. She also has a history of iron deficiencyanemia, on iron and vitamin C. She also hasa history of atrial fibrillation and cardiomyopathy on Eliquis. She is also status post permanent dc cemaker. Asper the POA she started having coffee-ground emesis about a week ago. She came into the ED yesterday because she had another episode of coffee-ground emesis. I was asked to see her for treatment of upper GI bleed. Physical Exam Const alert, no apparent distress, average body habitus and well nourished Constitutional Narrative: Older, white female, lying in bed, does not appear to be in distress or toxic, caregiver at bedside General Appearance: cooperative Eyes conjunctivae normal Eyes Narrative: No scleral icterus Resp normal respiratory effort, no retractions, no use of accessory muscles and clearto auscultation bilaterally Auscultation: Negative for rales, rhonchi or wheezes Cardio regular rate, regular rhythm, S1 normal heart sound, S2 normal heart sound, no murmurs, no rub, no gallops and no clicks GI normal to inspection, nondistended, normoactive bowel sounds, soft to palpation and non-tender Visit Charges Inpatient E&M: 20316 Subs Hosp L2 09/06/24 1222 Stalin Friend DO Cosigner Signature (if applicable): CC: ~ Signed [facility]06-29-2025 History and physical note Author Jeni Ann [facility] Note Date/Time September 05, 2024 3:59 pm [facility] Medical Records Department [address] [place] [address] H&P Exam - Hospitalist 09/05/24 1303 MR#: [id number] Acct: [id number] Name: TONYA FLETCHER Rep #:[id number] : 1960 64 From: Jeni Ann DO PCP: Dr. Michelle Marroquin MD Status:A DM IN Location: TX3 [id number] HPI - General General Date of Admission: 09/05/24 Date of Service: 09/05/24 Chief Complaint: Hematemesis HPI Narrative TONYA FLETCHER, is a 64 F who has a history of MRDD and is nonverbal at baselineand presented to the emergency department at [facility] on 09/05/2024 with caregivers. Evidently, about a week ago they thought she might of had a dark emesis. They saw her primary care physician but she did not have labs done at that time. Today she had another episode that looked black so theybrought her to the emergency department. She is anticoagulated baseline for home with Eliquis for history of pulmonary embolus. History is limited as patient cannot participate in giving any review of systems. Vital signs on presentation showed temperature of 96.0, heart rate 84, respiratory 16, blood pressure was 119/71 and pulse ox 90% room air. CBC showeda leukocytosis white count of 12.1 and a hemoglobin of 13.9 with a normal platelet count. Coags were normal. Chemistry panel was unremarkable other thanmild hyperglycemia with a glucose of 105 that is nonfasting. Liver functions are normal. The initial plan was to recheck her hemoglobin at noon which we did. If there was a drop we are going to admit her if she was stable regarding discharge sure. Unfortunately her hemoglobin dropped about a gram and a half without being given any IV fluids so there was no concern for hemodilution with IV fluids. Given his drop in her chronic ongoing use of Eliquis for PE we elected to admit her. She was given 1 dose of Protonix in the emergency department. ON LICENSE OF [facility] Medical History Diarrhea Nausea Intellectual developmental disorder, severe Urinary incontinence History of aspiration pneumonia Sore throat Hypothyroidism Cerebral palsy History of airway aspiration Health care maintenance Anxiety and depression History of pulmonary embolism Gastroenteritis URI (upper respiratory infection) neurostimulater Pacemaker metal gavi rt leg Hyperlipidemia Insomnia Fecal impaction Barretts esophagus Pulmonary embolism Vitamin D deficiency Allergic rhinitis GERD (gastroesophageal reflux disease) Depression Home Medications ?Medication ?Instructions ?Recorded ?Last Taken ?Type loratadine 10 mg tablet 10 mg PO DAILY@0800 ALLERGIE S 09/10/14 01/02/22 History mirtazapine 7.5 mg tablet 7.5 mg PO QHS@1999 DEPRESSIO N 05/19/17 01/01/22 History azelastine 0.05 % eye drops 0.05 drp EACH EYE BID@0800 08/08/18 01/02/22 History DRY EYES apixaban 5 mg tablet 5 mg PO BID BLOOD THINNER 01/02/22 History ascorbic acid (vitamin C) 500 mg 500 mg PO DAILY@0800 SUPPLEMENT 01/02/22 01/02/22 History tablet carboxymethylcellulose sodium 0.5 1 drp EACH EYE TID 1 01/02/22 History % eye drops (Refresh Tears) cholecalciferol (vitamin D3) 25 25 mcg PO DAILY@0800 S UPPLEMENT 01/02/22 01/02/22 History mcg (1,000 unit) chewable tablet (Vitamin D3) ferrous gluconate 324 mg (38 mg 324 mg PO DAILY@0800 S UPPLEMENT 01/02/22 01/02/22 History iron) tablet levothyroxine 50 mcg tablet 50 mcg PO DAILY@0600 THYRO ID 01/02/22 01/02/22 History omeprazole 40 mg capsule,delayed 40 mg PO DAILY@0700 G ERD 01/02/22 01/02/22 History release ondansetron 4 mg disintegrating 4 mg PO TID PRN nausea and 06/13/23 Unknown Rx tablet vomiting #21 tabs GENERAL PROTECTION LOTION 1 dose topical 4X/DAY PRN sk in 07/31/23 Unknown History protection acetaminophen 160 mg/5 mL oral 500 mg PO Q6H PRN fever or pain 07/31/23 Unknown History elixir bisacodyl 10 mg/30 mL enema (Fleet 5 mg ID DAILY PRN c onstipation 07/31/23 Unknown History Bisacodyl) bismuth subsalicylate 525 mg/15 mL 1,050 mg PO .4X CLYDE LY PRN diarrhea 07/31/23 Unknown History oral suspension (Pepto-Bismol Max St) carboxymethylcellulose sodium 0.5 1 drp ophthalmic (ey e) 4-6XD PRN 07/31/23 Unknown History % eye drops (Refresh Tears) dry eye(s) citalopram 10 mg tablet 10 mg PO DAILY 07/31/23 Unkn own History citalopram 20 mg tablet 20 mg PO DAILY 07/31/23 Unkn own History ipratropium 0.5 mg-albuterol 3 mg 3 ml inhalation Q4H PRN shortness 07/31/23 Unknown History (2.5 mg base)/3 mL nebulization of breath or wheezing soln terbinafine HCl 1 % topical cream 1 applic topical BID PRN redness 10/08/23 Unknown History irrit docusate sodium 100 mg capsule 100 mg PO Q OTHER DAY # 15 caps 07/03/24 Unknown Rx Allergy/AdvReac Type Severity Reaction Status Date / Time amoxicillin trihydrate (From AdvReac Unknown Verified 08/10/24 14:57 Augmentin) potassium clavulanate (From AdvReac Unknown Verified 08/10/24 14:57 Augmentin) Family History Father Pulmonary embolism Alcoholism Mother CVA (cerebral vascular accident) Surgical History Hx of cataract removal with insertion of prosthetic lens Social History Smoking Status: Never smoker alcohol intake: current alcohol intake frequency: 0-2 drinks per day substance use type: does not use and other details: THC LAST USED ON 07/20/23 seatbelt use: always ROS Review of Systems ROS Unobtainable: due to mental condition Vital Signs Vital Signs Vital Signs: 09/05/24 07:29 09/05/24 09:28 09/05/24 11:00 Temperature 96.0 F L Temperature Source Temporal Pulse Rate 84 81 72 Respiratory Rate 16 22 H 17 Blood Pressure 119/71 101/57 L Blood Pressure Mean 87 71 Pulse Ox 98 97 95 Oxygen Delivery Method Room Air Room Air Physical Exam Const alert, no apparent distress, average body habitus and well nourished Constitutional Narrative: Older, white female, lying in bed, does not appear to be in distress or toxic, caregiver at bedside General Appearance: cooperative HEENT normocephalic and head/scalp atraumatic HEENT Narrative: Mallampati is 3, edentulous, no thrush Eyes conjunctivae normal Eyes Narrative: No scleral icterus Resp normal respiratory effort, no retractions, no use of accessory muscles and clearto auscultation bilaterally Auscultation: Negative for rales, rhonchi or wheezes Cardio regular rate, regular rhythm, S1 normal heart sound, S2 normal heart sound, no murmurs, no rub, no gallops and no clicks GI normal to inspection, nondistended, normoactive bowel sounds, soft to palpation and non-tender Extremity no clubbing, cyanosis or edema Extremity Narrative: Extremities upper and lower extremities are contracted Neuro Neuro Narrative: Is able to move all 4 extremities but limited due to contractures, patient is wheelchair-bound at baseline Speech: Negative for speech normal Psych Psych Narrative: Calm Results Lab / Micro Data 09/05/24 14:55 09/05/24 08:16 Labs: Laboratory Results - last 24 hr 09/05/24 08:16: WBC 12.1 H, RBC 4.34, Hgb 13.9, Hct 41.2, MCV 94.9, MCH 32.0, MCHC 33.7, RDW Std Deviation 47.7 H, RDW Coeff of Handy 13.5, Plt Count 263, MPV 11.2, Immature Gran % (Auto) 0.200, Neut % (Auto) 62.1, Lymph % (Auto) 28.4, [place] % (Auto) 6.0, Eos % (Auto) 2.5, Baso % (Auto) 0.8, Absolute Neuts (auto) 7.5, Absolute Lymphs (auto) 3.45, Nucleated RBC % 0, Sodium 140, Potassium 4.2, Chloride 104, Carbon Dioxide 24.1, Anion Gap 12, BUN 10, Creatinine 0.47 L, Est GFR (MDRD) Non-Af 107, BUN/Creatinine Ratio 22.1 H, Glucose 105 H, Calcium 9.0, Total Bilirubin 0.39, AST 15, ALT 5, Alkaline Phosphatase 86, Total Protein 6.9,Albumin 3.8, Globulin 3.1, Albumin/Globulin Ratio 1.2, Blood Type Cancelled, Antibody Screen Cancelled 09/05/24 09:15: Blood Type A POSITIVE, Antibody Screen NEGATIVE 09/05/24 12:25: Hgb 12.6, Hct 36.8 L Assessment & Plan Assessment/Plan (1) Hematemesis: PLAN: Plan Hematemesis - Patient with 2 episodes of melena witnessed of hematemesis - Initial hemoglobin was 13.9 however repeat was down to 12.6 and the patient was not given any fluids that would cause hemodilution - With the drop we felt admission was more prudent since she is on anticoagulation for PE at baseline and she is not reliable historian - Clear liquids for now and n.p.o. after midnight - Protonix IV twice daily - Consult GI--> patient has Arias's esophagus at baseline Leukocytosis - Mild - Suspect reactive - Differential is normal - Will repeat in a.m. History of PE - Remote - Hold apixaban for now while concern of GI bleed - Will restart apixaban as soon as possible History of Arias's esophagus/GERD - Hold home omeprazole - IV PPI twice daily Hypothyroidism -continue home levothyroxine Seasonal allergies - Continue home loratadine next-restart eyedrops at discharge as they are nonformulary here - Continue hydrating drops Cerebral palsy - Currently resides in a longterm Depression - Continue home citalopram - Continue home mirtazapine 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 - Patient is wheelchair-bound at baseline DVT prophylaxis - SCDs while apixaban is on hold CODE STATUS - Unclear however previous CODE STATUS here is a DNR CCA with no intubation Charges/Coding Visit Charges Inpatient E&M: 94096 Init Hosp L2 09/05/24 1559 <Electronically signed by Jeni Ann DO> Cosigner Signature (if applicable): CC: Dr. Michelle Marroquin MD; Dr. Jeni Ann DO~ Signed [facility] Work Phone: [phone] History and physical note [facility] Medical Records Department [address] [place] [address] H&P Exam - Hospitalist 09/05/24 1303 MR#: [id number] Acct: [id number] Name: TONYA FLETCHER Rep #:[id number] : 1960 64 From: Jeni Ann DO PCP: Dr. Michelle Marroquin MD Status:A DM IN Location[place] [facility] [place]-5 HPI - General General Date of Admission: 09/05/24 Date of Service: 09/05/24 Chief Complaint: Hematemesis HPI Narrative TONYA FLETCHER, is a 64 F who has a history of MRDD and is nonverbal at baselineand presented to the emergency department at [facility] on 09/05/2024 with caregivers. Evidently, about a week ago they thought she might of had a dark emesis. They saw her primary care physician but she did not have labs done at that time. Today she had another episode that looked black so theybrought her to the emergency department. She is anticoagulated baseline for home with Eliquis for history ofpulmonary embolus. History is limited as patient cannot participate in giving any review of systems. Vital signs on presentation showed temperature of 96.0, heart rate 84, respiratory 16, blood pressure was 119/71 and pulse ox 90% room air. CBC showeda leukocytosis white count of 12.1 and a hemoglobin of 13.9 with a normal platelet count. Coags were normal. Chemistry panel was unremarkable other thanmild hyperglycemia with a glucose of 105 that is nonfasting. Liver functions are normal. The initial plan was to recheck her hemoglobin at noon which we did. If there was a drop we are going to admit her if she was stable regarding discharge sure. Unfortunately her hemoglobin dropped about a gram and a half without being given any IV fluids so there was no concern for hemodilution withIV fluids. Given his drop in her chronic ongoing use of Eliquis for PE we elected to admit her. She was given 1 dose of Protonix in the emergency department. ON LICENSE OF [facility] Medical History Diarrhea Nausea Intellectual developmental disorder, severe Urinary incontinence History of aspiration pneumonia Sore throat Hypothyroidism Cerebral palsy History of airway aspiration Health care maintenance Anxiety and depression History of pulmonary embolism Gastroenteritis URI (upper respiratory infection) neurostimulater Pacemaker metal gavi rt leg Hyperlipidemia Insomnia Fecal impaction Barretts esophagus Pulmonary embolism Vitamin D deficiency Allergic rhinitis GERD (gastroesophageal reflux disease) Depression Home Medications ?Medication ?Instructions ?Recorded ?Last Taken ?Type loratadine 10 mg tablet 10 mg PO DAILY@0800 ALLERGIE S 09/10/14 01/02/22 History mirtazapine 7.5 mg tablet 7.5 mg PO QHS@1999 DEPRESSIO N 05/19/17 01/01/22 History azelastine 0.05 % eye drops 0.05 drp EACH EYE BID@0800 ,199908/08/18 01/02/22 History DRY EYES apixaban 5 mg tablet 5 mg PO BID BLOOD THINNER 01/02/22 History ascorbic acid (vitamin C) 500 mg 500 mg PO DAILY@0800 SUPPLEMENT 01/02/22 01/02/22 History tablet carboxymethylcellulose sodium 0.5 1 drp EACH EYE TID 1 01/02/22 History % eye drops (Refresh Tears) cholecalciferol (vitamin D3) 25 25 mcg PO DAILY@0800 S UPPLEMENT 01/02/22 01/02/22 History mcg (1,000 unit) chewable tablet (Vitamin D3) ferrous gluconate 324 mg (38 mg 324 mg PO DAILY@0800 S UPPLEMENT 01/02/22 01/02/22 History iron) tablet levothyroxine 50 mcg tablet 50 mcg PO DAILY@0600 THYRO ID 01/02/22 01/02/22 History omeprazole 40 mg capsule,delayed 40 mg PO DAILY@0700 G ERD 01/02/22 01/02/22 History release ondansetron 4 mg disintegrating 4 mg PO TID PRN nausea and 06/13/23 Unknown Rx tablet vomiting #21 tabs GENERAL PROTECTION LOTION 1 dose topical 4X/DAY PRN sk in 07/31/23 Unknown History protection acetaminophen 160 mg/5 mL oral 500 mg PO Q6H PRN fever or pain 07/31/23 Unknown History elixir bisacodyl 10 mg/30 mL enema (Fleet 5 mg ID DAILY PRN c onstipation 07/31/23 Unknown History Bisacodyl) bismuth subsalicylate 525 mg/15 mL 1,050 mg PO .4X CLYDE LY PRN diarrhea 07/31/23 Unknown History oral suspension (Pepto-Bismol Max St) carboxymethylcellulose sodium 0.5 1 drp ophthalmic (ey e) 4-6XD PRN 07/31/23 Unknown History % eye drops (Refresh Tears) dry eye(s) citalopram 10 mg tablet 10 mg PO DAILY 07/31/23 Unkn own History citalopram 20 mg tablet 20 mg PO DAILY 07/31/23 Unkn own History ipratropium 0.5 mg-albuterol 3 mg 3 ml inhalation Q4H PRN shortness 07/31/23 Unknown History (2.5 mg base)/3 mL nebulization of breath or wheezing soln terbinafine HCl 1 % topical cream 1 applic topical BID PRN redness 10/08/23 Unknown History irrit docusate sodium 100 mg capsule 100 mg PO Q OTHER DAY # 15 caps 07/03/24 Unknown Rx Allergy/AdvReac Type Severity Reaction Status Date / Time amoxicillin trihydrate (From AdvReac Unknown Verified 08/10/24 14:57 Augmentin) potassium clavulanate (From AdvReac Unknown Verified 08/10/24 14:57 Augmentin) Family History Father Pulmonary embolism Alcoholism Mother CVA (cerebral vascular accident) Surgical History Hx of cataract removal with insertion of prosthetic lens Social History Smoking Status: Never smoker alcohol intake: current alcohol intake frequency: 0-2 drinks per day substance use type: does not use and other details: THC LAST USED ON 07/20/23 seatbelt use: always ROS Review of Systems ROS Unobtainable: due to mental condition Vital Signs Vital Signs Vital Signs: 09/05/24 07:29 09/05/24 09:28 09/05/24 11:00 Temperature 96.0 F L Temperature Source Temporal Pulse Rate 84 81 72 Respiratory Rate 16 22 H 17 Blood Pressure 119/71 101/57 L Blood Pressure Mean 87 71 Pulse Ox 98 97 95 Oxygen Delivery Method Room Air Room Air Physical Exam Const alert, no apparent distress, average body habitus and well nourished Constitutional Narrative: Older, white female, lying in bed, does not appear to be in distress or toxic, caregiver at bedside General Appearance: cooperative HEENT normocephalic and head/scalp atraumatic HEENT Narrative: Mallampati is 3, edentulous, no thrush Eyes conjunctivae normal Eyes Narrative: No scleral icterus Resp normal respiratory effort, no retractions, no use of accessory muscles and clearto auscultation bilaterally Auscultation: Negative for rales, rhonchi or wheezes Cardio regular rate, regular rhythm, S1 normal heart sound, S2 normal heart sound, no murmurs, no rub, no gallops and no clicks GI normal to inspection, nondistended, normoactive bowel sounds, soft to palpation and non-tender Extremity no clubbing, cyanosis or edema Extremity Narrative: Extremities upper and lower extremities are contracted Neuro Neuro Narrative: Is able to move all 4 extremities but limited due to contractures, patient is wheelchair-bound at baseline Speech: Negative for speech normal Psych Psych Narrative: Calm Results Lab / Micro Data 09/05/24 14:55 09/05/24 08:16 Labs: Laboratory Results - last 24 hr 09/05/24 08:16: WBC 12.1 H, RBC 4.34, Hgb 13.9, Hct 41.2, MCV 94.9, MCH 32.0, MCHC 33.7, RDW Std Deviation 47.7 H, RDW Coeff of Handy 13.5, Plt Count 263, MPV 11.2, Immature Gran % (Auto) 0.200, Neut %(Auto) 62.1, Lymph % (Auto) 28.4, [place] % (Auto) 6.0, Eos % (Auto) 2.5, Baso % (Auto) 0.8, Absolute Neuts (auto) 7.5, Absolute Lymphs (auto) 3.45, Nucleated RBC % 0, Sodium 140, Potassium 4.2, Chloride 104, Carbon Dioxide 24.1, Anion Gap 12, BUN 10, Creatinine 0.47 L, Est GFR (MDRD) Non-Af 107, BUN/Creatinine Ratio 22.1 H, Glucose 105 H, Calcium 9.0, Total Bilirubin 0.39, AST 15, ALT 5, Alkaline Phosphatase 86, Total Protein 6.9,Albumin 3.8, Globulin 3.1, Albumin/Globulin Ratio 1.2, Blood Type Cancelled, Antibody Screen Cancelled 09/05/24 09:15: Blood Type A POSITIVE, Antibody Screen NEGATIVE 09/05/24 12:25: Hgb 12.6, Hct 36.8 L Assessment & Plan Assessment/Plan (1) Hematemesis: PLAN: Plan Hematemesis - Patient with 2 episodes of melena witnessed of hematemesis - Initial hemoglobin was 13.9 however repeat was down to 12.6 and the patient was not given any fluids that would cause hemodilution - With the drop we felt admission was more prudent since she is on anticoagulation for PE at baseline and she is not reliable historian - Clear liquids for now and n.p.o. after midnight - Protonix IV twice daily - Consult GI--> patient has Arias's esophagus at baseline Leukocytosis - Mild - Suspect reactive - Differential is normal - Will repeat in a.m. History of PE - Remote - Hold apixaban for now while concern of GI bleed - Will restart apixaban as soon as possible History of Arias's esophagus/GERD - Hold home omeprazole - IV PPI twice daily Hypothyroidism -continue home levothyroxine Seasonal allergies - Continue home loratadine next-restart eyedrops at discharge as they are nonformulary here - Continue hydrating drops Cerebral palsy - Currently resides in a longterm Depression - Continue home citalopram - Continue home mirtazapine 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 - Patient is wheelchair-bound at baseline DVT prophylaxis - SCDs while apixaban is on hold CODE STATUS - Unclear however previous CODE STATUS here is a DNR CCA with no intubation Charges/Coding Visit Charges Inpatient E&M: 01450 Init Hosp L2 09/05/24 4415 Cosigner Signature (if applicable): CC: Dr. Michelle Marroquin MD; Dr. Jeni Ann, DO~ Signed [facility]06-29-2025 Discharge summary Author Dominguez Bolton [facility] Note Date/Time September 05, 2024 1:13 pm [facility] Medical Records Department [address] [place] [address] Emergency Department Summary 09/05/24 MR#: [id number] Acct: [id number] Name: TONYA FLETCHER Rep #:[id number] : 1960 64 From: Dominguez Bolton MD PCP: Dr. Michelle Marroquin MD Status:R EG ER Location: ED HPI HPI - GI History of Present Illness Chief Complaint: GI Bleed Informant: patient and other (Accompanied by a caregiver who gives the history. Patient has limited speech abilities.) Abdominal Pain/Flank Pain Onset: Today Current Severity: Mild Maximum Severity: Mild Nausea/Vomiting/Emesis GI Symptom: Positive for Nausea and Vomiting (X 1 today. Coffee-ground material.) Severity: Mild Diarrhea/Melena/Hematochezia GI Symptom: Negative for Diarrhea, Melena or Hematochezia Associated Symptoms Associated Symptoms: Negative for Dysuria or Frequency Narrative Narrative: 64-year-old female history of MRDD lives in an apartment has caregivers. 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 She has a pacemaker. Reportedly 1 week ago they thought she might add some dark emesis. Saw her primary care physician. Did not have the labs done at that time. Today had another episode of emesis that looked black. No known history of GI bleed. No recent melena that is known. She denies any abdominal pain. Prior similar symptoms: No Recent Illness/Hospitalization: No PFSH PFSH Medical History Diarrhea Nausea Intellectual developmental disorder, severe Urinary incontinence History of aspiration pneumonia Sore throat Hypothyroidism Cerebral palsy History of airway aspiration Health care maintenance Anxiety and depression History of pulmonary embolism Gastroenteritis URI (upper respiratory infection) neurostimulater Pacemaker metal gavi rt leg Hyperlipidemia Insomnia Fecal impaction Barretts esophagus Pulmonary embolism Vitamin D deficiency Allergic rhinitis GERD (gastroesophageal reflux disease) Depression Home Medications ?Medication ?Instructions ?Recorded ?Last Taken ?Type loratadine 10 mg tablet 10 mg PO DAILY@0800 ALLERGIE S 09/10/14 01/02/22 History mirtazapine 7.5 mg tablet 7.5 mg PO QHS@1999 DEPRESSIO N 05/19/17 01/01/22 History azelastine 0.05 % eye drops 0.05 drp EACH EYE BID@0800 ,199908/08/18 01/02/22 History DRY EYES apixaban 5 mg tablet 5 mg PO BID BLOOD THINNER 01/02/22 History ascorbic acid (vitamin C) 500 mg 500 mg PO DAILY@0800 SUPPLEMENT 01/02/22 01/02/22 History tablet carboxymethylcellulose sodium 0.5 1 drp EACH EYE TID 1 01/02/22 History % eye drops (Refresh Tears) cholecalciferol (vitamin D3) 25 25 mcg PO DAILY@0800 S UPPLEMENT 01/02/22 01/02/22 History mcg (1,000 unit) chewable tablet (Vitamin D3) ferrous gluconate 324 mg (38 mg 324 mg PO DAILY@0800 S UPPLEMENT 01/02/22 01/02/22 History iron) tablet levothyroxine 50 mcg tablet 50 mcg PO DAILY@0600 THYRO ID 01/02/22 01/02/22 History omeprazole 40 mg capsule,delayed 40 mg PO DAILY@0700 G ERD 01/02/22 01/02/22 History release ondansetron 4 mg disintegrating 4 mg PO TID PRN nausea and 06/13/23 Unknown Rx tablet vomiting #21 tabs GENERAL PROTECTION LOTION 1 dose topical 4X/DAY PRN sk in 07/31/23 Unknown History protection acetaminophen 160 mg/5 mL oral 500 mg PO Q6H PRN fever or pain 07/31/23 Unknown History elixir bisacodyl 10 mg/30 mL enema (Fleet 5 mg ID DAILY PRN c onstipation 07/31/23 Unknown History Bisacodyl) bismuth subsalicylate 525 mg/15 mL 1,050 mg PO .4X CLYDE LY PRN diarrhea 07/31/23 Unknown History oral suspension (Pepto-Bismol Max St) carboxymethylcellulose sodium 0.5 1 drp ophthalmic (ey e) 4-6XD PRN 07/31/23 Unknown History % eye drops (Refresh Tears) dry eye(s) citalopram 10 mg tablet 10 mg PO DAILY 07/31/23 Unkn own History citalopram 20 mg tablet 20 mg PO DAILY 07/31/23 Unkn own History ipratropium 0.5 mg-albuterol 3 mg 3 ml inhalation Q4H PRN shortness 07/31/23 Unknown History (2.5 mg base)/3 mL nebulization of breath or wheezing soln terbinafine HCl 1 % topical cream 1 applic topical BID PRN redness 10/08/23 Unknown History irrit docusate sodium 100 mg capsule 100 mg PO Q OTHER DAY # 15 caps 07/03/24 Unknown Rx Allergy/AdvReac Type Severity Reaction Status Date / Time amoxicillin trihydrate (From AdvReac Unknown Verified 08/10/24 14:57 Augmentin) potassium clavulanate (From AdvReac Unknown Verified 08/10/24 14:57 Augmentin) Family History Father Pulmonary embolism Alcoholism Mother CVA (cerebral vascular accident) Surgical History Hx of cataract removal with insertion of prosthetic lens Social History Smoking Status: Never smoker alcohol intake: current alcohol intake frequency: 0-2 drinks per day substance use type: does not use and other details: THC LAST USED ON 07/20/23 seatbelt use: always ROS ROS ED ROS Narrative Nausea and vomiting x 1 today. No recent illness. No fever. Review of Systems ROS Unobtainable: other Details: Limited due to the patient's limited speech capability. Constitutional Constitutional ED: Denies chills or fever(s) ENT ENT ED: Denies ear pain Cardiovascular Cardiovascular: Denies chest pain Respiratory/Chest Respiratory/Chest: Denies cough or dyspnea Gastrointestinal Gastrointestinal: Reports nausea and vomiting; Denies abdominal pain, constipation, diarrhea or melena Genitourinary Genitourinary ED: Denies dysuria or hematuria Musculoskeletal Musculoskeletal: Denies arthralgias Integumentary Denies abscess Neurologic Neurologic: Denies headache(s) Psychiatric Psychiatric: Denies anxiety Endocrine Endocrinology: Denies polydipsia Hematologic/Lymphatic Hematologic/Lymphatic: Denies easy bleeding Allergic/Immunologic Allergic/Immunologic ED: Denies mouth swelling EXAM Physical Exam Narrative Exam Narrative: 64-year-old female sitting upright in bed. Nurses in the room. Caregiver in the room. Vital signs are stable awaiting a blood pressure. H EENT exam pupilsround reactive light. Moist mucous membranes. Poor dentition. Neck nontender no JVD. Lungs clear to auscultation bilaterally. Heart regular rhythm rate about 84 no murmur. Chest wall ribs nontender. Abdomen soft nontender. Nondistended. Normal bowel sounds. No peritoneal signs. Moving all 4 extremities. Nontender deformity. Back nontender. Neurologically. Patient isawake. Her eyes are open. She is alert. She can answer limited questions. Follow limited commands. Const Vital Signs: 09/05/24 07:29 09/05/24 09:28 09/05/24 11:00 Temperature 96.0 F L Temperature Source Temporal Pulse Rate 84 81 72 Respiratory Rate 16 22 H 17 Blood Pressure 119/71 101/57 L Blood Pressure Mean 87 71 Pulse Ox 98 97 95 Oxygen Delivery Method Room Air Room Air 09/05/24 13:00 Temperature Temperature Source Pulse Rate 78 Respiratory Rate 20 H Blood Pressure 114/64 Blood Pressure Mean 78 Pulse Ox 99 Oxygen Delivery Method Room Air Positive well nourished and well developed; Negative for cachectic, contracturesor unkempt General Appearance ED: well developed and NAD; Negative for unkempt, cachectic, contractures or pallor Nutritional Appearance: Negative for cachectic HEENT Reports moist mucous membranes normocephalic and atraumatic Eyes PERRL and EOMs intact bilaterally Neck no lymphadenopathy, supple and no JVD Resp normal respiratory effort and clear to auscultation bilaterally Cardio regular rate, regular rhythm, S1 normal heart sound, S2 normal heart sound and no murmurs Rate: Negative for bradycardia or tachycardic Rhythm: Negative for abnormal rhythm GI non-tender, non-distended and no masses Inspection: Negative for abdominal distention Auscultation: normoactive bowel sounds Palpation: soft; Negative for tender, guarding or rebound tenderness present Back/Spine no CVA tenderness General Back: Negative for CVA tenderness Cervical Spine: Negative for cervical spine tenderness Thoracic Spine / Upper Back: Negative for thoracic spinal tenderness Lumbar Spine / Lower Back: Negative for lumbar spinal tenderness Extremity full ROM Neuro moves all extremities Sensorium / Orientation: alert and oriented to person Motor Exam: strength 5/5 throughout Psych mental status grossly normal and thought process normal Appearance: Negative for unkempt Skin no wounds General Skin Exam: Negative for jaundice or pallor Lesions: no lesions Rashes: no rashes MDM MDM MDM Narrative Medical decision making narrative: 64-year-old female black emesis that may be an upper GI bleed could also be from her being on iron and/or Pepto-Bismol. She is on the blood thinner Eliquis. Screening labs to be obtained. She does not need any imaging. She will be typed and screened. She will be treated with Protonix in case this is an upper GI bleed. I did do a rectal exam on the patient around 8:50 AM. Both her caregiver and mynurse was present in the room. There was really no loose stool so there was notany melena and there was nothing to put on a Hemoccult stick. Repeat exam patient is doing well at 1 PM. However her repeat H&H did drop her initial hemoglobin was 13.9 now is 12.6 hematocrit 1 from 41-36. Hospitalist I feel she needs to be admitted. She will be admitted to [facility]. She has already been started on Protonix from earlier in this evaluation. Admission forpossible upper GI bleed. History & Record Review Discussion w/independent historian: Patient and Other (Caregiver that is with her.) Additional record(s) reviewed:: Prior inpatient record, Prior outpatient record,Prior ED visit and Prior labs Lab Data Attestation: I reviewed the patient's lab results. Lab results narrative: CBC shows a white count of 12.1. H&H of 13.9 and 41.2 which is her baseline. Platelets 263. Labs: Laboratory Results - last 24 hr 09/05/24 09/05/24 09/05/24 08:16 09:15 12:25 WBC 12.1 H RBC 4.34 Hgb 13.9 12.6 Hct 41.2 36.8 L MCV 94.9 MCH 32.0 MCHC 33.7 RDW Std Deviation 47.7 H RDW Coeff of Handy 13.5 Plt Count 263 MPV 11.2 Immature Gran % (Auto) 0.200 Neut % (Auto) 62.1 Lymph % (Auto) 28.4 [place] % (Auto) 6.0 Eos % (Auto) 2.5 Baso % (Auto) 0.8 Absolute Neuts (auto) 7.5 Absolute Lymphs (auto) 3.45 Nucleated RBC % 0 Sodium 140 Potassium 4.2 Chloride 104 Carbon Dioxide 24.1 Anion Gap 12 BUN 10 Creatinine 0.47 L Est GFR (MDRD) Non-Af 107 BUN/Creatinine Ratio 22.1 H Glucose 105 H Calcium 9.0 Total Bilirubin 0.39 AST 15 ALT 5 Alkaline Phosphatase 86 Total Protein 6.9 Albumin 3.8 Globulin 3.1 Albumin/Globulin Ratio 1.2 Blood Type Cancelled A POSITIVE Antibody Screen Cancelled NEGATIVE Discharge Plan Triage Chief Complaint: GI Bleed ED Provider: Dominguez Bolton Dx/Rx/DC Orders Clinical Impression: Acute upper gastrointestinal bleeding, Chronic anticoagulation, History of Arias esophagus Prescriptions: No Action citalopram 20 mg tablet 20 mg PO DAILY Rx Instructions: TAKE WITH 10 MG TAB TO = 30 MG DAILY citalopram 10 mg tablet 10 mg PO DAILY Rx Instructions: TAKE WITH 20 MG TAB TO =30 MG DAILY ipratropium-albuterol 0.5 mg-3 mg(2.5 mg base)/3 mL solution for nebulization 3 ml inhalation Q4H PRN (Reason: shortness of breath or wheezing) Pepto-Bismol Max St 525 mg/15 mL suspension 1,050 mg PO .4X DAILY PRN Rx Instructions: FOR UPSET STOMACH; do not exceed 8 doses in a 24 hour period acetaminophen 160 mg/5 mL elixir 500 mg PO Q6H PRN Rx Instructions: PAIN OR FEVER>100.1 GENERAL PROTECTION LOTION topical Rx Instructions: APPLY BEFORE SUN EXPOSURE AND REAPPLY NECESSARY Fleet Bisacodyl 10 mg/30 mL enema 5 mg ID DAILY PRN Rx Instructions: ON DAY FIVE WITHOUT A BOWEL MOVEMENT carboxymethylcellulose sodium [Refresh Tears] 0.5 % drops 1 drp ophthalmic (eye) 4-6XD PRN Rx Instructions: COMPLAINT OF DRY EYES terbinafine HCl 1 % cream 1 applic topical BID PRN Rx Instructions: APPLY UNDER BREAST OR IN SKIN FOLDS FOR REDNESS clindamycin HCl 300 mg capsule 300 mg PO TID Qty: 21 0RF loratadine 10 MG tablet 10 mg PO DAILY@0800 mirtazapine 7.5 MG tablet 7.5 mg PO QHS@1999 azelastine 6 ML drops 0.05 drp EACH EYE BID@08,1999 Patient Comments: PLACE (1) DROP INTO EACH EYE TWICE DAILY NEEDEDFOR DRY EYE apixaban 5 MG tablet 5 mg PO BID omeprazole 40 mg Capsule,Delayed Release(Dr/Ec) 40 mg PO DAILY@0700 levothyroxine 50 mcg tablet 50 mcg PO DAILY@0600 cholecalciferol (vitamin D3) [Vitamin D3] 25 mcg (1,000 unit) Tablet,Chewable 25 mcg PO DAILY@0800 ascorbic acid (vitamin C) 500 MG tablet 500 mg PO DAILY@0800 ferrous gluconate 324 MG tablet 324 mg PO DAILY@0800 carboxymethylcellulose sodium [Refresh Tears] 0.5 % Drops 1 drp EACH EYE TID ondansetron 4 mg tablet,disintegrating 4 mg PO TID PRN (Reason: nausea and vomiting) Qty: 21 0RF hydrocodone-acetaminophen 5-325 mg tablet 1 tab PO Q6H PRN PRN (Reason: pain, severe) 3 Days Qty: 10 0RF guaifenesin 100 mg/5 mL liquid 200 mg PO Q4H PRN (Reason: congestion) Qty: 1000 0RF Rx Instructions: COUGH OR THICK PHLEGM/SECRETIONS docusate sodium 100 mg capsule 100 mg PO Q OTHER DAY Qty: 15 5RF Primary Care Provider: Michelle Marroquin Referrals: Michelle Marroquin MD [Primary Care Provider] - Print Language: Angolan Disposition Dis[facility] What to do if you have Problems For any increased pain, shortness of breath, bleeding, nausea or vomiting, chestpain, or any unexpected problems, contact your Primary Care Provider. Call [facility] ([phone]) or report to the closest Emergency Room. Call 911 if necessary. 09/05/24 1313 <Electronically signed by Dominguez Bolton MD> Cosigner Signature (if applicable): CC: Dr. Michelle Marroquin MD ~ Signed [facility] Work Phone: [phone] Discharge summary Author Dominguez Bolton [facility] Note Date/Time September 05, 2024 1:13 pm [facility] Medical Records Department [address] [place] [address] Emergency Department Summary 09/05/24 MR#: [id number] Acct: [id number] Name: TONYA FLETCHER Rep #:[id number] : 1960 64 From: Dominguez Bolton MD PCP: Dr. Michelle Marroquin MD Status:R EG ER Location: ED HPI HPI - GI History of Present Illness Chief Complaint: GI Bleed Informant: patient and other (Accompanied by a caregiver who gives the history. Patient has limited speech abilities.) Abdominal Pain/Flank Pain Onset: Today Current Severity: Mild Maximum Severity: Mild Nausea/Vomiting/Emesis GI Symptom: Positive for Nausea and Vomiting (X 1 today. Coffee-ground material.) Severity: Mild Diarrhea/Melena/Hematochezia GI Symptom: Negative for Diarrhea, Melena or Hematochezia Associated Symptoms Associated Symptoms: Negative for Dysuria or Frequency Narrative Narrative: 64-year-old female history of MRDD lives in an apartment has caregivers. 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 She has a pacemaker. Reportedly 1 week ago they thought she might add some dark emesis. Saw her primary care physician. Did not have the labs done at that time. Today had another episode of emesis that looked black. No known history of GI bleed. No recent melena that is known. She denies any abdominal pain. Prior similar symptoms: No Recent Illness/Hospitalization: No PFSH PFSH Medical History Diarrhea Nausea Intellectual developmental disorder, severe Urinary incontinence History of aspiration pneumonia Sore throat Hypothyroidism Cerebral palsy History of airway aspiration Health care maintenance Anxiety and depression History of pulmonary embolism Gastroenteritis URI (upper respiratory infection) neurostimulater Pacemaker metal gavi rt leg Hyperlipidemia Insomnia Fecal impaction Barretts esophagus Pulmonary embolism Vitamin D deficiency Allergic rhinitis GERD (gastroesophageal reflux disease) Depression Home Medications ?Medication ?Instructions ?Recorded ?Last Taken ?Type loratadine 10 mg tablet 10 mg PO DAILY@0800 ALLERGIE S 09/10/14 01/02/22 History mirtazapine 7.5 mg tablet 7.5 mg PO QHS@1999 DEPRESSIO N 05/19/17 01/01/22 History azelastine 0.05 % eye drops 0.05 drp EACH EYE BID@0800 ,199908/08/18 01/02/22 History DRY EYES apixaban 5 mg tablet 5 mg PO BID BLOOD THINNER 01/02/22 History ascorbic acid (vitamin C) 500 mg 500 mg PO DAILY@0800 SUPPLEMENT 01/02/22 01/02/22 History tablet carboxymethylcellulose sodium 0.5 1 drp EACH EYE TID 1 01/02/22 History % eye drops (Refresh Tears) cholecalciferol (vitamin D3) 25 25 mcg PO DAILY@0800 S UPPLEMENT 01/02/22 01/02/22 History mcg (1,000 unit) chewable tablet (Vitamin D3) ferrous gluconate 324 mg (38 mg 324 mg PO DAILY@0800 S UPPLEMENT 01/02/22 01/02/22 History iron) tablet levothyroxine 50 mcg tablet 50 mcg PO DAILY@0600 THYRO ID 01/02/22 01/02/22 History omeprazole 40 mg capsule,delayed 40 mg PO DAILY@0700 G ERD 01/02/22 01/02/22 History release ondansetron 4 mg disintegrating 4 mg PO TID PRN nausea and 06/13/23 Unknown Rx tablet vomiting #21 tabs GENERAL PROTECTION LOTION 1 dose topical 4X/DAY PRN sk in 07/31/23 Unknown History protection acetaminophen 160 mg/5 mL oral 500 mg PO Q6H PRN fever or pain 07/31/23 Unknown History elixir bisacodyl 10 mg/30 mL enema (Fleet 5 mg ID DAILY PRN c onstipation 07/31/23 Unknown History Bisacodyl) bismuth subsalicylate 525 mg/15 mL 1,050 mg PO .4X CLYDE LY PRN diarrhea 07/31/23 Unknown History oral suspension (Pepto-Bismol Max St) carboxymethylcellulose sodium 0.5 1 drp ophthalmic (ey e) 4-6XD PRN 07/31/23 Unknown History % eye drops (Refresh Tears) dry eye(s) citalopram 10 mg tablet 10 mg PO DAILY 07/31/23 Unkn own History citalopram 20 mg tablet 20 mg PO DAILY 07/31/23 Unkn own History ipratropium 0.5 mg-albuterol 3 mg 3 ml inhalation Q4H PRN shortness 07/31/23 Unknown History (2.5 mg base)/3 mL nebulization of breath or wheezing soln terbinafine HCl 1 % topical cream 1 applic topical BID PRN redness 10/08/23 Unknown History irrit docusate sodium 100 mg capsule 100 mg PO Q OTHER DAY # 15 caps 07/03/24 Unknown Rx Allergy/AdvReac Type Severity Reaction Status Date / Time amoxicillin trihydrate (From AdvReac Unknown Verified 08/10/24 14:57 Augmentin) potassium clavulanate (From AdvReac Unknown Verified 08/10/24 14:57 Augmentin) Family History Father Pulmonary embolism Alcoholism Mother CVA (cerebral vascular accident) Surgical History Hx of cataract removal with insertion of prosthetic lens Social History Smoking Status: Never smoker alcohol intake: current alcohol intake frequency: 0-2 drinks per day substance use type: does not use and other details: THC LAST USED ON 07/20/23 seatbelt use: always ROS ROS ED ROS Narrative Nausea and vomiting x 1 today. No recent illness. No fever. Review of Systems ROS Unobtainable: other Details: Limited due to the patient's limited speech capability. Constitutional Constitutional ED: Denies chills or fever(s) ENT ENT ED: Denies ear pain Cardiovascular Cardiovascular: Denies chest pain Respiratory/Chest Respiratory/Chest: Denies cough or dyspnea Gastrointestinal Gastrointestinal: Reports nausea and vomiting; Denies abdominal pain, constipation, diarrhea or melena Genitourinary Genitourinary ED: Denies dysuria or hematuria Musculoskeletal Musculoskeletal: Denies arthralgias Integumentary Denies abscess Neurologic Neurologic: Denies headache(s) Psychiatric Psychiatric: Denies anxiety Endocrine Endocrinology: Denies polydipsia Hematologic/Lymphatic Hematologic/Lymphatic: Denies easy bleeding Allergic/Immunologic Allergic/Immunologic ED: Denies mouth swelling EXAM Physical Exam Narrative Exam Narrative: 64-year-old female sitting upright in bed. Nurses in the room. Caregiver in the room. Vital signs are stable awaiting a blood pressure. H EENT exam pupilsround reactive light. Moist mucous membranes. Poor dentition. Neck nontender no JVD. Lungs clear to auscultation bilaterally. Heart regular rhythm rate about 84 no murmur. Chest wall ribs nontender. Abdomen soft nontender. Nondistended. Normal bowel sounds. No peritoneal signs. Moving all 4 extremities. Nontender deformity. Back nontender. Neurologically. Patient isawake. Her eyes are open. She is alert. She can answer limited questions. Follow limited commands. Const Vital Signs: 09/05/24 07:29 09/05/24 09:28 09/05/24 11:00 Temperature 96.0 F L Temperature Source Temporal Pulse Rate 84 81 72 Respiratory Rate 16 22 H 17 Blood Pressure 119/71 101/57 L Blood Pressure Mean 87 71 Pulse Ox 98 97 95 Oxygen Delivery Method Room Air Room Air 09/05/24 13:00 Temperature Temperature Source Pulse Rate 78 Respiratory Rate 20 H Blood Pressure 114/64 Blood Pressure Mean 78 Pulse Ox 99 Oxygen Delivery Method Room Air Positive well nourished and well developed; Negative for cachectic, contracturesor unkempt General Appearance ED: well developed and NAD; Negative for unkempt, cachectic, contractures or pallor Nutritional Appearance: Negative for cachectic HEENT Reports moist mucous membranes normocephalic and atraumatic Eyes PERRL and EOMs intact bilaterally Neck no lymphadenopathy, supple and no JVD Resp normal respiratory effort and clear to auscultation bilaterally Cardio regular rate, regular rhythm, S1 normal heart sound, S2 normal heart sound and no murmurs Rate: Negative for bradycardia or tachycardic Rhythm: Negative for abnormal rhythm GI non-tender, non-distended and no masses Inspection: Negative for abdominal distention Auscultation: normoactive bowel sounds Palpation: soft; Negative for tender, guarding or rebound tenderness present Back/Spine no CVA tenderness General Back: Negative for CVA tenderness Cervical Spine: Negative for cervical spine tenderness Thoracic Spine / Upper Back: Negative for thoracic spinal tenderness Lumbar Spine / Lower Back: Negative for lumbar spinal tenderness Extremity full ROM Neuro moves all extremities Sensorium / Orientation: alert and oriented to person Motor Exam: strength 5/5 throughout Psych mental status grossly normal and thought process normal Appearance: Negative for unkempt Skin no wounds General Skin Exam: Negative for jaundice or pallor Lesions: no lesions Rashes: no rashes MDM MDM MDM Narrative Medical decision making narrative: 64-year-old female black emesis that may be an upper GI bleed could also be from her being on iron and/or Pepto-Bismol. She is on the blood thinner Eliquis. Screening labs to be obtained. She does not need any imaging. She will be typed and screened. She will be treated with Protonix in case this is an upper GI bleed. I did do a rectal exam on the patient around 8:50 AM. Both her caregiver and mynurse was present in the room. There was really no loose stool so there was notany melena and there was nothing to put on a Hemoccult stick. Repeat exam patient is doing well at 1 PM. However her repeat H&H did drop her initial hemoglobin was 13.9 now is 12.6 hematocrit 1 from 41-36. Hospitalist I feel she needs to be admitted. She will be admitted to [facility]. She has already been started on Protonix from earlier in this evaluation. Admission forpossible upper GI bleed. History & Record Review Discussion w/independent historian: Patient and Other (Caregiver that is with her.) Additional record(s) reviewed:: Prior inpatient record, Prior outpatient record,Prior ED visit and Prior labs Lab Data Attestation: I reviewed the patient's lab results. Lab results narrative: CBC shows a white count of 12.1. H&H of 13.9 and 41.2 which is her baseline. Platelets 263. Labs: Laboratory Results - last 24 hr 09/05/24 09/05/24 09/05/24 08:16 09:15 12:25 WBC 12.1 H RBC 4.34 Hgb 13.9 12.6 Hct 41.2 36.8 L MCV 94.9 MCH 32.0 MCHC 33.7 RDW Std Deviation 47.7 H RDW Coeff of Handy 13.5 Plt Count 263 MPV 11.2 Immature Gran % (Auto) 0.200 Neut % (Auto) 62.1 Lymph % (Auto) 28.4 [place] % (Auto) 6.0 Eos % (Auto) 2.5 Baso % (Auto) 0.8 Absolute Neuts (auto) 7.5 Absolute Lymphs (auto) 3.45 Nucleated RBC % 0 Sodium 140 Potassium 4.2 Chloride 104 Carbon Dioxide 24.1 Anion Gap 12 BUN 10 Creatinine 0.47 L Est GFR (MDRD) Non-Af 107 BUN/Creatinine Ratio 22.1 H Glucose 105 H Calcium 9.0 Total Bilirubin 0.39 AST 15 ALT 5 Alkaline Phosphatase 86 Total Protein 6.9 Albumin 3.8 Globulin 3.1 Albumin/Globulin Ratio 1.2 Blood Type Cancelled A POSITIVE Antibody Screen Cancelled NEGATIVE Discharge Plan Triage Chief Complaint: GI Bleed ED Provider: Dominguez Bolton Dx/Rx/DC Orders Clinical Impression: Acute upper gastrointestinal bleeding, Chronic anticoagulation, History of Arias esophagus Prescriptions: No Action citalopram 20 mg tablet 20 mg PO DAILY Rx Instructions: TAKE WITH 10 MG TAB TO = 30 MG DAILY citalopram 10 mg tablet 10 mg PO DAILY Rx Instructions: TAKE WITH 20 MG TAB TO =30 MG DAILY ipratropium-albuterol 0.5 mg-3 mg(2.5 mg base)/3 mL solution for nebulization 3 ml inhalation Q4H PRN (Reason: shortness of breath or wheezing) Pepto-Bismol Max St 525 mg/15 mL suspension 1,050 mg PO .4X DAILY PRN Rx Instructions: FOR UPSET STOMACH; do not exceed 8 doses in a 24 hour period acetaminophen 160 mg/5 mL elixir 500 mg PO Q6H PRN Rx Instructions: PAIN OR FEVER>100.1 GENERAL PROTECTION LOTION topical Rx Instructions: APPLY BEFORE SUN EXPOSURE AND REAPPLY NECESSARY Fleet Bisacodyl 10 mg/30 mL enema 5 mg ID DAILY PRN Rx Instructions: ON DAY FIVE WITHOUT A BOWEL MOVEMENT carboxymethylcellulose sodium [Refresh Tears] 0.5 % drops 1 drp ophthalmic (eye) 4-6XD PRN Rx Instructions: COMPLAINT OF DRY EYES terbinafine HCl 1 % cream 1 applic topical BID PRN Rx Instructions: APPLY UNDER BREAST OR IN SKIN FOLDS FOR REDNESS clindamycin HCl 300 mg capsule 300 mg PO TID Qty: 21 0RF loratadine 10 MG tablet 10 mg PO DAILY@0800 mirtazapine 7.5 MG tablet 7.5 mg PO QHS@1999 azelastine 6 ML drops 0.05 drp EACH EYE BID@0800,1999 Patient Comments: PLACE (1) DROP INTO EACH EYE TWICE DAILY NEEDEDFOR DRY EYE apixaban 5 MG tablet 5 mg PO BID omeprazole 40 mg Capsule,Delayed Release(Dr/Ec) 40 mg PO DAILY@0700 levothyroxine 50 mcg tablet 50 mcg PO DAILY@0600 cholecalciferol (vitamin D3) [Vitamin D3] 25 mcg (1,000 unit) Tablet,Chewable 25 mcg PO DAILY@0800 ascorbic acid (vitamin C) 500 MG tablet 500 mg PO DAILY@0800 ferrous gluconate 324 MG tablet 324 mg PO DAILY@0800 carboxymethylcellulose sodium [Refresh Tears] 0.5 % Drops 1 drp EACH EYE TID ondansetron 4 mg tablet,disintegrating 4 mg PO TID PRN (Reason: nausea and vomiting) Qty: 21 0RF hydrocodone-acetaminophen 5-325 mg tablet 1 tab PO Q6H PRN PRN (Reason: pain, severe) 3 Days Qty: 10 0RF guaifenesin 100 mg/5 mL liquid 200 mg PO Q4H PRN (Reason: congestion) Qty: 1000 0RF Rx Instructions: COUGH OR THICK PHLEGM/SECRETIONS docusate sodium 100 mg capsule 100 mg PO Q OTHER DAY Qty: 15 5RF Primary Care Provider: Michelle Marroquin Referrals: Michelle Marroquin MD [Primary Care Provider] - Print Language: Angolan Disposition [facility] What to do if you have Problems For any increased pain, shortness of breath, bleeding, nausea or vomiting, chestpain, or any unexpected problems, contact your Primary Care Provider. Call [facility] ([phone]) or report to the closest Emergency Room. Call 911 if necessary. 09/05/24 1313 <Electronically signed by Dominguez Bolton MD> Cosigner Signature (if applicable): CC: Dr. Michelle Marroquin MD ~ Signed [facility] Work Phone: [phone] Discharge summary [facility] Medical Records Department [address] [place] [address] Emergency Department Summary 09/05/24 MR#: [id number] Acct: [id number] Name: TONYA FLETCHER Rep #:[id number] : 1960 64 From: Dominguez Bolton MD PCP: Dr. Michelle Marroquin MD Status:R EG ER Location: ED HPI HPI - GI History of Present Illness Chief Complaint: GI Bleed Informant: patient and other (Accompanied by a caregiver who gives the history. Patient has limitedspeech abilities.) Abdominal Pain/Flank Pain Onset: Today Current Severity: Mild Maximum Severity: Mild Nausea/Vomiting/Emesis GI Symptom: Positive for Nausea and Vomiting (X 1 today. Coffee-ground material.) Severity: Mild Diarrhea/Melena/Hematochezia GI Symptom: Negative for Diarrhea, Melena or Hematochezia Associated Symptoms Associated Symptoms: Negative for Dysuria or Frequency Narrative Narrative: 64-year-old female history of MRDD lives in an apartment has caregivers. 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 She has a pacemaker. Reportedly 1 week ago they thought she might add some dark emesis. Saw her primary care physician. Did not have the labs done at that time. Today had another episode of emesis that looked black. No known history of GI bleed. No recent melena that is known. She denies any abdominal pain. Prior similar symptoms: No Recent Illness/Hospitalization: No PFSH PFSH Medical History Diarrhea Nausea Intellectual developmental disorder, severe Urinary incontinence History of aspiration pneumonia Sore throat Hypothyroidism Cerebral palsy History of airway aspiration Health care maintenance Anxiety and depression History of pulmonary embolism Gastroenteritis URI (upper respiratory infection) neurostimulater Pacemaker metal gavi rt leg Hyperlipidemia Insomnia Fecal impaction Barretts esophagus Pulmonary embolism Vitamin D deficiency Allergic rhinitis GERD (gastroesophageal reflux disease) Depression Home Medications ?Medication ?Instructions ?Recorded ?Last Taken ?Type loratadine 10 mg tablet 10 mg PO DAILY@0800 ALLERGIE S 09/10/14 01/02/22 History mirtazapine 7.5 mg tablet 7.5 mg PO QHS@1999 DEPRESSIO N 05/19/17 01/01/22 History azelastine 0.05 % eye drops 0.05 drp EACH EYE BID@0800 ,199908/08/18 01/02/22 History DRY EYES apixaban 5 mg tablet 5 mg PO BID BLOOD THINNER 01/02/22 History ascorbic acid (vitamin C) 500 mg 500 mg PO DAILY@0800 SUPPLEMENT 01/02/22 01/02/22 History tablet carboxymethylcellulose sodium 0.5 1 drp EACH EYE TID 1 01/02/22 History % eye drops (Refresh Tears) cholecalciferol (vitamin D3) 25 25 mcg PO DAILY@0800 S UPPLEMENT 01/02/22 01/02/22 History mcg (1,000 unit) chewable tablet (Vitamin D3) ferrous gluconate 324 mg (38 mg 324 mg PO DAILY@0800 S UPPLEMENT 01/02/22 01/02/22 History iron) tablet levothyroxine 50 mcg tablet 50 mcg PO DAILY@0600 THYRO ID 01/02/22 01/02/22 History omeprazole 40 mg capsule,delayed 40 mg PO DAILY@0700 G ERD 01/02/22 01/02/22 History release ondansetron 4 mg disintegrating 4 mg PO TID PRN nausea and 06/13/23 Unknown Rx tablet vomiting #21 tabs GENERAL PROTECTION LOTION 1 dose topical 4X/DAY PRN sk in 07/31/23 Unknown History protection acetaminophen 160 mg/5 mL oral 500 mg PO Q6H PRN fever or pain 07/31/23 Unknown History elixir bisacodyl 10 mg/30 mL enema (Fleet 5 mg ID DAILY PRN c onstipation 07/31/23 Unknown History Bisacodyl) bismuth subsalicylate 525 mg/15 mL 1,050 mg PO .4X CLYDE LY PRN diarrhea 07/31/23 Unknown History oral suspension (Pepto-Bismol Max St) carboxymethylcellulose sodium 0.5 1 drp ophthalmic (ey e) 4-6XD PRN 07/31/23 Unknown History % eye drops (Refresh Tears) dry eye(s) citalopram 10 mg tablet 10 mg PO DAILY 07/31/23 Unkn own History citalopram 20 mg tablet 20 mg PO DAILY 07/31/23 Unkn own History ipratropium 0.5 mg-albuterol 3 mg 3 ml inhalation Q4H PRN shortness 07/31/23 Unknown History (2.5 mg base)/3 mL nebulization of breath or wheezing soln terbinafine HCl 1 % topical cream 1 applic topical BID PRN redness 10/08/23 Unknown History irrit docusate sodium 100 mg capsule 100 mg PO Q OTHER DAY # 15 caps 07/03/24 Unknown Rx Allergy/AdvReac Type Severity Reaction Status Date / Time amoxicillin trihydrate (From AdvReac Unknown Verified 08/10/24 14:57 Augmentin) potassium clavulanate (From AdvReac Unknown Verified 08/10/24 14:57 Augmentin) Family History Father Pulmonary embolism Alcoholism Mother CVA (cerebral vascular accident) Surgical History Hx of cataract removal with insertion of prosthetic lens Social History Smoking Status: Never smoker alcohol intake: current alcohol intake frequency: 0-2 drinks per day substance use type: does not use and other details: THC LAST USED ON 07/20/23 seatbelt use: always ROS ROS ED ROS Narrative Nausea and vomiting x 1 today. No recent illness. No fever. Review of Systems ROS Unobtainable: other Details: Limited due to the patient's limited speech capability. Constitutional Constitutional ED: Denies chills or fever(s) ENT ENT ED: Denies ear pain Cardiovascular Cardiovascular: Denies chest pain Respiratory/Chest Respiratory/Chest: Denies cough or dyspnea Gastrointestinal Gastrointestinal: Reports nausea and vomiting; Denies abdominal pain, constipation, diarrhea or melena Genitourinary Genitourinary ED: Denies dysuria or hematuria Musculoskeletal Musculoskeletal: Denies arthralgias Integumentary Denies abscess Neurologic Neurologic: Denies headache(s) Psychiatric Psychiatric: Denies anxiety Endocrine Endocrinology: Denies polydipsia Hematologic/Lymphatic Hematologic/Lymphatic: Denies easy bleeding Allergic/Immunologic Allergic/Immunologic ED: Denies mouth swelling EXAM Physical Exam Narrative Exam Narrative: 64-year-old female sitting upright in bed. Nurses in the room. Caregiver in the room. Vital signs are stable awaiting a blood pressure. H EENT exam pupilsround reactive light. Moist mucous membranes.Poor dentition. Neck nontender no JVD. Lungs clear to auscultation bilaterally. Heart regular rhythm rate about 84 no murmur. Chest wall ribs nontender. Abdomen soft nontender. Nondistended. Normal bowel sounds. No peritoneal signs. Moving all 4 extremities. Nontender deformity. Back nontender. Neurologically. Patient isawake. Her eyes are open. She is alert. She can answer limited questions. Follow limited commands. Const Vital Signs: 09/05/24 07:29 09/05/24 09:28 09/05/24 11:00 Temperature 96.0 F L Temperature Source Temporal Pulse Rate 84 81 72 Respiratory Rate 16 22 H 17 Blood Pressure 119/71 101/57 L Blood Pressure Mean 87 71 Pulse Ox 98 97 95 Oxygen Delivery Method Room Air Room Air 09/05/24 13:00 Temperature Temperature Source Pulse Rate 78 Respiratory Rate 20 H Blood Pressure 114/64 Blood Pressure Mean 78 Pulse Ox 99 Oxygen Delivery Method Room Air Positive well nourished and well developed; Negative for cachectic, contracturesor unkempt General Appearance ED: well developed and NAD; Negative for unkempt, cachectic, contractures or pallor Nutritional Appearance: Negative for cachectic HEENT Reports moist mucous membranes normocephalic and atraumatic Eyes PERRL and EOMs intact bilaterally Neck no lymphadenopathy, supple and no JVD Resp normal respiratory effort and clear to auscultation bilaterally Cardio regular rate, regular rhythm, S1 normal heart sound, S2 normal heart sound and no murmurs Rate: Negative for bradycardia or tachycardic Rhythm: Negative for abnormal rhythm GI non-tender, non-distended and no masses Inspection: Negative for abdominal distention Auscultation: normoactive bowel sounds Palpation: soft; Negative for tender, guarding or rebound tenderness present Back/Spine no CVA tenderness General Back: Negative for CVA tenderness Cervical Spine: Negative for cervical spine tenderness Thoracic Spine / Upper Back: Negative for thoracic spinal tenderness Lumbar Spine / Lower Back: Negative for lumbar spinal tenderness Extremity full ROM Neuro moves all extremities Sensorium / Orientation: alert and oriented to person Motor Exam: strength 5/5 throughout Psych mental status grossly normal and thought process normal Appearance: Negative for unkempt Skin no wounds General Skin Exam: Negative for jaundice or pallor Lesions: no lesions Rashes: no rashes MDM MDM MDM Narrative Medical decision making narrative: 64-year-old female black emesis that may be an upper GI bleed could also be from her being on iron and/or Pepto-Bismol. She is on the blood thinner Eliquis. Screening labs to be obtained. She does not need any imaging. She will be typed and screened. She will be treated with Protonix in case this is an upper GI bleed. I did do a rectal exam on the patient around 8:50 AM. Both her caregiver and mynurse was present inthe room. There was really no loose stool so there was notany melena and there was nothing to put on a Hemoccult stick. Repeat exam patient is doing well at 1 PM. However her repeat H&H did drop her initial hemoglobin was 13.9 now is 12.6 hematocrit 1 from 41-36. Hospitalist I feel she needs to be admitted. She will be admitted to [facility]. She has already been started on Protonix from earlier in this evaluation.Admission forpossible upper GI bleed. History & Record Review Discussion w/independent historian: Patient and Other (Caregiver that is with her.) Additional record(s) reviewed:: Prior inpatient record, Prior outpatient record,Prior ED visit and Prior labs Lab Data Attestation: I reviewed the patient's lab results. Lab results narrative: CBC shows a white count of 12.1. H&H of 13.9 and 41.2 which is her baseline. Platelets 263. Labs: Laboratory Results - last 24 hr 09/05/24 09/05/24 09/05/24 08:16 09:15 12:25 WBC 12.1 H RBC 4.34 Hgb 13.9 12.6 Hct 41.2 36.8 L MCV 94.9 MCH 32.0 MCHC 33.7 RDW Std Deviation 47.7 H RDW Coeff of Handy 13.5 Plt Count 263 MPV 11.2 Immature Gran % (Auto) 0.200 Neut % (Auto) 62.1 Lymph % (Auto) 28.4 [place] % (Auto) 6.0 Eos % (Auto) 2.5 Baso % (Auto) 0.8 Absolute Neuts (auto) 7.5 Absolute Lymphs (auto) 3.45 Nucleated RBC % 0 Sodium 140 Potassium 4.2 Chloride 104 Carbon Dioxide 24.1 Anion Gap 12 BUN 10 Creatinine 0.47 L Est GFR (MDRD) Non-Af 107 BUN/Creatinine Ratio 22.1 H Glucose 105 H Calcium 9.0 Total Bilirubin 0.39 AST 15 ALT 5 Alkaline Phosphatase 86 Total Protein 6.9 Albumin 3.8 Globulin 3.1 Albumin/Globulin Ratio 1.2 Blood Type Cancelled A POSITIVE Antibody Screen Cancelled NEGATIVE Discharge Plan Triage Chief Complaint: GI Bleed ED Provider: Dominguez Bolton Dx/Rx/DC Orders Clinical Impression: Acute upper gastrointestinal bleeding, Chronic anticoagulation, History of Arias esophagus Prescriptions: No Action citalopram 20 mg tablet 20 mg PO DAILY Rx Instructions: TAKE WITH 10 MG TAB TO = 30 MG DAILY citalopram 10 mg tablet 10 mg PO DAILY Rx Instructions: TAKE WITH 20 MG TAB TO =30 MG DAILY ipratropium-albuterol 0.5 mg-3 mg(2.5 mg base)/3 mL solution for nebulization 3 ml inhalation Q4H PRN (Reason: shortness of breath or wheezing) Pepto-Bismol Max St 525 mg/15 mL suspension 1,050 mg PO .4X DAILY PRN Rx Instructions: FOR UPSET STOMACH; do not exceed 8 doses in a 24 hour period acetaminophen 160 mg/5 mL elixir 500 mg PO Q6H PRN Rx Instructions: PAIN OR FEVER>100.1 GENERAL PROTECTION LOTION topical Rx Instructions: APPLY BEFORE SUN EXPOSURE AND REAPPLY NECESSARY Fleet Bisacodyl 10 mg/30 mL enema 5 mg ID DAILY PRN Rx Instructions: ON DAY FIVE WITHOUT A BOWEL MOVEMENT carboxymethylcellulose sodium [Refresh Tears] 0.5 % drops 1 drp ophthalmic (eye) 4-6XD PRN Rx Instructions: COMPLAINT OF DRY EYES terbinafine HCl 1 % cream 1 applic topical BID PRN Rx Instructions: APPLY UNDER BREAST OR IN SKIN FOLDS FOR REDNESS clindamycin HCl 300 mg capsule 300 mg PO TID Qty: 21 0RF loratadine 10 MG tablet 10 mg PO DAILY@0800 mirtazapine 7.5 MG tablet 7.5 mg PO QHS@1999 azelastine 6 ML drops 0.05 drp EACH EYE BID@799,1999 Patient Comments: PLACE (1) DROP INTO EACH EYE TWICE DAILY NEEDEDFOR DRY EYE apixaban 5 MG tablet 5 mg PO BID omeprazole 40 mg Capsule,Delayed Release(Dr/Ec) 40 mg PO DAILY@0700 levothyroxine 50 mcg tablet 50 mcg PO DAILY@0600 cholecalciferol (vitamin D3) [Vitamin D3] 25 mcg (1,000 unit) Tablet,Chewable 25 mcg PO DAILY@0800 ascorbic acid (vitamin C) 500 MG tablet 500 mg PO DAILY@0800 ferrous gluconate 324 MG tablet 324 mg PO DAILY@0800 carboxymethylcellulose sodium [Refresh Tears] 0.5 % Drops 1 drp EACH EYE TID ondansetron 4 mg tablet,disintegrating 4 mg PO TID PRN (Reason: nausea and vomiting) Qty: 21 0RF hydrocodone-acetaminophen 5-325 mg tablet 1 tab PO Q6H PRN PRN (Reason: pain, severe) 3 Days Qty: 10 0RF guaifenesin 100 mg/5 mL liquid 200 mg PO Q4H PRN (Reason: congestion) Qty: 1000 0RF Rx Instructions: COUGH OR THICK PHLEGM/SECRETIONS docusate sodium 100 mg capsule 100 mg PO Q OTHER DAY Qty: 15 5RF Primary Care Provider: Michelle Marroquin Referrals: Michelle Marroquin MD [Primary Care Provider] - Print Language: Angolan [facility] What to do if you have Problems For any increased pain, shortness of breath, bleeding, nausea or vomiting, chestpain, or any unexpected problems, contact your Primary Care Provider. Call [facility] ([phone]) or report tothe closest Emergency Room. Call 911 if necessary. 09/05/24 1313 Cosigner Signature (if applicable): CC: Dr. Michelle Marroquin MD ~ Signed [facility]06-19-2025 NoteHNO ID: [id number] Author: HAJA COLEY MD Service: ? Author Type: Physician Type: Progress Notes Filed: 08/26/2024 18:45 Note Text: [facility] Subjective Tonya Fletcher is a 64 year [...] the following reason(s): Benign exam and [facility]als [facility] History of Present illness Narrative* Haja Coley MD - 08/26/2024 6:40 PM EDT [facility] Subjective Tonya Fletcher is [...] exam and vitals Procedures documented in this encounterCenterville04-04-2025 Evaluation note* Diagnosis Onset Date Resolution Status Admit Date Health care maintenance acute A pril 2024 12:50pm Anxiety and depression chronic Ap ril 2024 12:50pm Cerebral palsy chronic June 11, 2024 12:50pm History of pulmonary embolism chroni c June 11, 2024 12:50pm Hypothyroidism chronic June 11, 2024 12:50pm Insomnia chronic June 11 12:50pm Intellectual developmental disorder, severe chronic June 11, 2024 12:50pm Urinary incontinence chronic Apri l 2024 12:50pm Diarrhea acute August 10, 2024 2:55pm Gastroenteritis acute August 10, 2024 2:55pm Nausea acute August 10, 2024 2:55pm [facility] Work Phone: 1(282) 840-902504-04-2025 Evaluation note* Diagnosis Onset Date Resolution Status Admit Date Health care maintenance acute A pril 2024 12:50pm Anxiety and depression chronic Ap ril 2024 12:50pm Cerebral palsy chronic June 11, 2024 12:50pm History of pulmonary embolism chroni c June 11, 2024 12:50pm Hypothyroidism chronic June 11, 2024 12:50pm Insomnia chronic June 11 12:50pm Intellectual developmental disorder, severe chronic June 11, 2024 12:50pm Urinary incontinence chronic Apri l 2024 12:50pm Diarrhea acute August 10, 2024 2:55pm Gastroenteritis acute August 10, 2024 2:55pm Nausea acute August 10, 2024 2:55pm Hematemesis acute September 05 1:38pm [facility] Work Phone: 1(279) 972-493704-04-2025 Evaluation note* Diagnosis Onset Date Resolution Status Admit Date Health care maintenance acute A pril 2024 12:50pm Anxiety and depression chronic Ap ril 2024 12:50pm Cerebral palsy chronic June 11, 2024 12:50pm History of pulmonary embolism chroni c June 11, 2024 12:50pm Hypothyroidism chronic June 11, 2024 12:50pm Insomnia chronic June 11 12:50pm Intellectual developmental disorder, severe chronic June 11, 2024 12:50pm Urinary incontinence chronic Apri l 2024 12:50pm Diarrhea acute August 10, 2024 2:55pm Gastroenteritis acute August 10, 2024 2:55pm Nausea acute August 10, 2024 2:55pm Hematemesis resolved September 05 1:38pm [facility] Work Phone: 1(928) 890-739002-12-2025 Evaluation note* Diagnosis Onset Date Resolution Status Admit Date History of aspiration pneumonia acut e April 21, 2024 1:47pm Sore throat acute April 1:47pm URI (upper respiratory infection) acute April 21, 2 025 1:47pm Health care maintenance acute A pril 2024 12:50pm Anxiety and depression chronic Ap ril 2024 12:50pm Cerebral palsy chronic June 11, 2024 12:50pm History of pulmonary embolism chroni c June 11, 2024 12:50pm Hypothyroidism chronic June 11, 2024 12:50pm Insomnia chronic June 11 12:50pm Intellectual developmental disorder, severe chronic June 11, 2024 12:50pm Urinary incontinence chronic Apri l 2024 12:50pm [facility] Work Phone: 1(403) 138-926104-05-2024 Discharge summary Author Haresh Curtis [facility] June 13, 2023 8:23am Note Date/Time June 13, 2023 6:33 am [facility] Medical Records Department [address] [place] [address] Emergency Department Summary 06/13/23 MR#: [id number] Acct: [id number] Name: TONYA FLETCHER Rep #:[id number] : 1960 62 From: Haresh Curtis DO PCP: Dr. Rocky Barlow MD Status:REG E R Location: ED HPI History of Present Illness Chief Complaint: General Illness Informant: patient and legal guardian Narrative Narrative: Patient is a 62-year-old female with past medical history of cerebral palsy as well as previous pulmonary embolism currently on Xarelto hypothyroidism and hyperlipidemia. Construction Producer reports that she awoke around 2:30/2:45 in the morning to sounds of retching and the patient had 3 bouts of vomiting. Construction Producer states that the vomit was whenever was in her stomach and then turned to bile and was not dark or bloody. Reportedly the patient has a remote historyof bowel obstruction and the loft worker apprentice denies any recent diarrhea and therefore was concerned for this and called EMS to bring her in for evaluation. The patient cannot offer any further history based on her cerebral palsy Please note loft worker apprentice states that she and her other loft worker apprentice were both sick with similar symptoms just last week. PFSH PFS Medical History Allergic rhinitis Barretts esophagus Cerebral [...] note review of systems was obtained from loft worker apprentice Constitutional Constitutional ED: Denies fever(s) ENT ENT [...] Differential diagnosis is for viral infection suchas Chantilly virus versus rotavirus versus electrolyte abnormality versus [...] & Record Review Discussion w/independent historian: Other (Construction Producer) Lab Data Attestation: I reviewed the patient's lab results. Labs: Laboratory Results - last 24 hr 06/13/23 06:12 WBC 9.0 RBC 4.62 Hgb 14.3 Hct 43.6 MCV 94.4 MCH 31.0 MCHC 32.8 RDW Std Deviation 47.4 H RDW Coeff of Handy 13.5 Plt Count 321 MPV 10.5 Immature Gran % (Auto) 0.200 Neut % (Auto) 80.0 H Lymph % (Auto) 12.4 L [place] % (Auto) 4.6 Eos % (Auto) 2.5 [...] Signed: Nickie Ramirez MD at 8:17 EDT Reading Location ID and State: [facility] / [place] Tel , Service support , Acute abdominal series with 1 view chest as interpreted by the emergency medicine physician reveals a nonspecific nonobstructive bowel gas pattern and chest x-ray component reveals no obvious infiltrate Discharge Plan Triage Chief Complaint: General Illness ED Provider: Haresh Curtis Dx/Rx/DC Orders Clinical Impression: Nausea and vomiting, Current use of ocean transportation intermediary anticoagulation, Cerebral palsy Instructions: ED Gastroenteritis, Viral (Adult), ED Vomiting (Adult) Prescriptions: New ondansetron 4 mg tablet,disintegrating 4 mg PO TID PRN (Reason: nausea and vomiting) Qty: 21 0RF No Action loratadine 10 MG tablet 10 mg PO DAILY@0800 mirtazapine 7.5 MG tablet 7.5 mg PO QHS@1999 azelastine 6 ML drops 0.05 drp EACH EYE BID@799,1999 Patient Comments: PLACE (1) DROP INTO EACH [...] your Primary Care Provider. Call [facility] ([phone]) or report to the closest Emergency Room. Call 911 if necessary. 06/13/23822 <Electronically signed by Haresh Curtis DO> Cosigner Signature (if applicable): CC: Dr. Rocky Barlow MD ~ Signed [facility] Work Phone: 1(108) 509-442110-25-2023 Procedure [facility] 10-29-2021 Miscellaneous Notes* Telephone Encounter - Mary Alice Sumner RN - 10/29/2021 10:43 AM EDT Erica Askew with [facility] notified. Patient did already take diflucan and symptoms have improved. Mary Alice Sumner RN * Telephone Encounter - Mary Alice Sumner RN - 10/29/2021 9:49 AM EDT Left voicemail on [facility] to call office. Mary Alice Sumner RN * Telephone Encounter - Kathya Eric APRN.CNM - 10/27/2021 12:04 PM EDT Please notify patient that results are negative. She did receive 1 dose of Diflucan. If any furtherissues or concerns to please let us know and can decide on another treatment plan for symptoms.Kathya Eric APRN.CNM documented in this encounterCenterville08-20-2022 Miscellaneous Notes* Telephone Encounter - Libby Mariano [...] PCP. Melba Suarez CNP documented in this encounterCenterville08-19-2022 Instructions* Patient Instructions* Kathya Eric APRN.CNM - 10/26/2021 3:03 PM EDT Prescription sent [...] for diabetes Get tested for HIV/AIDS Copyright 2348-7758 [facility]. All rights reserved. This information is provided by the [place] and is not intended to replace the medical advice of your doctor or health care provider. Please consult your health care provider for advice about a specific medical condition. For additional written health information, please contact the [facility] at the [place] or toll-free extension [phone]. 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 Anna Tomlin from [facility] Esophageal reflux suspected cause of emesis episodes [...] EGD W/O OR W/BRUSH/WASH 05/22/[facility] W/[facility]USH[facility]WASH 05/28/2018 PAST [...] mouth once daily. COMPOUNDED PRESCRIPTION Light talker [employer] Pathfinder Device with Table Mount, Wheelchair Mount [...] recommendations. Kathya Eric APRN.CNM documented in this encounterCenterville08-19-2022 History of Present illness Narrative* Lennox Chamberlain APRN.TIME STUDY ENGINEER - 10/26/2021 8:17 AM EDT Subjective HPI HPI Tonya Fletcher is a 61 year old female who presents today for CC of burning with urination. This started 1 week ago. Has tried nothing for relief. Symptoms are worsened by nothing. aoc aadc operations staff officer reports no visible abnormality in area. [...] elsewhere classified Sees Dr. Anna Tomlin from [facility] Esophageal reflux suspected cause of emesis episodes [...] EGD W/O OR W/BRUSH/WASH 05/22/2017 EGD w/biopsy [facility] EGD W/O OR W/BRUSH/WASH 05/28/2018 PAST [...] buttocks twice daily COMPOUNDED PRESCRIPTION Light talker [employer] Pathfinder Device with Table Mount, Wheelchair Mount [...] culture - will try to get earlier time motion analyst appointment Worsening symptoms go to ER. - [...] plan Lennox Chamberlain APRN.CNP documented in this encounterCenterville08-19-2022 Instructions* Patient Instructions* Lennox Chamberlain APRN.CNP - 10/26/2021 8:09 AM EDT ASSESSMENT/PLAN: 1. Burning with urination - ICD9: 788.1, ICD10: R30.0 (primary diagnosis) Acute -urinalysis negative - Send urine for culture - will try to get earlier time motion analyst appointment Worsening symptoms go to ER. - [...] breath go to ER documented in this encounterCentervilleConsult note Author Peace Flores [facility] Note Date/Time September 07, 2024 2:35p m [facility] Medical Records Department [address] [place] [address] Counseling Note - Pharmacy 09/07/24 1434 MR#: [id number] Acct: [id number] Name: TONYA FLETCHER Rep #:[id number] : 1960 64 From: Peace Flores PCP: Dr. Michelle Marroquin MD Status:A DM IN Y Location: MS3 [id number] [facility] has performed discharge medication reconciliation and counseling for this patient. 1. PANTOPRAZOLE 40MG PO BID 2. STOP OMEPRAZOLE 3. RESUME ELIQUIS 09/10 The patient's discharge medication list was reviewed for discrepancies and discrepancies were resolved. The patient's family was counseled on the following discharge medications and changes in medications for homegoing were reviewed. The Reason for Use, instructions for use, and potential side effects were reviewed for all new medications. The patient's family questions regarding all of their medications were answered. The patient's family was able to verbally demonstrate an understanding of their discharge medications. Medications at Discharge Home Medications loratadine 10 mg tablet 10 mg PO DAILY@0800 ALLERGIES 09/10/14 mirtazapine 7.5 mg tablet 7.5 mg PO QHS@1999 DEPRESSION 05/19/17 azelastine 0.05 % eye drops 0.05 drp EACH EYE BID@0800,1999 DRY EYES 08/08/18 apixaban 5 mg tablet 5 mg PO BID BLOOD THINNER 11/23/18 Held on 09/07/24. Instructions: Resume on 09/10/24. ascorbic acid (vitamin C) 500 mg tablet 500 mg PO DAILY@0800 SUPPLEMENT 01/02/22 carboxymethylcellulose sodium 0.5 % eye drops (Refresh Tears) 1 drp EACH EYE TID1 cholecalciferol (vitamin D3) 25 mcg (1,000 unit) chewable tablet (Vitamin D3) 25mcg PO DAILY@0800 SUPPLEMENT 01/02/22 ferrous gluconate 324 mg (38 mg iron) tablet 324 mg PO DAILY@0800 SUPPLEMENT 01/02/22 levothyroxine 50 mcg tablet 50 mcg PO DAILY@0600 THYROID 01/02/22 ondansetron 4 mg disintegrating tablet 4 mg PO TID PRN nausea and vomiting #21 tabs 06/13/23 GENERAL PROTECTION LOTION 1 dose topical 4X/DAY PRN skin protection 07/31/23 acetaminophen 160 mg/5 mL oral elixir 500 mg PO Q6H PRN fever or pain 07/31/23 bisacodyl 10 mg/30 mL enema (Fleet Bisacodyl) 5 mg ID DAILY PRN constipation 07/31/23 bismuth subsalicylate 525 mg/15 mL oral suspension (Pepto-Bismol Max St) 1,050 mg PO .4X DAILY PRN diarrhea 07/31/23 carboxymethylcellulose sodium 0.5 % eye drops (Refresh Tears) 1 drp ophthalmic (eye) 4-6XD PRN dry eye(s) 07/31/23 citalopram 10 mg tablet 10 mg PO DAILY 07/31/23 citalopram 20 mg tablet 20 mg PO DAILY 07/31/23 ipratropium 0.5 mg-albuterol 3 mg (2.5 mg base)/3 mL nebulization soln 3 ml inhalation Q4H PRN shortness of breath or wheezing 07/31/23 terbinafine HCl 1 % topical cream 1 applic topical BID PRN redness irrit 10/08/23 docusate sodium 100 mg capsule 100 mg PO Q OTHER DAY #15 caps 07/03/24 pantoprazole 40 mg tablet,delayed release 40 mg PO BID #60 tabs 09/07/24 09/07/24 3225 <Electronically signed by Peace Flores> Date _ Peace Flores Cosigner Signature (if applicable): Date CC: ~ Signed [facility] Work Phone: Evaluation noteNo assessment information available [facility] Work Phone: Evaluation note* Diagnosis Burning with urination- Primary Dysuria Wheeze Wheezing Chronic cough Cough documented in this encounter [facility] note* Diagnosis Vaginal itching- Primary Pruritus of genital organs Vaginal burning Other specified symptom associated with female genital organs Vaginal odor Unspecified symptom associated with female genital organs Vaginal discharge Leukorrhea, not specified as infective documented in this encounter [facility] note* Diagnosis Onset Date Resolution Status Acute respiratory failure with hypoxia acute RSV bronchitis acute Tachycardia acute [facility] Work Phone: Evaluation note* Diagnosis Onset Date Resolution Status RSV bronchitis acute Acute respiratory failure with hypoxia resolved Tachycardia resolved Gastroenteritis acute URI (upper respiratory infection) acute [facility] Work Phone: Evaluation note* Diagnosis Pre-operative [...] type- [facility] Additional Instructions Your workup today does not show any signs of aspiration or small bowel obstruction. Symptoms are most likely related to a viral stomach infection based on your negative workup and exposure. Use the Zofran as directed to help control any further bouts of nausea and vomiting and return to the ER should you have any further concernsWSelect [facility] [place] Work Phone: Hospital Discharge instructions Additional Instructions [...] if she develops a fever or is worse.[facility] Work Phone: Reason for referral (narrative)No reason for referral information availableWSelect Medical [facility] [place] Work Phone: Summary Purpose Family History Relationship Condition Age at Onset Recorded Date/T [...] mother Cerebrovascular accident (CVA) Unknown Advance Directives Advance Directive Response Recorded Date/ Time Advance Directives No May 25 9:26am Living Will No February 05 11:33pm Power of Health Insurance Assessor No February 05, 2021 11:33pm Advance Directive Response Recorded Date/ Time Name of Medical Power of Health Insurance Assessor Jess anders January 02, 2022 9:53pm Advance Directives No May 25 9:26am Living Will No January 02 9:53pm Power of Health Insurance Assessor Yes January 02, 2022 9:53pm Advance Directive Response Recorded Date/ Time Name of Medical Power of Health Insurance Assessor Jess anders January 02, 2022 8:53pm Advance Directives No January 1:53pm Living Will No March 21 5:49pm Power of Health Insurance Assessor No March 21, 2022 5:49pm Advance Directive Response Recorded Date/ Time Advance Directives No January 2:53pm Living Will No March 21 6:49pm Power of Health Insurance Assessor No March 21, 2022 6:49pm Advance Directive Response Recorded Date/ Time Advance Directives No January 2:53pm Living Will No August 15, 2022 5 :22pm Power of Health Insurance Assessor No August 15, 2022 5:22pm Advance Directive Response Recorded Date/ Time Advance Directives No January 1:53pm Living Will No August 15, 2022 4 :22pm Power of Health Insurance Assessor No August 15, 2022 4:22pm Advance Directive Response Recorded Date/ Time Advance Directives No January 2:53pm Living Will No July 21, 2023 8 :44am Power of Health Insurance Assessor No July 21, 2023 8:44am Advance Directive Response Recorded Date/ Time Living Will No October 08, 2023 3:03pm Do you have a Healthcare Power of Health Insurance Assessor? No October 08, 2023 3:03pm Living Will No April 09 9:36pm Do you have a Healthcare Power of Health Insurance Assessor? No April 09, 2024 9:36pm Advance Directives No October 07 3:03pm Advance Directive Response Recorded Date/ Time Living Will No October 08, 2023 3:03pm Do you have a Healthcare Power of Health Insurance Assessor? No October 08, 2023 3:03pm Advance Directives No October 07 3:03pm Advance Directive Response Recorded Date/ Time Living Will No October 08, 2023 3:03pm Do you have a Healthcare Power of Health Insurance Assessor? No October 08, 2023 3:03pm Advance Directives No August 10 2:47pm Advance Directive Response Recorded Date/ Time Living Will No October 08, 2023 3:03pm Do you have a Healthcare Power of Health Insurance Assessor? No October 08, 2023 3:03pm Advance Directives No August 10 2:47pm Do you have a Healthcare Power of Health Insurance Assessor? Yes September 05, 2024 7:31am Advance Directive Response Recorded Date/ Time Living Will No October 08, 2023 3:03pm Do you have a Healthcare Power of Health Insurance Assessor? No October 08, 2023 3:03pm Advance Directives No August 10 2:47pm Do you have a Healthcare Power of Health Insurance Assessor? Yes September 05, 2024 3:39pm Chief Complaint and Reason for Visit Chief [...] 0pm NUSEA/DIARRHEA August 10, 2024 2:55p m Chief Complaint Admit Date TOOTH PAIN/CONCERN FOR INFECTION May 082024 4:58pm 6 M FU June 11, 2024 12:5 0pm NUSEA/DIARRHEA August 10, 2024 2:55p m HEMETEMSIS September 05, 2024 1:38 pm Reason for Visit Admit Date Health care maintenance June 11, 2024 12:50pm Anxiety and depression June 11, 2024 1 2:50pm Cerebral palsy June 11, 2024 12:5 0pm History of pulmonary embolism June 11, 2024 12:50pm Hypothyroidism June 11, 2024 12:5 0pm Insomnia June 11, 2024 12:5 0pm Intellectual developmental disorder, sev ere June 11, 2024 12:50pm Urinary incontinence June 11, 2024 12: 50pm Diarrhea August 10, 2024 2:55p m Gastroenteritis August 10, 2024 2:55p m Nausea August 10, 2024 2:55p m Chief Complaint Admit Date TOOTH PAIN/CONCERN FOR INFECTION May 082024 4:58pm 6 M FU June 11, 2024 12:5 0pm NUSEA/DIARRHEA August 10, 2024 2:55p m HEMETEMSIS September 05, 2024 1:38 pm HEMETEMSIS September 06, 2024 7:22 am HEMETEMSIS September 06, 2024 12:1 9pm HEMETEMSIS September 07, 2024 1:00p m Reason for Visit Admit Date Health care maintenance June 11, 2024 12:50pm Anxiety and depression June 11, 2024 1 2:50pm Cerebral palsy June 11, 2024 12:5 0pm History of pulmonary embolism June 11, 2024 12:50pm Hypothyroidism June 11, 2024 12:5 0pm Insomnia June 11, 2024 12:5 0pm Intellectual developmental disorder, sev ere June 11, 2024 12:50pm Urinary incontinence June 11, 2024 12: 50pm Diarrhea August 10, 2024 2:55p m Gastroenteritis August 10, 2024 2:55p m Nausea August 10, 2024 2:55p m Hematemesis September 05, 2024 1:38 pm Chief Complaint Admit Date 6 M FU June 11, 2024 12:5 0pm NUSEA/DIARRHEA August 10, 2024 2:55p m HEMETEMSIS September 05, 2024 1:38 pm AM EKG September 06, 2024 5:44 am HEMETEMSIS September 06, 2024 7:22 am HEMETEMSIS September 06, 2024 12:1 9pm HEMETEMSIS September 07, 2024 1:00p m HOSP September 21, 2024 1:46 pm Additional Source Comments INFORMATION SOURCE (unrecogn ized section and content) DATE CREATED AUTHOR 09/03/2017 [facility] Mackenzie norris Polk DATE CREATED AUTHOR AUTHOR'S ORGANIZ ATION 02/15/2018 [facility] DATE CREATED AUTHOR AUTHOR'S ORGANIZ ATION 08/29/2024 [facility] DATE CREATED AUTHOR AUTHOR'S ORGANIZ ATION 09/18/2024 [facility] Goals (unrecognized section and content) Goals [...] or prosecute any alcohol or drug abuse patient.[place] the event this information is protected by the Federal Confidentiality of Alcohol and Drug Abuse Patient Records regulations: The Federal rules restrict any use of the information to criminally investigate or prosecute any alcohol or drug abuse patient.[place] the event this information is protected by the Federal Confidentiality of Alcohol and Drug Abuse Patient Records regulations: The Federal rules restrict any use of the information to criminally investigate or prosecute any alcohol or drug abuse patient.[place] the event this information is protected by the Federal Confidentiality of Alcohol and Drug Abuse Patient Records regulations: The Federal rules restrict any use of the information to criminally investigate or prosecute any alcohol or drug abuse patient.[place] the event this information is protected by the Federal Confidentiality of Alcohol and Drug Abuse Patient Records regulations: The Federal rules restrict any use of the information to criminally investigate or prosecute any alcohol or drug abuse patient.[place] Reason for Visit (unrecogniz ed section and content) Reason Comments Urinary Problem burning with urinati on, cough, congestion and wheezing x 1 day Reason Comments Results, Lab Results Reason Comments Results Reason Comments Nausea & Vomiting Fever started today Care Teams (unrecognized sec tion and content) Commodity Lead Relationship Specialty Start Date End Date Rocky Barlow Chi [address] [id number] PCP - General Family Practice 09/24/12 Bartolo Philippe [address] [place] [address] Referring Ophthalmology 12/30/18 Commodity Lead Relationship Specialty Start Date End Date Rocky Barlow Chi [address] [place], [place] [id number] PCP - General Family Practice 09/24/12 Bartolo Philippe [address] [place], [place] [id number] Referring Ophthalmology 12/30/18 Commodity Lead Relationship Specialty Start Date End Date Cain Rocky Montes [address] [facility] [address] [place], [place] [id number] PCP - General Family Practice 09/24/12 Bartolo Philippe [address] [facility] [place] [id number] Referring Ophthalmology 12/30/18 Team Status: Active Member [...] Provider A ctive Dr. Jeni Ann , Attending Provider, Other Provide r Active Team [...] Provider A ctive Dr. Jeni Ann , Attending Provider Active Team Status: Inactive Member [...] May 18, 2024 End: May 18, 2024 XUAN Vines Attending Provider Active Start: May 18, 2024 [...] August 10, 2024 End: August 10, 2024 Commodity Lead Relationship Specialty Start Date End Date Rocky Barlow Chi [address] [place], [place] [address] PCP - General Family Medicine 09/24/12 Bartolo Philippe MD [address] [place], [place] [address] Referring Ophthalmology 12/30/18 Team Status: Active Member Role/Relationship Status Dates Dr. Michelle Marroquin MD Primary Care Provider Active Team Status: Inactive Member Role/Relationship Status Dates Dr. Michelle Marroquin MD Primary Care Provider Active Start: May 18, 2024 End: May 18, 2024 Dr. Michelle Marroquin MD Referring Provider Active Start: May 18, 2024 End: May 18, 2024 Christ Aguirre PA, PA Attending Provider Active Start: May 18, 2024 End: May 18, 2024 Team Status: Inactive Member Role/Relationship Status Dates Dr. Michelle Marroquin MD Primary Care Provider Active Start: June 11, 2024 End: June 11, 2024 Dr. Michelle Marroquin MD Attending Provider Active Start: June 11, 2024 End: June 11, 2024 Dr. iMchelle Marroquin MD Referring Provider Active Start: June 11, 2024 End: June 11, 2024 Team Status: Inactive Member Role/Relationship Status Dates Dr. Michelle Marroquin MD Primary Care Provider Active Start: June 11, 2024 End: June 11, 2024 Dr. Michelle Marroquin MD Attending Provider Active Start: June 11, 2024 End: June 11, 2024 Dr. Michelle Marroquin MD Referring Provider Active Start: June 11, 2024 End: June 11, 2024 Team Status: Inactive Member Role/Relationship Status Dates Dr. Michelle Marroquin MD Primary Care Provider Active Start: August 10, 2024 End: August 10, 2024 Dr. Michelle Marroquin MD Referring Provider Active Start: August 10, 2024 End: August 10, 2024 Christ GOVEA, PA Attending Provider Active Start: August 10, 2024 End: August 10, 2024 Team Status: Active Member Role/Relationship Status Dates Dr. Michelle Marroquin MD Primary Care Provider Active Start: September 05, 2024 Dr. Dominguez Bolton MD Emergency Provider Active S tart: September 05, 2024 Dr. Jeni Ann DO Admit Provider Active Start : September 05, 2024 Dr. Jeni Ann DO Attending Provider Active S tart: September 05, 2024 Team Status: Inactive Member Role/Relationship Status Dates Dr. Michelle Marroquin MD Primary Care Provider Active Start: September 05, 2024 End: September 07, 2024 Dr. Dominguez Bolton MD Emergency Provider Active S tart: September 05, 2024 End: September 07, 2024 Dr. Jeni Ann DO Admit Provider Active Start : September 05, 2024 End: September 07, 2024 Dr. Jeni Ann DO Attending Provider Active S tart: September 05, 2024 End: September 07, 2024 Dr. Jeni Ann DO Other Provider Active Start : September 05, 2024 Team Status: Active Member Role/Relationship Status Dates Dr. Michelle Marroquin MD Primary Care Provider Active Start: September 06, 2024 Dr. Dominguez Bolton MD Emergency Provider Active S tart: September 06, 2024 Dr. Jeni Ann DO Admit Provider Active Start : September 06, 2024 Dr. Jeni Ann DO Attending Provider Active S tart: September 06, 2024 Dr. Jeni Ann DO Other Provider Active Start : September 06, 2024 Team Status: Active Member Role/Relationship Status Dates Dr. Michelle Marroquin MD Primary Care Provider Active Start: September 06, 2024 Dr. Dominguez Bolton MD Emergency Provider Active S tart: September 06, 2024 Dr. Jeni Ann DO Admit Provider Active Start : September 06, 2024 Dr. Jeni Ann DO Other Provider Active Start : September 06, 2024 Dr. Stalin Kuhn DO Attending Provider Active Start: September 06, 2024 Team Status: Active Member Role/Relationship Status Dates Dr. Michelle Marroquin MD Primary Care Provider Active Start: September 07, 2024 Dr. Dominguez Bolton MD Emergency Provider Active S tart: September 07, 2024 Dr. Jeni Ann DO Admit Provider Active Start : September 07, 2024 Dr. Jeni Ann DO Attending Provider Active S tart: September 07, 2024 Dr. Jeni Ann DO Other Provider Active Start : September 07, 2024 Team Status: Inactive Member Role/Relationship Status Dates Dr. Michelle Marroquin MD Primary Care Provider Active Start: June 11, 2024 End: June 11, 2024 Dr. Michelle Marroquin MD Attending Provider Active Start: June 11, 2024 End: June 11, 2024 Dr. Michelle Marroquin MD Referring Provider Active Start: June 11, 2024 End: June 11, 2024 Team Status: Inactive Member Role/Relationship Status Dates Dr. Michelle Marroquin MD Primary Care Provider Active Start: August 10, 2024 End: August 10, 2024 Dr. Michelle Marroquin MD Referring Provider Active Start: August 10, 2024 End: August 10, 2024 Christ GOVEA, PA Attending Provider Active Start: August 10, 2024 End: August 10, 2024 Team Status: Inactive Member Role/Relationship Status Dates Dr. Michelle Marroquin MD Primary Care Provider Active Start: September 05, 2024 End: September 07, 2024 Dr. Dominguez Bolton MD Emergency Provider Active S tart: September 05, 2024 End: September 07, 2024 Dr. Jeni Ann DO Admit Provider Active Start : September 05, 2024 End: September 07, 2024 Dr. Jeni Ann DO Attending Provider Active S tart: September 05, 2024 End: September 07, 2024 Dr. Jeni Ann DO Other Provider Active Start : September 05, 2024 Team Status: Active Member Role/Relationship Status Dates Dr. Michelle Marroquin MD Primary Care Provider Active Start: September 06, 2024 End: September 06, 2024 Dr. Panfilo Reese MD Attending Provider Active S tart: September 06, 2024 End: September 06, 2024 Dr. Jeni Ann DO Referring Provider Active S tart: September 06, 2024 End: September 06, 2024 Team Status: Inactive Member Role/Relationship Status Dates Dr. Michelle Marroquin MD Primary Care Provider Active Start: September 21, 2024 End: September 21, 2024 Dr. Michelle Marroquin MD Referring Provider Active Start: September 21, 2024 End: September 21, 2024 XUAN De La Paz Attending Provider Active Start: September 21, 2024 End: September 21, 2024 FOR RECORDS PERTAINING TO PATIENTS WHO ARE [...] BE BASED ON THE PRIMARY CLINICAL RECORDS. [facility] [employer] provides no warranty or guarantee of the accuracy or completeness of information in this document.
--- OUTSIDE RECORDS SUMMARY | 2024-09-21 21:53 | XMS RPT_ITS | CCD ---
Author Organization [facility] CliniSyla Care Team Providers Care Cyber Threat Analyst Name Role Phone Yang Abrams Unavailable Unavailable Cain, Rocky-Chi Unavailable Unavailable Yang Abrams Unavailable Unavailable Cain, Rocky-Chi Unavailable Unavailable AMINIAN, ALI Unavailable Unavailable AMINIAN, ALI Unavailable Unavailable AMINIAN, ALI Unavailable Unavailable Cain, Rocky Chi Primary Care Provider 1([facility])[phone] Rocky Barlow Chi Primary Care Provider 1([facility])[phone] Dr. Shazia Fortune Emergency Provider 1([facility])[phone] Dr. Maximiliano Ortiz Admit Provider Dr. Maximiliano Ortiz Attending Provider 1([facility])[phone] Maximiliano Ortiz Other Provider Dr. Jeni Ann Attending Provider 1([facility])[phone] Jeni Ann Other Provider Dr. Rocky Barlow Chi Primary Care Provider 1([facility])[phone] Dr. Shazia Fortune Emergency Provider 1([facility])[phone] Dr. Maximiliano Ortiz Admit Provider Dr. Maximiliano Ortiz Attending Provider 1([facility])[phone] Maximiliano Ortiz Other Provider Dr. Jeni Ann Attending Provider 1([facility])[phone] Jeni Ann Other Provider Dr. Rocky Barlow Chi Referring Provider 1([facility])[phone] XUAN Pope Attending Provider 1([facility])[phone] Lopez LEVY, Dr. Martinez Primary Care Provider Gregory Coleman MD Attending Provider Gregory Coleman MD Emergency Provider Lopez LEVY, Dr. Martinez Attending Provider [phone] Lopez LEVY, Dr. Martinez Referring Provider [phone] Christ Saldivar Attending Provider Lopez LEVY, Dr. Martinez Primary Care Provider Cain, Rocky Chi Primary Care Provider Denae LEVY, Bartolo Ervin Unavailable CAIN, ROCKY CHI Primary Care Unavailable HAJA COLEY Attending Unavailable Lopez LEVY, Dr. Martinez Primary Care Provider Dr. Michelle Marroquin MD Referring Provider [phone] Lopez LEVY, Dr. Martinez Attending Provider [phone] Dr. Dominguez Bolton MD Emergency Provider [phone] Provider Dr. Panfilo Reese MD Attending Provider [phone] Dr. Jeni Ann DO Referring Provider [phone] Brigitte Keating Attending Provider [phone] Allergies Allergy Classification Reported Allergen(s) Allergy Type Date of Onset Reaction(s) Facility (7 sources) AMOXICILLIN-POT CLAVULANATE; Translations: [AMOXICILLIN-POT CLAVULANATE] Propensity to adverse reactions to drug (disorder) 1 Diarrhea [facility] Repository (2 sources) OTHER; Translations: [OTHER] Propensity to adverse reactions (disorder) 5 [facility] Repository (20 sources) Amoxicillin; Translations: [amoxicillin trihydrate] Drug Allergy [address] [facility] (20 sources) potassium clavulanate; Translations: [potassium clavulanate] Propensity to adverse reactions Unknown [facility] (6 sources) Potassium; Translations: [POTASSIUM] Drug Allergy 9 Intolerance [facility] Work Phone: (5 sources) OTHER [Other] Propensity to adverse reactions 5 [facility] Work Phone: Medications Current Medications Medication Drug [...] sources) Provitamin D2 Compound Start: 11-13-2018 take 41533 [IU] by mouth every month Ergocalciferol (Vitamin D2) Active 15360 UNIT PO EVERY MONTH November 13, 2018 [...] September 07, 2024 12:00am polyethylene glycol 3350 81982 mg powder for oral solution (12 sources) Osmotic Laxative Start: 08-08-2018 Polyethylene Glycol 3350 Active 17 GM BC DAILY August 08, 2018 12:00am Comment on above: Take 17 g by mouth o nce daily. sennosides, fdc 8.6 mg oral tablet (12 sources) Start: [...] sources) Long-term current use of anticoagulant; Translations: [correction (current) use of anticoagulants] 06-13-2023 Episodic Other [...] 09-07-2024 Anion gap [Moles/Vol] 9 mmol/L 07-22 [facility] BUN/creatinine ratioOrdered By: Jeni Ann on 09-07-2024 Urea nitrogen/Creatinine [Mass ratio] 14.1 mg/mg 12-[address] [facility] Basic Metabolic Profile (BMP )on 09-07-2024 BUN/CRE 14.1 RATIO Normal 12-[address] [facility] Comment on above: Performed By: #### L 501.9520, L100.0100, L501.2300, L500.4050, L501.5200 #### [facility] [address] [place], [address] Calcium [Mass/Vol] 8.3 mg/dL Normal 7.6-11.0 [facility] Comment on above: Performed By: #### L 501.9520, L100.0100, L501.2300, L500.4050, L501.5200 #### [facility] [address] [place], [address] Chloride [Moles/Vol] 107 mmol/L Normal 98-108 [facility] Comment on above: Performed By: #### L 501.9520, L100.0100, L501.2300, L500.4050, L501.5200 #### [facility] [address] [place], [address] CO2 [Moles/Vol] 24.0 mmol/L Normal 21.0-32.[address] [facility] Comment on above: Performed By: #### L 501.9520, L100.0100, L501.2300, L500.4050, L501.5200 #### [facility] [address] [place], [address] Creatinine [Mass/Vol] 0.47 mg/dL Low 0.70-1.20 [facility] Comment on above: Performed By: #### L 501.9520, L100.0100, L501.2300, L500.4050, L501.5200 #### [facility] [address] [place], [address] ECRCL 101.08 ml/min Normal 50-[address] [facility] Comment on above: Performed By: #### L 501.9520, L100.0100, L501.2300, L500.4050, L501.5200 #### [facility] [address] [place], [address] GAP 9 Normal 5-[address] [facility] Comment on above: Performed By: #### L 501.9520, L100.0100, L501.2300, L500.4050, L501.5200 #### [facility] [address] [place], [address] GFR/1.73 sq M.predicted among non-blacks MDRD (S/P/Bld) [Vol rate/Area] 107 mL/min/{1.73_m2} Normal >[address] [facility] Comment on above: Result Comment: mL/m in/1.73m2 CKD-EPI Creatinine Equation (2020) Performed By: #### L 501.9520, L100.0100, L501.2300, L500.4050, L501.5200 #### [facility] [address] [place], [address] Glucose [Mass/Vol] 107 mg/dL High 70-99 [facility] Comment on above: Performed By: #### L 501.9520, L100.0100, L501.2300, L500.4050, L501.5200 #### [facility] [address] [place], [address] Potassium [Moles/Vol] 3.9 mmol/L Normal 3.3-5.1 [facility] Comment on above: Performed By: #### L 501.9520, L100.0100, L501.2300, L500.4050, L501.5200 #### [facility] [address] [place], [id number] Sodium [Moles/Vol] 140 mmol/L Normal 133-145 [facility] Comment on above: Performed By: #### L 501.9520, L100.0100, L501.2300, L500.4050, L501.5200 #### [facility] [address] [place], [id number] Urea nitrogen [Mass/Vol] 7 mg/dL Normal 4-[address] [facility] Comment on above: Performed By: #### L 501.9520, L100.0100, L501.2300, L500.4050, L501.5200 #### [facility] [address] [place], [address] CBC-Complete Blood Cnt No Di ffon 09-07-2024 Erythrocyte distribution width (RBC) [Ratio] 13.9 % Normal 11.6-14.[address] [facility] Comment on above: Performed By: #### L 501.9520, L100.0100, L501.2300, L500.4050, L501.5200 #### [facility] [address] [place], [id number] Hematocrit (Bld) [Volume fraction] 35.5 % Low 37-[address] [facility] Comment on above: Performed By: #### L 501.9520, L100.0100, L501.2300, L500.4050, L501.5200 #### [facility] [address] [place], [id number] Hemoglobin (Bld) [Mass/Vol] 11.7 g/dL Low 12.0-15.[address] [facility] Comment on above: Performed By: #### L 501.9520, L100.0100, L501.2300, L500.4050, L501.5200 #### [facility] [address] [place], [address] MCH (RBC) [Entitic mass] 31.8 pg Normal 27.0-32.[address] [facility] Comment on above: Performed By: #### L 501.9520, L100.0100, L501.2300, L500.4050, L501.5200 #### [facility] [address] [place], [address] MCHC (RBC) [Mass/Vol] 33.0 g/dL Normal 32-36 [facility] Comment on above: Performed By: #### L 501.9520, L100.0100, L501.2300, L500.4050, L501.5200 #### [facility] [address] [place], [address] MCV (RBC) [Entitic vol] 96.5 fL Normal 81-99 [facility] Comment on above: Performed By: #### L 501.9520, L100.0100, L501.2300, L500.4050, L501.5200 #### [facility] [address] [place], [address] Platelet mean volume (Bld) [Entitic vol] 10.9 fL Normal 6.2-12.[address] [facility] Comment on above: Performed By: #### L 501.9520, L100.0100, L501.2300, L500.4050, L501.5200 #### [facility] [address] [place], [address] Platelets (Bld) [#/Vol] 249 10*3/uL Normal 150-[address] [facility] Comment on above: Performed By: #### L 501.9520, L100.0100, L501.2300, L500.4050, L501.5200 #### [facility] [address] [place], [address] RBC (Bld) [#/Vol] 3.68 10*6/uL Low 4.2-5.4 [facility] Comment on above: Performed By: #### L 501.9520, L100.0100, L501.2300, L500.4050, L501.5200 #### [facility] [address] [place], [address] RDW SD 49.5 fl High 35.1-43.[address] [facility] Comment on above: Performed By: #### L 501.9520, L100.0100, L501.2300, L500.4050, L501.5200 #### [facility] [address] [place], [address] WBC (Bld) [#/Vol] 6.6 10*3/uL Normal 4.4-11.0 [facility] Comment on above: Performed By: #### L 501.9520, L100.0100, L501.2300, L500.4050, L501.5200 #### [facility] [address] [place], [address] Carbon dioxide, total [Moles /volume] in Central venous bloodOrdered By: Jeni Ann on 09-07-2024 CO2 [Moles/Vol] 24.0 mmol/L 21.0-32.[address] [facility] Chloride assayOrdered By: Dayday Ann on 09-07-2024 Chloride [Moles/Vol] 107 mmol/L 98-108 [facility] Electrocardiogram reportOrde red By: Panfilo Reese on 09-07-2024 EKG study [facility] [address] [place] [address] 12 Lead EKG 09/06/24 0544 MR#: [id number] Acct: [id number] Name: BREATONYAVIKI MAYA Rep #:[id number] : [...] Normal ECG Confirmed by ALISHA LEVY, PANFILO ([id number]), editor in chief GERRI ARMIJO ([id number]) on 09/07/2024 1:37:55 PM Referred By: Seth Confirmed By: PANFILO REESE MD 09/07/24 1338 Date _ Panfilo Reese MD CC: Dr. Grey Roberts MD; Dr. Michelle Marroquin MD; Dr. Jeni Ann, ~ Signed [facility] Other Phone: Erythrocyte distribution wid th ratioOrdered By: Jeni Ann on 09-07-2024 Erythrocyte distribution width (RBC) [Ratio] 13.9 % 11.6-14.[address] [facility] Erythrocyte distribution wid th standard deviationOrdered By: Jeni Ann on 09-07-2024 Erythrocyte distribution width (RBC) [Ratio] 49.5 fl High 35.1-43.[address] [facility] Glomerular filtration rate ( GFR) estimation/1.73 sq m using serum, plasma, or whole bOrdered By: Jeni Ann on 09-07-2024 GFR/1.73 sq M.predicted among non-blacks MDRD (S/P/Bld) [Vol rate/Area] 107 mL/min/{1.73_m2} >[address] [facility] Comment on above: mL/min/1.73m2 CKD-EP I Creatinine Equation (2020) Hematocrit Auto (Bld) [Volum e fraction]Ordered By: Jeni Ann on 09-07-2024 Hematocrit (Bld) [Volume fraction] 35.5 % Low 37-[address] [facility] Hemoglobinon 09-07-2024 Hemoglobin (Bld) [Mass/Vol] 12.9 g/dL Normal 12.0-15.[address] [facility] Comment on above: Order Comment: PREVI OUS SPECIMEN HEMOLYZED Performed By: #### L 100.1300 #### [facility] [place], [address] Hemoglobin measurementOrdere d By: Jeni Ann on 09-07-2024 Hemoglobin (Bld) [Mass/Vol] 12.9 g/dL 12.0-15.[address] [facility] MCV (mean corpuscular volume ) determinationOrdered By: Jeni Ann on 09-07-2024 MCV (RBC) [Entitic vol] 96.5 fL 81-99 [facility] Mean corpuscular hemoglobin (MCH) determinationOrdered By: Jeni Ann on 09-07-2024 MCH (RBC) [Entitic mass] 31.8 pg 27.0-32.[address] [facility] Mean corpuscular hemoglobin concentration (MCHC) determinationOrdered By: Jeni Ann on 09-07-2024 MCHC (RBC) [Mass/Vol] 33.0 g/dL 32-36 [facility] Mean platelet volume determi nationOrdered By: Jeni Ann on 09-07-2024 Platelet mean volume (Bld) [Entitic vol] 10.9 fL 6.2-12.[address] [facility] Platelet countOrdered By: Dayday Ann on 09-07-2024 Platelets (Bld) [#/Vol] 249 10*3/uL 150-[address] [facility] Potassium measurement (mass/ volume)Ordered By: Jeni Ann on 09-07-2024 Potassium (Unsp spec) [Mass/Vol] 3.9 mmol/L 3.3-5.[address] [facility] RBC Auto (Bld) [#/Vol]Ordere d By: Jeni Ann on 09-07-2024 RBC (Bld) [#/Vol] 3.68 10*6/uL Low 4.2-5.4 [facility] Serum creatinine measurement (mass/volume)Ordered By: Jeni Ann on 09-07-2024 Creatinine [Mass/Vol] 0.47 mg/dL Low 0.70-1.20 [facility] Serum glucose measurement (m ass/volume)Ordered By: Jeni Ann on 09-07-2024 Glucose [Mass/Vol] 107 mg/dL High 70-99 [facility] Serum or plasma calcium kamilah urement (mass/volume)Ordered By: Jeni Ann on 09-07-2024 Calcium [Mass/Vol] 8.3 mg/dL 7.6-11.0 [facility] Serum or plasma urea nitroge n measurement (mass/volume)Ordered By: Jeni Ann on 09-07-2024 Urea nitrogen [Mass/Vol] 7 mg/dL 4-[address] [facility] Sodium levelOrdered By: Shaunna Ann on 09-07-2024 Sodium [Moles/Vol] 140 mmol/L 133-145 [facility] White blood cell (WBC) count Ordered By: Jeni Ann on 09-07-2024 WBC (Bld) [#/Vol] 6.6 10*3/uL 4.4-11.0 [facility] 12 Lead EKGon 09-06-2024 12 Lead EKG [facility] [address] [place] [address] 12 Lead EKG 09/06/24 0544 MR#: [id number] Acct: [id number] Name: TONYA FLETCHER Rep #: [id number] : 1960 64 From: Panfilo Reese MD Attending Dr: Dr. Jeni Ann, DO Status: ADM I N Ordering Dr: Grey Roberts MD Date: 09/06/24 Location: [place] Sex: F C Admitted: 09/05/24 Test Reason : am ekg Blood Pressure : */* mmHG Vent. Rate : 78 BPM Atrial Rate : 78 BPM P-R Int : 130 ms QRS Dur : 58 ms QT Int : 388 ms P-R-T Axes : 1 26 28 degrees QTcB Int : 442 ms Normal sinus rhythm Normal ECG Confirmed by PANFILO REESE MD ([id number]), editor in chief GERRI ARMIJO ([id number]) on 09/07/2024 1:37:55 PM Referred By: Seth Confirmed By: PANFILO REESE MD 09/07/24 1338 Date Panfilo Reese MD CC: Dr. Grey Roberts MD; Dr. Michelle Marroquin MD; Dr. Jeni Ann, DO Signed Normal [facility] Absolute lymphocyte countOrd ered By: Jeni Ann on 09-06-2024 Lymphocytes Auto (Unsp spec) [#/Vol] 2.85 10*3/uL 0.83-4.[address] [facility] Absolute neutrophil countOrd ered By: Jeni Ann on 09-06-2024 Neutrophils (Bld) [#/Vol] 3.5 10*3/uL 2.0-7.[address] [facility] Automated lymphocyte count a s percentage of total leukocytesOrdered By: Jeni Ann on 09-06-2024 Lymphocytes/100 WBC Auto (Unsp spec) 40.6 % 19-[address] [facility] Basophil percentageOrdered B y: Jeni Ann on 09-06-2024 Basophils/100 WBC (Bld) 0.7 % 0-1 [facility] Bilirubin, totalOrdered By: Jeni Ann on 09-06-2024 Bilirubin [Mass/Vol] 0.53 mg/dL 0.00-1.30 [facility] CBC W/Diff, Automatedon 08-10 Absolute Lymph 2.85 X10 3/uL Normal 0.83-4.[address] [facility] Comment on above: Performed By: #### L 501.9520, L100.0100, L501.2300, L500.4050, L501.5200 #### [facility] [address] [place], [address] Absolute Neut 3.5 X10 3/uL Normal 2.0-7.[address] [facility] Comment on above: Performed By: #### L 501.9520, L100.0100, L501.2300, L500.4050, L501.5200 #### [facility] [address] [place], [address] Basophils/100 WBC (Bld) 0.7 % Normal 0-1 [facility] Comment on above: Performed By: #### L 501.9520, L100.0100, L501.2300, L500.4050, L501.5200 #### [facility] [address] [place], [address] Eosinophils/100 WBC (Bld) 2.8 % Normal 0-[address] [facility] Comment on above: Performed By: #### L 501.9520, L100.0100, L501.2300, L500.4050, L501.5200 #### [facility] [address] [place], [address] Erythrocyte distribution width (RBC) [Ratio] 13.8 % Normal 11.6-14.[address] [facility] Comment on above: Performed By: #### L 501.9520, L100.0100, L501.2300, L500.4050, L501.5200 #### [facility] [address] [place], [address] Hematocrit (Bld) [Volume fraction] 36.6 % Low 37-[address] [facility] Comment on above: Performed By: #### L 501.9520, L100.0100, L501.2300, L500.4050, L501.5200 #### [facility] [address] [place], [address] Hemoglobin (Bld) [Mass/Vol] 12.1 g/dL Normal 12.0-15.[address] [facility] Comment on above: Performed By: #### L 501.9520, L100.0100, L501.2300, L500.4050, L501.5200 #### [facility] [address] [place], [address] IG% 0.300 Normal 0.0-0.[address] [facility] Comment on above: Result Comment: IG% - Immature Granulocytes (promyelocytes, myelocytes and metamyelocytes) > 1% indicates that a LEFT SHIFT is Present. Performed By: #### L 501.9520, L100.0100, L501.2300, L500.4050, L501.5200 #### [facility] [address] [place], [address] Lymphocytes/100 WBC (Bld) 40.6 % Normal 19-[address] [facility] Comment on above: Performed By: #### L 501.9520, L100.0100, L501.2300, L500.4050, L501.5200 #### [facility] [address] [place], [address] MCH (RBC) [Entitic mass] 32.0 pg Normal 27.0-32.[address] [facility] Comment on above: Performed By: #### L 501.9520, L100.0100, L501.2300, L500.4050, L501.5200 #### [facility] [address] [place], [address] MCHC (RBC) [Mass/Vol] 33.1 g/dL Normal 32-36 [facility] Comment on above: Performed By: #### L 501.9520, L100.0100, L501.2300, L500.4050, L501.5200 #### [facility] [address] [place], [address] MCV (RBC) [Entitic vol] 96.8 fL Normal 81-99 [facility] Comment on above: Performed By: #### L 501.9520, L100.0100, L501.2300, L500.4050, L501.5200 #### [facility] [address] [place], [address] Monocytes/100 WBC (Bld) 5.8 % Normal 0-10 [facility] Comment on above: Performed By: #### L 501.9520, L100.0100, L501.2300, L500.4050, L501.5200 #### [facility] [address] [place], [address] Neutrophils/100 WBC (Bld) 49.8 % Normal 47-[address] [facility] Comment on above: Performed By: #### L 501.9520, L100.0100, L501.2300, L500.4050, L501.5200 #### [facility] [address] [place], [address] Nucleated RBC (Bld) [#/Vol] 0 10*3/uL Normal 0-[address] [facility] Comment on above: Performed By: #### L 501.9520, L100.0100, L501.2300, L500.4050, L501.5200 #### [facility] [address] [place], [address] Platelet mean volume (Bld) [Entitic vol] 11.0 fL Normal 6.2-12.[address] [facility] Comment on above: Performed By: #### L 501.9520, L100.0100, L501.2300, L500.4050, L501.5200 #### [facility] [address] [place], [address] Platelets (Bld) [#/Vol] 270 10*3/uL Normal 150-[address] [facility] Comment on above: Performed By: #### L 501.9520, L100.0100, L501.2300, L500.4050, L501.5200 #### [facility] [address] [place], [address] RBC (Bld) [#/Vol] 3.78 10*6/uL Low 4.2-5.4 [facility] Comment on above: Performed By: #### L 501.9520, L100.0100, L501.2300, L500.4050, L501.5200 #### [facility] [address] [place], [address] RDW SD 49.1 fl High 35.1-43.[address] [facility] Comment on above: Performed By: #### L 501.9520, L100.0100, L501.2300, L500.4050, L501.5200 #### [facility] [address] [place], [address] WBC (Bld) [#/Vol] 7.0 10*3/uL Normal 4.4-11.0 [facility] Comment on above: Performed By: #### L 501.9520, L100.0100, L501.2300, L500.4050, L501.5200 #### [facility] [address] [place], [address] Comprehensive Metabolic Prof [facility] 09-06-2024 Albumin [Mass/Vol] 3.5 g/dL Normal 3.4-4.8 [facility] Comment on above: Performed By: #### L 501.9520, L100.0100, L501.2300, L500.4050, L501.5200 #### [facility] [address] [place], [address] Albumin/Globulin [Mass ratio] 1.4 {ratio} Normal 0.9-2.[address] [facility] Comment on above: Performed By: #### L 501.9520, L100.0100, L501.2300, L500.4050, L501.5200 #### [facility] [address] [place], [address] ALK PHOS 80 U/L Normal 35-[address] [facility] Comment on above: Performed By: #### L 501.9520, L100.0100, L501.2300, L500.4050, L501.5200 #### [facility] [address] [place], [address] ALT [Catalytic activity/Vol] U/L Normal <=[address] [facility] Comment on above: Performed By: #### L 501.9520, L100.0100, L501.2300, L500.4050, L501.5200 #### [facility] [address] [place], [address] AST [Catalytic activity/Vol] 13 U/L Normal <=[address] [facility] Comment on above: Performed By: #### L 501.9520, L100.0100, L501.2300, L500.4050, L501.5200 #### [facility] [address] [place], [address] Bilirubin [Mass/Vol] 0.53 mg/dL Normal 0.00-1.30 [facility] Comment on above: Performed By: #### L 501.9520, L100.0100, L501.2300, L500.4050, L501.5200 #### [facility] [address] [place], [address] BUN/CRE 14.4 RATIO Normal 10-[address] [facility] Comment on above: Performed By: #### L 501.9520, L100.0100, L501.2300, L500.4050, L501.5200 #### [facility] [address] [place], [address] Calcium [Mass/Vol] 8.9 mg/dL Normal 7.6-11.0 [facility] Comment on above: Performed By: #### L 501.9520, L100.0100, L501.2300, L500.4050, L501.5200 #### [facility] [address] [place], [address] Chloride [Moles/Vol] 108 mmol/L Normal 98-108 [facility] Comment on above: Performed By: #### L 501.9520, L100.0100, L501.2300, L500.4050, L501.5200 #### [facility] [address] [place], [address] CO2 [Moles/Vol] 24.4 mmol/L Normal 21.0-32.[address] [facility] Comment on above: Performed By: #### L 501.9520, L100.0100, L501.2300, L500.4050, L501.5200 #### [facility] [address] [place], [address] Creatinine [Mass/Vol] 0.49 mg/dL Low 0.70-1.20 [facility] Comment on above: Performed By: #### L 501.9520, L100.0100, L501.2300, L500.4050, L501.5200 #### [facility] [address] [place], [address] ECRCL 92.72 ml/min Normal 50-[address] [facility] Comment on above: Performed By: #### L 501.9520, L100.0100, L501.2300, L500.4050, L501.5200 #### [facility] [address] [place], [address] GAP 10 Normal 5-[address] [facility] Comment on above: Performed By: #### L 501.9520, L100.0100, L501.2300, L500.4050, L501.5200 #### [facility] [address] [place], [address] GFR/1.73 sq M.predicted among non-blacks MDRD (S/P/Bld) [Vol rate/Area] 106 mL/min/{1.73_m2} Normal >[address] [facility] Comment on above: Result Comment: mL/m in/1.73m2 CKD-EPI Creatinine Equation (2020) Performed By: #### L 501.9520, L100.0100, L501.2300, L500.4050, L501.5200 #### [facility] [address] [place], [address] Globulin (S) [Mass/Vol] 2.6 g/dL Normal 2.2-4.2 [facility] Comment on above: Performed By: #### L 501.9520, L100.0100, L501.2300, L500.4050, L501.5200 #### [facility] [address] [place], [address] Glucose [Mass/Vol] 99 mg/dL Normal 70-99 [facility] Comment on above: Performed By: #### L 501.9520, L100.0100, L501.2300, L500.4050, L501.5200 #### [facility] [address] [place], [address] Potassium [Moles/Vol] 3.7 mmol/L Normal 3.3-5.1 [facility] Comment on above: Performed By: #### L 501.9520, L100.0100, L501.2300, L500.4050, L501.5200 #### [facility] [address] [place], [address] Sodium [Moles/Vol] 142 mmol/L Normal 133-145 [facility] Comment on above: Performed By: #### L 501.9520, L100.0100, L501.2300, L500.4050, L501.5200 #### [facility] [address] [place], [address] T PROT 6.1 g/dL Normal 5.9-8.[address] [facility] Comment on above: Performed By: #### L 501.9520, L100.0100, L501.2300, L500.4050, L501.5200 #### [facility] [address] [place], [address] Urea nitrogen [Mass/Vol] 7 mg/dL Normal 4-[address] [facility] Comment on above: Performed By: #### L 501.9520, L100.0100, L501.2300, L500.4050, L501.5200 #### [facility] [address] [place], [address] EGD Reporton 09-06-2024 EGD Report [facility] Medical Records Department [address] [place] [address] EGD Report MR#: [id number] Acct: [id number] Name: TONYA FLETCHER Rep #: [id number] : 1960 64 From: Stalin Kuhn DO PCP: Dr. Michelle Marroquin MD Status:ADM IN Patient Name: Tonya Fletcher Procedure Date: [...] present medications. Procedure Code(s): --- Professional --- 87347, Small intestinal endoscopy, enteroscopy beyond second portion of duodenum, not including ileum; with biopsy, single or multiple CPT copyright 2021 [employer]. All rights reserved. The codes documented in this report are preliminary and upon industrial management teacher review may be revised to meet current compliance requirements. Stalin Kuhn DO 09/06/2024 1:43:16 PM This report has been signed electronically. Number of Addenda: 0 Note Initiated On: 09/06/2024 1:13 PM 09/06/24 1343 Date Stalin Kuhn DO Cosigner Signature: Date (if indicated) CC: Dr. Michelle Marroquin MD; Stalin Kuhn DO (more content not included)... Normal [facility] Eosinophil percentageOrdered By: Jeni Ann on 09-06-2024 Eosinophils/100 WBC (Bld) 2.8 % 0-[address] [facility] HH, Hemoglobin AND Hematocri ton 09-06-2024 Hematocrit (Bld) [Volume fraction] 37.4 % Normal 37-[address] [facility] Comment on above: Order Comment: RE-TI MED TO 6HRS POST MORNING LABS-PER PAULINO BATES Performed By: #### L 501.9520, L100.0100, L501.2300, L500.4050, L501.5200 #### [facility] [address] [place], [address] Hemoglobin (Bld) [Mass/Vol] 12.2 g/dL Normal 12.0-15.[address] [facility] Comment on above: Order Comment: RE-TI MED TO 6HRS POST MORNING LABS-PER PAULINO BATES Performed By: #### L 501.9520, L100.0100, L501.2300, L500.4050, L501.5200 #### [facility] [address] [place], [address] Hematocrit (Bld) [Volume fraction] 36.6 % Low 37-[address] [facility] Comment on above: Performed By: #### L 100.0600 #### [facility] [address] [facility] [place], [address] Hemoglobin (Bld) [Mass/Vol] 12.2 g/dL Normal 12.0-15.[address] [facility] Comment on above: Performed By: #### L 100.0600 #### [facility] [address] [place], [address] Immature granulocytes/100 WB C Auto (Bld)Ordered By: Jeni Ann on 09-06-2024 Immature granulocytes/100 WBC (Bld) 0.300 % 0.0-0.[address] [facility] Comment on above: IG% - Immature Granu locytes (promyelocytes, myelocytes and metamyelocytes) > 1% indicates that a LEFT SHIFT is Present. Laboratory - Chemistry and C hemistry - challengeOrdered By: Jeni Ann on 09-06-2024 AST [Catalytic activity/Vol] 13 U/L <[address] [facility] MR/POSTOP.ANEon 09-06-2024 MR/POSTOP.ANE [facility] Medical Records Department [address] [place] [address] Anesthesia Postop Eval I 09/06/24 1344 MR#: [id number] Acct: [id number] Name: TONYA FLETCHER Rep #: [id number] : 1960 64 From: Brian Su CRNA PCP: Dr. Michelle Marroquin MD Status:ADM IN Y Race: C Location: [place] [address] Anesthesia: Postop Eval I Current Vital Signs Temperature: 97 F Pulse Rate: 90 Blood Pressure: 101/50 Respiratory Rate: 16 Pulse Ox: 94 Assessment Airway patent: Yes Spontaneous unlabored respirations: Yes nausea: No Vomiting: No Anesthesia Complication: No Fluid Hydration Crystalloid volume administer (ml): 400 Total IV fluid infused: 400 Progress Note Anesthesia document: Postop Eval 1 completed: Yes 09/06/24 1345 Date Brian Richardsonbitt BRINE TANK SEPARATOR OPERATOR Cosigner Signature: Date CC: Signed Normal [facility] MR/[id number] 09-06-2024 [facility] Medical Records Department [address] [place] [address] Anesthesia Postop Eval II 09/06/24 1645 MR#: [id number] Acct: [id number] Name: TONYA FLETCHER Rep #: [id number] : 1960 64 From: Arlet Mcdonald CRNA PCP: Dr. Michelle Marroquin MD Status:ADM IN Y Race: C Location: [place] [address]1 Anesthesia Postop Eval I Sum Postop Eval Completion status Anesthesia document: Postop Eval 1 completed: Yes Anesthesia Postop Eval I Summary Anesthesia Postop Eval I Summary: Anesthesia Postop Eval I: Assessment Summary Airway patent Yes 09/06/24 13:44 BRINE TANK SEPARATOR OPERATOR.TNES Spontaneous unlabored Yes 09/06/24 13:44 BRINE TANK SEPARATOR OPERATOR.TNES respirations Mental status nausea No 09/06/24 13:44 BRINE TANK SEPARATOR OPERATOR.TNES Vomiting No 09/06/24 13:44 BRINE TANK SEPARATOR OPERATOR.TNES Anesthesia Postop Eval I: Fluid Summary Crystalloid volume administer 400 09/06/24 13:44 BRINE TANK SEPARATOR OPERATOR.TNES (ml) Colloids volume administered ( ml) Blood Product volume administered (ml) Total IV fluid infused 400 09/06/24 13:44 BRINE TANK SEPARATOR OPERATOR.TNES Anesthesia Postop Eval I: Summary Notes Anesthesia Complication No 09/06/24 13:44 BRINE TANK SEPARATOR OPERATOR.TNES Anesthesia Complication Comment: Post-operative progress note Anesthesia: Postop Eval II Evaluation Mental status: Awake Pain Level: 1 nausea: No Vomiting: No 09/06/24 1645 Date Arlet Mcdonald CRNA Cosigner Signature: Date CC: Signed Normal [facility] Magnesiumon 09-06-2024 Magnesium [Mass/Vol] 1.9 mg/dL Normal 1.5-2.2 [facility] Comment on above: Performed By: #### L 501.9520, L100.0100, L501.2300, L500.4050, L501.5200 #### [facility] [address] [place], [place], [address] Magnesium measurement (mass/ volume)Ordered By: Jeni Ann on 09-06-2024 Magnesium (Unsp spec) [Mass/Vol] 1.9 mg/dL 1.5-2.[address] [facility] Monocyte percentageOrdered B y: Jeni Ann on 09-06-2024 Monocytes/100 WBC (Bld) 5.8 % 0-10 [facility] Neutrophil percentageOrdered By: Jeni Ann on 09-06-2024 Neutrophils/100 WBC (Bld) 49.8 % 47-[address] [facility] Nucleated red blood cell per centageOrdered By: Jeni Ann on 09-06-2024 Nucleated RBC/100 WBC (Bld) [Ratio] 0 % 0-[address] [facility] Phosphoruson 09-06-2024 Phosphate [Mass/Vol] 3.4 mg/dL Normal 2.7-4.5 [facility] Comment on above: Performed By: #### L 501.9520, L100.0100, L501.2300, L500.4050, L501.5200 #### [facility] [address] [place], [address] Serum globulin measurementOr dered By: Jeni Ann on 09-06-2024 Globulin (S) [Mass/Vol] 2.6 g/dL 2.2-4.2 [facility] Serum or plasma alanine barrios otransferase (ALT) measurementOrdered By: Jeni Ann on 09-06-2024 ALT [Catalytic activity/Vol] U/L <[address] [facility] Serum or plasma albumin kamilah urement (mass/volume)Ordered By: Jeni Ann on 09-06-2024 Albumin [Mass/Vol] 3.5 g/dL 3.4-4.8 [facility] Serum or plasma albumin/glob ulin mass ratioOrdered By: Jeni Ann on 09-06-2024 Albumin/Globulin [Mass ratio] 1.4 {ratio} 0.9-2.[address] [facility] Serum or plasma alkaline sandrita sphatase measurementOrdered By: Jeni Ann on 09-06-2024 ALP [Catalytic activity/Vol] 80 U/L 35-[address] [facility] Surgery Specimen Level Veronika 09-06-2024 Surgery Specimen Level IV Patient Age/Sex Location Account Attending Physician TONYA FLETCHER 64/F MS3 [id number] Dr. Jeni Ann, Specimen: [id number] Received: 09/07/24 Status: LOIDA Maynard Num: [id number] Spec Type: EGD BIOPSY Subm Dr: Stalin [...] submitted in one cassette. Juan David 09/07/2024 CPT:82304 Patient Age/Sex Location Account Attending Physician TONYA FLETCHER 64/F MS3 [id number] Dr. Jeni Ann, DO Signed (signature on file) Dr. Jennifer Oshea MD 09/17/24 [address] [facility] Comment on above: Performed By: #### L 501.9520, L100.0100, L501.2300, L500.4050, L501.5200 #### [facility] [address] [facility] [place], [place], [id number] TSH DL <= 0.005 mIU/L QnOrde red By: Jeni Ann on 09-06-2024 TSH Qn 2.270 uIU/mL 0.300-4.[address] [facility] Thyroid Stim Hormone (TSH)on 09-06-2024 TSH 2.270 uIU/mL Normal 0.300-4.[address] [facility] Comment on above: Performed By: #### L 501.9520, L100.0100, L501.2300, L500.4050, L501.5200 #### [facility] [address] [place], [address] Total proteinOrdered By: Cassandra santa Seth on 09-06-2024 Protein [Mass/Vol] 6.1 g/dL 5.9-8.4 [facility] Absolute lymphocyte countOrd ered By: Dominguez Bolton on 09-05-2024 Lymphocytes Auto (Unsp spec) [#/Vol] 3.45 10*3/uL 0.83-4.[address] [facility] Absolute neutrophil countOrd ered By: Dominguez Bolton on 09-05-2024 Neutrophils (Bld) [#/Vol] 7.5 10*3/uL 2.0-7.[address] [facility] Activated partial thrombopla stin time (aPTT) in platelet poor plasma by coagulation aOrdered By: Dominguez Bolton on 09-05-2024 aPTT Coag (PPP) [Time] 27.9 s 24.1-36.2 [facility] Anion gap in Serum or Plasma Ordered By: Dominguez Bolton on 09-05-2024 Anion gap [Moles/Vol] 12 mmol/L 5-15 [facility] Automated lymphocyte count a s percentage of total leukocytesOrdered By: Dominguez Bolton on 09-05-2024 Lymphocytes/100 WBC Auto (Unsp spec) 28.4 % 19-[address] [facility] BUN/creatinine ratioOrdered By: Dominguez Bolton on 09-05-2024 Urea nitrogen/Creatinine [Mass ratio] 22.1 mg/mg High 10-[address] [facility] Basophil percentageOrdered B y: Dominguez Bolton on 09-05-2024 Basophils/100 WBC (Bld) 0.8 % 0-1 [facility] Bilirubin, totalOrdered By: Dominguez Bolton on 09-05-2024 Bilirubin [Mass/Vol] 0.39 mg/dL 0.00-1.30 [facility] CBC W/Diff, Automatedon 08-09 Absolute Lymph 3.45 X10 3/uL Normal 0.83-4.[address] [facility] Comment on above: Performed By: #### L 300.3900, L300.4310, L500.4050, BTS, L100.0100 #### [facility] [address] [place], [place], [id number] Absolute Neut 7.5 X10 3/uL Normal 2.0-7.[address] [facility] Comment on above: Performed By: #### L 300.3900, L300.4310, L500.4050, BTS, L100.0100 #### [facility] [address] [place], [address] Basophils/100 WBC (Bld) 0.8 % Normal 0-1 [facility] Comment on above: Performed By: #### L 300.3900, L300.4310, L500.4050, BTS, L100.0100 #### [facility] [address] [place], [address] Eosinophils/100 WBC (Bld) 2.5 % Normal 0-[address] [facility] Comment on above: Performed By: #### L 300.3900, L300.4310, L500.4050, BTS, L100.0100 #### [facility] [address] [place], [address] Erythrocyte distribution width (RBC) [Ratio] 13.5 % Normal 11.6-14.[address] [facility] Comment on above: Performed By: #### L 300.3900, L300.4310, L500.4050, BTS, L100.0100 #### [facility] [address] [place], [address] Hematocrit (Bld) [Volume fraction] 41.2 % Normal 37-[address] [facility] Comment on above: Performed By: #### L 300.3900, L300.4310, L500.4050, BTS, L100.0100 #### [facility] [address] [place], [address] Hemoglobin (Bld) [Mass/Vol] 13.9 g/dL Normal 12.0-15.[address] [facility] Comment on above: Performed By: #### L 300.3900, L300.4310, L500.4050, BTS, L100.0100 #### [facility] [address] [place], [address] IG% 0.200 Normal 0.0-0.[address] [facility] Comment on above: Result Comment: IG% - Immature Granulocytes (promyelocytes, myelocytes and metamyelocytes) > 1% indicates that a LEFT SHIFT is Present. Performed By: #### L 300.3900, L300.4310, L500.4050, BTS, L100.0100 #### [facility] [address] [place], [address] Lymphocytes/100 WBC (Bld) 28.4 % Normal 19-[address] [facility] Comment on above: Performed By: #### L 300.3900, L300.4310, L500.4050, BTS, L100.0100 #### [facility] [address] [place], [address] MCH (RBC) [Entitic mass] 32.0 pg Normal 27.0-32.[address] [facility] Comment on above: Performed By: #### L 300.3900, L300.4310, L500.4050, BTS, L100.0100 #### [facility] [address] [place], [address] MCHC (RBC) [Mass/Vol] 33.7 g/dL Normal 32-36 [facility] Comment on above: Performed By: #### L 300.3900, L300.4310, L500.4050, BTS, L100.0100 #### [facility] [address] [place], [address] MCV (RBC) [Entitic vol] 94.9 fL Normal 81-99 [facility] Comment on above: Performed By: #### L 300.3900, L300.4310, L500.4050, BTS, L100.0100 #### [facility] [address] [place], [address] Monocytes/100 WBC (Bld) 6.0 % Normal 0-10 [facility] Comment on above: Performed By: #### L 300.3900, L300.4310, L500.4050, BTS, L100.0100 #### [facility] [address] [place], [address] Neutrophils/100 WBC (Bld) 62.1 % Normal 47-[address] [facility] Comment on above: Performed By: #### L 300.3900, L300.4310, L500.4050, BTS, L100.0100 #### [facility] [address] [place], [address] Nucleated RBC (Bld) [#/Vol] 0 10*3/uL Normal 0-[address] [facility] Comment on above: Performed By: #### L 300.3900, L300.4310, L500.4050, BTS, L100.0100 #### [facility] [address] [place], [address] Platelet mean volume (Bld) [Entitic vol] 11.2 fL Normal 6.2-12.[address] [facility] Comment on above: Performed By: #### L 300.3900, L300.4310, L500.4050, BTS, L100.0100 #### [facility] [address] [place], [address] Platelets (Bld) [#/Vol] 263 10*3/uL Normal 150-[address] [facility] Comment on above: Performed By: #### L 300.3900, L300.4310, L500.4050, BTS, L100.0100 #### [facility] [address] [place], [address] RBC (Bld) [#/Vol] 4.34 10*6/uL Normal 4.2-5.4 [facility] Comment on above: Performed By: #### L 300.3900, L300.4310, L500.4050, BTS, L100.0100 #### [facility] [address] [place], [address] RDW SD 47.7 fl High 35.1-43.[address] [facility] Comment on above: Performed By: #### L 300.3900, L300.4310, L500.4050, BTS, L100.0100 #### [facility] [address] [place], [address] WBC (Bld) [#/Vol] 12.1 10*3/uL High 4.4-11.0 [facility] Comment on above: Performed By: #### L 300.3900, L300.4310, L500.4050, BTS, L100.0100 #### [facility] [address] [place], [address] Carbon dioxide, total [Moles /volume] in Central venous bloodOrdered By: Dominguez Bolton on 09-05-2024 CO2 [Moles/Vol] 24.1 mmol/L 21.0-32.[address] [facility] Chloride assayOrdered By: Deyvi Bolton on 09-05-2024 Chloride [Moles/Vol] 104 mmol/L 98-108 [facility] Comprehensive Metabolic Prof ilon 09-05-2024 Albumin [Mass/Vol] 3.8 g/dL Normal 3.4-4.8 [facility] Comment on above: Performed By: #### L 300.3900, L300.4310, L500.4050, BTS, L100.0100 #### [facility] [address] [place], [address] Albumin/Globulin [Mass ratio] 1.2 {ratio} Normal 0.9-2.[address] [facility] Comment on above: Performed By: #### L 300.3900, L300.4310, L500.4050, BTS, L100.0100 #### [facility] [address] [place], [address] ALK PHOS 86 U/L Normal 35-[address] [facility] Comment on above: Performed By: #### L 300.3900, L300.4310, L500.4050, BTS, L100.0100 #### [facility] [address] [place], [address] ALT [Catalytic activity/Vol] 5 U/L Normal <=[address] [facility] Comment on above: Performed By: #### L 300.3900, L300.4310, L500.4050, BTS, L100.0100 #### [facility] [address] [place], [address] AST [Catalytic activity/Vol] 15 U/L Normal <=[address] [facility] Comment on above: Result Comment: Hemo lysis present, Results??could be affected. ?? Performed By: #### L 300.3900, L300.4310, L500.4050, BTS, L100.0100 #### [facility] [address] [place], [address] Bilirubin [Mass/Vol] 0.39 mg/dL Normal 0.00-1.30 [facility] Comment on above: Performed By: #### L 300.3900, L300.4310, L500.4050, BTS, L100.0100 #### [facility] [address] [place], [address] BUN/CRE 22.1 RATIO High 10-[address] [facility] Comment on above: Performed By: #### L 300.3900, L300.4310, L500.4050, BTS, L100.0100 #### [facility] [address] [place], [address] Calcium [Mass/Vol] 9.0 mg/dL Normal 7.6-11.0 [facility] Comment on above: Performed By: #### L 300.3900, L300.4310, L500.4050, BTS, L100.0100 #### [facility] [address] [place], [address] Chloride [Moles/Vol] 104 mmol/L Normal 98-108 [facility] Comment on above: Performed By: #### L 300.3900, L300.4310, L500.4050, BTS, L100.0100 #### [facility] [address] [place], [address] CO2 [Moles/Vol] 24.1 mmol/L Normal 21.0-32.[address] [facility] Comment on above: Performed By: #### L 300.3900, L300.4310, L500.4050, BTS, L100.0100 #### [facility] [address] [place], [address] Creatinine [Mass/Vol] 0.47 mg/dL Low 0.70-1.20 [facility] Comment on above: Performed By: #### L 300.3900, L300.4310, L500.4050, BTS, L100.0100 #### [facility] [address] [place], [address] GAP 12 Normal 5-[address] [facility] Comment on above: Performed By: #### L 300.3900, L300.4310, L500.4050, BTS, L100.0100 #### [facility] [address] [place], [address] GFR/1.73 sq M.predicted among non-blacks MDRD (S/P/Bld) [Vol rate/Area] 107 mL/min/{1.73_m2} Normal >[address] [facility] Comment on above: Result Comment: mL/m in/1.73m2 CKD-EPI Creatinine Equation (2020) Performed By: #### L 300.3900, L300.4310, L500.4050, BTS, L100.0100 #### [facility] [address] [place], [address] Globulin (S) [Mass/Vol] 3.1 g/dL Normal 2.2-4.2 [facility] Comment on above: Performed By: #### L 300.3900, L300.4310, L500.4050, BTS, L100.0100 #### [facility] [address] [place], [address] Glucose [Mass/Vol] 105 mg/dL High 70-99 [facility] Comment on above: Performed By: #### L 300.3900, L300.4310, L500.4050, BTS, L100.0100 #### [facility] [address] [place], [address] Potassium [Moles/Vol] 4.2 mmol/L Normal 3.3-5.1 [facility] Comment on above: Result Comment: Hemo lysis present, Results??could be affected. ?? Performed By: #### L 300.3900, L300.4310, L500.4050, BTS, L100.0100 #### [facility] [address] [place], [address] Sodium [Moles/Vol] 140 mmol/L Normal 133-145 [facility] Comment on above: Performed By: #### L 300.3900, L300.4310, L500.4050, BTS, L100.0100 #### [facility] [address] [place], [address] T PROT 6.9 g/dL Normal 5.9-8.[address] [facility] Comment on above: Performed By: #### L 300.3900, L300.4310, L500.4050, BTS, L100.0100 #### [facility] [address] [place], [address] Urea nitrogen [Mass/Vol] 10 mg/dL Normal 4-[address] [facility] Comment on above: Performed By: #### L 300.3900, L300.4310, L500.4050, BTS, L100.0100 #### [facility] [address] [place], [address] Emergency Department Summary on 09-05-2024 Emergency Department Summary [facility] Medical Records Department [address] [place] [address] Emergency Department Summary 09/05/24 MR#: [id number] Acct: [id number] Name: TONYA FLETCHER Rep #: [id number] : 1960 64 From: Dominguez Bolton MD [...] similar symptoms: No Recent Illness/Hospitalization : [facility] Medical History Diarrhea Nausea Intellectual developmental disorder, [...] 10 mg/30 mL enema (Fleet 5 mg [place] DAILY PRN constipation 0 07/31/23 Unknown History [...] of cataract (more content not included)... Normal [facility] Eosinophil percentageOrdered By: Dominguez Bolton on 09-05-2024 Eosinophils/100 WBC (Bld) 2.5 % 0-[address] [facility] Erythrocyte distribution wid th ratioOrdered By: Dominguez Bolton on 09-05-2024 Erythrocyte distribution width (RBC) [Ratio] 13.5 % 11.6-14.[address] [facility] Erythrocyte distribution wid th standard deviationOrdered By: Dmoinguez Bolton on 09-05-2024 Erythrocyte distribution width (RBC) [Ratio] 47.7 fl High 35.1-43.[address] [facility] Glomerular filtration rate ( GFR) estimation/1.73 sq m using serum, plasma, or whole bOrdered By: Dominguez Bolton on 09-05-2024 GFR/1.73 sq M.predicted among non-blacks MDRD (S/P/Bld) [Vol rate/Area] 107 mL/min/{1.73_m2} >[address] [facility] Comment on above: mL/min/1.73m2 CKD-EP I Creatinine Equation (2020) H AND P Exam - Hospital[place] 09-05-2024 H&P Exam - Hospitalist [facility] Medical Records Department [address] [place] [address] H P Exam - Hospitalist 09/05/24 1303 MR#: [id number] Acct: [id number] Name: TONYA FLETCHER Rep #: [id number] : 1960 64 From: Jeni Ann DO PCP: Dr. Michelle Marroquin MD Status:ADM IN Location: [facility] FH205-3 HPI - General General Date of Admission: 09/05/24 Date of Service: 09/05/24 Chief Complaint: Hematemesis HPI Narrative TONYA FLETCHER, is a 64 F who has a history of MRDD and is nonverbal at baseline and presented to the emergency department at [facility] on 09/05/2024 with caregivers. Evidently, about [...] dose of Protonix in the emergency department. [facility] Medical History Diarrhea Nausea Intellectual developmental disorder, [...] 10 mg/30 mL enema (Fleet 5 mg [place] DAILY PRN constipation 0 07/31/23 Unknown History [...] caps Unknown (more content not included)... Normal [facility] HH, Hemoglobin AND Hematocri ton 09-05-2024 Hematocrit (Bld) [Volume fraction] 39.8 % Normal 37-[address] [facility] Comment on above: Performed By: #### L 501.9520, L100.0100, L501.2300, L500.4050, L501.5200 #### [facility] Laboratory [facility] [place], [address] Hemoglobin (Bld) [Mass/Vol] 13.4 g/dL Normal 12.0-15.[address] [facility] Comment on above: Performed By: #### L 501.9520, L100.0100, L501.2300, L500.4050, L501.5200 #### [facility] Laboratory [address] [place], [address] Hematocrit (Bld) [Volume fraction] 38.9 % Normal [address] [place] [address] Comment on above: Performed By: #### L 501.9520, L100.0100, L501.2300, L500.4050, L501.5200 #### [facility] Laboratory [address] [place], [address] Hemoglobin (Bld) [Mass/Vol] 13.1 g/dL Normal 12.0-15.[address] [facility] Comment on above: Performed By: #### L 501.9520, L100.0100, L501.2300, L500.4050, L501.5200 #### [facility] Laboratory [address] [place], [address] Hematocrit (Bld) [Volume fraction] 36.8 % Low [address] [place] [address] Comment on above: Performed By: #### L 501.9520, L100.0100, L501.2300, L500.4050, L501.5200 #### [facility] Laboratory [address] [place], [address] Hemoglobin (Bld) [Mass/Vol] 12.6 g/dL Normal 12.0-15.[address] [facility] Comment on above: Performed By: #### L 501.9520, L100.0100, L501.2300, L500.4050, L501.5200 #### [facility] Laboratory [address] [place], [address] Hematocrit Auto (Bld) [Volum e fraction]Ordered By: Dominguez Bolton on 09-05-2024 Hematocrit (Bld) [Volume fraction] 36.8 % Low [address] [place] [address] Hemoglobin measurementOrdere d By: Dominguez Bolton on 09-05-2024 Hemoglobin (Bld) [Mass/Vol] 12.6 g/dL 12.0-15.[address] [facility] Immature granulocytes/100 WB C Auto (Bld)Ordered By: Dominguez Bolton on 09-05-2024 Immature granulocytes/100 WBC (Bld) 0.200 % 0.0-0.[address] [facility] Comment on above: IG% - Immature Granu locytes (promyelocytes, myelocytes and metamyelocytes) > 1% indicates that a LEFT SHIFT is Present. International normalized rat io (INR) calculationOrdered By: Dominguez Bolton on 09-05-2024 INR Coag (Bld) [Relative time] 1.0 {INR} [facility] Laboratory - Chemistry and C hemistry - challengeOrdered By: Dominguez Bolton on 09-05-2024 AST [Catalytic activity/Vol] 15 U/L <[address] [facility] Comment on above: Hemolysis present, R esults could be affected. MCV (mean corpuscular volume ) determinationOrdered By: Dominguez Bolton on 09-05-2024 MCV (RBC) [Entitic vol] 94.9 fL 81-99 [facility] Mean corpuscular hemoglobin (MCH) determinationOrdered By: Dominguez Bolton on 09-05-2024 MCH (RBC) [Entitic mass] 32.0 pg 27.0-32.[address] [facility] Mean corpuscular hemoglobin concentration (MCHC) determinationOrdered By: Dominguez Bolton on 09-05-2024 MCHC (RBC) [Mass/Vol] 33.7 g/dL 32-36 [facility] Mean platelet volume determi nationOrdered By: Dominguez Bolton on 09-05-2024 Platelet mean volume (Bld) [Entitic vol] 11.2 fL 6.2-12.[address] [facility] Monocyte percentageOrdered B y: Dominguez Bolton on 09-05-2024 Monocytes/100 WBC (Bld) 6.0 % 0-10 [facility] Neutrophil percentageOrdered By: Dominguez Bolton on 09-05-2024 Neutrophils/100 WBC (Bld) 62.1 % 47-[address] [facility] Nucleated red blood cell per centageOrdered By: Dominguez Bolton on 09-05-2024 Nucleated RBC/100 WBC (Bld) [Ratio] 0 % 0-[address] [facility] Partial Thromboplast Timeon 09-05-2024 aPTT Coag (Bld) [Time] 27.9 s Normal 24.1-36.2 [facility] Comment on above: Performed By: #### L 501.9520, L100.0100, L501.2300, L500.4050, L501.5200 #### [facility] Laboratory [address] [place], [address] Platelet countOrdered By: Deyvi Bolton on 09-05-2024 Platelets (Bld) [#/Vol] 263 10*3/uL 150-[address] [facility] Potassium measurement (mass/ volume)Ordered By: Dominguez Bolton on 09-05-2024 Potassium (Unsp spec) [Mass/Vol] 4.2 mmol/L 3.3-5.[address] [facility] Comment on above: Hemolysis present, R esults could be affected. Prothrombin Time w/INRon INR Coag (PPP) [Relative time] 1.0 {INR} Normal [facility] Comment on above: Performed By: #### L 501.9520, L100.0100, L501.2300, L500.4050, L501.5200 #### [facility] Laboratory [address] [place], [address] PT Coag (PPP) [Time] 13.6 s Normal 11.7-14.9 [facility] Comment on above: Performed By: #### L 501.9520, L100.0100, L501.2300, L500.4050, L501.5200 #### [facility] [address] [place], [address] Prothrombin timeOrdered By: Dominguez Bolton on 09-05-2024 PT Coag (PPP) [Time] 13.6 s 11.7-14.9 [facility] RBC Auto (Bld) [#/Vol]Ordere d By: Dominguez Bolton on 09-05-2024 RBC (Bld) [#/Vol] 4.34 10*6/uL 4.2-5.4 [facility] Serum creatinine measurement (mass/volume)Ordered By: Dominguez Bolton on 09-05-2024 Creatinine [Mass/Vol] 0.47 mg/dL Low 0.70-1.20 [facility] Serum globulin measurementOr dered By: Dominguez Bolton on 09-05-2024 Globulin (S) [Mass/Vol] 3.1 g/dL 2.2-4.2 [facility] Serum glucose measurement (m ass/volume)Ordered By: Dominguez Bolton on 09-05-2024 Glucose [Mass/Vol] 105 mg/dL High 70-99 [facility] Serum or plasma alanine barrios otransferase (ALT) measurementOrdered By: Dominguez Bolton on 09-05-2024 ALT [Catalytic activity/Vol] 5 U/L <[address] [facility] Serum or plasma albumin kamilah urement (mass/volume)Ordered By: Dominguez Bolton on 09-05-2024 Albumin [Mass/Vol] 3.8 g/dL 3.4-4.8 [facility] Serum or plasma albumin/glob ulin mass ratioOrdered By: Dominguez Bolton on 09-05-2024 Albumin/Globulin [Mass ratio] 1.2 {ratio} 0.9-2.[address] [facility] Serum or plasma alkaline sandrita sphatase measurementOrdered By: Dominguez Bolton on 09-05-2024 ALP [Catalytic activity/Vol] 86 U/L 35-[address] [facility] Serum or plasma calcium kamilah urement (mass/volume)Ordered By: Dominguez Bolton on 09-05-2024 Calcium [Mass/Vol] 9.0 mg/dL 7.6-11.0 [facility] Serum or plasma urea nitroge n measurement (mass/volume)Ordered By: Dominguez Bolton on 09-05-2024 Urea nitrogen [Mass/Vol] 10 mg/dL 4-[address] [facility] Sodium levelOrdered By: Dominguez Bolton on 09-05-2024 Sodium [Moles/Vol] 140 mmol/L 133-145 [facility] Total proteinOrdered By: Tad Bolton on 09-05-2024 Protein [Mass/Vol] 6.9 g/dL 5.9-8.4 [facility] Type AND Screenon 09-05-2024 Ab SCREEN GEL PENDING Normal [facility] Comment on above: Order Comment: LANDON Lamas PREVIOUS SPECIMEN REJECTED DUE TOQNS. 09/05/2438 [facility] [employer] Performed By: #### L 501.9520, L100.0100, L501.2300, L500.4050, L501.5200 #### [facility] Laboratory [address] [place], [address] A1 CELL Not performed Normal [facility] Comment on above: Order Comment: HGI Result Comment: This specimen has been REJECTED due to Laboratory criteria: Quanity Not Sufficient. ED has been notified of need of recollection. [facility] Performed By: #### L 300.3900, L300.4310, L500.4050, BTS, L100.0100 #### [facility] [address] [place], [place], [id number] Ab SCREEN GEL Not performed Normal [facility] Comment on above: Order Comment: HGI Result Comment: This specimen has been REJECTED due to Laboratory criteria: Quanity Not Sufficient. ED has been notified of need of recollection. 09/05/[address] [facility] Performed By: #### L 300.3900, L300.4310, L500.4050, BTS, L100.0100 #### [facility] [address] [place], [address] ABO and Rh group Nom (Bld) Test Not Performed Normal [facility] Comment on above: Order Comment: HGI Result Comment: This specimen has been REJECTED due to Laboratory criteria: Quanity Not Sufficient. ED has been notified of need of recollection. 09/05/24[facility] Performed By: #### L 300.3900, L300.4310, L500.4050, BTS, L100.0100 #### [facility] [address] [place], [address] ANTI A Not performed Normal [facility] Comment on above: Order Comment: HGI Result Comment: This specimen has been REJECTED due to Laboratory criteria: Quanity Not Sufficient. ED has been notified of need of recollection. 09/05/2437 [facility] Performed By: #### L 300.3900, L300.4310, L500.4050, BTS, L100.0100 #### [facility] [address] [place], [address] ANTI B Not performed Normal [facility] Comment on above: Order Comment: HGI Result Comment: This specimen has been REJECTED due to Laboratory criteria: Quanity Not Sufficient. ED has been notified of need of recollection. 09/05/2437 [facility] Performed By: #### L 300.3900, L300.4310, L500.4050, BTS, L100.0100 #### [facility] [address] [place], [address] ANTI D Not performed Normal [facility] Comment on above: Order Comment: HGI Result Comment: This specimen has been REJECTED due to Laboratory criteria: Quanity Not Sufficient. ED has been notified of need of recollection. 09/05/24 [facility] Performed By: #### L 300.3900, L300.4310, L500.4050, BTS, L100.0100 #### [facility] [address] [place], [address] B CELLS Not performed Normal [facility] Comment on above: Order Comment: HGI Result Comment: This specimen has been REJECTED due to Laboratory criteria: Quanity Not Sufficient. ED has been notified of need of recollection. 09/05/2437 [facility] Performed By: #### L 300.3900, L300.4310, L500.4050, BTS, L100.0100 #### [facility] [address] 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 Normal [facility] Visit Reporton 0 08-10-2024 Urgent Care Visit Report [facility] [address], [address] [place] [address] OFFICE VISIT Date of Service: 08/10/24 MR#: [id number] Acct: [id number] Name: TONYA FLETCHER Rep #: [id number] : 1960 Provider: XUAN Casey Age/Sex: 64/F Location: [facility] [place] Status: Signed Intake Vital [...] 10 mg/30 mL enema (Fleet 5 mg NH DAILY PRN 07/31/2308/10 History Bisacodyl) bismuth subsalicylate [...] it was just a normal BM today. [facility] Medical History (Updated 08/10/24 @ 15:41 by [...] THC LAST (more content not included)... Normal [facility] Calculated very low density lipoprotein (VLDL) cholesterol measurementOrdered By: Michelle Marroquin on 06-11-2024 Calculated very low density lipoprotein (VLDL) cholesterol measurement 15 mg/dL 5-[address] [facility] VLDL Cholesterol 15 mg/dL -[address] [facility] Internal Medicine Office Vis iton 06-11-2024 Internal Medicine Office Visit [facility] [place] [address] [place] [address] OFFICE VISIT Date of Service: 06/11/24 MR#: [id number] Acct: [id number] Name: TONYA FLETCHER Rep #: [id number] : 1960 Provider: Dr. Michelle brambila MD Age/Sex: 63/F Location: [facility] [place] Status: Signed Intake Vital [...] 10 mg/30 mL enema (Fleet 5 mg NH DAILY PRN 07/31/2306/11 History Bisacodyl) bismuth subsalicylate [...] #21 caps 05/18/24 Rx Nurse's Note: pt's INVENTORY CHECKER accompanied her to appt today. she reports no changes to medications, medical/surgical history or allergies. [facility] Medical History (Updated 06/11/24 @ 17:41 by [...] F who (more content not included)... Normal [facility] LDL calc ser/plasOrdered By: Michelle Marroquin on 06-11-2024 Cholesterol in LDL [Mass/Vol] 123 mg/dL [facility] Comment on above: Hwdhfaphmt=066-582 m g/dL & Higher Zidb=436 mg/dL or greater LDL Cholesterol, Calculated 123 mg/dL [facility] Comment on above: Aeduvpyszh=387-443 m g/dL & Higher Cplt=388 mg/dL or greater Lipid Profileon 06-11-2024 CHOL:HDL 3.[address] [facility] Comment on above: Performed By: #### L 501.9520, L100.0100, L501.2300, L500.4050, L501.5200 #### [facility] Laboratory [address] [place], [place], [id number] (171) Cholesterol [Mass/Vol] 204 mg/dL High <=200 [facility] Comment on above: Result Comment: Chol esterol level, Desirable <200 mg/dL Borderline high cholesterol 200-239 mg/dL High cholesterol >=240 mg/dL Recommendations of the NCEP Adult Treatment Panel for the following risk-cutoff thresholds for the [place] population. Performed By: #### L 501.9520, L100.0100, L501.2300, L500.4050, L501.5200 #### [facility] [address] [place], [address] Cholesterol in HDL [Mass/Vol] 66 mg/dL Normal [facility] Comment on above: Result Comment: [place] onal Cholesterol Education Program (NCEP) guidelines: <40 mg/dL: Low HDL-cholesterol (major risk factor for CHD) >= 60 mg/dL: High HDL-cholesterol (negative risk factor for CHD) HDL-cholesterol is affected by a number of factors, e.g. smoking, exercise, hormones, sex and age. Performed By: #### L 501.9520, L100.0100, L501.2300, L500.4050, L501.5200 #### [facility] [address] [place], [address] Cholesterol in LDL [Mass/Vol] 123 mg/dL Normal [facility] Comment on above: Result Comment: Bord hpnrxh=496-852 mg/dL Higher Qfvv=998 mg/dL or greater Performed By: #### L 501.9520, L100.0100, L501.2300, L500.4050, L501.5200 #### [facility] [address] [place], [address] Cholesterol in VLDL [Mass/Vol] 15 mg/dL Normal 5-[address] [facility] Comment on above: Performed By: #### L 501.9520, L100.0100, L501.2300, L500.4050, L501.5200 #### [facility] [address] [place], [address] Triglyceride [Mass/Vol] 75 mg/dL Normal [facility] Comment on above: Result Comment: The drugs N-Acetylcysteine and Metamizole may falsely depress this assay. Normal range: <150 mg/dL Borderline High: 150-199 mg/dL High: 200-499 mg/dL Very High: >500 mg/dL Performed By: #### L 501.9520, L100.0100, L501.2300, L500.4050, L501.5200 #### [facility] [address] [place], [place], [id number] Screening total cholesterol/ high density lipoprotein (HDL) cholesterol ratioOrdered By: Michelle Marroquin on 06-11-2024 Cholesterol.total/Tanvi sterol in HDL [Mass ratio] 3.11 {ratio} [facility] Serum or plasma cholesterol in HDL measurement (mass/volume)Ordered By: Michelle Marroquin on 06-11-2024 Cholesterol in HDL [Mass/Vol] 66 mg/dL >[address] [facility] Comment on above: National Cholesterol Education Program (NCEP) guidelines:<40 mg/dL: Low HDL-cholesterol (major risk factor for CHD)>= 60 mg/dL: High HDL-cholesterol (negative risk factor for CHD)HDL-cholesterol is affected by a number of factors, e.g. smoking, exercise, hormones, sex and age. Serum or plasma cholesterol measurement (mass/volume)Ordered By: Michelle Marroquin on 06-11-2024 Cholesterol [Mass/Vol] 204 mg/dL High <201 [facility] Comment on above: Cholesterol level, D esirable <200 mg/dLBorderline high cholesterol 200-239 mg/dLHigh cholesterol >=240 mg/dLRecommendations of the NCEP Adult Treatment Panel for the following risk-cutoff thresholds for the [place] population. Triglycerides measurementOrd ered By: Michelle Marroquin on 06-11-2024 Triglyceride [Mass/Vol] 75 mg/dL <199 [facility] Comment on above: The drugs N-Acetylcy steine and Metamizole may falsely depress this assay. Normal range: <150 mg/dLBorderline High: 150-199 mg/dLHigh: 200-499 mg/dLVery High: >500 mg/dL Vitamin D, 25-hydroxyOrdered By: Michelle Marroquin on 06-11-2024 Vitamin D 25-Hydroxy 35.0 ng/mL 30-100 [facility] Comment on above: Vitamin D StatusDefi ciency: <20 ng/mL (50nmol/L)Insufficiency: 20-30 ng/mL (50-75 nmol/L)Sufficiency: 30-100 ng/mL (75-250 nmol/L)Toxicity: >100 ng/mL (>250 nmol/L) Vitamin D,25 Hydroxyon 06-11 Vitamin D 25-OH 35.0 ng/mL Normal 30-[address] [facility] Comment on above: Result Comment: Ct min D Status Deficiency: <20 ng/mL (50nmol/L) Insufficiency: 20-30 ng/mL (50-75 nmol/L) Sufficiency: 30-100 ng/mL (75-250 nmol/L) Toxicity: >100 ng/mL (>250 nmol/L) Performed By: #### L 501.9520, L100.0100, L501.2300, L500.4050, L501.5200 #### [facility] [address] [place], [address] Urgent Care Visit Reporton 0 05-18-2024 Urgent Care Visit Report [facility] [address] [place] [address] OFFICE VISIT Date of Service: 05/18/24 MR#: [id number] Acct: [id number] Name: TONYA FLETCHER Rep #: [id number] : 1960 Provider: XUAN Casey Age/Sex: 63/F Location: [facility] [place] Status: Signed Intake Vital [...] Augmentin) Adverse Reaction (Verified 04/21/24 13:52) Unknown [facility] Medical History (Updated 04/21/24 @ 14:30 by [...] does express localized tenderness to palpation. No fcez-pyq-imcvgtc medications taken to assist. No other associated symptoms and no other alleviating/aggravating factors. ROS Const Constitutional: No other (As above) Exam Const General: cooperative, healthy appearing and no acute distress Orientation: alert and awake HENLA Head: normal to inspection Ears: hearing grossly [...] Cosigner Signature: Date (if applicable) CC: Normal [facility] Absolute lymphocyte countOrd ered By: Michelle Marroquin on 04-21-2024 Lymphocytes Auto (Unsp spec) [#/Vol] 2.12 10*3/uL 0.83-4.[address] [facility] Absolute neutrophil countOrd ered By: Michelle Marroquin on 04-21-2024 Neutrophils (Bld) [#/Vol] 2.9 10*3/uL 2.0-7.[address] [facility] Albumin to globulin ratioOrd ered By: Albertograwnsinai Marroquin on 04-21-2024 Albumin/Globulin [Mass ratio] 0.8 {ratio} Low 0.9-2.[address] [facility] Automated lymphocyte count a s percentage of total leukocytesOrdered By: Michelle Daronselvin on 04-21-2024 Lymphocytes/100 WBC Auto (Unsp spec) 33.8 % 19-[address] [facility] Basophil percentageOrdered B y: Michelle Marroquin on 04-21-2024 Basophils/100 WBC (Bld) 1.0 % 0-1 [facility] Bilirubin, totalOrdered By: Michelle Marroquin on 04-21-2024 Bilirubin [Mass/Vol] 0.30 mg/dL 0.20-1.00 [facility] Comment on above: For patients on eltr ombopag therapy, use of Dimension Mobile TBIL is not recommended. Blood urea nitrogen (BUN)/cr eatinine ratioOrdered By: Leigharuddygrahamsinai Neririchielizbeth on 04-21-2024 Urea nitrogen/Creatinine [Mass ratio] 9.6 mg/mg Low 10-[address] [facility] CBC W/Diff, Automatedon 04-10 Absolute Lymph 2.12 X10 3/uL Normal 0.83-4.[address] [facility] Comment on above: Performed By: #### L 501.9520, L100.0100, L501.2300, L500.4050, L501.5200 #### [facility] [address] [place], [address] Absolute Neut 2.9 X10 3/uL Normal 2.0-7.[address] [facility] Comment on above: Performed By: #### L 501.9520, L100.0100, L501.2300, L500.4050, L501.5200 #### [facility] [address] [place], [address] Basophils/100 WBC (Bld) 1.0 % Normal 0-1 [facility] Comment on above: Performed By: #### L 501.9520, L100.0100, L501.2300, L500.4050, L501.5200 #### [facility] [address] [place], [address] Eosinophils/100 WBC (Bld) 7.5 % High 0-[address] [facility] Comment on above: Performed By: #### L 501.9520, L100.0100, L501.2300, L500.4050, L501.5200 #### [facility] [address] [place], [address] Erythrocyte distribution width (RBC) [Ratio] 14.7 % High 11.6-14.[address] [facility] Comment on above: Performed By: #### L 501.9520, L100.0100, L501.2300, L500.4050, L501.5200 #### [facility] [address] [place], [address] Hematocrit (Bld) [Volume fraction] 42.2 % Normal 37-[address] [facility] Comment on above: Performed By: #### L 501.9520, L100.0100, L501.2300, L500.4050, L501.5200 #### [facility] [address] [place], [address] Hemoglobin (Bld) [Mass/Vol] 13.6 g/dL Normal 12.0-15.[address] [facility] Comment on above: Performed By: #### L 501.9520, L100.0100, L501.2300, L500.4050, L501.5200 #### [facility] [address] [place], [address] IG% 0.300 Normal 0.0-0.[address] [facility] Comment on above: Result Comment: IG% - Immature Granulocytes (promyelocytes, myelocytes and metamyelocytes) > 1% indicates that a LEFT SHIFT is Present. Performed By: #### L 501.9520, L100.0100, L501.2300, L500.4050, L501.5200 #### [facility] [address] [place], [place], [id number] Lymphocytes/100 WBC (Bld) 33.8 % Normal 19-[address] [facility] Comment on above: Performed By: #### L 501.9520, L100.0100, L501.2300, L500.4050, L501.5200 #### [facility] [address] [place], [address] MCH (RBC) [Entitic mass] 31.6 pg Normal 27.0-32.[address] [facility] Comment on above: Performed By: #### L 501.9520, L100.0100, L501.2300, L500.4050, L501.5200 #### [facility] [address] [place], [address] MCHC (RBC) [Mass/Vol] 32.2 g/dL Normal 32-36 [facility] Comment on above: Performed By: #### L 501.9520, L100.0100, L501.2300, L500.4050, L501.5200 #### [facility] [address] [place], [address] MCV (RBC) [Entitic vol] 98.1 fL Normal 81-99 [facility] Comment on above: Performed By: #### L 501.9520, L100.0100, L501.2300, L500.4050, L501.5200 #### [facility] [address] [place], [address] Monocytes/100 WBC (Bld) 11.6 % High 0-10 [facility] Comment on above: Performed By: #### L 501.9520, L100.0100, L501.2300, L500.4050, L501.5200 #### [facility] [address] [place], [address] Neutrophils/100 WBC (Bld) 45.8 % Low 47-[address] [facility] Comment on above: Performed By: #### L 501.9520, L100.0100, L501.2300, L500.4050, L501.5200 #### [facility] [address] [place], [address] Nucleated RBC (Bld) [#/Vol] 0 10*3/uL Normal 0-[address] [facility] Comment on above: Performed By: #### L 501.9520, L100.0100, L501.2300, L500.4050, L501.5200 #### [facility] [address] [place], [address] Platelet mean volume (Bld) [Entitic vol] 11.8 fL Normal 6.2-12.[address] [facility] Comment on above: Performed By: #### L 501.9520, L100.0100, L501.2300, L500.4050, L501.5200 #### [facility] [address] [place], [address] Platelets (Bld) [#/Vol] 280 10*3/uL Normal 150-[address] [facility] Comment on above: Performed By: #### L 501.9520, L100.0100, L501.2300, L500.4050, L501.5200 #### [facility] [address] [place], [address] RBC (Bld) [#/Vol] 4.30 10*6/uL Normal 4.2-5.4 [facility] Comment on above: Performed By: #### L 501.9520, L100.0100, L501.2300, L500.4050, L501.5200 #### [facility] [address] [place], [address] RDW SD 53.1 fl High 35.1-43.[address] [facility] Comment on above: Performed By: #### L 501.9520, L100.0100, L501.2300, L500.4050, L501.5200 #### [facility] [address] [place], [address] WBC (Bld) [#/Vol] 6.3 10*3/uL Normal 4.4-11.0 [facility] Comment on above: Performed By: #### L 501.9520, L100.0100, L501.2300, L500.4050, L501.5200 #### [facility] [address] [place], [address] Absolute Neut Normal 2.0-7.[address] [facility] Comment on above: Result Comment: DUPL ICATE' Performed By: #### L 501.9520, L100.0100, L501.2300, L500.4050, L501.5200 #### [facility] [address] [place], [address] HCT Normal 37-[address] [facility] Comment on above: Result Comment: DUPL ICATE' Performed By: #### L 501.9520, L100.0100, L501.2300, L500.4050, L501.5200 #### [facility] [address] [place], [address] HGB Normal 12.0-15.[address] [facility] Comment on above: Result Comment: DUPL ICATE' Performed By: #### L 501.9520, L100.0100, L501.2300, L500.4050, L501.5200 #### [facility] [address] [place], [address] MCH Normal 27.0-32.[address] [facility] Comment on above: Result Comment: DUPL ICATE' Performed By: #### L 501.9520, L100.0100, L501.2300, L500.4050, L501.5200 #### [facility] [address] [place], [address] MCHC Normal 32-[address] [facility] Comment on above: Result Comment: DUPL ICATE' Performed By: #### L 501.9520, L100.0100, L501.2300, L500.4050, L501.5200 #### [facility] [address] [place], [address] MCV Normal 81-[address] [facility] Comment on above: Result Comment: DUPL ICATE' Performed By: #### L 501.9520, L100.0100, L501.2300, L500.4050, L501.5200 #### [facility] [address] [place], [address] NEUT% Normal 47-[address] [facility] Comment on above: Result Comment: DUPL ICATE' Performed By: #### L 501.9520, L100.0100, L501.2300, L500.4050, L501.5200 #### [facility] [address] [place], [address] PLT Normal 150-[address] [facility] Comment on above: Result Comment: DUPL ICATE' Performed By: #### L 501.9520, L100.0100, L501.2300, L500.4050, L501.5200 #### [facility] [address] [place], [address] RBC Normal 4.2-5.[address] [facility] Comment on above: Result Comment: DUPL ICATE' Performed By: #### L 501.9520, L100.0100, L501.2300, L500.4050, L501.5200 #### [facility] [address] [place], [address] RDW CV Normal 11.6-14.[address] [facility] Comment on above: Result Comment: DUPL ICATE' Performed By: #### L 501.9520, L100.0100, L501.2300, L500.4050, L501.5200 #### [facility] [address] [place], [address] RDW SD Normal 35.1-43.[address] [facility] Comment on above: Result Comment: DUPL ICATE' Performed By: #### L 501.9520, L100.0100, L501.2300, L500.4050, L501.5200 #### [facility] [address] [place], [address] WBC Normal 4.4-11.[address] [facility] Comment on above: Result Comment: DUPL ICATE' Performed By: #### L 501.9520, L100.0100, L501.2300, L500.4050, L501.5200 #### [facility] [address] [place], [address] Carbon dioxide measurementOr dered By: Michelle Marroquin on 04-21-2024 CO2 [Moles/Vol] 30.0 mmol/L 21.0-32.[address] [facility] Chloride measurementOrdered By: Michelle Marroquin on 04-21-2024 Chloride [Moles/Vol] 103 mmol/L 98-107 [facility] Comprehensive Metabolic Prof ilon 04-21-2024 Albumin [Mass/Vol] 3.5 g/dL Normal 3.2-5.0 [facility] Comment on above: Performed By: #### L 501.9520, L100.0100, L501.2300, L500.4050, L501.5200 #### [facility] [address] [place], [address] Albumin/Globulin [Mass ratio] 0.8 {ratio} Low 0.9-2.[address] [facility] Comment on above: Performed By: #### L 501.9520, L100.0100, L501.2300, L500.4050, L501.5200 #### [facility] [address] [place], [address] ALK P 101 U/L Normal 45-[address] [facility] Comment on above: Performed By: #### L 501.9520, L100.0100, L501.2300, L500.4050, L501.5200 #### [facility] [address] [place], [address] ALT [Catalytic activity/Vol] 15 U/L Normal 13-[address] [facility] Comment on above: Performed By: #### L 501.9520, L100.0100, L501.2300, L500.4050, L501.5200 #### [facility] [address] [place], [address] AST [Catalytic activity/Vol] 15 U/L Normal 15-[address] [facility] Comment on above: Performed By: #### L 501.9520, L100.0100, L501.2300, L500.4050, L501.5200 #### [facility] [address] [place], [address] Bilirubin [Mass/Vol] 0.30 mg/dL Normal 0.20-1.00 [facility] Comment on above: Result Comment: For patients on eltrombopag therapy, use of Dimension Mobile TBIL is not recommended. Performed By: #### L 501.9520, L100.0100, L501.2300, L500.4050, L501.5200 #### [facility] [address] [place], [address] BUN/CRE 9.6 RATIO Low 10-[address] [facility] Comment on above: Performed By: #### L 501.9520, L100.0100, L501.2300, L500.4050, L501.5200 #### [facility] [address] [place], [address] CA,Total 9.3 mg/dL Normal 8.5-10.[address] [facility] Comment on above: Performed By: #### L 501.9520, L100.0100, L501.2300, L500.4050, L501.5200 #### [facility] [address] [place], [address] Chloride [Moles/Vol] 103 mmol/L Normal 98-107 [facility] Comment on above: Performed By: #### L 501.9520, L100.0100, L501.2300, L500.4050, L501.5200 #### [facility] [address] [place], [address] CO2 [Moles/Vol] 30.0 mmol/L Normal 21.0-32.[address] [facility] Comment on above: Performed By: #### L 501.9520, L100.0100, L501.2300, L500.4050, L501.5200 #### [facility] [address] [place], [address] Creatinine [Mass/Vol] 0.52 mg/dL Low 0.55-1.02 [facility] Comment on above: Result Comment: The validity of the calculated GFR GFRAA in patients over 70 years has not been determined. Clinical correlation is essential. Performed By: #### L 501.9520, L100.0100, L501.2300, L500.4050, L501.5200 #### [facility] [address] [place], [address] EST GFR - AA 153 mL/min Normal >[address] [facility] Comment on above: Result Comment: Afri can Sudanese GFR Calc Performed By: #### L 501.9520, L100.0100, L501.2300, L500.4050, L501.5200 #### [facility] [address] [place], [address] GAP 6 Normal 5-[address] [facility] Comment on above: Performed By: #### L 501.9520, L100.0100, L501.2300, L500.4050, L501.5200 #### [facility] [address] [place], [address] GFR/1.73 sq M.predicted among non-blacks MDRD (S/P/Bld) [Vol rate/Area] 126 mL/min/{1.73_m2} Normal >[address] [facility] Comment on above: Result Comment: Non- GFR Calc Performed By: #### L 501.9520, L100.0100, L501.2300, L500.4050, L501.5200 #### [facility] [address] [place], [address] Globulin (S) [Mass/Vol] 4.2 g/dL Normal 2.2-4.2 [facility] Comment on above: Performed By: #### L 501.9520, L100.0100, L501.2300, L500.4050, L501.5200 #### [facility] [address] [place], [address] Glucose [Mass/Vol] 95 mg/dL Normal 74-106 [facility] Comment on above: Performed By: #### L 501.9520, L100.0100, L501.2300, L500.4050, L501.5200 #### [facility] [address] [place], [address] Potassium [Moles/Vol] 4.4 mmol/L Normal 3.5-5.1 [facility] Comment on above: Performed By: #### L 501.9520, L100.0100, L501.2300, L500.4050, L501.5200 #### [facility] [address] [place], [address] Sodium [Moles/Vol] 139 mmol/L Normal 136-145 [facility] Comment on above: Performed By: #### L 501.9520, L100.0100, L501.2300, L500.4050, L501.5200 #### [facility] [address] [place], [address] T PROT 7.7 g/dL Normal 6.4-8.[address] [facility] Comment on above: Performed By: #### L 501.9520, L100.0100, L501.2300, L500.4050, L501.5200 #### [facility] [address] [place], [address] Urea nitrogen [Mass/Vol] 5 mg/dL Low 7-[address] [facility] Comment on above: Performed By: #### L 501.9520, L100.0100, L501.2300, L500.4050, L501.5200 #### [facility] [address] [place], [address] Eosinophil percentageOrdered By: Michelle Marroquin on 04-21-2024 Eosinophils/100 WBC (Bld) 7.5 % High 0-[address] [facility] Erythrocyte distribution wid th (RBC) [Ratio]Ordered By: Michelle Marroquin on 04-21-2024 Erythrocyte distribution width (RBC) [Entitic vol] 53.1 fL High 35.1-43.[address] [facility] Erythrocyte distribution wid th ratioOrdered By: Michelle Marroquin on 04-21-2024 Erythrocyte distribution width (RBC) [Ratio] 14.7 % High 11.6-14.[address] [facility] Erythrocyte distribution wid th standard deviationOrdered By: ruddygrawnsinai Marroquin on 04-21-2024 Erythrocyte distribution width (RBC) [Ratio] 53.1 fl High 35.1-43.[address] [facility] Estimated glomerular filtrat ion rate (GFR) AmericanOrdered By: Michelle Marroquin on 04-21-2024 Estimated GFR (MDRD) Amer 153 mL/min >[address] [facility] Comment on above: GFR Calc Glomerular filtration rate ( GFR) estimationOrdered By: Michelle Marroquin on 04-21-2024 Estimated GFR (MDRD) Non-Af Amer 126 mL/min >[address] [facility] Comment on above: Non- GFR Calc GFR/1.73 sq M.predicted among non-blacks MDRD (S/P/Bld) [Vol rate/Area] 126 mL/min/{1.73_m2} >[address] [facility] Comment on above: Non- GFR Calc Glucose measurementOrdered B y: Michelle Marroquin on 04-21-2024 Glucose [Mass/Vol] 95 mg/dL 74-106 [facility] Hematocrit Auto (Bld) [Volum e fraction]Ordered By: Michelle Marroquin on 04-21-2024 Hematocrit (Bld) [Volume fraction] 42.2 % 37-[address] [facility] Hemoglobin measurementOrdere d By: Michelle Marroquin on 04-21-2024 Hemoglobin (Bld) [Mass/Vol] 13.6 g/dL 12.0-15.[address] [facility] Immature granulocytes/100 WB C Auto (Bld)Ordered By: Michelle Marroquin on 04-21-2024 Immature granulocytes/100 WBC (Bld) 0.300 % 0.0-0.[address] [facility] Comment on above: IG% - Immature Granu locytes (promyelocytes, myelocytes and metamyelocytes) > 1% indicates that a LEFT SHIFT is Present. Influenza virus A and B and SARS-CoV-2 (COVID-19) and Respiratory syncytial virus RNAOrdered By: Michelle Marroquin on 04-21-2024 SARS-CoV-2 (COVID-19) RNA WILLIAM+probe Ql (Unsp spec) Influenzae A Abnormal [facility] Internal Medicine Office Vis iton 04-21-2024 Internal Medicine Office Visit [facility] [address] [place], [place] [address] OFFICE VISIT Date of Service: 04/21/24 MR#: [id number] Acct: [id number] Name: TONYA FLETCHER Rep #: [id number] :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 Types A,B Direct FA (DENY) [facility] Influenza Types A,B Direct FA (DENY) [facility] RSV Ag EIAOrdered By: Rocky sloan on 12-12-2022 RSV Ag Immune stain Ql (Tiss) [facility] RSV Ag Immune stain Ql (Tiss) [facility] Absolute lymphocyte countOrd ered By: Rocky Barlow on 12-11-2022 Lymphocytes Auto (Unsp spec) [#/Vol] 2.85 10*3/uL 0.83-4.[address] [facility] Basophil percentageOrdered B y: Rocky Barlow on 12-11-2022 Basophils/100 WBC (Bld) 0.6 % 0-1 [facility] Chloride [Moles/Vol] 107 mmol/L 98-107 [facility] Eosinophils/100 WBC (Bld) 4.0 % 0-[address] [facility] Glucose [Mass/Vol] 106 mg/dL 74-106 [facility] Comment on above: Fasting Glucose resu lt from 100 to 125 mg/dL suggests IMPAIRED HOMEOSTASIS per A.D.A. criteria. Neutrophils (Bld) [#/Vol] 5.6 10*3/uL 2.0-7.[address] [facility] Neutrophils/100 WBC (Bld) 58.3 % 47-[address] [facility] Potassium [Moles/Vol] 4.0 mmol/L 3.5-5.1 [facility] Sodium [Moles/Vol] 141 mmol/L 136-145 [facility] WBC (Bld) [#/Vol] 9.5 10*3/uL 4.4-11.0 [facility] Blood erythrocytes count (nu mber/volume)Ordered By: Rocky Barlow on 12-11-2022 RBC (Bld) [#/Vol] 4.40 10*6/uL 4.2-5.4 [facility] Blood hemoglobin measurement (mass/volume)Ordered By: Rocky Barlow on 12-11-2022 Hemoglobin (Bld) [Mass/Vol] 13.8 g/dL 12.0-15.[address] [facility] Blood lymphocytes/100 leukoc ytesOrdered By: Rocky Barlow on 12-11-2022 Lymphocytes/100 WBC (Bld) 29.9 % 19-[address] [facility] Blood monocytes/100 leukocyt esOrdered By: Rocky Barlow on 12-11-2022 Monocytes/100 WBC (Bld) 7.0 % 0-10 [facility] Blood platelet mean volumeOr dered By: Rocky Barlow on 12-11-2022 Platelet mean volume (Bld) [Entitic vol] 11.7 fL 6.2-12.[address] [facility] Determination of erythrocyte mean corpuscular volume (MCV)Ordered By: Rocky Barlow on 12-11-2022 MCV (RBC) [Entitic vol] 95.7 fL 81-99 [facility] Hematocrit Auto (Bld) [Volum e fraction]Ordered By: Rocky Barlow on 12-11-2022 Hematocrit (Bld) [Volume fraction] 42.1 % 37-[address] [facility] Laboratory - Chemistry and C hemistry - challengeOrdered By: Rocky Barlow on 12-11-2022 CO2 [Moles/Vol] 29.0 mmol/L 21.0-32.[address] [facility] Urea nitrogen/Creatinine [Mass ratio] 12.7 mg/mg 10-[address] [facility] Laboratory - Hematology and Cell countsOrdered By: Rocky Barlow on 12-11-2022 Erythrocyte distribution width (RBC) [Entitic vol] 47.8 fL 35.1-43.[address] [facility] Erythrocyte distribution width (RBC) [Ratio] 13.5 % 11.6-14.[address] [facility] Immature granulocytes/100 WBC (Bld) 0.200 % 0.0-0.[address] [facility] Comment on above: IG% - Immature Granu locytes (promyelocytes, myelocytes and metamyelocytes) > 1% indicates that a LEFT SHIFT is Present. MCH (RBC) [Entitic mass] 31.4 pg 27.0-32.[address] [facility] Nucleated RBC/100 WBC (Bld) [Ratio] 0 % 0-[address] [facility] MCHC Auto (RBC) [Mass/Vol]Or dered By: Rocky Barlow on 12-11-2022 MCHC (RBC) [Mass/Vol] 32.8 g/dL 32-36 [facility] No Panel InformationOrdered By: Rocky Barlow on 12-11-2022 Estimated GFR (MDRD) Amer 173 mL/min >[address] [facility] Comment on above: GFR Calc Estimated GFR (MDRD) Non-Af Amer 143 mL/min >[address] [facility] Comment on above: Non- GFR Calc Platelets bldOrdered By: Rocky Barlow on 12-11-2022 Platelets (Bld) [#/Vol] 213 10*3/uL 150-[address] [facility] Serum or plasma calcium kamilah urement (mass/volume)Ordered By: Rocky Barlow on 12-11-2022 Calcium [Mass/Vol] 9.2 mg/dL 8.5-10.1 [facility] Serum or plasma creatinine m easurement (mass/volume)Ordered By: Rocky Barlow on 12-11-2022 Creatinine [Mass/Vol] 0.47 mg/dL 0.55-1.02 [facility] Comment on above: The validity of the calculated GFR & GFRAA in patients over 70 years has not been determined. Clinical correlation is essential. Serum or plasma urea nitroge n measurement (mass/volume)Ordered By: Rocky Barlow on 12-11-2022 Urea nitrogen [Mass/Vol] 6 mg/dL 7-[address] [facility] Thin prep Papanicolaou smear with manual screeningOrdered By: [facility] 12-[facility]22 Thin prep Papanicolaou smear with manual screening 5 5-[address] [facility] Absolute lymphocyte countOrd ered By: Rocky Barlow on 12-03-2022 Lymphocytes Auto (Unsp spec) [#/Vol] 2.53 10*3/uL 0.83-4.[address] [facility] Basophil percentageOrdered B y: Rocky Barlow on 12-03-2022 Basophils/100 WBC (Bld) 1.4 % 0-1 [facility] Bilirubin [Mass/Vol] 0.30 mg/dL 0.20-1.00 [facility] Comment on above: For patients on eltr ombopag therapy, use of Dimension Mobile TBIL is not recommended. Chloride [Moles/Vol] 108 mmol/L 98-107 [facility] Cholesterol [Mass/Vol] 209 mg/dL <200 [facility] Comment on above: <200 mg/dL Desirable 200-240 mg/dL Borderline >240 mg/dL High Risk Eosinophils/100 WBC (Bld) 6.0 % 0-[address] [facility] Glucose [Mass/Vol] 99 mg/dL 74-106 [facility] Neutrophils (Bld) [#/Vol] 2.8 10*3/uL 2.0-7.[address] [facility] Neutrophils/100 WBC (Bld) 44.4 % 47-[address] [facility] Potassium [Moles/Vol] 3.7 mmol/L 3.5-5.1 [facility] Protein [Mass/Vol] 7.3 g/dL 6.4-8.2 [facility] Sodium [Moles/Vol] 142 mmol/L 136-145 [facility] Triglyceride [Mass/Vol] 146 mg/dL <199 [facility] Comment on above: The drugs N-Acetylcy steine and Metamizole may falsely depress this assay.Serum Triglycerides Reference Interval Normal <150 mg/dL Borderline high 150 - 199 mg/dL High 200 - 499 mg/dL Very High > or = 500 mg/dL WBC (Bld) [#/Vol] 6.3 10*3/uL 4.4-11.0 [facility] Blood erythrocytes count (nu mber/volume)Ordered By: Rocky Barlow on 12-03-2022 RBC (Bld) [#/Vol] 4.59 10*6/uL 4.2-5.4 [facility] Blood hemoglobin measurement (mass/volume)Ordered By: Rocky Barlow on 12-03-2022 Hemoglobin (Bld) [Mass/Vol] 14.1 g/dL 12.0-15.[address] [facility] Blood lymphocytes/100 leukoc ytesOrdered By: Rocky Barlow on 12-03-2022 Lymphocytes/100 WBC (Bld) 40.1 % 19-[address] [facility] Blood monocytes/100 leukocyt esOrdered By: Rocky Barlow on 12-03-2022 Monocytes/100 WBC (Bld) 7.9 % 0-10 [facility] Blood platelet mean volumeOr dered By: Rocky Barlow on 12-03-2022 Platelet mean volume (Bld) [Entitic vol] 11.8 fL 6.2-12.[address] [facility] Determination of erythrocyte mean corpuscular volume (MCV)Ordered By: Rocky Barlow on 12-03-2022 MCV (RBC) [Entitic vol] 96.9 fL 81-99 [facility] Hematocrit Auto (Bld) [Volum e fraction]Ordered By: Rocky Barlow on 12-03-2022 Hematocrit (Bld) [Volume fraction] 44.5 % 37-[address] [facility] Laboratory - Chemistry and C hemistry - challengeOrdered By: Rocky Barlow on 12-03-2022 ALP [Catalytic activity/Vol] 115 U/L 45-[address] [facility] ALT [Catalytic activity/Vol] 18 U/L 13-[address] [facility] CO2 [Moles/Vol] 29.0 mmol/L 21.0-32.[address] [facility] Globulin (S) [Mass/Vol] 3.9 g/dL 2.2-4.2 [facility] Urea nitrogen/Creatinine [Mass ratio] 10.5 mg/mg 10-[address] [facility] Laboratory - Hematology and Cell countsOrdered By: Rocky Barlow on 12-03-2022 Erythrocyte distribution width (RBC) [Entitic vol] 47.1 fL 35.1-43.[address] [facility] Erythrocyte distribution width (RBC) [Ratio] 13.2 % 11.6-14.[address] [facility] Immature granulocytes/100 WBC (Bld) 0.200 % 0.0-0.[address] [facility] Comment on above: IG% - Immature Granu locytes (promyelocytes, myelocytes and metamyelocytes) > 1% indicates that a LEFT SHIFT is Present. MCH (RBC) [Entitic mass] 30.7 pg 27.0-32.[address] [facility] Nucleated RBC/100 WBC (Bld) [Ratio] 0 % 0-[address] [facility] MCHC Auto (RBC) [Mass/Vol]Or dered By: Rocky Barlow on 12-03-2022 MCHC (RBC) [Mass/Vol] 31.7 g/dL 32-36 [facility] No Panel InformationOrdered By: Rocky Barlow on 12-03-2022 Estimated GFR (MDRD) Amer 138 mL/min >[address] [facility] Comment on above: GFR Calc Estimated GFR (MDRD) Non-Af Amer 114 mL/min >[address] [facility] Comment on above: Non- GFR Calc Thyroid Stimulating Hormone (TSH) 1.37 uIU/mL 0.358-3.[address] [facility] Platelets bldOrdered By: Rocky Barlow on 12-03-2022 Platelets (Bld) [#/Vol] 238 10*3/uL 150-[address] [facility] Serum or plasma albumin kamilah urement (mass/volume)Ordered By: Rocky Barlow on 12-03-2022 Albumin [Mass/Vol] 3.4 g/dL 3.2-5.0 [facility] Serum or plasma albumin/glob ulin mass ratioOrdered By: Rocky Barlow on 12-03-2022 Albumin/Globulin [Mass ratio] 0.9 {ratio} 0.9-2.[address] [facility] Serum or plasma calcium kamilah urement (mass/volume)Ordered By: Rocky Barlow on 12-03-2022 Calcium [Mass/Vol] 8.7 mg/dL 8.5-10.1 [facility] Serum or plasma cholesterol in HDL measurement (mass/volume)Ordered By: Rocky Barlow on 12-03-2022 Cholesterol in HDL [Mass/Vol] 56 mg/dL >[address] [facility] Comment on above: The drugs N-Acetylcy steine and Metamizole may falsely depress this assay. Reference Range HDL <40 mg/dL Low HDL Cholesterol HDL >or= 60 mg/dL High HDL Cholesterol Serum or plasma cholesterol in VLDL measurement (mass/volume)Ordered By: Rocky Barlow on 12-03-2022 Cholesterol in VLDL [Mass/Vol] 29 mg/dL 5-[address] [facility] Serum or plasma creatinine m easurement (mass/volume)Ordered By: Rocky Barlow on 12-03-2022 Creatinine [Mass/Vol] 0.57 mg/dL 0.55-1.02 [facility] Comment on above: The validity of the calculated GFR & GFRAA in patients over 70 years has not been determined. Clinical correlation is essential. Serum or plasma low density lipoprotein (LDL) cholesterol measurement (mass/volume)Ordered By: Rocky Barlow on 12-03-2022 Cholesterol in LDL [Mass/Vol] 124 mg/dL 0-[address] [facility] Serum or plasma urea nitroge n measurement (mass/volume)Ordered By: Rocky Barlow on 12-03-2022 Urea nitrogen [Mass/Vol] 6 mg/dL 7-[address] [facility] Thin prep Papanicolaou smear with manual screeningOrdered By: Rocky Barlow on 12-03-2022 Thin prep Papanicolaou smear with manual screening 11 U/L 15-[address] [facility] Thin prep Papanicolaou smear with manual screening 5 5-[address] [facility] Absolute lymphocyte countOrd ered By: Raul Viveros on 08-15-2022 Lymphocytes Auto (Unsp spec) [#/Vol] 2.64 10*3/uL 0.83-4.[address] [facility] Basophil percentageOrdered B y: Raul Viveros on 08-15-2022 Basophil percentage 0 SEEN /hpf 0-5 [facility] Basophils/100 WBC (Bld) 0.5 % 0-1 [facility] Chloride [Moles/Vol] 109 mmol/L 98-107 [facility] Eosinophils/100 WBC (Bld) 3.2 % 0-[address] [facility] Glucose [Mass/Vol] 118 mg/dL 74-106 [facility] Comment on above: Fasting Glucose resu lt from 100 to 125 mg/dL suggests IMPAIRED HOMEOSTASIS per A.D.A. criteria. Lactate [Moles/Vol] 4.6 mmol/L 0.4-2.0 [facility] Comment on above: Critical Result(s) C alled at: 17:45:37 08/15/2022 by: Halie Espinosa. Results read back by same. Neutrophils (Bld) [#/Vol] 5.7 10*3/uL 2.0-7.[address] [facility] Neutrophils/100 WBC (Bld) 59.8 % 47-[address] [facility] Potassium [Moles/Vol] 3.2 mmol/L 3.5-5.1 [facility] Sodium [Moles/Vol] 142 mmol/L 136-145 [facility] WBC (Bld) [#/Vol] 9.6 10*3/uL 4.4-11.0 [facility] Bilirubin Test strip Ql (U)O rdered By: Raul Viveros on 08-15-2022 Bilirubin Ql (U) Negative Negative [facility] Blood erythrocytes count (nu mber/volume)Ordered By: Raul Viveros on 08-15-2022 RBC (Bld) [#/Vol] 4.49 10*6/uL 4.2-5.4 [facility] Blood hemoglobin measurement (mass/volume)Ordered By: Raul Viveros on 08-15-2022 Hemoglobin (Bld) [Mass/Vol] 14.3 g/dL 12.0-15.[address] [facility] Blood lymphocytes/100 leukoc ytesOrdered By: Raul Viveros on 08-15-2022 Lymphocytes/100 WBC (Bld) 27.6 % 19-[address] [facility] Blood monocytes/100 leukocyt esOrdered By: Raul Viveros on 08-15-2022 Monocytes/100 WBC (Bld) 8.7 % 0-10 [facility] Blood platelet mean volumeOr dered By: Raul Viveros on 08-15-2022 Platelet mean volume (Bld) [Entitic vol] 11.1 fL 6.2-12.[address] [facility] Determination of erythrocyte mean corpuscular volume (MCV)Ordered By: Raul Viveros on 08-15-2022 MCV (RBC) [Entitic vol] 97.6 fL 81-99 [facility] Hematocrit Auto (Bld) [Volum e fraction]Ordered By: Raul Viveros on 08-15-2022 Hematocrit (Bld) [Volume fraction] 43.8 % 37-[address] [facility] Influenza virus A and B and SARS-CoV-2 (COVID-19) Ag panel - Upper respiratory specimOrdered By: Raul Viveros on 08-15-2022 SARS-CoV-2 (COVID-19) RNA WILLIAM+probe Ql (Resp) [facility] Ketones Test strip Ql (U)Ord ered By: Raul Viveros on 08-15-2022 Ketones Ql (U) 5 mg/dl Negative [facility] Laboratory - Chemistry and C hemistry - challengeOrdered By: Raul Viveros on 08-15-2022 CO2 [Moles/Vol] 28.0 mmol/L 21.0-32.[address] [facility] Urea nitrogen/Creatinine [Mass ratio] 13.5 mg/mg 10-[address] [facility] Laboratory - Hematology and Cell countsOrdered By: Raul Viveros on 08-15-2022 Erythrocyte distribution width (RBC) [Entitic vol] 49.0 fL 35.1-43.[address] [facility] Erythrocyte distribution width (RBC) [Ratio] 13.5 % 11.6-14.[address] [facility] Immature granulocytes/100 WBC (Bld) 0.200 % 0.0-0.[address] [facility] Comment on above: IG% - Immature Granu locytes (promyelocytes, myelocytes and metamyelocytes) > 1% indicates that a LEFT SHIFT is Present. MCH (RBC) [Entitic mass] 31.8 pg 27.0-32.[address] [facility] Nucleated RBC/100 WBC (Bld) [Ratio] 0 % 0-[address] [facility] Laboratory - Microbiology an d Antimicrobial susceptibilityOrdered By: Raul Viveros on 08-15-2022 Bacteria identified Cx Nom (Bld) No growth in [address] [facility] MCHC Auto (RBC) [Mass/Vol]Or dered By: Raul Viveros on 08-15-2022 MCHC (RBC) [Mass/Vol] 32.6 g/dL 32-36 [facility] Mucus LM Ql (Urine sed)Order ed By: Raul Viveros on 08-15-2022 Mucus Ql (Urine sed) 0 SEEN /hpf [facility] Nitrite Test strip Ql (U)Ord ered By: Raul Viveros on 08-15-2022 Nitrite Ql (U) Negative Negative [facility] No Panel InformationOrdered By: Raul Viveros on 08-15-2022 Estimated Creatinine Clearance Calc 71.92 ml/min [facility] Estimated GFR (MDRD) Amer 132 mL/min >[address] [facility] Comment on above: GFR Calc Estimated GFR (MDRD) Non-Af Amer 109 mL/min >[address] [facility] Comment on above: Non- GFR Calc Platelets bldOrdered By: Danette Viveros on 08-15-2022 Platelets (Bld) [#/Vol] 284 10*3/uL 150-[address] [facility] Protein Test strip Ql (U)Ord ered By: Raul Viveros on 08-15-2022 Protein Ql (U) Negative Negative [facility] Serum or plasma calcium kamilah urement (mass/volume)Ordered By: Raul Viveros on 08-15-2022 Calcium [Mass/Vol] 9.0 mg/dL 8.5-10.1 [facility] Serum or plasma creatinine m easurement (mass/volume)Ordered By: Raul Viveros on 08-15-2022 Creatinine [Mass/Vol] 0.59 mg/dL 0.55-1.02 [facility] Comment on above: The validity of the calculated GFR & GFRAA in patients over 70 years has not been determined. Clinical correlation is essential. Serum or plasma urea nitroge n measurement (mass/volume)Ordered By: Raul Viveros on 08-15-2022 Urea nitrogen [Mass/Vol] 8 mg/dL 7-[address] [facility] Squamous epithelial cells de tection in urine sediment by light microscopyOrdered By: Remus Viveros on 08-15-2022 Epithelial cells.squamous LM Ql (Urine sed) 0 SEEN /hpf 5-[address] [facility] Thin prep Papanicolaou smear with manual screeningOrdered By: Remus Viveros on 08-15-2022 Thin prep Papanicolaou smear with manual screening 5 5-[address] [facility] Urine blood detectionOrdered By: Remus Viveros on 08-15-2022 RBC Ql (U) Negative Negative [facility] RBC Ql (U) 0 SEEN /hpf 0-[address] [facility] Urine clarityOrdered By: Rem us Jackeline on 08-15-2022 Clarity (U) Clear Clear [facility] Urine color determinationOrd ered By: Raul Viveros on 08-15-2022 Color (U) Yellow Yellow [facility] Urine glucose detectionOrder ed By: Raul Viveros on 08-15-2022 Glucose Ql (U) Normal mg/dl Normal [facility] Urine leukocyte esterase det ection by dipstickOrdered By: Raul Viveros on 08-15-2022 Leukocyte esterase Test strip Ql (U) Negative Negative [facility] Urine pHOrdered By: Raul shermanr on 08-15-2022 pH (U) 5.0 [pH] 5.0 - 8.[address] [facility] Urine sediment bacteria coun t by microscopy (number/high power field)Ordered By: Raul Viveros on 08-15-2022 Bacteria LM.HPF (Urine sed) [#/Area] 0 /[HPF] None Seen [facility] Urine specific gravity measu rementOrdered By: Raul Viveros on 08-15-2022 Specific gravity (U) [Rel density] 1.015 1.002-1.[address] [facility] Urobilinogen Auto test strip Ql (U)Ordered By: Remus Viveros on 08-15-2022 Urobilinogen Ql (U) Normal mg/dl Normal [facility] Absolute lymphocyte countOrd ered By: Dr. Barlow on 05-30-2022 Lymphocytes Auto (Unsp spec) [#/Vol] 3.00 10*3/uL 0.83-4.[address] [facility] Basophil percentageOrdered B y: Dr. Barlow on 05-30-2022 Basophils/100 WBC (Bld) 0.8 % 0-1 [facility] Bilirubin [Mass/Vol] 0.40 mg/dL 0.20-1.00 [facility] Comment on above: For patients on eltr ombopag therapy, use of Dimension Mobile TBIL is not recommended. Chloride [Moles/Vol] 105 mmol/L 98-107 [facility] Cholesterol [Mass/Vol] 219 mg/dL <200 [facility] Comment on above: <200 mg/dL Desirable 200-240 mg/dL Borderline >240 mg/dL High Risk Eosinophils/100 WBC (Bld) 6.3 % 0-[address] [facility] Glucose [Mass/Vol] 87 mg/dL 74-106 [facility] Neutrophils (Bld) [#/Vol] 3.6 10*3/uL 2.0-7.[address] [facility] Neutrophils/100 WBC (Bld) 47.3 % 47-[address] [facility] Potassium [Moles/Vol] 3.8 mmol/L 3.5-5.1 [facility] Comment on above: Moderate Hemolysis, Result may be falsely increased. Protein [Mass/Vol] 7.5 g/dL 6.4-8.2 [facility] Sodium [Moles/Vol] 140 mmol/L 136-145 [facility] Triglyceride [Mass/Vol] 66 mg/dL <199 [facility] Comment on above: The drugs N-Acetylcy steine and Metamizole may falsely depress this assay.Serum Triglycerides Reference Interval Normal <150 mg/dL Borderline high 150 - 199 mg/dL High 200 - 499 mg/dL Very High > or = 500 mg/dL WBC (Bld) [#/Vol] 7.6 10*3/uL 4.4-11.0 [facility] Blood erythrocytes count (nu mber/volume)Ordered By: Dr. Barlow on 05-30-2022 RBC (Bld) [#/Vol] 4.52 10*6/uL 4.2-5.4 [facility] Blood hemoglobin measurement (mass/volume)Ordered By: Dr. Barlow on 05-30-2022 Hemoglobin (Bld) [Mass/Vol] 14.1 g/dL 12.0-15.[address] [facility] Blood lymphocytes/100 leukoc ytesOrdered By: Dr. Barlow on 05-30-2022 Lymphocytes/100 WBC (Bld) 39.3 % 19-[address] [facility] Blood monocytes/100 leukocyt esOrdered By: Dr. Barlow on 05-30-2022 Monocytes/100 WBC (Bld) 6.2 % 0-10 [facility] Blood platelet mean volumeOr dered By: Dr. Barlow on 05-30-2022 Platelet mean volume (Bld) [Entitic vol] 11.0 fL 6.2-12.[address] [facility] Determination of erythrocyte mean corpuscular volume (MCV)Ordered By: Dr. Barlow on 05-30-2022 MCV (RBC) [Entitic vol] 96.0 fL 81-99 [facility] Hematocrit Auto (Bld) [Volum e fraction]Ordered By: Dr. Barlow on 05-30-2022 Hematocrit (Bld) [Volume fraction] 43.4 % 37-[address] [facility] Laboratory - Chemistry and C hemistry - challengeOrdered By: Dr. Barlow on 05-30-2022 ALP [Catalytic activity/Vol] 100 U/L 45-[address] [facility] ALT [Catalytic activity/Vol] 20 U/L 13-[address] [facility] CO2 [Moles/Vol] 26.0 mmol/L 21.0-32.[address] [facility] Globulin (S) [Mass/Vol] 3.8 g/dL 2.2-4.2 [facility] Urea nitrogen/Creatinine [Mass ratio] 12.8 mg/mg 10-[address] [facility] Laboratory - Hematology and Cell countsOrdered By: Dr. Barlow on 05-30-2022 Erythrocyte distribution width (RBC) [Entitic vol] 49.1 fL 35.1-43.[address] [facility] Erythrocyte distribution width (RBC) [Ratio] 13.8 % 11.6-14.[address] [facility] Immature granulocytes/100 WBC (Bld) 0.100 % 0.0-0.[address] [facility] Comment on above: IG% - Immature Granu locytes (promyelocytes, myelocytes and metamyelocytes) > 1% indicates that a LEFT SHIFT is Present. MCH (RBC) [Entitic mass] 31.2 pg 27.0-32.[address] [facility] Nucleated RBC/100 WBC (Bld) [Ratio] 0 % 0-[address] [facility] MCHC Auto (RBC) [Mass/Vol]Or dered By: Dr. Barlow on 05-30-2022 MCHC (RBC) [Mass/Vol] 32.5 g/dL 32-36 [facility] No Panel InformationOrdered By: Dr. Barlow on 05-30-2022 Estimated GFR (MDRD) Amer 145 mL/min >[address] [facility] Comment on above: GFR Calc Estimated GFR (MDRD) Non-Af Amer 120 mL/min >[address] [facility] Comment on above: Non- GFR Calc Thyroid Stimulating Hormone (TSH) 1.39 uIU/mL 0.358-3.[address] [facility] Vitamin D 25-Hydroxy 48.5 ng/mL [facility] Comment on above: Vitamin D 25(OH) Sta tus Range Deficiency <20 ng/mL (50nmol/L) Insufficiency 20 - 30 ng/mL (50 - 75 nmol/L) Sufficiency 30 - 100 ng/mL (75 - 250 nmol/L) Toxicity >100 ng/mL (>250 nmol/L) Platelets bldOrdered By: Dr. Barlow on 05-30-2022 Platelets (Bld) [#/Vol] 311 10*3/uL 150-[address] [facility] Serum or plasma albumin kamilah urement (mass/volume)Ordered By: Dr. Barlow on 05-30-2022 Albumin [Mass/Vol] 3.7 g/dL 3.2-5.0 [facility] Serum or plasma albumin/glob ulin mass ratioOrdered By: Dr. Barlow on 05-30-2022 Albumin/Globulin [Mass ratio] 1.0 {ratio} 0.9-2.[address] [facility] Serum or plasma calcium kamilah urement (mass/volume)Ordered By: Dr. Barlow on 05-30-2022 Calcium [Mass/Vol] 9.2 mg/dL 8.5-10.1 [facility] Serum or plasma cholesterol in HDL measurement (mass/volume)Ordered By: Dr. Barlow on 05-30-2022 Cholesterol in HDL [Mass/Vol] 73 mg/dL >[address] [facility] Comment on above: The drugs N-Acetylcy steine and Metamizole may falsely depress this assay. Reference Range HDL <40 mg/dL Low HDL Cholesterol HDL >or= 60 mg/dL High HDL Cholesterol Serum or plasma cholesterol in VLDL measurement (mass/volume)Ordered By: Dr. Barlow on 05-30-2022 Cholesterol in VLDL [Mass/Vol] 13 mg/dL 5-[address] [facility] Serum or plasma creatinine m easurement (mass/volume)Ordered By: Dr. Barlow on 05-30-2022 Creatinine [Mass/Vol] 0.55 mg/dL 0.55-1.02 [facility] Comment on above: The validity of the calculated GFR & GFRAA in patients over 70 years has not been determined. Clinical correlation is essential. Serum or plasma low density lipoprotein (LDL) cholesterol measurement (mass/volume)Ordered By: Dr. Barlow on 05-30-2022 Cholesterol in LDL [Mass/Vol] 133 mg/dL 0-[address] [facility] Serum or plasma urea nitroge n measurement (mass/volume)Ordered By: Dr. Barlow on 05-30-2022 Urea nitrogen [Mass/Vol] 7 mg/dL 7-[address] [facility] Thin prep Papanicolaou smear with manual screeningOrdered By: Dr. Barlow on 05-30-2022 Thin prep Papanicolaou smear with manual screening 20 U/L 15-[address] [facility] Comment on above: Moderate Hemolysis, Result may be falsely increased. Thin prep Papanicolaou smear with manual screening 9 5-[address] [facility] Laboratory - Microbiology an d Antimicrobial susceptibilityOrdered By: Dr. Barlow on 03-29-2022 SARS-CoV-2 (COVID-19) RNA WILLIAM+probe Ql (Unsp spec) Not detected Not Detect [facility] Comment on above: Normal Reference Ran ge: Not DetectedMethod:(RT-PCR) real-time reverse transcriptase PCRLuminex MER[facility] Instrument*The Food and Drug Administration (FDA) has issued an Emergency Use Authorization (EAU) for the [facility] SARS-CoV-2 Assay for the rapid detection of the virus that causes COVID-19. This test has been validated, but the [facility] review of this validation is pending.*Negative [...] 03-29-2022 Influenza Types A,B Direct FA (DENY) [facility] RSV Ag EIAOrdered By: Dr. Deisi sloan on 03-29-2022 RSV Ag Immune stain Ql (Tiss) [facility] Absolute lymphocyte countOrd ered By: Dr. Palomino on 03-21-2022 Lymphocytes Auto (Unsp spec) [#/Vol] 2.24 10*3/uL 0.83-4.[address] [facility] Basophil percentageOrdered B y: Dr. Palomino on 03-21-2022 Basophils/100 WBC (Bld) 0.5 % 0-1 [facility] Bilirubin [Mass/Vol] 0.30 mg/dL 0.20-1.00 [facility] Comment on above: For patients on eltr ombopag therapy, use of Dimension Mobile TBIL is not recommended. Chloride [Moles/Vol] 107 mmol/L 98-107 [facility] Eosinophils/100 WBC (Bld) 2.5 % 0-[address] [facility] Glucose [Mass/Vol] 118 mg/dL 74-106 [facility] Comment on above: Fasting Glucose resu lt from 100 to 125 mg/dL suggests IMPAIRED HOMEOSTASIS per A.D.A. criteria. Neutrophils (Bld) [#/Vol] 8.8 10*3/uL 2.0-7.[address] [facility] Neutrophils/100 WBC (Bld) 70.5 % 47-[address] [facility] Potassium [Moles/Vol] 3.7 mmol/L 3.5-5.1 [facility] Protein [Mass/Vol] 7.9 g/dL 6.4-8.2 [facility] Sodium [Moles/Vol] 142 mmol/L 136-145 [facility] WBC (Bld) [#/Vol] 12.5 10*3/uL 4.4-11.0 [facility] Blood erythrocytes count (nu mber/volume)Ordered By: Dr. Palomino on 03-21-2022 RBC (Bld) [#/Vol] 4.52 10*6/uL 4.2-5.4 [facility] Blood hemoglobin measurement (mass/volume)Ordered By: Dr. Palomino on 03-21-2022 Hemoglobin (Bld) [Mass/Vol] 14.1 g/dL 12.0-15.[address] [facility] Blood lymphocytes/100 leukoc ytesOrdered By: Dr. Palomino on 03-21-2022 Lymphocytes/100 WBC (Bld) 17.9 % 19-[address] [facility] Blood monocytes/100 leukocyt esOrdered By: Dr. Palomino on 03-21-2022 Monocytes/100 WBC (Bld) 8.3 % 0-10 [facility] Blood platelet mean volumeOr dered By: Dr. Palomino on 03-21-2022 Platelet mean volume (Bld) [Entitic vol] 10.6 fL 6.2-12.[address] [facility] Determination of erythrocyte mean corpuscular volume (MCV)Ordered By: Dr. Palomino on 03-21-2022 MCV (RBC) [Entitic vol] 96.7 fL 81-99 [facility] Hematocrit Auto (Bld) [Volum e fraction]Ordered By: Dr. Palomino on 03-21-2022 Hematocrit (Bld) [Volume fraction] 43.7 % 37-[address] [facility] Influenza virus A and B and SARS-CoV-2 (COVID-19) Ag panel - Upper respiratory specimOrdered By: Dr. Palomino on 03-21-2022 SARS-CoV-2 (COVID-19) RNA WILLIAM+probe Ql (Resp) [facility] Laboratory - Chemistry and C hemistry - challengeOrdered By: Dr. Palomino on 03-21-2022 ALP [Catalytic activity/Vol] 109 U/L 45-[address] [facility] ALT [Catalytic activity/Vol] 15 U/L 13-[address] [facility] CO2 [Moles/Vol] 31.0 mmol/L 21.0-32.[address] [facility] Globulin (S) [Mass/Vol] 4.2 g/dL 2.2-4.2 [facility] Urea nitrogen/Creatinine [Mass ratio] 14.4 mg/mg 10-[address] [facility] Laboratory - Hematology and Cell countsOrdered By: Dr. Palomino on 03-21-2022 Erythrocyte distribution width (RBC) [Entitic vol] 49.3 fL 35.1-43.[address] [facility] Erythrocyte distribution width (RBC) [Ratio] 13.7 % 11.6-14.[address] [facility] Immature granulocytes/100 WBC (Bld) 0.300 % 0.0-0.[address] [facility] Comment on above: IG% - Immature Granu locytes (promyelocytes, myelocytes and metamyelocytes) > 1% indicates that a LEFT SHIFT is Present. MCH (RBC) [Entitic mass] 31.2 pg 27.0-32.[address] [facility] Nucleated RBC/100 WBC (Bld) [Ratio] 0 % 0-[address] [facility] MCHC Auto (RBC) [Mass/Vol]Or dered By: Dr. Palomino on 03-21-2022 MCHC (RBC) [Mass/Vol] 32.3 g/dL 32-36 [facility] No Panel InformationOrdered By: Dr. Palomino on 03-21-2022 Estimated Creatinine Clearance Calc 82.08 ml/min [facility] Estimated GFR (MDRD) Amer 143 mL/min >[address] [facility] Comment on above: GFR Calc Estimated GFR (MDRD) Non-Af Amer 119 mL/min >[address] [facility] Comment on above: Non- GFR Calc Platelets bldOrdered By: Dr. Palomino on 03-21-2022 Platelets (Bld) [#/Vol] 278 10*3/uL 150-[address] [facility] Serum or plasma albumin kamilah urement (mass/volume)Ordered By: Dr. Palomino on 03-21-2022 Albumin [Mass/Vol] 3.7 g/dL 3.2-5.0 [facility] Serum or plasma albumin/glob ulin mass ratioOrdered By: Dr. Palomino on 03-21-2022 Albumin/Globulin [Mass ratio] 0.9 {ratio} 0.9-2.[address] [facility] Serum or plasma calcium kamilah urement (mass/volume)Ordered By: Dr. Palomino on 03-21-2022 Calcium [Mass/Vol] 9.4 mg/dL 8.5-10.1 [facility] Serum or plasma creatinine m easurement (mass/volume)Ordered By: Dr. Palomino on 03-21-2022 Creatinine [Mass/Vol] 0.55 mg/dL 0.55-1.02 [facility] Comment on above: The validity of the calculated GFR & GFRAA in patients over 70 years has not been determined. Clinical correlation is essential. Serum or plasma urea nitroge n measurement (mass/volume)Ordered By: Dr. Palomino on 03-21-2022 Urea nitrogen [Mass/Vol] 8 mg/dL 7-[address] [facility] Thin prep Papanicolaou smear with manual screeningOrdered By: Dr. Palomino on 03-21-2022 Thin prep Papanicolaou smear with manual screening 10 U/L 15-[address] [facility] Thin prep Papanicolaou smear with manual screening 4 5-[address] [facility] Laboratory - Microbiology an d Antimicrobial susceptibilityon 01-21-2022 SARS-CoV-2 (COVID-19) RNA WILLIAM+probe Ql (Unsp spec) Not detected [facility] No Panel Informationon 01-21 Influenza Types A,B Rapid (Clinic) Not detected [facility] Absolute lymphocyte countOrd ered By: Dr. Ann on 01-03-2022 Lymphocytes Auto (Unsp spec) [#/Vol] 1.37 10*3/uL 0.83-4.[address] [facility] Basophil percentageOrdered B y: Dr. Ann on 01-03-2022 Basophils/100 WBC (Bld) 0.2 % 0-1 [facility] Chloride [Moles/Vol] 108 mmol/L 98-107 [facility] Eosinophils/100 WBC (Bld) 0.0 % 0-[address] [facility] Glucose [Mass/Vol] 124 mg/dL 74-106 [facility] Comment on above: Fasting Glucose resu lt from 100 to 125 mg/dL suggests IMPAIRED HOMEOSTASIS per A.D.A. criteria. Neutrophils (Bld) [#/Vol] 7.9 10*3/uL 2.0-7.[address] [facility] Neutrophils/100 WBC (Bld) 79.9 % 47-[address] [facility] Potassium [Moles/Vol] 3.8 mmol/L 3.5-5.1 [facility] Sodium [Moles/Vol] 143 mmol/L 136-145 [facility] WBC (Bld) [#/Vol] 9.9 10*3/uL 4.4-11.0 [facility] Blood erythrocytes count (nu mber/volume)Ordered By: Dr. Ann on 01-03-2022 RBC (Bld) [#/Vol] 4.49 10*6/uL 4.2-5.4 [facility] Blood hemoglobin measurement (mass/volume)Ordered By: Dr. Ann on 01-03-2022 Hemoglobin (Bld) [Mass/Vol] 14.5 g/dL 12.0-15.[address] [facility] Blood lymphocytes/100 leukoc ytesOrdered By: Dr. Ann on 01-03-2022 Lymphocytes/100 WBC (Bld) 13.8 % 19-[address] [facility] Blood monocytes/100 leukocyt esOrdered By: Dr. Ann on 01-03-2022 Monocytes/100 WBC (Bld) 5.5 % 0-10 [facility] Blood platelet mean volumeOr dered By: Dr. Ann on 01-03-2022 Platelet mean volume (Bld) [Entitic vol] 10.9 fL 6.2-12.[address] [facility] Determination of erythrocyte mean corpuscular volume (MCV)Ordered By: Dr. Ann on 01-03-2022 MCV (RBC) [Entitic vol] 96.0 fL 81-99 [facility] Hematocrit Auto (Bld) [Volum e fraction]Ordered By: Dr. Ann on 01-03-2022 Hematocrit (Bld) [Volume fraction] 43.1 % 37-[address] [facility] Laboratory - Chemistry and C hemistry - challengeOrdered By: Dr. Ann on 01-03-2022 CO2 [Moles/Vol] 28.0 mmol/L 21.0-32.[address] [facility] Urea nitrogen/Creatinine [Mass ratio] 27.4 mg/mg 10-[address] [facility] Laboratory - Hematology and Cell countsOrdered By: Dr. Ann on 01-03-2022 Erythrocyte distribution width (RBC) [Entitic vol] 51.5 fL 35.1-43.[address] [facility] Erythrocyte distribution width (RBC) [Ratio] 14.5 % 11.6-14.[address] [facility] Immature granulocytes/100 WBC (Bld) 0.600 % 0.0-0.[address] [facility] Comment on above: IG% - Immature Granu locytes (promyelocytes, myelocytes and metamyelocytes) > 1% indicates that a LEFT SHIFT is Present. MCH (RBC) [Entitic mass] 32.3 pg 27.0-32.[address] [facility] Nucleated RBC/100 WBC (Bld) [Ratio] 0 % 0-[address] [facility] MCHC Auto (RBC) [Mass/Vol]Or dered By: Dr. Ann on 01-03-2022 MCHC (RBC) [Mass/Vol] 33.6 g/dL 32-36 [facility] No Panel InformationOrdered By: Dr. Ann on 01-03-2022 Estimated Creatinine Clearance Calc 78.13 ml/min [facility] Estimated GFR (MDRD) Amer 146 mL/min >[address] [facility] Comment on above: GFR Calc Estimated GFR (MDRD) Non-Af Amer 120 mL/min >[address] [facility] Comment on above: Non- GFR Calc Platelets bldOrdered By: Dr. Ann on 01-03-2022 Platelets (Bld) [#/Vol] 277 10*3/uL 150-[address] [facility] Serum or plasma calcium kamilah urement (mass/volume)Ordered By: Dr. Ann on 01-03-2022 Calcium [Mass/Vol] 9.6 mg/dL 8.5-10.1 [facility] Serum or plasma creatinine m easurement (mass/volume)Ordered By: Dr. Ann on 01-03-2022 Creatinine [Mass/Vol] 0.55 mg/dL 0.55-1.02 [facility] Comment on above: The validity of the calculated GFR & GFRAA in patients over 70 years has not been determined. Clinical correlation is essential. Serum or plasma urea nitroge n measurement (mass/volume)Ordered By: Dr. Ann on 01-03-2022 Urea nitrogen [Mass/Vol] 15 mg/dL 7-[address] [facility] Thin prep Papanicolaou smear with manual screeningOrdered By: Dr. Ann on 01-03-2022 Thin prep Papanicolaou smear with manual screening 7 5-[address] [facility] Basophil percentageOrdered B y: Dr. Fortune on 01-02-2022 Lactate [Moles/Vol] 1.8 mmol/L 0.4-2.0 [facility] Laboratory - Microbiology an d Antimicrobial susceptibilityOrdered By: Dr. Barlow on 12-31-2021 SARS-CoV-2 (COVID-19) RNA WILLIAM+probe Ql (Unsp spec) Not detected Not Detect [facility] Comment on above: Normal Reference Ran ge: Not DetectedMethod:(RT-PCR) real-time reverse transcriptase PCRLuminex MERCY Instrument*The Food and Drug Administration (FDA) has issued an Emergency Use Authorization (EAU) for the Penana SARS-CoV-2 Assay for the rapid detection of the virus that causes COVID-19. This test has been validated, but the [facility] of this validation is pending.*Negative [...] 12-31-2021 Influenza Types A,B Direct FA (DENY) [facility] RSV Ag Immune stain Ql (Tiss )Ordered By: Dr. Barlow on 12-31-2021 Rapid RSV (DFA) RSV Antigen [facility] Laboratory - Microbiology an d Antimicrobial susceptibilityon 11-30-2021 SARS-CoV-2 (COVID-19) RNA WILLIAM+probe Ql (Unsp spec) Not detected Not Detect [facility] Work Phone: Comment on above: Normal Reference Ran ge: Not DetectedMethod:(RT-PCR) real-time reverse transcriptase PCRLuminex MERCY Instrument*The Food and Drug Administration (FDA) has issued an Emergency Use Authorization (EAU) for the Penana SARS-CoV-2 Assay for the rapid detection of the virus that causes COVID-19. This test has been validated, but the [facility] review of this validation is pending.*Negative [...] Auto (Unsp spec) [#/Vol] 2.65 10*3/uL 0.83-4.[address] [facility] Work Phone: Basophil percentageon 2021 Basophils/100 WBC (Bld) 0.6 % 0-1 [facility] Work Phone: [phone] Bilirubin [Mass/Vol] 0.20 mg/dL 0.20-1.00 [facility] Work Phone: [phone] Comment on above: For patients on eltr ombopag therapy, use of [employer] TBIL is not recommended. Chloride [Moles/Vol] 103 mmol/L 98-107 [facility] Work Phone: Eosinophils/100 WBC (Bld) 3.5 % 0-[address] [facility] Work Phone: [phone] Glucose [Mass/Vol] 98 mg/dL 74-106 [facility] Work Phone: Neutrophils (Bld) [#/Vol] 6.8 10*3/uL 2.0-7.[address] [facility] Work Phone: Neutrophils/100 WBC (Bld) 64.9 % 47-[address] [facility] Work Phone: Potassium [Moles/Vol] 3.8 mmol/L 3.5-5.1 [facility] Work Phone: [phone] Comment on above: Slight Hemolysis, Re sult may be falsely increased. Protein [Mass/Vol] 7.8 g/dL 6.4-8.2 [facility] Work Phone: Sodium [Moles/Vol] 138 mmol/L 136-145 [facility] Work Phone: WBC (Bld) [#/Vol] 10.4 10*3/uL 4.4-11.0 [facility] Work Phone: Blood erythrocytes count (nu mber/volume)on 11-28-2021 RBC (Bld) [#/Vol] 4.40 10*6/uL 4.2-5.4 [facility] Work Phone: [phone] Blood hemoglobin measurement (mass/volume)on 11-28-2021 Hemoglobin (Bld) [Mass/Vol] 14.0 g/dL 12.0-15.[address] [facility] Work Phone: Blood lymphocytes/100 leukoc yteson 11-28-2021 Lymphocytes/100 WBC (Bld) 25.4 % 19-[address] [facility] Work Phone: Blood monocytes/100 leukocyt eson 11-28-2021 Monocytes/100 WBC (Bld) 5.2 % 0-10 [facility] Work Phone: Blood platelet mean volumeon 11-28-2021 Platelet mean volume (Bld) [Entitic vol] 11.6 fL 6.2-12.[address] [facility] Work Phone: [phone] Determination of erythrocyte mean corpuscular volume (MCV)on 11-28-2021 MCV (RBC) [Entitic vol] 97.0 fL 81-99 [facility] Work Phone: Hematocrit Auto (Bld) [Volum e fraction]on 11-28-2021 Hematocrit (Bld) [Volume fraction] 42.7 % 37-[address] [facility] Work Phone: [phone] Laboratory - Chemistry and C hemistry - challengeon 11-28-2021 ALP [Catalytic activity/Vol] 109 U/L 45-[address] [facility] Work Phone: ALT [Catalytic activity/Vol] 24 U/L 13-[address] [facility] Work Phone: CO2 [Moles/Vol] 26.0 mmol/L 21.0-32.[address] [facility] Work Phone: Globulin (S) [Mass/Vol] 4.1 g/dL 2.2-4.2 [facility] Work Phone: Urea nitrogen/Creatinine [Mass ratio] 24.8 mg/mg 10-[address] [facility] Work Phone: Laboratory - Hematology and Cell countson 11-28-2021 Erythrocyte distribution width (RBC) [Entitic vol] 49.1 fL 35.1-43.[address] [facility] Work Phone: Erythrocyte distribution width (RBC) [Ratio] 13.8 % 11.6-14.[address] [facility] Work Phone: Immature granulocytes/100 WBC (Bld) 0.400 % 0.0-0.[address] [facility] Work Phone: Comment on above: IG% - Immature Granu locytes (promyelocytes, myelocytes and metamyelocytes) > 1% indicates that a LEFT SHIFT is Present. MCH (RBC) [Entitic mass] 31.8 pg 27.0-32.[address] [facility] Work Phone: Nucleated RBC/100 WBC (Bld) [Ratio] 0 % 0-[address] [facility] Work Phone: MCHC Auto (RBC) [Mass/Vol]on 11-28-2021 MCHC (RBC) [Mass/Vol] 32.8 g/dL 32-36 [facility] Work Phone: No Panel Informationon 11-28 Estimated GFR (MDRD) Amer 153 mL/min >[address] [facility] Work Phone: Comment on above: GFR Calc Estimated GFR (MDRD) Non-Af Amer 126 mL/min >[address] [facility] Work Phone: Comment on above: Non- GFR Calc Thyroid Stimulating Hormone (TSH) 1.16 uIU/mL 0.358-3.[address] [facility] Work Phone: Vitamin D 25-Hydroxy 31.6 ng/mL [facility] Work Phone: Comment on above: Vitamin D 25(OH) Sta tus Range Deficiency <20 ng/mL (50nmol/L) Insufficiency 20 - 30 ng/mL (50 - 75 nmol/L) Sufficiency 30 - 100 ng/mL (75 - 250 nmol/L) Toxicity >100 ng/mL (>250 nmol/L) Platelets bldon 11-28-2021 Platelets (Bld) [#/Vol] 304 10*3/uL 150-[address] [facility] Work Phone: Serum or plasma albumin kamilah urement (mass/volume)on 11-28-2021 Albumin [Mass/Vol] 3.7 g/dL 3.2-5.0 [facility] Work Phone: Serum or plasma albumin/glob ulin mass ratioon 11-28-2021 Albumin/Globulin [Mass ratio] 0.9 {ratio} 0.9-2.[address] [facility] Work Phone: Serum or plasma calcium kamilah urement (mass/volume)on 11-28-2021 Calcium [Mass/Vol] 9.0 mg/dL 8.5-10.1 [facility] Work Phone: Serum or plasma creatinine m easurement (mass/volume)on 11-28-2021 Creatinine [Mass/Vol] 0.52 mg/dL 0.55-1.02 [facility] Work Phone: Comment on above: The validity of the calculated GFR & GFRAA in patients over 70 years has not been determined. Clinical correlation is essential. Serum or plasma urea nitroge n measurement (mass/volume)on 11-28-2021 Urea nitrogen [Mass/Vol] 13 mg/dL 7-[address] [facility] Work Phone: Thin prep Papanicolaou smear with manual screeningon 11-28-2021 Thin prep Papanicolaou smear with manual screening 21 U/L 15-[address] [facility] Work Phone: Comment on above: Slight Hemolysis, Re sult may be falsely increased. Thin prep Papanicolaou smear with manual screening 9 - [facility] Work Phone: BACTERIAL VAGINOSIS AMPLIFIC ATIONon 10-27-2021 Lactobacillus crispatus+gasseri+jense heather + Gardnerella vaginalis + Atopobium vaginae rRNA WILLIAM+probe Ql (Vag fld) Negative Negative for bacterial vaginosis [facility] ONESIMO / TRICHOMONAS AMPLIF ICATIONon 10-27-2021 C. glabrata RNA WILLIAM+probe Ql (Vag fld) Negative Negative for Onesimo glabrata [facility] Onesimo albicans, C. dubliniensis, C. parapsilosis, and C. tropicalis RNA WILLIAM+probe Ql (Vag fld) Negative Negative for Onesimo species [facility] T. vaginalis DNA WILLIAM+probe Ql (Unsp spec) Negative Negative for Trichomonas vaginalis by amplification [facility] UA DIP, URINE (POC)on 2021 BILIRUBIN UA (POCT) Negative Negative [facility] CLARITY UA (POCT) Clear [facility] COLOR UA (POCT) Dark yellow [facility] GLUCOSE UA (POCT) Negative Negative mg/dL [facility] HEMOGLOBIN/BLOOD UA (POCT) Negative Negative [facility] KETONE UA (POCT) Negative Negative mg/dL [facility] LEUKOCYTES UA (POCT) Negative Negative [facility] NITRITE UA (POCT) Negative Negative [facility] PH UA (POCT) 6.0 4.5 - 8.0 [facility] Protein Ql (U) Negative Negative mg/dL [facility] SPECIFIC GRAVITY UA (POCT) >=1.030 1.005 - 1.030 [facility] UROBILINOGEN UA (POCT) 0.2 E.U./dL Normal E.U./ dL [facility] Culture, urineon 07-27-2021 Bacteria identified Cx Nom (U) Mixed Gram Pos & Gram Neg Org [facility] Work Phone: Absolute lymphocyte counton 07-26-2021 Lymphocytes Auto (Unsp spec) [#/Vol] 2.58 10*3/uL 0.83-4.[address] [facility] Work Phone: Basophil percentageon 2021 Basophils/100 WBC (Bld) 0.7 % 0-1 [facility] Work Phone: Eosinophils/100 WBC (Bld) 2.2 % 0-[address] [facility] Work Phone: Neutrophils (Bld) [#/Vol] 4.6 10*3/uL 2.0-7.[address] [facility] Work Phone: Neutrophils/100 WBC (Bld) 57.1 % 47-[address] [facility] Work Phone: WBC (Bld) [#/Vol] 8.0 10*3/uL 4.4-11.0 [facility] Work Phone: Blood erythrocytes count (nu mber/volume)on 07-26-2021 RBC (Bld) [#/Vol] 5.03 10*6/uL 4.2-5.4 [facility] Work Phone: Blood hemoglobin measurement (mass/volume)on 07-26-2021 Hemoglobin (Bld) [Mass/Vol] 16.1 g/dL 12.0-15.[address] [facility] Work Phone: Blood lymphocytes/100 leukoc yteson 07-26-2021 Lymphocytes/100 WBC (Bld) 32.1 % 19-[address] [facility] Work Phone: Blood monocytes/100 leukocyt eson 07-26-2021 Monocytes/100 WBC (Bld) 7.7 % 0-10 [facility] Work Phone: Blood platelet mean volumeon 07-26-2021 Platelet mean volume (Bld) [Entitic vol] 12.3 fL 6.2-12.[address] [facility] Work Phone: Determination of erythrocyte mean corpuscular volume (MCV)on 07-26-2021 MCV (RBC) [Entitic vol] 94.0 fL 81-99 [facility] Work Phone: Hematocrit Auto (Bld) [Volum e fraction]on 07-26-2021 Hematocrit (Bld) [Volume fraction] 47.3 % 37-[address] [facility] Work Phone: [phone] Laboratory - Hematology and Cell countson 07-26-2021 Erythrocyte distribution width (RBC) [Entitic vol] 48.4 fL 35.1-43.[address] [facility] Work Phone: Erythrocyte distribution width (RBC) [Ratio] 14.0 % 11.6-14.[address] [facility] Work Phone: Immature granulocytes/100 WBC (Bld) 0.200 % 0.0-0.[address] [facility] Work Phone: [phone] Comment on above: IG% - Immature Granu locytes (promyelocytes, myelocytes and metamyelocytes) > 1% indicates that a LEFT SHIFT is Present. MCH (RBC) [Entitic mass] 32.0 pg 27.0-32.[address] [facility] Work Phone: Nucleated RBC/100 WBC (Bld) [Ratio] 0 % 0-[address] [facility] Work Phone: MCHC Auto (RBC) [Mass/Vol]on 07-26-2021 MCHC (RBC) [Mass/Vol] 34.0 g/dL 32-36 [facility] Work Phone: Platelets bldon 07-26-2021 Platelets (Bld) [#/Vol] 235 10*3/uL 150-[address] [facility] Work Phone: Absolute lymphocyte counton 06-06-2021 Lymphocytes Auto (Unsp spec) [#/Vol] 0.76 10*3/uL 0.83-4.[address] [facility] Work Phone: Basophil percentageon 2021 Basophils/100 WBC (Bld) 0.2 % 0-1 [facility] Work Phone: Bilirubin [Mass/Vol] 0.40 mg/dL 0.20-1.00 [facility] Work Phone: Comment on above: For patients on eltr ombopag therapy, use of [employer] TBIL is not recommended. Chloride [Moles/Vol] 106 mmol/L 98-107 [facility] Work Phone: Eosinophils/100 WBC (Bld) 0.0 % 0-[address] [facility] Work Phone: Glucose [Mass/Vol] 107 mg/dL 74-106 [facility] Work Phone: Comment on above: Fasting Glucose resu lt from 100 to 125 mg/dL suggests IMPAIRED HOMEOSTASIS per A.D.A. criteria. Neutrophils (Bld) [#/Vol] 5.3 10*3/uL 2.0-7.[address] [facility] Work Phone: Neutrophils/100 WBC (Bld) 85.0 % 47-[address] [facility] Work Phone: Potassium [Moles/Vol] 4.2 mmol/L 3.5-5.1 [facility] Work Phone: Protein [Mass/Vol] 7.6 g/dL 6.4-8.2 [facility] Work Phone: Sodium [Moles/Vol] 140 mmol/L 136-145 [facility] Work Phone: WBC (Bld) [#/Vol] 6.2 10*3/uL 4.4-11.0 [facility] Work Phone: Blood erythrocytes count (nu mber/volume)on 06-06-2021 RBC (Bld) [#/Vol] 4.51 10*6/uL 4.2-5.4 [facility] Work Phone: Blood hemoglobin measurement (mass/volume)on 06-06-2021 Hemoglobin (Bld) [Mass/Vol] 14.0 g/dL 12.0-15.[address] [facility] Work Phone: Blood lymphocytes/100 leukoc yteson 06-06-2021 Lymphocytes/100 WBC (Bld) 12.2 % 19-[address] [facility] Work Phone: Blood monocytes/100 leukocyt eson 06-06-2021 Monocytes/100 WBC (Bld) 2.4 % 0-10 [facility] Work Phone: [phone] Blood platelet mean volumeon 06-06-2021 Platelet mean volume (Bld) [Entitic vol] 11.5 fL 6.2-12.[address] [facility] Work Phone: [phone] Determination of erythrocyte mean corpuscular volume (MCV)on 06-06-2021 MCV (RBC) [Entitic vol] 93.6 fL 81-99 [facility] Work Phone: Hematocrit Auto (Bld) [Volum e fraction]on 06-06-2021 Hematocrit (Bld) [Volume fraction] 42.2 % 37-[address] [facility] Work Phone: [phone] Laboratory - Chemistry and C hemistry - challengeon 06-06-2021 ALP [Catalytic activity/Vol] 123 U/L 45-[address] [facility] Work Phone: ALT [Catalytic activity/Vol] 21 U/L 13-[address] [facility] Work Phone: CO2 [Moles/Vol] 29.0 mmol/L 21.0-32.[address] [facility] Work Phone: [phone] Globulin (S) [Mass/Vol] 3.9 g/dL 2.2-4.2 [facility] Work Phone: [phone] Urea nitrogen/Creatinine [Mass ratio] 18.4 mg/mg 10-[address] [facility] Work Phone: Laboratory - Hematology and Cell countson 06-06-2021 Erythrocyte distribution width (RBC) [Entitic vol] 49.0 fL 35.1-43.[address] [facility] Work Phone: [phone] Erythrocyte distribution width (RBC) [Ratio] 14.3 % 11.6-14.[address] [facility] Work Phone: [phone] Immature granulocytes/100 WBC (Bld) 0.200 % 0.0-0.[address] [facility] Work Phone: [phone] Comment on above: IG% - Immature Granu locytes (promyelocytes, myelocytes and metamyelocytes) > 1% indicates that a LEFT SHIFT is Present. MCH (RBC) [Entitic mass] 31.0 pg 27.0-32.[address] [facility] Work Phone: Nucleated RBC/100 WBC (Bld) [Ratio] 0 % 0-[address] [facility] Work Phone: MCHC Auto (RBC) [Mass/Vol]on 06-06-2021 MCHC (RBC) [Mass/Vol] 33.2 g/dL 32-36 [facility] Work Phone: No Panel Informationon 06-06 Estimated GFR (MDRD) Amer 166 mL/min >[address] [facility] Work Phone: Comment on above: GFR Calc Estimated GFR (MDRD) Non-Af Amer 137 mL/min >[address] [facility] Work Phone: Comment on above: Non- GFR Calc Thyroid Stimulating Hormone (TSH) 0.68 uIU/mL 0.358-3.[address] [facility] Work Phone: Vitamin D 25-Hydroxy 47.8 ng/mL [facility] Work Phone: Comment on above: Vitamin D 25(OH) Sta tus Range Deficiency <20 ng/mL (50nmol/L) Insufficiency 20 - 30 ng/mL (50 - 75 nmol/L) Sufficiency 30 - 100 ng/mL (75 - 250 nmol/L) Toxicity >100 ng/mL (>250 nmol/L) Platelets bldon 06-06-2021 Platelets (Bld) [#/Vol] 326 10*3/uL 150-[address] [facility] Work Phone: Serum or plasma albumin kamilah urement (mass/volume)on 06-06-2021 Albumin [Mass/Vol] 3.7 g/dL 3.2-5.0 [facility] Work Phone: Serum or plasma albumin/glob ulin mass ratioon 06-06-2021 Albumin/Globulin [Mass ratio] 0.9 {ratio} 0.9-2.[address] [facility] Work Phone: Serum or plasma calcium kamilah urement (mass/volume)on 06-06-2021 Calcium [Mass/Vol] 9.1 mg/dL 8.5-10.1 [facility] Work Phone: Serum or plasma creatinine m easurement (mass/volume)on 06-06-2021 Creatinine [Mass/Vol] 0.49 mg/dL 0.55-1.02 [facility] Work Phone: Comment on above: The validity of the calculated GFR & GFRAA in patients over 70 years has not been determined. Clinical correlation is essential. Serum or plasma urea nitroge n measurement (mass/volume)on 06-06-2021 Urea nitrogen [Mass/Vol] 9 mg/dL 7-[address] [facility] Work Phone: Thin prep Papanicolaou smear with manual screeningon 06-06-2021 Thin prep Papanicolaou smear with manual screening 19 U/L 15-[address] [facility] Work Phone: Thin prep Papanicolaou smear with manual screening 5 5-[address] [facility] Work Phone: CNTHERAPYon 01-12-2018 CNTHERAPY OT/PT/Speech Visit (SPEMDR) TONYA CUELLO ([id number]) 1960 Tanya Romero Time Provider [id number]/5/18 10:30 AM SPEECH [facility] SPEMDREncounter Number: [id number] Time Provider Department [id number]/12/2018 10:30 AM [id number] [facility]: Speech Instrumental Swallow Eval [3660] Speech Discharge [3988]Primary Visit Diagnosis:Oral phase dysphagia [R13.11]Allergies As of [...] 1.4 % MUCOSAL AEROSOL * Use 1 [employer] as instructed as * Patient not taking: Reported on 12/20/2017 * DESITIN 40 % TOPICAL OINTMENT Apply to buttocks twice daily * COMPOUNDED PRESCRIPTION Light talker Coreyran [facility] P* * WHEELCHAIR CUSHION MISC Use daily for prevention of d* * MILK OF MAGNESIA 400 MG/5 ML * as neededProgress Notes:Elizabeth Iniguez [facility]-BUSINESS RESILIENCY MANAGER 01/12/2018 4:34 PM SignedEpisode Visit Count: Visit count could not be calculated. 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:-Diet-S wallowing Precautions- continue Speech Therapy recommendations within [facility] Goals for Modified Barium Swallow: created for [...] Level: Required Assistance (aregivers assist/ lives in [facility] )Assistance Required With: Swallowing Precautions;Other: See Comment (- all ADLtasks)Assistance Available: 24 Hour (- lives in [facility]cf )OBJECTIVE: MEASURES WITH LEVEL OF FUNCTION:Instrumental Swallow Assessment Type: Modified Barium Swallow StudyModified Barium Swallow Views: Lateral positionMBS Consistencies Tested: Thin Barium Liquids;Pudding Thick BariumLiquids;[place] Thick Barium Liquids;Soft Solid With Barium Paste;Puree WithBarium Paste;Solid With Barium PasteOral Phase:Lip Closure: Profuse escape through open lips (- anterior protrusion of tonguebeyond lips )Profuse Escape Through Open Lips With: Thin Liquids;[place] ThickenedLiquids;Puree; Soft Solid;SolidTongue Control During Bolus Hold: [...] n DemonstrationTREATMENT: Performed Modified Barium Swallowing Study (64387).Evaluation: Modified Barium Swallow Evaluation (54316)Swallow / Dysphagia (73387): Skilled Intervention: -Provided video review;writtenAND verbal education [...] understanding ofeducation provided this date.Billing:Modified Barium Swallow (08354) and Dysphagia Treatment (02995)Total time: 30 minutesElizabeth Iniguez CCC-BUSINESS RESILIENCY MANAGER Idania Hendricks [facility] PROGRESSon 01-12-2018 Protein mass conc HNO ID: [id number]: 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 Make sure youare using a visit which is associated with an episode.Start of Care Date: 01/12/18Onset Date: 12/08/17Patient Identified by Name and Date of : [facility] REHABILITATION AND SPORTS THERAPYMODIFIED BARIUM SWALLOWPLAN OF [...] degrees for all PO;-Small Bite/Sip;-Supervision/A ssistance for meals.BUSINESS RESILIENCY MANAGER Recommendations:-Diet-S wallowing Precautions- continue Speech Therapy recommendations within [facility]cf Goals for Modified Barium Swallow: created for [...] aspiration; texture tolerance levels . Patient residesin chcf with Caregivers assisting with all ADL tasks. Caregiverreports no previous PNA or recent change in medical status. Caregivernote Pt coughs sometimes, but that is nothing newPatient Goals: eat/drink without restrictionsPrior Functional Level: Required Assistance (aregivers assist/ lives ingroup home )Assistance Required With: Swallowing Precautions;Other: See Comment (- allADL tasks)Assistance Available: 24 Hour (- lives in chcf )OBJECTIVE: MEASURES WITH LEVEL OF FUNCTION:Instrumental Swallow Assessment Type: Modified Barium Swallow StudyModified Barium Swallow Views: Lateral positionMBS Consistencies Tested: Thin Barium Liquids;Pudding Thick BariumLiquids;[place] Thick Barium Liquids;Soft Solid With Barium Paste;PureeWith Barium Paste;Solid With Barium PasteOral Phase:Lip Closure: Profuse escape through open lips (- anterior protrusion oftongue beyond lips )Profuse Escape Through Open Lips With: Thin Liquids;[place] ThickenedLiquids;Puree; Soft Solid;SolidTongue Control During Bolus Hold: [...] n DemonstrationTREATMENT: Performed Modified Barium Swallowing Study (48609).Evaluation: Modified Barium Swallow Evaluation (18195)Swallow / Dysphagia (73177): Skilled Intervention: -Provided videoreview; writtenAND verbal education [...] understanding ofeducation provided this date.Billing:Modified Barium Swallow (92506) and Dysphagia Treatment (73988)Total time: 30 minutesElizabeth Iniguez CCC-BUSINESS RESILIENCY MANAGER [facility] XR MOD BARIUM SWALLOW W CHAPIS [...] Kerma: 18.0 mGyDose Area Product (DAP): 3450.0 mGy*teZ5Ciruhw time: 3:23 min:secRESULT: See speech pathology notes.IMPRESSION: See speech pathology notes.Linux Consultant: ALEXIS Transcribe Date/Time: Jan 12 2018 11:31ADictated by : LISY ALONSO MDThiorlando examination was interpreted and the report reviewed and electronically signed by: LISY ALONSO MD on Jan 12 2018 1:06PM [id number] Normal [facility] BMPon 11-07-2016 Anion gap 8 mmol/L Normal 5-16 [facility] [place] Comment on above: Order Comment: Campu s: M Performed By: #### L 500.56972, L500.73889 ####[facility] [id number] [place], [place] [address]Ff# [phone] BUN/Creatinine Ratio 14 mg/mg Low 15-24 [facility] Comment [facility]: Order Comment: Campu s: M Performed By: #### L 500.90839, L500.39315 ####[facility] [id number] [place], [place] [address]Il# [phone] Calcium 8.9 mg/dL Normal [facility].5-10.1 [facility] Comment [facility]: Order Comment: Campu s: M Performed By: #### L 500.11203, L500.64379 ####[facility] [id number] [place], [place] [address]Yv# [phone] Chloride 103 mmol/L Normal 98-107 [facility] [place] Comment on above: Order Comment: Campu s: M Performed By: #### L 500.76980, L500.78700 ####[facility] [id number] [place], [place] [address]Ss# [phone] CO2 30 mmol/L Normal 21-32 [facility] [place] Comment on above: Order Comment: Campu s: M Performed By: #### L 500.60587, L500.64932 ####[facility] [id number] [place], [place] [address]Ek# [phone] Creatinine 0.487 mg/dL Low 0.510-0.950 [facility] [place] Comment on above: Order Comment: Campu s: M Result Comment: Ariana ents receiving either N-Acetylcysteine (NAC) orMetamizole prior to venipuncture, may have falsely depressedresults. Performed By: #### L 500.79672, L500.11708 ####[facility] [id number] [place], [place] [address]Rn# [phone] Glucose mass conc 84 mg/dL Normal 70-100 [facility] [place] Comment on above: Order Comment: Campu s: M Result Comment: 70-1 00-Normal Fasting; [phone] Fasting; greaterthan 126 on more than one result-Diabetes. ADA guidelines Performed By: #### L 500.62049, L500.45973 ####[facility] [id number] [place], [place] [address]Li# [phone] Potassium molar conc 4.4 mmol/L Normal 3.5-5.1 [facility] [place] Comment on above: Order Comment: Campu s: M Performed By: #### L 500.60466, L500.96057 ####[facility] [id number] [place], [place] [address]Dz# [phone] Sodium 140 mmol/L Normal 136-145 [facility] [place] Comment on above: Order Comment: Campu s: M Performed By: #### L 500.46302, L500.27884 ####[facility] [id number] [place], [place] [address]Ch# [phone] Urea nitrogen 7 mg/dL Normal 7-26 [facility] [place] Comment on above: Order Comment: Campu s: M Performed By: #### L 500.54821, L500.25754 ####[facility] [id number] [place], [place] [address]Cm# [phone] GFR ESTon 11-07-2016 IF AMER Greater than 60 Normal [facility] [place] Comment on above: Order Comment: Shashiu s: M Performed By: #### L 500.17639, L500.14393 ####[facility] [id number] [place], [place] [address]Ym# [phone] IF non-AFR AMER Greater than 60 Normal [facility] [place] Comment on above: Order Comment: Shashiu s: M Performed By: #### L 500.88485, L500.38543 ####[facility] [id number] [place], [place] [address]Xl# [phone] ORon 11-07-2016 OPERATIVE REPORT This is a preliminar y report only, as the practitioner review and authentication has not occurred. Normal [facility] [place] DATE OF SERVICE: 11/07/2016PREOPERATIVE DIAGNOSES:1. Periodontitis.2. Failing amalgam restorations.POSTOPERAT CHRIS DIAGNOSES:1. Periodontitis.2. Failing amalgam restorations.OPERATION: 1. Thorough cleansing of oral cavity with chlorhexidine rinse.2. Full mouth dental and periodontal charting.3. Four-bite wing dental radiographs.4. Prophy.5. Amalgam restorations on 2, 3, 14, and 29.SURGEON: Yang Abrams DMD.TAPE FOLDING MACHINE OPERATOR: [facility] OR staff.ANESTHESIA: General anesthesia via nasotracheal intubation.PREOPERATIVE [...] tothe postanesthesia care unit in satisfactory condition. [facility] PATIENT NAME: [facility] FLETCHER L13[address] [facility] REC #: [id number], [place] [id number] DATE:DISCHARGE DATE:OPERATIVE REPORT ATTENDING PHY: Yang Abrams [...] am willing to send the patient to [facility] for implant placement, but itwould be an [...] patient and itis not a necessity. JM Feldman/[id number]: 11/07/2016 09:18DT: 11/07/2016 09:39SSI File#: [id number] #: [id number] [facility] PATIENT NAME: TONYA FLETCHER L13[address] [facility] [address] Guzmán MEDICAL REC #: [id number], [place] [id number] DATE:DISCHARGE DATE:OPERATIVE REPORT ATTENDING PHY: Yang Abrams DMD Normal [facility] [place] No Panel Information Influenza Types A,B Direct FA (DENY) [facility] Work Phone: RSV Ag Immune stain Ql (Tiss ) Rapid RSV (DFA) RSV Antigen [facility] Work Phone: Vital Signs Date Time Vital Sign Value Performing Clinician Faci lity 09-07-2024 13:24-0400 Body temperature 97.7 [degF] Dr. Michelle Marroquin MD Work Phone: [facility] 09-07-2024 13:24-0400 Diastolic blood pressure 70 mm[Hg] Dr. Michelle Marroquin MD Work Phone: [facility] 09-07-2024 13:24-0400 Heart rate 92 /min Dr. Michelle Marroquin MD Work Phone: [facility] 09-07-2024 13:24-0400 Respiratory rate 17 /min Dr. Michelle Marroquin MD Work Phone: [facility] 09-07-2024 13:24-0400 SaO2% (BldA) [Mass fraction] 97 % Dr. Michelle Marroquin MD Work Phone: [facility] 09-07-2024 13:24-0400 Systolic blood pressure 113 mm[Hg] Dr. Michelle Marroquin MD Work Phone: [facility] 09-07-2024 07:00-0400 Body mass index (BMI) [Ratio] 27.6 kg/m2 Dr. Michelle Marroquin MD Work Phone: [facility] 09-07-2024 07:00-0400 Body weight 63.[address] Michelle Marroquin MD Work Phone: [facility] 09-06-2024 13:45-0400 Inhaled oxygen flow rate 2 L/min Dr. Michelle Marroquin MD Work Phone: [facility] 09-06-2024 12:01-0400 Body height 152.[address] Michelle Marroquin MD Work Phone: [facility] 09-05-2024 13:40-0400 Body temperature 97.6 [degF] Dr. Michelle Marroquin MD Work Phone: [facility] 09-05-2024 13:40-0400 Diastolic blood pressure 75 mm[Hg] Dr. Michelel Marroquin MD Work Phone: [facility] 09-05-2024 13:40-0400 Heart rate 79 /min Dr. Michelle Marroquin MD Work Phone: [facility] 09-05-2024 13:40-0400 Respiratory rate 20 /min Dr. Michelle Marroquin MD Work Phone: [facility] 09-05-2024 13:40-0400 SaO2% (BldA) [Mass fraction] 97 % Dr. Michelle Marroquin MD Work Phone: [facility] 09-05-2024 13:40-0400 Systolic blood pressure 119 mm[Hg] Dr. Michelle Marroquin MD Work Phone: [facility] 09-05-2024 07:29-0400 Body height 152.[address] Michelle Marroquin MD Work Phone: [facility] 08-26-2024 18:25-0400 Body temperature 96.8 [degF] Haja Coley MD Work Phone: [facility] 08-26-2024 18:25-0400 Diastolic blood pressure 78 mm[Hg] Haja Coley MD Work Phone: [facility] 08-26-2024 18:25-0400 Heart rate 82 /min Haja Coley MD Work Phone: [facility] 08-26-2024 18:25-0400 Respiratory rate 21 /min Haja Coley MD Work Phone: [facility] 08-26-2024 18:25-0400 SaO2% (BldA) [Mass fraction] 94 % Haja Coley MD Work Phone: [facility] 08-26-2024 18:25-0400 Systolic blood pressure 130 mm[Hg] Haja Coley MD Work Phone: [facility] 08-10-2024 14:49-0400 Diastolic blood pressure 80 mm[Hg] Dr. Michelle Marroquin MD Work Phone: [facility] 08-10-2024 14:49-0400 Heart rate 74 /min Dr. Michelle Marroquin MD Work Phone: [facility] 08-10-2024 14:49-0400 SaO2% (BldA) [Mass fraction] 93 % Dr. Michelle Marroquin MD Work Phone: [facility] 08-10-2024 14:49-0400 Systolic blood pressure 120 mm[Hg] Dr. Michelle Marroquin MD Work Phone: [facility] 08-10-2024 14:47-0400 Body height 152.[address] Michelle Marroquin MD Work Phone: [facility] 06-11-2024 13:09-0400 Body temperature 98.2 [degF] Dr. Michelle Marroquin MD Work Phone: [facility] 06-11-2024 13:09-0400 Diastolic blood pressure 56 mm[Hg] Dr. Michelle Marroquin MD Work Phone: [facility] 06-11-2024 13:09-0400 Heart rate 82 /min Dr. Michelle Marroquin MD Work Phone: [facility] 06-11-2024 13:09-0400 Respiratory rate 18 /min Dr. Michelle Marroquin MD Work Phone: [facility] 06-11-2024 13:09-0400 SaO2% (BldA) [Mass fraction] 96 % Dr. Michelle Marroquin MD Work Phone: [facility] 06-11-2024 13:09-0400 Systolic blood pressure 108 mm[Hg] Dr. Michelle Marroquin MD Work Phone: [facility] 05-18-2024 17:06-0400 Body temperature 98.2 [degF] Dr. Michelle Marroquin MD Work Phone: [facility] 05-18-2024 17:06-0400 Diastolic blood pressure 70 mm[Hg] Dr. Michelle Marroquin MD Work Phone: [facility] 05-18-2024 17:06-0400 Heart rate 76 /min Dr. Michelle Marroquin MD Work Phone: [facility] 05-18-2024 17:06-0400 Respiratory rate 14 /min Dr. Michelle Marroquin MD Work Phone: [facility] 05-18-2024 17:06-0400 Systolic blood pressure 110 mm[Hg] Dr. Michelle Marroquin MD Work Phone: [facility] 04-21-2024 13:58-0500 Body height 152.[address] Michelle Marroquin MD Work Phone: [facility] 04-21-2024 13:58-0500 Body temperature 98.4 [degF] Dr. Michelle Marroquin MD Work Phone: [facility] 04-21-2024 13:58-0500 Diastolic blood pressure 64 mm[Hg] Dr. Michelle Marroquin MD Work Phone: [facility] 04-21-2024 13:58-0500 Heart rate 92 /min Dr. Michelle Marroquin MD Work Phone: [facility] 04-21-2024 13:58-0500 Respiratory rate 18 /min Dr. Michelle Marroquin MD Work Phone: [facility] 04-21-2024 13:58-0500 SaO2% (BldA) [Mass fraction] 95 % Dr. Michelle Marroquin MD Work Phone: [facility] 04-21-2024 13:58-0500 Systolic blood pressure 110 mm[Hg] Dr. Michelle Marroquin MD Work Phone: [facility] 04-09-2024 20:32-0500 Body temperature 97.6 [degF] Dr. Michelle Marroquin MD Work Phone: [facility] 04-09-2024 20:32-0500 Heart rate 89 /min Dr. Michelle Marroquin MD Work Phone: [facility] 04-09-2024 20:32-0500 Respiratory rate 16 /min Dr. Michelle Marroquin MD Work Phone: [facility] 04-09-2024 20:32-0500 SaO2% (BldA) [Mass fraction] 95 % Dr. Michelle Marroquin MD Work Phone: [facility] 07-21-2023 09:34-0400 Body temperature 98.1 [degF] [facility] 07-21-2023 09:34-0400 Diastolic blood pressure 79 mm[Hg] [facility] 07-21-2023 09:34-0400 Heart rate 86 /min [facility] 07-21-2023 09:34-0400 Respiratory rate 17 /min [facility] 07-21-2023 09:34-0400 SaO2% (BldA) [Mass fraction] 95 % [facility] 07-21-2023 09:34-0400 Systolic blood pressure 132 mm[Hg] [facility] 07-21-2023 08:18-0400 Body height 152.4 cm [facility] 06-13-2023 08:36-0400 Body temperature 97.9 [degF] [facility] 06-13-2023 08:36-0400 Diastolic blood pressure 82 mm[Hg] [facility] 06-13-2023 08:36-0400 Heart rate 97 /min [facility] 06-13-2023 08:36-0400 Respiratory rate 16 /min [facility] 06-13-2023 08:36-0400 SaO2% (BldA) [Mass fraction] 98 % [facility] 06-13-2023 08:36-0400 Systolic blood pressure 129 mm[Hg] [facility] 06-13-2023 05:51-0400 Body height 152.4 cm [facility] 06-13-2023 05:51-0400 Body mass index (BMI) [Ratio] 28.8 kg/m2 [facility] 06-13-2023 05:51-0400 Body weight 67.1 kg [facility] 08-15-2022 18:20-0400 Diastolic blood pressure 74 mm[Hg] [facility] 08-15-2022 18:20-0400 Heart rate 102 /min [facility] 08-15-2022 18:20-0400 Respiratory rate 20 /min [facility] 08-15-2022 18:20-0400 SaO2% (BldA) [Mass fraction] 95 % [facility] 08-15-2022 18:20-0400 Systolic blood pressure 121 mm[Hg] [facility] 08-15-2022 16:38-0400 Body mass index (BMI) [Ratio] 24.7 kg/m2 [facility] 08-15-2022 16:38-0400 Body weight 57.3 kg [facility] 08-15-2022 16:21-0400 Body height 152.4 cm [facility] 08-15-2022 16:21-0400 Body temperature 97.2 [degF] [facility] 03-21-2022 18:59-0500 Diastolic blood pressure 70 mm[Hg] Dr. Rocky Barlow Work Phone: [facility] 03-21-2022 18:59-0500 Heart rate 97 /min Dr. Rocky Barlow Work Phone: [facility] 03-21-2022 18:59-0500 Respiratory rate 18 /min Dr. Rocky Barlow Work Phone: [facility] 03-21-2022 18:59-0500 SaO2% (BldA) [Mass fraction] 98 % Dr. Rocky Barlow Work Phone: 0(148)[phone] [place] [address] 03-21-2022 18:59-0500 Systolic blood pressure 130 mm[Hg] Dr. Rocky Barlow Work Phone: [facility] 03-21-2022 17:46-0500 Body temperature 98.3 [degF] Dr. Rocky Barlow Work Phone: [facility] 03-21-2022 17:42-0500 Body height 154.[address] Rocky Barlow Work Phone: [facility] 03-21-2022 17:42-0500 Body mass index (BMI) [Ratio] 24.5 kg/m2 Dr. Rocky Barlow Work Phone: [facility] 03-21-2022 17:42-0500 Body weight [address] Rocky Barlow Work Phone: [facility] 01-21-2022 14:13-0500 Body temperature 98.8 [degF] Dr. Rocky Barlow Work Phone: [facility] 01-21-2022 14:13-0500 Diastolic blood pressure 76 mm[Hg] Dr. Rocky Barlow Work Phone: [facility] 01-21-2022 14:13-0500 Heart rate 86 /min Dr. Rocky Barlow Work Phone: [facility] 01-21-2022 14:13-0500 Respiratory rate 14 /min Dr. Rocky Barlow Work Phone: [facility] 01-21-2022 14:13-0500 SaO2% (BldA) [Mass fraction] 98 % Dr. Rocky Barlow Work Phone: [facility] 01-21-2022 14:13-0500 Systolic blood pressure 128 mm[Hg] Dr. Rocky Barlow Work Phone: [facility] 01-03-2022 17:18-0400 Body temperature 98.2 [degF] Dr. Rocky Barlow Work Phone: 0(884)[phone] [place] [address] 01-03-2022 17:18-0400 Diastolic blood pressure 92 mm[Hg] Dr. Rocky Barlow Work Phone: 4(999)[phone] [place] [address] 01-03-2022 17:18-0400 Heart rate 94 /min Dr. Rocky Barlow Work Phone: 8(970)[phone] [place] [address] 01-03-2022 17:18-0400 Respiratory rate 20 /min Dr. Rocky Barlow Work Phone: [facility] 01-03-2022 17:18-0400 SaO2% (BldA) [Mass fraction] 95 % Dr. Rocky Barlow Work Phone: 7(427)[phone] [place] [address] 01-03-2022 17:18-0400 Systolic blood pressure 118 mm[Hg] Dr. Rocky Barlow Work Phone: [facility] 01-03-2022 14:19-0400 Inhaled oxygen flow rate 2 L/min Dr. Rocky Barlow Work Phone: [facility] 01-02-2022 21:40-0400 Body height 152.[address] Rocky Barlow Work Phone: [facility] Work Phone: 01-02-2022 21:40-0400 Body mass index (BMI) [Ratio] 23.2 kg/m2 Dr. Rocky Barlow Work Phone: [facility] 01-02-2022 21:40-0400 Body weight [address] Rocky Barlow Work Phone: [facility] 10-26-2021 07:33-0400 Body temperature 97.2 [degF] Lennox Bulmaro OPTICAL STORE MANAGER.[employer] Work Phone: [facility] 10-26-2021 07:33-0400 Diastolic blood pressure 80 mm[Hg] Lennox Bulmaro OPTICAL STORE MANAGER.[employer] Work Phone: [facility] 10-26-2021 07:33-0400 Heart rate 72 /min Lennox Bulmaro OPTICAL STORE MANAGER.[employer] Work Phone: [facility] 10-26-2021 07:33-0400 Respiratory rate 16 /min Lennox Bulmaro OPTICAL STORE MANAGER.[employer] Work Phone: [facility] 10-26-2021 07:33-0400 SaO2% (BldA) [Mass fraction] 98 % Lennox Bulmaro OPTICAL STORE MANAGER.[employer] Work Phone: [facility] 10-26-2021 07:33-0400 Systolic blood pressure 126 mm[Hg] Lennox Bulmaro OPTICAL STORE MANAGER.[employer] Work Phone: [facility] Encounters Encounter Date Encounter Type Care Provider Facility Start: 09-21-2024 End: 09-21-2024 Patient encounter procedure Brigitte Warner [facility] Work Phone: Start: 09-21-2024 End: 09-21-2024 ambulatory Brigitte Warner Facility:[facility] Start: 09-07-2024 Non-patient / Non-visit Dr. Jeni Ann DO [facility] Work Phone: Start: 09-06-2024 [facility] Start: 09-06-2024 Non-patient / Non-visit [facility]. [facility]i [facility] Work Phone: Start: 09-06-2024 End: 09-06-2024 ambulatory Michelle Marroquin Facility:[facility] Start: 09-06-2024 End: 09-06-2024 Non-patient / Non-visit Dr. Panfilo Reese MD -[facility] Work Phone: Start: 09-05-2024 ambulatory Michelle Ward ty:[facility] Start: 09-05-2024 End: 09-07-2024 Evaluation and management of inpatient Dr. Jeni Ann DO -[facility] Work Phone: Start: 08-26-2024 End: 08-26-2024 Office outpatient visit 15 minutes Haja Coley MD Work Phone: [facility] Comment on above: Nausea and vomiting, unspecified vomiting type (Primary Dx) Start: 08-26-2024 End: 08-26-2024 ambulatory ROCKY BARLOW Facility:[facility] Start: 08-10-2024 End: 08-10-2024 Patient encounter procedure Christ Aguirre [facility] Work Phone: Start: 08-10-2024 End: 08-10-[address] Michelle Marroquin MD Work Phone: [facility] Work Phone: Start: 06-11-2024 End: 06-11-[address] Michelle Marroquin MD -[facility] Work Phone: Start: 06-11-2024 End: 06-11-[address] Michelle Marroquin MD [facility] Start: 06-11-2024 End: 06-11-[address] Michelle Marroquin MD Work Phone: [facility] Work Phone: Start: 06-11-2024 End: 06-11-2024 ambulatory Michelle Marroquin Facility:[facility] Start: 05-18-2024 End: 05-18-2024 Patient encounter procedure Christ Aguirre PA -[facility] Work Phone: Start: 05-18-2024 End: 05-18-2024 ambulatory [facility] Start: 04-21-2024 End: 04-21-[address] Michelle Marroquin MD -[facility] Work Phone: Start: 04-21-2024 End: 04-21-2024 ambulatory [facility] Start: 04-21-2024 End: 04-21-2024 ambulatory Efewgrawnbe Olee Facility:[facility] Start: 04-09-2024 End: 04-09-2024 Emergency department patient visit Dr. Gregory Coleman MD -Emergency Department Work Phone: Start: 12-21-2023 End: 12-21-2023 Emergency department patient visit Maximiliano Patricemitzi Facility:[facility] Start: 12-12-2023 End: 12-12-2023 [facility] Start: 10-08-2023 End: 10-08-2023 [facility] Start: 10-08-2023 End: 10-08-2023 ambulatory [facility] Facility:[facility] Start: 09-23-2023 End: 09-23-2023 Emergency department patient visit Gregory Coleman Facility:[facility] Start: 07-31-[address] Michelle Marroquin MD Work Phone: [facility] Start: 07-21-2023 End: 07-21-2023 Emergency department patient visit [facility]-Emergency Department Work Phone: Start: 06-19-2023 End: 06-19-2023 ambulatory [facility] Work Phone: Start: 06-19-2023 End: 06-19-2023 Patient encounter procedure [facility]-Laboratory, Phy Office 3rd Flr Start: 06-13-2023 End: 06-13-2023 Emergency department patient visit [facility]-Emergency Department Work Phone: Start: 02-05-2023 End: 02-05-2023 ambulatory [facility] Work Phone: Start: 02-05-2023 End: 02-05-2023 [facility] Start: 01-01-2023 End: 01-01-2023 ambulatory [facility] Work Phone: Start: 01-01-2023 End: 01-01-2023 [facility] Work Phone: Start: 12-12-2022 End: 12-12-2022 [facility] Start: 12-11-2022 End: 12-11-2022 [facility] Start: 12-03-2022 End: 12-03-2022 ambulatory [facility] Work Phone: Start: 12-03-2022 End: 12-03-2022 [facility] Start: 08-15-2022 End: 08-15-2022 Emergency department patient visit [facility]-Emergency Department Work Phone: Start: 05-30-2022 End: 05-30-2022 ambulatory [facility] Work Phone: Start: 05-30-2022 End: 05-30-2022 [facility] Start: 03-29-2022 End: 03-29-[address] Rocky Barlow Work Phone: [facility] Work Phone: Start: 03-29-2022 End: 03-29-[address] Rocky Barlow Work Phone: [facility]-Pulmonary Services/Neurology Start: 03-21-2022 End: 03-21-2022 Emergency department patient visit Dr. Rocky Barlow Work Phone: [facility]-Emergency Department Start: 01-21-2022 End: 01-21-[address] Rocky Barlow Work Phone: [facility] Start: 01-03-2022 Non-patient / Non-visit Dr. Rocky Barlow Work Phone: [facility] Start: 01-02-2022 Non-patient / Non-visit Dr. Rocky Barlow Work Phone: [facility] Start: 01-02-2022 End: 01-03-2022 Evaluation and management of inpatient Dr. Rocky Barlow Work Phone: [facility]-Medical Surgical 3 Start: 01-02-2022 End: 01-03-[address] Rocky Barlow Work Phone: [facility] Work Phone: Start: 12-31-2021 End: 12-31-[address] Rocky Barlow Work Phone: [facility] Work Phone: Start: 12-31-2021 End: 12-31-[address] Rocky Barlow Work Phone: [facility]-Radiology, [facility] Start: 11-30-2021 End: 11-30-2021 ambulatory [facility] Work Phone: Start: 11-30-2021 End: 11-30-2021 Patient encounter procedure [facility]-Pulmonary Services/Neurology Start: 11-28-2021 End: 11-28-2021 ambulatory [facility] Work Phone: Start: 11-28-2021 End: 11-28-2021 Patient encounter procedure [facility]-Laboratory, Phy Office 3rd Flr Start: 10-27-2021 Telephone encounter Melba Campoverde APRN.CNP Work Phone: [facility] Comment on above: Results, Lab; Result s Results Start: 10-26-2021 End: 10-26-2021 Patient encounter procedure Kathya Eric OPTICAL STORE MANAGER.CNM Work Phone: OB/Gynecology Comment on above: Vaginal itching (Simona ahsan Dx); Vaginal burning; Vaginal odor; Vaginal discharge Start: 10-26-2021 End: 10-26-2021 Patient encounter procedure Lennox Chamberlain OPTICAL STORE MANAGER.HEAVY COIL WINDER Work Phone: [facility] Comment on above: Burning with urinati on (Primary Dx); Wheeze; Chronic cough Start: 07-27-2021 End: 07-27-2021 Patient encounter procedure [facility]-Laboratory, Specimen Start: 07-26-2021 End: 07-26-2021 Patient encounter procedure [facility]-Laboratory, Phy Office 3rd Flr Start: 07-09-2021 End: 07-09-2021 Patient encounter procedure [facility]-Radiology, [facility] Start: 06-06-2021 End: 06-06-2021 Patient encounter procedure [facility]Laboratory Start: 05-30-2021 End: 05-30-2021 Patient encounter procedure [facility], [facility] Start: 04-25-2021 End: 04-25-2021 [facility] Start: 01-12-2018 End: 01-12-2018 Patient encounter procedure [facility] Start: 12-09-2017 Patient encounter procedure [facility] Start: 11-07-2016 Evaluation and management of inpatient aYng Abrams Facility:[facility] Start: 10-29-2016 Ambulatory Yang Abrams Facility: [facility] Procedures Date Procedure Procedure Detail Performing Clinician [...] Start: 10-26-2021 BACTERIAL VAGINOSIS AMPLIFICATION Mohsen Eric OPTICAL STORE MANAGER.CNM Work Phone: Start: 10-26-2021 Iadna trichomonas vaginalis amplified probe tech Kathya Eric APRN.CNM Work Phone: Start: 10-26-2021 Urnls dip stick/tablet rgnt auto w/o microscopy Lennox Chamberlain APRN.HEAVY COIL WINDER Work Phone: Start: 07-27-2021 Urine culture Start: 07-09-2021 X-ray of both feet Start: 05-30-2021 X-ray of both feet Start: 04-25-2021 X-ray of chest posteroanterior view Start: 03-17-2019 H/O: surgery S/P deep brain stimulator placement Lennox Chamberlain APRN.HEAVY COIL WINDER Work Phone: Start: 10-28-2012 Lipid 1996 panel - Serum or Plasma Haja Coley MD Work Phone: Start: 09-03-2012 Mammography Lennox Chamberlain APRN.HEAVY COIL WINDER Work Phone: Influenza Types A,B Direct FA [...] Screening for malign ant neoplasm of colon [facility] Start: 09-07-2024 Patient discharge [facility] Start: 09-06-2024 Referral to occupati onal therapist [facility] Start: 09-06-2024 Referral to service [facility] Start: 09-05-2024 Application of intermittent pneumatic compression device [facility] Start: 09-05-2024 Following clinical p athway protocol [facility] Start: 09-05-2024 Ambulation without limitation [facility] Start: 09-05-2024 Assessment of risk o f venous thromboembolism [facility] Start: 09-05-2024 Catheterization of vein [facility] Start: 09-05-2024 Documentation procedure [facility] Start: 09-05-2024 Insertion of cathete r into peripheral vein [facility] Start: 09-05-2024 Measuring intake and output [facility] Start: 09-05-2024 Oxygen therapy [facility] Start: 09-05-2024 Providing care accor ding to standard [facility] Start: 09-05-2024 Referral to gastroenterology service [facility] Start: 09-05-2024 Referral to service [facility] Start: 09-05-2024 [facility] Start: 09-05-2024 Verification routine [facility] Start: 09-05-2024 Admission procedure [facility] Start: 09-05-2024 Hospital admission, emergency, from emergency room, medical nature [facility] Start: 09-05-2024 Partial thromboplast in time, activated [facility] Start: 09-05-2024 Prothrombin time [facility] Start: 09-05-2024 Patient referral to dietitian [facility] Start: 04-09-2024 [facility] Start: 03-10-2024 Medicare Advantage A nnual Wellness Visit Medicare Advantage Annual Wellness Visit [facility] Start: 11-09-2023 Covid-19 Vaccine ( season) Covid-19 Vaccine ( season) [facility] Start: 07-21-2023 [facility] Start: 06-13-2023 [facility] Start: 01-03-2022 Patient discharge [facility] Start: 01-02-2022 Following clinical p athway protocol [facility] Start: 01-02-2022 Assessment of risk o f venous thromboembolism [facility] Start: 01-02-2022 Inhalation therapy procedure [facility] Start: 01-02-2022 Insertion of cathete r into peripheral vein [facility] Start: 01-02-2022 Oxygen therapy [facility] Start: 01-02-2022 Providing care accor ding to standard [facility] Start: 01-02-2022 Provision of activit y privileges [facility] Start: 01-02-2022 Referral to occupati onal therapist [facility] Start: 01-02-2022 Referral to service [facility] Start: 01-02-2022 Respiratory secretio n precautions [facility] Start: 01-02-2022 [facility] Start: 01-02-2022 Admission procedure [facility] Start: 11-08-2021 Influenza vaccination INFLUENZA (#1) [facility] Start: 03-12-2021 COVID-19 VACCINE (2 - Moderna series) COVID-19 VACCINE (2 - Moderna series) [facility] Start: 09-13-2019 PAP TESTING PAP TESTING [facility] Start: 10-28-2017 Lipid panel Lipid Screening [facility] Start: 10-28-2017 LIPID SCREEN LIPID SCREEN [facility] Start: 09-12-2017 Screening for malign ant neoplasm of cervix Cervical Cancer Screening [facility] Start: 09-03-2013 Mammography MAMMOGRAM [facility] Start: 09-03-2013 Screening for malign ant neoplasm of breast Mammogram Screening [facility] Start: 01-23-2013 DIABETES SCREEN DIABETES SCREEN [facility] Start: 01-23-2013 Diabetes Screening Diabetes Screenin g [facility] Start: 07-05-2011 Pneumococcal Vaccine : 50+ (1 of 1 - PCV) Pneumococcal Vaccine: 50+ (1 of 1 - PCV) [facility] Start: 07-05-2011 SHINGRIX VACCINE (1 of 2) GRAY GRIX VACCINE (1 of 2) [facility] Start: 2006 COLOGUARD (FIT-DNA) COLOGUARD (FIT-D NA) [facility] Start: 2006 Colonoscopy COLONOSCOPY [facility] Start: 2006 COLORECTAL CANCER SCREENING COLORECTAL CANCER SCREENING [facility] Start: [address] COLONOGRAPHY [facility] Start: 2006 FECAL OCCULT BLOOD FECAL OCCULT BLOO D [facility] Start: 2006 Screening for malign ant neoplasm of colon [facility] Start: 2006 SIGMOIDOSCOPY SIGMOIDOSCOPY [facility] Start: 12-10-1995 Urine microalbumin profile [facility] Start: 07-05-1991 HPV TESTING HPV TESTING [facility] Start: 07-05-1979 ANNUAL PCP TEAM CLINICAL BUSINESS MANAGER TRESSA DISEASE VISIT ANNUAL PCP TEAM CHRONIC DISEASE VISIT [facility] Start: 07-05-1979 Anxiety Screening Anxiety Screening [facility] Start: 07-05-1979 HEPATITIS C SCREENING HEPATITIS C [facility] Start: 07-05-1979 Hepatitis C screening Hepatitis C [facility] Start: 07-05-1979 HIV SCREENING HIV SCREENING [facility] Start: 07-05-1979 HIV screening HIV Screening [facility] Bacteria identified in Urine by Culture URINE CULTURE Microbiology Routine Burning with urination Ordered: 10/26/[address] [facility] Work Phone: Comment on above: Ordered: 10/26/2021 CBC W Auto Different ial panel - Blood [facility] Influenza virus A an d B RNA and SARS-CoV-2 (COVID-19) N gene panel - Respiratory specimen by WILLIAM with probe detection COVID WITH FLUA+B, ROUTINE Microbiology Routine Wheeze Chronic cough Ordered: 10/26/[address] [facility] Work Phone: Comment on above: Ordered: 10/26/2021 INR in Blood by Coagulation assay [facility] Patient Education [facility] Work Phone: Patient referral [facility] Work Phone: XR Chest PA and Lateral [facility] Immunizations Immunization Date Immunization Notes Care Provider Fa alexandr 12-12-2023 influenza, injectabl e, madin suraj canine kidney, preservative free Dr. Michelle Marroquin MD Work Phone: [facility] 11-27-2021 Influenza, high dose seasonal Dr. Michelle Marroquin MD Work Phone: [facility] 11-27-2021 influenza, high dose seasonal, preservative-free Dr. Rocky Barlow Work Phone: [facility] 03-10-2021 Covid (Moderna) Dr. Rocky Barlow Work Phone: [facility] 02-12-2021 Covid (Moderna) Dr. Rocky Barlow Work Phone: [facility] 12-27-2016 Influenza virus vaccine W [facility] 10-16-2010 tuberculin skin test ; purified protein derivative solution, intradermal Haja Coley MD Work Phone: [facility] 01-16-2010 influenza virus vaccine, unspecified formulation Lennox Chamberlain APRN.HEAVY COIL WINDER Work Phone: [facility] Work Phone: 03-29-2009 novel [id number], all formulations Lennox Chamberlain OPTICAL STORE MANAGER.HEAVY COIL WINDER Work Phone: [facility] Work Phone: 12-29-2008 influenza virus vaccine, unspecified formulation Lennox Chamberlain OPTICAL STORE MANAGER.HEAVY COIL WINDER Work Phone: [facility] Work Phone: 01-14-2008 influenza virus vaccine, unspecified formulation Lennox Chamberlain OPTICAL STORE MANAGER.HEAVY COIL WINDER Work Phone: [facility] Work Phone: 01-13-2007 influenza virus vaccine, unspecified formulation Lennox Chamberlain OPTICAL STORE MANAGER.HEAVY COIL WINDER Work Phone: [facility] Work Phone: 01-08-2003 influenza virus vaccine, whole virus Lennox Chamberlain APRN.HEAVY COIL WINDER Work Phone: [facility] Work Phone: 12-09-1995 tetanus and diphther ia toxoids, adsorbed, preservative free, for adult use (2 Lf of tetanus toxoid and 2 Lf of diphtheria toxoid) Lennox Chamberlain APRN.HEAVY COIL WINDER Work Phone: [facility] Work Phone: Payers Date Payer Category Payer Medicare (Managed Care) [facility]R[employer]A MCCRCAKEN O [id number] 2023 Self-pay [id number] 2023 Unknown [id number] 2017 Medicaid [id number] 2017 Medicaid [id number] 1981 Medicare [id number] 1981 Medicare [id number] 1981 Medicare MEDICARE MEDICAR E A AND B [id number] 1981-Present [phone] [place] [address] Medicare [id number] Unknown [id number]. 462 Unknown [id number] [id number]. 462 Unknown [id number] 2.16840.1.026255.3.579.2. 462 Unknown [id number] 2.16840.1.856425.3.579.2. 462 Unknown [id number] 2.16.840.1.215232.3.579.2. 462 Unknown [id number] 2.16.840.1.629968.3.579.2. 462 Unknown [id number] 2.16.840.1.370665.3.579.2. 462 Unknown [id number] 2.16.840.1.459522.3.579.2. 462 Unknown [id number] 2.16.840.1.023686.3.579.2. 462 Unknown [id number] 2.16.840.1.572266.3.579.2. 462 Unknown [id number] 2.16.840.1.502903.3.579.2. 462 Unknown [id number] 2.16.840.1.799679.3.579.2. 462 Unknown [id number] 2.16.840.1.375659.3.579.2. 462 Unknown [id number] 2.16.840.1.597614.3.579.2. 462 Unknown [id number] 2.16.840.1.801614.3.579.2. 462 Unknown [id number] 2.16.840.1.245437.3.579.2. 462 Unknown [id number] 2.16.840.1.374542.3.579.2. 462 Unknown [id number] 2.16.840.1.372655.3.579.2. 462 Unknown [id number] 2.16.840.1.997135.3.579.2. 462 Social History Date Type Detail Facility Start: 02-05-2021 End: 07-21-2023 Tobacco smoking status NVIS Unknown if ever smoked [facility] Start: 01-08-2019 Non-smoker [facility] Start: 1960 Sex Assigned At Female W [facility] Start: 08-30-2010 End: 09-05-2024 Tobacco smoking status NVIS Never smoked tobacco [facility] Work Phone: Start: 08-30-2010 Tobacco use and exposure Smokeless tobacco non-user [facility] Work Phone: Start: 05-22-2020 Alcohol intake Current non-dr dish maker of alcohol (finding) [facility] Start: 1960 Sex Assigned At Not on file C [facility] Start: 10-16-2021 End: 10-26-2021 Exposure to SARS-CoV-2 (event) Not sure [facility] Work Phone: Start: 06-15-2024 Sex Female (finding) [facility] Start: 05-22-2020 End: 04-05-2022 History of Social function [facility] Start: 05-22-2020 End: 04-05-2022 Tobacco use panel [facility] Work Phone: National Score (1-100), lower number is lower risk 68 [facility] Medical Equipment Procedure Code Equipment Code Equipment Origin al Text Equipment Identifier Dates Lens Iol 0d +24 Manuel Uv Abs - [id number] Start: 03-22-2019 Lens Acrysof Ultrasert +24.5 Diopter Acrylic Iol 1 Piece Foldable Uv Blue - [id number] Start: 11-22-2019 Comment on above: Description: -1.05 Goals Date Patient Goal Desired Activity /State Functional Status Date Assessment Result Facility 09-07-2024 Functional status Activity Ability Bedres t [facility] Work Phone: 01-03-2022 Functional status Bedrest [facility] Work Phone: 09-30-2014 Are you deaf, or do you have serious difficulty hearing No 09/30/2014 9:29 AM Lakshmi Moreno RN No [facility] Work Phone: 09-30-2014 Are you blind, or do you have serious difficulty seeing, even when wearing glasses No 09/30/2014 9:29 AM Lakshmi Moreno RN No [facility] 09-30-2014 Do you have serious difficulty walking or climbing stairs Yes 09/30/2014 9:29 AM Lakshmi Moreno RN Yes [facility] 09-30-2014 Do you have difficul ty dressing or bathing Yes 09/30/2014 9:29 AM Lakshmi Moreno RN Yes [facility] 09-30-2014 Because of a physica l, mental, or emotional condition, do you have difficulty doing errands alone such as visiting a physician's office or shopping Yes 09/30/2014 9:29 AM Lakshmi Moreno RN Yes [facility] Mental Status Date Assessment Result Facility 09-07-2024 Cognitive function Voice/Name [facility] Work Phone: 09-07-2024 Cognitive function Appropriate;Cooperativ e [facility] Work Phone: 06-13-2023 Cognitive function Level Of Cons ciousness Awake [facility] Work Phone: 01-03-2022 Cognitive function Appropriate [facility] Work Phone: 09-12-2014 Because of a physica l, mental, or emotional condition, do you have serious difficulty concentrating, remembering, or making decisions No 09/12/2014 8:23 AM April Sanchez MA No [facility] Clinical Notes 10-26-2021 to 09-07-2024 Note Date & Type Note Facility 09-07-2024 Discharge summary Note Date/Time September 07, 2024 1:13pm [facility] Medical Records Department [address] [place] [address] Discharge Summary 09/07/24 1300 MR#: [id number] Acct: [id number] Name: TONYA FLETCHER Rep #:[id number] : 1960 64 From: Jeni Ann DO PCP: Dr. Michelle Marroquin MD Status:A DM IN Location: MS3 [id number] Providers Date of Admission: 09/05/24 Date of Discharge: 09/07/24 Primary Care Physician: Dr. Michelle Marroquin MD Consultations 09/05/24 14:12 Consult: Gastroenterology Routine Consulting Provider: [facility] Reason for Consult: GI bleed EMERGENT [...] mg/30 mL enema (Fleet Bisacodyl) 5 mg NH DAILY PRN constipation 07/31/23 bismuth subsalicylate 525 [...] baselineand presented to the emergency department at [facility] on 09/05/2024 with caregivers. Evidently, about [...] Bisacodyl 10 mg/30 mL enema 5 mg NH DAILY PRN (Reason: constipation) Rx Instructions: ON [...] Self Care Charges/Coding Visit Charges Inpatient E&M: 71413 Disch Hosp >30min 09/07/24 1313 <Electronically signed by Jeni Ann DO> Cosigner Signature (if applicable): CC: Dr. Michelle Marroquin MD; Dr. Jeni Ann DO; Stalin Kuhn DO~ Signed [facility] Work Phone: 1(937) 533-351007-01-2025 Consult note [facility] Medical Records Department [address] [place] [address] Counseling Note - Pharmacy 09/07/24 1434 MR#: [id number] Acct: [id number] Name: TONYA FLETCHER Rep #:[id number] : 1960 64 From: Peace Flores PCP: Dr. Michelle Marroquin MD Status:A DM IN Y [facility] [place] [facility] Rec Counseling Pharmacy Service has performed [...] mg/30 mL enema (Fleet Bisacodyl) 5 mg NH DAILY PRN constipation 07/31/23 bismuth subsalicylate 525 [...] Signature (if applicable): Date CC: ~ Signed [facility]07-01-2025 Hospital Discharge instructionsAdditional Instructions Date of Discharge: 09/07/24[facility] Work Phone: 1(442) 265-536507-01-2025 Discharge summary [facility] Medical Records Department [address] [place] [address] Discharge Summary 09/07/24 1300 MR#: [id number] Acct: [id number] Name: TONYA FLETCHER Rep #:[id number] : 1960 64 From: Jeni Ann DO PCP: Dr. Michelle Marroquin MD Status:A DM IN Location: MS3 [id number] Providers Date of Admission: 09/05/24 Date of Discharge: 09/07/24 Primary Care Physician: Dr. Michelle Marroquin MD Consultations 09/05/24 14:12 Consult: Gastroenterology Routine Consulting Provider: [facility] Reason for Consult: GI bleed EMERGENT [...] mg/30 mL enema (Fleet Bisacodyl) 5 mg NH DAILY PRN constipation 07/31/23 bismuth subsalicylate 525 [...] baselineand presented to the emergency department at [facility] on 09/05/2024 with caregivers. Evidently, about [...] Bisacodyl 10 mg/30 mL enema 5 mg NH DAILY PRN (Reason: constipation) Rx Instructions: ON [...] Self Care Charges/Coding Visit Charges Inpatient E&M: 87397 Disch Hosp >30min 09/07/24 1313 Cosigner Signature (if applicable): CC: Dr. Michelle Marroquin MD; Dr. Jeni Ann DO; Stalin Kuhn DO~ Signed [facility]07-01-2025 [facility] Medical Records Department [address] [place] [address] Discharge Summary 09/07/24 1300 MR#: [id number] Acct: [id number] Name: TONYA FLETCHER Rep #: [id number] : 1960 64 From: Jeni Ann DO PCP: Dr. Michelle Marroquin MD Status:ADM IN Location: [place] US214-4 Providers Date of Admission: 09/05/24 Date of Discharge: 09/07/24 Primary Care Physician: Dr. Michelle Marroquin MD Consultations 09/05/24 14:12 Consult: Gastroenterology Routine Consulting Provider: [facility] Reason for Consult: GI bleed EMERGENT [...] mg/30 mL enema (Fleet Bisacodyl) 5 mg NH DAILY PRN constipation 07/31/23 bismuth subsalicylate 525 [...] and presented to the emergency department at [facility] on 09/05/2024 with caregivers. Evidently, about [...] and then progressively nor (more content not included)...[facility]06-30-2025 Consult note Author Arlet Mcdonald [facility] Note Date/Time September 06, 2024 4:45 pm [facility] Medical Records Department [address] [place] [address] Anesthesia Postop Eval II 09/06/241644 MR#: [id number] Acct: [id number] Name: TONYA FLETCHER Rep #:[id number] : 1960 64 From: Arlet Mcdonald CRNA PCP: Dr. Michelle Marroquin MD Status:A DM IN Y Race: C Location: [place] MS306 -1 Anesthesia Postop Eval I Sum Postop Eval Completion status Anesthesia document: Postop Eval 1 completed: Yes Anesthesia Postop Eval I Summary Anesthesia Postop Eval I Summary: Anesthesia Postop Eval I: Assessment Summary Airway patent Yes 09/06/24 13:44 BRINE TANK SEPARATOR OPERATOR.TNES Spontaneous unlabored Yes 09/06/24 13:44 BRINE TANK SEPARATOR OPERATOR.TNES respirations Mental status nausea No 09/06/24 13:44 BRINE TANK SEPARATOR OPERATOR.TNES Vomiting No 09/06/24 13:44 BRINE TANK SEPARATOR OPERATOR.TNES Anesthesia Postop Eval I: Fluid Summary Crystalloid volume administer 400 09/06/24 13:44 BRINE TANK SEPARATOR OPERATOR.TNES (ml) Colloids volume administered ( ml) Blood Product volume administered (ml) Total IV fluid infused 400 09/06/24 13:44 BRINE TANK SEPARATOR OPERATOR.TNES Anesthesia Postop Eval I: Summary Notes Anesthesia Complication No 09/06/24 13:44 BRINE TANK SEPARATOR OPERATOR.TNES Anesthesia Complication Comment: Post-operative progress note Anesthesia: Postop Eval II Evaluation Mental status: Awake Pain Level: 1 nausea: No Vomiting: No 09/06/241644 <Electronically signed by Arlet Sirc a BRINE TANK SEPARATOR OPERATOR> Date _ Arlet Mcdonald BRINE TANK SEPARATOR OPERATOR Cosigner Signature: Date CC: ~ Signed [facility] Work Phone: 1(484) 184-457606-30-2025 Consult note [facility] Medical Records Department [address] [place] [address] Anesthesia Postop Eval II 09/06/24 1645 MR#: [id number] Acct: [id number] Name: TONYA FLETCHER Rep #:[id number] : 1960 64 From: Arlet Mcdonald CRNA PCP: Dr. Michelle Marroquin MD Status:A DM IN Y Race: C Location: [place] MS306 -1 Anesthesia Postop Eval I Sum Postop Eval Completion status Anesthesia document: Postop Eval 1 completed: Yes Anesthesia Postop Eval I Summary Anesthesia Postop Eval I Summary: Anesthesia Postop Eval I: Assessment Summary Airway patent Yes 09/06/24 13:44 BRINE TANK SEPARATOR OPERATOR.TNES Spontaneous unlabored Yes 09/06/24 13:44 BRINE TANK SEPARATOR OPERATOR.TNES respirations Mental status nausea No 09/06/24 13:44 BRINE TANK SEPARATOR OPERATOR.TNES Vomiting No 09/06/24 13:44 BRINE TANK SEPARATOR OPERATOR.TNES Anesthesia Postop Eval I: Fluid Summary Crystalloid volume administer 400 09/06/24 13:44 BRINE TANK SEPARATOR OPERATOR.TNES (ml) Colloids volume administered ( ml) Blood Product volume administered (ml) Total IV fluid infused 400 09/06/24 13:44 BRINE TANK SEPARATOR OPERATOR.TNES Anesthesia Postop Eval I: Summary Notes Anesthesia Complication No 09/06/24 13:44 BRINE TANK SEPARATOR OPERATOR.TNES Anesthesia Complication Comment: Post-operative progress note Anesthesia: Postop Eval II Evaluation Mental status: Awake Pain Level: 1 nausea: No Vomiting: No 09/06/24 1645 a BRINE TANK SEPARATOR OPERATOR> Date _ Arlet Loboigner Signature: Date CC: ~ Signed [facility]06-30-2025 Progress note Author Jeni Ann [facility] Note Date/Time September 06, 2024 1:[address] [facility] Medical Records Department [address] [place] [address] Progress Note - Hospitalist 09/06/24 0722 MR#: [id number] Acct: [id number] Name: TONYA FLETCHER Rep #:[id number] : 1960 64 From: Jeni Ann DO PCP: Dr. 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 Work Phone: 1(440) 550-256106-30-2025 Consult note Author Brian Su [facility] Note Date/Time September 06, 2024 1:45 pm [facility] Medical Records Department [address] [place] [address] Anesthesia Postop Eval I 09/06/24 1344 MR#: [id number] Acct: [id number] Name: TONYA FLETCHER Rep #:[id number] : 1960 64 From: Brian VAUGHAN PCP: Dr. Michelle Marroquin MD Status:A DM IN Y Race: C Location: [place] [address] -1 Anesthesia: Postop Eval I Current Vital [...] CRNA Cosigner Signature: Date CC: ~ Signed [facility] Work Phone: 1(242) 224-840206-30-2025 Consult note Author Grey Roberts [facility] Note Date/Time September 06, 2024 1:04 pm [facility] Medical Records Department [address] [place] [address] [place] [address] Pre-Anesthesia Evaluation 09/06/24 1253 MR#: [id number] Acct: [id number] Name: TONYA FLETCHER Rep #:[id number] : 1960 64 From: Grey Roberts MD PCP: Dr. Michelle Marroquin MD Status:A DM IN Y Race: C Location: [place] [address] ASA Classification* ASA Classification ASA Classification: 3 [...] injection therapy. 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 Female HX of Motion Sickness HX of N/V After Surgery Non-Smoker Duration of Surgery greater than 60 minutes Number of Risk Factors PONV Score Height & Weight Height & Weight: Anesthesia: Height & Weight Height 5 ft 09/06/24 12:01 Weight: 61.28 kg 09/06/24 12:01 Body Mass Index (BMI) 26.4 09/06/24 11:42 Respiratory Assessment Respiratory Assessment - 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: Respiratory Tract Infection Hx - 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 Hx Respiratory Tract Infection No 09/05/24 20:03 STOP Sleep Apnea STOP Sleep Apnea - 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: STOP Sleep Apnea - 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 Hx Hypertension Yes 09/06/24 10:19 Hx Sleep [...] Tobacco Use History 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 Tobacco Use Smoking Status Never smoker 09/05/24 15:39 Hx Tobacco Use No 09/05/24 15:39 Years Smoking Packs Smoked per Day Smoking Cessation Date was within the last 15 years Hx Smoking Cessation Date Hx Smoking Cessation Counseling Hematologic Medial History Hematologic Hx - 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: Hematologic Medical Hx - 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 under Hx of Blood Transfusion No 09/05/24 15:39 [...] confused, unrespo /Reproduction History /Reproductive History - 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: /Reproductive Hx- 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 Hx Now Gestational Age (in weeks): EDC: [...] Ophth Drops EACH EYE Not Given TID [facility] Ascorbic Acid 500 mg 09/06/24 08:00 Ascorbic Acid 500 Mg Tablet PO DAILY@0800 [facility] Cholecalciferol 25 mcg 09/06/24 08:00 Cholecalciferol (Vit D3) 25 Mcg Tablet (1,000 Units) PO DAILY@0800 [facility] Citalopram Hydrobromide 10 mg 09/06/24 10:00 Citalopram 10 Mg Tablet PO DAILY [facility] Citalopram Hydrobromide 20 mg 09/06/24 10:00 Citalopram 20 Mg Tablet PO DAILY [facility] Docusate Sodium 100 mg 09/06/24 10:00 Docusate Sodium 100 Mg Capsule PO QODAY [facility] Ferrous Gluconate 324 mg 09/06/24 08:00 Ferrous Gluconate 324 Mg Tablet PO DAILY@0800 [facility] Pantoprazole Sodium 40 mg/ 100 mls @ 300 mls/hr 09/05/24 22:00 09/06/24 11:25 Sodium Chloride IV Infused Q12 [facility] Infusion Sodium Chloride 250 mls @ 15 mls/hr 09/05/24 14:27 09/06/24 11:40 IV 0 mls/hr .[id number] PRN Infusion Saline Flush Sodium Chloride 250 mls @ 15 mls/hr 09/05/24 14:27 IV .[id number] PRN Additional IVPB Infusion Lactated Ringer's 1,000 [...] 10 mg/30 mL enema (Fleet 5 mg [place] DAILY PRN c onstipation 07/31/23 Unkno wn [...] no additional complaints, except as documented. 09/06/24 130 <Electronically signed by Grey allan MD> Date _ Grey Roberts MD Cosigner Signature: Date CC: ~ Signed [facility] Work Phone: 1(852) 818-849206-30-2025 Progress note Author Stalin Friend [facility] Note Date/Time September 06, 2024 12:[address] [facility] Medical Records Department [facility] [place] [address] [address] Progress Note 09/06/24 1219 MR#: [id number] Acct: [id number] Name: TONYA FLETCHER Rep #:[id number] : 1960 64 From: Stalin Kuhn DO PCP: Dr. Michelle Marroquin MD Status:A DM IN Location: [place] AL620-6 Progress Note 64-year-old female history of MRDD [...] palpation and non-tender Visit Charges Inpatient E&M: 94887 Subs Hosp L2 09/06/24 1222 <Electronically signed by Stalin Kuhn DO> Stalin Kuhn DO Cosigner Signature (if applicable): CC: ~ Signed [facility] Work Phone: 1(126) 894-594806-30-2025 Progress note [facility] Medical Records Department [address] [place] [address] Progress Note - Hospitalist 09/06/24 0722 MR#: [id number] Acct: [id number] Name: TONYA FLETCHER Rep #:[id number] : 1960 64 From: Jeni Ann DO PCP: Dr. 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06-30-2025 Consult note [facility] Medical Records Department [address] [place] [address] Anesthesia Postop Eval I 09/06/24 1344 MR#: [id number] Acct: [id number] Name: TONYA FLETCHER Rep #:[id number] : 1960 64 From: Brian VAUGHAN PCP: Dr. Michelle Marroquin MD Status:A DM IN Y Race: C Location: [place] [address] Anesthesia: Postop Eval I Current Vital Signs Temperature: 97 F Pulse Rate: 90 Blood Pressure: 101/50 Respiratory Rate: 16 Pulse Ox: 94 Assessment Airway patent: Yes Spontaneous unlabored respirations: Yes nausea: No Vomiting: No Anesthesia Complication: No Fluid Hydration Crystalloid volume administer (ml): 400 Total IV fluid infused: 400 Progress Note Anesthesia document: Postop Eval 1 completed: Yes 09/06/24 1345 BRINE TANK SEPARATOR OPERATOR> Date _ Brian Su BRINE TANK SEPARATOR OPERATOR Cosigner Signature: Date CC: ~ Signed [facility]06-30-2025 Procedure note [facility] Medical Records Department [address] [place] [address] EGD Report MR#: [id number] Acct: [id number] Name: TONYA FLETCHER Rep #:[id number] : [...] present medications. Procedure Code(s): --- Professional --- 33942, Small intestinal endoscopy, enteroscopy beyond second portion of duodenum, not including ileum; with biopsy, single or multiple CPT copyright 2021 [employer]. All rights reserved. The codes documented in this report are preliminary and upon industrial management teacher review may be revised to meet current compliance requirements. Stalin Kuhn DO 09/06/2024 1:43:16 PM This report has been signed electronically. Number of Addenda: 0 Note Initiated On: 09/06/2024 1:13 PM 09/06/24 1343 Date _ Stalin Kuhn DO Cosigner Signature: Date (if indicated) CC: Dr. Michelle Marroquin MD; Stalin Kuhn DO ~ Date Dictated: 09/06/24 1313 Date Transcribed: Linux Consultant: RF Signed [facility]06-30-2025 Procedure note [facility] Medical Records Department [address] [place] [address] Operative Report - CC Letter MR#: [id number] Acct: [id number] Name: TONYA FLETCHER Rep #:[id number] : 1960 64 From: Stalin Kuhn DO PCP: Dr. Michelle Marroquin MD Status:A DM IN 09/06/2024 Michelle Marroquin MD [address] [place] [address] [place] [address] Re : Upper GI endoscopy procedure for [...] ~ Date Dictated: 09/06/24 1313 Date Transcribed: Linux Consultant: RF Signed [facility]06-30-2025 Consult note [facility] Medical Records Department [address] [place] [address] Pre-Anesthesia Evaluation 09/06/24 1253 MR#: [id number] Acct: [id number] Name: TONYA FLETCHER Rep #:[id number] : [...] injection therapy. 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 Female HX of Motion Sickness HX of N/V After Surgery Non-Smoker Duration of Surgery greater than 60 minutes Number of Risk Factors PONV Score Height & Weight Height & Weight: Anesthesia: Height & Weight Height 5 ft 09/06/24 12:01 Weight: 61.28 kg 09/06/24 12:01 Body Mass Index (BMI) 26.4 09/06/24 11:42 Respiratory Assessment Respiratory Assessment - 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: Respiratory Tract Infection Hx - 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 Hx Respiratory Tract Infection No 09/05/24 20:03 STOP Sleep Apnea STOP Sleep Apnea - 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: STOP Sleep Apnea - 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 Hx Hypertension Yes 09/06/24 10:19 Hx Sleep [...] Tobacco Use History 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 Tobacco Use Smoking Status Never smoker 09/05/24 15:39 Hx Tobacco Use No 09/05/24 15:39 Years Smoking Packs Smoked per Day Smoking Cessation Date was within the last 15 years Hx Smoking Cessation Date Hx Smoking Cessation Counseling Hematologic Medial History Hematologic Hx - 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: Hematologic 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 - 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 under Hx of Blood Transfusion No 09/05/24 15:39 [...] confused, unrespo /Reproduction History /Reproductive History - 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: /Reproductive Hx- 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 Hx Now Gestational Age (in weeks): EDC: [...] Ophth Drops EACH EYE Not Given TID [facility] Ascorbic Acid 500 mg 09/06/24 08:00 Ascorbic Acid 500 Mg Tablet PO DAILY@0800 [facility] Cholecalciferol 25 mcg 09/06/24 08:00 Cholecalciferol (Vit D3) 25 Mcg Tablet (1,000 Units) PO DAILY@0800 [facility] Citalopram Hydrobromide 10 mg 09/06/24 10:00 Citalopram 10 Mg Tablet PO DAILY [facility] Citalopram Hydrobromide 20 mg 09/06/24 10:00 Citalopram 20 Mg Tablet PO DAILY [facility] Docusate Sodium 100 mg 09/06/24 10:00 Docusate Sodium 100 Mg Capsule PO QODAY [facility] Ferrous Gluconate 324 mg 09/06/24 08:00 Ferrous Gluconate 324 Mg Tablet PO DAILY@0800 [facility] Pantoprazole Sodium 40 mg/ 100 mls @ 300 mls/hr 09/05/24 22:00 09/06/24 11:25 Sodium Chloride IV Infused Q12 [facility] Infusion Sodium Chloride 250 mls @ 15 mls/hr 09/05/24 14:27 09/06/24 11:40 IV 0 mls/hr .[id number] PRN Infusion Saline Flush Sodium Chloride 250 mls @ 15 mls/hr 09/05/24 14:27 IV .[id number] PRN Additional IVPB Infusion Lactated Ringer's 1,000 mls @ 15 mls/hr 09/06/24 12:15 09/06/24 12:25 IV 15 mls/hr .Q48H [facility] Administration Levothyroxine Sodium 50 mcg 09/06/24 06:00 09/06/24 06:22 Levothyroxine 50 Mcg Tablet PO Not Given DAILY@0600 [facility] Loratadine 10 mg 09/06/24 08:00 Loratadine 10 Mg Tablet PO DAILY@0800 [facility] Melatonin 3 mg 09/05/24 14:12 Melatonin 3 [...] 10 mg/30 mL enema (Fleet 5 mg [place] DAILY PRN c onstipation 07/31/23 Unkno wn [...] MD Cosigner Signature: Date CC: ~ Signed [facility]06-30-2025 Progress note [facility] Medical Records Department [address] [place] [address] Progress Note 09/06/24 1219 MR#: [id number] Acct: [id number] Name: TONYA FLETCHER Rep #:[id number] : 1960 64 [place] [facility] [place]: Dr. Michelle Marroquin MD Status:A DM IN Location: MS3 GY234-3 Progress Note 64-year-old female history of MRDD lives in an apartment has caregivers. She has a history of Arias's esophagus. She also has a history of iron deficiencyanemia, on iron and vitamin C. She also hasa history of atrial fibrillation and cardiomyopathy on Eliquis. She is also status post permanent tn cemaker. Asper the POA she started having [...] palpation and non-tender Visit Charges Inpatient E&M: 43328 Subs Hosp L2 09/06/24 1222 Stalin Friend DO Cosigner Signature (if applicable): CC: ~ Signed [facility]06-29-2025 History and physical note Author Jeni Ann [facility] Note Date/Time September 05, 2024 3:59 pm [facility] Medical Records Department [address] [place] [address] H&P Exam - Hospitalist 09/05/24 1303 MR#: [id number] Acct: [id number] Name: TONYA FLETCHER Rep #:[id number] : 1960 64 From: Jeni Ann DO PCP: Dr. Michelle Marroquin MD Status:A DM IN Location: [place]3 RV140-0 HPI - General General Date of Admission: 09/05/24 Date of Service: 09/05/24 Chief Complaint: Hematemesis HPI Narrative TONYA FLETCHER, is a 64 F who has a history of MRDD and is nonverbal at baselineand presented to the emergency department at [facility] on 09/05/2024 with caregivers. Evidently, about [...] dose of Protonix in the emergency department. 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 Michelle Marroquin MD; Dr. Jeni Ann DO~ Signed [facility] Work Phone: 1(676) 109-804206-29-2025 History and physical note [facility] Medical Records Department [address] [place] [address] H&P Exam - Hospitalist 09/05/24 1303 MR#: [id number] Acct: [id number] Name: TONYA FLETCHER Rep #:[id number] : 1960 64 From: Jeni Ann DO PCP: Dr. Michelle Marroquin MD Status:A DM IN Location: [place] KY531-0 HPI - General General Date of Admission: 09/05/24 Date of Service: 09/05/24 Chief Complaint: Hematemesis HPI Narrative TONYA FLETCHER, is a 64 F who has a history of MRDD and is nonverbal at baselineand presented to the emergency department at [facility] on 09/05/2024 with caregivers. Evidently, about [...] dose of Protonix in the emergency department. 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 Michelle Marroquin MD; Dr. Jeni Ann, DO~ Signed [facility]06-29-2025 Discharge summary Author Dominguez Bolton [facility] Note Date/Time September 05, 2024 1:[address] [facility] Medical Records Department [address] [place] [address] Emergency Department Summary 09/05/24 MR#: [id number] Acct: [id number] Name: TONYA FLETCHER Rep #:[id number] : [...] 10 mg/30 mL enema (Fleet 5 mg [place] DAILY PRN c onstipation 07/31/23 Unknown History [...] be admitted. She will be admitted to [facility]. She has already been started on Protonix [...] % (Auto) 62.1 Lymph % (Auto) 28.4 Mobile % (Auto) 6.0 Eos % (Auto) 2.5 [...] Bisacodyl 10 mg/30 mL enema 5 mg [place] DAILY PRN Rx Instructions: ON DAY FIVE [...] MD [Primary Care Provider] - Print Language: Croatian Disposition Disposition: Acute Care Hospital [facility] What to do if you have Problems For any increased pain, shortness of breath, bleeding, nausea or vomiting, chestpain, or any unexpected problems, contact your Primary Care Provider. Call [facility] ([phone]) or report to the closest Emergency Room. Call 911 if necessary. 09/05/24 1313 <Electronically signed by Dominguez Bolton MD> Cosigner Signature (if applicable): CC: Dr. Michelle Marroquin MD ~ Signed [facility] Work Phone: 1(574) 221-357506-29-2025 Discharge summary Author Dominguez Bolton [facility] Note Date/Time September 05, 2024 1:13 pm [facility] Medical Records Department [address] [place] [address] Emergency Department Summary 09/05/24 MR#: [id number] Acct: [id number] Name: TONYA FLETCHER Rep #:[id number] : [...] 10 mg/30 mL enema (Fleet 5 mg [place] DAILY PRN c onstipation 07/31/23 Unknown History [...] be admitted. She will be admitted to [facility]. She has already been started on Protonix [...] % (Auto) 62.1 Lymph % (Auto) 28.4 Mobile % (Auto) 6.0 Eos % (Auto) 2.5 [...] Bisacodyl 10 mg/30 mL enema 5 mg [place] DAILY PRN Rx Instructions: ON DAY FIVE [...] MD [Primary Care Provider] - Print Language: Croatian Disposition Disposition: Acute Care Hospital [facility] What to do if you have Problems For any increased pain, shortness of breath, bleeding, nausea or vomiting, chestpain, or any unexpected problems, contact your Primary Care Provider. Call [facility] ([phone]) or report to the closest Emergency Room. Call 911 if necessary. 09/05/24 1313 <Electronically signed by Dominguez Bolton MD> Cosigner Signature (if applicable): CC: Dr. Michelle Marroquin MD ~ Signed [facility] Work Phone: 1(138) 672-131806-29-2025 Discharge summary [facility] Medical Records Department [address] [place] [address] Emergency Department Summary 09/05/24 MR#: [id number] Acct: [id number] Name: TONYA FLETCHER Rep #:[id number] : [...] 10 mg/30 mL enema (Fleet 5 mg [place] DAILY PRN c onstipation 07/31/23 Unknown History [...] be admitted. She will be admitted to [facility]. She has already been started on Protonix [...] % (Auto) 62.1 Lymph % (Auto) 28.4 Mobile % (Auto) 6.0 Eos % (Auto) 2.5 [...] Bisacodyl 10 mg/30 mL enema 5 mg [place] DAILY PRN Rx Instructions: ON DAY FIVE [...] MD [Primary Care Provider] - Print Language: Croatian Disposition Disposition: Acute Care Hospital [facility] What to do if you have Problems For any increased pain, shortness of breath, bleeding, nausea or vomiting, chestpain, or any unexpected problems, contact your Primary Care Provider. Call [facility] ([phone]) or report tothe closest Emergency Room. Call 911 if necessary. 09/05/24 1313 Cosigner Signature (if applicable): CC: Dr. Michelle Marroquin MD ~ Signed [facility]06-19-2025 NoteHNO ID: [id number] Author: HAJA COLEY MD Service: ? Author Type: Physician Type: Progress Notes Filed: 08/26/2024 18:45 Note Text: [facility] Subjective Tonya Fletcher is a 64 [...] the following reason(s): Benign exam and vitals ProceduresCenterville06-19-2025 History of Present illness Narrative* Haja Coley [...] exam and vitals Procedures documented in this encounterM[facility] Evaluation note* Diagnosis Onset Date Resolution Status [...] 2:55pm Nausea acute August 10, 2024 2:55pm [facility] Work Phone: 1(441) 545-425804-04-2025 Evaluation note* Diagnosis Onset Date Resolution Status [...] 2024 2:55pm Hematemesis acute September 05 1:38pm [facility] Work Phone: 1(941) 619-125004-04-2025 Evaluation note* Diagnosis Onset Date Resolution Status [...] 2024 2:55pm Hematemesis resolved September 05 1:38pm [facility] Work Phone: 1(901) 684-832202-12-2025 Evaluation note* Diagnosis Onset Date Resolution Status [...] Urinary incontinence chronic Apri l 2024 12:50pm [facility] Work Phone: 1(964) 197-693304-05-2024 Discharge summary Author Haresh Curtis [facility] June 13, 2023 8:23am Note Date/Time June 13, 2023 6:33 am [facility] Medical Records Department [address] [place] [address] Emergency Department Summary 06/13/23 MR#: [id number] Acct: [id number] Name: TONYA FLETCHER Rep #:[id number] : 1960 62 From: Haresh Curtis DO PCP: Dr. Rocky Barlow MD Status:REG E R Location: ED HPI History of Present Illness Chief Complaint: General Illness Informant: patient and legal guardian Narrative Narrative: Patient is a 62-year-old female with past medical history of cerebral palsy as well as previous pulmonary embolism currently on Xarelto hypothyroidism and hyperlipidemia. Ball Truing Machine Operator reports that she awoke around 2:30/2:45 in the morning to sounds of retching and the patient had 3 bouts of vomiting. Ball Truing Machine Operator states that the vomit was whenever was in her stomach and then turned to bile and was not dark or bloody. Reportedly the patient has a remote historyof bowel obstruction and the frame operator denies any recent diarrhea and therefore was concerned for this and called EMS to bring her in for evaluation. The patient cannot offer any further history based on her cerebral palsy Please note frame operator states that she and her other frame operator were both sick with similar symptoms just [...] note review of systems was obtained from frame operator Constitutional Constitutional ED: Denies fever(s) ENT ENT [...] Differential diagnosis is for viral infection suchas [place] virus versus rotavirus versus electrolyte abnormality versus [...] & Record Review Discussion w/independent historian: Other (Ball Truing Machine Operator) Lab Data Attestation: I reviewed the patient's lab results. Labs: Laboratory Results - last 24 hr 06/13/23 06:12 WBC 9.0 RBC 4.62 Hgb 14.3 Hct 43.6 MCV 94.4 MCH 31.0 MCHC 32.8 RDW Std Deviation 47.4 H RDW Coeff of Handy 13.5 Plt Count 321 MPV 10.5 Immature Gran % (Auto) 0.200 Neut % (Auto) 80.0 H Lymph % (Auto) 12.4 L Mobile % (Auto) 4.6 Eos % (Auto) 2.5 [...] 8:17 EDT Reading Location ID and State: [facility] / ID Tel , Service support , Acute abdominal series with 1 view chest as interpreted by the emergency medicine physician reveals a nonspecific nonobstructive bowel gas pattern and chest x-ray component reveals no obvious infiltrate Discharge Plan Triage Chief Complaint: General Illness ED Provider: Haresh Curtis Dx/Rx/DC Orders Clinical Impression: Nausea and vomiting, Current use of terminal computer operator anticoagulation, Cerebral palsy Instructions: ED Gastroenteritis, Viral [...] your Primary Care Provider. Call [facility] ([phone]) or report to the closest Emergency Room. Call 911 if necessary. 06/13/23822 <Electronically signed by Haresh Curtis DO> Cosigner Signature (if applicable): CC: Dr. Rocky Barlow MD ~ Signed [facility] Work Phone: 1(857) 508-629610-25-2023 Procedure [facility] 10-29-2021 Miscellaneous Notes* Telephone Encounter - Mary Alice Sumner RN - 10/29/2021 10:43 AM EDT Erica Askew with [facility] notified. Patient did already take diflucan and symptoms have improved. Mary Alice Sumner RN * Telephone Encounter - Mary Alice Sumner RN - 10/29/2021 9:49 AM EDT Left voicemail on [facility] to call office. Mary Alice Sumner RN * Telephone Encounter - Kathya Eric APRN.CNM - 10/27/2021 12:04 PM EDT Please notify patient that results are negative. She did receive 1 dose of Diflucan. If any furtherissues or concerns to please let us know and can decide on another treatment plan for symptoms.Kathya Eric APRN.CNM documented in this encounterMarietta [facility] Clinic08-20-2022 Miscellaneous Notes* Telephone Encounter - Libby Mariano [...] PCP. Melba Suarez CNP documented in this encounterMarietta Osteopathic Clinic08-19-2022 Instructions* Patient Instructions* Kathya Eric APRN.CNM - [...] for diabetes Get tested for HIV/AIDS Copyright 9822-[address] [facility]. All rights reserved. This information is provided by the [facility] and is not intended to replace the medical advice of your doctor or health care provider. Please consult your health care provider for advice about a specific medical condition. For additional written health information, please contact the [facility] at the [facility] or toll-free extension [phone]. This document was last reviewed on: 2004 index#[id number] documented in this encounterMarietta Osteopathic Clinic08-19-2022 History of Present illness Narrative* Kathya Eric [...] L0 SAB0 IAB0 Ectopic0 Multiple0 Live Births0 Script Artist History LMP: LMP Unknown, Postmenopausal Age at Menarche: Age at First : Age at Menopause: Script Artist History Comments: Sexual Activity: Never; No partner data on record Contraception: No contraception data on record PAST MEDICAL HISTORY Diagnosis Date Allergic rhinitis due to other allergen Depressive disorder, not elsewhere classified Sees Dr. Anna Tomlin from [facility] Esophageal reflux suspected cause of emesis [...] EGD W/O OR W/BRUSH/WASH 05/22/2017 EGD w/biopsy [facility] EGD W/O OR W/BRUSH/WASH 05/28/2018 [...] mouth once daily. COMPOUNDED PRESCRIPTION Light talker sonestShopPad Pathfinder Device with Table Mount, Wheelchair Mount [...] recommendations. Kathya Eric APRN.CNM documented in this encounterMarietta Osteopathic Clinic08-19-2022 History of Present illness Narrative* Lennox Chamberlain APRN.HEAVY COIL WINDER - 10/26/2021 8:17 AM EDT Subjective HPI HPI Tonya Fletcher is a 61 year old female who presents today for CC of burning with urination. This started 1 week ago. Has tried nothing for relief. Symptoms are worsened by nothing. staff writer reports no visible abnormality in area. Patient [...] elsewhere classified Sees Dr. Anna Tomlin from [facility] Esophageal reflux suspected cause of emesis [...] EGD W/O OR W/BRUSH/WASH 05/22/2017 EGD w/biopsy [facility] EGD W/O OR W/BRUSH/WASH 05/28/2018 [...] buttocks twice daily COMPOUNDED PRESCRIPTION Light talker [employer] Pathfinder Device with Table Mount, Wheelchair Mount [...] culture - will try to get earlier international trade teacher appointment Worsening symptoms go to ER. - [...] plan Lennox Chamberlain APRN.CNP documented in this encounterMarietta Osteopathic Clinic08-19-2022 Instructions* Patient Instructions* Lennox Chamberlain APRN.CNP - 10/26/2021 8:09 AM EDT ASSESSMENT/PLAN: 1. Burning with urination - ICD9: 788.1, ICD10: R30.0 (primary diagnosis) Acute -urinalysis negative - Send urine for culture - will try to get earlier international trade teacher appointment Worsening symptoms go to ER. - [...] breath go to ER documented in this encounterMarietta Osteopathic ClinicConsult note Author Peace Flores [facility] Note Date/Time September 07, 2024 2:35p m [facility] Medical Records Department [address] [place] [address] Counseling Note - Pharmacy 09/07/24 1434 MR#: [id number] Acct: [id number] Name: TONYA FLETCHER Rep #:[id number] : 1960 64 From: Peace Flores PCP: Dr. Michelle Marroquin MD Status:A DM IN Y Location: MS3 [id number] Pharmacy [facility] Counseling Pharmacy Service has performed discharge medication [...] mg/30 mL enema (Fleet Bisacodyl) 5 mg [place] DAILY PRN constipation 07/31/23 bismuth subsalicylate 525 [...] mg PO BID #60 tabs 09/07/24 09/07/24 3165 <Electronically signed by Peace Flores> Date _ Peace Flores Cosigner Signature (if applicable): Date CC: ~ Signed [facility] Work Phone: Evaluation noteNo assessment information available [facility] Work Phone: Evaluation note* Diagnosis Burning with urination- Primary Dysuria Wheeze Wheezing Chronic cough Cough documented in this encounter [facility]* Diagnosis Vaginal itching- Primary Pruritus of genital organs Vaginal burning Other specified symptom associated with female genital organs Vaginal odor Unspecified symptom associated with female genital organs Vaginal discharge Leukorrhea, not specified as infective documented in this encounter [facility]* Diagnosis Onset Date Resolution Status Acute respiratory failure with hypoxia acute RSV bronchitis acute Tachycardia acute [facility] Work Phone: Evaluation note* Diagnosis Onset Date Resolution Status RSV bronchitis acute Acute respiratory failure with hypoxia resolved Tachycardia resolved Gastroenteritis acute URI (upper respiratory infection) acute [facility] Work Phone: Evaluation note* Diagnosis Pre-operative [...] vomiting type- Primary [facility] Additional Instructions Your workup today does not show any signs of aspiration or small bowel obstruction. Symptoms are most likely related to a viral stomach infection based on your negative workup and exposure. Use the Zofran as directed to help control any further bouts of nausea and vomiting and return to the ER should you have any further concernsWUniversity [facility]als [facility] Work Phone: Hospital Discharge instructions [...] if she develops a fever or is worse.[facility] Work Phone: Reason for referral (narrative)No reason for referral information availableWUniversity Hospitals Conne[facility] Work Phone: Summary Purpose Family History Relationship [...] Will No February 05 11:33pm Power of Supervisor Ordnance Truck Installation No February 05, 2021 11:33pm Advance Directive Response Recorded Date/ Time Name of Medical Power of Supervisor Ordnance Truck Installation Jess anders January 02, 2022 9:53pm Advance Directives No May 25 9:26am Living Will No January 02 9:53pm Power of Supervisor Ordnance Truck Installation Yes January 02, 2022 9:53pm Advance Directive Response Recorded Date/ Time Name of Medical Power of Supervisor Ordnance Truck Installation Jess anders January 02, 2022 8:53pm Advance Directives No January 1:53pm Living Will No March 21 5:49pm Power of Supervisor Ordnance Truck Installation No March 21, 2022 5:49pm Advance Directive Response Recorded Date/ Time Advance Directives No January 2:53pm Living Will No March 21 6:49pm Power of Supervisor Ordnance Truck Installation No March 21, 2022 6:49pm Advance Directive Response Recorded Date/ Time Advance Directives No January 2:53pm Living Will No August 15, 2022 5 :22pm Power of Supervisor Ordnance Truck Installation No August 15, 2022 5:22pm Advance Directive Response Recorded Date/ Time Advance Directives No January 1:53pm Living Will No August 15, 2022 4 :22pm Power of Supervisor Ordnance Truck Installation No August 15, 2022 4:22pm Advance Directive Response Recorded Date/ Time Advance Directives No January 2:53pm Living Will No July 21, 2023 8 :44am Power of Supervisor Ordnance Truck Installation No July 21, 2023 8:44am Advance Directive Response Recorded Date/ Time Living Will No October 08, 2023 3:03pm Do you have a Healthcare Power of Supervisor Ordnance Truck Installation? No October 08, 2023 3:03pm Living Will No April 09 9:36pm Do you have a Healthcare Power of Supervisor Ordnance Truck Installation? No April 09, 2024 9:36pm Advance Directives No October 07 3:03pm Advance Directive Response Recorded Date/ Time Living Will No October 08, 2023 3:03pm Do you have a Healthcare Power of Supervisor Ordnance Truck Installation? No October 08, 2023 3:03pm Advance Directives No October 07 3:03pm Advance Directive Response Recorded Date/ Time Living Will No October 08, 2023 3:03pm Do you have a Healthcare Power of Supervisor Ordnance Truck Installation? No October 08, 2023 3:03pm Advance Directives No August 10 2:47pm Advance Directive Response Recorded Date/ Time Living Will No October 08, 2023 3:03pm Do you have a Healthcare Power of Supervisor Ordnance Truck Installation? No October 08, 2023 3:03pm Advance Directives No August 10 2:47pm Do you have a Healthcare Power of Supervisor Ordnance Truck Installation? Yes September 05, 2024 7:31am Advance Directive Response Recorded Date/ Time Living Will No October 08, 2023 3:03pm Do you have a Healthcare Power of Supervisor Ordnance Truck Installation? No October 08, 2023 3:03pm Advance Directives No August 10 2:47pm Do you have a Healthcare Power of Supervisor Ordnance Truck Installation? Yes September 05, 2024 3:39pm Chief Complaint [...] section and content) DATE CREATED AUTHOR 09/03/2017 [facility] Mackenzie norris [place] DATE CREATED AUTHOR AUTHOR'S ORGANIZ ATION 02/15/2018 [facility] DATE CREATED AUTHOR AUTHOR'S ORGANIZ ATION 08/29/2024 [place] DATE CREATED AUTHOR AUTHOR'S ORGANIZ ATION 09/18/2024 [facility] Goals (unrecognized section and [...] or prosecute any alcohol or drug abuse patient.[facility] ClinicIn the event this information is protected by the Federal Confidentiality of Alcohol and Drug Abuse Patient Records regulations: The Federal rules restrict any use of the information to criminally investigate or prosecute any alcohol or drug abuse patient.[facility] ClinicIn the event this information is protected by the Federal Confidentiality of Alcohol and Drug Abuse Patient Records regulations: The Federal rules restrict any use of the information to criminally investigate or prosecute any alcohol or drug abuse patient.[facility] ClinicIn the event this information is protected by the Federal Confidentiality of Alcohol and Drug Abuse Patient Records regulations: The Federal rules restrict any use of the information to criminally investigate or prosecute any alcohol or drug abuse patient.[facility] ClinicIn the event this information is protected by the Federal Confidentiality of Alcohol and Drug Abuse Patient Records regulations: The Federal rules restrict any use of the information to criminally investigate or prosecute any alcohol or drug abuse patient.[facility] Reason for Visit (unrecogniz ed section and content) Reason Comments Urinary Problem burning with urinati on, cough, congestion and wheezing x 1 day Reason Comments Results, Lab Results Reason Comments Results Reason Comments Nausea & Vomiting Fever started today Care Teams (unrecognized sec tion and content) Cyber Threat Analyst Relationship Specialty Start Date End Date Rocky Barlow Chi [address] [address] PCP - General Family Practice 09/24/12 Bartolo Philippe [address] [place] [address] Referring Ophthalmology 12/30/18 Cyber Threat Analyst Relationship Specialty Start Date End Date Rocky Barlow Chi [address] [place], [place] [id number] PCP - General Family Practice 09/24/12 Bartolo Philippe [address] [place], [place] [id number] Referring Ophthalmology 12/30/18 Cyber Threat Analyst Relationship Specialty Start Date End Date Cain Rocky Montes [address] [facility] [address] [place], [place] [id number] PCP - General Family Practice 09/24/12 Bartolo Philippe [address] [facility] [place] [address] Referring Ophthalmology 12/30/18 Team Status: Active Member [...] Inactive Member Role Status Dates Dr. Rocky Barlwo MD Primary Care Provider Active Dr. Haresh [...] August 10, 2024 End: August 10, 2024 Cyber Threat Analyst Relationship Specialty Start Date End Date Rocky Barlow Chi [address] [place], [place] [id number] PCP - General Family Medicine 09/24/12 Bartolo Philippe MD [address] [place], [place] [address] Referring Ophthalmology 12/30/18 Team Status: Active Member [...] Inactive Member Role/Relationship Status Dates Dr. Michelle Marrqouin MD Primary Care Provider Active Start: September [...] BE BASED ON THE PRIMARY CLINICAL RECORDS. [facility] [employer] provides no warranty or guarantee of the accuracy or completeness of information in this document.
== END | disposition home or self-care (01) ==
LOC: LAB 14:11
PROVIDERS: PCP Internal Medicine; Referring Provider Student in an Organized Health Care Education/Training Program; Visit Provider Student in an Organized Health Care Education/Training Program
DX: R11.0 Nausea (principal)
CPT/HCPCS: 36415; 85025

== ENCOUNTER 2024-12-02 08:25 | Day surgery (SDC) | payer MEDICARE, MEDICAID, SELFPAY ==
--- NOTE | 2024-11-30 14:55 | PAT.ANE_ITS ---
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 When Was Last Pacemaker Check QUESTION #4 FULL TEXT: You/Your Family Experience fever (hyperthermia) with Anesthesia Last Oral Intake Last Oral intake: Last Oral Intake NPO since Meds taken in AM with sips of water? Meds patient instructed to take am of surgery PONV PONV - cutter operator asbestos shingle: PONV - cutter operator asbestos shingle Female Yes 11/29/24 16:37 HX of Motion Sickness No 11/29/24 16:37 HX of N/V After Surgery No 11/29/24 16:37 Non-Smoker Yes 11/29/24 16:37 Duration of Surgery greater No 11/29/24 16:37 than 60 minutes Number of Risk Factors 2 11/29/24 16:37 PONV Score Moderate Risk 11/29/24 16:37 Height & Weight Height & Weight: Anesthesia: Height & Weight Height 5 ft 09/06/24 12:01 Respiratory Assessment Respiratory Assessment - cutter operator asbestos shingle: Respiratory Tract Infection Hx - cutter operator asbestos shingle Hx Respiratory Tract Infection No 11/29/24 16:37 STOP Sleep Apnea STOP Sleep Apnea - cutter operator asbestos shingle: STOP Sleep Apnea - cutter operator asbestos shingle Hx Hypertension No 11/29/24 16:37 Hx Sleep Apnea Yes 11/29/24 16:37 CPAP No 11/29/24 16:37 BIPAP No 11/29/24 16:37 Do you snore loudly (louder than talking or can be heard Do you often feel tired/ fatigued/ sleepy during daytime? Has anyone observed you stop breathing during sleep? STOP Results Positive 11/29/24 16:37 QUESTION #5 FULL TEXT : Do you snore loudly (louder than talking or can be heard through closed doors)? Tobacco Use History Tobacco Use History - cutter operator asbestos shingle: Tobacco Use History - cutter operator asbestos shingle Tobacco Use Smoking Status Never smoker 11/29/24 16:37 Hx Tobacco Use No 11/29/24 16:37 Years Smoking Packs Smoked per Day Smoking Cessation Date was within the last 15 years Hx Smoking Cessation Date Hx Smoking Cessation Counseling Hematologic Medial History Hematologic Hx - cutter operator asbestos shingle: Hematologic Medical Hx - personal carer Hx of Blood Transfusion No 11/29/24 16:37 Hx of Transfusion in last 3 No 11/29/24 16:37 Months Date of Last Transfusion (if within last 3 months) Ever experience any problems No 11/29/24 16:37 with transfusion(s)? Specify any problems Hx of Preganancy in last 3 No 11/29/24 16:37 Months Nurse Filling Out Transfusion MGRIFFITH 11/29/24 16:37 & Questions: Date: 11/29/24 11/29/24 16:37 Time: 16:42 11/29/24 16:37 Patient unable to answer at this time (ie. confused, unrespo /Reproduction History /Reproductive History - cutter operator asbestos shingle: /Reproductive Hx- cutter operator asbestos shingle Hx Now No 11/29/24 16:37 Gestational Age (in weeks): EDC: Hx Hx Para Hx Section SAB No 11/29/24 16:37 [facility] Medical History (Updated 11/29/24 @ 17:09 by Olena Garcia) Post-menopausal Alcohol use Thyroid disease Uses wheelchair History of DVT (deep vein thrombosis) Dietary restriction Difficulty swallowing History of GI bleed Gastric reflux Non-smoker Sleep apnea Chronic cough Cardiology follow-up encounter History of pacemaker Diarrhea Nausea Intellectual developmental disorder, severe Urinary incontinence History of aspiration pneumonia History of airway aspiration Health care maintenance Anxiety and depression History of pulmonary embolism Gastroenteritis neurostimulater Pacemaker metal gavi rt leg Hyperlipidemia Insomnia Fecal impaction Barretts esophagus Pulmonary embolism Vitamin D deficiency GERD (gastroesophageal reflux disease) Depression Hypothyroidism Cerebral palsy Home Medications ?Medication ?Instructions ?Recorded ?Last Taken ?Type loratadine 10 mg tablet 10 mg PO DAILY@0800 ALLERGIE S 09/10/14 01/02/22 History mirtazapine 7.5 mg tablet 7.5 mg PO QHS@1999 DEPRESSIO N 05/19/17 01/01/22 History azelastine 0.05 % eye drops 0.05 drp EACH EYE BID@0800 ,199908/08/18 01/02/22 History DRY EYES apixaban 5 mg tablet 5 mg PO BID BLOOD THINNER 11/29/24 History ascorbic acid (vitamin C) 500 mg 500 mg PO DAILY@0800 SUPPLEMENT 01/02/22 01/02/22 History tablet carboxymethylcellulose sodium 0.5 1 drp EACH EYE TID 1 01/02/22 History % eye drops (Refresh Tears) cholecalciferol (vitamin D3) 25 25 mcg PO DAILY@0800 S UPPLEMENT 01/02/2201/02 History mcg (1,000 unit) chewable tablet (Vitamin D3) ferrous gluconate 324 mg (38 mg 324 mg PO DAILY@0800 S UPPLEMENT 01/02/22 01/02/22 History iron) tablet levothyroxine 50 mcg tablet 50 mcg PO DAILY@0600 THYRO ID 01/02/22 01/02/22 History GENERAL PROTECTION LOTION 1 dose topical 4X/DAY PRN sk in 07/31/23 Unknown History protection acetaminophen 160 mg/5 mL oral 500 mg PO Q6H PRN fever or pain 07/31/23 Unknown History elixir bisacodyl 10 mg/30 mL enema (Fleet 10 mg [place] DAILY PRN constipation 07/31/23 Unknown History Bisacodyl) bismuth subsalicylate 525 mg/15 mL 1,050 mg PO 4X/DAY PRN PRN diarrhea 07/31/23 Unknown History oral suspension (Pepto-Bismol Max St) carboxymethylcellulose sodium 0.5 1 drp ophthalmic (ey e) 4-6XD PRN 07/31/23 Unknown History % eye drops (Refresh Tears) dry eye(s) citalopram 10 mg tablet 10 mg PO DAILY 07/31/23 Unkn own History citalopram 20 mg tablet 20 mg PO DAILY 07/31/23 Unkn own History ipratropium 0.5 mg-albuterol 3 mg 3 ml inhalation Q4H PRN shortness 07/31/23 Unknown History (2.5 mg base)/3 mL nebulization of breath or wheezing soln pantoprazole 40 mg tablet,delayed 40 mg PO BID #180 ta bs 10/20/24 Unknown Rx release docusate sodium 100 mg capsule 100 mg PO Q OTHER DAY # 15 caps 11/25/24 Unknown Rx Allergy/AdvReac Type Severity Reaction Status Date / Time amoxicillin trihydrate (From AdvReac Unknown Verified 11/29/24 16:22 Augmentin) potassium clavulanate (From AdvReac Unknown Verified 11/29/24 16:22 Augmentin) Family History Father Pulmonary embolism Alcoholism Mother CVA (cerebral vascular accident) Surgical History (Updated 11/29/24 @ 16:37 by Olena Garcia) History of esophagogastroduodenoscopy (EGD) History of permanent cardiac pacemaker placement History of brain surgery History of surgery on lower extremity Hx of cataract removal with insertion of prosthetic lens Social History Smoking Status: Never smoker alcohol intake: current alcohol intake frequency: 0-2 drinks per day substance use type: does not use and other details: THC LAST USED ON 07/20/23 seatbelt use: always Audit: Pertinent Findings Pertinent Findings EKG Perinent findings: 09/06/2024. Normal sinus rhythm. Recommendation Anesthesia Recommendation Anesthesia recommendation: OPTIMIZED for anesthesia
[2024-12-02] VITALS (8 sets, daily range): BP systolic 101–145; BP diastolic 66–84; PULSE 57–68; RESP 14–16; TEMP 36.5–36.8; O2SAT 93–99; BMI 29.2
--- NOTE | 2024-12-02 09:07 | HP.PCM_ITS ---
HPI - General General Date of Admission: 12/02/24 Date of Service: 12/02/24 Chief Complaint: GI bleed HPI Narrative TONYA GUIDRY, is a 64 F who presentsChief Complaint: esophagitits Details: TONYA GUIDRY, is a 64 F who presents to the office today for f/u. [facility] admission 6.-7..25 after presentation to the ED with dark emesis. Pt with hx of MRDD and living in an apartment with caregivers. 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 She is on iron and Pepto Bismol. Hgb dropping from 13.9 to 12.6 while in the ED. Admitted for management EGD 6.25 - LA Grade D erosive esophagitis with no bleeding. 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 Biopsied. - No gross lesions in the entire stomach. - Large hiatal hernia. - No gross lesions in the third portion of the duodenum. OV 7.15.25 pt doing well since being in the hospital. She has had no further hematemesis. She continues with pantoprazole 40 mg daily. CBC W/Diff, Automated Today R11.0 - Nausea PFSH Medical History Post-menopausal Alcohol use Thyroid disease Uses wheelchair History of DVT (deep vein thrombosis) Dietary restriction Difficulty swallowing History of GI bleed Gastric reflux Non-smoker Sleep apnea Chronic cough Cardiology follow-up encounter History of pacemaker Diarrhea Nausea Intellectual developmental disorder, severe Urinary incontinence History of aspiration pneumonia History of airway aspiration Health care maintenance Anxiety and depression History of pulmonary embolism Gastroenteritis neurostimulater Pacemaker metal gavi rt leg Hyperlipidemia Insomnia Fecal impaction Barretts esophagus Pulmonary embolism Vitamin D deficiency GERD (gastroesophageal reflux disease) Depression Hypothyroidism Cerebral palsy Home Medications ?Medication ?Instructions ?Recorded ?Last Taken ?Type loratadine 10 mg tablet 10 mg PO DAILY@0800 ALLERGIE S 09/10/14 01/02/22 History mirtazapine 7.5 mg tablet 7.5 mg PO QHS@1999 DEPRESSIO N 05/19/17 01/01/22 History azelastine 0.05 % eye drops 0.05 drp EACH EYE BID@0800 ,199908/08/18 01/02/22 History DRY EYES apixaban 5 mg tablet 5 mg PO BID BLOOD THINNER 11/29/24 History ascorbic acid (vitamin C) 500 mg 500 mg PO DAILY@0800 SUPPLEMENT 01/02/22 01/02/22 History tablet carboxymethylcellulose sodium 0.5 1 drp EACH EYE TID 1 01/02/22 History % eye drops (Refresh Tears) cholecalciferol (vitamin D3) 25 25 mcg PO DAILY@0800 S UPPLEMENT 01/02/22 01/02/22 History mcg (1,000 unit) chewable tablet (Vitamin D3) ferrous gluconate 324 mg (38 mg 324 mg PO DAILY@0800 S UPPLEMENT 01/02/22 01/02/22 History iron) tablet levothyroxine 50 mcg tablet 50 mcg PO DAILY@0600 THYRO ID 01/02/22 12/02/24 History GENERAL PROTECTION LOTION 1 dose topical 4X/DAY PRN sk in 07/31/23 Unknown History protection acetaminophen 160 mg/5 mL oral 500 mg PO Q6H PRN fever or pain 07/31/23 Unknown History elixir bisacodyl 10 mg/30 mL enema (Fleet 10 mg [place] DAILY PRN constipation 07/31/23 Unknown History Bisacodyl) bismuth subsalicylate 525 mg/15 mL 1,050 mg PO 4X/DAY PRN PRN diarrhea 07/31/23 Unknown History oral suspension (Pepto-Bismol Max St) carboxymethylcellulose sodium 0.5 1 drp ophthalmic (ey e) 4-6XD PRN 07/31/23 Unknown History % eye drops (Refresh Tears) dry eye(s) citalopram 10 mg tablet 10 mg PO DAILY 07/31/23 Unkn own History citalopram 20 mg tablet 20 mg PO DAILY 07/31/23 Unkn own History ipratropium 0.5 mg-albuterol 3 mg 3 ml inhalation Q4H PRN shortness 07/31/23 Unknown History (2.5 mg base)/3 mL nebulization of breath or wheezing soln pantoprazole 40 mg tablet,delayed 40 mg PO BID #180 ta bs 10/20/24 Unknown Rx release docusate sodium 100 mg capsule 100 mg PO Q OTHER DAY # 15 caps 11/25/24 Unknown Rx Allergy/AdvReac Type Severity Reaction Status Date / Time amoxicillin trihydrate (From AdvReac Unknown Verified 12/02/24 08:57 Augmentin) potassium clavulanate (From AdvReac Unknown Verified 12/02/24 08:57 Augmentin) Family History Father Pulmonary embolism Alcoholism Mother CVA (cerebral vascular accident) Surgical History History of esophagogastroduodenoscopy (EGD) History of permanent cardiac pacemaker placement History of brain surgery History of surgery on lower extremity Hx of cataract removal with insertion of prosthetic lens Social History Smoking Status: Never smoker alcohol intake: current alcohol intake frequency: 0-2 drinks per day substance use type: does not use and other details: THC LAST USED ON 07/20/23 seatbelt use: always ROS Constitutional Constitutional: Denies fatigue, fever(s), poor appetite, weight gain or weight loss Gastrointestinal Gastrointestinal: Denies belching, bloating, change in bowel habits, change in stool character, chewing difficulty, coffee ground emesis, constipation, cramping, diarrhea, dyspepsia, dysphagia, early satiety, excessive flatus, fecal incontinence, heartburn, hematemesis, hematochezia, hemorrhoids, loose stools, melena, nausea, odynophagia, rectal bleeding, tenesmus, vomiting or weight changes Physical Exam Const alert, oriented x3, no apparent distress and healthy appearing General Appearance: cooperative GI normal to inspection, nondistended, normoactive bowel sounds, soft to palpation, non-tender and non-distended Percussion: normal to percussion Rectal Exam: deferred Assessment & Plan Assessment/Plan (1) History of Arias esophagus: (2) Acute upper gastrointestinal bleeding: PLAN: Assessment and Plan Assessment and Plan (1) History of Arias esophagus: Status: Acute Plan: Tonya is a 64 yo female pt here today today for f/u after [facility] admission for GI bleeding. Pt presented to the ED with one episode of coffee ground emesis. She was observed in the ED for a few hours and had a one gram drop in her hemoglobin therefore was admitted. She underwent EGD which showed LA grade D esophagitis and established long segment Barretts. It is unclear if she has been on PPI in the past or if she was started on it while in the hospital. I have recommend continued twice daily dosing. I have orderd CBC to monitor her hgb. She will undergo repeat EGD in 8 weeks to assess healing. -EGD in 8 weeks -Continue PPI -CBC (2) Acute upper gastrointestinal bleeding: Status: Acute Orders: Orders CBC W/Diff, Automated Today R11.0 - Nausea
[2024-12-02] MEDS: Lactated Ringers 1,000 ML 15 ML IV (09:27)
--- NOTE | 2024-12-02 09:30 | EGD_PTH ---
PATIENT: SUNNI GUIDRY LOC: EN U#:[id number] AGE/SX: 64/F ROOM: RE12/02/[address]: Dr. Stalin Kuhn DO : 1960 BED: DIS: 12/02/2024 SPEC #: [id number] RECD: 12/02/24 10:43 STATUS: LOIDA YOU #: [id number] DANIEL: 12/02/24 09:[address]: Stalin Kuhn DEPT: SURGICAL PATHOLOGY RECD BY: Arturo Sykes ENTERED: 12/02/24 14:26 SP TYPE: EGD BIOPSY BERNY DR: Dr. Michelle Marroquin MD Tissues: A - Esophagus, NOS Procedures: Surgery Specimen Level IV HEADER OPERATION: EGD with biopsy PRE-OP DIAGNOSIS: History of Arias's esophagus, acute upper gastrointestinal bleeding TISSUE SUBMITTED: A- Distal esophagus biopsy MICROSCOPIC DIAGNOSIS A. Distal esophagus, biopsy: * Arias mucosa negative for dysplasia. MICROSCOPIC DESCRIPTION Slides are reviewed. GROSS DESCRIPTION A. Received in fixative is one container labeled with the patient's name and designated Distal esophagus biopsy. The specimen consists of multiple irregular fragments of south tissue that in aggregate measure 0.7 x 0.4 x 0.1 cm. The specimen is totally submitted in one cassette. HI 12/02/2024 CPT:58971
--- NOTE | 2024-12-02 09:39 | PRE.ANES_ITS ---
ASA Classification* ASA Classification ASA Classification: 3 Assessment & Plan Anesthesia* Anesthesia Assessment Anesthesia Assessment: Discussed sedation and/or anesthesia options, risks, benefits, and alternatives with patient/parents/legal guardian/POA. Questions invited. The patient/parents/legal guardian/POA seems to understand and agrees to proceed with anesthesia plan. Reviewed the physical assessment, medical history, allergy history and patient home medications list prior to surgery/procedure/anesthetic and documented any changes. Performed airway and anesthesia risk assessments. Anesthesia Type Anesthesia Type: MAC History Source History Obtained from:: Patient and Chart Anesthesia Focused Assessment* Temperature: 97.7 F Pulse Rate: 66 Blood Pressure: 145/84 Respiratory Rate: 16 Pulse Ox: 98 Oxygen Delivery Method: Room Air Airway Assessment Mouth opens: >3 cm Mallampati Score: IV Teeth Condition: Missing (Patient is missing several teeth. Rest are tight.) Neck Range of motion (ROM): Limited ROM (Severe Restriction) Labs Anesthesia Preop lab: CBC WBC, (4.4-11.0) 7.4 K/mm3 09/21/24, 14: RBC, (4.2-5.4) 4.10 M/mm3 L 09/21/24, 14:21 Hgb, (12.0-15.0) 13.1 g/dL 09/21/24, 14: Hct, (37-47) 38.7 % 09/21/24, 14:21 Plt Count, (150-450) 306 K/mm3 09/21/24, 14:21 CHEMISTRY Potassium, (3.3-5.1) 3.9 mmol/L 09/07/24, 06:33 Sodium, (133-145) 140 mmol/L 09/07/24, 06:33 Magnesium, (1.5-2.2) 1.9 mg/dL 09/06/24, 05:31 Phosphorus, (2.7-4.5) 3.4 mg/dL 09/06/24, 05:31 BUN, (4-19) 7 mg/dL 09/07/24, 06:33 Creatinine, (0.70-1.20) 0.47 mg/dL L 09/07/24, 06:33 Glucose, (70-99) 107 mg/dL H 09/07/24, 06:33 TSH, (0.300-4.200) 2.270 uIU/mL 09/06/24, 05:31 COAG PT, (11.7-14.9) 13.6 SECONDS 09/05/24, 08:16 Pre-Assessment Diagnosis/Proposed Procedure Planned Operative Procedure(s): EGD Anesthesia History 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 When Was Last Pacemaker Check QUESTION #4 FULL TEXT: You/Your Family Experience fever (hyperthermia) with Anesthesia Last Oral Intake Last Oral intake: Last Oral Intake NPO since 22:00 12/02/24 08:58 Meds taken in AM with sips of Yes 12/02/24 08:58 water? Meds patient instructed to take am of surgery Any additional information?: Yes Meds taken in AM with sips of water?: Yes Meds patient instructed to take am of surgery: Levothyroxine PONV PONV - benefits specialist recruiter: PONV - benefits specialist recruiter Female Yes 11/29/24 16:37 HX of Motion Sickness No 11/29/24 16:37 HX of N/V After Surgery No 11/29/24 16:37 Non-Smoker Yes 11/29/24 16:37 Duration of Surgery greater No 11/29/24 16:37 than 60 minutes Number of Risk Factors 2 11/29/24 16:37 PONV Score Moderate Risk 11/29/24 16:37 Height & Weight Height & Weight: Anesthesia: Height & Weight Height 5 ft 12/02/24 08:58 Weight: 68.039 kg 12/02/24 08:58 Body Mass Index (BMI) 29.2 12/02/24 08:58 Respiratory Assessment Respiratory Assessment - benefits specialist recruiter: Respiratory Tract Infection Hx - benefits specialist recruiter Hx Respiratory Tract Infection No 11/29/24 16:37 STOP Sleep Apnea STOP Sleep Apnea - benefits specialist recruiter: STOP Sleep Apnea - benefits specialist recruiter Hx Hypertension No 11/29/24 16:37 Hx Sleep Apnea Yes 11/29/24 16:37 CPAP No 11/29/24 16:37 BIPAP No 11/29/24 16:37 Do you snore loudly (louder than talking or can be heard Do you often feel tired/ fatigued/ sleepy during daytime? Has anyone observed you stop breathing during sleep? STOP Results Positive 11/29/24 16:37 QUESTION #5 FULL TEXT : Do you snore loudly (louder than talking or can be heard through closed doors)? 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 Specify any problems Hx of Preganancy in last 3 No 11/29/24 16:37 Months Nurse Filling Out Transfusion [id number] 11/29/24 16:37 & Questions: Date: 11/29/24 11/29/24 16:37 Time: 16:42 11/29/24 16:37 Patient unable to answer at this time (ie. confused, unrespo /Reproduction History /Reproductive History - benefits specialist recruiter: /Reproductive Hx- benefits specialist recruiter Hx Now No 11/29/24 16:37 Gestational Age (in weeks): EDC: Hx Hx Para Hx Section SAB No 11/29/24 16:37 Active Medications Active Medications: Current Medications Generic Name Dose Route Start Last Admin Trade Name Freq PRN Reason Stop Dose Admin Lactated Ringer's 1,000 mls @ 15 mls/hr 12/02/24 08:45 12/02/24 09:27 IV 15 mls/hr .Q48H STEOV Administration PFSH Medical History Post-menopausal Alcohol use Thyroid disease Uses wheelchair History of DVT (deep vein thrombosis) Dietary restriction Difficulty swallowing History of GI bleed Gastric reflux Non-smoker Sleep apnea Chronic cough Cardiology follow-up encounter History of pacemaker Diarrhea Nausea Intellectual developmental disorder, severe Urinary incontinence History of aspiration pneumonia History of airway aspiration Health care maintenance Anxiety and depression History of pulmonary embolism Gastroenteritis neurostimulater Pacemaker metal gavi rt leg Hyperlipidemia Insomnia Fecal impaction Barretts esophagus Pulmonary embolism Vitamin D deficiency GERD (gastroesophageal reflux disease) Depression Hypothyroidism Cerebral palsy Home Medications ?Medication ?Instructions ?Recorded ?Last Taken ?Type loratadine 10 mg tablet 10 mg PO DAILY@0800 ALLERGIE S 09/10/14 01/02/22 History mirtazapine 7.5 mg tablet 7.5 mg PO QHS@1999 DEPRESSIO N 05/19/17 01/01/22 Hi story azelastine 0.05 % eye drops 0.05 drp EACH EYE BID@0808/08/18 01/02/22 History DRY EYES apixaban 5 mg tablet 5 mg PO BID BLOOD THINNER 11/29/24 History ascorbic acid (vitamin C) 500 mg 500 mg PO DAILY@0800 SUPPLEMENT 01/02/22 01/02/22 History tablet carboxymethylcellulose sodium 0.5 1 drp EACH EYE TID 1 01/02/22 History % eye drops (Refresh Tears) cholecalciferol (vitamin D3) 25 25 mcg PO DAILY@0800 S UPPLEMENT 01/02/22 01/02/22 History mcg (1,000 unit) chewable tablet (Vitamin D3) ferrous gluconate 324 mg (38 mg 324 mg PO DAILY@0800 S UPPLEMENT 01/02/22 01/02/22 History iron) tablet levothyroxine 50 mcg tablet 50 mcg PO DAILY@0600 THYRO ID 01/02/22 12/02/24 History GENERAL PROTECTION LOTION 1 dose topical 4X/DAY PRN sk in 07/31/23 Unknown History protection acetaminophen 160 mg/5 mL oral 500 mg PO Q6H PRN fever or pain 07/31/23 Unknown History elixir bisacodyl 10 mg/30 mL enema (Fleet 10 mg [place] DAILY PRN constipation 07/31/23 Unknown History Bisacodyl) bismuth subsalicylate 525 mg/15 mL 1,050 mg PO 4X/DAY PRN PRN diarrhea 07/31/23 Unknown History oral suspension (Pepto-Bismol Max St) carboxymethylcellulose sodium 0.5 1 drp ophthalmic (ey e) 4-6XD PRN 07/31/23 Unknown History % eye drops (Refresh Tears) dry eye(s) citalopram 10 mg tablet 10 mg PO DAILY 07/31/23 Unkn own History citalopram 20 mg tablet 20 mg PO DAILY 07/31/23 Unkn own History ipratropium 0.5 mg-albuterol 3 mg 3 ml inhalation Q4H PRN shortness 07/31/23 Unknown History (2.5 mg base)/3 mL nebulization of breath or wheezing soln pantoprazole 40 mg tablet,delayed 40 mg PO BID #180 ta bs 10/20/24 Unknown Rx release docusate sodium 100 mg capsule 100 mg PO Q OTHER DAY # 15 caps 11/25/24 Unknown Rx Allergy/AdvReac Type Severity Reaction Status Date / Time amoxicillin trihydrate (From AdvReac Unknown Verified 12/02/24 08:57 Augmentin) potassium clavulanate (From AdvReac Unknown Verified 12/02/24 08:57 Augmentin) Family History Father Pulmonary embolism Alcoholism Mother CVA (cerebral vascular accident) Surgical History History of esophagogastroduodenoscopy (EGD) History of permanent cardiac pacemaker placement History of brain surgery History of surgery on lower extremity Hx of cataract removal with insertion of prosthetic lens Social History Smoking Status: Never smoker alcohol intake: current alcohol intake frequency: 0-2 drinks per day substance use type: does not use and other details: THC LAST USED ON 07/20/23 seatbelt use: always Review of Systems (Anesthesia) ROS Narrative System reviewed and no additional complaints, except as documented.
--- NOTE | 2024-12-02 10:10 | OP.EGD_ITS ---
Patient Name: Tonya Fletcher Procedure Date: 12/02/2024 9:36 AM Date of : 1960 Age: 64 Procedure: Upper GI endoscopy Indications: Follow-up of Arias's esophagus Providers: Stalin Kuhn DO Patient Profile: This is a 64 year old female. Refer to note in patient chart for documentation of history and physical. Patient has symptoms of acute heartburn. Complications: No immediate complications. Procedure: Pre-Anesthesia Assessment: - Prior to the procedure, a History and Physical was performed, and patient medications and allergies were reviewed. The patient is competent. The risks and benefits of the procedure and the sedation options and risks were discussed with the patient. All questions were answered and informed consent was obtained. Patient identification and proposed procedure were verified by the physician in the pre-procedure area. Mental Status Examination: alert and oriented. Airway Examination: normal oropharyngeal airway and neck mobility. Respiratory Examination: clear to auscultation. CV Examination: normal. Prophylactic Antibiotics: The patient does not require prophylactic antibiotics. Prior Anticoagulants: The patient has taken no anticoagulant or antiplatelet agents except for NSAID medication. ASA Grade Assessment: II - A patient with mild systemic disease. After reviewing the risks and benefits, the patient was deemed in satisfactory condition to undergo the procedure. The anesthesia plan was to use monitored anesthesia care (MAC). Immediately prior to administration of medications, the patient was re-assessed for adequacy to receive sedatives. The heart rate, respiratory rate, oxygen saturations, blood pressure, adequacy of pulmonary ventilation, and response to care were monitored throughout the procedure. The physical status of the patient was re-assessed after the procedure. After obtaining informed consent, the endoscope was passed under direct vision. Throughout the procedure, the patient's blood pressure, pulse, and oxygen saturations were monitored continuously. The Endoscope was introduced through the mouth, and advanced to the second part of duodenum. The upper GI endoscopy was accomplished without difficulty. The patient tolerated the procedure well. Scope In: 9:55:28 AM Scope Out: 9:59:20 AM Total Procedure Duration Time 0 hours 3 minutes 52 seconds Findings: There were esophageal mucosal changes secondary to established long-segment Arias's disease present in the lower third of the esophagus. The maximum longitudinal extent of these mucosal changes was 10 cm in length. Mucosa was biopsied with a cold forceps for histology in a targeted manner at intervals of 1 cm in the lower third of the esophagus. One specimen bottle was sent to pathology. Verification of patient identification for the specimen was done. Estimated blood loss was minimal. A medium-sized hiatal hernia was present. Impression: - No specimens collected. - Normal examination. Recommendation: - Discharge patient to home [Means]. - Resume previous diet - advance as tolerated to resume previous diet. - Continue present medications. Stalin Kuhn, 12/02/2024 10:10:18 AM This report has been signed electronically. Number of Addenda: 0 Note Initiated On: 12/02/2024 9:36 AM
--- NOTE | 2024-12-02 10:10 | OP.PROVAT_ITS ---
12/02/2024 Michelle Marroquin MD [address] [place] [address] [place] [address] Re : Upper GI endoscopy procedure for Tonya Fletcher Dear Dr. Marroquin This procedure was performed on November. My impressions and recommendations are as follows: Impressions : - No specimens collected. - Normal examination. Recommendations : - Discharge patient to home [Means]. - Resume previous diet - advance as tolerated to resume previous diet. - Continue present medications. My findings are described in the full procedure note, which is enclosed. If I can be of further assistance, please feel free to contact me at . Sincerely, Stalin Kuhn, 12/02/2024 10:10:18 AM This report has been signed electronically.
--- NOTE | 2024-12-02 10:10 | PCM.POST.ANE ---
Anesthesia: Postop Eval I Current Vital Signs Temperature: 97.7 F Pulse Rate: 62 Blood Pressure: 101/66 Respiratory Rate: 16 Pulse Ox: 96 Oxygen Delivery Method: Room Air Assessment Airway patent: Yes Spontaneous unlabored respirations: Yes Mental status: Asleep nausea: No Vomiting: No Anesthesia Complication: No Fluid Hydration Crystalloid volume administer (ml): 300 Total IV fluid infused: 300 Progress Note Anesthesia document: Postop Eval 1 completed: Yes
--- NOTE | 2024-12-02 10:47 | PCM.POSTANE2 ---
Anesthesia Postop Eval I Sum Postop Eval Completion status Anesthesia document: Postop Eval 1 completed: Yes Anesthesia Postop Eval I Summary Anesthesia Postop Eval I Summary: Anesthesia Postop Eval I: Assessment Summary Airway patent Yes 12/02/24 10:11 [email or web address] Spontaneous unlabored Yes 12/02/24 10:11 [email or web address] respirations Mental status Asleep 12/02/24 10:11 [email or web address] nausea No 12/02/24 10:11 [email or web address] Vomiting No 12/02/24 10:11 [email or web address] Anesthesia Postop Eval I: Fluid Summary Crystalloid volume administer 300 12/02/24 10:11 [email or web address] (ml) Colloids volume administered ( ml) Blood Product volume administered (ml) Total IV fluid infused 300 12/02/24 10:11 [email or web address] Anesthesia Postop Eval I: Summary Notes Anesthesia Complication No 12/02/24 10:11 [email or web address] Anesthesia Complication Comment: Post-operative progress note Anesthesia: Postop Eval II Evaluation Mental status: Awake and Calm Pain Level: 0 nausea: No Vomiting: No Complications Anesthesia Complication: No
== END 2024-12-02 11:10 | disposition home or self-care (01) ==
LOC: EN 08:29 → AC 08:30
PROVIDERS: PCP Internal Medicine; Referring Provider Internal Medicine; Visit Provider Internal Medicine Gastroenterology
PROC: 0DJ08ZZ Inspection of Upper Intestinal Tract, Via Natural or Artificial Opening Endoscopic (ICD-10-PCS; CPT 43235; principal; 2024-12-02 09:25)
DX: K92.2 Gastrointestinal hemorrhage, unspecified (principal); E78.5 Hyperlipidemia, unspecified; Z86.718 Personal history of other venous thrombosis and embolism; Z86.711 Personal history of pulmonary embolism; K22.70 Barrett's esophagus without dysplasia; K21.9 Gastro-esophageal reflux disease without esophagitis; Z95.0 Presence of cardiac pacemaker; F32.A Depression, unspecified; Z79.899 Other long term (current) drug therapy; Z79.01 Long term (current) use of anticoagulants; E03.9 Hypothyroidism, unspecified; Z79.890 Hormone replacement therapy
CPT/HCPCS: 43239; 88305; J2405